=== PATIENT | female | born 1960 | race Caucasian/White ===

== ENCOUNTER 2023-07-30 11:46 | Outpatient (OUT) | payer BC, SELFPAY ==
--- NOTE | 2023-07-30 11:55 | XR_ITS ---
The [address] [address] Patient Name: CAMERON US MRN: [id number] date: 1960 Sex: F Assigned Patient Location: [facility] Current Patient Location: [facility] Accession/Order Number: [id number] Exam Date: 07/30/2023 11:58 Report Date: 07/30/2023 12:31 At the request of: HE PUAL Procedure: XR lumbar spine 2-3V EXAMINATION: XR lumbar spine 2-3V HISTORY: right-sided low back pain without sciatica M54.50 COMPARISON: No relevant comparison available. FINDINGS: BONES: No acute fracture or spondylolisthesis. Rotatory levocurvature centered at L3. Moderate degenerative spondylosis and facet osteoarthropathy DISC SPACES: Multilevel disc space narrowing with endplate sclerosis and vacuum disks PARASPINOUS: Negative. No paraspinous abnormality is seen. OTHER: Negative. XR/XR lumbar spine 2-3V IMPRESSION: Moderate diffuse degenerative changes with rotatory levocurvature Electronically authenticated by: GYPSY KING Date: 07/30/2023 12:31
== END 2023-07-30 11:47 | disposition home or self-care (01) ==
LOC: RAD 11:50
PROVIDERS: PCP Family Medicine; Visit Provider Family Medicine
DX: M54.50 Low back pain, unspecified (principal); M51.36 Other intervertebral disc degeneration, lumbar region
CPT/HCPCS: 72100

== ENCOUNTER 2023-08-03 13:26 | Outpatient (OUT) | payer BC, SELFPAY ==
--- OUTSIDE RECORDS SUMMARY | 2023-08-03 13:43 | XMS_ITS | CCD ---
Author Name Unknown Address [address] [place] [address] Organization [facility] Care Team Providers Care Rn Otolaryngology Name Role Phone Najma Ken Primary Care Provider [phone] Caden Baldwin Primary Care Provider Caden Baldwin Primary Care Provider NAJMA KEN Referring Unavailabl e NAJMA KEN Primary Care Unavailabl e NAJMA KEN Referring Unavailabl e CADEN BALDWIN Primary Care Unavailabl e Caden Baldwin Primary Care Provider Caden Baldwin MD Primary Care Provider NAJMA KEN Referring Unavailabl e CADEN BALDWIN Primary Care Unavailabl e MAO SHEPHERD O Referring Unavailable CADEN BALDWIN Primary Care Unavailabl e CADEN BALDWIN Primary Care Unavailabl e HEENA JOHN Attending Unavailable PAY, DR FERRER Admitting Unavailable PAY, DR FERRER Attending Unavailable PAY, DR FERRER Consulting Unavailable PALMER GREGORIO Consulting Unavailable FURLONG, DR LOUIE Hawkins Primary Care Unavailable MISC, DR IBRAHIM Consulting Unavailable JODY, MOHINDER Admitting Unavailable JODY, MOHINDER Attending Unavailable FURLONG, DR LOUIE Hawkins Admitting Unavailable FURLONG, DR LOUIE Hawkins Attending Unavailable FURLONG, DR LOUIE Hawkins Consulting Unavailable ASHLEE ESCUDERO Consulting Unavailable JODY, MOHINDER Primary Care Unavailable JODY, MOHINDER Admitting Unavailable JODY, MOHINDER Attending Unavailable JODY, MOHINDER Consulting Unavailable KAREN, DR IBRAHIM Admitting Unavailable BEVERLY, DR LOUIE Hawkins Primary Care Unavailable MIS, DR IBRAHIM Attending Unavailable MISC, DR IBRAHIM Consulting Unavailable DEEPTI, DR BARRON Strauss Consulting Unavailable TIMMIS, DR LARA Admitting Unavailable FURLOISIDORO, DR LOUIE Hawkins Primary Care Unavailable TIMMIAshley, DR LARA Attending Unavailable TIMMIS, DR LARA Consulting Unavailable DEEPTI, DR BARRON Strauss Consulting Unavailable MOHINDER VERA Consulting Unavailable MORTEZALOISIDORO, DR LOUIE Hawkins Primary Care Unavailable JAZMINE DODD Admitting Unavailable KHURRAM FULTON Consulting Unavailable JAZMINE DODD Attending Unavailable Gypsy Muñoz Consulting Unavailable Louie Paul DO Primary Care Provider LOUIE PAUL Attending Unavailable LOUIE PAUL Referring Unavailable LOUIE PAUL Primary Care Unavailable Allergies Allergy Classification Reported Allergen(s) Allergy Type Date of Onset Reaction(s) Facility Calcium Channel Blockers (1 source) dilTIAZem Drug Allergy 10-12-2019 Itching, Swelling, Rash [facility] (3 sources) dilTIAZem Drug Allergy 10-12-2019 Itching, Swelling, Rash [facility]- [place], [place] Medications Current Medications Medication Drug Class(es) Dates Sig (Normalized) Sig (Original) acetaminophen 325 mg oral tablet (8 sources) Start: 09-27-2021 take 2 tablets by mouth every four hours as needed acetaminophen (TYLENOL) 325 mg tablet Take 2 tablets (650 mg total) by mouth every 4 (four) hours as needed (Temperature greater than 38.3 C). 30 tablet 0 09/27/2021 Active Start: 10-06-2019 acetaminophen (TYLENOL) tablet 650 mg Start: 08-27-2019 acetaminophen (TYLENOL) tablet 650 mg Start: 08-25-2019 End: 08-28-2019 650 mg, Oral, EVERY 4 HOURS PRN, Pain Mild (1-3), Pain Mild (1- 3) or Fever greater than 100.5 F (38 C), Starting [facility] 08/25/19 at 1749 Maximum dose of acetaminophen is 4000 mg from all sources in 24 hours. Start: 08-25-2019 End: 08-25-2019 acetaminophen (TYLENOL) tabl et 1,000 mg Start: 08-05-2019 650 mg, Oral, EVERY 4 HOURS PRN, Pain Mild (1-3), Pain Mild (1-3) or Fever greater than 100.5 F (38 C), Starting 08/05/19 at 1658 Maximum dose of acetaminophen is 4000 mg from all sources in 24 hours. albuterol 0.83 mg/ml inhalation solution (11 sources) beta2-Adrenergic Agonist Start: 05-11-2023 take 3 mL by inhalation every six hours as needed for wheezing albuterol (PROVENTIL,VENTOLIN) 2.5 mg /3 mL (0.083 %) nebulizer solution Indications: Chronic respiratory failure with hypoxia ([facility]) Inhale 3 mL (2.5 mg total) by nebulization every 6 (six) hours as needed for wheezing. 75 mL 2 05/11/2023 Active Start: 09-27-2021 take 2 puff(s) by in halation four times daily albuterol (PROVENTIL HFA;VENTOLIN HFA) 90 mcg/actuation inhaler Indications: Acute exacerbation of chronic obstructive pulmonary disease (COPD) ([facility]) Inhale 2 puffs 4 (four) times a day. 18 g 11 09/27/2021 Active Start: 10-06-2019 albuterol (PRO VENTIL) nebulizer solution 2.5 mg Start: 08-08-2019 albuterol (PRO VENTIL) nebulizer solution 2.5 mg Start: 06-01-2019 End: 08-10-2019 albuterol (PROVENTIL) (2.5 M G/3ML) 0.083% nebulizer solution Indications: Cough , Moderate persistent asthma with acute exacerbation Take 3 mLs by nebulization every 6 hours as needed for Wheezing 120 each 3 06/01/2019 08/10/2019 Discontinued (Stop Taking at Discharge) albuterol sulfat e HFA 108 (90 Base) MCG/ACT inhaler Inhale 2 puffs into the lungs 0 Active albuterol 0.833 mg/ml / ipratropium bromide 0.167 mg/ml inhalation solution (9 sources) Anticholinergic, beta2-Adrenergic Agonist Start: 11-22-2020 ipratropium-albuterol (DUONEB) nebulizer solution 1 ampule Start: 10-05-2019 ipratropium-al buterol (DUONEB) nebulizer solution 1 ampule Start: 08-25-2019 End: 08-25-2019 ipratropium-albuterol (DUONE B) nebulizer solution 1 ampule Start: 08-10-2019 End: 08-29-2019 take 3 mL by inhalation every four hours 3 mL, Inhalation, EVERY 4 HOURS WHILE AWAKE, First dose on [place] 08/25/19 at 2000 Start: 08-05-2019 End: 08-07-2019 ipratropium-albuterol (DUONE B) nebulizer solution 1 ampule albuterol sulfate HFA 108 (90 Base) MCG/ACT inhaler (7 sources) take 2 puff(s) by inhalation every six hours as needed albuterol sulfate HFA 108 (90 Base) MCG/ACT inhaler Inhale 2 puffs into the lungs every 6 hours as needed 0 Active apixaban 5 mg oral tablet (15 sources) Factor Xa Inhibitor Start: take 1 tablet by mouth twice daily ELIQUIS 5 mg tablet Indications: Paroxysmal atrial fibrillation (CMS-HCC) TAKE 1 TABLET BY MOUTH TWICE A DAY 180 tablet 1 04/16/2023 Active Start: 10-01-2020 take 1 tablet by terrie th twice daily ELIQUIS 5 MG TABS tablet TAKE 1 TABLET BY MOUTH TWICE A DAY 180 tablet 1 10/01/2020 Active Start: 01-17-2020 take 1 tablet by terrie th twice daily ELIQUIS 5 MG TABS tablet TAKE 1 TABLET BY MOUTH TWICE A DAY 180 tablet 1 01/17/2020 Active Start: 07-20-2019 take 1 tablet by terrie th twice daily apixaban (ELIQUIS) 5 MG TABS tablet Take 1 tablet by mouth 2 times daily 180 tablet 1 07/20/2019 Active Start: 02-01-2019 take 1 tablet by terrie th twice daily apixaban (ELIQUIS) 5 MG TABS tablet Take 1 tablet by mouth 2 times daily 180 tablet 1 02/01/2019 Active ascorbic acid 60 mg / beta carotene 5000 unt / copper sulfate 40 mg / dl-alpha tocopheryl acetate 30 unt / sodium selenite 0.04 mg / zinc oxide 40 mg oral tablet (2 sources) Vitamin C take 1 tablet by mouth once daily Multiple Vitamins-Minerals (THERAPEUTIC MULTIVITAMIN-MINERALS) tablet Take 1 tablet by mouth daily 0 Active azithromycin 250 mg oral tablet (1 source) Macrolide Antimicrobial Start: 2019 End: 2019 azithromycin (ZITHROMAX) 250 MG tablet Indications: COPD exacerbation (HCC) Take 2 tablets (500 mg) on Day 1, followed by 1 tablet (250 mg) once daily on Days 2 through 5. 1 packet 0 11/02/2019 11/12/2019 Active benzonatate 200 mg oral capsule (6 sources) Non-narcotic Antitussive Start: 2019 End: 2019 take 1 capsule by mouth three times daily benzonatate (TESSALON) 200 MG capsule Take 1 capsule by mouth 3 times daily 90 capsule 0 10/08/2019 11/07/2019 Active Start: 10-05-2019 benzonatate (T ESSALON) capsule 200 mg Start: 08-26-2019 End: 09-05-2019 take 1 capsule by mouth three times daily as needed for cough benzonatate (TESSALON) 100 MG capsule Take 1 capsule by mouth 3 times daily as needed for Cough 60 capsule 0 08/29/2019 09/05/2019 Active Start: 08-06-2019 End: 08-09-2019 benzonatate (TESSALON) capsu le 200 mg 60 actuat budesonide 0.16 mg/actuat / formoterol fumarate 0.0045 mg/actuat metered dose inhaler (10 sources) Corticosteroid, beta2-Adrenergic Agonist Start: 06-01-2019 End: 08-10-2019 take 2 puff(s) by inhalation twice daily budesonide-formoterol (SYMBICORT) 160-4.5 MCG/ACT AERO Indications: Cough Inhale 2 puffs into the lungs 2 times daily 3 Inhaler 1 08/10/2019 Active 120 actuat budesonide 0.16 mg/actuat / formoterol fumarate 0.0048 mg/actuat / glycopyrrolate 0.009 mg/actuat metered dose inhaler (4 sources) Corticosteroid, beta2-Adrenergic Agonist Start: 07-19-2023 take 2 puff(s) by inhalation at bedtime krohtpxxjc-mvayfmqc-rvo moterol (BREZTRI AEROSPHERE) 160-9-4.8 mcg/actuation HFA aerosol inhaler Indications: Acute exacerbation of chronic obstructive pulmonary disease (COPD) ([facility]) INHALE 2 PUFFS IN THE MORNING AND AT BEDTIME 10.7 g 0 07/19/2023 Active Start: 03-31-2023 End: 07-19-2023 take 2 puff(s) by inhalation at bedtime dbvahpxovu-xpkensnp-qdlcioqrsq (BREZTRI AEROSPHERE) 160-9-4.8 mcg/actuation HFA aerosol inhaler Indications: Acute exacerbation of chronic obstructive pulmonary disease (COPD) ([facility]) Inhale 2 puffs in the morning and at bedtime. 17.7 g 1 03/31/2023 07/19/2023 Discontinued cefuroxime 250 mg oral tablet (1 source) Cephalosporin Antibacterial Start: 08-10-2019 End: 08-15-2019 take 1 tablet by mouth twice daily cefUROXime (CEFTIN) 250 MG tablet Take 1 tablet by mouth 2 times daily for 5 days 10 tablet 0 08/10/2019 08/15/2019 Active cholecalciferol 0.125 mg oral tablet (3 sources) Vitamin D Start: 12-22-2022 take 1 tablet by mouth once in the morning cholecalciferol, vitamin D3, 5,000 units tablet Indications: Vitamin D deficiency Take 1 tablet (5,000 Units total) by mouth in the morning. 100 tablet 0 12/22/2022 Active diazePAM 5 mg oral tablet (1 source) Benzodiazepine Start: 03-21-2020 End: 03-30-2020 diazePAM (VALIUM) 5 MG tablet Indications: Shoulder pain, unspecified chronicity, unspecified laterality Take one tablet one hour prior to testing 1 tablet 0 03/21/2020 03/30/2020 Active diclofenac sodium 0.01 mg/mg topical gel (3 sources) Nonsteroidal Anti-inflammatory Drug Start: 03-14-2020 End: 05-10-2020 diclofenac sodium (VOLTAREN) 1 % GEL Indications: Osteoarthritis of right acromioclavicular joint APPLY 2 G TOPICALLY 4 TIMES DAILY 300 g 0 04/10/2020 Active 24 hr dilTIAZem hydrochloride 120 mg extended release oral capsule (15 sources) Calcium Channel Royer Start: 05-11-2023 take 1 capsule by mouth every twenty-four hours in the morning dilTIAZem CD (CARDIZEM CD) 120 mg 24 hr capsule Indications: Paroxysmal atrial fibrillation ([facility]) Take 1 capsule (120 mg total) by mouth in the morning. 90 capsule 1 05/11/2023 Active Start: 10-08-2020 take 1 capsule by mo uth once daily dilTIAZem (CARDIZEM CD) 120 MG extended release capsule TAKE 1 CAPSULE BY MOUTH EVERY DAY 90 capsule 0 10/08/2020 Active Start: 04-12-2020 take 1 capsule by mo uth once daily dilTIAZem (CARDIZEM CD) 120 MG extended release capsule Take 1 capsule by mouth daily 30 capsule 2 04/12/2020 Active Start: 11-28-2019 [facility] dilTIAZem (CARDIZEM) 30 MG tablet Indications: Cough , Moderate persistent asthma with acute exacerbation TAKE 1 TABLET BY MOUTH FOUR TIMES A DAY 360 tablet 1 11/28/2019 Active Start: 08-26-2019 dilTIAZem (CAR DIZEM) tablet 60 mg Start: 08-06-2019 End: 08-26-2019 take 1 tablet by mouth four times daily dilTIAZem (CARDIZEM) 30 MG tablet Indications: Cough , Moderate persistent asthma with acute exacerbation Take 1 tablet by mouth 4 times daily 120 tablet 3 08/10/2019 Active doxycycline hyclate 100 mg oral tablet (1 source) Tetracycline-class Drug Start: 09-15-2019 End: 09-25-2019 take 1 tablet by mouth twice daily doxycycline hyclate (VIBRA-TABS) 100 MG tablet Take 1 tablet by mouth 2 times daily for 10 days 20 tablet 0 09/15/2019 09/25/2019 Active DULoxetine 20 mg delayed release oral capsule (16 sources) Serotonin and Norepinephrine Reuptake Inhibitor Start: 04-27-2023 take 1 capsule by mouth once daily DULoxetine (CYMBALTA) 20 mg capsule Indications: Fibromyalgia TAKE 1 CAPSULE BY MOUTH EVERY NIGHT 90 capsule 1 04/27/2023 Active Start: 11-09-2020 take 1 capsule by mo [facility] once daily DULoxetine (CYMBALTA) 20 MG extended release capsule TAKE 1 CAPSULE BY MOUTH EVERY DAY AT NIGHT 90 capsule 0 11/09/2020 Active Start: 02-21-2020 take 1 capsule by mo uth once daily DULoxetine (CYMBALTA) 20 MG extended release capsule TAKE 1 CAPSULE BY MOUTH EVERY DAY AT NIGHT 90 capsule 0 02/21/2020 Active Start: 10-21-2019 take 1 capsule by mo uth once daily DULoxetine (CYMBALTA) 20 MG extended release capsule Take 1 capsule by mouth nightly 30 capsule 1 10/21/2019 Active Start: 03-18-2019 End: 08-05-2019 take 1 capsule by mouth once daily 20 mg, Oral, NIGHTLY, First dose on Thu10/05/19 at 2100 Do not crush or break. May add contents of capsule to apple juice or apple sauce, but not chocolate. famotidine 20 mg oral tablet (2 sources) Histamine-2 Receptor Antagonist Start: 10-06-2019 famotidine (PEPCID) tablet 20 mg Start: 08-25-2019 take 20 mg by mouth twice nabil y 20 mg, Oral, 2 TIMES DAILY, First dose on Thu08/25/19 at 2100 fluticasone propionate 0.05 mg/actuat metered dose nasal spray (4 sources) Corticosteroid Start: 01-15-2023 End: 07-15-2023 take 1 spray(s) nasal route in the morning fluticasone propionate (FLONASE) 50 mcg/actuation nasal spray Indications: Chronic rhinitis SPRAY 1 SPRAY INTO EACH NOSTRIL IN THE MORNING 48 mL 1 07/15/2023 Active gabapentin 300 mg oral capsule (5 sources) Anti-epileptic Agent Start: 10-17-2020 End: 01-15-2021 take 1 capsule by mouth three times daily gabapentin (NEURONTIN) 300 MG capsule Take 1 capsule by mouth 3 times daily for 90 days. 90 capsule 2 10/17/2020 01/15/2021 Active Start: 10-08-2019 End: 11-07-2019 take 2 capsules by mouth three times daily gabapentin (NEURONTIN) 100 MG capsule Take 2 capsules by mouth 3 times daily for 30 days. 90 capsule 0 10/08/2019 11/07/2019 Active Start: 10-07-2019 gabapentin (NE URONTIN) capsule 200 mg Start: 10-06-2019 End: 10-07-2019 take 100 mg by mouth three times daily 100 mg, Oral, 3 TIMES DAILY, First dose on [place] 10/06/19 at 1400 12 hr guaiFENesin 600 mg extended release oral tablet (8 sources) Start: 10-05-2019 take 1200 mg by mouth twice daily 1,200 mg, Oral, 2 TIMES DAILY, First dose on Thu10/05/19 at 2100 Do not crush or break. Start: 08-25-2019 End: 08-26-2019 take 1200 mg by mouth twice daily 1,200 mg, Oral, 2 TIMES DAILY, First dose on Thu08/25/19 at 2100 Do not crush or break. Start: 08-10-2019 take 2 tablets by mo uth twice daily guaiFENesin (MUCINEX) 600 MG extended release tablet Take 2 tablets by mouth 2 times daily 20 tablet 1 08/10/2019 Active Start: 08-09-2019 guaiFENesin (M UCINEX) extended release tablet 1,200 mg Handicap Placard MISC (1 source) Start: 08-08-[address] MISC by Does not apply route 1 each 0 08/08/2020 Active homatropine methylbromide 0.3 mg/ml / HYDROcodone bitartrate 1 mg/ml oral solution (6 sources) Opioid Agonist, Cholinergic Muscarinic Agonist Start: 10-05-2019 HYDROcodone-homatrop ine (HYCODAN) 5-1.5 MG/5ML syrup 5 mL Start: 08-29-2019 End: 09-05-2019 HYDROcodone-homatropine (HYC ODAN) 5-1.5 MG/5ML syrup Indications: COPD with acute exacerbation (HCC) Take 5 mLs by mouth every 4 hours as needed (cough) for up to 7 days. 200 mL 0 08/29/2019 09/05/2019 Active Start: 08-25-2019 HYDROcodone-ho matropine (HYCODAN) 5-1.5 MG/5ML syrup 5 mL Start: 08-10-2019 End: 08-13-2019 HYDROcodone-homatropine (HYC ODAN) 5-1.5 MG/5ML syrup Indications: COPD exacerbation (HCC) Take 5 mLs by mouth every 4 hours as needed (120) for up to 3 days. 60 mL 0 08/10/2019 08/13/2019 Active Start: 08-06-2019 End: 08-08-2019 HYDROcodone-homatropine (HYC ODAN) 5-1.5 MG/5ML syrup 5 mL ipratropium bromide 0.2 mg/ml inhalant solution (1 source) Anticholinergic Start: 08-26-2019 ipratropium (ATROVENT) 0.02 % nebulizer solution 0.5 mg Lactobacillus acidophilus (3 sources) take 1 tablet by mouth once daily Lactobacillus acidophilus (PROBIOTIC ACIDOPHILUS ORAL) Take 1 tablet by mouth daily. 0 Active levalbuterol 0.417 mg/ml inhalation solution (6 sources) beta2-Adrenergic Agonist Start: 08-31-2020 levalbuterol (XOPENEX) 1.25 MG/3ML nebulizer solution Take 3 mLs by nebulization every 4 hours as needed for Wheezing 90 mL 1 08/31/2020 Active Start: 08-26-2019 levalbuterol ( XOPENEX) 1.25 MG/0.5ML nebulizer solution 1.25 mg 0 08/26/2019 Active levothyroxine sodium 0.125 mg oral tablet (16 sources) l-Thyroxine Start: 12-11-2022 take 1 tablet by mouth once daily levothyroxine (SYNTHROID, LEVOTHROID) 125 MCG tablet Indications: Hypothyroidism, unspecified TAKE 1 TABLET BY MOUTH EVERY DAY 90 tablet 1 12/11/2022 Active Start: 06-12-2020 take 1 tablet by terrie th once daily levothyroxine (SYNTHROID) 125 MCG tablet TAKE 1 TABLET BY MOUTH EVERY DAY 90 tablet 1 06/12/2020 Active Start: 11-25-2019 take 1 tablet by terrie th once daily levothyroxine (SYNTHROID) 125 MCG tablet Take 1 tablet by mouth Daily 90 tablet 1 11/25/2019 Active Start: 10-08-2019 levothyroxine (SYNTHROID) tablet 100 mcg Start: 05-12-2019 End: 10-07-2019 take 1 tablet by mouth once daily levothyroxine (SYNTHROID) 125 MCG tablet Take 1 tablet by mouth Daily 30 tablet 5 05/12/2019 Active Start: 11-24-2018 take 1 tablet by terrie th once daily in the morning levothyroxine (SYNTHROID) 100 MCG tablet TAKE 1 TABLET BY MOUTH EVERY DAY ON EMPTY STOMACH IN THE MORNING 1 11/24/2018 Active 100 ml magnesium sulfate 10 mg/ml injection (2 sources) Start: 08-27-2019 magnesium sulf ate 1 g in dextrose 5% 100 mL IVPB Start: 08-05-2019 End: 08-05-2019 magnesium sulfate 1 g in dex trose 5% 100 mL IVPB meclizine hydrochloride 12.5 mg oral tablet (1 source) Antiemetic Start: 04-12-2020 End: 04-22-2020 take 1 tablet by mouth three times daily as needed for nausea meclizine (ANTIVERT) 12.5 MG tablet Take 1 tablet by mouth 3 times daily as needed for Dizziness or Nausea 30 tablet 0 04/12/2020 04/22/2020 Active montelukast 10 mg oral tablet (7 sources) Leukotriene Receptor Antagonist Start: 06-01-2019 take 10 mg by mouth once daily 10 mg, Oral, NIGHTLY, First dose on Thu08/05/19 at 2100 Multiple Vitamins-Minerals (THERAPEUTIC MULTIVITAMIN-MINERA LS) tablet (7 sources) take 1 tablet by mouth once daily Multiple Vitamins-Minerals (THERAPEUTIC MULTIVITAMIN-MINE RALS) tablet Take 1 tablet by mouth daily 0 Active 24 hr nicotine 0.292 mg/hr transdermal system (3 sources) Cholinergic Nicotinic Agonist Start: 06-01-2019 End: 08-25-2019 apply 1 dose transdermal route once daily 1 patch, Transdermal, Administer over 24 Hours, DAILY, First dose on Thu08/05/19 at 1845 Apply new patch to nonhairy, clean, dry skin on the upper body or upper outer arm. Rotate patch sites. Notif y pharmacy if patient or provider prefers patch to be removed at bedtime and replaced in the morning. Haz ardous Medication -- Refer to facility policy for handling and disposal. &n bsp; omeprazole 20 mg delayed release oral capsule (3 sources) Proton Pump Inhibitor take 1 capsule by mouth in the morning omeprazole (PriLOSEC) 20 mg capsule Take 1 capsule (20 mg total) by mouth in the morning. 0 Active oseltamivir 75 mg oral capsule (2 sources) Neuraminidase Inhibitor Start: 08-26-2019 End: 08-31-2019 take 1 capsule by mouth twice daily oseltamivir (TAMIFLU) 75 MG capsule Take 1 capsule by mouth 2 times daily for 1 day 2 capsule 0 08/29/2019 08/30/2019 Active polyethylene glycol 3350 54487 mg powder for oral solution (1 source) Osmotic Laxative Start: 08-27-2019 polyethylene glycol (GLYCOLAX) packet 17 g Potassium Chloride (1 source) Start: 08-27-2019 potassium chloride (KLOR-CON M) extended release tablet 40 mEq predniSONE 20 mg oral tablet (10 sources) Start: 11-22-2020 End: 11-27-2020 take 2 tablets by mouth once daily predniSONE (DELTASONE) 20 MG tablet Take 2 tablets by mouth daily for 5 days 10 tablet 0 11/22/2020 11/27/2020 Active Start: 11-02-2019 End: 11-12-2019 take 4 tablets by mouth once daily predniSONE (DELTASONE) 10 MG tablet Take 4 tablets by mouth once daily for 5 days 20 tablet 0 11/02/2019 11/12/2019 Active Start: 10-07-2019 End: 10-18-2019 take 1 tablet by mouth once daily predniSONE (DELTASONE) 20 MG tablet Take 1 tablet by mouth daily for 10 days 10 tablet 0 10/08/2019 10/18/2019 Active Start: 08-28-2019 End: 09-09-2019 take 1 tablet by mouth once daily predniSONE (DELTASONE) 20 MG tablet Take 1 tablet by mouth daily for 10 days 10 tablet 0 08/30/2019 09/09/2019 Active Start: 08-11-2019 End: 09-16-2019 take 4 tablets by mouth twice daily, then take 2 tablets by mouth twice daily, then take 1 tablet by mouth once daily predniSONE (DELTASONE) 5 MG tablet Take 4 tablets by mouth 2 times daily for 3 days, THEN 2 tablets 2 times daily for 3 days, THEN 1 tablet daily. 66 tablet 0 08/11/2019 08/25/2019 Discontinued (LIST CLEANUP) Start: 08-10-2019 predniSONE (DE LTASONE) tablet 40 mg Start: 08-10-2019 End: 08-20-2019 take 2 tablets by mouth once daily predniSONE (DELTASONE) 20 MG tablet Take 2 tablets by mouth daily for 10 days 20 tablet 0 08/10/2019 08/20/2019 Active Promethazine (1 source) Phenothiazine Start: 08-27-2019 promethazine ( PHENERGAN) tablet 12.5 mg 3 ml sodium chloride 9 mg/ml injection (15 sources) Start: 08-27-2019 sodium chlorid e flush 0.9 % injection 10 mL Start: 08-26-2019 sodium chlorid e nebulizer 0.9 % solution 3 mL Start: 08-25-2019 End: 08-29-2019 10 mL, Intravenous, EVERY 12 HOURS SCHEDULED (2 times per day), First dose on Thu08/25/19 at 2100 Start: 08-25-2019 1 spray, Nasal , PRN, Congestion, Starting Thu08/25/19 at 1801 Start: 08-25-2019 End: 08-27-2019 Intravenous, at 75 mL/hr, CONTINUOUS, Starting Thu08/25/19 at 1830 Start: 08-25-2019 End: 08-25-2019 0.9 % sodium chloride bolus Start: 08-10-2019 End: 08-29-2019 sodium chloride (OCEAN, BABY AYR) 0.65 % nasal spray 1 spray by Nasal route as needed for Congestion 15 mL 0 08/10/2019 08/29/2019 Discontinued (Stop Taking at Discharge) Start: 08-08-2019 End: 08-08-2019 0.9 % sodium chloride infusi on Start: 08-07-2019 sodium chlorid e (OCEAN, BABY AYR) 0.65 % nasal spray 1 spray Start: 08-06-2019 End: 08-06-2019 0.9 % sodium chloride bolus Start: 08-05-2019 10 mL, Intrave nous, EVERY 12 HOURS SCHEDULED (2 times per day), First dose on Thu08/05/19 at 2100 Start: 08-05-2019 take 10 mL intraveno us route once as needed 10 mL, Intravenous, PRN, Line Care, After every IV line use, Starting Thu08/05/19 at 1658 sulfamethoxazole 800 mg / trimethoprim 160 mg oral tablet (2 sources) Dihydrofolate Reductase Inhibitor Antibacterial, Sulfonamide Antimicrobial Start: 10-08-2019 End: 10-18-2019 take 1 tablet by mouth every twelve hours sulfamethoxazole-trimethoprim (BACTRIM DS;SEPTRA DS) 800-160 MG per tablet Take 1 tablet by mouth every 12 hours for 10 days 20 tablet 0 10/08/2019 10/18/2019 Active Start: 10-07-2019 sulfamethoxazo le-trimethoprim (BACTRIM DS;SEPTRA DS) 800-160 MG per tablet 1 tablet therapeutic multivitamin-minerals 1 tablet (3 sources) Start: 10-05-2019 take 1 tablet by mouth once daily 1 tablet, Oral, DAILY, First dose on Thu10/05/19 at 1545 Start: 08-25-2019 take 1 tablet by mouth once da win 1 tablet, Oral, DAILY, First dose on [place] 08/25/19 at 1830 Start: 08-05-2019 take 1 tablet by mouth once da win 1 tablet, Oral, DAILY, First dose on Thu08/05/19 at 1845 10 actuat tiotropium 0.0025 mg/actuat inhalation spray (8 sources) Anticholinergic Start: 05-10-2020 take 2 puff(s) by inhalation once daily tiotropium (SPIRIVA RESPIMAT) 2.5 MCG/ACT AERS inhaler Inhale 2 puffs into the lungs daily 1 Inhaler 2 05/10/2020 Active Start: 10-05-2019 take 2 puff(s) by in halation once daily 2 puff, Inhalation, DAILY, First dose on Thu10/05/19 at 1545 take 2 puff(s) by in halation once daily tiotropium (SPIRIVA RESPIMAT) 2.5 MCG/ACT AERS inhaler Inhale 2 puffs into the lungs daily 0 Active Completed/Discontinued Medications Medication Drug Class(es) Dates Sig (Normalized) Sig (Original) acetaminophen 300 mg / codeine phosphate 30 mg oral tablet (2 sources) Opioid Agonist Start: 08-07-2019 End: 08-09-2019 acetaminophen-cod eine (TYLENOL #3) 300-30 MG per tablet 1 tablet acetaminophen 325 mg / HYDROcodone bitartrate 5 mg oral tablet (1 source) Opioid Agonist Start: 08-07-2019 End: 08-08-2019 HYDROcodone-aceta minophen (NORCO) 5-325 MG per tablet 1 tablet azithromycin (ZITHROMAX) 500 mg in D5W 250ml addavial (1 source) Start: 08-05-2019 End: 08-10-2019 azithromycin (ZITHROMAX) 500 mg in D5W 250ml addavial calcium chloride 0.0014 meq/ml / potassium chloride 0.004 meq/ml / sodium chloride 0.103 meq/ml / sodium lactate 0.028 meq/ml injectable solution (1 source) Start: 10-06-2019 End: 10-06-2019 lactated ringers infusion cefTRIAXone (ROCEPHIN) 1 g IVPB in 50 mL D5W minibag (1 source) Start: 08-05-2019 End: 08-10-2019 cefTRIAXone (ROCEPHIN) 1 g IVPB in 50 mL D5W minibag dornase kimmy 1 mg/ml inhalant solution (1 source) Recombinant Human Deoxyribonuclease 1 Start: 08-09-2019 End: 08-10-2019 dornase alpha (PULMOZYME) nebulizer solution 2.5 mg 1 ml ketorolac tromethamine 30 mg/ml cartridge (1 source) Nonsteroidal Anti-inflammatory Drug, Cyclooxygenase Inhibitor Start: 08-25-2019 End: 08-25-2019 ketorolac (TORADOL) injection 15 mg Start: 08-25-2019 End: 08-25-2019 ketorolac (TORADOL) injectio n 15 mg 5 ml lidocaine hydrochloride 40 mg/ml injection (2 sources) Antiarrhythmic, Amide Local Anesthetic Start: 10-06-2019 End: 10-06-2019 lidocaine PF 4 % injection 4 mL Start: 08-08-2019 End: 08-08-2019 lidocaine PF 4 % injection 4 mL magnesium gluconate 550 mg oral tablet (2 sources) End: 08-05-2019 take 1 tablet by mouth once daily magnesium 30 MG tablet Take 30 mg by mouth daily 0 08/05/2019 Discontinued (LIST CLEANUP) methylPREDNISolone 4 mg oral tablet (9 sources) Corticosteroid Start: 05-11-2023 End: 07-30-2023 take 1 tablet by mouth in the morning methylPREDNISolone (MEDROL, WILLIAM,) 4 mg tablet Indications: Upper respiratory disease Take 1 tablet (4 mg total) by mouth in the morning. follow package directions. 21 tablet 0 05/11/2023 07/30/2023 Discontinued (Therapy completed) Start: 11-22-2020 End: 11-22-2020 methylPREDNISolone sodium (S MACEY-MEDROL) injection 125 mg Start: 10-05-2019 End: 10-07-2019 methylPREDNISolone sodium (S MACEY-MEDROL) injection 40 mg Start: 08-26-2019 End: 08-28-2019 methylPREDNISolone sodium (S MACEY-MEDROL) injection 40 mg Start: 08-25-2019 End: 08-25-2019 methylPREDNISolone sodium (S MACEY-MEDROL) injection 125 mg Start: 08-05-2019 End: 08-10-2019 methylPREDNISolone sodium (S MACEY-MEDROL) injection 60 mg Start: 08-05-2019 End: 08-05-2019 methylPREDNISolone sodium (S MACEY-MEDROL) injection 125 mg 5 ml metoprolol tartrate 1 mg/ml injection (1 source) beta-Adrenergic Royer Start: 10-06-2019 End: 10-06-2019 metoprolol (LOPRESSOR) injection 5 mg Start: 10-06-2019 End: 10-06-2019 metoprolol (LOPRESSOR) injec tion 5 mg 2 ml ondansetron 2 mg/ml injection (2 sources) Serotonin-3 Receptor Antagonist Start: 08-25-2019 End: 08-25-2019 ondansetron (ZOFRAN) injection 4 mg Start: 08-25-2019 End: 08-25-2019 ondansetron (ZOFRAN) 4 MG/2M L injection triamcinolone acetonide 1 mg/ml topical cream (3 sources) Corticosteroid Start: 06-01-2022 End: 07-30-2023 triamcinolone (KENALOG) 0.1 % cream Indications: Dermatitis, unspecified APPLY THIN COAT TO AFFECTED AREA TWICE A DAY 45 g 0 06/01/2022 07/30/2023 Discontinued (Therapy completed) Problems Active Problems Problem Classification Problem Date Documented Date Episodic/Chronic Asthma (1 source) Acute exacerbation of moderate persistent asthma; Translations: [Moderate persistent asthma with acute exacerbation] Chronic Chronic obstructive pulmonary disease and bronchiectasis (20 sources) Acute exacerbation of chronic obstructive airways disease; Translations: [Chronic obstructive pulmonary disease with (acute) exacerbation] Onset: 08-05-2019 Resolved: 12-22-2022 08-26-2019 Chronic Complications of surgical procedures or medical care (16 sources) Postoperative hypothyroidism; Translations: [Postprocedural hypothyroidism] Onset: 02-01-2019 08-26-2019 Chronic Conditions associated with dizziness or vertigo (1 source) Dizziness; Translations: [Dizziness] Episodic Genitourinary symptoms and ill-defined conditions (3 sources) Genuine stress incontinence; Translations: [Stress incontinence (female) (male)] Onset: 01-01-2022 01-01-2022 Chronic Osteoarthritis (1 source) Osteoarthritis of right acromioclavicular joint; Translations: [Osteoarthritis of right acromioclavicular joint] Other connective tissue disease (1 source) Imaging of thorax abnormal; Translations: [Abnormal CXR] Episodic Other connective tissue disease (8 sources) Trigger finger; Translations: [Trigger finger] Onset: 02-01-2019 02-01-2019 Other nervous system disorders (12 sources) Carpal tunnel syndrome; Translations: [Carpal tunnel syndrome, unspecified upper limb] Onset: 02-01-2019 02-01-2019 Chronic Other nutritional; endocrine; and metabolic disorders (1 source) Excessive thirst; Translations: [Polydipsia] Episodic Other skin disorders (4 sources) Localized swelling, mass and lump, neck; Translations: [LOCALIZED SWELLING MASS AND LUMP NECK] Onset: 10-04-2021 Episodic Other upper respiratory disease (1 source) Chronic rhinitis; Translations: [Chronic rhinitis] 07-14-2023 Chronic Other upper respiratory infections (1 source) Chronic sinusitis, unspecified; Translations: [CHRONIC SINUSITIS UNSPECIFIED] Onset: 2021 Chronic Residual codes; unclassified (4 sources) Obstructive sleep apnea (adult) (pediatric); Translations: [OBSTRUCTIVE SLEEP APNEA] Onset: 12-16-2021 Chronic Residual codes; unclassified (1 source) Obstructive sleep apnea syndrome; Translations: [Obstructive sleep apnea (adult) (pediatric)] 07-30-2023 Chronic Respiratory failure; insufficiency; arrest (adult) (13 sources) Chronic hypoxemic respiratory failure; Translations: [Chronic respiratory failure with hypoxia] Onset: 10-07-2019 Resolved: 12-22-2022 10-07-2019 Chronic Spondylosis; intervertebral disc disorders; other back problems (1 source) Low back pain; Translations: [Right-sided low back pain without sciatica, unspecified chronicity] 07-30-2023 Episodic Substance-related disorders (4 sources) Nicotine dependence, cigarettes, uncomplicated; Translations: [Smoker] Onset: 2021 10-02-2022 Chronic Unclassified (2 sources) Patient encounter status; Translations: [Encounter for screening for diabetes mellitus] Unclassified (4 sources) COUGH, UNSPECIFIED; Translations: [COUGH, UNSPECIFIED] Onset: 07-04-2021 Unclassified (4 sources) CONTACT W/AND (SUSP) EXPOS COVID-19; Translations: [CONTACT W/AND (SUSP) EXPOS COVID-19] Onset: 2021 Unclassified (1 source) Low back pain, unspecified; Translations: [Low back pain, unspecified] Onset: 07-30-2023 Unclassified (1 source) discuss pain. back down to hip and up to the neck. Onset: 07-30-2023 Viral infection (1 source) COVID-19; Translations: [COVID-19] Onset: 07-04-2021 Past or Other Problems Problem Classification Problem Date Documented Da te Episodic/Chronic Cardiac dysrhythmias (12 sources) Tachycardia; Translations: [Tachycardia, unspecified] Onset: 08-26-2019 08-26-2019 Episodic Influenza (9 sources) Influenza due to Influenza A virus; Translations: [Influenza] Onset: 08-25-2019 Resolved: 09-25-2019 08-26-2019 Episodic Mood disorders (3 sources) Mood disorders Onset: 05-11-2023 Resolved: 07-30-2023 05-11-2023 Nausea and vomiting (4 sources) Nausea with vomiting, unspecified; Translations: [NAUSEA WITH VOMITING UNSPECIFIED] Onset: 07-02-2021 Episodic Other aftercare (1 source) Other termination clerk (current) drug therapy; Translations: [OTH SENIOR CARE CURRENT DRUG THERAPY] Onset: 07-04-2021 Episodic Other aftercare (1 source) retirement (current) use of anticoagulants; Translations: [BUSINESS DIVISION CHAIR CURRNT USE ANTICOAGULANTS] Onset: 07-04-2021 Episodic Other connective tissue disease (1 source) Trigger finger; Translations: [Trigger finger, unspecified finger] Onset: 02-01-2019 02-01-2019 Episodic Other connective tissue disease (3 sources) Triggering of digit; Translations: [Trigger finger, unspecified finger] Onset: 02-01-2019 06-02-2022 Episodic Other lower respiratory disease (3 sources) Cough; Translations: [Cough] Onset: 03-02-2021 Episodic Other lower respiratory disease (2 sources) Cough; Translations: [COUGH] Onset: 2021 Episodic Other upper respiratory infections (2 sources) Viral upper respiratory tract infection; Translations: [Acute upper respiratory infection, unspecified] Onset: 2021 Episodic Pneumonia (except that caused by tuberculosis or sexually transmitted disease) (3 sources) Pneumonia; Translations: [Pneumonia, unspecified organism] Resolved: 12-22-2022 12-22-2022 Episodic Respiratory failure; insufficiency; arrest (adult) (1 source) Acute respiratory failure; Translations: [Acute respiratory failure with hypoxia (HCC)] Episodic Unclassified (1 source) COUGH, UNSPECIFIED; Translations: [COUGH, UNSPECIFIED] Onset: 09-12-2021 Unclassified (1 source) CONTACT W/AND (SUSP) EXPOS COVID-19; Translations: [CONTACT W/AND (SUSP) EXPOS COVID-19] Onset: 06-25-2021 Unclassified (3 sources) Onset: 08-18-2022 08-18-2022 Results Test Name Value Interpretation Reference Range Facility XR Lumbar spine 2 or 3 Views Ordered By: Edilma Cuevas on 07-30-2023 [facility] Radiology Study observation (narrative) [facility] CT NECK ST W CONon CT NECK ST W CON EXAMINATION: CT NECK ST W CON HISTORY: Mass of neck ; left neck mass and cough for 6 months COMPARISON: CT neck soft tissue with contrast 01/24/2015 TECHNIQUE: Axial, Coronal, and Sagittal CT images created with IV contrast. Dose reduction techniques were achieved by using automated exposure control and/or adjustment of mA and/or kV according to patient size and/or use of iterative reconstruction technique. FINDINGS: NASOPHARYNX: No asymmetry of the fossae of Rosenmuller and torus tubarius. ORAL CAVITY: No visible mass. OROPHARYNX: No asymmetry of the facial and lingual tonsils. HYPOPHARYNX: No mass or other visible lesion. LARYNX: No mass or asymmetry of the vocal cords. SINUSES: No significant fluid or mucosal thickening. NECK GLADS: Prior resection of the left parotid gland with residual scarring and surgical clips. LYMPH NODES: No pathological-appearing or enlarged lymph nodes. VASCULATURE: No suspicious abnormality. BONES: C5-6, C6-C7 moderate marked degenerative disc disease. No fracture or bone lesion. OTHER: Skin surface marker localizing the palpable lump is present over the anterior left neck below level of mandible. No underlying mass, fluid collection, or appreciable changes within the fat. IMPRESSION: 1. No abnormal or suspicious findings corresponding to patient's palpable lump. 2. Prior left parotidectomy. Electronically authenticated by: BARRON TATUM Date: 2021-10-04 09:24 Normal [facility] COMPREHENSIVE METABOLIC PANE Deven 09-19-2021 Albumin [Mass/Vol] 3.9 g/dL Normal 3.6-5.1 [facility] Comment on above: Performed By: #### 7 600, [id number], 54551 #### [facility] of [address], [address] [place] [address] Engine Lathe Set Up Operator Tool: Chalino Levy MD Albumin/Globulin [Mass ratio] 1.3 {ratio} Normal 1.0-2.5 [facility] Comment on above: Performed By: #### 7 600, 95771, 44317 #### [facility] of [place] [address] [employer] Lathe Set Up Operator Tool: Chalino Levy MD ALP [Catalytic activity/Vol] 71 U/L Normal 37-153 [facility] Comment on above: Performed By: #### 7 600, 06920, 36722 #### [facility] [address], [address] [place] [address] Engine Lathe Set Up Operator Tool: Chalino Levy MD ALT [Catalytic activity/Vol] 9 U/L Normal 6-29 [facility] Comment on above: Performed By: #### 7 600, 32350, 02178 #### [facility] [address], [address] [place] [address] Engine Lathe Set Up Operator Tool: Chalino Levy MD AST [Catalytic activity/Vol] 10 U/L Normal 10-35 [facility] Comment on above: Performed By: #### 7 600, 90149, 57888 #### [facility] [place] [address] Engine Lathe Set Up Operator Tool: Chalino Levy MD Bilirubin [Mass/Vol] 0.6 mg/dL Normal 0.2-1.2 [facility] Comment on above: Performed By: #### 7 600, 00672, 84030 #### [facility] of [place] [address] [employer] Lathe Set Up Operator Tool: Chalino Levy MD BUN/CREATININE RATIO NOT APPLICABLE Normal 6-22 [facility] Comment on above: Performed By: #### 7 600, 54259, 99427 #### [facility] [place] [address] Engine Lathe Set Up Operator Tool: Chalino Levy MD Calcium [Mass/Vol] 9.0 mg/dL Normal 8.6-10.4 [facility] Comment on above: Performed By: #### 7 600, 97636, 56918 #### [facility] [address], [address] [place] [address] Engine Lathe Set Up Operator Tool: Chalino Levy MD Chloride [Moles/Vol] 103 mmol/L Normal 98-110 [facility] Comment on above: Performed By: #### 7 600, 51871, 14021 #### [facility] [address], [address] [place] [address] Engine Lathe Set Up Operator Tool: Chalino Levy MD CO2 [Moles/Vol] 31 mmol/L Normal 20-32 [facility] Comment on above: Performed By: #### 7 600, 91331, 84486 #### [facility] [place] [address] Engine Lathe Set Up Operator Tool: Chalino Levy MD Creatinine [Mass/Vol] 0.79 mg/dL Normal 0.50-0.99 [facility] Comment on above: Result Comment: For patients >49 years of age, the reference limit for Creatinine is approximately 13% higher for people identified as -Z[place]an. Performed By: #### 7 600, 87510, 93198 #### [facility] [place] [address] Engine Lathe Set Up Operator Tool: Chalino Levy MD eGFR NON-AFR. SPANISH 80 mL/min/1.73m2 Normal > OR = 60 [facility] Comment on above: Performed By: #### 7 600, 63935, 08231 #### [facility] [address], [address] [place] [address] Engine Lathe Set Up Operator Tool: Chalino Levy MD GFR/1.73 sq M.predicted among blacks MDRD (S/P/Bld) [Vol rate/Area] 93 mL/min/{1.73_m2} Normal > OR = 60 [facility] Comment on above: Performed By: #### 7 600, 14720, 69441 #### [facility] of [place] [address] [place] [address] Engine Lathe Set Up Operator Tool: Chalino Levy MD Globulin (S) [Mass/Vol] 3.0 g/dL Normal 1.9-3.7 [facility] Comment on above: Performed By: #### 7 600, 07531, 43776 #### [facility] [place] [address] Engine Lathe Set Up Operator Tool: Chalino Levy MD Glucose [Mass/Vol] 105 mg/dL High 65-99 [facility] Comment on above: Result Comment: Fasting reference interval For someone without known diabetes, a glucose value between 100 and 125 mg/dL is consistent with prediabetes and should be confirmed with a follow-up test. Performed By: #### 7 600, 05145, 57666 #### [facility] [place] [address] Engine Lathe Set Up Operator Tool: Chalino Levy MD Potassium [Moles/Vol] 4.3 mmol/L Normal 3.5-5.3 [facility] Comment on above: Performed By: #### 7 600, 24004, 09656 #### [facility] [place] [address] Engine Lathe Set Up Operator Tool: Chalion Levy MD Protein [Mass/Vol] 6.9 g/dL Normal 6.1-8.1 [facility] Comment on above: Performed By: #### 7 600, 32912, 38115 #### [facility] [place] [address] Engine Lathe Set Up Operator Tool: Chalino Levy MD Sodium [Moles/Vol] 140 mmol/L Normal 135-146 [facility] Comment on above: Performed By: #### 7 600, 92966, 34034 #### [facility] [place] [address] Engine Lathe Set Up Operator Tool: Chalino Levy MD Urea nitrogen [Mass/Vol] 23 mg/dL Normal 7-25 [facility] Comment on above: Performed By: #### 7 600, 60508, 12993 #### [facility] [address], [address] [place] [address] Engine Lathe Set Up Operator Tool: Chalino Levy MD LIPID PANEL, [facility] 03-3 Cholesterol [Mass/Vol] 276 mg/dL High <200 [facility] Comment on above: Order Comment: FASTI NG:YES FASTING: YES Performed By: #### 7 600, 58757, 67817 #### [facility] [address], [address] [place] [address] Engine Lathe Set Up Operator Tool: Chalino Levy MD Cholesterol in HDL [Mass/Vol] 48 mg/dL Low > OR = 50 [facility] Comment on above: Order Comment: FASTI NG:YES FASTING: YES Performed By: #### 7 600, 70395, 90325 #### [facility] [address], [address] [place] [address] Engine Lathe Set Up Operator Tool: Chalino Levy MD Cholesterol in LDL [Mass/Vol] 188 mg/dL High [facility] Comment on above: Order Comment: FASTI NG:YES FASTING: YES Result Comment: Refe rence range: <100 Desirable range <100 mg/dL for primary prevention; <70 mg/dL for patients with CHD or diabetic patients with > or = 2 CHD risk factors. LDL-C is now calculated using the Jose Roberto-Luis M calculation, which is a validated novel method providing better accuracy than the Friedewald equation in the estimation of LDL-C. Jose Roberto BOTELLO et al. EDGARDO. 2013;310(19): 4423-9558 (http://education.[employer]/faq/CTQ762) Performed By: #### 7 600, 21284, 40335 #### [facility] [address], [address] [place] [address] Engine Lathe Set Up Operator Tool: Chalino Levy MD Cholesterol.total/Chol esterol in HDL [Mass ratio] 5.8 {ratio} High <5.0 [facility] Comment on above: Order Comment: FASTI NG:YES FASTING: YES Performed By: #### 7 600, 08170, 33715 #### [facility] [address], [address] [place] [address] Engine Lathe Set Up Operator Tool: Chalino Levy MD NON HDL CHOLESTEROL 228 mg/dL (calc) High <130 [facility] Comment on above: Order Comment: FASTI NG:YES FASTING: YES Result Comment: Non- HDL level > or = 220 is very high and may indicate genetic familial hypercholesterolemia (FH). Clinical assessment and measurement of blood lipid levels should be considered for all first-degree relatives of patients with an FH diagnosis. For patients with diabetes plus 1 major ASCVD risk factor, treating to a non-HDL-C goal of <100 mg/dL (LDL-C of <70 mg/dL) is considered a therapeutic option. Performed By: #### 7 600, 75248, 46373 #### [facility] [place] [address] Engine Lathe Set Up Operator Tool: Chalino Levy MD Triglyceride [Mass/Vol] 212 mg/dL High <150 [facility] Comment on above: Order Comment: FASTI NG:YES FASTING: YES Result Comment: If a non-fasting specimen was collected, consider repeat triglyceride testing on a fasting specimen if clinically indicated. Levy et al. J. of Clin. Lipidol. 2015;9:129-169. Performed By: #### 7 600, 28038, 89871 #### [facility] [place] [address] Engine Lathe Set Up Operator Tool: Chalino Levy MD TSH+FREE T4 09-19-2021 Free T4 [Mass/Vol] 1.4 ng/dL Normal 0.8-1.8 [facility] Comment on above: Performed By: #### 7 600, 46390, 58562 #### [facility] [place] [address] Engine Lathe Set Up Operator Tool: Chalino Levy MD TSH Qn 2.51 m[IU]/L Normal 0.40-4.50 [facility] Comment on above: Performed By: #### 7 600, 99537, 03101 #### [facility] [place] [address] Engine Lathe Set Up Operator Tool: Chalino Levy MD XR CHEST 2 Von 09-12-2021 XR CHEST 2 V EXAMINATION: XR CHES T 2 V HISTORY: Cough ; left chest pain COMPARISON: XR chest 07/02/2021 FINDINGS: LUNGS: Mild haziness within the medial right lung base. VASCULATURE: No increased pulmonary vasculature. PLEURA: No pneumothorax, effusion, or pleural thickening. CARDIAC: No cardiomegaly or cardiac silhouette abnormality. MEDIASTINUM: No visible mass or adenopathy. BONES: No fracture or visible bone lesion. OTHER: Negative. IMPRESSION: 1. Suspect mild right basilar infiltrates versus atelectasis. Electronically authenticated by: BARRON TATUM Date: 2021-09-12 16:03 Normal [facility] US ST HEAD_NECKon 08-25-[address] HEAD_NECK EXAM: US ST HEAD_NEC K HISTORY: Mass of neck COMPARISON: Ultrasound neck 02/07/2015. CT neck 01/24/2015 TECHNIQUE: Focused sonographic images in the posterior occipital region in the patient's reported area of concern. Additional left neck was scanned per book packer. FINDINGS: No suspicious mass identified within the posterior occipital region. No focal fluid collection, or subcutaneous edema. Benign-appearing right posterior occipital 4 mm lymph node identified. Additional sonographic evaluation of the left thyroid fossa demonstrates a prominent 1 cm lymph node with retained fatty hilum. IMPRESSION: 1. No sonographic findings to explain the patient's posterior occipital symptoms. 2. Borderline enlarged 1 cm left cervical lymph node. Consider short interval follow-up ultrasound given presumed history of prior lymphadenopathy and thyroidectomy. Electronically authenticated by: ASHLEE ESCUDERO Date: 2021-08-25 09:54 Normal [facility] CBC AUTO DIFFon 07-02-2021 BASO # 0.0 103/ul Normal 0.0-0.1 [facility] Comment on above: Performed By: #### C BC #### [facility] [address] [place], [place] [address] Dr. Bibi Emerson Basophils/100 WBC (Bld) 0.3 % Normal 0.2-2.0 [facility] Comment on above: Performed By: #### C BC #### [facility] [address] [place], [place] [address] Dr. Bibi Emerson EO # 0.0 103/ul Normal 0.0-0.7 [facility] Comment on above: Performed By: #### C BC #### [facility] [address] [place] [address] Dr. Bibi Emerson Eosinophils/100 WBC (Bld) 0.0 % Critically low 0.9-7.0 [facility] Comment on above: Performed By: #### C BC #### [facility] [address] [place] [address] Dr. Bibi Emerson Erythrocyte distribution width (RBC) [Ratio] 13.0 % Normal 11.0-15.0 [facility] Comment on above: Performed By: #### C BC #### [facility] [address] [place] [address] Dr. Bibi Emerson Hematocrit (Bld) [Volume fraction] 47.0 % Normal 36.0-48.0 [facility] Comment on above: Performed By: #### C BC #### [facility] [address] [place] [address] Dr. Bibi Emerson Hemoglobin (Bld) [Mass/Vol] 15.5 g/dL Normal 12.0-16.0 [facility] Comment on above: Performed By: #### C BC #### [facility] [address] [place] [address] Dr. Bibi Emerson IG # 0.01 10e3/ul Normal 0.00-0.03 [facility] Comment on above: Performed By: #### C BC #### [facility] [address] [place] [address] Dr. Bibi Emerson IG % 0.2 % Normal 0.0-0.5 [facility] Comment on above: Performed By: #### C BC #### [facility] [address] [place] [address] Dr. Bibi Emerson LYMPH # 2.0 103/ul Normal 1.2-3.8 [facility] Comment on above: Performed By: #### C BC #### [facility] [address] [place] [address] Dr. Bibi Emerson Lymphocytes/100 WBC (Bld) 30.7 % Normal 20.5-60.0 [facility] Comment on above: Performed By: #### C BC #### [facility] [address] [place] [address] Dr. Bibi Emerson MANUAL DIFF REQ NO Normal [facility] Comment on above: Performed By: #### C BC #### [facility] [address] [place] [address] Dr. Bibi Emerson MCH (RBC) [Entitic mass] 29.8 pg Normal 26.7-34.0 [facility] Comment on above: Performed By: #### C BC #### [facility] [address] [place] [address] Dr. Bibi Emerson MCHC (RBC) [Mass/Vol] 33.0 g/dL Normal 29.9-35.2 [facility] Comment on above: Performed By: #### C BC #### [facility] [address] [place] [address] Dr. Bibi Emerson MCV (RBC) [Entitic vol] 90.2 fL Normal 81.0-99.0 [facility] Comment on above: Performed By: #### C BC #### [facility] [address] [place] [address] Dr. Bibi Emerson MONO # 0.5 103/ul Normal 0.3-0.8 [facility] Comment on above: Performed By: #### C BC #### [facility] [address] [place] [address] Dr. Bibi Emerson Monocytes/100 WBC (Bld) 7.9 % Normal 1.7-12.0 [facility] Comment on above: Performed By: #### C BC #### [facility] [address] [place] [address] Dr. Bibi Emerson NEUT # 4.0 103/ul Normal 1.4-6.5 [facility] Comment on above: Performed By: #### C BC #### [facility] [address] [place] [address] Dr. Bibi Emerson Neutrophils/100 WBC (Bld) 60.9 % Normal 43.0-75.0 [facility] Comment on above: Performed By: #### C BC #### [facility] [address] [place] [address] Dr. Bibi Emerson Platelet mean volume (Bld) [Entitic vol] 8.9 fL Critically low 9.5-13.5 [facility] Comment on above: Performed By: #### C BC #### [facility] [address] [place] [address] Dr. Bibi Emerson PLT 303 103/ul Normal 150-450 [facility] Comment on above: Performed By: #### C BC #### [facility] [address] [place] [address] Dr. Bibi Emerson RBC 5.21 106/ul Normal 4.20-5.40 [facility] Comment on above: Performed By: #### C BC #### [facility] [address] [place] [address] Dr. Bibi Emerson WBC 6.5 103/ul Normal 4.0-11.0 [facility] Comment on above: Performed By: #### C BC #### [facility] [address] [place] [address] Dr. Bibi Emerson [facility] SARS-CoV-2 (COVID-19) RNA RAAD+probe Ql (Unsp spec) Detected Critically abnormal NOT DETECTED [facility] Comment on above: Result Comment: This test is not yet approved or cleared by the [place] FDA. When there are no FDA-approved or cleared tests available, and other criteria are met, FDA can make tests available under an emergency access mechanism called an Emergency Use Authorization (EUA). The EUA for this test is supported by the [place] of Health and Human Service's (HHS's) declaration that circumstances exist to justify the emergency use of in vitro diagnostics for the detection and/or diagnosis of the virus that causes COVID-19. This EUA will remain in effect (meaning this test can be used) for the duration of the COVID-19 declaration justifying emergency of IVDs, unless it is terminated or revoked by FDA (after which the test may no longer be used). Performed By: #### C VDTBH #### [facility] [address] [place] [address] Dr. Bibi Emerson INFLUENZA A AND B AGon 07-02 INFLUANEGH SEE BELOW Normal [facility] Comment on above: Result Comment: Nega tive for Flu A protein angiten. Infection due to Flu A cannot be ruled out. Flu A angiten in the sample may be below the detection limit of the test. Performed By: #### I NFLUAB ####[facility] [address] [place], [place] [address]DrNorma Emerson INFLUBNEGH SEE BELOW Normal [facility] Comment on above: Result Comment: Nega tive for Flu B protein antigen. Infection due to Flu B cannot be ruled out. Flu B antigen in the sample may be below the detection limit of the test. Performed By: #### I NFLUAB ####[facility] [address] [place], [place] [address]DrNorma Emerson INFLUENZA A AG Negative Normal NEGATIVE SEE COMMENT [facility] Comment on above: Performed By: #### I NFLUAB ####[facility] [address] [place], [place] [address]Dr. Bibi Emerson INFLUENZA B AG Negative Normal NEGATIVE SEE COMMENT [facility] Comment on above: Performed By: #### I NFLUAB ####[facility] [address] [place], [place] [address]DrNorma Emerson INTERNAL CONTROLS Within Normal Limits Normal Wi thin Normal Limits [facility] Comment on above: Performed By: #### I NFLUAB ####[facility] [address] [place], [place] [address]Dr. Bibi Emerson PROF CHEM 8 (BAS METB)on Anion gap [Moles/Vol] 12.0 mmol/L Normal Th [facility] Comment on above: Performed By: #### B MP #### [facility] [address] [place] [address] Dr. Bibi Emerson Calcium [Mass/Vol] 8.2 mg/dL Critically low 8.4-10.2 [facility] Comment on above: Performed By: #### B MP #### [facility] [address] [address] [address] Bibi Emerson Chloride [Moles/Vol] 102 mmol/L Normal 98-107 [facility] Comment on above: Performed By: #### B MP #### [facility] [address] [address] [address] Bibi Emerson CO2 [Moles/Vol] 27.6 mmol/L Normal 22.0-30.0 [facility] Comment on above: Performed By: #### B MP #### [facility] [address] [address] [address] Bibi Emerson Creatinine [Mass/Vol] 1.03 mg/dL Normal 0.52-1.04 [facility] Comment on above: Performed By: #### B MP #### [facility] [address] [place] [address] Dr. Bibi Emerson EGFR-AF SPANISH >60 Normal >=60 [facility] Comment on above: Performed By: #### B MP #### [facility] [address] [address] [address] Bibi Emerson EGFR-NON AF SPANISH 54 mL/min/1.73m2 Critically low >=60 [facility] Comment on above: Performed By: #### B MP #### [facility] [address] [address] [address] Bibi Emerson Glucose [Mass/Vol] 127 mg/dL Critically high 74-106 T [facility] Comment on above: Performed By: #### B MP #### [facility] [address] [address] [address] Bibi Emerson Potassium [Moles/Vol] 3.6 mmol/L Normal 3.4-5.0 [facility] Comment on above: Performed By: #### B MP #### [facility] [address] [place] [address] Dr. Bibi Emerson Sodium [Moles/Vol] 138 mmol/L Normal 137-145 [facility] Comment on above: Performed By: #### B MP #### [facility] [address] [address] [address] Bibi Emerson Urea nitrogen [Mass/Vol] 18.0 mg/dL Critically high 7.0-17.0 [facility] Comment on above: Performed By: #### B MP #### [facility] [address] [place], [place] [address] Dr. Bibi Emerson Urea nitrogen/Creatinine [Mass ratio] 17.5 mg/mg Normal [facility] Comment on above: Performed By: #### B MP #### [facility] [address] [place], [place] [address] Dr. Bibi Emerson XR CHEST 1 Von 07-02-2021 XR CHEST 1 V EXAM: XR CHEST 1 V HISTORY: Cough and vomiting COMPARISON: Chest x-rays 03/02/2021. TECHNIQUE: Portable chest FINDINGS: Lung parenchyma exhibits no acute consolidation or infiltrate. No pneumothorax or pleural effusion. The cardiac, mediastinal and hilar contours are unremarkable. No visualized acute osseous abnormality IMPRESSION: No visualized acute abnormality Electronically authenticated by: YGPSY MUÑOZ Date: 2021-07-02 21:16 Normal [facility] Covid-19 PCR (CVDTB)on SARS-CoV-2 (COVID-19) RNA RAAD+probe Ql (Unsp spec) Not detected Normal NOT DETECTED [facility] Comment on above: Result Comment: This test is not yet approved or cleared by the [place] FDA. When there are no FDA-approved or cleared tests available, and other criteria are met, FDA can make tests available under an emergency access mechanism called an Emergency Use Authorization (EUA). The EUA for this test is supported by the [place] of Health and Human Service's (HHS's) declaration that circumstances exist to justify the emergency use of in vitro diagnostics for the detection and/or diagnosis of the virus that causes COVID-19. This EUA will remain in effect (meaning this test can be used) for the duration of the COVID-19 declaration justifying emergency of IVDs, unless it is terminated or revoked by FDA (after which the test may no longer be used). When diagnostic testing is negative, the possibility of a false negative should be considered in the context of a patient's recent exposures and the presence of clinical signs and symptoms consistent with SARS-CoV-2. Performed By: #### C VDTBH ####[facility] [address] [place], [place] [address]PgNorma Emerson TSH+FREE T4on 03-27-2021 Free T4 [Mass/Vol] 1.2 ng/dL Normal 0.8-1.8 [facility] Comment on above: Performed By: #### 5 [id number] #### [facility] [address], [address] [address] Engine Lathe Set Up Operator Tool: Chalino Levy MD TSH Qn 2.23 m[IU]/L Normal 0.40-4.50 [facility] Comment on above: Performed By: #### 5 [id number] #### [facility] [address], [address] [address] Engine Lathe Set Up Operator Tool: Chalino Levy MD Covid-19 PCR (CVDTB)on 02-20 SARS-CoV-2 (COVID-19) RNA RAAD+probe Ql (Unsp spec) Not detected Normal NOT DETECTED [facility] Comment on above: Result Comment: This test is not yet approved or cleared by the [place] FDA. When there are no FDA-approved or cleared tests available, and other criteria are met, FDA can make tests available under an emergency access mechanism called an Emergency Use Authorization (EUA). The EUA for this test is supported by the [place] of Health and Human Service's (HHS's) declaration that circumstances exist to justify the emergency use of in vitro diagnostics for the detection and/or diagnosis of the virus that causes COVID-19. This EUA will remain in effect (meaning this test can be used) for the duration of the COVID-19 declaration justifying emergency of IVDs, unless it is terminated or revoked by FDA (after which the test may no longer be used). When diagnostic testing is negative, the possibility of a false negative should be considered in the context of a patient's recent exposures and the presence of clinical signs and symptoms consistent with SARS-CoV-2. Performed By: #### C VDTBH, CVDAGS #### [facility] [address] [place], [place] [address] Farida Yang SYMPTOMATIC COVID-19 ANTIGEN on 03-02-2021 EUA Statement SEE BELOW Normal [facility] Comment on above: Result Comment: This test has not been FDA cleared or approved, but has been authorized by the FDA under an Emergency Use Authorization (EUA) for use by authorized laboratories certified under CLIA that meet the requirements to perform moderate or high complexity testing. This test has been authorized only for the detection of proteins from SARS-CoV-2, not for any other viruses or pathogens. The emergency use of this test is authorized for the duration of the declaration that circumstances exist justifying the authorization of emergency use of in vitro diagnostic tests for detection and/or diagnosis of Covid-19 under section 564(b)(1) of the Act, 21 U.S.C. 360bbb-3(b)(1), unless the declaration is terminated or authorization is revoked sooner. Performed By: #### C VDTB, CVDAGS #### [facility] [address] [place] [address] Farida Yang SARS-CoV-2 (COVID-19) RNA RAAD+probe Ql (Unsp spec) Negative Normal NEGATIVE [facility] Comment on above: Result Comment: CONF IRMATION BY PCR PENDING PER CDC GUIDELINES/ SYMPTOMATIC PATIENT. Performed By: #### C VDTB, CVDAGS #### [facility] [address] [id number] Farida Yang XR CHEST 1 Von 03-02-2021 XR CHEST 1 V CLINICAL HISTORY: Shortness of breath, cough, chest pressure, sweats, headache. EXAMINATION: AP portable upright chest: 03/02/2021 at 1204 hours. COMPARISON: 09/03/2015. FINDINGS: The patient is slightly rotated. The visualized osseous structures are normal. The heart size seems normal. The aorta has normal contour. No discrete infiltrates, pleural effusions, pulmonary edema, or pneumothorax. IMPRESSION: No acute cardiopulmonary disease. Electronically authenticated by: PALMER GREGORIO Date: 2021-03-02 13:11 Normal [facility] Basic Metabolic PanelOrdered By: Heena John on 11-22-2020 Anion gap [Moles/Vol] 9 mmol/L 9 - 17 mmol/L [employer] Work Phone: Calcium [Mass/Vol] 8.3 mg/dL Low 8.6 - 10. 4 mg/dL [employer] Phone: Chloride [Moles/Vol] 103 mmol/L 98 - 10 7 mmol/L [employer] Phone: CO2 [Moles/Vol] 29 mmol/L 20 - 31 mmol/L [employer] Phone: Creatinine [Mass/Vol] 0.77 mg/dL 0.50 - 0.90 mg/dL [employer] Phone: GFR >60 >60 mL/min [employer] Phone: GFR Non- >60 >60 mL/min [employer] Phone: GFR/1.73 sq M.predicted MDRD (S/P/Bld) [Vol rate/Area] [employer] Phone: Comment on above: Average GFR for 60-6 9 years old: 85 mL/min/1.73sq m Chronic Kidney Disease: <60 mL/min/1.73sq m Kidney failure: <15 mL/min/1.73sq m eGFR calculated using average adult body mass. Additional eGFR calculator available at: http://www.[employer]/multiple_crcl_2012.htm GFR/1.73 sq M.predicted MDRD (S/P/Bld) [Vol rate/Area] NOT REPORTED [employer] Phone: Glucose [Mass/Vol] 131 mg/dL High 70 - 99 mg/dL [employer] Phone: Interpretation and review of laboratory results Abnormal [employer] Phone: Potassium [Moles/Vol] 4.5 mmol/L 3.7 - 5.3 mmol/L [employer] Phone: Sodium [Moles/Vol] 141 mmol/L 135 - 144 mmol/L [employer] Phone: Urea nitrogen (BldV) [Mass/Vol] 21 mg/dL 8 - 23 mg/dL [facility] [employer] Work Phone: Urea nitrogen/Creatinine (Bld) [Mass ratio] NOT REPORTED [facility] [employer] Work Phone: [facility] [email or web address] Phone: Basic Metabolic Profon 11-22 (cont.) Normal [facility] Comment on above: Result Comment: Aver age GFR for 60-69 years old: 85 mL/min/1.73sq m Chronic Kidney Disease: <60 mL/min/1.73sq m Kidney failure: <15 mL/min/1.73sq m eGFR calculated using average adult body mass. Additional eGFR calculator available at: http://www.[employer]/multiple_crcl_2011.htm Performed By: #### C DP, BMP #### [facility] [address] [place] [address] Plant Anatomist: Justin Chambers DO Anion gap [Moles/Vol] 9 mmol/L Normal 9-17 [facility] Comment on above: Performed By: #### C MARION, BMP #### [facility] [place] [place] [address] Plant Anatomist: Justin Chambers DO Calcium [Mass/Vol] 8.3 mg/dL Low 8.6-10.4 [facility] Comment on above: Performed By: #### C DP, BMP #### [facility] [address] [place] [address] Plant Anatomist: Justin Chambers DO Chloride [Moles/Vol] 103 mmol/L Normal 98-107 [facility] Comment on above: Performed By: #### C DP, BMP #### [facility] [address] [place] [address] Plant Anatomist: Justin Chambers DO CO2 [Moles/Vol] 29 mmol/L Normal 20-31 [facility] Comment on above: Performed By: #### C DP, BMP #### [facility] [address] [place] [address] Plant Anatomist: Justin Chambers DO Creatinine [Mass/Vol] 0.77 mg/dL Normal 0.50-0.90 [facility] Comment on above: Performed By: #### C DP, BMP #### [facility] [address] [place] [address] Plant Anatomist: Justin Chambers, DO GFR, Amer >60 Normal >60 [facility] Comment on above: Performed By: #### C DP, BMP #### [facility] [address] [place] [address] Plant Anatomist: Justin Chambers DO GFR,non Amer >60 Normal >60 [facility] Comment on above: Performed By: #### C DP, BMP #### [facility] [address] [place] [address] Plant Anatomist: Justin Chambers DO Glucose [Mass/Vol] 131 mg/dL High 70-99 [facility] Comment on above: Performed By: #### C DP, BMP #### [facility] [place] [address] Plant Anatomist: Justin Chambers DO Potassium [Moles/Vol] 4.5 mmol/L Normal 3.7-5.3 [facility] Comment on above: Performed By: #### C DP, BMP #### [facility] [place] [address] Plant Anatomist: Justin Chambers DO Sodium [Moles/Vol] 141 mmol/L Normal 135-144 [facility] Comment on above: Performed By: #### C DP, BMP #### [facility] [address] [facility] [address] Plant Anatomist: Justin Chambers DO Urea nitrogen [Mass/Vol] 21 mg/dL Normal 8-23 [facility] Comment on above: Performed By: #### C DP, BMP #### [facility] [address] [facility] [address] Plant Anatomist: Justin Chambers DO BUN/CRE Ratio NOT REPORTED Normal 9-20 [facility] Comment on above: Performed By: #### C DP, BMP #### [facility] [address] [place] [address] Plant Anatomist: Justin Chambers DO Staging: NOT REPORTED Normal [facility] Comment on above: Performed By: #### C DP, BMP #### [facility] [address] [place] [address] Plant Anatomist: Justin Chambers DO CBC Auto DifferentialOrdered By: Heena John on 11-22-2020 [employer]os # 0.40 [employer] [facility] Work Phone: Absolute Immature Granulocyte NOT REPORTED [facility] Work Phone: Absolute Lymph # 1.80 [employer] [facility] Work Phone: Absolute Clarion # 0.50 [employer] [facility] Work Phone: Basophils (Bld) [#/Vol] 0.10 10*3/uL [employer] Work Phone: Basophils/100 WBC (Bld) 1 % 0 - 2 % [employer] Work Phone: Differential Type NOT REPORTED [employer] Work Phone: Eosinophils/100 WBC (Bld) 4 % 0 - 4 % [employer] Work Phone: Hematocrit (Bld) [Volume fraction] 42.5 % 36 - 46 % [employer] Work Phone: Hemoglobin.gastrointes tinal spec 1 Ql (Stl) 13.8 g/dL 12.0 - 16.0 g/dL [employer] Phone: Immature Granulocytes NOT REPORTED 0 % [employer] Work Phone: Interpretation and review of laboratory results Abnormal [employer] Phone: Lymphocytes/100 WBC (Bld) 19 % Low 24 - 44 % [employer] Work Phone: MCH (RBC) [Entitic mass] 29.5 pg 26 - 34 pg [employer] Phone: MCHC (RBC) [Mass/Vol] 32.5 g/dL 31 - 3 7 g/dL [employer] Phone: MCV (RBC) [Entitic vol] 90.8 fL 80 - 100 fL [employer] Phone: Monocytes/100 WBC (Bld) 6 % 1 - 7 % [employer] Phone: NRBC Automated NOT REPORTED per 100 WBC [employer] [facility] Work Phone: Platelet distribution width (Bld) [Ratio] 13.3 % 11.5 - 14.9 % [employer] Phone: Platelet Estimate NOT REPORTED [facility] Phone: Platelet mean volume (Bld) [Entitic vol] 7.2 fL 6.0 - 12.0 fL [employer] Phone: Platelets (Bld) [#/Vol] 388 10*3/uL [employer] Phone: RBC (Bld) [#/Vol] 4.68 10*6/uL 4.0 - 5.2 m/uL [employer] Phone: RBC (Bld) [#/Vol] NOT REPORTED [facility] Phone: Segmented neutrophils/100 WBC (Bld) 70 % High 36 - 66 % [employer] Work Phone: Segs Absolute 6.70 [facility] [employer] Work Phone: WBC (Bld) [#/Vol] 9.4 10*3/uL [facility] [employer] Work Phone: WBC (Bld) [#/Vol] NOT REPORTED [employer] Work Phone: [employer] Work Phone: CBC with Diffon 11-22-2020 Abs. Basophil 0.10 k/uL Normal 0.0-0.2 [facility] Comment on above: Performed By: #### C DP, BMP #### [facility] [address] [place] [id number] Plant Anatomist: Justin Chambers DO Abs.Neutrophil (Seg) 6.70 k/uL Normal 1.3-9.1 [facility] Comment on above: Performed By: #### C DP, BMP #### [facility] [address] [place] [address] Plant Anatomist: Justin Chambers DO Basophils/100 WBC (Bld) 1 % Normal 0-2 [facility] Comment on above: Performed By: #### C DP, BMP #### [facility] [address] [place] [address] Plant Anatomist: Justin Chambers DO Eosinophils (Bld) [#/Vol] 0.40 10*3/uL Normal 0.0-0.4 [facility] Comment on above: Performed By: #### C DP, BMP #### [facility] [address] [place] [address] Plant Anatomist: Justin Chambers DO Eosinophils/100 WBC (Bld) 4 % Normal 0-4 [facility] Comment on above: Performed By: #### C DP, BMP #### [facility] [address] [place] [address] Plant Anatomist: Justin Chambers DO Erythrocyte distribution width (RBC) [Ratio] 13.3 % Normal 11.5-14.9 [facility] Comment on above: Performed By: #### C DP, BMP #### [facility] [address] [place] [address] Plant Anatomist: Justin Chambers DO Hematocrit (Bld) [Volume fraction] 42.5 % Normal 36-46 [facility] Comment on above: Performed By: #### C MARION, BMP #### [facility] [address] [place] [address] Plant Anatomist: Justin Chambers DO Hemoglobin (Bld) [Mass/Vol] 13.8 g/dL Normal 12.0-16.0 [facility] Comment on above: Performed By: #### C DP, BMP #### [facility] [address] [place] [address] Plant Anatomist: Justin Chambers DO Lymphocytes (Bld) [#/Vol] 1.80 10*3/uL Normal 1.0-4.8 [facility] Comment on above: Performed By: #### C DP, BMP #### [facility] [address] [place] [address] Plant Anatomist: Justin Chambers DO Lymphocytes/100 WBC (Bld) 19 % Low 24-44 [facility] Comment on above: Performed By: #### C DP, BMP #### [facility] [address] [place] [address] Plant Anatomist: Justin Chambers DO MCH (RBC) [Entitic mass] 29.5 pg Normal 26-34 [facility] Comment on above: Performed By: #### C DP, BMP #### [facility] [address] [place] [address] Plant Anatomist: Justin Chambers DO MCHC (RBC) [Mass/Vol] 32.5 g/dL Normal 31-37 [facility] Comment on above: Performed By: #### C DP, BMP #### [facility] [facility] [address] Plant Anatomist: Justin Chambers DO MCV (RBC) [Entitic vol] 90.8 fL Normal 80-100 [facility] Comment on above: Performed By: #### C DP, BMP #### [facility] [place] [address] Plant Anatomist: Justin Chambers DO Monocytes (Bld) [#/Vol] 0.50 10*3/uL Normal 0.1-1.3 [facility] Comment on above: Performed By: #### C DP, BMP #### [facility] [facility] [place] [address] Plant Anatomist: Justin Chambers DO Monocytes/100 WBC (Bld) 6 % Normal 1-7 [facility] Comment on above: Performed By: #### C DP, BMP #### [facility] [address] [place] [address] Plant Anatomist: Justin Chambers DO Neutrophil (Seg) 70 % High 36-66 [facility] Comment on above: Performed By: #### C DP, BMP #### [facility] [place] [address] Plant Anatomist: Jusitn Chambers DO Platelet mean volume (Bld) [Entitic vol] 7.2 fL Normal 6.0-12.0 [facility] Comment on above: Performed By: #### C DP, BMP #### [facility] [place] [address] Plant Anatomist: Justin Chambers DO Platelets (Bld) [#/Vol] 388 10*3/uL Normal 150-450 [facility] Comment on above: Performed By: #### C DP, BMP #### [facility] [address] [place] [address] Plant Anatomist: Justin Chambers DO RBC (Bld) [#/Vol] 4.68 10*6/uL Normal 4.0-5.2 [facility] Comment on above: Performed By: #### C DP, BMP #### [facility] [place] [address] Plant Anatomist: Justin Chambers DO WBC (Bld) [#/Vol] 9.4 10*3/uL Normal 3.5-11.0 [facility] Comment on above: Performed By: #### C DP, BMP #### [facility] [place] [address] Plant Anatomist: Justin Chambers DO Abs.Imm.Granulocyte NOT REPORTED Normal 0.00-0.30 [facility] Comment on above: Performed By: #### C DP, BMP #### [facility] [place] [address] Plant Anatomist: Justin Chambers DO Auto Diff Performed NOT REPORTED Normal [facility] Comment on above: Performed By: #### C DP, BMP #### [facility] [place] [address] Plant Anatomist: Justin Chambers DO Immature Granulocyte NOT REPORTED Normal 0 [facility] Comment on above: Performed By: #### C DP, BMP #### [facility] [place] [address] Plant Anatomist: Justin Chambers DO NRBC Automated NOT REPORTED Normal [facility] Comment on above: Performed By: #### C DP, BMP #### [facility] [address] [facility] [address] Plant Anatomist: Justin Chambers DO Platelet Estimate NOT REPORTED Normal [facility] Comment on above: Performed By: #### C DP, BMP #### [facility] [address] [facility] [address] Plant Anatomist: Justin Chambers DO RBC morphology finding Nom (Bld) NOT REPORTED Normal [facility] Comment on above: Performed By: #### C DP, BMP #### [facility] [address] [facility] [address] Plant Anatomist: Justin Chambers DO WBC Morphology NOT REPORTED Normal [facility] Comment on above: Performed By: #### C DP, BMP #### [facility] [address] [facility] [place] [address] Plant Anatomist: Justin Chambers DO COVID-19, RapidOrdered By: Ifeoma John on 11-22-2020 SARS-CoV-2 (COVID-19) RNA RAAD+probe Ql (Unsp spec) Not detected Not Detected [facility] Work Phone: Comment on above: Rapid NAAT: The specimen is NEGATIVE for SARS-CoV-2, the novel coronavirus associated with COVID-19. The ID NOW COVID-19 assay is designed to detect the virus that causes COVID-19 in patients with signs and symptoms of infection who are suspected of COVID-19. An individual without symptoms of COVID-19 and who is not shedding SARS-CoV-2 virus would expect to have a negative (not detected) result in this assay. Negative results should be treated as presumptive and, if inconsistent with clinical signs and symptoms or necessary for patient management, should be tested with an alternative molecular assay. Negative results do not preclude SARS-CoV-2 infection and should not be used as the sole basis for patient management decisions. Fact sheet for Healthcare Providers: https://www.fda.gov/media/457586/download Fact sheet for Patients: https://www.fda.gov/media/396202/download Methodology: Isothermal Nucleic Acid Amplification Specimen Description .NASOPHARYNGEAL SWAB [employer] Phone: [employer] Phone: [id number] 11-22-2020 SARS-CoV-2 (COVID-19) RNA RAAD+probe Ql (Unsp spec) Not detected Normal NOTDET [facility] Comment on above: Result Comment: Rapid NAAT: The specimen is NEGATIVE for SARS-CoV-2, the novel coronavirus associated with COVID-19. The ID NOW COVID-19 assay is designed to detect the virus that causes COVID-19 in patients with signs and symptoms of infection who are suspected of COVID-19. An individual without symptoms of COVID-19 and who is not shedding SARS-CoV-2 virus would expect to have a negative (not detected) result in this assay. Negative results should be treated as presumptive and, if inconsistent with clinical signs and symptoms or necessary for patient management, should be tested with an alternative molecular assay. Negative results do not preclude SARS-CoV-2 infection and should not be used as the sole basis for patient management decisions. Fact sheet for Healthcare Providers: https://www.fda.gov/media/830334/download Fact sheet for Patients: https://www.fda.gov/media/068179/download Methodology: Isothermal Nucleic Acid Amplification Performed By: #### C OVRB #### [facility] [address] [place] [address] Plant Anatomist: Justin Chambers DO XR CHEST PORTABLEon 11-23-19 21 XR CHEST PORTABLE EXAMINATION: ONE XRAY VIEW OF THE CHEST 11/22/2020 12:56 pm COMPARISON: 02 Nov 2019 HISTORY: ORDERING SYSTEM PROVIDED HISTORY: shortness of breath TECHNOLOGIST PROVIDED HISTORY: shortness of breath Reason for Exam: shortness of breath Acuity: Acute Type of Exam: Initial Additional signs and symptoms: shortness of breath FINDINGS: AP portable view of the chest time stamped at 1305 hours demonstrates stable cardiac size. Overlying cardiac monitoring electrodes are present. No vascular congestion, focal consolidation, effusion, or pneumothorax is noted. Osseous and mediastinal structures are age-appropriate. Chronic basilar changes are noted. IMPRESSION: No acute cardiopulmonary process. Stable cardiomegaly and chronic basilar changes. Interpreted by: Ryanne Cantrell MD Signed by: Ryanne Cantrell MD 11/22/20 Final result Normal [facility] XR CHEST PORTABLEOrdered By: Heena John on 11-22-2020 No acute cardiopulmonary process. Stable cardiomegaly and chronic basilar changes. [employer] Phone: EXAMINATION: ONE XRA Y VIEW OF THE CHEST 11/22/2020 12:56 pm COMPARISON: 02 Nov 2019 HISTORY: ORDERING SYSTEM PROVIDED HISTORY: shortness of breath TECHNOLOGIST PROVIDED HISTORY: shortness of breath Reason for Exam: shortness of breath Acuity: Acute Type of Exam: Initial Additional signs and symptoms: shortness of breath FINDINGS: AP portable view of the chest time stamped at 1305 hours demonstrates stable cardiac size. Overlying cardiac monitoring electrodes are present. No vascular congestion, focal consolidation, effusion, or pneumothorax is noted. Osseous and mediastinal structures are age-appropriate. Chronic basilar changes are noted. [employer] Phone: Jose Antonio, pn Incoming Radiant Results From [employer] - 11/22/2020 1:15 PM EDT EXAMINATION: ONE XRAY VIEW OF THE CHEST 11/22/2020 12:56 pm COMPARISON: 02 Nov 2019 HISTORY: ORDERING SYSTEM PROVIDED HISTORY: shortness of breath TECHNOLOGIST PROVIDED HISTORY: shortness of breath Reason for Exam: shortness of breath Acuity: Acute Type of Exam: Initial Additional signs and symptoms: shortness of breath FINDINGS: AP portable view of the chest time stamped at 1305 hours demonstrates stable cardiac size. Overlying cardiac monitoring electrodes are present. No vascular congestion, focal consolidation, effusion, or pneumothorax is noted. Osseous and mediastinal structures are age-appropriate. Chronic basilar changes are noted. IMPRESSION: No acute cardiopulmonary process. Stable cardiomegaly and chronic basilar changes. [employer] Phone: [employer] Phone: CT HEAD WO CONTRASTon 2019 CT HEAD WO CONTRAST EXAMINATION: CT OF THE HEAD WITHOUT CONTRAST 04/18/2020 4:43 pm TECHNIQUE: CT of the head was performed without the administration of intravenous contrast. Dose modulation, iterative reconstruction, and/or weight based adjustment of the mA/kV was utilized to reduce the radiation dose to as low as reasonably achievable. COMPARISON: None. HISTORY: ORDERING SYSTEM PROVIDED HISTORY: Dizziness TECHNOLOGIST PROVIDED HISTORY: Reason for Exam: dizziness for the past two weeks. patient did fall one week ago FINDINGS: BRAIN/VENTRICLES: There is no acute intracranial hemorrhage, mass effect or midline shift. No abnormal extra-axial fluid collection. The carlson-white differentiation is maintained without evidence of an acute infarct. There is no evidence of hydrocephalus. ORBITS: The visualized portion of the orbits demonstrate no acute abnormality. SINUSES: The visualized paranasal sinuses and mastoid air cells appear clear. SOFT TISSUES/SKULL: No acute abnormality of the visualized skull or soft tissues. IMPRESSION: Negative CT brain with no acute intracranial abnormality. Interpreted by: Huma Contreras MD Signed by: Huma Contreras MD 04/18/20 Final result Normal [facility] CBCon 04-16-2020 Erythrocyte distribution width (RBC) [Ratio] 13.0 % Normal 11.8-14.4 [facility] Comment on above: Performed By: #### C MEERA HARRIS, TSH #### [facility] [address] [place] [address] [phone] Plant Anatomist: Beau Troncoso MD Hematocrit (Bld) [Volume fraction] 45.8 % Normal 36.3-47.1 [facility] Comment on above: Performed By: #### C MEERA HARRIS, TSH #### [facility] [address] [place] [address] [phone] Plant Anatomist: Beau Troncoso MD Hemoglobin (Bld) [Mass/Vol] 14.3 g/dL Normal 11.9-15.1 [facility] Comment on above: Performed By: #### C MEERA HARRIS, TSH #### [facility] [address] [place] [address] [phone] Plant Anatomist: Beau Troncoso MD MCH (RBC) [Entitic mass] 29.5 pg Normal 25.2-33.5 [facility] Comment on above: Performed By: #### C KIMBERLY CP, TSH #### [address] [address] Plant Anatomist: Beau Troncoso MD MCHC (RBC) [Mass/Vol] 31.2 g/dL Normal 28.4-34.8 [facility] Comment on above: Performed By: #### C KIMBERLY CP, TSH #### [facility] [address] [place] [address] Plant Anatomist: Beau Troncoso MD MCV (RBC) [Entitic vol] 94.6 fL Normal 82.6-102.9 [facility] Comment on above: Performed By: #### C MEERA HARRIS, TSH #### [address] [address] Plant Anatomist: Beau Troncoso MD NRBC Automated 0.0 per 100 WBC Normal 0.0 [facility] Comment on above: Performed By: #### C MEERA HARRIS, TSH #### [facility] [address] [place] [phone] Plant Anatomist: Beau Troncoso MD Platelet mean volume (Bld) [Entitic vol] 9.6 fL Normal 8.1-13.5 [facility] Comment on above: Performed By: #### C MEERA HARRIS, TSH #### [facility] [address] [place] [phone] Plant Anatomist: Beau Troncoso MD Platelets (Bld) [#/Vol] 419 10*3/uL Normal 138-453 [facility] Comment on above: Performed By: #### C KIMBERLY CP, TSH #### [facility] [address] [place] [phone] Plant Anatomist: Beau Troncoso MD RBC (Bld) [#/Vol] 4.84 10*6/uL Normal 3.95-5.11 [facility] Comment on above: Performed By: #### C MEERA HARRIS, TSH #### [facility] [address] [place], [place] [phone] Plant Anatomist: Beau Troncoso MD WBC (Bld) [#/Vol] 7.6 10*3/uL Normal 3.5-11.3 [facility] Comment on above: Performed By: #### C MEERA HARRIS, TSH #### [facility] [address] [place], [place] [phone] Plant Anatomist: Beau Troncoso MD Erythrocyte distribution width (RBC) [Ratio] 13.0 % 11.8 - 14.4 % [place] Hematocrit (Bld) [Volume fraction] 45.8 % 36.3 - 47.1 % [place] Hemoglobin (Bld) [Mass/Vol] 14.3 g/dL 11.9 - 15.1 g/dL [place] MCH (RBC) [Entitic mass] 29.5 pg 25.2 - 33.5 pg [place] MCHC (RBC) [Mass/Vol] 31.2 g/dL 28.4 - 34.8 g/dL [place] MCV (RBC) [Entitic vol] 94.6 fL 82.6 - 102.9 fL [place] Platelet mean volume (Bld) [Entitic vol] 9.6 fL 8.1 - 13.5 fL [place] Platelets (Bld) [#/Vol] 419 10*3/uL [place] RBC (Bld) [#/Vol] 4.84 10*6/uL 3.95 - 5.1 1 m/uL [place] WBC (Bld) [#/Vol] 0.0 10*3/uL 0.0 per 10 0 WBC [place] WBC (Bld) [#/Vol] 7.6 10*3/uL [place] Comp Metabolic Profon 2019 (cont.) Normal [facility] Comment on above: Result Comment: Aver age GFR for 60-69 years old: 85 mL/min/1.73sq m Chronic Kidney Disease: <60 mL/min/1.73sq m Kidney failure: <15 mL/min/1.73sq m eGFR calculated using average adult body mass. Additional eGFR calculator available at: http://www.[employer]/multiple_crcl_2012.htm Performed By: #### C EMERA HARRIS, TSH #### [facility] [address] [place] [phone] Plant Anatomist: Beau Troncoso MD Albumin [Mass/Vol] 4.0 g/dL Normal 3.5-5.2 [facility] Comment on above: Performed By: #### Felisha HARRIS CP, TSH #### [facility] [address] [place] [phone] Plant Anatomist: Beau Troncoso MD Albumin/Globulin [Mass ratio] 1.4 {ratio} Normal 1.0-2.5 [facility] Comment on above: Performed By: #### Felisha HARRIS CP, TSH #### [facility] [address] [place] [phone] Plant Anatomist: Beau Troncoso MD Alkaline Phos 67 U/L Normal 35-104 [facility] Comment on above: Performed By: #### Felisha HARRIS CP, TSH #### [facility] [address] [place] [phone] Plant Anatomist: Beau Troncoso MD ALT [Catalytic activity/Vol] 13 U/L Normal 5-33 [facility] Comment on above: Performed By: #### C MEERA HARRIS, TSH #### [employer] [facility] [address] [place] [phone] Plant Anatomist: Beau Troncoso MD Anion gap [Moles/Vol] 8 mmol/L Low 9-17 [facility] Comment on above: Performed By: #### C BC, CP, TSH #### [facility] [address] [place] [phone] Plant Anatomist: Beau Troncoso MD AST [Catalytic activity/Vol] 12 U/L Normal <32 [facility] Comment on above: Performed By: #### C BC, CP, TSH #### [facility] [address] [place] [address] Plant Anatomist: Beau Troncoso MD Bilirubin Ql (U) 0.30 mg/dL Normal 0.3-1.2 [facility] Comment on above: Performed By: #### C BC, CP, TSH #### [facility] [address] [place] [address] Plant Anatomist: Beau Troncoso MD Calcium [Mass/Vol] 8.7 mg/dL Normal 8.6-10.4 [facility] Comment on above: Performed By: #### C BC, CP, TSH #### [facility] [address] [place] [address] Plant Anatomist: Beau Troncoso MD Chloride [Moles/Vol] 102 mmol/L Normal 98-107 [facility] Comment on above: Performed By: #### C BC, CP, TSH #### [facility] [address] [place] [phone] Plant Anatomist: Beau Troncoso MD CO2 [Moles/Vol] 32 mmol/L High 20-31 [facility] Comment on above: Performed By: #### C BC, CP, TSH #### [facility] [address] [place] [address] Plant Anatomist: Beau Troncoso MD Creatinine [Mass/Vol] 0.78 mg/dL Normal 0.50-0.90 [facility] Comment on above: Performed By: #### C BC, CP, TSH #### [facility] [address] [place] [address] Plant Anatomist: Beau Troncoso MD GFR, Amer >60 Normal >60 [facility] Comment on above: Performed By: #### C BC CP, TSH #### [facility] [address] [place] [phone] Plant Anatomist: Beau Troncoso MD GFR,non Amer >60 Normal >60 [facility] Comment on above: Performed By: #### C BC, CP, TSH #### [facility] [address] [place] [address] Plant Anatomist: Beau Troncoso MD Glucose [Mass/Vol] 86 mg/dL Normal 70-99 [facility] Comment on above: Performed By: #### C BC CP, TSH #### [facility] [address] [place] [phone] Plant Anatomist: Beau Troncoso MD Potassium [Moles/Vol] 4.7 mmol/L Normal 3.7-5.3 [facility] Comment on above: Performed By: #### C BC CP, TSH #### [address] [address] Plant Anatomist: Beau Troncoso MD Protein [Mass/Vol] 6.8 g/dL Normal 6.4-8.3 [facility] Comment on above: Performed By: #### C BC CP, TSH #### [facility] [address] [place] [phone] Plant Anatomist: Beau Troncoso MD Sodium [Moles/Vol] 142 mmol/L Normal 135-144 [facility] Comment on above: Performed By: #### C BC, CP, TSH #### [facility] [address] [place] [address] Plant Anatomist: Beau Troncoso MD Urea nitrogen [Mass/Vol] 22 mg/dL Normal 8-23 [facility] Comment on above: Performed By: #### C BC, CP, TSH #### [facility] [address] [place] [address] Plant Anatomist: Beau Troncoso MD BUN/CRE Ratio NOT REPORTED Normal 9-20 [facility] Comment on above: Performed By: #### C BC, CP, TSH #### [facility] [address] [place] [address] Plant Anatomist: Beau Troncoso MD Staging: NOT REPORTED Normal [facility] Comment on above: Performed By: #### C BC, CP, TSH #### [facility] [address] [place], [place] [phone] Plant Anatomist: Beau Trocnoso MD [facility] Metabolic [facility] 04-16-2020 Albumin [Mass/Vol] 4 g/dL 3.5 - 5.2 g/dL [place] Albumin/Globulin [Mass ratio] 1.4 {ratio} [place] ALP [Catalytic activity/Vol] 67 U/L 35 - 104 U/L [place] ALT [Catalytic activity/Vol] 13 U/L 5 - 33 U/L [place] Anion gap [Moles/Vol] 8 mmol/L Low 9 - 17 mmol/L [place] AST [Catalytic activity/Vol] 12 U/L <32 [place] Bilirubin Ql (U) 0.30 mg/dL 0.3 - 1.2 mg/dL [place] Bun/Cre Ratio NOT REPORTED [place] Calcium [Mass/Vol] 8.7 mg/dL 8.6 - 10. 4 mg/dL [place] Chloride [Moles/Vol] 102 mmol/L 98 - 10 7 mmol/L [place] CO2 [Moles/Vol] 32 mmol/L High 20 - 31 mmol/L [place] Creatinine [Mass/Vol] 0.78 mg/dL 0.5 - 0.9 mg/dL [place] GFR >60 >60 mL/min [place] GFR Non- >60 >60 mL/min [place] GFR/1.73 sq M predicted among non-blacks MDRD (S/P/Bld) [Vol rate/Area] [place] Comment on above: Average GFR for 60-6 9 years old: 85 mL/min/1.73sq m Chronic Kidney Disease: <60 mL/min/1.73sq m Kidney failure: <15 mL/min/1.73sq m eGFR calculated using average adult body mass. Additional eGFR calculator available at: http://www.[employer]/multiple_crcl_2012.htm GFR/1.73 sq M predicted among non-blacks MDRD (S/P/Bld) [Vol rate/Area] NOT REPORTED [place] Glucose [Mass/Vol] 86 mg/dL 70 - 99 mg/dL [place] Interpretation and review of laboratory results Abnormal [place] Potassium [Moles/Vol] 4.7 mmol/L 3.7 - 5.3 mmol/L [place] Protein [Mass/Vol] 6.8 g/dL 6.4 - 8.3 g/dL [place] Sodium [Moles/Vol] 142 mmol/L 135 - 144 mmol/L [place] Urea nitrogen [Mass/Vol] 22 mg/dL 8 - 23 mg/dL [place] Hemoglobin A1Con 04-16-2020 Glucose [Mass/Vol] 126 mg/dL [place] Comment on above: The ADA and AACC rec ommend providing the estimated average glucose result to permit better patient understanding of their HBA1c result. HbA1c (Bld) [Mass fraction] 6.0 % 4 - 6 % [place] TSH without Reflexon 020 TSH Qn 0.89 m[IU]/L [place] Thyroid Stim. Horm.on 2019 TSH Qn 0.89 m[IU]/L Normal 0.30-5.00 [facility] Comment on above: Performed By: #### C BC, CP, TSH #### [facility] [address] [place] [address] Plant Anatomist: Beau Troncoso MD MRI SHOULDER RIGHT WO REBEL [facility] 03-25-2020 MRI SHOULDER RIGHT WO CONTRAST EXAMINATION: MRI OF THE RIGHT SHOULDER WITHOUT CONTRAST 03/23/2020 6:05 pm TECHNIQUE: Multiplanar multisequence MRI of the right shoulder was performed without the administration of intravenous contrast. COMPARISON: None. HISTORY: ORDERING SYSTEM PROVIDED HISTORY: Osteoarthritis of right acromioclavicular joint TECHNOLOGIST PROVIDED HISTORY: Reason for Exam: Osteoarthritis of right acromioclavicular joint Acuity: Acute Type of Exam: Initial Additional signs and symptoms: Patient c/o Right shoulder pain - No known injury. Relevant Medical/Surgical History: No surgical hx to area of interest. FINDINGS: ROTATOR CUFF: Supraspinatus mild tendinosis. No discrete supraspinatus tear. Minimal interstitial tear measuring 2 mm at the infraspinatus musculotendinous junction. No additional infraspinatus tear. Mild bursal surface fraying of the supraspinatus and infraspinatus tendons. Teres minor and subscapularis tendons are intact. No rotator cuff muscle atrophy or edema. BICEPS TENDON: Long head biceps tendon is intact and normally located. LABRUM: No discrete labral tear or paralabral cyst. GLENOHUMERAL JOINT: No glenohumeral joint effusion. No large cartilage defect. Inferior glenohumeral ligament is intact. AC JOINT AND ACROMIOCLAVICULAR ARCH: Moderate acromioclavicular degenerative changes. Reactive edema is present in the distal clavicle acromion. Coracoclavicular ligament is intact. No fluid in the subacromial/subdeltoid bursa. Coracohumeral interval is maintained. BONE MARROW: Reactive marrow edema in the distal clavicle and acromion. No marrow replacing lesion. No periarticular soft tissue edema. Remainder of the bone marrow signal is normal. OUTLET SPACES: The suprascapular notch and quadrilateral space are without obstructing or space occupying lesions. IMPRESSION: 1. Moderate acromioclavicular osteoarthritis with reactive edema in the distal clavicle and acromion. 2. Minimal 2 mm interstitial tear of the infraspinatus tendon. Mild bursal surface fraying of the supraspinatus and infraspinatus tendons. No additional rotator cuff tear. 3. No biceps tear. Interpreted by: Blas Godwin MD Signed by: Blas Godwin MD 03/25/20 Final result Normal [facility] 1. Moderate acromioclavicular osteoarthritis with reactive edema in the distal clavicle and acromion. 2. Minimal 2 mm interstitial tear of the infraspinatus tendon. Mild bursal surface fraying of the supraspinatus and infraspinatus tendons. No additional rotator cuff tear. 3. No biceps tear. [facility], [place] EXAMINATION: MRI OF THE RIGHT SHOULDER WITHOUT CONTRAST 03/23/2020 6:05 pm TECHNIQUE: Multiplanar multisequence MRI of the right shoulder was performed without the administration of intravenous contrast. COMPARISON: None. HISTORY: ORDERING SYSTEM PROVIDED HISTORY: Osteoarthritis of right acromioclavicular joint TECHNOLOGIST PROVIDED HISTORY: Reason for Exam: Osteoarthritis of right acromioclavicular joint Acuity: Acute Type of Exam: Initial Additional signs and symptoms: Patient c/o Right shoulder pain - No known injury. Relevant Medical/Surgical History: No surgical hx to area of interest. FINDINGS: ROTATOR CUFF: Supraspinatus mild tendinosis. No discrete supraspinatus tear. Minimal interstitial tear measuring 2 mm at the infraspinatus musculotendinous junction. No additional infraspinatus tear. Mild bursal surface fraying of the supraspinatus and infraspinatus tendons. Teres minor and subscapularis tendons are intact. No rotator cuff muscle atrophy or edema. BICEPS TENDON: Long head biceps tendon is intact and normally located. LABRUM: No discrete labral tear or paralabral cyst. GLENOHUMERAL JOINT: No glenohumeral joint effusion. No large cartilage defect. Inferior glenohumeral ligament is intact. AC JOINT AND ACROMIOCLAVICULAR ARCH: Moderate acromioclavicular degenerative changes. Reactive edema is present in the distal clavicle acromion. Coracoclavicular ligament is intact. No fluid in the subacromial/subdeltoid bursa. Coracohumeral interval is maintained. BONE MARROW: Reactive marrow edema in the distal clavicle and acromion. No marrow replacing lesion. No periarticular soft tissue edema. Remainder of the bone marrow signal is normal. OUTLET SPACES: The suprascapular notch and quadrilateral space are without obstructing or space occupying lesions. [facility]- [place], [place] Jose Antonio, Mhpn Incoming Radiant Results From [employer] - 03/25/2020 4:57 PM EDT EXAMINATION: MRI OF THE RIGHT SHOULDER WITHOUT CONTRAST 03/23/2020 6:05 pm TECHNIQUE: Multiplanar multisequence MRI of the right shoulder was performed without the administration of intravenous contrast. COMPARISON: None. HISTORY: ORDERING SYSTEM PROVIDED HISTORY: Osteoarthritis of right acromioclavicular joint TECHNOLOGIST PROVIDED HISTORY: Reason for Exam: Osteoarthritis of right acromioclavicular joint Acuity: Acute Type of Exam: Initial Additional signs and symptoms: Patient c/o Right shoulder pain - No known injury. Relevant Medical/Surgical History: No surgical hx to area of interest. FINDINGS: ROTATOR CUFF: Supraspinatus mild tendinosis. No discrete supraspinatus tear. Minimal interstitial tear measuring 2 mm at the infraspinatus musculotendinous junction. No additional infraspinatus tear. Mild bursal surface fraying of the supraspinatus and infraspinatus tendons. Teres minor and subscapularis tendons are intact. No rotator cuff muscle atrophy or edema. BICEPS TENDON: Long head biceps tendon is intact and normally located. LABRUM: No discrete labral tear or paralabral cyst. GLENOHUMERAL JOINT: No glenohumeral joint effusion. No large cartilage defect. Inferior glenohumeral ligament is intact. AC JOINT AND ACROMIOCLAVICULAR ARCH: Moderate acromioclavicular degenerative changes. Reactive edema is present in the distal clavicle acromion. Coracoclavicular ligament is intact. No fluid in the subacromial/subdeltoid bursa. Coracohumeral interval is maintained. BONE MARROW: Reactive marrow edema in the distal clavicle and acromion. No marrow replacing lesion. No periarticular soft tissue edema. Remainder of the bone marrow signal is normal. OUTLET SPACES: The suprascapular notch and quadrilateral space are without obstructing or space occupying lesions. IMPRESSION: 1. Moderate acromioclavicular osteoarthritis with reactive edema in the distal clavicle and acromion. 2. Minimal 2 mm interstitial tear of the infraspinatus tendon. Mild bursal surface fraying of the supraspinatus and infraspinatus tendons. No additional rotator cuff tear. 3. No biceps tear. [place] C-Reactive Proteinon 11-01-2 020 CRP [Mass/Vol] 13 mg/L High 0 - 5 mg/L [place] CBC Auto Differentialon 10-20 Basophils (Bld) [#/Vol] 0.10 10*3/uL [place] Basophils/100 WBC (Bld) 1 % 0 - 2 % [place] Differential Type NOT REPORTED [place] Eosinophils (Bld) [#/Vol] 0.20 10*3/uL [place] Eosinophils/100 WBC (Bld) 3 % 0 - 4 % [place] Erythrocyte distribution width (RBC) [Ratio] 13.0 % 11.5 - 14.9 % [place] Hematocrit (Bld) [Volume fraction] 42.0 % 36 - 46 % [place] Hemoglobin (Bld) [Mass/Vol] 13.8 g/dL 12 - 16 g/dL [place] Interpretation and review of laboratory results Abnormal [place] Lymphocytes (Bld) [#/Vol] 1.10 10*3/uL [place] Lymphocytes/100 WBC (Bld) 13 % Low 24 - 44 % [place] MCH (RBC) [Entitic mass] 30.5 pg 26 - 34 pg [place] MCHC (RBC) [Mass/Vol] 32.7 g/dL 31 - 3 7 g/dL [place] MCV (RBC) [Entitic vol] 93.1 fL 80 - 100 fL [place] Monocytes (Bld) [#/Vol] 0.50 10*3/uL [place] Monocytes/100 WBC (Bld) 5 % 1 - 7 % [place] Platelet mean volume (Bld) [Entitic vol] 6.9 fL 6 - 12 fL [place] Platelets (Bld) [#/Vol] 382 10*3/uL [place] Platelets (Bld) [#/Vol] NOT REPORTED [place] RBC (Bld) [#/Vol] 4.51 10*6/uL 4 - 5.2 m/uL [place] RBC morphology finding Nom (Bld) NOT REPORTED [place] Segmented neutrophils/100 WBC (Bld) 78 % High 36 - 66 % [place] Segs Absolute 6.90 [place] WBC (Bld) [#/Vol] 8.8 10*3/uL [place] WBC (Bld) [#/Vol] NOT REPORTED per 100 WBC [place] WBC Morphology NOT REPORTED [place], [place] Comprehensive Metabolic Pane deven 11-02-2019 Albumin [Mass/Vol] 4.1 g/dL 3.5 - 5.2 g/dL [place] Albumin/Globulin [Mass ratio] NOT REPORTED [place] ALP [Catalytic activity/Vol] 61 U/L 35 - 104 U/L [place] ALT [Catalytic activity/Vol] 13 U/L 5 - 33 U/L [place] Anion gap [Moles/Vol] 7 mmol/L Low 9 - 17 mmol/L [place] AST [Catalytic activity/Vol] 12 U/L <32 [place] Bilirubin Ql (U) 0.29 mg/dL Low 0.3 - 1.2 mg/dL [place] Bun/Cre Ratio NOT REPORTED [place] Calcium [Mass/Vol] 8.7 mg/dL 8.6 - 10. 4 mg/dL [place] Chloride [Moles/Vol] 101 mmol/L 98 - 10 7 mmol/L [place] CO2 [Moles/Vol] 31 mmol/L 20 - 31 mmol/L [place] Creatinine [Mass/Vol] 0.72 mg/dL 0.5 - 0.9 mg/dL [place] GFR >60 >60 mL/min [place] GFR Non- >60 >60 mL/min [place] GFR/1.73 sq M predicted among non-blacks MDRD (S/P/Bld) [Vol rate/Area] NOT REPORTED [place] GFR/1.73 sq M predicted among non-blacks MDRD (S/P/Bld) [Vol rate/Area] [place], [place] Comment on above: Average GFR for 60-6 9 years old: 85 mL/min/1.73sq m Chronic Kidney Disease: <60 mL/min/1.73sq m Kidney failure: <15 mL/min/1.73sq m eGFR calculated using average adult body mass. Additional eGFR calculator available at: http://www.[employer]/Dotspin_crcl_2012.htm Glucose [Mass/Vol] 118 mg/dL High 70 - 99 mg/dL [place] Potassium [Moles/Vol] 4.8 mmol/L 3.7 - 5.3 mmol/L [place] Protein [Mass/Vol] 7.5 g/dL 6.4 - 8.3 g/dL [place] Sodium [Moles/Vol] 139 mmol/L 135 - 144 mmol/L [place] Urea nitrogen [Mass/Vol] 21 mg/dL 8 - 23 mg/dL [place] D-Dimer, Quantitativeon 10-20 D-Dimer, Quant <0.27 [place], [place] Comment on above: When combined with a low clinical probability, a D dimer value of <0.50 mg/L FEU is considered negative for DVT and PE (negative predictive value of 98%, sensitivity of 97%). If this test is not being used to help rule out DVT and PE, then the following reference range should be utilized: 0.00 - 0.59 mg/L FEU. The D-Dimer assay is intended for use as an aid in the diagnosis of venous thromboembolism (DVT and PE) and the results should be interpreted in conjunction with the patient's medical history, clinical presentation, and other findings. Elevated levels of D-dimer activity can be seen in any state of coagulation activation and is not recommended in patients with therapeutic dose anticoagulant therapy for >24 hours, fibrinolytic therapy within the previous 7 days, trauma or surgery within the previous 4 weeks, disseminated malignancies, aortic aneurysm, sepsis, severe infections, pneumonia, severe skin infections, liver cirrhosis, advanced age, coronary disease, diabetes, and . A very low percentage of patients with DVT may yield D-dimer results below the cutoff of 0.5 mg/L FEU. This is known to be more prevalent in patients with distal DVT. LACTATE DEHYDROGENASEon 10-20 LD 173 U/L 135 - 214 U/L [place] Lactic Acid, Plasmaon 2019 Lactate [Moles/Vol] 0.5 mmol/L 0.5 - 2. 2 mmol/L [place] Lactic Acid, Whole Blood NOT REPORTED 0.7 - 2.1 mmol/L [place] Otheron 11-02-2019 Interpretation and review of laboratory results Abnormal [place] Immature granulocytes (Bld) [#/Vol] NOT REPORTED [place] Troponinon 11-02-2019 Troponin I.cardiac [Mass/Vol] NOT REPORTED [place] Troponin T.cardiac [Mass/Vol] NOT REPORTED <0.03 ng/mL [place] Troponin, High Sensitivity <6 0 - 14 ng/L [place] Comment on above: High Sensitivity Troponin values cannot be compared with other Troponin methodologies. Patients with high levels of Biotin oral intake (i.e >5mg/day) may have falsely decreased Troponin levels. Samples collected within 8 hours of biotin intake may require additional information for diagnosis. Troponin I.cardiac [Mass/Vol] NOT REPORTED [place] Troponin T.cardiac [Mass/Vol] NOT REPORTED <0.03 ng/mL [place] Troponin, High Sensitivity <6 0 - 14 ng/L [place] Comment on above: High Sensitivity Troponin values cannot be compared with other Troponin methodologies. Patients with high levels of Biotin oral intake (i.e >5mg/day) may have falsely decreased Troponin levels. Samples collected within 8 hours of biotin intake may require additional information for diagnosis. XR CHEST PORTABLEon 11-02-19 20 EXAMINATION: ONE XRA Y VIEW OF THE CHEST 11/02/2019 10:26 am COMPARISON: Chest radiograph performed 10/05/2019. HISTORY: ORDERING SYSTEM PROVIDED HISTORY: SOB TECHNOLOGIST PROVIDED HISTORY: SOB Reason for Exam: sob Acuity: Acute Type of Exam: Unknown FINDINGS: There is chronic pulmonary change. There is no acute consolidation or effusion. There is no pneumothorax. The heart is enlarged. The upper abdomen is unremarkable. The extrathoracic soft tissues are unremarkable. [place] Cardiomegaly and chronic pulmonary change without acute pulmonary process. [place], [place] Jose Antonio, Mhpn Incoming Radiant Results From [employer] - 11/02/2019 10:59 AM EDT EXAMINATION: ONE XRAY VIEW OF THE CHEST 11/02/2019 10:26 am COMPARISON: Chest radiograph performed 10/05/2019. HISTORY: ORDERING SYSTEM PROVIDED HISTORY: SOB TECHNOLOGIST PROVIDED HISTORY: SOB Reason for Exam: sob Acuity: Acute Type of Exam: Unknown FINDINGS: There is chronic pulmonary change. There is no acute consolidation or effusion. There is no pneumothorax. The heart is enlarged. The upper abdomen is unremarkable. The extrathoracic soft tissues are unremarkable. IMPRESSION: Cardiomegaly and chronic pulmonary change without acute pulmonary process. [place] B.A.L. CELL COUNTon 10-07-19 20 Fluid Diff Comment Reviewed by pathologist: Justin Chambers D.O. [place], [place] Comment on above: SLIDE REVIEWED. MACR OPHAGES AND MIXED INFLAMMATORY CELLS NOTED. CORRECTED ON 10/06 AT 1306: PREVIOUSLY REPORTED TO BE REVIEWED BY PATHOLOGIST RBC (Bld) [#/Vol] 913 /mm3 [place], [place] Specimen type Nom (Spec) .BRONCHIAL WASHINGS [place] WBC (Bld) [#/Vol] 38 /mm3 [place], [place] Culture, Respiratoryon 10-06 Culture NORMAL RESPIRATORY CHERYL MODERATE GROWTH [place], [place] Direct Exam FEW NEUTROPHILS Abnormal [place], [place] Interpretation and review of laboratory results Abnormal [place] Special Requests NOT REPORTED [place] Specimen Description .BRONCHIAL WASHINGS [place] Fungal stainon 10-07-2019 Direct Exam NO FUNGAL ELEMENTS SEEN [place] Special Requests NOT REPORTED [place] Specimen Description .BRONCHIAL WASHINGS [place] Otheron 10-07-2019 Direct Exam Positive Abnormal [place] CBC with DIFFon 10-06-2019 Basophils (Bld) [#/Vol] 0.14 10*3/uL [place] Basophils/100 WBC (Bld) 1 % 0 - 2 % [place] Differential Type NOT REPORTED [place] Eosinophils (Bld) [#/Vol] 0.00 10*3/uL [place] Eosinophils/100 WBC (Bld) 0 % 0 - 4 % [place] Erythrocyte distribution width (RBC) [Ratio] 13.4 % 11.5 - 14.9 % [place] Hematocrit (Bld) [Volume fraction] 40.9 % 36 - 46 % [place] Hemoglobin (Bld) [Mass/Vol] 13.5 g/dL 12 - 16 g/dL [place] Interpretation and review of laboratory results Abnormal [place] Lymphocytes (Bld) [#/Vol] 1.15 10*3/uL [place] Lymphocytes/100 WBC (Bld) 8 % Low 24 - 44 % [place] MCH (RBC) [Entitic mass] 30.6 pg 26 - 34 pg [place] MCHC (RBC) [Mass/Vol] 33.0 g/dL 31 - 3 7 g/dL [place] MCV (RBC) [Entitic vol] 92.7 fL 80 - 100 fL [place] Monocytes (Bld) [#/Vol] 0.29 10*3/uL [place], [place] Monocytes/100 WBC (Bld) 2 % 1 - 7 % [place] Morphology Den (Bld) [Interp] Normal [place] Platelet mean volume (Bld) [Entitic vol] 7.3 fL 6 - 12 fL [place] Platelets (Bld) [#/Vol] NOT REPORTED [place] Platelets (Bld) [#/Vol] 419 10*3/uL [place] RBC (Bld) [#/Vol] 4.41 10*6/uL 4 - 5.2 m/uL [place] RBC morphology finding Nom (Bld) NOT REPORTED [place] Segmented neutrophils/100 WBC (Bld) 89 % High 36 - 66 % [place] Segs Absolute 12.82 [place] WBC (Bld) [#/Vol] NOT REPORTED per 100 WBC [place] WBC (Bld) [#/Vol] 14.4 10*3/uL [place] WBC Morphology NOT REPORTED [place], [place] Cell Count with Diff, BALon 10-06-2019 BAL Diff Comment TO BE REVIEWED BY PATHOLOGIST [place], [place] Columnar Epis BAL PRESENT [place], [place] Eosinophils/100 WBC (Bld) 4 % High 0 - 1 % [place] Interpretation and review of laboratory results Abnormal [place] Lymphocytes/100 WBC (Bld) 13 % High 8 - 12 % [place] Macrophages, BAL 61 % Low 85 - 95 % [place], [place] Segmented neutrophils/100 WBC (Bld) 22 % High 0 - 10 % [place] Comp Metabolic Profon 2019 Albumin [Mass/Vol] 3.5 g/dL 3.5 - 5.2 g/dL [place] Albumin/Globulin [Mass ratio] NOT REPORTED [place] ALP [Catalytic activity/Vol] 49 U/L 35 - 104 U/L [place] ALT [Catalytic activity/Vol] 10 U/L 5 - 33 U/L [place] Anion gap [Moles/Vol] 12 mmol/L 9 - 17 mmol/L [place] AST [Catalytic activity/Vol] 12 U/L <32 [place] Bilirubin Ql (U) 0.30 mg/dL 0.3 - 1.2 mg/dL [place] Bun/Cre Ratio NOT REPORTED [place] Calcium [Mass/Vol] 9.0 mg/dL 8.6 - 10. 4 mg/dL [place] Chloride [Moles/Vol] 100 mmol/L 98 - 10 7 mmol/L [place] CO2 [Moles/Vol] 26 mmol/L 20 - 31 mmol/L [place] Creatinine [Mass/Vol] 0.72 mg/dL 0.5 - 0.9 mg/dL [place] GFR >60 >60 mL/min [place] GFR Non- >60 >60 mL/min [place] GFR/1.73 sq M predicted among non-blacks MDRD (S/P/Bld) [Vol rate/Area] [place], [place] Comment on above: Average GFR for 60-6 9 years old: 85 mL/min/1.73sq m Chronic Kidney Disease: <60 mL/min/1.73sq m Kidney failure: <15 mL/min/1.73sq m eGFR calculated using average adult body mass. Additional eGFR calculator available at: http://www.[employer]/multiple_crcl_2012.htm GFR/1.73 sq M predicted among non-blacks MDRD (S/P/Bld) [Vol rate/Area] NOT REPORTED [place] Glucose [Mass/Vol] 145 mg/dL High 70 - 99 mg/dL [place] Potassium [Moles/Vol] 4.1 mmol/L 3.7 - 5.3 mmol/L [place] Protein [Mass/Vol] 6.7 g/dL 6.4 - 8.3 g/dL [place] Sodium [Moles/Vol] 138 mmol/L 135 - 144 mmol/L [place] Urea nitrogen [Mass/Vol] 23 mg/dL 8 - 23 mg/dL [place] Culture, Virus, Respiratoryo n 10-06-2019 Culture VIRAL RESPIRATORY CULTURES ARE NOT LONGER PERFORMED [place], [place] Special Requests NOT REPORTED [place] Specimen Description .BRONCHIAL WASHINGS [place] Otheron 10-06-2019 Interpretation and review of laboratory results Abnormal [place] Immature granulocytes (Bld) [#/Vol] NOT REPORTED [place] T4, Freeon 10-06-2019 Interpretation and review of laboratory results Abnormal [place] Thyroxine, Free 2.03 ng/dL High 0.93 - 1.7 ng/dL [place] TSH with Reflexon 10-06-2019 TSH Qn 0.10 m[IU]/L [place] Basic Metabolic Panel w/ Ref alvin to MGon 10-05-2019 Anion gap [Moles/Vol] 9 mmol/L 9 - 17 mmol/L [place] Bun/Cre Ratio NOT REPORTED [place] Calcium [Mass/Vol] 8.8 mg/dL 8.6 - 10. 4 mg/dL [place] Chloride [Moles/Vol] 102 mmol/L 98 - 10 7 mmol/L [place] CO2 [Moles/Vol] 29 mmol/L 20 - 31 mmol/L [place] Creatinine [Mass/Vol] 0.72 mg/dL 0.5 - 0.9 mg/dL [place] GFR >60 >60 mL/min [place] GFR Non- >60 >60 mL/min [place] GFR/1.73 sq M predicted among non-blacks MDRD (S/P/Bld) [Vol rate/Area] NOT REPORTED [place] GFR/1.73 sq M predicted among non-blacks MDRD (S/P/Bld) [Vol rate/Area] [place], [place] Comment on above: Average GFR for 60-6 9 years old: 85 mL/min/1.73sq m Chronic Kidney Disease: <60 mL/min/1.73sq m Kidney failure: <15 mL/min/1.73sq m eGFR calculated using average adult body mass. Additional eGFR calculator available at: http://www.[employer]/multiple_crcl_2012.htm Glucose [Mass/Vol] 97 mg/dL 70 - 99 mg/dL [place] Potassium [Moles/Vol] 4.3 mmol/L 3.7 - 5.3 mmol/L [place] Sodium [Moles/Vol] 140 mmol/L 135 - 144 mmol/L [place], [place] Urea nitrogen [Mass/Vol] 18 mg/dL 8 - 23 mg/dL [place] CBC with DIFFon 10-05-2019 Basophils (Bld) [#/Vol] 0.10 10*3/uL [place] Basophils/100 WBC (Bld) 1 % 0 - 2 % [place] Differential Type NOT REPORTED [place] Eosinophils (Bld) [#/Vol] 0.50 10*3/uL [place] Eosinophils/100 WBC (Bld) 6 % High 0 - 4 % [place] Erythrocyte distribution width (RBC) [Ratio] 13.4 % 11.5 - 14.9 % [place] Hematocrit (Bld) [Volume fraction] 40.2 % 36 - 46 % [place] Hemoglobin (Bld) [Mass/Vol] 13.4 g/dL 12 - 16 g/dL [place] Interpretation and review of laboratory results Abnormal [place] Lymphocytes (Bld) [#/Vol] 2.50 10*3/uL [place] Lymphocytes/100 WBC (Bld) 30 % 24 - 44 % [place] MCH (RBC) [Entitic mass] 30.5 pg 26 - 34 pg [place] MCHC (RBC) [Mass/Vol] 33.3 g/dL 31 - 3 7 g/dL [place] MCV (RBC) [Entitic vol] 91.5 fL 80 - 100 fL [place] Monocytes (Bld) [#/Vol] 0.90 10*3/uL [place] Monocytes/100 WBC (Bld) 11 % High 1 - 7 % [place] Platelet mean volume (Bld) [Entitic vol] 6.9 fL 6 - 12 fL [place] Platelets (Bld) [#/Vol] 407 10*3/uL [place] Platelets (Bld) [#/Vol] NOT REPORTED [place] RBC (Bld) [#/Vol] 4.39 10*6/uL 4 - 5.2 m/uL [place] RBC morphology finding Nom (Bld) NOT REPORTED [place], [place] Segmented neutrophils/100 WBC (Bld) 52 % 36 - 66 % [place] Segs Absolute 4.20 [place] WBC (Bld) [#/Vol] NOT REPORTED per 100 WBC [place] WBC (Bld) [#/Vol] 8.1 10*3/uL [place] WBC Morphology NOT REPORTED [place] Otheron 10-05-2019 Immature granulocytes (Bld) [#/Vol] NOT REPORTED 0 % [place] XR CHEST PORTABLEon 10-05-19 EXAMINATION: ONE XRA Y VIEW OF THE CHEST 10/05/2019 3:19 pm COMPARISON: 09/15/2019 HISTORY: ORDERING SYSTEM PROVIDED HISTORY: Persistent cough, Hx COPD TECHNOLOGIST PROVIDED HISTORY: Persistent cough, Hx COPD Reason for Exam: PT CO chronic persistent dry cough for more than 6 months. PT HX COPD Acuity: Chronic Type of Exam: Ongoing Initial evaluation FINDINGS: Monitor wires overlie the chest. Trachea is midline. The cardiac silhouette is unremarkable. The left lung is clear. There is patchy airspace changes in the right lung base which could represent atelectasis or infiltrate. There is no significant pleural fluid. CT could better evaluate lung parenchyma if indicated. [place], [place] Jose Antonio, Mhpn Incoming Radiant Results From [employer] [employer] - 10/05/2019 6:01 PM EDT EXAMINATION: ONE XRAY VIEW OF THE CHEST 10/05/2019 3:19 pm COMPARISON: 09/15/2019 HISTORY: ORDERING SYSTEM PROVIDED HISTORY: Persistent cough, Hx COPD TECHNOLOGIST PROVIDED HISTORY: Persistent cough, Hx COPD Reason for Exam: PT CO chronic persistent dry cough for more than 6 months. PT HX COPD Acuity: Chronic Type of Exam: Ongoing Initial evaluation FINDINGS: Monitor wires overlie the chest. Trachea is midline. The cardiac silhouette is unremarkable. The left lung is clear. There is patchy airspace changes in the right lung base which could represent atelectasis or infiltrate. There is no significant pleural fluid. CT could better evaluate lung parenchyma if indicated. IMPRESSION: Patchy airspace disease representing atelectasis or infiltrate in the right lung base. Follow up to resolution is suggested. [place] Patchy airspace dise ase representing atelectasis or infiltrate in the right lung base. [facility] Perihilar and suprahilar airspace opacities could represent interstitial edema versus developing airspace disease. Please correlate exam findings. Follow-up to assure resolution following medical treatment course recommended [place] EXAMINATION: ONE XRA Y VIEW OF THE CHEST 09/15/2019 5:51 pm COMPARISON: 08/25/2019 HISTORY: ORDERING SYSTEM PROVIDED HISTORY: cough TECHNOLOGIST PROVIDED HISTORY: cough Reason for Exam: cough Acuity: Unknown Type of Exam: Unknown FINDINGS: The cardiomediastinal silhouette is normal in size and contour. Perihilar edema. Patchy suprahilar airspace opacities.. No pleural effusion or pneumothorax is present. [place] Jose Antonio, Mhpn Incoming Radiant Results From [facility] [employer] [employer] - 09/15/2019 6:05 PM EDT EXAMINATION: ONE XRAY VIEW OF THE CHEST 09/15/2019 5:51 pm COMPARISON: 08/25/2019 HISTORY: ORDERING SYSTEM PROVIDED HISTORY: cough TECHNOLOGIST PROVIDED HISTORY: cough Reason for Exam: cough Acuity: Unknown Type of Exam: Unknown FINDINGS: The cardiomediastinal silhouette is normal in size and contour. Perihilar edema. Patchy suprahilar airspace opacities.. No pleural effusion or pneumothorax is present. IMPRESSION: Perihilar and suprahilar airspace opacities could represent interstitial edema versus developing airspace disease. Please correlate exam findings. Follow-up to assure resolution following medical treatment course recommended [place] CBC auto differentialon Basophils (Bld) [#/Vol] 0.00 10*3/uL [place] Basophils/100 WBC (Bld) 0 % 0 - 2 % [place] Differential Type NOT REPORTED [place] Eosinophils (Bld) [#/Vol] 0.00 10*3/uL [place] Eosinophils/100 WBC (Bld) 0 % 0 - 4 % [place] Erythrocyte distribution width (RBC) [Ratio] 13.8 % 11.5 - 14.9 % [place] Hematocrit (Bld) [Volume fraction] 39.9 % 36 - 46 % [place] Hemoglobin (Bld) [Mass/Vol] 13.1 g/dL 12 - 16 g/dL [place] Interpretation and review of laboratory results Abnormal [place] Lymphocytes (Bld) [#/Vol] 1.00 10*3/uL [place] Lymphocytes/100 WBC (Bld) 8 % Low 24 - 44 % [place] MCH (RBC) [Entitic mass] 30.8 pg 26 - 34 pg [place] MCHC (RBC) [Mass/Vol] 32.9 g/dL 31 - 3 7 g/dL [place] MCV (RBC) [Entitic vol] 93.5 fL 80 - 100 fL [place] Monocytes (Bld) [#/Vol] 0.90 10*3/uL [place] Monocytes/100 WBC (Bld) 7 % 1 - 7 % [place] Platelet mean volume (Bld) [Entitic vol] 6.7 fL 6 - 12 fL [place] Platelets (Bld) [#/Vol] NOT REPORTED [place] Platelets (Bld) [#/Vol] 341 10*3/uL [place] RBC (Bld) [#/Vol] 4.27 10*6/uL 4 - 5.2 m/uL [place] RBC morphology finding Nom (Bld) NOT REPORTED [place] Segmented neutrophils/100 WBC (Bld) 85 % High 36 - 66 % [place] Segs Absolute 11.30 [place] WBC (Bld) [#/Vol] NOT REPORTED per 100 WBC [place] WBC (Bld) [#/Vol] 13.2 10*3/uL [place] WBC Morphology NOT REPORTED [place] Comprehensive Metabolic Pane l w/ Reflex to MGon 08-29-2019 Albumin [Mass/Vol] 3.3 g/dL Low 3.5 - 5.2 g/dL [place] Albumin/Globulin [Mass ratio] NOT REPORTED [place] ALP [Catalytic activity/Vol] 51 U/L 35 - 104 U/L [place] ALT [Catalytic activity/Vol] 28 U/L 5 - 33 U/L [place] Anion gap [Moles/Vol] 10 mmol/L 9 - 17 mmol/L [place] AST [Catalytic activity/Vol] 19 U/L <32 [place] Bilirubin Ql (U) 0.23 mg/dL Low 0.3 - 1.2 mg/dL [place] Bun/Cre Ratio NOT REPORTED [place] Calcium [Mass/Vol] 7.9 mg/dL Low 8.6 - 10. 4 mg/dL [place] Chloride [Moles/Vol] 104 mmol/L 98 - 10 7 mmol/L [place] CO2 [Moles/Vol] 28 mmol/L 20 - 31 mmol/L [place] Creatinine [Mass/Vol] 0.73 mg/dL 0.5 - 0.9 mg/dL [place] GFR >60 >60 mL/min [place] GFR Non- >60 >60 mL/min [place] GFR/1.73 sq M predicted among non-blacks MDRD (S/P/Bld) [Vol rate/Area] [place] Comment on above: Average GFR for 60-6 9 years old: 85 mL/min/1.73sq m Chronic Kidney Disease: <60 mL/min/1.73sq m Kidney failure: <15 mL/min/1.73sq m eGFR calculated using average adult body mass. Additional eGFR calculator available at: http://www.[employer]/multiple_crcl_2012.htm GFR/1.73 sq M predicted among non-blacks MDRD (S/P/Bld) [Vol rate/Area] NOT REPORTED [place] Glucose [Mass/Vol] 125 mg/dL High 70 - 99 mg/dL [place] Interpretation and review of laboratory results Abnormal [place] Potassium [Moles/Vol] 4.5 mmol/L 3.7 - 5.3 mmol/L [place] Protein [Mass/Vol] 5.9 g/dL Low 6.4 - 8.3 g/dL [place] Sodium [Moles/Vol] 142 mmol/L 135 - 144 mmol/L [place] Urea nitrogen [Mass/Vol] 28 mg/dL High 8 - 23 mg/dL [place] Otheron 08-29-2019 Immature granulocytes (Bld) [#/Vol] NOT REPORTED [place] CBC auto differentialon Absolute Bands # 0.14 [place] Bands 1 % 0 - 10 % [place] Basophils (Bld) [#/Vol] 0.00 10*3/uL [place] Basophils/100 WBC (Bld) 0 % 0 - 2 % [place] Differential Type NOT REPORTED [place] Eosinophils (Bld) [#/Vol] 0.00 10*3/uL [place] Eosinophils/100 WBC (Bld) 0 % 0 - 4 % [place] Erythrocyte distribution width (RBC) [Ratio] 13.8 % 11.5 - 14.9 % [place] Hematocrit (Bld) [Volume fraction] 40.1 % 36 - 46 % [place] Hemoglobin (Bld) [Mass/Vol] 13.2 g/dL 12 - 16 g/dL [place] Interpretation and review of laboratory results Abnormal [place] Lymphocytes (Bld) [#/Vol] 0.85 10*3/uL [place] Lymphocytes/100 WBC (Bld) 6 % Low 24 - 44 % [place] MCH (RBC) [Entitic mass] 30.8 pg 26 - 34 pg [place] MCHC (RBC) [Mass/Vol] 32.9 g/dL 31 - 3 7 g/dL [place] MCV (RBC) [Entitic vol] 93.5 fL 80 - 100 fL [place] Monocytes (Bld) [#/Vol] 0.99 10*3/uL [place] Monocytes/100 WBC (Bld) 7 % 1 - 7 % [place] Morphology Den (Bld) [Interp] Normal [place] Platelet mean volume (Bld) [Entitic vol] 6.7 fL 6 - 12 fL [place] Platelets (Bld) [#/Vol] 339 10*3/uL [place] Platelets (Bld) [#/Vol] NOT REPORTED [place] RBC (Bld) [#/Vol] 4.29 10*6/uL 4 - 5.2 m/uL [place] RBC morphology finding Nom (Bld) NOT REPORTED [place] Segmented neutrophils/100 WBC (Bld) 86 % High 36 - 66 % [place] Segs Absolute 12.22 [place] WBC (Bld) [#/Vol] 14.2 10*3/uL [place] WBC (Bld) [#/Vol] NOT REPORTED per 100 WBC [place] WBC Morphology NOT REPORTED [place] Comprehensive Metabolic Pane l w/ Reflex to MGon 08-28-2019 Albumin [Mass/Vol] 3.5 g/dL 3.5 - 5.2 g/dL [place] Albumin/Globulin [Mass ratio] NOT REPORTED [place] ALP [Catalytic activity/Vol] 52 U/L 35 - 104 U/L [place] ALT [Catalytic activity/Vol] 17 U/L 5 - 33 U/L [place] Anion gap [Moles/Vol] 10 mmol/L 9 - 17 mmol/L [place] AST [Catalytic activity/Vol] 13 U/L <32 [place] Bilirubin Ql (U) 0.16 mg/dL Low 0.3 - 1.2 mg/dL [place] Bun/Cre Ratio NOT REPORTED [place] Calcium [Mass/Vol] 7.8 mg/dL Low 8.6 - 10. 4 mg/dL [place] Chloride [Moles/Vol] 104 mmol/L 98 - 10 7 mmol/L [place] CO2 [Moles/Vol] 29 mmol/L 20 - 31 mmol/L [place] Creatinine [Mass/Vol] 0.82 mg/dL 0.5 - 0.9 mg/dL [place] GFR >60 >60 mL/min [place] GFR Non- >60 >60 mL/min [place] GFR/1.73 sq M predicted among non-blacks MDRD (S/P/Bld) [Vol rate/Area] [place] Comment on above: Average GFR for 60-6 9 years old: 85 mL/min/1.73sq m Chronic Kidney Disease: <60 mL/min/1.73sq m Kidney failure: <15 mL/min/1.73sq m eGFR calculated using average adult body mass. Additional eGFR calculator available at: http://www.[employer]/multiple_crcl_2012.htm GFR/1.73 sq M predicted among non-blacks MDRD (S/P/Bld) [Vol rate/Area] NOT REPORTED [place] Glucose [Mass/Vol] 153 mg/dL High 70 - 99 mg/dL [place] Interpretation and review of laboratory results Abnormal [place] Potassium [Moles/Vol] 4.4 mmol/L 3.7 - 5.3 mmol/L [place] Protein [Mass/Vol] 6.0 g/dL Low 6.4 - 8.3 g/dL [place] Sodium [Moles/Vol] 143 mmol/L 135 - 144 mmol/L [place] Urea nitrogen [Mass/Vol] 21 mg/dL 8 - 23 mg/dL [place] Otheron 08-28-2019 Immature granulocytes (Bld) [#/Vol] NOT REPORTED 0 % [place] Basic Metabolic Panel w/ Ref alvin to MGon 08-26-2019 Anion gap [Moles/Vol] 10 mmol/L 9 - 17 mmol/L [place] Bun/Cre Ratio NOT REPORTED [facility] [place] Calcium [Mass/Vol] 8.1 mg/dL Low 8.6 - 10. 4 mg/dL [place] Chloride [Moles/Vol] 104 mmol/L 98 - 10 7 mmol/L [place] CO2 [Moles/Vol] 26 mmol/L 20 - 31 mmol/L [place] Creatinine [Mass/Vol] 0.78 mg/dL 0.5 - 0.9 mg/dL [place] GFR >60 >60 mL/min [place] GFR Non- >60 >60 mL/min [place] GFR/1.73 sq M predicted among non-blacks MDRD (S/P/Bld) [Vol rate/Area] [place] Comment on above: Average GFR for 60-6 9 years old: 85 mL/min/1.73sq m Chronic Kidney Disease: <60 mL/min/1.73sq m Kidney failure: <15 mL/min/1.73sq m eGFR calculated using average adult body mass. Additional eGFR calculator available at: http://www.[employer]/multiple_crcl_2012.htm GFR/1.73 sq M predicted among non-blacks MDRD (S/P/Bld) [Vol rate/Area] NOT REPORTED [place] Glucose [Mass/Vol] 179 mg/dL High 70 - 99 mg/dL [place] Interpretation and review of laboratory results Abnormal [place] Potassium [Moles/Vol] 5.0 mmol/L 3.7 - 5.3 mmol/L [place] Sodium [Moles/Vol] 140 mmol/L 135 - 144 mmol/L [place] Urea nitrogen [Mass/Vol] 20 mg/dL 8 - 23 mg/dL [place] CBCon 08-26-2019 Erythrocyte distribution width (RBC) [Ratio] 13.8 % 11.5 - 14.9 % [place] Hematocrit (Bld) [Volume fraction] 41.6 % 36 - 46 % [place] Hemoglobin (Bld) [Mass/Vol] 14.1 g/dL 12 - 16 g/dL [place] MCH (RBC) [Entitic mass] 31.3 pg 26 - 34 pg [place] MCHC (RBC) [Mass/Vol] 33.9 g/dL 31 - 3 7 g/dL [place] MCV (RBC) [Entitic vol] 92.3 fL 80 - 100 fL [place] Platelet mean volume (Bld) [Entitic vol] 6.9 fL 6 - 12 fL [place] Platelets (Bld) [#/Vol] 316 10*3/uL [place] RBC (Bld) [#/Vol] 4.51 10*6/uL 4 - 5.2 m/uL [place] WBC (Bld) [#/Vol] 6.9 10*3/uL [place] WBC (Bld) [#/Vol] NOT REPORTED per 100 WBC [place] EKG 12 Leadon 08-26-2019 Atrial Rate 133 BPM [place], [place] P [place] 44 degrees [place] P-R Interval 128 ms [place] Q-T Interval 282 ms [place] QRS Duration 84 ms [place] QTc Calculation (Bazett) 419 ms [place] R [place] 51 degrees [place], [place] T Gyps[place] 16 degrees [place] Ventricular Rate 133 BPM [place], [place] Sinus tachycardia Otherwise normal ECG No previous ECGs available [place], [place] Jose Antonio, Mhpn Incoming E kg Results From [facility] Sullivan - 08/26/2019 9:03 AM EST Sinus tachycardia Otherwise normal ECG No previous ECGs available [place] APTTon 08-25-2019 aPTT Coag (Bld) [Time] 30.1 s [place] Comment on above: IV Heparin Therapy Range: 62.0-94.0 Amylaseon 08-25-2019 Amylase [Catalytic activity/Vol] 37 U/L 28 - 100 U/L [place] Basic Metabolic Panel w/ Ref alvin to MGon 08-25-2019 Anion gap [Moles/Vol] 11 mmol/L 9 - 17 mmol/L [place] Bun/Cre Ratio NOT REPORTED [place] Calcium [Mass/Vol] 8.6 mg/dL 8.6 - 10. 4 mg/dL [place] Chloride [Moles/Vol] 97 mmol/L Low 98 - 10 7 mmol/L [place] CO2 [Moles/Vol] 26 mmol/L 20 - 31 mmol/L [place] Creatinine [Mass/Vol] 0.81 mg/dL 0.5 - 0.9 mg/dL [place] GFR >60 >60 mL/min [place] GFR Non- >60 >60 mL/min [place] GFR/1.73 sq M predicted among non-blacks MDRD (S/P/Bld) [Vol rate/Area] NOT REPORTED [place] GFR/1.73 sq M predicted among non-blacks MDRD (S/P/Bld) [Vol rate/Area] [place] Comment on above: Average GFR for 60-6 9 years old: 85 mL/min/1.73sq m Chronic Kidney Disease: <60 mL/min/1.73sq m Kidney failure: <15 mL/min/1.73sq m eGFR calculated using average adult body mass. Additional eGFR calculator available at: http://www.[employer]/multiple_crcl_2012.htm Glucose [Mass/Vol] 121 mg/dL High 70 - 99 mg/dL [place] Potassium [Moles/Vol] 4.2 mmol/L 3.7 - 5.3 mmol/L [place] Sodium [Moles/Vol] 134 mmol/L Low 135 - 144 mmol/L [place] Urea nitrogen [Mass/Vol] 17 mg/dL 8 - 23 mg/dL [place] Brain Natriuretic Peptideon 08-25-2019 Natriuretic peptide B (Bld) [Mass/Vol] Pro-BNP Reference Range: [place], [place] Comment on above: Rule Out: <300 [place] Zone: Age <50 300-450 Age 50-75 300-900 Age >75 300-1800 Usually represents mild to moderate HF but other cardiopulmonary causes cannot be ruled out. Rule In: Age <50 >450 Age 50-75 >900 Age >75 >1800 Natriuretic peptide B (Bld) [Mass/Vol] 42 pg/mL <300 [place] Comment on above: Pro-BNP results ridge ot be compared to BNP results. CBC Auto Differentialon Basophils (Bld) [#/Vol] 0.10 10*3/uL [place] Basophils/100 WBC (Bld) 1 % 0 - 2 % [place] Differential Type NOT REPORTED [place] Eosinophils (Bld) [#/Vol] 0.20 10*3/uL [place] Eosinophils/100 WBC (Bld) 2 % 0 - 4 % [place] Erythrocyte distribution width (RBC) [Ratio] 13.8 % 11.5 - 14.9 % [place] Hematocrit (Bld) [Volume fraction] 47.4 % High 36 - 46 % [place] Hemoglobin (Bld) [Mass/Vol] 15.7 g/dL 12 - 16 g/dL [place] Interpretation and review of laboratory results Abnormal [place] Lymphocytes (Bld) [#/Vol] 0.80 10*3/uL [place] Lymphocytes/100 WBC (Bld) 7 % Low 24 - 44 % [place] MCH (RBC) [Entitic mass] 30.6 pg 26 - 34 pg [place] MCHC (RBC) [Mass/Vol] 33.2 g/dL 31 - 3 7 g/dL [place] MCV (RBC) [Entitic vol] 92.0 fL 80 - 100 fL [place] Monocytes (Bld) [#/Vol] 0.50 10*3/uL [place] Monocytes/100 WBC (Bld) 4 % 1 - 7 % [place] Platelet mean volume (Bld) [Entitic vol] 7.2 fL 6 - 12 fL [place] Platelets (Bld) [#/Vol] NOT REPORTED [place] Platelets (Bld) [#/Vol] 363 10*3/uL [place] RBC (Bld) [#/Vol] 5.15 10*6/uL 4 - 5.2 m/uL [place] RBC morphology finding Nom (Bld) NOT REPORTED [place] Segmented neutrophils/100 WBC (Bld) 86 % High 36 - 66 % [place] Segs Absolute 10.40 [place] WBC (Bld) [#/Vol] 12.0 10*3/uL [place] WBC (Bld) [#/Vol] NOT REPORTED per 100 WBC [place] WBC Morphology NOT REPORTED [place], [place] Hepatic Function Panelon Albumin [Mass/Vol] 4 g/dL 3.5 - 5.2 g/dL [place] Albumin/Globulin [Mass ratio] NOT REPORTED [place] ALP [Catalytic activity/Vol] 67 U/L 35 - 104 U/L [place] ALT [Catalytic activity/Vol] 19 U/L 5 - 33 U/L [place] AST [Catalytic activity/Vol] 12 U/L <32 [place] Bilirubin Ql (U) 0.53 mg/dL 0.3 - 1.2 mg/dL [place] Bilirubin, Indirect 0.39 mg/dL 0 - 1 mg/dL [place] Bilirubin.direct [Mass/Vol] 0.14 mg/dL <0.31 [place] Globulin (S) [Mass/Vol] NOT REPORTED 1.5 - 3.8 g/dL [place] Protein [Mass/Vol] 7.4 g/dL 6.4 - 8.3 g/dL [place] Lipaseon 08-25-2019 Lipase [Catalytic activity/Vol] 12 U/L Low 13 - 60 U/L [place] Otheron 08-25-2019 Interpretation and review of laboratory results Abnormal [place] Immature granulocytes (Bld) [#/Vol] NOT REPORTED 0 % [place] Protime-INRon 08-25-2019 INR Coag (PPP) [Relative time] 1.1 {INR} [place] Comment on above: Non-therapeutic Range: INR = 0.9-1.2 Therapeutic Range: Moderate Anticoagulant Intensity: INR = 2.0-3.0 High Anticoagulant Intensity: INR = 2.5-3.5 PT Coag (PPP) [Time] 13.6 s [place] Rapid influenza A/B antigens on 08-25-2019 Direct Exam Negative [place] Direct Exam Positive Abnormal [place] Interpretation and review of laboratory results Abnormal [place] Special Requests NOT REPORTED [place] Specimen Description .NASOPHARYNGEAL SWAB [place] Troponinon 08-25-2019 Troponin I.cardiac [Mass/Vol] NOT REPORTED [place] Troponin T.cardiac [Mass/Vol] NOT REPORTED <0.03 ng/mL [place] Troponin, High Sensitivity 9 ng/L 0 - 14 ng/L [place] Comment on above: High Sensitivity Troponin values cannot be compared with other Troponin methodologies. Patients with high levels of Biotin oral intake (i.e >5mg/day) may have falsely decreased Troponin levels. Samples collected within 8 hours of biotin intake may require additional information for diagnosis. XR CHEST PORTABLEon 08-25-19 EXAMINATION: ONE XRA Y VIEW OF THE CHEST 08/25/2019 3:43 pm COMPARISON: 08/10/2019 HISTORY: ORDERING SYSTEM PROVIDED HISTORY: sob TECHNOLOGIST PROVIDED HISTORY: sob Reason for Exam: PT CO chronic open wound to his big to with pain and seeping X several weeks. PT HX diabetes and wound care issues. Acuity: Acute Type of Exam: Initial FINDINGS: Mild cardiomegaly and vascular congestion are unchanged. Mild diffuse interstitial prominence appears slightly improved. There is no airspace consolidation, pneumothorax, or pleural effusion. No free air beneath the diaphragm. No evidence of acute osseous abnormality. [place] Jose Antonio, Mhpn Incoming Radiant Results From [facility] [employer] [facility] - 08/25/2019 4:43 PM EST EXAMINATION: ONE XRAY VIEW OF THE CHEST 08/25/2019 3:43 pm COMPARISON: 08/10/2019 HISTORY: ORDERING SYSTEM PROVIDED HISTORY: sob TECHNOLOGIST PROVIDED HISTORY: sob Reason for Exam: PT CO chronic open wound to his big to with pain and seeping X several weeks. PT HX diabetes and wound care issues. Acuity: Acute Type of Exam: Initial FINDINGS: Mild cardiomegaly and vascular congestion are unchanged. Mild diffuse interstitial prominence appears slightly improved. There is no airspace consolidation, pneumothorax, or pleural effusion. No free air beneath the diaphragm. No evidence of acute osseous abnormality. IMPRESSION: Unchanged mild cardiomegaly and vascular congestion. Interstitial edema appears slightly improved. [place] Unchanged mild cardiomegaly and vascular congestion. Interstitial edema appears slightly improved. [place] Basic Metabolic Profon 08-10 Anion gap [Moles/Vol] 11 mmol/L 9 - 17 mmol/L [place] Bun/Cre Ratio NOT REPORTED [place] Calcium [Mass/Vol] 7.7 mg/dL Low 8.6 - 10. 4 mg/dL [place] Chloride [Moles/Vol] 101 mmol/L 98 - 10 7 mmol/L [place] CO2 [Moles/Vol] 28 mmol/L 20 - 31 mmol/L [place] Creatinine [Mass/Vol] 0.75 mg/dL 0.5 - 0.9 mg/dL [place] GFR >60 >60 mL/min [place] GFR Non- >60 >60 mL/min [place] GFR/1.73 sq M predicted among non-blacks MDRD (S/P/Bld) [Vol rate/Area] [place] Comment on above: Average GFR for 60-6 9 years old: 85 mL/min/1.73sq m Chronic Kidney Disease: <60 mL/min/1.73sq m Kidney failure: <15 mL/min/1.73sq m eGFR calculated using average adult body mass. Additional eGFR calculator available at: http://www.[employer]/multiple_crcl_2011.htm GFR/1.73 sq M predicted among non-blacks MDRD (S/P/Bld) [Vol rate/Area] NOT REPORTED [place] Glucose [Mass/Vol] 162 mg/dL High 70 - 99 mg/dL [place] Interpretation and review of laboratory results Abnormal [place] Potassium [Moles/Vol] 4.1 mmol/L 3.7 - 5.3 mmol/L [place] Sodium [Moles/Vol] 140 mmol/L 135 - 144 mmol/L [place] Urea nitrogen [Mass/Vol] 29 mg/dL High 8 - 23 mg/dL [place] CBCon 08-10-2019 Erythrocyte distribution width (RBC) [Ratio] 13.4 % 11.5 - 14.9 % [place] Hematocrit (Bld) [Volume fraction] 41.6 % 36 - 46 % [place] Hemoglobin (Bld) [Mass/Vol] 13.9 g/dL 12 - 16 g/dL [place] Interpretation and review of laboratory results Abnormal [place] MCH (RBC) [Entitic mass] 31.1 pg 26 - 34 pg [place] MCHC (RBC) [Mass/Vol] 33.4 g/dL 31 - 3 7 g/dL [place] MCV (RBC) [Entitic vol] 93.2 fL 80 - 100 fL [place] Platelet mean volume (Bld) [Entitic vol] 7.6 fL 6 - 12 fL [place] Platelets (Bld) [#/Vol] 326 10*3/uL [place] RBC (Bld) [#/Vol] 4.46 10*6/uL 4 - 5.2 m/uL [place] WBC (Bld) [#/Vol] NOT REPORTED per 100 WBC [place] WBC (Bld) [#/Vol] 13.2 10*3/uL [place] XR CHEST STANDARD (2 VW)on 0 08-10-2019 EXAMINATION: TWO XRA Y VIEWS OF THE CHEST 08/10/2019 9:38 am COMPARISON: Chest x-ray, 08/05/2019 HISTORY: ORDERING SYSTEM PROVIDED HISTORY: SOB TECHNOLOGIST PROVIDED HISTORY: SOB Reason for Exam: Diff breathing; cough Acuity: Unknown Type of Exam: Unknown FINDINGS: The heart is enlarged but stable with faint atherosclerotic aortic calcifications. Perihilar vascular congestion noted with hazy bibasilar airspace disease. The upper lungs remain clear bilaterally. No evidence of pleural effusion or pneumothorax. There is no blunting of the costophrenic angles on the lateral view. [place] Jose Antonio, Mhpn Incoming Radiant Results From [facility] - 08/10/2019 9:50 AM EST EXAMINATION: TWO XRAY VIEWS OF THE CHEST 08/10/2019 9:38 am COMPARISON: Chest x-ray, 08/05/2019 HISTORY: ORDERING SYSTEM PROVIDED HISTORY: SOB TECHNOLOGIST PROVIDED HISTORY: SOB Reason for Exam: Diff breathing; cough Acuity: Unknown Type of Exam: Unknown FINDINGS: The heart is enlarged but stable with faint atherosclerotic aortic calcifications. Perihilar vascular congestion noted with hazy bibasilar airspace disease. The upper lungs remain clear bilaterally. No evidence of pleural effusion or pneumothorax. There is no blunting of the costophrenic angles on the lateral view. IMPRESSION: Cardiomegaly with mild vascular congestion noted concerning for mild interstitial pulmonary edema. This is new from the previous exam and continued radiographic follow-up is recommended to ensure clearance. [place] Cardiomegaly with mi ld vascular congestion noted concerning for mild interstitial pulmonary edema. This is new from the previous exam and continued radiographic follow-up is recommended to ensure clearance. [place] Basic Metabolic Profon 08-09 Anion gap [Moles/Vol] 11 mmol/L 9 - 17 mmol/L [place] Bun/Cre Ratio NOT REPORTED [place] Calcium [Mass/Vol] 7.6 mg/dL Low 8.6 - 10. 4 mg/dL [place] Chloride [Moles/Vol] 100 mmol/L 98 - 10 7 mmol/L [place] CO2 [Moles/Vol] 28 mmol/L 20 - 31 mmol/L [place] Creatinine [Mass/Vol] 0.86 mg/dL 0.5 - 0.9 mg/dL [place] GFR >60 >60 mL/min [place] GFR Non- >60 >60 mL/min [place] GFR/1.73 sq M predicted among non-blacks MDRD (S/P/Bld) [Vol rate/Area] NOT REPORTED [place] GFR/1.73 sq M predicted among non-blacks MDRD (S/P/Bld) [Vol rate/Area] [place] Comment on above: Average GFR for 60-6 9 years old: 85 mL/min/1.73sq m Chronic Kidney Disease: <60 mL/min/1.73sq m Kidney failure: <15 mL/min/1.73sq m eGFR calculated using average adult body mass. Additional eGFR calculator available at: http://www.[employer]/multiple_crcl_2012.htm Glucose [Mass/Vol] 140 mg/dL High 70 - 99 mg/dL [place] Interpretation and review of laboratory results Abnormal [place] Potassium [Moles/Vol] 4.5 mmol/L 3.7 - 5.3 mmol/L [place] Sodium [Moles/Vol] 139 mmol/L 135 - 144 mmol/L [place] Urea nitrogen [Mass/Vol] 29 mg/dL High 8 - 23 mg/dL [place] CBCon 08-09-2019 Erythrocyte distribution width (RBC) [Ratio] 13.6 % 11.5 - 14.9 % [place] Hematocrit (Bld) [Volume fraction] 40.1 % 36 - 46 % [place] Hemoglobin (Bld) [Mass/Vol] 13.5 g/dL 12 - 16 g/dL [place] Interpretation and review of laboratory results Abnormal [place] MCH (RBC) [Entitic mass] 31.2 pg 26 - 34 pg [place] MCHC (RBC) [Mass/Vol] 33.7 g/dL 31 - 3 7 g/dL [place] MCV (RBC) [Entitic vol] 92.6 fL 80 - 100 fL [place] Platelet mean volume (Bld) [Entitic vol] 7.3 fL 6 - 12 fL [place] Platelets (Bld) [#/Vol] 334 10*3/uL [place] RBC (Bld) [#/Vol] 4.34 10*6/uL 4 - 5.2 m/uL [place] WBC (Bld) [#/Vol] 15.9 10*3/uL [place] WBC (Bld) [#/Vol] NOT REPORTED per 100 WBC [place] Fungal stainon 08-09-2019 Direct Exam NO FUNGAL ELEMENTS SEEN [place] Special Requests NOT REPORTED [place] Specimen Description .BRONCHIAL WASHINGS [place] Otheron 08-09-2019 Direct Exam Positive Abnormal [place] Respiratory Cultureon 2019 Culture NORMAL RESPIRATORY CHERYL HEAVY GROWTH [place] Direct Exam FEW NEUTROPHILS Abnormal [place] Interpretation and review of laboratory results Abnormal [place] Special Requests NOT REPORTED [place] Specimen Description .BRONCHIAL WASHINGS [place] Surgical Pathologyon 020 Surgical Pathology Report [id number] [place] [address] SURGICAL PATHOLOGY REPORT Patient Name: CAMERON US MR#: [id number] Specimen #[id number] Final Diagnosis Parts A & B. Lungs, bronchial washings (cytology and cell block): - Adequate for evaluation. - Benign squamous cells and reactive bronchial epithelial cells with macrophages, mixed inflammation, and mucinous debris. - Negative for malignancy. Alin Valencia M.D. Electronically Signed Out vvg/08/09/2019 Clinical Information COPD; bronchoscopy Source: A: Bronchial washing, smears, cytospins, Thin Prep B: Bronchial washing, sediment Gross Description Specimen A : The specimen consists of 13.0 ml of pink, mucoid, cloudy fluid. Approximately 3 ml are sent to [place] for ThinPrep. Two smears and two cytospin preparations are made. Specimen B : The entire specimen is centrifuged for cell block. The volume of sediment is 0.5 cc. It is submitted for cell block preparation. Microscopic Description Five cytology and two H&E cell block slides reviewed. Microscopic examination performed and supports the diagnostic impression. [place] Basic Metabolic Profon 08-08 Anion gap [Moles/Vol] 8 mmol/L Low 9 - 17 mmol/L [place] Bun/Cre Ratio NOT REPORTED [place] Calcium [Mass/Vol] 8.0 mg/dL Low 8.6 - 10. 4 mg/dL [place] Chloride [Moles/Vol] 106 mmol/L 98 - 10 7 mmol/L [place] CO2 [Moles/Vol] 26 mmol/L 20 - 31 mmol/L [place] Creatinine [Mass/Vol] 0.75 mg/dL 0.5 - 0.9 mg/dL [place] GFR >60 >60 mL/min [place] GFR Non- >60 >60 mL/min [place] GFR/1.73 sq M predicted among non-blacks MDRD (S/P/Bld) [Vol rate/Area] NOT REPORTED [place] GFR/1.73 sq M predicted among non-blacks MDRD (S/P/Bld) [Vol rate/Area] [place] Comment on above: Average GFR for 60-6 9 years old: 85 mL/min/1.73sq m Chronic Kidney Disease: <60 mL/min/1.73sq m Kidney failure: <15 mL/min/1.73sq m eGFR calculated using average adult body mass. Additional eGFR calculator available at: http://www.[employer]/multiple_crcl_2012.htm Glucose [Mass/Vol] 154 mg/dL High 70 - 99 mg/dL [place] Interpretation and review of laboratory results Abnormal [place] Potassium [Moles/Vol] 5.1 mmol/L 3.7 - 5.3 mmol/L [place] Sodium [Moles/Vol] 140 mmol/L 135 - 144 mmol/L [place] Urea nitrogen [Mass/Vol] 32 mg/dL High 8 - 23 mg/dL [place] Body fluid cell counton 07-23 Appearance, Fluid [facility]ID [facility] [place] Color, Fluid PALE YELLOW [place] RBC, Fluid 294 /mm3 [place] Specimen type Nom (Spec) .BRONCHIAL WASHINGS [place] WBC, Fluid 113 /mm3 [place] CBCon 08-08-2019 Erythrocyte distribution width (RBC) [Ratio] 13.5 % 11.5 - 14.9 % [place] Hematocrit (Bld) [Volume fraction] 42.1 % 36 - 46 % [place] Hemoglobin (Bld) [Mass/Vol] 14.0 g/dL 12 - 16 g/dL [place] Interpretation and review of laboratory results Abnormal [place] MCH (RBC) [Entitic mass] 30.7 pg 26 - 34 pg [place] MCHC (RBC) [Mass/Vol] 33.2 g/dL 31 - 3 7 g/dL [place] MCV (RBC) [Entitic vol] 92.4 fL 80 - 100 fL [place] Platelet mean volume (Bld) [Entitic vol] 7.2 fL 6 - 12 fL [place] Platelets (Bld) [#/Vol] 355 10*3/uL [place] RBC (Bld) [#/Vol] 4.55 10*6/uL 4 - 5.2 m/uL [place] WBC (Bld) [#/Vol] 18.5 10*3/uL [place] WBC (Bld) [#/Vol] NOT REPORTED per 100 WBC [place] Differential, Body Fluidon 0 08-08-2019 Basos, Fluid 0 % [place] Eos, Fluid 7 % High 0 [place] Fluid Diff Comment TO BE REVIEWED BY PATHOLOGIST [place] Comment on above: Reviewed by patholog ist: Justin Chambers D.O. SLIDE REVIEWED. MACROPHAGES, NEUTROPHILS WITH RARE LYMPHOCYTES AND EOSINOPHIILS NOTED. Interpretation and review of laboratory results Abnormal [place] Lymphocytes, Body Fluid 7 % High 0 [place] Monocyte Count, Fluid 40 % High 0 [place] Neutrophil Count, Fluid 46 % High 0 [place] Other Cells, Fluid 0 % [place] Basic Metabolic Profon 08-07 Anion gap [Moles/Vol] 11 mmol/L 9 - 17 mmol/L [place] Bun/Cre Ratio NOT REPORTED [place] Calcium [Mass/Vol] 8.1 mg/dL Low 8.6 - 10. 4 mg/dL [place] Chloride [Moles/Vol] 105 mmol/L 98 - 10 7 mmol/L [place] CO2 [Moles/Vol] 24 mmol/L 20 - 31 mmol/L [place] Creatinine [Mass/Vol] 0.93 mg/dL High 0.5 - 0.9 mg/dL [place] GFR >60 >60 mL/min [place] GFR Non- >60 >60 mL/min [place] GFR/1.73 sq M predicted among non-blacks MDRD (S/P/Bld) [Vol rate/Area] NOT REPORTED [place] GFR/1.73 sq M predicted among non-blacks MDRD (S/P/Bld) [Vol rate/Area] [place] Comment on above: Average GFR for 60-6 9 years old: 85 mL/min/1.73sq m Chronic Kidney Disease: <60 mL/min/1.73sq m Kidney failure: <15 mL/min/1.73sq m eGFR calculated using average adult body mass. Additional eGFR calculator available at: http://www.Brilig.[employer]/multiple_crcl_2012.htm Glucose [Mass/Vol] 172 mg/dL High 70 - 99 mg/dL [place] Interpretation and review of laboratory results Abnormal [place] Potassium [Moles/Vol] 5.1 mmol/L 3.7 - 5.3 mmol/L [place] Sodium [Moles/Vol] 140 mmol/L 135 - 144 mmol/L [place] Urea nitrogen [Mass/Vol] 26 mg/dL High 8 - 23 mg/dL [place] CBCon 08-07-2019 Erythrocyte distribution width (RBC) [Ratio] 13.8 % 11.5 - 14.9 % [place] Hematocrit (Bld) [Volume fraction] 42.8 % 36 - 46 % [place] Hemoglobin (Bld) [Mass/Vol] 14.1 g/dL 12 - 16 g/dL [place] Interpretation and review of laboratory results Abnormal [place] MCH (RBC) [Entitic mass] 30.8 pg 26 - 34 pg [place] MCHC (RBC) [Mass/Vol] 33.0 g/dL 31 - 3 7 g/dL [place] MCV (RBC) [Entitic vol] 93.1 fL 80 - 100 fL [place] Platelet mean volume (Bld) [Entitic vol] 7.5 fL 6 - 12 fL [place] Platelets (Bld) [#/Vol] 367 10*3/uL [place] RBC (Bld) [#/Vol] 4.59 10*6/uL 4 - 5.2 m/uL [place] WBC (Bld) [#/Vol] 20.0 10*3/uL [place] WBC (Bld) [#/Vol] NOT REPORTED per 100 WBC [place] Basic Metabolic Profon 08-06 Anion gap [Moles/Vol] 10 mmol/L 9 - 17 mmol/L [place] Bun/Cre Ratio NOT REPORTED [place] Calcium [Mass/Vol] 8.2 mg/dL Low 8.6 - 10. 4 mg/dL [place] Chloride [Moles/Vol] 102 mmol/L 98 - 10 7 mmol/L [place] CO2 [Moles/Vol] 25 mmol/L 20 - 31 mmol/L [place] Creatinine [Mass/Vol] 0.75 mg/dL 0.5 - 0.9 mg/dL [place] GFR >60 >60 mL/min [place] GFR Non- >60 >60 mL/min [place] GFR/1.73 sq M predicted among non-blacks MDRD (S/P/Bld) [Vol rate/Area] [place] Comment on above: Average GFR for 60-6 9 years old: 85 mL/min/1.73sq m Chronic Kidney Disease: <60 mL/min/1.73sq m Kidney failure: <15 mL/min/1.73sq m eGFR calculated using average adult body mass. Additional eGFR calculator available at: http://www.SodaStream/multiple_crcl_2012.htm GFR/1.73 sq M predicted among non-blacks MDRD (S/P/Bld) [Vol rate/Area] NOT REPORTED [place] Glucose [Mass/Vol] 166 mg/dL High 70 - 99 mg/dL [place] Interpretation and review of laboratory results Abnormal [place] Potassium [Moles/Vol] 4.1 mmol/L 3.7 - 5.3 mmol/L [place] Sodium [Moles/Vol] 137 mmol/L 135 - 144 mmol/L [place] Urea nitrogen [Mass/Vol] 21 mg/dL 8 - 23 mg/dL [place] CBCon 08-06-2019 Erythrocyte distribution width (RBC) [Ratio] 13.5 % 11.5 - 14.9 % [place] Hematocrit (Bld) [Volume fraction] 43.2 % 36 - 46 % [place] Hemoglobin (Bld) [Mass/Vol] 14.5 g/dL 12 - 16 g/dL [place] MCH (RBC) [Entitic mass] 31.1 pg 26 - 34 pg [place] MCHC (RBC) [Mass/Vol] 33.5 g/dL 31 - 3 7 g/dL [place] MCV (RBC) [Entitic vol] 92.7 fL 80 - 100 fL [place] Platelet mean volume (Bld) [Entitic vol] 7.2 fL 6 - 12 fL [place] Platelets (Bld) [#/Vol] 366 10*3/uL [place] RBC (Bld) [#/Vol] 4.66 10*6/uL 4 - 5.2 m/uL [place] WBC (Bld) [#/Vol] NOT REPORTED per 100 WBC [place] WBC (Bld) [#/Vol] 7.9 10*3/uL [place] Basic Metabolic Panelon 07-23 Anion gap [Moles/Vol] 14 mmol/L 9 - 17 mmol/L [place] Bun/Cre Ratio NOT REPORTED [place] Calcium [Mass/Vol] 8.6 mg/dL 8.6 - 10. 4 mg/dL [place] Chloride [Moles/Vol] 102 mmol/L 98 - 10 7 mmol/L [place] CO2 [Moles/Vol] 25 mmol/L 20 - 31 mmol/L [place] Creatinine [Mass/Vol] 0.85 mg/dL 0.5 - 0.9 mg/dL [place] GFR >60 >60 mL/min [place] GFR Non- >60 >60 mL/min [place] GFR/1.73 sq M predicted among non-blacks MDRD (S/P/Bld) [Vol rate/Area] [place] Comment on above: Average GFR for 60-6 9 years old: 85 mL/min/1.73sq m Chronic Kidney Disease: <60 mL/min/1.73sq m Kidney failure: <15 mL/min/1.73sq m eGFR calculated using average adult body mass. Additional eGFR calculator available at: http://www.Brilig.[employer]/multiple_crcl_2012.htm GFR/1.73 sq M predicted among non-blacks MDRD (S/P/Bld) [Vol rate/Area] NOT REPORTED [place] Glucose [Mass/Vol] 97 mg/dL 70 - 99 mg/dL [place] Potassium [Moles/Vol] 4.5 mmol/L 3.7 - 5.3 mmol/L [place] Sodium [Moles/Vol] 141 mmol/L 135 - 144 mmol/L [place] Urea nitrogen [Mass/Vol] 19 mg/dL 8 - 23 mg/dL [place] CBC Auto Differentialon 07-23 Basophils (Bld) [#/Vol] 0.10 10*3/uL [place] Basophils/100 WBC (Bld) 1 % 0 - 2 % [place] Differential Type NOT REPORTED [place] Eosinophils (Bld) [#/Vol] 0.80 10*3/uL High [place] Eosinophils/100 WBC (Bld) 9 % High 0 - 4 % [place] Erythrocyte distribution width (RBC) [Ratio] 13.2 % 11.5 - 14.9 % [place] Hematocrit (Bld) [Volume fraction] 46.8 % High 36 - 46 % [place] Hemoglobin (Bld) [Mass/Vol] 15.6 g/dL 12 - 16 g/dL [place] Interpretation and review of laboratory results Abnormal [place] Lymphocytes (Bld) [#/Vol] 2.70 10*3/uL [place] Lymphocytes/100 WBC (Bld) 30 % 24 - 44 % [place] MCH (RBC) [Entitic mass] 31.1 pg 26 - 34 pg [place] MCHC (RBC) [Mass/Vol] 33.4 g/dL 31 - 3 7 g/dL [place] MCV (RBC) [Entitic vol] 93.1 fL 80 - 100 fL [place] Monocytes (Bld) [#/Vol] 0.70 10*3/uL [place] Monocytes/100 WBC (Bld) 8 % High 1 - 7 % [place] Platelet mean volume (Bld) [Entitic vol] 7.0 fL 6 - 12 fL [place] Platelets (Bld) [#/Vol] NOT REPORTED [place] Platelets (Bld) [#/Vol] 396 10*3/uL [place] RBC (Bld) [#/Vol] 5.02 10*6/uL 4 - 5.2 m/uL [place] RBC morphology finding Nom (Bld) NOT REPORTED [place] Segmented neutrophils/100 WBC (Bld) 52 % 36 - 66 % [place] Segs Absolute 4.80 [place] WBC (Bld) [#/Vol] NOT REPORTED per 100 WBC [place] WBC (Bld) [#/Vol] 9.2 10*3/uL [place] WBC Morphology NOT REPORTED [place] D-Dimer, Quantitativeon 07-23 D-Dimer, Quant <0.27 [place] Comment on above: When combined with a low clinical probability, a D dimer value of <0.50 mg/L FEU is considered negative for DVT and PE (negative predictive value of 98%, sensitivity of 97%). If this test is not being used to help rule out DVT and PE, then the following reference range should be utilized: 0.00 - 0.59 mg/L FEU. The D-Dimer assay is intended for use as an aid in the diagnosis of venous thromboembolism (DVT and PE) and the results should be interpreted in conjunction with the patient's medical history, clinical presentation, and other findings. The [employer] D-Dimer assay is intended for use as an aid in the diagnosis of venous thromboembolism (DVT and PE) and the results should be interpreted in conjunction with the patient's medical history, clinical presentation, and other findings. Elevated levels of D-dimer activity can be seen in any state of coagulation activation and is not recommended in patients with therapeutic dose anticoagulant therapy for >24 hours, fibrinolytic therapy within the previous 7 days, trauma or surgery within the previous 4 weeks, disseminated malignancies, aortic aneurysm, sepsis, severe infections, pneumonia, severe skin infections, liver cirrhosis, advanced age, coronary disease, diabetes, and . A very low percentage of patients with DVT may yield D-dimer results below the cutoff of 0.5 mg/L FEU. This is known to be more prevalent in patients with distal DVT. Otheron 08-05-2019 Immature granulocytes (Bld) [#/Vol] NOT REPORTED [place] Procalcitoninon 08-05-2019 Procalcitonin 0.06 ng/mL <0.09 [place] Comment on above: Suspected Sepsis: 0.09-0.49 ng/mL Low likelihood of sepsis. 0.50-2.00 ng/mL Increased likelihood of sepsis. Antibiotics encouraged. >2.00 ng/mL High risk of sepsis/shock. Antibiotics strongly encouraged. Suspected Lower Resp Tract Infections: 0.09-0.24 ng/mL Low likelihood of bacterial infection. >0.24 ng/mL Increased likelihood of bacterial infection. Antibiotics encouraged. With successful antibiotic therapy, PCT levels should decrease rapidly. (Half-life of 24 to 36 hours.) Procalcitonin values from samples collected within the first 6 hours of systemic infection may still be low. Retesting may be indicated. Values from day 1 and day 4 can be entered into the Change in Procalcitonin Calculator (www.vsouim-akd-gzgizoyvep.[employer]) to determine the patient's Mortality Risk Prognosis XR CHEST PORTABLEon 08-05-19 20 Jose Antonio, Mhpn Incoming Radiant Results From [employer] - 08/05/2019 3:07 PM EST EXAMINATION: ONE XRAY VIEW OF THE CHEST 08/05/2019 2:02 pm COMPARISON: None. HISTORY: ORDERING SYSTEM PROVIDED HISTORY: Chest Pain TECHNOLOGIST PROVIDED HISTORY: Chest Pain Reason for Exam: CHEST PAIN Acuity: Unknown Type of Exam: Unknown FINDINGS: Mild cardiac silhouette enlargement. Generalized interstitial prominence without consolidation, pneumothorax or evidence for edema. No effusion. No acute osseous abnormality identified. IMPRESSION: No acute airspace disease identified. [place] EXAMINATION: ONE XRA Y VIEW OF THE CHEST 08/05/2019 2:02 pm COMPARISON: None. HISTORY: ORDERING SYSTEM PROVIDED HISTORY: Chest Pain TECHNOLOGIST PROVIDED HISTORY: Chest Pain Reason for Exam: CHEST PAIN Acuity: Unknown Type of Exam: Unknown FINDINGS: Mild cardiac silhouette enlargement. Generalized interstitial prominence without consolidation, pneumothorax or evidence for edema. No effusion. No acute osseous abnormality identified. [place] No acute airspace disease identified. [place] Glucose, Fastingon 9 Glucose [Mass/Vol] 93 mg/dL Normal 70-99 [facility] Comment on above: Performed By: #### Ross ULLOAF, LIPRF, TSH #### [facility] [address] [place] [id number] Plant Anatomist: Beau Troncoso MD Glucose [Mass/Vol] 93 mg/dL 70 - 99 mg/dL [place], [place] Lipid Prof, Fastingon 2018 Cholesterol [Mass/Vol] 275 mg/dL High <200 [facility] Comment on above: Result Comment: Cholesterol Guidelines: <200 Desirable 200-240 Borderline >240 Undesirable Performed By: #### G JOSE, LIPRF, TSH #### [facility] [employer] [address] [place] [id number] Plant Anatomist: Beau Troncoso MD Cholesterol in HDL [Mass/Vol] 48 mg/dL Normal >40 [facility] Comment on above: Result Comment: HDL Guidelines: <40 Undesirable 40-59 Borderline >59 Desirable Performed By: #### Ross ULLOAF, LIPRF, TSH #### [facility] [employer] [address] [place] [id number] Plant Anatomist: Beau Troncoso MD Cholesterol in LDL [Mass/Vol] 196 mg/dL High 0-130 [facility] Comment on above: Result Comment: LDL Guidelines: <100 Desirable 100-129 Near to/above Desirable 130-159 Borderline >159 Undesirable Direct (measured) LDL and calculated LDL are not interchangeable tests. Performed By: #### G LUF, LIPRF, TSH #### [facility] [employer] [address] [place] [id number] Plant Anatomist: Beau Troncoso MD Cholesterol.total/Chol esterol in HDL [Mass ratio] 5.7 {ratio} High <5 [facility] Comment on above: Performed By: #### G LUF, LIPRF, TSH #### [employer] [address] [place] [id number] Plant Anatomist: Beau Troncoso MD Triglyceride,Fasting 153 mg/dL High <150 [facility] Comment on above: Result Comment: Triglyceride Guidelines: <150 Desirable 150-199 Borderline 200-499 High >499 Very high Based on AHA Guidelines for fasting triglyceride, March 2012. Performed By: #### G LUF, LIPRF, TSH #### [facility] [employer] [address] [place], [place] [id number] Plant Anatomist: Beau Troncoso MD Cholesterol in VLDL [Mass/Vol] NOT REPORTED Normal 1-30 [facility] Comment on above: Performed By: #### G LUF, LIPRF, TSH #### [facility] [employer] [address] [place], [place] [id number] Plant Anatomist: Beau Troncoso MD Lipid, Fastingon 05-11-2019 Cholesterol [Mass/Vol] 275 mg/dL High <200 [place] Comment on above: Cholesterol Guidelines: <200 Desirable 200-240 Borderline >240 Undesirable Cholesterol in HDL [Mass/Vol] 48 mg/dL >40 [place] Comment on above: HDL Guidelines: <40 Undesirable 40-59 Borderline >59 Desirable Cholesterol in LDL [Mass/Vol] 196 mg/dL High 0 - 130 mg/dL [place] Comment on above: LDL Guidelines: <100 Desirable 100-129 Near to/above Desirable 130-159 Borderline >159 Undesirable Direct (measured) LDL and calculated LDL are not interchangeable tests. Cholesterol in VLDL [Mass/Vol] NOT REPORTED High 1 - 30 mg/dL [place] Cholesterol.total/Chol esterol in HDL [Mass ratio] 5.7 {ratio} High <5 [place] Interpretation and review of laboratory results Abnormal [place] Triglyceride, Fasting 153 mg/dL High <150 [place] Comment on above: Triglyceride Guidelines: <150 Desirable 150-199 Borderline 200-499 High >499 Very high Based on AHA Guidelines for fasting triglyceride, March 2012. TSHon 05-11-2019 Interpretation and review of laboratory results Abnormal [place] TSH Qn 25.72 m[IU]/L [facility] [place] [place] Thyroid Stim. Horm.on 2018 TSH Qn 25.72 m[IU]/L High 0.30-5.00 [facility] Comment on above: Performed By: #### G CHUCK GARCIA, TSH #### [facility] [address] [place] [address] Plant Anatomist: Beau Troncoso MD Vital Signs Date Time Vital Sign Value Performing Clinician Facility 07-30-2023 10:47-0500 Body height 172.7 cm [employer] [facility] 07-30-2023 10:47-0500 Body mass index (BMI) [Ratio] 36.74 kg/m2 [employer] Work [facility] 07-30-2023 10:47-0500 Body temperature 98.1 [degF] [employer] Work Phone[facility] 07-30-2023 10:47-0500 Body weight 109.59 kg [employer] Work [facility] 07-30-2023 10:47-0500 Diastolic blood pressure 80 mm[Hg] [employer] Work Phone[facility] 07-30-2023 10:47-0500 Heart rate 89 /min [employer] [facility] Phone[facility] 07-30-2023 10:47-0500 SaO2% (BldA) [Mass fraction] 95 % [employer] Work Phone[facility] 07-30-2023 10:47-0500 Systolic blood pressure 130 mm[Hg] [employer] Work Phone[facility] 11-22-2020 12:40-0400 Respiratory rate 29 /min Heena John MD [facility] Work Phone: 11-22-2020 12:40-0400 SaO2% (BldA) [Mass fraction] 100 % Heena John MD [employer] Phone: 11-22-2020 12:30-0400 Diastolic blood pressure 58 mm[Hg] Heena John MD [employer] Phone: 11-22-2020 12:30-0400 Heart rate 85 /min Heena John MD [employer] Phone: 11-22-2020 12:30-0400 Systolic blood pressure 108 mm[Hg] Heena John MD [employer] Phone: 11-22-2020 12:09-0400 Body height 175.3 cm Heena John MD [employer] Phone: 11-22-2020 12:09-0400 Body mass index (BMI) [Ratio] 33.97 kg/m2 Heena John MD [employer] Phone: 11-22-2020 12:09-0400 Body temperature 97.3 [degF] Heena John MD [employer] Phone: 11-22-2020 12:09-0400 Body weight 104.33 kg Heena John MD [employer] Phone: 11-02-2019 13:15-0400 BP Diastolic 61 mm[Hg] [place] 11-02-2019 13:15-0400 BP Systolic 118 mm[Hg] [facility] [place] 11-02-2019 13:15-0400 Pulse (Heart Rate) 87 /min [place] 11-02-2019 13:15-0400 Pulse Oximetry 97 % [facility] , [place] 11-02-2019 13:15-0400 Respiratory Rate 17 /min [place] [employer] [facility] systems[facility], [place] 11-02-2019 10:12-0400 BMI (Body Mass Index) 29.53 kg/m2 [facility] [employer] [facility] systems[facility] [place] 11-02-2019 10:12-0400 Body Temperature 98.91 [degF] [facility] [place] 11-02-2019 10:12-0400 Body weight 90.72 kg Warren Olivas [facility] , [place] 10-08-2019 11:51-0400 Pulse Oximetry 98 % [facility] [place] 10-08-2019 11:51-0400 Respiratory Rate 12 /min [facility] 10-08-2019 08:42-0400 Body Temperature 98.1 [degF] [facility] [place] 10-08-2019 08:42-0400 BP Diastolic 70 mm[Hg] [facility] , [place] 10-08-2019 08:42-0400 BP Systolic 137 mm[Hg] [facility] , [place] 10-08-2019 08:42-0400 Pulse (Heart Rate) 99 /min [facility] 10-08-2019 06:30-0400 BMI (Body Mass Index) 32.43 kg/m2 [facility], [place] 10-08-2019 06:30-0400 Body weight 99.6 kg [facility] [place] 10-05-2019 18:01-0400 Height 175.3 cm [facility] , [place] 09-15-2019 18:31-0400 Body Temperature 98.91 [degF] [facility], [place] 09-15-2019 18:31-0400 BP Diastolic 63 mm[Hg] [facility] , [place] 09-15-2019 18:31-0400 BP Systolic 133 mm[Hg] [facility] [place] 09-15-2019 18:31-0400 Pulse (Heart Rate) 101 /min [facility] 09-15-2019 18:31-0400 Pulse Oximetry 93 % [facility] [place] 09-15-2019 18:31-0400 Respiratory Rate 18 /min [facility], [place] 09-15-2019 17:26-0400 BMI (Body Mass Index) 32.19 kg/m2 Levy [facility] [place], [place] 09-15-2019 17:26-0400 Body weight 98.88 kg [facility] [place] 08-29-2019 15:11-0400 Pulse Oximetry 95 % [facility] , [place] 08-29-2019 14:42-0400 Body Temperature 98.29 [degF] [facility] 08-29-2019 14:42-0400 BP Diastolic 65 mm[Hg] [facility] , [place] 08-29-2019 14:42-0400 BP Systolic 133 mm[Hg] [facility] , [place] 08-29-2019 14:42-0400 Pulse (Heart Rate) 84 /min Jacob [facility], [place] 08-29-2019 14:42-0400 Respiratory Rate 16 /min Jacob [facility], [place] 08-29-2019 06:34-0400 BMI (Body Mass Index) 32.17 kg/m2 [facility] [place] 08-29-2019 06:34-0400 Body weight 98.8 kg Jacob [facility] , [place] 08-25-2019 15:11-0500 Height 175.3 cm Jacob [facility] , [place] 08-10-2019 14:26-0500 Body Temperature 97.2 [degF] Heena John [facility] 08-10-2019 14:26-0500 BP Diastolic 81 mm[Hg] [facility] [place] 08-10-2019 14:26-0500 BP Systolic 159 mm[Hg] Heena Alvaro [facility] [place] , [place] 08-10-2019 14:26-0500 Pulse (Heart Rate) 86 /min Heena Jhon [facility], [place] 08-10-2019 14:26-0500 Pulse Oximetry 94 % Heena John [facility] , [place] 08-10-2019 14:26-0500 Respiratory Rate 16 /min Heena John [facility], [place] 08-07-2019 06:00-0500 BMI (Body Mass Index) 31.58 kg/m2 Heena Holm [facility], [place] 08-07-2019 06:00-0500 Body weight 97 kg Heena John [facility] , [place] 08-05-2019 16:57-0500 Height 175.3 cm Heena John [facility] , [place] Encounters Encounter Date Encounter Type Care Provider Facility Start: 07-30-2023 End: 07-30-2023 ambulatory LOUIE PAUL [facility] Start: 07-30-2023 End: 07-30-2023 Office outpatient visit 25 minutes Louie Paul DO [facility] Phone: [facility] Comment on above: Chronic obstructive pulmonary disease, unspecified COPD type ([facility]) (Primary Dx); Right-sided low back pain without sciatica, unspecified chronicity; Postoperative hypothyroidism; Obstructive sleep apnea Start: 07-19-2023 Refill Louie villa DO Work Phone: [facility] Comment on above: Acute exacerbation o f chronic obstructive pulmonary disease (COPD) ([facility]) Start: 07-14-2023 Refill Louie Mabry ng DO Work Phone: [facility] Comment on above: Chronic rhinitis Start: 12-16-2021 End: 12-17-[address] LOUIE PAUL Facility:[facility] Start: 10-04-2021 End: 10-05-[address] MARCO DUMONT Facility:[facility] Start: 09-12-2021 End: 09-13-[address] DOCTOR JONES Facility:[facility] Start: 08-24-2021 End: 08-25-2021 ambulatory ASHLEE ESCUDERO Facility:[facility] Start: 07-02-2021 End: 07-02-[address] LOUIE PAUL Facility:[facility] Start: 06-25-2021 End: 06-25-[address] LOUIE PAUL Facility:[facility] Start: 03-02-2021 End: 03-02-[address] CARISSA JACOB Facility:[facility] Start: 11-22-2020 End: 11-22-2020 [facility] Start: 11-22-2020 End: 11-22-2020 Emergency department patient visit Heena John MD [facility] ED Comment on above: COPD exacerbation (H CC) (Primary Dx) Start: 04-18-2020 End: 04-21-2020 [facility] Start: 04-16-2020 End: 04-17-2020 Patient encounter procedure SHIVAPRASAD Michelle [facility] Start: 04-16-2020 End: 04-16-2020 Subsequent hospital [facility] [place] [facility] Comment on above: Dizziness; Polydipsia Start: 03-23-2020 End: 03-26-2020 ambulatory ENESI O CORA [facility] Start: 03-23-2020 End: 03-25-2020 Subsequent hospital visit by physician [facility] Rm [facility] Comment on above: [facility] Start: 11-02-2019 End: 11-02-2019 Emergency department patient visit Warren Beeyenypilar Work Phone: [facility] ED Comment on above: COPD exacerbation (H CC) (Primary Dx) Start: 10-05-2019 End: 10-08-2019 Evaluation and management of inpatient Forest Childs Work Phone: [facility] Comment on above: COPD exacerbation (H CC) (Primary Dx); Acute respiratory failure with hypoxia (HCC) Start: 09-15-2019 End: 09-15-2019 Emergency department patient visit Levy Felix Work Phone: [facility] ED Comment on above: Cough (Primary Dx); Abnormal CXR; Viral URI Start: 08-25-2019 End: 08-29-2019 Evaluation and management of inpatient Jacob Granado Work Phone: [facility] Med Surg Comment on above: COPD exacerbation (H CC) (Primary Dx); Influenza with respiratory manifestation other than pneumonia; COPD with acute exacerbation (HCC) Start: 08-05-2019 End: 08-10-2019 Evaluation and management of inpatient Heena CEBALLOS Med Surg Comment on above: COPD exacerbation (H CC) (Primary Dx); Cough; Moderate persistent asthma with acute exacerbation Start: 05-11-2019 End: 05-12-2019 Patient encounter procedure NAJMA KEN [facility] Start: 05-11-2019 End: 05-11-2019 Subsequent hospital visit by physician Najma PATEL [place] [facility] Comment on above: Encounter for screen ing for diabetes mellitus; Screening for hyperlipidemia Procedures Date Procedure Procedure Detail Performing Clinician Start: 07-30-2023 Adult depression scr eening assessment [employer] DO Work Phone: Start: 05-11-2023 Adult depression scr eening assessment Louie Yuantiku Work Phone: Start: 11-22-2020 Radiologic exam ches t single view Heena John MD Start: 11-22-2020 Basic metabolic pane l calcium total Heena John MD Start: 11-22-2020 COVID-19, RAPID Heena John MD Start: 04-18-2020 Ct head/brain w/o co ntrast material SHIVAPRASAD JESUS MANUEL Start: 04-16-2020 Assay of thyroid stimulating hormone tsh SHIVAPRASAD JESUS MANUEL Start: 04-16-2020 Blood count complete automated SHIVAPRASAD JESUS MANUEL Start: 04-16-2020 Comprehensive metabo lic panel SHIVAPRASAD JESUS MANUEL Start: 04-16-2020 Hemoglobin glycosylated a1c SHIVAPRASAD JESUS MANUEL Start: 04-16-2020 Assay of thyroid stimulating hormone tsh Shivaprasad K Jesus Manuel Work Phone: Start: 04-16-2020 Blood count complete automated Shivaprasad K Jesus Manuel Work Phone: Start: 04-16-2020 Comprehensive metabo lic panel Shivaprasad K Jesus Manuel Work Phone: Start: 04-16-2020 Hemoglobin glycosylated a1c Shivaprasad K Jesus Manuel Work Phone: Start: 03-23-2020 Mri any jt upper ext remity w/o contrast matrl SHIVAPRASAD JESUS MANUEL Start: 03-23-2020 Mri any jt upper ext remity w/o contrast matrl Enesi O Cora Work Phone: Start: 11-02-2019 Assay of troponin quantitative Warren Olivas Work Phone: Start: 11-02-2019 Ecg routine ecg w/le ast 12 lds w/i&r Warren Olivas Work Phone: Start: 11-02-2019 Radiologic exam ches t single view Warren Olivas Work Phone: Start: 11-02-2019 Assay of lactate Warren Olivas Work Phone: Start: 11-02-2019 Assay of troponin quantitative Warren Olivas Work Phone: Start: 11-02-2019 Blood count complete auto&auto difrntl wbc Warren Olivas Work Phone: Start: 11-02-2019 C-reactive protein Anton Olivas Work Phone: Start: 11-02-2019 Comprehensive metabo lic panel Warren Olivas Work Phone: Start: 11-02-2019 Fibrin dgradj produc ts d-dimer quantitative Warren Olivas Work Phone: Start: 11-02-2019 Lactate dehydrogenase ldh Warren Olivas Work Phone: Start: 10-06-2019 Assay of free thyroxine Niall Scanlon Work Phone: Start: 10-06-2019 Assay of thyroid stimulating hormone tsh Niall Scanlon Work Phone: Start: 10-06-2019 Blood count complete auto&auto difrntl wbc Niall Scanlon Work Phone: Start: 10-06-2019 Comprehensive metabo lic panel Niall Scanlon Work Phone: Start: 10-06-2019 B.A.L. CELL COUNT Forest Childs Work Phone: Start: 10-06-2019 CELL COUNT W DIFF, BAL [employer] Work Phone: Start: 10-06-2019 Smr prim src fluorescent&/afs bct fngi parasit [employer] Work Phone: Start: 10-06-2019 Virus centrifuge enh ncd id imfluor stain ea [employer] Work Phone: Start: 10-06-2019 Virus tiss cul inocu lation cytopathic effect [employer] Work Phone: Start: 10-06-2019 End: 10-06-2019 Brnchsc w/brncl alveolar lavage [employer] Childs Work Phone: Start: 10-05-2019 Radiologic exam ches t single view [employer] Work Phone: Start: 10-05-2019 BASIC METABOLIC PANE L W/ REFLEX TO MG FOR LOW K [employer] Work Phone: Start: 10-05-2019 Blood count complete auto&auto difrntl wbc [employer] Work Phone: Start: 09-15-2019 Radiologic exam ches t single view Levy Bahu Work Phone: Start: 08-29-2019 Blood count complete auto&auto difrntl wbc Fuentes U Jiang Work Phone: Start: 08-28-2019 Blood count complete auto&auto difrntl wbc Fuentes U Jiang Work Phone: Start: 08-26-2019 BASIC METABOLIC PANE L W/ REFLEX TO MG FOR LOW K Caden Baldwin Work Phone: Start: 08-26-2019 Blood count complete automated Caden Baldwin Work Phone: Start: 08-25-2019 Radiologic exam ches t single view Jacob Granado Work Phone: Start: 08-25-2019 Assay of amylase Jacob Granado Work Phone: Start: 08-25-2019 Assay of lipase Jacob Granado Work Phone: Start: 08-25-2019 Assay of troponin quantitative Jacob Granado Work Phone: Start: 08-25-2019 BASIC METABOLIC PANE L W/ REFLEX TO MG FOR LOW K Jacob Granado Work Phone: Start: 08-25-2019 Blood count complete auto&auto difrntl wbc Jacob Granado Work Phone: Start: 08-25-2019 Hepatic function panel Jacob Granado Work Phone: Start: 08-25-2019 Iaadiadoo influenza Fuado jose alberto Granado Work Phone: Start: 08-25-2019 Natriuretic peptide Fuado jose alberto Granado Work Phone: Start: 08-25-2019 Prothrombin time Jacob Granado Work Phone: Start: 08-25-2019 Thromboplastin time partial plasma/whole blood Jacob Granado Work Phone: Start: 08-25-2019 Ecg routine ecg w/le ast 12 lds i&r only Jacob Granado Work Phone: Start: 08-25-2019 EKG REPORT Hpf Scanni ng Start: 08-10-2019 Radiologic exam ches t 2 views Caden Jb [employer] Work Phone: Start: 08-10-2019 Basic metabolic pane l calcium total [employer] Child[employer] Work Phone: Start: 08-10-2019 Blood count complete automated [employer] Work Phone: Start: 08-09-2019 Basic metabolic pane l calcium total [employer] Work Phone: Start: 08-09-2019 Blood count complete automated [employer] Work Phone: Start: 08-08-2019 Cell count miscellan eous body fluids Caden M [employer] Work Phone: Start: 08-08-2019 DIFFERENTIAL, BODY FLUID Caden VillalpandoBonfyre Work Phone: Start: 08-08-2019 Smr prim src fluorescent&/afs bct fngi parasit Caden Muhammad Chapincito Work Phone: Start: 08-08-2019 SURGICAL PATHOLOGY Kuldeep n Childs Work Phone: Start: 08-08-2019 Virus centrifuge enh ncd id imfluor stain ea Caden Jb Baldwin Work Phone: Start: 08-08-2019 End: 08-08-2019 [facility] fluor gdnce dx w/cell washg spx [employer] Work Phone: Start: 08-08-2019 Basic metabolic pane l calcium total [employer] Work Phone: Start: 08-08-2019 Blood count complete automated [employer] Work Phone: Start: 08-07-2019 Basic metabolic pane l calcium total [employer] Work Phone: Start: 08-07-2019 Blood count complete automated [employer] Work Phone: Start: 08-06-2019 Basic metabolic pane l calcium total [employer] Work Phone: Start: 08-06-2019 Blood count complete automated [employer] Work Phone: Start: 08-05-2019 Procalcitonin (pct) Francisco Seocrowmónica Work Phone: Start: 08-05-2019 Radiologic exam ches t single view Heena John Start: 08-05-2019 Basic metabolic pane l calcium total Heena John Start: 08-05-2019 Blood count complete auto&auto difrntl wbc Heena John Start: 08-05-2019 Fibrin dgradj produc ts d-dimer quantitative Heena John Start: 05-11-2019 Assay of thyroid stimulating hormone tsh AIYANAPRASONI KEN Start: 05-11-[address] gtt 3 specimens SHIVAPRAD JESUS MANUEL Start: 05-11-2019 Lipid panel SHIVAPRASA D JESUS MANUEL Start: 05-11-2019 Assay of thyroid stimulating hormone tsh Najma [employer] Phone: Start: 05-11-[address] gtt 3 specimens Najma Martinez Jesus Manuel [email or web address] Phone: Start: 05-11-2019 Lipid panel Fer Martinez [employer] Phone: Plan of Treatment Date Care Activity Detail Author Start: 08-31-2025 COVID-19 Vaccine (1) COVID-19 Vaccin e (1) [employer] Phone: Comment on above: Postponed from 03/05 (Patient Refused) Start: 08-31-2025 Influenza vaccination Flu vacc ine (Season Ended) [employer] Phone: Comment on above: Postponed from 02/20 (Patient Refused) Start: 08-08-2024 Pneumococcal 0-64 ye ars Vaccine (2 of 2) Pneumococcal 0-64 years Vaccine (2 of 2) [employer] Phone: Start: 07-30-2024 Adult BMI Screening Adult BMI Screen [facility] [employer] [facility] Start: 07-30-2024 Depression Screening Depression Scre [facility] Start: 07-30-2024 Tobacco Screening Tobacco Screening [facility] Start: 05-11-2024 Adult BMI Screening Adult BMI Screen [facility] [employer] [facility] Start: 05-11-2024 Depression Screening Depression Scre [facility] Start: 05-11-2024 Lipid panel Lipid screen [place], [place] Start: 05-11-2024 Lipid screen Lipid screen [place] Start: 05-11-2024 Tobacco Screening Tobacco Screening [facility] [employer] [facility] Start: 12-12-2023 Tobacco Counseling Tobacco Counselin g [facility] Start: 09-20-2023 Influenza vaccination Influenza Vacc ine [facility] Comment on above: Postponed from 02/20 (Patient Refused) Start: 08-26-2023 End: 08-26-2023 Patient encounter procedure 08/26/2023 11:45 AM EST Office Visit [facility] [address] [place] [phone] Sarah Fernández, LIP CUTTER-LIGHTING ENGINEERING TECHNICIAN [address], [address] [place] [address] [facility] Start: 08-12-2023 Adult BMI Follow Up Plan Adult BMI Follow Up Plan [facility] Start: 05-11-2022 Diabetes screen Diabetes screen [place], [place] Start: 10-17-2021 Shingles Vaccine (1 of 2) Shingles Vaccine (1 of 2) [employer] Phone: Comment on above: Postponed from 03/05 (Patient Refused) Start: 04-16-2021 Hemoglobin A1c measurement A1C test (Diabetic or Prediabetic) [employer] Phone: Start: 04-16-2021 Thyroid stimulating hormone measurement [facility] Phone: Start: 12-24-2020 DTaP/Tdap/Td vaccine (1 - Tdap) DTaP/Tdap/Td vaccine (1 - Tdap) [employer] Phone: Comment on above: Postponed from 03/05 (Patient Refused) Start: 10-05-2020 TSH Qn TSH testing [place], [place] Start: 10-05-2020 TSH testing TSH testing [place] Start: 05-11-2020 TSH testing TSH testing [place] Start: 05-10-2020 End: 05-10-2020 Office Visit 05/10/2020 Office Visit Primary Care Najma Ken MD [address] [place] [id number] [employer] Start: 05-05-2020 DTaP/Tdap/Td vaccine (1 - Tdap) DTaP/Tdap/Td vaccine (1 - Tdap) [place] Comment on above: Postponed from 03/05 (Patient Refused) Postponed from 03/05 (Patient Refused) Start: 05-05-2020 Hepatitis C screen Hepatitis C scree [place] Comment on above: Postponed from 03/05 (Patient Refused) Start: 05-05-2020 Hepatitis C screening Hepatitis C sc minnan [place] Comment on above: Postponed from 03/05 (Patient Refused) Start: 05-05-2020 HIV screen HIV screen [place] Comment on above: Postponed from 03/05 (Patient Refused) Start: 05-05-2020 HIV screening HIV screen [facility] Cristine [place] Comment on above: Postponed from 03/05 (Patient Refused) Start: 04-18-2020 End: 04-18-2020 Appointment 04/18/2020 Appointment Radiology [facility] CT Scan Start: 02-21-2020 Influenza vaccination M [place] Start: 08-04-2019 End: 08-04-2019 Office Visit 08/04/2019 Office Visit Primary Care Najma Ken MD [address] [place] [address] [phone] [facility] Start: 02-20-2019 Influenza vaccination Flu vaccine (# 1) [place], [place] Start: [address] lung screening Low dose CT lung screening [place] Start: 2009 Administration of varicella zoster vaccine Zoster (Shingles) Vaccine (1 of 2) [facility] Start: 2009 Breast cancer screen Breast cancer s creen [place], [place] Start: 2009 Colon cancer screen colonoscopy Colon cancer screen colonoscopy [place] Start: 2009 Screening for malign ant neoplasm of breast Breast cancer screen [place], [place] Start: 2009 Screening for malign ant neoplasm of colon Colon cancer screen colonoscopy [place], [place] Start: 2009 Shingles Vaccine (1 of 2) Shingles Vaccine (1 of 2) [place] Start: 1999 Diabetes screen Diabetes screen [place], [place] Start: 1999 Lipid screen Lipid screen [place], [place] Start: 1978 DTaP,Tdap and Td Vaccines (1 - Tdap) DTaP,Tdap and Td Vaccines (1 - Tdap) [facility] Start: 1965 Pneumococcal 0-64 ye ars Vaccine (1 of 1 - PPSV23) Pneumococcal 0-64 years Vaccine (1 of 1 - PPSV23) [place], [place] Start: 1959 TSH testing TSH testing [place] Acapella Acapella Respira tory Care Routine Daily until discontinued starting 08/06/2019 [place] Comment on above: Daily until disconti nued starting 08/06/2019 [place] St[place] Comment on above: Release Upon Orderin g for 1 Occurrences starting 10/06/2019 ONE TIME for 1 Occur rences starting 08/08/2019 Basic Metabolic Prof Basic Metab olic Prof Lab Routine Daily until discontinued starting 08/06/2019, 5 completed [place] Comment on above: Daily until disconti nued starting 08/06/2019, 5 completed Body fluid cell count [place] Comment on above: Release Upon Orderin g for 1 Occurrences starting 10/06/2019 ONE TIME for 1 Occur rences starting 08/08/2019 CBC CBC Lab Routine Daily until discontinued starting 08/06/2019, 5 completed [place] Comment on above: Daily until disconti nued starting 08/06/2019, 5 completed End: 09-01-2019 CBC auto differential CBC auto differential Lab Routine Daily for 5 Occurrences starting 08/28/2019 until 09/01/2019, 2 completed [place] Comment on above: Daily for 5 Occurren kisha starting 08/28/2019 until 09/01/2019, 2 completed End: 09-01-2019 Comprehensive Metabolic Panel w/ Reflex to MG Comprehensive Metabolic Panel w/ Reflex to MG Lab Routine Daily for 5 Occurrences starting 08/28/2019 until 09/01/2019, 2 completed [place] Comment on above: Daily for 5 Occurren kisha starting 08/28/2019 until 09/01/2019, 2 completed Culture with Smear, Acid Fast Bacillius [place] Comment on above: Release Upon Orderin g for 1 Occurrences starting 10/06/2019 ONE TIME for 1 Occur rences starting 08/08/2019 Culture, Fungus [place] Comment on above: Release Upon Orderin g for 1 Occurrences starting 10/06/2019 ONE TIME for 1 Occur rences starting 08/08/2019 End: 10-06-2019 Culture, Fungus Culture, Fungus Microbiology Routine Once for 1 Occurrences starting 10/06/2019 until 10/06/2019 [place] Comment on above: Once for 1 Occurrenc es starting 10/06/2019 until 10/06/2019 Culture, Legionella [place], [place] Comment on above: Release Upon Orderin g for 1 Occurrences starting 10/06/2019 End: 10-06-2019 Culture, Legionella Culture, Legionella Microbiology Routine Once for 1 Occurrences starting 10/06/2019 until 10/06/2019 [place] Comment on above: Once for 1 Occurrenc es starting 10/06/2019 until 10/06/2019 Culture, Respiratory [facility] [place] Comment on above: Release Upon Orderin g for 1 Occurrences starting 10/06/2019 ONE TIME for 1 Occur rences starting 08/08/2019 Culture, Virus, Respiratory Culture, Virus, Respiratory Microbiology Routine Release Upon Ordering for 1 Occurrences starting 10/06/2019 [place] Comment on above: Release Upon Orderin g for 1 Occurrences starting 10/06/2019 Cytology, Non-Assembler Lay Ups Cytology, Non- Assembler Lay Ups Lab Routine ONE TIME for 1 Occurrences starting 08/08/2019 [place] Comment on above: ONE TIME for 1 Occur rences starting 08/08/2019 EKG 12 Lead EKG 12 Lead ECG STAT 11/02/2019 10:57 AM EDT [place] Fungal stain [facility] Comment on above: Release Upon Orderin g for 1 Occurrences starting 10/06/2019 ONE TIME for 1 Occur rences starting 08/08/2019 End: 08-08-2019 Fungus Culture Fungus Culture Microbiology Routine Once for 1 Occurrences starting 08/08/2019 until 08/08/2019 [place] Comment on above: Once for 1 Occurrenc es starting 08/08/2019 until 08/08/2019 HHN Treatment [facility] [place] Comment on above: As Needed until disc ontinued starting 08/25/2019 0800, 1200, 1600, 20 00 (respiratory use only) until discontinued starting 08/26/2019 Every 8hr until disc ontinued starting 08/27/2019 0600, 1000, 1400, 18 00, 2200 until discontinued starting 10/05/2019 0600, 1000, 1400, 18 00, 2200 until discontinued starting 08/05/2019 Daily until disconti nued starting 08/09/2019 End: 10-08-2019 Home O2 eval (desaturation screen) Home O2 eval (desaturation screen) Respiratory Care Routine One Time for 1 Occurrences starting 10/08/2019 until 10/08/2019 [facility] Comment on above: One Time for 1 Occur rences starting 10/08/2019 until 10/08/2019 End: 08-09-2019 Home O2 eval (desaturation screen) Home O2 eval (desaturation screen) Respiratory Care Routine One Time for 1 Occurrences starting 08/09/2019 until 08/09/2019 [facility] Comment on above: One Time for 1 Occur rences starting 08/09/2019 until 08/09/2019 Initiate Oxygen Ther apy Protocol [facility] Comment on above: Daily until disconti nued starting 08/25/2019 Daily until disconti nued starting 08/27/2019 Daily until disconti nued starting 11/02/2019 MetaNeb MetaNeb Respirat ory Care Routine 0600, 1000, 1400, 1800, 2200 until discontinued starting 08/09/2019 [facility] [place] Comment on above: 0600, 1000, 1400, 18 00, 2200 until discontinued starting 08/09/2019 Microscopic observat ion Gram stain Nom (Unsp spec) [place] Comment on above: Release Upon Orderin g for 1 Occurrences starting 10/06/2019 ONE TIME for 1 Occur rences starting 08/08/2019 End: 08-25-2019 Pulse Oximetry Spot Check Pulse Oximetry Spot Check Respiratory Care Routine One Time for 1 Occurrences starting 08/25/2019 until 08/25/2019 [facility] [place] Comment on above: One Time for 1 Occur rences starting 08/25/2019 until 08/25/2019 End: 08-27-2019 Pulse Oximetry Spot Check Pulse Oximetry Spot Check Respiratory Care Routine One Time for 1 Occurrences starting 08/27/2019 until 08/27/2019 [place] Comment on above: One Time for 1 Occur rences starting 08/27/2019 until 08/27/2019 Pulse oximetry, overnight Pulse oximetry, overnight Respiratory Care Routine Every 4hr until discontinued starting 08/09/2019 [place] Comment on above: Every 4hr until disc ontinued starting 08/09/2019 Respiratory Care Evaluation and Treat Respiratory Care Evaluation and Treat Respiratory Care Routine Daily until discontinued starting 10/05/2019 [place] Comment on above: Daily until disconti nued starting 10/05/2019 Respiratory care evaluation only [place] Comment on above: Daily until disconti nued starting 08/26/2019 Daily until disconti nued starting 11/23/2020 Immunizations Immunization Date Immunization Notes Care Provider Fa anita 08-08-2019 pneumococcal vaccine , unspecified formulation [place], [place] 08-08-2019 pneumococcal polysaccharide vaccine, 23 valent [place], [place] NEGATED: Highlighted row has not occurred!08-10-2019 influenza, injectable, quadrivalent, preservative free [place] NEGATED: Highlighted row has not occurred!08-09-2019 influenza, injectable, quadrivalent, preservative free [place] NEGATED: Highlighted row has not occurred!08-08-2019 influenza, injectable, quadrivalent, preservative free [place] Comment on above: Deferred: - Patient refused flu vaccine. Would not like the vaccine at all. Payers Date Payer Category Payer Unknown BCBS BC[place] - [place] P PO xxxxxxxxxxxx 2018-Present [address] [place] [address] xxxxxxxxxxxx [id number] 2016 Unknown GURINDER AMAYA SS (PPO) [id number] 2016-Present [phone] [address] [place] [address] [id number] 1959 Unknown [id number] 1959 Unknown [id number] 1959 Unknown [id number] 1959 Unknown [id number] 1959 Unknown [id number] 1959 Unknown [id number] 1959 Unknown [id number] 1959 Unknown [id number] 1959 Unknown [id number] 1959 Unknown [id number] 1959 Unknown [id number] 1959 Unknown [id number] 1959 Unknown [id number] 1959 Unknown [id number] 1959 Unknown [id number] 6 Social History Date Type Detail Facility Start: 08-25-2019 End: 11-22-2020 Tobacco smoking status NHIS Former [place] Start: 08-25-2019 End: 08-02-2020 Cigarettes smoked current (pack per day) - Reported [facility] Start: 08-25-2019 End: 07-30-2023 Alcohol intake Current drinker of alcohol (finding) [place] Start: 08-08-2019 Tobacco Comment quit Jul 2019 [place] Start: 02-01-2019 [facility] [place] Start: 1960 Sex Assigned At Not on file [place] Start: 02-20-2020 End: 04-06-2022 Tobacco use and exposure Never used [place] Start: 05-05-2019 End: 04-06-2022 Tobacco smoking status NJIS Current every day smoker [facility] Exposure to SARS-CoV -2 (event) Unable to assess [place] End: 07-23-2019 History of tobacco use Current smoker [facility] Exposure to SARS-CoV -2 (event) Not sure [facility] History of tobacco use Cigarette Smoker P [facility] Start: 08-02-2020 End: 05-11-2023 Tobacco use panel [facility] Adolescent depressio n screening assessment 0 [facility] Start: 02-25-2023 Alcohol Comment Occasionally [facility] Goals Date Patient Goal Desired Activity /State Personal health goal Comment on above: Formatting of this n ote might be different from the original. Evaluation of progress towards goal: safe transition from hospital to home with family support. Clinical Notes 07-14-2023 to 07-30-2023 Louie Paul DO - 07/30/2023 10:40 AM ESTTelephone Encounter - Louie Paul DO - 07/14/2023 12:49 AM ESTTelephone Encounter - Edilma Cuevas - 07/14/2023 12:49 AM EST Note Date & Type Note Facility 07-30-2023 History of Presen t illness Narrative Images from the original note were not included. Subjective Patient ID: Cameron Us is a 63 y.o. female. Cameron presents for low back pain mostly on the right side. Pain radiates up back to neck area. She helped lift a safe at work at [employer] and felt sudden, intense pain that sent her to her knees. It was a [facility] case. This was when she was living in [place] in the mid to late . She saw doctors, had therapy and an MRI. They found bulging discs then. It was L3-L4 she thinks. Case was eventually closed. It was ok for years but now with her gaining weight it is increasing in pain. It was a gradual onset. She uses tylenol prn with mild improvement. Pain gets up to a 10 on a scale 1-10. Pain is always there but can get down to a 2 or 3 on a scale 1-10. Pain keeps her awake at night. She would also like a referral to an emt/dispatcher for a second opinion. She is taking her supplement but still feels tired. They had a friend who had normal labs but the emt/dispatcher did more labs and changed medications and it helped. She does have sleep apnea but isn't being treated with Bi-pap. She saw the specialist for her lungs but was more concerned about her sleep apnea. She is on oxygen at . The following portions of the patient's history were reviewed and updated as appropriate: allergies, current medications, past family history, past medical history, past social history, past surgical history, problem list, and medication reconciliation was completed including current medication and post discharge medication. Review of Systems Constitutional: Positive for fatigue and unexpected weight change. Respiratory: Positive for cough, shortness of breath and wheezing. Gastrointestinal: Negative. Endocrine: Negative. Genitourinary: Negative. Musculoskeletal: Positive for back pain and gait problem. Psychiatric/Behavioral: Positive for sleep disturbance. Objective Physical Exam Constitutional: General: She is not in acute distress. Appearance: She is not ill-appearing. HENT: Head: Normocephalic. Cardiovascular: Rate and Rhythm: Normal rate and regular rhythm. Heart sounds: Normal heart sounds. No murmur heard. Pulmonary: Effort: Pulmonary effort is normal. No respiratory distress. Breath sounds: Normal breath sounds. No wheezing, rhonchi or rales. Abdominal: Palpations: Abdomen is soft. Musculoskeletal: Cervical back: Neck supple. Lumbar back: Spasms and tenderness present. No bony tenderness. Decreased range of motion. Negative right straight leg raise test and negative left straight leg raise test. Back: Neurological: General: No focal deficit present. Mental Status: She is alert and oriented to person, place, and time. Cranial Nerves: Cranial nerves 2-12 are intact. Sensory: Sensation is intact. Motor: Motor function is intact. No weakness. Deep Tendon Reflexes: Reflex Scores: Patellar reflexes are 3+ on the right side and 3+ on the left side. Achilles reflexes are 2+ on the right side and 2+ on the left side. Psychiatric: Attention and Perception: Attention normal. Mood and Affect: Mood normal. Speech: Speech normal. Behavior: Behavior is uncooperative. Thought Content: Thought content normal. Cognition and Memory: Cognition normal. Judgment: Judgment normal. Assessment/Plan Cameron was seen today for discuss pain. back down to hip and up to the neck. . Diagnoses and all orders for this visit: Right-sided low back pain without sciatica, unspecified chronicity - Cancel: X-ray spine lumbar 2 or 3 views; Future - X-ray spine lumbar 2 or 3 views; Future - Ambulatory referral to Pain Management (Non-[facility]); Future Check x-ray of lumbar spine. Refer to pain management. Postoperative hypothyroidism - [facility] - [place], [place]; Future Refer to endocrinology for a second opinion Chronic obstructive pulmonary disease, unspecified COPD type ([facility]-HCC) Reviewed pulmonology consult with patient and . It was addressed at appointment and was doing ok. She needs to quit smoking. They also ordered labs but she hasn't gotten them done and didn't know she needed them. Encouraged to get labs. Obstructive sleep apnea She is not following treatment regimen. Recommended to follow recommendations. documented in this encounter [employer] 07-14-2023 Miscellaneous Notes Formattin g of this note might be different from the original. Rx sent in. Patient due recheck appointment LM on [facility] Telephone encount er Note Rx sent in. Patient due recheck appointment [facility]23 Telephone encount er Note LM on VM [facility] Diagnosis COPD exacerbation (HCC)- Primary Obstructive chronic bronchitis with exacerbation documented in this encounter [employer] Phone: evaluation note* Diagnosis Chronic rhinitis documented [facility] this [facility]* Diagnosis Acute exacerbation of chronic obstructive pulmonary disease (COPD) ([facility]-HCC) Obstructive chronic bronchitis with exacerbation [facility]* Diagnosis Chronic obstructive pulmonary disease, unspecified COPD type (CMS-HCC)- Primary Right-sided low back pain without sciatica, unspecified chronicity Postoperative hypothyroidism Postsurgical hypothyroidism Obstructive sleep apnea Obstructive sleep apnea (adult) (pediatric) documented in this encounter [facility] [employer] [facility]* Attachments The following attachments cannot be sent through Care Everywhere. * COPD Exacerbation Plan (Bhutanese) documented in [facility] [employer] Phone: InstructionsNot on filedocumented in this encounter [facility] [employer] [facility]InstructionsNot on filedocumented in this encounter [facility] CenterJustBookInstructionsNot on filedocumented in this encounter [facility]sReason for referral (narrative)* Consultation (Routine) - Pending Review Specialty Diagnoses / Procedures Referred By Emily horn Referred To Contact Endocrinology Diagnoses Postoperative hypothyroidism Louie Paul DO [address] [facility], [place] [address] Celia Calhoun MD [address] [address] Referral ID Status Reason Start Date Expiration Date Visits Requested Visits Authorized [id number] Pending Review Specialty Services Required 07/30/2023 07/29/2024 1 1 * Consultation (Routine) - Pending Review Specialty Diagnoses / Procedures Referred By Emily horn Referred To Contact Pain Medicine Diagnoses Right-sided low back pain without sciatica, unspecified chronicity Louie Paul DO [address] [facility], [place] [address] [place] [address] [address] Referral ID Status Reason Start Date Expiration Date V isits Requested Visits Authorized [id number] Pending Review 07/30/2023 07/29/2024 1 1 [facility] History of Present Illness * Erin Ansari RN - 08/29/2019 7:38 PM EDT IV pulled by lazaro RN. Patient dc papers given. Patient dc'd with all belongings and scripts. * Nati Neves OT - 08/29/2019 12:48 PM EDT [facility] OCCUPATIONAL THERAPY MISSED TREATMENT NOTE INPATIENT Date: 08/29/19 Patient Name: Cameron Us Room: : 1960 (59 y.o.) Gender: female REASON FOR MISSED TREATMENT: Patient refusal - OT being discontinued at this time. Patient functioning at Premorbid Level No further needs Patient reports hopeful discharge home today, reports baseline/independence with self care and mobility this date. D/C OT orders. Nati Neves OT * Forest Childs MD - 08/29/2019 11:24 AM EDT PULMONARY PROGRESS NOTE: REASON FOR VISIT: copd exac, influenza Interval History: Shortness of Breath: better Cough: +, improving Sputum: no Hemoptysis: no Chest Pain: no Fever: no Swelling Feet: no Headache: no Nausea, Emesis, Abdominal Pain: no Diarrhea: no Constipation: no Events since last visit: none PAST MEDICAL HISTORY: Scheduled Meds: predniSONE 20 mg Oral Daily sodium chloride flush 10 mL Intravenous 2 times per day oseltamivir 75 mg Oral BID dilTIAZem 60 mg Oral 4x Daily ipratropium 0.5 mg Nebulization 4x daily sodium chloride flush 10 mL Intravenous 2 times per day apixaban 5 mg Oral BID budesonide-formoterol 2 puff Inhalation BID DULoxetine 20 mg Oral Nightly levothyroxine 125 mcg Oral Daily montelukast 10 mg Oral Nightly therapeutic multivitamin-minerals 1 tablet Oral Daily famotidine 20 mg Oral BID Continuous Infusions: PRN Meds:sodium chloride flush, potassium chloride OR potassium alternative oral replacement OR potassium chloride, magnesium sulfate, acetaminophen OR acetaminophen, polyethylene glycol,promethazine OR ondansetron, benzonatate, levalbuterol, sodium chloride nebulizer, sodium chloride flush, sodium chloride, ipratropium-albuterol, HYDROcodone-homatropine PHYSICAL EXAMINATION: BP (!) 146/89 Pulse 96 Temp 97.9 F (36.6 C) (Oral) Resp 18 Ht 5' 9 (1.753 m) Wt 217 lb 13 oz (98.8 kg) SpO2 99% BMI 32.17 kg/m afebrile General : Awake, alert Neck supple, no lymphadenopathy, JVD not raised Heart regular rhythm, S1 and S2 normal; no additional sounds heard Lungs Air Entry- fair bilaterally; breath sounds : vesicular; rales/crackles - absent, 95% on RA Abdomen soft, no tenderness Upper Extremities - no cyanosis, mottling; edema : absent Lower Extremities: no cyanosis, mottling; edema : absent Current Laboratory, Radiologic, Microbiologic, and Diagnostic studies reviewed Data ReviewCBC: Recent Labs 08/28/19 0637 08/29/19 0626 WBC 14.2* 13.2* RBC 4.29 4.27 HGB 13.2 13.1 HCT 40.1 39.9 PLT 339 341 BMP: Recent Labs 08/28/19 0637 08/29/19 0626 GLUCOSE 153* 125* NA 143 142 K 4.4 4.5 BUN 21 28* CREATININE 0.82 0.73 CALCIUM 7.8* 7.9* ABGs: No results for input(s): PHART, PO2ART, GQL0HHP, MCE4GXW, BEART, R7QBGJAF, VOP1EQX in the last 72 hours. PT/INR: No results found for: PTINR ASSESSMENT / PLAN: Copd exac - steroid, BD - to po meds Influenza - tamiflu Cough suppressants Okay for home from pulmonary standpoint Plan of care discussed with Dr Childs . REASON FOR VISIT: copd, influenza I examined the patient myself The assessment and Plan in the note per my discussion with [employer] [employer]. . * Dalila Dash RN - 08/29/2019 10:43 AM EDT Assessment completed and charted. Patient in bed with eyes open and television on. Denies any needsat this time. * Forest Childs MD - 08/28/2019 12:22 PM EDT PULMONARY PROGRESS NOTE: REASON FOR VISIT: copd exac, influenza Interval History: Shortness of Breath: ++ Cough: +, improving Sputum: no Hemoptysis: no Chest Pain: no Fever: no Swelling Feet: no Headache: no Nausea, Emesis, Abdominal Pain: no Diarrhea: no Constipation: no Events since last visit: none PAST MEDICAL HISTORY: Scheduled Meds: sodium chloride flush 10 mL Intravenous 2 times per day oseltamivir 75 mg Oral BID methylPREDNISolone 40 mg Intravenous Q8H dilTIAZem 60 mg Oral 4x Daily ipratropium 0.5 mg Nebulization 4x daily sodium chloride flush 10 mL Intravenous 2 times per day apixaban 5 mg Oral BID budesonide-formoterol 2 puff Inhalation BID DULoxetine 20 mg Oral Nightly levothyroxine 125 mcg Oral Daily montelukast 10 mg Oral Nightly therapeutic multivitamin-minerals 1 tablet Oral Daily famotidine 20 mg Oral BID Continuous Infusions: PRN Meds:sodium chloride flush, potassium chloride OR potassium alternative oral replacement OR potassium chloride, magnesium sulfate, acetaminophen OR acetaminophen, polyethylene glycol,promethazine OR ondansetron, benzonatate, levalbuterol, sodium chloride nebulizer, sodium chloride flush, acetaminophen, sodium chloride, ipratropium-albuterol, HYDROcodone-homatropine PHYSICAL EXAMINATION: BP 108/69 Pulse 91 Temp 97.2 F (36.2 C) (Oral) Resp 18 Ht 5' 9 (1.753 m) Wt 218 lb 0.6 oz (98.9 kg) SpO2 94% BMI 32.20 kg/m General : Awake, alert, Neck supple, no lymphadenopathy, JVD not raised Heart regular rhythm, S1 and S2 normal; no additional sounds heard Lungs Air Entry- fair bilaterally; breath sounds : vesicular; rales/crackles - absent Abdomen soft, no tenderness Upper Extremities - no cyanosis, mottling; edema : absent Lower Extremities: no cyanosis, mottling; edema : absent Current Laboratory, Radiologic, Microbiologic, and Diagnostic studies reviewed Data ReviewCBC: Recent Labs 08/25/19 1600 08/26/19 0538 08/28/19 0637 WBC 12.0* 6.9 14.2* RBC 5.15 4.51 4.29 HGB 15.7 14.1 13.2 HCT 47.4* 41.6 40.1 PLT 363 316 339 BMP: Recent Labs 08/25/19 1600 08/26/19 0538 08/28/19 0637 GLUCOSE 121* 179* 153* NA 134* 140 143 K 4.2 5.0 4.4 BUN 17 20 21 CREATININE 0.81 0.78 0.82 CALCIUM 8.6 8.1* 7.8* ABGs: No results for input(s): PHART, PO2ART, GWM3TOD, PJN7VWM, BEART, T2UATWFM, DDG0VTM in the last 72 hours. PT/INR: No results found for: PTINR ASSESSMENT / PLAN: Copd exac - steroid, BD - to po meds Influenza - tamiflu Cough suppressants . * Magen Ruckeryoko Laurie, PT - 08/28/2019 12:11 PM EDT Physical Therapy Facility/Department: [facility] Initial Assessment NAME: Cameron Us : 1960 Date of Service: 08/28/2019 Discharge Recommendations: The patient's needs are being met with no further therapy recommended at discharge. Assessment Assessment: Pt demonstrates safe mobility, able to ambulate shrt distances without ouse of o2, no need for skiled PT Prognosis: Fair Decision Making: Low Complexity No Skilled PT: Safe to return home REQUIRES PT FOLLOW UP: No Patient Diagnosis(es): The primary encounter diagnosis was COPD exacerbation (HCC). A diagnosis of Influenza with respiratory manifestation other than pneumonia was also pertinent to this visit. has a past medical history of Bronchitis, Fibromyalgia, Pulmonary embolism (HCC), and Tumor. has a past surgical history that includes Carpal tunnel release; Finger trigger release; tumor removal; Thyroid surgery; Hysterectomy, vaginal; Appendectomy; shoulder surgery (Left, 2006); Hand surgery (Left); and bronchoscopy (N/A, 08/08/2019). Restrictions Vision/Hearing Vision: Impaired Vision Exceptions: Wears glasses at all times Hearing: Within functional limits Subjective General Patient assessed for rehabilitation services?: Yes Additional Pertinent Hx: The patient is a 59 y.o. female who presents with h/o of cough and fever,pt who was recently in hospital was d/c from hospital,pt who was chronic smoker and had mucus plugging,pt had bronch and felt better,pt was d/c, now comes with high fever,pt says she did not take flu shot. Diagnosed with Influenza. Referral Date : 08/27/19 Diagnosis: Influenza Follows Commands: Within Functional Limits Pain Screening Patient Currently in Pain: Yes Pain Assessment Pain Assessment: 0-10 Pain Level: 6 Pain Type: Acute pain Pain Location: Chest Pain Orientation: Right;Left(Lateral) Pain Descriptors: Discomfort(From coughing) Pain Frequency: Intermittent Pain Onset: On-going Clinical Progression: Not changed Vital Signs Patient Currently in Pain: Yes Oxygen Therapy O2 Device: Nasal cannula O2 Flow Rate (L/min): 2 L/min Orientation Social/Functional History Social/Functional History Lives With: Spouse Type of Home: House Home Layout: Two level, Bed/Bath upstairs, 1/2 bath on main level Home Access: Stairs to enter with rails, Stairs to enter without rails Entrance Stairs - Number of Steps: 5 steps with 1 HR atentrance, has a rail to 2nd floor to Bathroom Shower/Tub: Curtain, Tub/Shower unit Bathroom Toilet: Handicap height Home Equipment: Oxygen(2 lt o2 PRN) ADL Assistance: Independent Ambulation Assistance: Independent Transfer Assistance: 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 Cognition Objective AROM RLE (degrees) RLE AROM: WFL AROM LLE (degrees) LLE AROM : WFL AROM RUE (degrees) RUE AROM : WFL AROM LUE (degrees) LUE AROM : WFL Strength RLE Strength RLE: WFL Strength LLE Strength LLE: WFL Strength RUE Strength RUE: WFL Strength LUE Strength LUE: WFL Sensation Overall Sensation Status: WFL Bed mobility Rolling to Left: Independent Rolling to Right: Independent Supine to Sit: Independent Sit to Supine: Independent Scooting: Independent Transfers Sit to Stand: Independent Stand to sit: Independent Ambulation Ambulation?: Yes More Ambulation?: Yes Ambulation 1 Surface: level tile Device: No Device Other Apparatus: O2(2 lt) Assistance: Independent Quality of Gait: No LOB, HR fluctuates due to Hx of A -fib Distance: 80 ft in the room Ambulation 2 Surface - 2: level tile Device 2: No device Other Apparatus 2: (No o2 used) Assistance 2: Independent Quality of Gait 2: Sao2 95% without use of o2 Distance: 60 ft Comments: No LOB Balance Posture: Good Sitting - Static: Good Sitting - Dynamic: Good Standing - Static: Good Standing - Dynamic: Good Plan Plan Times per week: NA G-Code OutComes Score AM-PAC Score Goals Short term goals Time Frame for Short term goals: NA Patient Goals Patient goals : Decrease cough Therapy Time Individual Concurrent Group Co-treatment Time In 1029 Time Out 1051 Minutes 22 Dre Rucker PT * Fuentes Jiang MD - 08/28/2019 11:43 AM EDT Progress Note 08/28/2019 11:43 AM Name: Cameron Us Acct: [id number] Room: Day: 1 Admit Date: 08/25/2019 3:06 PM PCP: Najma Ken MD Subjective: C/C: Chief Complaint Patient presents with Shortness of Breath Interval History: Status: not changed. patient still has cough and dyspnea ROS: all 10 systems reviewed and are negative except as noted Review of Systems Constitutional: Negative for appetite change and fatigue. HENT: Positive for congestion. Negative for postnasal drip, sinus pressure, sinus pain and sore throat. Eyes: Negative for pain and discharge. Respiratory: Positive for cough, shortness of breath and wheezing. Negative for apnea, chest tightness and stridor. Cardiovascular: Negative for chest pain and palpitations. Gastrointestinal: Negative for anal bleeding and rectal pain. Endocrine: Negative for polydipsia and polyphagia. Genitourinary: Negative for decreased urine volume, flank pain and hematuria. Musculoskeletal: Negative for joint swelling and neck stiffness. Skin: Negative for rash. Allergic/Immunologic: Negative for food allergies. Neurological: Negative for seizures, facial asymmetry and speech difficulty. Hematological: Does not bruise/bleed easily. Psychiatric/Behavioral: Negative for behavioral problems and suicidal ideas. The patient is not hyperactive. Medications: Allergies: No Known Allergies Current Meds: sodium chloride flush 0.9 % injection 10 mL, 2 times per day sodium chloride flush 0.9 % injection 10 mL, PRN potassium chloride (KLOR-CON M) extended release tablet 40 mEq, PRN Or potassium bicarb-citric acid (EFFER-K) effervescent tablet 40 mEq, PRN Or potassium chloride 10 mEq/100 mL IVPB (Peripheral Line), PRN magnesium sulfate 1 g in dextrose 5% 100 mL IVPB, PRN acetaminophen (TYLENOL) tablet 650 mg, Q6H PRN Or acetaminophen (TYLENOL) suppository 650 mg, Q6H PRN polyethylene glycol (GLYCOLAX) packet 17 g, Daily PRN promethazine (PHENERGAN) tablet 12.5 mg, Q6H PRN Or ondansetron (ZOFRAN) injection 4 mg, Q6H PRN oseltamivir (TAMIFLU) capsule 75 mg, BID methylPREDNISolone sodium (SOLU-MEDROL) injection 40 mg, Q8H benzonatate (TESSALON) capsule 100 mg, TID PRN dilTIAZem (CARDIZEM) tablet 60 mg, 4x Daily ipratropium (ATROVENT) 0.02 % nebulizer solution 0.5 mg, 4x daily levalbuterol (XOPENEX) nebulizer solution 1.25 mg, Q8H PRN sodium chloride nebulizer 0.9 % solution 3 mL, Q8H PRN sodium chloride flush 0.9 % injection 10 mL, 2 times per day sodium chloride flush 0.9 % injection 10 mL, PRN acetaminophen (TYLENOL) tablet 650 mg, Q4H PRN apixaban (ELIQUIS) tablet 5 mg, BID budesonide-formoterol (SYMBICORT) 160-4.5 MCG/ACT inhaler 2 puff, BID DULoxetine (CYMBALTA) extended release capsule 20 mg, Nightly levothyroxine (SYNTHROID) tablet 125 mcg, Daily montelukast (SINGULAIR) tablet 10 mg, Nightly therapeutic multivitamin-minerals 1 tablet, Daily sodium chloride (OCEAN, BABY AYR) 0.65 % nasal spray 1 spray, PRN famotidine (PEPCID) tablet 20 mg, BID ipratropium-albuterol (DUONEB) nebulizer solution 1 ampule, Q4H PRN HYDROcodone-homatropine (HYCODAN) 5-1.5 MG/5ML syrup 5 mL, Q4H PRN Data: Code Status: Full Code Family History Problem Relation Age of Onset Cancer Mother Other Father Mult Sclerosis Sister Thyroid Disease Sister Stroke Sister Other Child Heart Attack Child Social History Socioeconomic History Marital status: Spouse name: Not on file Number of children: Not on file Years of education: Not on file Highest education level: Not on file Occupational History Not on file Social Needs Financial resource strain: Not on file Food insecurity Worry: Not on file Inability: Not on file Transportation needs Medical: Not on file Non-medical: Not on file Tobacco Use Smoking status: Former Smoker Packs/day: 1.00 Years: 40.00 Pack years: 40.00 Smokeless tobacco: Never Used Tobacco comment: quit Jul 2019 Substance and Sexual Activity Alcohol use: Yes Alcohol/week: 1.0 standard drinks Types: 1 Cans of beer per week Comment: OCCASIONALLY Drug use: Never Sexual activity: Yes Partners: Male Lifestyle Physical activity Days per week: Not on file Minutes per session: Not on file Stress: Not on file Relationships Social connections Talks on phone: Not on file Gets together: Not on file Attends adventist service: Not on file Active member of club or organization: Not on file Attends meetings of clubs or organizations: Not on file Relationship status: Not on file Intimate partner violence Fear of current or ex partner: Not on file Emotionally abused: Not on file Physically abused: Not on file Forced sexual activity: Not on file Other Topics Concern Not on file Social History Narrative Not on file I/O (24Hr): No intake or output data in the 24 hours ending 08/28/19 1143 Radiology: Xr Chest Portable Result Date: 08/25/2019 Unchanged mild cardiomegaly and vascular congestion. Interstitial edema appears slightly improved. Labs: Recent Results (from the past 24 hour(s)) Comprehensive Metabolic Panel w/ Reflex to MG Collection Time: 08/28/19 6:37 AM Result Value Ref Range Glucose 153 (H) 70 - 99 mg/dL BUN 21 8 - 23 mg/dL CREATININE 0.82 0.50 - 0.90 mg/dL Bun/Cre Ratio NOT REPORTED 9 - 20 Calcium 7.8 (L) 8.6 - 10.4 mg/dL Sodium 143 135 - 144 mmol/L Potassium 4.4 3.7 - 5.3 mmol/L Chloride 104 98 - 107 mmol/L CO2 29 20 - 31 mmol/L Anion Gap 10 9 - 17 mmol/L Alkaline Phosphatase 52 35 - 104 U/L ALT 17 5 - 33 U/L AST 13 <32 U/L Total Bilirubin 0.16 (L) 0.3 - 1.2 mg/dL Total Protein 6.0 (L) 6.4 - 8.3 g/dL Alb 3.5 3.5 - 5.2 g/dL Albumin/Globulin Ratio NOT REPORTED 1.0 - 2.5 GFR Non- >60 >60 mL/min GFR >60 >60 mL/min GFR Comment GFR Staging NOT REPORTED CBC auto differential Collection Time: 08/28/19 6:37 AM Result Value Ref Range WBC 14.2 (H) 3.5 - 11.0 k/uL RBC 4.29 4.0 - 5.2 m/uL Hemoglobin 13.2 12.0 - 16.0 g/dL Hematocrit 40.1 36 - 46 % MCV 93.5 80 - 100 fL MCH 30.8 26 - 34 pg MCHC 32.9 31 - 37 g/dL RDW 13.8 11.5 - 14.9 % Platelets 339 150 - 450 k/uL MPV 6.7 6.0 - 12.0 fL NRBC Automated NOT REPORTED per 100 WBC Differential Type NOT REPORTED Immature Granulocytes NOT REPORTED 0 % Absolute Immature Granulocyte NOT REPORTED 0.00 - 0.30 k/uL WBC Morphology NOT REPORTED RBC Morphology NOT REPORTED Platelet Estimate NOT REPORTED Seg Neutrophils 86 (H) 36 - 66 % Lymphocytes 6 (L) 24 - 44 % Monocytes 7 1 - 7 % Eosinophils % 0 0 - 4 % Basophils 0 0 - 2 % Bands 1 0 - 10 % Segs Absolute 12.22 (H) 1.3 - 9.1 k/uL Absolute Lymph # 0.85 (L) 1.0 - 4.8 k/uL Absolute Clarion # 0.99 0.1 - 1.3 k/uL Absolute Eos # 0.00 0.0 - 0.4 k/uL Basophils Absolute 0.00 0.0 - 0.2 k/uL Absolute Bands # 0.14 0.0 - 1.0 k/uL Morphology Normal Physical Examination: Vitals: BP 108/69 Pulse 91 Temp 97.2 F (36.2 C) (Oral) Resp 18 Ht 5' 9 (1.753 m) Wt 218 lb 0.6 oz (98.9 kg) SpO2 95% BMI 32.20 kg/m Temp (24hrs), Av.7 F (36.5 C), Min:97.2 F (36.2 C), Max:98.2 F (36.8 C) No results for input(s): POCGLU in the last 72 hours. Physical Exam Vitals signs reviewed. Constitutional: Appearance: She is well-developed. HENT: Head: Normocephalic and atraumatic. Right Ear: External ear normal. Left Ear: External ear normal. Nose: Congestion and rhinorrhea present. Mouth/Throat: Pharynx: Oropharynx is clear. Eyes: General: Lids are normal. Neck: Trachea: No tracheal deviation. Cardiovascular: Rate and Rhythm: Normal rate and regular rhythm. Heart sounds: Normal heart sounds, S1 normal and S2 normal. Pulmonary: Effort: Pulmonary effort is normal. No respiratory distress. Breath sounds: Wheezing and rales present. Abdominal: General: Bowel sounds are normal. There is no distension. Palpations: Abdomen is soft. Tenderness: There is no abdominal tenderness. There is no guarding. Musculoskeletal: General: No tenderness or deformity. Lymphadenopathy: Cervical: No cervical adenopathy. Upper Body: Right upper body: No supraclavicular or epitrochlear adenopathy. Left upper body: No supraclavicular or epitrochlear adenopathy. Skin: General: Skin is warm and dry. Capillary Refill: Capillary refill takes less than 2 seconds. Neurological: Mental Status: She is alert. Motor: No abnormal muscle tone or seizure activity. Psychiatric: Speech: Speech normal. Behavior: Behavior normal. Judgment: Judgment normal. Assessment: Primary Problem Influenza A Principal Problem: Influenza A Active Problems: Postoperative hypothyroidism COPD with acute exacerbation (HCC) Tachycardia with heart rate 100-120 beats per minute Resolved Problems: * No resolved hospital problems. 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 continue IV Solu-Medrol 2. Aerosol treatment 3. PPI 4. DVT Prophylaxis 5. EPCs 6. PT/OT to evaluate and treat 7. check and replace electrolytes per sliding scale * Forest Childs MD - 08/27/2019 4:20 PM EST PULMONARY PROGRESS NOTE: REASON FOR VISIT: copd exac, influenza Interval History: Shortness of Breath: ++ Cough: +++ Sputum: no Hemoptysis: no Chest Pain: no Fever: no Swelling Feet: no Headache: no Nausea, Emesis, Abdominal Pain: no Diarrhea: no Constipation: no Events since last visit: none PAST MEDICAL HISTORY: Scheduled Meds: sodium chloride flush 10 mL Intravenous 2 times per day oseltamivir 75 mg Oral BID methylPREDNISolone 40 mg Intravenous Q8H dilTIAZem 60 mg Oral 4x Daily ipratropium 0.5 mg Nebulization 4x daily sodium chloride flush 10 mL Intravenous 2 times per day apixaban 5 mg Oral BID budesonide-formoterol 2 puff Inhalation BID DULoxetine 20 mg Oral Nightly levothyroxine 125 mcg Oral Daily montelukast 10 mg Oral Nightly therapeutic multivitamin-minerals 1 tablet Oral Daily famotidine 20 mg Oral BID Continuous Infusions: PRN Meds:sodium chloride flush, potassium chloride OR potassium alternative oral replacement OR potassium chloride, magnesium sulfate, acetaminophen OR acetaminophen, polyethylene glycol,promethazine OR ondansetron, benzonatate, levalbuterol, sodium chloride nebulizer, sodium chloride flush, acetaminophen, sodium chloride, ipratropium-albuterol, HYDROcodone-homatropine PHYSICAL EXAMINATION: BP (!) 119/55 Pulse 83 Temp 97.6 F (36.4 C) (Oral) Resp 16 Ht 5' 9 (1.753 m) Wt 218 lb 0.6 oz (98.9 kg) SpO2 98% BMI 32.20 kg/m General : Awake, alert, Neck supple, no lymphadenopathy, JVD not raised Heart regular rhythm, S1 and S2 normal; no additional sounds heard Lungs Air Entry- fair bilaterally; breath sounds : vesicular; rales/crackles - absent Abdomen soft, no tenderness Upper Extremities - no cyanosis, mottling; edema : absent Lower Extremities: no cyanosis, mottling; edema : absent Current Laboratory, Radiologic, Microbiologic, and Diagnostic studies reviewed Data ReviewCBC: Recent Labs 08/25/19 1600 08/26/19 0538 WBC 12.0* 6.9 RBC 5.15 4.51 HGB 15.7 14.1 HCT 47.4* 41.6 PLT 363 316 BMP: Recent Labs 08/25/19 1600 08/26/19 0538 GLUCOSE 121* 179* NA 134* 140 K 4.2 5.0 BUN 17 20 CREATININE 0.81 0.78 CALCIUM 8.6 8.1* ABGs: No results for input(s): PHART, PO2ART, XDA4UQC, HKS3FXJ, BEART, G5PTMZQE, OGO7ZVB in the last 72 hours. PT/INR: No results found for: PTINR ASSESSMENT / PLAN: Copd exac - steroid, BD Influenza - tamiflu Cough suppressants . * Fuentes Jiang MD - 08/27/2019 11:11 AM EST Progress Note 08/27/2019 11:11 AM Name: Cameron Us Acct: [id number] Room: Day: 1 Admit Date: 08/25/2019 3:06 PM PCP: Najma Ken MD Subjective: C/C: Chief Complaint Patient presents with Shortness of Breath Interval History: Status: not changed. patient still has dyspnea and cough ROS: all 10 systems reviewed and are negative except as noted Review of Systems Constitutional: Negative for appetite change and fatigue. HENT: Negative for congestion, postnasal drip and sore throat. Eyes: Negative for pain and discharge. Respiratory: Positive for cough, shortness of breath and wheezing. Negative for apnea, chest tightness and stridor. Cardiovascular: Negative for chest pain and palpitations. Gastrointestinal: Negative for anal bleeding, diarrhea and rectal pain. Endocrine: Negative for polydipsia and polyphagia. Genitourinary: Negative for decreased urine volume, flank pain and hematuria. Musculoskeletal: Negative for joint swelling and neck stiffness. Skin: Negative for rash. Allergic/Immunologic: Negative for food allergies. Neurological: Negative for seizures, facial asymmetry and speech difficulty. Hematological: Does not bruise/bleed easily. Psychiatric/Behavioral: Negative for dysphoric mood. The patient is not nervous/anxious. Medications: Allergies: No Known Allergies Current Meds: sodium chloride flush 0.9 % injection 10 mL, 2 times per day sodium chloride flush 0.9 % injection 10 mL, PRN potassium chloride (KLOR-CON M) extended release tablet 40 mEq, PRN Or potassium bicarb-citric acid (EFFER-K) effervescent tablet 40 mEq, PRN Or potassium chloride 10 mEq/100 mL IVPB (Peripheral Line), PRN magnesium sulfate 1 g in dextrose 5% 100 mL IVPB, PRN acetaminophen (TYLENOL) tablet 650 mg, Q6H PRN Or acetaminophen (TYLENOL) suppository 650 mg, Q6H PRN polyethylene glycol (GLYCOLAX) packet 17 g, Daily PRN promethazine (PHENERGAN) tablet 12.5 mg, Q6H PRN Or ondansetron (ZOFRAN) injection 4 mg, Q6H PRN oseltamivir (TAMIFLU) capsule 75 mg, BID methylPREDNISolone sodium (SOLU-MEDROL) injection 40 mg, Q8H benzonatate (TESSALON) capsule 100 mg, TID PRN dilTIAZem (CARDIZEM) tablet 60 mg, 4x Daily ipratropium (ATROVENT) 0.02 % nebulizer solution 0.5 mg, 4x daily levalbuterol (XOPENEX) nebulizer solution 1.25 mg, Q8H PRN sodium chloride nebulizer 0.9 % solution 3 mL, Q8H PRN sodium chloride flush 0.9 % injection 10 mL, 2 times per day sodium chloride flush 0.9 % injection 10 mL, PRN acetaminophen (TYLENOL) tablet 650 mg, Q4H PRN apixaban (ELIQUIS) tablet 5 mg, BID budesonide-formoterol (SYMBICORT) 160-4.5 MCG/ACT inhaler 2 puff, BID DULoxetine (CYMBALTA) extended release capsule 20 mg, Nightly levothyroxine (SYNTHROID) tablet 125 mcg, Daily montelukast (SINGULAIR) tablet 10 mg, Nightly therapeutic multivitamin-minerals 1 tablet, Daily sodium chloride (OCEAN, BABY AYR) 0.65 % nasal spray 1 spray, PRN famotidine (PEPCID) tablet 20 mg, BID ipratropium-albuterol (DUONEB) nebulizer solution 1 ampule, Q4H PRN HYDROcodone-homatropine (HYCODAN) 5-1.5 MG/5ML syrup 5 mL, Q4H PRN Data: Code Status: Full Code Family History Problem Relation Age of Onset Cancer Mother Other Father Mult Sclerosis Sister Thyroid Disease Sister Stroke Sister Other Child Heart Attack Child Social History Socioeconomic History Marital status: Spouse name: Not on file Number of children: Not on file Years of education: Not on file Highest education level: Not on file Occupational History Not on file Social Needs Financial resource strain: Not on file Food insecurity Worry: Not on file Inability: Not on file Transportation needs Medical: Not on file Non-medical: Not on file Tobacco Use Smoking status: Former Smoker Packs/day: 1.00 Years: 40.00 Pack years: 40.00 Smokeless tobacco: Never Used Tobacco comment: quit Jul 2019 Substance and Sexual Activity Alcohol use: Yes Alcohol/week: 1.0 standard drinks Types: 1 Cans of beer per week Comment: OCCASIONALLY Drug use: Never Sexual activity: Yes Partners: Male Lifestyle Physical activity Days per week: Not on file Minutes per session: Not on file Stress: Not on file Relationships Social connections Talks on phone: Not on file Gets together: Not on file Attends adventist service: Not on file Active member of club or organization: Not on file Attends meetings of clubs or organizations: Not on file Relationship status: Not on file Intimate partner violence Fear of current or ex partner: Not on file Emotionally abused: Not on file Physically abused: Not on file Forced sexual activity: Not on file Other Topics Concern Not on file Social History Narrative Not on file I/O (24Hr): Intake/Output Summary (Last 24 hours) at 08/27/2019 1111 Last data filed at 08/27/2019 0715 Gross per 24 hour Intake 2833.5 ml Output 800 ml Net 2033.5 ml Radiology: Xr Chest Portable Result Date: 08/25/2019 Unchanged mild cardiomegaly and vascular congestion. Interstitial edema appears slightly improved. Labs: No results found for this or any previous visit (from the past 24 hour(s)). Physical Examination: Vitals: BP (!) 118/59 Pulse 96 Temp 97.9 F (36.6 C) (Oral) Resp 18 Ht 5' 9 (1.753 m) Wt 218 lb 0.6 oz (98.9 kg) SpO2 98% BMI 32.20 kg/m Temp (24hrs), Av.8 F (36.6 C), Min:97.1 F (36.2 C), Max:98.3 F (36.8 C) No results for input(s): POCGLU in the last 72 hours. Physical Exam Vitals signs reviewed. Constitutional: Appearance: She is well-developed. HENT: Head: Normocephalic and atraumatic. Right Ear: External ear normal. Left Ear: External ear normal. Nose: Congestion present. Mouth/Throat: Pharynx: Oropharynx is clear. Eyes: General: Lids are normal. Conjunctiva/sclera: Conjunctivae normal. Neck: Trachea: No tracheal deviation. Cardiovascular: Rate and Rhythm: Normal rate and regular rhythm. Heart sounds: Normal heart sounds, S1 normal and S2 normal. Pulmonary: Effort: Pulmonary effort is normal. No respiratory distress. Breath sounds: Wheezing present. Abdominal: General: Bowel sounds are normal. There is no distension. Palpations: Abdomen is soft. Tenderness: There is no abdominal tenderness. There is no guarding. Musculoskeletal: General: No tenderness or deformity. Lymphadenopathy: Cervical: No cervical adenopathy. Upper Body: Right upper body: No supraclavicular or epitrochlear adenopathy. Left upper body: No supraclavicular or epitrochlear adenopathy. Skin: General: Skin is warm and dry. Capillary Refill: Capillary refill takes less than 2 seconds. Neurological: Mental Status: She is alert. Mental status is at baseline. Motor: No abnormal muscle tone or seizure activity. Psychiatric: Speech: Speech normal. Thought Content: Thought content normal. Assessment: Primary Problem Influenza A Principal Problem: Influenza A Active Problems: Postoperative hypothyroidism COPD with acute exacerbation (HCC) Tachycardia with heart rate 100-120 beats per minute Resolved Problems: * No resolved hospital problems. 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 continue aerosol treatments 2. IV Solu-Medrol 3. PPI 4. DVT Prophylaxis 5. EPCs 6. PT/OT to evaluate and treat 7. check and replace electrolytes per sliding scale * La Lowe RN - 08/26/2019 5:25 PM EST Page out to Dr. Strickland regarding patient's elevated heart rate. New orders received to increase Cardizem dose from 30mg to 60mg four times daily, add Mucinex and tessalon * Forest Childs MD - 08/26/2019 12:44 PM EST PULMONARY PROGRESS NOTE: REASON FOR VISIT: copd exac, influenza Interval History: Shortness of Breath: ++ Cough: +++ Sputum: no Hemoptysis: no Chest Pain: no Fever: no Swelling Feet: no Headache: no Nausea, Emesis, Abdominal Pain: no Diarrhea: no Constipation: no Events since last visit: none PAST MEDICAL HISTORY: Scheduled Meds: oseltamivir 75 mg Oral BID methylPREDNISolone 40 mg Intravenous Q8H sodium chloride flush 10 mL Intravenous 2 times per day apixaban 5 mg Oral BID budesonide-formoterol 2 puff Inhalation BID dilTIAZem 30 mg Oral 4x Daily DULoxetine 20 mg Oral Nightly guaiFENesin 1,200 mg Oral BID ipratropium-albuterol 3 mL Inhalation Q4H WA levothyroxine 125 mcg Oral Daily montelukast 10 mg Oral Nightly therapeutic multivitamin-minerals 1 tablet Oral Daily famotidine 20 mg Oral BID Continuous Infusions: sodium chloride 75 mL/hr at 08/26/19 1525 PRN Meds:sodium chloride flush, acetaminophen, sodium chloride, polyethylene glycol, promethazine OR ondansetron, ipratropium-albuterol, HYDROcodone-homatropine PHYSICAL EXAMINATION: BP (!) 128/54 Pulse 112 Temp 97.5 F (36.4 C) (Oral) Resp 18 Ht 5' 9 (1.753 m) Wt 215 lb (97.5 kg) SpO2 93% BMI 31.75 kg/m General : Awake, alert, Neck supple, no lymphadenopathy, JVD not raised Heart regular rhythm, S1 and S2 normal; no additional sounds heard Lungs Air Entry- fair bilaterally; breath sounds : vesicular; rales/crackles - absent Abdomen soft, no tenderness Upper Extremities - no cyanosis, mottling; edema : absent Lower Extremities: no cyanosis, mottling; edema : absent Current Laboratory, Radiologic, Microbiologic, and Diagnostic studies reviewed Data ReviewCBC: Recent Labs 08/25/19 1600 08/26/19 0538 WBC 12.0* 6.9 RBC 5.15 4.51 HGB 15.7 14.1 HCT 47.4* 41.6 PLT 363 316 BMP: Recent Labs 08/25/19 1600 08/26/19 0538 GLUCOSE 121* 179* NA 134* 140 K 4.2 5.0 BUN 17 20 CREATININE 0.81 0.78 CALCIUM 8.6 8.1* ABGs: No results for input(s): PHART, PO2ART, LRB5XQE, JIP4OWV, BEART, [id number], WNQ3UAA in the last 72 hours. PT/INR: No results found for: PTINR ASSESSMENT / PLAN: Copd exac - steroid, BD Influenza - tamiflu Cough suppressants . * La Lowe RN - 08/26/2019 10:41 AM EST Message out to Dr. Childs for medication orders. New orders received via telephone for Tamiflu 75 mg BID and Solumedrol 40mg Q8 hours. * Dalila Dash RN - 08/25/2019 6:26 PM EST Patient arrived to floor, room 2046 * Amanda Ellison RPH - 08/25/2019 5:34 PM EST Medication History completed: New medications: Spiriva respimat Medications discontinued: prednisone, nicotine patches Changes to dosing: none Stated allergies: NKDA Other pertinent information: Medications confirmed with [facility]. Thank you, Amanda Ellison, PharmD, [facility] [phone] documented in this encounter* Joseph Butterfield [facility] - 10/08/2019 12:13 PM EDT Home Oxygen Evaluation Room air SpO2 at Rest = 91%, HR-100 Room air with exercise/exertion =85%, HR-138 SpO2 on prescribed O2 level at 3 LPM at rest = 96% with exercise/exertion = 88% Nocturnal Oximetry with patient on room air recommended if the resting SpO2 is 89% to 95%. (Requires additional order) * Niall Scanlon MD - 10/07/2019 1:16 PM EDT Progress Note 10/07/2019 4:04 PM Name: Cameron Us Acct: [id number] Room: Day: 1 Admit Date: 10/05/2019 2:31 PM PCP: Caden Baldwin MD Subjective: C/C: No chief complaint on file. Interval History: Status: not changed. Patient states that her shortness of breath has mildly improved. Denies chest pain palpitation or lightheadedness. Recent lab values reviewed with elevated T4 and decreased TSH levels. Vital signs reviewed. ROS: all 10 systems reviewed and are negative except as noted Review of Systems Constitutional: Negative for chills and fatigue. HENT: Negative for drooling, mouth sores, sneezing and trouble swallowing. Eyes: Negative for redness and itching. Respiratory: Positive for cough and shortness of breath. Negative for chest tightness. Cardiovascular: Negative for chest pain, palpitations and leg swelling. Gastrointestinal: Negative for abdominal pain, blood in stool, nausea and vomiting. Endocrine: Negative for heat intolerance and polyphagia. Genitourinary: Negative for difficulty urinating, flank pain and pelvic pain. Musculoskeletal: Negative for arthralgias, joint swelling and neck stiffness. Skin: Negative for color change and pallor. Allergic/Immunologic: Negative for food allergies. Neurological: Negative for dizziness, seizures and headaches. Hematological: Does not bruise/bleed easily. Psychiatric/Behavioral: Negative for agitation, behavioral problems and suicidal ideas. The patientis not hyperactive. Medications: Allergies: No Known Allergies Current Meds: sulfamethoxazole-trimethoprim (BACTRIM DS;SEPTRA DS) 800-160 MG per tablet 1 tablet, 2 times per day albuterol (PROVENTIL) nebulizer solution 2.5 mg, Q6H PRN [START ON 10/08/2019] levothyroxine (SYNTHROID) tablet 100 mcg, Daily predniSONE (DELTASONE) tablet 20 mg, Daily gabapentin (NEURONTIN) capsule 200 mg, TID famotidine (PEPCID) tablet 20 mg, BID acetaminophen (TYLENOL) tablet 650 mg, Q4H PRN ipratropium-albuterol (DUONEB) nebulizer solution 1 ampule, Q4H WA benzonatate (TESSALON) capsule 200 mg, TID apixaban (ELIQUIS) tablet 5 mg, BID budesonide-formoterol (SYMBICORT) 160-4.5 MCG/ACT inhaler 2 puff, BID dilTIAZem (CARDIZEM) tablet 30 mg, 4x Daily DULoxetine (CYMBALTA) extended release capsule 20 mg, Nightly guaiFENesin (MUCINEX) extended release tablet 1,200 mg, BID montelukast (SINGULAIR) tablet 10 mg, Nightly therapeutic multivitamin-minerals 1 tablet, Daily tiotropium (SPIRIVA RESPIMAT) 2.5 MCG/ACT inhaler 2 puff, Daily HYDROcodone-homatropine (HYCODAN) 5-1.5 MG/5ML syrup 5 mL, Q4H Data: Code Status: Full Code Family History Problem Relation Age of Onset Cancer Mother Other Father Mult Sclerosis Sister Thyroid Disease Sister Stroke Sister Other Child Heart Attack Child Social History Socioeconomic History Marital status: Spouse name: Not on file Number of children: Not on file Years of education: Not on file Highest education level: Not on file Occupational History Not on file Social Needs Financial resource strain: Not on file Food insecurity Worry: Not on file Inability: Not on file Transportation needs Medical: Not on file Non-medical: Not on file Tobacco Use Smoking status: Former Smoker Packs/day: 1.00 Years: 40.00 Pack years: 40.00 Smokeless tobacco: Never Used Tobacco comment: quit Jul 2019 Substance and Sexual Activity Alcohol use: Yes Alcohol/week: 1.0 standard drinks Types: 1 Cans of beer per week Comment: OCCASIONALLY Drug use: Never Sexual activity: Yes Partners: Male Lifestyle Physical activity Days per week: Not on file Minutes per session: Not on file Stress: Not on file Relationships Social connections Talks on phone: Not on file Gets together: Not on file Attends adventist service: Not on file Active member of club or organization: Not on file Attends meetings of clubs or organizations: Not on file Relationship status: Not on file Intimate partner violence Fear of current or ex partner: Not on file Emotionally abused: Not on file Physically abused: Not on file Forced sexual activity: Not on file Other Topics Concern Not on file Social History Narrative Not on file I/O (24Hr): Intake/Output Summary (Last 24 hours) at 10/07/2019 1604 Last data filed at 10/07/2019 0615 Gross per 24 hour Intake 400 ml Output 900 ml Net -500 ml Radiology: Xr Chest Portable Result Date: 10/05/2019 Patchy airspace disease representing atelectasis or infiltrate in the right lung base. Follow up toresolution is suggested. Labs: No results found for this or any previous visit (from the past 24 hour(s)). Physical Examination: Vitals: BP (!) 122/56 Pulse 105 Temp 98.1 F (36.7 C) (Oral) Resp 16 Ht 5' 9 (1.753 m) Wt 215 lb 13.3 oz (97.9 kg) SpO2 95% BMI 31.87 kg/m Temp (24hrs), Av.3 F (36.8 C), Min:97.6 F (36.4 C), Max:98.6 F (37 C) No results for input(s): POCGLU in the last 72 hours. Physical Exam Vitals signs reviewed. HENT: Head: Normocephalic. Right Ear: External ear normal. Left Ear: External ear normal. Nose: Nose normal. Mouth/Throat: Mouth: Mucous membranes are moist. Pharynx: Oropharynx is clear. Eyes: Conjunctiva/sclera: Conjunctivae normal. Neck: Musculoskeletal: Normal range of motion and neck supple. Cardiovascular: Rate and Rhythm: Regular rhythm. Tachycardia present. Pulses: Normal pulses. Heart sounds: Normal heart sounds. Comments: Sinus tachycardia in 90s to 100 Pulmonary: Effort: Pulmonary effort is normal. Breath sounds: Normal breath sounds. Abdominal: General: Bowel sounds are normal. Palpations: Abdomen is soft. Musculoskeletal: General: No deformity. Skin: General: Skin is warm. Capillary Refill: Capillary refill takes less than 2 seconds. Coloration: Skin is not jaundiced. Neurological: General: No focal deficit present. Mental Status: She is alert. Mental status is at baseline. Psychiatric: Mood and Affect: Mood normal. Behavior: Behavior normal. Assessment: Primary Problem Acute exacerbation of chronic obstructive pulmonary disease (COPD) (HCC) Principal Problem: Acute exacerbation of chronic obstructive pulmonary disease (COPD) (HCC) Active Problems: Postoperative hypothyroidism Tachycardia with heart rate 100-120 beats per minute COPD exacerbation (HCC) Chronic respiratory failure with hypoxia (HCC) Resolved Problems: * No resolved hospital problems. 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 decrease Synthroid 100 mcg p.o. daily 2. continue Cardizem 30 mg every 6 hr 3. on Bactrim 4. PPI 5. DVT Prophylaxis 6. EPCs 7. PT/OT to evaluate and treat 8. check and replace electrolytes per sliding scale * Forest Childs MD - 10/07/2019 9:40 AM EDT PULMONARY PROGRESS NOTE: Interval History: COPD exac Shortness of Breath: yes Cough: yes Sputum: some Hemoptysis: no Chest Pain: no Fever: no Swelling Feet: no Headache: no Nausea, Emesis, Abdominal Pain: no Diarrhea: no Constipation: no Events since last visit: Had bronch yesterday with minimal thick secretions on right side. Sputum culture= moderate gram positive cocci in pairs, few gram positive rods, and few gram positive cocci in clusters. Reports shortness of breath is about the same PAST MEDICAL HISTORY: Scheduled Meds: gabapentin 100 mg Oral TID famotidine 20 mg Oral BID methylPREDNISolone 40 mg Intravenous Q8H ipratropium-albuterol 1 ampule Inhalation Q4H WA benzonatate 200 mg Oral TID apixaban 5 mg Oral BID budesonide-formoterol 2 puff Inhalation BID dilTIAZem 30 mg Oral 4x Daily DULoxetine 20 mg Oral Nightly guaiFENesin 1,200 mg Oral BID levothyroxine 125 mcg Oral Daily montelukast 10 mg Oral Nightly therapeutic multivitamin-minerals 1 tablet Oral Daily tiotropium 2 puff Inhalation Daily HYDROcodone-homatropine 5 mL Oral Q4H Continuous Infusions: PRN Meds:acetaminophen, albuterol sulfate HFA PHYSICAL EXAMINATION: BP 117/69 Pulse 89 Temp 97.6 F (36.4 C) (Oral) Resp 16 Ht 5' 9 (1.753 m) Wt 215 lb 13.3 oz (97.9 kg) SpO2 96% BMI 31.87 kg/m General : Awake, alert, oriented x 3, harsh cough noted during exam Neck supple, no lymphadenopathy, JVD not raised Heart regular rhythm, S1 and S2 normal; no additional sounds heard Lungs Air Entry- fair bilaterally; breath sounds : expiratory wheezes, rhonchi throughout, 96% on 3L Abdomen soft, no tenderness Upper Extremities - no cyanosis, mottling; edema : absent Lower Extremities: no cyanosis, mottling; edema : absent Current Laboratory, Radiologic, Microbiologic, and Diagnostic studies reviewed Data ReviewCBC: Recent Labs 10/05/19 1510 10/06/19 1338 WBC 8.1 14.4* RBC 4.39 4.41 HGB 13.4 13.5 HCT 40.2 40.9 PLT 407 419 BMP: Recent Labs 10/05/19 1510 10/06/19 1338 GLUCOSE 97 145* NA 140 138 K 4.3 4.1 BUN 18 23 CREATININE 0.72 0.72 CALCIUM 8.8 9.0 ABGs: No results for input(s): PHART, PO2ART, BQN2STM, ZBW6NIW, BEART, X6TOSONS, YRP4XDM in the last 72 hours. PT/INR: No results found for: PTINR ASSESSMENT / PLAN: COPD exac- BD, tessalon, IV steroids Sputum culture- moderate gram positive cocci in pairs, few gram positive rods, and few gram positive cocci in clusters. Bactrim started Bronchoscopy 10/[address] Childs . To po steroids Increase neurontin dose POC for home O2 Possible DC tomorrow REASON FOR VISIT: copd, tracheobronchitis I examined the patient myself The assessment and Plan in the note per my discussion with [employer] [employer]. . * Wendy Parra, RN - 10/07/2019 12:23 AM EDT Pt. Stated my grandson came to the [facility] DrNorma Told him he probubly has cov. 19, he was not tested. Pt. Continued to say they gave him a paper on what to look for. Director Learning Services updated Dr. Childs. No orders given for this pt. * Greta Bonilla RN - 10/06/2019 4:47 PM EDT RN paged and spoke with Dr. Scanlon regarding HR 120-130s. Orders received for IV lopressor to be given now. RN explained that next dose of Cardizem is due at 1700 but last dose was given at 1520. Orders received for hold parameters on the PO Cardizem. * Greta Bonilla RN - 10/06/2019 9:01 AM EDT RN spoke with Dr. Childs via perfect serve to update on patient's current orders for Eliquis and planned bronchoscopy today. states ok for patient to have bronchoscopy. * Bay Goemz - 10/05/2019 6:[address] beauchamp Notified of consult covering for dr baldwin by phone at 6:15pm 10/04 * Greta Bonilla RN - 10/05/2019 2:43 PM EDT Patient arrived to the unit ambulatory from admitting. Vitals obtained. Monitor applied. No disstress noted. O2 en route via nasal cannula per patient's home tank. Changed to bedside nasal cannula. documented in this encounter* Misty Sharp RN - 08/10/2019 6:21 PM EST Pt discharged at this time and pt was educated on discharge paper work and the follow up appointments. The pt refused for the marketing writer to take her down stairs and the pt stated that she wanted to walk down, the was present and he took down her belongings and her oxygen that was delivered * Forest Childs MD - 08/10/2019 4:54 PM EST PULMONARY PROGRESS NOTE: Interval History:cough, COPD exac Shortness of Breath: improved Cough: yes, nonproductive Sputum: no Hemoptysis: no Chest Pain: no Fever: no Swelling Feet: no Headache: no Nausea, Emesis, Abdominal Pain: no Diarrhea: no Constipation: no Events since last visit: Had bronch yesterday- thick mucus plugs noted. Reports feeling a little better today but cough is nonproductive. PAST MEDICAL HISTORY: Scheduled Meds: influenza virus vaccine 0.5 mL Intramuscular Once predniSONE 40 mg Oral Daily guaiFENesin 1,200 mg Oral BID IV infusion builder Intravenous Once dilTIAZem 30 mg Oral 4 times per day sodium chloride flush 10 mL Intravenous 2 times per day ipratropium-albuterol 1 ampule Inhalation Q4H WA apixaban 5 mg Oral BID DULoxetine 20 mg Oral Nightly levothyroxine 125 mcg Oral Daily montelukast 10 mg Oral Nightly therapeutic multivitamin-minerals 1 tablet Oral Daily nicotine 1 patch Transdermal Daily Continuous Infusions: PRN Meds:HYDROcodone-homatropine, sodium chloride, sodium chloride flush, acetaminophen PHYSICAL EXAMINATION: BP (!) 159/81 Pulse 86 Temp 97.2 F (36.2 C) (Oral) Resp 16 Ht 5' 9 (1.753 m) Wt 213 lb 13.5 oz (97 kg) SpO2 94% BMI 31.58 kg/m General : Awake, alert, oriented x3, NAD Neck supple, no lymphadenopathy, JVD not raised Heart regular rhythm, S1 and S2 normal; no additional sounds heard Lungs Air Entry- fair bilaterally; breath sounds : vesicular; rales/crackles - absent Abdomen soft, no tenderness Upper Extremities - no cyanosis, mottling; edema : absent Lower Extremities: no cyanosis, mottling; edema : absent Current Laboratory, Radiologic, Microbiologic, and Diagnostic studies reviewed Data ReviewCBC: Recent Labs 08/08/19 0613 08/09/19 0632 08/10/19 0606 WBC 18.5* 15.9* 13.2* RBC 4.55 4.34 4.46 HGB 14.0 13.5 13.9 HCT 42.1 40.1 41.6 PLT 355 334 326 BMP: Recent Labs 08/08/19 0613 08/09/19 0632 08/10/19 0606 GLUCOSE 154* 140* 162* NA 140 139 140 K 5.1 4.5 4.1 BUN 32* 29* 29* CREATININE 0.75 0.86 0.75 CALCIUM 8.0* 7.6* 7.7* ABGs: No results for input(s): PHART, PO2ART, CPW8SLZ, JPR6HNQ, BEART, [id number], TKE2CEN in the last 72 hours. PT/INR: No results found for: PTINR ASSESSMENT / PLAN: Copd exac - steroid, BD Cough - cough suppressants d/c Bronch 08/08- thick secretions noted, sputum culture= many gram positive rods, few gram positive cocci in clusters Mucinex, Pulmomyze, and Metaneb added Benefits of home O2 d/w patient. Benefits of nebulizer d/w patient . * Misty Sharp RN - 08/10/2019 9:58 AM EST Pt back on unit at this time * Misty Sharp RN - 08/10/2019 9:34 AM EST Pt went down for chest xray at this time * Caden Baldwin MD - 08/09/2019 9:29 PM EST Hospitalist Progress Note 08/09/2019 9:29 PM Subjective: Admit Date: 08/05/2019 PCP: aNjma Ken MD Full Code C/c: Chief Complaint Patient presents with Cough Shortness of Breath Interval History: doing slightly better/better with cough Diet: DIET GENERAL; ip days:4 Medications: Scheduled Meds: influenza virus vaccine 0.5 mL Intramuscular Once guaiFENesin 1,200 mg Oral BID dornase alpha 2.5 mg Inhalation BID IV infusion builder Intravenous Once diltiazem 30 mg Oral 4 times per day sodium chloride flush 10 mL Intravenous 2 times per day methylPREDNISolone 60 mg Intravenous Q6H ipratropium-albuterol 1 ampule Inhalation Q4H WA cefTRIAXone (ROCEPHIN) IV 1 g Intravenous Q24H azithromycin 500 mg Intravenous Q24H apixaban 5 mg Oral BID DULoxetine 20 mg Oral Nightly levothyroxine 125 mcg Oral Daily montelukast 10 mg Oral Nightly therapeutic multivitamin-minerals 1 tablet Oral Daily nicotine 1 patch Transdermal Daily Continuous Infusions: PRN Meds:.HYDROcodone-homatropine, sodium chloride, sodium chloride flush, acetaminophen CBC: Recent Labs 08/07/19 0419 08/08/19 0613 08/09/19 0632 WBC 20.0* 18.5* 15.9* HGB 14.1 14.0 13.5 PLT 367 355 334 BMP: Recent Labs 08/07/19 0419 08/08/19 0613 08/09/19 0632 NA 140 140 139 K 5.1 5.1 4.5 CL 105 106 100 CO2 24 26 28 BUN 26* 32* 29* CREATININE 0.93* 0.75 0.86 GLUCOSE 172* 154* 140* Hepatic: No results for input(s): AST, ALT, ALB, BILITOT, ALKPHOS in the last 72 hours. Troponin: No results for input(s): TROPONINI in the last 72 hours. BNP: No results for input(s): BNP in the last 72 hours. Lipids: No results for input(s): CHOL, HDL in the last 72 hours. Invalid input(s): LDLCALCU INR: No results for input(s): INR in the last 72 hours. Objective: Vitals: BP 127/68 Pulse 73 Temp 98.4 F (36.9 C) (Oral) Resp 18 Ht 5' 9 (1.753 m) Wt 213 lb 13.5 oz (97 kg) SpO2 94% BMI 31.58 kg/m General appearance: alert, appears stated age and cooperative Skin: Skin color, texture, turgor normal. No rashes or lesions Lungs: diminished to auscultation bilaterally Heart: regular rate and rhythm, S1, S2 normal, no murmur, click, rub or gallop Abdomen: soft, non-tender; bowel sounds normal; no masses, no organomegaly Extremities: extremities normal, atraumatic, no cyanosis or edema Neurologic: Mental status: Alert, oriented, thought content appropriate Prophylaxis: DVT with [] lovenox [] heparin [] Scd [x] eliquis Radiology: Xr Chest Portable Result Date: 08/05/2019 EXAMINATION: ONE XRAY VIEW OF THE CHEST 08/05/2019 2:02 pm COMPARISON: None. HISTORY: ORDERING SYSTEM PROVIDED HISTORY: Chest Pain TECHNOLOGIST PROVIDED HISTORY: Chest Pain Reason for Exam: CHEST PAINAcuity: Unknown Type of Exam: Unknown FINDINGS: Mild cardiac silhouette enlargement. Generalized interstitial prominence without consolidation, pneumothorax or evidence for edema. No effusion. No acute osseous abnormality identified. No acute airspace disease identified. Assessment : 1. Ac e copd/aerosol/anibiotics/steroids 2. S/p bronch Plan: 1. Continue present care 2. See order Patient Active Problem List: Carpal tunnel syndrome, unspecified upper limb Trigger finger Postoperative hypothyroidism COPD exacerbation (HCC) Anticipated Disposition upon discharge: [] Home [] Home with Home Health [] Long Term Facility [] [facility] Patient is admitted as inpatient status because of co-morbidities listed above, severity of signs and symptoms as outlined, requirement for current medical therapies and most importantly because of direct risk to patient if care not provided in a hospital setting. Caden Baldwin MD [facility] Hospital[facility] * Jacob Luis RCP - 08/09/2019 3:50 PM EST Home Oxygen Evaluation Room air SpO2 at Rest = 96% Room air with exercise/exertion =87 SpO2 on prescribed O2 level at 2 LPM at rest = 97 with exercise/exertion =95 * Forest Childs MD - 08/09/2019 10:55 AM EST PULMONARY PROGRESS NOTE: Interval History:cough, COPD exac Shortness of Breath: improved Cough: yes, nonproductive Sputum: no Hemoptysis: no Chest Pain: no Fever: no Swelling Feet: no Headache: no Nausea, Emesis, Abdominal Pain: no Diarrhea: no Constipation: no Events since last visit: Had bronch yesterday- thick mucus plugs noted. Reports feeling a little better today but cough is nonproductive. PAST MEDICAL HISTORY: Scheduled Meds: influenza virus vaccine 0.5 mL Intramuscular Once guaiFENesin 1,200 mg Oral BID dornase alpha 2.5 mg Inhalation BID IV infusion builder Intravenous Once diltiazem 30 mg Oral 4 times per day sodium chloride flush 10 mL Intravenous 2 times per day methylPREDNISolone 60 mg Intravenous Q6H ipratropium-albuterol 1 ampule Inhalation Q4H WA cefTRIAXone (ROCEPHIN) IV 1 g Intravenous Q24H azithromycin 500 mg Intravenous Q24H apixaban 5 mg Oral BID DULoxetine 20 mg Oral Nightly levothyroxine 125 mcg Oral Daily montelukast 10 mg Oral Nightly therapeutic multivitamin-minerals 1 tablet Oral Daily nicotine 1 patch Transdermal Daily Continuous Infusions: PRN Meds:HYDROcodone-homatropine, sodium chloride, sodium chloride flush, acetaminophen PHYSICAL EXAMINATION: BP 123/70 Pulse 74 Temp 97.7 F (36.5 C) (Oral) Resp 18 Ht 5' 9 (1.753 m) Wt 213 lb 13.5 oz (97 kg) SpO2 92% BMI 31.58 kg/m General : Awake, alert, oriented x3, NAD Neck supple, no lymphadenopathy, JVD not raised Heart regular rhythm, S1 and S2 normal; no additional sounds heard Lungs Air Entry- fair bilaterally; breath sounds : vesicular; rales/crackles - absent Abdomen soft, no tenderness Upper Extremities - no cyanosis, mottling; edema : absent Lower Extremities: no cyanosis, mottling; edema : absent Current Laboratory, Radiologic, Microbiologic, and Diagnostic studies reviewed Data ReviewCBC: Recent Labs 08/07/19 0419 08/08/19 0613 08/09/19 0632 WBC 20.0* 18.5* 15.9* RBC 4.59 4.55 4.34 HGB 14.1 14.0 13.5 HCT 42.8 42.1 40.1 PLT 367 355 334 BMP: Recent Labs 08/07/19 0419 08/08/19 0613 08/09/19 0632 GLUCOSE 172* 154* 140* NA 140 140 139 K 5.1 5.1 4.5 BUN 26* 32* 29* CREATININE 0.93* 0.75 0.86 CALCIUM 8.1* 8.0* 7.6* ABGs: No results for input(s): PHART, PO2ART, XAY6ZIC, KGN0MRK, BEART, Y3UNYVCB, RHX8RAN in the last 72 hours. PT/INR: No results found for: PTINR ASSESSMENT / PLAN: Copd exac - steroid, BD Cough - cough suppressants d/c Bronch 08/08- thick secretions noted, sputum culture= many gram positive rods, few gram positive cocci in clusters Mucinex, Pulmomyze, and Metaneb added Will need DOLORES workup as outpatient Discussed with Dr. Childs . REASON FOR VISIT: copd exac, cough, mucus plugs I examined the patient myself The assessment and Plan in the note per my discussion with [employer] [employer]. . * Caden Baldwin MD - 08/08/2019 9:10 PM EST Hospitalist Progress Note 08/08/2019 9:10 PM Subjective: Admit Date: 08/05/2019 PCP: Najma Ken MD Full Code C/c: Chief Complaint Patient presents with Cough Shortness of Breath Interval History: still coughing, planning for bronch later today, Diet: DIET GENERAL; ip days:3 Medications: Scheduled Meds: influenza virus vaccine 0.5 mL Intramuscular Once acetaminophen-codeine 1 tablet Oral 4x Daily IV infusion builder Intravenous Once benzonatate 200 mg Oral TID diltiazem 30 mg Oral 4 times per day sodium chloride flush 10 mL Intravenous 2 times per day methylPREDNISolone 60 mg Intravenous Q6H ipratropium-albuterol 1 ampule Inhalation Q4H WA cefTRIAXone (ROCEPHIN) IV 1 g Intravenous Q24H azithromycin 500 mg Intravenous Q24H apixaban 5 mg Oral BID DULoxetine 20 mg Oral Nightly levothyroxine 125 mcg Oral Daily montelukast 10 mg Oral Nightly therapeutic multivitamin-minerals 1 tablet Oral Daily nicotine 1 patch Transdermal Daily Continuous Infusions: PRN Meds:.HYDROcodone-homatropine, sodium chloride, sodium chloride flush, acetaminophen CBC: Recent Labs 08/06/1942208/07/1941808/08/19612 WBC 7.9 20.0* 18.5* HGB 14.5 14.1 14.0 PLT 366 367 355 BMP: Recent Labs 08/06/1942208/07/1941808/08/19612 NA 137 140 140 K 4.1 5.1 5.1 CL 102 105 106 CO2 25 24 26 BUN 21 26* 32* CREATININE 0.75 0.93* 0.75 GLUCOSE 166* 172* 154* Hepatic: No results for input(s): AST, ALT, ALB, BILITOT, ALKPHOS in the last 72 hours. Troponin: No results for input(s): TROPONINI in the last 72 hours. BNP: No results for input(s): BNP in the last 72 hours. Lipids: No results for input(s): CHOL, HDL in the last 72 hours. Invalid input(s): LDLCALCU INR: No results for input(s): INR in the last 72 hours. Objective: Vitals: BP (!) 113/53 Pulse 93 Temp 98.3 F (36.8 C) (Oral) Resp 18 Ht 5' 9 (1.753 m) Wt 213 lb 13.5 oz (97 kg) SpO2 95% BMI 31.58 kg/m General appearance: alert, appears stated age and cooperative Skin: Skin color, texture, turgor normal. No rashes or lesions Lungs: julia wheeze to auscultation bilaterally Heart: regular rate and rhythm, S1, S2 normal, no murmur, click, rub or gallop Abdomen: soft, non-tender; bowel sounds normal; no masses, no organomegaly Extremities: extremities normal, atraumatic, no cyanosis or edema Neurologic: Mental status: Alert, oriented, thought content appropriate Prophylaxis: DVT with [] lovenox [] heparin [] Scd [x] eliquis Radiology: Xr Chest Portable Result Date: 08/05/2019 EXAMINATION: ONE XRAY VIEW OF THE CHEST 08/05/2019 2:02 pm COMPARISON: None. HISTORY: ORDERING SYSTEM PROVIDED HISTORY: Chest Pain TECHNOLOGIST PROVIDED HISTORY: Chest Pain Reason for Exam: CHEST PAINAcuity: Unknown Type of Exam: Unknown FINDINGS: Mild cardiac silhouette enlargement. Generalized interstitial prominence without consolidation, pneumothorax or evidence for edema. No effusion. No acute osseous abnormality identified. No acute airspace disease identified. Assessment : 1. Ac ex copd/aerosol/antibiotics/steroids 2. Tobacco dep Plan: 1. Continue present care 2. For bronch later today Patient Active Problem List: Carpal tunnel syndrome, unspecified upper limb Trigger finger Postoperative hypothyroidism COPD exacerbation (HCC) Anticipated Disposition upon discharge: [] Home [] Home with Home Health [] Long Term Facility [] [facility] Patient is admitted as inpatient status because of co-morbidities listed above, severity of signs and symptoms as outlined, requirement for current medical therapies and most importantly because of direct risk to patient if care not provided in a hospital setting. Caden Baldwin MD [facility] * Cynthia Russell - 08/08/2019 3:40 PM EST Ms. Cameron Us is a 59yowf admitted to [facility] for evaluation of COPD exacerbation. Ms. Us has agreed to participate in the study titled Evaluation of the impact of pharmacist-led interventions on COPD outcomes. The research participant has signed the consent form to participate and is aware of the risks associated. Pharmacy has been consulted to meet with this research participant to discuss COPD, their medications, and provide interventions to improve their COPD management. Additionally, smoking cessation interventions will be offered to those eligible. This research participant is provided care by Dr. Ken to manage their COPD. Research participant contact information: Phone number: Vitals: BP: 127/63 Wt: 97 kg RR: 18 HR: 95 Smoker? No - former (quit ~2 weeks ago) Willing to quit smoking? Yes Vaccination history: Pneumococcal? No Influenza? No Allergies? No COPD medications prior to admission: (name, route, frequency, description of how administered, compliance prior to admission) 1. Albuterol nebulizer soln - inhale the contents of 1 vial every 4 hours as needed for wheezing 2. Albuterol HFA - inhale 2 puffs into the lungs once daily as needed 3. Symbicort 160-4.5 mcg/act - inhale two puffs into the lungs two times a day Research participant reports difficulty obtaining medications due to cost? No Interventions: The following interventions were made for this research participant: 1. General disease state and medication knowledge 2. Smoking cessation - though patient declined need for pharmacologic therapy at this time 3. Consider continuation of ipratropium-albuterol upon discharge with directions to inhale the contents of 1 vial every 4 hours while awake 4. Consider administration of Pneumovax 23 vaccination during admission 5. Consider administration of influenza vaccination during admission Questions: Questions posed by the research participant? 1. Why do I have to rinse out my mouth after using Symbicort? 2. Are there any dietary restrictions with COPD? Follow-up: 1. Research participant agrees to follow-up phone calls 2-3 days and 14-16 days post discharge: Yes Summary: This research participant reports having been diagnosed with COPD for <1 year. This research participant received a total of 5 interventions during this encounter. On admission, the research participant had a CAT score of 22. The total time spent during this encounter was 30 minutes. All questions and concerns of the research participant have been addressed. Will continue to follow this research participant and their discharge date to plan for follow-up phone calls accordingly. Pharmacist phone number provided for further questions or concerns. * Tere Tafoya RN - 08/07/2019 11:57 PM EST All drinks removed from bedside due to NPO status for OR tomorrow. * Forest Childs MD - 08/07/2019 4:14 PM EST PULMONARY PROGRESS NOTE: REASON FOR VISIT: cough, COPD exac Interval History: Shortness of Breath: + Cough: +++, minimally better Sputum: no Hemoptysis: no Chest Pain: no Fever: no Swelling Feet: no Headache: no Nausea, Emesis, Abdominal Pain: no Diarrhea: no Constipation: no Events since last visit: none PAST MEDICAL HISTORY: Scheduled Meds: HYDROcodone 5 mg - acetaminophen 1 tablet Oral 4x Daily IV infusion builder Intravenous Once benzonatate 200 mg Oral TID diltiazem 30 mg Oral 4 times per day acetaminophen-codeine 1 tablet Oral 4x Daily sodium chloride flush 10 mL Intravenous 2 times per day methylPREDNISolone 60 mg Intravenous Q6H ipratropium-albuterol 1 ampule Inhalation Q4H WA cefTRIAXone (ROCEPHIN) IV 1 g Intravenous Q24H azithromycin 500 mg Intravenous Q24H apixaban 5 mg Oral BID DULoxetine 20 mg Oral Nightly levothyroxine 125 mcg Oral Daily montelukast 10 mg Oral Nightly therapeutic multivitamin-minerals 1 tablet Oral Daily nicotine 1 patch Transdermal Daily Continuous Infusions: PRN Meds:sodium chloride, HYDROcodone-homatropine, sodium chloride flush, acetaminophen PHYSICAL EXAMINATION: BP 129/74 Pulse 109 Temp 98 F (36.7 C) (Oral) Resp 16 Ht 5' 9 (1.753 m) Wt 213 lb 13.5 oz (97 kg) SpO2 94% BMI 31.58 kg/m General : Awake, alert, Neck supple, no lymphadenopathy, JVD not raised Heart regular rhythm, S1 and S2 normal; no additional sounds heard Lungs Air Entry- fair bilaterally; breath sounds : vesicular; rales/crackles - absent Abdomen soft, no tenderness Upper Extremities - no cyanosis, mottling; edema : absent Lower Extremities: no cyanosis, mottling; edema : absent Current Laboratory, Radiologic, Microbiologic, and Diagnostic studies reviewed Data ReviewCBC: Recent Labs 08/05/19 1401 08/06/19 0423 08/07/19 0419 WBC 9.2 7.9 20.0* RBC 5.02 4.66 4.59 HGB 15.6 14.5 14.1 HCT 46.8* 43.2 42.8 PLT 396 366 367 BMP: Recent Labs 08/05/19 1401 08/06/19 0423 08/07/19 0419 GLUCOSE 97 166* 172* NA 141 137 140 K 4.5 4.1 5.1 BUN 19 21 26* CREATININE 0.85 0.75 0.93* CALCIUM 8.6 8.2* 8.1* ABGs: No results for input(s): PHART, PO2ART, CPV3OVN, BTV2SSB, BEART, Z3WQBFOA, IFR8KZP in the last 72 hours. PT/INR: No results found for: PTINR ASSESSMENT / PLAN: Copd exac - steroid, BD Cough - cough suppressant / codeine/ tessalon Possible bronch Thursday . * Ana Strickland MD - 08/07/2019 3:39 PM EST [facility] Patient name: Cameron Us Date of admission: 08/05/2019 1:50 PM Date of : 1960 Cc cough HPI Pt admitted with sympts of sob cough HPI 1) Location/Symptom cough sob 2) Timing/Onset: 1 week 3) Context/Setting: smoker with worsening cough since 1 week 4) Quality: thick sputum not able to bring it out 5) Duration: continuous 6) Modifying Factors: smoker 7) Severity: moderate Pt with hx of PE smoker with cough sob worse since 1 week Still cough wheezy sob Past Medical History: Diagnosis Date Fibromyalgia Pulmonary embolism (HCC) 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 She has a 40.00 pack-year smoking history. She has never used smokeless tobacco. She reports current alcohol use of about 1.0 standard drinks of alcohol per week. She reports that she does not use drugs. 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 Respiratory: + cough and shortness of breath. Cardiovascular: Negative for chest pain, palpitations and leg swelling. Gastrointestinal: Negative for abdominal pain, diarrhea and blood in stool. Endocrine: Negative for cold intolerance. Genitourinary: Negative for dysuria and frequency. Musculoskeletal: Negative for back pain and arthralgias. Skin: Negative for color change and rash. Neurological: Negative for dizziness and headaches. Psychiatric/Behavioral: Negative for confusion. ROS Physical exam BP 124/74 Pulse 108 Temp 98.4 F (36.9 C) (Oral) Resp 16 Ht 5' 9 (1.753 m) Wt 213 lb 13.5oz (97 kg) SpO2 90% BMI 31.58 kg/m General appearance: well nourished in no distress Eyes: SREE Head: AT/NC ENT NAD Neck: Trachea midline; supple Lungs: b/l wheezy today CVS sinus with no murmurs. Vasc No JVP, no carotid bruit Abdomen: Soft, non-tender; no masses or HSM, Extremities: no edema; no digital cyanosis or clubbing. Musculoskeletal NO joint effusion or synovitis Skin: No rash or ulcers Neurologic: Cranial nerves II-XII grossly intact; no motor deficit. Psych: Appropriate affect, alert and oriented to person, place and time NO lymphadenopathy Relevant Labs/Imaging CBC: BMP: Recent Labs 08/05/19 1401 08/06/19 0423 NA 141 137 K 4.5 4.1 CL 102 102 CO2 25 25 BUN 19 21 CREATININE 0.85 0.75 GLUCOSE 97 166* Assessment / Plan Patient Active Problem List Diagnosis Carpal tunnel syndrome, unspecified upper limb Trigger finger Postoperative hypothyroidism COPD exacerbation (HCC) A/P Pt with hx of PE smoker with cough sob worse since 1 week rx like copd exacerbation Iv steroids bronchodilation add mucinex pulm consult noted bronch Thursday likely Ana Strickland MD [facility] [id number] [id number] [phone] * Laura Mathis RN - 08/07/2019 3:15 PM EST Pt. Arrived to room 2045. Vitals obtained. Assessment Completed. Pt. Denies any needs at this time.Will Continue to monitor. * Reina Smith RN - 08/07/2019 3:00 PM EST I agree with the charting of Shellie HALL * Analia James [facility] - 08/06/2019 9:25 PM EST Spoke with Dr. Childs and informed him that Codeine and Tylenol #3 are nonformulary and unavailable at [facility] and [facility] suggested Phenergan with codeine. He is very insistent that we try to obtain some, he used it at [place] last month. Per [facility], [facility] appears to have Tylenol #3 still in stock. Called and spoke with pharmacist at [facility], she will call her cost estimating manager or media planner / buyer and find out if she can share with us, will call us back this evening. Awaiting call back. Analia James,PharmD, 08/06/2019, 9:28 PM * Tere Tafoya RN - 08/06/2019 8:45 PM EST Return call received from Dr Childs. He doesn't want Phenergan with codeine due to patient being on Hycodan. Wants to see if pharmacy can get in Codeine tablets. [employer] Services talked with pharmacy and was informed there is no codeine except the one with phenergan. Pharmacist Stated she would try to get a hold of Dr Childs herself. Will continue to monitor situation. * Tere Tafoya RN - 08/06/2019 8:16 PM EST Page out to Dr Childs to see if order can be placed for Phenergan with codeine being pharmacy doesn'tcarry the codeine tablet he ordered.Awaiting return page * Tere Tafoya RN - 08/06/2019 7:00 PM EST Telemetry batteries changed with shift report * Linnette Patel RN - 08/06/2019 5:[address] Em abbott at bedside. Updated on recent vitals and urine output. New orders received. Will continue to monitor. * Linnette Patel RN - 08/06/2019 2:[address] Strickland notified of recent vital signs. New orders received. ON * Linnette Patel RN - 08/06/2019 10:[address] Strickland on patients vitals. New orders for 1000 bolus. * Linnette Patel RN - 08/06/2019 9:06 AM EST New orders for hycodan per Dr. Childs * Linnette Patel RN - 08/06/2019 9:00 AM EST New orders for cardizem per Dr. Strickland * Linnette Patel RN - 08/06/2019 8:[address] Strickland paged for tachycardia. Awaiting call back. * Amanda Ellison RPH - 08/05/2019 5:01 PM EST Medication History completed: New medications: none Medications discontinued: magnesium Changes to dosing: Duloxetine changes to nightly dosing Stated allergies: NKDA Other pertinent information: Medications confirmed with [facility]. Thank you, Amanda Ellison PharmD, [facility] [phone] * Jacob Luis [facility] - 08/05/2019 2:11 PM EST Breath Sounds: wheezing RR:: 22 Pulse Sat: 98% on room air Home Meds: Aerosol and MDI Albuterol as needed. Bronchodilator assessment at level: 3[] Home Level BRONCHODILATOR ASSESSMENT SCORE Score 0 1 2 3 4 5 Breath Sounds [] Patient Baseline [] No Wheeze good aeration [] Faint, scattered wheezing, good aeration [x] Expiratory Wheezing and or moderately diminished [] Insp/Exp wheeze and/or very diminished [] Insp/Exp and/ or marked distress Respiratory Rate [] Patient Baseline [] Less than 20 [] Less than 20 [x] 20-25 [] Greater than 25 [] Greater than 25 Peak flow % of Pred or PB [x] NA [] Greater than 90% [] 81-90% [] 71-80% [] Less than or equal to 70% or unable to perform [] Unable due to Respiratory Distress Dyspnea re [] Patient Baseline [] No SOB [] No SOB [] SOB on exertion [x] SOB min activity [] At rest/acute e FEV% Predicted [x] NA [] Above 69% [] Unable [] Above 60-69% [] Unable [] Above 50-59% [] Unable [] Above 35-49% [] Unable [] Less than 35% [] Unable documented in this encounter Assessments Diagnosis COPD exacerbation (HCC) Obstructive chronic bronchitis with exacerbation Influenza with respiratory manifestation other than pneumonia Influenza with other respiratory manifestations COPD with acute exacerbation (HCC) Obstructive chronic bronchitis with exacerbation Influenza A Influenza with other respiratory manifestations Postoperative hypothyroidism Postsurgical hypothyroidism Tachycardia with heart rate 100-120 beats per minute Acute exacerbation of chronic obstructive pulmonary disease (COPD) (HCC) Obstructive chronic bronchitis with exacerbation Diagnosis Cough Abnormal CXR Other nonspecific abnormal finding of lung field Viral URI Acute upper respiratory infections of unspecified site Diagnosis Osteoarthritis of right acromioclavicular joint Diagnosis Dizziness Dizziness and giddiness Polydipsia Diagnosis Encounter for screening for diabetes mellitus Screening for diabetes mellitus Screening for hyperlipidemia Screening for lipoid disorders Diagnosis COPD exacerbation (HCC) Obstructive chronic bronchitis with exacerbation Acute respiratory failure with hypoxia (HCC) Acute respiratory failure Acute exacerbation of chronic obstructive pulmonary disease (COPD) (HCC) Obstructive chronic bronchitis with exacerbation Postoperative hypothyroidism Postsurgical hypothyroidism Tachycardia with heart rate 100-120 beats per minute Chronic respiratory failure with hypoxia (HCC) Chronic respiratory failure Diagnosis COPD exacerbation (HCC)- Primary Obstructive chronic bronchitis with exacerbation Cough Moderate persistent asthma with acute exacerbation Diagnosis COPD exacerbation (HCC) Obstructive chronic bronchitis with exacerbation Advance Directives No Advanced Directives Records FoundDocuments on File Type Date Recorded Patient Hot Roller Expl anation Advance Directives and Living Will Power of Land Leasing Examiner Latest Code Status on File Code Status Date Activated Date Inactivated Comments Full Code 08/27/2019 11:11 AM Full Code 08/25/2019 6:05 PM 08/27/2019 11:11 AM Full Code 08/25/2019 5:50 PM 08/25/2019 6:05 PM Full Code 08/05/2019 4:58 PM 08/10/2019 8:24 PM Latest Code Status on File Code Status Date Activated Date Inactivated Comments Full Code 08/27/2019 11:11 AM 08/29/2019 9:40 PM Documents on File Type Date Recorded Patient Hot Roller Expl anation ACP-Advance Directive ACP-Power of Land Leasing Examiner Latest Code Status on File Code Status Date Activated Date Inactivated Comments Full Code 10/05/2019 2:43 PM 10/08/2019 2:49 PM Full Code 08/27/2019 11:11 AM 08/29/2019 9:40 PM Full Code 08/25/2019 6:05 PM 08/27/2019 11:11 AM Full Code 08/25/2019 5:50 PM 08/25/2019 6:05 PM Full Code 08/05/2019 4:58 PM 08/10/2019 8:24 PM Documents on File Type Date Recorded Patient Hot Roller Expl anation ACP-Advance Directive ACP-Power of Land Leasing Examiner Latest Code Status on File Code Status Date Activated Date Inactivated Comments Full Code 10/05/2019 2:43 PM 10/08/2019 2:49 PM Full Code 08/27/2019 11:11 AM 08/29/2019 9:40 PM Documents on File Type Date Recorded Patient Hot Roller Expl anation Advance Directives and Living Will Power of Land Leasing Examiner Latest Code Status on File Code Status Date Activated Date Inactivated Comments Full Code 10/05/2019 2:43 PM Latest Code Status on File Code Status Date Activated Date Inactivated Comments Full Code 08/05/2019 4:58 PM Latest Code Status on File Code Status Date Activated Date Inactivated Comments Full Code 12/26/2021 6:09 PM 12/29/2021 3:22 PM Code Status History Code Status Date Activated Date Inactivated Comments Full Code 09/26/2021 1:46 PM 09/27/2021 12:14 PM Latest Code Status on File Code Status Date Activated Date Inactivated Comments Full Code 12/26/2021 6:09 PM 12/29/2021 3:22 PM Code Status History Code Status Date Activated Date Inactivated Comments Full Code 09/26/2021 1:46 PM 09/27/2021 12:14 PM Discharge Instructions * Attachments The following attachments cannot be sent through Care Everywhere. * Cough (Bhutanese) * URI (Upper Respiratory Infection): Viral (Bhutanese) * Coronavirus Disease COVID-19: Isolation (Bhutanese) documented in this encounter* Instructions* Misty Sharp RN - 08/10/2019 Your information: Name: Cameron Us : 1960 The following personal items were collected during your admission and were returned to you: Valuables Dentures: None Vision - Corrective Lenses: None Hearing Aid: None Jewelry: Bracelet, Ring(3 rings and bracelet in glasscase hanging on IV cart) Body Piercings Removed: Yes Clothing: Other (Comment)(hospital gown on) Were All Patient Medications Collected?: Not Applicable Other Valuables: None Valuables Given To: Patient Provide Name(s) of Who Valuable(s) Were Given To: patient Responsible person(s) in the waiting room?: no one here now, Duong may arrive Patient approves for provider to speak to responsible person post operatively: Yes(Duong if here) Information obtained by: By signing below, I understand that if any problems occur once I leave the hospital I am to contactprimary care provider . I understand and acknowledge receipt of the instructions indicated above. * Attachments The following attachments cannot be sent through Care Everywhere. * COPD Exacerbation Plan (Bhutanese) * COPD (Bhutanese) * Smoking Cessation: Health Benefits: General Info (Bhutanese) documented in this encounter* Instructions* Warren Olivas DO - 11/02/2019 Please take all medications as prescribed. Please follow up with your primary care physician (PCP) by calling tomorrow for the next available appointment. If you do not have a PCP please establish care by calling the clinic or a physician listed below. Please return to emergency department sooner if you develop any worsening symptoms, uncontrolled fevers, uncontrolled vomiting, or any other concerns. * Attachments The following attachments cannot be sent through Care Everywhere. * COPD: General Info (Bhutanese) documented in this encounter Reason for Referral Status Reason Specialty Diagnoses / Procedures Re ferred By Contact Referred To Contact Closed Radiology Diagnoses Osteoarthritis of right acromioclavicular joint Procedures MRI SHOULDER RIGHT WO CONTRAST Cora, Enesi O, MD [address] [place] [address] Summary Purpose Family History No Family History Records FoundNo Family History Records FoundNo Family History Records FoundNo Family History Records FoundNo Family History Records Found Additional Source Comments Reason for Visit (unrecogniz ed section and content) Reason Comments Shortness of Breath Status Reason Specialty Diagnoses / Procedures Referre d By Contact Referred To Contact Diagnoses Influenza A Influenza A Caden Baldwin MD [address] [place] [address] [facility] [employer] Reason Comments Cough Status Reason Specialty Diagnoses / Procedures Re ferred By Contact Referred To Contact Closed Radiology Diagnoses Osteoarthritis of right acromioclavicular joint Procedures MRI SHOULDER RIGHT WO CONTRAST Mao Shepherd MD [address] [facility] [address] [place] [id number] Status Reason Specialty Diagnoses / Procedures Referre d By Contact Referred To Contact Diagnoses chronic obstructive pulmonary disease Forest Childs MD [address] [facility] [address] [facility] Reason Comments Cough Shortness of Breath Status Reason Specialty Diagnoses / Procedures Referre d By Contact Referred To Contact Diagnoses COPD exacerbation (HCC) Caden Baldwin MD [address] [place] [address] [facility] [employer] Reason Comments Cough Shortness of Breath Chills Emesis Reason Comments Shortness of Breath Cough Fatigue Headache Reason Comments Med Refill Reason Comments discuss pain. back down to h ip and up to the neck. Would like also a referral to emt/dispatcher. Chief complaint tired all the time INFORMATION SOURCE (unrecogn ized section and content) DATE CREATED AUTHOR 04/17/2020 [facility] DATE CREATED AUTHOR AUTHOR'S ORGANIZ ATION 11/23/2020 [facility] DATE CREATED AUTHOR AUTHOR'S ORGANIZ ATION 09/21/2021 [facility] DATE CREATED AUTHOR AUTHOR'S ORGANIZ ATION 12/20/2021 [facility] DATE CREATED AUTHOR AUTHOR'S ORGANIZ ATION 08/03/2023 [facility] Ordered Prescriptions (unrec ognized section and content) Prescription Sig Dispensed Refills Start Date End Da te predniSONE (DELTASONE) 20 MG tablet Take 2 tablets by mouth daily for 5 days 10 tablet 0 11/22/2020 11/27/2020 Scheduled Active and Recently Administ ered Medications (unrecognized section and content) Medication Order 11/20/2020 11/21/2020 11/22/2020 methylPREDNISolone sodium (SOLU-MEDROL) injection 125 mg (COMPLETED) 125 mg, Intravenous, ONCE, On Rosmery 11/22/20 at 1230, For 1 dose 1225 (Given - Provid er: Arlette Kelley RN) PRN Medication Order 11/20/2020 11/21/2020 11/22/2020 ipratropium-albuterol (DUONEB) nebulizer solution 1 ampule 1 ampule, Inhalation, EVERY 20 MIN PRN, Shortness of Breath, Starting on Rosmery 11/22/20 at 1229 1240 (Given - Provid er: Jacob Luis RCP) Care Teams (unrecognized sec tion and content) Rn Otolaryngology Relationship Specialty Start Date End Date Louie Paul DO [address] [place] [address] PCP - General Family Medicine 09/27/21 Rn Otolaryngology Relationship Specialty Start Date End Date Louie Paul DO [address] [place] [address] PCP - General Family Medicine 09/27/21 Rn Otolaryngology Relationship Specialty Start Date End Date Louie Paul DO [address] [place] [address] PCP - General Family Medicine 09/27/21 FOR RECORDS PERTAINING TO PATIENTS WHO ARE OR HAVE BEEN ENROLLED IN A CHEMICAL DEPENDENCY/SUBSTANCEABUSE PROGRAM, SOME INFORMATION MAY BE OMITTED. This clinical summary was aggregated from multiple sources. Caution should be exercised in using it in the provision of clinical care. This summary normalizes information from multiple sources, and as a consequence, information in this document may materially change the coding, format and clinical context of patient data. In addition, data may be omitted in some cases. CLINICAL DECISIONS SHOULD BE BASED ON THE PRIMARY CLINICAL RECORDS. [facility] [employer] [facility]. provides no warranty or guarantee of the accuracy or completeness of information in this document.
--- NOTE | 2023-08-03 14:52 | P.CN_ITS ---
Consult Note: HPI Data of Consult Patient: new to practice Consult date: 08/03/23 Requesting Physician: Belle Monet MD Primary Care Provider: HE PAUL Consult Narrative Reason for consult: low back pain Narrative: 63yof who presents for evaluation. worsening axial low back pain for several years. imaging reviewed, which shows moderate facet arthropathy in lower lumbar spine. continues in >6 weeks of provider directed home exercise program, with no benefit. uses tylenol as needed, without benefit. cannot take nsaids due to eliquis. denies adverse med side effects. cc:: CC: Belle Monet MD Review of Systems ROS Status of ROS 10 or more systems reviewed and unremark able except as noted in history and below Meds Home Medications and Allergies Home Medications Medication Instructions Recorded Confirmed Type albuterol sulfate 0.63 mg/3 mL 0.63 mg inhalation TID PRN 08/03/23 08/03/23 History solution for nebulization shortness of breath or wheezing apixaban 5 mg tablet (Eliquis) 5 mg PO BID 08/03/23 08/03/23 History budesonide 160 mcg-glycopyr 9 2 inh inhalation BID 08/03/23 08/03/23 History mcg-formot 4.8 mcg/actuation HFA inhaler (Breztri Aerosphere) diltiazem HCl 120 mg capsule,24 120 mg PO DAILY 08/03/23 08/03/23 History hr,extended release duloxetine 20 mg capsule,delayed 20 mg PO DAILY 08/03/23 08/03/23 History release levothyroxine 125 mcg capsule 125 mcg PO DAILY 08/03/23 08/03/23 History Allergies Allergy/AdvReac Type Severity Reaction Status Date / Time No Known Drug Allergies Allergy Verified 08/03/23 14:47 Exam Narrative Exam Narrative: Psych-alert and oriented x 3. Attentive and appropriate, constitutionally normal, displays normal mood and affect per situation.? There are no obvious deficits in memory, reasoning, or intellect.? Skin-no obvious rashes, bruising, erythema noted to the patient's area of pain. Extremities- extremities are warm with minimal edema and palpable pulses. Lumbar-no significant tenderness to palpation noted in the lumbar spine and paraspinal musculature.? Pain is elicited with extension, and lateral rotation of the lumbar spine. Range of motion is slightly diminished with these motions due to pain. Facet loading maneuvers are positive bilaterally and do appear to be concordant with the patient's normal complaints of pain.? Coordination remains intact.? Gait remains non-antalgic. Assessment and Plan Assessment and Plan (1) Lumbar spondylosis: Plan 63yof who presents for evaluation. failed conservative measures, as noted. imaging reviewed, as noted. given symptoms and imaging, prudent to attempt diagnostic bilateral l4-5, l5-s1 medial branch block under fluoroscopic guidance with intention of proceeding to radiofrequency ablation. she is in agreement. meds reviewed. will trial flexeril 10mg bid prn. follow up after procedure.
== END 2023-08-03 13:27 | disposition home or self-care (01) ==
LOC: PM 13:26
PROVIDERS: PCP Family Medicine; Visit Provider Anesthesiology
DX: M47.816 Spondylosis without myelopathy or radiculopathy, lumbar region (principal)
CPT/HCPCS: G0463

== ENCOUNTER 2023-08-10 08:09 | Day surgery (SDC) | payer BC, SELFPAY ==
--- OUTSIDE RECORDS SUMMARY | 2023-08-10 08:11 | XMS_ITS | CCD ---
Author Name Unknown Address [address] [place] [address] Organization [facility] Care Team Providers Care Wire Spring Relay Adjuster Name Role Phone Najma Ken Primary Care Provider Caden Baldwin Primary Care Provider [phone] Caden Baldwin Primary Care Provider NAJMA KEN Referring Unavailabl NAJMA Foster Primary Care Unavailabl e NAJMA KEN Referring Unavailabl e CADEN BALDWIN Primary Care Unavailabl e Caden Baldwin Primary Care Provider Caden Baldwin MD Primary Care Provider NAJMA KEN Referring Unavailabl e CADEN BALDWIN Primary Care Unavailabl e MAO SHEPHERD Referring Unavailable CADEN BALDWIN Primary Care Unavailabl [...] BEVERLY, DR LOUIE Hawkins Primary Care Unavailable MISC, DR IBRAHIM Attending Unavailable MISC, DR IBRAHIM Consulting Unavailable ZIEBER, DR BARRON Strauss Consulting Unavailable TIMMIS, DR LARA Admitting Unavailable FURABHI, DR LOUIE Hawkins Primary Care Unavailable TIMMIAshley, DR LARA Attending Unavailable TIMMIS, DR LARA Consulting Unavailable JESSICAEBMICHELLE, DR BARRON Strauss Consulting Unavailable MOHINDER VERA Consulting Unavailable MORTEZALOISIDORO, DR LOUIE Hawkins Primary Care Unavailable JAZMINE DODD Admitting Unavailable KHURRAM FULTON Consulting Unavailable JAZMINE DODD Attending Unavailable Gypsy Muñoz Consulting Unavailable Louie Paul DO Primary Care Provider LOUIE PAUL Attending Unavailable LOUIE PAUL Referring Unavailable LOUIE PAUL Primary Care Unavailable Tierney CARDENAS, [place] Attending Unavailable Allergies Allergy Classification Reported Allergen(s) Allergy Type Date of Onset Reaction(s) Facility Calcium Channel Blockers (1 source) dilTIAZem Drug Allergy 10-12-2019 Itching, Swelling, Rash [facility] (3 sources) dilTIAZem Drug Allergy 10-12-2019 Itching, Swelling, Rash [facility]- [place], [place] Medications Current Medications Medication Drug Class(es) [...] greater than 100.5 F (38 C), Starting Rosmery 08/25/19 at 1749 Maximum dose of acetaminophen [...] solution Indications: Chronic respiratory failure with hypoxia [place] Inhale 3 mL (2.5 mg total) by nebulization every 6 (six) hours as needed for wheezing. 75 mL 2 05/11/2023 Active Start: 09-27-2021 take 2 puff(s) by in halation four times daily albuterol (PROVENTIL HFA;VENTOLIN HFA) 90 mcg/actuation inhaler Indications: Acute exacerbation of chronic obstructive pulmonary disease (COPD) ([facility] Inhale 2 puffs 4 (four) times a [...] tablet (15 sources) Factor Xa Inhibitor Start: 3 take 1 tablet by mouth twice daily [...] take 2 puff(s) by inhalation at bedtime xsvcsamgbe-ikykauud-paj moterol (BREZTRI AEROSPHERE) 160-9-4.8 mcg/actuation HFA aerosol inhaler Indications: Acute exacerbation of chronic obstructive pulmonary disease (COPD) ([facility] INHALE 2 PUFFS IN THE MORNING AND AT BEDTIME 10.7 g 0 07/19/2023 Active Start: 03-31-2023 End: 07-19-2023 take 2 puff(s) by inhalation at bedtime mvrnrfclcq-hzmvlesc-mvvbbarcez (BREZTRI AEROSPHERE) 160-9-4.8 mcg/actuation HFA aerosol inhaler Indications: Acute exacerbation of chronic obstructive pulmonary disease (COPD) ([facility] Inhale 2 puffs in the morning and [...] 24 hr capsule Indications: Paroxysmal atrial fibrillation ([facility]) Take 1 capsule (120 mg total) by mouth in the morning. 90 capsule 1 05/11/2023 Active Start: 10-08-2020 take 1 capsule by mo ut once daily dilTIAZem (CARDIZEM CD) 120 MG extended release capsule TAKE 1 CAPSULE BY MOUTH EVERY DAY 90 capsule 0 10/08/2020 Active Start: 04-12-2020 take 1 capsule by mo ut once daily dilTIAZem (CARDIZEM CD) 120 MG extended release capsule Take 1 capsule by mouth daily 30 capsule 2 04/12/2020 Active Start: 11-28-2019 [facility] dilTIAZem (CARDIZEM) 30 MG [...] Start: 11-09-2020 take 1 capsule by mo ut once daily DULoxetine (CYMBALTA) 20 MG extended release capsule TAKE 1 CAPSULE BY MOUTH EVERY DAY AT NIGHT 90 capsule 0 11/09/2020 Active Start: 02-21-2020 take 1 capsule by mo ut once daily DULoxetine (CYMBALTA) 20 MG extended [...] Oral, 3 TIMES DAILY, First dose on Thu10/06/19 at 1400 12 hr guaiFENesin 600 mg extended release oral tablet (8 sources) Start: 10-05-2019 take 1200 mg by mouth twice daily 1,200 mg, Oral, 2 TIMES DAILY, First dose on 10/05/19 at 2100 Do not crush or break. Start: 08-25-2019 End: 08-26-2019 take 1200 mg by mouth twice daily 1,200 mg, Oral, 2 TIMES DAILY, First dose on Rosmery 08/25/19 at 2100 Do not crush or break. 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 CURRENT DRUG THERAPY] Onset: 07-04-2021 Episodic Other aftercare (1 source) intermediate manager (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) use of anticoagulants; Translations: [PIPE FITTINGS MOLDER CURRNT USE ANTICOAGULANTS] Onset: 07-04-2021 Episodic Other [...] Views Ordered By: Edilma Cuevas on 07-30-2023 [facility] Radiology Study observation (narrative) [facility] CT NECK [facility] W [place] CT [...] BARRON TATUM Date: 2021-10-04 09:24 Normal [facility] COMPREHENSIVE METABOLIC PANE Deven 09-19-2021 Albumin [Mass/Vol] 3.9 g/dL Normal 3.6-5.1 [facility] Comment on above: Performed By: #### 7 600, 24522, 79800 #### [facility] of [address], [address] [place] [address] Process Improvement Analyst: Chalino Levy MD Albumin/Globulin [Mass ratio] 1.3 {ratio} Normal 1.0-2.5 [facility] Comment on above: Performed By: #### 7 600, 32027, 74778 #### [facility] of [address], [address] [place] [address] Process Improvement Analyst: Chalino Levy MD ALP [Catalytic activity/Vol] 71 U/L Normal 37-153 [facility] Comment on above: Performed By: #### 7 600, 43096, 53731 #### [facility] of [address], [address] [place] [address] Process Improvement Analyst: Chalino Levy MD ALT [Catalytic activity/Vol] 9 U/L Normal 6-29 [facility] Comment on above: Performed By: #### 7 600, 10877, 66143 #### [facility] of [address], [address] [place] [address] Process Improvement Analyst: Chalino Levy MD AST [Catalytic activity/Vol] 10 U/L Normal 10-35 [facility] Comment on above: Performed By: #### 7 600, 47138, 61741 #### [facility] of [address], [address] [place] [address] Process Improvement Analyst: Chalino Levy MD Bilirubin [Mass/Vol] 0.6 mg/dL Normal 0.2-1.2 [facility] Comment on above: Performed By: #### 7 600, 60136, 06519 #### [facility] of [place] [address] Process Improvement Analyst: Chalino Levy MD BUN/CREATININE RATIO NOT APPLICABLE Normal 6-22 [facility] Comment on above: Performed By: #### 7 600, 85560, 63171 #### [facility] of [address], [address] [place], [place] [address] Process Improvement Analyst: Chalino Levy MD Calcium [Mass/Vol] 9.0 mg/dL Normal 8.6-10.4 [facility] Comment on above: Performed By: #### 7 600, 20500, 49305 #### [facility] [address], [address] [place] [address] Process Improvement Analyst: Chalino Levy MD Chloride [Moles/Vol] 103 mmol/L Normal 98-110 [facility] Comment on above: Performed By: #### 7 600, 93240, 40889 #### [facility] [address], [address] [place] [address] Process Improvement Analyst: Chalino Levy MD CO2 [Moles/Vol] 31 mmol/L Normal 20-32 [facility] Comment on above: Performed By: #### 7 600, 87042, 80170 #### [facility] [address], [address] [place] [address] Process Improvement Analyst: Chalino Levy MD Creatinine [Mass/Vol] 0.79 mg/dL Normal 0.50-0.99 [facility] Comment on above: Result Comment: For patients >49 years of age, the reference limit for Creatinine is approximately 13% higher for people identified as -Syrian. Performed By: #### 7 600, 38872, 36493 #### [facility] [address], [address] [place] [address] Process Improvement Analyst: Chalino Levy MD eGFR NON-AFR. ZIMBABWEAN 80 mL/min/1.73m2 Normal > OR = 60 [facility] Comment on above: Performed By: #### 7 600, 75437, 07124 #### [facility] [address], [address] [place] [address] Process Improvement Analyst: Chalino Levy MD GFR/1.73 sq M.predicted among blacks MDRD (S/P/Bld) [Vol rate/Area] 93 mL/min/{1.73_m2} Normal > OR = 60 [facility] Comment on above: Performed By: #### 7 600, 70667, 30093 #### [facility] [place] [address] Process Improvement Analyst: hCalino Levy MD Globulin (S) [Mass/Vol] 3.0 g/dL Normal 1.9-3.7 [facility] Comment on above: Performed By: #### 7 600, 85414, 58818 #### [facility] [place] [address] Process Improvement Analyst: Chalino Levy MD Glucose [Mass/Vol] 105 mg/dL High 65-99 [facility] Comment on above: Result Comment: Fasting reference interval For someone without known diabetes, a glucose value between 100 and 125 mg/dL is consistent with prediabetes and should be confirmed with a follow-up test. Performed By: #### 7 600, 45188, 53247 #### [facility] [place] [address] Process Improvement Analyst: Chalino Levy MD Potassium [Moles/Vol] 4.3 mmol/L Normal 3.5-5.[address] [facility] Comment on above: Performed By: #### 7 600, 19714, 67828 #### [facility] [place] [address] Process Improvement Analyst: Chalino Levy MD Protein [Mass/Vol] 6.9 g/dL Normal 6.1-8.1 [facility] Comment on above: Performed By: #### 7 600, 99355, 52756 #### [facility] [place] [address] Process Improvement Analyst: Chalino Levy MD Sodium [Moles/Vol] 140 mmol/L Normal 135-146 [facility] Comment on above: Performed By: #### 7 600, 79798, 40743 #### [facility] [place] [address] Process Improvement Analyst: Chalino Levy MD Urea nitrogen [Mass/Vol] 23 mg/dL Normal 7-25 [facility] Comment on above: Performed By: #### 7 600, 68083, 67279 #### [facility] [address], [address] [place] [address] Process Improvement Analyst: Chalino Levy MD LIPID PANEL, [facility] 03-3 Cholesterol [Mass/Vol] 276 mg/dL High <200 [facility] Comment on above: Order Comment: FASTI NG:YES FASTING: YES Performed By: #### 7 600, 61231, 52856 #### [facility] [address], [address] [place] [address] Process Improvement Analyst: Chalino Levy MD Cholesterol in HDL [Mass/Vol] 48 mg/dL Low > OR = 50 [facility] Comment on above: Order Comment: FASTI NG:YES FASTING: YES Performed By: #### 7 600, 50322, 77962 #### [facility] [address], [address] [place] [address] Process Improvement Analyst: Chalino Levy MD Cholesterol in LDL [Mass/Vol] [...] Jose Roberto BOTELLO et al. EDGARDO. 2013;310(19): 0122-1364 (http://education.[place] [place].Ourpalm/faq/NYA675) Performed By: #### 7 600, 04280, 21128 #### [facility] [address], [address] [place] [address] Process Improvement Analyst: Chalino Levy MD Cholesterol.total/Chol esterol in HDL [Mass ratio] 5.8 {ratio} High <5.0 [facility] Comment on above: Order Comment: FASTI NG:YES FASTING: YES Performed By: #### 7 600, 71141, 66662 #### [facility] [place] [address] Process Improvement Analyst: Chalino Levy MD NON HDL CHOLESTEROL 228 [...] therapeutic option. Performed By: #### 7 600, 62817, 42131 #### [facility] [address], [address] [place] [address] Process Improvement Analyst: Chalino Levy MD Triglyceride [Mass/Vol] 212 mg/dL High <150 [facility] Comment on above: Order Comment: FASTI NG:YES FASTING: YES Result Comment: If a non-fasting specimen was collected, consider repeat triglyceride testing on a fasting specimen if clinically indicated. Levy et al. J. of Clin. Lipidol. 2015;9:129-169. Performed By: #### 7 600, 45606, 63165 #### [facility] [place] [address] Process Improvement Analyst: Chalino Levy MD TSH+FREE T4on 09-19-2021 Free T4 [Mass/Vol] 1.4 ng/dL Normal 0.8-1.8 [facility] Comment on above: Performed By: #### 7 600, 33866, 42766 #### [facility] [place] [address] Process Improvement Analyst: Chalino Levy MD TSH Qn 2.51 m[IU]/L Normal 0.40-4.50 [facility] Comment on above: Performed By: #### 7 600, 66755, 44767 #### [facility] [place] [address] Process Improvement Analyst: Chalino Levy MD XR CHEST 2 Von [...] BARRON TATUM Date: 2021-09-12 16:03 Normal [facility] US ST HEAD_NECKon 08-25-[address] HEAD_NECK EXAM: US ST HEAD_NEC K HISTORY: Mass of neck COMPARISON: Ultrasound neck 02/07/2015. CT neck 01/24/2015 TECHNIQUE: Focused sonographic images in the posterior occipital region in the patient's reported area of concern. Additional left neck was scanned per pattern drafter. FINDINGS: No suspicious mass identified within the [...] ASHLEE ESCUDERO Date: 2021-08-25 09:54 Normal [facility] CBC AUTO DIFFon 07-02-2021 BASO # 0.0 103/ul Normal 0.0-0.1 [facility] Comment on above: Performed By: #### C BC #### [facility] [address] [place] [address] [address] Bibi Emerson Basophils/100 WBC (Bld) 0.3 % Normal 0.2-2.0 [facility] Comment on above: Performed By: #### C BC #### [facility] [address] [place] [address] [address] Bibi Emerson EO # 0.0 103/ul Normal 0.0-0.7 [facility] Comment on above: Performed By: #### C BC #### [facility] [address] [place] [address] Dr. Bibi Emerson Eosinophils/100 WBC (Bld) 0.0 % Critically low 0.9-7.0 [facility] Comment on above: Performed By: #### C BC #### [facility] [address] [place] [address] Dr. Bibi Emerson Erythrocyte distribution width (RBC) [Ratio] 13.0 % Normal 11.0-15.0 [facility] Comment on above: Performed By: #### C BC #### [facility] [address] [place] [address] Dr. Bibi Emerson Hematocrit (Bld) [Volume fraction] 47.0 % Normal 36.0-48.0 [facility] Comment on above: Performed By: #### C BC #### [facility] [address] [place] [address] Dr. Bibi Emerson Hemoglobin (Bld) [Mass/Vol] 15.5 g/dL Normal 12.0-16.0 [facility] Comment on above: Performed By: #### C BC #### [facility] [address] [place] [address] Dr. Bibi Emerson IG # 0.01 10e3/ul Normal 0.00-0.03 [facility] Comment on above: Performed By: #### C BC #### [facility] [address] [place] [address] Dr. Bibi Emerson IG % 0.2 % Normal 0.0-0.5 [facility] Comment on above: Performed By: #### C BC #### [facility] [address] [place] [address] Dr. Bibi Emerson LYMPH # 2.0 103/ul Normal 1.2-3.8 [facility] Comment on above: Performed By: #### C BC #### [facility] [address] [place] [address] Dr. Bibi Emerson Lymphocytes/100 WBC (Bld) 30.7 % Normal 20.5-60.0 [facility] Comment on above: Performed By: #### C BC #### [facility] [address] [place] [address] Dr. Bibi Emerson MANUAL DIFF REQ NO Normal [facility] Comment on above: Performed By: #### C BC #### [facility] [address] [place] [address] Dr. Bibi Emerson MCH (RBC) [Entitic mass] 29.8 pg Normal 26.7-34.0 [facility] Comment on above: Performed By: #### C BC #### [facility] [address] [place] [address] Dr. Bibi Emerson MCHC (RBC) [Mass/Vol] 33.0 g/dL Normal 29.9-35.2 [facility] Comment on above: Performed By: #### C BC #### [facility] [address] [place] [address] Dr. Bibi Emerson MCV (RBC) [Entitic vol] 90.2 fL Normal 81.0-99.0 [facility] Comment on above: Performed By: #### C BC #### [facility] [address] [place] [address] Dr. Bibi Emerson MONO # 0.5 103/ul Normal 0.3-0.8 [facility] Comment on above: Performed By: #### C BC #### [facility] [address] [place] [address] Dr. Bibi Emerson Monocytes/100 WBC (Bld) 7.9 % Normal 1.7-12.0 [facility] Comment on above: Performed By: #### C BC #### [facility] [address] [place] [address] Dr. Bibi Emerson NEUT # 4.0 103/ul Normal 1.4-6.5 [facility] Comment on above: Performed By: #### C BC #### [facility] [address] [place] [address] Dr. Bibi Emerson Neutrophils/100 WBC (Bld) 60.9 % Normal 43.0-75.0 [facility] Comment on above: Performed By: #### C BC #### [facility] [address] [place] [address] [address] Bibi Emerson Platelet mean volume (Bld) [Entitic vol] 8.9 fL Critically low 9.5-13.5 [facility] Comment on above: Performed By: #### C BC #### [facility] [address] [place] [address] [address] Bibi Emerson PLT 303 103/ul Normal 150-450 [facility] Comment on above: Performed By: #### C BC #### [facility] [address] [place] [address] Dr. Bibi Emerson RBC 5.21 106/ul Normal 4.20-5.40 [facility] Comment on above: Performed By: #### C BC #### [facility] [address] [place] [address] Dr. Bibi Emerson WBC 6.5 103/ul Normal 4.0-11.0 [facility] Comment on above: Performed By: #### C BC #### [facility] [address] [place] [address] Dr. Bibi Emerson Covid-19 PCR ([facility])on 06-22 SARS-CoV-2 (COVID-19) RNA RAAD+probe Ql (Unsp spec) Detected Critically abnormal NOT DETECTED [facility] Comment on above: Result Comment: This test is not yet approved or cleared by the [place] FDA. When there are no FDA-approved or cleared tests available, and other criteria are met, FDA can make tests available under an emergency access mechanism called an Emergency Use Authorization (EUA). The EUA for this test is supported by the [place] [employer] of Health and Human Service's (HHS's) declaration [...] used). Performed By: #### C VDTBH #### [facility] [address] [place] [address] Dr. Bibi Emerson INFLUENZA A AND B AGon 07-02 INFLUANE SEE BELOW Normal [facility] Comment on above: Result Comment: Nega tive for Flu A protein angiten. Infection due to Flu A cannot be ruled out. Flu A angiten in the sample may be below the detection limit of the test. Performed By: #### I NFLUAB ####[facility] [address] [place], [place] [address]Dr. Bibi Emerson INFLUBNEG SEE BELOW Normal [facility] Comment on above: Result Comment: Nega tive for Flu B protein antigen. Infection due to Flu B cannot be ruled out. Flu B antigen in the sample may be below the detection limit of the test. Performed By: #### I NFLUAB ####[facility] [address] [place], [place] [address]Dr. Bibi Emerson INFLUENZA A AG Negative Normal NEGATIVE SEE COMMENT [facility] Comment on above: Performed By: #### I NFLUAB ####[facility] [address] [place], [place] [address]Dr. Bibi Emerson INFLUENZA B AG Negative Normal NEGATIVE SEE COMMENT [facility] Comment on above: Performed By: #### I NFLUAB ####[facility] [address] [place], [place] [address]DrNorma Emerson INTERNAL CONTROLS Within Normal Limits Normal Wi thin Normal Limits [facility] Comment on above: Performed By: #### I NFLUAB ####[facility] [address] [place], [place] [address]DrNorma Emerson PROF CHEM 8 (BAS METB)on Anion gap [Moles/Vol] 12.0 mmol/L Normal [facility] Comment on above: Performed By: #### B MP #### [facility] [address] [place] [address] Dr. Bibi Emerson Calcium [Mass/Vol] 8.2 mg/dL Critically low 8.4-10.2 [facility] Comment on above: Performed By: #### B MP #### [facility] [address] [place] [address] [address] Bibi Emerson Chloride [Moles/Vol] 102 mmol/L Normal 98-107 [facility] Comment on above: Performed By: #### B MP #### [facility] [address] [place] [address] [address] Bibi Emerson CO2 [Moles/Vol] 27.6 mmol/L Normal 22.0-30.0 [facility] Comment on above: Performed By: #### B MP #### [facility] [address] [place] [address] [address] Bibi Emerson Creatinine [Mass/Vol] 1.03 mg/dL Normal 0.52-1.04 [facility] Comment on above: Performed By: #### B MP #### [facility] [address] [place] [address] Dr. Bibi Emerson EGFR-AF ZIMBABWEAN >60 Normal >=60 [facility] Comment on above: Performed By: #### B MP #### [facility] [address] [place] [address] [address] Bibi Emerson EGFR-NON AF ZIMBABWEAN 54 mL/min/1.73m2 Critically low >=60 [facility] Comment on above: Performed By: #### B MP #### [facility] [address] [place] [address] [address] Bibi Emerson Glucose [Mass/Vol] 127 mg/dL Critically high 74-106 [facility] Comment on above: Performed By: #### B MP #### [facility] [address] [place] [address] [address] Bibi Emerson Potassium [Moles/Vol] 3.6 mmol/L Normal 3.4-5.0 [facility] Comment on above: Performed By: #### B MP #### [facility] [address] [place] [address] Dr. Bibi Emerson Sodium [Moles/Vol] 138 mmol/L Normal 137-145 [facility] Comment on above: Performed By: #### B MP #### [facility] [address] [address] [address] Bibi Emerson Urea nitrogen [Mass/Vol] 18.0 mg/dL Critically high 7.0-17.0 [facility] Comment on above: Performed By: #### B MP #### [facility] [address] [place] [address] [address] Bibi Emerson Urea nitrogen/Creatinine [Mass ratio] 17.5 mg/mg Normal [facility] Comment on above: Performed By: #### B MP #### [facility] [address] [address] [address] Bibi Emerson XR CHEST 1 Von 07-02-2021 XR CHEST 1 V EXAM: XR CHEST 1 V HISTORY: Cough and vomiting COMPARISON: Chest x-rays 03/02/2021. TECHNIQUE: Portable chest FINDINGS: Lung parenchyma exhibits no acute consolidation or infiltrate. No pneumothorax or pleural effusion. The cardiac, mediastinal and hilar contours are unremarkable. No visualized acute osseous abnormality IMPRESSION: No visualized acute abnormality Electronically authenticated by: GYPSY MUÑOZ Date: 2021-07-02 21:16 Normal [facility] Covid-19 PCR ([facility])on SARS-CoV-2 (COVID-19) RNA RAAD+probe Ql (Unsp spec) Not detected Normal NOT DETECTED [facility] Comment on above: Result Comment: This test is not yet approved or cleared by the [place] FDA. When there are no FDA-approved or cleared tests available, and other criteria are met, FDA can make tests available under an emergency access mechanism called an Emergency Use Authorization (EUA). The EUA for this test is supported by the [place] [facility] and Human Service's (HHS's) declaration [...] with SARS-CoV-2. Performed By: #### C VDTBH ####[facility] [address] [place], [place] [address]XvDr. Bibi Emerson TSH+FREE T4on 03-27-2021 Free T4 [Mass/Vol] 1.2 ng/dL Normal 0.8-1.8 [facility] Comment on above: Performed By: #### [id number] #### [facility] [address], [address] [place] [address] Process Improvement Analyst: Chalino Levy MD TSH Qn 2.23 m[IU]/L Normal 0.40-4.50 [facility] Comment on above: Performed By: #### 5 [id number] #### [facility] [address], [address] [place] [address] Process Improvement Analyst: Chalino Levy MD Covid-19 PCR ([facility])on 02-20 SARS-CoV-2 (COVID-19) RNA RAAD+probe Ql (Unsp spec) Not detected Normal NOT DETECTED [facility] Comment on above: Result Comment: This test is not yet approved or cleared by the [place] FDA. When there are no FDA-approved or cleared tests available, and other criteria are met, FDA can make tests available under an emergency access mechanism called an Emergency Use Authorization (EUA). The EUA for this test is supported by the [place] of Health and Human Service's (HHS's) declaration [...] Performed By: #### C VDTBH, CVDAGS #### [facility] [address] [place], [place] [address] Farida Yang SYMPTOMATIC COVID-19 ANTIGEN on 03-02-2021 EUA Statement SEE BELOW Normal [facility] Comment on above: Result Comment: This test [...] Performed By: #### C VDTB, CVDAGS #### [facility] [address] [place] [address] Farida Yang SARS-CoV-2 (COVID-19) RNA RAAD+probe Ql (Unsp spec) Negative Normal NEGATIVE [facility] Comment on above: Result Comment: CONF IRMATION BY PCR PENDING PER CDC GUIDELINES/ SYMPTOMATIC PATIENT. Performed By: #### C VDTB, CVDAGS #### [facility] [address] [place] [address] Farida Yang XR CHEST 1 Von 03-02-2021 [...] PALMER GREGORIO Date: 2021-03-02 13:11 Normal [facility] Basic Metabolic PanelOrdered By: Heena John on 11-22-2020 Anion gap [Moles/Vol] 9 mmol/L 9 - 17 mmol/L [employer] Work Phone: Calcium [Mass/Vol] 8.3 mg/dL Low 8.6 - 10. 4 mg/dL [employer] Phone: Chloride [Moles/Vol] 103 mmol/L 98 - 10 7 mmol/L [employer] Phone: CO2 [Moles/Vol] 29 mmol/L 20 - 31 mmol/L [employer] Phone: Creatinine [Mass/Vol] 0.77 mg/dL 0.50 - 0.90 mg/dL [employer] Phone: GFR >60 >60 mL/min [employer] Phone: GFR Non- >60 >60 mL/min [employer] Phone: GFR/1.73 sq M.predicted MDRD (S/P/Bld) [Vol rate/Area] [employer] Phone: Comment on above: Average GFR for 60-6 9 years old: 85 mL/min/1.73sq m Chronic Kidney Disease: <60 mL/min/1.73sq m Kidney failure: <15 mL/min/1.73sq m eGFR calculated using average adult body mass. Additional eGFR calculator available at: http://www.Paomianba.com/multiple_crcl_2012.htm GFR/1.73 sq M.predicted MDRD (S/P/Bld) [Vol rate/Area] NOT REPORTED [employer] Phone: Glucose [Mass/Vol] 131 mg/dL High 70 - 99 mg/dL [employer] Phone: Interpretation and review of laboratory results Abnormal [employer] Phone: Potassium [Moles/Vol] 4.5 mmol/L 3.7 - 5.3 mmol/L [employer] Phone: Sodium [Moles/Vol] 141 mmol/L 135 - 144 mmol/L [employer] Phone: Urea nitrogen (BldV) [Mass/Vol] 21 mg/dL 8 - 23 mg/dL [facility] Work Phone: Urea nitrogen/Creatinine (Bld) [Mass ratio] NOT REPORTED [facility] Fwd: Power Phone: [facility] Work Phone: Basic Metabolic Profon 11-22 (cont.) Normal [facility] Comment on above: Result Comment: Aver age GFR for 60-69 years old: 85 mL/min/1.73sq m Chronic Kidney Disease: <60 mL/min/1.73sq m Kidney failure: <15 mL/min/1.73sq m eGFR calculated using average adult body mass. Additional eGFR calculator available at: http://www.Paomianba.com/multiple_crcl_2012.htm Performed By: #### C DP, BMP #### [facility] [address] [place] [address] Injection Molding Engineer: Justin Chambers DO Anion gap [Moles/Vol] 9 mmol/L Normal 9-17 [facility] Comment on above: Performed By: #### C MARION, BMP #### [facility] [place] [address] Injection Molding Engineer: Justin Chambers DO Calcium [Mass/Vol] 8.3 mg/dL Low 8.6-10.4 [facility] Comment on above: Performed By: #### C DP, BMP #### [facility] [address] [place] [address] Injection Molding Engineer: Justin Chambers DO Chloride [Moles/Vol] 103 mmol/L Normal 98-107 [facility] Comment on above: Performed By: #### C DP, BMP #### [facility] [address] [place] [address] Injection Molding Engineer: Fanelly, Justin, DO CO2 [Moles/Vol] 29 mmol/L Normal 20-31 [facility] Comment on above: Performed By: #### C DP, BMP #### [facility] [address] [place] [address] Injection Molding Engineer: Justin Chambers DO Creatinine [Mass/Vol] 0.77 mg/dL Normal 0.50-0.90 [facility] Comment on above: Performed By: #### C DP, BMP #### [facility] [address] [place] [address] Injection Molding Engineer: Justin Chambers, DO GFR, Amer >60 Normal >60 [facility] Comment on above: Performed By: #### C DP, BMP #### [facility] [address] [place] [address] Injection Molding Engineer: Justin Chambers, DO GFR,non Amer >60 Normal >60 [facility] Comment on above: Performed By: #### C DP, BMP #### [facility] [place] [address] Injection Molding Engineer: Justin Chambers DO Glucose [Mass/Vol] 131 mg/dL High 70-99 [facility] Comment on above: Performed By: #### C DP, BMP #### [facility] [place] [address] Injection Molding Engineer: Justin Chambers DO Potassium [Moles/Vol] 4.5 mmol/L Normal 3.7-5.3 [facility] Comment on above: Performed By: #### C DP, BMP #### [facility] [address] [place] [address] Injection Molding Engineer: Justin Chambers DO Sodium [Moles/Vol] 141 mmol/L Normal 135-144 [facility] Comment on above: Performed By: #### C DP, BMP #### [facility] [address] [facility] [place] [address] Injection Molding Engineer: Justin Chambers DO Urea nitrogen [Mass/Vol] 21 mg/dL Normal 8-23 [facility] Comment on above: Performed By: #### C DP, BMP #### [facility] [address] [place] [address] Injection Molding Engineer: Justin Cahmbers DO BUN/CRE Ratio NOT REPORTED Normal 9-20 [facility] Comment on above: Performed By: #### C DP, BMP #### [facility] [address] [place] [address] Injection Molding Engineer: Justin Chambers DO Staging: NOT REPORTED Normal [facility] Comment on above: Performed By: #### C DP, BMP #### [facility] [address] [place] [address] Injection Molding Engineer: Justin Chambers DO CBC Auto DifferentialOrdered By: Heena John on 11-22-2020 Absolute Eos # 0.40 [facility] Work Phone: Absolute Immature Granulocyte NOT REPORTED [facility] Work Phone: Absolute Lymph # 1.80 [facility] Work Phone: Absolute [place] # 0.50 [facility] Work Phone: Basophils (Bld) [#/Vol] 0.10 10*3/uL [facility] Work Phone: Basophils/100 WBC (Bld) 1 % 0 - 2 % [employer] Work Phone: Differential Type NOT REPORTED [facility] Work Phone: Eosinophils/100 WBC (Bld) 4 % 0 - 4 % [facility] Work Phone: Hematocrit (Bld) [Volume fraction] 42.5 % 36 - 46 % [employer] Phone: Hemoglobin.gastrointes tinal spec 1 Ql (Stl) 13.8 g/dL 12.0 - 16.0 g/dL [employer] Phone: Immature Granulocytes NOT REPORTED 0 % [employer] Phone: Interpretation and review of laboratory results Abnormal [employer] Phone: Lymphocytes/100 WBC (Bld) 19 % Low 24 - 44 % [employer] Phone: MCH (RBC) [Entitic mass] 29.5 pg 26 - 34 pg [employer] Phone: MCHC (RBC) [Mass/Vol] 32.5 g/dL 31 - 3 7 g/dL [employer] Phone: MCV (RBC) [Entitic vol] 90.8 fL 80 - 100 fL [employer] Phone: Monocytes/100 WBC (Bld) 6 % 1 - 7 % [employer] Phone: NRBC Automated NOT REPORTED per 100 WBC [facility] Work Phone: Platelet distribution width (Bld) [Ratio] 13.3 % 11.5 - 14.9 % [employer] Phone: Platelet Estimate NOT REPORTED [employer] Phone: Platelet mean volume (Bld) [Entitic vol] 7.2 fL 6.0 - 12.0 fL [employer] Phone: Platelets (Bld) [#/Vol] 388 10*3/uL [employer] Phone: RBC (Bld) [#/Vol] 4.68 10*6/uL 4.0 - 5.2 m/uL [employer] Phone: RBC (Bld) [#/Vol] NOT REPORTED [employer] Phone: Segmented neutrophils/100 WBC (Bld) 70 % High 36 - 66 % [employer] Work Phone: Segs Absolute 6.70 [facility] [employer] Work Phone: WBC (Bld) [#/Vol] 9.4 10*3/uL [facility] [employer] Work Phone: WBC (Bld) [#/Vol] NOT REPORTED [employer] Work Phone: [employer] Work Phone: CBC with Diffon 11-22-2020 Abs. Basophil 0.10 k/uL Normal 0.0-0.2 [facility] Comment on above: Performed By: #### C DP, BMP #### [facility] [address] [place] [address] Injection Molding Engineer: Justin Chambers DO Abs.Neutrophil (Seg) 6.70 k/uL Normal 1.3-9.1 [facility] Comment on above: Performed By: #### C DP, BMP #### [facility] [address] [place] [address] Injection Molding Engineer: Justin Chambers DO Basophils/100 WBC (Bld) 1 % Normal 0-2 [facility] Comment on above: Performed By: #### C DP, BMP #### [facility] [address] [place] [address] Injection Molding Engineer: Justin Chambers DO Eosinophils (Bld) [#/Vol] 0.40 10*3/uL Normal 0.0-0.4 [facility] Comment on above: Performed By: #### C DP, BMP #### [facility] [address] [place] [address] Injection Molding Engineer: Justin Chambers DO Eosinophils/100 WBC (Bld) 4 % Normal 0-4 [facility] Comment on above: Performed By: #### C DP, BMP #### [facility] [place] [address] Injection Molding Engineer: Justin Chambers DO Erythrocyte distribution width (RBC) [Ratio] 13.3 % Normal 11.5-14.9 [facility] Comment on above: Performed By: #### C DP, BMP #### [facility] [address] [place] [address] Injection Molding Engineer: Justin Chambers DO Hematocrit (Bld) [Volume fraction] 42.5 % Normal 36-46 [facility] Comment on above: Performed By: #### C DP, BMP #### [facility] [address] [place] [address] Injection Molding Engineer: Justin Chambers DO Hemoglobin (Bld) [Mass/Vol] 13.8 g/dL Normal 12.0-16.0 [facility] Comment on above: Performed By: #### C MARION, BMP #### [facility] [address] [place] [address] Injection Molding Engineer: Justin Chambers DO Lymphocytes (Bld) [#/Vol] 1.80 10*3/uL Normal 1.0-4.8 [facility] Comment on above: Performed By: #### C DP, BMP #### [facility] [address] [place] [address] Injection Molding Engineer: Justin Chambers DO Lymphocytes/100 WBC (Bld) 19 % Low 24-44 [facility] Comment on above: Performed By: #### C DP, BMP #### [facility] [address] [place] [address] Injection Molding Engineer: Justin Chambers DO MCH (RBC) [Entitic mass] 29.5 pg Normal 26-34 [facility] Comment on above: Performed By: #### C DP, BMP #### [facility] [place] [address] Injection Molding Engineer: Justin Chambers DO MCHC (RBC) [Mass/Vol] 32.5 g/dL Normal 31-37 [facility] Comment on above: Performed By: #### C DP, BMP #### [facility] [address] [place] [address] Injection Molding Engineer: Justin Chambers DO MCV (RBC) [Entitic vol] 90.8 fL Normal 80-100 [facility] Comment on above: Performed By: #### C DP, BMP #### [facility] [address] [place] [address] Injection Molding Engineer: Justin Chambers DO Monocytes (Bld) [#/Vol] 0.50 10*3/uL Normal 0.1-1.3 [facility] Comment on above: Performed By: #### C DP, BMP #### [facility] [address] [place] [address] Injection Molding Engineer: Justin Chambers DO Monocytes/100 WBC (Bld) 6 % Normal 1-7 [facility] Comment on above: Performed By: #### C DP, BMP #### [facility] [address] [place] [address] Injection Molding Engineer: Justin Chambers DO Neutrophil (Seg) 70 % High 36-66 [facility] Comment on above: Performed By: #### C DP, BMP #### [facility] [address] [place] [address] Injection Molding Engineer: Justin Chambers DO Platelet mean volume (Bld) [Entitic vol] 7.2 fL Normal 6.0-12.0 [facility] Comment on above: Performed By: #### C DP, BMP #### [facility] [address] [facility] [place] [address] Injection Molding Engineer: Justin Chambers DO Platelets (Bld) [#/Vol] 388 10*3/uL Normal 150-450 [facility] Comment on above: Performed By: #### C DP, BMP #### [facility] [place] [address] Injection Molding Engineer: Justin Chambers DO RBC (Bld) [#/Vol] 4.68 10*6/uL Normal 4.0-5.2 [facility] Comment on above: Performed By: #### C DP, BMP #### [facility] [address] [place] [address] Injection Molding Engineer: Justin Chambers DO WBC (Bld) [#/Vol] 9.4 10*3/uL Normal 3.5-11.0 [facility] Comment on above: Performed By: #### C DP, BMP #### [facility] [address] [place] [address] Injection Molding Engineer: Justin Chambers DO Abs.Imm.Granulocyte NOT REPORTED Normal 0.00-0.30 [facility] Comment on above: Performed By: #### C DP, BMP #### [facility] [address] [place] [address] Injection Molding Engineer: Justin Chambers DO Auto Diff Performed NOT REPORTED Normal [facility] Comment on above: Performed By: #### C DP, BMP #### [facility] [address] [place] [address] Injection Molding Engineer: Justin Chambers DO Immature Granulocyte NOT REPORTED Normal 0 [facility] Comment on above: Performed By: #### C DP, BMP #### [facility] [place] [address] Injection Molding Engineer: Justin Chambers DO NRBC Automated NOT REPORTED Normal [facility] Comment on above: Performed By: #### C DP, BMP #### [facility] [address] [facility] [place] [address] Injection Molding Engineer: Justin Chambers DO Platelet Estimate NOT REPORTED Normal [facility] Comment on above: Performed By: #### C DP, BMP #### [facility] [address] [facility] [place] [address] Injection Molding Engineer: Justin Chambers DO RBC morphology finding Nom (Bld) NOT REPORTED Normal [facility] Comment on above: Performed By: #### C DP, BMP #### [facility] [place] [address] Injection Molding Engineer: Justin Chambers DO WBC Morphology NOT REPORTED Normal [facility] Comment on above: Performed By: #### C DP, BMP #### [facility] [address] [facility] [place] [address] Injection Molding Engineer: Justin Chambers DO COVID-19, RapidOrdered By: Ifeoma John on 11-22-2020 SARS-CoV-2 (COVID-19) RNA RAAD+probe Ql (Unsp spec) Not detected Not Detected [facility] Work Phone: Comment on above: Rapid NAAT: [...] management decisions. Fact sheet for Healthcare Providers: https://www.fda.gov/media/965277/download Fact sheet for Patients: https://www.fda.gov/media/597139/download Methodology: Isothermal Nucleic Acid Amplification Specimen Description .NASOPHARYNGEAL SWAB [employer] Phone: [employer] Phone: [id number] 11-22-2020 SARS-CoV-2 (COVID-19) RNA RAAD+probe Ql (Unsp spec) Not detected Normal NOTDET [facility] Comment on above: Result Comment: Rapid NAAT: [...] management decisions. Fact sheet for Healthcare Providers: https://www.fda.gov/media/356675/download Fact sheet for Patients: https://www.fda.gov/media/822849/download Methodology: Isothermal Nucleic Acid Amplification Performed By: #### C OVRB #### [facility] [address] [place] [address] Injection Molding Engineer: Justin Chambers DO XR CHEST PORTABLEon 11-23-19 [...] Ryanne Cantrell MD 11/22/20 Final result Normal [facility] XR CHEST PORTABLEOrdered By: Heena John on 11-22-2020 No acute cardiopulmonary process. Stable cardiomegaly and chronic basilar changes. [employer] Phone: EXAMINATION: ONE XRA Y VIEW OF [...] are age-appropriate. Chronic basilar changes are noted. [employer] Phone: Jose Antonio, pn Incoming Radiant Results From [employer] - 11/22/2020 1:15 PM EDT EXAMINATION: ONE [...] process. Stable cardiomegaly and chronic basilar changes. [employer] Phone: [employer] Phone: CT HEAD WO CONTRASTon 2019 CT [...] Huma Contreras MD 04/18/20 Final result Normal [facility] CBCon 04-16-2020 Erythrocyte distribution width (RBC) [Ratio] 13.0 % Normal 11.8-14.4 [facility] Comment on above: Performed By: #### C MEERA HARRIS, TSH #### [facility] [address] [place] [address] Injection Molding Engineer: Beau Troncoso MD Hematocrit (Bld) [Volume fraction] 45.8 % Normal 36.3-47.1 [facility] Comment on above: Performed By: #### C MEERA HARRIS, TSH #### [employer] [address] [place], [place] [id number] Injection Molding Engineer: Beau Troncoso MD Hemoglobin (Bld) [Mass/Vol] 14.3 g/dL Normal 11.9-15.1 [facility] Comment on above: Performed By: #### C MEERA HARRIS, TSH #### [employer] [address] [place] [address] Injection Molding Engineer: Beau Troncoso MD MCH (RBC) [Entitic mass] 29.5 pg Normal 25.2-33.5 [facility] Comment on above: Performed By: #### C BC, CP, TSH #### [address] [address] Injection Molding Engineer: Beau Troncoso MD MCHC (RBC) [Mass/Vol] 31.2 g/dL Normal 28.4-34.8 [facility] Comment on above: Performed By: #### C BC, CP, TSH #### [address] [address] Injection Molding Engineer: Beau Troncoso MD MCV (RBC) [Entitic vol] 94.6 fL Normal 82.6-102.9 [facility] Comment on above: Performed By: #### C BC, CP, TSH #### [address] [address] Injection Molding Engineer: Beau Troncoso MD NRBC Automated 0.0 per 100 WBC Normal 0.0 [facility] Comment on above: Performed By: #### C BC, CP, TSH #### [address] [address] Injection Molding Engineer: Beau Troncoso MD Platelet mean volume (Bld) [Entitic vol] 9.6 fL Normal 8.1-13.5 [facility] Comment on above: Performed By: #### C BC, CP, TSH #### [facility] [address] [place] [address] Injection Molding Engineer: Beau Troncoso MD Platelets (Bld) [#/Vol] 419 10*3/uL Normal 138-453 [facility] Comment on above: Performed By: #### C BC, CP, TSH #### [address] [address] Injection Molding Engineer: Beau Troncoso MD RBC (Bld) [#/Vol] 4.84 10*6/uL Normal 3.95-5.11 [facility] Comment on above: Performed By: #### C MEERA HARRIS, TSH #### [facility] [address] [place], [place] [id number] Injection Molding Engineer: Beau Troncoso MD WBC (Bld) [#/Vol] 7.6 10*3/uL Normal 3.5-11.3 [facility] Comment on above: Performed By: #### C MEERA HARRIS, TSH #### [facility] [address] [place], [place] [phone] Injection Molding Engineer: Beau Troncoso MD Erythrocyte distribution width (RBC) [Ratio] 13.0 % 11.8 - 14.4 % [place] Hematocrit (Bld) [Volume fraction] 45.8 % 36.3 - 47.1 % [place] Hemoglobin (Bld) [Mass/Vol] 14.3 g/dL 11.9 - 15.1 g/dL [place] MCH (RBC) [Entitic mass] 29.5 pg 25.2 - 33.5 pg [place] MCHC (RBC) [Mass/Vol] 31.2 g/dL 28.4 - 34.8 g/dL [place] MCV (RBC) [Entitic vol] 94.6 fL 82.6 - 102.9 fL [place] Platelet mean volume (Bld) [Entitic vol] 9.6 fL 8.1 - 13.5 fL [place] Platelets (Bld) [#/Vol] 419 10*3/uL [place] RBC (Bld) [#/Vol] 4.84 10*6/uL 3.95 - 5.1 1 m/uL [place] WBC (Bld) [#/Vol] 0.0 10*3/uL 0.0 per 10 0 WBC [place] WBC (Bld) [#/Vol] 7.6 10*3/uL [place] Comp Metabolic Profon 10-26- 2020 (cont.) Normal [facility] Comment on above: Result Comment: Aver age GFR for 60-69 years old: 85 mL/min/1.73sq m Chronic Kidney Disease: <60 mL/min/1.73sq m Kidney failure: <15 mL/min/1.73sq m eGFR calculated using average adult body mass. Additional eGFR calculator available at: http://www.Paomianba.com/multiple_crcl_2012.htm Performed By: #### C MEERA HARRIS, TSH #### [facility] [address] [place] [address] Injection Molding Engineer: Beau Troncoso MD Albumin [Mass/Vol] 4.0 g/dL Normal 3.5-5.2 [facility] Comment on above: Performed By: #### Felisha HARRIS CP, TSH #### [address] [address] Injection Molding Engineer: Beau Troncoso MD Albumin/Globulin [Mass ratio] 1.4 {ratio} Normal 1.0-2.5 [facility] Comment on above: Performed By: #### C MEERA HARRIS, TSH #### [address] [address] Injection Molding Engineer: Beau Troncoso MD Alkaline Phos 67 U/L Normal 35-104 [facility] Comment on above: Performed By: #### Felisha HARRIS CP, TSH #### [facility] [place] [address] Injection Molding Engineer: Beau Troncoso MD ALT [Catalytic activity/Vol] 13 U/L Normal 5-33 [facility] Comment on above: Performed By: #### C MEERA HARRIS, TSH #### [facility] [employer] [address] [place] [address] Injection Molding Engineer: Beau Troncoso MD Anion gap [Moles/Vol] 8 mmol/L Low 9-17 [facility] Comment on above: Performed By: #### C BC, CP, TSH #### [facility] [address] [place] [address] Injection Molding Engineer: Beau Troncoso MD AST [Catalytic activity/Vol] 12 U/L Normal <32 [facility] Comment on above: Performed By: #### C BC, CP, TSH #### [facility] [address] [place] [address] Injection Molding Engineer: Beau Troncoso MD Bilirubin Ql (U) 0.30 mg/dL Normal 0.3-1.[address] [facility] Comment on above: Performed By: #### C BC, CP, TSH #### [facility] [address] [place] [address] Injection Molding Engineer: Beau Troncoso MD Calcium [Mass/Vol] 8.7 mg/dL Normal 8.6-10.4 [facility] Comment on above: Performed By: #### C BC, CP, TSH #### [facility] [address] [place] [address] Injection Molding Engineer: Beau Troncoso MD Chloride [Moles/Vol] 102 mmol/L Normal 98-107 [facility] Comment on above: Performed By: #### C BC, CP, TSH #### [facility] [address] [place] [address] Injection Molding Engineer: Beau Troncoso MD CO2 [Moles/Vol] 32 mmol/L High 20-31 [facility] Comment on above: Performed By: #### C BC, CP, TSH #### [facility] [address] [place] [id number] Injection Molding Engineer: Beau Troncoso MD Creatinine [Mass/Vol] 0.78 mg/dL Normal 0.50-0.90 [facility] Comment on above: Performed By: #### C BC, CP, TSH #### [facility] [address] [place] [phone] Injection Molding Engineer: Beau Troncoso MD GFR, Amer >60 Normal >[address] [facility] Comment on above: Performed By: #### C BC, CP, TSH #### [facility] [address] [place] [address] Injection Molding Engineer: Beau Troncoso MD GFR,non Amer >60 Normal >60 [facility] Comment on above: Performed By: #### C BC, CP, TSH #### [facility] [address] [place] [phone] Injection Molding Engineer: Beau Troncoso MD Glucose [Mass/Vol] 86 mg/dL Normal 70-99 [facility] Comment on above: Performed By: #### C KIMBERLY CP, TSH #### [facility] [address] [place] [phone] Injection Molding Engineer: Beau Troncoso MD Potassium [Moles/Vol] 4.7 mmol/L Normal 3.7-5.3 [facility] Comment on above: Performed By: #### C KIMBERLY CP, TSH #### [facility] [address] [place] [phone] Injection Molding Engineer: Beau Troncoso MD Protein [Mass/Vol] 6.8 g/dL Normal 6.4-8.3 [facility] Comment on above: Performed By: #### C KIMBERLY CP, TSH #### [facility] [address] [place] [phone] Injection Molding Engineer: Beau Troncoso MD Sodium [Moles/Vol] 142 mmol/L Normal 135-144 [facility] Comment on above: Performed By: #### C BC, CP, TSH #### [facility] [address] [place] [phone] Injection Molding Engineer: Beau Troncoso MD Urea nitrogen [Mass/Vol] 22 mg/dL Normal 8-23 [facility] Comment on above: Performed By: #### C BC, CP, TSH #### [facility] [address], [place] [phone] Injection Molding Engineer: Beau Troncoso MD BUN/CRE Ratio NOT REPORTED Normal 9-20 [facility] Comment on above: Performed By: #### C BC, CP, TSH #### [facility] [address], [place] [phone] Injection Molding Engineer: Beau Troncoso MD Staging: NOT REPORTED Normal [facility] Comment on above: Performed By: #### C BC, CP, TSH #### [facility] [address], [place] [phone] Injection Molding Engineer: Beau Troncoso MD [facility] 04-16-2020 Albumin [Mass/Vol] 4 g/dL 3.5 - 5.2 g/dL [place] Albumin/Globulin [Mass ratio] 1.4 {ratio} [place] ALP [Catalytic activity/Vol] 67 U/L 35 - 104 U/L [place] ALT [Catalytic activity/Vol] 13 U/L 5 - 33 U/L [place] Anion gap [Moles/Vol] 8 mmol/L Low 9 - 17 mmol/L [place] AST [Catalytic activity/Vol] 12 U/L <32 [place] Bilirubin Ql (U) 0.30 mg/dL 0.3 - 1.2 mg/dL [place] Bun/Cre Ratio NOT REPORTED [place] Calcium [Mass/Vol] 8.7 mg/dL 8.6 - 10. 4 mg/dL [place] Chloride [Moles/Vol] 102 mmol/L 98 - 10 7 mmol/L [place] CO2 [Moles/Vol] 32 mmol/L High 20 - 31 mmol/L [place] Creatinine [Mass/Vol] 0.78 mg/dL 0.5 - 0.9 mg/dL [place] GFR >60 >60 mL/min [place] GFR Non- >60 >60 mL/min [place] GFR/1.73 sq M predicted among non-blacks MDRD (S/P/Bld) [Vol rate/Area] [place], [place] Comment on above: Average GFR for 60-6 9 years old: 85 mL/min/1.73sq m Chronic Kidney Disease: <60 mL/min/1.73sq m Kidney failure: <15 mL/min/1.73sq m eGFR calculated using average adult body mass. Additional eGFR calculator available at: http://www.Paomianba.com/multiple_crcl_2012.htm GFR/1.73 sq M predicted among non-blacks MDRD (S/P/Bld) [Vol rate/Area] NOT REPORTED [place] Glucose [Mass/Vol] 86 mg/dL 70 - 99 mg/dL [place] Interpretation and review of laboratory results Abnormal [place] Potassium [Moles/Vol] 4.7 mmol/L 3.7 - 5.3 mmol/L [place] Protein [Mass/Vol] 6.8 g/dL 6.4 - 8.3 g/dL [place] Sodium [Moles/Vol] 142 mmol/L 135 - 144 mmol/L [place] Urea nitrogen [Mass/Vol] 22 mg/dL 8 - 23 mg/dL [place] Hemoglobin A1Con 04-16-2020 Glucose [Mass/Vol] 126 mg/dL [place] Comment on above: The ADA and AACC rec ommend providing the estimated average glucose result to permit better patient understanding of their HBA1c result. HbA1c (Bld) [Mass fraction] 6.0 % 4 - 6 % [place] TSH without Reflexon 020 TSH Qn 0.89 m[IU]/L [place] Thyroid Stim. Horm.on 2019 TSH Qn 0.89 m[IU]/L Normal 0.30-5.00 [facility] Comment on above: Performed By: #### C BC, CP, TSH #### [facility] [address] [place] [address] Injection Molding Engineer: Beau Troncoso MD MRI SHOULDER RIGHT WO [...] Blas Godwin MD 03/25/20 Final result Normal [facility] 1. Moderate acromioclavicular osteoarthritis with reactive edema in the distal clavicle and acromion. 2. Minimal 2 mm interstitial tear of the infraspinatus tendon. Mild bursal surface fraying of the supraspinatus and infraspinatus tendons. No additional rotator cuff tear. 3. No biceps tear. [facility], [place] EXAMINATION: MRI OF THE RIGHT [...] are without obstructing or space occupying lesions. [facility] [place], [place] Jose Antonio, Mhpn Incoming Radiant Results From Command Information - 03/25/2020 4:57 PM EDT EXAMINATION: MRI [...] rotator cuff tear. 3. No biceps tear. [place] C-Reactive Proteinon 11-01-2 020 CRP [Mass/Vol] 13 mg/L High 0 - 5 mg/L [place], [place] CBC Auto Differentialon 10-20 Basophils (Bld) [#/Vol] 0.10 10*3/uL [place] Basophils/100 WBC (Bld) 1 % 0 - 2 % [place] Differential Type NOT REPORTED [place] Eosinophils (Bld) [#/Vol] 0.20 10*3/uL [place] Eosinophils/100 WBC (Bld) 3 % 0 - 4 % [place] Erythrocyte distribution width (RBC) [Ratio] 13.0 % 11.5 - 14.9 % [place] Hematocrit (Bld) [Volume fraction] 42.0 % 36 - 46 % [place] Hemoglobin (Bld) [Mass/Vol] 13.8 g/dL 12 - 16 g/dL [place] Interpretation and review of laboratory results Abnormal [place] Lymphocytes (Bld) [#/Vol] 1.10 10*3/uL [place] Lymphocytes/100 WBC (Bld) 13 % Low 24 - 44 % [place] MCH (RBC) [Entitic mass] 30.5 pg 26 - 34 pg [place] MCHC (RBC) [Mass/Vol] 32.7 g/dL 31 - 3 7 g/dL [place] MCV (RBC) [Entitic vol] 93.1 fL 80 - 100 fL [place], [place] Monocytes (Bld) [#/Vol] 0.50 10*3/uL [place], [place] Monocytes/100 WBC (Bld) 5 % 1 - 7 % [place] Platelet mean volume (Bld) [Entitic vol] 6.9 fL 6 - 12 fL [place] Platelets (Bld) [#/Vol] 382 10*3/uL [place] Platelets (Bld) [#/Vol] NOT REPORTED [place] RBC (Bld) [#/Vol] 4.51 10*6/uL 4 - 5.2 m/uL [place], [place] RBC morphology finding Nom (Bld) NOT REPORTED [place], [place] Segmented neutrophils/100 WBC (Bld) 78 % High 36 - 66 % [place] Segs Absolute 6.90 [place] WBC (Bld) [#/Vol] 8.8 10*3/uL [place] WBC (Bld) [#/Vol] NOT REPORTED per 100 WBC [place] WBC Morphology NOT REPORTED [place], [place] Comprehensive Metabolic Pane deven 11-02-2019 Albumin [Mass/Vol] 4.1 g/dL 3.5 - 5.2 g/dL [place] Albumin/Globulin [Mass ratio] NOT REPORTED [place] ALP [Catalytic activity/Vol] 61 U/L 35 - 104 U/L [place] ALT [Catalytic activity/Vol] 13 U/L 5 - 33 U/L [place] Anion gap [Moles/Vol] 7 mmol/L Low 9 - 17 mmol/L [place] AST [Catalytic activity/Vol] 12 U/L <32 [place] Bilirubin Ql (U) 0.29 mg/dL Low 0.3 - 1.2 mg/dL [place] Bun/Cre Ratio NOT REPORTED [place] Calcium [Mass/Vol] 8.7 mg/dL 8.6 - 10. 4 mg/dL [place] Chloride [Moles/Vol] 101 mmol/L 98 - 10 7 mmol/L [place] CO2 [Moles/Vol] 31 mmol/L 20 - 31 mmol/L [place] Creatinine [Mass/Vol] 0.72 mg/dL 0.5 - 0.9 mg/dL [place] GFR >60 >60 mL/min [place] GFR Non- >60 >60 mL/min [place] GFR/1.73 sq M predicted among non-blacks MDRD (S/P/Bld) [Vol rate/Area] NOT REPORTED [place] GFR/1.73 sq M predicted among non-blacks MDRD (S/P/Bld) [Vol rate/Area] [place], [place] Comment on above: Average GFR for 60-6 9 years old: 85 mL/min/1.73sq m Chronic Kidney Disease: <60 mL/min/1.73sq m Kidney failure: <15 mL/min/1.73sq m eGFR calculated using average adult body mass. Additional eGFR calculator available at: http://www.Paomianba.com/Cognitive Match_crcl_2011.htm Glucose [Mass/Vol] 118 mg/dL High 70 - 99 mg/dL [place], [place] Potassium [Moles/Vol] 4.8 mmol/L 3.7 - 5.3 mmol/L [place] Protein [Mass/Vol] 7.5 g/dL 6.4 - 8.3 g/dL [place] Sodium [Moles/Vol] 139 mmol/L 135 - 144 mmol/L [place], [place] Urea nitrogen [Mass/Vol] 21 mg/dL 8 - 23 mg/dL [place] D-Dimer, Quantitativeon 10-20 D-Dimer, Quant <0.27 [place] Comment on above: When combined with [...] LD 173 U/L 135 - 214 U/L [place] Lactic Acid, Plasmaon 2019 Lactate [Moles/Vol] 0.5 mmol/L 0.5 - 2. 2 mmol/L [place], [place] Lactic Acid, Whole Blood NOT REPORTED 0.7 - 2.1 mmol/L [place], [place] Otheron 11-02-2019 Interpretation and review of laboratory results Abnormal [place] Immature granulocytes (Bld) [#/Vol] NOT REPORTED [place] Troponinon 11-02-2019 Troponin I.cardiac [Mass/Vol] NOT REPORTED [place] Troponin T.cardiac [Mass/Vol] NOT REPORTED <0.03 ng/mL [place] Troponin, High Sensitivity <6 0 - 14 ng/L [place] Comment on above: High Sensitivity Troponin values cannot be compared with other Troponin methodologies. Patients with high levels of Biotin oral intake (i.e >5mg/day) may have falsely decreased Troponin levels. Samples collected within 8 hours of biotin intake may require additional information for diagnosis. Troponin I.cardiac [Mass/Vol] NOT REPORTED [place] Troponin T.cardiac [Mass/Vol] NOT REPORTED <0.03 ng/mL [place] Troponin, High Sensitivity <6 0 - 14 ng/L [place], [place] Comment on above: High Sensitivity Troponin [...] unremarkable. The extrathoracic soft tissues are unremarkable. [place] Cardiomegaly and chronic pulmonary change without acute pulmonary process. [place], [place] Jose Antonio, Mhpn Incoming Radiant Results From [employer] - 11/02/2019 10:59 AM EDT EXAMINATION: ONE [...] chronic pulmonary change without acute pulmonary process. [place] B.A.L. CELL COUNTon 10-07-19 20 Fluid Diff Comment Reviewed by pathologist: Justin Chambers D.O. [place], [place] Comment on above: SLIDE REVIEWED. MACR OPHAGES AND MIXED INFLAMMATORY CELLS NOTED. CORRECTED ON 10/06 AT 1306: PREVIOUSLY REPORTED TO BE REVIEWED BY PATHOLOGIST RBC (Bld) [#/Vol] 913 /mm3 [place], [place] Specimen type Nom (Spec) .BRONCHIAL WASHINGS [place], [place] WBC (Bld) [#/Vol] 38 /mm3 [place] Culture, Respiratoryon 10-06 Culture NORMAL RESPIRATORY CHERYL MODERATE GROWTH [place], [place] Direct Exam FEW NEUTROPHILS Abnormal [place], [place] Interpretation and review of laboratory results Abnormal [place] Special Requests NOT REPORTED [place] Specimen Description .BRONCHIAL WASHINGS [place] Fungal stainon 10-07-2019 Direct Exam NO FUNGAL ELEMENTS SEEN [place] Special Requests NOT REPORTED [place] Specimen Description .BRONCHIAL WASHINGS [place], [place] Otheron 10-07-2019 Direct Exam Positive Abnormal [place], [place] CBC with DIFFon 10-06-2019 Basophils (Bld) [#/Vol] 0.14 10*3/uL [place], [place] Basophils/100 WBC (Bld) 1 % 0 - 2 % [place] Differential Type NOT REPORTED [place] Eosinophils (Bld) [#/Vol] 0.00 10*3/uL [place] Eosinophils/100 WBC (Bld) 0 % 0 - 4 % [place] Erythrocyte distribution width (RBC) [Ratio] 13.4 % 11.5 - 14.9 % [place] Hematocrit (Bld) [Volume fraction] 40.9 % 36 - 46 % [place] Hemoglobin (Bld) [Mass/Vol] 13.5 g/dL 12 - 16 g/dL [place], [place] Interpretation and review of laboratory results Abnormal [place] Lymphocytes (Bld) [#/Vol] 1.15 10*3/uL [place], [place] Lymphocytes/100 WBC (Bld) 8 % Low 24 - 44 % [place] MCH (RBC) [Entitic mass] 30.6 pg 26 - 34 pg [place], [place] MCHC (RBC) [Mass/Vol] 33.0 g/dL 31 - 3 7 g/dL [place] MCV (RBC) [Entitic vol] 92.7 fL 80 - 100 fL [place], [place] Monocytes (Bld) [#/Vol] 0.29 10*3/uL [place], [place] Monocytes/100 WBC (Bld) 2 % 1 - 7 % [place] Morphology Den (Bld) [Interp] Normal [place], [place] Platelet mean volume (Bld) [Entitic vol] 7.3 fL 6 - 12 fL [place] Platelets (Bld) [#/Vol] NOT REPORTED [place], [place] Platelets (Bld) [#/Vol] 419 10*3/uL [place] RBC (Bld) [#/Vol] 4.41 10*6/uL 4 - 5.2 m/uL [place], [place] RBC morphology finding Nom (Bld) NOT REPORTED [place], [place] Segmented neutrophils/100 WBC (Bld) 89 % High 36 - 66 % [place], [place] Segs Absolute 12.82 [place] WBC (Bld) [#/Vol] NOT REPORTED per 100 WBC [place] WBC (Bld) [#/Vol] 14.4 10*3/uL [place], [place] WBC Morphology NOT REPORTED [place], [place] Cell Count with Diff, BALon 10-06-2019 BAL Diff Comment TO BE REVIEWED BY PATHOLOGIST [place], [place] Columnar Epis BAL PRESENT [place] Eosinophils/100 WBC (Bld) 4 % High 0 - 1 % [place] Interpretation and review of laboratory results Abnormal [place], [place] Lymphocytes/100 WBC (Bld) 13 % High 8 - 12 % [place], [place] Macrophages, BAL 61 % Low 85 - 95 % [place], [place] Segmented neutrophils/100 WBC (Bld) 22 % High 0 - 10 % [place], [place] Comp Metabolic Profon 2019 Albumin [Mass/Vol] 3.5 g/dL 3.5 - 5.2 g/dL [place], [place] Albumin/Globulin [Mass ratio] NOT REPORTED [place], [place] ALP [Catalytic activity/Vol] 49 U/L 35 - 104 U/L [place], [place] ALT [Catalytic activity/Vol] 10 U/L 5 - 33 U/L [place], [place] Anion gap [Moles/Vol] 12 mmol/L 9 - 17 mmol/L [place] AST [Catalytic activity/Vol] 12 U/L <32 [place], [place] Bilirubin Ql (U) 0.30 mg/dL 0.3 - 1.2 mg/dL [place], [place] Bun/Cre Ratio NOT REPORTED [place] Calcium [Mass/Vol] 9.0 mg/dL 8.6 - 10. 4 mg/dL [place], [place] Chloride [Moles/Vol] 100 mmol/L 98 - 10 7 mmol/L [place] CO2 [Moles/Vol] 26 mmol/L 20 - 31 mmol/L [place] Creatinine [Mass/Vol] 0.72 mg/dL 0.5 - 0.9 mg/dL [place] GFR >60 >60 mL/min [place] GFR Non- >60 >60 mL/min [place] GFR/1.73 sq M predicted among non-blacks MDRD (S/P/Bld) [Vol rate/Area] [place], [place] Comment on above: Average GFR for 60-6 9 years old: 85 mL/min/1.73sq m Chronic Kidney Disease: <60 mL/min/1.73sq m Kidney failure: <15 mL/min/1.73sq m eGFR calculated using average adult body mass. Additional eGFR calculator available at: http://www.Paomianba.com/multiple_crcl_2012.htm GFR/1.73 sq M predicted among non-blacks MDRD (S/P/Bld) [Vol rate/Area] NOT REPORTED [place], [place] Glucose [Mass/Vol] 145 mg/dL High 70 - 99 mg/dL [place], [place] Potassium [Moles/Vol] 4.1 mmol/L 3.7 - 5.3 mmol/L [place] Protein [Mass/Vol] 6.7 g/dL 6.4 - 8.3 g/dL [place], [place] Sodium [Moles/Vol] 138 mmol/L 135 - 144 mmol/L [place], [place] Urea nitrogen [Mass/Vol] 23 mg/dL 8 - 23 mg/dL [place] Culture, Virus, Respiratoryo n 10-06-2019 Culture VIRAL RESPIRATORY CULTURES ARE NOT LONGER PERFORMED [place], [place] Special Requests NOT REPORTED [place] Specimen Description .BRONCHIAL WASHINGS [place], [place] Otheron 10-06-2019 Interpretation and review of laboratory results Abnormal [place] Immature granulocytes (Bld) [#/Vol] NOT REPORTED [place] T4, Freeon 10-06-2019 Interpretation and review of laboratory results Abnormal [place] Thyroxine, Free 2.03 ng/dL High 0.93 - 1.7 ng/dL [place], [place] TSH with Reflexon 10-06-2019 TSH Qn 0.10 m[IU]/L [place] Basic Metabolic Panel w/ Ref alvin to MGon 10-05-2019 Anion gap [Moles/Vol] 9 mmol/L 9 - 17 mmol/L [place], [place] Bun/Cre Ratio NOT REPORTED [place], [place] Calcium [Mass/Vol] 8.8 mg/dL 8.6 - 10. 4 mg/dL [place], [place] Chloride [Moles/Vol] 102 mmol/L 98 - 10 7 mmol/L [place], [place] CO2 [Moles/Vol] 29 mmol/L 20 - 31 mmol/L [place], [place] Creatinine [Mass/Vol] 0.72 mg/dL 0.5 - 0.9 mg/dL [place], [place] GFR >60 >60 mL/min [place] GFR Non- >60 >60 mL/min [place] GFR/1.73 sq M predicted among non-blacks MDRD (S/P/Bld) [Vol rate/Area] NOT REPORTED [place] GFR/1.73 sq M predicted among non-blacks MDRD (S/P/Bld) [Vol rate/Area] [place], [place] Comment on above: Average GFR for 60-6 9 years old: 85 mL/min/1.73sq m Chronic Kidney Disease: <60 mL/min/1.73sq m Kidney failure: <15 mL/min/1.73sq m eGFR calculated using average adult body mass. Additional eGFR calculator available at: http://www.Springshot.Ourpalm/multiple_crcl_2012.htm Glucose [Mass/Vol] 97 mg/dL 70 - 99 mg/dL [place], [place] Potassium [Moles/Vol] 4.3 mmol/L 3.7 - 5.3 mmol/L [place], [place] Sodium [Moles/Vol] 140 mmol/L 135 - 144 mmol/L [place], [place] Urea nitrogen [Mass/Vol] 18 mg/dL 8 - 23 mg/dL [place], [place] CBC with DIFFon 10-05-2019 Basophils (Bld) [#/Vol] 0.10 10*3/uL [place], [place] Basophils/100 WBC (Bld) 1 % 0 - 2 % [place], [place] Differential Type NOT REPORTED [place] Eosinophils (Bld) [#/Vol] 0.50 10*3/uL [place], [place] Eosinophils/100 WBC (Bld) 6 % High 0 - 4 % [place] Erythrocyte distribution width (RBC) [Ratio] 13.4 % 11.5 - 14.9 % [place] Hematocrit (Bld) [Volume fraction] 40.2 % 36 - 46 % [place] Hemoglobin (Bld) [Mass/Vol] 13.4 g/dL 12 - 16 g/dL [place], [place] Interpretation and review of laboratory results Abnormal [place] Lymphocytes (Bld) [#/Vol] 2.50 10*3/uL [place] Lymphocytes/100 WBC (Bld) 30 % 24 - 44 % [place] MCH (RBC) [Entitic mass] 30.5 pg 26 - 34 pg [place] MCHC (RBC) [Mass/Vol] 33.3 g/dL 31 - 3 7 g/dL [place] MCV (RBC) [Entitic vol] 91.5 fL 80 - 100 fL [place], [place] Monocytes (Bld) [#/Vol] 0.90 10*3/uL [place], [place] Monocytes/100 WBC (Bld) 11 % High 1 - 7 % [place] Platelet mean volume (Bld) [Entitic vol] 6.9 fL 6 - 12 fL [place] Platelets (Bld) [#/Vol] 407 10*3/uL [place] Platelets (Bld) [#/Vol] NOT REPORTED [place] RBC (Bld) [#/Vol] 4.39 10*6/uL 4 - 5.2 m/uL [place] RBC morphology finding Nom (Bld) NOT REPORTED [place] Segmented neutrophils/100 WBC (Bld) 52 % 36 - 66 % [place] Segs Absolute 4.20 [facility] [place] WBC (Bld) [#/Vol] NOT REPORTED per 100 WBC [place] WBC (Bld) [#/Vol] 8.1 10*3/uL [place] WBC Morphology NOT REPORTED [facility] [place] Otheron 10-05-2019 Immature granulocytes (Bld) [#/Vol] NOT REPORTED 0 % [place] XR CHEST PORTABLEon 10-05-19 20 EXAMINATION: ONE XRA Y VIEW OF [...] could better evaluate lung parenchyma if indicated. [place] Jose Antonio, Mhpn Incoming Radiant Results From [facility] - 10/05/2019 6:01 PM EDT EXAMINATION: ONE [...] base. Follow [facility] resolution is [facility] Patchy airspace dise ase representing atelectasis or infiltrate in the right lung base. Follow up to resolution is suggested. [facility] X[facility] CHEST PORTABLEon 09-15-19 20 Perihilar and suprahilar airspace opacities could represent interstitial edema versus developing airspace disease. Please correlate exam findings. Follow-up to assure resolution following medical treatment course recommended [facility] EX[facility]: ONE XRA Y VIEW OF THE CHEST 09/15/2019 5:51 pm COMPARISON: 08/25/2019 HISTORY: ORDERING SYSTEM PROVIDED HISTORY: cough TECHNOLOGIST PROVIDED HISTORY: cough Reason for Exam: cough Acuity: Unknown Type of Exam: Unknown FINDINGS: The cardiomediastinal silhouette is normal in size and contour. Perihilar edema. Patchy suprahilar airspace opacities.. No pleural effusion or pneumothorax is present. [facility] [place] Jose Antonio, Mhpn Incoming Radiant Results From [employer] - 09/15/2019 6:05 PM EDT EXAMINATION: ONE [...] assure resolution following medical treatment course recommended [facility] [place] CBC auto differentialon Basophils (Bld) [#/Vol] 0.00 10*3/uL [place] Basophils/100 WBC (Bld) 0 % 0 - 2 % [place] Differential Type NOT REPORTED [place] Eosinophils (Bld) [#/Vol] 0.00 10*3/uL [place] Eosinophils/100 WBC (Bld) 0 % 0 - 4 % [place] Erythrocyte distribution width (RBC) [Ratio] 13.8 % 11.5 - 14.9 % [place] Hematocrit (Bld) [Volume fraction] 39.9 % 36 - 46 % [place] Hemoglobin (Bld) [Mass/Vol] 13.1 g/dL 12 - 16 g/dL [place] Interpretation and review of laboratory results Abnormal [place] Lymphocytes (Bld) [#/Vol] 1.00 10*3/uL [place] Lymphocytes/100 WBC (Bld) 8 % Low 24 - 44 % [place] MCH (RBC) [Entitic mass] 30.8 pg 26 - 34 pg [place] MCHC (RBC) [Mass/Vol] 32.9 g/dL 31 - 3 7 g/dL [place] MCV (RBC) [Entitic vol] 93.5 fL 80 - 100 fL [place], [place] Monocytes (Bld) [#/Vol] 0.90 10*3/uL [place] Monocytes/100 WBC (Bld) 7 % 1 - 7 % [place] Platelet mean volume (Bld) [Entitic vol] 6.7 fL 6 - 12 fL [place] Platelets (Bld) [#/Vol] NOT REPORTED [place] Platelets (Bld) [#/Vol] 341 10*3/uL [place] RBC (Bld) [#/Vol] 4.27 10*6/uL 4 - 5.2 m/uL [place] RBC morphology finding Nom (Bld) NOT REPORTED [place] Segmented neutrophils/100 WBC (Bld) 85 % High 36 - 66 % [place] Segs Absolute 11.30 [place] WBC (Bld) [#/Vol] NOT REPORTED per 100 WBC [place] WBC (Bld) [#/Vol] 13.2 10*3/uL [place] WBC Morphology NOT REPORTED [place] Comprehensive Metabolic Pane l w/ Reflex to MGon 08-29-2019 Albumin [Mass/Vol] 3.3 g/dL Low 3.5 - 5.2 g/dL [place] Albumin/Globulin [Mass ratio] NOT REPORTED [place] ALP [Catalytic activity/Vol] 51 U/L 35 - 104 U/L [place] ALT [Catalytic activity/Vol] 28 U/L 5 - 33 U/L [place] Anion gap [Moles/Vol] 10 mmol/L 9 - 17 mmol/L [place] AST [Catalytic activity/Vol] 19 U/L <32 [place] Bilirubin Ql (U) 0.23 mg/dL Low 0.3 - 1.2 mg/dL [place] Bun/Cre Ratio NOT REPORTED [place] Calcium [Mass/Vol] 7.9 mg/dL Low 8.6 - 10. 4 mg/dL [place] Chloride [Moles/Vol] 104 mmol/L 98 - 10 7 mmol/L [place] CO2 [Moles/Vol] 28 mmol/L 20 - 31 mmol/L [place] Creatinine [Mass/Vol] 0.73 mg/dL 0.5 - 0.9 mg/dL [place] GFR >60 >60 mL/min [place] GFR Non- >60 >60 mL/min [place] GFR/1.73 sq M predicted among non-blacks MDRD (S/P/Bld) [Vol rate/Area] [place], [place] Comment on above: Average GFR for 60-6 9 years old: 85 mL/min/1.73sq m Chronic Kidney Disease: <60 mL/min/1.73sq m Kidney failure: <15 mL/min/1.73sq m eGFR calculated using average adult body mass. Additional eGFR calculator available at: http://www.Springshot.Ourpalm/multiple_crcl_2012.htm GFR/1.73 sq M predicted among non-blacks MDRD (S/P/Bld) [Vol rate/Area] NOT REPORTED [place] Glucose [Mass/Vol] 125 mg/dL High 70 - 99 mg/dL [place] Interpretation and review of laboratory results Abnormal [place] Potassium [Moles/Vol] 4.5 mmol/L 3.7 - 5.3 mmol/L [place] Protein [Mass/Vol] 5.9 g/dL Low 6.4 - 8.3 g/dL [place], [place] Sodium [Moles/Vol] 142 mmol/L 135 - 144 mmol/L [place] Urea nitrogen [Mass/Vol] 28 mg/dL High 8 - 23 mg/dL [place], [place] Otheron 08-29-2019 Immature granulocytes (Bld) [#/Vol] NOT REPORTED [place] CBC auto differentialon Absolute Bands # 0.14 [place], [place] Bands 1 % 0 - 10 % [place] Basophils (Bld) [#/Vol] 0.00 10*3/uL [place] Basophils/100 WBC (Bld) 0 % 0 - 2 % [place] Differential Type NOT REPORTED [place] Eosinophils (Bld) [#/Vol] 0.00 10*3/uL [place] Eosinophils/100 WBC (Bld) 0 % 0 - 4 % [place] Erythrocyte distribution width (RBC) [Ratio] 13.8 % 11.5 - 14.9 % [place] Hematocrit (Bld) [Volume fraction] 40.1 % 36 - 46 % [place] Hemoglobin (Bld) [Mass/Vol] 13.2 g/dL 12 - 16 g/dL [place] Interpretation and review of laboratory results Abnormal [place] Lymphocytes (Bld) [#/Vol] 0.85 10*3/uL [place] Lymphocytes/100 WBC (Bld) 6 % Low 24 - 44 % [place] MCH (RBC) [Entitic mass] 30.8 pg 26 - 34 pg [place] MCHC (RBC) [Mass/Vol] 32.9 g/dL 31 - 3 7 g/dL [place] MCV (RBC) [Entitic vol] 93.5 fL 80 - 100 fL [place] Monocytes (Bld) [#/Vol] 0.99 10*3/uL [place] Monocytes/100 WBC (Bld) 7 % 1 - 7 % [place] Morphology Den (Bld) [Interp] Normal [place] Platelet mean volume (Bld) [Entitic vol] 6.7 fL 6 - 12 fL [place] Platelets (Bld) [#/Vol] 339 10*3/uL [place] Platelets (Bld) [#/Vol] NOT REPORTED [place] RBC (Bld) [#/Vol] 4.29 10*6/uL 4 - 5.2 m/uL [place] RBC morphology finding Nom (Bld) NOT REPORTED [place] Segmented neutrophils/100 WBC (Bld) 86 % High 36 - 66 % [place] Segs Absolute 12.22 High [place] WBC (Bld) [#/Vol] 14.2 10*3/uL [place] WBC (Bld) [#/Vol] NOT REPORTED per 100 WBC [place] WBC Morphology NOT REPORTED [place] Comprehensive Metabolic Pane l w/ Reflex to MGon 08-28-2019 Albumin [Mass/Vol] 3.5 g/dL 3.5 - 5.2 g/dL [place] Albumin/Globulin [Mass ratio] NOT REPORTED [place] ALP [Catalytic activity/Vol] 52 U/L 35 - 104 U/L [place] ALT [Catalytic activity/Vol] 17 U/L 5 - 33 U/L [place] Anion gap [Moles/Vol] 10 mmol/L 9 - 17 mmol/L [place] AST [Catalytic activity/Vol] 13 U/L <32 [place] Bilirubin Ql (U) 0.16 mg/dL Low 0.3 - 1.2 mg/dL [place] Bun/Cre Ratio NOT REPORTED [place] Calcium [Mass/Vol] 7.8 mg/dL Low 8.6 - 10. 4 mg/dL [place] Chloride [Moles/Vol] 104 mmol/L 98 - 10 7 mmol/L [place] CO2 [Moles/Vol] 29 mmol/L 20 - 31 mmol/L [place] Creatinine [Mass/Vol] 0.82 mg/dL 0.5 - 0.9 mg/dL [place] GFR >60 >60 mL/min [place] GFR Non- >60 >60 mL/min [place] GFR/1.73 sq M predicted among non-blacks MDRD (S/P/Bld) [Vol rate/Area] [place] Comment on above: Average GFR for 60-6 9 years old: 85 mL/min/1.73sq m Chronic Kidney Disease: <60 mL/min/1.73sq m Kidney failure: <15 mL/min/1.73sq m eGFR calculated using average adult body mass. Additional eGFR calculator available at: http://www.Paomianba.com/multiple_crcl_2012.htm GFR/1.73 sq M predicted among non-blacks MDRD (S/P/Bld) [Vol rate/Area] NOT REPORTED [place] Glucose [Mass/Vol] 153 mg/dL High 70 - 99 mg/dL [place] Interpretation and review of laboratory results Abnormal [place] Potassium [Moles/Vol] 4.4 mmol/L 3.7 - 5.3 mmol/L [place] Protein [Mass/Vol] 6.0 g/dL Low 6.4 - 8.3 g/dL [place] Sodium [Moles/Vol] 143 mmol/L 135 - 144 mmol/L [place] Urea nitrogen [Mass/Vol] 21 mg/dL 8 - 23 mg/dL [place] Otheron 08-28-2019 Immature granulocytes (Bld) [#/Vol] NOT REPORTED 0 % [place] Basic Metabolic Panel w/ Ref alvin to MGon 08-26-2019 Anion gap [Moles/Vol] 10 mmol/L 9 - 17 mmol/L [place] Bun/Cre Ratio NOT [facility]ED [facility] [place] Calcium [Mass/Vol] 8.1 mg/dL Low 8.6 - 10. 4 mg/dL [place] Chloride [Moles/Vol] 104 mmol/L 98 - 10 7 mmol/L [place] CO2 [Moles/Vol] 26 mmol/L 20 - 31 mmol/L [place] Creatinine [Mass/Vol] 0.78 mg/dL 0.5 - 0.9 mg/dL [place] GFR >60 >60 mL/min [place] GFR Non- >60 >60 mL/min [place] GFR/1.73 sq M predicted among non-blacks MDRD (S/P/Bld) [Vol rate/Area] [place] Comment on above: Average GFR for 60-6 9 years old: 85 mL/min/1.73sq m Chronic Kidney Disease: <60 mL/min/1.73sq m Kidney failure: <15 mL/min/1.73sq m eGFR calculated using average adult body mass. Additional eGFR calculator available at: http://www.Paomianba.com/multiple_crcl_2012.htm GFR/1.73 sq M predicted among non-blacks MDRD (S/P/Bld) [Vol rate/Area] NOT REPORTED [place] Glucose [Mass/Vol] 179 mg/dL High 70 - 99 mg/dL [place] Interpretation and review of laboratory results Abnormal [place] Potassium [Moles/Vol] 5.0 mmol/L 3.7 - 5.3 mmol/L [place] Sodium [Moles/Vol] 140 mmol/L 135 - 144 mmol/L [place] Urea nitrogen [Mass/Vol] 20 mg/dL 8 - 23 mg/dL [place] CBCon 08-26-2019 Erythrocyte distribution width (RBC) [Ratio] 13.8 % 11.5 - 14.9 % [place] Hematocrit (Bld) [Volume fraction] 41.6 % 36 - 46 % [place] Hemoglobin (Bld) [Mass/Vol] 14.1 g/dL 12 - 16 g/dL [place] MCH (RBC) [Entitic mass] 31.3 pg 26 - 34 pg [place] MCHC (RBC) [Mass/Vol] 33.9 g/dL 31 - 3 7 g/dL [place] MCV (RBC) [Entitic vol] 92.3 fL 80 - 100 fL [place] Platelet mean volume (Bld) [Entitic vol] 6.9 fL 6 - 12 fL [place] Platelets (Bld) [#/Vol] 316 10*3/uL [place] RBC (Bld) [#/Vol] 4.51 10*6/uL 4 - 5.2 m/uL [place] WBC (Bld) [#/Vol] 6.9 10*3/uL [place] WBC (Bld) [#/Vol] NOT REPORTED per 100 WBC [place] EKG 12 Leadon 08-26-2019 Atrial Rate 133 BPM [place], [place] P [employer] 44 degrees [place] P-R Interval 128 ms [place] Q-T Interval 282 ms [place] QRS Duration 84 ms [place] QTc Calculation (Bazett) 419 ms [place] R [employer] 51 degrees [place], [place] T [employer] 16 degrees [place] Ventricular Rate 133 BPM [place] Sinus tachycardia Otherwise normal ECG No previous ECGs available [place], [place] Jose Antonio, Mhpn Incoming E kg Results From [facility] - 08/26/2019 9:03 AM EST Sinus tachycardia Otherwise normal ECG No previous ECGs available [place] APTTon 08-25-2019 aPTT Coag (Bld) [Time] 30.1 s [place] Comment on above: IV Heparin Therapy Range: 62.0-94.0 Amylaseon 08-25-2019 Amylase [Catalytic activity/Vol] 37 U/L 28 - 100 U/L [place] Basic Metabolic Panel w/ Ref alvin to MGon 08-25-2019 Anion gap [Moles/Vol] 11 mmol/L 9 - 17 mmol/L [place] Bun/Cre Ratio NOT REPORTED [place] Calcium [Mass/Vol] 8.6 mg/dL 8.6 - 10. 4 mg/dL [place] Chloride [Moles/Vol] 97 mmol/L Low 98 - 10 7 mmol/L [place] CO2 [Moles/Vol] 26 mmol/L 20 - 31 mmol/L [place] Creatinine [Mass/Vol] 0.81 mg/dL 0.5 - 0.9 mg/dL [place] GFR >60 >60 mL/min [place] GFR Non- >60 >60 mL/min [place] GFR/1.73 sq M predicted among non-blacks MDRD (S/P/Bld) [Vol rate/Area] NOT REPORTED [place] GFR/1.73 sq M predicted among non-blacks MDRD (S/P/Bld) [Vol rate/Area] [place] Comment on above: Average GFR for 60-6 9 years old: 85 mL/min/1.73sq m Chronic Kidney Disease: <60 mL/min/1.73sq m Kidney failure: <15 mL/min/1.73sq m eGFR calculated using average adult body mass. Additional eGFR calculator available at: http://www.Springshot.Ourpalm/multiple_crcl_2012.htm Glucose [Mass/Vol] 121 mg/dL High 70 - 99 mg/dL [place] Potassium [Moles/Vol] 4.2 mmol/L 3.7 - 5.3 mmol/L [place] Sodium [Moles/Vol] 134 mmol/L Low 135 - 144 mmol/L [place] Urea nitrogen [Mass/Vol] 17 mg/dL 8 - 23 mg/dL [place] Brain Natriuretic Peptideon 08-25-2019 Natriuretic peptide B (Bld) [Mass/Vol] Pro-BNP Reference Range: [place], [place] Comment on above: Rule Out: <300 [place] Zone: Age <50 300-450 Age 50-75 300-900 Age >75 300-1800 Usually represents mild to moderate HF but other cardiopulmonary causes cannot be ruled out. Rule In: Age <50 >450 Age 50-75 >900 Age >75 >1800 Natriuretic peptide B (Bld) [Mass/Vol] 42 pg/mL <300 [place] Comment on above: Pro-BNP results rdige ot be compared to BNP results. CBC Auto Differentialon Basophils (Bld) [#/Vol] 0.10 10*3/uL [place] Basophils/100 WBC (Bld) 1 % 0 - 2 % [place] Differential Type NOT REPORTED [place] Eosinophils (Bld) [#/Vol] 0.20 10*3/uL [place] Eosinophils/100 WBC (Bld) 2 % 0 - 4 % [place] Erythrocyte distribution width (RBC) [Ratio] 13.8 % 11.5 - 14.9 % [place] Hematocrit (Bld) [Volume fraction] 47.4 % High 36 - 46 % [place] Hemoglobin (Bld) [Mass/Vol] 15.7 g/dL 12 - 16 g/dL [place] Interpretation and review of laboratory results Abnormal [place] Lymphocytes (Bld) [#/Vol] 0.80 10*3/uL [place] Lymphocytes/100 WBC (Bld) 7 % Low 24 - 44 % [place] MCH (RBC) [Entitic mass] 30.6 pg 26 - 34 pg [place] MCHC (RBC) [Mass/Vol] 33.2 g/dL 31 - 3 7 g/dL [place] MCV (RBC) [Entitic vol] 92.0 fL 80 - 100 fL [place] Monocytes (Bld) [#/Vol] 0.50 10*3/uL [place] Monocytes/100 WBC (Bld) 4 % 1 - 7 % [place] Platelet mean volume (Bld) [Entitic vol] 7.2 fL 6 - 12 fL [place] Platelets (Bld) [#/Vol] NOT REPORTED [place] Platelets (Bld) [#/Vol] 363 10*3/uL [place] RBC (Bld) [#/Vol] 5.15 10*6/uL 4 - 5.2 m/uL [place] RBC morphology finding Nom (Bld) NOT REPORTED [place] Segmented neutrophils/100 WBC (Bld) 86 % High 36 - 66 % [place] Segs Absolute 10.40 High [place] WBC (Bld) [#/Vol] 12.0 10*3/uL [place] WBC (Bld) [#/Vol] NOT REPORTED per 100 WBC [place] WBC Morphology NOT REPORTED [place] Hepatic Function Panelon Albumin [Mass/Vol] 4 g/dL 3.5 - 5.2 g/dL [place] Albumin/Globulin [Mass ratio] NOT REPORTED [place] ALP [Catalytic activity/Vol] 67 U/L 35 - 104 U/L [place] ALT [Catalytic activity/Vol] 19 U/L 5 - 33 U/L [place] AST [Catalytic activity/Vol] 12 U/L <32 [place] Bilirubin Ql (U) 0.53 mg/dL 0.3 - 1.2 mg/dL [place] Bilirubin, Indirect 0.39 mg/dL 0 - 1 mg/dL [place] Bilirubin.direct [Mass/Vol] 0.14 mg/dL <0.31 [place] Globulin (S) [Mass/Vol] NOT REPORTED 1.5 - 3.8 g/dL [place] Protein [Mass/Vol] 7.4 g/dL 6.4 - 8.3 g/dL [place] Lipaseon 08-25-2019 Lipase [Catalytic activity/Vol] 12 U/L Low 13 - 60 U/L [place] Otheron 08-25-2019 Interpretation and review of laboratory results Abnormal [place] Immature granulocytes (Bld) [#/Vol] NOT REPORTED 0 % [place] Protime-INRon 08-25-2019 INR Coag (PPP) [Relative time] 1.1 {INR} [place], [place] Comment on above: Non-therapeutic Range: INR = 0.9-1.2 Therapeutic Range: Moderate Anticoagulant Intensity: INR = 2.0-3.0 High Anticoagulant Intensity: INR = 2.5-3.5 PT Coag (PPP) [Time] 13.6 s [place] Rapid influenza A/B antigens on 08-25-2019 Direct Exam Negative [place] Direct Exam Positive Abnormal [place] Interpretation and review of laboratory results Abnormal [place] Special Requests NOT REPORTED [place] Specimen Description .NASOPHARYNGEAL SWAB [place] Troponinon 08-25-2019 Troponin I.cardiac [Mass/Vol] NOT REPORTED [place] Troponin T.cardiac [Mass/Vol] NOT REPORTED <0.03 ng/mL [place] Troponin, High Sensitivity 9 ng/L 0 - 14 ng/L [place] Comment on above: High Sensitivity Troponin [...] diaphragm. No evidence of acute osseous abnormality. [place] Jose Antonio, Mhpn Incoming Radiant Results From [facility] - 08/25/2019 4:43 PM EST EXAMINATION: ONE [...] vascular congestion. Interstitial edema appears slightly improved. [place] Unchanged mild cardiomegaly and vascular congestion. Interstitial edema appears slightly improved. [place] Basic Metabolic Profon 08-10 Anion gap [Moles/Vol] 11 mmol/L 9 - 17 mmol/L [place] Bun/Cre Ratio NOT REPORTED [place] Calcium [Mass/Vol] 7.7 mg/dL Low 8.6 - 10. 4 mg/dL [place] Chloride [Moles/Vol] 101 mmol/L 98 - 10 7 mmol/L [place] CO2 [Moles/Vol] 28 mmol/L 20 - 31 mmol/L [place] Creatinine [Mass/Vol] 0.75 mg/dL 0.5 - 0.9 mg/dL [place] GFR >60 >60 mL/min [place] GFR Non- >60 >60 mL/min [place] GFR/1.73 sq M predicted among non-blacks MDRD (S/P/Bld) [Vol rate/Area] [place] Comment on above: Average GFR for 60-6 9 years old: 85 mL/min/1.73sq m Chronic Kidney Disease: <60 mL/min/1.73sq m Kidney failure: <15 mL/min/1.73sq m eGFR calculated using average adult body mass. Additional eGFR calculator available at: http://www.SpringshotLifeLock/multiple_crcl_2012.htm GFR/1.73 sq M predicted among non-blacks MDRD (S/P/Bld) [Vol rate/Area] NOT REPORTED [place] Glucose [Mass/Vol] 162 mg/dL High 70 - 99 mg/dL [place] Interpretation and review of laboratory results Abnormal [place] Potassium [Moles/Vol] 4.1 mmol/L 3.7 - 5.3 mmol/L [place] Sodium [Moles/Vol] 140 mmol/L 135 - 144 mmol/L [place] Urea nitrogen [Mass/Vol] 29 mg/dL High 8 - 23 mg/dL [place] CBCon 08-10-2019 Erythrocyte distribution width (RBC) [Ratio] 13.4 % 11.5 - 14.9 % [place] Hematocrit (Bld) [Volume fraction] 41.6 % 36 - 46 % [place] Hemoglobin (Bld) [Mass/Vol] 13.9 g/dL 12 - 16 g/dL [place] Interpretation and review of laboratory results Abnormal [place] MCH (RBC) [Entitic mass] 31.1 pg 26 - 34 pg [place] MCHC (RBC) [Mass/Vol] 33.4 g/dL 31 - 3 7 g/dL [place] MCV (RBC) [Entitic vol] 93.2 fL 80 - 100 fL [place] Platelet mean volume (Bld) [Entitic vol] 7.6 fL 6 - 12 fL [place] Platelets (Bld) [#/Vol] 326 10*3/uL [place] RBC (Bld) [#/Vol] 4.46 10*6/uL 4 - 5.2 m/uL [place] WBC (Bld) [#/Vol] NOT REPORTED per 100 WBC [place] WBC (Bld) [#/Vol] 13.2 10*3/uL [place] XR CHEST STANDARD (2 VW)on 0 [...] the costophrenic angles on the lateral view. [place] Jose Antonio, Mhpn Incoming Radiant Results From [facility] - 08/10/2019 9:50 AM EST EXAMINATION: TWO [...] radiographic follow-up is recommended to ensure clearance. [place] Cardiomegaly with mi ld vascular congestion noted concerning for mild interstitial pulmonary edema. This is new from the previous exam and continued radiographic follow-up is recommended to ensure clearance. [place] Basic Metabolic Profon 08-09 Anion gap [Moles/Vol] 11 mmol/L 9 - 17 mmol/L [place] Bun/Cre Ratio NOT REPORTED [facility] [place] Calcium [Mass/Vol] 7.6 mg/dL Low 8.6 - 10. 4 mg/dL [place] Chloride [Moles/Vol] 100 mmol/L 98 - 10 7 mmol/L [place] CO2 [Moles/Vol] 28 mmol/L 20 - 31 mmol/L [place] Creatinine [Mass/Vol] 0.86 mg/dL 0.5 - 0.9 mg/dL [place] GFR >60 >60 mL/min [place] GFR Non- >60 >60 mL/min [place] GFR/1.73 sq M predicted among non-blacks MDRD (S/P/Bld) [Vol rate/Area] NOT REPORTED [place] GFR/1.73 sq M predicted among non-blacks MDRD (S/P/Bld) [Vol rate/Area] [place] Comment on above: Average GFR for 60-6 9 years old: 85 mL/min/1.73sq m Chronic Kidney Disease: <60 mL/min/1.73sq m Kidney failure: <15 mL/min/1.73sq m eGFR calculated using average adult body mass. Additional eGFR calculator available at: http://www.Paomianba.com/multiple_crcl_2012.htm Glucose [Mass/Vol] 140 mg/dL High 70 - 99 mg/dL [place] Interpretation and review of laboratory results Abnormal [place] Potassium [Moles/Vol] 4.5 mmol/L 3.7 - 5.3 mmol/L [place] Sodium [Moles/Vol] 139 mmol/L 135 - 144 mmol/L [place] Urea nitrogen [Mass/Vol] 29 mg/dL High 8 - 23 mg/dL [place] CBCon 08-09-2019 Erythrocyte distribution width (RBC) [Ratio] 13.6 % 11.5 - 14.9 % [place] Hematocrit (Bld) [Volume fraction] 40.1 % 36 - 46 % [place] Hemoglobin (Bld) [Mass/Vol] 13.5 g/dL 12 - 16 g/dL [place] Interpretation and review of laboratory results Abnormal [place] MCH (RBC) [Entitic mass] 31.2 pg 26 - 34 pg [place] MCHC (RBC) [Mass/Vol] 33.7 g/dL 31 - 3 7 g/dL [place] MCV (RBC) [Entitic vol] 92.6 fL 80 - 100 fL [place] Platelet mean volume (Bld) [Entitic vol] 7.3 fL 6 - 12 fL [place] Platelets (Bld) [#/Vol] 334 10*3/uL [place] RBC (Bld) [#/Vol] 4.34 10*6/uL 4 - 5.2 m/uL [place] WBC (Bld) [#/Vol] 15.9 10*3/uL [place] WBC (Bld) [#/Vol] NOT REPORTED per 100 WBC [place] Fungal stainon 08-09-2019 Direct Exam NO FUNGAL ELEMENTS SEEN [place] Special Requests NOT REPORTED [place] Specimen Description .BRONCHIAL WASHINGS [place] Otheron 08-09-2019 Direct Exam Positive Abnormal [place] Respiratory Cultureon 2019 Culture NORMAL RESPIRATORY CHERYL HEAVY GROWTH [place] Direct Exam FEW NEUTROPHILS Abnormal [place] Interpretation and review of laboratory results Abnormal [place] Special Requests NOT REPORTED [place] Specimen Description .BRONCHIAL WASHINGS [place] Surgical Pathologyon 020 Surgical Pathology Report [id number] [place] [address] SURGICAL PATHOLOGY REPORT Patient Name: CAMERON US MR#: [id number] Specimen #[id number] Final Diagnosis Parts A & B. Lungs, bronchial washings (cytology and cell block): - Adequate for evaluation. - Benign squamous cells and reactive bronchial epithelial cells with macrophages, mixed inflammation, and mucinous debris. - Negative for malignancy. Alin Valencia M.D. Electronically Signed Out vvg08/09/2019 Clinical Information COPD; bronchoscopy Source: A: Bronchial [...] examination performed and supports the diagnostic impression. [place] Basic Metabolic Profon 08-08 Anion gap [Moles/Vol] 8 mmol/L Low 9 - 17 mmol/L [place] Bun/Cre Ratio NOT REPORTED [place] Calcium [Mass/Vol] 8.0 mg/dL Low 8.6 - 10. 4 mg/dL [place] Chloride [Moles/Vol] 106 mmol/L 98 - 10 7 mmol/L [place] CO2 [Moles/Vol] 26 mmol/L 20 - 31 mmol/L [place] Creatinine [Mass/Vol] 0.75 mg/dL 0.5 - 0.9 mg/dL [place] GFR >60 >60 mL/min [place] GFR Non- >60 >60 mL/min [place] GFR/1.73 sq M predicted among non-blacks MDRD (S/P/Bld) [Vol rate/Area] NOT REPORTED [place] GFR/1.73 sq M predicted among non-blacks MDRD (S/P/Bld) [Vol rate/Area] [place] Comment on above: Average GFR for 60-6 9 years old: 85 mL/min/1.73sq m Chronic Kidney Disease: <60 mL/min/1.73sq m Kidney failure: <15 mL/min/1.73sq m eGFR calculated using average adult body mass. Additional eGFR calculator available at: http://www.Springshot.Ourpalm/multiple_crcl_2012.htm Glucose [Mass/Vol] 154 mg/dL High 70 - 99 mg/dL [place] Interpretation and review of laboratory results Abnormal [place] Potassium [Moles/Vol] 5.1 mmol/L 3.7 - 5.3 mmol/L [place] Sodium [Moles/Vol] 140 mmol/L 135 - 144 mmol/L [place] Urea nitrogen [Mass/Vol] 32 mg/dL High 8 - 23 mg/dL [place] Body fluid cell counton 07-23 Appearance, Fluid TURBID [facility] [place] Color, Fluid PALE YELLOW [place] RBC, Fluid 294 /mm3 [place] Specimen type Nom (Spec) .BRONCHIAL WASHINGS [place] WBC, Fluid 113 /mm3 [place] CBCon 08-08-2019 Erythrocyte distribution width (RBC) [Ratio] 13.5 % 11.5 - 14.9 % [place] Hematocrit (Bld) [Volume fraction] 42.1 % 36 - 46 % [place] Hemoglobin (Bld) [Mass/Vol] 14.0 g/dL 12 - 16 g/dL [place] Interpretation and review of laboratory results Abnormal [place] MCH (RBC) [Entitic mass] 30.7 pg 26 - 34 pg [place] MCHC (RBC) [Mass/Vol] 33.2 g/dL 31 - 3 7 g/dL [place] MCV (RBC) [Entitic vol] 92.4 fL 80 - 100 fL [place] Platelet mean volume (Bld) [Entitic vol] 7.2 fL 6 - 12 fL [place] Platelets (Bld) [#/Vol] 355 10*3/uL [place] RBC (Bld) [#/Vol] 4.55 10*6/uL 4 - 5.2 m/uL [place] WBC (Bld) [#/Vol] 18.5 10*3/uL [place] WBC (Bld) [#/Vol] NOT REPORTED per 100 WBC [place] Differential, Body Fluidon 0 08-08-2019 Basos, Fluid 0 % [place] Eos, Fluid 7 % High 0 [place] Fluid Diff Comment TO BE REVIEWED BY PATHOLOGIST [place] Comment on above: Reviewed by patholog ist: Justin J. Fanelly, D.O. SLIDE REVIEWED. MACROPHAGES, NEUTROPHILS WITH RARE LYMPHOCYTES AND EOSINOPHIILS NOTED. Interpretation and review of laboratory results Abnormal [place] Lymphocytes, Body Fluid 7 % High 0 [place] Monocyte Count, Fluid 40 % High 0 [place], [place] Neutrophil Count, Fluid 46 % High 0 [place], [place] Other Cells, Fluid 0 % [place] Basic Metabolic Profon 08-07 Anion gap [Moles/Vol] 11 mmol/L 9 - 17 mmol/L [place] Bun/Cre Ratio NOT REPORTED [place] Calcium [Mass/Vol] 8.1 mg/dL Low 8.6 - 10. 4 mg/dL [place] Chloride [Moles/Vol] 105 mmol/L 98 - 10 7 mmol/L [place] CO2 [Moles/Vol] 24 mmol/L 20 - 31 mmol/L [place] Creatinine [Mass/Vol] 0.93 mg/dL High 0.5 - 0.9 mg/dL [place] GFR >60 >60 mL/min [place] GFR Non- >60 >60 mL/min [place] GFR/1.73 sq M predicted among non-blacks MDRD (S/P/Bld) [Vol rate/Area] NOT REPORTED [place] GFR/1.73 sq M predicted among non-blacks MDRD (S/P/Bld) [Vol rate/Area] [place], [place] Comment on above: Average GFR for 60-6 9 years old: 85 mL/min/1.73sq m Chronic Kidney Disease: <60 mL/min/1.73sq m Kidney failure: <15 mL/min/1.73sq m eGFR calculated using average adult body mass. Additional eGFR calculator available at: http://www.Springshot.Ourpalm/multiple_crcl_2012.htm Glucose [Mass/Vol] 172 mg/dL High 70 - 99 mg/dL [place] Interpretation and review of laboratory results Abnormal [place] Potassium [Moles/Vol] 5.1 mmol/L 3.7 - 5.3 mmol/L [place] Sodium [Moles/Vol] 140 mmol/L 135 - 144 mmol/L [place] Urea nitrogen [Mass/Vol] 26 mg/dL High 8 - 23 mg/dL [place] CBCon 08-07-2019 Erythrocyte distribution width (RBC) [Ratio] 13.8 % 11.5 - 14.9 % [place] Hematocrit (Bld) [Volume fraction] 42.8 % 36 - 46 % [place] Hemoglobin (Bld) [Mass/Vol] 14.1 g/dL 12 - 16 g/dL [place] Interpretation and review of laboratory results Abnormal [place] MCH (RBC) [Entitic mass] 30.8 pg 26 - 34 pg [place] MCHC (RBC) [Mass/Vol] 33.0 g/dL 31 - 3 7 g/dL [place] MCV (RBC) [Entitic vol] 93.1 fL 80 - 100 fL [place] Platelet mean volume (Bld) [Entitic vol] 7.5 fL 6 - 12 fL [place] Platelets (Bld) [#/Vol] 367 10*3/uL [place] RBC (Bld) [#/Vol] 4.59 10*6/uL 4 - 5.2 m/uL [place] WBC (Bld) [#/Vol] 20.0 10*3/uL [place] WBC (Bld) [#/Vol] NOT REPORTED per 100 WBC [place] Basic Metabolic Profon 08-06 Anion gap [Moles/Vol] 10 mmol/L 9 - 17 mmol/L [place] Bun/Cre Ratio NOT [facility]PORTED [facility] [place] Calcium [Mass/Vol] 8.2 mg/dL Low 8.6 - 10. 4 mg/dL [place] Chloride [Moles/Vol] 102 mmol/L 98 - 10 7 mmol/L [place] CO2 [Moles/Vol] 25 mmol/L 20 - 31 mmol/L [place] Creatinine [Mass/Vol] 0.75 mg/dL 0.5 - 0.9 mg/dL [place] GFR >60 >60 mL/min [place] GFR Non- >60 >60 mL/min [place] GFR/1.73 sq M predicted among non-blacks MDRD (S/P/Bld) [Vol rate/Area] [place], [place] Comment on above: Average GFR for 60-6 9 years old: 85 mL/min/1.73sq m Chronic Kidney Disease: <60 mL/min/1.73sq m Kidney failure: <15 mL/min/1.73sq m eGFR calculated using average adult body mass. Additional eGFR calculator available at: http://www.Paomianba.com/multiple_crcl_2012.htm GFR/1.73 sq M predicted among non-blacks MDRD (S/P/Bld) [Vol rate/Area] NOT REPORTED [place] Glucose [Mass/Vol] 166 mg/dL High 70 - 99 mg/dL [place] Interpretation and review of laboratory results Abnormal [place] Potassium [Moles/Vol] 4.1 mmol/L 3.7 - 5.3 mmol/L [place] Sodium [Moles/Vol] 137 mmol/L 135 - 144 mmol/L [place] Urea nitrogen [Mass/Vol] 21 mg/dL 8 - 23 mg/dL [place] CBCon 08-06-2019 Erythrocyte distribution width (RBC) [Ratio] 13.5 % 11.5 - 14.9 % [place] Hematocrit (Bld) [Volume fraction] 43.2 % 36 - 46 % [place] Hemoglobin (Bld) [Mass/Vol] 14.5 g/dL 12 - 16 g/dL [place] MCH (RBC) [Entitic mass] 31.1 pg 26 - 34 pg [place] MCHC (RBC) [Mass/Vol] 33.5 g/dL 31 - 3 7 g/dL [place] MCV (RBC) [Entitic vol] 92.7 fL 80 - 100 fL [place] Platelet mean volume (Bld) [Entitic vol] 7.2 fL 6 - 12 fL [place] Platelets (Bld) [#/Vol] 366 10*3/uL [place] RBC (Bld) [#/Vol] 4.66 10*6/uL 4 - 5.2 m/uL [place] WBC (Bld) [#/Vol] NOT REPORTED per 100 WBC [place] WBC (Bld) [#/Vol] 7.9 10*3/uL [place] Basic Metabolic Panelon 07-23 Anion gap [Moles/Vol] 14 mmol/L 9 - 17 mmol/L [place] Bun/Cre Ratio NOT REPORTED [place], [place] Calcium [Mass/Vol] 8.6 mg/dL 8.6 - 10. 4 mg/dL [place] Chloride [Moles/Vol] 102 mmol/L 98 - 10 7 mmol/L [place] CO2 [Moles/Vol] 25 mmol/L 20 - 31 mmol/L [place] Creatinine [Mass/Vol] 0.85 mg/dL 0.5 - 0.9 mg/dL [place] GFR >60 >60 mL/min [place] GFR Non- >60 >60 mL/min [place] GFR/1.73 sq M predicted among non-blacks MDRD (S/P/Bld) [Vol rate/Area] [place], [place] Comment on above: Average GFR for 60-6 9 years old: 85 mL/min/1.73sq m Chronic Kidney Disease: <60 mL/min/1.73sq m Kidney failure: <15 mL/min/1.73sq m eGFR calculated using average adult body mass. Additional eGFR calculator available at: http://[email or web address] GFR/1.73 sq M predicted among non-blacks MDRD (S/P/Bld) [Vol rate/Area] NOT REPORTED [place] Glucose [Mass/Vol] 97 mg/dL 70 - 99 mg/dL [place] Potassium [Moles/Vol] 4.5 mmol/L 3.7 - 5.3 mmol/L [place] Sodium [Moles/Vol] 141 mmol/L 135 - 144 mmol/L [place] Urea nitrogen [Mass/Vol] 19 mg/dL 8 - 23 mg/dL [place] CBC Auto Differentialon 07-23 Basophils (Bld) [#/Vol] 0.10 10*3/uL [place] Basophils/100 WBC (Bld) 1 % 0 - 2 % [place] Differential Type NOT REPORTED [place] Eosinophils (Bld) [#/Vol] 0.80 10*3/uL [place] Eosinophils/100 WBC (Bld) 9 % High 0 - 4 % [place] Erythrocyte distribution width (RBC) [Ratio] 13.2 % 11.5 - 14.9 % [place] Hematocrit (Bld) [Volume fraction] 46.8 % High 36 - 46 % [place] Hemoglobin (Bld) [Mass/Vol] 15.6 g/dL 12 - 16 g/dL [place] Interpretation and review of laboratory results Abnormal [place] Lymphocytes (Bld) [#/Vol] 2.70 10*3/uL [place] Lymphocytes/100 WBC (Bld) 30 % 24 - 44 % [place] MCH (RBC) [Entitic mass] 31.1 pg 26 - 34 pg [place] MCHC (RBC) [Mass/Vol] 33.4 g/dL 31 - 3 7 g/dL [place] MCV (RBC) [Entitic vol] 93.1 fL 80 - 100 fL [place] Monocytes (Bld) [#/Vol] 0.70 10*3/uL [place] Monocytes/100 WBC (Bld) 8 % High 1 - 7 % [place] Platelet mean volume (Bld) [Entitic vol] 7.0 fL 6 - 12 fL [place] Platelets (Bld) [#/Vol] NOT REPORTED [place] Platelets (Bld) [#/Vol] 396 10*3/uL [place] RBC (Bld) [#/Vol] 5.02 10*6/uL 4 - 5.2 m/uL [place] RBC morphology finding Nom (Bld) NOT REPORTED [place] Segmented neutrophils/100 WBC (Bld) 52 % 36 - 66 % [place] Segs Absolute 4.80 [place] WBC (Bld) [#/Vol] NOT REPORTED per 100 WBC [place] WBC (Bld) [#/Vol] 9.2 10*3/uL [place] WBC Morphology NOT REPORTED [place] D-Dimer, Quantitativeon 07-23 D-Dimer, Quant <0.27 [place] Comment on above: When combined with [...] 08-05-2019 Immature granulocytes (Bld) [#/Vol] NOT REPORTED [facility] Procalcitonin 0.06 ng/mL <0.09 [facility] [place] Comment on above: Suspected Sepsis: 0.09-0.49 ng/mL [...] entered into the Change in Procalcitonin Calculator ([email or web address]) to determine the patient's Mortality Risk Prognosis XR CHEST PORTABLEon 08-05-19 20 Jose Antonio, Mhpn Incoming Radiant Results From [employer] - 08/05/2019 3:07 PM EST EXAMINATION: ONE [...] identified. IMPRESSION: No acute airspace disease identified. [facility]: ONE XRA Y VIEW OF THE CHEST 08/05/2019 2:02 pm COMPARISON: None. HISTORY: ORDERING SYSTEM PROVIDED HISTORY: Chest Pain TECHNOLOGIST PROVIDED HISTORY: Chest Pain Reason for Exam: CHEST PAIN Acuity: Unknown Type of Exam: Unknown FINDINGS: Mild cardiac silhouette enlargement. Generalized interstitial prominence without consolidation, pneumothorax or evidence for edema. No effusion. No acute osseous abnormality identified. [place] No acute airspace disease identified. [place] Glucose, Fastingon 9 Glucose [Mass/Vol] 93 mg/dL Normal 70-99 [facility] Comment on above: Performed By: #### G JOSE, LIPRF, TSH #### [facility] [address] [place] [address] [phone] Injection Molding Engineer: Beau Troncoso MD Glucose [Mass/Vol] 93 mg/dL 70 - 99 mg/dL [place] Lipid Prof, Fastingon 2018 Cholesterol [Mass/Vol] 275 mg/dL High <[address] [facility] Comment on above: Result Comment: Cholesterol Guidelines: <200 Desirable 200-240 Borderline >240 Undesirable Performed By: #### G JOSE LIPRF, TSH #### [facility] [address] [place] [address] [phone] Injection Molding Engineer: Beau Troncoso MD Cholesterol in HDL [Mass/Vol] 48 mg/dL Normal >40 [facility] Comment on above: Result Comment: HDL Guidelines: <40 Undesirable 40-59 Borderline >59 Desirable Performed By: #### MELBA CLAYRF, TSH #### [facility] [address] [place] [id number] Injection Molding Engineer: Beau Troncoso MD Cholesterol in LDL [Mass/Vol] 196 mg/dL High 0-130 [facility] Comment on above: Result Comment: LDL Guidelines: <100 Desirable 100-129 Near to/above Desirable 130-159 Borderline >159 Undesirable Direct (measured) LDL and calculated LDL are not interchangeable tests. Performed By: #### G JOSE, LIPRF, TSH #### [facility] [address] [place] [id number] Injection Molding Engineer: Beau Troncoso MD Cholesterol.total/Chol esterol in HDL [Mass ratio] 5.7 {ratio} High <5 [facility] Comment on above: Performed By: #### G JOSE, LIPRF, TSH #### [facility] [address] [place], [place] [phone] Injection Molding Engineer: Beau Troncoso MD Triglyceride,Fasting 153 mg/dL High <150 [facility] Comment on above: Result Comment: Triglyceride Guidelines: <150 Desirable 150-199 Borderline 200-499 High >499 Very high Based on AHA Guidelines for fasting triglyceride, March 2012. Performed By: #### G JOSE LIPRF, TSH #### [facility] [address] [place], [place] [phone] Injection Molding Engineer: Beau Troncoso MD Cholesterol in VLDL [Mass/Vol] NOT REPORTED Normal 1-30 [facility] Comment on above: Performed By: #### G CHUCK GARCIA, TSH #### [facility] [place], [place] [phone] Injection Molding Engineer: Beau Troncoso MD Lipid, Fastingon 05-11-2019 Cholesterol [Mass/Vol] 275 mg/dL High <200 [place] Comment on above: Cholesterol Guidelines: <200 Desirable 200-240 Borderline >240 Undesirable Cholesterol in HDL [Mass/Vol] 48 mg/dL >40 [place] Comment on above: HDL Guidelines: <40 Undesirable 40-59 Borderline >59 Desirable Cholesterol in LDL [Mass/Vol] 196 mg/dL High 0 - 130 mg/dL [place] Comment on above: LDL Guidelines: <100 Desirable 100-129 Near to/above Desirable 130-159 Borderline >159 Undesirable Direct (measured) LDL and calculated LDL are not interchangeable tests. Cholesterol in VLDL [Mass/Vol] NOT REPORTED High 1 - 30 mg/dL [place] Cholesterol.total/Chol esterol in HDL [Mass ratio] 5.7 {ratio} High <5 [place] Interpretation and review of laboratory results Abnormal [place] Triglyceride, Fasting 153 mg/dL High <150 [place] Comment on above: Triglyceride Guidelines: <150 Desirable 150-199 Borderline 200-499 High >499 Very high Based on AHA Guidelines for fasting triglyceride, March 2012. TSHon 05-11-2019 Interpretation and review of laboratory results Abnormal [facility] [place] TSH Qn 25.72 m[IU]/L [place] Thyroid Stim. Horm.on 2018 TSH Qn 25.72 m[IU]/L High 0.30-5.00 [facility] Comment on above: Performed By: #### G LUF, LIPRF, TSH #### [facility] [address] [place], [place] [phone] Injection Molding Engineer: Beau Troncoso MD Vital Signs Date Time Vital Sign Value Performing Clinician Facility 07-30-2023 10:47-0500 Body height 172.7 cm [facility] [facility] 07-30-2023 10:47-0500 Body mass index (BMI) [Ratio] 36.74 kg/m2 [employer] [facility] 07-30-2023 10:47-0500 Body temperature 98.1 [degF] [employer] [facility] 07-30-2023 10:47-0500 Body weight 109.59 kg [employer] [facility] 07-30-2023 10:47-0500 Diastolic blood pressure 80 mm[Hg] [employer] [facility] 07-30-2023 10:47-0500 Heart rate 89 /min [employer] Work Phone: [facility] 07-30-2023 10:47-0500 SaO2% (BldA) [Mass fraction] 95 % [employer] [facility] 07-30-2023 10:47-0500 Systolic blood pressure 130 mm[Hg] [employer] Work Phone: [facility] 11-22-2020 12:40-0400 Respiratory rate 29 /min Heena John MD [facility] Phone: 11-22-2020 12:40-0400 SaO2% (BldA) [Mass fraction] 100 % Heena John MD [facility] Phone: 11-22-2020 12:30-0400 Diastolic blood pressure 58 mm[Hg] Heena John MD [facility] Phone: 11-22-2020 12:30-0400 Heart rate 85 /min Heena John MD [facility] Phone: 11-22-2020 12:30-0400 Systolic blood pressure 108 mm[Hg] Heena John MD [facility] Phone: 11-22-2020 12:09-0400 Body height 175.3 cm Heena John MD [employer] Phone: 11-22-2020 12:09-0400 Body mass index (BMI) [Ratio] 33.97 kg/m2 Heena John MD [facility] Phone: 11-22-2020 12:09-0400 Body temperature 97.3 [degF] Heena John MD [facility] Phone: 11-22-2020 12:09-0400 Body weight 104.33 kg Heena John MD [facility] Phone: 11-02-2019 13:15-0400 BP Diastolic 61 mm[Hg] Warren [place] , [place] 11-02-2019 13:15-0400 BP Systolic 118 mm[Hg] [place] , [place] 11-02-2019 13:15-0400 Pulse (Heart Rate) 87 /min Warren [place], [place] 11-02-2019 13:15-0400 Pulse Oximetry 97 % Warren [place] , [place] 11-02-2019 13:15-0400 Respiratory Rate 17 /min Warren [facility] [place] 11-02-2019 10:12-0400 BMI (Body Mass Index) 29.53 kg/m2 Warren [facility]ivas [facility] 11-02-2019 10:12-0400 Body Temperature 98.91 [degF] [facility] [place] 11-02-2019 10:12-0400 Body weight 90.72 kg [facility] [place] 10-08-2019 11:51-0400 Pulse [facility]xim[facility] 98 % [facility] [place] 10-08-2019 11:51-0400 Respiratory Rate 12 /min [facility], [place] 10-08-2019 08:42-0400 Body Temperature 98.1 [degF] [facility], [place] 10-08-2019 08:42-0400 BP Diastolic 70 mm[Hg] [facility] , [place] 10-08-2019 08:42-0400 BP Systolic 137 mm[Hg] [facility] , [place] 10-08-2019 08:42-0400 Pulse (Heart Rate) 99 /min [facility], [place] 10-08-2019 06:30-0400 BMI (Body Mass Index) 32.43 kg/m2 [facility], [place] 10-08-2019 06:30-0400 Body weight 99.6 kg [facility] , [place] 10-05-2019 18:01-0400 Height 175.3 cm [facility] , [place] 09-15-2019 18:31-0400 Body Temperature 98.91 [degF] [facility], [place] 09-15-2019 18:31-0400 BP Diastolic 63 mm[Hg] [facility] , [place] 09-15-2019 18:31-0400 BP Systolic 133 mm[Hg] [facility] , [place] 09-15-2019 18:31-0400 Pulse (Heart Rate) 101 /min [facility], [place] 09-15-2019 18:31-0400 Pulse Oximetry 93 % [facility] , [place] 09-15-2019 18:31-0400 Respiratory Rate 18 /min [facility] [place] 09-15-2019 17:26-0400 BMI (Body Mass Index) 32.19 kg/m2 Levy Holm [facility], [place] 09-15-2019 17:26-0400 Body weight 98.88 kg Levy Felix [facility] , [place] 08-29-2019 15:11-0400 Pulse Oximetry 95 % [facility] [place] 08-29-2019 14:42-0400 Body Temperature 98.29 [degF] [facility] [place] 08-29-2019 14:42-0400 BP Diastolic 65 mm[Hg] [facility] [place] , [place] 08-29-2019 14:42-0400 BP Systolic 133 mm[Hg] Jacob [facility] , [place] 08-29-2019 14:42-0400 Pulse (Heart Rate) 84 /min Jacob [facility], [place] 08-29-2019 14:42-0400 Respiratory Rate 16 /min Jacob [facility] , [place] 08-29-2019 06:34-0400 BMI (Body Mass Index) 32.17 kg/m2 Jacob Granado [facility], [place] 08-29-2019 06:34-0400 Body weight 98.8 kg [facility] [place] 08-25-2019 15:11-0500 Height 175.3 cm [facility] [place] 08-10-2019 14:26-0500 Body Temperature 97.2 [degF] [facility]ena [facility] [place] 08-10-2019 14:26-0500 BP Diastolic 81 mm[Hg] Heena John [facility] [place] , [place] 08-10-2019 14:26-0500 BP Systolic 159 mm[Hg] Heena John [facility] [place] , [place] 08-10-2019 14:26-0500 Pulse (Heart Rate) 86 /min Heena John [facility], [place] 08-10-2019 14:26-0500 Pulse Oximetry 94 % Heena John [facility] , [place] 08-10-2019 14:26-0500 Respiratory Rate 16 /min Heena John [facility], [place] 08-07-2019 06:00-0500 BMI (Body Mass Index) 31.58 kg/m2 Heena Holm [facility], [place] 08-07-2019 06:00-0500 Body weight 97 kg Heena Holm [facility] , [place] 08-05-2019 16:57-0500 Height 175.3 cm Heena John [facility] , [place] Encounters Encounter Date Encounter Type Care Provider Facility Start: 08-03-2023 End: 08-04-2023 ambulatory Belle Monet MD Facility:[facility] Start: 07-30-2023 End: 07-30-2023 ambulatory LOUIE PAUL [facility] Start: 07-30-2023 End: 07-30-2023 Office outpatient visit 25 minutes Louie Paul DO Work Phone: [facility] - [facility] Comment on above: Chronic obstructive pulmonary disease, unspecified COPD type ([facility]) (Primary Dx); Right-sided low back pain without sciatica, unspecified chronicity; Postoperative hypothyroidism; Obstructive sleep apnea Start: 07-19-2023 Refill Louie villa [facility] Comment on above: Acute exacerbation o f chronic obstructive pulmonary disease (COPD) ([facility]) Start: 07-14-2023 Refill Louie villa DO Work Phone: [facility] - Family Medicine [...] Start: 03-02-2021 End: 03-02-[address] CARISSA JACBO Facility:[facility]1 Start: 11-22-2020 End: 11-22-2020 Emergency department patient visit CADEN M [facility] Start: 11-22-2020 End: 11-22-2020 Emergency department patient visit Heena John MD [facility] ED Comment on above: COPD exacerbation (H CC) (Primary Dx) Start: 04-18-2020 End: 04-21-2020 ambulatory [facility] Start: 04-16-2020 End: 04-17-2020 Patient encounter procedure [facility] Start: 04-16-2020 End: 04-16-2020 Subsequent [facility] Comment on above: Dizziness; Polydipsia Start: 03-23-2020 End: 03-26-2020 ambulatory ENESI O CORA [facility] Start: 03-23-2020 End: 03-25-2020 Subsequent hospital visit by physician [facility] Rm 119 [facility] MRI Comment on above: Osteoarthritis of ri t acromioclavicular joint Start: 11-02-2019 End: 11-02-2019 Emergency department patient visit Warren Olivas Work Phone: [facility] ED Comment on above: COPD exacerbation (H CC) (Primary Dx) Start: 10-05-2019 End: 10-08-2019 Evaluation and management of inpatient Forest Childs Work Phone: [facility] Progressive Care Comment on above: COPD exacerbation (H CC) (Primary Dx); Acute respiratory failure with hypoxia (HCC) Start: 09-15-2019 End: 09-15-2019 Emergency department patient visit Levytanya Hermosillosnow Work Phone: [facility] ED Comment on above: Cough (Primary Dx); Abnormal CXR; Viral URI Start: 08-25-2019 End: 08-29-2019 Evaluation and management of inpatient Jacob Granado Work Phone: [facility] Med Surg Comment on above: COPD exacerbation (H CC) (Primary Dx); Influenza with respiratory manifestation other than pneumonia; COPD with acute exacerbation (HCC) Start: 08-05-2019 End: 08-10-2019 Evaluation and management of inpatient Heena Carlos A John [facility] Med Surg Comment on above: COPD exacerbation (H CC) (Primary Dx); Cough; Moderate persistent asthma with acute exacerbation Start: 05-11-2019 End: 05-12-2019 Patient encounter procedure NAJMA KEN [facility] Start: 05-11-2019 End: 05-11-2019 Subsequent hospital visit by physician Najma PATEL [place] [facility] Comment on above: Encounter for screen ing for diabetes mellitus; Screening for hyperlipidemia Procedures Date Procedure Procedure Detail Performing Clinician Start: 07-30-2023 Adult depression scr eening assessment 140 Proof DO Work Phone: Start: 05-11-2023 Adult depression scr eening assessment 140 Proof DO Work Phone: Start: 11-22-2020 Radiologic exam ches t single view Heena John MD Start: 11-22-2020 Basic metabolic pane l calcium total Heena John MD Start: 11-22-2020 COVID-19, RAPID Heena John MD Start: 04-18-2020 Ct head/brain w/o co ntrast material HARRISONVAPRASAD JESUS MANUEL Start: 04-16-2020 Assay of thyroid [...] Work Phone: Start: 04-16-2020 Hemoglobin glycosylated a1c Fercesar Michelle Ken Work Phone: Start: 03-23-2020 Mri any jt upper ext remity w/o contrast matrl SHIVAPRAD JESUS MANUEL Start: 03-23-2020 Mri any jt [...] Blood count complete auto&auto difrntl wbc Warren Beeyenypilar Work Phone: Start: 11-02-2019 C-reactive protein Anton pereira Tyronepilar Work Phone: Start: 11-02-2019 Comprehensive metabo lic panel Warren Olivas Work Phone: Start: 11-02-2019 Fibrin dgradj produc ts d-dimer quantitative Warren Olivas Work Phone: Start: 11-02-2019 Lactate dehydrogenase ldh Warren Rohitkobe Work Phone: Start: 10-06-2019 Assay of free [...] Radiologic exam ches t 2 views Caden M Chapincito Work Phone: Start: 08-10-2019 Basic metabolic pane l calcium total Forest Childs Work Phone: Start: 08-10-2019 Blood count complete automated Forest Childs Work Phone: Start: 08-09-2019 Basic metabolic pane l calcium total Forest Childs Work Phone: Start: 08-09-2019 Blood count complete automated Forest Childs Work Phone: Start: 08-08-2019 Cell count miscellan eous body fluids Caden Baldwin Work Phone: Start: 08-08-2019 DIFFERENTIAL, BODY FLUID Caden Baldwin Work Phone: Start: 08-08-2019 Smr prim src fluorescent&/afs bct fngi parasit Caden Baldwin Work Phone: Start: 08-08-2019 SURGICAL PATHOLOGY Kuldeeplamar Childs Work Phone: Start: 08-08-2019 Virus centrifuge enh ncd id imfluor stain ea Caden Baldwin Work Phone: Start: 08-08-2019 End: 08-08-2019 Brncc incl fluor gdnce dx w/cell washg spx [...] Work Phone: Start: 08-05-2019 Procalcitonin (pct) Francisco Baldwin Work Phone: Start: 08-05-2019 Radiologic exam ches t single view Heena John Start: 08-05-2019 Basic metabolic pane l calcium total Heena John Start: 08-05-2019 Blood count complete auto&auto difrntl wbc Heena John Start: 08-05-2019 Fibrin dgradj produc ts d-dimer quantitative Heena John Start: 05-11-2019 Assay of thyroid stimulating hormone tsh SHIVAPRASAD JESUS MANUEL Start: 05-11-[address] gtt 3 specimens NAJMA KEN Start: 05-11-2019 Lipid panel FER D JESUS MANUEL Start: 05-11-2019 Assay of thyroid stimulating hormone tsh Najma Ken Work Phone: Start: 05-11-[address] gtt 3 specimens Najma Ken Work Phone: Start: 05-11-2019 Lipid panel Fer d Michelle Ken Work Phone: Plan of Treatment Date Care Activity Detail Author Start: 08-31-2025 COVID-19 Vaccine (1) COVID-19 Vaccin e (1) [facility] Phone: Comment on above: Postponed from 03/05 (Patient Refused) Start: 08-31-2025 Influenza vaccination Flu vacc ine (Season Ended) [employer] Phone: Comment on above: Postponed from 02/20 (Patient Refused) Start: 08-08-2024 Pneumococcal 0-64 ye ars Vaccine (2 of 2) Pneumococcal 0-64 years Vaccine (2 of 2) [employer] Phone: Start: 07-30-2024 Adult BMI Screening Adult BMI Screen [facility] Start: 07-30-2024 Depression Screening Depression Scre [facility] Start: 07-30-2024 Tobacco Screening Tobacco Screening [facility] Start: 05-11-2024 Adult BMI Screening Adult BMI Screen [facility] Start: 05-11-2024 Depression Screening Depression Scre [facility] Start: 05-11-2024 Lipid panel Lipid screen [place] Start: 05-11-2024 Lipid screen Lipid [place] Start: 05-11-2024 Tobacco Screening Tobacco Screening [facility] Start: 12-12-2023 Tobacco Counseling Tobacco Counselin g [facility] Start: 09-20-2023 Influenza vaccination Influenza Vacc ine [facility] Comment on above: Postponed from 02/20 (Patient Refused) Start: 08-26-2023 End: 08-26-2023 Patient encounter procedure 08/26/2023 11:45 AM EST Office Visit [facility] [address] [place] [address] Sarah Fernández, NAPHTHOL SOAPING MACHINE OPERATOR-RN FLIGHT [address], [address] [place] [address] [facility] Start: 08-12-2023 Adult BMI Follow Up Plan Adult BMI Follow Up Plan [facility] Start: 05-11-2022 Diabetes screen Diabetes screen [facility] [place] Start: 10-17-2021 Shingles Vaccine (1 of 2) Shingles Vaccine (1 of 2) [facility] Phone: Comment on above: Postponed from 03/05 (Patient Refused) Start: 04-16-2021 Hemoglobin A1c measurement A1C test (Diabetic or Prediabetic) [employer] Phone: Start: 04-16-2021 Thyroid stimulating hormone measurement TSH testing [employer] Phone: Start: 12-24-2020 DTaP/Tdap/Td vaccine (1 - Tdap) DTaP/Tdap/Td vaccine (1 - Tdap) [employer] Phone: Comment on above: Postponed from 03/05 (Patient Refused) Start: 10-05-2020 TSH Qn [facility] [place] Start: 10-05-2020 TSH testing TSH testing [facility] [place] Start: 05-11-2020 TSH testing TSH testing [facility] [place], [place] Start: 05-10-2020 End: 05-10-2020 Office Visit 05/10/2020 Office Visit Primary Care Najma Ken MD [address] [place] [address] [facility] Start: 05-05-2020 DTaP/Tdap/Td vaccine (1 - Tdap) DTaP/Tdap/Td vaccine (1 - Tdap) [place] Comment on above: Postponed from 03/05 (Patient Refused) Postponed from 03/05 (Patient Refused) Start: 05-05-2020 Hepatitis C screen Hepatitis C scree n [place] Comment on above: Postponed from 03/05 (Patient Refused) Start: 05-05-2020 Hepatitis C screening Hepatitis C sc reen [place] Comment on above: Postponed from 03/05 (Patient Refused) Start: 05-05-2020 HIV screen HIV screen [place] Comment on above: Postponed from 03/05 (Patient Refused) Start: 05-05-2020 HIV screening HIV screen [facility] Cristine [place] Comment on above: Postponed from 03/05 (Patient Refused) Start: 04-18-2020 End: 04-18-2020 Appointment 04/18/2020 Appointment Radiology [facility] CT Scan Start: 02-21-2020 Influenza vaccination [place] Start: 08-04-2019 End: 08-04-2019 Office Visit 08/04/2019 Office Visit Primary Care Najma Ken MD [address] [place] [address] [phone] [facility] Start: 02-20-2019 Influenza vaccination Flu vaccine (# 1) [place], [place] Start: [address] lung screening Low dose CT lung screening [place] Start: 2009 Administration of varicella zoster vaccine Zoster (Shingles) Vaccine (1 of 2) [facility] Start: 2009 Breast cancer screen Breast cancer s creen [place], [place] Start: 2009 Colon cancer screen colonoscopy Colon cancer screen colonoscopy [place] Start: 2009 Screening for malign ant neoplasm of breast Breast cancer screen [place] Start: 2009 Screening for malign ant neoplasm of colon Colon cancer screen colonoscopy [place] Start: 2009 Shingles Vaccine (1 of 2) Shingles Vaccine (1 of 2) [place] Start: 1999 Diabetes screen Diabetes screen [place], [place] Start: 1999 Lipid screen Lipid screen [place], [place] Start: 1978 DTaP,Tdap and Td Vaccines (1 - Tdap) DTaP,Tdap and Td Vaccines (1 - Tdap) [facility] Start: 1965 Pneumococcal 0-64 ye ars Vaccine (1 of 1 - PPSV23) Pneumococcal 0-64 years Vaccine (1 of 1 - PPSV23) [place], [place] Start: 1959 TSH testing TSH testing [place] Acapella Acapella Respira tory Care Routine Daily until discontinued starting 08/06/2019 [place] Comment on above: Daily until disconti nued starting 08/06/2019 [employer] [place] Comment on above: Release Upon Orderin g for 1 Occurrences starting 10/06/2019 ONE TIME for 1 Occur rences starting 08/08/2019 Basic Metabolic Prof Basic Metab olic Prof Lab Routine Daily until discontinued starting 08/06/2019, 5 completed [place] Comment on above: Daily until disconti nued starting 08/06/2019, 5 completed Body fluid cell count [place], [place] Comment on above: Release Upon Orderin g for 1 Occurrences starting 10/06/2019 ONE TIME for 1 Occur rences starting 08/08/2019 CBC CBC Lab Routine Daily until discontinued starting 08/06/2019, 5 completed [place] Comment on above: Daily until disconti nued starting 08/06/2019, 5 completed End: 09-01-2019 CBC auto differential CBC auto differential Lab Routine Daily for 5 Occurrences starting 08/28/2019 until 09/01/2019, 2 completed [place] Comment on above: Daily for 5 Occurren kisha starting 08/28/2019 until 09/01/2019, 2 completed End: 09-01-2019 Comprehensive Metabolic Panel w/ Reflex to MG Comprehensive Metabolic Panel w/ Reflex to MG Lab Routine Daily for 5 Occurrences starting 08/28/2019 until 09/01/2019, 2 completed [facility], [place] Comment on above: Daily for 5 Occurren kisha starting 08/28/2019 until 09/01/2019, 2 completed Culture with Smear, Acid Fast Bacillius [place] Comment on above: Release Upon Orderin g for 1 Occurrences starting 10/06/2019 ONE TIME for 1 Occur rences starting 08/08/2019 Culture, Fungus [place] Comment on above: Release Upon Orderin g for 1 Occurrences starting 10/06/2019 ONE TIME for 1 Occur rences starting 08/08/2019 End: 10-06-2019 Culture, Fungus Culture, Fungus Microbiology Routine Once for 1 Occurrences starting 10/06/2019 until 10/06/2019 [place] Comment on above: Once for 1 Occurrenc es starting 10/06/2019 until 10/06/2019 Culture, Legionella [place] Comment on above: Release Upon Orderin g for 1 Occurrences starting 10/06/2019 End: 10-06-2019 Culture, Legionella Culture, Legionella Microbiology Routine Once for 1 Occurrences starting 10/06/2019 until 10/06/2019 [place] Comment on above: Once for 1 Occurrenc es starting 10/06/2019 until 10/06/2019 Culture, Respiratory [facility] [place] Comment on above: Release Upon Orderin g for 1 Occurrences starting 10/06/2019 ONE TIME for 1 Occur rences starting 08/08/2019 Culture, Virus, Respiratory Culture, Virus, Respiratory Microbiology Routine Release Upon Ordering for 1 Occurrences starting 10/06/2019 [place] Comment on above: Release Upon Orderin g for 1 Occurrences starting 10/06/2019 Cytology, Non-Electrocardiograph Technician Cytology, Non- Electrocardiograph Technician Lab Routine ONE TIME for 1 Occurrences starting 08/08/2019 [place] Comment on above: ONE TIME for 1 Occur rences starting 08/08/2019 EKG 12 Lead EKG 12 Lead ECG STAT 11/02/2019 10:57 AM EDT [place] Fungal stain [place] Comment on above: Release Upon Orderin g for 1 Occurrences starting 10/06/2019 ONE TIME for 1 Occur rences starting 08/08/2019 End: 08-08-2019 Fungus Culture Fungus Culture Microbiology Routine Once for 1 Occurrences starting 08/08/2019 until 08/08/2019 [facility] on above: Once for 1 Occurrenc es starting 08/08/2019 until 08/08/2019 HHN Treatment [facility] [place] Comment on above: As Needed until disc [...] for 1 Occurrences starting 10/08/2019 until 10/08/2019 [facility] Comment on above: One Time for 1 Occur rences starting 10/08/2019 until 10/08/2019 End: 08-09-2019 Home O2 eval (desaturation screen) Home O2 eval (desaturation screen) Respiratory Care Routine One Time for 1 Occurrences starting 08/09/2019 until 08/09/2019 [facility] Comment on above: One Time for 1 Occur rences starting 08/09/2019 until 08/09/2019 Initiate Oxygen Ther apy Protocol [facility] [place] Comment on above: Daily until disconti nued starting 08/25/2019 Daily until disconti nued starting 08/27/2019 Daily until disconti nued starting 11/02/2019 MetaNeb MetaNeb Respirat ory Care Routine 0600, 1000, 1400, 1800, 2200 until discontinued starting 08/09/2019 [facility] Comment on above: 0600, 1000, 1400, 18 00, 2200 until discontinued starting 08/09/2019 Microscopic observat ion Gram stain Nom (Unsp spec) [place] Comment on above: Release Upon Orderin g for 1 Occurrences starting 10/06/2019 ONE TIME for 1 Occur rences starting 08/08/2019 End: 08-25-2019 Pulse Oximetry Spot Check Pulse Oximetry Spot Check Respiratory Care Routine One Time for 1 Occurrences starting 08/25/2019 until 08/25/2019 [place] Comment on above: One Time for 1 Occur rences starting 08/25/2019 until 08/25/2019 End: 08-27-2019 Pulse Oximetry Spot Check Pulse Oximetry Spot Check Respiratory Care Routine One Time for 1 Occurrences starting 08/27/2019 until 08/27/2019 [place] Comment on above: One Time for 1 Occur rences starting 08/27/2019 until 08/27/2019 Pulse oximetry, overnight Pulse oximetry, overnight Respiratory Care Routine Every 4hr until discontinued starting 08/09/2019 [place] Comment on above: Every 4hr until disc ontinued starting 08/09/2019 Respiratory Care Evaluation and Treat Respiratory Care Evaluation and Treat Respiratory Care Routine Daily until discontinued starting 10/05/2019 [place] Comment on above: Daily until disconti nued starting 10/05/2019 Respiratory care evaluation only [place] Comment on above: Daily until disconti nued starting 08/26/2019 Daily until disconti nued starting 11/23/2020 Immunizations Immunization Date Immunization Notes Care Provider Catherine howard 08-08-2019 pneumococcal vaccine , unspecified formulation [place], [place] 08-08-2019 pneumococcal polysaccharide vaccine, 23 valent [place] NEGATED: Highlighted row has not occurred!08-10-2019 influenza, injectable, quadrivalent, preservative free [place] NEGATED: Highlighted row has not occurred!08-09-2019 influenza, injectable, quadrivalent, preservative free [place] NEGATED: Highlighted row has not occurred!08-08-2019 influenza, injectable, quadrivalent, preservative free [place] Comment on above: Deferred: - Patient refused flu vaccine. Would not like the vaccine at all. Payers Date Payer Category Payer Unknown BCBS BCBS - [place] P PO xxxxxxxxxxxx 2018-Present [address] [place] [address] xxxxxxxxxxxx [id number] 2016 Unknown [id number] 1959 Unknown [id number] 1959 Unknown [id number] 1959 Unknown [id number] [id number] 1959 Unknown [id number] 2.16.840.1.801843.3.579.2.175 1959 Unknown [id number] 2.16.840.1.535730.3.579.2.176 1959 Unknown [id number] 2.16.840.1.524423.3.579.2.176 1959 Unknown [id number] 2.16.840.1.143633.3.579.2.176 1959 Unknown [id number] 2.16.840.1.590316.3.579.2.593 1959 Unknown [id number] 2.16.840.1.563211.3.579.2.593 1959 Unknown [id number] 2.16.840.1.951446.3.579.2.593 1959 Unknown [id number] 2.16.840.1.330765.3.579.2.593 1959 Unknown [id number] 2.16.840.1.034335.3.579.2.593 1959 Unknown [id number] 2.16.840.1.327668.3.579.2.593 1959 Unknown [id number] 2.16.840.1.064139.3.579.2.593 1959 Unknown [id number] 2.16.840.1.059772.3.579.2.128 6 1959 Unknown [id number] [id number] Social History Date Type Detail Facility Start: 08-25-2019 End: 11-22-2020 Tobacco smoking status NHIS [place] Start: 08-25-2019 End: 08-02-2020 Cigarettes smoked current (pack per day) - Reported [facility] Start: 08-25-2019 End: 07-30-2023 Alcohol intake Current drinker of alcohol (finding) [place] Start: 08-08-2019 Tobacco Comment quit Jul 2019 [place] Start: 02-01-2019 Alcohol Comment OCCASIONALLY [place], [place] Start: 1960 Sex Assigned At Not on file [place] Start: 02-20-2020 End: 04-06-2022 Tobacco use and exposure Never used [place] Start: 05-05-2019 End: 04-06-2022 Tobacco smoking status NJIS Current every day smoker [facility] Exposure to SARS-CoV -2 (event) Unable to assess [place] End: 07-23-2019 History of tobacco use Current smoker [facility] Exposure to SARS-CoV -2 (event) Not sure [facility] History of tobacco use Cigarette Smoker P [facility] Start: 08-02-2020 End: 05-11-2023 Tobacco use panel [facility] Adolescent depressio n screening assessment 0 [facility] Start: 02-25-2023 Alcohol Comment Occasionally [facility] Goals Date Patient Goal Desired Activity [...] helped lift a safe at work at [employer] and felt sudden, intense pain that sent her to her knees. It was a [facility] case. This was when she was living in [place] in the mid to late . She [...] would also like a referral to an last remodeler repairer for a second opinion. She is taking her supplement but still feels tired. They had a friend who had normal labs but the last remodeler repairer did more labs and changed medications and [...] hypothyroidism - [facility] - [place], [place]; Future Refer to endocrinology for a second opinion Chronic obstructive pulmonary disease, unspecified COPD type ([facility]) Reviewed pulmonology consult with patient and . It was addressed at appointment and was doing ok. She needs to quit smoking. They also ordered labs but she hasn't gotten them done and didn't know she needed them. Encouraged to get labs. Obstructive sleep apnea She is not following treatment regimen. Recommended to follow recommendations. documented in this encounter [facility] 07-14-2023 Miscellaneous Notes Althea g of this note might be different from the original. Rx sent in. Patient due recheck appointment LM on VM [facility] 07-14-2023 Telephone encount er Note Rx sent in. Patient due recheck appointment [facility] [employer] [facility] 07-14-2023 Telephone encount er Note LM on VM [facility] [employer] [facility] Evaluation note Diagnosis COPD exacerbation (HCC)- Primary Obstructive chronic bronchitis with exacerbation documented in this encounter [employer] Phone: evaluation note* Diagnosis Chronic rhinitis documented in this encounter [facility] [employer] SystemEvaluation note* Diagnosis Acute exacerbation of chronic obstructive pulmonary disease (COPD) ([facility]) Obstructive chronic bronchitis with exacerbation documented in this encounter [facility] [employer] SystemEvaluation note* Diagnosis Chronic obstructive pulmonary disease, unspecified COPD type ([facility])- Primary Right-sided low back pain without sciatica, unspecified chronicity Postoperative hypothyroidism Postsurgical hypothyroidism Obstructive sleep apnea Obstructive sleep apnea (adult) (pediatric) [facility]* Attachments The following attachments cannot be sent through Care Everywhere. * COPD Exacerbation Plan (Taiwanese) documented in this encounterParatek Phone: InstructionsNot on filedocumented in this encounter [facility] [employer] SystemInstructionsNot on filedocumented in this encounter [facility] WidespaceInstructionsNot on filedocumented in this encounter [facility] HospitalOutrigger MediaReason for referral (narrative)* Consultation (Routine) - Pending Review Specialty Diagnoses / Procedures Referred By Emily horn Referred To Contact Endocrinology Diagnoses Postoperative hypothyroidism Louie Paul DO [address] [facility] [place] [address] Celia Calhoun MD [address] [address] Referral ID Status Reason Start Date Expiration Date Visits Requested Visits Authorized [id number] Pending Review Specialty Services Required 07/30/2023 07/29/2024 1 1 * Consultation (Routine) - Pending Review Specialty Diagnoses / Procedures Referred By Controger t Referred To Contact Pain Medicine Diagnoses Right-sided low back pain without sciatica, unspecified chronicity Louie Paul DO [address] [facility] [place] [address] [address] Referral ID Status Reason Start Date Expiration Date V isits Requested Visits Authorized [id number] Pending Review 07/30/2023 07/29/2024 1 1 [facility] History of Present Illness * Erin Ansari RN - 08/29/2019 7:38 PM EDT IV pulled by day RN. Patient dc papers given. Patient dc'd with all belongings and scripts. * Nati Neves OT - 08/29/2019 12:48 PM EDT [facility] OCCUPATIONAL THERAPY MISSED TREATMENT NOTE INPATIENT Date: [...] ABGs: No results for input(s): PHART, PO2ART, FRT6GUZ, GFB3WRY, BEART, K3EUNRAM, SGT7WUU in the last 72 hours. PT/INR: No results found for: PTINR ASSESSMENT / PLAN: Copd exac - steroid, BD - to po meds Influenza - tamiflu Cough suppressants Okay for home from pulmonary standpoint Plan of care discussed with Dr Childs . REASON FOR VISIT: copd, influenza I examined the patient myself The assessment and Plan in the note per my discussion with ACID PUMPER. . * Dalila Dash RN - 08/29/2019 [...] ABGs: No results for input(s): PHART, PO2ART, CNO1KZA, XHI3EJJ, BEART, B8CZYRFL, FHN0AYO in the last 72 hours. PT/INR: No results found for: PTINR ASSESSMENT / PLAN: Copd exac - steroid, BD - to po meds Influenza - tamiflu Cough suppressants . * Juan J Ruckerhiram Laurie, PT - 08/28/2019 12:11 PM EDT Physical Therapy Facility/Department: [facility] MED SURG Initial Assessment NAME: Cameron Us [...] surgery; Hysterectomy, vaginal; Appendectomy; shoulder surgery (Left, 2005); Hand surgery (Left); and bronchoscopy (N/A, 08/08/2019). [...] Ambulation Assistance: Independent Transfer Assistance: Independent Active [employer] Team Member: Yes Mode of Transportation: Car Occupation: Retired [...] 08/28/2019 11:43 AM Name: Cameron Us Acct: [id number] Room: [address] [place] [address] Day: 1 Admit Date: 08/25/2019 3:06 PM [...] file Gets together: Not on file Attends sabianism service: Not on file Active member of [...] 0.85 (L) 1.0 - 4.8 k/uL Absolute [place] # 0.99 0.1 - 1.3 k/uL Absolute [...] ABGs: No results for input(s): PHART, PO2ART, GJD8CBR, VRS0NTI, BEART, D4YHUGZU, GYS3RBB in the last 72 hours. PT/INR: No results found for: PTINR ASSESSMENT / PLAN: Copd exac - steroid, BD Influenza - tamiflu Cough suppressants . * Fuentes Jiang MD - 08/27/2019 11:11 AM EST Progress Note 08/27/2019 11:11 AM Name: Cameron Us Acct: [id number] Room: [facility] Day: 1 Admit Date: 08/25/2019 3:06 PM [...] file Gets together: Not on file Attends sabianism service: Not on file Active member of [...] ABGs: No results for input(s): PHART, PO2ART, XWQ4WKN, VAW8JMQ, BEART, O9VALSRV, LWT4ODX in the last 72 hours. PT/INR: No [...] NKDA Other pertinent information: Medications confirmed with [facility]. Thank you, Amanda Ellison, PharmD, [facility] [phone] documented in this encounter* Joseph Butterfield RCP - 10/08/2019 12:13 PM EDT Home Oxygen [...] 10/07/2019 4:04 PM Name: Cameron Us Acct: [id number] Room: [facility] Day: 1 Admit Date: 10/05/2019 2:31 PM [...] file Gets together: Not on file Attends sabianism service: Not on file Active member of [...] ABGs: No results for input(s): PHART, PO2ART, CCK8XYW, BHE8ZQF, BEART, P1OCPPSA, HHH0AEC in the last 72 hours. PT/INR: No [...] in the note per my discussion with ACID PUMPER. . * Wendy Parra, RN - 10/07/2019 12:23 AM EDT Pt. Stated my grandson came to the E.R., Dr. Told him he probubly has cov. 19, he was not tested. Pt. Continued to say they gave him a paper on what to look for. Sign Artist updated Dr. Childs. No orders given for [...] parameters on the PO Cardizem. * Greta Bonilla, RAFAEL - 10/06/2019 9:01 AM EDT RN spoke with Dr. Childs via perfect serve to update on patient's current orders for Eliquis and planned bronchoscopy today. states ok for patient to have bronchoscopy. * Bay Gomez - 10/05/2019 6:[address] beauchamp [...] up appointments. The pt refused for the junior technical writer to take her down stairs and [...] ABGs: No results for input(s): PHART, PO2ART, BTM7UAF, BTA6DLF, BEART, H0YANEQE, WLN1CCA in the last 72 hours. PT/INR: No [...] 9:29 PM Subjective: Admit Date: 08/05/2019 PCP: Najma [...] Home [] Home with Home Health [] Long-Term Facility [] Long-Term Acute Care Hospital Patient is admitted as inpatient status because of co-morbidities listed above, severity of signs and symptoms as outlined, requirement for current medical therapies and most importantly because of direct risk to patient if care not provided in a hospital setting. Caden Baldwin MD [facility] Hospitalist * Jacob Luis, [facility] - 08/09/2019 3:50 PM EST Home Oxygen [...] ABGs: No results for input(s): PHART, PO2ART, PTJ4WXZ, RPZ6XOE, BEART, J3NGJKQR, FDY3RYJ in the last 72 hours. PT/INR: No [...] in the note per my discussion with ACID PUMPER. . * Caden Baldwin MD - 08/08/2019 [...] sodium chloride flush, acetaminophen CBC: Recent Labs 08/06/193 08/07/19 0419 08/08/19 0613 WBC 7.9 20.0* 18.5* HGB 14.5 14.1 14.0 PLT 366 367 355 BMP: Recent Labs 08/06/1942208/07/1941808/08/19 0613 NA 137 140 140 K 4.1 5.1 [...] Home [] Home with Home Health [] Long-Term Facility [] Long-Term Acute Care Hospital Patient is admitted as inpatient status because of co-morbidities listed above, severity of signs and symptoms as outlined, requirement for current medical therapies and most importantly because of direct risk to patient if care not provided in a hospital setting. Caden Baldwin MD [facility] Hospitalist * Cynthia Russell - 08/08/2019 3:40 PM EST Ms. Cameron Us is a 59yowf admitted to [facility] for evaluation of COPD exacerbation. Ms. Us [...] Data ReviewCBC: Recent Labs 08/05/19 1401 08/06/19 04208/07/19418 WBC 9.2 7.9 20.0* RBC 5.02 4.66 4.59 HGB 15.6 14.5 14.1 HCT 46.8* 43.2 42.8 PLT 396 366 367 BMP: Recent Labs 08/05/19 1401 08/06/19 0423 08/07/19 0419 GLUCOSE 97 166* 172* NA 141 137 140 K 4.5 4.1 5.1 BUN 19 21 26* CREATININE 0.85 0.75 0.93* CALCIUM 8.6 8.2* 8.1* ABGs: No results for input(s): PHART, PO2ART, YEF8VEB, XYH8IIP, BEART, S1RRUPRN, AII0CLN in the last 72 hours. PT/INR: No [...] Ana Strickland MD [facility] [address] [id number] * Laura Mathis RN - 08/07/2019 3:15 PM EST Pt. Arrived to room 2045. Vitals obtained. Assessment Completed. Pt. Denies any needs at this time.Will Continue to monitor. * Reina Smith RN - 08/07/2019 3:00 PM EST I agree with the charting of Shellie HALL * Analia James [facility] - 08/06/2019 9:25 PM EST Spoke with Dr. Childs and informed him that Codeine and Tylenol #3 are nonformulary and unavailable at [facility] suggested Phenergan with codeine. He is very insistent that we try to obtain some, he used it at [place] last month. Per [facility], [facility] appears to have Tylenol #3 still in stock. Called and spoke with pharmacist at [facility], she will call her credit union manager or digital media buyer and find out if she can share with us, will call us back this evening. Awaiting call back. Analia James,PharmD, 08/06/2019, 9:28 PM * Tere Tafoya RN - 08/06/2019 8:45 PM EST Return call received from Dr Childs. He doesn't want Phenergan with codeine due to patient being on Hycodan. Wants to see if pharmacy can get in Codeine tablets. Sign Artist talked with pharmacy and was informed there [...] RN - 08/06/2019 5:[address] Strickland rounding at bedside. Updated on recent vitals and [...] New orders for cardizem per Dr. Strickland ON * Linnette Patel RN - 08/06/2019 8:[address] Strickland paged for tachycardia. Awaiting call back. * Amanda Ellison RPH - 08/05/2019 5:01 PM EST Medication History completed: New medications: none Medications discontinued: magnesium Changes to dosing: Duloxetine changes to nightly dosing Stated allergies: NKDA Other pertinent information: Medications confirmed with [facility]. Thank you, Amanda Ellison, PharmD, [facility] [phone] * Jacob Luis [facility] - 08/05/2019 2:11 PM EST Breath Sounds: [...] FoundDocuments on File Type Date Recorded Patient Criminal Investigator Expl anation Advance Directives and Living Will Power of Tumbler Tender Latest Code Status on File Code Status [...] Documents on File Type Date Recorded Patient Criminal Investigator Expl anation ACP-Advance Directive ACP-Power of Tumbler Tender Latest Code Status on File Code Status Date Activated Date Inactivated Comments Full Code 10/05/2019 2:43 PM 10/08/2019 2:49 PM Full Code 08/27/2019 11:11 AM 08/29/2019 9:40 PM Full Code 08/25/2019 6:05 PM 08/27/2019 11:11 AM Full Code 08/25/2019 5:50 PM 08/25/2019 6:05 PM Full Code 08/05/2019 4:58 PM 08/10/2019 8:24 PM Documents on File Type Date Recorded Patient Criminal Investigator Expl anation ACP-Advance Directive ACP-Power of Tumbler Tender Latest Code Status on File Code Status Date Activated Date Inactivated Comments Full Code 10/05/2019 2:43 PM 10/08/2019 2:49 PM Full Code 08/27/2019 11:11 AM 08/29/2019 9:40 PM Documents on File Type Date Recorded Patient Criminal Investigator Expl anation Advance Directives and Living Will Power of Tumbler Tender Latest Code Status on File Code Status [...] be sent through Care Everywhere. * Cough (Taiwanese) * URI (Upper Respiratory Infection): Viral (Taiwanese) * Coronavirus Disease COVID-19: Isolation (Taiwanese) documented in this encounter* Instructions* Misty Sharp [...] through Care Everywhere. * COPD Exacerbation Plan (Taiwanese) * COPD (Taiwanese) * Smoking Cessation: Health Benefits: General Info (Taiwanese) documented in this encounter* Instructions* Warren Olivas [...] through Care Everywhere. * COPD: General Info (Taiwanese) documented in this encounter Reason for Referral Status Reason Specialty Diagnoses / Procedures Re ferred By Contact Referred To Contact Closed Radiology Diagnoses Osteoarthritis of right acromioclavicular joint Procedures MRI SHOULDER RIGHT WO CONTRAST Mao Shepherd MD [address] [facility] [address] [place] [address] Summary Purpose Family History No Family History [...] Influenza A Influenza A Caden Baldwin MD [address] [place] [address] [employer] Reason Comments Cough Status Reason Specialty Diagnoses / Procedures Re ferred By Contact Referred To Contact Closed Radiology Diagnoses Osteoarthritis of right acromioclavicular joint Procedures MRI SHOULDER RIGHT WO CONTRAST Mao Shepherd MD [address] [address] Status Reason Specialty Diagnoses / Procedures Referre d By Contact Referred To Contact Diagnoses chronic obstructive pulmonary disease Forest Childs MD [address] [address], [address] [place] [address] [employer] Reason Comments Cough Shortness of Breath Status Reason Specialty Diagnoses / Procedures Referre d By Contact Referred To Contact Diagnoses COPD exacerbation (HCC) Caden Baldwin MD [address] [place] [address] [employer] Reason Comments Cough Shortness of Breath Chills Emesis Reason Comments Shortness of Breath Cough Fatigue Headache Reason Comments Med Refill Reason Comments discuss pain. back down to h ip and up to the neck. 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 Chief complaint tired all the time INFORMATION SOURCE (unrecogn ized section and content) DATE CREATED AUTHOR 04/17/2020 [facility] DATE CREATED AUTHOR AUTHOR'S ORGANIZ ATION 11/23/2020 [facility] DATE CREATED AUTHOR AUTHOR'S ORGANIZ ATION 09/21/2021 [facility] DATE CREATED AUTHOR AUTHOR'S ORGANIZ ATION 12/20/2021 [facility] DATE CREATED AUTHOR AUTHOR'S ORGANIZ ATION 08/03/2023 [facility] DATE CREATED AUTHOR AUTHOR'S ORGANIZ ATION 08/09/2023 [facility] Ordered Prescriptions (unrec ognized section and content) [...] Care Teams (unrecognized sec tion and content) [employer] Rel[employer] Adjuster Relationship Specialty Start Date End Date Louie Paul DO [address] [place] [address] PCP - General Family Medicine 09/27/21 [employer] Adjuster Relationship Specialty Start Date End Date Louie Paul DO [address] [place] [address] PCP - General Family Medicine 09/27/21 [employer] Rel[employer] Adjuster Relationship Specialty Start Date End Date Louie Paul DO [address] [place] [address] PCP - General Family Medicine 09/27/21 FOR [...] BE BASED ON THE PRIMARY CLINICAL RECORDS. [facility]. provides no warranty or guarantee of the accuracy or completeness of information in this document.
[2023-08-10 08:45] VITALS: BP 150/90; PULSE 101; RESP 16; TEMP 36.9; O2SAT 95
[2023-08-10 09:16] VITALS: BP 144/78; BP 155/70; PULSE 110; PULSE 111; RESP 18; O2SAT 91; O2SAT 92
--- NOTE | 2023-08-10 09:18 | W.PM.PROCNOT ---
Date of procedure: 08/10/23 Pre-op diagnosis: Lumbar spondylosis Post-op diagnosis: same as pre-op Procedure: Procedure: Bilateral L4-5, L5-S1 medial branch block Medications: Bupivacaine 0.25% 6cc The patient was seen and examined in the preoperative holding area.? An informed consent was obtained and placed on the chart.? The patient was brought to the medical procedure unit and placed in the prone position.? A timeout was completed verifying correct patient, procedure site, positioning, plan, and special equipment.? Using aseptic technique, the needle was placed at left L4. Under direct fluoroscopic visualization a Quincke-tipped spinal needle was advanced to the junction of the superior articulating process with the transverse process at the designated medial branch segment.? Preceded by negative aspiration, the above-mentioned injectate was placed in 1 mL aliquots.? The procedure was repeated at left L5, S1.? The needle was removed and insertion site was covered. The same procedure, at the same levels, was completed on the right side. The patient was taken to the postprocedural recovery area and monitored for an appropriate length of time before found suitable for discharge in the company of a responsible adult. Anesthesia: Local Surgeon: Belle Monet Pathology: none sent Condition: stable Disposition: no change
[2023-08-10] MEDS: BUPIVACAINE HCL 0.25% PF 25 MG/10 ML VIAL 8 ML INJ (09:19)
[2023-08-10] MEDS: LIDOCAINE HCL 2% PF 100 MG/5 ML VIAL 1.5 ML INJ (09:19)
== END 2023-08-10 09:23 | disposition home or self-care (01) ==
LOC: SURGOUT 08:09
PROVIDERS: PCP Family Medicine; Visit Provider Anesthesiology
DX: M47.816 Spondylosis without myelopathy or radiculopathy, lumbar region (principal)
CPT/HCPCS: 64493; 64494; J0665

== ENCOUNTER 2023-08-19 12:22 | Outpatient (OUT) | payer BC, SELFPAY ==
--- OUTSIDE RECORDS SUMMARY | 2023-08-19 12:29 | XMS_ITS | CCD ---
Author Name Unknown Address [address] [place] [address] Organization [facility] Care Team Providers Care Energy Administrator Name Role Phone Najma Ken Primary Care Provider [phone] Caden Baldwin Primary Care Provider [phone] Caden Baldwin Primary Care Provider NAJMA KEN [...] dilTIAZem Drug Allergy 10-12-2019 Itching, Swelling, Rash (3 sources) dilTIAZem Drug Allergy 10-12-2019 Itching, Swelling, Rash - [place], [place] Medications Current Medications Medication Drug Class(es) [...] solution Indications: Chronic respiratory failure with hypoxia ([facility]) Inhale 3 mL (2.5 mg total) by nebulization every 6 (six) hours as needed for wheezing. 75 mL 2 05/11/2023 Active Start: 09-27-2021 take 2 puff(s) by in halation four times daily albuterol (PROVENTIL HFA;VENTOLIN HFA) 90 mcg/actuation inhaler Indications: Acute exacerbation of chronic obstructive pulmonary disease (COPD) ([facility]) Inhale 2 puffs 4 (four) times a [...] take 2 puff(s) by inhalation at bedtime fiwatzmaye-bkitbkyc-jyb moterol (BREZTRI AEROSPHERE) 160-9-4.8 mcg/actuation HFA aerosol inhaler Indications: Acute exacerbation of chronic obstructive pulmonary disease (COPD) ([facility]) INHALE 2 PUFFS IN THE MORNING AND AT BEDTIME 10.7 g 0 07/19/2023 Active Start: 03-31-2023 End: 07-19-2023 take 2 puff(s) by inhalation at bedtime tyvtuywxmn-ffihbrbo-hgkybjkjol (BREZTRI AEROSPHERE) 160-9-4.8 mcg/actuation HFA aerosol inhaler Indications: Acute exacerbation of chronic obstructive pulmonary disease (COPD) ([facility]) Inhale 2 puffs in the morning and [...] 24 hr capsule Indications: Paroxysmal atrial fibrillation ([facility]) Take 1 capsule (120 mg total) by [...] Active Start: 11-28-2019 [facility] daily dilTIAZem (CARDIZEM) [...] 0 08/29/2019 08/30/2019 Active polyethylene glycol 3350 42096 mg powder for oral solution (1 source) [...] 07-02-2021 Episodic Other aftercare (1 source) Other penitentiary (current) drug therapy; Translations: [OTH [employer] DISTRIBUTOR CURRENT DRUG THERAPY] Onset: 07-04-2021 Episodic Other aftercare (1 source) 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 care phlebotomist (current) use of anticoagulants; Translations: [GREEN [employer]ING [employer] DISTRIBUTOR CURRNT USE ANTICOAGULANTS] Onset: 07-04-2021 Episodic Other [...] Views Ordered By: Edilma Cuevas on 07-30-2023 [facility] Radiology Study observation (narrative) [facility] CT NECK ST W CONon CT [...] BARRON TATUM Date: 2021-10-04 09:24 Normal [facility] COMPREHENSIVE METABOLIC PANE Deven 09-19-2021 Albumin [Mass/Vol] 3.9 g/dL Normal 3.6-5.1 [facility] Comment on above: Performed By: #### 7 600, 37636, 60241 #### [facility] of [address], [address] [place] [address] Flap Presser: Chalino Levy MD Albumin/Globulin [Mass ratio] 1.3 {ratio} Normal 1.0-2.5 [facility] Comment on above: Performed By: #### 7 600, 47734, 84995 #### [facility] of [address], [address] [place] [address] Flap Presser: Chalino Levy MD ALP [Catalytic activity/Vol] 71 U/L Normal 37-153 [facility] Comment on above: Performed By: #### 7 600, 43317, 67098 #### [facility] of [address], [address] [place] [address] Flap Presser: Chalino Levy MD ALT [Catalytic activity/Vol] 9 U/L Normal 6-29 [facility] Comment on above: Performed By: #### 7 600, 74386, 80943 #### [facility] of [address], [address] [place] [address] Flap Presser: Chalino Levy MD AST [Catalytic activity/Vol] 10 U/L Normal 10-35 [facility] Comment on above: Performed By: #### 7 600, 03618, 28133 #### [facility] of [address], [address] [place] [address] Flap Presser: Chalino Levy MD Bilirubin [Mass/Vol] 0.6 mg/dL Normal 0.2-1.2 [facility] Comment on above: Performed By: #### 7 600, 86194, 04702 #### [facility] of [place] [address] Flap Presser: Chalino Levy MD BUN/CREATININE RATIO NOT APPLICABLE Normal 6-22 [facility] Comment on above: Performed By: #### 7 600, 41991, 06634 #### [facility] of [address], [address] [place], [place] [address] Flap Presser: Chalino Levy MD Calcium [Mass/Vol] 9.0 mg/dL Normal 8.6-10.4 [facility] Comment on above: Performed By: #### 7 600, 05696, 27236 #### [facility] [address], [address] [place] [address] Flap Presser: Chalino Levy MD Chloride [Moles/Vol] 103 mmol/L Normal 98-110 [facility] Comment on above: Performed By: #### 7 600, 81589, 21843 #### [facility] [address], [address] [place] [address] Flap Presser: Chalino Levy MD CO2 [Moles/Vol] 31 mmol/L Normal 20-32 [facility] Comment on above: Performed By: #### 7 600, 50614, 95205 #### [facility] [address], [address] [place] [address] Flap Presser: Chalino Levy MD Creatinine [Mass/Vol] 0.79 mg/dL Normal 0.50-0.[address] [facility] [address] [facility] Comment on above: Result Comment: For patients >49 years of age, the reference limit for Creatinine is approximately 13% higher for people identified as -Taiwanese. Performed By: #### 7 600, 85189, 59098 #### [facility] [address], [address] [place] [address] Flap Presser: Chalino Levy MD eGFR NON-AFR. JAMAICAN 80 mL/min/1.73m2 Normal > OR = 60 [facility] Comment on above: Performed By: #### 7 600, 29225, 52698 #### [facility] [address], [address] [place] [address] Flap Presser: Chalino Levy MD GFR/1.73 sq M.predicted among blacks MDRD (S/P/Bld) [Vol rate/Area] 93 mL/min/{1.73_m2} Normal > OR = 60 [facility] Comment on above: Performed By: #### 7 600, 49668, 56337 #### [facility] [place] [address] Flap Presser: Chalino Levy MD Globulin (S) [Mass/Vol] 3.0 g/dL Normal 1.9-3.7 [facility] Comment on above: Performed By: #### 7 600, 63097, 57491 #### [facility] [place] [address] Flap Presser: Chalino Levy MD Glucose [Mass/Vol] 105 mg/dL High 65-99 [facility] Comment on above: Result Comment: Fasting reference interval For someone without known diabetes, a glucose value between 100 and 125 mg/dL is consistent with prediabetes and should be confirmed with a follow-up test. Performed By: #### 7 600, 73905, 96442 #### [facility] [place] [address] Flap Presser: Chalino Levy MD Potassium [Moles/Vol] 4.3 mmol/L Normal 3.5-5.[address] [facility] Comment on above: Performed By: #### 7 600, 84108, 91567 #### [facility] [place] [address] Flap Presser: Chalino Levy MD Protein [Mass/Vol] 6.9 g/dL Normal 6.1-8.1 [facility] Comment on above: Performed By: #### 7 600, 01309, 56583 #### [facility] [place] [address] Flap Presser: Chalino Levy MD Sodium [Moles/Vol] 140 mmol/L Normal 135-146 [facility] Comment on above: Performed By: #### 7 600, 53890, 12695 #### [facility] [place] [address] Flap Presser: Chalino Levy MD Urea nitrogen [Mass/Vol] 23 mg/dL Normal 7-25 [facility] Comment on above: Performed By: #### 7 600, 41162, 30995 #### [facility] [address], [address] [place] [address] Flap Presser: Chalino Levy MD LIPID PANEL, [facility] 03-3 Cholesterol [Mass/Vol] 276 mg/dL High <200 [facility] Comment on above: Order Comment: FASTI NG:YES FASTING: YES Performed By: #### 7 600, 64585, 50358 #### [facility] [address], [address] [place] [address] Flap Presser: Chalino Levy MD Cholesterol in HDL [Mass/Vol] 48 mg/dL Low > OR = 50 [facility] Comment on above: Order Comment: FASTI NG:YES FASTING: YES Performed By: #### 7 600, 27355, 79481 #### [facility] [address], [address] [place] [address] Flap Presser: Chalino Levy MD Cholesterol in LDL [Mass/Vol] [...] Jose Roberto BOTELLO et al. EDGARDO. 2013;310(19): 8777-2501 (http://education.ChickRx.Own Products/faq/FFP754) Performed By: #### 7 600, 33021, 37265 #### [facility] [address], [address] [place] [address] Flap Presser: Chalino Levy MD Cholesterol.total/Chol esterol in HDL [Mass ratio] 5.8 {ratio} High <5.0 [facility] Comment on above: Order Comment: FASTI NG:YES FASTING: YES Performed By: #### 7 600, 86955, 91333 #### [facility] [place] [address] Flap Presser: Chalino Levy MD NON HDL CHOLESTEROL 228 [...] therapeutic option. Performed By: #### 7 600, 88845, 52828 #### [facility] [address], [address] [place] [address] Flap Presser: Chalino Levy MD Triglyceride [Mass/Vol] 212 mg/dL High <150 [facility] Comment on above: Order Comment: FASTI NG:YES FASTING: YES Result Comment: If a non-fasting specimen was collected, consider repeat triglyceride testing on a fasting specimen if clinically indicated. Levy et al. J. of Clin. Lipidol. 2015;9:129-169. Performed By: #### 7 600, 75572, 49631 #### [facility] [place] [address] Flap Presser: Chalino Levy MD TSH+FREE T4on 09-19-2021 Free T4 [Mass/Vol] 1.4 ng/dL Normal 0.8-1.8 [facility] Comment on above: Performed By: #### 7 600, 39718, 35774 #### [facility] [place] [address] Flap Presser: Chalino Levy MD TSH Qn 2.51 m[IU]/L Normal 0.40-4.50 [facility] Comment on above: Performed By: #### 7 600, 94431, 95349 #### [facility] [place] [address] Flap Presser: Chalino Levy MD XR CHEST 2 Von [...] BARRON TATUM Date: 2021-09-12 16:03 Normal [facility] US ST HEAD_NECKon 08-25-[address] HEAD_NECK EXAM: US ST HEAD_NEC K HISTORY: Mass of neck COMPARISON: Ultrasound neck 02/07/2015. CT neck 01/24/2015 TECHNIQUE: Focused sonographic images in the posterior occipital region in the patient's reported area of concern. Additional left neck was scanned per aviation consultant. FINDINGS: No suspicious mass identified within the [...] ASHLEE ESCUDERO Date: 2021-08-25 09:54 Normal [facility] CBC AUTO DIFFon 07-02-2021 BASO # 0.0 103/ul Normal 0.0-0.1 [facility] Comment on above: Performed By: #### C BC #### [facility] [address] [place] [address] [address] Bibi Emerson Basophils/100 WBC (Bld) 0.3 % Normal 0.2-2.0 [facility] Comment on above: Performed By: #### C BC #### [facility] [address] [place] [address] [address] Bibi Emerson EO # 0.0 103/ul Normal 0.0-0.7 [facility] Comment on above: Performed By: #### C BC #### [facility] [address] [place] [address] Dr. Bibi Emerson Eosinophils/100 WBC (Bld) 0.0 % Critically low 0.9-7.0 [facility] Comment on above: Performed By: #### C BC #### [facility] [address] [place] [address] Dr. Bibi Emerson Erythrocyte distribution width (RBC) [Ratio] 13.0 % Normal 11.0-15.0 [facility] Comment on above: Performed By: #### C BC #### [facility] [address] [place] [address] Dr. Bibi Emerson Hematocrit (Bld) [Volume fraction] 47.0 % Normal 36.0-48.0 [facility] Comment on above: Performed By: #### C BC #### [facility] [address] [place] [address] Dr. Bibi Emerson Hemoglobin (Bld) [Mass/Vol] 15.5 g/dL Normal 12.0-16.0 [facility] Comment on above: Performed By: #### C BC #### [facility] [address] [place] [address] Dr. Bibi Emerson IG # 0.01 10e3/ul Normal 0.00-0.03 [facility] Comment on above: Performed By: #### C BC #### [facility] [address] [place] [address] Dr. Bibi Emerson IG % 0.2 % Normal 0.0-0.5 [facility] Comment on above: Performed By: #### C BC #### [facility] [address] [place] [address] Dr. Bibi Emerson LYMPH # 2.0 103/ul Normal 1.2-3.8 [facility] Comment on above: Performed By: #### C BC #### [facility] [address] [place] [address] Dr. Bibi Emerson Lymphocytes/100 WBC (Bld) 30.7 % Normal 20.5-60.0 [facility] Comment on above: Performed By: #### C BC #### [facility] [address] [place] [address] Dr. Bibi Emerson MANUAL DIFF REQ NO Normal [facility] Comment on above: Performed By: #### C BC #### [facility] [address] [place] [address] Dr. Bibi Emerson MCH (RBC) [Entitic mass] 29.8 pg Normal 26.7-34.0 [facility] Comment on above: Performed By: #### C BC #### [facility] [address] [place] [address] Dr. Bibi Emerson MCHC (RBC) [Mass/Vol] 33.0 g/dL Normal 29.9-35.2 [facility] Comment on above: Performed By: #### C BC #### [facility] [address] [place] [address] Dr. Bibi Emerson MCV (RBC) [Entitic vol] 90.2 fL Normal 81.0-99.0 [facility] Comment on above: Performed By: #### C BC #### [facility] [address] [place] [address] Dr. Bibi Emerson MONO # 0.5 103/ul Normal 0.3-0.8 [facility] Comment on above: Performed By: #### C BC #### [facility] [address] [place] [address] Dr. Bibi Emerson Monocytes/100 WBC (Bld) 7.9 % Normal 1.7-12.0 [facility] Comment on above: Performed By: #### C BC #### [facility] [address] [place] [address] Dr. Bibi Emerson NEUT # 4.0 103/ul Normal 1.4-6.5 [facility] Comment on above: Performed By: #### C BC #### [facility] [address] [place] [address] Dr. Bibi Emerson Neutrophils/100 WBC (Bld) 60.9 % Normal 43.0-75.0 [facility] Comment on above: Performed By: #### C BC #### [facility] [address] [place] [address] [address] Bibi Emerson Platelet mean volume (Bld) [Entitic vol] 8.9 fL Critically low 9.5-13.5 [facility] Comment on above: Performed By: #### C BC #### [facility] [address] [place] [address] [address] Bibi Emerson PLT 303 103/ul Normal 150-450 [facility] Comment on above: Performed By: #### C BC #### [facility] [address] [place] [address] Dr. Bibi Emerson RBC 5.21 106/ul Normal 4.20-5.40 [facility] Comment on above: Performed By: #### C BC #### [facility] [address] [place] [address] Dr. Bibi Emerson WBC 6.5 103/ul Normal 4.0-11.0 [facility] Comment on above: Performed By: #### C BC #### [facility] [address] [place] [address] Dr. Bibi Emerson Covid-19 PCR ([facility])on 06-22 SARS-CoV-2 (COVID-19) RNA RAAD+probe Ql (Unsp spec) Detected Critically abnormal NOT DETECTED [facility] Comment on above: Result Comment: This test is not yet approved or cleared by the [place] FDA. When there are no FDA-approved or cleared tests available, and other criteria are met, FDA can make tests available under an emergency access mechanism called an Emergency Use Authorization (EUA). The EUA for this test is supported by the Telephone Assembler of Health and Human Service's (HHS's) declaration [...] used). Performed By: #### C VDTBH #### [facility] [address] [place] [address] Dr. Bibi Emerson INFLUENZA A AND B AGon 07-02 INFLUANE SEE BELOW Normal [facility] Comment on above: Result Comment: Nega tive for Flu A protein angiten. Infection due to Flu A cannot be ruled out. Flu A angiten in the sample may be below the detection limit of the test. Performed By: #### I NFLUAB ####[facility] [address] [place], [place] [address]Dr. Bibi Emerson INFLUBNEG SEE BELOW Normal [facility] Comment on above: Result Comment: Nega tive for Flu B protein antigen. Infection due to Flu B cannot be ruled out. Flu B antigen in the sample may be below the detection limit of the test. Performed By: #### I NFLUAB ####[facility] [address] [place], [place] [address]Dr. Bibi Emerson INFLUENZA A AG Negative Normal NEGATIVE SEE COMMENT [facility] Comment on above: Performed By: #### I NFLUAB ####[facility] [address] [place], [place] [address]Dr. Bibi Emerson INFLUENZA B AG Negative Normal NEGATIVE SEE COMMENT [facility] Comment on above: Performed By: #### I NFLUAB ####[facility] [address] [place], [place] [address]DrNorma Emerson INTERNAL CONTROLS Within Normal Limits Normal Wi thin Normal Limits [facility] Comment on above: Performed By: #### I NFLUAB ####[facility] [address] [place], [place] [address]DrNorma Emerson PROF CHEM 8 (BAS METB)on Anion gap [Moles/Vol] 12.0 mmol/L Normal [facility] Comment on above: Performed By: #### B MP #### [facility] [address] [place] [address] Dr. Bibi Emerson Calcium [Mass/Vol] 8.2 mg/dL Critically low 8.4-10.2 [facility] Comment on above: Performed By: #### B MP #### [facility] [address] [place] [address] [address] Bibi Emerson Chloride [Moles/Vol] 102 mmol/L Normal 98-107 [facility] Comment on above: Performed By: #### B MP #### [facility] [address] [place] [address] [address] Bibi Emerson CO2 [Moles/Vol] 27.6 mmol/L Normal 22.0-30.0 [facility] Comment on above: Performed By: #### B MP #### [facility] [address] [place] [address] [address] Bibi Emerson Creatinine [Mass/Vol] 1.03 mg/dL Normal 0.52-1.04 [facility] Comment on above: Performed By: #### B MP #### [facility] [address] [place] [address] Dr. Bibi Emerson EGFR-AF JAMAICAN >60 Normal >=60 [facility] Comment on above: Performed By: #### B MP #### [facility] [address] [place] [address] [address] Bibi Emerson EGFR-NON AF JAMAICAN 54 mL/min/1.73m2 Critically low >=60 [facility] Comment on above: Performed By: #### B MP #### [facility] [address] [place] [address] [address] Bibi Emerson Glucose [Mass/Vol] 127 mg/dL Critically high 74-106 [facility] Comment on above: Performed By: #### B MP #### [facility] [address] [place] [address] [address] Bibi Emerson Potassium [Moles/Vol] 3.6 mmol/L Normal 3.4-5.0 [facility] Comment on above: Performed By: #### B MP #### [facility] [address] [place] [address] Dr. Bibi Emerson Sodium [Moles/Vol] 138 mmol/L Normal 137-145 [facility] Comment on above: Performed By: #### B MP #### [facility] [address] [address] [address] Bibi Emerson Urea nitrogen [Mass/Vol] 18.0 mg/dL Critically high 7.0-17.0 [facility] Comment on above: Performed By: #### B MP #### [facility] [address] [place] [address] [address] Bibi Emerson Urea nitrogen/Creatinine [Mass ratio] 17.5 mg/mg Normal [facility] Comment on above: Performed By: #### B MP #### [facility] [address] [address] [address] Bibi Emerson XR CHEST 1 Von [...] GYPSY MUÑOZ Date: 2021-07-02 21:16 Normal [facility] Covid-19 PCR ([facility]VD[facility])on SARS-CoV-2 (COVID-19) RNA RAAD+probe Ql (Unsp spec) Not detected Normal NOT DETECTED [facility] Comment on above: Result Comment: This test is not yet approved or cleared by the [place] FDA. When there are no FDA-approved or cleared tests available, and other criteria are met, FDA can make tests available under an emergency access mechanism called an Emergency Use Authorization (EUA). The EUA for this test is supported by the Henderson of Health and Human Service's (HHS's) declaration [...] with SARS-CoV-2. Performed By: #### C VDTBH ####[facility] [address] [place], [place] [address]IbDr. Bibi Emerson TSH+FREE T4on 03-27-2021 Free T4 [Mass/Vol] 1.2 ng/dL Normal 0.8-1.8 [facility] Comment on above: Performed By: #### 5 8984 #### [facility] [address], [address] [place] [address] Flap Presser: Chalino Levy MD TSH Qn 2.23 m[IU]/L Normal 0.40-4.50 [facility] Comment on above: Performed By: #### 5 8984 #### [facility] [address], [address] [place] [address] Flap Presser: Chalino Levy MD Covid-19 PCR ([facility])on 02-20 SARS-CoV-2 (COVID-19) RNA RAAD+probe Ql (Unsp spec) Not detected Normal NOT DETECTED [facility] Comment on above: Result Comment: This test is not yet approved or cleared by the [place] FDA. When there are no FDA-approved or cleared tests available, and other criteria are met, FDA can make tests available under an emergency access mechanism called an Emergency Use Authorization (EUA). The EUA for this test is supported by the Henderson of Health and Human Service's (HHS's) declaration [...] Performed By: #### C VDTBH, CVDAGS #### [facility] [address] [place], [place] [address] Farida Yang SYMPTOMATIC COVID-19 ANTIGEN on 03-02-2021 EUA Statement SEE BELOW Normal [facility] Comment on above: Result Comment: This [...] Performed By: #### C VDTB, CVDAGS #### [facility] [address] [place] [address] Farida Yang SARS-CoV-2 (COVID-19) RNA RAAD+probe Ql (Unsp spec) Negative Normal NEGATIVE [facility] Comment on above: Result Comment: CONF IRMATION BY PCR PENDING PER CDC GUIDELINES/ SYMPTOMATIC PATIENT. Performed By: #### C VDTB, CVDAGS #### [facility] [address] [address] Farida Yang XR CHEST 1 Von 03-02-2021 [...] PALMER GREGORIO Date: 2021-03-02 13:11 Normal [facility] Basic Metabolic PanelOrdered By: Heena John on 11-22-2020 Anion gap [Moles/Vol] 9 mmol/L 9 - 17 mmol/L [employer] Work Phone: Calcium [Mass/Vol] 8.3 mg/dL Low 8.6 - 10. 4 mg/dL [employer] Phone: Chloride [Moles/Vol] 103 mmol/L 98 - 10 7 mmol/L [employer] Phone: CO2 [Moles/Vol] 29 mmol/L 20 - 31 mmol/L [employer] Phone: Creatinine [Mass/Vol] 0.77 mg/dL 0.50 - 0.90 mg/dL [employer] Phone: GFR >60 >60 mL/min [employer] Phone: GFR Non- >60 >60 mL/min [employer] Phone: GFR/1.73 sq M.predicted MDRD (S/P/Bld) [Vol rate/Area] [employer] Phone: Comment on above: Average GFR for 60-6 9 years old: 85 mL/min/1.73sq m Chronic Kidney Disease: <60 mL/min/1.73sq m Kidney failure: <15 mL/min/1.73sq m eGFR calculated using average adult body mass. Additional eGFR calculator available at: http://www.[employer]/multiple_crcl_2012.htm GFR/1.73 sq M.predicted MDRD (S/P/Bld) [Vol rate/Area] NOT REPORTED [employer] Phone: Glucose [Mass/Vol] 131 mg/dL High 70 - 99 mg/dL [employer] Phone: Interpretation and review of laboratory results Abnormal [employer] Phone: Potassium [Moles/Vol] 4.5 mmol/L 3.7 - 5.3 mmol/L [employer] Phone: Sodium [Moles/Vol] 141 mmol/L 135 - 144 mmol/L [employer] Phone: Urea nitrogen (BldV) [Mass/Vol] 21 mg/dL 8 - 23 mg/dL Work Phone: Urea nitrogen/Creatinine (Bld) [Mass ratio] NOT REPORTED [employer] Phone: Work Phone: Basic Metabolic Profon 11-22 (cont.) Normal [facility] Comment on above: Result Comment: Aver age GFR for 60-69 years old: 85 mL/min/1.73sq m Chronic Kidney Disease: <60 mL/min/1.73sq m Kidney failure: <15 mL/min/1.73sq m eGFR calculated using average adult body mass. Additional eGFR calculator available at: [email or web address].[email or web address]_[email or web address].htm Performed By: #### C DP, BMP #### [facility] [address] [place] [address] Chief Recordist: Justin Chambers DO Anion gap [Moles/Vol] 9 mmol/L Normal 9-17 [facility] Comment on above: Performed By: #### C MARION, BMP #### [facility] [place] [address] Chief Recordist: Justin Chambers DO Calcium [Mass/Vol] 8.3 mg/dL Low 8.6-10.4 [facility] Comment on above: Performed By: #### C DP, BMP #### [facility] [address] [place] [address] Chief Recordist: Justin Chambers DO Chloride [Moles/Vol] 103 mmol/L Normal 98-107 [facility] Comment on above: Performed By: #### C DP, BMP #### [facility] [address] [place] [address] Chief Recordist: Fanelly, Justin, DO CO2 [Moles/Vol] 29 mmol/L Normal 20-31 [facility] Comment on above: Performed By: #### C DP, BMP #### [facility] [address] [place] [address] Chief Recordist: Justin Chambers DO Creatinine [Mass/Vol] 0.77 mg/dL Normal 0.50-0.90 [facility] Comment on above: Performed By: #### C DP, BMP #### [facility] [address] [place] [address] Chief Recordist: Justin Chambers, DO GFR, Amer >60 Normal >60 [facility] Comment on above: Performed By: #### C DP, BMP #### [facility] [address] [place] [address] Chief Recordist: Justin Chambers, DO GFR,non Amer >60 Normal >60 [facility] Comment on above: Performed By: #### C DP, BMP #### [facility] [place] [address] Chief Recordist: Justin Chambers DO Glucose [Mass/Vol] 131 mg/dL High 70-99 [facility] Comment on above: Performed By: #### C DP, BMP #### [facility] [place] [address] Chief Recordist: Justin Chambers DO Potassium [Moles/Vol] 4.5 mmol/L Normal 3.7-5.3 [facility] Comment on above: Performed By: #### C DP, BMP #### [facility] [address] [place] [address] Chief Recordist: Justin Chambers DO Sodium [Moles/Vol] 141 mmol/L Normal 135-144 [facility] Comment on above: Performed By: #### C DP, BMP #### [facility] [address] [facility] [place] [address] Chief Recordist: Justin Chambers DO Urea nitrogen [Mass/Vol] 21 mg/dL Normal 8-23 [facility] Comment on above: Performed By: #### C DP, BMP #### [facility] [address] [place] [address] Chief Recordist: Justin Chambers DO BUN/CRE Ratio NOT REPORTED Normal 9-20 [facility] Comment on above: Performed By: #### C DP, BMP #### [facility] [address] [place] [address] Chief Recordist: Justin Chambers DO Staging: NOT REPORTED Normal [facility] Comment on above: Performed By: #### C DP, BMP #### [facility] [address] [place] [address] Chief Recordist: Justin Chambers DO CBC Auto DifferentialOrdered By: Heena John on 11-22-2020 [employer] Eos # 0.40 [facility] Work Phone: Absolute Immature Granulocyte NOT REPORTED Work Phone: Absolute Lymph # 1.80 [facility] Work Phone: Absolute Dolores # 0.50 [facility] Work Phone: Basophils (Bld) [#/Vol] 0.10 10*3/uL [facility] Work Phone: Basophils/100 WBC (Bld) 1 % 0 - 2 % [employer] Work Phone: Differential Type NOT REPORTED Work Phone: Eosinophils/100 WBC (Bld) 4 % 0 - 4 % [facility] Work Phone: Hematocrit (Bld) [Volume fraction] 42.5 % 36 - 46 % [employer] Phone: Hemoglobin.gastrointes tinal spec 1 Ql (Stl) 13.8 g/dL 12.0 - 16.0 g/dL [employer] Phone: Immature Granulocytes NOT REPORTED 0 % [employer] Phone: Interpretation and review of laboratory results Abnormal [employer] Phone: Lymphocytes/100 WBC (Bld) 19 % Low 24 - 44 % [employer] Phone: MCH (RBC) [Entitic mass] 29.5 pg 26 - 34 pg [employer] Phone: MCHC (RBC) [Mass/Vol] 32.5 g/dL 31 - 3 7 g/dL [employer] Phone: MCV (RBC) [Entitic vol] 90.8 fL 80 - 100 fL [employer] Phone: Monocytes/100 WBC (Bld) 6 % 1 - 7 % [employer] Phone: NRBC Automated NOT REPORTED per 100 WBC [employer] [facility] Work Phone: Platelet distribution width (Bld) [Ratio] 13.3 % 11.5 - 14.9 % [employer] Phone: Platelet Estimate NOT REPORTED [employer] Phone: Platelet mean volume (Bld) [Entitic vol] 7.2 fL 6.0 - 12.0 fL [employer] Phone: Platelets (Bld) [#/Vol] 388 10*3/uL [employer] Phone: RBC (Bld) [#/Vol] 4.68 10*6/uL 4.0 - 5.2 m/uL [employer] Phone: RBC (Bld) [#/Vol] NOT REPORTED [employer] Phone: Segmented neutrophils/100 WBC (Bld) 70 % High 36 - 66 % [employer] Work Phone: Segs Absolute 6.70 [facility] [employer] Work Phone: WBC (Bld) [#/Vol] 9.4 10*3/uL [facility] [employer] Work Phone: WBC (Bld) [#/Vol] NOT REPORTED [employer] Work Phone: [employer] Work Phone: CBC with Diffon 11-22-2020 Abs. Basophil 0.10 k/uL Normal 0.0-0.2 [facility] Comment on above: Performed By: #### C DP, BMP #### [facility] [address] [place] [address] Chief Recordist: Justin Chambers DO Abs.Neutrophil (Seg) 6.70 k/uL Normal 1.3-9.1 [facility] Comment on above: Performed By: #### C DP, BMP #### [facility] [address] [place] [address] Chief Recordist: Justin Chambers DO Basophils/100 WBC (Bld) 1 % Normal 0-2 [facility] Comment on above: Performed By: #### C DP, BMP #### [facility] [address] [place] [address] Chief Recordist: Justin Chambers DO Eosinophils (Bld) [#/Vol] 0.40 10*3/uL Normal 0.0-0.4 [facility] Comment on above: Performed By: #### C DP, BMP #### [facility] [address] [place] [address] Chief Recordist: Justin Chambers DO Eosinophils/100 WBC (Bld) 4 % Normal 0-4 [facility] Comment on above: Performed By: #### C DP, BMP #### [facility] [place] [address] Chief Recordist: Justin Chambers DO Erythrocyte distribution width (RBC) [Ratio] 13.3 % Normal 11.5-14.9 [facility] Comment on above: Performed By: #### C DP, BMP #### [facility] [address] [place] [address] Chief Recordist: Justin Chambers DO Hematocrit (Bld) [Volume fraction] 42.5 % Normal 36-46 [facility] Comment on above: Performed By: #### C DP, BMP #### [facility] [address] [place] [address] Chief Recordist: Justin Chambers DO Hemoglobin (Bld) [Mass/Vol] 13.8 g/dL Normal 12.0-16.0 [facility] Comment on above: Performed By: #### C MARION, BMP #### [facility] [address] [place] [address] Chief Recordist: Justin Chambers DO Lymphocytes (Bld) [#/Vol] 1.80 10*3/uL Normal 1.0-4.8 [facility] Comment on above: Performed By: #### C DP, BMP #### [facility] [address] [place] [address] Chief Recordist: Justin Chambers DO Lymphocytes/100 WBC (Bld) 19 % Low 24-44 [facility] Comment on above: Performed By: #### C DP, BMP #### [facility] [address] [place] [address] Chief Recordist: Justin Chambers DO MCH (RBC) [Entitic mass] 29.5 pg Normal 26-34 [facility] Comment on above: Performed By: #### C DP, BMP #### [facility] [place] [address] Chief Recordist: Justin Chambers DO MCHC (RBC) [Mass/Vol] 32.5 g/dL Normal 31-37 [facility] Comment on above: Performed By: #### C DP, BMP #### [facility] [address] [place] [address] Chief Recordist: Justin Chambers DO MCV (RBC) [Entitic vol] 90.8 fL Normal 80-100 [facility] Comment on above: Performed By: #### C DP, BMP #### [facility] [address] [place] [address] Chief Recordist: Justin Chambers DO Monocytes (Bld) [#/Vol] 0.50 10*3/uL Normal 0.1-1.3 [facility] Comment on above: Performed By: #### C DP, BMP #### [facility] [address] [place] [address] Chief Recordist: Justin Chambers DO Monocytes/100 WBC (Bld) 6 % Normal 1-7 [facility] Comment on above: Performed By: #### C DP, BMP #### [facility] [address] [place] [address] Chief Recordist: Justin Chambers DO Neutrophil (Seg) 70 % High 36-66 [facility] Comment on above: Performed By: #### C DP, BMP #### [facility] [address] [place] [address] Chief Recordist: Justin Chambers DO Platelet mean volume (Bld) [Entitic vol] 7.2 fL Normal 6.0-12.0 [facility] Comment on above: Performed By: #### C DP, BMP #### [facility] [address] [facility] [place] [address] Chief Recordist: Justin Chambers DO Platelets (Bld) [#/Vol] 388 10*3/uL Normal 150-450 [facility] Comment on above: Performed By: #### C DP, BMP #### [facility] [place] [address] Chief Recordist: Justin Chambers DO RBC (Bld) [#/Vol] 4.68 10*6/uL Normal 4.0-5.2 [facility] Comment on above: Performed By: #### C DP, BMP #### [facility] [address] [place] [address] Chief Recordist: Justin Chambers DO WBC (Bld) [#/Vol] 9.4 10*3/uL Normal 3.5-11.0 [facility] Comment on above: Performed By: #### C DP, BMP #### [facility] [address] [place] [address] Chief Recordist: Justin Chambers DO Abs.Imm.Granulocyte NOT REPORTED Normal 0.00-0.30 [facility] Comment on above: Performed By: #### C DP, BMP #### [facility] [address] [place] [address] Chief Recordist: Justin Chambers DO Auto Diff Performed NOT REPORTED Normal [facility] Comment on above: Performed By: #### C DP, BMP #### [facility] [address] [place] [address] Chief Recordist: Justin Chambers DO Immature Granulocyte NOT REPORTED Normal 0 [facility] Comment on above: Performed By: #### C DP, BMP #### [facility] [place] [address] Chief Recordist: Justin Chambers DO NRBC Automated NOT REPORTED Normal [facility] Comment on above: Performed By: #### C DP, BMP #### [facility] [address] [facility] [place] [address] Chief Recordist: Justin Chambers DO Platelet Estimate NOT REPORTED Normal [facility] Comment on above: Performed By: #### C DP, BMP #### [facility] [address] [facility] [place] [address] Chief Recordist: Justin Chambers DO RBC morphology finding Nom (Bld) NOT REPORTED Normal [facility] Comment on above: Performed By: #### C DP, BMP #### [facility] [place] [address] Chief Recordist: Justin Chambers DO WBC Morphology NOT REPORTED Normal [facility] Comment on above: Performed By: #### C DP, BMP #### [facility] [address] [facility] [place] [address] Chief Recordist: Justin Chambers DO COVID-19, RapidOrdered By: Ifeoma John on 11-22-2020 SARS-CoV-2 (COVID-19) RNA RAAD+probe Ql (Unsp spec) Not detected Not Detected Work Phone: Comment on above: Rapid NAAT: [...] management decisions. Fact sheet for Healthcare Providers: https://www.fda.gov/media/211500/download Fact sheet for Patients: https://www.fda.gov/media/883961/download Methodology: Isothermal Nucleic Acid Amplification Specimen Description .NASOPHARYNGEAL SWAB [employer] Phone: [employer] Phone: [id number] 11-22-2020 SARS-CoV-2 (COVID-19) RNA RAAD+probe Ql (Unsp spec) Not detected Normal NOTDET [facility] Comment on above: Result Comment: Rapid [...] management decisions. Fact sheet for Healthcare Providers: https://www.fda.gov/media/252614/download Fact sheet for Patients: https://www.fda.gov/media/366296/download Methodology: Isothermal Nucleic Acid Amplification Performed By: #### C OVRB #### [facility] [address] [place] [address] Chief Recordist: Justin Chambers DO XR CHEST PORTABLEon 11-23-19 [...] MD 11/22/20 Final result Normal [facility] XR CHEST PORTABLEOrdered By: Heena John on 11-22-2020 No acute cardiopulmonary process. Stable cardiomegaly and chronic basilar changes. [employer] Phone: EXAMINATION: ONE XRA Y VIEW OF [...] are age-appropriate. Chronic basilar changes are noted. [employer] Phone: Jose Antonio, pn Incoming Radiant Results From [employer] - 11/22/2020 1:15 PM EDT EXAMINATION: ONE [...] process. Stable cardiomegaly and chronic basilar changes. [employer] Phone: [employer] Phone: CT HEAD WO CONTRASTon 2019 CT [...] MD 04/18/20 Final result Normal [facility] CBCon 04-16-2020 Erythrocyte distribution width (RBC) [Ratio] 13.0 % Normal 11.8-14.4 [facility] Comment on above: Performed By: #### C MEERA HARRIS, TSH #### [facility] [address] [place] [address] Chief Recordist: Beau Troncoso MD Hematocrit (Bld) [Volume fraction] 45.8 % Normal 36.3-47.1 [facility] Comment on above: Performed By: #### C MEERA HARRIS, TSH #### [employer] [address] [place], [place] [phone] Chief Recordist: Beau Troncoso MD Hemoglobin (Bld) [Mass/Vol] 14.3 g/dL Normal 11.9-15.1 [facility] Comment on above: Performed By: #### C MEERA HARRIS, TSH #### [facility] [address] [place] [address] Chief Recordist: Beau Troncoso MD MCH (RBC) [Entitic mass] 29.5 pg Normal 25.2-33.5 [facility] Comment on above: Performed By: #### C BC, CP, TSH #### [address] [address] Chief Recordist: Beau Troncoso MD MCHC (RBC) [Mass/Vol] 31.2 g/dL Normal 28.4-34.8 [facility] Comment on above: Performed By: #### C BC, CP, TSH #### [address] [address] Chief Recordist: Beau Troncoso MD MCV (RBC) [Entitic vol] 94.6 fL Normal 82.6-102.9 [facility] Comment on above: Performed By: #### C BC, CP, TSH #### [address] [address] Chief Recordist: Beau Troncoso MD NRBC Automated 0.0 per 100 WBC Normal 0.0 [facility] Comment on above: Performed By: #### C BC, CP, TSH #### [address] [address] Chief Recordist: Beau Troncoso MD Platelet mean volume (Bld) [Entitic vol] 9.6 fL Normal 8.1-13.5 [facility] Comment on above: Performed By: #### C BC, CP, TSH #### [facility] [address] [place] [address] Chief Recordist: Beau Troncoso MD Platelets (Bld) [#/Vol] 419 10*3/uL Normal 138-453 [facility] Comment on above: Performed By: #### C BC, CP, TSH #### [address] [address] Chief Recordist: Beau Troncoso MD RBC (Bld) [#/Vol] 4.84 10*6/uL Normal 3.95-5.11 [facility] Comment on above: Performed By: #### C MEERA HARRIS, TSH #### [facility] [address] [place], [place] [id number] Chief Recordist: Beau Troncoso MD WBC (Bld) [#/Vol] 7.6 10*3/uL Normal 3.5-11.3 [facility] Comment on above: Performed By: #### C MEERA HARRIS, TSH #### [facility] [address] [place], [place] [phone] Chief Recordist: Beau Troncoso MD Erythrocyte distribution width (RBC) [Ratio] 13.0 % 11.8 - 14.4 % [place] Hematocrit (Bld) [Volume fraction] 45.8 % 36.3 - 47.1 % [place] Hemoglobin (Bld) [Mass/Vol] 14.3 g/dL 11.9 - 15.1 g/dL [place] MCH (RBC) [Entitic mass] 29.5 pg 25.2 - 33.5 pg [place] MCHC (RBC) [Mass/Vol] 31.2 g/dL 28.4 - 34.8 g/dL [place] MCV (RBC) [Entitic vol] 94.6 fL 82.6 - 102.9 fL [place] Platelet mean volume (Bld) [Entitic vol] 9.6 fL 8.1 - 13.5 fL [place] Platelets (Bld) [#/Vol] 419 10*3/uL [place] RBC (Bld) [#/Vol] 4.84 10*6/uL 3.95 - 5.1 1 m/uL [place] WBC (Bld) [#/Vol] 0.0 10*3/uL 0.0 per 10 0 WBC [place] WBC (Bld) [#/Vol] 7.6 10*3/uL [place] Comp Metabolic Profon 10-26- 2020 (cont.) Normal [facility] Comment on above: Result Comment: Aver age GFR for 60-69 years old: 85 mL/min/1.73sq m Chronic Kidney Disease: <60 mL/min/1.73sq m Kidney failure: <15 mL/min/1.73sq m eGFR calculated using average adult body mass. Additional eGFR calculator available at: http://www.[employer]/multiple_crcl_2012.htm Performed By: #### C MEERA HARRIS, TSH #### [facility] [employer] [address] [place] [address] Chief Recordist: Beau Troncoso MD Albumin [Mass/Vol] 4.0 g/dL Normal 3.5-5.2 [facility] Comment on above: Performed By: #### Felisha HARRIS CP, TSH #### [address] [address] Chief Recordist: Beau Troncoso MD Albumin/Globulin [Mass ratio] 1.4 {ratio} Normal 1.0-2.5 [facility] Comment on above: Performed By: #### C MEERA HARRIS, TSH #### [address] [address] Chief Recordist: Beau Troncoso MD Alkaline Phos 67 U/L Normal 35-104 [facility] Comment on above: Performed By: #### Felisha HARRIS CP, TSH #### [facility] [place] [address] Chief Recordist: Beau Troncoso MD ALT [Catalytic activity/Vol] 13 U/L Normal 5-33 [facility] Comment on above: Performed By: #### C MEERA HARRIS, TSH #### [facility] [employer] [address] [place] [address] Chief Recordist: Beau Troncoso MD Anion gap [Moles/Vol] 8 mmol/L Low 9-17 [facility] Comment on above: Performed By: #### C BC, CP, TSH #### [facility] [address] [place] [address] Chief Recordist: Beau Troncoso MD AST [Catalytic activity/Vol] 12 U/L Normal <32 [facility] Comment on above: Performed By: #### C BC, CP, TSH #### [facility] [address] [place] [address] Chief Recordist: Beau Troncoso MD Bilirubin Ql (U) 0.30 mg/dL Normal 0.3-1.2 [facility] Comment on above: Performed By: #### C BC, CP, TSH #### [facility] [address] [place] [address] Chief Recordist: Beau Troncoso MD Calcium [Mass/Vol] 8.7 mg/dL Normal 8.6-10.4 [facility] Comment on above: Performed By: #### C BC, CP, TSH #### [facility] [address] [place] [address] Chief Recordist: Beau Troncoso MD Chloride [Moles/Vol] 102 mmol/L Normal 98-107 [facility] Comment on above: Performed By: #### C BC, CP, TSH #### [facility] [address] [place] [address] Chief Recordist: Beau Troncoso MD CO2 [Moles/Vol] 32 mmol/L High 20-31 [facility] Comment on above: Performed By: #### C BC, CP, TSH #### [facility] [address] [place] [address] Chief Recordist: Beau Troncoso MD Creatinine [Mass/Vol] 0.78 mg/dL Normal 0.50-0.90 [facility] Comment on above: Performed By: #### C BC, CP, TSH #### [facility] [address] [place] [address] Chief Recordist: Beau Troncoso MD GFR, Amer >60 Normal >60 [facility] Comment on above: Performed By: #### C BC, CP, TSH #### [facility] [address] [place] [address] Chief Recordist: Beau Troncoso MD GFR,non Amer >60 Normal >60 [facility] Comment on above: Performed By: #### C BC, CP, TSH #### [facility] [address] [place] [address] Chief Recordist: Beau Troncoso MD Glucose [Mass/Vol] 86 mg/dL Normal 70-99 [facility] Comment on above: Performed By: #### C KIMBERLY CP, TSH #### [facility] [address] [place] [address] Chief Recordist: Beau Troncoso MD Potassium [Moles/Vol] 4.7 mmol/L Normal 3.7-5.3 [facility] Comment on above: Performed By: #### C KIMBERLY CP, TSH #### [facility] [address] [place] [address] Chief Recordist: Beau Troncoso MD Protein [Mass/Vol] 6.8 g/dL Normal 6.4-8.3 [facility] Comment on above: Performed By: #### C KIMBERLY CP, TSH #### [facility] [address] [place] [address] Chief Recordist: Beau Troncoso MD Sodium [Moles/Vol] 142 mmol/L Normal 135-144 [facility] Comment on above: Performed By: #### C BC, CP, TSH #### [facility] [address] [place] [address] Chief Recordist: Beau Troncoso MD Urea nitrogen [Mass/Vol] 22 mg/dL Normal 8-23 [facility] Comment on above: Performed By: #### C BC, CP, TSH #### [facility] [address] [place], [place] [id number] Chief Recordist: Beau Troncoso MD BUN/CRE Ratio NOT REPORTED Normal 9-20 [facility] Comment on above: Performed By: #### C BC, CP, TSH #### [facility] [address] [place], [place] [id number] Chief Recordist: Beau Troncoso MD Staging: NOT REPORTED Normal [facility] Comment on above: Performed By: #### C BC, CP, TSH #### [facility] [address] [place], [place] [phone] Chief Recordist: Beau Troncoso MD [facility] Metabolic [facility] 04-16-2020 Albumin [Mass/Vol] 4 g/dL 3.5 - 5.2 g/dL [place] Albumin/Globulin [Mass ratio] 1.4 {ratio} [place] ALP [Catalytic activity/Vol] 67 U/L 35 - 104 U/L [place] ALT [Catalytic activity/Vol] 13 U/L 5 - 33 U/L [place] Anion gap [Moles/Vol] 8 mmol/L Low 9 - 17 mmol/L [place] AST [Catalytic activity/Vol] 12 U/L <32 [place] Bilirubin Ql (U) 0.30 mg/dL 0.3 - 1.2 mg/dL [place] Bun/Cre Ratio NOT REPORTED [place] Calcium [Mass/Vol] 8.7 mg/dL 8.6 - 10. 4 mg/dL [place] Chloride [Moles/Vol] 102 mmol/L 98 - 10 7 mmol/L [place] CO2 [Moles/Vol] 32 mmol/L High 20 - 31 mmol/L [place] Creatinine [Mass/Vol] 0.78 mg/dL 0.5 - 0.9 mg/dL [place] GFR >60 >60 mL/min [place] GFR Non- >60 >60 mL/min [place] GFR/1.73 sq M predicted among non-blacks MDRD (S/P/Bld) [Vol rate/Area] [place] Comment on above: Average GFR for 60-6 9 years old: 85 mL/min/1.73sq m Chronic Kidney Disease: <60 mL/min/1.73sq m Kidney failure: <15 mL/min/1.73sq m eGFR calculated using average adult body mass. Additional eGFR calculator available at: http://www.[employer]/multiple_crcl_2012.htm GFR/1.73 sq M predicted among non-blacks MDRD (S/P/Bld) [Vol rate/Area] NOT REPORTED [place] Glucose [Mass/Vol] 86 mg/dL 70 - 99 mg/dL [place] Interpretation and review of laboratory results Abnormal [place] Potassium [Moles/Vol] 4.7 mmol/L 3.7 - 5.3 mmol/L [place] Protein [Mass/Vol] 6.8 g/dL 6.4 - 8.3 g/dL [place] Sodium [Moles/Vol] 142 mmol/L 135 - 144 mmol/L [place] Urea nitrogen [Mass/Vol] 22 mg/dL 8 - 23 mg/dL [place] Hemoglobin A1Con 04-16-2020 Glucose [Mass/Vol] 126 mg/dL [place] Comment on above: The ADA and AACC rec ommend providing the estimated average glucose result to permit better patient understanding of their HBA1c result. HbA1c (Bld) [Mass fraction] 6.0 % 4 - 6 % [place] TSH without Reflexon 020 TSH Qn 0.89 m[IU]/L [place] Thyroid Stim. Horm.on 2019 TSH Qn 0.89 m[IU]/L Normal 0.30-5.00 [facility] Comment on above: Performed By: #### C BC, CP, TSH #### [facility] [employer] [address] [place] [address] Chief Recordist: Beau Troncoso MD MRI SHOULDER RIGHT WO [...] MD 03/25/20 Final result Normal [facility] 1. Moderate acromioclavicular osteoarthritis with reactive edema in the distal clavicle and acromion. 2. Minimal 2 mm interstitial tear of the infraspinatus tendon. Mild bursal surface fraying of the supraspinatus and infraspinatus tendons. No additional rotator cuff tear. 3. No biceps tear. [facility], [place] EXAMINATION: MRI OF THE RIGHT SHOULDER [...] are without obstructing or space occupying lesions. - [place], [place] Jose Antonio, Mhpn Incoming Radiant Results From [facility] - 03/25/2020 4:57 PM EDT EXAMINATION: MRI [...] rotator cuff tear. 3. No biceps tear. [place] C-Reactive Proteinon 11-01-2 020 CRP [Mass/Vol] 13 mg/L High 0 - 5 mg/L [place], [place] CBC Auto Differentialon 10-20 Basophils (Bld) [#/Vol] 0.10 10*3/uL [place] Basophils/100 WBC (Bld) 1 % 0 - 2 % [place] Differential Type NOT REPORTED [place] Eosinophils (Bld) [#/Vol] 0.20 10*3/uL [place] Eosinophils/100 WBC (Bld) 3 % 0 - 4 % [place] Erythrocyte distribution width (RBC) [Ratio] 13.0 % 11.5 - 14.9 % [place] Hematocrit (Bld) [Volume fraction] 42.0 % 36 - 46 % [place] Hemoglobin (Bld) [Mass/Vol] 13.8 g/dL 12 - 16 g/dL [place] Interpretation and review of laboratory results Abnormal [place] Lymphocytes (Bld) [#/Vol] 1.10 10*3/uL [place] Lymphocytes/100 WBC (Bld) 13 % Low 24 - 44 % [place] MCH (RBC) [Entitic mass] 30.5 pg 26 - 34 pg [place] MCHC (RBC) [Mass/Vol] 32.7 g/dL 31 - 3 7 g/dL [place] MCV (RBC) [Entitic vol] 93.1 fL 80 - 100 fL [place] Monocytes (Bld) [#/Vol] 0.50 10*3/uL [place] Monocytes/100 WBC (Bld) 5 % 1 - 7 % [place] Platelet mean volume (Bld) [Entitic vol] 6.9 fL 6 - 12 fL [place] Platelets (Bld) [#/Vol] 382 10*3/uL [place] Platelets (Bld) [#/Vol] NOT REPORTED [place] RBC (Bld) [#/Vol] 4.51 10*6/uL 4 - 5.2 m/uL [place] RBC morphology finding Nom (Bld) NOT REPORTED [place] Segmented neutrophils/100 WBC (Bld) 78 % High 36 - 66 % [place] Segs Absolute 6.90 [place] WBC (Bld) [#/Vol] 8.8 10*3/uL [place] WBC (Bld) [#/Vol] NOT REPORTED per 100 WBC [place] WBC Morphology NOT REPORTED [place] Comprehensive Metabolic Pane deven 11-02-2019 Albumin [Mass/Vol] 4.1 g/dL 3.5 - 5.2 g/dL [place] Albumin/Globulin [Mass ratio] NOT REPORTED [place] ALP [Catalytic activity/Vol] 61 U/L 35 - 104 U/L [place] ALT [Catalytic activity/Vol] 13 U/L 5 - 33 U/L [place] Anion gap [Moles/Vol] 7 mmol/L Low 9 - 17 mmol/L [place] AST [Catalytic activity/Vol] 12 U/L <32 [place] Bilirubin Ql (U) 0.29 mg/dL Low 0.3 - 1.2 mg/dL [place] Bun/Cre Ratio NOT REPORTED [place] Calcium [Mass/Vol] 8.7 mg/dL 8.6 - 10. 4 mg/dL [place] Chloride [Moles/Vol] 101 mmol/L 98 - 10 7 mmol/L [place] CO2 [Moles/Vol] 31 mmol/L 20 - 31 mmol/L [place] Creatinine [Mass/Vol] 0.72 mg/dL 0.5 - 0.9 mg/dL [place] GFR >60 >60 mL/min [place] GFR Non- >60 >60 mL/min [place] GFR/1.73 sq M predicted among non-blacks MDRD (S/P/Bld) [Vol rate/Area] NOT REPORTED [place] GFR/1.73 sq M predicted among non-blacks MDRD (S/P/Bld) [Vol rate/Area] [place] Comment on above: Average GFR for 60-6 9 years old: 85 mL/min/1.73sq m Chronic Kidney Disease: <60 mL/min/1.73sq m Kidney failure: <15 mL/min/1.73sq m eGFR calculated using average adult body mass. Additional eGFR calculator available at: http://www.[employer]/MLW Squared_crcl_2011.htm Glucose [Mass/Vol] 118 mg/dL High 70 - 99 mg/dL [place] Potassium [Moles/Vol] 4.8 mmol/L 3.7 - 5.3 mmol/L [place] Protein [Mass/Vol] 7.5 g/dL 6.4 - 8.3 g/dL [place] Sodium [Moles/Vol] 139 mmol/L 135 - 144 mmol/L [place] Urea nitrogen [Mass/Vol] 21 mg/dL 8 - 23 mg/dL [place] D-Dimer, Quantitativeon 10-20 D-Dimer, Quant <0.27 [place] Comment on above: When combined with [...] LD 173 U/L 135 - 214 U/L [place] Lactic Acid, Plasmaon 2019 Lactate [Moles/Vol] 0.5 mmol/L 0.5 - 2. 2 mmol/L [place] Lactic Acid, Whole Blood NOT REPORTED 0.7 - 2.1 mmol/L [place] Otheron 11-02-2019 Interpretation and review of laboratory results Abnormal [place] Immature granulocytes (Bld) [#/Vol] NOT REPORTED [place] Troponinon 11-02-2019 Troponin I.cardiac [Mass/Vol] NOT REPORTED [place] Troponin T.cardiac [Mass/Vol] NOT REPORTED <0.03 ng/mL [place] Troponin, High Sensitivity <6 0 - 14 ng/L [place] Comment on above: High Sensitivity Troponin values cannot be compared with other Troponin methodologies. Patients with high levels of Biotin oral intake (i.e >5mg/day) may have falsely decreased Troponin levels. Samples collected within 8 hours of biotin intake may require additional information for diagnosis. Troponin I.cardiac [Mass/Vol] NOT REPORTED [place] Troponin T.cardiac [Mass/Vol] NOT REPORTED <0.03 ng/mL [place] Troponin, High Sensitivity <6 0 - 14 ng/L [place] Comment on above: High Sensitivity Troponin [...] unremarkable. The extrathoracic soft tissues are unremarkable. [place] Cardiomegaly and chronic pulmonary change without acute pulmonary process. [place] Jose Antonio, Mhpn Incoming Radiant Results From [facility] - 11/02/2019 10:59 AM EDT EXAMINATION: ONE [...] chronic pulmonary change without acute pulmonary process. [place] B.A.L. CELL COUNTon 10-07-19 20 Fluid Diff Comment Reviewed by pathologist: Justin Chambers D.O. [place] Comment on above: SLIDE REVIEWED. MACR OPHAGES AND MIXED INFLAMMATORY CELLS NOTED. CORRECTED ON 10/06 AT 1306: PREVIOUSLY REPORTED TO BE REVIEWED BY PATHOLOGIST RBC (Bld) [#/Vol] 913 /mm3 [place] Specimen type Nom (Spec) .BRONCHIAL WASHINGS [place] WBC (Bld) [#/Vol] 38 /mm3 [place] Culture, Respiratoryon 10-06 Culture NORMAL RESPIRATORY CHERYL MODERATE GROWTH [place] Direct Exam FEW NEUTROPHILS Abnormal [place] Interpretation and review of laboratory results Abnormal [place] Special Requests NOT REPORTED [place] Specimen Description .BRONCHIAL WASHINGS [place] Fungal stainon 10-07-2019 Direct Exam NO FUNGAL ELEMENTS SEEN [place] Special Requests NOT REPORTED [place] Specimen Description .BRONCHIAL WASHINGS [place] Otheron 10-07-2019 Direct Exam Positive Abnormal [place] CBC with DIFFon 10-06-2019 Basophils (Bld) [#/Vol] 0.14 10*3/uL [place] Basophils/100 WBC (Bld) 1 % 0 - 2 % [place] Differential Type NOT REPORTED [place] Eosinophils (Bld) [#/Vol] 0.00 10*3/uL [place] Eosinophils/100 WBC (Bld) 0 % 0 - 4 % [place] Erythrocyte distribution width (RBC) [Ratio] 13.4 % 11.5 - 14.9 % [place] Hematocrit (Bld) [Volume fraction] 40.9 % 36 - 46 % [place] Hemoglobin (Bld) [Mass/Vol] 13.5 g/dL 12 - 16 g/dL [place] Interpretation and review of laboratory results Abnormal [place] Lymphocytes (Bld) [#/Vol] 1.15 10*3/uL [place] Lymphocytes/100 WBC (Bld) 8 % Low 24 - 44 % [place] MCH (RBC) [Entitic mass] 30.6 pg 26 - 34 pg [place] MCHC (RBC) [Mass/Vol] 33.0 g/dL 31 - 3 7 g/dL [place] MCV (RBC) [Entitic vol] 92.7 fL 80 - 100 fL [place] Monocytes (Bld) [#/Vol] 0.29 10*3/uL [place] Monocytes/100 WBC (Bld) 2 % 1 - 7 % [place] Morphology Den (Bld) [Interp] Normal [place] Platelet mean volume (Bld) [Entitic vol] 7.3 fL 6 - 12 fL [place] Platelets (Bld) [#/Vol] NOT REPORTED [place] Platelets (Bld) [#/Vol] 419 10*3/uL [place] RBC (Bld) [#/Vol] 4.41 10*6/uL 4 - 5.2 m/uL [place] RBC morphology finding Nom (Bld) NOT REPORTED [place] Segmented neutrophils/100 WBC (Bld) 89 % High 36 - 66 % [place] Segs Absolute 12.82 [place] WBC (Bld) [#/Vol] NOT REPORTED per 100 WBC [place] WBC (Bld) [#/Vol] 14.4 10*3/uL [place] WBC Morphology NOT REPORTED [place] Cell Count with Diff, BALon 10-06-2019 BAL Diff Comment TO BE REVIEWED BY PATHOLOGIST [place] Columnar Epis BAL PRESENT [place] Eosinophils/100 WBC (Bld) 4 % High 0 - 1 % [place] Interpretation and review of laboratory results Abnormal [place] Lymphocytes/100 WBC (Bld) 13 % High 8 - 12 % [place] Macrophages, BAL 61 % Low 85 - 95 % [place] Segmented neutrophils/100 WBC (Bld) 22 % High 0 - 10 % [place] Comp Metabolic Profon 2019 Albumin [Mass/Vol] 3.5 g/dL 3.5 - 5.2 g/dL [place] Albumin/Globulin [Mass ratio] NOT REPORTED [place] ALP [Catalytic activity/Vol] 49 U/L 35 - 104 U/L [place] ALT [Catalytic activity/Vol] 10 U/L 5 - 33 U/L [place] Anion gap [Moles/Vol] 12 mmol/L 9 - 17 mmol/L [place] AST [Catalytic activity/Vol] 12 U/L <32 [place] Bilirubin Ql (U) 0.30 mg/dL 0.3 - 1.2 mg/dL [place] Bun/Cre Ratio NOT REPORTED [place] Calcium [Mass/Vol] 9.0 mg/dL 8.6 - 10. 4 mg/dL [place] Chloride [Moles/Vol] 100 mmol/L 98 - 10 7 mmol/L [place] CO2 [Moles/Vol] 26 mmol/L 20 - 31 mmol/L [place] Creatinine [Mass/Vol] 0.72 mg/dL 0.5 - 0.9 mg/dL [place] GFR >60 >60 mL/min [place] GFR Non- >60 >60 mL/min [place] GFR/1.73 sq M predicted among non-blacks MDRD (S/P/Bld) [Vol rate/Area] [place] Comment on above: Average GFR for 60-6 9 years old: 85 mL/min/1.73sq m Chronic Kidney Disease: <60 mL/min/1.73sq m Kidney failure: <15 mL/min/1.73sq m eGFR calculated using average adult body mass. Additional eGFR calculator available at: http://www.[employer]/multiple_crcl_2012.htm GFR/1.73 sq M predicted among non-blacks MDRD (S/P/Bld) [Vol rate/Area] NOT REPORTED [place] Glucose [Mass/Vol] 145 mg/dL High 70 - 99 mg/dL [place] Potassium [Moles/Vol] 4.1 mmol/L 3.7 - 5.3 mmol/L [place] Protein [Mass/Vol] 6.7 g/dL 6.4 - 8.3 g/dL [place] Sodium [Moles/Vol] 138 mmol/L 135 - 144 mmol/L [place] Urea nitrogen [Mass/Vol] 23 mg/dL 8 - 23 mg/dL [place] Culture, Virus, Respiratoryo n 10-06-2019 Culture VIRAL RESPIRATORY CULTURES ARE NOT LONGER PERFORMED [place] Special Requests NOT REPORTED [place] Specimen Description .BRONCHIAL WASHINGS [place] Otheron 10-06-2019 Interpretation and review of laboratory results Abnormal [place] Immature granulocytes (Bld) [#/Vol] NOT REPORTED [place] T4, Freeon 10-06-2019 Interpretation and review of laboratory results Abnormal [place] Thyroxine, Free 2.03 ng/dL High 0.93 - 1.7 ng/dL [place] TSH with Reflexon 10-06-2019 TSH Qn 0.10 m[IU]/L [place] Basic Metabolic Panel w/ Ref alvin to MGon 10-05-2019 Anion gap [Moles/Vol] 9 mmol/L 9 - 17 mmol/L [place] Bun/Cre Ratio NOT REPORTED [place] Calcium [Mass/Vol] 8.8 mg/dL 8.6 - 10. 4 mg/dL [place] Chloride [Moles/Vol] 102 mmol/L 98 - 10 7 mmol/L [place] CO2 [Moles/Vol] 29 mmol/L 20 - 31 mmol/L [place] Creatinine [Mass/Vol] 0.72 mg/dL 0.5 - 0.9 mg/dL [place] GFR >60 >60 mL/min [place] GFR Non- >60 >60 mL/min [place] GFR/1.73 sq M predicted among non-blacks MDRD (S/P/Bld) [Vol rate/Area] NOT REPORTED [place] GFR/1.73 sq M predicted among non-blacks MDRD (S/P/Bld) [Vol rate/Area] [place] Comment on above: Average GFR for 60-6 9 years old: 85 mL/min/1.73sq m Chronic Kidney Disease: <60 mL/min/1.73sq m Kidney failure: <15 mL/min/1.73sq m eGFR calculated using average adult body mass. Additional eGFR calculator available at: http://www.[employer]/multiple_crcl_2012.htm Glucose [Mass/Vol] 97 mg/dL 70 - 99 mg/dL [place] Potassium [Moles/Vol] 4.3 mmol/L 3.7 - 5.3 mmol/L [place] Sodium [Moles/Vol] 140 mmol/L 135 - 144 mmol/L [place] Urea nitrogen [Mass/Vol] 18 mg/dL 8 - 23 mg/dL [place] CBC with DIFFon 10-05-2019 Basophils (Bld) [#/Vol] 0.10 10*3/uL [place] Basophils/100 WBC (Bld) 1 % 0 - 2 % [place] Differential Type NOT REPORTED [place] Eosinophils (Bld) [#/Vol] 0.50 10*3/uL [place] Eosinophils/100 WBC (Bld) 6 % High 0 - 4 % [place] Erythrocyte distribution width (RBC) [Ratio] 13.4 % 11.5 - 14.9 % [place] Hematocrit (Bld) [Volume fraction] 40.2 % 36 - 46 % [place] Hemoglobin (Bld) [Mass/Vol] 13.4 g/dL 12 - 16 g/dL [place] Interpretation and review of laboratory results Abnormal [place] Lymphocytes (Bld) [#/Vol] 2.50 10*3/uL [place] Lymphocytes/100 WBC (Bld) 30 % 24 - 44 % [place] MCH (RBC) [Entitic mass] 30.5 pg 26 - 34 pg [place] MCHC (RBC) [Mass/Vol] 33.3 g/dL 31 - 3 7 g/dL [place] MCV (RBC) [Entitic vol] 91.5 fL 80 - 100 fL [place] Monocytes (Bld) [#/Vol] 0.90 10*3/uL [place] Monocytes/100 WBC (Bld) 11 % High 1 - 7 % [place] Platelet mean volume (Bld) [Entitic vol] 6.9 fL 6 - 12 fL [place] Platelets (Bld) [#/Vol] 407 10*3/uL [place] Platelets (Bld) [#/Vol] NOT REPORTED [place] RBC (Bld) [#/Vol] 4.39 10*6/uL 4 - 5.2 m/uL [place] RBC morphology finding Nom (Bld) NOT REPORTED [place] Segmented neutrophils/100 WBC (Bld) 52 % 36 - 66 % [place] Segs Absolute 4.20 [facility] [place] WBC (Bld) [#/Vol] NOT REPORTED per 100 WBC [place] WBC (Bld) [#/Vol] 8.1 10*3/uL [place] WBC Morphology NOT REPORTED [facility] [place] Otheron 10-05-2019 Immature granulocytes (Bld) [#/Vol] NOT REPORTED 0 % [place] XR CHEST PORTABLEon 10-05-19 20 EXAMINATION: [...] could better evaluate lung parenchyma if indicated. [place] Jose Antonio, Mhpn Incoming Radiant Results From [facility] - 10/05/2019 6:01 PM EDT EXAMINATION: ONE [...] base. [facility] Patchy airspace dise ase representing atelectasis or infiltrate in the right lung base. Follow up to resolution is suggested. [facility] CHEST PORTABLEon 09-15-19 20 Perihilar and suprahilar airspace opacities could represent interstitial edema versus developing airspace disease. Please correlate exam findings. Follow-up to assure resolution following medical treatment course recommended [facility] EX[facility]: ONE XRA Y VIEW OF THE CHEST 09/15/2019 5:51 pm COMPARISON: 08/25/2019 HISTORY: ORDERING SYSTEM PROVIDED HISTORY: cough TECHNOLOGIST PROVIDED HISTORY: cough Reason for Exam: cough Acuity: Unknown Type of Exam: Unknown FINDINGS: The cardiomediastinal silhouette is normal in size and contour. Perihilar edema. Patchy suprahilar airspace opacities.. No pleural effusion or pneumothorax is present. [facility] [place] Jose Antonio, Mhpn Incoming Radiant Results From [facility] - 09/15/2019 6:05 PM EDT EXAMINATION: ONE [...] assure resolution following medical treatment course recommended [facility] [place] CBC auto differentialon Basophils (Bld) [#/Vol] 0.00 10*3/uL [place] Basophils/100 WBC (Bld) 0 % 0 - 2 % [place] Differential Type NOT REPORTED [place] Eosinophils (Bld) [#/Vol] 0.00 10*3/uL [place] Eosinophils/100 WBC (Bld) 0 % 0 - 4 % [place] Erythrocyte distribution width (RBC) [Ratio] 13.8 % 11.5 - 14.9 % [place] Hematocrit (Bld) [Volume fraction] 39.9 % 36 - 46 % [place] Hemoglobin (Bld) [Mass/Vol] 13.1 g/dL 12 - 16 g/dL [place] Interpretation and review of laboratory results Abnormal [place] Lymphocytes (Bld) [#/Vol] 1.00 10*3/uL [place] Lymphocytes/100 WBC (Bld) 8 % Low 24 - 44 % [place] MCH (RBC) [Entitic mass] 30.8 pg 26 - 34 pg [place] MCHC (RBC) [Mass/Vol] 32.9 g/dL 31 - 3 7 g/dL [place] MCV (RBC) [Entitic vol] 93.5 fL 80 - 100 fL [place] Monocytes (Bld) [#/Vol] 0.90 10*3/uL [place] Monocytes/100 WBC (Bld) 7 % 1 - 7 % [place] Platelet mean volume (Bld) [Entitic vol] 6.7 fL 6 - 12 fL [place] Platelets (Bld) [#/Vol] NOT REPORTED [place] Platelets (Bld) [#/Vol] 341 10*3/uL [place] RBC (Bld) [#/Vol] 4.27 10*6/uL 4 - 5.2 m/uL [place] RBC morphology finding Nom (Bld) NOT REPORTED [place] Segmented neutrophils/100 WBC (Bld) 85 % High 36 - 66 % [place] Segs Absolute 11.30 [place] WBC (Bld) [#/Vol] NOT REPORTED per 100 WBC [place] WBC (Bld) [#/Vol] 13.2 10*3/uL [place] WBC Morphology NOT REPORTED [place] Comprehensive Metabolic Pane l w/ Reflex to MGon 08-29-2019 Albumin [Mass/Vol] 3.3 g/dL Low 3.5 - 5.2 g/dL [place] Albumin/Globulin [Mass ratio] NOT REPORTED [place] ALP [Catalytic activity/Vol] 51 U/L 35 - 104 U/L [place] ALT [Catalytic activity/Vol] 28 U/L 5 - 33 U/L [place] Anion gap [Moles/Vol] 10 mmol/L 9 - 17 mmol/L [place] AST [Catalytic activity/Vol] 19 U/L <32 [place] Bilirubin Ql (U) 0.23 mg/dL Low 0.3 - 1.2 mg/dL [place] Bun/Cre Ratio NOT REPORTED [place] Calcium [Mass/Vol] 7.9 mg/dL Low 8.6 - 10. 4 mg/dL [place] Chloride [Moles/Vol] 104 mmol/L 98 - 10 7 mmol/L [place] CO2 [Moles/Vol] 28 mmol/L 20 - 31 mmol/L [place] Creatinine [Mass/Vol] 0.73 mg/dL 0.5 - 0.9 mg/dL [place] GFR >60 >60 mL/min [place] GFR Non- >60 >60 mL/min [place] GFR/1.73 sq M predicted among non-blacks MDRD (S/P/Bld) [Vol rate/Area] [place] Comment on above: Average GFR for 60-6 9 years old: 85 mL/min/1.73sq m Chronic Kidney Disease: <60 mL/min/1.73sq m Kidney failure: <15 mL/min/1.73sq m eGFR calculated using average adult body mass. Additional eGFR calculator available at: http://www.[employer]/multiple_crcl_2012.htm GFR/1.73 sq M predicted among non-blacks MDRD (S/P/Bld) [Vol rate/Area] NOT REPORTED [place] Glucose [Mass/Vol] 125 mg/dL High 70 - 99 mg/dL [place] Interpretation and review of laboratory results Abnormal [place] Potassium [Moles/Vol] 4.5 mmol/L 3.7 - 5.3 mmol/L [place] Protein [Mass/Vol] 5.9 g/dL Low 6.4 - 8.3 g/dL [place] Sodium [Moles/Vol] 142 mmol/L 135 - 144 mmol/L [place] Urea nitrogen [Mass/Vol] 28 mg/dL High 8 - 23 mg/dL [place] Otheron 08-29-2019 Immature granulocytes (Bld) [#/Vol] NOT REPORTED [place] CBC auto differentialon Absolute Bands # 0.14 [place] Bands 1 % 0 - 10 % [place] Basophils (Bld) [#/Vol] 0.00 10*3/uL [place] Basophils/100 WBC (Bld) 0 % 0 - 2 % [place] Differential Type NOT REPORTED [place] Eosinophils (Bld) [#/Vol] 0.00 10*3/uL [place] Eosinophils/100 WBC (Bld) 0 % 0 - 4 % [place] Erythrocyte distribution width (RBC) [Ratio] 13.8 % 11.5 - 14.9 % [place] Hematocrit (Bld) [Volume fraction] 40.1 % 36 - 46 % [place] Hemoglobin (Bld) [Mass/Vol] 13.2 g/dL 12 - 16 g/dL [place] Interpretation and review of laboratory results Abnormal [place] Lymphocytes (Bld) [#/Vol] 0.85 10*3/uL [place] Lymphocytes/100 WBC (Bld) 6 % Low 24 - 44 % [place] MCH (RBC) [Entitic mass] 30.8 pg 26 - 34 pg [place] MCHC (RBC) [Mass/Vol] 32.9 g/dL 31 - 3 7 g/dL [place] MCV (RBC) [Entitic vol] 93.5 fL 80 - 100 fL [place] Monocytes (Bld) [#/Vol] 0.99 10*3/uL [place] Monocytes/100 WBC (Bld) 7 % 1 - 7 % [place] Morphology Den (Bld) [Interp] Normal [place] Platelet mean volume (Bld) [Entitic vol] 6.7 fL 6 - 12 fL [place] Platelets (Bld) [#/Vol] 339 10*3/uL [place] Platelets (Bld) [#/Vol] NOT REPORTED [place] RBC (Bld) [#/Vol] 4.29 10*6/uL 4 - 5.2 m/uL [place] RBC morphology finding Nom (Bld) NOT REPORTED [place] Segmented neutrophils/100 WBC (Bld) 86 % High 36 - 66 % [place] Segs Absolute 12.22 High [place] WBC (Bld) [#/Vol] 14.2 10*3/uL [place] WBC (Bld) [#/Vol] NOT REPORTED per 100 WBC [place] WBC Morphology NOT REPORTED [place] Comprehensive Metabolic Pane l w/ Reflex to MGon 08-28-2019 Albumin [Mass/Vol] 3.5 g/dL 3.5 - 5.2 g/dL [place] Albumin/Globulin [Mass ratio] NOT REPORTED [place] ALP [Catalytic activity/Vol] 52 U/L 35 - 104 U/L [place] ALT [Catalytic activity/Vol] 17 U/L 5 - 33 U/L [place] Anion gap [Moles/Vol] 10 mmol/L 9 - 17 mmol/L [place] AST [Catalytic activity/Vol] 13 U/L <32 [place] Bilirubin Ql (U) 0.16 mg/dL Low 0.3 - 1.2 mg/dL [place] Bun/Cre Ratio NOT REPORTED [place] Calcium [Mass/Vol] 7.8 mg/dL Low 8.6 - 10. 4 mg/dL [place] Chloride [Moles/Vol] 104 mmol/L 98 - 10 7 mmol/L [place] CO2 [Moles/Vol] 29 mmol/L 20 - 31 mmol/L [place] Creatinine [Mass/Vol] 0.82 mg/dL 0.5 - 0.9 mg/dL [place] GFR >60 >60 mL/min [place] GFR Non- >60 >60 mL/min [place] GFR/1.73 sq M predicted among non-blacks MDRD (S/P/Bld) [Vol rate/Area] [place] Comment on above: Average GFR for 60-6 9 years old: 85 mL/min/1.73sq m Chronic Kidney Disease: <60 mL/min/1.73sq m Kidney failure: <15 mL/min/1.73sq m eGFR calculated using average adult body mass. Additional eGFR calculator available at: http://www.[employer]/multiple_crcl_2012.htm GFR/1.73 sq M predicted among non-blacks MDRD (S/P/Bld) [Vol rate/Area] NOT REPORTED [place] Glucose [Mass/Vol] 153 mg/dL High 70 - 99 mg/dL [place] Interpretation and review of laboratory results Abnormal [place] Potassium [Moles/Vol] 4.4 mmol/L 3.7 - 5.3 mmol/L [place] Protein [Mass/Vol] 6.0 g/dL Low 6.4 - 8.3 g/dL [place] Sodium [Moles/Vol] 143 mmol/L 135 - 144 mmol/L [place] Urea nitrogen [Mass/Vol] 21 mg/dL 8 - 23 mg/dL [place] Otheron 08-28-2019 Immature granulocytes (Bld) [#/Vol] NOT REPORTED 0 % [place] Basic Metabolic Panel w/ Ref alvin to MGon 08-26-2019 Anion gap [Moles/Vol] 10 mmol/L 9 - 17 mmol/L [place] Bun/Cre Ratio NOT REPORTED [facility] [place] Calcium [Mass/Vol] 8.1 mg/dL Low 8.6 - 10. 4 mg/dL [place] Chloride [Moles/Vol] 104 mmol/L 98 - 10 7 mmol/L [place] CO2 [Moles/Vol] 26 mmol/L 20 - 31 mmol/L [place] Creatinine [Mass/Vol] 0.78 mg/dL 0.5 - 0.9 mg/dL [place] GFR >60 >60 mL/min [place] GFR Non- >60 >60 mL/min [place] GFR/1.73 sq M predicted among non-blacks MDRD (S/P/Bld) [Vol rate/Area] [place] Comment on above: Average GFR for 60-6 9 years old: 85 mL/min/1.73sq m Chronic Kidney Disease: <60 mL/min/1.73sq m Kidney failure: <15 mL/min/1.73sq m eGFR calculated using average adult body mass. Additional eGFR calculator available at: http://www.[employer]/multiple_crcl_2012.htm GFR/1.73 sq M predicted among non-blacks MDRD (S/P/Bld) [Vol rate/Area] NOT REPORTED [place] Glucose [Mass/Vol] 179 mg/dL High 70 - 99 mg/dL [place] Interpretation and review of laboratory results Abnormal [place] Potassium [Moles/Vol] 5.0 mmol/L 3.7 - 5.3 mmol/L [place] Sodium [Moles/Vol] 140 mmol/L 135 - 144 mmol/L [place] Urea nitrogen [Mass/Vol] 20 mg/dL 8 - 23 mg/dL [place] CBCon 08-26-2019 Erythrocyte distribution width (RBC) [Ratio] 13.8 % 11.5 - 14.9 % [place] Hematocrit (Bld) [Volume fraction] 41.6 % 36 - 46 % [place] Hemoglobin (Bld) [Mass/Vol] 14.1 g/dL 12 - 16 g/dL [place] MCH (RBC) [Entitic mass] 31.3 pg 26 - 34 pg [place] MCHC (RBC) [Mass/Vol] 33.9 g/dL 31 - 3 7 g/dL [place] MCV (RBC) [Entitic vol] 92.3 fL 80 - 100 fL [place] Platelet mean volume (Bld) [Entitic vol] 6.9 fL 6 - 12 fL [place] Platelets (Bld) [#/Vol] 316 10*3/uL [place] RBC (Bld) [#/Vol] 4.51 10*6/uL 4 - 5.2 m/uL [place] WBC (Bld) [#/Vol] 6.9 10*3/uL [place] WBC (Bld) [#/Vol] NOT REPORTED per 100 WBC [place] EKG 12 [place] 08-26-2019 Atrial Rate 133 BPM [place] P [place] 44 degrees [place] P-R Interval 128 ms [place] Q-T Interval 282 ms [place] QRS Duration 84 ms [place] QTc Calculation ([place]az[place]) 419 ms [place] R [place] 51 degrees [place] T [place] 16 degrees [place] Ventricular Rate 133 BPM [place] Sinus tachycardia Otherwise normal ECG No previous ECGs available [place] Jose [place], [facility] Incoming E kg Results From [facility] - 08/26/2019 9:03 AM EST Sinus tachycardia Otherwise normal ECG No previous ECGs available [place] APTTon 08-25-2019 aPTT Coag (Bld) [Time] 30.1 s [place] Comment on above: IV Heparin Therapy Range: 62.0-94.0 Amylaseon 08-25-2019 Amylase [Catalytic activity/Vol] 37 U/L 28 - 100 U/L [place] Basic Metabolic Panel w/ Ref alvin to MGon 08-25-2019 Anion gap [Moles/Vol] 11 mmol/L 9 - 17 mmol/L [place] Bun/Cre Ratio NOT REPORTED [place] Calcium [Mass/Vol] 8.6 mg/dL 8.6 - 10. 4 mg/dL [place] Chloride [Moles/Vol] 97 mmol/L Low 98 - 10 7 mmol/L [place] CO2 [Moles/Vol] 26 mmol/L 20 - 31 mmol/L [place] Creatinine [Mass/Vol] 0.81 mg/dL 0.5 - 0.9 mg/dL [place] GFR >60 >60 mL/min [place] GFR Non- >60 >60 mL/min [place] GFR/1.73 sq M predicted among non-blacks MDRD (S/P/Bld) [Vol rate/Area] NOT REPORTED [place] GFR/1.73 sq M predicted among non-blacks MDRD (S/P/Bld) [Vol rate/Area] [place] Comment on above: Average GFR for 60-6 9 years old: 85 mL/min/1.73sq m Chronic Kidney Disease: <60 mL/min/1.73sq m Kidney failure: <15 mL/min/1.73sq m eGFR calculated using average adult body mass. Additional eGFR calculator available at: http://www.Snapette.[employer] Products/multiple_crcl_2012.htm Glucose [Mass/Vol] 121 mg/dL High 70 - 99 mg/dL [place] Potassium [Moles/Vol] 4.2 mmol/L 3.7 - 5.3 mmol/L [place] Sodium [Moles/Vol] 134 mmol/L Low 135 - 144 mmol/L [place] Urea nitrogen [Mass/Vol] 17 mg/dL 8 - 23 mg/dL [place] Brain Natriuretic Peptideon 08-25-2019 Natriuretic peptide B (Bld) [Mass/Vol] Pro-BNP Reference Range: [place] Comment on above: Rule Out: <300 [place] Zone: Age <50 300-450 Age 50-75 300-900 Age >75 300-1800 Usually represents mild to moderate HF but other cardiopulmonary causes cannot be ruled out. Rule In: Age <50 >450 Age 50-75 >900 Age >75 >1800 Natriuretic peptide B (Bld) [Mass/Vol] 42 pg/mL <300 [place] Comment on above: Pro-BNP results ridge ot be compared to BNP results. CBC Auto Differentialon Basophils (Bld) [#/Vol] 0.10 10*3/uL [place] Basophils/100 WBC (Bld) 1 % 0 - 2 % [place] Differential Type NOT REPORTED [place] Eosinophils (Bld) [#/Vol] 0.20 10*3/uL [place] Eosinophils/100 WBC (Bld) 2 % 0 - 4 % [place] Erythrocyte distribution width (RBC) [Ratio] 13.8 % 11.5 - 14.9 % [place] Hematocrit (Bld) [Volume fraction] 47.4 % High 36 - 46 % [place] Hemoglobin (Bld) [Mass/Vol] 15.7 g/dL 12 - 16 g/dL [place] Interpretation and review of laboratory results Abnormal [place] Lymphocytes (Bld) [#/Vol] 0.80 10*3/uL [place] Lymphocytes/100 WBC (Bld) 7 % Low 24 - 44 % [place] MCH (RBC) [Entitic mass] 30.6 pg 26 - 34 pg [place] MCHC (RBC) [Mass/Vol] 33.2 g/dL 31 - 3 7 g/dL [place] MCV (RBC) [Entitic vol] 92.0 fL 80 - 100 fL [place] Monocytes (Bld) [#/Vol] 0.50 10*3/uL [place] Monocytes/100 WBC (Bld) 4 % 1 - 7 % [place] Platelet mean volume (Bld) [Entitic vol] 7.2 fL 6 - 12 fL [place] Platelets (Bld) [#/Vol] NOT REPORTED [place] Platelets (Bld) [#/Vol] 363 10*3/uL [place] RBC (Bld) [#/Vol] 5.15 10*6/uL 4 - 5.2 m/uL [place] RBC morphology finding Nom (Bld) NOT REPORTED [place] Segmented neutrophils/100 WBC (Bld) 86 % High 36 - 66 % [place] Segs Absolute 10.40 High [place] WBC (Bld) [#/Vol] 12.0 10*3/uL [place] WBC (Bld) [#/Vol] NOT REPORTED per 100 WBC [place] WBC Morphology NOT REPORTED [place] Hepatic Function Panelon Albumin [Mass/Vol] 4 g/dL 3.5 - 5.2 g/dL [place] Albumin/Globulin [Mass ratio] NOT REPORTED [place] ALP [Catalytic activity/Vol] 67 U/L 35 - 104 U/L [place] ALT [Catalytic activity/Vol] 19 U/L 5 - 33 U/L [place] AST [Catalytic activity/Vol] 12 U/L <32 [place] Bilirubin Ql (U) 0.53 mg/dL 0.3 - 1.2 mg/dL [place] Bilirubin, Indirect 0.39 mg/dL 0 - 1 mg/dL [place] Bilirubin.direct [Mass/Vol] 0.14 mg/dL <0.31 [place] Globulin (S) [Mass/Vol] NOT REPORTED 1.5 - 3.8 g/dL [place] Protein [Mass/Vol] 7.4 g/dL 6.4 - 8.3 g/dL [place] Lipaseon 08-25-2019 Lipase [Catalytic activity/Vol] 12 U/L Low 13 - 60 U/L [place] Otheron 08-25-2019 Interpretation and review of laboratory results Abnormal [place] Immature granulocytes (Bld) [#/Vol] NOT REPORTED 0 % [place] Protime-INRon 08-25-2019 INR Coag (PPP) [Relative time] 1.1 {INR} [place] Comment on above: Non-therapeutic Range: INR = 0.9-1.2 Therapeutic Range: Moderate Anticoagulant Intensity: INR = 2.0-3.0 High Anticoagulant Intensity: INR = 2.5-3.5 PT Coag (PPP) [Time] 13.6 s [place] Rapid influenza A/B antigens on 08-25-2019 Direct Exam Negative [place] Direct Exam Positive Abnormal [place] Interpretation and review of laboratory results Abnormal [place] Special Requests NOT REPORTED [place] Specimen Description .NASOPHARYNGEAL SWAB [place] Troponinon 08-25-2019 Troponin I.cardiac [Mass/Vol] NOT REPORTED [place] Troponin T.cardiac [Mass/Vol] NOT REPORTED <0.03 ng/mL [place] Troponin, High Sensitivity 9 ng/L 0 - 14 ng/L [place] Comment on above: High Sensitivity Troponin [...] diaphragm. No evidence of acute osseous abnormality. [place] Jose Antonio, Mhpn Incoming Radiant Results From [facility] - 08/25/2019 4:43 PM EST EXAMINATION: ONE [...] vascular congestion. Interstitial edema appears slightly improved. [place] Unchanged mild cardiomegaly and vascular congestion. Interstitial edema appears slightly improved. [place] Basic Metabolic Profon 08-10 Anion gap [Moles/Vol] 11 mmol/L 9 - 17 mmol/L [place] Bun/Cre Ratio NOT REPORTED [place] Calcium [Mass/Vol] 7.7 mg/dL Low 8.6 - 10. 4 mg/dL [place] Chloride [Moles/Vol] 101 mmol/L 98 - 10 7 mmol/L [place] CO2 [Moles/Vol] 28 mmol/L 20 - 31 mmol/L [place] Creatinine [Mass/Vol] 0.75 mg/dL 0.5 - 0.9 mg/dL [place] GFR >60 >60 mL/min [place] GFR Non- >60 >60 mL/min [place] GFR/1.73 sq M predicted among non-blacks MDRD (S/P/Bld) [Vol rate/Area] [place] Comment on above: Average GFR for 60-6 9 years old: 85 mL/min/1.73sq m Chronic Kidney Disease: <60 mL/min/1.73sq m Kidney failure: <15 mL/min/1.73sq m eGFR calculated using average adult body mass. Additional eGFR calculator available at: http://www.SnapetteQuackenworth/multiple_crcl_2012.htm GFR/1.73 sq M predicted among non-blacks MDRD (S/P/Bld) [Vol rate/Area] NOT REPORTED [place] Glucose [Mass/Vol] 162 mg/dL High 70 - 99 mg/dL [place] Interpretation and review of laboratory results Abnormal [place] Potassium [Moles/Vol] 4.1 mmol/L 3.7 - 5.3 mmol/L [place] Sodium [Moles/Vol] 140 mmol/L 135 - 144 mmol/L [place] Urea nitrogen [Mass/Vol] 29 mg/dL High 8 - 23 mg/dL [place] CBCon 08-10-2019 Erythrocyte distribution width (RBC) [Ratio] 13.4 % 11.5 - 14.9 % [place] Hematocrit (Bld) [Volume fraction] 41.6 % 36 - 46 % [place] Hemoglobin (Bld) [Mass/Vol] 13.9 g/dL 12 - 16 g/dL [place] Interpretation and review of laboratory results Abnormal [place] MCH (RBC) [Entitic mass] 31.1 pg 26 - 34 pg [place] MCHC (RBC) [Mass/Vol] 33.4 g/dL 31 - 3 7 g/dL [place] MCV (RBC) [Entitic vol] 93.2 fL 80 - 100 fL [place] Platelet mean volume (Bld) [Entitic vol] 7.6 fL 6 - 12 fL [place] Platelets (Bld) [#/Vol] 326 10*3/uL [place] RBC (Bld) [#/Vol] 4.46 10*6/uL 4 - 5.2 m/uL [place] WBC (Bld) [#/Vol] NOT REPORTED per 100 WBC [place] WBC (Bld) [#/Vol] 13.2 10*3/uL [place] XR CHEST STANDARD (2 VW)on 0 [...] the costophrenic angles on the lateral view. [place] Jose Antonio, Mhpn Incoming Radiant Results From [facility] - 08/10/2019 9:50 AM EST EXAMINATION: TWO [...] radiographic follow-up is recommended to ensure clearance. [place] Cardiomegaly with mi ld vascular congestion noted concerning for mild interstitial pulmonary edema. This is new from the previous exam and continued radiographic follow-up is recommended to ensure clearance. [place] Basic Metabolic Profon 08-09 Anion gap [Moles/Vol] 11 mmol/L 9 - 17 mmol/L [place] Bun/Cre Ratio NOT REPORTED [facility] [place] Calcium [Mass/Vol] 7.6 mg/dL Low 8.6 - 10. 4 mg/dL [place] Chloride [Moles/Vol] 100 mmol/L 98 - 10 7 mmol/L [place] CO2 [Moles/Vol] 28 mmol/L 20 - 31 mmol/L [place] Creatinine [Mass/Vol] 0.86 mg/dL 0.5 - 0.9 mg/dL [place] GFR >60 >60 mL/min [place] GFR Non- >60 >60 mL/min [place] GFR/1.73 sq M predicted among non-blacks MDRD (S/P/Bld) [Vol rate/Area] NOT REPORTED [place] GFR/1.73 sq M predicted among non-blacks MDRD (S/P/Bld) [Vol rate/Area] [place] Comment on above: Average GFR for 60-6 9 years old: 85 mL/min/1.73sq m Chronic Kidney Disease: <60 mL/min/1.73sq m Kidney failure: <15 mL/min/1.73sq m eGFR calculated using average adult body mass. Additional eGFR calculator available at: http://www.[employer]/multiple_crcl_2012.htm Glucose [Mass/Vol] 140 mg/dL High 70 - 99 mg/dL [place] Interpretation and review of laboratory results Abnormal [place] Potassium [Moles/Vol] 4.5 mmol/L 3.7 - 5.3 mmol/L [place] Sodium [Moles/Vol] 139 mmol/L 135 - 144 mmol/L [place] Urea nitrogen [Mass/Vol] 29 mg/dL High 8 - 23 mg/dL [place] CBCon 08-09-2019 Erythrocyte distribution width (RBC) [Ratio] 13.6 % 11.5 - 14.9 % [place] Hematocrit (Bld) [Volume fraction] 40.1 % 36 - 46 % [place] Hemoglobin (Bld) [Mass/Vol] 13.5 g/dL 12 - 16 g/dL [place] Interpretation and review of laboratory results Abnormal [place] MCH (RBC) [Entitic mass] 31.2 pg 26 - 34 pg [place] MCHC (RBC) [Mass/Vol] 33.7 g/dL 31 - 3 7 g/dL [place] MCV (RBC) [Entitic vol] 92.6 fL 80 - 100 fL [place] Platelet mean volume (Bld) [Entitic vol] 7.3 fL 6 - 12 fL [place] Platelets (Bld) [#/Vol] 334 10*3/uL [place] RBC (Bld) [#/Vol] 4.34 10*6/uL 4 - 5.2 m/uL [place] WBC (Bld) [#/Vol] 15.9 10*3/uL [place] WBC (Bld) [#/Vol] NOT REPORTED per 100 WBC [place] Fungal stainon 08-09-2019 Direct Exam NO FUNGAL ELEMENTS SEEN [place] Special Requests NOT REPORTED [place] Specimen Description .BRONCHIAL WASHINGS [place] Otheron 08-09-2019 Direct Exam Positive Abnormal [place] Respiratory Cultureon 2019 Culture NORMAL RESPIRATORY CHERYL HEAVY GROWTH [place] Direct Exam FEW NEUTROPHILS Abnormal [place] Interpretation and review of laboratory results Abnormal [place] Special Requests NOT REPORTED [place] Specimen Description .BRONCHIAL WASHINGS [place] Surgical Pathologyon 020 Surgical Pathology Report [id number] [place] [address] SURGICAL PATHOLOGY REPORT Patient Name: CAMERON US MR#: [id number] Specimen #[id number] Final Diagnosis Parts A & B. Lungs, [...] fluid. Approximately 3 ml are sent to ID for ThinPrep. Two smears and two cytospin preparations are made. Specimen B : The entire specimen is centrifuged for cell block. The volume of sediment is 0.5 cc. It is submitted for cell block preparation. Microscopic Description Five cytology and two H&E cell block slides reviewed. Microscopic examination performed and supports the diagnostic impression. [place] Basic Metabolic Profon 08-08 Anion gap [Moles/Vol] 8 mmol/L Low 9 - 17 mmol/L [place] Bun/Cre Ratio NOT REPORTED [place] Calcium [Mass/Vol] 8.0 mg/dL Low 8.6 - 10. 4 mg/dL [place] Chloride [Moles/Vol] 106 mmol/L 98 - 10 7 mmol/L [place] CO2 [Moles/Vol] 26 mmol/L 20 - 31 mmol/L [place] Creatinine [Mass/Vol] 0.75 mg/dL 0.5 - 0.9 mg/dL [place] GFR >60 >60 mL/min [place] GFR Non- >60 >60 mL/min [place] GFR/1.73 sq M predicted among non-blacks MDRD (S/P/Bld) [Vol rate/Area] NOT REPORTED [place] GFR/1.73 sq M predicted among non-blacks MDRD (S/P/Bld) [Vol rate/Area] [place] Comment on above: Average GFR for 60-6 9 years old: 85 mL/min/1.73sq m Chronic Kidney Disease: <60 mL/min/1.73sq m Kidney failure: <15 mL/min/1.73sq m eGFR calculated using average adult body mass. Additional eGFR calculator available at: http://www.Snapette.Own Products/multiple_crcl_2012.htm Glucose [Mass/Vol] 154 mg/dL High 70 - 99 mg/dL [place] Interpretation and review of laboratory results Abnormal [place] Potassium [Moles/Vol] 5.1 mmol/L 3.7 - 5.3 mmol/L [place] Sodium [Moles/Vol] 140 mmol/L 135 - 144 mmol/L [place] Urea nitrogen [Mass/Vol] 32 mg/dL High 8 - 23 mg/dL [place] Body fluid cell counton 07-23 Appearance, Fluid TURBID [facility] [place] Color, Fluid PALE YELLOW [place] RBC, Fluid 294 /mm3 [place] Specimen type Nom (Spec) .BRONCHIAL WASHINGS [place] WBC, Fluid 113 /mm3 [place] CBCon 08-08-2019 Erythrocyte distribution width (RBC) [Ratio] 13.5 % 11.5 - 14.9 % [place] Hematocrit (Bld) [Volume fraction] 42.1 % 36 - 46 % [place] Hemoglobin (Bld) [Mass/Vol] 14.0 g/dL 12 - 16 g/dL [place] Interpretation and review of laboratory results Abnormal [place] MCH (RBC) [Entitic mass] 30.7 pg 26 - 34 pg [place] MCHC (RBC) [Mass/Vol] 33.2 g/dL 31 - 3 7 g/dL [place] MCV (RBC) [Entitic vol] 92.4 fL 80 - 100 fL [place] Platelet mean volume (Bld) [Entitic vol] 7.2 fL 6 - 12 fL [place] Platelets (Bld) [#/Vol] 355 10*3/uL [place] RBC (Bld) [#/Vol] 4.55 10*6/uL 4 - 5.2 m/uL [place] WBC (Bld) [#/Vol] 18.5 10*3/uL [place] WBC (Bld) [#/Vol] NOT REPORTED per 100 WBC [place] Differential, Body Fluidon 0 08-08-2019 Basos, Fluid 0 % [place] Eos, Fluid 7 % High 0 [place] Fluid Diff Comment TO BE REVIEWED BY PATHOLOGIST [place] Comment on above: Reviewed by patholog ist: Justin J. Fanelly, D.O. SLIDE REVIEWED. MACROPHAGES, NEUTROPHILS WITH RARE LYMPHOCYTES AND EOSINOPHIILS NOTED. Interpretation and review of laboratory results Abnormal [place] Lymphocytes, Body Fluid 7 % High 0 [place] Monocyte Count, Fluid 40 % High 0 [place], [place] Neutrophil Count, Fluid 46 % High 0 [place] Other Cells, Fluid 0 % [place] Basic Metabolic Profon 08-07 Anion gap [Moles/Vol] 11 mmol/L 9 - 17 mmol/L [place] Bun/Cre Ratio NOT REPORTED [place] Calcium [Mass/Vol] 8.1 mg/dL Low 8.6 - 10. 4 mg/dL [place] Chloride [Moles/Vol] 105 mmol/L 98 - 10 7 mmol/L [place] CO2 [Moles/Vol] 24 mmol/L 20 - 31 mmol/L [place] Creatinine [Mass/Vol] 0.93 mg/dL High 0.5 - 0.9 mg/dL [place] GFR >60 >60 mL/min [place] GFR Non- >60 >60 mL/min [place] GFR/1.73 sq M predicted among non-blacks MDRD (S/P/Bld) [Vol rate/Area] NOT REPORTED [place] GFR/1.73 sq M predicted among non-blacks MDRD (S/P/Bld) [Vol rate/Area] [place] Comment on above: Average GFR for 60-6 9 years old: 85 mL/min/1.73sq m Chronic Kidney Disease: <60 mL/min/1.73sq m Kidney failure: <15 mL/min/1.73sq m eGFR calculated using average adult body mass. Additional eGFR calculator available at: http://www.Snapette.Own Products/multiple_crcl_2012.htm Glucose [Mass/Vol] 172 mg/dL High 70 - 99 mg/dL [place] Interpretation and review of laboratory results Abnormal [place] Potassium [Moles/Vol] 5.1 mmol/L 3.7 - 5.3 mmol/L [place] Sodium [Moles/Vol] 140 mmol/L 135 - 144 mmol/L [place] Urea nitrogen [Mass/Vol] 26 mg/dL High 8 - 23 mg/dL [place] CBCon 08-07-2019 Erythrocyte distribution width (RBC) [Ratio] 13.8 % 11.5 - 14.9 % [place] Hematocrit (Bld) [Volume fraction] 42.8 % 36 - 46 % [place] Hemoglobin (Bld) [Mass/Vol] 14.1 g/dL 12 - 16 g/dL [place] Interpretation and review of laboratory results Abnormal [place] MCH (RBC) [Entitic mass] 30.8 pg 26 - 34 pg [place] MCHC (RBC) [Mass/Vol] 33.0 g/dL 31 - 3 7 g/dL [place] MCV (RBC) [Entitic vol] 93.1 fL 80 - 100 fL [place] Platelet mean volume (Bld) [Entitic vol] 7.5 fL 6 - 12 fL [place] Platelets (Bld) [#/Vol] 367 10*3/uL [place] RBC (Bld) [#/Vol] 4.59 10*6/uL 4 - 5.2 m/uL [place] WBC (Bld) [#/Vol] 20.0 10*3/uL [place] WBC (Bld) [#/Vol] NOT REPORTED per 100 WBC [place] Basic Metabolic Profon 08-06 Anion gap [Moles/Vol] 10 mmol/L 9 - 17 mmol/L [place] Bun/Cre Ratio NOT REPORTED [facility] [place] Calcium [Mass/Vol] 8.2 mg/dL Low 8.6 - 10. 4 mg/dL [place] Chloride [Moles/Vol] 102 mmol/L 98 - 10 7 mmol/L [place] CO2 [Moles/Vol] 25 mmol/L 20 - 31 mmol/L [place] Creatinine [Mass/Vol] 0.75 mg/dL 0.5 - 0.9 mg/dL [place] GFR >60 >60 mL/min [place] GFR Non- >60 >60 mL/min [place] GFR/1.73 sq M predicted among non-blacks MDRD (S/P/Bld) [Vol rate/Area] [place] Comment on above: Average GFR for 60-6 9 years old: 85 mL/min/1.73sq m Chronic Kidney Disease: <60 mL/min/1.73sq m Kidney failure: <15 mL/min/1.73sq m eGFR calculated using average adult body mass. Additional eGFR calculator available at: http://www.[employer]/multiple_crcl_2012.htm GFR/1.73 sq M predicted among non-blacks MDRD (S/P/Bld) [Vol rate/Area] NOT REPORTED [place] Glucose [Mass/Vol] 166 mg/dL High 70 - 99 mg/dL [place] Interpretation and review of laboratory results Abnormal [place] Potassium [Moles/Vol] 4.1 mmol/L 3.7 - 5.3 mmol/L [place] Sodium [Moles/Vol] 137 mmol/L 135 - 144 mmol/L [place] Urea nitrogen [Mass/Vol] 21 mg/dL 8 - 23 mg/dL [place] CBCon 08-06-2019 Erythrocyte distribution width (RBC) [Ratio] 13.5 % 11.5 - 14.9 % [place] Hematocrit (Bld) [Volume fraction] 43.2 % 36 - 46 % [place] Hemoglobin (Bld) [Mass/Vol] 14.5 g/dL 12 - 16 g/dL [place] MCH (RBC) [Entitic mass] 31.1 pg 26 - 34 pg [place] MCHC (RBC) [Mass/Vol] 33.5 g/dL 31 - 3 7 g/dL [place] MCV (RBC) [Entitic vol] 92.7 fL 80 - 100 fL [place] Platelet mean volume (Bld) [Entitic vol] 7.2 fL 6 - 12 fL [place] Platelets (Bld) [#/Vol] 366 10*3/uL [place] RBC (Bld) [#/Vol] 4.66 10*6/uL 4 - 5.2 m/uL [place] WBC (Bld) [#/Vol] NOT REPORTED per 100 WBC [place] WBC (Bld) [#/Vol] 7.9 10*3/uL [place] Basic Metabolic Panelon 07-23 Anion gap [Moles/Vol] 14 mmol/L 9 - 17 mmol/L [place] Bun/Cre Ratio NOT REPORTED [place] Calcium [Mass/Vol] 8.6 mg/dL 8.6 - 10. 4 mg/dL [place] Chloride [Moles/Vol] 102 mmol/L 98 - 10 7 mmol/L [place] CO2 [Moles/Vol] 25 mmol/L 20 - 31 mmol/L [place] Creatinine [Mass/Vol] 0.85 mg/dL 0.5 - 0.9 mg/dL [place] GFR >60 >60 mL/min [place] GFR Non- >60 >60 mL/min [place] GFR/1.73 sq M predicted among non-blacks MDRD (S/P/Bld) [Vol rate/Area] [place] Comment on above: Average GFR for 60-6 9 years old: 85 mL/min/1.73sq m Chronic Kidney Disease: <60 mL/min/1.73sq m Kidney failure: <15 mL/min/1.73sq m eGFR calculated using average adult body mass. Additional eGFR calculator available at: http://www.[employer]/multiple_crcl_2012.htm GFR/1.73 sq M predicted among non-blacks MDRD (S/P/Bld) [Vol rate/Area] NOT REPORTED [place] Glucose [Mass/Vol] 97 mg/dL 70 - 99 mg/dL [place] Potassium [Moles/Vol] 4.5 mmol/L 3.7 - 5.3 mmol/L [place] Sodium [Moles/Vol] 141 mmol/L 135 - 144 mmol/L [place] Urea nitrogen [Mass/Vol] 19 mg/dL 8 - 23 mg/dL [place] CBC Auto Differentialon 07-23 Basophils (Bld) [#/Vol] 0.10 10*3/uL [place] Basophils/100 WBC (Bld) 1 % 0 - 2 % [place] Differential Type NOT REPORTED [place] Eosinophils (Bld) [#/Vol] 0.80 10*3/uL High [place] Eosinophils/100 WBC (Bld) 9 % High 0 - 4 % [place] Erythrocyte distribution width (RBC) [Ratio] 13.2 % 11.5 - 14.9 % [place] Hematocrit (Bld) [Volume fraction] 46.8 % High 36 - 46 % [place] Hemoglobin (Bld) [Mass/Vol] 15.6 g/dL 12 - 16 g/dL [place] Interpretation and review of laboratory results Abnormal [place] Lymphocytes (Bld) [#/Vol] 2.70 10*3/uL [place] Lymphocytes/100 WBC (Bld) 30 % 24 - 44 % [place] MCH (RBC) [Entitic mass] 31.1 pg 26 - 34 pg [place] MCHC (RBC) [Mass/Vol] 33.4 g/dL 31 - 3 7 g/dL [place] MCV (RBC) [Entitic vol] 93.1 fL 80 - 100 fL [place] Monocytes (Bld) [#/Vol] 0.70 10*3/uL [place] Monocytes/100 WBC (Bld) 8 % High 1 - 7 % [place] Platelet mean volume (Bld) [Entitic vol] 7.0 fL 6 - 12 fL [place] Platelets (Bld) [#/Vol] NOT REPORTED [place] Platelets (Bld) [#/Vol] 396 10*3/uL [place] RBC (Bld) [#/Vol] 5.02 10*6/uL 4 - 5.2 m/uL [place] RBC morphology finding Nom (Bld) NOT REPORTED [place] Segmented neutrophils/100 WBC (Bld) 52 % 36 - 66 % [place] Segs Absolute 4.80 [place], [place] WBC (Bld) [#/Vol] NOT REPORTED per 100 WBC [place] WBC (Bld) [#/Vol] 9.2 10*3/uL [place] WBC Morphology NOT REPORTED [place] D-Dimer, Quantitativeon 07-23 D-Dimer, Quant <0.27 [place], [place] Comment on above: When combined with [...] 08-05-2019 Immature granulocytes (Bld) [#/Vol] NOT [facility]ED [facility] Procalcitonin 0.06 ng/mL <0.09 [facility] [place] Comment on above: Suspected Sepsis: 0.09-0.49 [...] entered into the Change in Procalcitonin Calculator (www.agmofa-szq-tpcvdizbzr.Own Products) to determine the patient's Mortality Risk Prognosis XR CHEST PORTABLEon 08-05-19 20 Jose Antonio, Mhpn Incoming Radiant Results From [facility] - 08/05/2019 3:07 PM EST EXAMINATION: ONE [...] identified. IMPRESSION: No acute airspace disease identified. [facility] ONE XRA Y VIEW OF THE CHEST 08/05/2019 2:02 pm COMPARISON: None. HISTORY: ORDERING SYSTEM PROVIDED HISTORY: Chest Pain TECHNOLOGIST PROVIDED HISTORY: Chest Pain Reason for Exam: CHEST PAIN Acuity: Unknown Type of Exam: Unknown FINDINGS: Mild cardiac silhouette enlargement. Generalized interstitial prominence without consolidation, pneumothorax or evidence for edema. No effusion. No acute osseous abnormality identified. [place] No acute airspace disease identified. [place] Glucose, Fastingon 9 Glucose [Mass/Vol] 93 mg/dL Normal 70-99 [facility] Comment on above: Performed By: #### G JOSE, LIPRF, TSH #### [facility] [employer] [address] [place] [address] [id number] Chief Recordist: Beau Troncoso MD Glucose [Mass/Vol] 93 mg/dL 70 - 99 mg/dL [place] Lipid Prof, Fastingon 2018 Cholesterol [Mass/Vol] 275 mg/dL High <200 [facility] Comment on above: Result Comment: Cholesterol Guidelines: <200 Desirable 200-240 Borderline >240 Undesirable Performed By: #### G JOSE LIPRF, TSH #### [facility] [employer] [address] [place] [address] [id number] Chief Recordist: Beau Troncoso MD Cholesterol in HDL [Mass/Vol] 48 mg/dL Normal >40 [facility] Comment on above: Result Comment: HDL Guidelines: <40 Undesirable 40-59 Borderline >59 Desirable Performed By: #### MELBA CLAYRF, TSH #### [facility] [employer] [address] [place] [address] [id number] Chief Recordist: Beau Troncoso MD Cholesterol in LDL [Mass/Vol] 196 mg/dL High 0-130 [facility] Comment on above: Result Comment: LDL Guidelines: <100 Desirable 100-129 Near to/above Desirable 130-159 Borderline >159 Undesirable Direct (measured) LDL and calculated LDL are not interchangeable tests. Performed By: #### G JOSE, LIPRF, TSH #### [facility] [employer] [address] [place] [address] [id number] Chief Recordist: Beau Troncoso MD Cholesterol.total/Chol esterol in HDL [Mass ratio] 5.7 {ratio} High <5 [facility] Comment on above: Performed By: #### G JOSE, LIPRF, TSH #### [facility] [address] [place], [place] [id number] Chief Recordist: Beau Troncoso MD Triglyceride,Fasting 153 mg/dL High <150 [facility] Comment on above: Result Comment: Triglyceride Guidelines: <150 Desirable 150-199 Borderline 200-499 High >499 Very high Based on AHA Guidelines for fasting triglyceride, March 2012. Performed By: #### G JOSE LIPRF, TSH #### [facility] [employer] [address] [place], [place] [id number] Chief Recordist: Beau Troncoso MD Cholesterol in VLDL [Mass/Vol] NOT REPORTED Normal 1-30 [facility] Comment on above: Performed By: #### G CHUCK GARCIA, TSH #### [facility] [employer] [facility] [place], [place] [id number] Chief Recordist: Beau Troncoso MD Lipid, Fastingon 05-11-2019 Cholesterol [Mass/Vol] 275 mg/dL High <200 [place], [place] Comment on above: Cholesterol Guidelines: <200 Desirable 200-240 Borderline >240 Undesirable Cholesterol in HDL [Mass/Vol] 48 mg/dL >40 [place], [place] Comment on above: HDL Guidelines: <40 Undesirable 40-59 Borderline >59 Desirable Cholesterol in LDL [Mass/Vol] 196 mg/dL High 0 - 130 mg/dL [place], [place] Comment on above: LDL Guidelines: <100 Desirable 100-129 Near to/above Desirable 130-159 Borderline >159 Undesirable Direct (measured) LDL and calculated LDL are not interchangeable tests. Cholesterol in VLDL [Mass/Vol] NOT REPORTED High 1 - 30 mg/dL [place] Cholesterol.total/Chol esterol in HDL [Mass ratio] 5.7 {ratio} High <5 [place] Interpretation and review of laboratory results Abnormal [place] Triglyceride, Fasting 153 mg/dL High <150 [place], [place] Comment on above: Triglyceride Guidelines: <150 Desirable 150-199 Borderline 200-499 High >499 Very high Based on AHA Guidelines for fasting triglyceride, March 2012. TSHon 05-11-2019 Interpretation and review of laboratory results Abnormal [facility] [place] TSH Qn 25.72 m[IU]/L High [facility]- [place], [place] Thyroid Stim. Horm.on 2018 TSH Qn 25.72 m[IU]/L High 0.30-5.00 [facility] Comment on above: Performed By: #### G LUF, LIPRF, TSH #### [facility] [address], [place] [id number] Chief Recordist: Beau Troncoso MD Vital Signs Date Time Vital Sign Value Performing Clinician Facility 07-30-2023 10:47-0500 Body height 172.7 cm [facility] 07-30-2023 10:47-0500 Body mass index (BMI) [Ratio] 36.74 kg/m2 [facility] 07-30-2023 10:47-0500 Body temperature 98.1 [degF] [facility] 07-30-2023 10:47-0500 Body weight 109.59 kg Tello [facility] 07-30-2023 10:47-0500 Diastolic blood pressure 80 mm[Hg] [facility]ello [facility] 07-30-2023 10:47-0500 Heart rate 89 /min LouieConnectem Work Phone: [facility] 07-30-2023 10:47-0500 SaO2% (BldA) [Mass fraction] 95 % [facility]ello [facility] 07-30-2023 10:47-0500 Systolic blood pressure 130 mm[Hg] Tello Work Phone: [facility] 11-22-2020 12:40-0400 Respiratory rate 29 /min Heena John MD [facility] Phone: 11-22-2020 12:40-0400 SaO2% (BldA) [Mass fraction] 100 % Heena John MD [facility] Phone: 11-22-2020 12:30-0400 Diastolic blood pressure 58 mm[Hg] Heena John MD [facility] Phone: 11-22-2020 12:30-0400 Heart rate 85 /min Heena John MD [facility] Phone: 11-22-2020 12:30-0400 Systolic blood pressure 108 mm[Hg] Heena John MD [facility] Phone: 11-22-2020 12:09-0400 Body height 175.3 cm Heena John MD [facility] Phone: 11-22-2020 12:09-0400 Body mass index (BMI) [Ratio] 33.97 kg/m2 Heena John MD [facility] Phone: 11-22-2020 12:09-0400 Body temperature 97.3 [degF] Heena John MD [facility] Phone: 11-22-2020 12:09-0400 Body weight 104.33 kg Heena John MD [facility] Phone: 11-02-2019 13:15-0400 BP Diastolic 61 mm[Hg] [employer] , [place] 11-02-2019 13:15-0400 BP Systolic 118 mm[Hg] [employer] [place] 11-02-2019 13:15-0400 Pulse (Heart Rate) 87 /min [employer] 11-02-2019 13:15-0400 Pulse Oximetry 97 % [employer] , [place] 11-02-2019 13:15-0400 Respiratory Rate 17 /min [facility] [place] 11-02-2019 10:12-0400 BMI (Body Mass Index) 29.53 kg/m2 [facility] 11-02-2019 10:12-0400 Body Temperature 98.91 [degF] [facility] [place] 11-02-2019 10:12-0400 Body weight 90.72 kg [facility] , [place] 10-08-2019 11:51-0400 Pulse Oximetry 98 % [facility] [place] 10-08-2019 11:51-0400 Respiratory Rate 12 /min [facility] 10-08-2019 08:42-0400 Body Temperature 98.1 [degF] [facility] 10-08-2019 08:42-0400 BP Diastolic 70 mm[Hg] [facility] , [place] 10-08-2019 08:42-0400 BP Systolic 137 mm[Hg] [facility] , [place] 10-08-2019 08:42-0400 Pulse (Heart Rate) 99 /min [facility] 10-08-2019 06:30-0400 BMI (Body Mass Index) 32.43 kg/m2 [facility], [place] 10-08-2019 06:30-0400 Body weight 99.6 kg [facility] , [place] 10-05-2019 18:01-0400 Height 175.3 cm [facility] , [place] 09-15-2019 18:31-0400 Body Temperature 98.91 [degF] [facility], [place] 09-15-2019 18:31-0400 BP Diastolic 63 mm[Hg] [facility] , [place] 09-15-2019 18:31-0400 BP Systolic 133 mm[Hg] [facility] , [place] 09-15-2019 18:31-0400 Pulse (Heart Rate) 101 /min [facility], [place] 09-15-2019 18:31-0400 Pulse Oximetry 93 % [facility] , [place] 09-15-2019 18:31-0400 Respiratory Rate 18 /min [facility] [place] 09-15-2019 17:26-0400 BMI (Body Mass Index) 32.19 kg/m2 Levy Holm [facility] 09-15-2019 17:26-0400 Body weight 98.88 kg Levy Felix [facility] , [place] 08-29-2019 15:11-0400 Pulse Oximetry 95 % [facility] , [place] 08-29-2019 14:42-0400 Body Temperature 98.29 [degF] [facility] [place] [place] 08-29-2019 14:42-0400 BP Diastolic 65 mm[Hg] [facility] [place] , [place] 08-29-2019 14:42-0400 BP Systolic 133 mm[Hg] Jacob [facility] , [place] 08-29-2019 14:42-0400 Pulse (Heart Rate) 84 /min Jacob [facility], [place] 08-29-2019 14:42-0400 Respiratory Rate 16 /min Jacob [facility] , [place] 08-29-2019 06:34-0400 BMI (Body Mass Index) 32.17 kg/m2 Jacob Granado [facility], [place] 08-29-2019 06:34-0400 Body weight 98.8 kg [facility] , [place] 08-25-2019 15:11-0500 Height 175.3 cm [facility] , [place] 08-10-2019 14:26-0500 Body Temperature 97.2 [degF] Heena John [facility] [place] 08-10-2019 14:26-0500 BP Diastolic 81 mm[Hg] Heena John [place] , [place] 08-10-2019 14:26-0500 BP Systolic 159 mm[Hg] Heena [place] , [place] 08-10-2019 14:26-0500 Pulse (Heart Rate) 86 /min Heena John [facility], [place] 08-10-2019 14:26-0500 Pulse Oximetry 94 % Heena John [facility] , [place] 08-10-2019 14:26-0500 Respiratory Rate 16 /min Heena John [facility], [place] 08-07-2019 06:00-0500 BMI (Body Mass Index) 31.58 kg/m2 Heena Holm [facility], [place] 08-07-2019 06:00-0500 Body weight 97 kg Heena Holm [facility] , [place] 08-05-2019 16:57-0500 Height 175.3 cm Heena John [facility] , [place] Encounters Encounter Date Encounter Type Care Provider Facility Start: 08-03-2023 End: 08-04-2023 ambulatory Belle Monet MD Facility:PM Dat Start: 07-30-2023 End: 07-30-2023 ambulatory LOUIE PAUL [facility] Start: 07-30-2023 End: 07-30-2023 Office outpatient visit 25 minutes Louie Paul DO Work Phone: [facility] Comment on above: Chronic obstructive pulmonary disease, unspecified COPD type ([facility]) (Primary Dx); Right-sided low back pain without sciatica, unspecified chronicity; Postoperative hypothyroidism; Obstructive sleep apnea Start: 07-19-2023 Refill Louie villa DO [facility] Comment on above: Acute exacerbation o f chronic obstructive pulmonary disease (COPD) ([facility]) Start: 07-14-2023 Refill Louie vlila DO Work Phone: [facility] - [facility] Medicine [...] 11-22-2020 Emergency department patient visit CADEN M [facility] Start: 11-22-2020 End: 11-22-2020 Emergency department patient visit Heena John MD [facility] ED Comment on above: COPD exacerbation (H CC) (Primary Dx) Start: 04-18-2020 End: 04-21-[address] [facility] Start: 04-16-2020 End: 04-17-2020 Patient encounter procedure [facility] Start: 04-16-2020 End: 04-16-2020 Subsequent hospital visit by physician [facility] Comment on above: Dizziness; Polydipsia Start: 03-23-2020 End: 03-26-2020 ambulatory ENESI O CORA [facility] Start: 03-23-2020 End: 03-25-2020 Subsequent hospital visit by physician [facility] M[facility] Rm [address] [facility] MRI Comment on above: Osteoarthritis of ri t acromioclavicular joint Start: 11-02-2019 End: 11-02-2019 Emergency department patient visit Warren Olivas Work Phone: [facility] ED Comment on above: COPD exacerbation (H CC) (Primary Dx) Start: 10-05-2019 End: 10-08-2019 Evaluation and management of inpatient Forest Childs Work Phone: [facility] Progressive Care Comment on above: COPD exacerbation (H CC) (Primary Dx); Acute respiratory failure with hypoxia (HCC) Start: 09-15-2019 End: 09-15-2019 Emergency department patient visit Levytanya Hermosillosnow Work Phone: [facility] ED Comment on above: Cough (Primary Dx); Abnormal CXR; Viral URI Start: 08-25-2019 End: 08-29-2019 Evaluation and management of inpatient Jacob Granado Work Phone: [facility] Med Surg Comment on above: COPD exacerbation (H CC) (Primary Dx); Influenza with respiratory manifestation other than pneumonia; COPD with acute exacerbation (HCC) Start: 08-05-2019 End: 08-10-2019 Evaluation and management of inpatient Heena Carlos A John [facility] Med Surg Comment on above: COPD exacerbation (H CC) (Primary Dx); Cough; Moderate persistent asthma with acute exacerbation Start: 05-11-2019 End: 05-12-2019 Patient encounter procedure NAJMA KEN [facility] Start: 05-11-2019 End: 05-11-2019 Subsequent hospital visit by physician Najma PATEL [place] [facility] Comment on above: Encounter for screen ing for diabetes mellitus; Screening for hyperlipidemia Procedures Date Procedure Procedure Detail Performing Clinician Start: 07-30-2023 Adult depression scr eening assessment Coderwall DO Work Phone: Start: 05-11-2023 Adult depression scr eening assessment Coderwall DO Work Phone: Start: 11-22-2020 Radiologic exam [...] Phone: Start: 08-09-2019 Blood count complete automated Of[facility] Childs Work Phone: Start: 08-08-2019 Cell count [...] COVID-19 Vaccine (1) COVID-19 Vaccin e (1) [facility] Phone: Comment on above: Postponed from 03/05 (Patient Refused) Start: 08-31-2025 Influenza vaccination Flu vacc ine (Season Ended) [facility] Phone: Comment on above: Postponed from 02/20 (Patient Refused) Start: 08-08-2024 Pneumococcal 0-64 ye ars Vaccine (2 of 2) Pneumococcal 0-64 years Vaccine (2 of 2) [facility] Phone: Start: 07-30-2024 Adult BMI Screening Adult BMI Screen [facility] Start: 07-30-2024 Depression Screening Depression Scre [facility] Start: 07-30-2024 Tobacco Screening Tobacco Screening [facility] Start: 05-11-2024 Adult BMI Screening Adult BMI Screen [facility] Start: 05-11-2024 Depression Screening Depression Scre [facility] Start: 05-11-2024 Lipid panel Lipid screen [place], [place] Start: 05-11-2024 Lipid screen Lipid screen [place] Start: 05-11-2024 Tobacco Screening Tobacco Screening [facility] Start: 12-12-2023 Tobacco Counseling Tobacco Counselin g [facility] Start: 09-20-2023 Influenza vaccination Influenza Vacc ine [facility] Comment on above: Postponed from 02/20 (Patient Refused) Start: 08-26-2023 End: 08-26-2023 Patient encounter procedure 08/26/2023 11:45 AM EST Office Visit [facility] [address] [address] Sarah Fernández, LOGISTICS SOLUTION MANAGER-LUGGAGE ATTENDANT [address], [address] [place] [address] [facility] Start: 08-12-2023 Adult BMI Follow Up Plan Adult BMI Follow Up Plan [facility] Start: 05-11-2022 Diabetes screen Diabetes screen [facility] [place] Start: 10-17-2021 Shingles Vaccine (1 of 2) Shingles Vaccine (1 of 2) [facility] Phone: Comment on above: Postponed from 03/05 (Patient Refused) Start: 04-16-2021 Hemoglobin A1c measurement A1C test (Diabetic or Prediabetic) [facility] Phone: Start: 04-16-2021 Thyroid stimulating hormone measurement TSH testing [facility] Phone: Start: 12-24-2020 DTaP/Tdap/Td vaccine (1 - Tdap) DTaP/Tdap/Td vaccine (1 - Tdap) [facility] Phone: Comment on above: Postponed from 03/05 (Patient Refused) Start: 10-05-2020 TSH Qn TSH testing [facility] [place] Start: 10-05-2020 TSH testing TSH testing [facility] [place] Start: 05-11-2020 TSH testing TSH testing [facility] [place] Start: 05-10-2020 End: 05-10-2020 Office Visit 05/10/2020 Office Visit Primary Care Najma Ken MD [address] [place] [address] [facility] Start: 05-05-2020 DTaP/Tdap/Td vaccine (1 - Tdap) DTaP/Tdap/Td vaccine (1 - Tdap) [place] Comment on above: Postponed from 03/05 (Patient Refused) Postponed from 03/05 (Patient Refused) Start: 05-05-2020 Hepatitis C screen Hepatitis C scree [place] Comment on above: Postponed from 03/05 (Patient Refused) Start: 05-05-2020 Hepatitis C screening Hepatitis C sc reen [place] Comment on above: Postponed from 03/05 (Patient Refused) Start: 05-05-2020 HIV screen HIV screen [place], [place] Comment on above: Postponed from 03/05 (Patient Refused) Start: 05-05-2020 HIV screening HIV screen [facility] Cristine [place] Comment on above: Postponed from 03/05 (Patient Refused) Start: 04-18-2020 End: 04-18-2020 Appointment 04/18/2020 Appointment Radiology [facility] CT Scan Start: 02-21-2020 Influenza vaccination [place] Start: 08-04-2019 End: 08-04-2019 Office Visit 08/04/2019 Office Visit Primary Care Najma Ken MD [address] [place] [address] [phone] [facility] Start: 02-20-2019 Influenza vaccination Flu vaccine (# 1) [place], [place] Start: [address] lung screening Low dose CT lung screening [place] Start: 2009 Administration of varicella zoster vaccine Zoster (Shingles) Vaccine (1 of 2) [facility] Start: 2009 Breast cancer screen Breast cancer s creen [place], [place] Start: 2009 Colon cancer screen colonoscopy Colon cancer screen colonoscopy [place] Start: 2009 Screening for malign ant neoplasm of breast Breast cancer screen [place] Start: 2009 Screening for malign ant neoplasm of colon Colon cancer screen colonoscopy [place] Start: 2009 Shingles Vaccine (1 of 2) Shingles Vaccine (1 of 2) [place] Start: 1999 Diabetes screen Diabetes screen [place], [place] Start: 1999 Lipid screen Lipid screen [place], [place] Start: 1978 DTaP,Tdap and Td Vaccines (1 - Tdap) DTaP,Tdap and Td Vaccines (1 - Tdap) [facility] Start: 1965 Pneumococcal 0-64 ye ars Vaccine (1 of 1 - PPSV23) Pneumococcal 0-64 years Vaccine (1 of 1 - PPSV23) [place], [place] Start: 1959 TSH testing TSH testing [place], [place] Acapella Acapella Respira tory Care Routine Daily until discontinued starting 08/06/2019 [place] Comment on above: Daily until disconti nued starting 08/06/2019 [place]B Stain [place] Comment on above: Release Upon Orderin g for 1 Occurrences starting 10/06/2019 ONE TIME for 1 Occur rences starting 08/08/2019 Basic Metabolic Prof Basic Metab olic Prof Lab Routine Daily until discontinued starting 08/06/2019, 5 completed [place] Comment on above: Daily until disconti nued starting 08/06/2019, 5 completed Body fluid cell count [place] Comment on above: Release Upon Orderin g for 1 Occurrences starting 10/06/2019 ONE TIME for 1 Occur rences starting 08/08/2019 CBC CBC Lab Routine Daily until discontinued starting 08/06/2019, 5 completed [place] Comment on above: Daily until disconti nued starting 08/06/2019, 5 completed End: 09-01-2019 CBC auto differential CBC auto differential Lab Routine Daily for 5 Occurrences starting 08/28/2019 until 09/01/2019, 2 completed [place] Comment on above: Daily for 5 Occurren kisha starting 08/28/2019 until 09/01/2019, 2 completed End: 09-01-2019 Comprehensive Metabolic Panel w/ Reflex to MG Comprehensive Metabolic Panel w/ Reflex to MG Lab Routine Daily for 5 Occurrences starting 08/28/2019 until 09/01/2019, 2 completed [facility] Comment on above: Daily for 5 Occurren kisha starting 08/28/2019 until 09/01/2019, 2 completed Culture with Smear, Acid Fast Bacillius [place] Comment on above: Release Upon Orderin g for 1 Occurrences starting 10/06/2019 ONE TIME for 1 Occur rences starting 08/08/2019 Culture, Fungus [place] Comment on above: Release Upon Orderin g for 1 Occurrences starting 10/06/2019 ONE TIME for 1 Occur rences starting 08/08/2019 End: 10-06-2019 Culture, Fungus Culture, Fungus Microbiology Routine Once for 1 Occurrences starting 10/06/2019 until 10/06/2019 [place] Comment on above: Once for 1 Occurrenc es starting 10/06/2019 until 10/06/2019 Culture, Legionella [place] Comment on above: Release Upon Orderin g for 1 Occurrences starting 10/06/2019 End: 10-06-2019 Culture, Legionella Culture, Legionella Microbiology Routine Once for 1 Occurrences starting 10/06/2019 until 10/06/2019 [place] Comment on above: Once for 1 Occurrenc es starting 10/06/2019 until 10/06/2019 Culture, Respiratory [facility] Laurie [place] Comment on above: Release Upon Orderin g for 1 Occurrences starting 10/06/2019 ONE TIME for 1 Occur rences starting 08/08/2019 Culture, Virus, Respiratory Culture, Virus, Respiratory Microbiology Routine Release Upon Ordering for 1 Occurrences starting 10/06/2019 [place] Comment on above: Release Upon Orderin g for 1 Occurrences starting 10/06/2019 Cytology, Non-Clinical Laboratory Science Professor Cytology, Non- Clinical Laboratory Science Professor Lab Routine ONE TIME for 1 Occurrences starting 08/08/2019 [place] Comment on above: ONE TIME for 1 Occur rences starting 08/08/2019 EKG 12 Lead EKG 12 Lead ECG STAT 11/02/2019 10:57 AM EDT [place] Fungal stain [place] Comment on above: Release Upon Orderin g for 1 Occurrences starting 10/06/2019 ONE TIME for 1 Occur rences starting 08/08/2019 End: 08-08-2019 Fungus Culture Fungus Culture Microbiology Routine Once for 1 Occurrences starting 08/08/2019 until 08/08/2019 [facility]: Once for 1 Occurrenc es starting 08/08/2019 until 08/08/2019 HHN Treatment [facility] [place] Comment on above: As Needed until [...] for 1 Occurrences starting 10/08/2019 until 10/08/2019 [facility] Comment on above: One Time for 1 Occur rences starting 10/08/2019 until 10/08/2019 End: 08-09-2019 Home O2 eval (desaturation screen) Home O2 eval (desaturation screen) Respiratory Care Routine One Time for 1 Occurrences starting 08/09/2019 until 08/09/2019 [facility] Comment on above: One Time for 1 Occur rences starting 08/09/2019 until 08/09/2019 Initiate Oxygen Ther apy Protocol [facility] [place] Comment on above: Daily until disconti nued starting 08/25/2019 Daily until disconti nued starting 08/27/2019 Daily until disconti nued starting 11/02/2019 MetaNeb MetaNeb Respirat ory Care Routine 0600, 1000, 1400, 1800, 2200 until discontinued starting 08/09/2019 [facility] Comment on above: 0600, 1000, 1400, 18 00, 2200 until discontinued starting 08/09/2019 Microscopic observat ion Gram stain Nom (Unsp spec) [place] Comment on above: Release Upon Orderin g for 1 Occurrences starting 10/06/2019 ONE TIME for 1 Occur rences starting 08/08/2019 End: 08-25-2019 Pulse Oximetry Spot Check Pulse Oximetry Spot Check Respiratory Care Routine One Time for 1 Occurrences starting 08/25/2019 until 08/25/2019 [place] Comment on above: One Time for 1 Occur rences starting 08/25/2019 until 08/25/2019 End: 08-27-2019 Pulse Oximetry Spot Check Pulse Oximetry Spot Check Respiratory Care Routine One Time for 1 Occurrences starting 08/27/2019 until 08/27/2019 [place] Comment on above: One Time for 1 Occur rences starting 08/27/2019 until 08/27/2019 Pulse oximetry, overnight Pulse oximetry, overnight Respiratory Care Routine Every 4hr until discontinued starting 08/09/2019 [place] Comment on above: Every 4hr until disc ontinued starting 08/09/2019 Respiratory Care Evaluation and Treat Respiratory Care Evaluation and Treat Respiratory Care Routine Daily until discontinued starting 10/05/2019 [place] Comment on above: Daily until disconti nued starting 10/05/2019 Respiratory care evaluation only [place] Comment on above: Daily until disconti nued starting 08/26/2019 Daily until disconti nued starting 11/23/2020 Immunizations Immunization Date Immunization Notes Care Provider Catherine howard 08-08-2019 pneumococcal vaccine , unspecified formulation [place] 08-08-2019 pneumococcal polysaccharide vaccine, 23 valent [place], [place] NEGATED: Highlighted row has not occurred!08-10-2019 influenza, injectable, quadrivalent, preservative free [place] NEGATED: Highlighted row has not occurred!08-09-2019 influenza, injectable, quadrivalent, preservative free [place] NEGATED: Highlighted row has not occurred!08-08-2019 influenza, injectable, quadrivalent, preservative free [place] Comment on above: Deferred: - Patient refused flu vaccine. Would not like the vaccine at all. Payers Date Payer Category Payer Unknown BCBS [place] - [place] P PO xxxxxxxxxxxx 2018-Present [address] [place] [address] xxxxxxxxxxxx [id number] 2016 Unknown [id number] 1959 Unknown [id number] 1959 Unknown [id number] 1959 Unknown [id number] 1959 Unknown [id number] 1959 Unknown [id number] 1959 Unknown [id number] 1959 Unknown [id number] 1959 Unknown [id number] [id number] 1959 Unknown [id number] [id number] 1959 Unknown [id number] 1959 Unknown [id number] [id number] 1959 Unknown [id number] 1959 Unknown [id number] [id number] 1959 Unknown [id number] [id number] 1959 Unknown [id number] 6 1959 Unknown [id number] Social History Date Type Detail Facility Start: 08-25-2019 End: 11-22-2020 Tobacco smoking status NHIS [place] Start: 08-25-2019 End: 08-02-2020 Cigarettes smoked current (pack per day) - Reported [facility] Start: 08-25-2019 End: 07-30-2023 Alcohol intake Current drinker of alcohol (finding) [place] Start: 08-08-2019 Tobacco Comment quit Jul 2019 [place] Start: 02-01-2019 Alcohol Comment OCCASIONALLY [place], [place] Start: 1960 Sex Assigned At Not on file [place] Start: 02-20-2020 End: 04-06-2022 Tobacco use and exposure Never used [place] Start: 05-05-2019 End: 04-06-2022 Tobacco smoking status UTIS Current every day smoker [facility] Exposure to SARS-CoV -2 (event) Unable to assess [place] End: 07-23-2019 History of tobacco use Current smoker Exposure to SARS-CoV -2 (event) Not sure History of tobacco use Cigarette Smoker P [facility] Start: 08-02-2020 End: 05-11-2023 Tobacco use panel [facility] Adolescent depressio n screening assessment 0 [facility] Start: 02-25-2023 Alcohol Comment Occasionally [facility] Goals Date Patient Goal Desired Activity [...] helped lift a safe at work at [employer] and felt sudden, intense pain that sent her to her knees. It was a [facility] case. This was when she was living in [place] in the mid to late . She [...] would also like a referral to an traffic lieutenant for a second opinion. She is taking her supplement but still feels tired. They had a friend who had normal labs but the traffic lieutenant did more labs and changed medications and [...] hypothyroidism - [facility] - [place], [place]; Future Refer to endocrinology for a second opinion Chronic obstructive pulmonary disease, unspecified COPD type ([facility]) Reviewed pulmonology consult with patient and . It was addressed at appointment and was doing ok. She needs to quit smoking. They also ordered labs but she hasn't gotten them done and didn't know she needed them. Encouraged to get labs. Obstructive sleep apnea She is not following treatment regimen. Recommended to follow recommendations. documented in this encounter [facility] 07-14-2023 Miscellaneous Notes Althea g of this note might be different from the original. Rx sent in. Patient due recheck appointment LM on VM documented in this encounter [facility] 07-14-2023 Telephone encount er Note Rx sent in. Patient due recheck appointment [facility] 07-14-2023 Telephone encount er Note LM on VM [facility] Evaluation note Diagnosis COPD exacerbation (HCC)- Primary Obstructive chronic bronchitis with exacerbation documented in this encounter [facility] Phone: evaluation note* Diagnosis Chronic rhinitis documented in this encounter [facility] System[facility] note* Diagnosis Acute exacerbation of chronic obstructive pulmonary disease (COPD) ([facility]) Obstructive chronic bronchitis with exacerbation documented in this encounter [facility] System[facility] note* Diagnosis Chronic obstructive pulmonary disease, unspecified COPD type ([facility])- Primary Right-sided low back pain without sciatica, unspecified chronicity Postoperative hypothyroidism Postsurgical hypothyroidism Obstructive sleep apnea Obstructive sleep apnea (adult) (pediatric) [facility] Attachments The following attachments cannot be sent through Care Everywhere. * COPD Exacerbation Plan ([place]) documented in this [facility] Phone: InstructionsNot on filedocumented in this encounter [facility] SystemInstructionsNot on filedocumented in this encounter [facility] [employer]InstructionsNot on filedocumented in this encounter [facility] for referral (narrative)* Consultation (Routine) - Pending Review Specialty Diagnoses / Procedures Referred By Emily horn Referred To Contact Endocrinology Diagnoses Postoperative hypothyroidism Louie Paul DO [address] [email or web address] [place] [address] Celia Calhoun MD [address] [address] Referral ID Status Reason Start Date Expiration Date Visits Requested Visits Authorized [id number] Pending Review Specialty Services Required 07/30/2023 07/29/2024 1 1 * Consultation (Routine) - Pending Review Specialty Diagnoses / Procedures Referred By Controger t Referred To Contact Pain Medicine Diagnoses Right-sided low back pain without sciatica, unspecified chronicity Louie Paul DO [address] [facility] [[email or web address]] [place] [address] [address] Referral ID Status Reason Start Date Expiration Date V isits Requested Visits Authorized [id number] Pending Review 07/30/2023 07/29/2024 1 1 [facility] History of Present Illness * Erin Ansari RN - 08/29/2019 7:38 PM EDT IV pulled by day RN. Patient dc papers given. Patient dc'd with all belongings and scripts. * Nati Neves OT - 08/29/2019 12:48 PM EDT [facility] OCCUPATIONAL THERAPY MISSED TREATMENT NOTE INPATIENT [...] ABGs: No results for input(s): PHART, PO2ART, FIF9MZL, NJG6GLE, BEART, Y1GUMHWA, XXU8KKC in the last 72 hours. PT/INR: No results found for: PTINR ASSESSMENT / PLAN: Copd exac - steroid, BD - to po meds Influenza - tamiflu Cough suppressants Okay for home from pulmonary standpoint Plan of care discussed with Dr Childs . REASON FOR VISIT: copd, influenza I examined the patient myself The assessment and Plan in the note per my discussion with UROLOGIST MD. . * Dalila Dash RN - 08/29/2019 [...] ABGs: No results for input(s): PHART, PO2ART, LZD7AEE, URN2TFK, BEART, Y9VBEBGA, GCQ7QVA in the last 72 hours. PT/INR: No results found for: PTINR ASSESSMENT / PLAN: Copd exac - steroid, BD - to po meds Influenza - tamiflu Cough suppressants . 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 PT/INR: No results found for: PTINR ASSESSMENT / PLAN: Copd exac - steroid, BD Influenza - tamiflu Cough suppressants . * Fuentes Jiang MD - 08/27/2019 11:11 AM EST Progress Note 08/27/2019 11:11 AM Name: Cameron Us Acct: [id number] Room: [facility] Day: 1 Admit Date: 08/25/2019 [...] file Gets together: Not on file Attends jew service: Not on file Active member of [...] ABGs: No results for input(s): PHART, PO2ART, VEM0YWN, FLT8CPB, BEART, U7LTPNZS, RMD1MQK in the last 72 hours. PT/INR: No [...] NKDA Other pertinent information: Medications confirmed with [facility] Pharmacy. Thank you, Amanda Ellison, PharmD, [facility] [phone] documented in this encounter* Joseph Butterfield RCP [...] 10/07/2019 4:04 PM Name: Cameron Us Acct: [id number] Room: [facility] Day: 1 Admit Date: 10/05/2019 [...] file Gets together: Not on file Attends jew service: Not on file Active member of [...] ABGs: No results for input(s): PHART, PO2ART, GKX5RAJ, HUG8DGS, BEART, J9ORTLZV, ZQL1PNQ in the last 72 hours. PT/INR: No [...] in the note per my discussion with UROLOGIST MD. . * Wendy Parra, RN - 10/07/2019 12:23 AM EDT Pt. Stated my grandson came to the E.R., Dr. Told him he probubly has cov. 19, he was not tested. Pt. Continued to say they gave him a paper on what to look for. Weir Fisher updated Dr. Childs. No orders given for [...] up appointments. The pt refused for the racebook writer to take her down stairs and [...] ABGs: No results for input(s): PHART, PO2ART, APK2NRB, TXZ1WZJ, BEART, T0SRXGON, RWU9VDK in the last 72 hours. PT/INR: No [...] Home [] Home with Home Health [] Residential Facility [] [facility] Patient is admitted as inpatient status because of co-morbidities listed above, severity of signs and symptoms as outlined, requirement for current medical therapies and most importantly because of direct risk to patient if care not provided in a hospital setting. Caden Baldwin MD [facility] Hospitalist * Jacob Luis, [facility] - 08/09/2019 3:50 PM EST Home Oxygen [...] ABGs: No results for input(s): PHART, PO2ART, SOC8NZY, JRW8IVN, BEART, F1SCBBUJ, RCM4CYP in the last 72 hours. PT/INR: No [...] in the note per my discussion with UROLOGIST MD. . * Caden Baldwin MD - 08/08/2019 [...] Home [] Home with Home Health [] Residential Facility [] [facility] Patient is admitted as inpatient status because of co-morbidities listed above, severity of signs and symptoms as outlined, requirement for current medical therapies and most importantly because of direct risk to patient if care not provided in a hospital setting. Caden Baldwin MD [facility] Hospitalist * Cynthia Russell - 08/08/2019 3:40 PM EST Ms. Cameron Us is a 59yowf admitted to [facility] for evaluation of COPD exacerbation. Ms. [...] ABGs: No results for input(s): PHART, PO2ART, KZJ6DYJ, GWV6STA, BEART, Z0FVNKZU, ZFY1VXV in the last 72 hours. PT/INR: No [...] Ana Strickland MD [facility] [address] [id number] * Laura Mathis RN - 08/07/2019 3:15 PM EST Pt. Arrived to room 2045. Vitals obtained. Assessment Completed. Pt. Denies any needs at this time.Will Continue to monitor. * Reina Smith RN - 08/07/2019 3:00 PM EST I agree with the charting of Shellie HALL * Analia James [facility] - 08/06/2019 9:25 PM EST Spoke with Dr. Childs and informed him that Codeine and Tylenol #3 are nonformulary and unavailable at [facility] suggested Phenergan with codeine. He is very insistent that we try to obtain some, he used it at [place] last month. Per [facility], [facility] appears to have Tylenol #3 still in stock. Called and spoke with pharmacist at [facility], she will call her tool and die manager or hide buyer and find out if she can share with us, will call us back this evening. Awaiting call back. Analia Jaems,PharmD, 08/06/2019, 9:28 PM * Tere Tafoya RN - 08/06/2019 8:45 PM EST Return call received from Dr Childs. He doesn't want Phenergan with codeine due to patient being on Hycodan. Wants to see if pharmacy can get in Codeine tablets. Weir Fisher talked with pharmacy and was informed there [...] NKDA Other pertinent information: Medications confirmed with [facility] Pharmacy. Thank you, Amanda Ellison, PharmD, [facility] [phone] * Jacob Luis [facility] - 08/05/2019 2:11 PM EST [...] FoundDocuments on File Type Date Recorded Patient Dot Etcher Apprentice Expl anation Advance Directives and Living Will Power of Partner Manager Latest Code Status on File Code Status [...] Documents on File Type Date Recorded Patient Dot Etcher Apprentice Expl anation ACP-Advance Directive ACP-Power of Partner Manager Latest Code Status on File Code Status Date Activated Date Inactivated Comments Full Code 10/05/2019 2:43 PM 10/08/2019 2:49 PM Full Code 08/27/2019 11:11 AM 08/29/2019 9:40 PM Full Code 08/25/2019 6:05 PM 08/27/2019 11:11 AM Full Code 08/25/2019 5:50 PM 08/25/2019 6:05 PM Full Code 08/05/2019 4:58 PM 08/10/2019 8:24 PM Documents on File Type Date Recorded Patient Dot Etcher Apprentice Expl anation ACP-Advance Directive ACP-Power of Partner Manager Latest Code Status on File Code Status Date Activated Date Inactivated Comments Full Code 10/05/2019 2:43 PM 10/08/2019 2:49 PM Full Code 08/27/2019 11:11 AM 08/29/2019 9:40 PM Documents on File Type Date Recorded Patient Dot Etcher Apprentice Expl anation Advance Directives and Living Will Power of Partner Manager Latest Code Status on File Code Status [...] be sent through Care Everywhere. * Cough ([place]i) * URI (Upper Respiratory Infection): Viral ([place]) * Coronavirus Disease COVID-19: Isolation ([place]) documented in this encounter* Instructions* Misty Sharp [...] to speak to responsible person post operatively: Yes([place] if here) Information obtained by: By signing below, I understand that if any problems occur once I leave the hospital I am to contactprimary care provider . I understand and acknowledge receipt of the instructions indicated above. * Attachments The following attachments cannot be sent through Care Everywhere. * COPD Exacerbation Plan ([place]) * COPD ([place]) * Smoking Cessation: Health Benefits: General Info ([place]i) documented in this encounter* Instructions* Warren Olivas [...] through Care Everywhere. * COPD: General Info ([place]i) documented in this encounter Reason for Referral Status Reason Specialty Diagnoses / Procedures Re ferred By Contact Referred To Contact Closed Radiology Diagnoses Osteoarthritis of right acromioclavicular joint Procedures MRI SHOULDER RIGHT WO CONTRAST Mao Shepherd MD [address] [facility] [address] [place] [address] Summary Purpose Family History No Family History [...] Influenza A Influenza A Caden Baldwin MD [address] [place] [id number] [employer] Reason Comments Cough Status Reason Specialty Diagnoses / Procedures Re ferred By Contact Referred To Contact Closed Radiology Diagnoses Osteoarthritis of right acromioclavicular joint Procedures MRI SHOULDER RIGHT WO CONTRAST Mao Shepherd MD [address] [phone] Status Reason Specialty Diagnoses / Procedures Referre d By Contact Referred To Contact Diagnoses chronic obstructive pulmonary disease Forest Childs MD [address] [address], [address] [place] [address] [employer] Reason Comments Cough Shortness of Breath Status Reason Specialty Diagnoses / Procedures Referre d By Contact Referred To Contact Diagnoses COPD exacerbation (HCC) Caden Baldwin MD [address] [place] [address] [employer] Reason Comments Cough Shortness of Breath Chills Emesis Reason Comments Shortness of Breath Cough Fatigue Headache Reason Comments Med Refill Reason Comments discuss pain. back down to h ip and up to the neck. Would like also a referral to traffic lieutenant. Chief complaint tired all the time INFORMATION SOURCE (unrecogn ized section and content) DATE CREATED AUTHOR 04/17/2020 [facility] DATE CREATED AUTHOR AUTHOR'S ORGANIZ ATION 11/23/2020 [facility] DATE CREATED AUTHOR AUTHOR'S ORGANIZ ATION 09/21/2021 [facility] DATE CREATED AUTHOR AUTHOR'S ORGANIZ ATION 12/20/2021 [facility] DATE CREATED AUTHOR AUTHOR'S ORGANIZ ATION 08/03/2023 [facility] DATE CREATED AUTHOR AUTHOR'S ORGANIZ ATION 08/09/2023 [facility] Ordered Prescriptions (unrec ognized section and content) [...] Care Teams (unrecognized sec tion and content) Energy Administrator Relationship Specialty Start Date End Date Louie Paul DO [address] [place] [address] PCP - General Family Medicine 09/27/21 Energy Administrator Relationship Specialty Start Date End Date Louie Paul DO [address] [place] [address] PCP - General Family Medicine 09/27/21 Energy Administrator Relationship Specialty Start Date End Date Louie Paul DO [address] [place] [address] PCP - General Family Medicine 09/27/21 FOR [...] BE BASED ON THE PRIMARY CLINICAL RECORDS. [employer] [facility]. provides no warranty or guarantee of the accuracy or completeness of information in this document.
--- NOTE | 2023-08-19 12:32 | P.CN_ITS ---
Consult Note: HPI Data of Consult Patient: known to practice within the last 3 years Consult date: 08/03/23 Requesting Physician: Giulia Carlin NP Primary Care Provider: HE PAUL Consult Narrative Reason for consult: low back pain Narrative: 63yof who presents for evaluation. worsening axial low back pain for several years. imaging reviewed, which shows moderate facet arthropathy in lower lumbar spine. continues in >6 weeks of provider directed home exercise program, with no benefit. uses tylenol as needed, without benefit. cannot take nsaids due to eliquis. denies adverse med side effects. Patient recently underwent bilateral L4-5 L5-S1 facet medial branch block #1 with >80% improvement immediately following and for 1 day. cc:: CC: Giulia Carlin NP Review of Systems ROS0 Status of ROS 10 or more systems reviewed and unremark able except as noted in history and below Musculoskeletal Reports: back pain PFSH PFSH Medical History S/P neck surgery, follow-up exam ?Z09 - Encounter for follow-up examination after completed treatment for conditions other than malignant neoplasm (ICD-10) Upper back pain ?M54.9 - Dorsalgia, unspecified (ICD-10) Neck pain ?M54.2 - Cervicalgia (ICD-10) Low back pain ?M54.50 - Low back pain, unspecified (ICD-10) Hypothyroidism ?E03.9 - Hypothyroidism, unspecified (ICD-10) Pulmonary embolism ?I26.99 - Other pulmonary embolism without acute cor pulmonale (ICD-10) COPD (chronic obstructive pulmonary disease) ?J44.9 - Chronic obstructive pulmonary disease, unspecified (ICD-10) Smoker ?F17.200 - Nicotine dependence, unspecified, uncomplicated (ICD-10) Chronic cough ?R05.3 - Chronic cough (ICD-10) Atrial fibrillation ?I48.91 - Unspecified atrial fibrillation (ICD-10) Surgical History H/O thumb surgery ?Z98.890 - Other specified postprocedural states (ICD-10) Hx of appendectomy ?Z90.49 - Acquired absence of other specified parts of digestive tract (ICD- 10) H/O: hysterectomy ?Z90.710 - Acquired absence of both cervix and uterus (ICD-10) H/O carpal tunnel repair ?Z98.890 - Other specified postprocedural states (ICD-10) H/O thyroidectomy ?E89.0 - Postprocedural hypothyroidism (ICD-10) Meds Home Medications and Allergies Home Medications Medication Instructions Recorded Confirmed Type albuterol sulfate 0.63 mg/3 mL 0.63 mg inhalation TID PRN 08/03/23 08/10/23 History solution for nebulization shortness of breath or wheezing apixaban 5 mg tablet (Eliquis) 5 mg PO BID 08/03/23 08/10/23 History budesonide 160 mcg-glycopyr 9 2 inh inhalation BID 08/03/23 08/10/23 History mcg-formot 4.8 mcg/actuation HFA inhaler (Breztri Aerosphere) diltiazem HCl 120 mg capsule,24 120 mg PO DAILY 08/03/23 08/10/23 History hr,extended release duloxetine 20 mg capsule,delayed 20 mg PO DAILY 08/03/23 08/10/23 History release levothyroxine 125 mcg capsule 125 mcg PO DAILY 08/03/23 08/10/23 History Allergies Allergy/AdvReac Type Severity Reaction Status Date / Time No Known Drug Allergies Allergy Verified 08/10/23 08:49 Exam Narrative Exam Narrative: Psych-alert and oriented x 3. Attentive and appropriate, constitutionally normal, displays normal mood and affect per situation.? There are no obvious deficits in memory, reasoning, or intellect.? Skin-no obvious rashes, bruising, erythema noted to the patient's area of pain. Extremities- extremities are warm with minimal edema and palpable pulses. Lumbar-no significant tenderness to palpation noted in the lumbar spine and paraspinal musculature.? Pain is elicited with extension, and lateral rotation of the lumbar spine. Range of motion is slightly diminished with these motions due to pain. Facet loading maneuvers are positive bilaterally and do appear to be concordant with the patient's normal complaints of pain.? Coordination remains intact.? Gait remains non-antalgic. Constitutional Documenting provider has reviewed patient's vital signs: yes Common normals: no apparent distress, oriented x3, healthy appearing, alert and well nourished General appearance: cooperative HENMT Common normals: normocephalic, hearing grossly normal bilaterally and moist oral mucous membranes Head and scalp: normocephalic Eye Common normals: PERRL Pupil: PERRL Neck & C-Spine Common normals: full ROM General: normal visual inspection Chest Common normals: inspection of chest normal Respiratory Common normals: normal respiratory effort, no retractions and no use of accessory muscles Neuro Common normals: oriented x3, CN's II-XII intact bilaterally, moves all extremities, no focal motor deficits, no sensory deficits noted and deep tendon reflexes 2+ bilaterally Sensorium/orientation: alert Motor exam: strength 5/5 throughout and no movement abnormalities noted Psych Common normals: mental status grossly normal, thought process normal, cooperative, affect normal, speech normal and activity/motor behavior normal Speech: normal speech Thought process: normal thought process Results Additional Findings Additional findings: I have checked an OARRS report on this patient today and there are no aberrancies noted in the prescribing history.?? A drug screen was completed and reviewed within the last year, and if there has not been a drug screen completed we ordered one today to monitor higher risk, state monitored pain medication use. As part of providing excellent, safe, comprehensive care, the following was completed at our patient's visit: 1. A medication reconciliation and review to ensure accurate knowledge of current/active medications, including asking our patients to inform us about any kygb-rot-mectbck medications or herbal remedies/nutritional supplements/alternative remedies. 2. A review to specifically ensure our patients have had annual screening for: elevated body mass index (BMI), tobacco use, screening for depression, and screening for unhealthy alcohol use. When screening is concerning, patients are provided with education and the specific recommendation to discuss the concerning health issue and treatment options with their primary care provider. Assessment and Plan Assessment and Plan (1) Lumbar spondylosis: Plan 63yof who presents for evaluation. failed conservative measures, as noted. imaging reviewed, as noted. given symptoms and imaging, prudent to attempt diagnostic bilateral l4-5, l5-s1 medial branch block #2 with 10mg PO valium under fluoroscopic guidance with intention of proceeding to radiofrequency ablation. she is in agreement. meds reviewed. will trial flexeril 10mg bid prn. risks vs benefits discussed, follow up after procedure.
== END 2023-08-19 12:23 | disposition home or self-care (01) ==
LOC: PM 12:22
PROVIDERS: PCP Family Medicine; Visit Provider Nurse Practitioner
DX: M47.816 Spondylosis without myelopathy or radiculopathy, lumbar region (principal)
CPT/HCPCS: G0463

== ENCOUNTER 2023-08-29 13:14 | Emergency (ER) | payer BC, SELFPAY ==
[2023-08-29 13:17] VITALS: BP 141/95; PULSE 102; RESP 22; TEMP 36.6; O2SAT 98; BMI 35.5
--- OUTSIDE RECORDS SUMMARY | 2023-08-29 13:28 | XMS_ITS | CCD ---
Author Name Unknown Address [address] [place] [address] Organization [facility] Care Team Providers Care Environmental Health And Safety Manager Name Role Phone Najma Ken Primary Care Provider Caden Baldwin Primary Care Provider Caden Baldwin Primary Care Provider FER KEND Michelle Referring Unavailabl e FER KEND Michelle Primary Care Unavailabl e FER KEND Michelle Referring Unavailabl e CADEN BALDWIN Primary Care Unavailabl e Caden Baldwin Primary Care Provider Caden Baldwin MD Primary Care Provider NAJMA KEN Referring Unavailabl e CADEN BALDWIN Primary Care Unavailabl e KAIDEN SHEPHERDESI O Referring Unavailable CADEN BALDWIN Primary Care [...] MOHINDER Admitting Unavailable JODY, MOHINDER Attending Unavailable MOHINDER VERA Consulting Unavailable KIMC, DR IBRAHIM Admitting Unavailable FURLONG, DR LOUIE Hawkins Primary Care Unavailable MIS, DR IBRAHIM Attending Unavailable MISC, DR IBRAHIM Consulting Unavailable ZIEBER, DR BARRON Strauss Consulting Unavailable TIMMIS, DR LARA Admitting Unavailable FURLONG, DR LOUIE Hawkins Primary Care Unavailable TIMMIS, DR LARA Attending Unavailable TIMMIS, DR LARA Consulting Unavailable JESSICAEBMICHELLE, DR BARRON Strauss Consulting Unavailable MOHINDER VERA Consulting Unavailable FURLONG, DR LOUIE Hawkins Primary Care Unavailable JAZMINE DODD Admitting Unavailable KHURRAM FULTON Consulting Unavailable JAZMINE DODD Attending Unavailable Gypsy Muñoz Consulting Unavailable KadeLouie villa DO Primary Care Provider LOUIE PAUL Attending Unavailable LOUIE PAUL Referring Unavailable LOUIE PAUL Primary Care Unavailable Tierney CARDENAS, Belle Streeter Attending Unavailable Tierney CARDENAS, Belle Streeter Attending Unavailable Allergies Allergy Classification Reported Allergen(s) Allergy Type Date of Onset Reaction(s) Facility Calcium Channel Blockers (1 source) dilTIAZem Drug Allergy 10-12-2019 Itching, Swelling, Rash [facility] (3 sources) dilTIAZem Drug Allergy 10-12-2019 Itching, Swelling, Rash [facility]- [place], [place] Medications Current Medications Medication Drug Class(es) Dates Sig (Normalized) Sig (Original) acetaminophen 325 mg oral tablet (9 sources) Start: 09-27-2021 take 2 tablets by [...] greater than 100.5 F (38 C), Starting [facility] 08/25/19 at 1749 Maximum dose of acetaminophen [...] 24 hours. albuterol 0.83 mg/ml inhalation solution (13 sources) beta2-Adrenergic Agonist Start: 05-11-2023 take 3 mL by inhalation every six hours as needed for wheezing albuterol (PROVENTIL,VENTOLIN) 2.5 mg /3 mL (0.083 %) nebulizer solution Indications: Chronic respiratory failure with hypoxia ([facility] Inhale 3 mL (2.5 mg total) by nebulization every 6 (six) hours as needed for wheezing. 75 mL 2 05/11/2023 Active Start: 09-27-2021 take 2 puff(s) by in halation four times daily albuterol (PROVENTIL HFA;VENTOLIN HFA) 90 mcg/actuation inhaler Indications: Acute exacerbation of chronic obstructive pulmonary disease (COPD) ([facility]) Inhale 2 puffs 4 (four) times a [...] 0 Active apixaban 5 mg oral tablet (16 sources) Factor Xa Inhibitor Start: 3 take 1 tablet by mouth twice daily ELIQUIS 5 mg tablet Indications: Paroxysmal atrial fibrillation ([facility]) TAKE 1 TABLET BY MOUTH TWICE A DAY 180 tablet 1 04/16/2023 Active Start: 10-01-2020 take 1 tablet by [facility] twice daily ELIQUIS 5 MG TABS tablet TAKE 1 TABLET BY MOUTH TWICE A DAY 180 tablet 1 10/01/2020 Active Start: 01-17-2020 take 1 tablet by [facility] twice daily ELIQUIS 5 MG TABS tablet TAKE 1 TABLET BY MOUTH TWICE A DAY 180 tablet 1 01/17/2020 Active Start: 07-20-2019 take 1 tablet by [facility] twice daily apixaban (ELIQUIS) 5 MG TABS tablet Take 1 tablet by mouth 2 times daily 180 tablet 1 07/20/2019 Active Start: 02-01-2019 take 1 tablet by [facility] twice daily apixaban (ELIQUIS) 5 MG TABS [...] / glycopyrrolate 0.009 mg/actuat metered dose inhaler (5 sources) Corticosteroid, beta2-Adrenergic Agonist Start: 07-19-2023 take 2 puff(s) by inhalation at bedtime acqsbwtgml-xwnhwkhc-jjb moterol (BREZTRI AEROSPHERE) 160-9-4.8 mcg/actuation HFA aerosol inhaler Indications: Acute exacerbation of chronic obstructive pulmonary disease (COPD) ([facility]) INHALE 2 PUFFS IN THE MORNING AND AT BEDTIME 10.7 g 0 07/19/2023 Active Start: 03-31-2023 End: 07-19-2023 take 2 puff(s) by inhalation at bedtime xvsfgqosoa-lwsdlpll-tetyrpoxhx (BREZTRI AEROSPHERE) 160-9-4.8 mcg/actuation HFA aerosol inhaler Indications: Acute exacerbation of chronic obstructive pulmonary disease (COPD) ([facility]) Inhale 2 puffs in the morning and at bedtime. 17.7 g 1 03/31/2023 07/19/2023 Discontinued cefuroxime 250 mg oral tablet (1 source) Cephalosporin Antibacterial Start: 08-10-2019 End: 08-15-2019 take 1 tablet by mouth twice daily cefUROXime (CEFTIN) 250 MG tablet Take 1 tablet by mouth 2 times daily for 5 days 10 tablet 0 08/10/2019 08/15/2019 Active cholecalciferol 0.125 mg oral tablet (4 sources) Vitamin D Start: 12-22-2022 take 1 [...] hydrochloride 120 mg extended release oral capsule (16 sources) Calcium Channel Royer Start: 05-11-2023 take 1 capsule by mouth every twenty-four hours in the morning dilTIAZem CD (CARDIZEM CD) 120 mg 24 hr capsule Indications: Paroxysmal atrial fibrillation (CMS-HCC) Take 1 capsule (120 mg total) by [...] Active Start: 11-28-2019 [facility] daily dilTIAZem (CARDIZEM) 30 MG [...] DULoxetine 20 mg delayed release oral capsule (17 sources) Serotonin and Norepinephrine Reuptake Inhibitor Start: 04-27-2023 take 1 capsule by mouth once daily DULoxetine (CYMBALTA) 20 mg capsule Indications: Fibromyalgia TAKE 1 CAPSULE BY MOUTH EVERY NIGHT 90 capsule 1 04/27/2023 Active Start: 11-09-2020 take 1 capsule by mo [facility] once daily DULoxetine (CYMBALTA) 20 MG extended release capsule TAKE 1 CAPSULE BY MOUTH EVERY DAY AT NIGHT 90 capsule 0 11/09/2020 Active Start: 02-21-2020 take 1 capsule by mo [facility] once daily DULoxetine (CYMBALTA) 20 MG extended [...] propionate 0.05 mg/actuat metered dose nasal spray (5 sources) Corticosteroid Start: 01-15-2023 End: 07-15-2023 take [...] % nebulizer solution 0.5 mg Lactobacillus acidophilus (4 sources) take 1 tablet by mouth once [...] Active levothyroxine sodium 0.125 mg oral tablet (17 sources) l-Thyroxine Start: 12-11-2022 take 1 tablet [...] omeprazole 20 mg delayed release oral capsule (4 sources) Proton Pump Inhibitor take 1 capsule [...] 0 08/29/2019 08/30/2019 Active polyethylene glycol 3350 31490 mg powder for oral solution (1 source) [...] Complications of surgical procedures or medical care (17 sources) Postoperative hypothyroidism; Translations: [Postprocedural hypothyroidism] Onset: 02-01-2019 08-26-2019 Chronic Conditions associated with dizziness or vertigo (1 source) Dizziness; Translations: [Dizziness] Episodic Genitourinary symptoms and ill-defined conditions (4 sources) Genuine stress incontinence; Translations: [Stress incontinence (female) (male)] Onset: 01-01-2022 01-01-2022 Chronic Osteoarthritis (1 source) Osteoarthritis of right acromioclavicular joint; Translations: [Osteoarthritis of right acromioclavicular joint] Other connective tissue disease (1 source) Imaging of thorax abnormal; Translations: [Abnormal CXR] Episodic Other connective tissue disease (8 sources) Trigger finger; Translations: [Trigger finger] Onset: 02-01-2019 02-01-2019 Other nervous system disorders (13 sources) Carpal tunnel syndrome; Translations: [Carpal tunnel [...] 07-30-2023 Chronic Respiratory failure; insufficiency; arrest (adult) (15 sources) Chronic hypoxemic respiratory failure; Translations: [Chronic respiratory failure with hypoxia] Onset: 10-07-2019 Resolved: 12-22-2022 10-07-2019 Chronic Spondylosis; intervertebral disc disorders; other back problems (1 source) Low back pain; Translations: [Right-sided low back pain without sciatica, unspecified chronicity] 07-30-2023 Episodic Substance-related disorders (5 sources) Nicotine dependence, cigarettes, uncomplicated; Translations: [Smoker] [...] Date Documented Da te Episodic/Chronic Cardiac dysrhythmias (13 sources) Tachycardia; Translations: [Tachycardia, unspecified] Onset: 08-26-2019 08-26-2019 Episodic Influenza (9 sources) Influenza due to Influenza A virus; Translations: [Influenza] Onset: 08-25-2019 Resolved: 09-25-2019 08-26-2019 Episodic Mood disorders (4 sources) Mood disorders Onset: 05-11-2023 Resolved: 07-30-2023 05-11-2023 Nausea and vomiting (4 sources) Nausea with vomiting, unspecified; Translations: [NAUSEA WITH VOMITING UNSPECIFIED] Onset: 07-02-2021 Episodic Other aftercare (1 source) Other termite renewal inspector (current) drug therapy; Translations: [OTH COLLEGE OR UNIVERSITY REGISTRAR CURRENT DRUG THERAPY] Onset: 07-04-2021 Episodic Other aftercare (1 source) long term care administrator (current) use of anticoagulants; Translations: [COLLEGE OR UNIVERSITY REGISTRAR CURRNT USE ANTICOAGULANTS] Onset: 07-04-2021 Episodic Other connective tissue disease (1 source) Trigger finger; Translations: [Trigger finger, unspecified finger] Onset: 02-01-2019 02-01-2019 Episodic Other connective tissue disease (4 sources) Triggering of digit; Translations: [Trigger finger, [...] caused by tuberculosis or sexually transmitted disease) (4 sources) Pneumonia; Translations: [Pneumonia, unspecified organism] Resolved: 07-03-2023 07-03-2023 Episodic Respiratory failure; insufficiency; arrest (adult) (1 source) Acute respiratory failure; Translations: [Acute respiratory failure with hypoxia (HCC)] Episodic Unclassified (1 source) COUGH, UNSPECIFIED; Translations: [COUGH, UNSPECIFIED] Onset: 09-12-2021 Unclassified (1 source) CONTACT W/AND (SUSP) EXPOS COVID-19; Translations: [CONTACT W/AND (SUSP) EXPOS COVID-19] Onset: 06-25-2021 Unclassified (4 sources) Onset: 08-18-2022 08-18-2022 Results Test Name Value Interpretation Reference Range Facility XR Lumbar spine 2 or 3 Views Ordered By: Edilma Cuevas on 07-30-2023 [facility] Radiology Study observation (narrative) [facility] CT NECK [facility] [place] CT NECK [...] BARRON TATUM Date: 2021-10-04 09:24 Normal [facility] COMPREHENSIVE METABOLIC PANE Deven 09-19-2021 Albumin [Mass/Vol] 3.9 g/dL Normal 3.6-5.1 [facility] Comment on above: Performed By: #### 7 600, 89173, 85006 #### [facility] of [place] [address] Shirt Line Operator: Chalino Levy MD Albumin/Globulin [Mass ratio] 1.3 {ratio} Normal 1.0-2.5 [facility] Comment on above: Performed By: #### 7 600, 79471, 37009 #### [facility] of [address], [address] [place] [address] Shirt Line Operator: Chalino Levy MD ALP [Catalytic activity/Vol] 71 U/L Normal 37-153 [facility] Comment on above: Performed By: #### 7 600, 89549, 66672 #### [facility] of [place] [address] Shirt Line Operator: Chalino Levy MD ALT [Catalytic activity/Vol] 9 U/L Normal 6-29 [facility] Comment on above: Performed By: #### 7 600, 03789, 62410 #### [facility] [place] [address] Shirt Line Operator: Chalino Levy MD AST [Catalytic activity/Vol] 10 U/L Normal 10-35 [facility] Comment on above: Performed By: #### 7 600, 26743, 13900 #### [facility] of [place] [address] Shirt Line Operator: Chalino Levy MD Bilirubin [Mass/Vol] 0.6 mg/dL Normal 0.2-1.2 [facility] Comment on above: Performed By: #### 7 600, 51194, 91784 #### [facility] [place] [address] Shirt Line Operator: Chalino Levy MD BUN/CREATININE RATIO NOT APPLICABLE Normal 6-22 [facility] Comment on above: Performed By: #### 7 600, 30249, 59223 #### [facility] [address], [address] [place] [address] Shirt Line Operator: Chalino Levy MD Calcium [Mass/Vol] 9.0 mg/dL Normal 8.6-10.4 [facility] Comment on above: Performed By: #### 7 600, 49273, 20980 #### [facility] [address], [address] [place] [address] Shirt Line Operator: Chalino Levy MD Chloride [Moles/Vol] 103 mmol/L Normal 98-110 [facility] Comment on above: Performed By: #### 7 600, 06355, 71766 #### [facility] [address], [address] [place] [address] Shirt Line Operator: Chalino Levy MD CO2 [Moles/Vol] 31 mmol/L Normal 20-32 [facility] Comment on above: Performed By: #### 7 600, 39886, 27492 #### [facility] [place] [address] Shirt Line Operator: Chalino Levy MD Creatinine [Mass/Vol] 0.79 mg/dL Normal 0.50-0.[address] [facility] Comment on above: Result Comment: For patients >49 years of age, the reference limit for Creatinine is approximately 13% higher for people identified as -Japanese. Performed By: #### 7 600, 26753, 83939 #### [facility] [address], [address] [place] [address] Shirt Line Operator: Chalino Levy MD eGFR NON-AFR. MACANESE 80 mL/min/1.73m2 Normal > OR = 60 [facility] Comment on above: Performed By: #### 7 600, 03790, 39286 #### [facility] [place] [address] Shirt Line Operator: Chalino Levy MD GFR/1.73 sq M.predicted among blacks MDRD (S/P/Bld) [Vol rate/Area] 93 mL/min/{1.73_m2} Normal > OR = 60 [facility] Comment on above: Performed By: #### 7 600, 52440, 85177 #### [facility] [place] [address] Shirt Line Operator: Chalino Levy MD Globulin (S) [Mass/Vol] 3.0 g/dL Normal 1.9-3.7 [facility] Comment on above: Performed By: #### 7 600, , 09614 #### [facility] [place] [address] Shirt Line Operator: Chalino Levy MD Glucose [Mass/Vol] 105 mg/dL High 65-99 [facility] Comment on above: Result Comment: Fasting reference interval For someone without known diabetes, a glucose value between 100 and 125 mg/dL is consistent with prediabetes and should be confirmed with a follow-up test. Performed By: #### 7 600, , 98659 #### [facility] [place] [address] Shirt Line Operator: Chalino Levy MD Potassium [Moles/Vol] 4.3 mmol/L Normal 3.5-5.[address] [facility] Comment on above: Performed By: #### 7 600, 76048, 26639 #### [facility] [place] [address] Shirt Line Operator: Chalino Levy MD Protein [Mass/Vol] 6.9 g/dL Normal 6.1-8.1 [facility] Comment on above: Performed By: #### 7 600, 45003, 25687 #### [facility] [place] [address] Shirt Line Operator: Chalino Levy MD Sodium [Moles/Vol] 140 mmol/L Normal 135-146 [facility] Comment on above: Performed By: #### 7 600, 26341, 60848 #### [facility] [place] [address] Shirt Line Operator: Chalino Levy MD Urea nitrogen [Mass/Vol] 23 mg/dL Normal 7-25 [facility] Comment on above: Performed By: #### 7 600, 86368, 83910 #### [facility] [address], [address] [place] [address] Shirt Line Operator: Chalino Levy MD LIPID PANEL, [facility] 03-3 Cholesterol [Mass/Vol] 276 mg/dL High <200 [facility] Comment on above: Order Comment: FASTI NG:YES FASTING: YES Performed By: #### 7 600, 76351, 42069 #### [facility] [address], [address] [place] [address] Shirt Line Operator: Chalino Levy MD Cholesterol in HDL [Mass/Vol] 48 mg/dL Low > OR = 50 [facility] Comment on above: Order Comment: FASTI NG:YES FASTING: YES Performed By: #### 7 600, 55875, 26587 #### [facility] [address], [address] [place] [address] Shirt Line Operator: Chalino Levy MD Cholesterol in LDL [Mass/Vol] 188 mg/dL High [facility] Comment on above: Order Comment: FASTI NG:YES FASTING: YES Result Comment: Refe rence range: <100 Desirable range <100 mg/dL for primary prevention; <70 mg/dL for patients with CHD or diabetic patients with > or = 2 CHD risk factors. LDL-C is now calculated using the Raul calculation, which is a validated novel method providing better accuracy than the Friedewald equation in the estimation of LDL-C. Jose Roberto BOTELLO et al. EDGARDO. 2013;310(19): 5090-4204 (http://education.nuMVC.Upmann's/faq/MAT368) Performed By: #### 7 600, 84661, 33910 #### [facility] [address], [address] [place] [address] Shirt Line Operator: Chalino Levy MD Cholesterol.total/Chol esterol in HDL [Mass ratio] 5.8 {ratio} High <5.0 [facility] Comment on above: Order Comment: FASTI NG:YES FASTING: YES Performed By: #### 7 600, 82358, 53562 #### [facility] [address], [address] [place] [address] Shirt Line Operator: Chalino Levy MD NON HDL CHOLESTEROL 228 [...] therapeutic option. Performed By: #### 7 600, 09604, 73521 #### [facility] [address], [address] [place] [address] Shirt Line Operator: Chalino Levy MD Triglyceride [Mass/Vol] 212 mg/dL High <150 [facility] Comment on above: Order Comment: FASTI NG:YES FASTING: YES Result Comment: If a non-fasting specimen was collected, consider repeat triglyceride testing on a fasting specimen if clinically indicated. Levy et al. J. of Clin. Lipidol. 2015;9:129-169. Performed By: #### 7 600, 00394, 00465 #### [facility] [place] [address] Shirt Line Operator: Chalino Levy MD TSH+FREE T4on 09-19-2021 Free T4 [Mass/Vol] 1.4 ng/dL Normal 0.8-1.8 [facility] Comment on above: Performed By: #### 7 600, 10779, 78226 #### [facility] [place] [address] Shirt Line Operator: Chalino Levy MD TSH Qn 2.51 m[IU]/L Normal 0.40-4.50 [facility] Comment on above: Performed By: #### 7 600, 01625, 68662 #### [facility] [address], [address] [place] [address] Shirt Line Operator: Chalino Levy MD XR CHEST 2 Von [...] BARRON TATUM Date: 2021-09-12 16:03 Normal [facility] US ST HEAD_NECKon 08-25-[address] HEAD_NECK EXAM: US ST HEAD_NEC K HISTORY: Mass of neck COMPARISON: Ultrasound neck 02/07/2015. CT neck 01/24/2015 TECHNIQUE: Focused sonographic images in the posterior occipital region in the patient's reported area of concern. Additional left neck was scanned per heavy equipment service technician. FINDINGS: No suspicious mass identified within the [...] ASHLEE ESCUDERO Date: 2021-08-25 09:54 Normal [facility] CBC AUTO DIFFon 07-02-2021 BASO # 0.0 103/ul Normal 0.0-0.1 [facility] Comment on above: Performed By: #### C BC #### [facility] [address] [place] [address] [address] Bibi Emerson Basophils/100 WBC (Bld) 0.3 % Normal 0.2-2.0 [facility] Comment on above: Performed By: #### C BC #### [facility] [address] [place] [address] Dr. Bibi Emerson EO # 0.0 103/ul Normal 0.0-0.7 [facility] Comment on above: Performed By: #### C BC #### [facility] [address] [place] [address] Dr. Bibi Emerson Eosinophils/100 WBC (Bld) 0.0 % Critically low 0.9-7.0 [facility] Comment on above: Performed By: #### C BC #### [facility] [address] [place] [address] Dr. Bibi Emerson Erythrocyte distribution width (RBC) [Ratio] 13.0 % Normal 11.0-15.0 [facility] Comment on above: Performed By: #### C BC #### [facility] [address] [place] [address] Dr. Bibi Emerson Hematocrit (Bld) [Volume fraction] 47.0 % Normal 36.0-48.0 [facility] Comment on above: Performed By: #### C BC #### [facility] [address] [place] [address] Dr. Bibi Emerson Hemoglobin (Bld) [Mass/Vol] 15.5 g/dL Normal 12.0-16.0 [facility] Comment on above: Performed By: #### C BC #### [facility] [address] [place] [address] Dr. Bibi Emerson IG # 0.01 10e3/ul Normal 0.00-0.03 [facility] Comment on above: Performed By: #### C BC #### [facility] [address] [place] [address] Dr. Bibi Emerson IG % 0.2 % Normal 0.0-0.5 [facility] Comment on above: Performed By: #### C BC #### [facility] [address] [place] [address] Dr. Bibi Emerson LYMPH # 2.0 103/ul Normal 1.2-3.8 [facility] Comment on above: Performed By: #### C BC #### [facility] [address] [place] [address] Dr. Bibi Emerson Lymphocytes/100 WBC (Bld) 30.7 % Normal 20.5-60.0 [facility] Comment on above: Performed By: #### C BC #### [facility] [address] [place] [address] Dr. Bibi Emerson MANUAL DIFF REQ NO Normal [facility] Comment on above: Performed By: #### C BC #### [facility] [address] [place] [address] Dr. Bibi Emerson MCH (RBC) [Entitic mass] 29.8 pg Normal 26.7-34.0 [facility] Comment on above: Performed By: #### C BC #### [facility] [address] [place] [address] Dr. Bibi Emerson MCHC (RBC) [Mass/Vol] 33.0 g/dL Normal 29.9-35.2 [facility] Comment on above: Performed By: #### C BC #### [facility] [address] [place] [address] Dr. Bibi Emerson MCV (RBC) [Entitic vol] 90.2 fL Normal 81.0-99.0 [facility] Comment on above: Performed By: #### C BC #### [facility] [address] [place] [address] Dr. Bibi Emerson MONO # 0.5 103/ul Normal 0.3-0.8 [facility] Comment on above: Performed By: #### C BC #### [facility] [address] [place] [address] Dr. Bibi Emerson Monocytes/100 WBC (Bld) 7.9 % Normal 1.7-12.0 [facility] Comment on above: Performed By: #### C BC #### [facility] [address] [place] [address] Dr. Bibi Emerson NEUT # 4.0 103/ul Normal 1.4-6.5 [facility] Comment on above: Performed By: #### C BC #### [facility] [address] [place] [address] Dr. Bibi Emerson Neutrophils/100 WBC (Bld) 60.9 % Normal 43.0-75.0 [facility] Comment on above: Performed By: #### C BC #### [facility] [address] [place] [address] Dr. Bibi Emerson Platelet mean volume (Bld) [Entitic vol] 8.9 fL Critically low 9.5-13.5 [facility] Comment on above: Performed By: #### C BC #### [facility] [address] [place] [address] Dr. Bibi Emerosn PLT 303 103/ul Normal 150-450 [facility] Comment on above: Performed By: #### C BC #### [facility] [address] [place] [address] Dr. Bibi Emerson RBC 5.21 106/ul Normal 4.20-5.40 [facility] Comment on above: Performed By: #### C BC #### [facility] [address] [place] [address] Dr. Bibi Emerson WBC 6.5 103/ul Normal 4.0-11.0 [facility] Comment on above: Performed By: #### C BC #### [facility] [address] [place] [address] Dr. Bibi Emerson [facility] SARS-CoV-2 (COVID-19) RNA RAAD+probe Ql (Unsp spec) Detected Critically abnormal NOT DETECTED [facility] Comment on above: Result Comment: This test is not yet approved or cleared by the [place] FDA. When there are no FDA-approved or cleared tests available, and other criteria are met, FDA can make tests available under an emergency access mechanism called an Emergency Use Authorization (EUA). The EUA for this test is supported by the [employer] Historian of Health and Human Service's (HHS's) declaration [...] used). Performed By: #### C VDTBH #### [facility] [address] [place] [address] Dr. Bibi Emerson INFLUENZA A AND B AGon 07-02 INFLUANE SEE BELOW Normal [facility] Comment on above: Result Comment: Nega tive for Flu A protein angiten. Infection due to Flu A cannot be ruled out. Flu A angiten in the sample may be below the detection limit of the test. Performed By: #### I NFLUAB ####[facility] [address] [place], [place] [address]Dr. Bibi Emerson INFLUBNEG SEE BELOW Normal [facility] Comment on above: Result Comment: Nega tive for Flu B protein antigen. Infection due to Flu B cannot be ruled out. Flu B antigen in the sample may be below the detection limit of the test. Performed By: #### I NFLUAB ####[facility] [address] [place], [place] [address]DrNorma Emerson INFLUENZA A AG Negative Normal NEGATIVE SEE COMMENT [facility] Comment on above: Performed By: #### I NFLUAB ####[facility] [address] [place], [place] [address]Dr. Bibi Emerson INFLUENZA B AG Negative Normal NEGATIVE SEE COMMENT [facility] Comment on above: Performed By: #### I NFLUAB ####[facility] [address] [place], [place] [address]DrNorma Emerson INTERNAL CONTROLS Within Normal Limits Normal Wi thin Normal Limits [facility] Comment on above: Performed By: #### I NFLUAB ####[facility] [address] [place], [place] [address]DrNorma Emerson PROF CHEM 8 (BAS METB)on Anion gap [Moles/Vol] 12.0 mmol/L Normal [facility] Comment on above: Performed By: #### B MP #### [facility] [address] [place] [address] Dr. Bibi Emerson Calcium [Mass/Vol] 8.2 mg/dL Critically low 8.4-10.2 [facility] Comment on above: Performed By: #### B MP #### [facility] [address] [address] [address] Bibi Emerson Chloride [Moles/Vol] 102 mmol/L Normal 98-107 [facility] Comment on above: Performed By: #### B MP #### [facility] [address] [address] [address] Bibi Emerson CO2 [Moles/Vol] 27.6 mmol/L Normal 22.0-30.0 [facility] Comment on above: Performed By: #### B MP #### [facility] [address] [address] [address] Bibi Emerson Creatinine [Mass/Vol] 1.03 mg/dL Normal 0.52-1.04 [facility] Comment on above: Performed By: #### B MP #### [facility] [address] [address] [address] Bibi Emerson EGFR-AF MACANESE >60 Normal >=60 [facility] Comment on above: Performed By: #### B MP #### [facility] [address] [address] [address] Bibi Emerson EGFR-NON AF MACANESE 54 mL/min/1.73m2 Critically low >=60 [facility] Comment on above: Performed By: #### B MP #### [facility] [address] [address] [address] Bibi Emerson Glucose [Mass/Vol] 127 mg/dL Critically high 74-106 [facility] Comment on above: Performed By: #### B MP #### [facility] [address] [address] [address] Bibi Emerson Potassium [Moles/Vol] 3.6 mmol/L Normal 3.4-5.0 [facility] Comment on above: Performed By: #### B MP #### [facility] [address] [address] [address] Bibi Emerson Sodium [Moles/Vol] 138 mmol/L Normal 137-145 [facility] Comment on above: Performed By: #### B MP #### [facility] [address] [place], [place] [address] Dr. Bibi Emerson Urea nitrogen [Mass/Vol] 18.0 mg/dL Critically high 7.0-17.0 [facility] Comment on above: Performed By: #### B MP #### [facility] [address] [place], [place] [address] Dr. Bibi Emerson Urea nitrogen/Creatinine [Mass ratio] 17.5 mg/mg Normal [facility] Comment on above: Performed By: #### B MP #### [facility] [address] [place], [place] [address] Dr. Bibi Emerson XR CHEST 1 Von [...] GYPSY MUÑOZ Date: 2021-07-02 21:16 Normal [facility] Covid-19 PCR (CVDTB)on SARS-CoV-2 (COVID-19) RNA RAAD+probe Ql (Unsp spec) Not detected Normal NOT DETECTED [facility] Comment on above: Result Comment: This test is not yet approved or cleared by the [place] FDA. When there are no FDA-approved or cleared tests available, and other criteria are met, FDA can make tests available under an emergency access mechanism called an Emergency Use Authorization (EUA). The EUA for this test is supported by the [employer] Historian of Health and Human Service's (HHS's) declaration [...] consistent with SARS-CoV-2. Performed By: #### C VDTB ####[facility] [address] [place], [place] [address]QkNorma Emerson TSH+FREE T4on 03-27-2021 Free T4 [Mass/Vol] 1.2 ng/dL Normal 0.8-1.8 [facility] Comment on above: Performed By: #### 5 [id number] #### [facility] of [address], [address] [place] [address] Shirt Line Operator: Chalino Levy MD TSH Qn 2.23 m[IU]/L Normal 0.40-4.50 [facility] Comment on above: Performed By: #### 5 [id number] #### [facility] [address], [address] [place] [address] Shirt Line Operator: Chalino Levy MD Covid-19 PCR ([facility])on 02-20 SARS-CoV-2 (COVID-19) RNA RAAD+probe Ql (Unsp spec) Not detected Normal NOT DETECTED [facility] Comment on above: Result Comment: This test is not yet approved or cleared by the [place] FDA. When there are no FDA-approved or cleared tests available, and other criteria are met, FDA can make tests available under an emergency access mechanism called an Emergency Use Authorization (EUA). The EUA for this test is supported by the [employer] Historian of Health and Human Service's (HHS's) declaration [...] Performed By: #### C VDTBH, CVDAGS #### [facility] [address] [place] [address] Farida Yang SYMPTOMATIC COVID-19 ANTIGEN on 03-02-2021 EUA Statement SEE BELOW Normal [facility] [place] [facility] Comment on above: Result Comment: [...] is revoked sooner. Performed By: #### C AKIL, JACIAGS #### [facility] [address] [place] [address] Farida Celia SARS-CoV-2 (COVID-19) RNA RAAD+probe Ql (Unsp spec) Negative Normal NEGATIVE [facility] Comment on above: Result Comment: CONF IRMATION BY PCR PENDING PER CDC GUIDELINES/ SYMPTOMATIC PATIENT. Performed By: #### C VDTBH, CVDAGS #### [facility] [address] [place] [address] Farida Yang XR CHEST 1 Von 03-02-2021 [...] PALMER GREGORIO Date: 2021-03-02 13:11 Normal [facility] Basic Metabolic PanelOrdered By: Heena John on 11-22-2020 Anion gap [Moles/Vol] 9 mmol/L 9 - 17 mmol/L [employer] Phone: Calcium [Mass/Vol] 8.3 mg/dL Low 8.6 - 10. 4 mg/dL [employer] Phone: Chloride [Moles/Vol] 103 mmol/L 98 - 10 7 mmol/L [employer] Phone: CO2 [Moles/Vol] 29 mmol/L 20 - 31 mmol/L [employer] Phone: Creatinine [Mass/Vol] 0.77 mg/dL 0.50 - 0.90 mg/dL [employer] Phone: GFR >60 >60 mL/min [employer] Phone: GFR Non- >60 >60 mL/min [employer] Phone: GFR/1.73 sq M.predicted MDRD (S/P/Bld) [Vol rate/Area] [employer] Phone: Comment on above: Average GFR for 60-6 9 years old: 85 mL/min/1.73sq m Chronic Kidney Disease: <60 mL/min/1.73sq m Kidney failure: <15 mL/min/1.73sq m eGFR calculated using average adult body mass. Additional eGFR calculator available at: http://www.Kingspoke.Upmann's/multiple_crcl_2012.htm GFR/1.73 sq M.predicted MDRD (S/P/Bld) [Vol rate/Area] NOT REPORTED [facility] Phone: Glucose [Mass/Vol] 131 mg/dL High 70 - 99 mg/dL [employer] Phone: Interpretation and review of laboratory results Abnormal [employer] Phone: Potassium [Moles/Vol] 4.5 mmol/L 3.7 - 5.3 mmol/L [employer] Phone: Sodium [Moles/Vol] 141 mmol/L 135 - 144 mmol/L [facility] [employer] Phone: Urea nitrogen (BldV) [Mass/Vol] 21 mg/dL 8 - 23 mg/dL [facility] [employer] Phone: Urea nitrogen/Creatinine (Bld) [Mass ratio] NOT REPORTED [facility] [employer] Phone: [facility] [employer] Phone: Basic Metabolic Profon 11-22 (cont.) Normal [facility] Comment on above: Result Comment: Aver age GFR for 60-69 years old: 85 mL/min/1.73sq m Chronic Kidney Disease: <60 mL/min/1.73sq m Kidney failure: <15 mL/min/1.73sq m eGFR calculated using average adult body mass. Additional eGFR calculator available at: http://www.Phizzbo/multiple_crcl_2011.htm Performed By: #### C DP, BMP #### [facility] [address] [place] [address] Canvas Cutter: Justin Chambers DO Anion gap [Moles/Vol] 9 mmol/L Normal 9-17 [facility] Comment on above: Performed By: #### C DP, BMP #### [facility] [place] [address] Canvas Cutter: Justin Chambers DO Calcium [Mass/Vol] 8.3 mg/dL Low 8.6-10.4 [facility] Comment on above: Performed By: #### C MARION, BMP #### [facility] [address] [place] [address] Canvas Cutter: Justin Chambers DO Chloride [Moles/Vol] 103 mmol/L Normal 98-107 [facility] Comment on above: Performed By: #### C DP, BMP #### [facility] [place] [address] Canvas Cutter: Justin Chambers DO CO2 [Moles/Vol] 29 mmol/L Normal 20-31 [facility] Comment on above: Performed By: #### C DP, BMP #### [facility] [address] [place] [address] Canvas Cutter: Justin Chambers DO Creatinine [Mass/Vol] 0.77 mg/dL Normal 0.50-0.90 [facility] Comment on above: Performed By: #### C DP, BMP #### [facility] [address] [place] [address] Canvas Cutter: Justin Chambers DO GFR, Amer >60 Normal >60 [facility] Comment on above: Performed By: #### C DP, BMP #### [facility] [place] [address] Canvas Cutter: Justin Chambers DO GFR,non Amer >60 Normal >60 [facility] Comment on above: Performed By: #### C DP, BMP #### [facility] [facility] [place] [address] Canvas Cutter: Justin Chambers DO Glucose [Mass/Vol] 131 mg/dL High 70-99 [facility] Comment on above: Performed By: #### C DP, BMP #### [facility] [address] [place] [address] Canvas Cutter: Justin Chambers DO Potassium [Moles/Vol] 4.5 mmol/L Normal 3.7-5.3 [facility] Comment on above: Performed By: #### C DP, BMP #### [facility] [address] [place] [address] Canvas Cutter: Justin Chambers DO Sodium [Moles/Vol] 141 mmol/L Normal 135-144 [facility] Comment on above: Performed By: #### C DP, BMP #### [facility] [address] [facility] [place] [address] Canvas Cutter: Justin Chambers DO Urea nitrogen [Mass/Vol] 21 mg/dL Normal 8-23 [facility] Comment on above: Performed By: #### C DP, BMP #### [facility] [address] [facility] [place] [address] Canvas Cutter: Justin Chambers DO BUN/CRE Ratio NOT REPORTED Normal 9-20 [facility] Comment on above: Performed By: #### C DP, BMP #### [facility] [address] [place] [address] Canvas Cutter: Justin Chambers DO Staging: NOT REPORTED Normal [facility] Comment on above: Performed By: #### C DP, BMP #### [facility] [address] [place] [address] Canvas Cutter: Justin Chambers DO CBC Auto DifferentialOrdered By: Heena John on 11-22-2020 [employer] # 0.40 [facility] Work Phone: Absolute Immature Granulocyte NOT REPORTED [facility] Work Phone: Absolute Lymph # 1.80 [facility] Work Phone: Absolute [place] # 0.50 [facility] Work Phone: Basophils (Bld) [#/Vol] 0.10 10*3/uL [employer] Work Phone: Basophils/100 WBC (Bld) 1 % 0 - 2 % [employer] Work Phone: Differential Type NOT REPORTED [facility] Work Phone: Eosinophils/100 WBC (Bld) 4 % 0 - 4 % [employer] Work Phone: Hematocrit (Bld) [Volume fraction] 42.5 % 36 - 46 % [employer] Phone: Hemoglobin.gastrointes tinal spec 1 Ql (Stl) 13.8 g/dL 12.0 - 16.0 g/dL [employer] Phone: Immature Granulocytes NOT REPORTED 0 % [employer] Work Phone: Interpretation and review of laboratory results Abnormal [facility] [employer] Phone: Lymphocytes/100 WBC (Bld) 19 % Low 24 - 44 % [employer] Phone: MCH (RBC) [Entitic mass] 29.5 pg 26 - 34 pg [employer] Phone: MCHC (RBC) [Mass/Vol] 32.5 g/dL 31 - 3 7 g/dL [employer] Phone: MCV (RBC) [Entitic vol] 90.8 fL 80 - 100 fL [employer] Phone: Monocytes/100 WBC (Bld) 6 % 1 - 7 % [employer] Phone: NRBC Automated NOT REPORTED per 100 WBC [employer] [facility] Work Phone: Platelet distribution width (Bld) [Ratio] 13.3 % 11.5 - 14.9 % [employer] Phone: Platelet Estimate NOT REPORTED [facility] Phone: Platelet mean volume (Bld) [Entitic vol] 7.2 fL 6.0 - 12.0 fL [employer] Phone: Platelets (Bld) [#/Vol] 388 10*3/uL [employer] Phone: RBC (Bld) [#/Vol] 4.68 10*6/uL 4.0 - 5.2 m/uL [employer] Phone: RBC (Bld) [#/Vol] NOT REPORTED [employer] Work Phone: Segmented neutrophils/100 WBC (Bld) 70 % High 36 - 66 % [employer] Work Phone: Segs Absolute 6.70 [facility] Work Phone: WBC (Bld) [#/Vol] 9.4 10*3/uL [employer] Work Phone: WBC (Bld) [#/Vol] NOT REPORTED [employer] Work Phone: [employer] Work Phone: CBC with Diffon 11-22-2020 Abs. Basophil 0.10 k/uL Normal 0.0-0.2 [facility] Comment on above: Performed By: #### C DP, BMP #### [facility] [address] [place] [address] Canvas Cutter: Justin Chambers DO Abs.Neutrophil (Seg) 6.70 k/uL Normal 1.3-9.1 [facility] Comment on above: Performed By: #### C DP, BMP #### [facility] [address] [place] [address] Canvas Cutter: Justin Chambers DO Basophils/100 WBC (Bld) 1 % Normal 0-2 [facility] Comment on above: Performed By: #### C DP, BMP #### [facility] [place] [address] Canvas Cutter: Justin Chambers DO Eosinophils (Bld) [#/Vol] 0.40 10*3/uL Normal 0.0-0.4 [facility] Comment on above: Performed By: #### C DP, BMP #### [facility] [address] [place] [address] Canvas Cutter: Justin Chambers DO Eosinophils/100 WBC (Bld) 4 % Normal 0-4 [facility] Comment on above: Performed By: #### C MARION, BMP #### [facility] [place] [address] Canvas Cutter: Justin Chambers DO Erythrocyte distribution width (RBC) [Ratio] 13.3 % Normal 11.5-14.9 [facility] Comment on above: Performed By: #### C DP, BMP #### [facility] [place] [address] Canvas Cutter: Justin Chambers DO Hematocrit (Bld) [Volume fraction] 42.5 % Normal 36-46 [facility] Comment on above: Performed By: #### C DP, BMP #### [facility] [address] [place] [address] Canvas Cutter: Justin Chambers DO Hemoglobin (Bld) [Mass/Vol] 13.8 g/dL Normal 12.0-16.0 [facility] Comment on above: Performed By: #### C MARION, BMP #### [facility] [address] [place] [address] Canvas Cutter: Justin Chambers DO Lymphocytes (Bld) [#/Vol] 1.80 10*3/uL Normal 1.0-4.8 [facility] Comment on above: Performed By: #### C DP, BMP #### [facility] [place] [address] Canvas Cutter: Justin Chambers DO Lymphocytes/100 WBC (Bld) 19 % Low 24-44 [facility] Comment on above: Performed By: #### C DP, BMP #### [facility] [place] [address] Canvas Cutter: Justin Chambers DO MCH (RBC) [Entitic mass] 29.5 pg Normal 26-34 [facility] Comment on above: Performed By: #### C DP, BMP #### [facility] [place] [address] Canvas Cutter: Justin Chambers DO MCHC (RBC) [Mass/Vol] 32.5 g/dL Normal 31-37 [facility] Comment on above: Performed By: #### C DP, BMP #### [facility] [address] [place] [address] Canvas Cutter: Justin Chambers DO MCV (RBC) [Entitic vol] 90.8 fL Normal 80-100 [facility] Comment on above: Performed By: #### C DP, BMP #### [facility] [address] [place] [address] Canvas Cutter: Justin Chambers DO Monocytes (Bld) [#/Vol] 0.50 10*3/uL Normal 0.1-1.3 [facility] Comment on above: Performed By: #### C MARION, BMP #### [facility] [address] [place] [address] Canvas Cutter: Justin Chambers DO Monocytes/100 WBC (Bld) 6 % Normal 1-7 [facility] Comment on above: Performed By: #### C DP, BMP #### [facility] [address] [place] [address] Canvas Cutter: Justin Chambers DO Neutrophil (Seg) 70 % High 36-66 [facility] Comment on above: Performed By: #### C DP, BMP #### [facility] [address] [place] [address] Canvas Cutter: Justin Chambers DO Platelet mean volume (Bld) [Entitic vol] 7.2 fL Normal 6.0-12.0 [facility] Comment on above: Performed By: #### C DP, BMP #### [facility] [address] [place] [address] Canvas Cutter: Justin Chambers DO Platelets (Bld) [#/Vol] 388 10*3/uL Normal 150-450 [facility] Comment on above: Performed By: #### C DP, BMP #### [facility] [address] [place] [address] Canvas Cutter: Justin Chambers DO RBC (Bld) [#/Vol] 4.68 10*6/uL Normal 4.0-5.2 [facility] Comment on above: Performed By: #### C DP, BMP #### [facility] [address] [place] [address] Canvas Cutter: Justin Chambers DO WBC (Bld) [#/Vol] 9.4 10*3/uL Normal 3.5-11.0 [facility] Comment on above: Performed By: #### C MARION, BMP #### [facility] [address] [place] [address] Canvas Cutter: Justin Chambers DO Abs.Imm.Granulocyte NOT REPORTED Normal 0.00-0.30 [facility] Comment on above: Performed By: #### C DP, BMP #### [facility] [address] [place] [address] Canvas Cutter: Justin Chambers DO Auto Diff Performed NOT REPORTED Normal [facility] Comment on above: Performed By: #### C DP, BMP #### [facility] [address] [place] [address] Canvas Cutter: Justin Chambers DO Immature Granulocyte NOT REPORTED Normal 0 [facility] Comment on above: Performed By: #### C DP, BMP #### [facility] [address] [facility] [place] [address] Canvas Cutter: Justin Chambers DO NRBC Automated NOT REPORTED Normal [facility] Comment on above: Performed By: #### C DP, BMP #### [facility] [address] [facility] [place] [address] Canvas Cutter: Justin Chambers DO Platelet Estimate NOT REPORTED Normal [facility] Comment on above: Performed By: #### C DP, BMP #### [facility] [address] [place] [address]. [place] [address] Canvas Cutter: Justin Chambers DO RBC morphology finding Nom (Bld) NOT REPORTED Normal [facility] Comment on above: Performed By: #### C DP, BMP #### [facility] [address] [place] [address]. [place] [address] Canvas Cutter: Justin Chambers DO WBC Morphology NOT REPORTED Normal [facility] Comment on above: Performed By: #### C DP, BMP #### [facility] [place] [address] Canvas Cutter: Justin Chambers DO COVID-19, RapidOrdered By: Ifeoma John on 11-22-2020 SARS-CoV-2 (COVID-19) RNA RAAD+probe Ql (Unsp spec) Not detected Not Detected [facility] Work Phone: Comment on above: [...] management decisions. Fact sheet for Healthcare Providers: https://www.fda.gov/media/797199/download Fact sheet for Patients: https://www.fda.gov/media/539545/download Methodology: Isothermal Nucleic Acid Amplification Specimen Description .NASOPHARYNGEAL SWAB [facility] [employer] Phone: [facility] [employer] Phone: [id number] 11-22-2020 SARS-CoV-2 (COVID-19) RNA RAAD+probe Ql (Unsp spec) Not detected Normal [facility] Comment on above: Result Comment: Rapid NAAT: [...] management decisions. Fact sheet for Healthcare Providers: https://www.fda.gov/media/458570/download Fact sheet for Patients: https://www.fda.gov/media/214050/download Methodology: Isothermal Nucleic Acid Amplification Performed By: #### C OVRB #### [facility] [address] [place] [address] Canvas Cutter: Justin Chambers DO XR CHEST PORTABLEon 11-23-19 [...] process. Stable cardiomegaly and chronic basilar changes. [employer] Phone: EXAMINATION: ONE XRA Y VIEW OF [...] are age-appropriate. Chronic basilar changes are noted. [employer] Phone: Jose Antonio, pn Incoming Radiant Results From [employer] - 11/22/2020 1:15 PM EDT EXAMINATION: ONE [...] process. Stable cardiomegaly and chronic basilar changes. [employer] Phone: [facility] [employer] Phone: CT HEAD WO CONTRASTon 2019 CT [...] width (RBC) [Ratio] 13.0 % Normal 11.8-14.4 [facility] Comment on above: Performed By: #### C MEERA HARRIS, TSH #### [facility] [address] [place] [address] Canvas Cutter: Beau Troncoso MD Hematocrit (Bld) [Volume fraction] 45.8 % Normal 36.3-47.1 [facility] Comment on above: Performed By: #### C MEERA HARRIS, TSH #### [facility] [address] [place] [address] Canvas Cutter: Beau Troncoso MD Hemoglobin (Bld) [Mass/Vol] 14.3 g/dL Normal 11.9-15.1 [facility] Comment on above: Performed By: #### C MEERA HARRIS, TSH #### [address] [address] Canvas Cutter: Beau Troncoso MD MCH (RBC) [Entitic mass] 29.5 pg Normal 25.2-33.5 [facility] Comment on above: Performed By: #### C BC, CP, TSH #### [address] [address] Canvas Cutter: Beau Troncoso MD MCHC (RBC) [Mass/Vol] 31.2 g/dL Normal 28.4-34.[address] [facility] Comment on above: Performed By: #### C BC, CP, TSH #### [address] [address] Canvas Cutter: Beau Troncoso MD MCV (RBC) [Entitic vol] 94.6 fL Normal 82.6-102.9 [facility] Comment on above: Performed By: #### C BC, CP, TSH #### [address] [address] Canvas Cutter: Beau Troncoso MD NRBC Automated 0.0 per 100 WBC Normal 0.0 [facility] Comment on above: Performed By: #### C BC, CP, TSH #### [address] [address] Canvas Cutter: Beau Troncoso MD Platelet mean volume (Bld) [Entitic vol] 9.6 fL Normal 8.1-13.5 [facility] Comment on above: Performed By: #### C BC, CP, TSH #### [address] [address] Canvas Cutter: Beau Troncoso MD Platelets (Bld) [#/Vol] 419 10*3/uL Normal 138-453 [facility] Comment on above: Performed By: #### C BC, CP, TSH #### [address] [id number] Canvas Cutter: Beau Troncoso MD RBC (Bld) [#/Vol] 4.84 10*6/uL Normal 3.95-5.11 [facility] Comment on above: Performed By: #### C KIMBERLY, CP, TSH #### [facility] [address] [place], [place] [id number] Canvas Cutter: Beau Troncoso MD WBC (Bld) [#/Vol] 7.6 10*3/uL Normal 3.5-11.3 [facility] Comment on above: Performed By: #### C MEERA HARRIS, TSH #### [facility] [employer] [address] [place], [place] [id number] Canvas Cutter: Beau Troncoso MD Erythrocyte distribution width (RBC) [Ratio] 13.0 % 11.8 - 14.4 % [place] Hematocrit (Bld) [Volume fraction] 45.8 % 36.3 - 47.1 % [place] Hemoglobin (Bld) [Mass/Vol] 14.3 g/dL 11.9 - 15.1 g/dL [place] MCH (RBC) [Entitic mass] 29.5 pg 25.2 - 33.5 pg [place] MCHC (RBC) [Mass/Vol] 31.2 g/dL 28.4 - 34.8 g/dL [place] MCV (RBC) [Entitic vol] 94.6 fL 82.6 - 102.9 fL [place] Platelet mean volume (Bld) [Entitic vol] 9.6 fL 8.1 - 13.5 fL [place] Platelets (Bld) [#/Vol] 419 10*3/uL [place] RBC (Bld) [#/Vol] 4.84 10*6/uL 3.95 - 5.1 1 m/uL [place] WBC (Bld) [#/Vol] 0.0 10*3/uL 0.0 per 10 0 WBC [place] WBC (Bld) [#/Vol] 7.6 10*3/uL [facility] [place] Comp Metabolic Profon 2019 (cont.) Normal [facility] Comment on above: Result Comment: Aver age GFR for 60-69 years old: 85 mL/min/1.73sq m Chronic Kidney Disease: <60 mL/min/1.73sq m Kidney failure: <15 mL/min/1.73sq m eGFR calculated using average adult body mass. Additional eGFR calculator available at: http://www.Phizzbo/multiple_crcl_2012.htm Performed By: #### C KIMBERLY CP, TSH #### [address] [address] Canvas Cutter: Beau Troncoso MD Albumin [Mass/Vol] 4.0 g/dL Normal 3.5-5.2 [facility] Comment on above: Performed By: #### C KIMBERLY CP, TSH #### [facility] [address] [place] [phone] Canvas Cutter: Beau Troncoso MD Albumin/Globulin [Mass ratio] 1.4 {ratio} Normal 1.0-2.5 [facility] Comment on above: Performed By: #### C KIMBERLY CP, TSH #### [facility] [address] [place] [address] Canvas Cutter: Beau Troncoso MD Alkaline Phos 67 U/L Normal 35-104 [facility] Comment on above: Performed By: #### C KIMBERLY CP, TSH #### [facility] [place] [address] Canvas Cutter: Beau Troncoso MD ALT [Catalytic activity/Vol] 13 U/L Normal 5-33 [facility] Comment on above: Performed By: #### C KIMBERLY CP, TSH #### [facility] [address] [place] [phone] Can[employer] Cutter: Beau Troncoso MD Anion gap [Moles/Vol] 8 mmol/L Low 9-[address] [facility] Comment on above: Performed By: #### C KIMBERLY CP, TSH #### [facility] [address] [place] [phone] Canvas Cutter: Beau Troncoso MD AST [Catalytic activity/Vol] 12 U/L Normal <32 [facility] Comment on above: Performed By: #### C KIMBERLY CP, TSH #### [facility] [address] [place] [phone] Canvas Cutter: Beau Troncoso MD Bilirubin Ql (U) 0.30 mg/dL Normal 0.3-1.2 [facility] Comment on above: Performed By: #### C KIMBERLY CP, TSH #### [facility] [address] [place] [phone] Canvas Cutter: Beau Troncoso MD Calcium [Mass/Vol] 8.7 mg/dL Normal 8.6-10.4 [facility] Comment on above: Performed By: #### C KIMBERLY CP, TSH #### [facility] [address] [place] [phone] Canvas Cutter: Beau Troncoso MD Chloride [Moles/Vol] 102 mmol/L Normal 98-107 [facility] Comment on above: Performed By: #### C MEERA HARRIS, TSH #### [facility] [address] [place] [phone] Canvas Cutter: Beau Troncoso MD CO2 [Moles/Vol] 32 mmol/L High 20-31 [facility] Comment on above: Performed By: #### C KIMBERLY CP, TSH #### [facility] [address] [place] [phone] Canvas Cutter: Beau Troncoso MD Creatinine [Mass/Vol] 0.78 mg/dL Normal 0.50-0.[address] [facility] Comment on above: Performed By: #### C BC, CP, TSH #### [facility] [address] [place] [address] Canvas Cutter: Beau Troncoso MD GFR, Amer >60 Normal >60 [facility] Comment on above: Performed By: #### C BC, CP, TSH #### [facility] [address] [place] [phone] Canvas Cutter: Beau Troncoso MD GFR,non Amer >60 Normal >60 [facility] Comment on above: Performed By: #### C BC, CP, TSH #### [facility] [address] [place] [phone] Canvas Cutter: Beau Troncoso MD Glucose [Mass/Vol] 86 mg/dL Normal 70-99 [facility] Comment on above: Performed By: #### C BC, CP, TSH #### [facility] [address] [place] [address] Canvas Cutter: Beau Troncoso MD Potassium [Moles/Vol] 4.7 mmol/L Normal 3.7-5.[address] [facility] Comment on above: Performed By: #### C BC, CP, TSH #### [facility] [address] [place] [address] Canvas Cutter: Beau Troncoso MD Protein [Mass/Vol] 6.8 g/dL Normal 6.4-8.3 [facility] Comment on above: Performed By: #### C BC, CP, TSH #### [facility] [address] [place] [address] Canvas Cutter: Beau Troncoso MD Sodium [Moles/Vol] 142 mmol/L Normal 135-144 [facility] Comment on above: Performed By: #### C BC, CP, TSH #### [facility] [address] [place] [address] Canvas Cutter: Beau Troncoso MD Urea nitrogen [Mass/Vol] 22 mg/dL Normal 8-23 [facility] Comment on above: Performed By: #### C MEERA HARRIS, TSH #### [facility] [address] [place], [place] [phone] Canvas Cutter: Beau Troncoso MD BUN/CRE Ratio NOT REPORTED Normal 9-20 [facility] Comment on above: Performed By: #### C MEERA HARRIS, TSH #### [facility] [address] [place], [place] [phone] Canvas Cutter: Beau Troncoso MD Staging: NOT REPORTED Normal [facility] Comment on above: Performed By: #### C MEERA HARRIS, TSH #### [facility] [address] [place], [place] [phone] Canvas Cutter: Beau Troncoso MD [facility] Metabolic [facility] 04-16-2020 Albumin [Mass/Vol] 4 g/dL 3.5 - 5.2 g/dL [place] Albumin/Globulin [Mass ratio] 1.4 {ratio} [place] ALP [Catalytic activity/Vol] 67 U/L 35 - 104 U/L [place] ALT [Catalytic activity/Vol] 13 U/L 5 - 33 U/L [place] Anion gap [Moles/Vol] 8 mmol/L Low 9 - 17 mmol/L [place] AST [Catalytic activity/Vol] 12 U/L <32 [place] Bilirubin Ql (U) 0.30 mg/dL 0.3 - 1.2 mg/dL [place] Bun/Cre Ratio NOT REPORTED [place] Calcium [Mass/Vol] 8.7 mg/dL 8.6 - 10. 4 mg/dL [place] Chloride [Moles/Vol] 102 mmol/L 98 - 10 7 mmol/L [place] CO2 [Moles/Vol] 32 mmol/L High 20 - 31 mmol/L [place] Creatinine [Mass/Vol] 0.78 mg/dL 0.5 - 0.9 mg/dL [place] GFR >60 >60 mL/min [place] GFR Non- >60 >60 mL/min [place] GFR/1.73 sq M predicted among non-blacks MDRD (S/P/Bld) [Vol rate/Area] [place] Comment on above: Average GFR for 60-6 9 years old: 85 mL/min/1.73sq m Chronic Kidney Disease: <60 mL/min/1.73sq m Kidney failure: <15 mL/min/1.73sq m eGFR calculated using average adult body mass. Additional eGFR calculator available at: http://www.Phizzbo/[employer]crcl_2012.htm GFR/1.73 sq M predicted among non-blacks MDRD (S/P/Bld) [Vol rate/Area] NOT REPORTED [place] Glucose [Mass/Vol] 86 mg/dL 70 - 99 mg/dL [place] Interpretation and review of laboratory results Abnormal [place] Potassium [Moles/Vol] 4.7 mmol/L 3.7 - 5.3 mmol/L [place] Protein [Mass/Vol] 6.8 g/dL 6.4 - 8.3 g/dL [place] Sodium [Moles/Vol] 142 mmol/L 135 - 144 mmol/L [place] Urea nitrogen [Mass/Vol] 22 mg/dL 8 - 23 mg/dL [place] Hemoglobin A1Con 04-16-2020 Glucose [Mass/Vol] 126 mg/dL [place] Comment on above: The ADA and AACC rec ommend providing the estimated average glucose result to permit better patient understanding of their HBA1c result. HbA1c (Bld) [Mass fraction] 6.0 % 4 - 6 % [place] TSH without Reflexon 020 TSH Qn 0.89 m[IU]/L [place] Thyroid Stim. Horm.on 2019 TSH Qn 0.89 m[IU]/L Normal 0.30-5.00 [facility] Comment on above: Performed By: #### C BC, CP, TSH #### [place] [id number] [place] [phone] Canvas Cutter: Beau Troncoso MD MRI SHOULDER RIGHT WO [...] rotator cuff tear. 3. No biceps tear. [facility], [place] EXAMINATION: MRI OF THE RIGHT [...] are without obstructing or space occupying lesions. [facility] [place] Jose Antonio, Mhpn Incoming Radiant Results From [facility] - 03/25/2020 4:57 PM EDT EXAMINATION: MRI [...] rotator cuff tear. 3. No biceps tear. [place] C-Reactive Proteinon 11-01-2 020 CRP [Mass/Vol] 13 mg/L High 0 - 5 mg/L [place] CBC Auto Differentialon 10-20 Basophils (Bld) [#/Vol] 0.10 10*3/uL [place] Basophils/100 WBC (Bld) 1 % 0 - 2 % [place] Differential Type NOT REPORTED [place] Eosinophils (Bld) [#/Vol] 0.20 10*3/uL [place] Eosinophils/100 WBC (Bld) 3 % 0 - 4 % [place] Erythrocyte distribution width (RBC) [Ratio] 13.0 % 11.5 - 14.9 % [place] Hematocrit (Bld) [Volume fraction] 42.0 % 36 - 46 % [place] Hemoglobin (Bld) [Mass/Vol] 13.8 g/dL 12 - 16 g/dL [place] Interpretation and review of laboratory results Abnormal [place] Lymphocytes (Bld) [#/Vol] 1.10 10*3/uL [place] Lymphocytes/100 WBC (Bld) 13 % Low 24 - 44 % [place] MCH (RBC) [Entitic mass] 30.5 pg 26 - 34 pg [place] MCHC (RBC) [Mass/Vol] 32.7 g/dL 31 - 3 7 g/dL [place] MCV (RBC) [Entitic vol] 93.1 fL 80 - 100 fL [place] Monocytes (Bld) [#/Vol] 0.50 10*3/uL [place] Monocytes/100 WBC (Bld) 5 % 1 - 7 % [place] Platelet mean volume (Bld) [Entitic vol] 6.9 fL 6 - 12 fL [place] Platelets (Bld) [#/Vol] 382 10*3/uL [place] Platelets (Bld) [#/Vol] NOT REPORTED [place] RBC (Bld) [#/Vol] 4.51 10*6/uL 4 - 5.2 m/uL [place] RBC morphology finding Nom (Bld) NOT REPORTED [place] Segmented neutrophils/100 WBC (Bld) 78 % High 36 - 66 % [place] Segs Absolute 6.90 [place] WBC (Bld) [#/Vol] 8.8 10*3/uL [place] WBC (Bld) [#/Vol] NOT REPORTED per 100 WBC [place] WBC Morphology NOT REPORTED [place] Comprehensive Metabolic Pane deven 11-02-2019 Albumin [Mass/Vol] 4.1 g/dL 3.5 - 5.2 g/dL [place] Albumin/Globulin [Mass ratio] NOT REPORTED [place] ALP [Catalytic activity/Vol] 61 U/L 35 - 104 U/L [place] ALT [Catalytic activity/Vol] 13 U/L 5 - 33 U/L [place] Anion gap [Moles/Vol] 7 mmol/L Low 9 - 17 mmol/L [place] AST [Catalytic activity/Vol] 12 U/L <32 [place] Bilirubin Ql (U) 0.29 mg/dL Low 0.3 - 1.2 mg/dL [place] Bun/Cre Ratio NOT REPORTED [place] Calcium [Mass/Vol] 8.7 mg/dL 8.6 - 10. 4 mg/dL [place] Chloride [Moles/Vol] 101 mmol/L 98 - 10 7 mmol/L [place] CO2 [Moles/Vol] 31 mmol/L 20 - 31 mmol/L [place] Creatinine [Mass/Vol] 0.72 mg/dL 0.5 - 0.9 mg/dL [place] GFR >60 >60 mL/min [place] GFR Non- >60 >60 mL/min [place] GFR/1.73 sq M predicted among non-blacks MDRD (S/P/Bld) [Vol rate/Area] NOT REPORTED [place] GFR/1.73 sq M predicted among non-blacks MDRD (S/P/Bld) [Vol rate/Area] [place] Comment on above: Average GFR for 60-6 9 years old: 85 mL/min/1.73sq m Chronic Kidney Disease: <60 mL/min/1.73sq m Kidney failure: <15 mL/min/1.73sq m eGFR calculated using average adult body mass. Additional eGFR calculator available at: http://www.Phizzbo/[employer]crcl_2012.htm Glucose [Mass/Vol] 118 mg/dL High 70 - 99 mg/dL [place] Potassium [Moles/Vol] 4.8 mmol/L 3.7 - 5.3 mmol/L [place] Protein [Mass/Vol] 7.5 g/dL 6.4 - 8.3 g/dL [place] Sodium [Moles/Vol] 139 mmol/L 135 - 144 mmol/L [place] Urea nitrogen [Mass/Vol] 21 mg/dL 8 - 23 mg/dL [place] D-Dimer, Quantitativeon 10-20 D-Dimer, Quant <0.27 [place] Comment on above: When combined with [...] LD 173 U/L 135 - 214 U/L [place] Lactic Acid, Plasmaon 2019 Lactate [Moles/Vol] 0.5 mmol/L 0.5 - 2. 2 mmol/L [place] Lactic Acid, Whole Blood NOT REPORTED 0.7 - 2.1 mmol/L [place] Otheron 11-02-2019 Interpretation and review of laboratory results Abnormal [place] Immature granulocytes (Bld) [#/Vol] NOT REPORTED [place] Troponinon 11-02-2019 Troponin I.cardiac [Mass/Vol] NOT REPORTED [place] Troponin T.cardiac [Mass/Vol] NOT REPORTED <0.03 ng/mL [place] Troponin, High Sensitivity <6 0 - 14 ng/L [place] Comment on above: High Sensitivity Troponin values cannot be compared with other Troponin methodologies. Patients with high levels of Biotin oral intake (i.e >5mg/day) may have falsely decreased Troponin levels. Samples collected within 8 hours of biotin intake may require additional information for diagnosis. Troponin I.cardiac [Mass/Vol] NOT REPORTED [place] Troponin T.cardiac [Mass/Vol] NOT REPORTED <0.03 ng/mL [place] Troponin, High Sensitivity <6 0 - 14 ng/L [place] Comment on above: High Sensitivity Troponin values cannot be compared with other Troponin methodologies. Patients with high levels of Biotin oral intake (i.e >5mg/day) may have falsely decreased Troponin levels. Samples collected within 8 hours of biotin intake may require additional information for diagnosis. XR CHEST PORTABLEon 11-02-19 EXAMINATION: ONE XRA Y VIEW OF THE [...] unremarkable. The extrathoracic soft tissues are unremarkable. [place] Cardiomegaly and chronic pulmonary change without acute pulmonary process. [place] Jose Antonio, Mhpn Incoming Radiant Results From [employer] - 11/02/2019 10:59 AM EDT EXAMINATION: ONE [...] chronic pulmonary change without acute pulmonary process. [place] B.A.L. CELL COUNTon 10-07-19 20 Fluid Diff Comment Reviewed by pathologist: Justin Chambers D.O. [place] Comment on above: SLIDE REVIEWED. MACR OPHAGES AND MIXED INFLAMMATORY CELLS NOTED. CORRECTED ON 10/06 AT 1306: PREVIOUSLY REPORTED TO BE REVIEWED BY PATHOLOGIST RBC (Bld) [#/Vol] 913 /mm3 [place], [place] Specimen type Nom (Spec) .BRONCHIAL WASHINGS [place] WBC (Bld) [#/Vol] 38 /mm3 [place] Culture, Respiratoryon 10-06 Culture NORMAL RESPIRATORY CHERYL MODERATE GROWTH [place] Direct Exam FEW NEUTROPHILS Abnormal [place] Interpretation and review of laboratory results Abnormal [place] Special Requests NOT REPORTED [place] Specimen Description .BRONCHIAL WASHINGS [place] Fungal stainon 10-07-2019 Direct Exam NO FUNGAL ELEMENTS SEEN [place] Special Requests NOT REPORTED [place] Specimen Description .BRONCHIAL WASHINGS [place] Otheron 10-07-2019 Direct Exam Positive Abnormal [place] CBC with DIFFon 10-06-2019 Basophils (Bld) [#/Vol] 0.14 10*3/uL [place] Basophils/100 WBC (Bld) 1 % 0 - 2 % [place] Differential Type NOT REPORTED [place] Eosinophils (Bld) [#/Vol] 0.00 10*3/uL [place] Eosinophils/100 WBC (Bld) 0 % 0 - 4 % [place] Erythrocyte distribution width (RBC) [Ratio] 13.4 % 11.5 - 14.9 % [place] Hematocrit (Bld) [Volume fraction] 40.9 % 36 - 46 % [place] Hemoglobin (Bld) [Mass/Vol] 13.5 g/dL 12 - 16 g/dL [place] Interpretation and review of laboratory results Abnormal [place] Lymphocytes (Bld) [#/Vol] 1.15 10*3/uL [place] Lymphocytes/100 WBC (Bld) 8 % Low 24 - 44 % [place] MCH (RBC) [Entitic mass] 30.6 pg 26 - 34 pg [place] MCHC (RBC) [Mass/Vol] 33.0 g/dL 31 - 3 7 g/dL [place] MCV (RBC) [Entitic vol] 92.7 fL 80 - 100 fL [place] Monocytes (Bld) [#/Vol] 0.29 10*3/uL [place] Monocytes/100 WBC (Bld) 2 % 1 - 7 % [place] Morphology Den (Bld) [Interp] Normal [place] Platelet mean volume (Bld) [Entitic vol] 7.3 fL 6 - 12 fL [place] Platelets (Bld) [#/Vol] NOT REPORTED [place] Platelets (Bld) [#/Vol] 419 10*3/uL [place] RBC (Bld) [#/Vol] 4.41 10*6/uL 4 - 5.2 m/uL [place] RBC morphology finding Nom (Bld) NOT REPORTED [place] Segmented neutrophils/100 WBC (Bld) 89 % High 36 - 66 % [place] Segs Absolute 12.82 [place] WBC (Bld) [#/Vol] NOT REPORTED per 100 WBC [place] WBC (Bld) [#/Vol] 14.4 10*3/uL [place] WBC Morphology NOT REPORTED [place] Cell Count with Diff, BALon 10-06-2019 BAL Diff Comment TO BE REVIEWED BY PATHOLOGIST [place] Columnar Epis BAL PRESENT [place] Eosinophils/100 WBC (Bld) 4 % High 0 - 1 % [place] Interpretation and review of laboratory results Abnormal [place] Lymphocytes/100 WBC (Bld) 13 % High 8 - 12 % [place] Macrophages, BAL 61 % Low 85 - 95 % [place] Segmented neutrophils/100 WBC (Bld) 22 % High 0 - 10 % [place] Comp Metabolic Profon 2019 Albumin [Mass/Vol] 3.5 g/dL 3.5 - 5.2 g/dL [place] Albumin/Globulin [Mass ratio] NOT REPORTED [place] ALP [Catalytic activity/Vol] 49 U/L 35 - 104 U/L [place] ALT [Catalytic activity/Vol] 10 U/L 5 - 33 U/L [place] Anion gap [Moles/Vol] 12 mmol/L 9 - 17 mmol/L [place] AST [Catalytic activity/Vol] 12 U/L <32 [place] Bilirubin Ql (U) 0.30 mg/dL 0.3 - 1.2 mg/dL [place] Bun/Cre Ratio NOT REPORTED [place], [place] Calcium [Mass/Vol] 9.0 mg/dL 8.6 - 10. 4 mg/dL [place] Chloride [Moles/Vol] 100 mmol/L 98 - 10 7 mmol/L [place] CO2 [Moles/Vol] 26 mmol/L 20 - 31 mmol/L [place] Creatinine [Mass/Vol] 0.72 mg/dL 0.5 - 0.9 mg/dL [place] GFR >60 >60 mL/min [place] GFR Non- >60 >60 mL/min [place] GFR/1.73 sq M predicted among non-blacks MDRD (S/P/Bld) [Vol rate/Area] [place] Comment on above: Average GFR for 60-6 9 years old: 85 mL/min/1.73sq m Chronic Kidney Disease: <60 mL/min/1.73sq m Kidney failure: <15 mL/min/1.73sq m eGFR calculated using average adult body mass. Additional eGFR calculator available at: http://www.[employer]/multiple_crcl_2012.htm GFR/1.73 sq M predicted among non-blacks MDRD (S/P/Bld) [Vol rate/Area] NOT REPORTED [place] Glucose [Mass/Vol] 145 mg/dL High 70 - 99 mg/dL [place] Potassium [Moles/Vol] 4.1 mmol/L 3.7 - 5.3 mmol/L [place] Protein [Mass/Vol] 6.7 g/dL 6.4 - 8.3 g/dL [place] Sodium [Moles/Vol] 138 mmol/L 135 - 144 mmol/L [place] Urea nitrogen [Mass/Vol] 23 mg/dL 8 - 23 mg/dL [place] Culture, Virus, Respiratoryo n 10-06-2019 Culture VIRAL RESPIRATORY CULTURES ARE NOT LONGER PERFORMED [place] Special Requests NOT REPORTED [place] Specimen Description .BRONCHIAL WASHINGS [place] Otheron 10-06-2019 Interpretation and review of laboratory results Abnormal [place] Immature granulocytes (Bld) [#/Vol] NOT REPORTED [place] T4, Freeon 10-06-2019 Interpretation and review of laboratory results Abnormal [place] Thyroxine, Free 2.03 ng/dL High 0.93 - 1.7 ng/dL [place] TSH with Reflexon 10-06-2019 TSH Qn 0.10 m[IU]/L [place] Basic Metabolic Panel w/ Ref alvin to MGon 10-05-2019 Anion gap [Moles/Vol] 9 mmol/L 9 - 17 mmol/L [place] Bun/Cre Ratio NOT REPORTED [place], [place] Calcium [Mass/Vol] 8.8 mg/dL 8.6 - 10. 4 mg/dL [place] Chloride [Moles/Vol] 102 mmol/L 98 - 10 7 mmol/L [place] CO2 [Moles/Vol] 29 mmol/L 20 - 31 mmol/L [place] Creatinine [Mass/Vol] 0.72 mg/dL 0.5 - 0.9 mg/dL [place] GFR >60 >60 mL/min [place] GFR Non- >60 >60 mL/min [place] GFR/1.73 sq M predicted among non-blacks MDRD (S/P/Bld) [Vol rate/Area] NOT REPORTED [place] GFR/1.73 sq M predicted among non-blacks MDRD (S/P/Bld) [Vol rate/Area] [place] Comment on above: Average GFR for 60-6 9 years old: 85 mL/min/1.73sq m Chronic Kidney Disease: <60 mL/min/1.73sq m Kidney failure: <15 mL/min/1.73sq m eGFR calculated using average adult body mass. Additional eGFR calculator available at: http://www.[employer]/multiple_crcl_2012.htm Glucose [Mass/Vol] 97 mg/dL 70 - 99 mg/dL [place] Potassium [Moles/Vol] 4.3 mmol/L 3.7 - 5.3 mmol/L [place] Sodium [Moles/Vol] 140 mmol/L 135 - 144 mmol/L [place] Urea nitrogen [Mass/Vol] 18 mg/dL 8 - 23 mg/dL [place] CBC with DIFFon 10-05-2019 Basophils (Bld) [#/Vol] 0.10 10*3/uL [place] Basophils/100 WBC (Bld) 1 % 0 - 2 % [place] Differential Type NOT REPORTED [place] Eosinophils (Bld) [#/Vol] 0.50 10*3/uL [place] Eosinophils/100 WBC (Bld) 6 % High 0 - 4 % [place] Erythrocyte distribution width (RBC) [Ratio] 13.4 % 11.5 - 14.9 % [place] Hematocrit (Bld) [Volume fraction] 40.2 % 36 - 46 % [place] Hemoglobin (Bld) [Mass/Vol] 13.4 g/dL 12 - 16 g/dL [place] Interpretation and review of laboratory results Abnormal [place] Lymphocytes (Bld) [#/Vol] 2.50 10*3/uL [place] Lymphocytes/100 WBC (Bld) 30 % 24 - 44 % [place] MCH (RBC) [Entitic mass] 30.5 pg 26 - 34 pg [place] MCHC (RBC) [Mass/Vol] 33.3 g/dL 31 - 3 7 g/dL [place] MCV (RBC) [Entitic vol] 91.5 fL 80 - 100 fL [place] Monocytes (Bld) [#/Vol] 0.90 10*3/uL [place] Monocytes/100 WBC (Bld) 11 % High 1 - 7 % [place] Platelet mean volume (Bld) [Entitic vol] 6.9 fL 6 - 12 fL [place] Platelets (Bld) [#/Vol] 407 10*3/uL [place] Platelets (Bld) [#/Vol] NOT REPORTED [place] RBC (Bld) [#/Vol] 4.39 10*6/uL 4 - 5.2 m/uL [place] RBC morphology finding Nom (Bld) NOT REPORTED [place] Segmented neutrophils/100 WBC (Bld) 52 % 36 - 66 % [place] Segs Absolute 4.20 [facility] [place] WBC (Bld) [#/Vol] NOT REPORTED per 100 WBC [place] WBC (Bld) [#/Vol] 8.1 10*3/uL [place] WBC Morphology NOT REPORTED [place] Otheron 10-05-2019 Immature granulocytes (Bld) [#/Vol] NOT REPORTED 0 % [place] XR CHEST PORTABLEon 10-05-19 20 EXAMINATION: [...] could better evaluate lung parenchyma if indicated. [place] Jose Antonio, Mhpn Incoming Radiant Results From [employer] - 10/05/2019 6:01 PM EDT EXAMINATION: ONE [...] base. [facility] Patchy airspace dise ase representing atelectasis or infiltrate in the right lung base. Follow up to resolution is suggested. [facility] X[facility] CHEST PORTABLEon 09-15-19 20 Perihilar and suprahilar airspace opacities could represent interstitial edema versus developing airspace disease. Please correlate exam findings. Follow-up to assure resolution following medical treatment course recommended [facility] [place] EXAMINATION: ONE XRA Y VIEW OF THE CHEST 09/15/2019 5:51 pm COMPARISON: 08/25/2019 HISTORY: ORDERING SYSTEM PROVIDED HISTORY: cough TECHNOLOGIST PROVIDED HISTORY: cough Reason for Exam: cough Acuity: Unknown Type of Exam: Unknown FINDINGS: The cardiomediastinal silhouette is normal in size and contour. Perihilar edema. Patchy suprahilar airspace opacities.. No pleural effusion or pneumothorax is present. [facility] [place] Jose Antonio, Mhpn Incoming Radiant Results From [employer] - 09/15/2019 6:05 PM EDT EXAMINATION: ONE [...] assure resolution following medical treatment course [facility] CBC auto differentialon Basophils (Bld) [#/Vol] 0.00 10*3/uL [place] Basophils/100 WBC (Bld) 0 % 0 - 2 % [place] Differential Type NOT REPORTED [place] Eosinophils (Bld) [#/Vol] 0.00 10*3/uL [place] Eosinophils/100 WBC (Bld) 0 % 0 - 4 % [place] Erythrocyte distribution width (RBC) [Ratio] 13.8 % 11.5 - 14.9 % [place] Hematocrit (Bld) [Volume fraction] 39.9 % 36 - 46 % [place] Hemoglobin (Bld) [Mass/Vol] 13.1 g/dL 12 - 16 g/dL [place] Interpretation and review of laboratory results Abnormal [place] Lymphocytes (Bld) [#/Vol] 1.00 10*3/uL [place] Lymphocytes/100 WBC (Bld) 8 % Low 24 - 44 % [place] MCH (RBC) [Entitic mass] 30.8 pg 26 - 34 pg [place] MCHC (RBC) [Mass/Vol] 32.9 g/dL 31 - 3 7 g/dL [place] MCV (RBC) [Entitic vol] 93.5 fL 80 - 100 fL [place] Monocytes (Bld) [#/Vol] 0.90 10*3/uL [place] Monocytes/100 WBC (Bld) 7 % 1 - 7 % [place] Platelet mean volume (Bld) [Entitic vol] 6.7 fL 6 - 12 fL [place] Platelets (Bld) [#/Vol] NOT REPORTED [place] Platelets (Bld) [#/Vol] 341 10*3/uL [place] RBC (Bld) [#/Vol] 4.27 10*6/uL 4 - 5.2 m/uL [place] RBC morphology finding Nom (Bld) NOT REPORTED [place] Segmented neutrophils/100 WBC (Bld) 85 % High 36 - 66 % [place] Segs Absolute 11.30 High [place] WBC (Bld) [#/Vol] NOT REPORTED per 100 WBC [place] WBC (Bld) [#/Vol] 13.2 10*3/uL [place] WBC Morphology NOT REPORTED [place] Comprehensive Metabolic Pane l w/ Reflex to MGon 08-29-2019 Albumin [Mass/Vol] 3.3 g/dL Low 3.5 - 5.2 g/dL [place] Albumin/Globulin [Mass ratio] NOT REPORTED [place] ALP [Catalytic activity/Vol] 51 U/L 35 - 104 U/L [place] ALT [Catalytic activity/Vol] 28 U/L 5 - 33 U/L [place] Anion gap [Moles/Vol] 10 mmol/L 9 - 17 mmol/L [place] AST [Catalytic activity/Vol] 19 U/L <32 [place] Bilirubin Ql (U) 0.23 mg/dL Low 0.3 - 1.2 mg/dL [place] Bun/Cre Ratio NOT REPORTED [place], [place] Calcium [Mass/Vol] 7.9 mg/dL Low 8.6 - 10. 4 mg/dL [place] Chloride [Moles/Vol] 104 mmol/L 98 - 10 7 mmol/L [place] CO2 [Moles/Vol] 28 mmol/L 20 - 31 mmol/L [place] Creatinine [Mass/Vol] 0.73 mg/dL 0.5 - 0.9 mg/dL [place] GFR >60 >60 mL/min [place] GFR Non- >60 >60 mL/min [place] GFR/1.73 sq M predicted among non-blacks MDRD (S/P/Bld) [Vol rate/Area] [place] Comment on above: Average GFR for 60-6 9 years old: 85 mL/min/1.73sq m Chronic Kidney Disease: <60 mL/min/1.73sq m Kidney failure: <15 mL/min/1.73sq m eGFR calculated using average adult body mass. Additional eGFR calculator available at: http://www.Phizzbo/multiple_crcl_2012.htm GFR/1.73 sq M predicted among non-blacks MDRD (S/P/Bld) [Vol rate/Area] NOT REPORTED [place] Glucose [Mass/Vol] 125 mg/dL High 70 - 99 mg/dL [place] Interpretation and review of laboratory results Abnormal [place] Potassium [Moles/Vol] 4.5 mmol/L 3.7 - 5.3 mmol/L [place] Protein [Mass/Vol] 5.9 g/dL Low 6.4 - 8.3 g/dL [place] Sodium [Moles/Vol] 142 mmol/L 135 - 144 mmol/L [place] Urea nitrogen [Mass/Vol] 28 mg/dL High 8 - 23 mg/dL [place] Otheron 08-29-2019 Immature granulocytes (Bld) [#/Vol] NOT REPORTED [place] CBC auto differentialon Absolute Bands # 0.14 [place] Bands 1 % 0 - 10 % [place] Basophils (Bld) [#/Vol] 0.00 10*3/uL [place] Basophils/100 WBC (Bld) 0 % 0 - 2 % [place] Differential Type NOT REPORTED [place] Eosinophils (Bld) [#/Vol] 0.00 10*3/uL [place] Eosinophils/100 WBC (Bld) 0 % 0 - 4 % [place] Erythrocyte distribution width (RBC) [Ratio] 13.8 % 11.5 - 14.9 % [place] Hematocrit (Bld) [Volume fraction] 40.1 % 36 - 46 % [place] Hemoglobin (Bld) [Mass/Vol] 13.2 g/dL 12 - 16 g/dL [place] Interpretation and review of laboratory results Abnormal [place] Lymphocytes (Bld) [#/Vol] 0.85 10*3/uL [place] Lymphocytes/100 WBC (Bld) 6 % Low 24 - 44 % [place] MCH (RBC) [Entitic mass] 30.8 pg 26 - 34 pg [place] MCHC (RBC) [Mass/Vol] 32.9 g/dL 31 - 3 7 g/dL [place] MCV (RBC) [Entitic vol] 93.5 fL 80 - 100 fL [place] Monocytes (Bld) [#/Vol] 0.99 10*3/uL [place] Monocytes/100 WBC (Bld) 7 % 1 - 7 % [place] Morphology Den (Bld) [Interp] Normal [place] Platelet mean volume (Bld) [Entitic vol] 6.7 fL 6 - 12 fL [place] Platelets (Bld) [#/Vol] 339 10*3/uL [place] Platelets (Bld) [#/Vol] NOT REPORTED [place] RBC (Bld) [#/Vol] 4.29 10*6/uL 4 - 5.2 m/uL [place] RBC morphology finding Nom (Bld) NOT REPORTED [place] Segmented neutrophils/100 WBC (Bld) 86 % High 36 - 66 % [place] Segs Absolute 12.22 High [place] WBC (Bld) [#/Vol] 14.2 10*3/uL [place] WBC (Bld) [#/Vol] NOT REPORTED per 100 WBC [place] WBC Morphology NOT REPORTED [place] Comprehensive Metabolic Pane l w/ Reflex to MGon 08-28-2019 Albumin [Mass/Vol] 3.5 g/dL 3.5 - 5.2 g/dL [place] Albumin/Globulin [Mass ratio] NOT REPORTED [place] ALP [Catalytic activity/Vol] 52 U/L 35 - 104 U/L [place] ALT [Catalytic activity/Vol] 17 U/L 5 - 33 U/L [place] Anion gap [Moles/Vol] 10 mmol/L 9 - 17 mmol/L [place] AST [Catalytic activity/Vol] 13 U/L <32 [place] Bilirubin Ql (U) 0.16 mg/dL Low 0.3 - 1.2 mg/dL [place] Bun/Cre Ratio [facility]ED [facility] [place] Calcium [Mass/Vol] 7.8 mg/dL Low 8.6 - 10. 4 mg/dL [place] Chloride [Moles/Vol] 104 mmol/L 98 - 10 7 mmol/L [place] CO2 [Moles/Vol] 29 mmol/L 20 - 31 mmol/L [place] Creatinine [Mass/Vol] 0.82 mg/dL 0.5 - 0.9 mg/dL [place] GFR >60 >60 mL/min [place] GFR Non- >60 >60 mL/min [place] GFR/1.73 sq M predicted among non-blacks MDRD (S/P/Bld) [Vol rate/Area] [place] Comment on above: Average GFR for 60-6 9 years old: 85 mL/min/1.73sq m Chronic Kidney Disease: <60 mL/min/1.73sq m Kidney failure: <15 mL/min/1.73sq m eGFR calculated using average adult body mass. Additional eGFR calculator available at: http://www.Phizzbo/multiple_crcl_2012.htm GFR/1.73 sq M predicted among non-blacks MDRD (S/P/Bld) [Vol rate/Area] NOT REPORTED [place] Glucose [Mass/Vol] 153 mg/dL High 70 - 99 mg/dL [place] Interpretation and review of laboratory results Abnormal [place] Potassium [Moles/Vol] 4.4 mmol/L 3.7 - 5.3 mmol/L [place] Protein [Mass/Vol] 6.0 g/dL Low 6.4 - 8.3 g/dL [place] Sodium [Moles/Vol] 143 mmol/L 135 - 144 mmol/L [place] Urea nitrogen [Mass/Vol] 21 mg/dL 8 - 23 mg/dL [place] Otheron 08-28-2019 Immature granulocytes (Bld) [#/Vol] NOT REPORTED 0 % [place] Basic Metabolic Panel w/ Ref alvin to MGon 08-26-2019 Anion gap [Moles/Vol] 10 mmol/L 9 - 17 mmol/L [place] Bun/Cre Ratio NOT [facility]PORTED [facility] [place] Calcium [Mass/Vol] 8.1 mg/dL Low 8.6 - 10. 4 mg/dL [place] Chloride [Moles/Vol] 104 mmol/L 98 - 10 7 mmol/L [place] CO2 [Moles/Vol] 26 mmol/L 20 - 31 mmol/L [place] Creatinine [Mass/Vol] 0.78 mg/dL 0.5 - 0.9 mg/dL [place] GFR >60 >60 mL/min [place] GFR Non- >60 >60 mL/min [place] GFR/1.73 sq M predicted among non-blacks MDRD (S/P/Bld) [Vol rate/Area] [place] Comment on above: Average GFR for 60-6 9 years old: 85 mL/min/1.73sq m Chronic Kidney Disease: <60 mL/min/1.73sq m Kidney failure: <15 mL/min/1.73sq m eGFR calculated using average adult body mass. Additional eGFR calculator available at: http://www.Phizzbo/multiple_crcl_2012.htm GFR/1.73 sq M predicted among non-blacks MDRD (S/P/Bld) [Vol rate/Area] NOT REPORTED [place] Glucose [Mass/Vol] 179 mg/dL High 70 - 99 mg/dL [place] Interpretation and review of laboratory results Abnormal [place] Potassium [Moles/Vol] 5.0 mmol/L 3.7 - 5.3 mmol/L [place] Sodium [Moles/Vol] 140 mmol/L 135 - 144 mmol/L [place] Urea nitrogen [Mass/Vol] 20 mg/dL 8 - 23 mg/dL [place] CBCon 08-26-2019 Erythrocyte distribution width (RBC) [Ratio] 13.8 % 11.5 - 14.9 % [place] Hematocrit (Bld) [Volume fraction] 41.6 % 36 - 46 % [place] Hemoglobin (Bld) [Mass/Vol] 14.1 g/dL 12 - 16 g/dL [place] MCH (RBC) [Entitic mass] 31.3 pg 26 - 34 pg [place] MCHC (RBC) [Mass/Vol] 33.9 g/dL 31 - 3 7 g/dL [place] MCV (RBC) [Entitic vol] 92.3 fL 80 - 100 fL [place] Platelet mean volume (Bld) [Entitic vol] 6.9 fL 6 - 12 fL [place] Platelets (Bld) [#/Vol] 316 10*3/uL [place] RBC (Bld) [#/Vol] 4.51 10*6/uL 4 - 5.2 m/uL [place] WBC (Bld) [#/Vol] 6.9 10*3/uL [place] WBC (Bld) [#/Vol] NOT REPORTED per 100 WBC [place] EKG 12 Leadon 08-26-2019 Atrial Rate 133 BPM [place] P [place] 44 degrees [place] P-R Interval 128 ms [place] Q-T Interval 282 ms [place] QRS Duration 84 ms [place] QTc Calculation (Bazett) 419 ms [place] R [place] 51 degrees [place], [place] T [place] 16 degrees [place] Ventricular Rate 133 BPM [place] Sinus tachycardia Otherwise normal ECG No previous ECGs available [place] Jose Antonio, Mhpn Incoming E kg Results From [facility] - 08/26/2019 9:03 AM EST Sinus tachycardia Otherwise normal ECG No previous ECGs available [place] APTTon 08-25-2019 aPTT Coag (Bld) [Time] 30.1 s [place] Comment on above: IV Heparin Therapy Range: 62.0-94.0 Amylaseon 08-25-2019 Amylase [Catalytic activity/Vol] 37 U/L 28 - 100 U/L [place] Basic Metabolic Panel w/ Ref alvin to MGon 08-25-2019 Anion gap [Moles/Vol] 11 mmol/L 9 - 17 mmol/L [place] Bun/Cre Ratio NOT REPORTED [place], [place] Calcium [Mass/Vol] 8.6 mg/dL 8.6 - 10. 4 mg/dL [place] Chloride [Moles/Vol] 97 mmol/L Low 98 - 10 7 mmol/L [place] CO2 [Moles/Vol] 26 mmol/L 20 - 31 mmol/L [place] Creatinine [Mass/Vol] 0.81 mg/dL 0.5 - 0.9 mg/dL [place] GFR >60 >60 mL/min [place] GFR Non- >60 >60 mL/min [place] GFR/1.73 sq M predicted among non-blacks MDRD (S/P/Bld) [Vol rate/Area] NOT REPORTED [place] GFR/1.73 sq M predicted among non-blacks MDRD (S/P/Bld) [Vol rate/Area] [place] Comment on above: Average GFR for 60-6 9 years old: 85 mL/min/1.73sq m Chronic Kidney Disease: <60 mL/min/1.73sq m Kidney failure: <15 mL/min/1.73sq m eGFR calculated using average adult body mass. Additional eGFR calculator available at: http://www.Kingspoke.Upmann's/multiple_crcl_2012.htm Glucose [Mass/Vol] 121 mg/dL High 70 - 99 mg/dL [place] Potassium [Moles/Vol] 4.2 mmol/L 3.7 - 5.3 mmol/L [place] Sodium [Moles/Vol] 134 mmol/L Low 135 - 144 mmol/L [place] Urea nitrogen [Mass/Vol] 17 mg/dL 8 - 23 mg/dL [place] Brain Natriuretic Peptideon 08-25-2019 Natriuretic peptide B (Bld) [Mass/Vol] Pro-BNP Reference Range: [place] Comment on above: Rule Out: <300 [place] Zone: Age <50 300-450 Age 50-75 300-900 Age >75 300-1800 Usually represents mild to moderate HF but other cardiopulmonary causes cannot be ruled out. Rule In: Age <50 >450 Age 50-75 >900 Age >75 >1800 Natriuretic peptide B (Bld) [Mass/Vol] 42 pg/mL <300 [place] Comment on above: Pro-BNP results ridge ot be compared to BNP results. CBC Auto Differentialon Basophils (Bld) [#/Vol] 0.10 10*3/uL [place] Basophils/100 WBC (Bld) 1 % 0 - 2 % [place] Differential Type NOT REPORTED [place] Eosinophils (Bld) [#/Vol] 0.20 10*3/uL [place] Eosinophils/100 WBC (Bld) 2 % 0 - 4 % [place] Erythrocyte distribution width (RBC) [Ratio] 13.8 % 11.5 - 14.9 % [place] Hematocrit (Bld) [Volume fraction] 47.4 % High 36 - 46 % [place] Hemoglobin (Bld) [Mass/Vol] 15.7 g/dL 12 - 16 g/dL [place] Interpretation and review of laboratory results Abnormal [place] Lymphocytes (Bld) [#/Vol] 0.80 10*3/uL Low [place] Lymphocytes/100 WBC (Bld) 7 % Low 24 - 44 % [place] MCH (RBC) [Entitic mass] 30.6 pg 26 - 34 pg [place] MCHC (RBC) [Mass/Vol] 33.2 g/dL 31 - 3 7 g/dL [place] MCV (RBC) [Entitic vol] 92.0 fL 80 - 100 fL [place] Monocytes (Bld) [#/Vol] 0.50 10*3/uL [place] Monocytes/100 WBC (Bld) 4 % 1 - 7 % [place] Platelet mean volume (Bld) [Entitic vol] 7.2 fL 6 - 12 fL [place] Platelets (Bld) [#/Vol] NOT REPORTED [place] Platelets (Bld) [#/Vol] 363 10*3/uL [place] RBC (Bld) [#/Vol] 5.15 10*6/uL 4 - 5.2 m/uL [place] RBC morphology finding Nom (Bld) NOT REPORTED [place] Segmented neutrophils/100 WBC (Bld) 86 % High 36 - 66 % [place] Segs Absolute 10.40 High [place] WBC (Bld) [#/Vol] 12.0 10*3/uL [place] WBC (Bld) [#/Vol] NOT REPORTED per 100 WBC [place] WBC Morphology NOT REPORTED [place] Hepatic Function Panelon Albumin [Mass/Vol] 4 g/dL 3.5 - 5.2 g/dL [place] Albumin/Globulin [Mass ratio] NOT REPORTED [place] ALP [Catalytic activity/Vol] 67 U/L 35 - 104 U/L [place] ALT [Catalytic activity/Vol] 19 U/L 5 - 33 U/L [place] AST [Catalytic activity/Vol] 12 U/L <32 [place] Bilirubin Ql (U) 0.53 mg/dL 0.3 - 1.2 mg/dL [place] Bilirubin, Indirect 0.39 mg/dL 0 - 1 mg/dL [place] Bilirubin.direct [Mass/Vol] 0.14 mg/dL <0.31 [place] Globulin (S) [Mass/Vol] NOT REPORTED 1.5 - 3.8 g/dL [place] Protein [Mass/Vol] 7.4 g/dL 6.4 - 8.3 g/dL [place] Lipaseon 08-25-2019 Lipase [Catalytic activity/Vol] 12 U/L Low 13 - 60 U/L [place] Otheron 08-25-2019 Interpretation and review of laboratory results Abnormal [place] Immature granulocytes (Bld) [#/Vol] NOT REPORTED 0 % [place] Protime-INRon 08-25-2019 INR Coag (PPP) [Relative time] 1.1 {INR} [place] Comment on above: Non-therapeutic Range: INR = 0.9-1.2 Therapeutic Range: Moderate Anticoagulant Intensity: INR = 2.0-3.0 High Anticoagulant Intensity: INR = 2.5-3.5 PT Coag (PPP) [Time] 13.6 s [place] Rapid influenza A/B antigens on 08-25-2019 Direct Exam Negative [place] Direct Exam Positive Abnormal [place] Interpretation and review of laboratory results Abnormal [place] Special Requests NOT REPORTED [place] Specimen Description .NASOPHARYNGEAL SWAB [place] Troponinon 08-25-2019 Troponin I.cardiac [Mass/Vol] NOT REPORTED [place] Troponin T.cardiac [Mass/Vol] NOT REPORTED <0.03 ng/mL [place] Troponin, High Sensitivity 9 ng/L 0 - 14 ng/L [place] Comment on above: High Sensitivity Troponin values cannot be compared with other Troponin methodologies. Patients with high levels of Biotin oral intake (i.e >5mg/day) may have falsely decreased Troponin levels. Samples collected within 8 hours of biotin intake may require additional information for diagnosis. XR CHEST PORTABLEon 08-25-19 20 EXAMINATION: ONE XRA Y VIEW OF [...] diaphragm. No evidence of acute osseous abnormality. [place] Jose Antonio, Mhpn Incoming Radiant Results From [employer] - 08/25/2019 4:43 PM EST EXAMINATION: ONE [...] vascular congestion. Interstitial edema appears slightly improved. [place] Unchanged mild cardiomegaly and vascular congestion. Interstitial edema appears slightly improved. [place] Basic Metabolic Profon 08-10 Anion gap [Moles/Vol] 11 mmol/L 9 - 17 mmol/L [place] Bun/Cre Ratio NOT REPORTED [place] Calcium [Mass/Vol] 7.7 mg/dL Low 8.6 - 10. 4 mg/dL [place] Chloride [Moles/Vol] 101 mmol/L 98 - 10 7 mmol/L [place] CO2 [Moles/Vol] 28 mmol/L 20 - 31 mmol/L [place] Creatinine [Mass/Vol] 0.75 mg/dL 0.5 - 0.9 mg/dL [place] GFR >60 >60 mL/min [place] GFR Non- >60 >60 mL/min [place] GFR/1.73 sq M predicted among non-blacks MDRD (S/P/Bld) [Vol rate/Area] [place] Comment on above: Average GFR for 60-6 9 years old: 85 mL/min/1.73sq m Chronic Kidney Disease: <60 mL/min/1.73sq m Kidney failure: <15 mL/min/1.73sq m eGFR calculated using average adult body mass. Additional eGFR calculator available at: http://www.Phizzbo/multiple_crcl_2012.htm GFR/1.73 sq M predicted among non-blacks MDRD (S/P/Bld) [Vol rate/Area] NOT REPORTED [place] Glucose [Mass/Vol] 162 mg/dL High 70 - 99 mg/dL [place] Interpretation and review of laboratory results Abnormal [place] Potassium [Moles/Vol] 4.1 mmol/L 3.7 - 5.3 mmol/L [place] Sodium [Moles/Vol] 140 mmol/L 135 - 144 mmol/L [place] Urea nitrogen [Mass/Vol] 29 mg/dL High 8 - 23 mg/dL [place] CBCon 08-10-2019 Erythrocyte distribution width (RBC) [Ratio] 13.4 % 11.5 - 14.9 % [place] Hematocrit (Bld) [Volume fraction] 41.6 % 36 - 46 % [place] Hemoglobin (Bld) [Mass/Vol] 13.9 g/dL 12 - 16 g/dL [place] Interpretation and review of laboratory results Abnormal [place] MCH (RBC) [Entitic mass] 31.1 pg 26 - 34 pg [place] MCHC (RBC) [Mass/Vol] 33.4 g/dL 31 - 3 7 g/dL [place] MCV (RBC) [Entitic vol] 93.2 fL 80 - 100 fL [place] Platelet mean volume (Bld) [Entitic vol] 7.6 fL 6 - 12 fL [place] Platelets (Bld) [#/Vol] 326 10*3/uL [place] RBC (Bld) [#/Vol] 4.46 10*6/uL 4 - 5.2 m/uL [place] WBC (Bld) [#/Vol] NOT REPORTED per 100 WBC [place] WBC (Bld) [#/Vol] 13.2 10*3/uL [place] XR CHEST STANDARD (2 VW)on 0 [...] the costophrenic angles on the lateral view. [place] Jose Antonio, Mhpn Incoming Radiant Results From [employer] - 08/10/2019 9:50 AM EST EXAMINATION: TWO [...] radiographic follow-up is recommended to ensure clearance. [place] Cardiomegaly with mi ld vascular congestion noted concerning for mild interstitial pulmonary edema. This is new from the previous exam and continued radiographic follow-up is recommended to ensure clearance. [place] Basic Metabolic Profon 08-09 Anion gap [Moles/Vol] 11 mmol/L 9 - 17 mmol/L [place] Bun/Cre Ratio NOT REPORTED [facility] [place] Calcium [Mass/Vol] 7.6 mg/dL Low 8.6 - 10. 4 mg/dL [place] Chloride [Moles/Vol] 100 mmol/L 98 - 10 7 mmol/L [place] CO2 [Moles/Vol] 28 mmol/L 20 - 31 mmol/L [place] Creatinine [Mass/Vol] 0.86 mg/dL 0.5 - 0.9 mg/dL [place] GFR >60 >60 mL/min [place] GFR Non- >60 >60 mL/min [place] GFR/1.73 sq M predicted among non-blacks MDRD (S/P/Bld) [Vol rate/Area] NOT REPORTED [place] GFR/1.73 sq M predicted among non-blacks MDRD (S/P/Bld) [Vol rate/Area] [place] Comment on above: Average GFR for 60-6 9 years old: 85 mL/min/1.73sq m Chronic Kidney Disease: <60 mL/min/1.73sq m Kidney failure: <15 mL/min/1.73sq m eGFR calculated using average adult body mass. Additional eGFR calculator available at: http://www.Phizzbo/multiple_crcl_2011.htm Glucose [Mass/Vol] 140 mg/dL High 70 - 99 mg/dL [place] Interpretation and review of laboratory results Abnormal [place] Potassium [Moles/Vol] 4.5 mmol/L 3.7 - 5.3 mmol/L [place] Sodium [Moles/Vol] 139 mmol/L 135 - 144 mmol/L [place] Urea nitrogen [Mass/Vol] 29 mg/dL High 8 - 23 mg/dL [place] CBCon 08-09-2019 Erythrocyte distribution width (RBC) [Ratio] 13.6 % 11.5 - 14.9 % [place] Hematocrit (Bld) [Volume fraction] 40.1 % 36 - 46 % [place] Hemoglobin (Bld) [Mass/Vol] 13.5 g/dL 12 - 16 g/dL [place] Interpretation and review of laboratory results Abnormal [place] MCH (RBC) [Entitic mass] 31.2 pg 26 - 34 pg [place] MCHC (RBC) [Mass/Vol] 33.7 g/dL 31 - 3 7 g/dL [place] MCV (RBC) [Entitic vol] 92.6 fL 80 - 100 fL [place] Platelet mean volume (Bld) [Entitic vol] 7.3 fL 6 - 12 fL [place] Platelets (Bld) [#/Vol] 334 10*3/uL [place] RBC (Bld) [#/Vol] 4.34 10*6/uL 4 - 5.2 m/uL [place] WBC (Bld) [#/Vol] 15.9 10*3/uL [place] WBC (Bld) [#/Vol] NOT REPORTED per 100 WBC [place] Fungal stainon 08-09-2019 Direct Exam NO FUNGAL ELEMENTS SEEN [place] Special Requests NOT REPORTED [place] Specimen Description .BRONCHIAL WASHINGS [place] Otheron 08-09-2019 Direct Exam Positive Abnormal [place] Respiratory Cultureon 2019 Culture NORMAL RESPIRATORY CHERYL HEAVY GROWTH [place] Direct Exam FEW NEUTROPHILS Abnormal [place] Interpretation and review of laboratory results Abnormal [place] Special Requests NOT REPORTED [place] Specimen Description .BRONCHIAL WASHINGS [place] Surgical Pathologyon 020 Surgical Pathology Report [id number] [place] [address] SURGICAL PATHOLOGY REPORT Patient Name: CAMERON US MR#: [id number] Specimen #[id number] Final Diagnosis Parts A & B. Lungs, bronchial washings (cytology and cell block): - Adequate for evaluation. - Benign squamous cells and reactive bronchial epithelial cells with macrophages, mixed inflammation, and mucinous debris. - Negative for malignancy. Alin Valencia M.D. Electronically Signed Out [facility]08/09/2019 Clinical Information COPD; bronchoscopy Source: A: Bronchial washing, smears, cytospins, Thin Prep B: Bronchial washing, sediment Gross Description Specimen A : The specimen consists of 13.0 ml of pink, mucoid, cloudy fluid. Approximately 3 ml are sent to [facility] for ThinPrep. Two smears and two cytospin preparations are made. Specimen B : The entire specimen is centrifuged for cell block. The volume of sediment is 0.5 cc. It is submitted for cell block preparation. Microscopic Description Five cytology and two H&E cell block slides reviewed. Microscopic examination performed and supports the diagnostic impression. [place] Basic Metabolic Profon 08-08 Anion gap [Moles/Vol] 8 mmol/L Low 9 - 17 mmol/L [place] Bun/Cre Ratio NOT REPORTED [place], [place] Calcium [Mass/Vol] 8.0 mg/dL Low 8.6 - 10. 4 mg/dL [place] Chloride [Moles/Vol] 106 mmol/L 98 - 10 7 mmol/L [place] CO2 [Moles/Vol] 26 mmol/L 20 - 31 mmol/L [place] Creatinine [Mass/Vol] 0.75 mg/dL 0.5 - 0.9 mg/dL [place] GFR >60 >60 mL/min [place] GFR Non- >60 >60 mL/min [place] GFR/1.73 sq M predicted among non-blacks MDRD (S/P/Bld) [Vol rate/Area] NOT REPORTED [place] GFR/1.73 sq M predicted among non-blacks MDRD (S/P/Bld) [Vol rate/Area] [place] Comment on above: Average GFR for 60-6 9 years old: 85 mL/min/1.73sq m Chronic Kidney Disease: <60 mL/min/1.73sq m Kidney failure: <15 mL/min/1.73sq m eGFR calculated using average adult body mass. Additional eGFR calculator available at: http://www.K[employer]oke.Upmann's/multiple_crcl_2011.htm Glucose [Mass/Vol] 154 mg/dL High 70 - 99 mg/dL [place] Interpretation and review of laboratory results Abnormal [place] Potassium [Moles/Vol] 5.1 mmol/L 3.7 - 5.3 mmol/L [place] Sodium [Moles/Vol] 140 mmol/L 135 - 144 mmol/L [place] Urea nitrogen [Mass/Vol] 32 mg/dL High 8 - 23 mg/dL [place] Body fluid cell counton 07-23 Appearance, Fluid TURBID [facility] [place] Color, Fluid PALE YELLOW [place], [place] RBC, Fluid 294 /mm3 [place] Specimen type Nom (Spec) .BRONCHIAL WASHINGS [place] WBC, Fluid 113 /mm3 [place] CBCon 08-08-2019 Erythrocyte distribution width (RBC) [Ratio] 13.5 % 11.5 - 14.9 % [place] Hematocrit (Bld) [Volume fraction] 42.1 % 36 - 46 % [place] Hemoglobin (Bld) [Mass/Vol] 14.0 g/dL 12 - 16 g/dL [place] Interpretation and review of laboratory results Abnormal [place] MCH (RBC) [Entitic mass] 30.7 pg 26 - 34 pg [place] MCHC (RBC) [Mass/Vol] 33.2 g/dL 31 - 3 7 g/dL [place] MCV (RBC) [Entitic vol] 92.4 fL 80 - 100 fL [place] Platelet mean volume (Bld) [Entitic vol] 7.2 fL 6 - 12 fL [place] Platelets (Bld) [#/Vol] 355 10*3/uL [place] RBC (Bld) [#/Vol] 4.55 10*6/uL 4 - 5.2 m/uL [place] WBC (Bld) [#/Vol] 18.5 10*3/uL [place] WBC (Bld) [#/Vol] NOT REPORTED per 100 WBC [place] Differential, Body Fluidon 0 08-08-2019 Basos, Fluid 0 % [place] Eos, Fluid 7 % High 0 [place] Fluid Diff Comment TO BE REVIEWED BY PATHOLOGIST [place] Comment on above: Reviewed by patholog ist: Justin Chambers D.O. SLIDE REVIEWED. MACROPHAGES, NEUTROPHILS WITH RARE LYMPHOCYTES AND EOSINOPHIILS NOTED. Interpretation and review of laboratory results Abnormal [place] Lymphocytes, Body Fluid 7 % High 0 [place] Monocyte Count, Fluid 40 % High 0 [place] Neutrophil Count, Fluid 46 % High 0 [place] Other Cells, Fluid 0 % [place] Basic Metabolic Profon 08-07 Anion gap [Moles/Vol] 11 mmol/L 9 - 17 mmol/L [place] Bun/Cre Ratio NOT REPORTED [place], [place] Calcium [Mass/Vol] 8.1 mg/dL Low 8.6 - 10. 4 mg/dL [place] Chloride [Moles/Vol] 105 mmol/L 98 - 10 7 mmol/L [place] CO2 [Moles/Vol] 24 mmol/L 20 - 31 mmol/L [place] Creatinine [Mass/Vol] 0.93 mg/dL High 0.5 - 0.9 mg/dL [place] GFR >60 >60 mL/min [place] GFR Non- >60 >60 mL/min [place] GFR/1.73 sq M predicted among non-blacks MDRD (S/P/Bld) [Vol rate/Area] NOT REPORTED [place] GFR/1.73 sq M predicted among non-blacks MDRD (S/P/Bld) [Vol rate/Area] [place] Comment on above: Average GFR for 60-6 9 years old: 85 mL/min/1.73sq m Chronic Kidney Disease: <60 mL/min/1.73sq m Kidney failure: <15 mL/min/1.73sq m eGFR calculated using average adult body mass. Additional eGFR calculator available at: http://www.Phizzbo/multiple_crcl_2012.htm Glucose [Mass/Vol] 172 mg/dL High 70 - 99 mg/dL [place] Interpretation and review of laboratory results Abnormal [place] Potassium [Moles/Vol] 5.1 mmol/L 3.7 - 5.3 mmol/L [place] Sodium [Moles/Vol] 140 mmol/L 135 - 144 mmol/L [place] Urea nitrogen [Mass/Vol] 26 mg/dL High 8 - 23 mg/dL [place] CBCon 08-07-2019 Erythrocyte distribution width (RBC) [Ratio] 13.8 % 11.5 - 14.9 % [place] Hematocrit (Bld) [Volume fraction] 42.8 % 36 - 46 % [place] Hemoglobin (Bld) [Mass/Vol] 14.1 g/dL 12 - 16 g/dL [place] Interpretation and review of laboratory results Abnormal [place] MCH (RBC) [Entitic mass] 30.8 pg 26 - 34 pg [place] MCHC (RBC) [Mass/Vol] 33.0 g/dL 31 - 3 7 g/dL [place] MCV (RBC) [Entitic vol] 93.1 fL 80 - 100 fL [place] Platelet mean volume (Bld) [Entitic vol] 7.5 fL 6 - 12 fL [place] Platelets (Bld) [#/Vol] 367 10*3/uL [place] RBC (Bld) [#/Vol] 4.59 10*6/uL 4 - 5.2 m/uL [place] WBC (Bld) [#/Vol] 20.0 10*3/uL [place] WBC (Bld) [#/Vol] NOT REPORTED per 100 WBC [place] Basic Metabolic Profon 08-06 Anion gap [Moles/Vol] 10 mmol/L 9 - 17 mmol/L [place] Bun/Cre Ratio NOT REPORTED [place] Calcium [Mass/Vol] 8.2 mg/dL Low 8.6 - 10. 4 mg/dL [place] Chloride [Moles/Vol] 102 mmol/L 98 - 10 7 mmol/L [place] CO2 [Moles/Vol] 25 mmol/L 20 - 31 mmol/L [place] Creatinine [Mass/Vol] 0.75 mg/dL 0.5 - 0.9 mg/dL [place] GFR >60 >60 mL/min [place] GFR Non- >60 >60 mL/min [place] GFR/1.73 sq M predicted among non-blacks MDRD (S/P/Bld) [Vol rate/Area] [place] Comment on above: Average GFR for 60-6 9 years old: 85 mL/min/1.73sq m Chronic Kidney Disease: <60 mL/min/1.73sq m Kidney failure: <15 mL/min/1.73sq m eGFR calculated using average adult body mass. Additional eGFR calculator available at: http://www.Phizzbo/multiple_crcl_2012.htm GFR/1.73 sq M predicted among non-blacks MDRD (S/P/Bld) [Vol rate/Area] NOT REPORTED [place] Glucose [Mass/Vol] 166 mg/dL High 70 - 99 mg/dL [place] Interpretation and review of laboratory results Abnormal [place] Potassium [Moles/Vol] 4.1 mmol/L 3.7 - 5.3 mmol/L [place] Sodium [Moles/Vol] 137 mmol/L 135 - 144 mmol/L [place] Urea nitrogen [Mass/Vol] 21 mg/dL 8 - 23 mg/dL [place] CBCon 08-06-2019 Erythrocyte distribution width (RBC) [Ratio] 13.5 % 11.5 - 14.9 % [place] Hematocrit (Bld) [Volume fraction] 43.2 % 36 - 46 % [place] Hemoglobin (Bld) [Mass/Vol] 14.5 g/dL 12 - 16 g/dL [place] MCH (RBC) [Entitic mass] 31.1 pg 26 - 34 pg [place] MCHC (RBC) [Mass/Vol] 33.5 g/dL 31 - 3 7 g/dL [place] MCV (RBC) [Entitic vol] 92.7 fL 80 - 100 fL [place] Platelet mean volume (Bld) [Entitic vol] 7.2 fL 6 - 12 fL [place] Platelets (Bld) [#/Vol] 366 10*3/uL [place] RBC (Bld) [#/Vol] 4.66 10*6/uL 4 - 5.2 m/uL [place] WBC (Bld) [#/Vol] NOT REPORTED per 100 WBC [place] WBC (Bld) [#/Vol] 7.9 10*3/uL [place] Basic Metabolic Panelon 07-23 Anion gap [Moles/Vol] 14 mmol/L 9 - 17 mmol/L [place] Bun/Cre Ratio NOT REPORTED [place] Calcium [Mass/Vol] 8.6 mg/dL 8.6 - 10. 4 mg/dL [place] Chloride [Moles/Vol] 102 mmol/L 98 - 10 7 mmol/L [place] CO2 [Moles/Vol] 25 mmol/L 20 - 31 mmol/L [place] Creatinine [Mass/Vol] 0.85 mg/dL 0.5 - 0.9 mg/dL [place] GFR >60 >60 mL/min [place] GFR Non- >60 >60 mL/min [place] GFR/1.73 sq M predicted among non-blacks MDRD (S/P/Bld) [Vol rate/Area] [place] Comment on above: Average GFR for 60-6 9 years old: 85 mL/min/1.73sq m Chronic Kidney Disease: <60 mL/min/1.73sq m Kidney failure: <15 mL/min/1.73sq m eGFR calculated using average adult body mass. Additional eGFR calculator available at: http://www.Kingspoke.Upmann's/multiple_crcl_2012.htm GFR/1.73 sq M predicted among non-blacks MDRD (S/P/Bld) [Vol rate/Area] NOT REPORTED [place] Glucose [Mass/Vol] 97 mg/dL 70 - 99 mg/dL [place] Potassium [Moles/Vol] 4.5 mmol/L 3.7 - 5.3 mmol/L [place] Sodium [Moles/Vol] 141 mmol/L 135 - 144 mmol/L [place] Urea nitrogen [Mass/Vol] 19 mg/dL 8 - 23 mg/dL [place] CBC Auto Differentialon 07-23 Basophils (Bld) [#/Vol] 0.10 10*3/uL [place] Basophils/100 WBC (Bld) 1 % 0 - 2 % [place] Differential Type NOT REPORTED [place] Eosinophils (Bld) [#/Vol] 0.80 10*3/uL [place] Eosinophils/100 WBC (Bld) 9 % High 0 - 4 % [place] Erythrocyte distribution width (RBC) [Ratio] 13.2 % 11.5 - 14.9 % [place] Hematocrit (Bld) [Volume fraction] 46.8 % High 36 - 46 % [place] Hemoglobin (Bld) [Mass/Vol] 15.6 g/dL 12 - 16 g/dL [place] Interpretation and review of laboratory results Abnormal [place] Lymphocytes (Bld) [#/Vol] 2.70 10*3/uL [place] Lymphocytes/100 WBC (Bld) 30 % 24 - 44 % [place] MCH (RBC) [Entitic mass] 31.1 pg 26 - 34 pg [place] MCHC (RBC) [Mass/Vol] 33.4 g/dL 31 - 3 7 g/dL [place] MCV (RBC) [Entitic vol] 93.1 fL 80 - 100 fL [place] Monocytes (Bld) [#/Vol] 0.70 10*3/uL [place] Monocytes/100 WBC (Bld) 8 % High 1 - 7 % [place] Platelet mean volume (Bld) [Entitic vol] 7.0 fL 6 - 12 fL [place] Platelets (Bld) [#/Vol] NOT REPORTED [place] Platelets (Bld) [#/Vol] 396 10*3/uL [place] RBC (Bld) [#/Vol] 5.02 10*6/uL 4 - 5.2 m/uL [place] RBC morphology finding Nom (Bld) NOT REPORTED [place] Segmented neutrophils/100 WBC (Bld) 52 % 36 - 66 % [place] Segs Absolute 4.80 [place], [place] WBC (Bld) [#/Vol] NOT REPORTED per 100 WBC [place] WBC (Bld) [#/Vol] 9.2 10*3/uL [place] WBC Morphology NOT REPORTED [place], [place] D-Dimer, Quantitativeon 07-23 D-Dimer, Quant <0.27 [place] Comment on above: When combined with [...] 08-05-2019 Immature granulocytes (Bld) [#/Vol] NOT REPORTED [facility] [place] Procalcitoninon 08-05-2019 Procalcitonin 0.06 ng/mL <0.09 [facility] [place] Comment on above: Suspected Sepsis: 0.09-0.49 ng/mL [...] entered into the Change in Procalcitonin Calculator (www.ajenyq-vlh-zyzessdzyt.Upmann's) to determine the patient's Mortality Risk Prognosis XR CHEST PORTABLEon 08-05-19 20 Jose Antonio, pn Incoming Radiant Results From [employer] - 08/05/2019 3:07 PM EST EXAMINATION: ONE [...] identified. IMPRESSION: No acute airspace disease identified. [facility] ONE XRA Y VIEW OF THE CHEST 08/05/2019 2:02 pm COMPARISON: None. HISTORY: ORDERING SYSTEM PROVIDED HISTORY: Chest Pain TECHNOLOGIST PROVIDED HISTORY: Chest Pain Reason for Exam: CHEST PAIN Acuity: Unknown Type of Exam: Unknown FINDINGS: Mild cardiac silhouette enlargement. Generalized interstitial prominence without consolidation, pneumothorax or evidence for edema. No effusion. No acute osseous abnormality identified. [place] No acute airspace disease identified. [place] Glucose, Fastingon 9 Glucose [Mass/Vol] 93 mg/dL Normal 70-99 [facility] Comment on above: Performed By: #### G JOSE, LIPRF, TSH #### [facility] [employer] [address] [place] [address] [phone] Canvas Cutter: Beau Troncoso MD Glucose [Mass/Vol] 93 mg/dL 70 - 99 mg/dL [place] Lipid Prof, Fastingon 2018 Cholesterol [Mass/Vol] 275 mg/dL High <200 [facility] Comment on above: Result Comment: Cholesterol Guidelines: <200 Desirable 200-240 Borderline >240 Undesirable Performed By: #### G JOSE LIPRF, TSH #### [facility] [employer] [address] [place] [address] [phone] Canvas Cutter: Beau Troncoso MD Cholesterol in HDL [Mass/Vol] 48 mg/dL Normal >40 [facility] Comment on above: Result Comment: HDL Guidelines: <40 Undesirable 40-59 Borderline >59 Desirable Performed By: #### G JOSE LIPRF, TSH #### [facility] [employer] [address] [place] [address] [phone] Canvas Cutter: Beau Troncoso MD Cholesterol in LDL [Mass/Vol] 196 mg/dL High 0-130 [facility] Comment on above: Result Comment: LDL Guidelines: <100 Desirable 100-129 Near to/above Desirable 130-159 Borderline >159 Undesirable Direct (measured) LDL and calculated LDL are not interchangeable tests. Performed By: #### G OJSE, LIPRF, TSH #### [facility] [address] [place] [address] [phone] Canvas Cutter: Beau Troncoso MD Cholesterol.total/Chol esterol in HDL [Mass ratio] 5.7 {ratio} High <5 [facility] Comment on above: Performed By: #### G JOSE, LIPRF, TSH #### [facility] [address] [place], [place] [phone] Canvas Cutter: Beau Troncoso MD Triglyceride,Fasting 153 mg/dL High <150 [facility] Comment on above: Result Comment: Triglyceride Guidelines: <150 Desirable 150-199 Borderline 200-499 High >499 Very high Based on AHA Guidelines for fasting triglyceride, March 2012. Performed By: #### G LURosette, LIPRF, TSH #### [facility] [address] [place], [place] [phone] Canvas Cutter: Beau Troncoso MD Cholesterol in VLDL [Mass/Vol] NOT REPORTED Normal 1-30 [facility] Comment on above: Performed By: #### G JOSE LIPRF, TSH #### [facility] [address] [place] [address] [id number] Canvas Cutter: Beau Troncoso MD Lipid, Fastingon 05-11-2019 Cholesterol [Mass/Vol] 275 mg/dL High <200 [place] Comment on above: Cholesterol Guidelines: <200 Desirable 200-240 Borderline >240 Undesirable Cholesterol in HDL [Mass/Vol] 48 mg/dL >40 [place] Comment on above: HDL Guidelines: <40 Undesirable 40-59 Borderline >59 Desirable Cholesterol in LDL [Mass/Vol] 196 mg/dL High 0 - 130 mg/dL [place] Comment on above: LDL Guidelines: <100 Desirable 100-129 Near to/above Desirable 130-159 Borderline >159 Undesirable Direct (measured) LDL and calculated LDL are not interchangeable tests. Cholesterol in VLDL [Mass/Vol] NOT REPORTED High 1 - 30 mg/dL [place] Cholesterol.total/Chol esterol in HDL [Mass ratio] 5.7 {ratio} High <5 [place] Interpretation and review of laboratory results Abnormal [place] Triglyceride, Fasting 153 mg/dL High <150 [place] Comment on above: Triglyceride Guidelines: <150 Desirable 150-199 Borderline 200-499 High >499 Very high Based on AHA Guidelines for fasting triglyceride, March 2012. TSHon 05-11-2019 Interpretation and review of laboratory results Abnormal [facility], [place] TSH Qn 25.72 m[IU]/L High [facility], [place] Thyroid Stim. Horm.on 2018 TSH Qn 25.72 m[IU]/L High 0.30-5.00 [facility] Comment on above: Performed By: #### G LUF, LIPRF, TSH #### [facility] [address] [place], [place] [phone] Canvas Cutter: Beau Troncoso MD Vital Signs Date Time Vital Sign Value Performing Clinician Facility 07-30-2023 10:47-0500 Body height 172.7 cm [email or web address] DO Work Phone: [facility] [employer] [facility] 07-30-2023 10:47-0500 Body mass index (BMI) [Ratio] 36.74 kg/m2 Louie GigsTime DO Work Phone: [facility] [employer] [facility] 07-30-2023 10:47-0500 Body temperature 98.1 [degF] Louie GigsTime DO [facility] 07-30-2023 10:47-0500 Body weight 109.59 kg Louie [employer] DO Work Phone: [facility] [employer] [facility] 07-30-2023 10:47-0500 Diastolic blood pressure 80 mm[Hg] Louie [employer] DO Work Phone: [facility] [employer] [facility] 07-30-2023 10:47-0500 Heart rate 89 /min Louie [employer] DO Work Phone: [facility] 07-30-2023 10:47-0500 SaO2% (BldA) [Mass fraction] 95 % Louie [employer] DO Work Phone: [facility] [employer] [facility] 07-30-2023 10:47-0500 Systolic blood pressure 130 mm[Hg] [email or web address] DO Work Phone: [facility] [employer] [facility] 11-22-2020 12:40-0400 Respiratory rate 29 /min Heena John MD [employer] Phone: 11-22-2020 12:40-0400 SaO2% (BldA) [Mass fraction] 100 % Heena John MD [employer] Phone: 11-22-2020 12:30-0400 Diastolic blood pressure 58 mm[Hg] Heena John MD [employer] Phone: 11-22-2020 12:30-0400 Heart rate 85 /min Heena John MD [employer] Phone: 11-22-2020 12:30-0400 Systolic blood pressure 108 mm[Hg] Heena John MD [employer] Phone: 11-22-2020 12:09-0400 Body height 175.3 cm Heena John MD [employer] Phone: 11-22-2020 12:09-0400 Body mass index (BMI) [Ratio] 33.97 kg/m2 Heena John MD [employer] Phone: 11-22-2020 12:09-0400 Body temperature 97.3 [degF] Heena John MD [employer] Phone: 11-22-2020 12:09-0400 Body weight 104.33 kg Heena John MD [employer] Phone: 11-02-2019 13:15-0400 BP Diastolic 61 mm[Hg] [place] [employer] , [place] 11-02-2019 13:15-0400 BP Systolic 118 mm[Hg] [employer] [place] , [place] 11-02-2019 13:15-0400 Pulse (Heart Rate) 87 /min [place] [email or web address] [place] 11-02-2019 13:15-0400 Pulse Oximetry 97 % [place] [email or web address] [place] 11-02-2019 13:15-0400 Respiratory Rate 17 /min Warren [email or web address] [facility], [place] 11-02-2019 10:12-0400 BMI (Body Mass Index) 29.53 kg/m2 [facility], [place] 11-02-2019 10:12-0400 Body Temperature 98.91 [degF] [facility] [place] 11-02-2019 10:12-0400 Body weight 90.72 kg Warren [facility] , [place] 10-08-2019 11:51-0400 Pulse Oximetry 98 % [facility] , [place] 10-08-2019 11:51-0400 Respiratory Rate 12 /min [facility], [place] 10-08-2019 08:42-0400 Body Temperature 98.1 [degF] [facility] [place] 10-08-2019 08:42-0400 BP Diastolic 70 mm[Hg] [facility] , [place] 10-08-2019 08:42-0400 BP Systolic 137 mm[Hg] [facility] , [place] 10-08-2019 08:42-0400 Pulse (Heart Rate) 99 /min [facility], [place] 10-08-2019 06:30-0400 BMI (Body Mass Index) 32.43 kg/m2 [facility], [place] 10-08-2019 06:30-0400 Body weight 99.6 kg [facility] , [place] 10-05-2019 18:01-0400 Height 175.3 cm [facility] , [place] 09-15-2019 18:31-0400 Body Temperature 98.91 [degF] [facility], [place] 09-15-2019 18:31-0400 BP Diastolic 63 mm[Hg] [facility] , [place] 09-15-2019 18:31-0400 BP Systolic 133 mm[Hg] [facility] , [place] 09-15-2019 18:31-0400 Pulse (Heart Rate) 101 /min [facility], [place] 09-15-2019 18:31-0400 Pulse Oximetry 93 % [facility] [place] , [place] 09-15-2019 18:31-0400 Respiratory Rate 18 /min [facility] [place] 09-15-2019 17:26-0400 BMI (Body Mass Index) 32.19 kg/m2 Levy Holm [facility], [place] 09-15-2019 17:26-0400 Body weight 98.88 kg Levy [facility] , [place] 08-29-2019 15:11-0400 Pulse Oximetry 95 % Jacob [facility] , [place] 08-29-2019 14:42-0400 Body Temperature 98.29 [degF] [facility] [place] [place] 08-29-2019 14:42-0400 BP Diastolic 65 mm[Hg] [facility] , [place] 08-29-2019 14:42-0400 BP Systolic 133 mm[Hg] [facility] , [place] 08-29-2019 14:42-0400 Pulse (Heart Rate) 84 /min [facility], [place] 08-29-2019 14:42-0400 Respiratory Rate 16 /min Jacob [facility] , [place] 08-29-2019 06:34-0400 BMI (Body Mass Index) 32.17 kg/m2 Jacob Granado [facility], [place] 08-29-2019 06:34-0400 Body weight 98.8 kg [facility] [place] 08-25-2019 15:11-0500 Height 175.3 cm [facility] [place] 08-10-2019 14:26-0500 Body Temperature 97.2 [degF] Heena John [facility], [place] 08-10-2019 14:26-0500 BP Diastolic 81 mm[Hg] Heena John [facility] [place] , [place] 08-10-2019 14:26-0500 BP Systolic 159 mm[Hg] Heena John [facility] [place] , [place] 08-10-2019 14:26-0500 Pulse (Heart Rate) 86 /min Heena John [facility], [place] 08-10-2019 14:26-0500 Pulse Oximetry 94 % Heena John [facility] , [place] 08-10-2019 14:26-0500 Respiratory Rate 16 /min Heena Holm [facility], [place] 08-07-2019 06:00-0500 BMI (Body Mass Index) 31.58 kg/m2 Heena Holm [facility], [place] 08-07-2019 06:00-0500 Body weight [address] [facility] , [place] 08-05-2019 16:57-0500 Height 175.3 cm Heena John [facility] , [place] Encounters Encounter Date Encounter Type Care Provider Facility Start: 08-25-2023 [facility]phone [facility] Start: 08-10-2023 End: 08-11-2023 ambulatory Belle Monet MD Facility: Dat Start: 08-03-2023 End: 08-04-2023 ambulatory Belle Monet MD Facility: Dat Start: 07-30-2023 End: 07-30-2023 ambulatory LOUIE PAUL [facility] Start: 07-30-2023 End: 07-30-2023 Office outpatient visit 25 minutes Louie Paul DO Work Phone: [facility] Internal Medicine - Family Medicine Comment on above: Chronic obstructive pulmonary disease, unspecified COPD type ([facility]) (Primary Dx); Right-sided low back pain without sciatica, unspecified chronicity; Postoperative hypothyroidism; Obstructive sleep apnea Start: 07-19-2023 Refill Louie villa DO Work Phone: [facility] Comment on above: Acute exacerbation o f chronic obstructive pulmonary disease (COPD) ([facility]) Start: 07-14-2023 Refill Louie villa DO Work Phone: [facility] Internal Medicine - Family Medicine Comment [...] End: 11-22-2020 Emergency department patient visit CADEN Muhammad [facility] Start: 11-22-2020 End: 11-22-2020 Emergency department patient visit Heena John MD [facility] Comment on above: COPD exacerbation (H CC) (Primary Dx) Start: 04-18-2020 End: 04-21-2020 ambulatory [facility] Start: 04-16-2020 End: 04-17-2020 Patient encounter procedure [facility] Start: 04-16-2020 End: 04-16-2020 Subsequent hospital visit by physician Caden PATEL [place] [facility] Comment on above: Dizziness; Polydipsia Start: 03-23-2020 End: 03-26-2020 ambulatory ENESI O OCRA [facility] Start: 03-23-2020 End: 03-25-2020 Subsequent hospital visit by physician [facility] Mri Rm 119 [facility] [place] [facility] Comment on above: Osteoarthritis of ri t acromioclavicular joint Start: 11-02-2019 End: 11-02-2019 Emergency department patient visit Warren Olivas Work Phone: [facility] ED Comment on above: COPD exacerbation (H CC) (Primary Dx) Start: 10-05-2019 End: 10-08-2019 Evaluation and management of inpatient Forest Childs Work Phone: [facility] Comment on above: COPD exacerbation (H CC) (Primary Dx); Acute respiratory failure with hypoxia (HCC) Start: 09-15-2019 End: 09-15-2019 Emergency department patient visit Levy Felix Work Phone: [facility] ED Comment on above: Cough (Primary Dx); Abnormal CXR; Viral URI Start: 08-25-2019 End: 08-29-2019 Evaluation and management of inpatient Jacob Granado Work Phone: [facility] Med Surg Comment on above: COPD exacerbation (H CC) (Primary Dx); Influenza with respiratory manifestation other than pneumonia; COPD with acute exacerbation (HCC) Start: 08-05-2019 End: 08-10-2019 Evaluation and management of inpatient Heena Strauss Alvaro [facility] Comment on above: COPD exacerbation (H CC) (Primary Dx); Cough; Moderate persistent asthma with acute exacerbation Start: 05-11-2019 End: 05-12-2019 Patient encounter procedure NAJMA KEN [facility] Start: 05-11-2019 End: 05-11-2019 Subsequent hospital visit by physician Najma ALVAREZ [facility] Comment on above: Encounter for screen ing for diabetes mellitus; Screening for hyperlipidemia Procedures Date Procedure Procedure Detail Performing Clinician Start: 07-30-2023 Adult depression scr eening assessment Papirus DO Work Phone: Start: 05-11-2023 Adult depression scr eening assessment Papirus DO Work Phone: Start: 11-22-2020 Radiologic exam ches t single view Heena John MD Start: 11-22-2020 Basic metabolic pane l calcium total Heena John MD Start: 11-22-2020 COVID-19, RAPID Heena John MD Start: 04-18-2020 Ct head/brain w/o co ntrast material HARRISONVASUZETTE KEN Start: 04-16-2020 Assay of thyroid stimulating hormone tsh NAJMA KEN Start: 04-16-2020 Blood count complete automated HARRISONVAPRAD JESUS MANUEL Start: 04-16-2020 Comprehensive metabo lic panel HARRISONVAPRASONI KEN Start: 04-16-2020 Hemoglobin glycosylated a1c NAJMA KEN Start: 04-16-2020 Assay of thyroid stimulating hormone tsh Najma Ken Work Phone: Start: 04-16-2020 Blood count complete automated Najma Ken Work Phone: Start: 04-16-2020 Comprehensive metabo lic panel Najma Ken Work Phone: Start: 04-16-2020 Hemoglobin glycosylated a1c Ferd Michelle Ken Work Phone: Start: 03-23-2020 Mri any jt upper ext remity w/o contrast matrl SHIVAPRAD JESUS MANUEL Start: 03-23-2020 Mri any jt upper ext remity w/o contrast matrl Enesi O Cora Work Phone: Start: 11-02-2019 Assay of troponin quantitative Warren Olivas Work Phone: Start: 11-02-2019 Ecg routine ecg w/le ast 12 lds w/i&r Warren Rohityenypilar Work Phone: Start: 11-02-2019 Radiologic exam ches t single view Warren Olivas Work Phone: Start: 11-02-2019 Assay of lactate Warren Olivas Work Phone: Start: 11-02-2019 Assay of troponin quantitative Warren Olivas Work Phone: Start: 11-02-2019 Blood count complete auto&auto difrntl wbc Warren Olivas Work Phone: Start: 11-02-2019 C-reactive protein Anton pereira Rohitkobe Work Phone: Start: 11-02-2019 Comprehensive metabo lic panel Warren Olivas Work Phone: Start: 11-02-2019 Fibrin dgradj produc ts d-dimer quantitative Wraren Olivas Work Phone: Start: 11-02-2019 Lactate dehydrogenase [...] REFLEX TO MG FOR LOW K Jacob Strauss Vannesa Work Phone: Start: 08-25-2019 Blood count complete auto&auto difrntl wbc Jacob Granado Work Phone: Start: 08-25-2019 Hepatic function panel Jacob Granado Work Phone: Start: 08-25-2019 Iaadiadoo influenza Fuado jose alberto Granado Work Phone: Start: 08-25-2019 Natriuretic peptide Fuado jose alberto Granado Work Phone: Start: 08-25-2019 Prothrombin time Jacob Strauss Vannesa Work Phone: Start: 08-25-2019 Thromboplastin time partial plasma/whole blood Jacob Carlos A Vannesa Work Phone: Start: 08-25-2019 Ecg routine ecg w/le ast 12 lds i&r only Jacob Strauss V[employer] Work Phone: Start: 08-25-2019 EKG REPORT Hpf Scanni ng Start: 08-10-2019 Radiologic exam ches t 2 views Caden Baldwin Work Phone: Start: 08-10-2019 Basic metabolic pane [...] Baldwin Work Phone: Start: 08-08-2019 SURGICAL PATHOLOGY Kuldeep Childs Work Phone: Start: 08-08-2019 Virus centrifuge [...] 05-11-2019 Assay of thyroid stimulating hormone tsh PlumbeeVAPRAD JESUS MANUEL Start: 05-11-[address] gtt 3 specimens SHIVAPRASAD JESUS MANUEL Start: 05-11-2019 Lipid panel SHIVAPRASA D JESUS MANUEL Start: 05-11-2019 Assay of thyroid stimulating hormone tsh Kabongod [employer] Work Phone: Start: 05-11-[address] gtt 3 specimens Sanradvaprasad [facility] [employer] Work Phone: Start: 05-11-2019 Lipid panel Sanradvaprasa d K [employer] Work Phone: Plan of Treatment Date Care Activity Detail Author Start: 08-31-2025 COVID-19 Vaccine (1) COVID-19 Vaccin e (1) [facility] Phone: Comment on above: Postponed from 03/05 (Patient Refused) Start: 08-31-2025 Influenza vaccination Flu vacc ine (Season Ended) [facility] Phone: Comment on above: Postponed from 02/20 (Patient Refused) Start: 08-08-2024 Pneumococcal 0-64 ye ars Vaccine (2 of 2) Pneumococcal 0-64 years Vaccine (2 of 2) [facility] Phone: Start: 07-30-2024 Adult BMI Screening [facility] Start: 07-30-2024 Depression Screening Depression Scre [facility] Start: 07-30-2024 Tobacco Screening Tobacco Screening [facility] Start: 05-11-2024 Adult BMI Screening Adult BMI Screen [facility] Start: 05-11-2024 Depression Screening Depression Scre [facility] Start: 05-11-2024 Lipid panel Lipid screen [facility] [place], [place] Start: 05-11-2024 Lipid screen Lipid screen [place], [place] Start: 05-11-2024 Tobacco Screening Tobacco Screening [facility] Start: 12-22-2023 End: 12-22-2023 Patient encounter procedure 12/22/2023 1:30 PM EDT Office Visit [facility] [address] [address] Celia Calhoun MD [address] [address] [facility] Start: 12-12-2023 Tobacco Counseling Tobacco Counselin g [facility] Start: 09-20-2023 Influenza vaccination Influenza Vacc ine [facility] Comment on above: Postponed from 02/20 (Patient Refused) Start: 08-26-2023 End: 08-26-2023 Patient encounter procedure 08/26/2023 11:45 AM EST Office Visit [facility] [address] [place] [address] Sarah Fernández, FIBERGLASS ROVING WINDER-SKIDDER OPERATOR [address] [place] [address], [address] [address] [facility] Start: 08-12-2023 Adult BMI Follow Up Plan Adult BMI Follow Up Plan [facility] Start: 05-11-2022 Diabetes screen Diabetes screen [place], [place] Start: 10-17-2021 Shingles Vaccine (1 of 2) Shingles Vaccine (1 of 2) [facility] Phone: Comment on above: Postponed from 03/05 (Patient Refused) Start: 04-16-2021 Hemoglobin A1c measurement A1C test (Diabetic or Prediabetic) [facility] Phone: Start: 04-16-2021 Thyroid stimulating hormone measurement [facility]SH testing [facility] Phone: Start: 12-24-2020 DTaP/Tdap/Td vaccine (1 - Tdap) DTaP/Tdap/Td vaccine (1 - Tdap) [facility] Work Phone: Comment on above: Postponed from 03/05 (Patient Refused) Start: 10-05-2020 TSH Qn TSH testing [place], [place] Start: 10-05-2020 TSH testing TSH [place] Start: 05-11-2020 TSH testing TSH testing [place] Start: 05-10-2020 End: 05-10-2020 Office Visit 05/10/2020 Office Visit Primary Care Najma Ken MD [address] [place] [id number] [facility] Start: 05-05-2020 DTaP/Tdap/Td vaccine (1 - Tdap) DTaP/Tdap/Td vaccine (1 - Tdap) [place] Comment on above: Postponed from 03/05 (Patient Refused) Postponed from 03/05 (Patient Refused) Start: 05-05-2020 Hepatitis C screen Hepatitis C scree n [place] Comment on above: Postponed from 03/05 (Patient Refused) Start: 05-05-2020 Hepatitis C screening Hepatitis C sc reen [place] Comment on above: Postponed from 03/05 (Patient Refused) Start: 05-05-2020 HIV screen HIV screen [place] Comment on above: Postponed from 03/05 (Patient Refused) Start: 05-05-2020 HIV screening HIV screen [place], [place] Comment on above: Postponed from 03/05 (Patient Refused) Start: 04-18-2020 End: 04-18-2020 Appointment 04/18/2020 Appointment Radiology [facility] [place] CT Scan Start: 02-21-2020 Influenza vaccination [place], [place] Start: 08-04-2019 End: 08-04-2019 Office Visit 08/04/2019 Office Visit Primary Care Najma Ken MD [address] [place] [address] [phone] [facility] Start: 02-20-2019 Influenza vaccination Flu vaccine (# 1) [place], [place] Start: [address] lung screening Low dose CT lung screening [place] Start: 2009 Administration of varicella zoster vaccine Zoster (Shingles) Vaccine (1 of 2) [facility] Start: 2009 Breast cancer screen Breast cancer s creen [place] Start: 2009 Colon cancer screen colonoscopy Colon cancer screen colonoscopy [place] Start: 2009 Screening for malign ant neoplasm of breast Breast cancer screen [place] Start: 2009 Screening for malign ant neoplasm of colon Colon cancer screen colonoscopy [place] Start: 2009 Shingles Vaccine (1 of 2) Shingles Vaccine (1 of 2) [place] Start: 1999 Diabetes screen Diabetes screen [place], [place] Start: 1999 Lipid screen Lipid screen [place], [place] Start: 1978 DTaP,Tdap and Td Vaccines (1 - Tdap) DTaP,Tdap and Td Vaccines (1 - Tdap) [facility] Start: 1965 Pneumococcal 0-64 ye ars Vaccine (1 of 1 - PPSV23) Pneumococcal 0-64 years Vaccine (1 of 1 - PPSV23) [place] Start: 1959 TSH testing TSH testing [place], [place] Acapella Acapella Respira tory Care Routine Daily until discontinued starting 08/06/2019 [place] Comment on above: Daily until disconti nued starting 08/06/2019 AFB Stain [facility] [place] Comment on above: Release Upon Orderin g for 1 Occurrences starting 10/06/2019 ONE TIME for 1 Occur rences starting 08/08/2019 Basic Metabolic Prof Basic Metab olic Prof Lab Routine Daily until discontinued starting 08/06/2019, 5 completed [place] Comment on above: Daily until disconti nued starting 08/06/2019, 5 completed Body fluid cell count [facility], [place] Comment on above: Release Upon Orderin g for 1 Occurrences starting 10/06/2019 ONE TIME for 1 Occur rences starting 08/08/2019 CBC CBC Lab Routine Daily until discontinued starting 08/06/2019, 5 completed [facility], [place] Comment on above: Daily until disconti nued starting 08/06/2019, 5 completed End: 09-01-2019 CBC auto differential CBC auto differential Lab Routine Daily for 5 Occurrences starting 08/28/2019 until 09/01/2019, 2 completed [facility] Comment on above: Daily for 5 Occurren kisha starting 08/28/2019 until 09/01/2019, 2 completed End: 09-01-2019 Comprehensive Metabolic Panel w/ Reflex to MG Comprehensive Metabolic Panel w/ Reflex to MG Lab Routine Daily for 5 Occurrences starting 08/28/2019 until 09/01/2019, 2 completed [facility] Comment on above: Daily for 5 Occurren kisha starting 08/28/2019 until 09/01/2019, 2 completed Culture with Smear, Acid Fast Bacillius [facility], [place] Comment on above: Release Upon Orderin g for 1 Occurrences starting 10/06/2019 ONE TIME for 1 Occur rences starting 08/08/2019 Culture, Fungus [facility] [place] Comment on above: Release Upon Orderin g for 1 Occurrences starting 10/06/2019 ONE TIME for 1 Occur rences starting 08/08/2019 End: 10-06-2019 Culture, Fungus Culture, Fungus Microbiology Routine Once for 1 Occurrences starting 10/06/2019 until 10/06/2019 [facility], [place] Comment on above: Once for 1 Occurrenc es starting 10/06/2019 until 10/06/2019 Culture, Legionella [facility] Comment on above: Release Upon Orderin g for 1 Occurrences starting 10/06/2019 End: 10-06-2019 Culture, Legionella Culture, Legionella Microbiology Routine Once for 1 Occurrences starting 10/06/2019 until 10/06/2019 [facility], [place] Comment on above: Once for 1 Occurrenc es starting 10/06/2019 until 10/06/2019 Culture, Respiratory [facility] Comment on above: Release Upon Orderin g for 1 Occurrences starting 10/06/2019 ONE TIME for 1 Occur rences starting 08/08/2019 Culture, Virus, Respiratory Culture, Virus, Respiratory Microbiology Routine Release Upon Ordering for 1 Occurrences starting 10/06/2019 [place] Comment on above: Release Upon Orderin g for 1 Occurrences starting 10/06/2019 Cytology, Non-Tape Recording Machine Operator Cytology, Non- Tape Recording Machine Operator Lab Routine ONE TIME for 1 Occurrences starting 08/08/2019 [place] Comment on above: ONE TIME for 1 Occur rences starting 08/08/2019 EKG 12 Lead EKG 12 Lead ECG STAT 11/02/2019 10:57 AM EDT [place] Fungal stain [facility], [place] Comment on above: Release Upon Orderin g for 1 Occurrences starting 10/06/2019 ONE TIME for 1 Occur rences starting 08/08/2019 End: 08-08-2019 Fungus Culture Fungus Culture Microbiology Routine Once for 1 Occurrences starting 08/08/2019 until 08/08/2019 [place] Comment on above: Once for 1 Occurrenc es starting 08/08/2019 until 08/08/2019 HHN Treatment [place] Comment on above: As Needed until disc [...] for 1 Occurrences starting 10/08/2019 until 10/08/2019 [place] Comment on above: One Time for 1 Occur rences starting 10/08/2019 until 10/08/2019 End: 08-09-2019 Home O2 eval (desaturation screen) Home O2 eval (desaturation screen) Respiratory Care Routine One Time for 1 Occurrences starting 08/09/2019 until 08/09/2019 [place] Comment on above: One Time for 1 Occur rences starting 08/09/2019 until 08/09/2019 Initiate Oxygen Ther apy Protocol [facility] Comment on above: Daily until disconti nued starting 08/25/2019 Daily until disconti nued starting 08/27/2019 Daily until disconti nued starting 11/02/2019 MetaNeb MetaNeb Respirat ory Care Routine 0600, 1000, 1400, 1800, 2200 until discontinued starting 08/09/2019 [facility] Comment on above: 0600, 1000, 1400, 18 00, 2200 until discontinued starting 08/09/2019 Microscopic observat ion Gram stain Nom (Unsp spec) [facility] [place] Comment on above: Release Upon Orderin g for 1 Occurrences starting 10/06/2019 ONE TIME for 1 Occur rences starting 08/08/2019 End: 08-25-2019 Pulse Oximetry Spot Check Pulse Oximetry Spot Check Respiratory Care Routine One Time for 1 Occurrences starting 08/25/2019 until 08/25/2019 [facility] Comment on above: One Time for 1 Occur rences starting 08/25/2019 until 08/25/2019 End: 08-27-2019 Pulse Oximetry Spot Check Pulse Oximetry Spot Check Respiratory Care Routine One Time for 1 Occurrences starting 08/27/2019 until 08/27/2019 [facility] Comment on above: One Time for 1 Occur rences starting 08/27/2019 until 08/27/2019 Pulse oximetry, overnight Pulse oximetry, overnight Respiratory Care Routine Every 4hr until discontinued starting 08/09/2019 [facility] Comment on above: Every 4hr until disc ontinued starting 08/09/2019 Respiratory Care Evaluation and Treat Respiratory Care Evaluation and Treat Respiratory Care Routine Daily until discontinued starting 10/05/2019 [facility] Comment on above: Daily until disconti nued starting 10/05/2019 Respiratory care evaluation only [facility] Comment on above: Daily until disconti nued starting 08/26/2019 Daily until disconti nued starting 11/23/2020 Immunizations Immunization Date Immunization Notes Care Provider Catherine howard 08-08-2019 pneumococcal vaccine , unspecified formulation Heena John [facility] 08-08-2019 pneumococcal polysaccharide vaccine, 23 valent [facility] NEGATED: Highlighted row has not occurred!08-10-2019 influenza, injectable, quadrivalent, preservative free Heena John [place] NEGATED: Highlighted row has not occurred!08-09-2019 influenza, injectable, quadrivalent, preservative free Heena John [place] NEGATED: Highlighted row has not occurred!08-08-2019 influenza, injectable, quadrivalent, preservative free Heena [place] Comment on above: Deferred: - Patient refused flu vaccine. Would not like the vaccine at all. Payers Date Payer Category Payer Unknown BCBS BC[place] - [place] P PO xxxxxxxxxxxx 2018-Present [address] [place] [address] xxxxxxxxxxxx [id number] 2016 Unknown [id number] 1959 Unknown [id number] .[id number] 1959 Unknown [id number] 1959 Unknown [id number] [id number] 1959 Unknown [id number] 2.16.840.1.783656.3.579.2.175 1959 Unknown [id number] 2.16.840.1.663838.3.579.2.176 1959 Unknown [id number] 2.16.840.1.622238.3.579.2.176 1959 Unknown [id number] 2.16.840.1.130768.3.579.2.176 1959 Unknown [id number] 2.16.840.1.074539.3.579.2.593 1959 Unknown [id number] 2.16.840.1.030637.3.579.2.593 1959 Unknown [id number] 2.16.840.1.418201.3.579.2.593 1959 Unknown [id number] 2.16.840.1.028262.3.579.2.593 1959 Unknown [id number] 2.16.840.1.288161.3.579.2.593 1959 Unknown [id number] 2.16.840.1.428171.3.579.2.593 1959 Unknown [id number] 2.16.840.1.130558.3.579.2.593 1959 Unknown [id number] 2.16.840.1.450006.3.579.2.128 6 1959 Unknown [id number] 2.16.840.1.515141.3.579.2.196 1959 Unknown [id number] [id number] Social History Date Type Detail Facility Start: 08-25-2019 End: 11-22-2020 Tobacco smoking status NHIS Former [place] Start: 08-25-2019 End: 08-02-2020 Cigarettes smoked current (pack per day) - Reported [facility] Start: 08-25-2019 End: 07-30-2023 Alcohol intake Current drinker of alcohol (finding) [place] Start: 08-08-2019 Tobacco Comment quit Jul 2019 [place] Start: 02-01-2019 Alcohol Comment OCCASIONALLY [place], [place] Start: 1960 Sex Assigned At Not on file M [place] Start: 02-20-2020 End: 04-06-2022 Tobacco use and exposure Never used [place] Start: 05-05-2019 End: 04-06-2022 Tobacco smoking status NHIS Current every day smoker [facility] Exposure to SARS-CoV -2 (event) Unable to assess [facility] [place], [place] End: 07-23-2019 History of tobacco use Current smoker [facility] Exposure to SARS-CoV -2 (event) Not sure [facility] History of tobacco use Cigarette Smoker [facility] Start: 08-02-2020 End: 05-11-2023 Tobacco use panel [facility] Adolescent depressio n screening assessment 0 [facility] Start: 02-25-2023 Alcohol Comment Occasionally [facility] Goals Date Patient Goal Desired Activity /State Personal health goal Comment on above: Formatting of this n ote might be different from the original. Evaluation of progress towards goal: safe transition from hospital to home with family support. Clinical Notes 07-14-2023 to 08-25-2023 Telephone Encounter - GORDON Brown - 08/25/2023 10:02 AM ESTTelephone Encounter - GORDON Brown - 08/25/2023 10:02 AM Tamie Paul DO - 07/30/2023 10:40 AM EST Note Date & Type Note Facility 08-25-2023 Miscellaneous Notes Formattin g of this note might be different from the original. 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 SK ordered labs at last visit, need to confirm with patient on if labs were completed or not. If not need to reschedule appointment. documented in this encounter [facility] 08-25-2023 Telephone encount er Note [employer]ter left voicemail for patient in regards to her appointment with tomorrow (08/26/2023). SK ordered labs at last visit, need to confirm with patient on if labs were completed or not. If not need to reschedule appointment. [facility] 07-30-2023 History of Presen t illness Narrative Images from the original note were not included. Subjective Patient ID: Cameron Us is a 63 y.o. female. Cameron presents for low back pain mostly on the right side. Pain radiates up back to neck area. She helped lift a safe at work at [employer] and felt sudden, intense pain that sent her to her knees. It was a [facility] case. This was when she was living in [place] in the mid to late . She [...] would also like a referral to an faro dealer for a second opinion. She is taking her supplement but still feels tired. They had a friend who had normal labs but the faro dealer did more labs and changed medications and [...] hypothyroidism - [facility] - [place], [place]; Future Refer to endocrinology for a second opinion Chronic obstructive pulmonary disease, unspecified COPD type ([facility]-HCC) Reviewed pulmonology consult with patient and . It was addressed at appointment and was doing ok. She needs to quit smoking. They also ordered labs but she hasn't gotten them done and didn't know she needed them. Encouraged to get labs. Obstructive sleep apnea She is not following treatment regimen. Recommended to follow recommendations. documented in this encounter [facility] 07-14-2023 Miscellaneous Notes Formattin g of this note might be different from the original. Rx sent in. Patient due recheck appointment LM on documented in this encounter [facility] 07-14-2023 Telephone encount er Note Rx sent in. Patient due recheck appointment [facility] [employer] 07-14-2023 Telephone encount er Note LM on VM [facility] Evaluation note Diagnosis COPD exacerbation (HCC)- Primary Obstructive chronic bronchitis with exacerbation documented in this encounter [facility] Phone: evaluation note* Diagnosis Chronic rhinitis documented in this encounter [facility] [employer] System[facility] note* Diagnosis Acute exacerbation of chronic obstructive pulmonary disease (COPD) ([facility]-HCC) Obstructive chronic bronchitis with exacerbation documented in this encounter [facility] [employer] System[facility] note* Diagnosis Chronic obstructive pulmonary disease, unspecified COPD type (CMS-HCC)- Primary Right-sided low back pain without sciatica, unspecified chronicity Postoperative hypothyroidism Postsurgical hypothyroidism Obstructive sleep apnea Obstructive sleep apnea (adult) (pediatric) [facility]* Attachments The following attachments cannot be sent through Care Everywhere. * COPD Exacerbation Plan (Nigerien) documented in this encounterNimia Phone: InstructionsNot on filedocumented in this encounter [facility] [employer] SystemInstructionsNot on filedocumented in this encounter [facility] [employer] SystemInstructionsNot on filedocumented in this encounter [facility]ructionsNot on filedocumented in this encounter [facility] Hospital[facility] for referral (narrative)* Consultation (Routine) - Pending Review Specialty Diagnoses / Procedures Referred By Emily horn Referred To Contact Endocrinology Diagnoses Postoperative hypothyroidism Louie Paul DO [address] [facility], [place] [address] Celia Calhoun MD [address] [address] Referral ID Status Reason Start Date Expiration Date Visits Requested Visits Authorized [id number] Pending Review Specialty Services Required 07/30/2023 07/29/2024 1 1 * Consultation (Routine) - Pending Review Specialty Diagnoses / Procedures Referred By Emily t Referred To Contact Pain Medicine Diagnoses Right-sided low back pain without sciatica, unspecified chronicity Louie Paul DO [address] [facility], [place] [address] [address] Referral ID Status Reason Start Date Expiration Date V isits Requested Visits Authorized [id number] Pending Review 07/30/2023 07/29/2024 1 1 [facility] [employer] [facility] History of Present Illness * Erin Ansari RN - 08/29/2019 7:38 PM EDT IV pulled by lazaro RN. Patient dc papers given. Patient dc'd with all belongings and scripts. * Nati Neves OT - 08/29/2019 12:48 PM EDT [facility] OCCUPATIONAL THERAPY MISSED TREATMENT NOTE [...] ABGs: No results for input(s): PHART, PO2ART, XPK2UTV, PCL3RWF, BEART, X6HPJJGE, TGA6AJY in the last 72 hours. PT/INR: No results found for: PTINR ASSESSMENT / PLAN: Copd exac - steroid, BD - to po meds Influenza - tamiflu Cough suppressants Okay for home from pulmonary standpoint Plan of care discussed with Dr Childs . REASON FOR VISIT: copd, influenza I examined the patient myself The assessment and Plan in the note per my discussion with PIN SETTER. . * Dalila Dash RN - 08/29/2019 [...] ABGs: No results for input(s): PHART, PO2ART, NRD9SJT, IHO8SFI, BEART, I7NCOAJG, NQS3DNE in the last 72 hours. PT/INR: No results found for: PTINR ASSESSMENT / PLAN: Copd exac - steroid, BD - to po meds Influenza - tamiflu Cough suppressants . * Magen Ruckeryoko Laurie, PT - 08/28/2019 12:11 PM EDT Physical Therapy Facility/Department: [facility] Initial Assessment NAME: [...] Ambulation Assistance: Independent Transfer Assistance: Independent Active Belt Notcher: Yes Mode of Transportation: Car Occupation: Retired [...] 08/28/2019 11:43 AM Name: Cameron Us Acct: [id number] Room: Day: 1 Admit Date: 08/25/2019 3:06 [...] file Gets together: Not on file Attends holiness service: Not on file Active member of [...] 0.85 (L) 1.0 - 4.8 k/uL Absolute [place] # 0.99 0.1 - 1.3 k/uL Absolute [...] ABGs: No results for input(s): PHART, PO2ART, YZW5BUW, LOB6BBX, BEART, G7ODKREG, IQZ1BJF in the last 72 hours. PT/INR: No results found for: PTINR ASSESSMENT / PLAN: Copd exac - steroid, BD Influenza - tamiflu Cough suppressants . * Fuentes Jiang MD - 08/27/2019 11:11 AM EST Progress Note 08/27/2019 11:11 AM Name: Cameron Us Acct: [id number] Room: Day: 1 Admit Date: 08/25/2019 3:06 [...] file Gets together: Not on file Attends holiness service: Not on file Active member of [...] ABGs: No results for input(s): PHART, PO2ART, FQH9ZGZ, PPY3KNL, BEART, I5PHWPTL, HNE5EYV in the last 72 hours. PT/INR: No [...] NKDA Other pertinent information: Medications confirmed with [facility]. Thank you, Amanda Ellison, PharmD, [facility] [phone] documented in this encounter* Joseph Butterfield [facility] - 10/08/2019 12:13 PM EDT Home Oxygen [...] 10/07/2019 4:04 PM Name: Cameron Us Acct: [id number] Room: Day: 1 Admit Date: 10/05/2019 2:31 [...] file Gets together: Not on file Attends holiness service: Not on file Active member of [...] Ht 5' 9 (1.753 m) Wt 215 lb13.3 oz (97.9 kg) SpO2 95% BMI 31.87 [...] ABGs: No results for input(s): PHART, PO2ART, AYV3WPT, YRB1UES, BEART, M3KVZKYW, SOV6BEP in the last 72 hours. PT/INR: No [...] in the note per my discussion with PIN SETTER. . * Wendy Parra, RN - 10/07/2019 12:23 AM EDT Pt. Stated my grandson came to the E.R., DrNorma Told him he probubly has cov. 19, he was not tested. Pt. Continued to say they gave him a paper on what to look for. Axminster Rug Setter updated Dr. Childs. No orders given for [...] up appointments. The pt refused for the keno writer / runner to take her down stairs and the [...] ABGs: No results for input(s): PHART, PO2ART, BWW9TMO, JWI7ZCU, BEART, E6QBUEEL, WMG4RQS in the last 72 hours. PT/INR: No [...] PLT [phone] BMP: Recent Labs 08/07/1941808/08/19 0613 08/09/19 0632 NA 140 140 139 [...] Home [] Home with Home Health [] Group Home Facility [] Long-Term Acute Care Hospital Patient [...] ABGs: No results for input(s): PHART, PO2ART, MZJ3WSW, QZU4RIT, BEART, Q9LEACSJ, NWG6EWA in the last 72 hours. PT/INR: No [...] in the note per my discussion with PIN SETTER. . * Caden Baldwin MD - 08/08/2019 [...] sodium chloride flush, acetaminophen CBC: Recent Labs 08/06/1942208/07/1941808/08/19 0613 WBC 7.9 20.0* 18.5* HGB 14.5 [...] Home [] Home with Home Health [] Group Home Facility [] [facility] Patient is admitted as inpatient status because of co-morbidities listed above, severity of signs and symptoms as outlined, requirement for current medical therapies and most importantly because of direct risk to patient if care not provided in a hospital setting. Caden Baldwin MD [facility] Hospitalist * Cynthia Russell - 08/08/2019 3:40 [...] ABGs: No results for input(s): PHART, PO2ART, BTA3DPL, JHM4OCB, BEART, M0SOBQHN, ICP4RPY in the last 72 hours. PT/INR: No [...] Ana Strickland MD [facility] [address] [id number] [phone] * Laura Mathis RN - 08/07/2019 3:15 PM EST Pt. Arrived to room 2045. Vitals obtained. Assessment Completed. Pt. Denies any needs at this time.Will Continue to monitor. * Reina Smith RN - 08/07/2019 3:00 PM EST I agree with the charting of Shellie HALL * Analia James RPH - 08/06/2019 9:25 PM EST Spoke with Dr. Childs and informed him that Codeine and Tylenol #3 are nonformulary and unavailable at [facility] and [facility] suggested Phenergan with codeine. He is very insistent that we try to obtain some, he used it at [facility] last month. Per [facility], [facility] appears to have Tylenol #3 still in stock. Called and spoke with pharmacist at [facility], she will call her industrial organization manager or buyer renter and find out if she can share with us, will call us back this evening. Awaiting call back. Analia James,PharmD, 08/06/2019, 9:28 PM * Tere Tafoya RN - 08/06/2019 8:45 PM EST Return call received from Dr Childs. He doesn't want Phenergan with codeine due to patient being on Hycodan. Wants to see if pharmacy can get in Codeine tablets. [place] [employer] talked with pharmacy and was informed there [...] the codeine tablet he ordered.Awaiting return page Tere Pendleton RN - 08/06/2019 7:00 PM EST Telemetry [...] NKDA Other pertinent information: Medications confirmed with [facility]. Thank you, Amanda Ellison, PharmD, [facility] [phone] * Jacob Luis [facility] - 08/05/2019 2:11 PM EST Breath [...] Obstructive chronic bronchitis with exacerbation Advance Directives Documents on File Type Date Recorded Patient Cardiology Technician Expl anation Advance Directives and Living Will Power of Coal Pipeline Operator Latest Code Status on File Code Status [...] Documents on File Type Date Recorded Patient Cardiology Technician Expl anation ACP-Advance Directive ACP-Power of Coal Pipeline Operator Latest Code Status on File Code Status Date Activated Date Inactivated Comments Full Code 10/05/2019 2:43 PM 10/08/2019 2:49 PM Full Code 08/27/2019 11:11 AM 08/29/2019 9:40 PM Full Code 08/25/2019 6:05 PM 08/27/2019 11:11 AM Full Code 08/25/2019 5:50 PM 08/25/2019 6:05 PM Full Code 08/05/2019 4:58 PM 08/10/2019 8:24 PM Documents on File Type Date Recorded Patient Cardiology Technician Expl anation ACP-Advance Directive ACP-Power of Coal Pipeline Operator Latest Code Status on File Code Status Date Activated Date Inactivated Comments Full Code 10/05/2019 2:43 PM 10/08/2019 2:49 PM Full Code 08/27/2019 11:11 AM 08/29/2019 9:40 PM Documents on File Type Date Recorded Patient Cardiology Technician Expl anation Advance Directives and Living Will Power of Coal Pipeline Operator Latest Code Status on File Code Status [...] be sent through Care Everywhere. * Cough (Nigerien) * URI (Upper Respiratory Infection): Viral (Nigerien) * Coronavirus Disease COVID-19: Isolation (Nigerien) documented in this encounter* Instructions* Misty Sharp [...] through Care Everywhere. * COPD Exacerbation Plan (Nigerien) * COPD (Nigerien) * Smoking Cessation: Health Benefits: General Info (Nigerien) documented in this encounter* Instructions* Warren Olivas [...] through Care Everywhere. * COPD: General Info (Nigerien) documented in this encounter Reason for Referral Status Reason Specialty Diagnoses / Procedures Re ferred By Contact Referred To Contact Closed Radiology Diagnoses Osteoarthritis of right acromioclavicular joint Procedures MRI SHOULDER RIGHT WO CONTRAST Mao Shepherd MD [address] [phone] Summary Purpose Family History No Family History [...] A Influenza A Caden Baldwin MD [address] [place] [address] [facility] Reason Comments Cough Status Reason Specialty Diagnoses / Procedures Re ferred By Contact Referred To Contact Closed Radiology Diagnoses Osteoarthritis of right acromioclavicular joint Procedures MRI SHOULDER RIGHT WO CONTRAST Mao Shepherd MD [address] [address] Status Reason Specialty Diagnoses / Procedures Referre d By Contact Referred To Contact Diagnoses chronic obstructive pulmonary disease Forest Childs MD [address] [facility] [address] [place] [address] [facility] [employer] Reason Comments Cough Shortness of Breath Status Reason Specialty Diagnoses / Procedures Referre d By Contact Referred To Contact Diagnoses COPD exacerbation (HCC) Caden Baldwin MD [address] [place] [address] [facility] [employer] Reason Comments Cough Shortness of Breath Chills Emesis Reason Comments Shortness of Breath Cough Fatigue Headache Reason Comments Med Refill Reason Comments discuss pain. back down to h ip and up to the neck. Would like also a referral to faro dealer. Chief complaint tired all the time INFORMATION SOURCE (unrecogn ized section and content) DATE CREATED AUTHOR 04/17/2020 [facility] DATE CREATED AUTHOR AUTHOR'S ORGANIZ ATION 11/23/2020 [facility] DATE CREATED AUTHOR AUTHOR'S ORGANIZ ATION 09/21/2021 [facility] DATE CREATED AUTHOR AUTHOR'S ORGANIZ ATION 12/20/2021 [facility] DATE CREATED AUTHOR AUTHOR'S ORGANIZ ATION 08/03/2023 [facility] DATE CREATED AUTHOR AUTHOR'S ORGANIZ ATION 08/21/2023 [facility] Ordered Prescriptions (unrec ognized section and content) [...] Care Teams (unrecognized sec tion and content) Environmental Health And Safety Manager Relationship Specialty Start Date End Date Louie Paul DO [address], [facility] [place] [address] PCP - General Family Medicine 09/27/21 Environmental Health And Safety Manager Relationship Specialty Start Date End Date Louie Paul DO [address], [facility] [place] [address] PCP - General Family Medicine 09/27/21 Environmental Health And Safety Manager Relationship Specialty Start Date End Date Louie Paul DO [address], [place] [address] PCP - General Family Medicine 09/27/21 Environmental Health And Safety Manager Relationship Specialty Start Date End Date Louie Paul DO [address], [place] [address] PCP - General Family Medicine 09/27/21 FOR [...] BE BASED ON THE PRIMARY CLINICAL RECORDS. [facility] [employer] [facility]. provides no warranty or guarantee of the accuracy or completeness of information in this document.
--- NOTE | 2023-08-29 13:32 | CT_ITS ---
The [address] [address] Patient Name: CAMERON US MRN: [id number] date: 1960 Sex: F Assigned Patient Location: ER Current Patient Location: ER Accession/Order Number: [id number] Exam Date: 08/29/2023 14:00 Report Date: 08/29/2023 14:56 At the request of: RUTH ANN STEVENSON Procedure: CT cervical spine wo con EXAM: CT cervical spine wo con HISTORY: neck pain, right UE pain and paresthesia TECHNIQUE: Axial CT scans through the cervical spine were obtained without contrast administration. Sagittal and coronal reconstruction images were obtained. A trauma Dose reduction techniques were achieved by using: automated exposure control and/or adjustment of mA and /or kV according to patient size and/or use of iterative reconstruction technique. COMPARISON: CT of the neck on 10/04/2021. FINDINGS: The alignment of the cervical spine is normal. A small posterior central disc protrusion each at C3-C4 and C4-C5. At C5-C6 and C6-C7, decreased disc height and mild posterior discovertebral complexes without central spinal stenosis. Moderate stenosis of the right C5-C6 neural foramen and mild stenosis of the left C6-C7 neural foramen secondary to decreased disc height and uncovertebral hypertrophy are unchanged. The prevertebral soft tissue space appears normal. No destructive bony lesions. Visualized intracranial contents appear normal. Visualized neck shows no adenopathy. Visualized lung apices are clear. CT/CT cervical spine wo con IMPRESSION: Degenerative changes in cervical spine without central spinal stenosis. Moderate stenosis of the right C5-C6 neural foramen secondary to decreased disc height and uncovertebral hypertrophy is unchanged compared to 10/04/2021. No destructive bony lesions. Electronically authenticated by: IVY HIGGINS Date: 08/29/2023 14:56
--- NOTE | 2023-08-29 13:34 | ED_ITS ---
HPI - General Adult General Chief complaint: Extremity Injury, Upper Stated complaint: UPPER EXTREMITY PAIN Time Seen by Provider: 08/29/23 13:19 Source: patient Mode of arrival: walk-in History of Present Illness HPI narrative: Patient presents with pain from the posterior and lateral right neck radiating down into the right UE. She complains of pain in the shoulder and cannot lift the shoulder in flexion or abduction greater than 90 degrees. No injury. She said that she had a painful lump in the right armpit that she noticed last week. She also told me that she has been itchy all over for about 2 weeks. She already sees pain management and is supposed to have a follow up appointment next week. Related Data Home Medications Medication Instructions Recorded Confirmed albuterol sulfate 0.63 mg/3 mL 0.63 mg inhalation TID PRN 08/03/23 08/10/23 solution for nebulization shortness of breath or wheezing apixaban 5 mg tablet (Eliquis) 5 mg PO BID 08/03/23 08/10/23 budesonide 160 mcg-glycopyr 9 2 inh inhalation BID 08/03/23 08/10/23 mcg-formot 4.8 mcg/actuation HFA inhaler (Breztri nuevoStagephere) diltiazem HCl 120 mg capsule,24 120 mg PO DAILY 08/03/23 08/10/23 hr,extended release duloxetine 20 mg capsule,delayed 20 mg PO DAILY 08/03/23 08/10/23 release levothyroxine 125 mcg capsule 125 mcg PO DAILY 08/03/23 08/10/23 Previous Rx's Medication Instructions Recorded methocarbamol 750 mg tablet 750 mg PO Q6H PRN pain #20 tabs 08/29/23 prednisone 20 mg tablet 40 mg (2 x 20 mg) PO DAILY 3 days 08/29/23 #6 tabs Allergies Allergy/AdvReac Type Severity Reaction Status Date / Time No Known Drug Allergies Allergy Verified 08/10/23 08:49 [facility] Medical History S/P neck surgery, follow-up exam ?Z09 - Encounter for follow-up examination after completed treatment for conditions other than malignant neoplasm (ICD-10) Upper back pain ?M54.9 - Dorsalgia, unspecified (ICD-10) Neck pain ?M54.2 - Cervicalgia (ICD-10) Low back pain ?M54.50 - Low back pain, unspecified (ICD-10) Hypothyroidism ?E03.9 - Hypothyroidism, unspecified (ICD-10) Pulmonary embolism ?I26.99 - Other pulmonary embolism without acute cor pulmonale (ICD-10) COPD (chronic obstructive pulmonary disease) ?J44.9 - Chronic obstructive pulmonary disease, unspecified (ICD-10) Smoker ?F17.200 - Nicotine dependence, unspecified, uncomplicated (ICD-10) Chronic cough ?R05.3 - Chronic cough (ICD-10) Atrial fibrillation ?I48.91 - Unspecified atrial fibrillation (ICD-10) Surgical History H/O thumb surgery ?Z98.890 - Other specified postprocedural states (ICD-10) Hx of appendectomy ?Z90.49 - Acquired absence of other specified parts of digestive tract (ICD- 10) H/O: hysterectomy ?Z90.710 - Acquired absence of both cervix and uterus (ICD-10) H/O carpal tunnel repair ?Z98.890 - Other specified postprocedural states (ICD-10) H/O thyroidectomy ?E89.0 - Postprocedural hypothyroidism (ICD-10) Exam Narrative Exam Narrative: Nurses notes and vital signs reviewed and patient is not hypoxic. afebrile General: anxious and emotional. Skin: Warm, dry, no pallor noted. No rash. Head: Normocephalic, atraumatic. Neck: Supple, no cervical lymphadenopathy. Tenderness to right posterolateral neck. Eye: Pupils are equal, round and EOMI. No scleral icterus. Cardiovascular: tachycardia. Respiratory: No accessory muscle use or respiratory distress. Lungs are clear to auscultation, no wheezing, rales or rhonchi Chest Wall: no tenderness or palpable mass. Back: No midline thoracic or lumbar vertebral tenderness. No CVA or scapular tenderness Musculoskeletal: Right trapezius and right shoulder tenderness. Decreased right shoulder ROM in flexion and abduction due to pain. Soft tissue tenderness right upepr arm. No mass found in the right axilla on visual inspection and on palpation. Right UE distal to the right upper arm is with normal ROM, no tenderness, no edema/swelling Neurological: A&O x4. No cranial nerve dysfunction observed. No truncal ataxia. Moves all extremities. Sensation intact. Psychiatric: Cooperative and interactive. Normal mood and affect. Constitutional Vital Signs, click to edit/add: Last Vital Signs Temp 97.8 F 08/29/23 13:17 Pulse 102 H 08/29/23 13:17 Resp 22 08/29/23 13:17 BP 141/95 H 08/29/23 13:17 Pulse Ox 98 08/29/23 13:17 O2 Del Method Room Air 08/29/23 13:17 Course Vital Signs Vital signs: Vital Signs Temperature 97.8 F 08/29/23 13:17 Pulse Rate 102 H 08/29/23 13:17 Respiratory Rate 22 08/29/23 13:17 Blood Pressure 141/95 H 08/29/23 13:17 Pulse Oximetry 98 08/29/23 13:17 Oxygen Delivery Method Room Air 08/29/23 13:17 Temperature 97.8 F 08/29/23 13:17 Pulse Rate 102 H 08/29/23 13:17 Respiratory Rate 22 08/29/23 13:17 Blood Pressure 141/95 H 08/29/23 13:17 Pulse Oximetry 98 08/29/23 13:17 Oxygen Delivery Method Room Air 08/29/23 13:17 Medical Decision Making MDM Narrative Medical decision making narrative: I do not palpate or appreciate any mass in the right axilla, right chest or right upper extremity. Peripheral IV established and blood drawn and sent for testing. The patient was ordered to receive IV Toradol and IV Solu-Medrol. She was also sent for x-rays of the right shoulder and CT scanning of the cervical spine. CBC normal. CMP normal. ESR and CRP elevated. Right shoulder xrays and CT cervical spine reveal degenerative changes/osteoarthritis as well as cervical central spinal stenosis. Patient and spouse informed of results. Patient felt better after ED treatment - less pain and increased right shoulder ROM. She was discharged home with pres criptions for Robaxin and short course of prednisone. Lab Data Lab results reviewed: Yes I reviewed the patient's lab results Labs: Lab Results 08/29/23 Range/Units 13:45 WBC 9.0 (4.0-11.0) 10^3/uL RBC 5.06 (4.20-5.40) 10^6/uL Hgb 15.3 (12.0-16.0) g/dL Hct 47.8 (36.0-48.0) % MCV 94.5 (81.0-99.0) fL MCH 30.2 (26.7-34.0) pg MCHC 32.0 (29.9-35.2) g/dL RDW 12.7 (11.0-15.0) % Plt Count 368 (150-450) 10^3/uL MPV 9.2 L (9.5-13.5) fL Neut % (Auto) 64.9 (43.0-75.0) % Lymph % (Auto) 27.5 (20.5-60.0) % Bradford % (Auto) 5.5 (1.7-12.0) % Eos % (Auto) 1.1 (0.9-7.0) % Baso % (Auto) 0.8 (0.2-2.0) % Neut # (Auto) 5.8 (1.4-6.5) 10^3/uL Lymph # (Auto) 2.5 (1.2-3.8) 10^3/uL Bradford # (Auto) 0.5 (0.3-0.8) 10^3/uL Eos # (Auto) 0.1 (0.0-0.7) 10^3/uL Baso # (Auto) 0.1 (0.0-0.1) 10^3/uL Abs Immat Gran (auto) 0.02 (0.00-0.03) 10^3/uL Imm/Tot Granulo (auto) 0.2 (0.0-0.5) % ESR 77 H (<=30) mm/hr Sodium 139 (136-145) mmol/L Potassium 4.1 (3.5-5.1) mmol/L Chloride 103 (98-107) mmol/L Carbon Dioxide 29.6 (21.0-32.0) mmol/L Anion Gap 10.5 BUN 18.0 (7.0-18.0) mg/dL Creatinine 0.89 (0.55-1.02) mg/dL Est GFR ( Amer) >60 (>=60) Est GFR (Non-Af Amer) >60 (>=60) BUN/Creatinine Ratio 20.2 Glucose 131 H (74-106) mg/dL Calcium 8.5 (8.5-10.1) mg/dL Total Bilirubin 0.3 (0.2-1.0) mg/dL AST 9 L (15-37) U/L ALT 10 L (14-59) U/L Alkaline Phosphatase 78 (46-116) U/L C-Reactive Protein 2.05 H (<=0.50) mg/dL Total Protein 7.5 (6.4-8.2) g/dL Albumin 2.9 L (3.4-5.0) g/dL Globulin 4.6 g/dL Albumin/Globulin Ratio 0.6 Imaging Data xr shoulder & CT ceervical spine: My impression: Procedure: CT cervical spine wo con EXAM: CT cervical spine wo con HISTORY: neck pain, right UE pain and paresthesia TECHNIQUE: Axial CT scans through the cervical spine were obtained without contrast administration. Sagittal and coronal reconstruction images were obtained. A trauma Dose reduction techniques were achieved by using: automated exposure control and/or adjustment of mA and /or kV according to patient size and/or use of iterative reconstruction technique. COMPARISON: CT of the neck on 10/04/2021. FINDINGS: The alignment of the cervical spine is normal. A small posterior central disc protrusion each at C3-C4 and C4-C5. At C5-C6 and C6-C7, decreased disc height and mild posterior discovertebral complexes without central spinal stenosis. Moderate stenosis of the right C5-C6 neural foramen and mild stenosis of the left C6-C7 neural foramen secondary to decreased disc height and uncovertebral hypertrophy are unchanged. The prevertebral soft tissue space appears normal. No destructive bony lesions. Visualized intracranial contents appear normal. Visualized neck shows no adenopathy. Visualized lung apices are clear Radiologist's impression: ITS Impressions Cervical Spine CT 08/29/23 13:32 IMPRESSION: Degenerative changes in cervical spine without central spinal stenosis. Moderate stenosis of the right C5-C6 neural foramen secondary to decreased disc height and uncovertebral hypertrophy is unchanged compared to 10/04/2021. No destructive bony lesions. Electronically authenticated by: IVY HIGGINS Date: 08/29/2023 14:56 Shoulder X-Ray 08/29/23 13:37 IMPRESSION: Degenerative changes without acute osseous abnormality. Electronically authenticated by: DEON GIL Date: 08/29/2023 14:55 Discharge Plan Discharge Stand Alone Forms: Portal Instructions Chief Complaint: Extremity Injury, Upper Clinical Impression: Pain in right upper arm, Cervical disc disease, OA (osteoarthritis) of shoulder Patient Disposition: Home, Self-Care Time of Disposition Decision: 15:15 Prescriptions / Home Meds: New methocarbamol 750 mg tablet 750 mg PO Q6H PRN (Reason: pain) Qty: 20 0RF prednisone 20 mg tablet 40 mg PO DAILY 3 Days Qty: 6 0RF No Action albuterol sulfate 0.63 mg/3 mL solution for nebulization 0.63 mg inhalation TID PRN (Reason: shortness of breath or wheezing) Eliquis 5 mg tablet 5 mg PO BID duloxetine 20 mg capsule,delayed release(DR/EC) 20 mg PO DAILY levothyroxine 125 mcg capsule 125 mcg PO DAILY Breztri Aerosphere 160-9-4.8 mcg/actuation HFA aerosol inhaler 2 inh inhalation BID diltiazem HCl 120 mg capsule,extended release 24 hr 120 mg PO DAILY Instructions: Osteoarthritis (ED), Degenerative Disc Disease (ED), Arm Pain (ED) Referrals: HE PAUL [Primary Care Provider] - 1 week
--- NOTE | 2023-08-29 13:37 | XR_ITS ---
The [address] [address] Patient Name: CAMERON US MRN: [id number] date: 1960 Sex: F Assigned Patient Location: ER Current Patient Location: ER Accession/Order Number: [id number] Exam Date: 08/29/2023 13:55 Report Date: 08/29/2023 14:55 At the request of: RUTH ANN STEVENSON Procedure: XR shoulder RT min 2V EXAM: XR shoulder RT min 2V HISTORY: right shoulder pain COMPARISON: None. TECHNIQUE: 4 views right shoulder FINDINGS: No acute displaced fracture or dislocation is evident. Moderate osteoarthritis of the AC joint. The glenohumeral joint is congruent. Soft tissues are unremarkable. Limited evaluation of the right hemithorax is unremarkable. XR/XR shoulder RT min 2V IMPRESSION: Degenerative changes without acute osseous abnormality. Electronically authenticated by: DEON GIL Date: 08/29/2023 14:55
[2023-08-29] MEDS: 0.9 % SODIUM CHLORIDE 1,000 ML 999 ML IV (13:50)
[2023-08-29] MEDS: KETOROLAC TROMETHAMINE 60 MG/2 ML VIAL IVP (13:50)
[2023-08-29] MEDS: METHYLPREDNISOLONE SOD SUCC PF 125 MG/2 ML VIAL IVP (13:50)
[2023-08-29 13:52] LABS: Basophils Absolute Auto 0.1 10^3/uL (0.0-0.1); Basophils Percent Auto 0.8 % (0.2-2.0); Eosinophils Absolute Auto 0.1 10^3/uL (0.0-0.7); Eosinophils Percent Auto 1.1 % (0.9-7.0); Hematocrit 47.8 % (36.0-48.0); Hemoglobin 15.3 g/dL (12.0-16.0); Immature Granulocytes Abs Auto 0.02 10^3/uL (0.00-0.03); Immature Granulocytes Pct Auto 0.2 % (0.0-0.5); Lymphocytes Absolute Auto 2.5 10^3/uL (1.2-3.8); Lymphocytes Percent Auto 27.5 % (20.5-60.0); Mean Corpuscular Hemoglobin 30.2 pg (26.7-34.0); Mean Corpuscular Volume 94.5 fL (81.0-99.0); Mean Platelet Volume 9.2 fL (9.5-13.5); Monocytes Absolute Auto 0.5 10^3/uL (0.3-0.8); Monocytes Percent Auto 5.5 % (1.7-12.0); Neutrophils Absolute Auto 5.8 10^3/uL (1.4-6.5); Neutrophils Percent Auto 64.9 % (43.0-75.0); Platelet Count 368 10^3/uL (150-450); Red Blood Count 5.06 10^6/uL (4.20-5.40); Red Cell Distribution Width 12.7 % (11.0-15.0)
[2023-08-29 14:05] LABS: Alanine Aminotransferase 10 U/L (14-59); Albumin Globulin Ratio 0.6; Albumin Level 2.9 g/dL (3.4-5.0); Alkaline Phosphatase 78 U/L (46-116); Anion Gap 10.5; Aspartate Amino Transferase 9 U/L (15-37); BUN Creatinine Ratio 20.2; Bilirubin Total 0.3 mg/dL (0.2-1.0); Calcium 8.5 mg/dL (8.5-10.1); Carbon Dioxide 29.6 mmol/L (21.0-32.0); Chloride 103 mmol/L (98-107); Estimated GFR (African America >60 (>=60); Estimated GFR (Non-African Ame >60 (>=60); Globulin 4.6 g/dL; Glucose 131 mg/dL (74-106); Potassium 4.1 mmol/L (3.5-5.1); Sodium 139 mmol/L (136-145); Total Protein 7.5 g/dL (6.4-8.2)
[2023-08-29 14:07] LABS: Erythrocyte Sedimentation Rate 77 mm/hr (<=30)
[2023-08-29 14:08] LABS: C Reactive Protein 2.05 mg/dL (<=0.50)
[2023-08-29 15:41] VITALS: BP 124/74; PULSE 96; O2SAT 95
== END 2023-08-29 15:45 | disposition home or self-care (01) ==
PROVIDERS: Emergency Provider Emergency Medicine; PCP Family Medicine
DX: M50.90 Cervical disc disorder, unspecified, unspecified cervical region (principal); M79.621 Pain in right upper arm; M19.011 Primary osteoarthritis, right shoulder; I48.91 Unspecified atrial fibrillation; J44.9 Chronic obstructive pulmonary disease, unspecified; Z90.49 Acquired absence of other specified parts of digestive tract; Z98.890 Other specified postprocedural states; E89.0 Postprocedural hypothyroidism; Z90.710 Acquired absence of both cervix and uterus; Z79.890 Hormone replacement therapy; F17.210 Nicotine dependence, cigarettes, uncomplicated; Z79.899 Other long term (current) drug therapy; Z79.01 Long term (current) use of anticoagulants; Z86.711 Personal history of pulmonary embolism
CPT/HCPCS: 36415; 72125; 73030; 80053; 85025; 85652; 86140; 96374; 96375; 99285; J2930

== ENCOUNTER 2023-08-31 09:08 | Day surgery (SDC) | payer BC, SELFPAY ==
--- OUTSIDE RECORDS SUMMARY | 2023-08-31 09:15 | XMS_ITS | CCD ---
Author Name Unknown Address [address] [place] [address] Organization [facility] Care Team Providers Care Patient Access Manager Name Role Phone Najma Ken Primary Care Provider Caden Baldwin Primary Care Provider Caden Baldwin Primary Care Provider FER KEND Michelle Referring Unavailabl e FRE KEND Michelle Primary Care Unavailabl e FER [...] Referring Unavailable LOUIE PAUL Primary Care Unavailable Tiernye CARDENAS, [place] Attending Unavailable Tierney CARDENAS, [place] Attending Unavailable Allergies Allergy Classification Reported Allergen(s) Allergy Type Date of Onset Reaction(s) Facility Calcium Channel Blockers (1 source) dilTIAZem Drug Allergy 10-12-2019 Itching, Swelling, Rash [facility] (3 sources) dilTIAZem Drug Allergy 10-12-2019 Itching, Swelling, Rash [facility]- [place], [place] Medications Current Medications Medication Drug [...] greater than 100.5 F (38 C), Starting [facility] 08/25/19 at 1749 Maximum dose of [...] solution Indications: Chronic respiratory failure with [place] [place] Inhale 3 mL (2.5 mg total) by nebulization every 6 (six) hours as needed for wheezing. 75 mL 2 05/11/2023 Active Start: 09-27-2021 take 2 puff(s) by in halation four times daily albuterol (PROVENTIL HFA;VENTOLIN HFA) 90 mcg/actuation inhaler Indications: Acute exacerbation of chronic obstructive pulmonary disease (COPD) [place] [place] Inhale 2 puffs 4 (four) times a [...] 5 mg tablet Indications: Paroxysmal atrial fibrillation ([facility]) TAKE 1 TABLET BY MOUTH TWICE A DAY 180 tablet 1 04/16/2023 Active Start: 10-01-2020 take 1 tablet by [facility] twice daily ELIQUIS 5 MG TABS tablet TAKE 1 TABLET BY MOUTH TWICE A DAY 180 tablet 1 10/01/2020 Active Start: 01-17-2020 take 1 tablet by [facility] twice daily ELIQUIS 5 MG TABS tablet TAKE 1 TABLET BY MOUTH TWICE A DAY 180 tablet 1 01/17/2020 Active Start: 07-20-2019 take 1 tablet by [facility] twice daily apixaban (ELIQUIS) 5 MG TABS tablet Take 1 tablet by mouth 2 times daily 180 tablet 1 07/20/2019 Active Start: 02-01-2019 take 1 tablet by [facility] twice daily apixaban (ELIQUIS) 5 MG TABS [...] take 2 puff(s) by inhalation at bedtime jbterthtip-xbnhjqli-vbi moterol (BREZTRI AEROSPHERE) 160-9-4.8 mcg/actuation HFA aerosol inhaler Indications: Acute exacerbation of chronic obstructive pulmonary disease (COPD) [place] [place] INHALE 2 PUFFS IN THE MORNING AND AT BEDTIME 10.7 g 0 07/19/2023 Active Start: 03-31-2023 End: 07-19-2023 take 2 puff(s) by inhalation at bedtime bjhmfdelvy-fmmsglxz-lbgatgpuns (BREZTRI AEROSPHERE) 160-9-4.8 mcg/actuation HFA aerosol inhaler Indications: Acute exacerbation of chronic obstructive pulmonary disease (COPD) [place] [place] Inhale 2 puffs in the morning and [...] Active Start: 11-28-2019 [facility] times daily dilTIAZem (CARDIZEM) 30 MG [...] Start: 11-09-2020 take 1 capsule by mo [facility] once daily DULoxetine (CYMBALTA) 20 MG extended release capsule TAKE 1 CAPSULE BY MOUTH EVERY DAY AT NIGHT 90 capsule 0 11/09/2020 Active Start: 02-21-2020 take 1 capsule by mo [facility] once daily DULoxetine (CYMBALTA) 20 MG [...] 0 08/29/2019 08/30/2019 Active polyethylene glycol 3350 93924 mg powder for oral solution (1 source) [...] Episodic Other aftercare (1 source) 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 COMPREHENSIVE METABOLIC PANE Deven 09-19-2021 Albumin [Mass/Vol] 3.9 g/dL Normal 3.6-5.1 [facility] Comment on above: Performed By: #### 7 600, 79671, 40235 #### [facility] of [place] [address] Service Secretary: Chalino Levy MD Albumin/Globulin [Mass ratio] 1.3 {ratio} Normal 1.0-2.5 [facility] Comment on above: Performed By: #### 7 600, 45536, 06220 #### [facility] of [address], [address] [place] [address] Service Secretary: Chalino Levy MD ALP [Catalytic activity/Vol] 71 U/L Normal 37-153 [facility] Comment on above: Performed By: #### 7 600, 71440, 45265 #### [facility] of [place] [address] Service Secretary: Chalino Levy MD ALT [Catalytic activity/Vol] 9 U/L Normal 6-29 [facility] Comment on above: Performed By: #### 7 600, 89424, 51340 #### [facility] [place] [address] Service Secretary: Chalino Levy MD AST [Catalytic activity/Vol] 10 U/L Normal 10-35 [facility] Comment on above: Performed By: #### 7 600, 92546, 80026 #### [facility] of [place] [address] Service Secretary: Chalino Levy MD Bilirubin [Mass/Vol] 0.6 mg/dL Normal 0.2-1.2 [facility] Comment on above: Performed By: #### 7 600, 42509, 09539 #### [facility] of [place] [address] Service Secretary: Chalino Levy MD BUN/CREATININE RATIO NOT APPLICABLE Normal 6-22 [facility] Comment on above: Performed By: #### 7 600, 05111, 25504 #### [facility] [address], [address] [place] [address] Service Secretary: Chalino Levy MD Calcium [Mass/Vol] 9.0 mg/dL Normal 8.6-10.4 [facility] Comment on above: Performed By: #### 7 600, 48625, 00348 #### [facility] [address], [address] [place] [address] Service Secretary: Chailno Levy MD Chloride [Moles/Vol] 103 mmol/L Normal 98-110 [facility] Comment on above: Performed By: #### 7 600, 49330, 01094 #### [facility] [address], [address] [place] [address] Service Secretary: Chalino Levy MD CO2 [Moles/Vol] 31 mmol/L Normal 20-32 [facility] Comment on above: Performed By: #### 7 600, 38844, 81504 #### [facility] [place] [address] Service Secretary: Chalino Levy MD Creatinine [Mass/Vol] 0.79 mg/dL Normal 0.50-0.99 [facility] Comment on above: Result Comment: For patients >49 years of age, the reference limit for Creatinine is approximately 13% higher for people identified as -Algerian. Performed By: #### 7 600, 20235, 37027 #### [facility] [address], [address] [place] [address] Service Secretary: Chalino Levy MD eGFR NON-AFR. [place] 80 mL/min/1.73m2 Normal > OR = 60 [facility] Comment on above: Performed By: #### 7 600, 82599, 39628 #### [facility] [place] [address] Service Secretary: Chalino Levy MD GFR/1.73 sq M.predicted among blacks MDRD (S/P/Bld) [Vol rate/Area] 93 mL/min/{1.73_m2} Normal > OR = 60 [facility] Comment on above: Performed By: #### 7 600, 42664, 42057 #### [facility] [place] [address] Service Secretary: Chalino Levy MD Globulin (S) [Mass/Vol] 3.0 g/dL Normal 1.9-3.7 [facility] Comment on above: Performed By: #### 7 600, , 58430 #### [facility] [place] [address] Service Secretary: Chalino Levy MD Glucose [Mass/Vol] 105 mg/dL High 65-99 [facility] Comment on above: Result Comment: Fasting reference interval For someone without known diabetes, a glucose value between 100 and 125 mg/dL is consistent with prediabetes and should be confirmed with a follow-up test. Performed By: #### 7 600, , 99193 #### [facility] [place] [address] Service Secretary: Chalino Levy MD Potassium [Moles/Vol] 4.3 mmol/L Normal 3.5-5.[address] [facility] Comment on above: Performed By: #### 7 600, 15648, 63514 #### [facility] [place] [address] Service Secretary: Chalino Levy MD Protein [Mass/Vol] 6.9 g/dL Normal 6.1-8.1 [facility] Comment on above: Performed By: #### 7 600, 91933, 82602 #### [facility] [place] [address] Service Secretary: Chalino Levy MD Sodium [Moles/Vol] 140 mmol/L Normal 135-146 [facility] Comment on above: Performed By: #### 7 600, 75784, 07089 #### [facility] [place] [address] Service Secretary: Chalino Levy MD Urea nitrogen [Mass/Vol] 23 mg/dL Normal 7-25 [facility] Comment on above: Performed By: #### 7 600, 85010, 82549 #### [facility] [address], [address] [place] [address] Service Secretary: Chalino Levy MD LIPID PANEL, [facility] 03-3 Cholesterol [Mass/Vol] 276 mg/dL High <200 [facility] Comment on above: Order Comment: FASTI NG:YES FASTING: YES Performed By: #### 7 600, 89315, 56856 #### [facility] [address], [address] [place] [address] Service Secretary: Chalino Levy MD Cholesterol in HDL [Mass/Vol] 48 mg/dL Low > OR = 50 [facility] Comment on above: Order Comment: FASTI NG:YES FASTING: YES Performed By: #### 7 600, 03299, 31700 #### [facility] [address], [address] [place] [address] Service Secretary: Chalino Levy MD Cholesterol in LDL [Mass/Vol] [...] Jose Roberto BOTELLO et al. EDGARDO. 2013;310(19): 7289-6095 (http://education.[employer] Mobile/faq/CRU541) Performed By: #### 7 600, 63501, 47866 #### [facility] [address], [address] [place] [address] Service Secretary: Chalino Levy MD Cholesterol.total/Chol esterol in HDL [Mass ratio] 5.8 {ratio} High <5.0 [facility] Comment on above: Order Comment: FASTI NG:YES FASTING: YES Performed By: #### 7 600, 55086, 30716 #### [facility] [address], [address] [place] [address] Service Secretary: Chalino Levy MD NON HDL CHOLESTEROL 228 [...] therapeutic option. Performed By: #### 7 600, 72098, 31320 #### [facility] [address], [address] [place] [address] Service Secretary: Chalino Levy MD Triglyceride [Mass/Vol] 212 mg/dL High <150 [facility] Comment on above: Order Comment: FASTI NG:YES FASTING: YES Result Comment: If a non-fasting specimen was collected, consider repeat triglyceride testing on a fasting specimen if clinically indicated. Levy et al. J. of Clin. Lipidol. 2015;9:129-169. Performed By: #### 7 600, 32730, 99718 #### [facility] [place] [address] Service Secretary: Chalino Levy MD TSH+FREE T4on 09-19-2021 Free T4 [Mass/Vol] 1.4 ng/dL Normal 0.8-1.8 [facility] Comment on above: Performed By: #### 7 600, 77820, 13909 #### [facility] [place] [address] Service Secretary: Chalino Levy MD TSH Qn 2.51 m[IU]/L Normal 0.40-4.50 [facility] Comment on above: Performed By: #### 7 600, 51725, 68448 #### [facility] [address], [address] [place] [address] Service Secretary: Chalino Levy MD XR CHEST 2 Von [...] BARRON TATUM Date: 2021-09-12 16:[address] [facility] US ST HEAD_NECKon 08-25-[address] HEAD_NECK EXAM: US ST HEAD_NEC K HISTORY: Mass of neck COMPARISON: Ultrasound neck 02/07/2015. CT neck 01/24/2015 TECHNIQUE: Focused sonographic images in the posterior occipital region in the patient's reported area of concern. Additional left neck was scanned per ob/gyn. FINDINGS: No suspicious mass identified within the [...] ASHLEE ESCUDERO Date: 2021-08-25 09:[address] [facility] CBC AUTO DIFFon 07-02-2021 BASO # 0.0 103/ul Normal 0.0-0.1 [facility] Comment on above: Performed By: #### C BC #### [facility] [address] [place] [address] [address] Bibi Emerson Basophils/100 WBC (Bld) 0.3 % Normal 0.2-2.0 [facility] Comment on above: Performed By: #### C BC #### [facility] [address] [place] [address] Dr. Bibi Emerson EO # 0.0 103/ul Normal 0.0-0.[address] [facility] Comment on above: Performed By: #### C BC #### [facility] [address] [place] [address] Dr. Bibi Emerson Eosinophils/100 WBC (Bld) 0.0 % Critically low 0.9-7.[address] [facility] Comment on above: Performed By: #### C BC #### [facility] [address] [place] [address] Dr. Bibi Emerson Erythrocyte distribution width (RBC) [Ratio] 13.0 % Normal 11.0-15.[address] [facility] Comment on above: Performed By: #### C BC #### [facility] [address] [place] [address] Dr. Bibi Emerson Hematocrit (Bld) [Volume fraction] 47.0 % Normal 36.0-48.0 [facility] Comment on above: Performed By: #### C BC #### [facility] [address] [place] [address] Dr. Bibi Emerson Hemoglobin (Bld) [Mass/Vol] 15.5 g/dL Normal 12.0-16.0 [facility] Comment on above: Performed By: #### C BC #### [facility] [address] [place] [address] Dr. Bibi Emerson IG # 0.01 10e3/ul Normal 0.00-0.[address] [facility] Comment on above: Performed By: #### C BC #### [facility] [address] [place] [address] Dr. Bibi Emerson IG % 0.2 % Normal 0.0-0.[address] [facility] Comment on above: Performed By: #### C BC #### [facility] [address] [place] [address] Dr. Bibi Emerson LYMPH # 2.0 103/ul Normal 1.2-3.[address] [facility] Comment on above: Performed By: #### C BC #### [facility] [address] [place] [address] Dr. Bibi Emerson Lymphocytes/100 WBC (Bld) 30.7 % Normal 20.5-60.[address] [facility] Comment on above: Performed By: #### C BC #### [facility] [address] [place] [address] Dr. Bibi Emerson MANUAL DIFF REQ NO Normal [facility] Comment on above: Performed By: #### C BC #### [facility] [address] [place] [address] Dr. Bibi Emerson MCH (RBC) [Entitic mass] 29.8 pg Normal 26.7-34.[address] [facility] Comment on above: Performed By: #### C BC #### [facility] [address] [place] [address] Dr. Bibi mEerson MCHC (RBC) [Mass/Vol] 33.0 g/dL Normal 29.9-35.[address] [facility] Comment on above: Performed By: #### C BC #### [facility] [address] [place] [address] Dr. Bibi Emerson MCV (RBC) [Entitic vol] 90.2 fL Normal 81.0-99.[address] [facility] Comment on above: Performed By: #### C BC #### [facility] [address] [place] [address] Dr. Bibi Emerson MONO # 0.5 103/ul Normal 0.3-0.[address] [facility] Comment on above: Performed By: #### C BC #### [facility] [address] [place] [address] Dr. Bibi Emerson Monocytes/100 WBC (Bld) 7.9 % Normal 1.7-12.[address] [facility] Comment on above: Performed By: #### C BC #### [facility] [address] [place] [address] Dr. Bibi Emerson NEUT # 4.0 103/ul Normal 1.4-6.[address] [facility] Comment on above: Performed By: #### C BC #### [facility] [address] [place] [address] Dr. Bibi Emerson Neutrophils/100 WBC (Bld) 60.9 % Normal 43.0-75.[address] [facility] Comment on above: Performed By: #### C BC #### [facility] [address] [place] [address] Dr. Bibi Emerson Platelet mean volume (Bld) [Entitic vol] 8.9 fL Critically low 9.5-13.5 [facility] Comment on above: Performed By: #### C BC #### [facility] [address] [place] [address] Dr. Bibi Emerson PLT 303 103/ul Normal 150-[address] [facility] Comment on above: Performed By: #### C BC #### [facility] [address] [place] [address] Dr. Bibi Emerson RBC 5.21 106/ul Normal 4.20-5.[address] [facility] Comment on above: Performed By: #### C BC #### [facility] [address] [place] [address] Dr. Bibi Emerson WBC 6.5 103/ul Normal 4.0-11.[address] [facility] Comment on above: Performed By: #### C BC #### [facility] [address] [place] [address] Dr. Bibi Emerson [facility] SARS-CoV-2 (COVID-19) RNA RAAD+probe Ql (Unsp spec) Detected Critically abnormal NOT DETECTED [facility] Comment on above: Result Comment: This test is not yet approved or cleared by the [place] FDA. When there are no FDA-approved or cleared tests available, and other criteria are met, FDA can make tests available under an emergency access mechanism called an Emergency Use Authorization (EUA). The EUA for this test is supported by the [place] of Health and Human Service's (HHS's) declaration [...] used). Performed By: #### C VDTBH #### [facility] [address] [place] [address] Dr. Bibi Emerson INFLUENZA A AND B AGon 07-02 INFLUANE SEE BELOW Normal [facility] Comment on above: Result Comment: Nega tive for Flu A protein angiten. Infection due to Flu A cannot be ruled out. Flu A angiten in the sample may be below the detection limit of the test. Performed By: #### I NFLUAB ####[facility] [address] [place], [place] [address]Dr. Bibi Emerson INFLUBNEG SEE BELOW Normal [facility] Comment on above: Result Comment: Nega tive for Flu B protein antigen. Infection due to Flu B cannot be ruled out. Flu B antigen in the sample may be below the detection limit of the test. Performed By: #### I NFLUAB ####[facility] [address] [place], [place] [address]DrNorma Emerson INFLUENZA A AG Negative Normal NEGATIVE SEE COMMENT [facility] Comment on above: Performed By: #### I NFLUAB ####[facility] [address] [place], [place] [address]Dr. Bibi Emerson INFLUENZA B AG Negative Normal NEGATIVE SEE COMMENT [facility] Comment on above: Performed By: #### I NFLUAB ####[facility] [address] [place], [place] [address]DrNorma Emerson INTERNAL CONTROLS Within Normal Limits Normal Wi thin Normal Limits [facility] Comment on above: Performed By: #### I NFLUAB ####[facility] [address] [place], [place] [address]DrNorma Emerson PROF CHEM 8 (BAS METB)on Anion gap [Moles/Vol] 12.0 mmol/L Normal [facility] Comment on above: Performed By: #### B MP #### [facility] [address] [place] [address] Dr. Bibi Emerson Calcium [Mass/Vol] 8.2 mg/dL Critically low 8.4-10.[address] [facility] Comment on above: Performed By: #### B MP #### [facility] [address] [place] [address] [address] Bibi Emerson Chloride [Moles/Vol] 102 mmol/L Normal 98-107 [facility] Comment on above: Performed By: #### B MP #### [facility] [address] [place] [address] [address] Bibi Emerson CO2 [Moles/Vol] 27.6 mmol/L Normal 22.0-30.0 [facility] Comment on above: Performed By: #### B MP #### [facility] [address] [place] [address] [address] Bibi Emerson Creatinine [Mass/Vol] 1.03 mg/dL Normal 0.52-1.04 [facility] Comment on above: Performed By: #### B MP #### [facility] [address] [place] [address] [address] Bibi Emerson EGFR-AF [place] >60 Normal >=60 [facility] Comment on above: Performed By: #### B MP #### [facility] [address] [place] [address] [address] Bibi Emerson EGFR-NON AF [place] 54 mL/min/1.73m2 Critically low >=60 [facility] Comment on above: Performed By: #### B MP #### [facility] [address] [place] [address] [address] Bibi Emerson Glucose [Mass/Vol] 127 mg/dL Critically high 74-106 [facility] Comment on above: Performed By: #### B MP #### [facility] [address] [place] [address] [address] Bibi Emerson Potassium [Moles/Vol] 3.6 mmol/L Normal 3.4-5.0 [facility] Comment on above: Performed By: #### B MP #### [facility] [address] [place] [address] [address] Bibi Emerson Sodium [Moles/Vol] 138 mmol/L Normal 137-145 [facility] Comment on above: Performed By: #### B MP #### [facility] [address] [place], [place] [address] Dr. Bibi Emerson Urea nitrogen [Mass/Vol] 18.0 mg/dL Critically high 7.0-17.[address] [facility] Comment on above: Performed By: #### B MP #### [facility] [address] [place], [place] [address] Dr. Bibi Emerson Urea nitrogen/Creatinine [Mass ratio] 17.5 mg/mg Normal [facility] Comment on above: Performed By: #### B MP #### [facility] [address] [place], [place] [address] Dr. Bibi Emerson XR CHEST 1 Von [...] GYPSY MUÑOZ Date: 2021-07-02 21:[address] [facility] Covid-19 PCR ([facility])on SARS-CoV-2 (COVID-19) RNA RADA+probe Ql (Unsp spec) Not detected Normal NOT DETECTED [facility] Comment on above: Result Comment: This test is not yet approved or cleared by the [place] FDA. When there are no FDA-approved or cleared tests available, and other criteria are met, FDA can make tests available under an emergency access mechanism called an Emergency Use Authorization (EUA). The EUA for this test is supported by the [place] of Health and Human Service's (HHS's) declaration [...] with SARS-CoV-2. Performed By: #### C VDTB ####[facility] [address] [place], [place] [address]PyNorma Emerson TSH+FREE T4on 03-27-2021 Free T4 [Mass/Vol] 1.2 ng/dL Normal 0.8-1.8 [facility] Comment on above: Performed By: #### 5 8984 #### [facility] of [address], [address] [place] [address] Service Secretary: Chalino Levy MD TSH Qn 2.23 m[IU]/L Normal 0.40-4.50 [facility] Comment on above: Performed By: #### 5 8984 #### [facility] [address], [address] [place] [address] Service Secretary: Chalino Levy MD Covid-19 PCR ([facility])on 02-20 SARS-CoV-2 (COVID-19) RNA RAAD+probe Ql (Unsp spec) Not detected Normal NOT DETECTED [facility] Comment on above: Result Comment: This test is not yet approved or cleared by the [place] FDA. When there are no FDA-approved or cleared tests available, and other criteria are met, FDA can make tests available under an emergency access mechanism called an Emergency Use Authorization (EUA). The EUA for this test is supported by the [place] of Health and Human Service's (HHS's) declaration [...] Performed By: #### C VDTBH, CVDAGS #### [facility] [address] [place] [address] Farida Yang SYMPTOMATIC COVID-19 ANTIGEN on 03-02-2021 EUA Statement SEE BELOW Normal [facility] Comment on above: Result Comment: This test [...] Performed By: #### C AKIL, JACIAGS #### [facility] [address] [place] [address] Farida Celia SARS-CoV-2 (COVID-19) RNA RAAD+probe Ql (Unsp spec) Negative Normal NEGATIVE [facility] Comment on above: Result Comment: CONF IRMATION BY PCR PENDING PER CDC GUIDELINES/ SYMPTOMATIC PATIENT. Performed By: #### C VDTBH, CVDAGS #### [facility] [address] [place] [address] Farida Yang XR CHEST 1 Von 03-02-2021 [...] PALMER GREGORIO Date: 2021-03-02 13:[address] [facility] Basic Metabolic PanelOrdered By: Heena John on 11-22-2020 Anion gap [Moles/Vol] 9 mmol/L 9 - 17 mmol/L [employer] Phone: Calcium [Mass/Vol] 8.3 mg/dL Low 8.6 - 10. 4 mg/dL [employer] Phone: Chloride [Moles/Vol] 103 mmol/L 98 - 10 7 mmol/L [employer] Digital Phone: CO2 [Moles/Vol] 29 mmol/L 20 - 31 mmol/L [employer] Phone: Creatinine [Mass/Vol] 0.77 mg/dL 0.50 - 0.90 mg/dL [employer] Phone: GFR >60 >60 mL/min [employer] Phone: GFR Non- >60 >60 mL/min [employer] Phone: GFR/1.73 sq M.predicted MDRD (S/P/Bld) [Vol rate/Area] [employer] Phone: Comment on above: Average GFR for 60-6 9 years old: 85 mL/min/1.73sq m Chronic Kidney Disease: <60 mL/min/1.73sq m Kidney failure: <15 mL/min/1.73sq m eGFR calculated using average adult body mass. Additional eGFR calculator available at: http://www.[employer]ision[employer] Mobile/multiple_crcl_2012.htm GFR/1.73 sq M.predicted MDRD (S/P/Bld) [Vol rate/Area] NOT REPORTED [employer] Phone: Glucose [Mass/Vol] 131 mg/dL High 70 - 99 mg/dL [employer] Phone: Interpretation and review of laboratory results Abnormal [employer] Phone: Potassium [Moles/Vol] 4.5 mmol/L 3.7 - 5.3 mmol/L [employer] Phone: Sodium [Moles/Vol] 141 mmol/L 135 - 144 mmol/L [facility] [employer] Phone: Urea nitrogen (BldV) [Mass/Vol] 21 mg/dL 8 - 23 mg/dL [facility] [employer] Phone: Urea nitrogen/Creatinine (Bld) [Mass ratio] NOT REPORTED [facility] [employer] Phone: [facility] [employer] Phone: Basic Metabolic Profon 11-22 (cont.) Normal [facility] Comment on above: Result Comment: Aver age GFR for 60-69 years old: 85 mL/min/1.73sq m Chronic Kidney Disease: <60 mL/min/1.73sq m Kidney failure: <15 mL/min/1.73sq m eGFR calculated using average adult body mass. Additional eGFR calculator available at: http://www.GroupTie/multiple_crcl_2011.htm Performed By: #### C DP, BMP #### [facility] [address] [place] [address] [employer] Supervisor: Justin Chmabers DO Anion gap [Moles/Vol] 9 mmol/L Normal 9-17 [facility] Comment on above: Performed By: #### C DP, BMP #### [facility] [place] [address] [employer] Supervisor: Justin Chambers DO Calcium [Mass/Vol] 8.3 mg/dL Low 8.6-10.4 [facility] Comment on above: Performed By: #### C MARION, BMP #### [facility] [address] [place] [address] [employer] Supervisor: Justin Chambers DO Chloride [Moles/Vol] 103 mmol/L Normal 98-107 [facility] Comment on above: Performed By: #### C DP, BMP #### [facility] [place] [address] [employer] Supervisor: Justin Chambers DO CO2 [Moles/Vol] 29 mmol/L Normal 20-31 [facility] Comment on above: Performed By: #### C DP, BMP #### [facility] [address] [place] [address] [employer] Supervisor: Justin Chambers DO Creatinine [Mass/Vol] 0.77 mg/dL Normal 0.50-0.90 [facility] Comment on above: Performed By: #### C DP, BMP #### [facility] [address] [place] [address] [employer] Supervisor: Justin Chambers DO GFR, Amer >60 Normal >60 [facility] Comment on above: Performed By: #### C DP, BMP #### [facility] [place] [address] [employer] Supervisor: Justin Chambers DO GFR,non Amer >60 Normal >60 [facility] Comment on above: Performed By: #### C DP, BMP #### [facility] [facility] [place] [address] [employer] Supervisor: Justin Chambers DO Glucose [Mass/Vol] 131 mg/dL High 70-99 [facility] Comment on above: Performed By: #### C DP, BMP #### [facility] [address] [place] [address] [employer] Supervisor: Justin Chambers DO Potassium [Moles/Vol] 4.5 mmol/L Normal 3.7-5.3 [facility] Comment on above: Performed By: #### C DP, BMP #### [facility] [address] [place] [address] [employer] Supervisor: Justin Chambers DO Sodium [Moles/Vol] 141 mmol/L Normal 135-144 [facility] Comment on above: Performed By: #### C DP, BMP #### [facility] [address] [facility] [place] [address] [employer] Supervisor: Justin Chambers DO Urea nitrogen [Mass/Vol] 21 mg/dL Normal 8-23 [facility] Comment on above: Performed By: #### C DP, BMP #### [facility] [address] [facility] [place] [address] [employer] Supervisor: Justin Chambers DO BUN/CRE Ratio NOT REPORTED Normal 9-20 [facility] Comment on above: Performed By: #### C DP, BMP #### [facility] [address] [place] [address] [employer] Supervisor: Justin Chambers DO Staging: NOT REPORTED Normal [facility] Comment on above: Performed By: #### C DP, BMP #### [facility] [address] [place] [address] [employer] Supervisor: Justin Chambers DO CBC Auto DifferentialOrdered By: Heena John on 11-22-2020 [employer] Eos # 0.40 [facility] Work Phone: Absolute Immature Granulocyte NOT REPORTED [facility] Work Phone: Absolute Lymph # 1.80 [facility] Work Phone: Absolute Bledsoe # 0.50 [facility] Work Phone: Basophils (Bld) [#/Vol] 0.10 10*3/uL [employer] Work Phone: Basophils/100 WBC (Bld) 1 % 0 - 2 % [employer] Work Phone: Differential Type NOT REPORTED [facility] Work Phone: Eosinophils/100 WBC (Bld) 4 % 0 - 4 % [employer] Work Phone: Hematocrit (Bld) [Volume fraction] 42.5 % 36 - 46 % [employer] Phone: Hemoglobin.gastrointes tinal spec 1 Ql (Stl) 13.8 g/dL 12.0 - 16.0 g/dL [employer] Phone: Immature Granulocytes NOT REPORTED 0 % [employer] Work Phone: Interpretation and review of laboratory results Abnormal [facility] Phone: Lymphocytes/100 WBC (Bld) 19 % Low 24 - 44 % [employer] Phone: MCH (RBC) [Entitic mass] 29.5 pg 26 - 34 pg [employer] Phone: MCHC (RBC) [Mass/Vol] 32.5 g/dL 31 - 3 7 g/dL [employer] Phone: MCV (RBC) [Entitic vol] 90.8 fL 80 - 100 fL [employer] Phone: Monocytes/100 WBC (Bld) 6 % 1 - 7 % [employer] Phone: NRBC Automated NOT REPORTED per 100 WBC [facility] Work Phone: Platelet distribution width (Bld) [Ratio] 13.3 % 11.5 - 14.9 % [employer] Phone: Platelet Estimate NOT REPORTED [facility] Phone: Platelet mean volume (Bld) [Entitic vol] 7.2 fL 6.0 - 12.0 fL [employer] Phone: Platelets (Bld) [#/Vol] 388 10*3/uL [employer] Phone: RBC (Bld) [#/Vol] 4.68 10*6/uL 4.0 - 5.2 m/uL [employer] Phone: RBC (Bld) [#/Vol] NOT REPORTED [employer] Work Phone: Segmented neutrophils/100 WBC (Bld) 70 % High 36 - 66 % [employer] Work Phone: Segs Absolute 6.70 [facility] Work Phone: WBC (Bld) [#/Vol] 9.4 10*3/uL [employer] Work Phone: WBC (Bld) [#/Vol] NOT REPORTED [employer] Work Phone: [employer] Work Phone: CBC with Diffon 11-22-2020 Abs. Basophil 0.10 k/uL Normal 0.0-0.2 [facility] Comment on above: Performed By: #### C DP, BMP #### [facility] [address] [place] [address] [employer] Supervisor: Justin Chambers DO Abs.Neutrophil (Seg) 6.70 k/uL Normal 1.3-9.1 [facility] Comment on above: Performed By: #### C DP, BMP #### [facility] [address] [place] [address] [employer] Supervisor: Justin Chambers DO Basophils/100 WBC (Bld) 1 % Normal 0-2 [facility] Comment on above: Performed By: #### C DP, BMP #### [facility] [place] [address] [employer] Supervisor: Justin Chambers DO Eosinophils (Bld) [#/Vol] 0.40 10*3/uL Normal 0.0-0.4 [facility] Comment on above: Performed By: #### C DP, BMP #### [facility] [address] [place] [address] [employer] Supervisor: Justin Chambers DO Eosinophils/100 WBC (Bld) 4 % Normal 0-4 [facility] Comment on above: Performed By: #### C MARION, BMP #### [facility] [place] [address] [employer] Supervisor: Justin Chambers DO Erythrocyte distribution width (RBC) [Ratio] 13.3 % Normal 11.5-14.9 [facility] Comment on above: Performed By: #### C DP, BMP #### [facility] [place] [address] [employer] Supervisor: Justin Chambers DO Hematocrit (Bld) [Volume fraction] 42.5 % Normal 36-46 [facility] Comment on above: Performed By: #### C DP, BMP #### [facility] [address] [place] [address] [employer] Supervisor: Justin Chambers DO Hemoglobin (Bld) [Mass/Vol] 13.8 g/dL Normal 12.0-16.0 [facility] Comment on above: Performed By: #### C MARION, BMP #### [facility] [address] [place] [address] [employer] Supervisor: Justin Chambers DO Lymphocytes (Bld) [#/Vol] 1.80 10*3/uL Normal 1.0-4.8 [facility] Comment on above: Performed By: #### C DP, BMP #### [facility] [place] [address] [employer] Supervisor: Justin Chambers DO Lymphocytes/100 WBC (Bld) 19 % Low 24-44 [facility] Comment on above: Performed By: #### C DP, BMP #### [facility] [place] [address] [employer] Supervisor: Justin Chambers DO MCH (RBC) [Entitic mass] 29.5 pg Normal 26-34 [facility] Comment on above: Performed By: #### C DP, BMP #### [facility] [place] [address] [employer] Supervisor: Justin Chambers DO MCHC (RBC) [Mass/Vol] 32.5 g/dL Normal 31-37 [facility] Comment on above: Performed By: #### C DP, BMP #### [facility] [address] [place] [address] [employer] Supervisor: Justin Chambers DO MCV (RBC) [Entitic vol] 90.8 fL Normal 80-100 [facility] Comment on above: Performed By: #### C DP, BMP #### [facility] [address] [place] [address] [employer] Supervisor: Justin Chambers DO Monocytes (Bld) [#/Vol] 0.50 10*3/uL Normal 0.1-1.3 [facility] Comment on above: Performed By: #### C MARION, BMP #### [facility] [address] [place] [address] [employer] Supervisor: Justin Chambers DO Monocytes/100 WBC (Bld) 6 % Normal 1-7 [facility] Comment on above: Performed By: #### C DP, BMP #### [facility] [address] [place] [address] [employer] Supervisor: Justin Chambers DO Neutrophil (Seg) 70 % High 36-66 [facility] Comment on above: Performed By: #### C DP, BMP #### [facility] [address] [place] [address] [employer] Supervisor: Justin Chambers DO Platelet mean volume (Bld) [Entitic vol] 7.2 fL Normal 6.0-12.0 [facility] Comment on above: Performed By: #### C DP, BMP #### [facility] [address] [place] [address] [employer] Supervisor: Justin Chambers DO Platelets (Bld) [#/Vol] 388 10*3/uL Normal 150-450 [facility] Comment on above: Performed By: #### C DP, BMP #### [facility] [address] [place] [address] [employer] Supervisor: Justin Chambers DO RBC (Bld) [#/Vol] 4.68 10*6/uL Normal 4.0-5.2 [facility] Comment on above: Performed By: #### C DP, BMP #### [facility] [address] [place] [address] [employer] Supervisor: Justin Chambers DO WBC (Bld) [#/Vol] 9.4 10*3/uL Normal 3.5-11.0 [facility] Comment on above: Performed By: #### C MARION, BMP #### [facility] [address] [place] [address] [employer] Supervisor: Justin Chambers DO Abs.Imm.Granulocyte NOT REPORTED Normal 0.00-0.30 [facility] Comment on above: Performed By: #### C DP, BMP #### [facility] [address] [place] [address] [employer] Supervisor: Justin Chambers DO Auto Diff Performed NOT REPORTED Normal [facility] Comment on above: Performed By: #### C DP, BMP #### [facility] [address] [place] [address] [employer] Supervisor: Justin Chambers DO Immature Granulocyte NOT REPORTED Normal 0 [facility] Comment on above: Performed By: #### C DP, BMP #### [facility] [address] [facility] [place] [address] [employer] Supervisor: Justin Chambers DO NRBC Automated NOT REPORTED Normal [facility] Comment on above: Performed By: #### C DP, BMP #### [facility] [address] [facility] [place] [address] [employer] Supervisor: Justin Chambers DO Platelet Estimate NOT REPORTED Normal [facility] Comment on above: Performed By: #### C DP, BMP #### [facility] [address] [place] [address]. [place] [address] [employer] Supervisor: Justin Chambers DO RBC morphology finding Nom (Bld) NOT REPORTED Normal [facility] Comment on above: Performed By: #### C DP, BMP #### [facility] [address] [place] [address]. [place] [address] [employer] Supervisor: Justin Chambers DO WBC Morphology NOT REPORTED Normal [facility] Comment on above: Performed By: #### C DP, BMP #### [facility] [place] [address] [employer] Supervisor: Justin Chambers DO COVID-19, RapidOrdered By: Ifeoma John on 11-22-2020 SARS-CoV-2 (COVID-19) RNA RAAD+probe Ql (Unsp spec) Not detected Not Detected [facility] Work Phone: Comment on above: Rapid NAAT: [...] management decisions. Fact sheet for Healthcare Providers: https://www.fda.gov/media/542623/download Fact sheet for Patients: https://www.fda.gov/media/098320/download Methodology: Isothermal Nucleic Acid Amplification Specimen Description .NASOPHARYNGEAL SWAB [facility] Phone: [facility] [employer] Phone: [id number] 11-22-2020 SARS-CoV-2 (COVID-19) RNA RAAD+probe Ql (Unsp spec) Not detected Normal [facility] Comment on above: Result Comment: Rapid [...] management decisions. Fact sheet for Healthcare Providers: https://www.fda.gov/media/283925/download Fact sheet for Patients: https://www.fda.gov/media/847827/download Methodology: Isothermal Nucleic Acid Amplification Performed By: #### C OVRB #### [facility] [address] [place] [address] [employer] Supervisor: Justin Chambers DO XR CHEST PORTABLEon 11-23-19 [...] Ryanne Cantrell MD 11/22/20 Final result Normal [facility] XR CHEST PORTABLEOrdered By: Heena John on 11-22-2020 No acute cardiopulmonary process. Stable cardiomegaly and chronic basilar changes. [employer] Phone: EXAMINATION: ONE XRA Y VIEW OF [...] are age-appropriate. Chronic basilar changes are noted. [employer] Phone: Jose Antonio, pn Incoming Radiant Results From [employer] - 11/22/2020 1:15 PM EDT EXAMINATION: ONE [...] process. Stable cardiomegaly and chronic basilar changes. [employer] Phone: [facility] [employer] Phone: CT HEAD WO CONTRASTon 2019 CT [...] Huma Contreras MD 04/18/20 Final result Normal [facility] CBCon 04-16-2020 Erythrocyte distribution width (RBC) [Ratio] 13.0 % Normal 11.8-14.4 [facility] [place] [facility] Comment on above: Performed By: #### C MEERA HARRIS, TSH #### [employer] [facility] [address] [place] [address] [employer] Supervisor: Beau Troncoso MD Hematocrit (Bld) [Volume fraction] 45.8 % Normal 36.3-47.1 [facility] [place] [facility] Comment on above: Performed By: #### C MEERA HARRIS, TSH #### [employer] [address] [place] [address] [employer] Supervisor: Beau Troncoso MD Hemoglobin (Bld) [Mass/Vol] 14.3 g/dL Normal 11.9-15.1 [facility] [place] [facility] Comment on above: Performed By: #### C MEERA HARRIS, TSH #### [address] [address] [employer] Supervisor: Beau Troncoso MD MCH (RBC) [Entitic mass] 29.5 pg Normal 25.2-33.5 [facility] [place] [facility] Comment on above: Performed By: #### C BC, CP, TSH #### [address] [address] [employer] Supervisor: Beau Troncoso MD MCHC (RBC) [Mass/Vol] 31.2 g/dL Normal 28.4-34.8 [facility] Comment on above: Performed By: #### C BC, CP, TSH #### [address] [address] [employer] Supervisor: Beau Troncoso MD MCV (RBC) [Entitic vol] 94.6 fL Normal 82.6-102.9 [facility] [place] [facility] Comment on above: Performed By: #### C BC, CP, TSH #### [address] [address] [employer] Supervisor: Beau Troncoso MD NRBC Automated 0.0 per 100 WBC Normal 0.0 [facility] [place] [facility] Comment on above: Performed By: #### C BC, CP, TSH #### [address] [address] [employer] Supervisor: Beau Troncoso MD Platelet mean volume (Bld) [Entitic vol] 9.6 fL Normal 8.1-13.5 [facility] [place] [facility] Comment on above: Performed By: #### C BC, CP, TSH #### [address] [address] [employer] Supervisor: Beau Troncoso MD Platelets (Bld) [#/Vol] 419 10*3/uL Normal 138-453 [facility] [place] [facility] Comment on above: Performed By: #### C BC, CP, TSH #### [address] [id number] [employer] Supervisor: Beau Troncoso MD RBC (Bld) [#/Vol] 4.84 10*6/uL Normal 3.95-5.11 [facility] [place] [facility] Comment on above: Performed By: #### C KIMBERLY, CP, TSH #### [facility] [address] [place], [place] [id number] Core Assembly Supervisor: Beau Troncoso MD WBC (Bld) [#/Vol] 7.6 10*3/uL Normal 3.5-11.3 [facility] [place] [facility] Comment on above: Performed By: #### C MEERA HARRIS, TSH #### [facility] [address] [place], [place] [id number] Core Assembly Supervisor: Beau Troncoso MD Erythrocyte distribution width (RBC) [Ratio] 13.0 % 11.8 - 14.4 % [place], [place] Hematocrit (Bld) [Volume fraction] 45.8 % 36.3 - 47.1 % [place] Hemoglobin (Bld) [Mass/Vol] 14.3 g/dL 11.9 - 15.1 g/dL [place] MCH (RBC) [Entitic mass] 29.5 pg 25.2 - 33.5 pg [place] MCHC (RBC) [Mass/Vol] 31.2 g/dL 28.4 - 34.8 g/dL [place] MCV (RBC) [Entitic vol] 94.6 fL 82.6 - 102.9 fL [place] Platelet mean volume (Bld) [Entitic vol] 9.6 fL 8.1 - 13.5 fL [place] Platelets (Bld) [#/Vol] 419 10*3/uL [place] RBC (Bld) [#/Vol] 4.84 10*6/uL 3.95 - 5.1 1 m/uL [place] WBC (Bld) [#/Vol] 0.0 10*3/uL 0.0 per 10 0 WBC [place] WBC (Bld) [#/Vol] 7.6 10*3/uL [facility] [place], [place] Comp Metabolic Profon 2019 (cont.) Normal [facility] [place] [facility] Comment on above: Result Comment: Aver age GFR for 60-69 years old: 85 mL/min/1.73sq m Chronic Kidney Disease: <60 mL/min/1.73sq m Kidney failure: <15 mL/min/1.73sq m eGFR calculated using average adult body mass. Additional eGFR calculator available at: http://www.GroupTie/multiple_crcl_2012.htm Performed By: #### C KIMBERLY CP, TSH #### [address] [address] [employer] Supervisor: Beau Troncoso MD Albumin [Mass/Vol] 4.0 g/dL Normal 3.5-5.2 [facility] [place] [facility] Comment on above: Performed By: #### C KIMBERLY CP, TSH #### [facility] [address] [place] [address] [employer] Supervisor: Beau Troncoso MD Albumin/Globulin [Mass ratio] 1.4 {ratio} Normal 1.0-2.5 [facility] [place] [facility] Comment on above: Performed By: #### C KIMBERLY CP, TSH #### [facility] [address] [place] [address] [employer] Supervisor: Beau Troncoso MD Alkaline Phos 67 U/L Normal 35-104 [facility] [place] [facility] Comment on above: Performed By: #### C KIMBERLY CP, TSH #### [facility] [place] [address] [employer] Supervisor: Beau Troncoso MD ALT [Catalytic activity/Vol] 13 U/L Normal 5-33 [facility] [place] [facility] Comment on above: Performed By: #### C KIMBERLY CP, TSH #### [facility] [address] [place] [address] [employer] Supervisor: Beau Troncoso MD Anion gap [Moles/Vol] 8 mmol/L Low 9-17 [facility] Comment on above: Performed By: #### C KIMBERLY CP, TSH #### [facility] [address] [place] [address] [employer] Supervisor: Beau Troncoso MD AST [Catalytic activity/Vol] 12 U/L Normal <32 [facility] [place] [facility] Comment on above: Performed By: #### C KIMBERLY CP, TSH #### [facility] [address] [place] [address] [employer] Supervisor: Beau Troncoso MD Bilirubin Ql (U) 0.30 mg/dL Normal 0.3-1.2 [facility] Comment on above: Performed By: #### C KIMBERLY CP, TSH #### [facility] [address] [place] [address] [employer] Supervisor: Beau Troncoso MD Calcium [Mass/Vol] 8.7 mg/dL Normal 8.6-10.4 [facility] [place] [facility] Comment on above: Performed By: #### C KIMBERLY CP, TSH #### [facility] [address] [place] [address] [employer] Supervisor: Beau Troncoso MD Chloride [Moles/Vol] 102 mmol/L Normal 98-107 [facility] Comment on above: Performed By: #### C MEERA HARRIS, TSH #### [facility] [address] [place] [address] [employer] Supervisor: Beau Troncoso MD CO2 [Moles/Vol] 32 mmol/L High 20-31 [facility] [place] [facility] Comment on above: Performed By: #### C KIMBERLY CP, TSH #### [facility] [address] [place] [address] [employer] Supervisor: Beau Troncoso MD Creatinine [Mass/Vol] 0.78 mg/dL Normal 0.50-0.90 [facility] Comment on above: Performed By: #### C BC, CP, TSH #### [facility] [address] [place] [address] [employer] Supervisor: Beau Troncoso MD GFR, Amer >60 Normal >60 [facility] Comment on above: Performed By: #### C BC, CP, TSH #### [facility] [address] [place] [address] [employer] Supervisor: Beau Troncoso MD GFR,non Amer >60 Normal >60 [facility] Comment on above: Performed By: #### C BC, CP, TSH #### [facility] [address] [place] [address] [employer] Supervisor: Beau Troncoso MD Glucose [Mass/Vol] 86 mg/dL Normal 70-99 [facility] [place] [facility] Comment on above: Performed By: #### C BC, CP, TSH #### [facility] [address] [place] [address] [employer] Supervisor: Beau Troncoso MD Potassium [Moles/Vol] 4.7 mmol/L Normal 3.7-5.3 [facility] Comment on above: Performed By: #### C BC, CP, TSH #### [facility] [address] [place] [address] [employer] Supervisor: Beau Troncoso MD Protein [Mass/Vol] 6.8 g/dL Normal 6.4-8.3 [facility] [place] Comment on above: Performed By: #### C BC, CP, TSH #### [facility] [address] [place] [address] Core Assembly Supervisor: Beau Troncoso MD Sodium [Moles/Vol] 142 mmol/L Normal 135-144 [facility] [place] Comment on above: Performed By: #### C BC, CP, TSH #### [facility] [address] [place] [id number] [employer] Supervisor: Beau Troncoso MD Urea nitrogen [Mass/Vol] 22 mg/dL Normal 8-23 [facility] [place] Comment on above: Performed By: #### C MEERA HARRIS, TSH #### [facility] [address], [place] [id number] [employer] Assembly Supervisor: Beau Troncoso MD BUN/CRE Ratio NOT REPORTED Normal 9-20 [facility] [place] Comment on above: Performed By: #### C MEERA HARRIS, TSH #### [facility] [address], [place] [id number] [employer] Assembly Supervisor: Beau Troncoso MD Staging: NOT REPORTED Normal [facility] [place] Comment on above: Performed By: #### C MEERA HARRIS, TSH #### [facility] [address], [place] [id number] [employer] Assembly Supervisor: Beau Troncoso MD [facility] Metabolic [facility] 04-16-2020 Albumin [Mass/Vol] 4 g/dL 3.5 - 5.2 g/dL [place] Albumin/Globulin [Mass ratio] 1.4 {ratio} [place] ALP [Catalytic activity/Vol] 67 U/L 35 - 104 U/L [place] ALT [Catalytic activity/Vol] 13 U/L 5 - 33 U/L [place] Anion gap [Moles/Vol] 8 mmol/L Low 9 - 17 mmol/L [place] AST [Catalytic activity/Vol] 12 U/L <32 [place] Bilirubin Ql (U) 0.30 mg/dL 0.3 - 1.2 mg/dL [place] Bun/Cre Ratio NOT REPORTED [place] Calcium [Mass/Vol] 8.7 mg/dL 8.6 - 10. 4 mg/dL [place] Chloride [Moles/Vol] 102 mmol/L 98 - 10 7 mmol/L [place] CO2 [Moles/Vol] 32 mmol/L High 20 - 31 mmol/L [place] Creatinine [Mass/Vol] 0.78 mg/dL 0.5 - 0.9 mg/dL [place] GFR >60 >60 mL/min [place] GFR Non- >60 >60 mL/min [place] GFR/1.73 sq M predicted among non-blacks MDRD (S/P/Bld) [Vol rate/Area] [place] Comment on above: Average GFR for 60-6 9 years old: 85 mL/min/1.73sq m Chronic Kidney Disease: <60 mL/min/1.73sq m Kidney failure: <15 mL/min/1.73sq m eGFR calculated using average adult body mass. Additional eGFR calculator available at: http://www.GroupTie/Veebox_crcl_2012.htm GFR/1.73 sq M predicted among non-blacks MDRD (S/P/Bld) [Vol rate/Area] NOT REPORTED [place] Glucose [Mass/Vol] 86 mg/dL 70 - 99 mg/dL [place] Interpretation and review of laboratory results Abnormal [place] Potassium [Moles/Vol] 4.7 mmol/L 3.7 - 5.3 mmol/L [place] Protein [Mass/Vol] 6.8 g/dL 6.4 - 8.3 g/dL [place] Sodium [Moles/Vol] 142 mmol/L 135 - 144 mmol/L [place] Urea nitrogen [Mass/Vol] 22 mg/dL 8 - 23 mg/dL [place] Hemoglobin A1Con 04-16-2020 Glucose [Mass/Vol] 126 mg/dL [place] Comment on above: The ADA and AACC rec ommend providing the estimated average glucose result to permit better patient understanding of their HBA1c result. HbA1c (Bld) [Mass fraction] 6.0 % 4 - 6 % [place] TSH without Reflexon 020 TSH Qn 0.89 m[IU]/L [place] Thyroid Stim. Horm.on 2019 TSH Qn 0.89 m[IU]/L Normal 0.30-5.00 [facility] [place] Comment on above: Performed By: #### C BC, CP, TSH #### [place] [id number] [place] [id number] [employer] Assembly Supervisor: Beau Troncoso MD MRI SHOULDER RIGHT WO [...] Blas Godwin MD 03/25/20 Final result Normal [facility] 1. Moderate acromioclavicular osteoarthritis with reactive edema in the distal clavicle and acromion. 2. Minimal 2 mm interstitial tear of the infraspinatus tendon. Mild bursal surface fraying of the supraspinatus and infraspinatus tendons. No additional rotator cuff tear. 3. No biceps tear. [facility], [place] EXAMINATION: MRI OF THE RIGHT [...] are without obstructing or space occupying lesions. [facility] [place], [place] Jose Antonio, Mhpn Incoming Radiant Results From [employer] - 03/25/2020 4:57 PM EDT EXAMINATION: MRI [...] rotator cuff tear. 3. No biceps tear. [place] C-Reactive Proteinon 11-01-2 020 CRP [Mass/Vol] 13 mg/L High 0 - 5 mg/L [place], [place] CBC Auto Differentialon 10-20 Basophils (Bld) [#/Vol] 0.10 10*3/uL [place] Basophils/100 WBC (Bld) 1 % 0 - 2 % [place] Differential Type NOT REPORTED [place] Eosinophils (Bld) [#/Vol] 0.20 10*3/uL [place] Eosinophils/100 WBC (Bld) 3 % 0 - 4 % [place] Erythrocyte distribution width (RBC) [Ratio] 13.0 % 11.5 - 14.9 % [place] Hematocrit (Bld) [Volume fraction] 42.0 % 36 - 46 % [place] Hemoglobin (Bld) [Mass/Vol] 13.8 g/dL 12 - 16 g/dL [place] Interpretation and review of laboratory results Abnormal [place] Lymphocytes (Bld) [#/Vol] 1.10 10*3/uL [place] Lymphocytes/100 WBC (Bld) 13 % Low 24 - 44 % [place] MCH (RBC) [Entitic mass] 30.5 pg 26 - 34 pg [place] MCHC (RBC) [Mass/Vol] 32.7 g/dL 31 - 3 7 g/dL [place] MCV (RBC) [Entitic vol] 93.1 fL 80 - 100 fL [place] Monocytes (Bld) [#/Vol] 0.50 10*3/uL [place] Monocytes/100 WBC (Bld) 5 % 1 - 7 % [place] Platelet mean volume (Bld) [Entitic vol] 6.9 fL 6 - 12 fL [place] Platelets (Bld) [#/Vol] 382 10*3/uL [place] Platelets (Bld) [#/Vol] NOT REPORTED [place] RBC (Bld) [#/Vol] 4.51 10*6/uL 4 - 5.2 m/uL [place] RBC morphology finding Nom (Bld) NOT REPORTED [place] Segmented neutrophils/100 WBC (Bld) 78 % High 36 - 66 % [place] Segs Absolute 6.90 [place] WBC (Bld) [#/Vol] 8.8 10*3/uL [place] WBC (Bld) [#/Vol] NOT REPORTED per 100 WBC [place] WBC Morphology NOT REPORTED [place] Comprehensive Metabolic Pane deven 11-02-2019 Albumin [Mass/Vol] 4.1 g/dL 3.5 - 5.2 g/dL [place] Albumin/Globulin [Mass ratio] NOT REPORTED [place] ALP [Catalytic activity/Vol] 61 U/L 35 - 104 U/L [place] ALT [Catalytic activity/Vol] 13 U/L 5 - 33 U/L [place] Anion gap [Moles/Vol] 7 mmol/L Low 9 - 17 mmol/L [place] AST [Catalytic activity/Vol] 12 U/L <32 [place] Bilirubin Ql (U) 0.29 mg/dL Low 0.3 - 1.2 mg/dL [place] Bun/Cre Ratio NOT REPORTED [place] Calcium [Mass/Vol] 8.7 mg/dL 8.6 - 10. 4 mg/dL [place] Chloride [Moles/Vol] 101 mmol/L 98 - 10 7 mmol/L [place] CO2 [Moles/Vol] 31 mmol/L 20 - 31 mmol/L [place] Creatinine [Mass/Vol] 0.72 mg/dL 0.5 - 0.9 mg/dL [place] GFR >60 >60 mL/min [place] GFR Non- >60 >60 mL/min [place] GFR/1.73 sq M predicted among non-blacks MDRD (S/P/Bld) [Vol rate/Area] NOT REPORTED [place] GFR/1.73 sq M predicted among non-blacks MDRD (S/P/Bld) [Vol rate/Area] [place] Comment on above: Average GFR for 60-6 9 years old: 85 mL/min/1.73sq m Chronic Kidney Disease: <60 mL/min/1.73sq m Kidney failure: <15 mL/min/1.73sq m eGFR calculated using average adult body mass. Additional eGFR calculator available at: http://www.GroupTie/Veebox_crcl_2012.htm Glucose [Mass/Vol] 118 mg/dL High 70 - 99 mg/dL [place] Potassium [Moles/Vol] 4.8 mmol/L 3.7 - 5.3 mmol/L [place] Protein [Mass/Vol] 7.5 g/dL 6.4 - 8.3 g/dL [place] Sodium [Moles/Vol] 139 mmol/L 135 - 144 mmol/L [place] Urea nitrogen [Mass/Vol] 21 mg/dL 8 - 23 mg/dL [place] D-Dimer, Quantitativeon 10-20 D-Dimer, Quant <0.27 [place] Comment on above: When combined with [...] LD 173 U/L 135 - 214 U/L [place] Lactic Acid, Plasmaon 2019 Lactate [Moles/Vol] 0.5 mmol/L 0.5 - 2. 2 mmol/L [place] Lactic Acid, Whole Blood NOT REPORTED 0.7 - 2.1 mmol/L [place] Otheron 11-02-2019 Interpretation and review of laboratory results Abnormal [place] Immature granulocytes (Bld) [#/Vol] NOT REPORTED [place] Troponinon 11-02-2019 Troponin I.cardiac [Mass/Vol] NOT REPORTED [place] Troponin T.cardiac [Mass/Vol] NOT REPORTED <0.03 ng/mL [place] Troponin, High Sensitivity <6 0 - 14 ng/L [place] Comment on above: High Sensitivity Troponin values cannot be compared with other Troponin methodologies. Patients with high levels of Biotin oral intake (i.e >5mg/day) may have falsely decreased Troponin levels. Samples collected within 8 hours of biotin intake may require additional information for diagnosis. Troponin I.cardiac [Mass/Vol] NOT REPORTED [place] Troponin T.cardiac [Mass/Vol] NOT REPORTED <0.03 ng/mL [place] Troponin, High Sensitivity <6 0 - 14 ng/L [place] Comment on above: High Sensitivity [...] unremarkable. The extrathoracic soft tissues are unremarkable. [place] Cardiomegaly and chronic pulmonary change without acute pulmonary process. [place], [place] Jose Antonio, Mhpn Incoming Radiant Results From [employer] - 11/02/2019 10:59 AM EDT EXAMINATION: ONE [...] chronic pulmonary change without acute pulmonary process. [place] B.A.L. CELL COUNTon 10-07-19 20 Fluid Diff Comment Reviewed by pathologist: Justin Chambers D.O. [place], [place] Comment on above: SLIDE REVIEWED. MACR OPHAGES AND MIXED INFLAMMATORY CELLS NOTED. CORRECTED ON 10/06 AT 1306: PREVIOUSLY REPORTED TO BE REVIEWED BY PATHOLOGIST RBC (Bld) [#/Vol] 913 /mm3 [place], [place] Specimen type Nom (Spec) .BRONCHIAL WASHINGS [place] WBC (Bld) [#/Vol] 38 /mm3 [place] Culture, Respiratoryon 10-06 Culture NORMAL RESPIRATORY CHERYL MODERATE GROWTH [place] Direct Exam FEW NEUTROPHILS Abnormal [place] Interpretation and review of laboratory results Abnormal [place] Special Requests NOT REPORTED [place] Specimen Description .BRONCHIAL WASHINGS [place] Fungal stainon 10-07-2019 Direct Exam NO FUNGAL ELEMENTS SEEN [place] Special Requests NOT REPORTED [place] Specimen Description .BRONCHIAL WASHINGS [place] Otheron 10-07-2019 Direct Exam Positive Abnormal [place], [place] CBC with DIFFon 10-06-2019 Basophils (Bld) [#/Vol] 0.14 10*3/uL [place], [place] Basophils/100 WBC (Bld) 1 % 0 - 2 % [place] Differential Type NOT REPORTED [place] Eosinophils (Bld) [#/Vol] 0.00 10*3/uL [place] Eosinophils/100 WBC (Bld) 0 % 0 - 4 % [place] Erythrocyte distribution width (RBC) [Ratio] 13.4 % 11.5 - 14.9 % [place] Hematocrit (Bld) [Volume fraction] 40.9 % 36 - 46 % [place] Hemoglobin (Bld) [Mass/Vol] 13.5 g/dL 12 - 16 g/dL [place] Interpretation and review of laboratory results Abnormal [place] Lymphocytes (Bld) [#/Vol] 1.15 10*3/uL [place] Lymphocytes/100 WBC (Bld) 8 % Low 24 - 44 % [place] MCH (RBC) [Entitic mass] 30.6 pg 26 - 34 pg [place] MCHC (RBC) [Mass/Vol] 33.0 g/dL 31 - 3 7 g/dL [place] MCV (RBC) [Entitic vol] 92.7 fL 80 - 100 fL [place], [place] Monocytes (Bld) [#/Vol] 0.29 10*3/uL [place], [place] Monocytes/100 WBC (Bld) 2 % 1 - 7 % [place] Morphology Den (Bld) [Interp] Normal [place] Platelet mean volume (Bld) [Entitic vol] 7.3 fL 6 - 12 fL [place] Platelets (Bld) [#/Vol] NOT REPORTED [place], [place] Platelets (Bld) [#/Vol] 419 10*3/uL [place] RBC (Bld) [#/Vol] 4.41 10*6/uL 4 - 5.2 m/uL [place] RBC morphology finding Nom (Bld) NOT REPORTED [place] Segmented neutrophils/100 WBC (Bld) 89 % High 36 - 66 % [place] Segs Absolute 12.82 High [place] WBC (Bld) [#/Vol] NOT REPORTED per 100 WBC [place] WBC (Bld) [#/Vol] 14.4 10*3/uL [place], [place] WBC Morphology NOT REPORTED [place] Cell Count with Diff, BALon 10-06-2019 BAL Diff Comment TO BE REVIEWED BY PATHOLOGIST [place], [place] Columnar Epis BAL PRESENT [place] Eosinophils/100 WBC (Bld) 4 % High 0 - 1 % [place] Interpretation and review of laboratory results Abnormal [place] Lymphocytes/100 WBC (Bld) 13 % High 8 - 12 % [place] Macrophages, BAL 61 % Low 85 - 95 % [place] Segmented neutrophils/100 WBC (Bld) 22 % High 0 - 10 % [place] Comp Metabolic Profon 2019 Albumin [Mass/Vol] 3.5 g/dL 3.5 - 5.2 g/dL [place] Albumin/Globulin [Mass ratio] NOT REPORTED [place] ALP [Catalytic activity/Vol] 49 U/L 35 - 104 U/L [place] ALT [Catalytic activity/Vol] 10 U/L 5 - 33 U/L [place] Anion gap [Moles/Vol] 12 mmol/L 9 - 17 mmol/L [place] AST [Catalytic activity/Vol] 12 U/L <32 [place] Bilirubin Ql (U) 0.30 mg/dL 0.3 - 1.2 mg/dL [place] Bun/Cre Ratio NOT REPORTED [place] Calcium [Mass/Vol] 9.0 mg/dL 8.6 - 10. 4 mg/dL [place] Chloride [Moles/Vol] 100 mmol/L 98 - 10 7 mmol/L [place] CO2 [Moles/Vol] 26 mmol/L 20 - 31 mmol/L [place] Creatinine [Mass/Vol] 0.72 mg/dL 0.5 - 0.9 mg/dL [place] GFR >60 >60 mL/min [place] GFR Non- >60 >60 mL/min [place] GFR/1.73 sq M predicted among non-blacks MDRD (S/P/Bld) [Vol rate/Area] [place], [place] Comment on above: Average GFR for 60-6 9 years old: 85 mL/min/1.73sq m Chronic Kidney Disease: <60 mL/min/1.73sq m Kidney failure: <15 mL/min/1.73sq m eGFR calculated using average adult body mass. Additional eGFR calculator available at: http://www.GroupTie/multiple_crcl_2012.htm GFR/1.73 sq M predicted among non-blacks MDRD (S/P/Bld) [Vol rate/Area] NOT REPORTED [place], [place] Glucose [Mass/Vol] 145 mg/dL High 70 - 99 mg/dL [place] Potassium [Moles/Vol] 4.1 mmol/L 3.7 - 5.3 mmol/L [place] Protein [Mass/Vol] 6.7 g/dL 6.4 - 8.3 g/dL [place] Sodium [Moles/Vol] 138 mmol/L 135 - 144 mmol/L [place] Urea nitrogen [Mass/Vol] 23 mg/dL 8 - 23 mg/dL [place] Culture, Virus, Respiratoryo n 10-06-2019 Culture VIRAL RESPIRATORY CULTURES ARE NOT LONGER PERFORMED [place] Special Requests NOT REPORTED [place] Specimen Description .BRONCHIAL WASHINGS [place] Otheron 10-06-2019 Interpretation and review of laboratory results Abnormal [place] Immature granulocytes (Bld) [#/Vol] NOT REPORTED [place] T4, Freeon 10-06-2019 Interpretation and review of laboratory results Abnormal [place] Thyroxine, Free 2.03 ng/dL High 0.93 - 1.7 ng/dL [place] TSH with Reflexon 10-06-2019 TSH Qn 0.10 m[IU]/L [place] Basic Metabolic Panel w/ Ref alvin to MGon 10-05-2019 Anion gap [Moles/Vol] 9 mmol/L 9 - 17 mmol/L [place] Bun/Cre Ratio NOT REPORTED [place] Calcium [Mass/Vol] 8.8 mg/dL 8.6 - 10. 4 mg/dL [place] Chloride [Moles/Vol] 102 mmol/L 98 - 10 7 mmol/L [place] CO2 [Moles/Vol] 29 mmol/L 20 - 31 mmol/L [place] Creatinine [Mass/Vol] 0.72 mg/dL 0.5 - 0.9 mg/dL [place] GFR >60 >60 mL/min [place] GFR Non- >60 >60 mL/min [place] GFR/1.73 sq M predicted among non-blacks MDRD (S/P/Bld) [Vol rate/Area] NOT REPORTED [place] GFR/1.73 sq M predicted among non-blacks MDRD (S/P/Bld) [Vol rate/Area] [place], [place] Comment on above: Average GFR for 60-6 9 years old: 85 mL/min/1.73sq m Chronic Kidney Disease: <60 mL/min/1.73sq m Kidney failure: <15 mL/min/1.73sq m eGFR calculated using average adult body mass. Additional eGFR calculator available at: http://www.GroupTie/multiple_crcl_2012.htm Glucose [Mass/Vol] 97 mg/dL 70 - 99 mg/dL [place] Potassium [Moles/Vol] 4.3 mmol/L 3.7 - 5.3 mmol/L [place] Sodium [Moles/Vol] 140 mmol/L 135 - 144 mmol/L [place] Urea nitrogen [Mass/Vol] 18 mg/dL 8 - 23 mg/dL [place] CBC with DIFFon 10-05-2019 Basophils (Bld) [#/Vol] 0.10 10*3/uL [place] Basophils/100 WBC (Bld) 1 % 0 - 2 % [place] Differential Type NOT REPORTED [place] Eosinophils (Bld) [#/Vol] 0.50 10*3/uL [place] Eosinophils/100 WBC (Bld) 6 % High 0 - 4 % [place] Erythrocyte distribution width (RBC) [Ratio] 13.4 % 11.5 - 14.9 % [place] Hematocrit (Bld) [Volume fraction] 40.2 % 36 - 46 % [place] Hemoglobin (Bld) [Mass/Vol] 13.4 g/dL 12 - 16 g/dL [place] Interpretation and review of laboratory results Abnormal [place] Lymphocytes (Bld) [#/Vol] 2.50 10*3/uL [place] Lymphocytes/100 WBC (Bld) 30 % 24 - 44 % [place] MCH (RBC) [Entitic mass] 30.5 pg 26 - 34 pg [place] MCHC (RBC) [Mass/Vol] 33.3 g/dL 31 - 3 7 g/dL [place] MCV (RBC) [Entitic vol] 91.5 fL 80 - 100 fL [place] Monocytes (Bld) [#/Vol] 0.90 10*3/uL [place] Monocytes/100 WBC (Bld) 11 % High 1 - 7 % [place] Platelet mean volume (Bld) [Entitic vol] 6.9 fL 6 - 12 fL [place] Platelets (Bld) [#/Vol] 407 10*3/uL [place] Platelets (Bld) [#/Vol] NOT REPORTED [place] RBC (Bld) [#/Vol] 4.39 10*6/uL 4 - 5.2 m/uL [place] RBC morphology finding Nom (Bld) NOT REPORTED [place] Segmented neutrophils/100 WBC (Bld) 52 % 36 - 66 % [place] Segs Absolute 4.20 [facility] [place] WBC (Bld) [#/Vol] NOT REPORTED per 100 WBC [place] WBC (Bld) [#/Vol] 8.1 10*3/uL [place] WBC Morphology NOT REPORTED [place] Otheron 10-05-2019 Immature granulocytes (Bld) [#/Vol] NOT REPORTED 0 % [place] XR CHEST PORTABLEon 10-05-19 20 [...] could better evaluate lung parenchyma if indicated. [place] Jose Antonio, Mhpn Incoming Radiant Results From [employer] - 10/05/2019 6:01 PM EDT EXAMINATION: ONE [...] base. Follow up [facility] resolution [facility]. [facility] Patchy airspace dise ase representing atelectasis or infiltrate in the right lung base. Follow up to resolution is suggested. [facility] CHEST PORTABLEon 09-15-19 20 Perihilar and suprahilar airspace opacities could represent interstitial edema versus developing airspace disease. Please correlate exam findings. Follow-up to assure resolution following medical treatment course recommended [facility] [place] EXAMINATION: ONE XRA Y VIEW OF THE CHEST 09/15/2019 5:51 pm COMPARISON: 08/25/2019 HISTORY: ORDERING SYSTEM PROVIDED HISTORY: cough TECHNOLOGIST PROVIDED HISTORY: cough Reason for Exam: cough Acuity: Unknown Type of Exam: Unknown FINDINGS: The cardiomediastinal silhouette is normal in size and contour. Perihilar edema. Patchy suprahilar airspace opacities.. No pleural effusion or pneumothorax is present. [facility] [place] Jose Antonio, Mhpn Incoming Radiant Results From [employer] - 09/15/2019 6:05 PM EDT EXAMINATION: ONE [...] assure resolution following medical treatment course recommended [facility] CBC auto differentialon Basophils (Bld) [#/Vol] 0.00 10*3/uL [place] Basophils/100 WBC (Bld) 0 % 0 - 2 % [place] Differential Type NOT REPORTED [place] Eosinophils (Bld) [#/Vol] 0.00 10*3/uL [place] Eosinophils/100 WBC (Bld) 0 % 0 - 4 % [place] Erythrocyte distribution width (RBC) [Ratio] 13.8 % 11.5 - 14.9 % [place] Hematocrit (Bld) [Volume fraction] 39.9 % 36 - 46 % [place] Hemoglobin (Bld) [Mass/Vol] 13.1 g/dL 12 - 16 g/dL [place] Interpretation and review of laboratory results Abnormal [place] Lymphocytes (Bld) [#/Vol] 1.00 10*3/uL [place] Lymphocytes/100 WBC (Bld) 8 % Low 24 - 44 % [place] MCH (RBC) [Entitic mass] 30.8 pg 26 - 34 pg [place] MCHC (RBC) [Mass/Vol] 32.9 g/dL 31 - 3 7 g/dL [place] MCV (RBC) [Entitic vol] 93.5 fL 80 - 100 fL [place] Monocytes (Bld) [#/Vol] 0.90 10*3/uL [place] Monocytes/100 WBC (Bld) 7 % 1 - 7 % [place] Platelet mean volume (Bld) [Entitic vol] 6.7 fL 6 - 12 fL [place] Platelets (Bld) [#/Vol] NOT REPORTED [place] Platelets (Bld) [#/Vol] 341 10*3/uL [place] RBC (Bld) [#/Vol] 4.27 10*6/uL 4 - 5.2 m/uL [place] RBC morphology finding Nom (Bld) NOT REPORTED [place] Segmented neutrophils/100 WBC (Bld) 85 % High 36 - 66 % [place] Segs Absolute 11.30 [place] WBC (Bld) [#/Vol] NOT REPORTED per 100 WBC [place] WBC (Bld) [#/Vol] 13.2 10*3/uL [place] WBC Morphology NOT REPORTED [place] Comprehensive Metabolic Pane l w/ Reflex to MGon 08-29-2019 Albumin [Mass/Vol] 3.3 g/dL Low 3.5 - 5.2 g/dL [place] Albumin/Globulin [Mass ratio] NOT REPORTED [place] ALP [Catalytic activity/Vol] 51 U/L 35 - 104 U/L [place] ALT [Catalytic activity/Vol] 28 U/L 5 - 33 U/L [place] Anion gap [Moles/Vol] 10 mmol/L 9 - 17 mmol/L [place] AST [Catalytic activity/Vol] 19 U/L <32 [place] Bilirubin Ql (U) 0.23 mg/dL Low 0.3 - 1.2 mg/dL [place] Bun/Cre Ratio NOT REPORTED [place] Calcium [Mass/Vol] 7.9 mg/dL Low 8.6 - 10. 4 mg/dL [place] Chloride [Moles/Vol] 104 mmol/L 98 - 10 7 mmol/L [place] CO2 [Moles/Vol] 28 mmol/L 20 - 31 mmol/L [place] Creatinine [Mass/Vol] 0.73 mg/dL 0.5 - 0.9 mg/dL [place] GFR >60 >60 mL/min [place] GFR Non- >60 >60 mL/min [place] GFR/1.73 sq M predicted among non-blacks MDRD (S/P/Bld) [Vol rate/Area] [place] Comment on above: Average GFR for 60-6 9 years old: 85 mL/min/1.73sq m Chronic Kidney Disease: <60 mL/min/1.73sq m Kidney failure: <15 mL/min/1.73sq m eGFR calculated using average adult body mass. Additional eGFR calculator available at: http://www.GroupT[employer]/multiple_crcl_2012.htm GFR/1.73 sq M predicted among non-blacks MDRD (S/P/Bld) [Vol rate/Area] NOT REPORTED [place] Glucose [Mass/Vol] 125 mg/dL High 70 - 99 mg/dL [place] Interpretation and review of laboratory results Abnormal [place] Potassium [Moles/Vol] 4.5 mmol/L 3.7 - 5.3 mmol/L [place] Protein [Mass/Vol] 5.9 g/dL Low 6.4 - 8.3 g/dL [place] Sodium [Moles/Vol] 142 mmol/L 135 - 144 mmol/L [place] Urea nitrogen [Mass/Vol] 28 mg/dL High 8 - 23 mg/dL [place] Otheron 08-29-2019 Immature granulocytes (Bld) [#/Vol] NOT REPORTED [place] CBC auto differentialon Absolute Bands # 0.14 [place] Bands 1 % 0 - 10 % [place] Basophils (Bld) [#/Vol] 0.00 10*3/uL [place] Basophils/100 WBC (Bld) 0 % 0 - 2 % [place] Differential Type NOT REPORTED [place] Eosinophils (Bld) [#/Vol] 0.00 10*3/uL [place] Eosinophils/100 WBC (Bld) 0 % 0 - 4 % [place] Erythrocyte distribution width (RBC) [Ratio] 13.8 % 11.5 - 14.9 % [place] Hematocrit (Bld) [Volume fraction] 40.1 % 36 - 46 % [place] Hemoglobin (Bld) [Mass/Vol] 13.2 g/dL 12 - 16 g/dL [place] Interpretation and review of laboratory results Abnormal [place] Lymphocytes (Bld) [#/Vol] 0.85 10*3/uL Low [place] Lymphocytes/100 WBC (Bld) 6 % Low 24 - 44 % [place] MCH (RBC) [Entitic mass] 30.8 pg 26 - 34 pg [place] MCHC (RBC) [Mass/Vol] 32.9 g/dL 31 - 3 7 g/dL [place] MCV (RBC) [Entitic vol] 93.5 fL 80 - 100 fL [place] Monocytes (Bld) [#/Vol] 0.99 10*3/uL [place] Monocytes/100 WBC (Bld) 7 % 1 - 7 % [place] Morphology Den (Bld) [Interp] Normal [place] Platelet mean volume (Bld) [Entitic vol] 6.7 fL 6 - 12 fL [place] Platelets (Bld) [#/Vol] 339 10*3/uL [place] Platelets (Bld) [#/Vol] NOT REPORTED [place] RBC (Bld) [#/Vol] 4.29 10*6/uL 4 - 5.2 m/uL [place] RBC morphology finding Nom (Bld) NOT REPORTED [place] Segmented neutrophils/100 WBC (Bld) 86 % High 36 - 66 % [place] Segs Absolute 12.22 High [place] WBC (Bld) [#/Vol] 14.2 10*3/uL [place] WBC (Bld) [#/Vol] NOT REPORTED per 100 WBC [place] WBC Morphology NOT REPORTED [place], [place] Comprehensive Metabolic Pane l w/ Reflex to MGon 08-28-2019 Albumin [Mass/Vol] 3.5 g/dL 3.5 - 5.2 g/dL [place] Albumin/Globulin [Mass ratio] NOT REPORTED [place] ALP [Catalytic activity/Vol] 52 U/L 35 - 104 U/L [place] ALT [Catalytic activity/Vol] 17 U/L 5 - 33 U/L [place] Anion gap [Moles/Vol] 10 mmol/L 9 - 17 mmol/L [place] AST [Catalytic activity/Vol] 13 U/L <32 [place] Bilirubin Ql (U) 0.16 mg/dL Low 0.3 - 1.2 mg/dL [place] Bun/Cre Ratio NOT REPORTED [facility] [place] Calcium [Mass/Vol] 7.8 mg/dL Low 8.6 - 10. 4 mg/dL [place] Chloride [Moles/Vol] 104 mmol/L 98 - 10 7 mmol/L [place] CO2 [Moles/Vol] 29 mmol/L 20 - 31 mmol/L [place] Creatinine [Mass/Vol] 0.82 mg/dL 0.5 - 0.9 mg/dL [place] GFR >60 >60 mL/min [place] GFR Non- >60 >60 mL/min [place] GFR/1.73 sq M predicted among non-blacks MDRD (S/P/Bld) [Vol rate/Area] [place], [place] Comment on above: Average GFR for 60-6 9 years old: 85 mL/min/1.73sq m Chronic Kidney Disease: <60 mL/min/1.73sq m Kidney failure: <15 mL/min/1.73sq m eGFR calculated using average adult body mass. Additional eGFR calculator available at: http://www.GroupTie/multiple_crcl_2012.htm GFR/1.73 sq M predicted among non-blacks MDRD (S/P/Bld) [Vol rate/Area] NOT REPORTED [place] Glucose [Mass/Vol] 153 mg/dL High 70 - 99 mg/dL [place] Interpretation and review of laboratory results Abnormal [place] Potassium [Moles/Vol] 4.4 mmol/L 3.7 - 5.3 mmol/L [place] Protein [Mass/Vol] 6.0 g/dL Low 6.4 - 8.3 g/dL [place] Sodium [Moles/Vol] 143 mmol/L 135 - 144 mmol/L [place] Urea nitrogen [Mass/Vol] 21 mg/dL 8 - 23 mg/dL [place] Otheron 08-28-2019 Immature granulocytes (Bld) [#/Vol] NOT REPORTED 0 % [place] Basic Metabolic Panel w/ Ref alvin to MGon 08-26-2019 Anion gap [Moles/Vol] 10 mmol/L 9 - 17 mmol/L [place] Bun/Cre Ratio NOT REPORTED [facility] [place] Calcium [Mass/Vol] 8.1 mg/dL Low 8.6 - 10. 4 mg/dL [place] Chloride [Moles/Vol] 104 mmol/L 98 - 10 7 mmol/L [place] CO2 [Moles/Vol] 26 mmol/L 20 - 31 mmol/L [place] Creatinine [Mass/Vol] 0.78 mg/dL 0.5 - 0.9 mg/dL [place] GFR >60 >60 mL/min [place] GFR Non- >60 >60 mL/min [place] GFR/1.73 sq M predicted among non-blacks MDRD (S/P/Bld) [Vol rate/Area] [place] Comment on above: Average GFR for 60-6 9 years old: 85 mL/min/1.73sq m Chronic Kidney Disease: <60 mL/min/1.73sq m Kidney failure: <15 mL/min/1.73sq m eGFR calculated using average adult body mass. Additional eGFR calculator available at: http://www.GroupTie/multiple_crcl_2012.htm GFR/1.73 sq M predicted among non-blacks MDRD (S/P/Bld) [Vol rate/Area] NOT REPORTED [place] Glucose [Mass/Vol] 179 mg/dL High 70 - 99 mg/dL [place] Interpretation and review of laboratory results Abnormal [place] Potassium [Moles/Vol] 5.0 mmol/L 3.7 - 5.3 mmol/L [place] Sodium [Moles/Vol] 140 mmol/L 135 - 144 mmol/L [place] Urea nitrogen [Mass/Vol] 20 mg/dL 8 - 23 mg/dL [place] CBCon 08-26-2019 Erythrocyte distribution width (RBC) [Ratio] 13.8 % 11.5 - 14.9 % [place] Hematocrit (Bld) [Volume fraction] 41.6 % 36 - 46 % [place] Hemoglobin (Bld) [Mass/Vol] 14.1 g/dL 12 - 16 g/dL [place] MCH (RBC) [Entitic mass] 31.3 pg 26 - 34 pg [place] MCHC (RBC) [Mass/Vol] 33.9 g/dL 31 - 3 7 g/dL [place] MCV (RBC) [Entitic vol] 92.3 fL 80 - 100 fL [place] Platelet mean volume (Bld) [Entitic vol] 6.9 fL 6 - 12 fL [place] Platelets (Bld) [#/Vol] 316 10*3/uL [place] RBC (Bld) [#/Vol] 4.51 10*6/uL 4 - 5.2 m/uL [place] WBC (Bld) [#/Vol] 6.9 10*3/uL [place] WBC (Bld) [#/Vol] NOT REPORTED per 100 WBC [place] EKG 12 [place] 08-26-2019 Atrial Rate 133 BPM [place] P [place] 44 degrees [place] P-R Interval 128 ms [place] Q-T Interval 282 ms [place] QRS Duration 84 ms [place] QTc Calculation (Bazett) 419 ms [place] R [place] 51 degrees [place] T [place] 16 degrees [place] Ventricular Rate 133 BPM [place] Sinus tachycardia Otherwise normal ECG No previous ECGs available [place], [place] Jose Antonio, Mhpn Incoming E kg Results From [facility] [place] - 08/26/2019 9:03 AM EST Sinus tachycardia Otherwise normal ECG No previous ECGs available [place] APTTon 08-25-2019 aPTT Coag (Bld) [Time] 30.1 s [place] Comment on above: IV Heparin Therapy Range: 62.0-94.0 Amylaseon 08-25-2019 Amylase [Catalytic activity/Vol] 37 U/L 28 - 100 U/L [place] Basic Metabolic Panel w/ Ref alvin to MGon 08-25-2019 Anion gap [Moles/Vol] 11 mmol/L 9 - 17 mmol/L [place] Bun/Cre Ratio NOT REPORTED [place] Calcium [Mass/Vol] 8.6 mg/dL 8.6 - 10. 4 mg/dL [place] Chloride [Moles/Vol] 97 mmol/L Low 98 - 10 7 mmol/L [place] CO2 [Moles/Vol] 26 mmol/L 20 - 31 mmol/L [place] Creatinine [Mass/Vol] 0.81 mg/dL 0.5 - 0.9 mg/dL [place] GFR >60 >60 mL/min [place] GFR Non- >60 >60 mL/min [place] GFR/1.73 sq M predicted among non-blacks MDRD (S/P/Bld) [Vol rate/Area] NOT REPORTED [place] GFR/1.73 sq M predicted among non-blacks MDRD (S/P/Bld) [Vol rate/Area] [place] Comment on above: Average GFR for 60-6 9 years old: 85 mL/min/1.73sq m Chronic Kidney Disease: <60 mL/min/1.73sq m Kidney failure: <15 mL/min/1.73sq m eGFR calculated using average adult body mass. Additional eGFR calculator available at: http://www.[employer]/multiple_crcl_2012.htm Glucose [Mass/Vol] 121 mg/dL High 70 - 99 mg/dL [place] Potassium [Moles/Vol] 4.2 mmol/L 3.7 - 5.3 mmol/L [place] Sodium [Moles/Vol] 134 mmol/L Low 135 - 144 mmol/L [place] Urea nitrogen [Mass/Vol] 17 mg/dL 8 - 23 mg/dL [place] Brain Natriuretic Peptideon 08-25-2019 Natriuretic peptide B (Bld) [Mass/Vol] Pro-BNP Reference Range: [place], [place] Comment on above: Rule Out: <300 [place] Zone: Age <50 300-450 Age 50-75 300-900 Age >75 300-1800 Usually represents mild to moderate HF but other cardiopulmonary causes cannot be ruled out. Rule In: Age <50 >450 Age 50-75 >900 Age >75 >1800 Natriuretic peptide B (Bld) [Mass/Vol] 42 pg/mL <300 [place] Comment on above: Pro-BNP results ridge ot be compared to BNP results. CBC Auto Differentialon Basophils (Bld) [#/Vol] 0.10 10*3/uL [place] Basophils/100 WBC (Bld) 1 % 0 - 2 % [place] Differential Type NOT REPORTED [place] Eosinophils (Bld) [#/Vol] 0.20 10*3/uL [place] Eosinophils/100 WBC (Bld) 2 % 0 - 4 % [place] Erythrocyte distribution width (RBC) [Ratio] 13.8 % 11.5 - 14.9 % [place] Hematocrit (Bld) [Volume fraction] 47.4 % High 36 - 46 % [place] Hemoglobin (Bld) [Mass/Vol] 15.7 g/dL 12 - 16 g/dL [place] Interpretation and review of laboratory results Abnormal [place] Lymphocytes (Bld) [#/Vol] 0.80 10*3/uL Low [place] Lymphocytes/100 WBC (Bld) 7 % Low 24 - 44 % [place] MCH (RBC) [Entitic mass] 30.6 pg 26 - 34 pg [place] MCHC (RBC) [Mass/Vol] 33.2 g/dL 31 - 3 7 g/dL [place] MCV (RBC) [Entitic vol] 92.0 fL 80 - 100 fL [place] Monocytes (Bld) [#/Vol] 0.50 10*3/uL [place] Monocytes/100 WBC (Bld) 4 % 1 - 7 % [place] Platelet mean volume (Bld) [Entitic vol] 7.2 fL 6 - 12 fL [place] Platelets (Bld) [#/Vol] NOT REPORTED [place] Platelets (Bld) [#/Vol] 363 10*3/uL [place] RBC (Bld) [#/Vol] 5.15 10*6/uL 4 - 5.2 m/uL [place] RBC morphology finding Nom (Bld) NOT REPORTED [place] Segmented neutrophils/100 WBC (Bld) 86 % High 36 - 66 % [place] Segs Absolute 10.40 High [place] WBC (Bld) [#/Vol] 12.0 10*3/uL [place] WBC (Bld) [#/Vol] NOT REPORTED per 100 WBC [place] WBC Morphology NOT REPORTED [place] Hepatic Function Panelon Albumin [Mass/Vol] 4 g/dL 3.5 - 5.2 g/dL [place] Albumin/Globulin [Mass ratio] NOT REPORTED [place] ALP [Catalytic activity/Vol] 67 U/L 35 - 104 U/L [place] ALT [Catalytic activity/Vol] 19 U/L 5 - 33 U/L [place] AST [Catalytic activity/Vol] 12 U/L <32 [place] Bilirubin Ql (U) 0.53 mg/dL 0.3 - 1.2 mg/dL [place] Bilirubin, Indirect 0.39 mg/dL 0 - 1 mg/dL [place] Bilirubin.direct [Mass/Vol] 0.14 mg/dL <0.31 [place] Globulin (S) [Mass/Vol] NOT REPORTED 1.5 - 3.8 g/dL [place] Protein [Mass/Vol] 7.4 g/dL 6.4 - 8.3 g/dL [place] Lipaseon 08-25-2019 Lipase [Catalytic activity/Vol] 12 U/L Low 13 - 60 U/L [place] Otheron 08-25-2019 Interpretation and review of laboratory results Abnormal [place] Immature granulocytes (Bld) [#/Vol] NOT REPORTED 0 % [place] Protime-INRon 08-25-2019 INR Coag (PPP) [Relative time] 1.1 {INR} [place] Comment on above: Non-therapeutic Range: INR = 0.9-1.2 Therapeutic Range: Moderate Anticoagulant Intensity: INR = 2.0-3.0 High Anticoagulant Intensity: INR = 2.5-3.5 PT Coag (PPP) [Time] 13.6 s [place] Rapid influenza A/B antigens on 08-25-2019 Direct Exam Negative [place] Direct Exam Positive Abnormal [place] Interpretation and review of laboratory results Abnormal [place] Special Requests NOT REPORTED [place] Specimen Description .NASOPHARYNGEAL SWAB [place] Troponinon 08-25-2019 Troponin I.cardiac [Mass/Vol] NOT REPORTED [place] Troponin T.cardiac [Mass/Vol] NOT REPORTED <0.03 ng/mL [place] Troponin, High Sensitivity 9 ng/L 0 - 14 ng/L [place] Comment on above: High Sensitivity [...] diaphragm. No evidence of acute osseous abnormality. [place] Jose Antonio, Mhpn Incoming Radiant Results From [facility] - 08/25/2019 4:43 PM EST EXAMINATION: ONE [...] vascular congestion. Interstitial edema appears slightly improved. [place] Unchanged mild cardiomegaly and vascular congestion. Interstitial edema appears slightly improved. [place] Basic Metabolic Profon 08-10 Anion gap [Moles/Vol] 11 mmol/L 9 - 17 mmol/L [place] Bun/Cre Ratio NOT REPORTED [place] Calcium [Mass/Vol] 7.7 mg/dL Low 8.6 - 10. 4 mg/dL [place] Chloride [Moles/Vol] 101 mmol/L 98 - 10 7 mmol/L [place] CO2 [Moles/Vol] 28 mmol/L 20 - 31 mmol/L [place] Creatinine [Mass/Vol] 0.75 mg/dL 0.5 - 0.9 mg/dL [place] GFR >60 >60 mL/min [place] GFR Non- >60 >60 mL/min [place] GFR/1.73 sq M predicted among non-blacks MDRD (S/P/Bld) [Vol rate/Area] [place] Comment on above: Average GFR for 60-6 9 years old: 85 mL/min/1.73sq m Chronic Kidney Disease: <60 mL/min/1.73sq m Kidney failure: <15 mL/min/1.73sq m eGFR calculated using average adult body mass. Additional eGFR calculator available at: http://www.GroupTie/multiple_crcl_2012.htm GFR/1.73 sq M predicted among non-blacks MDRD (S/P/Bld) [Vol rate/Area] NOT REPORTED [place] Glucose [Mass/Vol] 162 mg/dL High 70 - 99 mg/dL [place] Interpretation and review of laboratory results Abnormal [place] Potassium [Moles/Vol] 4.1 mmol/L 3.7 - 5.3 mmol/L [place] Sodium [Moles/Vol] 140 mmol/L 135 - 144 mmol/L [place] Urea nitrogen [Mass/Vol] 29 mg/dL High 8 - 23 mg/dL [place] CBCon 08-10-2019 Erythrocyte distribution width (RBC) [Ratio] 13.4 % 11.5 - 14.9 % [place] Hematocrit (Bld) [Volume fraction] 41.6 % 36 - 46 % [place] Hemoglobin (Bld) [Mass/Vol] 13.9 g/dL 12 - 16 g/dL [place] Interpretation and review of laboratory results Abnormal [place] MCH (RBC) [Entitic mass] 31.1 pg 26 - 34 pg [place] MCHC (RBC) [Mass/Vol] 33.4 g/dL 31 - 3 7 g/dL [place] MCV (RBC) [Entitic vol] 93.2 fL 80 - 100 fL [place] Platelet mean volume (Bld) [Entitic vol] 7.6 fL 6 - 12 fL [place] Platelets (Bld) [#/Vol] 326 10*3/uL [place] RBC (Bld) [#/Vol] 4.46 10*6/uL 4 - 5.2 m/uL [place] WBC (Bld) [#/Vol] NOT REPORTED per 100 WBC [place] WBC (Bld) [#/Vol] 13.2 10*3/uL [place] XR CHEST STANDARD (2 VW)on [...] the costophrenic angles on the lateral view. [place] Jose Antonio, Mhpn Incoming Radiant Results From [facility] - 08/10/2019 9:50 AM EST EXAMINATION: TWO [...] radiographic follow-up is recommended to ensure clearance. [place] Cardiomegaly with mi ld vascular congestion noted concerning for mild interstitial pulmonary edema. This is new from the previous exam and continued radiographic follow-up is recommended to ensure clearance. [place] Basic Metabolic Profon 08-09 Anion gap [Moles/Vol] 11 mmol/L 9 - 17 mmol/L [place] Bun/Cre Ratio NOT REPORTED [facility] [place] Calcium [Mass/Vol] 7.6 mg/dL Low 8.6 - 10. 4 mg/dL [place] Chloride [Moles/Vol] 100 mmol/L 98 - 10 7 mmol/L [place] CO2 [Moles/Vol] 28 mmol/L 20 - 31 mmol/L [place] Creatinine [Mass/Vol] 0.86 mg/dL 0.5 - 0.9 mg/dL [place] GFR >60 >60 mL/min [place] GFR Non- >60 >60 mL/min [place] GFR/1.73 sq M predicted among non-blacks MDRD (S/P/Bld) [Vol rate/Area] NOT REPORTED [place] GFR/1.73 sq M predicted among non-blacks MDRD (S/P/Bld) [Vol rate/Area] [place] Comment on above: Average GFR for 60-6 9 years old: 85 mL/min/1.73sq m Chronic Kidney Disease: <60 mL/min/1.73sq m Kidney failure: <15 mL/min/1.73sq m eGFR calculated using average adult body mass. Additional eGFR calculator available at: http://www.GroupTie/multiple_crcl_2011.htm Glucose [Mass/Vol] 140 mg/dL High 70 - 99 mg/dL [place] Interpretation and review of laboratory results Abnormal [place] Potassium [Moles/Vol] 4.5 mmol/L 3.7 - 5.3 mmol/L [place] Sodium [Moles/Vol] 139 mmol/L 135 - 144 mmol/L [place] Urea nitrogen [Mass/Vol] 29 mg/dL High 8 - 23 mg/dL [place] CBCon 08-09-2019 Erythrocyte distribution width (RBC) [Ratio] 13.6 % 11.5 - 14.9 % [place] Hematocrit (Bld) [Volume fraction] 40.1 % 36 - 46 % [place] Hemoglobin (Bld) [Mass/Vol] 13.5 g/dL 12 - 16 g/dL [place] Interpretation and review of laboratory results Abnormal [place] MCH (RBC) [Entitic mass] 31.2 pg 26 - 34 pg [place] MCHC (RBC) [Mass/Vol] 33.7 g/dL 31 - 3 7 g/dL [place] MCV (RBC) [Entitic vol] 92.6 fL 80 - 100 fL [place] Platelet mean volume (Bld) [Entitic vol] 7.3 fL 6 - 12 fL [place] Platelets (Bld) [#/Vol] 334 10*3/uL [place] RBC (Bld) [#/Vol] 4.34 10*6/uL 4 - 5.2 m/uL [place] WBC (Bld) [#/Vol] 15.9 10*3/uL [place] WBC (Bld) [#/Vol] NOT REPORTED per 100 WBC [place] Fungal stainon 08-09-2019 Direct Exam NO FUNGAL ELEMENTS SEEN [place] Special Requests NOT REPORTED [place] Specimen Description .BRONCHIAL WASHINGS [place] Otheron 08-09-2019 Direct Exam Positive Abnormal [place] Respiratory Cultureon 2019 Culture NORMAL RESPIRATORY CHERYL HEAVY GROWTH [place] Direct Exam FEW NEUTROPHILS Abnormal [place] Interpretation and review of laboratory results Abnormal [place] Special Requests NOT REPORTED [place] Specimen Description .BRONCHIAL WASHINGS [place] Surgical Pathologyon 020 Surgical Pathology Report [id number] [place] [address] SURGICAL PATHOLOGY REPORT Patient Name: CAMERON US MR#: [id number] Specimen #[id number] Final Diagnosis Parts A & B. Lungs, bronchial washings (cytology and cell block): - Adequate for evaluation. - Benign squamous cells and reactive bronchial epithelial cells with macrophages, mixed inflammation, and mucinous debris. - Negative for malignancy. Alin Valencia M.D. Electronically Signed Out [facility]08/09/2019 Clinical Information COPD; bronchoscopy Source: A: Bronchial washing, smears, cytospins, Thin Prep B: Bronchial washing, sediment Gross Description Specimen A : The specimen consists of 13.0 ml of pink, mucoid, cloudy fluid. Approximately 3 ml are sent to [place] for ThinPrep. Two smears and two cytospin preparations are made. Specimen B : The entire specimen is centrifuged for cell block. The volume of sediment is 0.5 cc. It is submitted for cell block preparation. Microscopic Description Five cytology and two H&E cell block slides reviewed. Microscopic examination performed and supports the diagnostic impression. [place] Basic Metabolic Profon 08-08 Anion gap [Moles/Vol] 8 mmol/L Low 9 - 17 mmol/L [place] Bun/Cre Ratio NOT REPORTED [place] Calcium [Mass/Vol] 8.0 mg/dL Low 8.6 - 10. 4 mg/dL [place] Chloride [Moles/Vol] 106 mmol/L 98 - 10 7 mmol/L [place] CO2 [Moles/Vol] 26 mmol/L 20 - 31 mmol/L [place] Creatinine [Mass/Vol] 0.75 mg/dL 0.5 - 0.9 mg/dL [place] GFR >60 >60 mL/min [place] GFR Non- >60 >60 mL/min [place] GFR/1.73 sq M predicted among non-blacks MDRD (S/P/Bld) [Vol rate/Area] NOT REPORTED [place] GFR/1.73 sq M predicted among non-blacks MDRD (S/P/Bld) [Vol rate/Area] [place] Comment on above: Average GFR for 60-6 9 years old: 85 mL/min/1.73sq m Chronic Kidney Disease: <60 mL/min/1.73sq m Kidney failure: <15 mL/min/1.73sq m eGFR calculated using average adult body mass. Additional eGFR calculator available at: http://www.[employer]/multiple_crcl_2011.htm Glucose [Mass/Vol] 154 mg/dL High 70 - 99 mg/dL [place] Interpretation and review of laboratory results Abnormal [place] Potassium [Moles/Vol] 5.1 mmol/L 3.7 - 5.3 mmol/L [place] Sodium [Moles/Vol] 140 mmol/L 135 - 144 mmol/L [place] Urea nitrogen [Mass/Vol] 32 mg/dL High 8 - 23 mg/dL [place] Body fluid cell counton 07-23 Appearance, Fluid TURBID [facility] [place], [place] Color, Fluid PALE YELLOW [place] RBC, Fluid 294 /mm3 [place] Specimen type Nom (Spec) .BRONCHIAL WASHINGS [place] WBC, Fluid 113 /mm3 [place] CBCon 08-08-2019 Erythrocyte distribution width (RBC) [Ratio] 13.5 % 11.5 - 14.9 % [place] Hematocrit (Bld) [Volume fraction] 42.1 % 36 - 46 % [place] Hemoglobin (Bld) [Mass/Vol] 14.0 g/dL 12 - 16 g/dL [place] Interpretation and review of laboratory results Abnormal [place] MCH (RBC) [Entitic mass] 30.7 pg 26 - 34 pg [place] MCHC (RBC) [Mass/Vol] 33.2 g/dL 31 - 3 7 g/dL [place] MCV (RBC) [Entitic vol] 92.4 fL 80 - 100 fL [place] Platelet mean volume (Bld) [Entitic vol] 7.2 fL 6 - 12 fL [place] Platelets (Bld) [#/Vol] 355 10*3/uL [place] RBC (Bld) [#/Vol] 4.55 10*6/uL 4 - 5.2 m/uL [place] WBC (Bld) [#/Vol] 18.5 10*3/uL [place] WBC (Bld) [#/Vol] NOT REPORTED per 100 WBC [place] Differential, Body Fluidon 0 08-08-2019 Basos, Fluid 0 % [place] Eos, Fluid 7 % High 0 [place] Fluid Diff Comment TO BE REVIEWED BY PATHOLOGIST [place] Comment on above: Reviewed by patholog ist: Justin Chambers D.O. SLIDE REVIEWED. MACROPHAGES, NEUTROPHILS WITH RARE LYMPHOCYTES AND EOSINOPHIILS NOTED. Interpretation and review of laboratory results Abnormal [place] Lymphocytes, Body Fluid 7 % High 0 [place] Monocyte Count, Fluid 40 % High 0 [place], [place] Neutrophil Count, Fluid 46 % High 0 [place] Other Cells, Fluid 0 % [place] Basic Metabolic Profon 08-07 Anion gap [Moles/Vol] 11 mmol/L 9 - 17 mmol/L [place] Bun/Cre Ratio NOT REPORTED [place] Calcium [Mass/Vol] 8.1 mg/dL Low 8.6 - 10. 4 mg/dL [place] Chloride [Moles/Vol] 105 mmol/L 98 - 10 7 mmol/L [place] CO2 [Moles/Vol] 24 mmol/L 20 - 31 mmol/L [place] Creatinine [Mass/Vol] 0.93 mg/dL High 0.5 - 0.9 mg/dL [place] GFR >60 >60 mL/min [place] GFR Non- >60 >60 mL/min [place] GFR/1.73 sq M predicted among non-blacks MDRD (S/P/Bld) [Vol rate/Area] NOT REPORTED [place] GFR/1.73 sq M predicted among non-blacks MDRD (S/P/Bld) [Vol rate/Area] [place] Comment on above: Average GFR for 60-6 9 years old: 85 mL/min/1.73sq m Chronic Kidney Disease: <60 mL/min/1.73sq m Kidney failure: <15 mL/min/1.73sq m eGFR calculated using average adult body mass. Additional eGFR calculator available at: http://www.Group[employer]/multiple_crcl_2012.htm Glucose [Mass/Vol] 172 mg/dL High 70 - 99 mg/dL [place] Interpretation and review of laboratory results Abnormal [place] Potassium [Moles/Vol] 5.1 mmol/L 3.7 - 5.3 mmol/L [place] Sodium [Moles/Vol] 140 mmol/L 135 - 144 mmol/L [place] Urea nitrogen [Mass/Vol] 26 mg/dL High 8 - 23 mg/dL [place] CBCon 08-07-2019 Erythrocyte distribution width (RBC) [Ratio] 13.8 % 11.5 - 14.9 % [place] Hematocrit (Bld) [Volume fraction] 42.8 % 36 - 46 % [place] Hemoglobin (Bld) [Mass/Vol] 14.1 g/dL 12 - 16 g/dL [place] Interpretation and review of laboratory results Abnormal [place] MCH (RBC) [Entitic mass] 30.8 pg 26 - 34 pg [place] MCHC (RBC) [Mass/Vol] 33.0 g/dL 31 - 3 7 g/dL [place] MCV (RBC) [Entitic vol] 93.1 fL 80 - 100 fL [place] Platelet mean volume (Bld) [Entitic vol] 7.5 fL 6 - 12 fL [place] Platelets (Bld) [#/Vol] 367 10*3/uL [place] RBC (Bld) [#/Vol] 4.59 10*6/uL 4 - 5.2 m/uL [place] WBC (Bld) [#/Vol] 20.0 10*3/uL [place] WBC (Bld) [#/Vol] NOT REPORTED per 100 WBC [place] Basic Metabolic Profon 08-06 Anion gap [Moles/Vol] 10 mmol/L 9 - 17 mmol/L [place] Bun/Cre Ratio NOT REPORTED [place] Calcium [Mass/Vol] 8.2 mg/dL Low 8.6 - 10. 4 mg/dL [place] Chloride [Moles/Vol] 102 mmol/L 98 - 10 7 mmol/L [place] CO2 [Moles/Vol] 25 mmol/L 20 - 31 mmol/L [place] Creatinine [Mass/Vol] 0.75 mg/dL 0.5 - 0.9 mg/dL [place] GFR >60 >60 mL/min [place] GFR Non- >60 >60 mL/min [place] GFR/1.73 sq M predicted among non-blacks MDRD (S/P/Bld) [Vol rate/Area] [place] Comment on above: Average GFR for 60-6 9 years old: 85 mL/min/1.73sq m Chronic Kidney Disease: <60 mL/min/1.73sq m Kidney failure: <15 mL/min/1.73sq m eGFR calculated using average adult body mass. Additional eGFR calculator available at: http://www.[employer]/multiple_crcl_2012.htm GFR/1.73 sq M predicted among non-blacks MDRD (S/P/Bld) [Vol rate/Area] NOT REPORTED [place] Glucose [Mass/Vol] 166 mg/dL High 70 - 99 mg/dL [place] Interpretation and review of laboratory results Abnormal [place] Potassium [Moles/Vol] 4.1 mmol/L 3.7 - 5.3 mmol/L [place] Sodium [Moles/Vol] 137 mmol/L 135 - 144 mmol/L [place] Urea nitrogen [Mass/Vol] 21 mg/dL 8 - 23 mg/dL [place] CBCon 08-06-2019 Erythrocyte distribution width (RBC) [Ratio] 13.5 % 11.5 - 14.9 % [place] Hematocrit (Bld) [Volume fraction] 43.2 % 36 - 46 % [place] Hemoglobin (Bld) [Mass/Vol] 14.5 g/dL 12 - 16 g/dL [place] MCH (RBC) [Entitic mass] 31.1 pg 26 - 34 pg [place] MCHC (RBC) [Mass/Vol] 33.5 g/dL 31 - 3 7 g/dL [place] MCV (RBC) [Entitic vol] 92.7 fL 80 - 100 fL [place] Platelet mean volume (Bld) [Entitic vol] 7.2 fL 6 - 12 fL [place] Platelets (Bld) [#/Vol] 366 10*3/uL [place] RBC (Bld) [#/Vol] 4.66 10*6/uL 4 - 5.2 m/uL [place] WBC (Bld) [#/Vol] NOT REPORTED per 100 WBC [place] WBC (Bld) [#/Vol] 7.9 10*3/uL [place] Basic Metabolic Panelon 07-23 Anion gap [Moles/Vol] 14 mmol/L 9 - 17 mmol/L [place] Bun/Cre Ratio NOT REPORTED [place] Calcium [Mass/Vol] 8.6 mg/dL 8.6 - 10. 4 mg/dL [place] Chloride [Moles/Vol] 102 mmol/L 98 - 10 7 mmol/L [place] CO2 [Moles/Vol] 25 mmol/L 20 - 31 mmol/L [place] Creatinine [Mass/Vol] 0.85 mg/dL 0.5 - 0.9 mg/dL [place] GFR >60 >60 mL/min [place] GFR Non- >60 >60 mL/min [place] GFR/1.73 sq M predicted among non-blacks MDRD (S/P/Bld) [Vol rate/Area] [place], [place] Comment on above: Average GFR for 60-6 9 years old: 85 mL/min/1.73sq m Chronic Kidney Disease: <60 mL/min/1.73sq m Kidney failure: <15 mL/min/1.73sq m eGFR calculated using average adult body mass. Additional eGFR calculator available at: http://www.[email or web address] Mobile/multiple_crcl_2012.htm GFR/1.73 sq M predicted among non-blacks MDRD (S/P/Bld) [Vol rate/Area] NOT REPORTED [place] Glucose [Mass/Vol] 97 mg/dL 70 - 99 mg/dL [place] Potassium [Moles/Vol] 4.5 mmol/L 3.7 - 5.3 mmol/L [place] Sodium [Moles/Vol] 141 mmol/L 135 - 144 mmol/L [place] Urea nitrogen [Mass/Vol] 19 mg/dL 8 - 23 mg/dL [place] CBC Auto Differentialon 07-23 Basophils (Bld) [#/Vol] 0.10 10*3/uL [place] Basophils/100 WBC (Bld) 1 % 0 - 2 % [place] Differential Type NOT REPORTED [place] Eosinophils (Bld) [#/Vol] 0.80 10*3/uL [place] Eosinophils/100 WBC (Bld) 9 % High 0 - 4 % [place] Erythrocyte distribution width (RBC) [Ratio] 13.2 % 11.5 - 14.9 % [place] Hematocrit (Bld) [Volume fraction] 46.8 % High 36 - 46 % [place] Hemoglobin (Bld) [Mass/Vol] 15.6 g/dL 12 - 16 g/dL [place] Interpretation and review of laboratory results Abnormal [place] Lymphocytes (Bld) [#/Vol] 2.70 10*3/uL [place] Lymphocytes/100 WBC (Bld) 30 % 24 - 44 % [place] MCH (RBC) [Entitic mass] 31.1 pg 26 - 34 pg [place] MCHC (RBC) [Mass/Vol] 33.4 g/dL 31 - 3 7 g/dL [place] MCV (RBC) [Entitic vol] 93.1 fL 80 - 100 fL [place] Monocytes (Bld) [#/Vol] 0.70 10*3/uL [place] Monocytes/100 WBC (Bld) 8 % High 1 - 7 % [place] Platelet mean volume (Bld) [Entitic vol] 7.0 fL 6 - 12 fL [place] Platelets (Bld) [#/Vol] NOT REPORTED [place] Platelets (Bld) [#/Vol] 396 10*3/uL [place] RBC (Bld) [#/Vol] 5.02 10*6/uL 4 - 5.2 m/uL [place] RBC morphology finding Nom (Bld) NOT REPORTED [place] Segmented neutrophils/100 WBC (Bld) 52 % 36 - 66 % [place] Segs Absolute 4.80 [place] WBC (Bld) [#/Vol] NOT REPORTED per 100 WBC [place] WBC (Bld) [#/Vol] 9.2 10*3/uL [place] WBC Morphology NOT REPORTED [place] D-Dimer, Quantitativeon 07-23 D-Dimer, Quant <0.27 [place] Comment on above: When combined with [...] 08-05-2019 Immature granulocytes (Bld) [#/Vol] NOT REPORTED [facility] [place] Procalcitoninon 08-05-2019 Procalcitonin 0.06 ng/mL <0.09 [facility] [place] Comment on above: Suspected Sepsis: 0.09-0.49 ng/mL [...] entered into the Change in Procalcitonin Calculator (www.zpexva-kki-pwxkodlbpq.Visionary Mobile) to determine the patient's Mortality Risk Prognosis XR CHEST PORTABLEon 08-05-19 20 Jose Antonio, pn Incoming Radiant Results From Anywhere.FM/Navigenicss - 08/05/2019 3:07 PM EST EXAMINATION: ONE [...] identified. IMPRESSION: No acute airspace disease identified. [facility] ONE XRA Y VIEW OF THE CHEST 08/05/2019 2:02 pm COMPARISON: None. HISTORY: ORDERING SYSTEM PROVIDED HISTORY: Chest Pain TECHNOLOGIST PROVIDED HISTORY: Chest Pain Reason for Exam: CHEST PAIN Acuity: Unknown Type of Exam: Unknown FINDINGS: Mild cardiac silhouette enlargement. Generalized interstitial prominence without consolidation, pneumothorax or evidence for edema. No effusion. No acute osseous abnormality identified. [place] No acute airspace disease identified. [place] Glucose, Fastingon 9 Glucose [Mass/Vol] 93 mg/dL Normal 70-99 [facility] Comment on above: Performed By: #### G JOSE, LIPRF, TSH #### [facility] [address] [place] [address] [id number] [employer] Supervisor: Beau Troncoso MD Glucose [Mass/Vol] 93 mg/dL 70 - 99 mg/dL [place] Lipid Prof, Fastingon 2018 Cholesterol [Mass/Vol] 275 mg/dL High <200 [facility] Comment on above: Result Comment: Cholesterol Guidelines: <200 Desirable 200-240 Borderline >240 Undesirable Performed By: #### G JOES LIPRF, TSH #### [facility] [address] [place] [address] [phone] [employer] Supervisor: Beau Troncoso MD Cholesterol in HDL [Mass/Vol] 48 mg/dL Normal >40 [facility] Comment on above: Result Comment: HDL Guidelines: <40 Undesirable 40-59 Borderline >59 Desirable Performed By: #### G JOSE LIPRF, TSH #### [facility] [address] [place] [address] [phone] [employer] Supervisor: Beau Troncoso MD Cholesterol in LDL [Mass/Vol] 196 mg/dL High 0-130 [facility] Comment on above: Result Comment: LDL Guidelines: <100 Desirable 100-129 Near to/above Desirable 130-159 Borderline >159 Undesirable Direct (measured) LDL and calculated LDL are not interchangeable tests. Performed By: #### G JOSE, LIPRF, TSH #### [facility] [address] [place] [address] [phone] [employer] Supervisor: Beau Troncoso MD Cholesterol.total/Chol esterol in HDL [Mass ratio] 5.7 {ratio} High <5 [facility] Comment on above: Performed By: #### G JOSE, LIPRF, TSH #### [employer] [address] [place], [place] [phone] [employer] Supervisor: Beau Troncoso MD Triglyceride,Fasting 153 mg/dL High <150 [facility] Comment on above: Result Comment: Triglyceride Guidelines: <150 Desirable 150-199 Borderline 200-499 High >499 Very high Based on AHA Guidelines for fasting triglyceride, March 2012. Performed By: #### G LURosette, LIPRF, TSH #### [employer] [address] [place], [place] [phone] [employer] Supervisor: Beau Troncoso MD Cholesterol in VLDL [Mass/Vol] NOT REPORTED Normal 1-30 [facility] Comment on above: Performed By: #### G JOSE LIPRF, TSH #### [facility] [address] [place] [address] [id number] [employer] Supervisor: Beau Troncoso MD Lipid, Fastingon 05-11-2019 Cholesterol [Mass/Vol] 275 mg/dL High <200 [place] Comment on above: Cholesterol Guidelines: <200 Desirable 200-240 Borderline >240 Undesirable Cholesterol in HDL [Mass/Vol] 48 mg/dL >40 [place] Comment on above: HDL Guidelines: <40 Undesirable 40-59 Borderline >59 Desirable Cholesterol in LDL [Mass/Vol] 196 mg/dL High 0 - 130 mg/dL [place] Comment on above: LDL Guidelines: <100 Desirable 100-129 Near to/above Desirable 130-159 Borderline >159 Undesirable Direct (measured) LDL and calculated LDL are not interchangeable tests. Cholesterol in VLDL [Mass/Vol] NOT REPORTED High 1 - 30 mg/dL [place] Cholesterol.total/Chol esterol in HDL [Mass ratio] 5.7 {ratio} High <5 [place] Interpretation and review of laboratory results Abnormal [place] Triglyceride, Fasting 153 mg/dL High <150 [place] Comment on above: Triglyceride Guidelines: <150 Desirable 150-199 Borderline 200-499 High >499 Very high Based on AHA Guidelines for fasting triglyceride, March 2012. TSHon 05-11-2019 Interpretation and review of laboratory results Abnormal [facility] TSH Qn 25.72 m[IU]/L High [facility], [place] Thyroid Stim. Horm.on 2018 TSH Qn 25.72 m[IU]/L High 0.30-5.00 [facility] Comment on above: Performed By: #### G LUF, LIPRF, TSH #### [facility] [address] [place], [place] [phone] [employer] Supervisor: Beau Troncoso MD Vital Signs Date Time Vital Sign Value Performing Clinician Facility 07-30-2023 10:47-0500 Body height 172.7 cm LouieAccera DO Work Phone: [facility] [employer] [facility] 07-30-2023 10:47-0500 Body mass index (BMI) [Ratio] 36.74 kg/m2 Louie TrelliSoft DO Work Phone: [facility] [employer] [facility] 07-30-2023 10:47-0500 Body temperature 98.1 [degF] Louie [employer]lliSoft DO [facility] 07-30-2023 10:47-0500 Body weight 109.59 kg Louie Oxtexng DO Work Phone: [facility] [employer] [facility] 07-30-2023 10:47-0500 Diastolic blood pressure 80 mm[Hg] Louie Oxtexng DO Work Phone: [facility] [employer] [facility] 07-30-2023 10:47-0500 Heart rate 89 /min Louie Oxtexng DO Work Phone: [facility] 07-30-2023 10:47-0500 SaO2% (BldA) [Mass fraction] 95 % Louie Oxtexng DO Work Phone: [facility] [employer] [facility] 07-30-2023 10:47-0500 Systolic blood pressure 130 mm[Hg] LouieAccera DO Work Phone: [facility] [employer] [facility] 11-22-2020 12:40-0400 Respiratory rate 29 /min Heena John MD [employer] Phone: 11-22-2020 12:40-0400 SaO2% (BldA) [Mass fraction] 100 % Heena John MD [employer] Phone: 11-22-2020 12:30-0400 Diastolic blood pressure 58 mm[Hg] Heena John MD [employer] Phone: 11-22-2020 12:30-0400 Heart rate 85 /min Heena John MD [employer] Phone: 11-22-2020 12:30-0400 Systolic blood pressure 108 mm[Hg] Heena John MD [employer] Phone: 11-22-2020 12:09-0400 Body height 175.3 cm eHena John MD [employer] Phone: 11-22-2020 12:09-0400 Body mass index (BMI) [Ratio] 33.97 kg/m2 Heena John MD [employer] Phone: 11-22-2020 12:09-0400 Body temperature 97.3 [degF] Heena John MD [employer] Phone: 11-22-2020 12:09-0400 Body weight 104.33 kg Heena John MD [employer] Phone: 11-02-2019 13:15-0400 BP Diastolic 61 mm[Hg] Warren Scaff[place] , [place] 11-02-2019 13:15-0400 BP Systolic 118 mm[Hg] [employer] [place] , [place] 11-02-2019 13:15-0400 Pulse (Heart Rate) 87 /min Warren [employer] [place] 11-02-2019 13:15-0400 Pulse Oximetry 97 % Warren [employer] [place] , [place] 11-02-2019 13:15-0400 Respiratory Rate 17 /min Warren [employer] [facility], [place] 11-02-2019 10:12-0400 BMI (Body Mass Index) 29.53 kg/m2 [facility], [place] 11-02-2019 10:12-0400 Body Temperature 98.91 [degF] [facility] [place] [place] 11-02-2019 10:12-0400 Body weight 90.72 kg Warren [facility] , [place] 10-08-2019 11:51-0400 Pulse Oximetry 98 % [facility] , [place] 10-08-2019 11:51-0400 Respiratory Rate 12 /min [facility], [place] 10-08-2019 08:42-0400 Body Temperature 98.1 [degF] [facility] [place] 10-08-2019 08:42-0400 BP Diastolic 70 mm[Hg] [facility] , [place] 10-08-2019 08:42-0400 BP Systolic 137 mm[Hg] [facility] , [place] 10-08-2019 08:42-0400 Pulse (Heart Rate) 99 /min [facility], [place] 10-08-2019 06:30-0400 BMI (Body Mass Index) 32.43 kg/m2 [facility], [place] 10-08-2019 06:30-0400 Body weight 99.6 kg [facility] , [place] 10-05-2019 18:01-0400 Height 175.3 cm [facility] , [place] 09-15-2019 18:31-0400 Body Temperature 98.91 [degF] [facility], [place] 09-15-2019 18:31-0400 BP Diastolic 63 mm[Hg] [facility] , [place] 09-15-2019 18:31-0400 BP Systolic 133 mm[Hg] [facility] , [place] 09-15-2019 18:31-0400 Pulse (Heart Rate) 101 /min [facility], [place] 09-15-2019 18:31-0400 Pulse Oximetry 93 % [facility] [place] , [place] 09-15-2019 18:31-0400 Respiratory Rate 18 /min [facility] [place] 09-15-2019 17:26-0400 BMI (Body Mass Index) 32.19 kg/m2 Levy Holm [facility], [place] 09-15-2019 17:26-0400 Body weight 98.88 kg Levy [facility] , [place] 08-29-2019 15:11-0400 Pulse Oximetry 95 % Jacob [facility] , [place] 08-29-2019 14:42-0400 Body Temperature 98.29 [degF] [facility] [place] 08-29-2019 14:42-0400 BP Diastolic 65 mm[Hg] [facility] , [place] 08-29-2019 14:42-0400 BP Systolic 133 mm[Hg] [facility] , [place] 08-29-2019 14:42-0400 Pulse (Heart Rate) 84 /min [facility], [place] 08-29-2019 14:42-0400 Respiratory Rate 16 /min Jacob [facility] , [place] 08-29-2019 06:34-0400 BMI (Body Mass Index) 32.17 kg/m2 Jacob Granado [facility], [place] 08-29-2019 06:34-0400 Body weight 98.8 kg [facility] [place] 08-25-2019 15:11-0500 Height 175.3 cm [facility] [place] 08-10-2019 14:26-0500 Body Temperature 97.2 [degF] Heena John [facility], [place] 08-10-2019 14:26-0500 BP Diastolic 81 mm[Hg] Heena John [facility] [place] , [place] 08-10-2019 14:26-0500 BP Systolic 159 mm[Hg] Heena John [facility] [place] , [place] 08-10-2019 14:26-0500 Pulse (Heart Rate) 86 /min Heena John [facility], [place] 08-10-2019 14:26-0500 Pulse Oximetry 94 % Heena John [facility] , [place] 08-10-2019 14:26-0500 Respiratory Rate 16 /min Heena Holm [facility], [place] 08-07-2019 06:00-0500 BMI (Body Mass Index) 31.58 kg/m2 Heena Holm [facility], [place] 08-07-2019 06:00-0500 Body weight 97 kg Heena Holm [facility] , [place] 08-05-2019 16:57-0500 Height 175.3 cm Heena John [facility] , [place] Encounters Encounter Date Encounter Type Care Provider Facility Start: 08-25-2023 Telephone encounter Barby Horna [facility] Start: 08-10-2023 End: 08-11-2023 ambulatory Belle Monet MD Facility: Dat Start: 08-03-2023 End: 08-04-2023 ambulatory Belle Monet MD Facility: [facility] Start: 07-30-2023 End: 07-30-2023 ambulatory LOUIE PAUL [facility] Start: 07-30-2023 End: 07-30-2023 Office outpatient visit 25 minutes Louie Paul DO Work Phone: [facility] Comment on above: Chronic obstructive pulmonary disease, unspecified COPD type [place] (Primary Dx); Right-sided low back pain without sciatica, unspecified chronicity; Postoperative hypothyroidism; Obstructive sleep apnea Start: 07-19-2023 Refill Louie villa DO Work Phone: [facility] Comment on above: Acute exacerbation o f chronic obstructive pulmonary disease (COPD) ([facility] Start: 07-14-2023 Refill Louie villa DO Work Phone: [facility] [...] 11-22-2020 Emergency department patient visit CADEN Muhammad [facility] Start: 11-22-2020 End: 11-22-2020 Emergency department patient visit Heena John MD [facility] ED Comment on above: COPD exacerbation (H CC) (Primary Dx) Start: 04-18-2020 End: 04-21-2020 ambulatory [facility] Start: 04-16-2020 End: 04-17-[address] [facility] Start: 04-16-2020 End: 04-16-2020 Subsequent hospital visit by physician Caden PATEL [place] [facility] Comment on above: Dizziness; Polydipsia Start: 03-23-2020 End: 03-26-2020 ambulatory ENESI O CORA [facility] Start: 03-23-2020 End: 03-25-2020 Subsequent hospital visit by physician [facility] Mri Rm 119 [facility] MRI Comment on above: Osteoarthritis of ri t acromioclavicular joint Start: 11-02-2019 End: 11-02-2019 Emergency department patient visit Warren Olivas Work Phone: [facility] ED Comment on above: COPD exacerbation (H CC) (Primary Dx) Start: 10-05-2019 End: 10-08-2019 Evaluation and management of inpatient Forest Childs Work Phone: [facility] Comment on above: COPD exacerbation (H CC) (Primary Dx); Acute respiratory failure with hypoxia (HCC) Start: 09-15-2019 End: 09-15-2019 Emergency department patient visit Levy Felix Work Phone: [facility] ED Comment on above: Cough (Primary Dx); Abnormal CXR; Viral URI Start: 08-25-2019 End: 08-29-2019 Evaluation and management of inpatient Jacob Granado Work Phone: [facility] Med Surg Comment on above: COPD exacerbation (H CC) (Primary Dx); Influenza with respiratory manifestation other than pneumonia; COPD with acute exacerbation (HCC) Start: 08-05-2019 End: 08-10-2019 Evaluation and management of inpatient Heena Strauss Alvaro [facility] Med S[facility] Comment on above: COPD exacerbation (H CC) (Primary Dx); Cough; Moderate persistent asthma with acute exacerbation Start: 05-11-2019 End: 05-12-2019 Patient encounter procedure NAJMA KEN [facility] Start: 05-11-2019 End: 05-11-2019 Subsequent hospital visit by physician Najma ALVAREZ [facility] Comment on above: Encounter for screen ing for diabetes mellitus; Screening for hyperlipidemia Procedures Date Procedure Procedure Detail Performing Clinician Start: 07-30-2023 Adult depression scr eening assessment [employer] DO Work Phone: Start: 05-11-2023 Adult depression scr eening assessment [employer] DO Work Phone: Start: 11-22-2020 Radiologic exam [...] 05-11-2019 Assay of thyroid stimulating hormone tsh [employer] JESUS MAN[employer]EL Start: 05-11-[address] gtt 3 specimens SHIVAPRASAD JESUS MANUEL Start: 05-11-2019 Lipid panel SHIVAPRASA D JESUS MANUEL Start: 05-11-2019 Assay of thyroid stimulating hormone tsh [employer] Work Phone: Start: 05-11-[address] gtt 3 specimens [employer] Work Phone: Start: 05-11-2019 Lipid panel [employer] Work Phone: Plan of Treatment Date Care Activity Detail Author Start: 08-31-2025 COVID-19 Vaccine (1) COVID-19 Vaccin e (1) [employer] Phone: Comment on above: Postponed from 03/05 (Patient Refused) Start: 08-31-2025 Influenza vaccination Flu vacc ine (Season Ended) [employer] Phone: Comment on above: Postponed from 02/20 (Patient Refused) Start: 08-08-2024 Pneumococcal 0-64 ye ars Vaccine (2 of 2) Pneumococcal 0-64 years Vaccine (2 of 2) [employer] Phone: Start: 07-30-2024 Adult BMI Screening [facility] Start: 07-30-2024 Depression Screening Depression Scre [facility] Start: 07-30-2024 Tobacco Screening Tobacco Screening [facility] Start: 05-11-2024 Adult BMI Screening Adult BMI Screen [facility] Start: 05-11-2024 Depression Screening Depression Scre [facility] Start: 05-11-2024 Lipid panel Lipid screen [facility] [place] Start: 05-11-2024 Lipid screen Lipid screen [place] Start: 05-11-2024 Tobacco Screening Tobacco Screening [facility] Start: 12-22-2023 End: 12-22-2023 Patient encounter procedure 12/22/2023 1:30 PM EDT Office Visit [facility] [address] [phone] Celia Calhoun MD [address] [address] [facility] Start: 12-12-2023 Tobacco Counseling Tobacco Counselin g [facility] Start: 09-20-2023 Influenza vaccination Influenza Vacc ine [facility] Comment on above: Postponed from 02/20 (Patient Refused) Start: 08-26-2023 End: 08-26-2023 Patient encounter procedure 08/26/2023 11:45 AM EST Office Visit [facility] [address] [facility] [place] [address] Sarah Fernández, [employer]XOPH[employer]ER[employer]MECHANIC [address] [place] [address], [address] [address] [facility] Start: 08-12-2023 Adult BMI Follow Up Plan Adult BMI Follow Up Plan [facility] Start: 05-11-2022 Diabetes screen Diabetes screen [place] Start: 10-17-2021 Shingles Vaccine (1 of 2) Shingles Vaccine (1 of 2) [facility] Phone: Comment on above: Postponed from 03/05 (Patient Refused) Start: 04-16-2021 Hemoglobin A1c measurement A1C test (Diabetic or Prediabetic) [employer] Phone: Start: 04-16-2021 Thyroid stimulating hormone measurement TSH testing [facility] Phone: Start: 12-24-2020 DTaP/Tdap/Td vaccine (1 - Tdap) DTaP/Tdap/Td vaccine (1 - Tdap) [facility] Work Phone: Comment on above: Postponed from 03/05 (Patient Refused) Start: 10-05-2020 TSH Qn TSH testing [place], [place] Start: 10-05-2020 TSH testing TSH testing [place] Start: 05-11-2020 TSH testing TSH testing [place] Start: 05-10-2020 End: 05-10-2020 Office Visit 05/10/2020 Office Visit Primary Care Najma Ken MD [address] [place] [address] [id number] [facility] Start: 05-05-2020 DTaP/Tdap/Td vaccine (1 - Tdap) DTaP/Tdap/Td vaccine (1 - Tdap) [place] Comment on above: Postponed from 03/05 (Patient Refused) Postponed from 03/05 (Patient Refused) Start: 05-05-2020 Hepatitis C screen Hepatitis C scree n [place] Comment on above: Postponed from 03/05 (Patient Refused) Start: 05-05-2020 Hepatitis C screening Hepatitis C sc reen [place] Comment on above: Postponed from 03/05 (Patient Refused) Start: 05-05-2020 HIV screen HIV screen [place] Comment on above: Postponed from 03/05 (Patient Refused) Start: 05-05-2020 HIV screening HIV screen [place], [place] Comment on above: Postponed from 03/05 (Patient Refused) Start: 04-18-2020 End: 04-18-2020 Appointment 04/18/2020 Appointment Radiology [facility] CT Scan Start: 02-21-2020 Influenza vaccination [place] Start: 08-04-2019 End: 08-04-2019 Office Visit 08/04/2019 Office Visit Primary Care Najma Ken MD [address] [place] [address] [phone] [facility] Start: 02-20-2019 Influenza vaccination Flu vaccine (# 1) [place], [place] Start: [address] lung screening Low dose CT lung screening [place] Start: 2009 Administration of varicella zoster vaccine Zoster (Shingles) Vaccine (1 of 2) [facility] Start: 2009 Breast cancer screen Breast cancer s creen [place] Start: 2009 Colon cancer screen colonoscopy Colon cancer screen colonoscopy [place] Start: 2009 Screening for malign ant neoplasm of breast Breast cancer screen [place] Start: 2009 Screening for malign ant neoplasm of colon Colon cancer screen colonoscopy [place] Start: 2009 Shingles Vaccine (1 of 2) Shingles Vaccine (1 of 2) [place] Start: 1999 Diabetes screen Diabetes screen [place], [place] Start: 1999 Lipid screen Lipid screen [place], [place] Start: 1978 DTaP,Tdap and Td Vaccines (1 - Tdap) DTaP,Tdap and Td Vaccines (1 - Tdap) [facility] Start: 1965 Pneumococcal 0-64 ye ars Vaccine (1 of 1 - PPSV23) Pneumococcal 0-64 years Vaccine (1 of 1 - PPSV23) [place], [place] Start: 1959 TSH testing TSH testing [place] Acapella Acapella Respira tory Care Routine Daily until discontinued starting 08/06/2019 [place] Comment on above: Daily until disconti nued starting 08/06/2019 AFB Stain [facility] [place] Comment on above: Release Upon Orderin g for 1 Occurrences starting 10/06/2019 ONE TIME for 1 Occur rences starting 08/08/2019 Basic Metabolic Prof Basic Metab olic Prof Lab Routine Daily until discontinued starting 08/06/2019, 5 completed [place] Comment on above: Daily until disconti nued starting 08/06/2019, 5 completed Body fluid cell count [facility], [place] Comment on above: Release Upon Orderin g for 1 Occurrences starting 10/06/2019 ONE TIME for 1 Occur rences starting 08/08/2019 CBC CBC Lab Routine Daily until discontinued starting 08/06/2019, 5 completed [facility], [place] Comment on above: Daily until disconti nued starting 08/06/2019, 5 completed End: 09-01-2019 CBC auto differential CBC auto differential Lab Routine Daily for 5 Occurrences starting 08/28/2019 until 09/01/2019, 2 completed [facility], [place] Comment on above: Daily for 5 Occurren kisha starting 08/28/2019 until 09/01/2019, 2 completed End: 09-01-2019 Comprehensive Metabolic Panel w/ Reflex to MG Comprehensive Metabolic Panel w/ Reflex to MG Lab Routine Daily for 5 Occurrences starting 08/28/2019 until 09/01/2019, 2 completed [facility], [place] Comment on above: Daily for 5 Occurren kisha starting 08/28/2019 until 09/01/2019, 2 completed Culture with Smear, Acid Fast Bacillius [facility], [place] Comment on above: Release Upon Orderin g for 1 Occurrences starting 10/06/2019 ONE TIME for 1 Occur rences starting 08/08/2019 Culture, Fungus [facility] [place] Comment on above: Release Upon Orderin g for 1 Occurrences starting 10/06/2019 ONE TIME for 1 Occur rences starting 08/08/2019 End: 10-06-2019 Culture, Fungus Culture, Fungus Microbiology Routine Once for 1 Occurrences starting 10/06/2019 until 10/06/2019 [facility], [place] Comment on above: Once for 1 Occurrenc es starting 10/06/2019 until 10/06/2019 [facility], [facility]ella [facility] Comment on above: Release Upon Orderin g for 1 Occurrences starting 10/06/2019 End: 10-06-2019 Culture, Legionella Culture, Legionella Microbiology Routine Once for 1 Occurrences starting 10/06/2019 until 10/06/2019 [facility], [place] Comment on above: Once for 1 Occurrenc es starting 10/06/2019 until 10/06/2019 Culture, Respiratory [facility] Comment on above: Release Upon Orderin g for 1 Occurrences starting 10/06/2019 ONE TIME for 1 Occur rences starting 08/08/2019 Culture, Virus, Respiratory Culture, Virus, Respiratory Microbiology Routine Release Upon Ordering for 1 Occurrences starting 10/06/2019 [place], [place] Comment on above: Release Upon Orderin g for 1 Occurrences starting 10/06/2019 Cytology, Non-Or Director Cytology, Non- Or Director Lab Routine ONE TIME for 1 Occurrences starting 08/08/2019 [place], [place] Comment on above: ONE TIME for 1 Occur rences starting 08/08/2019 EKG 12 Lead EKG 12 Lead ECG STAT 11/02/2019 10:57 AM EDT [place] Fungal stain [facility], [place] Comment on above: Release Upon Orderin g for 1 Occurrences starting 10/06/2019 ONE TIME for 1 Occur rences starting 08/08/2019 End: 08-08-2019 Fungus Culture Fungus Culture Microbiology Routine Once for 1 Occurrences starting 08/08/2019 until 08/08/2019 [place], [place] Comment on above: Once for 1 Occurrenc es starting 08/08/2019 until 08/08/2019 HHN Treatment [place] Comment on above: As Needed until [...] for 1 Occurrences starting 10/08/2019 until 10/08/2019 [place] Comment on above: One Time for 1 Occur rences starting 10/08/2019 until 10/08/2019 End: 08-09-2019 Home O2 eval (desaturation screen) Home O2 eval (desaturation screen) Respiratory Care Routine One Time for 1 Occurrences starting 08/09/2019 until 08/09/2019 [place] Comment on above: One Time for 1 Occur rences starting 08/09/2019 until 08/09/2019 Initiate Oxygen Ther apy Protocol [facility] Comment on above: Daily until disconti nued starting 08/25/2019 Daily until disconti nued starting 08/27/2019 Daily until disconti nued starting 11/02/2019 MetaNeb MetaNeb Respirat ory Care Routine 0600, 1000, 1400, 1800, 2200 until discontinued starting 08/09/2019 [facility] Comment on above: 0600, 1000, 1400, 18 00, 2200 until discontinued starting 08/09/2019 Microscopic observat ion Gram stain Nom (Unsp spec) [facility] [place] Comment on above: Release Upon Orderin g for 1 Occurrences starting 10/06/2019 ONE TIME for 1 Occur rences starting 08/08/2019 End: 08-25-2019 Pulse Oximetry Spot Check Pulse Oximetry Spot Check Respiratory Care Routine One Time for 1 Occurrences starting 08/25/2019 until 08/25/2019 [facility] Comment on above: One Time for 1 Occur rences starting 08/25/2019 until 08/25/2019 End: 08-27-2019 Pulse Oximetry Spot Check Pulse Oximetry Spot Check Respiratory Care Routine One Time for 1 Occurrences starting 08/27/2019 until 08/27/2019 [facility] on above: One Time for 1 Occur rences starting 08/27/2019 until 08/27/2019 Pulse oximetry, overnight Pulse oximetry, overnight Respiratory Care Routine Every 4hr until discontinued starting 08/09/2019 [facility] Comment on above: Every 4hr until disc ontinued starting 08/09/2019 Respiratory Care Evaluation and Treat Respiratory Care Evaluation and Treat Respiratory Care Routine Daily until discontinued starting 10/05/2019 [facility] Comment on above: Daily until disconti nued starting 10/05/2019 Respiratory care evaluation only [facility] Comment on above: Daily until disconti nued starting 08/26/2019 Daily until disconti nued starting 11/23/2020 Immunizations Immunization Date Immunization Notes Care Provider Catherine howard 08-08-2019 pneumococcal vaccine , unspecified formulation Heena John [facility] [place] 08-08-2019 pneumococcal polysaccharide vaccine, 23 valent [facility] NE[facility]: Highlighted row has not occurred!08-10-2019 influenza, injectable, quadrivalent, preservative free Heena John [place] NEGATED: Highlighted row has not occurred!08-09-2019 influenza, injectable, quadrivalent, preservative free Heena John [place] NEGATED: Highlighted row has not occurred!08-08-2019 influenza, injectable, quadrivalent, preservative free Heena [place] Comment on above: Deferred: - Patient refused flu vaccine. Would not like the vaccine at all. Payers Date Payer Category Payer Unknown BCBS BC[place] - [place] P PO xxxxxxxxxxxx 2018-Present [address] [place] [address] xxxxxxxxxxxx [id number] 2016 Unknown [id number] .[id number] 1959 Unknown [id number] .[id number] 1959 Unknown [id number] 1959 Unknown [id number] 2.16.840.1.168344.3.579.2.175 1959 Unknown [id number] 2.16.840.1.705362.3.579.2.175 1959 Unknown [id number] 2.16.840.1.258875.3.579.2.176 1959 Unknown [id number] 2.16.840.1.574976.3.579.2.176 1959 Unknown [id number] 2.16.840.1.579464.3.579.2.176 1959 Unknown [id number] 2.16.840.1.120628.3.579.2.593 1959 Unknown [id number] 2.16.840.1.446516.3.579.2.593 1959 Unknown [id number] 2.16.840.1.003648.3.579.2.593 1959 Unknown [id number] 2.16.840.1.746239.3.579.2.593 1959 Unknown [id number] 2.16.840.1.440218.3.579.2.593 1959 Unknown [id number] 2.16.840.1.834692.3.579.2.593 1959 Unknown [id number] 2.16.840.1.059881.3.579.2.593 1959 Unknown [id number] 2.16.840.1.942231.3.579.2.128 6 1959 Unknown [id number] 2.16.840.1.660051.3.579.2.196 1959 Unknown [id number] 2.16.840.1.895673.3.579.2.196 Social History Date Type Detail Facility Start: 08-25-2019 End: 11-22-2020 Tobacco smoking status NHIS [place] Start: 08-25-2019 End: 08-02-2020 Cigarettes smoked current (pack per day) - Reported [facility] Start: 08-25-2019 End: 07-30-2023 Alcohol intake Current drinker of alcohol (finding) [place] Start: 08-08-2019 Tobacco Comment quit Jul 2019 [place] Start: 02-01-2019 Alcohol Comment OCCASIONALLY [place], [place] Start: 1960 Sex Assigned At Not on file M [place], [place] Start: 02-20-2020 End: 04-06-2022 Tobacco use and exposure Never used [place] Start: 05-05-2019 End: 04-06-2022 Tobacco smoking status NHIS Current every day smoker [facility] Exposure to SARS-CoV -2 (event) Unable to assess [employer] [facility] [place], [place] End: 07-23-2019 History of tobacco use Current smoker [facility] Exposure to SARS-CoV -2 (event) Not sure [facility] History of tobacco use Cigarette Smoker [facility] Start: 08-02-2020 End: 05-11-2023 Tobacco use panel [facility] Adolescent depressio n screening assessment 0 [facility] Start: 02-25-2023 Alcohol Comment Occasionally [facility] Goals Date Patient Goal Desired Activity [...] note might be different from the original. Inspector Plug Seam left voicemail for patient in regards to her appointment with tomorrow (08/26/2023). SK ordered labs at last visit, need to confirm with patient on if labs were completed or not. If not need to reschedule appointment. documented in this encounter [facility] 08-25-2023 Telephone encount er Note Inspector Plug Seam left voicemail for patient in regards to her appointment with tomorrow (08/26/2023). SK ordered labs at last visit, need to confirm with patient on if labs were completed or not. If not need to reschedule appointment. [facility] 07-30-2023 History of Presen t illness Narrative Images from the original note were not included. Subjective Patient ID: [place] Us is a 63 y.o. female. [place] presents for low back pain mostly on the right side. Pain radiates up back to neck area. She helped lift a safe at work at [employer] and felt sudden, intense pain that sent her to her knees. It was a [employer] case. This was when she was living in [place] in the mid to late . She [...] would also like a referral to an data architect manager for a second opinion. She is taking her supplement but still feels tired. They had a friend who had normal labs but the data architect manager did more labs and changed medications and [...] hypothyroidism - [facility] - [place], [place]; Future Refer to endocrinology for a second opinion Chronic obstructive pulmonary disease, unspecified COPD type ([facility]) Reviewed pulmonology consult with patient and . It was addressed at appointment and was doing ok. She needs to quit smoking. They also ordered labs but she hasn't gotten them done and didn't know she needed them. Encouraged to get labs. Obstructive sleep apnea She is not following treatment regimen. Recommended to follow recommendations. documented in this encounter [facility] 07-14-2023 Miscellaneous Notes Formattin g of this note might be different from the original. Rx sent in. Patient due recheck appointment LM on [facility]-14-2023 Telephone encount er Note Rx sent in. Patient due recheck appointment [facility] [employer] [facility] 07-14-2023 Telephone encount er Note LM on VM [facility] Diagnosis COPD exacerbation (HCC)- Primary Obstructive chronic bronchitis with exacerbation documented in this encounter [employer] Phone: evaluation note* Diagnosis Chronic rhinitis documented in this encounter [facility] [employer] System[facility] note* Diagnosis Acute exacerbation of chronic obstructive pulmonary disease (COPD) ([facility]) Obstructive chronic bronchitis with exacerbation documented in this encounter [facility] [employer] System[facility] note* Diagnosis Chronic obstructive pulmonary disease, unspecified COPD type (CMS-HCC)- Primary Right-sided low back pain without sciatica, unspecified chronicity Postoperative hypothyroidism Postsurgical hypothyroidism Obstructive sleep apnea Obstructive sleep apnea (adult) (pediatric) [facility]* Attachments The following attachments cannot be sent through Care Everywhere. * COPD Exacerbation Plan (Ugandan) documented in this encounterPeeP Mobile Digital Phone: InstructionsNot on filedocumented in this encounter [facility] [employer] SystemInstructionsNot on filedocumented in this encounter [facility] [employer] SystemInstructionsNot on filedocumented in this encounter [facility] on filedocumented in this encounter [facility] (narrative)* Consultation (Routine) - Pending Review Specialty Diagnoses / Procedures Referred By Emily horn Referred To Contact Endocrinology Diagnoses Postoperative hypothyroidism Louie Paul DO [address] [facility], [place] [address] Celia Calhoun MD [address] [address] Referral ID Status Reason Start Date Expiration Date Visits Requested Visits Authorized [id number] Pending Review Specialty Services Required 07/30/2023 07/29/2024 1 1 * Consultation (Routine) - Pending Review Specialty Diagnoses / Procedures Referred By Emily t Referred To Contact Pain Medicine Diagnoses Right-sided low back pain without sciatica, unspecified chronicity Louie Paul DO [address] [facility], [place] [address] [address] Referral ID Status Reason Start Date Expiration Date V isits Requested Visits Authorized [id number] Pending Review 07/30/2023 07/29/2024 1 1 [facility] History of Present Illness * Erin Ansari RN - 08/29/2019 7:38 PM EDT IV pulled by lazaro RN. Patient dc papers given. Patient dc'd with all belongings and scripts. * Nati Neves OT - 08/29/2019 12:48 PM EDT [facility] OCCUPATIONAL THERAPY MISSED TREATMENT NOTE INPATIENT [...] ABGs: No results for input(s): PHART, PO2ART, LMN7LPH, XDT5NLW, BEART, S0UARWOH, SGI0SCB in the last 72 hours. PT/INR: No results found for: PTINR ASSESSMENT / PLAN: Copd exac - steroid, BD - to po meds Influenza - tamiflu Cough suppressants Okay for home from pulmonary standpoint Plan of care discussed with Dr Childs . REASON FOR VISIT: copd, influenza I examined the patient myself The assessment and Plan in the note per my discussion with SANITARY CHEMIST. . * Dalila Dash RN - 08/29/2019 [...] ABGs: No results for input(s): PHART, PO2ART, XFP7NTX, SMC9HNA, BEART, X1YOBPYS, UVK2IAG in the last 72 hours. PT/INR: No results found for: PTINR ASSESSMENT / PLAN: Copd exac - steroid, BD - to po meds Influenza - tamiflu Cough suppressants . 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 PT/INR: No results found for: PTINR ASSESSMENT / PLAN: Copd exac - steroid, BD Influenza - tamiflu Cough suppressants . * Fuentes Jiang MD - 08/27/2019 11:11 AM EST Progress Note 08/27/2019 11:11 AM Name: [place] Acct: [id number] Room: Day: 1 Admit Date: 08/25/2019 3:06 [...] file Gets together: Not on file Attends worship service: Not on file Active member of [...] ABGs: No results for input(s): PHART, PO2ART, WUC2YYV, JEB9XWT, BEART, H5DUADZT, KPL4UAB in the last 72 hours. PT/INR: No [...] Other pertinent information: Medications confirmed with [facility]. Thank you, Amanda Ellison, PharmD, [facility] [phone] documented in this encounter* Joseph Butterfield [facility] - 10/08/2019 12:13 PM EDT Home [...] 10/07/2019 4:04 PM Name: [place] Us Acct: [id number] Room: Day: 1 Admit Date: 10/05/2019 2:31 [...] file Gets together: Not on file Attends worship service: Not on file Active member of [...] ABGs: No results for input(s): PHART, PO2ART, CAU4MWD, HNY9HFK, BEART, Y8SVHOGP, ZSR7NRD in the last 72 hours. PT/INR: No [...] in the note per my discussion with SANITARY CHEMIST. . * Wendy Parra, RN - 10/07/2019 12:23 AM EDT Pt. Stated my grandson came to the E.R., DrNorma Told him he probubly has cov. 19, he was not tested. Pt. Continued to say they gave him a paper on what to look for. Inspector Plug Seam updated Dr. Childs. No orders given for [...] beauchamp Notified of consult covering for dr abldwin by phone at 6:15pm 10/04 * Greta [...] up appointments. The pt refused for the conventional underwriter to take her down stairs and the [...] ABGs: No results for input(s): PHART, PO2ART, ZGP8PMS, QOE1JJX, BEART, E7SDINZW, THF2LCX in the last 72 hours. PT/INR: No [...] ABGs: No results for input(s): PHART, PO2ART, YOW3ZSH, ISN5YHE, BEART, M0LPRXHP, PBQ0QLJ in the last 72 hours. PT/INR: No [...] in the note per my discussion with SANITARY CHEMIST. . * Caden Baldwin MD - 08/08/2019 [...] in a hospital setting. Caden Baldwin MD [facility] Hospitalist * Cynthia Russell - 08/08/2019 3:40 PM EST Ms. [place] Us is a 59yowf admitted to [facility] for evaluation of COPD exacerbation. Ms. Us [...] ABGs: No results for input(s): PHART, PO2ART, LAF1BCA, NWR8KFU, BEART, W9MIOZVG, LAB5WMH in the last 72 hours. PT/INR: No [...] Ana Strickland MD [facility] [address] [id number] [phone] * Laura Mathis RN - 08/07/2019 3:15 [...] Tylenol #3 are nonformulary and unavailable at [place] [facility] suggested Phenergan with codeine. He is very insistent that we try to obtain some, he used it at [place] last month. Per [facility], [facility] appears to have Tylenol #3 still in stock. Called and spoke with pharmacist at [place], she will call her manager environmental affairs or head buyer tobacco and find out if she can share with us, will call us back this evening. Awaiting call back. Analia James,PharmD, 08/06/2019, 9:28 PM * Tere Tafoya RN - 08/06/2019 8:45 PM EST Return call received from Dr Childs. He doesn't want Phenergan with codeine due to patient being on Hycodan. Wants to see if pharmacy can get in Codeine tablets. Inspector Plug Seam talked with pharmacy and was informed there [...] Other pertinent information: Medications confirmed with [facility]. 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 Advance Directives and Living Will Power of Trailer Truck Driver Latest Code Status on File Code Status [...] Documents on File Type Date Recorded Patient Supervisor [employer] Expl anation ACP-Advance Directive ACP-Power of Trailer Truck Driver Latest Code Status on File Code Status Date Activated Date Inactivated Comments Full Code 10/05/2019 2:43 PM 10/08/2019 2:49 PM Full Code 08/27/2019 11:11 AM 08/29/2019 9:40 PM Full Code 08/25/2019 6:05 PM 08/27/2019 11:11 AM Full Code 08/25/2019 5:50 PM 08/25/2019 6:05 PM Full Code 08/05/2019 4:58 PM 08/10/2019 8:24 PM Documents on File Type Date Recorded 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 * Cough (Ugandan) * URI (Upper Respiratory Infection): Viral (Ugandan) * Coronavirus Disease COVID-19: Isolation (Ugandan) documented in this encounter* Instructions* Misty Sharp [...] through Care Everywhere. * COPD Exacerbation Plan (Ugandan) * COPD (Ugandan) * Smoking Cessation: Health Benefits: General Info (Ugandan) documented in this encounter* Instructions* Warren Olivas [...] through Care Everywhere. * COPD: General Info (Ugandan) documented in this encounter Reason for Referral Status Reason Specialty Diagnoses / Procedures Re ferred By Contact Referred To Contact Closed Radiology Diagnoses Osteoarthritis of right acromioclavicular joint Procedures MRI SHOULDER RIGHT WO CONTRAST Mao Shepherd MD [address] [address] Summary Purpose Family History No Family History [...] A Influenza A Caden Baldwin MD [address] [place] [address] [facility] Reason Comments Cough Status Reason Specialty Diagnoses / Procedures Re ferred By Contact Referred To Contact Closed Radiology Diagnoses Osteoarthritis of right acromioclavicular joint Procedures MRI SHOULDER RIGHT WO CONTRAST Mao Shepherd MD [address] [address] Status Reason Specialty Diagnoses / Procedures Referre d By Contact Referred To Contact Diagnoses chronic obstructive pulmonary disease Forest Childs MD [address] [facility] [address] [place] [address] [facility] Reason Comments Cough Shortness of Breath Status Reason Specialty Diagnoses / Procedures Referre d By Contact Referred To Contact Diagnoses COPD exacerbation (HCC) Caden Baldwin MD [address] [place] [address] [facility] Reason Comments Cough Shortness of Breath Chills Emesis Reason Comments Shortness of Breath Cough Fatigue Headache Reason Comments Med Refill Reason Comments discuss pain. back down to h ip and up to the neck. Would like also a referral to data architect manager. Chief complaint tired all the time INFORMATION SOURCE (unrecogn ized section and content) DATE CREATED AUTHOR 04/17/2020 [facility] DATE CREATED AUTHOR AUTHOR'S ORGANIZ ATION 11/23/2020 [facility] DATE CREATED AUTHOR AUTHOR'S ORGANIZ ATION 09/21/2021 [facility] DATE CREATED AUTHOR AUTHOR'S ORGANIZ ATION 12/20/2021 [facility] DATE CREATED AUTHOR AUTHOR'S ORGANIZ ATION 08/03/2023 [facility] DATE CREATED AUTHOR AUTHOR'S ORGANIZ ATION 08/21/2023 [facility] Ordered Prescriptions (unrec ognized section and content) [...] Care Teams (unrecognized sec tion and content) Patient Access Manager Relationship Specialty Start Date End Date Louie Paul DO [address], [facility] [place] [address] PCP - General Family Medicine 09/27/21 Patient Access Manager Relationship Specialty Start Date End Date Louie Paul DO [address], [facility] [place] [address] PCP - General Family Medicine 09/27/21 Patient Access Manager Relationship Specialty Start Date End Date Louie Paul DO [address], [place] [address] PCP - General Family Medicine 09/27/21 Patient Access Manager Relationship Specialty Start Date End Date Louie Paul DO [address], [place] [address] PCP - General Family Medicine 09/27/21 FOR [...] BE BASED ON THE PRIMARY CLINICAL RECORDS. [facility]. provides no warranty or guarantee of the accuracy or completeness of information in this document.
[2023-08-31 09:18] VITALS: BP 139/89; PULSE 96; RESP 16; TEMP 36.2; O2SAT 97
[2023-08-31 10:17] VITALS: BP 123/83; PULSE 96; RESP 18; O2SAT 94
[2023-08-31 10:18] VITALS: BP 126/76; PULSE 100; RESP 18; O2SAT 93
--- NOTE | 2023-08-31 10:20 | W.PM.PROCNOT ---
Date of procedure: 08/31/23 Pre-op diagnosis: Lumbar spondylosis Post-op diagnosis: same as pre-op Procedure: Procedure: Bilateral L4-5, l5-S1 medial branch block Medications: Bupivacaine 0.25% 6cc The patient was seen and examined in the preoperative holding area.? An informed consent was obtained and placed on the chart.? The patient was brought to the medical procedure unit and placed in the prone position.? A timeout was completed verifying correct patient, procedure site, positioning, plan, and special equipment.? Using aseptic technique, the needle was placed at left L4. Under direct fluoroscopic visualization a Quincke-tipped spinal needle was advanced to the junction of the superior articulating process with the transverse process at the designated medial branch segment.? Preceded by negative aspiration, the above-mentioned injectate was placed in 1 mL aliquots.? The procedure was repeated at left L5, S1.? The needle was removed and insertion site was covered. The same procedure, at the same levels, was completed on the right side. The patient was taken to the postprocedural recovery area and monitored for an appropriate length of time before found suitable for discharge in the company of a responsible adult. Anesthesia: Local Surgeon: [place] Pathology: none sent Condition: stable Disposition: no change
[2023-08-31] MEDS: LIDOCAINE HCL 2% PF 100 MG/5 ML VIAL 2 ML INJ (10:21)
[2023-08-31] MEDS: BUPIVACAINE HCL 0.25% PF 25 MG/10 ML VIAL 8 ML INJ (10:21)
== END 2023-08-31 10:24 | disposition home or self-care (01) ==
PROVIDERS: PCP Family Medicine; Visit Provider Anesthesiology
DX: M47.816 Spondylosis without myelopathy or radiculopathy, lumbar region (principal)
CPT/HCPCS: 64493; 64494

== ENCOUNTER 2023-09-10 13:16 | Outpatient (OUT) | payer BC, SELFPAY ==
--- NOTE | 2023-09-10 13:51 | P.CN_ITS ---
Consult Note: HPI Data of Consult Patient: known to practice within the last 3 years Consult date: 08/03/23 Requesting Physician: Giulia Carlin NP Primary Care Provider: HE PAUL Consult Narrative Reason for consult: low back pain Narrative: 63yof who presents for evaluation. worsening axial low back pain for several years. imaging reviewed, which shows moderate facet arthropathy in lower lumbar spine. continues in >6 weeks of provider directed home exercise program, with no benefit. uses tylenol as needed, without benefit. cannot take nsaids due to eliquis. denies adverse med side effects. Patient recently underwent bilateral L4-5 L5-S1 facet medial branch block #2 with >80% improvement immediately following and for 1 day. cc:: CC: Giulia Carlin NP Review of Systems 2 ROS0 Status of ROS 10 or more systems reviewed and unremark able except as noted in history and below Musculoskeletal Reports: back pain and joint pain PFSH PFSH Medical History S/P neck surgery, follow-up exam ?Z09 - Encounter for follow-up examination after completed treatment for conditions other than malignant neoplasm (ICD-10) Upper back pain ?M54.9 - Dorsalgia, unspecified (ICD-10) Neck pain ?M54.2 - Cervicalgia (ICD-10) Low back pain ?M54.50 - Low back pain, unspecified (ICD-10) Hypothyroidism ?E03.9 - Hypothyroidism, unspecified (ICD-10) Pulmonary embolism ?I26.99 - Other pulmonary embolism without acute cor pulmonale (ICD-10) COPD (chronic obstructive pulmonary disease) ?J44.9 - Chronic obstructive pulmonary disease, unspecified (ICD-10) Smoker ?F17.200 - Nicotine dependence, unspecified, uncomplicated (ICD-10) Chronic cough ?R05.3 - Chronic cough (ICD-10) Atrial fibrillation ?I48.91 - Unspecified atrial fibrillation (ICD-10) Surgical History H/O thumb surgery ?Z98.890 - Other specified postprocedural states (ICD-10) Hx of appendectomy ?Z90.49 - Acquired absence of other specified parts of digestive tract (ICD- 10) H/O: hysterectomy ?Z90.710 - Acquired absence of both cervix and uterus (ICD-10) H/O carpal tunnel repair ?Z98.890 - Other specified postprocedural states (ICD-10) H/O thyroidectomy ?E89.0 - Postprocedural hypothyroidism (ICD-10) Meds Home Medications and Allergies Home Medications ?Medication ?Instructions ?Recorded ?Confirmed ?Type albuterol sulfate 0.63 mg/3 mL 0.63 mg inhalation TID PRN 08/03/23 08/31/23 History solution for nebulization shortness of breath or wheezing apixaban 5 mg tablet (Eliquis) 5 mg PO BID 08/03/23 08/31/23 History budesonide 160 mcg-glycopyr 9 2 inh inhalation BID 08/03/23 08/31/23 History mcg-formot 4.8 mcg/actuation HFA inhaler (Breztri Ciklumphere) diltiazem HCl 120 mg capsule,24 120 mg PO DAILY 08/03/23 08/31/23 History hr,extended release duloxetine 20 mg capsule,delayed 20 mg PO DAILY 08/03/23 08/31/23 History release levothyroxine 125 mcg capsule 125 mcg PO DAILY 08/03/23 08/31/23 History methocarbamol 750 mg tablet 750 mg PO Q6H PRN pain #20 tabs 08/29/23 08/31/23 Rx prednisone 20 mg tablet 40 mg (2 x 20 mg) PO DAILY 3 days 08/29/23 08/31/23 Rx #6 tabs Allergies Allergy/AdvReac Type Severity Reaction Status Date / Time No Known Drug Allergies Allergy Verified 08/31/23 09:24 Exam Narrative Exam Narrative: Psych-alert and oriented x 3. Attentive and appropriate, constitutionally normal, displays normal mood and affect per situation.? There are no obvious deficits in memory, reasoning, or intellect.? Skin-no obvious rashes, bruising, erythema noted to the patient's area of pain. Extremities- extremities are warm with minimal edema and palpable pulses. Lumbar-no significant tenderness to palpation noted in the lumbar spine and paraspinal musculature.? Pain is elicited with extension, and lateral rotation of the lumbar spine. Range of motion is slightly diminished with these motions due to pain. Facet loading maneuvers are positive bilaterally and do appear to be concordant with the patient's normal complaints of pain.? Coordination remains intact.? Gait remains non-antalgic. Constitutional Documenting provider has reviewed patient's vital signs: yes Common normals: no apparent distress, oriented x3, healthy appearing, alert and well nourished General appearance: cooperative HENMT Common normals: normocephalic, hearing grossly normal bilaterally and moist oral mucous membranes Head and scalp: normocephalic Eye Common normals: PERRL Pupil: PERRL Neck & C-Spine Common normals: full ROM General: normal visual inspection Chest Common normals: inspection of chest normal Respiratory Common normals: normal respiratory effort, no retractions and no use of accessory muscles Extremity Right upper extremity: shoulder joint Other: negative empty can, negative crossbody abduction, negative scratch test and posterior lift off pain over left suprscapular nerve, pain worsened with palpation. increased pain when lifting arm up over head. strength 5/5 BUE Extremity image (back): 2 1. Neuro Common normals: oriented x3, CN's II-XII intact bilaterally, moves all extremities, no focal motor deficits, no sensory deficits noted and deep tendon reflexes 2+ bilaterally Sensorium/orientation: alert Motor exam: strength 5/5 throughout and no movement abnormalities noted Psych Common normals: mental status grossly normal, thought process normal, cooperative, affect normal, speech normal and activity/motor behavior normal Speech: normal speech Thought process: normal thought process Assessment and Plan Assessment and Plan (1) Lumbar spondylosis: Assessment and Plan: The patient has had over 3 months of moderate to severe low back pain with functional impairment and inadequate response to conservative care including NSAIDS (unless there are contraindication such as concurrent blood thinners), multiple oral or topical pain medications, and home exercise program/physical therapy.? Patient has completed >6 weeks of guided home exercise program and/or formal physical therapy program without relief of their symptoms.? I have reviewed the imaging of the lumbar spine and no red flags were identified.? The imaging reveals radiographic findings consistent with lumbar spondylosis ? The Oswestry Disability Index was completed, and the patient scored a 40%.? We discussed the risks and benefits of the procedure with the patient, and we are NOT planning on using sedation as outlined in the guidelines from Medicare unless there is a documented reason that sedation would be strongly recommended.?? ?The procedure will be completed with fluoroscopic guidance.? (2) Right shoulder pain: (3) OA (osteoarthritis) of shoulder: Plan bilateral L4-5 L5-S1 facet medial branch thermal RFA under fluoroscopy with 10mg PO valium due to anxiety, pt had greater than 80% improvement in pain and functional ability immediately following and hours after bilateral L4-5 L5-S1 facet medial branch block #1 and #2 continue current medications, tolerating well without side effects reviewed right shoulder xray from ER visit, consider right suprascapular and axillary nerve block in the future f/u 1 month after RFAs
== END 2023-09-10 13:17 | disposition home or self-care (01) ==
LOC: PM 13:19
PROVIDERS: PCP Family Medicine; Visit Provider Nurse Practitioner
DX: M47.816 Spondylosis without myelopathy or radiculopathy, lumbar region (principal); M25.511 Pain in right shoulder; M19.019 Primary osteoarthritis, unspecified shoulder
CPT/HCPCS: G0463

== ENCOUNTER → 2023-10-12 08:45 | Day surgery (SDC) | payer BC, SELFPAY | END | disposition home or self-care (01) | LOC: SURGOUT 08:45 | PROVIDERS: PCP Family Medicine; Visit Provider Anesthesiology | DX: Z53.9 Procedure and treatment not carried out, unspecified reason (principal) ==

== ENCOUNTER 2023-10-26 06:55 | Day surgery (SDC) | payer BC, SELFPAY ==
--- OUTSIDE RECORDS SUMMARY | 2023-10-26 06:57 | XMS_ITS | CCD ---
Author Organization [facility] Care Team Providers Care Furniture Detailer Name Role Phone Najma Ken Primary Care Provider Caden Baldwin Primary Care Provider Caden Baldwin Primary Care Provider NAJMA KEN Referring Unavailabl e NAJMA KEN Primary Care Unavailabl e NAJMA KEN Referring Unavailabl e CADEN BALDWIN Primary Care Unavailabl e Caden Baldwin Primary Care Provider Caden Baldwin MD Primary Care Provider NAJMA KEN Referring Unavailabl e CADEN BALDWIN Primary Care Unavailabl e CORA, ENESI O Referring Unavailable CADEN BALDWIN Primary Care Unavailabl e CADEN BALDWIN Primary Care Unavailabl e HEENA JOHN Attending Unavailable PAY, DR FERRER Admitting Unavailable PAY, DR FERRER Attending Unavailable PAY, DR FERRER Consulting Unavailable JG, PALMER Consulting Unavailable FURLONG, DR LOUIE Hawkins Primary Care Unavailable MISC, DR IBRAHIM Consulting Unavailable JODY, MOHINDER Admitting Unavailable JODY, MOHINDER Attending Unavailable FURLONG, DR LOUIE Hawkins Admitting Unavailable FURLONG, DR LOUIE Hawkins Attending Unavailable FURLONG, DR LOUIE Hawkins Consulting Unavailable ASHLEE ESCUDERO Consulting Unavailable JODY, MOHINDER Primary Care Unavailable JODY, MOHINDER Admitting Unavailable JODY, MOHINDER Attending Unavailable JODY, MOHINDER Consulting Unavailable MISC, DR IBRAHIM Admitting Unavailable FURLOISIDORO, DR LOUIE Hawkins Primary Care Unavailable MIS, DR IBRAHIM Attending Unavailable MISC, DR IBRAHIM Consulting Unavailable DEEPTI, DR BARRON Strauss Consulting Unavailable TIMMIS, DR LARA Admitting Unavailable FURLONG, DR LOUIE Hawkins Primary Care Unavailable TIMMIS, DR LARA Attending Unavailable TIMMIS, DR LARA Consulting Unavailable DEEPTI, DR BARRON Strauss Consulting Unavailable MOHINDER VERA Consulting Unavailable MORTEZANG, DR LOUIE Hawkins Primary Care Unavailable JAZMINE [...] dilTIAZem Drug Allergy 10-12-2019 Itching, Swelling, Rash [facility] (3 sources) dilTIAZem Drug Allergy 10-12-2019 Itching, Swelling, Rash [facility]- [place], [place] Medications Current Medications Medication [...] greater than 100.5 F (38 C), Starting [facility] 08/25/19 at 1749 Maximum dose of [...] solution Indications: Chronic respiratory failure with hypoxia [place] Inhale 3 mL (2.5 mg total) by nebulization every 6 (six) hours as needed for wheezing. 75 mL 2 05/11/2023 Active Start: 09-27-2021 take 2 puff(s) by in halation four times daily albuterol (PROVENTIL HFA;VENTOLIN HFA) 90 mcg/actuation inhaler Indications: Acute exacerbation of chronic obstructive pulmonary disease (COPD) ([facility] Inhale 2 puffs 4 (four) times a [...] tablet (16 sources) Factor Xa Inhibitor Start: take 1 tablet by mouth twice daily ELIQUIS 5 mg tablet Indications: Paroxysmal atrial fibrillation ([facility] TAKE 1 TABLET BY MOUTH TWICE A DAY 180 tablet 1 04/16/2023 Active Start: 10-01-2020 take 1 tablet by [facility] twice daily ELIQUIS 5 MG TABS tablet TAKE 1 TABLET BY MOUTH TWICE A DAY 180 tablet 1 10/01/2020 Active Start: 01-17-2020 take 1 tablet by [facility] twice daily ELIQUIS 5 MG TABS tablet TAKE 1 TABLET BY MOUTH TWICE A DAY 180 tablet 1 01/17/2020 Active Start: 07-20-2019 take 1 tablet by terrie twice daily apixaban (ELIQUIS) 5 MG TABS tablet Take 1 tablet by mouth 2 times daily 180 tablet 1 07/20/2019 Active Start: 02-01-2019 [facility] ap[facility] (ELIQUIS) 5 MG TABS [...] take 2 puff(s) by inhalation at bedtime qkcvwrqvks-rramzgoa-dro moterol (BREZTRI AEROSPHERE) 160-9-4.8 mcg/actuation HFA aerosol inhaler Indications: Acute exacerbation of chronic obstructive pulmonary disease (COPD) [place] INHALE 2 PUFFS IN THE MORNING AND AT BEDTIME 10.7 g 0 07/19/2023 Active Start: 03-31-2023 End: 07-19-2023 take 2 puff(s) by inhalation at bedtime mtpnmuyujq-pwucuipx-trvdfckria (BREZTRI AEROSPHERE) 160-9-4.8 mcg/actuation HFA aerosol inhaler Indications: Acute exacerbation of chronic obstructive pulmonary disease (COPD) ([facility] Inhale 2 puffs in the morning and [...] Active Start: 11-28-2019 [facility] dilTIAZem (CARDIZEM) 30 [...] Start: 11-09-2020 take 1 capsule by mo [facility] once daily DULoxetine (CYMBALTA) 20 MG extended [...] 0 08/29/2019 08/30/2019 Active polyethylene glycol 3350 59249 mg powder for oral solution (1 source) [...] 08-27-2019 Intravenous, at 75 mL/hr, CONTINUOUS, Starting [facility] 08/25/19 at 1830 Start: 08-25-2019 End: 08-25-2019 [...] 1 tablet, Oral, DAILY, First dose on Thu08/25/19 at 1830 Start: 08-05-2019 take 1 tablet [...] 07-02-2021 Episodic Other aftercare (1 source) Other terminal manager (current) drug therapy; Translations: [OTH [facility]DC CURRENT DRUG THERAPY] Onset: 07-04-2021 Episodic Other aftercare (1 source) intermediate (current) use of anticoagulants; Translations: [FILER HELPER CURRNT USE ANTICOAGULANTS] Onset: 07-04-2021 Episodic Other [...] Views Ordered By: Edilma Cuevas on 07-30-2023 [facility] Radiology Study observation (narrative) [facility] CT NECK [facility] W [place] CT [...] Date: 2021-10-04 09:24 Normal [facility] COMPREHENSIVE METABOLIC PANE Deven 09-19-2021 Albumin [Mass/Vol] 3.9 g/dL Normal 3.6-5.1 [facility] Comment on above: Performed By: #### 7 600, 10797, 00722 #### [facility] [place] [address] Computer Assistant: Chalino Levy MD Albumin/Globulin [Mass ratio] 1.3 {ratio} Normal 1.0-2.5 [facility] Comment on above: Performed By: #### 7 600, 75556, 30009 #### [facility] [place] [address] Computer Assistant: Chalino Levy MD ALP [Catalytic activity/Vol] 71 U/L Normal 37-153 [facility] Comment on above: Performed By: #### 7 600, 70006, 77395 #### [facility] [place] [address] Computer Assistant: Chalino Levy MD ALT [Catalytic activity/Vol] 9 U/L Normal 6-29 [facility] Comment on above: Performed By: #### 7 600, 91559, 27641 #### [facility] [place] [address] Computer Assistant: Chalino Levy MD AST [Catalytic activity/Vol] 10 U/L Normal 10-35 [facility] Comment on above: Performed By: #### 7 600, 10437, 92629 #### [facility] [place] [address] Computer Assistant: Chalino Levy MD Bilirubin [Mass/Vol] 0.6 mg/dL Normal 0.2-1.2 [facility] Comment on above: Performed By: #### 7 600, 95448, 82887 #### [facility] [place] [address] Computer Assistant: Chalino Levy MD BUN/CREATININE RATIO NOT APPLICABLE Normal 6-22 [facility] Comment on above: Performed By: #### 7 600, 86843, 72429 #### [facility] [address], [address] [place] [address] Computer Assistant: Chalino Levy MD Calcium [Mass/Vol] 9.0 mg/dL Normal 8.6-10.4 [facility] Comment on above: Performed By: #### 7 600, 99445, 32460 #### [facility] [address], [address] [place] [address] Computer Assistant: Chalino Levy MD Chloride [Moles/Vol] 103 mmol/L Normal 98-110 [facility] Comment on above: Performed By: #### 7 600, 02198, 77087 #### [facility] [address], [address] [place] [address] Computer Assistant: Chalino Levy MD CO2 [Moles/Vol] 31 mmol/L Normal 20-32 [facility] Comment on above: Performed By: #### 7 600, 24257, 44362 #### [facility] [place] [address] Computer Assistant: Chalino Levy MD Creatinine [Mass/Vol] 0.79 mg/dL Normal 0.50-0.99 [facility] Comment on above: Result Comment: For patients >49 years of age, the reference limit for Creatinine is approximately 13% higher for people identified as -Malawian. Performed By: #### 7 600, 83215, 30319 #### [facility] [address], [address] [place] [address] Computer Assistant: Chalino Levy MD eGFR NON-AFR. RUSSIAN 80 mL/min/1.73m2 Normal > OR = 60 [facility] Comment on above: Performed By: #### 7 600, 12440, 51657 #### [facility] [place] [address] Computer Assistant: Chalino Levy MD GFR/1.73 sq M.predicted among blacks MDRD (S/P/Bld) [Vol rate/Area] 93 mL/min/{1.73_m2} Normal > OR = 60 [facility] Comment on above: Performed By: #### 7 600, 38149, 97137 #### [facility] [place] [address] Computer Assistant: Chalino Levy MD Globulin (S) [Mass/Vol] 3.0 g/dL Normal 1.9-3.7 [facility] Comment on above: Performed By: #### 7 600, 71657, 90656 #### [facility] [place] [address] Computer Assistant: Chalino Levy MD Glucose [Mass/Vol] 105 mg/dL High 65-99 [facility] Comment on above: Result Comment: Fasting reference interval For someone without known diabetes, a glucose value between 100 and 125 mg/dL is consistent with prediabetes and should be confirmed with a follow-up test. Performed By: #### 7 600, 48750, 11397 #### [facility] [place] [address] Computer Assistant: Chalino Levy MD Potassium [Moles/Vol] 4.3 mmol/L Normal 3.5-5.[address] [facility] Comment on above: Performed By: #### 7 600, 79492, 62630 #### [facility] [place] [address] Computer Assistant: Chalino Levy MD Protein [Mass/Vol] 6.9 g/dL Normal 6.1-8.1 [facility] Comment on above: Performed By: #### 7 600, 11007, 21422 #### [facility] [place] [address] Computer Assistant: Chalino Levy MD Sodium [Moles/Vol] 140 mmol/L Normal 135-146 [facility] Comment on above: Performed By: #### 7 600, 75844, 96415 #### [facility] [place] [address] Computer Assistant: Chalino Levy MD Urea nitrogen [Mass/Vol] 23 mg/dL Normal 7-25 [facility] Comment on above: Performed By: #### 7 600, 60382, 40804 #### [facility] [address], [address] [place] [address] Computer Assistant: Chalino Levy MD LIPID PANEL, [facility] 03-3 Cholesterol [Mass/Vol] 276 mg/dL High <200 [facility] Comment on above: Order Comment: FASTI NG:YES FASTING: YES Performed By: #### 7 600, 74993, 39924 #### [facility] [address], [address] [place] [address] Computer Assistant: Chalino Levy MD Cholesterol in HDL [Mass/Vol] 48 mg/dL Low > OR = 50 [facility] Comment on above: Order Comment: FASTI NG:YES FASTING: YES Performed By: #### 7 600, 27106, 12216 #### [facility] [address], [address] [place] [address] Computer Assistant: Chalino Levy MD Cholesterol in LDL [Mass/Vol] [...] Jose Roberto BOTELLO et al. EDGARDO. 2013;310(19): 2932-7701 (http://education.UniversityNow.Daylife/faq/PVZ589) Performed By: #### 7 600, 17612, 32704 #### [facility] [address], [address] [place] [address] Computer Assistant: Chalino Levy MD Cholesterol.total/Chol esterol in HDL [Mass ratio] 5.8 {ratio} High <5.0 [facility] Comment on above: Order Comment: FASTI NG:YES FASTING: YES Performed By: #### 7 600, 66596, 58859 #### [facility] [address], [address] [place] [address] Computer Assistant: Chalino Levy MD NON HDL CHOLESTEROL 228 [...] therapeutic option. Performed By: #### 7 600, 07959, 86294 #### [facility] [address], [address] [place] [address] Computer Assistant: Chalino Levy MD Triglyceride [Mass/Vol] 212 mg/dL High <150 [facility] Comment on above: Order Comment: FASTI NG:YES FASTING: YES Result Comment: If a non-fasting specimen was collected, consider repeat triglyceride testing on a fasting specimen if clinically indicated. Levy et al. J. of Clin. Lipidol. 2015;9:129-169. Performed By: #### 7 600, 88804, 06162 #### [facility] [place] [address] Computer Assistant: Chalino Levy MD TSH+FREE T4on 09-19-2021 Free T4 [Mass/Vol] 1.4 ng/dL Normal 0.8-1.8 [facility] Comment on above: Performed By: #### 7 600, 78120, 17942 #### [facility] [place] [address] Computer Assistant: Chalino Levy MD TSH Qn 2.51 m[IU]/L Normal 0.40-4.50 [facility] Comment on above: Performed By: #### 7 600, 13882, 46739 #### [facility] [address], [address] [place] [address] Computer Assistant: Chalino Levy MD XR CHEST 2 Von [...] Date: 2021-09-12 16:03 Normal [facility] US ST HEAD_NECKon 08-25-[address] HEAD_NECK EXAM: US ST HEAD_NEC K HISTORY: Mass of neck COMPARISON: Ultrasound neck 02/07/2015. CT neck 01/24/2015 TECHNIQUE: Focused sonographic images in the posterior occipital region in the patient's reported area of concern. Additional left neck was scanned per front facer. FINDINGS: No suspicious mass identified within the [...] Date: 2021-08-25 09:54 Normal [facility] CBC AUTO DIFFon 07-02-2021 BASO # 0.0 103/ul Normal 0.0-0.1 [facility] Comment on above: Performed By: #### C BC #### [facility] [address] [place] [address] [address] Bibi Emerson Basophils/100 WBC (Bld) 0.3 % Normal 0.2-2.0 [facility] Comment on above: Performed By: #### C BC #### [facility] [address] [place] [address] Dr. Bibi Emerson EO # 0.0 103/ul Normal 0.0-0.7 [facility] Comment on above: Performed By: #### C BC #### [facility] [address] [place] [address] Dr. Bibi Emerson Eosinophils/100 WBC (Bld) 0.0 % Critically low 0.9-7.0 [facility] Comment on above: Performed By: #### C BC #### [facility] [address] [place] [address] Dr. Bibi Emerson Erythrocyte distribution width (RBC) [Ratio] 13.0 % Normal 11.0-15.0 [facility] Comment on above: Performed By: #### C BC #### [facility] [address] [place] [address] Dr. Bibi Emerson Hematocrit (Bld) [Volume fraction] 47.0 % Normal 36.0-48.0 [facility] Comment on above: Performed By: #### C BC #### [facility] [address] [place] [address] Dr. Bibi Emerson Hemoglobin (Bld) [Mass/Vol] 15.5 g/dL Normal 12.0-16.0 [facility] Comment on above: Performed By: #### C BC #### [facility] [address] [place] [address] Dr. Bibi Emerson IG # 0.01 10e3/ul Normal 0.00-0.03 [facility] Comment on above: Performed By: #### C BC #### [facility] [address] [place] [address] Dr. Bibi Emerson IG % 0.2 % Normal 0.0-0.5 [facility] Comment on above: Performed By: #### C BC #### [facility] [address] [place] [address] Dr. Bibi Emerson LYMPH # 2.0 103/ul Normal 1.2-3.8 [facility] Comment on above: Performed By: #### C BC #### [facility] [address] [place] [address] Dr. Bibi Emerson Lymphocytes/100 WBC (Bld) 30.7 % Normal 20.5-60.0 [facility] Comment on above: Performed By: #### C BC #### [facility] [address] [place] [address] Dr. Bibi Emerson MANUAL DIFF REQ NO Normal [facility] Comment on above: Performed By: #### C BC #### [facility] [address] [place] [address] Dr. Bibi Emerson MCH (RBC) [Entitic mass] 29.8 pg Normal 26.7-34.0 [facility] Comment on above: Performed By: #### C BC #### [facility] [address] [place] [address] Dr. Bibi Emerson MCHC (RBC) [Mass/Vol] 33.0 g/dL Normal 29.9-35.2 [facility] Comment on above: Performed By: #### C BC #### [facility] [address] [place] [address] Dr. Bibi Emerson MCV (RBC) [Entitic vol] 90.2 fL Normal 81.0-99.0 [facility] Comment on above: Performed By: #### C BC #### [facility] [address] [place] [address] Dr. Bibi Emerson MONO # 0.5 103/ul Normal 0.3-0.8 [facility] Comment on above: Performed By: #### C BC #### [facility] [address] [place] [address] Dr. Bibi Emerson Monocytes/100 WBC (Bld) 7.9 % Normal 1.7-12.0 [facility] Comment on above: Performed By: #### C BC #### [facility] [address] [place] [address] Dr. Bibi Emerson NEUT # 4.0 103/ul Normal 1.4-6.5 [facility] Comment on above: Performed By: #### C BC #### [facility] [address] [place] [address] Dr. Bibi Emerson Neutrophils/100 WBC (Bld) 60.9 % Normal 43.0-75.0 [facility] Comment on above: Performed By: #### C BC #### [facility] [address] [place] [address] Dr. Bibi Emerson Platelet mean volume (Bld) [Entitic vol] 8.9 fL Critically low 9.5-13.5 [facility] Comment on above: Performed By: #### C BC #### [facility] [address] [place] [address] Dr. Bibi Emerson PLT 303 103/ul Normal 150-450 [facility] Comment on above: Performed By: #### C BC #### [facility] [address] [place] [address] Dr. Bibi Emerson RBC 5.21 106/ul Normal 4.20-5.40 [facility] Comment on above: Performed By: #### C BC #### [facility] [address] [place] [address] Dr. Bibi Emerson WBC 6.5 103/ul Normal 4.0-11.0 [facility] Comment on above: Performed By: #### C BC #### [facility] [address] [place] [address] Dr. Bibi Emerson [facility]on 06-22 SARS-CoV-2 (COVID-19) RNA RAAD+probe Ql (Unsp spec) Detected Critically abnormal NOT DETECTED [facility] Comment on above: Result Comment: This test is not yet approved or cleared by the [place] FDA. When there are no FDA-approved or cleared tests available, and other criteria are met, FDA can make tests available under an emergency access mechanism called an Emergency Use Authorization (EUA). The EUA for this test is supported by the [place] of Health and Human Service's (HHS's) declaration [...] By: #### C VDTBH #### [facility] [address] [place] [address] Dr. Bibi Emerson [facility] Normal [facility] Comment on above: Result Comment: Nega tive for Flu A protein angiten. Infection due to Flu A cannot be ruled out. Flu A angiten in the sample may be below the detection limit of the test. Performed By: #### I NFLUAB ####[facility] [address] [place], [place] [address]Dr. Bibi Emerson INFLUBNEG SEE BELOW Normal [facility] Comment on above: Result Comment: Nega tive for Flu B protein antigen. Infection due to Flu B cannot be ruled out. Flu B antigen in the sample may be below the detection limit of the test. Performed By: #### I NFLUAB ####[facility] [address] [place], [place] [address]DrNorma Emerson INFLUENZA A AG Negative Normal NEGATIVE SEE COMMENT [facility] Comment on above: Performed By: #### I NFLUAB ####[facility] [address] [place], [place] [address]Dr. Bibi Emerson INFLUENZA B AG Negative Normal NEGATIVE SEE COMMENT [facility] Comment on above: Performed By: #### I NFLUAB ####[facility] [address] [place], [place] [address]DrNorma Emerson INTERNAL CONTROLS Within Normal Limits Normal Wi thin Normal Limits [facility] Comment on above: Performed By: #### I NFLUAB ####[facility] [address] [place], [place] [address]DrNorma Emerson PROF CHEM 8 (BAS METB)on Anion gap [Moles/Vol] 12.0 mmol/L Normal Th [facility] Comment on above: Performed By: #### B MP #### [facility] [address] [place] [address] Dr. Bibi Emerson Calcium [Mass/Vol] 8.2 mg/dL Critically low 8.4-10.2 Th e [facility] Comment on above: Performed By: #### B MP #### [facility] [address] [place] [address] [address] Bibi Emerson Chloride [Moles/Vol] 102 mmol/L Normal 98-107 [facility] Comment on above: Performed By: #### B MP #### [facility] [address] [place] [address] [address] Bibi Emerson CO2 [Moles/Vol] 27.6 mmol/L Normal 22.0-30.0 [facility] Comment on above: Performed By: #### B MP #### [facility] [address] [place] [address] [address] Bibi Emerson Creatinine [Mass/Vol] 1.03 mg/dL Normal 0.52-1.04 [facility] Comment on above: Performed By: #### B MP #### [facility] [address] [place] [address] [address] Bibi Emerson EGFR-AF RUSSIAN >60 Normal >=60 [facility] Comment on above: Performed By: #### B MP #### [facility] [address] [place] [address] [address] Bibi Emerson EGFR-NON AF RUSSIAN 54 mL/min/1.73m2 Critically low >=60 [facility] Comment on above: Performed By: #### B MP #### [facility] [address] [place] [address] [address] Bibi Emerson Glucose [Mass/Vol] 127 mg/dL Critically high 74-106 [facility] Comment on above: Performed By: #### B MP #### [facility] [address] [place] [address] [address] Bibi Emerson Potassium [Moles/Vol] 3.6 mmol/L Normal 3.4-5.0 [facility] Comment on above: Performed By: #### B MP #### [facility] [address] [place] [address] [address] Bibi Emerson Sodium [Moles/Vol] 138 mmol/L Normal 137-145 [facility] Comment on above: Performed By: #### B MP #### [facility] [address] [place], [place] [address] Dr. Bibi Emerson Urea nitrogen [Mass/Vol] 18.0 mg/dL Critically high 7.0-17.0 [facility] Comment on above: Performed By: #### B MP #### [facility] [address] [place], [place] [address] Dr. Bibi Emerson Urea nitrogen/Creatinine [Mass ratio] 17.5 mg/mg Normal [facility] Comment on above: Performed By: #### B MP #### [facility] [address] [place], [place] [address] Dr. Bibi Emerson XR CHEST 1 Von [...] Date: 2021-07-02 21:16 Normal [facility] Covid-19 PCR ([facility])on SARS-CoV-2 (COVID-19) RNA RAAD+probe Ql (Unsp spec) Not detected Normal NOT DETECTED [facility] Comment on above: Result Comment: This test is not yet approved or cleared by the [place] FDA. When there are no FDA-approved or cleared tests available, and other criteria are met, FDA can make tests available under an emergency access mechanism called an Emergency Use Authorization (EUA). The EUA for this test is supported by the [employer] of Health and Human Service's (HHS's) declaration [...] Performed By: #### C VDTBH ####[facility] [address] [place], [place] [address]GzNorma Emerson TSH+FREE T4on 03-27-2021 Free T4 [Mass/Vol] 1.2 ng/dL Normal 0.8-1.8 [facility] Comment on above: Performed By: #### 5 [id number] #### [facility] of [address], [address] [place] [address] Computer Assistant: Chalino Levy MD TSH Qn 2.23 m[IU]/L Normal 0.40-4.50 [facility] Comment on above: Performed By: #### 5 [id number] #### [facility] [address], [address] [place] [address] Computer Assistant: Chalino Levy MD Covid-19 PCR ([facility])on 02-20 SARS-CoV-2 (COVID-19) RNA RAAD+probe Ql (Unsp spec) Not detected Normal NOT DETECTED [facility] Comment on above: Result Comment: This test is not yet approved or cleared by the [place] FDA. When there are no FDA-approved or cleared tests available, and other criteria are met, FDA can make tests available under an emergency access mechanism called an Emergency Use Authorization (EUA). The EUA for this test is supported by the [employer] of Health and Human Service's (HHS's) declaration [...] #### C VDTBH, CVDAGS #### [facility] [address] [place] [address] Farida Yang SYMPTOMATIC COVID-19 ANTIGEN on 03-02-2021 EUA Statement SEE BELOW Normal The [facility] Comment on above: Result Comment: This [...] revoked sooner. Performed By: #### C AKIL, CVDAGS #### [facility] [address] [place] [address] Farida Celia SARS-CoV-2 (COVID-19) RNA RAAD+probe Ql (Unsp spec) Negative Normal NEGATIVE [facility] Comment on above: Result Comment: CONF IRMATION BY PCR PENDING PER CDC GUIDELINES/ SYMPTOMATIC PATIENT. Performed By: #### C VDTBH, CVDAGS #### [facility] [address] [place] [address] Farida Yang XR CHEST 1 Von 03-02-2021 [...] Date: 2021-03-02 13:11 Normal [facility] Basic Metabolic PanelOrdered By: Heena John on 11-22-2020 Anion gap [Moles/Vol] 9 mmol/L 9 - 17 mmol/L [employer] Phone: Calcium [Mass/Vol] 8.3 mg/dL Low 8.6 - 10. 4 mg/dL [employer] Phone: Chloride [Moles/Vol] 103 mmol/L 98 - 10 7 mmol/L [employer] Phone: CO2 [Moles/Vol] 29 mmol/L 20 - 31 mmol/L [employer] Phone: Creatinine [Mass/Vol] 0.77 mg/dL 0.50 - 0.90 mg/dL [employer] Phone: GFR >60 >60 mL/min Seen Phone: GFR Non- >60 >60 mL/min [employer] Phone: GFR/1.73 sq M.predicted MDRD (S/P/Bld) [Vol rate/Area] [employer] Phone: Comment on above: Average GFR for 60-6 9 years old: 85 mL/min/1.73sq m Chronic Kidney Disease: <60 mL/min/1.73sq m Kidney failure: <15 mL/min/1.73sq m eGFR calculated using average adult body mass. Additional eGFR calculator available at: http://www.Haiku Deck.Daylife/multiple_crcl_2012.htm GFR/1.73 sq M.predicted MDRD (S/P/Bld) [Vol rate/Area] NOT REPORTED [employer] Phone: Glucose [Mass/Vol] 131 mg/dL High 70 - 99 mg/dL [employer] Phone: Interpretation and review of laboratory results Abnormal [employer] Phone: Potassium [Moles/Vol] 4.5 mmol/L 3.7 - 5.3 mmol/L [employer] Phone: Sodium [Moles/Vol] 141 mmol/L 135 - 144 mmol/L [facility] [employer] Phone: Urea nitrogen (BldV) [Mass/Vol] 21 mg/dL 8 - 23 mg/dL [facility] [employer] Phone: Urea nitrogen/Creatinine (Bld) [Mass ratio] NOT REPORTED [facility] [employer] Phone: [facility] [employer] Phone: Basic Metabolic Profon 11-22 (cont.) Normal [facility] Comment on above: Result Comment: Aver age GFR for 60-69 years old: 85 mL/min/1.73sq m Chronic Kidney Disease: <60 mL/min/1.73sq m Kidney failure: <15 mL/min/1.73sq m eGFR calculated using average adult body mass. Additional eGFR calculator available at: http://www.FanGo/multiple_crcl_2011.htm Performed By: #### C DP, BMP #### [facility] [address] [place] [address] Veneer Puller: Justin Chambers DO Anion gap [Moles/Vol] 9 mmol/L Normal 9-17 [facility] Comment on above: Performed By: #### C DP, BMP #### [facility] [place] [address] Veneer Puller: Justin Chambers DO Calcium [Mass/Vol] 8.3 mg/dL Low 8.6-10.4 [facility] Comment on above: Performed By: #### C MARION, BMP #### [facility] [address] [place] [address] Veneer Puller: Justin Chambers DO Chloride [Moles/Vol] 103 mmol/L Normal 98-107 [facility] Comment on above: Performed By: #### C DP, BMP #### [facility] [place] [address] Veneer Puller: Justin Chambers DO CO2 [Moles/Vol] 29 mmol/L Normal 20-31 [facility] Comment on above: Performed By: #### C DP, BMP #### [facility] [address] [place] [address] Veneer Puller: Justin Chambers DO Creatinine [Mass/Vol] 0.77 mg/dL Normal 0.50-0.90 [facility] Comment on above: Performed By: #### C DP, BMP #### [facility] [address] [place] [address] Veneer Puller: Justin Chambers DO GFR, Amer >60 Normal >60 [facility] Comment on above: Performed By: #### C DP, BMP #### [facility] [place] [address] Veneer Puller: Justin Chambers DO GFR,non Amer >60 Normal >60 [facility] Comment on above: Performed By: #### C DP, BMP #### [facility] [facility] [place] [address] Veneer Puller: Justin Chambers DO Glucose [Mass/Vol] 131 mg/dL High 70-99 [facility] Comment on above: Performed By: #### C DP, BMP #### [facility] [address] [facility] [place] [address] Veneer Puller: Justin Chambers DO Potassium [Moles/Vol] 4.5 mmol/L Normal 3.7-5.3 [facility] Comment on above: Performed By: #### C DP, BMP #### [facility] [place] [address] Veneer Puller: Justin Chambers DO Sodium [Moles/Vol] 141 mmol/L Normal 135-144 [facility] Comment on above: Performed By: #### C DP, BMP #### [facility] [address] [facility] [place] [address] Veneer Puller: Justin Chambers DO Urea nitrogen [Mass/Vol] 21 mg/dL Normal 8-23 [facility] Comment on above: Performed By: #### C DP, BMP #### [facility] [address] [facility] [place] [address] Veneer Puller: Justin Chambers DO BUN/CRE Ratio NOT REPORTED Normal 9-20 [facility] Comment on above: Performed By: #### C DP, BMP #### [facility] [address] [place] [address] Veneer Puller: Justin Chambers DO Staging: NOT REPORTED Normal [facility] Comment on above: Performed By: #### C DP, BMP #### [facility] [address] [place] [address] Veneer Puller: Justin Chambers DO CBC Auto DifferentialOrdered By: Heena John on 11-22-2020 Absolute Eos # 0.40 [facility] Work Phone: Absolute Immature Granulocyte NOT REPORTED [facility] Work Phone: Absolute Lymph # 1.80 [facility] Work Phone: Absolute Costilla # 0.50 [facility] Work Phone: Basophils (Bld) [#/Vol] 0.10 10*3/uL [employer] [facility] Work Phone: Basophils/100 WBC (Bld) 1 % 0 - 2 % [employer] [facility] Work Phone: Differential Type NOT REPORTED [facility] Work Phone: Eosinophils/100 WBC (Bld) 4 % 0 - 4 % [facility] Work Phone: Hematocrit (Bld) [Volume fraction] 42.5 % 36 - 46 % [employer] Phone: Hemoglobin.gastrointes tinal spec 1 Ql (Stl) 13.8 g/dL 12.0 - 16.0 g/dL [employer] Phone: Immature Granulocytes NOT REPORTED 0 % M [employer] Work Phone: Interpretation and review of laboratory results Abnormal [facility] Phone: Lymphocytes/100 WBC (Bld) 19 % Low 24 - 44 % [employer] Phone: MCH (RBC) [Entitic mass] 29.5 pg 26 - 34 pg [employer] Phone: MCHC (RBC) [Mass/Vol] 32.5 g/dL 31 - 3 7 g/dL [employer] Phone: MCV (RBC) [Entitic vol] 90.8 fL 80 - 100 fL [employer] Phone: Monocytes/100 WBC (Bld) 6 % 1 - 7 % [employer] Phone: NRBC Automated NOT REPORTED per 100 WBC [employer] [facility] Work Phone: Platelet distribution width (Bld) [Ratio] 13.3 % 11.5 - 14.9 % [employer] Phone: Platelet Estimate NOT REPORTED [facility] Phone: Platelet mean volume (Bld) [Entitic vol] 7.2 fL 6.0 - 12.0 fL [employer] Phone: Platelets (Bld) [#/Vol] 388 10*3/uL [employer] Phone: RBC (Bld) [#/Vol] 4.68 10*6/uL 4.0 - 5.2 m/uL [employer] Phone: RBC (Bld) [#/Vol] NOT REPORTED [employer] Work Phone: Segmented neutrophils/100 WBC (Bld) 70 % High 36 - 66 % [employer] Work Phone: Segs Absolute 6.70 [facility] Work Phone: WBC (Bld) [#/Vol] 9.4 10*3/uL [employer] Work Phone: WBC (Bld) [#/Vol] NOT REPORTED [employer] Work Phone: [employer] Work Phone: CBC with Diffon 11-22-2020 Abs. Basophil 0.10 k/uL Normal 0.0-0.2 [facility] Comment on above: Performed By: #### C DP, BMP #### [facility] [address] [place] [address] Veneer Puller: Justin Chambers DO Abs.Neutrophil (Seg) 6.70 k/uL Normal 1.3-9.1 [facility] Comment on above: Performed By: #### C DP, BMP #### [facility] [address] [place] [address] Veneer Puller: Justin Chambers DO Basophils/100 WBC (Bld) 1 % Normal 0-2 [facility] Comment on above: Performed By: #### C DP, BMP #### [facility] [address] [place] [address] Veneer Puller: Justin Chambers DO Eosinophils (Bld) [#/Vol] 0.40 10*3/uL Normal 0.0-0.4 [facility] Comment on above: Performed By: #### C DP, BMP #### [facility] [address] [place] [address] Veneer Puller: Justin Chambers DO Eosinophils/100 WBC (Bld) 4 % Normal 0-4 [facility] Comment on above: Performed By: #### C DP, BMP #### [facility] [place] [address] Veneer Puller: Justin Chambers DO Erythrocyte distribution width (RBC) [Ratio] 13.3 % Normal 11.5-14.9 [facility] Comment on above: Performed By: #### C DP, BMP #### [facility] [address] [place] [address] Veneer Puller: Justin Chambers DO Hematocrit (Bld) [Volume fraction] 42.5 % Normal 36-46 [facility] Comment on above: Performed By: #### C DP, BMP #### [facility] [address] [place] [address] Veneer Puller: Jusitn Chambers DO Hemoglobin (Bld) [Mass/Vol] 13.8 g/dL Normal 12.0-16.0 [facility] Comment on above: Performed By: #### C MARION, BMP #### [facility] [address] [place] [address] Veneer Puller: Justin Chambers DO Lymphocytes (Bld) [#/Vol] 1.80 10*3/uL Normal 1.0-4.8 [facility] Comment on above: Performed By: #### C DP, BMP #### [facility] [address] [place] [address] Veneer Puller: Justin Chambers DO Lymphocytes/100 WBC (Bld) 19 % Low 24-44 [facility] Comment on above: Performed By: #### C DP, BMP #### [facility] [address] [place] [address] Veneer Puller: Justin Chambers DO MCH (RBC) [Entitic mass] 29.5 pg Normal 26-34 [facility] Comment on above: Performed By: #### C DP, BMP #### [facility] [place] [address] Veneer Puller: Justin Chambers DO MCHC (RBC) [Mass/Vol] 32.5 g/dL Normal 31-37 [facility] Comment on above: Performed By: #### C DP, BMP #### [facility] [address] [place] [address] Veneer Puller: Justin Chambers DO MCV (RBC) [Entitic vol] 90.8 fL Normal 80-100 [facility] Comment on above: Performed By: #### C DP, BMP #### [facility] [address] [place] [address] Veneer Puller: Justin Chambers DO Monocytes (Bld) [#/Vol] 0.50 10*3/uL Normal 0.1-1.3 [facility] Comment on above: Performed By: #### C MARION, BMP #### [facility] [address] [place] [address] Veneer Puller: Justin Chambers DO Monocytes/100 WBC (Bld) 6 % Normal 1-7 [facility] Comment on above: Performed By: #### C DP, BMP #### [facility] [address] [place] [address] Veneer Puller: Justin Chambers DO Neutrophil (Seg) 70 % High 36-66 [facility] Comment on above: Performed By: #### C DP, BMP #### [facility] [address] [place] [address] Veneer Puller: Justin Chambers DO Platelet mean volume (Bld) [Entitic vol] 7.2 fL Normal 6.0-12.0 [facility] Comment on above: Performed By: #### C DP, BMP #### [facility] [place] [address] Veneer Puller: Justin Chambers DO Platelets (Bld) [#/Vol] 388 10*3/uL Normal 150-450 [facility] Comment on above: Performed By: #### C DP, BMP #### [facility] [address] [place] [address] Veneer Puller: Justin Chambers DO RBC (Bld) [#/Vol] 4.68 10*6/uL Normal 4.0-5.2 [facility] Comment on above: Performed By: #### C DP, BMP #### [facility] [address] [place] [address] Veneer Puller: Justin Chambers DO WBC (Bld) [#/Vol] 9.4 10*3/uL Normal 3.5-11.0 [facility] Comment on above: Performed By: #### C MARION, BMP #### [facility] [address] [place] [address] Veneer Puller: Justin Chambers DO Abs.Imm.Granulocyte NOT REPORTED Normal 0.00-0.30 [facility] Comment on above: Performed By: #### C DP, BMP #### [facility] [address] [place] [address] Veneer Puller: Justin Chambers DO Auto Diff Performed NOT REPORTED Normal [facility] Comment on above: Performed By: #### C DP, BMP #### [facility] [address] [place] [address] Veneer Puller: Justin Chambers DO Immature Granulocyte NOT REPORTED Normal 0 [facility] Comment on above: Performed By: #### C DP, BMP #### [facility] [address] [facility] [place] [address] Veneer Puller: Justin Chambers DO NRBC Automated NOT REPORTED Normal [facility] Comment on above: Performed By: #### C DP, BMP #### [facility] [address] [facility] [place] [address] Veneer Puller: Justin Chambers DO Platelet Estimate NOT REPORTED Normal [facility] Comment on above: Performed By: #### C DP, BMP #### [facility] [address] [place] [address]. [place] [address] Veneer Puller: Justin Chambers DO RBC morphology finding Nom (Bld) NOT REPORTED Normal [facility] Comment on above: Performed By: #### C DP, BMP #### [facility] [address] [place] [address]. [place] [address] Veneer Puller: Justin Chambers DO WBC Morphology NOT REPORTED Normal [facility] Comment on above: Performed By: #### C DP, BMP #### [facility] [place] [address] Veneer Puller: Justin Chambers DO COVID-19, RapidOrdered By: Ifeoma John on 11-22-2020 SARS-CoV-2 (COVID-19) RNA RAAD+probe Ql (Unsp spec) Not detected Not Detected [facility] Work Phone: Comment on above: Rapid [...] management decisions. Fact sheet for Healthcare Providers: https://www.fda.gov/media/398430/download Fact sheet for Patients: https://www.fda.gov/media/915450/download Methodology: Isothermal Nucleic Acid Amplification Specimen Description .NASOPHARYNGEAL SWAB [facility] [employer] Phone: [facility] [employer] Phone: [id number] 11-22-2020 SARS-CoV-2 (COVID-19) RNA RAAD+probe Ql (Unsp spec) Not detected Normal [facility] Comment on above: Result Comment: Rapid [...] management decisions. Fact sheet for Healthcare Providers: https://www.fda.gov/media/795448/download Fact sheet for Patients: https://www.fda.gov/media/236832/download Methodology: Isothermal Nucleic Acid Amplification Performed By: #### C OVRB #### [facility] [address] [place] [address] Veneer Puller: Justin Chambers DO XR CHEST PORTABLEon 11-23-19 [...] Ryanne Cantrell MD 11/22/20 Final result Normal [facility] XR CHEST PORTABLEOrdered By: Heena John on 11-22-2020 No acute cardiopulmonary process. Stable cardiomegaly and chronic basilar changes. [employer] Phone: EXAMINATION: ONE XRA Y VIEW OF [...] are age-appropriate. Chronic basilar changes are noted. [employer] Phone: Jose Antonio, pn Incoming Radiant Results From [employer] - 11/22/2020 1:15 PM EDT EXAMINATION: ONE [...] process. Stable cardiomegaly and chronic basilar changes. [employer] Phone: [facility] [employer] Work Phone: CT HEAD WO CONTRASTon 2019 CT [...] Huma Contreras MD 04/18/20 Final result Normal [facility] CBCon 04-16-2020 Erythrocyte distribution width (RBC) [Ratio] 13.0 % Normal 11.8-14.4 [facility] Comment on above: Performed By: #### C MEERA HARRIS, TSH #### [employer] [facility] [place] [address] Veneer Puller: Beau Troncoso MD Hematocrit (Bld) [Volume fraction] 45.8 % Normal 36.3-47.1 [facility] Comment on above: Performed By: #### C MEERA HARRIS, TSH #### [employer] [address] [place] [address] Veneer Puller: Beau Troncoso MD Hemoglobin (Bld) [Mass/Vol] 14.3 g/dL Normal 11.9-15.1 [facility] Comment on above: Performed By: #### C MEERA HARRIS, TSH #### [address] [address] Veneer Puller: Beau Troncoso MD MCH (RBC) [Entitic mass] 29.5 pg Normal 25.2-33.5 [facility] Comment on above: Performed By: #### C BC, CP, TSH #### [address] [address] Veneer Puller: Beau Troncoso MD MCHC (RBC) [Mass/Vol] 31.2 g/dL Normal 28.4-34.8 [facility] Comment on above: Performed By: #### C BC, CP, TSH #### [address] [address] Veneer Puller: Beau Troncoso MD MCV (RBC) [Entitic vol] 94.6 fL Normal 82.6-102.9 [facility] Comment on above: Performed By: #### C BC, CP, TSH #### [address] [address] Veneer Puller: Beau Troncoso MD NRBC Automated 0.0 per 100 WBC Normal 0.0 [facility] Comment on above: Performed By: #### C BC, CP, TSH #### [address] [address] Veneer Puller: Beau Troncoso MD Platelet mean volume (Bld) [Entitic vol] 9.6 fL Normal 8.1-13.5 [facility] Comment on above: Performed By: #### C BC, CP, TSH #### [address] [address] Veneer Puller: Beau Troncoso MD Platelets (Bld) [#/Vol] 419 10*3/uL Normal 138-453 [facility] Comment on above: Performed By: #### C BC, CP, TSH #### [address] [id number] Veneer Puller: Beau Troncoso MD RBC (Bld) [#/Vol] 4.84 10*6/uL Normal 3.95-5.11 [facility] Comment on above: Performed By: #### C KIMBERLY, CP, TSH #### [facility] [address] [place], [place] [phone] Veneer Puller: Beau Troncoso MD WBC (Bld) [#/Vol] 7.6 10*3/uL Normal 3.5-11.3 [facility] Comment on above: Performed By: #### C KIMBERLY, MEERA, TSH #### [facility] [address] [place], [place] [id number] Veneer Puller: Beau Troncoso MD Erythrocyte distribution width (RBC) [Ratio] 13.0 % 11.8 - 14.4 % [place] Hematocrit (Bld) [Volume fraction] 45.8 % 36.3 - 47.1 % [place] Hemoglobin (Bld) [Mass/Vol] 14.3 g/dL 11.9 - 15.1 g/dL [place] MCH (RBC) [Entitic mass] 29.5 pg 25.2 - 33.5 pg [place] MCHC (RBC) [Mass/Vol] 31.2 g/dL 28.4 - 34.8 g/dL [place] MCV (RBC) [Entitic vol] 94.6 fL 82.6 - 102.9 fL [place] Platelet mean volume (Bld) [Entitic vol] 9.6 fL 8.1 - 13.5 fL [place] Platelets (Bld) [#/Vol] 419 10*3/uL [place] RBC (Bld) [#/Vol] 4.84 10*6/uL 3.95 - 5.1 1 m/uL [place] WBC (Bld) [#/Vol] 0.0 10*3/uL 0.0 per 10 0 WBC [place] WBC (Bld) [#/Vol] 7.6 10*3/uL [facility] [place] [place] Comp Metabolic Profon 2019 (cont.) Normal [facility] Comment on above: Result Comment: Aver age GFR for 60-69 years old: 85 mL/min/1.73sq m Chronic Kidney Disease: <60 mL/min/1.73sq m Kidney failure: <15 mL/min/1.73sq m eGFR calculated using average adult body mass. Additional eGFR calculator available at: http://www.FanGo/multiple_crcl_2011.htm Performed By: #### C KIMBERLY CP, TSH #### [facility] [employer] [address] [place] [address] Veneer Puller: Beau Troncoso MD Albumin [Mass/Vol] 4.0 g/dL Normal 3.5-5.2 [facility] Comment on above: Performed By: #### C KIMBERLY CP, TSH #### [facility] [employer] [address] [place] [address] Veneer Puller: Beau Troncoso MD Albumin/Globulin [Mass ratio] 1.4 {ratio} Normal 1.0-2.5 [facility] Comment on above: Performed By: #### C KIMBERLY CP, TSH #### [facility] [employer] [address] [place] [address] Veneer Puller: Beau Troncoso MD Alkaline Phos 67 U/L Normal 35-104 [facility] Comment on above: Performed By: #### C BC CP, TSH #### [employer] [facility] [place] [address] Veneer Puller: Beau Troncoso MD ALT [Catalytic activity/Vol] 13 U/L Normal 5-33 [facility] Comment on above: Performed By: #### C KIMBERLY CP, TSH #### [facility] [address] [place] [address] Veneer Puller: Beau Troncoso MD Anion gap [Moles/Vol] 8 mmol/L Low 9-17 [facility] Comment on above: Performed By: #### C BC CP, TSH #### [facility] [employer] [address] [place] [address] Veneer Puller: Beau Troncoso MD AST [Catalytic activity/Vol] 12 U/L Normal <32 [facility] Comment on above: Performed By: #### C BC, CP, TSH #### [facility] [employer] [address] [place] [address] Veneer Puller: Beau Troncoso MD Bilirubin Ql (U) 0.30 mg/dL Normal 0.3-1.2 [facility] Comment on above: Performed By: #### C KIMBERLY CP, TSH #### [facility] [employer] [address] [place] [address] Veneer Puller: Beau Troncoso MD Calcium [Mass/Vol] 8.7 mg/dL Normal 8.6-10.4 [facility] Comment on above: Performed By: #### C KIMBERLY CP, TSH #### [facility] [facility] [employer] [address] [place] [address] [id number] Veneer Puller: Beau Troncoso MD Chloride [Moles/Vol] 102 mmol/L Normal 98-107 [facility] Comment on above: Performed By: #### C KIMBERLY CP, TSH #### [facility] [employer] [address] [place] [address] [phone] Veneer Puller: Beau Troncoso MD CO2 [Moles/Vol] 32 mmol/L High 20-31 [facility] Comment on above: Performed By: #### C BC, CP, TSH #### [facility] [employer] [address] [place] [address] [phone] Veneer Puller: Beau Troncoso MD Creatinine [Mass/Vol] 0.78 mg/dL Normal 0.50-0.90 [facility] Comment on above: Performed By: #### C BC, CP, TSH #### [facility] [address] [place] [address] Veneer Puller: Beau Troncoso MD GFR, Amer >60 Normal >60 [facility] Comment on above: Performed By: #### C BC, CP, TSH #### [facility] [address] [place] [phone] Veneer Puller: Beau Troncoso MD GFR,non Amer >60 Normal >60 [facility] Comment on above: Performed By: #### C BC, CP, TSH #### [facility] [address] [place] [phone] Veneer Puller: Beau Troncoso MD Glucose [Mass/Vol] 86 mg/dL Normal 70-99 [facility] Comment on above: Performed By: #### C BC, CP, TSH #### [facility] [address] [place] [address] [phone] Veneer Puller: Beau Troncoso MD Potassium [Moles/Vol] 4.7 mmol/L Normal 3.7-5.3 [facility] Comment on above: Performed By: #### C BC, CP, TSH #### [facility] [address] [place] [phone] Veneer Puller: Beau Troncoso MD Protein [Mass/Vol] 6.8 g/dL Normal 6.4-8.3 [facility] Comment on above: Performed By: #### C BC, CP, TSH #### [facility] [address] [place] [address] [phone] Veneer Puller: Beau Troncoso MD Sodium [Moles/Vol] 142 mmol/L Normal 135-144 [facility] Comment on above: Performed By: #### C BC, CP, TSH #### [facility] [address] [place] [phone] Veneer Puller: Beau Troncoso MD Urea nitrogen [Mass/Vol] 22 mg/dL Normal 8-23 [facility] Comment on above: Performed By: #### C MEERA HARRIS, TSH #### [facility] [address], [place] [phone] Veneer Puller: Beau Troncoso MD BUN/CRE Ratio NOT REPORTED Normal 9-20 [facility] Comment on above: Performed By: #### C KIMBERLY, MEERA, TSH #### [facility] [address], [place] [phone] Veneer Puller: Beau Troncoso MD Staging: NOT REPORTED Normal [facility] Comment on above: Performed By: #### C MEERA HARRIS, TSH #### [facility] [address], [place] [phone] Veneer Puller: Beau Troncoso MD [facility] Metabolic [facility] 04-16-2020 Albumin [Mass/Vol] 4 g/dL 3.5 - 5.2 g/dL [place] Albumin/Globulin [Mass ratio] 1.4 {ratio} [place] ALP [Catalytic activity/Vol] 67 U/L 35 - 104 U/L [place] ALT [Catalytic activity/Vol] 13 U/L 5 - 33 U/L [place] Anion gap [Moles/Vol] 8 mmol/L Low 9 - 17 mmol/L [place] AST [Catalytic activity/Vol] 12 U/L <32 [place] Bilirubin Ql (U) 0.30 mg/dL 0.3 - 1.2 mg/dL [place] Bun/Cre Ratio NOT REPORTED [place] Calcium [Mass/Vol] 8.7 mg/dL 8.6 - 10. 4 mg/dL [place] Chloride [Moles/Vol] 102 mmol/L 98 - 10 7 mmol/L [place] CO2 [Moles/Vol] 32 mmol/L High 20 - 31 mmol/L [place] Creatinine [Mass/Vol] 0.78 mg/dL 0.5 - 0.9 mg/dL [place] GFR >60 >60 mL/min [place] GFR Non- >60 >60 mL/min [place] GFR/1.73 sq M predicted among non-blacks MDRD (S/P/Bld) [Vol rate/Area] [place] Comment on above: Average GFR for 60-6 9 years old: 85 mL/min/1.73sq m Chronic Kidney Disease: <60 mL/min/1.73sq m Kidney failure: <15 mL/min/1.73sq m eGFR calculated using average adult body mass. Additional eGFR calculator available at: http://www.FanGo/Tiipz.com_crcl_2012.htm GFR/1.73 sq M predicted among non-blacks MDRD (S/P/Bld) [Vol rate/Area] NOT REPORTED [place] Glucose [Mass/Vol] 86 mg/dL 70 - 99 mg/dL [place] Interpretation and review of laboratory results Abnormal [place] Potassium [Moles/Vol] 4.7 mmol/L 3.7 - 5.3 mmol/L [place] Protein [Mass/Vol] 6.8 g/dL 6.4 - 8.3 g/dL [place] Sodium [Moles/Vol] 142 mmol/L 135 - 144 mmol/L [place] Urea nitrogen [Mass/Vol] 22 mg/dL 8 - 23 mg/dL [place] Hemoglobin A1Con 04-16-2020 Glucose [Mass/Vol] 126 mg/dL [place] Comment on above: The ADA and AACC rec ommend providing the estimated average glucose result to permit better patient understanding of their HBA1c result. HbA1c (Bld) [Mass fraction] 6.0 % 4 - 6 % [place] TSH without Reflexon 020 TSH Qn 0.89 m[IU]/L [place] Thyroid Stim. Horm.on 2019 TSH Qn 0.89 m[IU]/L Normal 0.30-5.00 [facility] Comment on above: Performed By: #### C BC, CP, TSH #### [facility] [address] [place] [phone] Veneer Puller: Beau Troncoso MD MRI SHOULDER RIGHT WO [...] Blas Godwin MD 03/25/20 Final result Normal [facility] 1. Moderate acromioclavicular osteoarthritis with reactive edema in the distal clavicle and acromion. 2. Minimal 2 mm interstitial tear of the infraspinatus tendon. Mild bursal surface fraying of the supraspinatus and infraspinatus tendons. No additional rotator cuff tear. 3. No biceps tear. [facility], [place] EXAMINATION: MRI OF THE RIGHT [...] are without obstructing or space occupying lesions. [facility] [place], [place] Jose Antonio, Mhpn Incoming Radiant Results From [employer] - 03/25/2020 4:57 PM EDT EXAMINATION: MRI [...] rotator cuff tear. 3. No biceps tear. [place] C-Reactive Proteinon 11-01-2 020 CRP [Mass/Vol] 13 mg/L High 0 - 5 mg/L [place], [place] CBC Auto Differentialon 10-20 Basophils (Bld) [#/Vol] 0.10 10*3/uL [place] Basophils/100 WBC (Bld) 1 % 0 - 2 % [place] Differential Type NOT REPORTED [place] Eosinophils (Bld) [#/Vol] 0.20 10*3/uL [place] Eosinophils/100 WBC (Bld) 3 % 0 - 4 % [place] Erythrocyte distribution width (RBC) [Ratio] 13.0 % 11.5 - 14.9 % [place] Hematocrit (Bld) [Volume fraction] 42.0 % 36 - 46 % [place] Hemoglobin (Bld) [Mass/Vol] 13.8 g/dL 12 - 16 g/dL [place] Interpretation and review of laboratory results Abnormal [place] Lymphocytes (Bld) [#/Vol] 1.10 10*3/uL [place] Lymphocytes/100 WBC (Bld) 13 % Low 24 - 44 % [place] MCH (RBC) [Entitic mass] 30.5 pg 26 - 34 pg [place] MCHC (RBC) [Mass/Vol] 32.7 g/dL 31 - 3 7 g/dL [place] MCV (RBC) [Entitic vol] 93.1 fL 80 - 100 fL [place] Monocytes (Bld) [#/Vol] 0.50 10*3/uL [place] Monocytes/100 WBC (Bld) 5 % 1 - 7 % [place] Platelet mean volume (Bld) [Entitic vol] 6.9 fL 6 - 12 fL [place] Platelets (Bld) [#/Vol] 382 10*3/uL [place] Platelets (Bld) [#/Vol] NOT REPORTED [place] RBC (Bld) [#/Vol] 4.51 10*6/uL 4 - 5.2 m/uL [place] RBC morphology finding Nom (Bld) NOT REPORTED [place] Segmented neutrophils/100 WBC (Bld) 78 % High 36 - 66 % [place] Segs Absolute 6.90 [place] WBC (Bld) [#/Vol] 8.8 10*3/uL [place] WBC (Bld) [#/Vol] NOT REPORTED per 100 WBC [place] WBC Morphology NOT REPORTED [place] Comprehensive Metabolic Pane deven 11-02-2019 Albumin [Mass/Vol] 4.1 g/dL 3.5 - 5.2 g/dL [place] Albumin/Globulin [Mass ratio] NOT REPORTED [place] ALP [Catalytic activity/Vol] 61 U/L 35 - 104 U/L [place] ALT [Catalytic activity/Vol] 13 U/L 5 - 33 U/L [place] Anion gap [Moles/Vol] 7 mmol/L Low 9 - 17 mmol/L [place] AST [Catalytic activity/Vol] 12 U/L <32 [place] Bilirubin Ql (U) 0.29 mg/dL Low 0.3 - 1.2 mg/dL [place] Bun/Cre Ratio NOT REPORTED [place] Calcium [Mass/Vol] 8.7 mg/dL 8.6 - 10. 4 mg/dL [place] Chloride [Moles/Vol] 101 mmol/L 98 - 10 7 mmol/L [place] CO2 [Moles/Vol] 31 mmol/L 20 - 31 mmol/L [place] Creatinine [Mass/Vol] 0.72 mg/dL 0.5 - 0.9 mg/dL [place] GFR >60 >60 mL/min [place] GFR Non- >60 >60 mL/min [place] GFR/1.73 sq M predicted among non-blacks MDRD (S/P/Bld) [Vol rate/Area] NOT REPORTED [place] GFR/1.73 sq M predicted among non-blacks MDRD (S/P/Bld) [Vol rate/Area] [place] Comment on above: Average GFR for 60-6 9 years old: 85 mL/min/1.73sq m Chronic Kidney Disease: <60 mL/min/1.73sq m Kidney failure: <15 mL/min/1.73sq m eGFR calculated using average adult body mass. Additional eGFR calculator available at: http://www.FanGo/Tiipz.com_crcl_2011.htm Glucose [Mass/Vol] 118 mg/dL High 70 - 99 mg/dL [place] Potassium [Moles/Vol] 4.8 mmol/L 3.7 - 5.3 mmol/L [place] Protein [Mass/Vol] 7.5 g/dL 6.4 - 8.3 g/dL [place] Sodium [Moles/Vol] 139 mmol/L 135 - 144 mmol/L [place] Urea nitrogen [Mass/Vol] 21 mg/dL 8 - 23 mg/dL [place] D-Dimer, Quantitativeon 10-20 D-Dimer, Quant <0.27 [place] Comment on above: When combined with [...] LD 173 U/L 135 - 214 U/L [place] Lactic Acid, Plasmaon 2019 Lactate [Moles/Vol] 0.5 mmol/L 0.5 - 2. 2 mmol/L [place] Lactic Acid, Whole Blood NOT REPORTED 0.7 - 2.1 mmol/L [place] Otheron 11-02-2019 Interpretation and review of laboratory results Abnormal [place] Immature granulocytes (Bld) [#/Vol] NOT REPORTED [place] Troponinon 11-02-2019 Troponin I.cardiac [Mass/Vol] NOT REPORTED [place] Troponin T.cardiac [Mass/Vol] NOT REPORTED <0.03 ng/mL [place] Troponin, High Sensitivity <6 0 - 14 ng/L [place] Comment on above: High Sensitivity Troponin values cannot be compared with other Troponin methodologies. Patients with high levels of Biotin oral intake (i.e >5mg/day) may have falsely decreased Troponin levels. Samples collected within 8 hours of biotin intake may require additional information for diagnosis. Troponin I.cardiac [Mass/Vol] NOT REPORTED [place] Troponin T.cardiac [Mass/Vol] NOT REPORTED <0.03 ng/mL [place] Troponin, High Sensitivity <6 0 - 14 ng/L [place] Comment on above: High Sensitivity Troponin [...] unremarkable. The extrathoracic soft tissues are unremarkable. [place] Cardiomegaly and chronic pulmonary change without acute pulmonary process. [place], [place] Jose Antonio, Mhpn Incoming Radiant Results From [id number] - 11/02/2019 10:59 AM EDT EXAMINATION: ONE [...] chronic pulmonary change without acute pulmonary process. [place] B.A.L. CELL COUNTon 10-07-19 20 Fluid Diff Comment Reviewed by pathologist: Justin Chambers D.O. [place] Comment on above: SLIDE REVIEWED. MACR OPHAGES AND MIXED INFLAMMATORY CELLS NOTED. CORRECTED ON 10/06 AT 1306: PREVIOUSLY REPORTED TO BE REVIEWED BY PATHOLOGIST RBC (Bld) [#/Vol] 913 /mm3 [place] Specimen type Nom (Spec) .BRONCHIAL WASHINGS [place] WBC (Bld) [#/Vol] 38 /mm3 [place] Culture, Respiratoryon 10-06 Culture NORMAL RESPIRATORY CHERYL MODERATE GROWTH [place] Direct Exam FEW NEUTROPHILS Abnormal [place] Interpretation and review of laboratory results Abnormal [place] Special Requests NOT REPORTED [place] Specimen Description .BRONCHIAL WASHINGS [place] Fungal stainon 10-07-2019 Direct Exam NO FUNGAL ELEMENTS SEEN [place] Special Requests NOT REPORTED [place] Specimen Description .BRONCHIAL WASHINGS [place] Otheron 10-07-2019 Direct Exam Positive Abnormal [place] CBC with DIFFon 10-06-2019 Basophils (Bld) [#/Vol] 0.14 10*3/uL [place] Basophils/100 WBC (Bld) 1 % 0 - 2 % [place] Differential Type NOT REPORTED [place] Eosinophils (Bld) [#/Vol] 0.00 10*3/uL [place] Eosinophils/100 WBC (Bld) 0 % 0 - 4 % [place] Erythrocyte distribution width (RBC) [Ratio] 13.4 % 11.5 - 14.9 % [place] Hematocrit (Bld) [Volume fraction] 40.9 % 36 - 46 % [place] Hemoglobin (Bld) [Mass/Vol] 13.5 g/dL 12 - 16 g/dL [place] Interpretation and review of laboratory results Abnormal [place] Lymphocytes (Bld) [#/Vol] 1.15 10*3/uL [place] Lymphocytes/100 WBC (Bld) 8 % Low 24 - 44 % [place] MCH (RBC) [Entitic mass] 30.6 pg 26 - 34 pg [place] MCHC (RBC) [Mass/Vol] 33.0 g/dL 31 - 3 7 g/dL [place] MCV (RBC) [Entitic vol] 92.7 fL 80 - 100 fL [place] Monocytes (Bld) [#/Vol] 0.29 10*3/uL [place] Monocytes/100 WBC (Bld) 2 % 1 - 7 % [place] Morphology Den (Bld) [Interp] Normal [place] Platelet mean volume (Bld) [Entitic vol] 7.3 fL 6 - 12 fL [place] Platelets (Bld) [#/Vol] NOT REPORTED [place] Platelets (Bld) [#/Vol] 419 10*3/uL [place] RBC (Bld) [#/Vol] 4.41 10*6/uL 4 - 5.2 m/uL [place] RBC morphology finding Nom (Bld) NOT REPORTED [place] Segmented neutrophils/100 WBC (Bld) 89 % High 36 - 66 % [place] Segs Absolute 12.82 [place] WBC (Bld) [#/Vol] NOT REPORTED per 100 WBC [place] WBC (Bld) [#/Vol] 14.4 10*3/uL [place], [place] WBC Morphology NOT REPORTED [place] Cell Count with Diff, BALon 10-06-2019 BAL Diff Comment TO BE REVIEWED BY PATHOLOGIST [place] Columnar Epis BAL PRESENT [place] Eosinophils/100 WBC (Bld) 4 % High 0 - 1 % [place] Interpretation and review of laboratory results Abnormal [place] Lymphocytes/100 WBC (Bld) 13 % High 8 - 12 % [place] Macrophages, BAL 61 % Low 85 - 95 % [place] Segmented neutrophils/100 WBC (Bld) 22 % High 0 - 10 % [place] Comp Metabolic Profon 2019 Albumin [Mass/Vol] 3.5 g/dL 3.5 - 5.2 g/dL [place] Albumin/Globulin [Mass ratio] NOT REPORTED [place] ALP [Catalytic activity/Vol] 49 U/L 35 - 104 U/L [place] ALT [Catalytic activity/Vol] 10 U/L 5 - 33 U/L [place] Anion gap [Moles/Vol] 12 mmol/L 9 - 17 mmol/L [place] AST [Catalytic activity/Vol] 12 U/L <32 [place] Bilirubin Ql (U) 0.30 mg/dL 0.3 - 1.2 mg/dL [place] Bun/Cre Ratio NOT REPORTED [place] Calcium [Mass/Vol] 9.0 mg/dL 8.6 - 10. 4 mg/dL [place] Chloride [Moles/Vol] 100 mmol/L 98 - 10 7 mmol/L [place] CO2 [Moles/Vol] 26 mmol/L 20 - 31 mmol/L [place] Creatinine [Mass/Vol] 0.72 mg/dL 0.5 - 0.9 mg/dL [place] GFR >60 >60 mL/min [place] GFR Non- >60 >60 mL/min [place] GFR/1.73 sq M predicted among non-blacks MDRD (S/P/Bld) [Vol rate/Area] [place] Comment on above: Average GFR for 60-6 9 years old: 85 mL/min/1.73sq m Chronic Kidney Disease: <60 mL/min/1.73sq m Kidney failure: <15 mL/min/1.73sq m eGFR calculated using average adult body mass. Additional eGFR calculator available at: http://www.FanGo/multiple_crcl_2012.htm GFR/1.73 sq M predicted among non-blacks MDRD (S/P/Bld) [Vol rate/Area] NOT REPORTED [place] Glucose [Mass/Vol] 145 mg/dL High 70 - 99 mg/dL [place] Potassium [Moles/Vol] 4.1 mmol/L 3.7 - 5.3 mmol/L [place] Protein [Mass/Vol] 6.7 g/dL 6.4 - 8.3 g/dL [place] Sodium [Moles/Vol] 138 mmol/L 135 - 144 mmol/L [place] Urea nitrogen [Mass/Vol] 23 mg/dL 8 - 23 mg/dL [place] Culture, Virus, Respiratoryo n 10-06-2019 Culture VIRAL RESPIRATORY CULTURES ARE NOT LONGER PERFORMED [place] Special Requests NOT REPORTED [place] Specimen Description .BRONCHIAL WASHINGS [place] Otheron 10-06-2019 Interpretation and review of laboratory results Abnormal [place] Immature granulocytes (Bld) [#/Vol] NOT REPORTED [place] T4, Freeon 10-06-2019 Interpretation and review of laboratory results Abnormal [place] Thyroxine, Free 2.03 ng/dL High 0.93 - 1.7 ng/dL [place] TSH with Reflexon 10-06-2019 TSH Qn 0.10 m[IU]/L [place] Basic Metabolic Panel w/ Ref alvin to MGon 10-05-2019 Anion gap [Moles/Vol] 9 mmol/L 9 - 17 mmol/L [place] Bun/Cre Ratio NOT REPORTED [place] Calcium [Mass/Vol] 8.8 mg/dL 8.6 - 10. 4 mg/dL [place] Chloride [Moles/Vol] 102 mmol/L 98 - 10 7 mmol/L [place] CO2 [Moles/Vol] 29 mmol/L 20 - 31 mmol/L [place] Creatinine [Mass/Vol] 0.72 mg/dL 0.5 - 0.9 mg/dL [place] GFR >60 >60 mL/min [place] GFR Non- >60 >60 mL/min [place] GFR/1.73 sq M predicted among non-blacks MDRD (S/P/Bld) [Vol rate/Area] NOT REPORTED [place] GFR/1.73 sq M predicted among non-blacks MDRD (S/P/Bld) [Vol rate/Area] [place] Comment on above: Average GFR for 60-6 9 years old: 85 mL/min/1.73sq m Chronic Kidney Disease: <60 mL/min/1.73sq m Kidney failure: <15 mL/min/1.73sq m eGFR calculated using average adult body mass. Additional eGFR calculator available at: http://www.FanGo/multiple_crcl_2012.htm Glucose [Mass/Vol] 97 mg/dL 70 - 99 mg/dL [place] Potassium [Moles/Vol] 4.3 mmol/L 3.7 - 5.3 mmol/L [place] Sodium [Moles/Vol] 140 mmol/L 135 - 144 mmol/L [place], [place] Urea nitrogen [Mass/Vol] 18 mg/dL 8 - 23 mg/dL [place] CBC with DIFFon 10-05-2019 Basophils (Bld) [#/Vol] 0.10 10*3/uL [place] Basophils/100 WBC (Bld) 1 % 0 - 2 % [place] Differential Type NOT REPORTED [place] Eosinophils (Bld) [#/Vol] 0.50 10*3/uL [place] Eosinophils/100 WBC (Bld) 6 % High 0 - 4 % [place] Erythrocyte distribution width (RBC) [Ratio] 13.4 % 11.5 - 14.9 % [place] Hematocrit (Bld) [Volume fraction] 40.2 % 36 - 46 % [place] Hemoglobin (Bld) [Mass/Vol] 13.4 g/dL 12 - 16 g/dL [place] Interpretation and review of laboratory results Abnormal [place] Lymphocytes (Bld) [#/Vol] 2.50 10*3/uL [place] Lymphocytes/100 WBC (Bld) 30 % 24 - 44 % [place] MCH (RBC) [Entitic mass] 30.5 pg 26 - 34 pg [place] MCHC (RBC) [Mass/Vol] 33.3 g/dL 31 - 3 7 g/dL [place] MCV (RBC) [Entitic vol] 91.5 fL 80 - 100 fL [place] Monocytes (Bld) [#/Vol] 0.90 10*3/uL [place] Monocytes/100 WBC (Bld) 11 % High 1 - 7 % [place] Platelet mean volume (Bld) [Entitic vol] 6.9 fL 6 - 12 fL [place] Platelets (Bld) [#/Vol] 407 10*3/uL [place] Platelets (Bld) [#/Vol] NOT REPORTED [place] RBC (Bld) [#/Vol] 4.39 10*6/uL 4 - 5.2 m/uL [place] RBC morphology finding Nom (Bld) NOT REPORTED [place] Segmented neutrophils/100 WBC (Bld) 52 % 36 - 66 % [place] Segs Absolute 4.20 [place] WBC (Bld) [#/Vol] NOT REPORTED per 100 WBC [place] WBC (Bld) [#/Vol] 8.1 10*3/uL [place] WBC Morphology NOT REPORTED [place] Otheron 10-05-2019 Immature granulocytes (Bld) [#/Vol] NOT REPORTED 0 % [place] XR CHEST PORTABLEon 10-05-19 20 EXAMINATION: [...] could better evaluate lung parenchyma if indicated. [place] Jose Antonio, Mhpn Incoming Radiant Results From [id number] - 10/05/2019 6:01 PM EDT EXAMINATION: ONE [...] base. [facility] dise ase representing atelectasis or infiltrate in the right lung base. Follow up to resolution is suggested. [facility] CHEST PORTABLEon 09-15-19 20 Perihilar and suprahilar airspace opacities could represent interstitial edema versus developing airspace disease. Please correlate exam findings. Follow-up to assure resolution following medical treatment course recommended [facility] [place] EXAMINATION: ONE XRA Y VIEW OF THE CHEST 09/15/2019 5:51 pm COMPARISON: 08/25/2019 HISTORY: ORDERING SYSTEM PROVIDED HISTORY: cough TECHNOLOGIST PROVIDED HISTORY: cough Reason for Exam: cough Acuity: Unknown Type of Exam: Unknown FINDINGS: The cardiomediastinal silhouette is normal in size and contour. Perihilar edema. Patchy suprahilar airspace opacities.. No pleural effusion or pneumothorax is present. [facility] [place] Jose Antonio, Mhpn Incoming Radiant Results From [id number] - 09/15/2019 6:05 PM EDT EXAMINATION: ONE [...] assure resolution following medical treatment course recommended [facility] [place] CBC auto differentialon Basophils (Bld) [#/Vol] 0.00 10*3/uL [place] Basophils/100 WBC (Bld) 0 % 0 - 2 % [place] Differential Type NOT REPORTED [place] Eosinophils (Bld) [#/Vol] 0.00 10*3/uL [place] Eosinophils/100 WBC (Bld) 0 % 0 - 4 % [place] Erythrocyte distribution width (RBC) [Ratio] 13.8 % 11.5 - 14.9 % [place] Hematocrit (Bld) [Volume fraction] 39.9 % 36 - 46 % [place] Hemoglobin (Bld) [Mass/Vol] 13.1 g/dL 12 - 16 g/dL [place] Interpretation and review of laboratory results Abnormal [place] Lymphocytes (Bld) [#/Vol] 1.00 10*3/uL [place] Lymphocytes/100 WBC (Bld) 8 % Low 24 - 44 % [place] MCH (RBC) [Entitic mass] 30.8 pg 26 - 34 pg [place] MCHC (RBC) [Mass/Vol] 32.9 g/dL 31 - 3 7 g/dL [place] MCV (RBC) [Entitic vol] 93.5 fL 80 - 100 fL [place] Monocytes (Bld) [#/Vol] 0.90 10*3/uL [place] Monocytes/100 WBC (Bld) 7 % 1 - 7 % [place] Platelet mean volume (Bld) [Entitic vol] 6.7 fL 6 - 12 fL [place] Platelets (Bld) [#/Vol] NOT REPORTED [place] Platelets (Bld) [#/Vol] 341 10*3/uL [place] RBC (Bld) [#/Vol] 4.27 10*6/uL 4 - 5.2 m/uL [place] RBC morphology finding Nom (Bld) NOT REPORTED [place] Segmented neutrophils/100 WBC (Bld) 85 % High 36 - 66 % [place] Segs Absolute 11.30 [place] WBC (Bld) [#/Vol] NOT REPORTED per 100 WBC [place] WBC (Bld) [#/Vol] 13.2 10*3/uL [place] WBC Morphology NOT REPORTED [place] Comprehensive Metabolic Pane l w/ Reflex to MGon 08-29-2019 Albumin [Mass/Vol] 3.3 g/dL Low 3.5 - 5.2 g/dL [place] Albumin/Globulin [Mass ratio] NOT REPORTED [place] ALP [Catalytic activity/Vol] 51 U/L 35 - 104 U/L [place] ALT [Catalytic activity/Vol] 28 U/L 5 - 33 U/L [place] Anion gap [Moles/Vol] 10 mmol/L 9 - 17 mmol/L [place] AST [Catalytic activity/Vol] 19 U/L <32 [place] Bilirubin Ql (U) 0.23 mg/dL Low 0.3 - 1.2 mg/dL [place] Bun/Cre Ratio NOT REPORTED [place] Calcium [Mass/Vol] 7.9 mg/dL Low 8.6 - 10. 4 mg/dL [place] Chloride [Moles/Vol] 104 mmol/L 98 - 10 7 mmol/L [place] CO2 [Moles/Vol] 28 mmol/L 20 - 31 mmol/L [place] Creatinine [Mass/Vol] 0.73 mg/dL 0.5 - 0.9 mg/dL [place] GFR >60 >60 mL/min [place] GFR Non- >60 >60 mL/min [place] GFR/1.73 sq M predicted among non-blacks MDRD (S/P/Bld) [Vol rate/Area] [place] Comment on above: Average GFR for 60-6 9 years old: 85 mL/min/1.73sq m Chronic Kidney Disease: <60 mL/min/1.73sq m Kidney failure: <15 mL/min/1.73sq m eGFR calculated using average adult body mass. Additional eGFR calculator available at: http://www.FanGo/multiple_crcl_2012.htm GFR/1.73 sq M predicted among non-blacks MDRD (S/P/Bld) [Vol rate/Area] NOT REPORTED [place] Glucose [Mass/Vol] 125 mg/dL High 70 - 99 mg/dL [place] Interpretation and review of laboratory results Abnormal [place] Potassium [Moles/Vol] 4.5 mmol/L 3.7 - 5.3 mmol/L [place] Protein [Mass/Vol] 5.9 g/dL Low 6.4 - 8.3 g/dL [place] Sodium [Moles/Vol] 142 mmol/L 135 - 144 mmol/L [place] Urea nitrogen [Mass/Vol] 28 mg/dL High 8 - 23 mg/dL [place] Otheron 08-29-2019 Immature granulocytes (Bld) [#/Vol] NOT REPORTED [place] CBC auto differentialon Absolute Bands # 0.14 [place] Bands 1 % 0 - 10 % [place] Basophils (Bld) [#/Vol] 0.00 10*3/uL [place] Basophils/100 WBC (Bld) 0 % 0 - 2 % [place] Differential Type NOT REPORTED [place] Eosinophils (Bld) [#/Vol] 0.00 10*3/uL [place] Eosinophils/100 WBC (Bld) 0 % 0 - 4 % [place] Erythrocyte distribution width (RBC) [Ratio] 13.8 % 11.5 - 14.9 % [place] Hematocrit (Bld) [Volume fraction] 40.1 % 36 - 46 % [place] Hemoglobin (Bld) [Mass/Vol] 13.2 g/dL 12 - 16 g/dL [place] Interpretation and review of laboratory results Abnormal [place] Lymphocytes (Bld) [#/Vol] 0.85 10*3/uL Low [place] Lymphocytes/100 WBC (Bld) 6 % Low 24 - 44 % [place] MCH (RBC) [Entitic mass] 30.8 pg 26 - 34 pg [place] MCHC (RBC) [Mass/Vol] 32.9 g/dL 31 - 3 7 g/dL [place] MCV (RBC) [Entitic vol] 93.5 fL 80 - 100 fL [place] Monocytes (Bld) [#/Vol] 0.99 10*3/uL [place] Monocytes/100 WBC (Bld) 7 % 1 - 7 % [place] Morphology Den (Bld) [Interp] Normal [place] Platelet mean volume (Bld) [Entitic vol] 6.7 fL 6 - 12 fL [place] Platelets (Bld) [#/Vol] 339 10*3/uL [place] Platelets (Bld) [#/Vol] NOT REPORTED [place] RBC (Bld) [#/Vol] 4.29 10*6/uL 4 - 5.2 m/uL [place] RBC morphology finding Nom (Bld) NOT REPORTED [place] Segmented neutrophils/100 WBC (Bld) 86 % High 36 - 66 % [place] Segs Absolute 12.22 High [place] WBC (Bld) [#/Vol] 14.2 10*3/uL [place] WBC (Bld) [#/Vol] NOT REPORTED per 100 WBC [place] WBC Morphology NOT REPORTED [place] Comprehensive Metabolic Pane l w/ Reflex to MGon 08-28-2019 Albumin [Mass/Vol] 3.5 g/dL 3.5 - 5.2 g/dL [place] Albumin/Globulin [Mass ratio] NOT REPORTED [place] ALP [Catalytic activity/Vol] 52 U/L 35 - 104 U/L [place] ALT [Catalytic activity/Vol] 17 U/L 5 - 33 U/L [place] Anion gap [Moles/Vol] 10 mmol/L 9 - 17 mmol/L [place] AST [Catalytic activity/Vol] 13 U/L <32 [place] Bilirubin Ql (U) 0.16 mg/dL Low 0.3 - 1.2 mg/dL [place] Bun/Cre Ratio [facility]ED [facility] [place] Calcium [Mass/Vol] 7.8 mg/dL Low 8.6 - 10. 4 mg/dL [place] Chloride [Moles/Vol] 104 mmol/L 98 - 10 7 mmol/L [place] CO2 [Moles/Vol] 29 mmol/L 20 - 31 mmol/L [place] Creatinine [Mass/Vol] 0.82 mg/dL 0.5 - 0.9 mg/dL [place] GFR >60 >60 mL/min [place] GFR Non- >60 >60 mL/min [place] GFR/1.73 sq M predicted among non-blacks MDRD (S/P/Bld) [Vol rate/Area] [place] Comment on above: Average GFR for 60-6 9 years old: 85 mL/min/1.73sq m Chronic Kidney Disease: <60 mL/min/1.73sq m Kidney failure: <15 mL/min/1.73sq m eGFR calculated using average adult body mass. Additional eGFR calculator available at: http://www.FanGo/multiple_crcl_2012.htm GFR/1.73 sq M predicted among non-blacks MDRD (S/P/Bld) [Vol rate/Area] NOT REPORTED [place] Glucose [Mass/Vol] 153 mg/dL High 70 - 99 mg/dL [place] Interpretation and review of laboratory results Abnormal [place] Potassium [Moles/Vol] 4.4 mmol/L 3.7 - 5.3 mmol/L [place] Protein [Mass/Vol] 6.0 g/dL Low 6.4 - 8.3 g/dL [place] Sodium [Moles/Vol] 143 mmol/L 135 - 144 mmol/L [place] Urea nitrogen [Mass/Vol] 21 mg/dL 8 - 23 mg/dL [place] Otheron 08-28-2019 Immature granulocytes (Bld) [#/Vol] NOT REPORTED 0 % [place] Basic Metabolic Panel w/ Ref alvin to MGon 08-26-2019 Anion gap [Moles/Vol] 10 mmol/L 9 - 17 mmol/L [place] Bun/Cre Ratio NOT REPORTED [place] Calcium [Mass/Vol] 8.1 mg/dL Low 8.6 - 10. 4 mg/dL [place] Chloride [Moles/Vol] 104 mmol/L 98 - 10 7 mmol/L [place] CO2 [Moles/Vol] 26 mmol/L 20 - 31 mmol/L [place] Creatinine [Mass/Vol] 0.78 mg/dL 0.5 - 0.9 mg/dL [place] GFR >60 >60 mL/min [place] GFR Non- >60 >60 mL/min [place] GFR/1.73 sq M predicted among non-blacks MDRD (S/P/Bld) [Vol rate/Area] [place] Comment on above: Average GFR for 60-6 9 years old: 85 mL/min/1.73sq m Chronic Kidney Disease: <60 mL/min/1.73sq m Kidney failure: <15 mL/min/1.73sq m eGFR calculated using average adult body mass. Additional eGFR calculator available at: http://www.FanGo/multiple_crcl_2012.htm GFR/1.73 sq M predicted among non-blacks MDRD (S/P/Bld) [Vol rate/Area] NOT REPORTED [place] Glucose [Mass/Vol] 179 mg/dL High 70 - 99 mg/dL [place] Interpretation and review of laboratory results Abnormal [place] Potassium [Moles/Vol] 5.0 mmol/L 3.7 - 5.3 mmol/L [place] Sodium [Moles/Vol] 140 mmol/L 135 - 144 mmol/L [place] Urea nitrogen [Mass/Vol] 20 mg/dL 8 - 23 mg/dL [place] CBCon 08-26-2019 Erythrocyte distribution width (RBC) [Ratio] 13.8 % 11.5 - 14.9 % [place] Hematocrit (Bld) [Volume fraction] 41.6 % 36 - 46 % [place] Hemoglobin (Bld) [Mass/Vol] 14.1 g/dL 12 - 16 g/dL [place] MCH (RBC) [Entitic mass] 31.3 pg 26 - 34 pg [place] MCHC (RBC) [Mass/Vol] 33.9 g/dL 31 - 3 7 g/dL [place] MCV (RBC) [Entitic vol] 92.3 fL 80 - 100 fL [place] Platelet mean volume (Bld) [Entitic vol] 6.9 fL 6 - 12 fL [place] Platelets (Bld) [#/Vol] 316 10*3/uL [place] RBC (Bld) [#/Vol] 4.51 10*6/uL 4 - 5.2 m/uL [place] WBC (Bld) [#/Vol] 6.9 10*3/uL [place] WBC (Bld) [#/Vol] NOT REPORTED per 100 WBC [place] EKG 12 Leadon 08-26-2019 Atrial Rate 133 BPM [place] P [place] 44 degrees [place] P-R Interval 128 ms [place] Q-T Interval 282 ms [place] QRS Duration 84 ms [place] QTc Calculation (Bazett) 419 ms [place] R [place] 51 degrees [place] T [place] 16 degrees [place] Ventricular Rate 133 BPM [place] Sinus tachycardia Otherwise normal ECG No previous ECGs available [place] Jose Antonio, Mhpn Incoming E kg Results From [employer] [place] - 08/26/2019 9:03 AM EST Sinus tachycardia Otherwise normal ECG No previous ECGs available [place] APTTon 08-25-2019 aPTT Coag (Bld) [Time] 30.1 s [place] Comment on above: IV Heparin Therapy Range: 62.0-94.0 Amylaseon 08-25-2019 Amylase [Catalytic activity/Vol] 37 U/L 28 - 100 U/L [place] Basic Metabolic Panel w/ Ref alvin to MGon 08-25-2019 Anion gap [Moles/Vol] 11 mmol/L 9 - 17 mmol/L [place] Bun/Cre Ratio NOT REPORTED [place] Calcium [Mass/Vol] 8.6 mg/dL 8.6 - 10. 4 mg/dL [place] Chloride [Moles/Vol] 97 mmol/L Low 98 - 10 7 mmol/L [place] CO2 [Moles/Vol] 26 mmol/L 20 - 31 mmol/L [place] Creatinine [Mass/Vol] 0.81 mg/dL 0.5 - 0.9 mg/dL [place] GFR >60 >60 mL/min [place] GFR Non- >60 >60 mL/min [place] GFR/1.73 sq M predicted among non-blacks MDRD (S/P/Bld) [Vol rate/Area] NOT REPORTED [place] GFR/1.73 sq M predicted among non-blacks MDRD (S/P/Bld) [Vol rate/Area] [place] Comment on above: Average GFR for 60-6 9 years old: 85 mL/min/1.73sq m Chronic Kidney Disease: <60 mL/min/1.73sq m Kidney failure: <15 mL/min/1.73sq m eGFR calculated using average adult body mass. Additional eGFR calculator available at: http://www.Haiku Deck.Daylife/multiple_crcl_2012.htm Glucose [Mass/Vol] 121 mg/dL High 70 - 99 mg/dL [place] Potassium [Moles/Vol] 4.2 mmol/L 3.7 - 5.3 mmol/L [place] Sodium [Moles/Vol] 134 mmol/L Low 135 - 144 mmol/L [place] Urea nitrogen [Mass/Vol] 17 mg/dL 8 - 23 mg/dL [place] Brain Natriuretic Peptideon 08-25-2019 Natriuretic peptide B (Bld) [Mass/Vol] Pro-BNP Reference Range: [place] Comment on above: Rule Out: <300 [place] Zone: Age <50 300-450 Age 50-75 300-900 Age >75 300-1800 Usually represents mild to moderate HF but other cardiopulmonary causes cannot be ruled out. Rule In: Age <50 >450 Age 50-75 >900 Age >75 >1800 Natriuretic peptide B (Bld) [Mass/Vol] 42 pg/mL <300 [place] Comment on above: Pro-BNP results ridge ot be compared to BNP results. CBC Auto Differentialon Basophils (Bld) [#/Vol] 0.10 10*3/uL [place] Basophils/100 WBC (Bld) 1 % 0 - 2 % [place] Differential Type NOT REPORTED [place] Eosinophils (Bld) [#/Vol] 0.20 10*3/uL [place] Eosinophils/100 WBC (Bld) 2 % 0 - 4 % [place] Erythrocyte distribution width (RBC) [Ratio] 13.8 % 11.5 - 14.9 % [place] Hematocrit (Bld) [Volume fraction] 47.4 % High 36 - 46 % [place] Hemoglobin (Bld) [Mass/Vol] 15.7 g/dL 12 - 16 g/dL [place] Interpretation and review of laboratory results Abnormal [place] Lymphocytes (Bld) [#/Vol] 0.80 10*3/uL Low [place] Lymphocytes/100 WBC (Bld) 7 % Low 24 - 44 % [place] MCH (RBC) [Entitic mass] 30.6 pg 26 - 34 pg [place] MCHC (RBC) [Mass/Vol] 33.2 g/dL 31 - 3 7 g/dL [place] MCV (RBC) [Entitic vol] 92.0 fL 80 - 100 fL [place] Monocytes (Bld) [#/Vol] 0.50 10*3/uL [place] Monocytes/100 WBC (Bld) 4 % 1 - 7 % [place] Platelet mean volume (Bld) [Entitic vol] 7.2 fL 6 - 12 fL [place] Platelets (Bld) [#/Vol] NOT REPORTED [place] Platelets (Bld) [#/Vol] 363 10*3/uL [place] RBC (Bld) [#/Vol] 5.15 10*6/uL 4 - 5.2 m/uL [place] RBC morphology finding Nom (Bld) NOT REPORTED [place] Segmented neutrophils/100 WBC (Bld) 86 % High 36 - 66 % [place] Segs Absolute 10.40 High [place] WBC (Bld) [#/Vol] 12.0 10*3/uL [place] WBC (Bld) [#/Vol] NOT REPORTED per 100 WBC [place] WBC Morphology NOT REPORTED [place] Hepatic Function Panelon Albumin [Mass/Vol] 4 g/dL 3.5 - 5.2 g/dL [place] Albumin/Globulin [Mass ratio] NOT REPORTED [place] ALP [Catalytic activity/Vol] 67 U/L 35 - 104 U/L [place] ALT [Catalytic activity/Vol] 19 U/L 5 - 33 U/L [place] AST [Catalytic activity/Vol] 12 U/L <32 [place] Bilirubin Ql (U) 0.53 mg/dL 0.3 - 1.2 mg/dL [place] Bilirubin, Indirect 0.39 mg/dL 0 - 1 mg/dL [place] Bilirubin.direct [Mass/Vol] 0.14 mg/dL <0.31 [place] Globulin (S) [Mass/Vol] NOT REPORTED 1.5 - 3.8 g/dL [place] Protein [Mass/Vol] 7.4 g/dL 6.4 - 8.3 g/dL [place] Lipaseon 08-25-2019 Lipase [Catalytic activity/Vol] 12 U/L Low 13 - 60 U/L [place] Otheron 08-25-2019 Interpretation and review of laboratory results Abnormal [place] Immature granulocytes (Bld) [#/Vol] NOT REPORTED 0 % [place] Protime-INRon 08-25-2019 INR Coag (PPP) [Relative time] 1.1 {INR} [place] Comment on above: Non-therapeutic Range: INR = 0.9-1.2 Therapeutic Range: Moderate Anticoagulant Intensity: INR = 2.0-3.0 High Anticoagulant Intensity: INR = 2.5-3.5 PT Coag (PPP) [Time] 13.6 s [place] Rapid influenza A/B antigens on 08-25-2019 Direct Exam Negative [place] Direct Exam Positive Abnormal [place] Interpretation and review of laboratory results Abnormal [place] Special Requests NOT REPORTED [place] Specimen Description .NASOPHARYNGEAL SWAB [place] Troponinon 08-25-2019 Troponin I.cardiac [Mass/Vol] NOT REPORTED [place] Troponin T.cardiac [Mass/Vol] NOT REPORTED <0.03 ng/mL [place] Troponin, High Sensitivity 9 ng/L 0 - 14 ng/L [place] Comment on above: High Sensitivity Troponin [...] diaphragm. No evidence of acute osseous abnormality. [place] Jose Antonio, Mhpn Incoming Radiant Results From [employer] - 08/25/2019 4:43 PM EST EXAMINATION: ONE [...] vascular congestion. Interstitial edema appears slightly improved. [place] Unchanged mild cardiomegaly and vascular congestion. Interstitial edema appears slightly improved. [place] Basic Metabolic Profon 08-10 Anion gap [Moles/Vol] 11 mmol/L 9 - 17 mmol/L [place] Bun/Cre Ratio NOT REPORTED [place] Calcium [Mass/Vol] 7.7 mg/dL Low 8.6 - 10. 4 mg/dL [place] Chloride [Moles/Vol] 101 mmol/L 98 - 10 7 mmol/L [place] CO2 [Moles/Vol] 28 mmol/L 20 - 31 mmol/L [place] Creatinine [Mass/Vol] 0.75 mg/dL 0.5 - 0.9 mg/dL [place] GFR >60 >60 mL/min [place] GFR Non- >60 >60 mL/min [place] GFR/1.73 sq M predicted among non-blacks MDRD (S/P/Bld) [Vol rate/Area] [place] Comment on above: Average GFR for 60-6 9 years old: 85 mL/min/1.73sq m Chronic Kidney Disease: <60 mL/min/1.73sq m Kidney failure: <15 mL/min/1.73sq m eGFR calculated using average adult body mass. Additional eGFR calculator available at: http://www.FanGo/multiple_crcl_2012.htm GFR/1.73 sq M predicted among non-blacks MDRD (S/P/Bld) [Vol rate/Area] NOT REPORTED [place] Glucose [Mass/Vol] 162 mg/dL High 70 - 99 mg/dL [place] Interpretation and review of laboratory results Abnormal [place] Potassium [Moles/Vol] 4.1 mmol/L 3.7 - 5.3 mmol/L [place] Sodium [Moles/Vol] 140 mmol/L 135 - 144 mmol/L [place] Urea nitrogen [Mass/Vol] 29 mg/dL High 8 - 23 mg/dL [place] CBCon 08-10-2019 Erythrocyte distribution width (RBC) [Ratio] 13.4 % 11.5 - 14.9 % [place] Hematocrit (Bld) [Volume fraction] 41.6 % 36 - 46 % [place] Hemoglobin (Bld) [Mass/Vol] 13.9 g/dL 12 - 16 g/dL [place] Interpretation and review of laboratory results Abnormal [place] MCH (RBC) [Entitic mass] 31.1 pg 26 - 34 pg [place] MCHC (RBC) [Mass/Vol] 33.4 g/dL 31 - 3 7 g/dL [place] MCV (RBC) [Entitic vol] 93.2 fL 80 - 100 fL [place] Platelet mean volume (Bld) [Entitic vol] 7.6 fL 6 - 12 fL [place] Platelets (Bld) [#/Vol] 326 10*3/uL [place] RBC (Bld) [#/Vol] 4.46 10*6/uL 4 - 5.2 m/uL [place] WBC (Bld) [#/Vol] NOT REPORTED per 100 WBC [place] WBC (Bld) [#/Vol] 13.2 10*3/uL [place] XR CHEST STANDARD (2 VW)on 0 [...] the costophrenic angles on the lateral view. [place] Jose Antonio, Mhpn Incoming Radiant Results From [employer] - 08/10/2019 9:50 AM EST EXAMINATION: TWO [...] radiographic follow-up is recommended to ensure clearance. [place] Cardiomegaly with mi ld vascular congestion noted concerning for mild interstitial pulmonary edema. This is new from the previous exam and continued radiographic follow-up is recommended to ensure clearance. [place] Basic Metabolic Profon 08-09 Anion gap [Moles/Vol] 11 mmol/L 9 - 17 mmol/L [place] Bun/Cre Ratio NOT REPORTED [facility] Calcium [Mass/Vol] 7.6 mg/dL Low 8.6 - 10. 4 mg/dL [place] Chloride [Moles/Vol] 100 mmol/L 98 - 10 7 mmol/L [place] CO2 [Moles/Vol] 28 mmol/L 20 - 31 mmol/L [place] Creatinine [Mass/Vol] 0.86 mg/dL 0.5 - 0.9 mg/dL [place] GFR >60 >60 mL/min [place] GFR Non- >60 >60 mL/min [place] GFR/1.73 sq M predicted among non-blacks MDRD (S/P/Bld) [Vol rate/Area] NOT REPORTED [place] GFR/1.73 sq M predicted among non-blacks MDRD (S/P/Bld) [Vol rate/Area] [place] Comment on above: Average GFR for 60-6 9 years old: 85 mL/min/1.73sq m Chronic Kidney Disease: <60 mL/min/1.73sq m Kidney failure: <15 mL/min/1.73sq m eGFR calculated using average adult body mass. Additional eGFR calculator available at: http://www.Haiku Deck.Daylife/multiple_crcl_2011.htm Glucose [Mass/Vol] 140 mg/dL High 70 - 99 mg/dL [place] Interpretation and review of laboratory results Abnormal [place] Potassium [Moles/Vol] 4.5 mmol/L 3.7 - 5.3 mmol/L [place] Sodium [Moles/Vol] 139 mmol/L 135 - 144 mmol/L [place] Urea nitrogen [Mass/Vol] 29 mg/dL High 8 - 23 mg/dL [place] CBCon 08-09-2019 Erythrocyte distribution width (RBC) [Ratio] 13.6 % 11.5 - 14.9 % [place] Hematocrit (Bld) [Volume fraction] 40.1 % 36 - 46 % [place] Hemoglobin (Bld) [Mass/Vol] 13.5 g/dL 12 - 16 g/dL [place] Interpretation and review of laboratory results Abnormal [place] MCH (RBC) [Entitic mass] 31.2 pg 26 - 34 pg [place] MCHC (RBC) [Mass/Vol] 33.7 g/dL 31 - 3 7 g/dL [place] MCV (RBC) [Entitic vol] 92.6 fL 80 - 100 fL [place] Platelet mean volume (Bld) [Entitic vol] 7.3 fL 6 - 12 fL [place] Platelets (Bld) [#/Vol] 334 10*3/uL [place] RBC (Bld) [#/Vol] 4.34 10*6/uL 4 - 5.2 m/uL [place] WBC (Bld) [#/Vol] 15.9 10*3/uL [place] WBC (Bld) [#/Vol] NOT REPORTED per 100 WBC [place] Fungal stainon 08-09-2019 Direct Exam NO FUNGAL ELEMENTS SEEN [place] Special Requests NOT REPORTED [place] Specimen Description .BRONCHIAL WASHINGS [place] Otheron 08-09-2019 Direct Exam Positive Abnormal [place] Respiratory Cultureon 2019 Culture NORMAL RESPIRATORY CHERYL HEAVY GROWTH [place] Direct Exam FEW NEUTROPHILS Abnormal [place] Interpretation and review of laboratory results Abnormal [place] Special Requests NOT REPORTED [place] Specimen Description .BRONCHIAL WASHINGS [place] Surgical Pathologyon 020 Surgical Pathology Report [id number] [place] [address] SURGICAL PATHOLOGY REPORT Patient Name: CAMERON US MR#: [id number] Specimen #[id number] Final Diagnosis Parts A & B. Lungs, bronchial washings (cytology and cell block): - Adequate for evaluation. - Benign squamous cells and reactive bronchial epithelial cells with macrophages, mixed inflammation, and mucinous debris. - Negative for malignancy. Alin Valencia M.D. Electronically Signed Out vv08/09/2019 Clinical Information COPD; bronchoscopy Source: A: Bronchial washing, smears, cytospins, Thin Prep B: Bronchial washing, sediment Gross Description Specimen A : The specimen consists of 13.0 ml of pink, mucoid, cloudy fluid. Approximately 3 ml are sent to [facility] for ThinPrep. Two smears and two cytospin preparations are made. Specimen B : The entire specimen is centrifuged for cell block. The volume of sediment is 0.5 cc. It is submitted for cell block preparation. Microscopic Description Five cytology and two H&E cell block slides reviewed. Microscopic examination performed and supports the diagnostic impression. [place] Basic Metabolic Profon 08-08 Anion gap [Moles/Vol] 8 mmol/L Low 9 - 17 mmol/L [place] Bun/Cre Ratio NOT REPORTED [place] Calcium [Mass/Vol] 8.0 mg/dL Low 8.6 - 10. 4 mg/dL [place] Chloride [Moles/Vol] 106 mmol/L 98 - 10 7 mmol/L [place] CO2 [Moles/Vol] 26 mmol/L 20 - 31 mmol/L [place] Creatinine [Mass/Vol] 0.75 mg/dL 0.5 - 0.9 mg/dL [place] GFR >60 >60 mL/min [place] GFR Non- >60 >60 mL/min [place] GFR/1.73 sq M predicted among non-blacks MDRD (S/P/Bld) [Vol rate/Area] NOT REPORTED [place] GFR/1.73 sq M predicted among non-blacks MDRD (S/P/Bld) [Vol rate/Area] [place] Comment on above: Average GFR for 60-6 9 years old: 85 mL/min/1.73sq m Chronic Kidney Disease: <60 mL/min/1.73sq m Kidney failure: <15 mL/min/1.73sq m eGFR calculated using average adult body mass. Additional eGFR calculator available at: http://www.Haiku [employer]ck.Daylife/multiple_crcl_2012.htm Glucose [Mass/Vol] 154 mg/dL High 70 - 99 mg/dL [place] Interpretation and review of laboratory results Abnormal [place] Potassium [Moles/Vol] 5.1 mmol/L 3.7 - 5.3 mmol/L [place] Sodium [Moles/Vol] 140 mmol/L 135 - 144 mmol/L [place] Urea nitrogen [Mass/Vol] 32 mg/dL High 8 - 23 mg/dL [place] Body fluid cell counton 07-23 Appearance, Fluid TURBID [facility] [place] Color, Fluid PALE YELLOW [facility] [place] RBC, Fluid 294 /mm3 [place] Specimen type Nom (Spec) .BRONCHIAL WASHINGS [place], [place] WBC, Fluid 113 /mm3 [place] CBCon 08-08-2019 Erythrocyte distribution width (RBC) [Ratio] 13.5 % 11.5 - 14.9 % [place] Hematocrit (Bld) [Volume fraction] 42.1 % 36 - 46 % [place] Hemoglobin (Bld) [Mass/Vol] 14.0 g/dL 12 - 16 g/dL [place] Interpretation and review of laboratory results Abnormal [place] MCH (RBC) [Entitic mass] 30.7 pg 26 - 34 pg [place] MCHC (RBC) [Mass/Vol] 33.2 g/dL 31 - 3 7 g/dL [place] MCV (RBC) [Entitic vol] 92.4 fL 80 - 100 fL [place] Platelet mean volume (Bld) [Entitic vol] 7.2 fL 6 - 12 fL [place] Platelets (Bld) [#/Vol] 355 10*3/uL [place] RBC (Bld) [#/Vol] 4.55 10*6/uL 4 - 5.2 m/uL [place] WBC (Bld) [#/Vol] 18.5 10*3/uL [place] WBC (Bld) [#/Vol] NOT REPORTED per 100 WBC [place] Differential, Body Fluidon 0 08-08-2019 Basos, Fluid 0 % [place] Eos, Fluid 7 % High 0 [place] Fluid Diff Comment TO BE REVIEWED BY PATHOLOGIST [place] Comment on above: Reviewed by patholog ist: Justin Chambers D.O. SLIDE REVIEWED. MACROPHAGES, NEUTROPHILS WITH RARE LYMPHOCYTES AND EOSINOPHIILS NOTED. Interpretation and review of laboratory results Abnormal [place] Lymphocytes, Body Fluid 7 % High 0 [place] Monocyte Count, Fluid 40 % High 0 [place] Neutrophil Count, Fluid 46 % High 0 [place] Other Cells, Fluid 0 % [place] Basic Metabolic Profon 08-07 Anion gap [Moles/Vol] 11 mmol/L 9 - 17 mmol/L [place] Bun/Cre Ratio NOT REPORTED [place] Calcium [Mass/Vol] 8.1 mg/dL Low 8.6 - 10. 4 mg/dL [place] Chloride [Moles/Vol] 105 mmol/L 98 - 10 7 mmol/L [place] CO2 [Moles/Vol] 24 mmol/L 20 - 31 mmol/L [place] Creatinine [Mass/Vol] 0.93 mg/dL High 0.5 - 0.9 mg/dL [place] GFR >60 >60 mL/min [place] GFR Non- >60 >60 mL/min [place] GFR/1.73 sq M predicted among non-blacks MDRD (S/P/Bld) [Vol rate/Area] NOT REPORTED [place] GFR/1.73 sq M predicted among non-blacks MDRD (S/P/Bld) [Vol rate/Area] [place] Comment on above: Average GFR for 60-6 9 years old: 85 mL/min/1.73sq m Chronic Kidney Disease: <60 mL/min/1.73sq m Kidney failure: <15 mL/min/1.73sq m eGFR calculated using average adult body mass. Additional eGFR calculator available at: http://www.FanGo/multiple_crcl_2012.htm Glucose [Mass/Vol] 172 mg/dL High 70 - 99 mg/dL [place] Interpretation and review of laboratory results Abnormal [place] Potassium [Moles/Vol] 5.1 mmol/L 3.7 - 5.3 mmol/L [place] Sodium [Moles/Vol] 140 mmol/L 135 - 144 mmol/L [place] Urea nitrogen [Mass/Vol] 26 mg/dL High 8 - 23 mg/dL [place] CBCon 08-07-2019 Erythrocyte distribution width (RBC) [Ratio] 13.8 % 11.5 - 14.9 % [place] Hematocrit (Bld) [Volume fraction] 42.8 % 36 - 46 % [place] Hemoglobin (Bld) [Mass/Vol] 14.1 g/dL 12 - 16 g/dL [place] Interpretation and review of laboratory results Abnormal [place] MCH (RBC) [Entitic mass] 30.8 pg 26 - 34 pg [place] MCHC (RBC) [Mass/Vol] 33.0 g/dL 31 - 3 7 g/dL [place] MCV (RBC) [Entitic vol] 93.1 fL 80 - 100 fL [place] Platelet mean volume (Bld) [Entitic vol] 7.5 fL 6 - 12 fL [place] Platelets (Bld) [#/Vol] 367 10*3/uL [place] RBC (Bld) [#/Vol] 4.59 10*6/uL 4 - 5.2 m/uL [place] WBC (Bld) [#/Vol] 20.0 10*3/uL [place] WBC (Bld) [#/Vol] NOT REPORTED per 100 WBC [place] Basic Metabolic Profon 08-06 Anion gap [Moles/Vol] 10 mmol/L 9 - 17 mmol/L [place] Bun/Cre Ratio NOT REPORTED [place] Calcium [Mass/Vol] 8.2 mg/dL Low 8.6 - 10. 4 mg/dL [place] Chloride [Moles/Vol] 102 mmol/L 98 - 10 7 mmol/L [place] CO2 [Moles/Vol] 25 mmol/L 20 - 31 mmol/L [place] Creatinine [Mass/Vol] 0.75 mg/dL 0.5 - 0.9 mg/dL [place] GFR >60 >60 mL/min [place] GFR Non- >60 >60 mL/min [place] GFR/1.73 sq M predicted among non-blacks MDRD (S/P/Bld) [Vol rate/Area] [place] Comment on above: Average GFR for 60-6 9 years old: 85 mL/min/1.73sq m Chronic Kidney Disease: <60 mL/min/1.73sq m Kidney failure: <15 mL/min/1.73sq m eGFR calculated using average adult body mass. Additional eGFR calculator available at: http://www.FanGo/multiple_crcl_2012.htm GFR/1.73 sq M predicted among non-blacks MDRD (S/P/Bld) [Vol rate/Area] NOT REPORTED [place] Glucose [Mass/Vol] 166 mg/dL High 70 - 99 mg/dL [place] Interpretation and review of laboratory results Abnormal [place] Potassium [Moles/Vol] 4.1 mmol/L 3.7 - 5.3 mmol/L [place] Sodium [Moles/Vol] 137 mmol/L 135 - 144 mmol/L [place] Urea nitrogen [Mass/Vol] 21 mg/dL 8 - 23 mg/dL [place] CBCon 08-06-2019 Erythrocyte distribution width (RBC) [Ratio] 13.5 % 11.5 - 14.9 % [place] Hematocrit (Bld) [Volume fraction] 43.2 % 36 - 46 % [place] Hemoglobin (Bld) [Mass/Vol] 14.5 g/dL 12 - 16 g/dL [place] MCH (RBC) [Entitic mass] 31.1 pg 26 - 34 pg [place] MCHC (RBC) [Mass/Vol] 33.5 g/dL 31 - 3 7 g/dL [place] MCV (RBC) [Entitic vol] 92.7 fL 80 - 100 fL [place] Platelet mean volume (Bld) [Entitic vol] 7.2 fL 6 - 12 fL [place] Platelets (Bld) [#/Vol] 366 10*3/uL [place] RBC (Bld) [#/Vol] 4.66 10*6/uL 4 - 5.2 m/uL [place] WBC (Bld) [#/Vol] NOT REPORTED per 100 WBC [place] WBC (Bld) [#/Vol] 7.9 10*3/uL [place] Basic Metabolic Panelon 07-23 Anion gap [Moles/Vol] 14 mmol/L 9 - 17 mmol/L [place] Bun/Cre Ratio NOT REPORTED [place] Calcium [Mass/Vol] 8.6 mg/dL 8.6 - 10. 4 mg/dL [place] Chloride [Moles/Vol] 102 mmol/L 98 - 10 7 mmol/L [place] CO2 [Moles/Vol] 25 mmol/L 20 - 31 mmol/L [place] Creatinine [Mass/Vol] 0.85 mg/dL 0.5 - 0.9 mg/dL [place] GFR >60 >60 mL/min [place] GFR Non- >60 >60 mL/min [place] GFR/1.73 sq M predicted among non-blacks MDRD (S/P/Bld) [Vol rate/Area] [place] Comment on above: Average GFR for 60-6 9 years old: 85 mL/min/1.73sq m Chronic Kidney Disease: <60 mL/min/1.73sq m Kidney failure: <15 mL/min/1.73sq m eGFR calculated using average adult body mass. Additional eGFR calculator available at: http://www.[employer].Daylife/multiple_crcl_2012.htm GFR/1.73 sq M predicted among non-blacks MDRD (S/P/Bld) [Vol rate/Area] NOT REPORTED [place] Glucose [Mass/Vol] 97 mg/dL 70 - 99 mg/dL [place] Potassium [Moles/Vol] 4.5 mmol/L 3.7 - 5.3 mmol/L [place] Sodium [Moles/Vol] 141 mmol/L 135 - 144 mmol/L [place] Urea nitrogen [Mass/Vol] 19 mg/dL 8 - 23 mg/dL [place] CBC Auto Differentialon 07-23 Basophils (Bld) [#/Vol] 0.10 10*3/uL [place] Basophils/100 WBC (Bld) 1 % 0 - 2 % [place] Differential Type NOT REPORTED [place] Eosinophils (Bld) [#/Vol] 0.80 10*3/uL [place] Eosinophils/100 WBC (Bld) 9 % High 0 - 4 % [place] Erythrocyte distribution width (RBC) [Ratio] 13.2 % 11.5 - 14.9 % [place] Hematocrit (Bld) [Volume fraction] 46.8 % High 36 - 46 % [place] Hemoglobin (Bld) [Mass/Vol] 15.6 g/dL 12 - 16 g/dL [place] Interpretation and review of laboratory results Abnormal [place] Lymphocytes (Bld) [#/Vol] 2.70 10*3/uL [place] Lymphocytes/100 WBC (Bld) 30 % 24 - 44 % [place] MCH (RBC) [Entitic mass] 31.1 pg 26 - 34 pg [place] MCHC (RBC) [Mass/Vol] 33.4 g/dL 31 - 3 7 g/dL [place] MCV (RBC) [Entitic vol] 93.1 fL 80 - 100 fL [place] Monocytes (Bld) [#/Vol] 0.70 10*3/uL [place] Monocytes/100 WBC (Bld) 8 % High 1 - 7 % [place] Platelet mean volume (Bld) [Entitic vol] 7.0 fL 6 - 12 fL [place] Platelets (Bld) [#/Vol] NOT REPORTED [place] Platelets (Bld) [#/Vol] 396 10*3/uL [place] RBC (Bld) [#/Vol] 5.02 10*6/uL 4 - 5.2 m/uL [place] RBC morphology finding Nom (Bld) NOT REPORTED [place] Segmented neutrophils/100 WBC (Bld) 52 % 36 - 66 % [place] Segs Absolute 4.80 [place] WBC (Bld) [#/Vol] NOT REPORTED per 100 WBC [place] WBC (Bld) [#/Vol] 9.2 10*3/uL [place] WBC Morphology NOT REPORTED [place] D-Dimer, Quantitativeon 07-23 D-Dimer, Quant <0.27 [place] Comment on above: When combined with [...] 08-05-2019 Immature granulocytes (Bld) [#/Vol] NOT REPORTED [facility] [place] Procalcitoninon 08-05-2019 Procalcitonin 0.06 ng/mL <0.09 [facility] [place] Comment on above: Suspected Sepsis: 0.09-0.49 ng/mL [...] entered into the Change in Procalcitonin Calculator (www.qoeivi-fma-gtsfuehrxq.Daylife) to determine the patient's Mortality Risk Prognosis XR CHEST PORTABLEon 08-05-19 20 Jose Antonio, pn Incoming Radiant Results From [employer] - 08/05/2019 3:07 PM EST EXAMINATION: ONE [...] identified. IMPRESSION: No acute airspace disease identified. [facility]: ONE XRA Y VIEW OF THE CHEST 08/05/2019 2:02 pm COMPARISON: None. HISTORY: ORDERING SYSTEM PROVIDED HISTORY: Chest Pain TECHNOLOGIST PROVIDED HISTORY: Chest Pain Reason for Exam: CHEST PAIN Acuity: Unknown Type of Exam: Unknown FINDINGS: Mild cardiac silhouette enlargement. Generalized interstitial prominence without consolidation, pneumothorax or evidence for edema. No effusion. No acute osseous abnormality identified. [place] No acute airspace disease identified. [place] Glucose, Fastingon 9 Glucose [Mass/Vol] 93 mg/dL Normal 70-99 [facility] Comment on above: Performed By: #### G ARTEMIOF, LIPRF, TSH #### [facility] [employer] [address] [place] [address] [phone] Veneer Puller: Beau Troncoso MD Glucose [Mass/Vol] 93 mg/dL 70 - 99 mg/dL [place] Lipid Prof, Fastingon 2018 Cholesterol [Mass/Vol] 275 mg/dL High <200 [facility] Comment on above: Result Comment: Cholesterol Guidelines: <200 Desirable 200-240 Borderline >240 Undesirable Performed By: #### G JOSE LIPRF, TSH #### [facility] [employer] [address] [place] [address] [phone] Veneer Puller: Beau Troncoso MD Cholesterol in HDL [Mass/Vol] 48 mg/dL Normal >40 [facility] Comment on above: Result Comment: HDL Guidelines: <40 Undesirable 40-59 Borderline >59 Desirable Performed By: #### G JOSE LIPRF, TSH #### [facility] [employer] [address] [place] [address] [phone] Veneer Puller: Beau Troncoso MD Cholesterol in LDL [Mass/Vol] 196 mg/dL High 0-130 [facility] Comment on above: Result Comment: LDL Guidelines: <100 Desirable 100-129 Near to/above Desirable 130-159 Borderline >159 Undesirable Direct (measured) LDL and calculated LDL are not interchangeable tests. Performed By: #### G JOSE, LIPRF, TSH #### [facility] [employer] [address] [place] [address] [phone] Veneer Puller: Beau Troncoso MD Cholesterol.total/Chol esterol in HDL [Mass ratio] 5.7 {ratio} High <5 [facility] Comment on above: Performed By: #### G LUF, LIPRF, TSH #### [employer] [address] [place], [place] [phone] Veneer Puller: Beau Troncoso MD Triglyceride,Fasting 153 mg/dL High <150 [facility] Comment on above: Result Comment: Triglyceride Guidelines: <150 Desirable 150-199 Borderline 200-499 High >499 Very high Based on AHA Guidelines for fasting triglyceride, March 2012. Performed By: #### G LUF, LIPRF, TSH #### [facility] [address] [place], [place] [phone] Veneer Puller: Beau Troncoso MD Cholesterol in VLDL [Mass/Vol] NOT REPORTED Normal 1-30 [facility] Comment on above: Performed By: #### G JOSE, LIPRF, TSH #### [facility] [address] [place] [phone] Veneer Puller: Beau Troncoso MD Lipid, Fastingon 05-11-2019 Cholesterol [Mass/Vol] 275 mg/dL High <200 [place] Comment on above: Cholesterol Guidelines: <200 Desirable 200-240 Borderline >240 Undesirable Cholesterol in HDL [Mass/Vol] 48 mg/dL >40 [place] Comment on above: HDL Guidelines: <40 Undesirable 40-59 Borderline >59 Desirable Cholesterol in LDL [Mass/Vol] 196 mg/dL High 0 - 130 mg/dL [place] Comment on above: LDL Guidelines: <100 Desirable 100-129 Near to/above Desirable 130-159 Borderline >159 Undesirable Direct (measured) LDL and calculated LDL are not interchangeable tests. Cholesterol in VLDL [Mass/Vol] NOT REPORTED High 1 - 30 mg/dL [place] Cholesterol.total/Chol esterol in HDL [Mass ratio] 5.7 {ratio} High <5 [place] Interpretation and review of laboratory results Abnormal [place] Triglyceride, Fasting 153 mg/dL High <150 [place] Comment on above: Triglyceride Guidelines: <150 Desirable 150-199 Borderline 200-499 High >499 Very high Based on AHA Guidelines for fasting triglyceride, March 2012. TSHon 05-11-2019 Interpretation and review of laboratory results Abnormal [facility], [place] TSH Qn 25.72 m[IU]/L [facility] [place], [place] Thyroid Stim. Horm.on 2018 TSH Qn 25.72 m[IU]/L High 0.30-5.00 [facility] Comment on above: Performed By: #### G LUF, LIPRF, TSH #### [facility] [address] [place], [place] [id number] Veneer Puller: Beau Troncoso MD Vital Signs Date Time Vital Sign Value Performing Clinician Facility 07-30-2023 10:47-0500 Body height 172.7 cm [employer] DO Work Phone: [facility] 07-30-2023 10:47-0500 Body mass index (BMI) [Ratio] 36.74 kg/m2 Louie Nanapi DO Work Phone: [facility] 07-30-2023 10:47-0500 Body temperature 98.1 [degF] Louie Nanapi DO Work Phone: [facility] 07-30-2023 10:47-0500 Body weight 109.59 kg Louie [employer] DO Work Phone: [facility] 07-30-2023 10:47-0500 Diastolic blood pressure 80 mm[Hg] Louie [employer] DO Work Phone: [facility] 07-30-2023 10:47-0500 Heart rate 89 /min Louie [employer] DO Work Phone: [facility] 07-30-2023 10:47-0500 SaO2% (BldA) [Mass fraction] 95 % Louie [employer] DO Work Phone: [facility] 07-30-2023 10:47-0500 Systolic blood pressure 130 mm[Hg] [employer] DO Work Phone: [facility] 11-22-2020 12:40-0400 Respiratory rate 29 /min Heena John MD [employer] Phone: 11-22-2020 12:40-0400 SaO2% (BldA) [Mass fraction] 100 % Heena John MD [employer] Phone: 11-22-2020 12:30-0400 Diastolic blood pressure 58 mm[Hg] Heena John MD [employer] Phone: 11-22-2020 12:30-0400 Heart rate 85 /min Heena John MD [employer] Phone: 11-22-2020 12:30-0400 Systolic blood pressure 108 mm[Hg] Heena John MD [employer] Phone: 11-22-2020 12:09-0400 Body height 175.3 cm Heena John MD [employer] Phone: 11-22-2020 12:09-0400 Body mass index (BMI) [Ratio] 33.97 kg/m2 Heena John MD [employer] Phone: 11-22-2020 12:09-0400 Body temperature 97.3 [degF] Heena John MD [employer] Phone: 11-22-2020 12:09-0400 Body weight 104.33 kg Heena John MD [employer] Phone: 11-02-2019 13:15-0400 BP Diastolic 61 mm[Hg] [place] , [place] 11-02-2019 13:15-0400 BP Systolic 118 mm[Hg] [employer] [place] , [place] 11-02-2019 13:15-0400 Pulse (Heart Rate) 87 /min Warren Omnisio [place], [place] 11-02-2019 13:15-0400 Pulse Oximetry 97 % Warren Omnisio [place] , [place] 11-02-2019 13:15-0400 Respiratory Rate 17 /min Warren Omnisio [facility], [place] 11-02-2019 10:12-0400 BMI (Body Mass Index) 29.53 kg/m2 Warren Olivas [facility], [place] 11-02-2019 10:12-0400 Body Temperature 98.91 [degF] [facility] [place] 11-02-2019 10:12-0400 Body weight 90.72 kg [facility] [place] 10-08-2019 11:51-0400 Pulse Oximetry 98 % [facility] , [place] 10-08-2019 11:51-0400 Respiratory Rate 12 /min [facility], [place] 10-08-2019 08:42-0400 Body Temperature 98.1 [degF] [facility] 10-08-2019 08:42-0400 BP Diastolic 70 mm[Hg] [facility] , [place] 10-08-2019 08:42-0400 BP Systolic 137 mm[Hg] [facility] , [place] 10-08-2019 08:42-0400 Pulse (Heart Rate) 99 /min [facility], [place] 10-08-2019 06:30-0400 BMI (Body Mass Index) 32.43 kg/m2 [facility], [place] 10-08-2019 06:30-0400 Body weight 99.6 kg [facility] , [place] 10-05-2019 18:01-0400 Height 175.3 cm [facility] , [place] 09-15-2019 18:31-0400 Body Temperature 98.91 [degF] [facility], [place] 09-15-2019 18:31-0400 BP Diastolic 63 mm[Hg] [facility] [place] , [place] 09-15-2019 18:31-0400 BP Systolic 133 mm[Hg] [facility] [place] [facility] [place] 09-15-2019 18:31-0400 Pulse (Heart Rate) 101 /min [facility] [place] 09-15-2019 18:31-0400 Pulse Oximetry 93 % [facility] [place] [facility] [place] 09-15-2019 18:31-0400 Respiratory Rate 18 /min [facility] [place] 09-15-2019 17:26-0400 BMI (Body Mass Index) 32.19 kg/m2 Levy Holm [facility], [place] 09-15-2019 17:26-0400 Body weight 98.88 kg Levy [facility] , [place] 08-29-2019 15:11-0400 Pulse Oximetry 95 % Jacob [facility] , [place] 08-29-2019 14:42-0400 Body Temperature 98.29 [degF] [facility] [place] 08-29-2019 14:42-0400 BP Diastolic 65 mm[Hg] [facility] , [place] 08-29-2019 14:42-0400 BP Systolic 133 mm[Hg] [facility] [place] 08-29-2019 14:42-0400 Pulse (Heart Rate) 84 /min Jacob [facility], [place] 08-29-2019 14:42-0400 Respiratory Rate 16 /min Jacob [facility] [place], [place] 08-29-2019 06:34-0400 BMI (Body Mass Index) 32.17 kg/m2 Jacob Granado [facility], [place] 08-29-2019 06:34-0400 Body weight 98.8 kg [facility] [place] 08-25-2019 15:11-0500 Height 175.3 cm [facility] [place] 08-10-2019 14:26-0500 Body Temperature 97.2 [degF] Heena John [facility], [place] 08-10-2019 14:26-0500 BP Diastolic 81 mm[Hg] Heena John [facility] [place] , [place] 08-10-2019 14:26-0500 BP Systolic 159 mm[Hg] Heena John [facility] [place] , [place] 08-10-2019 14:26-0500 Pulse (Heart Rate) 86 /min Heena John [facility], [place] 08-10-2019 14:26-0500 Pulse Oximetry 94 % Heena John [facility] , [place] 08-10-2019 14:26-0500 Respiratory Rate 16 /min Heena Holm [facility], [place]AT[facility]Z 08-07-2019 06:00-0500 BMI (Body Mass Index) 31.58 kg/m2 Heena Holm [facility], [place]AT[place] 08-07-2019 06:00-0500 Body weight 97 kg Heena Holm [facility] , [place] 08-05-2019 16:57-0500 Height 175.3 cm Heena John [facility] , [place] Encounters Encounter Date Encounter Type Care Provider Facility Start: 08-31-2023 End: 09-01-2023 [facility] Start: 08-25-2023 Telephone encounter [facility] Start: 08-10-2023 End: 08-11-2023 ambulatory Belle Monet MD Facility: [facility] Start: 08-03-2023 End: 08-04-2023 ambulatory Belle Monet MD Facility: [facility] Start: 07-30-2023 End: 07-30-2023 ambulatory LOUIE PAUL [facility] Start: 07-30-2023 End: 07-30-2023 Office outpatient visit 25 minutes Louie Paul DO Work Phone: [facility] Comment on above: Chronic obstructive pulmonary disease, unspecified COPD type [place] (Primary Dx); Right-sided low back pain without sciatica, unspecified chronicity; Postoperative hypothyroidism; Obstructive sleep apnea Start: 07-19-2023 Refill Louie villa DO Work Phone: [facility] Comment on above: Acute exacerbation o f chronic obstructive pulmonary disease (COPD) ([facility] Start: 07-14-2023 Refill Louie villa DO Work Phone: [facility] Comment [...] 11-22-2020 End: 11-22-2020 Emergency department patient visit [facility] Start: 11-22-2020 End: 11-22-2020 Emergency department patient visit Heena John MD [facility] ED Comment on above: COPD exacerbation (H CC) (Primary Dx) Start: 04-18-2020 End: 04-21-2020 ambulatory [facility] Start: 04-16-2020 End: 04-17-2020 Patient encounter procedure [facility] Start: 04-16-2020 End: 04-16-2020 Subsequent hospital visit by physician Caden [employer] ALVAREZ [facility] Comment on above: Dizziness; Polydipsia Start: 03-23-2020 End: 03-26-2020 ambulatory ENESI O CORA [facility] Start: 03-23-2020 End: 03-25-2020 Subsequent hospital visit by physician [facility] MRI Comment on above: Osteoarthritis of ri ght acromioclavicular joint Start: 11-02-2019 End: 11-02-2019 Emergency department patient visit Warren Olivas Work Phone: [facility] ED Comment on above: COPD exacerbation (H CC) (Primary Dx) Start: 10-05-2019 End: 10-08-2019 Evaluation and management of inpatient Forest Childs Work Phone: [facility] Comment on above: COPD exacerbation (H CC) (Primary Dx); Acute respiratory failure with hypoxia (HCC) Start: 09-15-2019 End: 09-15-2019 Emergency department patient visit Levy Felix Work Phone: [facility] ED Comment on above: Cough (Primary Dx); Abnormal CXR; Viral URI Start: 08-25-2019 End: 08-29-2019 Evaluation and management of inpatient Jacob Granado Work Phone: [facility] Med Surg Comment on above: COPD exacerbation (H CC) (Primary Dx); Influenza with respiratory manifestation other than pneumonia; COPD with acute exacerbation (HCC) Start: 08-05-2019 End: 08-10-2019 Evaluation and management of inpatient Heenaanam John [facility] Comment on above: COPD exacerbation (H CC) (Primary Dx); Cough; Moderate persistent asthma with acute exacerbation Start: 05-11-2019 End: 05-12-2019 Patient encounter procedure NAJMA KEN [facility] Start: 05-11-2019 End: 05-11-2019 Subsequent hospital visit by physician Najma ALVAREZ [facility] Comment on above: Encounter for screen ing for diabetes mellitus; Screening for hyperlipidemia Procedures Date Procedure Procedure Detail Performing Clinician Start: 07-30-2023 Adult depression scr eening assessment Louie [employer] DO Work Phone: Start: 05-11-2023 Adult depression scr eening assessment Louie [employer] DO Work Phone: Start: 11-22-2020 Radiologic exam ches t single view Heena John MD Start: 11-22-2020 Basic metabolic pane l calcium total Heena John MD Start: 11-22-2020 COVID-19, RAPID Heena John MD Start: 04-18-2020 Ct head/brain w/o co ntrast material NAJMA KEN Start: 04-16-2020 Assay of thyroid stimulating hormone tsh NAJMA KEN Start: 04-16-2020 Blood count complete automated NAJMA KEN Start: 04-16-2020 Comprehensive metabo lic panel NAJMA KEN Start: 04-16-2020 Hemoglobin glycosylated a1c NAJMA KEN Start: 04-16-2020 Assay of thyroid stimulating hormone tsh Najma Ken Work Phone: Start: 04-16-2020 Blood count complete automated Najma Ken Work Phone: Start: 04-16-2020 Comprehensive metabo lic panel Najma Ken Work Phone: Start: 04-16-2020 Hemoglobin glycosylated a1c Najma Ken Work Phone: Start: 03-23-2020 Mri any jt upper ext remity w/o contrast matrl NAJMA KEN Start: 03-23-2020 Mri any jt upper ext remity w/o contrast matrl Enesi O Cora Work Phone: Start: 11-02-2019 Assay of troponin quantitative Warren Beeyenypilar Work Phone: Start: 11-02-2019 Ecg routine ecg w/le ast 12 lds w/i&r Warren Beekobe Work Phone: Start: 11-02-2019 Radiologic exam ches t single view Warren Beeyenypilar Work Phone: Start: 11-02-2019 Assay of lactate Warren Rohityenypilar Work Phone: Start: 11-02-2019 Assay of troponin quantitative Warren Beeyenypilar Work Phone: Start: 11-02-2019 Blood count complete auto&auto difrntl wbc Warren Beeyenypilar Work Phone: Start: 11-02-2019 C-reactive protein Anton s Rohityenypilar Work Phone: Start: 11-02-2019 Comprehensive metabo lic panel Warren [employer] Work Phone: Start: 11-02-2019 Fibrin dgradj produc ts d-dimer quantitative Warren Beekobe Work Phone: Start: 11-02-2019 Lactate dehydrogenase ldh [employer] Work Phone: Start: 10-06-2019 Assay of free thyroxine Ruqiyya Scanlon Work Phone: Start: 10-06-2019 Assay of [...] Blood count complete auto&auto difrntl wbc Fuentes Jiang Work Phone: Start: 08-26-2019 BASIC METABOLIC [...] Phone: Start: 08-08-2019 SURGICAL PATHOLOGY Kuldeep n Amadeo Work Phone: Start: 08-08-2019 Virus centrifuge enh ncd id imfluor stain ea Caden Baldwin Work Phone: Start: 08-08-2019 End: 08-08-2019 [facility] gdnce dx w/cell washg spx [...] 05-11-2019 Assay of thyroid stimulating hormone tsh JULIAD JESUS MANUEL Start: 05-11-[address] gtt 3 specimens SHIVAPRAD JESUS MANUEL Start: 05-11-2019 Lipid panel [employer] D JESUS MANUEL Start: 05-11-2019 Assay of thyroid stimulating hormone tsh Viedeadae[employer]dind K Jesus Manuel Work Phone: Start: 05-11-[address] gtt 3 specimens ViedeapraBaydind K [employer] Work Phone: Start: 05-11-2019 Lipid panel Shivaprasa d K [employer] Work Phone: Plan of Treatment Date Care Activity Detail Author Start: 08-31-2025 COVID-19 Vaccine (1) COVID-19 Vaccin e (1) [employer] Phone: Comment on above: Postponed from 03/05 (Patient Refused) Start: 08-31-2025 Influenza vaccination Flu vacc ine (Season Ended) [employer] Phone: Comment on above: Postponed from 02/20 (Patient Refused) Start: 08-08-2024 Pneumococcal 0-64 ye ars Vaccine (2 of 2) Pneumococcal 0-64 years Vaccine (2 of 2) [employer] Phone: Start: 07-30-2024 Adult BMI Screening [facility] Start: 07-30-2024 [facility] Start: 07-30-2024 Tobacco [facility] Start: 05-11-2024 Adult BMI Screening Adult BMI Screen ing [facility] Start: 05-11-2024 Depression Screening Depression Scre ening [facility] Start: 05-11-2024 Lipid panel Lipid screen [place] Start: 05-11-2024 Lipid screen Lipid screen [place] Start: 05-11-2024 Tobacco Screening Tobacco Screening [facility] Start: 12-22-2023 End: 12-22-2023 Patient encounter procedure 12/22/2023 1:30 PM EDT Office Visit [facility] [address] [place] [address] Celia Calhoun MD [address] [place] [address] [facility] Start: 12-12-2023 Tobacco Counseling Tobacco Counselin g [facility] Start: 09-20-2023 Influenza vaccination Influenza Vacc ine [facility] Comment on above: Postponed from 02/20 (Patient Refused) Start: 08-26-2023 End: 08-26-2023 Patient encounter procedure 08/26/2023 11:45 AM EST Office Visit [facility] [address] [place] [address] Sarah Fernández, DELIVERY CONSULTANT-BUILDING CONSTRUCTION INSPECTOR [address] [place] [address] [facility] Start: 08-12-2023 Adult BMI Follow Up Plan Adult BMI Follow Up Plan [facility] Start: 05-11-2022 Diabetes screen Diabetes screen [place], [place] Start: 10-17-2021 Shingles Vaccine (1 of 2) Shingles Vaccine (1 of 2) [facility] [employer] Phone: Comment on above: Postponed from 03/05 (Patient Refused) Start: 04-16-2021 Hemoglobin A1c measurement A1C test (Diabetic or Prediabetic) [employer] Phone: Start: 04-16-2021 Thyroid stimulating hormone measurement TSH testing [facility] Phone: Start: 12-24-2020 DTaP/Tdap/Td vaccine (1 - Tdap) DTaP/Tdap/Td vaccine (1 - Tdap) [facility] Phone: Comment on above: Postponed from 03/05 (Patient Refused) Start: 10-05-2020 TSH Qn TSH testing [place] Start: 10-05-2020 TSH testing TSH testing [place] Start: 05-11-2020 TSH testing TSH testing [place] Start: 05-10-2020 End: 05-10-2020 Office Visit 05/10/2020 Office Visit Primary Care Najma Ken MD [address] [place] [address] [phone] [facility] Start: 05-05-2020 DTaP/Tdap/Td vaccine (1 - Tdap) DTaP/Tdap/Td vaccine (1 - Tdap) [place] Comment on above: Postponed from 03/05 (Patient Refused) Postponed from 03/05 (Patient Refused) Start: 05-05-2020 Hepatitis C screen Hepatitis C scree [place] Comment on above: Postponed from 03/05 (Patient Refused) Start: 05-05-2020 Hepatitis C screening Hepatitis C sc [place]en [place] Comment on above: Postponed from 03/05 (Patient Refused) Start: 05-05-2020 HIV screen HIV screen [place] Comment on above: Postponed from 03/05 (Patient Refused) Start: 05-05-2020 HIV screening HIV screen [place], [place] Comment on above: Postponed from 03/05 (Patient Refused) Start: 04-18-2020 End: 04-18-2020 Appointment 04/18/2020 Appointment Radiology [facility] CT Scan Start: 02-21-2020 Influenza vaccination [place] Start: 08-04-2019 End: 08-04-2019 Office Visit 08/04/2019 Office Visit Primary Care Najma Ken MD [address] [place] [address] [phone] [facility] Start: 02-20-2019 Influenza vaccination Flu vaccine (# 1) [place], [place] Start: [address] lung screening Low dose CT lung screening [place] Start: 2009 Administration of varicella zoster vaccine Zoster (Shingles) Vaccine (1 of 2) [facility] Start: 2009 Breast cancer screen Breast cancer s creen [place] Start: 2009 Colon cancer screen colonoscopy Colon cancer screen colonoscopy [place] Start: 2009 Screening for malign ant neoplasm of breast Breast cancer screen [place] Start: 2009 Screening for malign ant neoplasm of colon Colon cancer screen colonoscopy [place] Start: 2009 Shingles Vaccine (1 of 2) Shingles Vaccine (1 of 2) [place] Start: 1999 Diabetes screen Diabetes screen [place], [place] Start: 1999 Lipid screen Lipid screen [place], [place] Start: 1978 DTaP,Tdap and Td Vaccines (1 - Tdap) DTaP,Tdap and Td Vaccines (1 - Tdap) [facility] Start: 1965 Pneumococcal 0-64 ye ars Vaccine (1 of 1 - PPSV23) Pneumococcal 0-64 years Vaccine (1 of 1 - PPSV23) [place], [place] Start: 1959 TSH testing TSH testing [place] Acapella Acapella Respira tory Care Routine Daily until discontinued starting 08/06/2019 [place] Comment on above: Daily until disconti nued starting 08/06/2019 [place] Comment on above: Release Upon Orderin g for 1 Occurrences starting 10/06/2019 ONE TIME for 1 Occur rences starting 08/08/2019 Basic Metabolic Prof Basic Metab olic Prof Lab Routine Daily until discontinued starting 08/06/2019, 5 [facility] above: Daily until disconti nued starting 08/06/2019, 5 completed Body fluid cell count [facility] Comment on above: Release Upon Orderin g for 1 Occurrences starting 10/06/2019 ONE TIME for 1 Occur rences starting 08/08/2019 CBC CBC Lab Routine Daily until discontinued starting 08/06/2019, 5 completed [facility] Comment on above: Daily until disconti nued starting 08/06/2019, 5 completed End: 09-01-2019 CBC auto differential CBC auto differential Lab Routine Daily for 5 Occurrences starting 08/28/2019 until 09/01/2019, 2 completed [facility] on above: Daily for 5 Occurren kisha starting 08/28/2019 until 09/01/2019, 2 completed End: 09-01-2019 Comprehensive Metabolic Panel w/ Reflex to MG Comprehensive Metabolic Panel w/ Reflex to MG Lab Routine Daily for 5 Occurrences starting 08/28/2019 until 09/01/2019, 2 completed [facility] on above: Daily for 5 Occurren kisha starting 08/28/2019 until 09/01/2019, 2 completed Culture with Smear, Acid Fast Bacillius [facility] Comment on above: Release Upon Orderin g for 1 Occurrences starting 10/06/2019 ONE TIME for 1 Occur rences starting 08/08/2019 [facility]: Release Upon Orderin g for 1 Occurrences starting 10/06/2019 ONE TIME for 1 Occur rences starting 08/08/2019 End: 10-06-2019 Culture, Fungus Culture, Fungus Microbiology Routine Once for 1 Occurrences starting 10/06/2019 until 10/06/2019 [facility] on above: Once for 1 Occurrenc es starting 10/06/2019 until 10/06/2019 [facility] Release Upon Orderin g for 1 Occurrences starting 10/06/2019 End: 10-06-2019 Culture, Legionella Culture, Legionella Microbiology Routine Once for 1 Occurrences starting 10/06/2019 until 10/06/2019 [facility] on above: Once for 1 Occurrenc es starting 10/06/2019 until 10/06/2019 Culture, Respiratory [place] Comment on above: Release Upon Orderin g for 1 Occurrences starting 10/06/2019 ONE TIME for 1 Occur rences starting 08/08/2019 Culture, Virus, Respiratory Culture, Virus, Respiratory Microbiology Routine Release Upon Ordering for 1 Occurrences starting 10/06/2019 [place] Comment on above: Release Upon Orderin g for 1 Occurrences starting 10/06/2019 Cytology, Non-Floorworker Lasting Cytology, Non- Floorworker Lasting Lab Routine ONE TIME for 1 Occurrences starting 08/08/2019 [place] Comment [place] above: ONE TIME for 1 Occur rences starting 08/08/2019 EKG 12 Lead EKG 12 Lead ECG STAT 11/02/2019 10:57 AM EDT [place] Fungal stain [place] Comment [place] above: Release Upon Orderin g for 1 Occurrences starting 10/06/2019 ONE TIME for 1 Occur rences starting 08/08/2019 End: 08-08-2019 Fungus Culture Fungus Culture Microbiology Routine Once for 1 Occurrences starting 08/08/2019 until 08/08/2019 [place] Comment on above: Once for 1 Occurrenc es starting 08/08/2019 until 08/08/2019 HHN Treatment [place] Comment on above: As Needed until [...] for 1 Occurrences starting 10/08/2019 until 10/08/2019 [place] Comment on above: One Time for 1 Occur rences starting 10/08/2019 until 10/08/2019 End: 08-09-2019 Home O2 eval (desaturation screen) Home O2 eval (desaturation screen) Respiratory Care Routine One Time for 1 Occurrences starting 08/09/2019 until 08/09/2019 [place] Comment on above: One Time for 1 Occur rences starting 08/09/2019 until 08/09/2019 Initiate Oxygen Ther apy Protocol [place] Comment on above: Daily until disconti nued starting 08/25/2019 Daily until disconti nued starting 08/27/2019 Daily until disconti nued starting 11/02/2019 MetaNeb MetaNeb Respirat ory Care Routine 0600, 1000, 1400, 1800, 2200 until discontinued starting 08/09/2019 [place] Comment on above: 0600, 1000, 1400, 18 00, 2200 until discontinued starting 08/09/2019 Microscopic observat ion Gram stain Nom (Unsp spec) [place] Comment on above: Release Upon Orderin g for 1 Occurrences starting 10/06/2019 ONE TIME for 1 Occur rences starting 08/08/2019 End: 08-25-2019 Pulse Oximetry Spot Check Pulse Oximetry Spot Check Respiratory Care Routine One Time for 1 Occurrences starting 08/25/2019 until 08/25/2019 [place] Comment on above: One Time for 1 Occur rences starting 08/25/2019 until 08/25/2019 End: 08-27-2019 Pulse Oximetry Spot Check Pulse Oximetry Spot Check Respiratory Care Routine One Time for 1 Occurrences starting 08/27/2019 until 08/27/2019 [place] Comment on above: One Time for 1 Occur rences starting 08/27/2019 until 08/27/2019 Pulse oximetry, overnight Pulse oximetry, overnight Respiratory Care Routine Every 4hr until discontinued starting 08/09/2019 [place] Comment on above: Every 4hr until disc ontinued starting 08/09/2019 Respiratory Care Evaluation and Treat Respiratory Care Evaluation and Treat Respiratory Care Routine Daily until discontinued starting 10/05/2019 [place] Comment on above: Daily until disconti nued starting 10/05/2019 Respiratory care evaluation only [place] Comment on above: Daily until disconti nued starting 08/26/2019 Daily until disconti nued starting 11/23/2020 Immunizations Immunization Date Immunization Notes Care Provider Catherine howard 08-08-2019 pneumococcal vaccine , unspecified formulation [place] 08-08-2019 pneumococcal polysaccharide vaccine, 23 valent [place], [place] NEGATED: Highlighted row has not occurred!08-10-2019 influenza, injectable, quadrivalent, preservative [place] NEGATED: Highlighted row has not occurred!08-09-2019 influenza, injectable, quadrivalent, preservative free [place] NEGATED: Highlighted row has not occurred!08-08-2019 influenza, injectable, quadrivalent, preservative free [place] Comment on above: Deferred: - Patient refused flu vaccine. Would not like the vaccine at all. Payers Date Payer Category Payer Unknown BCBS BC[place] - [place] P PO xxxxxxxxxxxx 2018-Present [address] [place] [address] xxxxxxxxxxxx [id number] 2016 Unknown [id number] 1959 Unknown [id number] .[id number] 1959 Unknown [id number] 1959 Unknown [id number] 2.16.840.1.871059.3.579.2.175 1959 Unknown [id number] 2.16.840.1.203913.3.579.2.175 1959 Unknown [id number] 2.16.840.1.009214.3.579.2.176 1959 Unknown [id number] 2.16.840.1.746781.3.579.2.176 1959 Unknown [id number] 2.16.840.1.903544.3.579.2.176 1959 Unknown [id number] 2.16.840.1.247155.3.579.2.593 1959 Unknown [id number] 2.16.840.1.246460.3.579.2.593 1959 Unknown [id number] 2.16.840.1.324938.3.579.2.593 1959 Unknown [id number] 2.16.840.1.798327.3.579.2.593 1959 Unknown [id number] 2.16.840.1.426515.3.579.2.593 1959 Unknown [id number] 2.16.840.1.324954.3.579.2.593 1959 Unknown [id number] 2.16.840.1.499163.3.579.2.593 1959 Unknown [id number] 2.16.840.1.191472.3.579.2.128 6 1959 Unknown [id number] 2.16.840.1.998222.3.579.2.196 1959 Unknown [id number] 2.16.840.1.010036.3.579.2.196 1959 Unknown [id number] 2.16.840.1.500116.3.579.2.196 Social History Date Type Detail Facility Start: 08-25-2019 End: 11-22-2020 Tobacco smoking status NHIS [place] Start: 08-25-2019 End: 08-02-2020 Cigarettes smoked current (pack per day) - Reported [facility] Start: 08-25-2019 End: 07-30-2023 Alcohol intake Current drinker of alcohol (finding) [place] Start: 08-08-2019 Tobacco Comment quit Jul 2019 [place] Start: 02-01-2019 Alcohol Comment OCCASIONALLY [facility] [place], [place] Start: 1960 Sex Assigned At Not on file [place] Start: 02-20-2020 End: 04-06-2022 Tobacco use and exposure Never used [employer] [facility] Start: 05-05-2019 End: 04-06-2022 Tobacco smoking status NHIS Current every day smoker [facility] Exposure to SARS-CoV -2 (event) Unable to assess [employer] [facility] End: 07-23-2019 History of tobacco use Current smoker [employer] Exposure to SARS-CoV -2 (event) Not sure [employer] History of tobacco use Cigarette Smoker [facility] [employer] [facility] Start: 08-02-2020 End: 05-11-2023 Tobacco use panel [facility] Adolescent depressio n screening assessment 0 [facility] Start: 02-25-2023 Alcohol Comment Occasionally [facility] Goals Date Patient Goal Desired Activity [...] note might be different from the original. Cheesemaker Helper left voicemail for patient in regards to her appointment with tomorrow (08/26/2023). SK ordered labs at last visit, need to confirm with patient on if labs were completed or not. If not need to reschedule appointment. documented in this encounter [facility] 08-25-2023 Telephone encount er Note Cheesemaker Helper left voicemail for patient in regards to her appointment with SK tomorrow (08/26/2023). SK ordered labs at last visit, need to confirm with patient on if labs were completed or not. If not need to reschedule appointment. [facility] 07-30-2023 History of Presen t illness Narrative Images from the original note were not included. Subjective Patient ID: Cameron Us is a 63 y.o. female. Cameron presents for low back pain mostly on the right side. Pain radiates up back to neck area. She helped lift a safe at work at [employer] and felt sudden, intense pain that sent her to her knees. It was a [employer] [facility] case. This was when she was living in [place] in the mid to late . She [...] would also like a referral to an health and human performance professor for a second opinion. She is taking her supplement but still feels tired. They had a friend who had normal labs but the health and human performance professor did more labs and changed medications and [...] hypothyroidism - [facility] - [place], [place]; Future Refer to endocrinology for a second opinion Chronic obstructive pulmonary disease, unspecified COPD type ([facility]) Reviewed pulmonology consult with patient and . It was addressed at appointment and was doing ok. She needs to quit smoking. They also ordered labs but she hasn't gotten them done and didn't know she needed them. Encouraged to get labs. Obstructive sleep apnea She is not following treatment regimen. Recommended to follow recommendations. documented in this encounter [employer] 07-14-2023 Miscellaneous Notes Formattin g of this note might be different from the original. Rx sent in. Patient due recheck appointment LM on VM documented in this encounter [facility] 07-14-2023 Telephone encount er Note Rx sent in. Patient due recheck appointment [facility] 07-14-2023 Telephone encount er Note LM on VM [facility] Evaluation note Diagnosis COPD exacerbation (HCC)- Primary Obstructive chronic bronchitis with exacerbation documented in this encounter [employer] Phone: evaluation note* Diagnosis Chronic rhinitis documented in this encounter [facility]* Diagnosis Acute exacerbation of chronic obstructive pulmonary disease (COPD) ([facility]) Obstructive chronic bronchitis with exacerbation documented in this encounter [facility]* Diagnosis Chronic obstructive pulmonary disease, unspecified COPD type ([facility])- Primary Right-sided low back pain without sciatica, unspecified chronicity Postoperative hypothyroidism Postsurgical hypothyroidism Obstructive sleep apnea Obstructive sleep apnea (adult) (pediatric) [facility]* Attachments The following attachments cannot be sent through Care Everywhere. * COPD Exacerbation Plan (Cypriot) documented in this encounterNewsblur Phone: InstructionsNot on filedocumented in this encounter [facility] SystemInstructionsNot on filedocumented in this encounter [facility] SystemInstructionsNot on filedocumented in this encounter [facility] aisle411InstructionsNot on filedocumented in this encounter [facility] (narrative)* Consultation (Routine) - Pending Review Specialty Diagnoses / Procedures Referred By Emily t Referred To Contact Endocrinology Diagnoses Postoperative hypothyroidism Louie Paul DO [address], [place] [address] Celia Calhoun MD [address] [address] Referral ID Status Reason Start Date Expiration Date Visits Requested Visits Authorized [id number] Pending Review Specialty Services Required 07/30/2023 07/29/2024 1 1 * Consultation (Routine) - Pending Review Specialty Diagnoses / Procedures Referred By Emily t Referred To Contact Pain Medicine Diagnoses Right-sided low back pain without sciatica, unspecified chronicity Louie Paul, DO [address], [facility] [address] [address] Referral ID Status Reason Start Date Expiration Date V isits Requested Visits Authorized [id number] Pending Review 07/30/2023 07/29/2024 1 1 [facility] History of Present Illness * Erin Ansari RN - 08/29/2019 7:38 PM EDT IV pulled by lazaro RN. Patient dc papers given. Patient dc'd with all belongings and scripts. * Nati Neves OT - 08/29/2019 12:48 PM EDT [facility] OCCUPATIONAL THERAPY MISSED TREATMENT NOTE INPATIENT [...] ABGs: No results for input(s): PHART, PO2ART, MPG2GQF, GUA3ALX, BEART, U3GXDOAJ, IEJ2AMC in the last 72 hours. PT/INR: No results found for: PTINR ASSESSMENT / PLAN: Copd exac - steroid, BD - to po meds Influenza - tamiflu Cough suppressants Okay for home from pulmonary standpoint Plan of care discussed with Dr Childs . REASON FOR VISIT: copd, influenza I examined the patient myself The assessment and Plan in the note per my discussion with MANUAL LATHE MACHINIST. . * Dalila Dash RN - 08/29/2019 [...] ABGs: No results for input(s): PHART, PO2ART, DKX9ECK, RFT3ZAD, BEART, O5KDJEFP, KVO8AXD in the last 72 hours. PT/INR: No results found for: PTINR ASSESSMENT / PLAN: Copd exac - steroid, BD - to po meds Influenza - tamiflu Cough suppressants . * Dre Rucker, PT - 08/28/2019 12:11 PM EDT Physical Therapy Facility/Department: [facility] Initial Assessment NAME: [...] Ambulation Assistance: Independent Transfer Assistance: Independent Active Head Athletic Trainer/Strength Coach: Yes Mode of Transportation: Car Occupation: Retired [...] 08/28/2019 11:43 AM Name: Cameron Us Acct: [id number] Room: Day: 1 Admit Date: 08/25/2019 3:06 [...] file Gets together: Not on file Attends hoahaoism service: Not on file Active member of [...] 0.85 (L) 1.0 - 4.8 k/uL [employer] [place] # 0.99 0.1 - 1.3 k/uL Absolute [...] ABGs: No results for input(s): PHART, PO2ART, BAG4BMN, YDT1CTL, BEART, D3SJZFNG, IGE8TPL in the last 72 hours. PT/INR: No results found for: PTINR ASSESSMENT / PLAN: Copd exac - steroid, BD Influenza - tamiflu Cough suppressants . * Fuentes Jiang MD - 08/27/2019 11:11 AM EST Progress Note 08/27/2019 11:11 AM Name: Cameron Us Acct: [id number] Room: Day: 1 Admit Date: 08/25/2019 3:06 [...] file Gets together: Not on file Attends hoahaoism service: Not on file Active member of [...] ABGs: No results for input(s): PHART, PO2ART, JUE8EKV, OJA7LGS, BEART, C1TPUAZW, SHI9DSL in the last 72 hours. PT/INR: No [...] PM EST Patient arrived to floor, room 6 * Amanda Ellison RPH - 08/25/2019 5:34 PM EST Medication History completed: New medications: Spiriva respimat Medications discontinued: prednisone, nicotine patches Changes to dosing: none Stated allergies: NKDA Other pertinent information: Medications confirmed with [facility]. Thank you, Amanda Ellison, PharmD, [facility] [phone] documented in this encounter* Joseph Butterfield RCP [...] 10/07/2019 4:04 PM Name: Cameron Us Acct: [id number] Room: [facility] Day: 1 Admit Date: 10/05/2019 2:31 PM [...] file Gets together: Not on file Attends hoahaoism service: Not on file Active member of [...] ABGs: No results for input(s): PHART, PO2ART, VTN2DLQ, NOG8MTD, BEART, X1EQKPTQ, EWS2YTV in the last 72 hours. PT/INR: No [...] in the note per my discussion with MANUAL LATHE MACHINIST. . * Wendy Parra, RN - 10/07/2019 12:23 AM EDT Pt. Stated my grandson came to the E.R., Dr. Told him he probubly has cov. 19, he was not tested. Pt. Continued to say they gave him a paper on what to look for. Cheesemaker Helper updated Dr. Childs. No orders given for [...] up appointments. The pt refused for the verse writer to take her down stairs and [...] PLT [phone] BMP: Recent Labs 08/08/1961208/09/19 0632 08/10/19 0606 GLUCOSE 154* 140* 162* NA 140 139 140 K 5.1 4.5 4.1 BUN 32* 29* 29* CREATININE 0.75 0.86 0.75 CALCIUM 8.0* 7.6* 7.7* ABGs: No results for input(s): PHART, PO2ART, TAC4VHE, YHZ2CLS, BEART, A2EPTUYU, FNH9WRU in the last 72 hours. PT/INR: No [...] Home [] Home with Home Health [] Intermediate Facility [] [facility] Patient is admitted as inpatient status because of co-morbidities listed above, severity of signs and symptoms as outlined, requirement for current medical therapies and most importantly because of direct risk to patient if care not provided in a hospital setting. Cadne Baldwin MD Rounding Hospitalist * Jacob Luis, [facility] - 08/09/2019 3:50 PM EST Home [...] Diagnostic studies reviewed Data ReviewCBC: Recent Labs 08/07/199 08/08/19 0613 08/09/19 0632 WBC 20.0* 18.5* 15.9* RBC 4.59 4.55 4.34 HGB 14.1 14.0 13.5 HCT 42.8 42.1 40.1 PLT 367 355 334 BMP: Recent Labs 08/07/1941808/08/19 0613 08/09/19 0632 GLUCOSE 172* 154* 140* NA 140 140 139 K 5.1 5.1 4.5 BUN 26* 32* 29* CREATININE 0.93* 0.75 0.86 CALCIUM 8.1* 8.0* 7.6* ABGs: No results for input(s): PHART, PO2ART, YWA6DKB, RAT4NRF, BEART, L8TVHXLC, AUU6SFT in the last 72 hours. PT/INR: No [...] in the note per my discussion with MANUAL LATHE MACHINIST. . * Caden Baldwin MD - 08/08/2019 [...] chloride flush, acetaminophen CBC: Recent Labs 08/06/193 08/07/1941808/08/19 0613 WBC 7.9 20.0* 18.5* HGB 14.5 [...] Home [] Home with Home Health [] Intermediate Facility [] [facility] Patient [...] Cameron Us is a 59yowf admitted to [facility] for evaluation of COPD exacerbation. Ms. Us [...] NPO status for OR tomorrow. * Forest Cihlds MD - 08/07/2019 4:14 PM EST PULMONARY [...] ABGs: No results for input(s): PHART, PO2ART, JGO9FJN, IRL8PBZ, BEART, U7IPBCPU, ATX1KKV in the last 72 hours. PT/INR: No [...] Ana Strickland MD [facility] [address] [facility] [address] [phone] * Laura Mathis RN - 08/07/2019 3:15 PM EST Pt. Arrived to room 2045. Vitals obtained. Assessment Completed. Pt. Denies any needs at this time.Will Continue to monitor. * Reina Smith RN - 08/07/2019 3:00 PM EST I agree with the charting of Shellie HALL * Analia James RP - 08/06/2019 9:25 PM EST Spoke with Dr. Childs and informed him that Codeine and Tylenol #3 are nonformulary and unavailable at [facility] suggested Phenergan with codeine. He is very insistent that we try to obtain some, he used it at [facility] last month. Per [facility], [facility] appears to have Tylenol #3 still in stock. Called and spoke with pharmacist at [facility], she will call her manager of training or livestock buyer and find out if she can share with us, will call us back this evening. Awaiting call back. Analia James,PharmD, 08/06/2019, 9:28 PM * Tere Tafoya RN - 08/06/2019 8:45 PM EST Return call received from Dr Childs. He doesn't want Phenergan with codeine due to patient being on Hycodan. Wants to see if pharmacy can get in Codeine tablets. Cheesemaker Helper talked with pharmacy and was informed there [...] Telemetry batteries changed with shift report * Jorge, Linnette Stokes RN - 08/06/2019 5:[address] [...] patients vitals. New orders for 1000 bolus. Linnette Ledezma RN - 08/06/2019 9:06 AM EST New orders for hycodan per Dr. Childs ON * Linnette Patel RN - 08/06/2019 9:00 [...] NKDA Other pertinent information: Medications confirmed with [facility]. Thank you, Amanda Ellison, MaximilianD, [facility] [phone] * Jacob Luis, [facility] - 08/05/2019 2:11 PM EST Breath [...] FoundDocuments on File Type Date Recorded Patient Branding Machine Operator Expl anation Advance Directives and Living Will Power of Tool Carrier Latest Code Status on File Code Status [...] Documents on File Type Date Recorded Patient Branding Machine Operator Expl anation ACP-Advance Directive ACP-Power of Tool Carrier Latest Code Status on File Code Status Date Activated Date Inactivated Comments Full Code 10/05/2019 2:43 PM 10/08/2019 2:49 PM Full Code 08/27/2019 11:11 AM 08/29/2019 9:40 PM Full Code 08/25/2019 6:05 PM 08/27/2019 11:11 AM Full Code 08/25/2019 5:50 PM 08/25/2019 6:05 PM Full Code 08/05/2019 4:58 PM 08/10/2019 8:24 PM Documents on File Type Date Recorded Patient Branding Machine Operator Expl anation ACP-Advance Directive ACP-Power of Tool Carrier Latest Code Status on File Code Status Date Activated Date Inactivated Comments Full Code 10/05/2019 2:43 PM 10/08/2019 2:49 PM Full Code 08/27/2019 11:11 AM 08/29/2019 9:40 PM Documents on File Type Date Recorded Patient Branding Machine Operator Expl anation Advance Directives and Living Will Power of Tool Carrier Latest Code Status on File Code Status [...] be sent through Care Everywhere. * Cough (Cypriot) * URI (Upper Respiratory Infection): Viral (Cypriot) * Coronavirus Disease COVID-19: Isolation (Cypriot) documented in this encounter* Instructions* Misty Sharp [...] [facility] . I understand and acknowledge receipt of the instructions indicated above. * Attachments The following attachments cannot be sent through Care Everywhere. * COPD Exacerbation Plan (Cypriot) * COPD (Cypriot) * Smoking Cessation: Health Benefits: General Info (Cypriot) documented in this encounter* Instructions* Warren Olivas [...] through Care Everywhere. * COPD: General Info (Cypriot) documented in this encounter Reason for Referral Status Reason Specialty Diagnoses / Procedures Re ferred By Contact Referred To Contact Closed Radiology Diagnoses Osteoarthritis of right acromioclavicular joint Procedures MRI SHOULDER RIGHT WO CONTRAST Mao Shepherd MD [address] [phone] Summary Purpose Family History No Family History [...] Influenza A Influenza A Caden Baldwin MD [address] [place] [phone] [place] Reason Comments Cough Status Reason Specialty Diagnoses / Procedures Re ferred By Contact Referred To Contact Closed Radiology Diagnoses Osteoarthritis of right acromioclavicular joint Procedures MRI SHOULDER RIGHT WO CONTRAST Mao Shepherd MD [address] [phone] Status Reason Specialty Diagnoses / Procedures Referre d By Contact Referred To Contact Diagnoses chronic obstructive pulmonary disease Forest Childs MD [address] [place] [address] 3, [address] [place] [address] [employer] Reason Comments Cough Shortness of Breath Status Reason Specialty Diagnoses / Procedures Referre d By Contact Referred To Contact Diagnoses COPD exacerbation (HCC) Caden Baldwin MD [address] [place] [phone] [place] Reason Comments Cough Shortness of Breath Chills Emesis Reason Comments Shortness of Breath Cough Fatigue Headache Reason Comments Med Refill Reason Comments discuss pain. back down to h ip and up to the neck. Would like also a referral to health and human performance professor. Chief complaint tired all the time INFORMATION SOURCE (unrecogn ized section and content) DATE CREATED AUTHOR 04/17/2020 [facility] DATE CREATED AUTHOR AUTHOR'S ORGANIZ ATION 11/23/2020 [facility] DATE CREATED AUTHOR AUTHOR'S ORGANIZ ATION 09/21/2021 [facility] DATE CREATED AUTHOR AUTHOR'S ORGANIZ ATION 12/20/2021 [facility] DATE CREATED AUTHOR AUTHOR'S ORGANIZ ATION 08/03/2023 [facility] DATE CREATED AUTHOR AUTHOR'S ORGANIZ ATION 09/08/2023 [facility] Ordered Prescriptions (unrec ognized section and [...] Care Teams (unrecognized sec tion and content) Furniture Detailer Relationship Specialty Start Date End Date Louie Paul DO [address] [facility], [place] [address] PCP - General Family Medicine 09/27/21 Furniture Detailer Relationship Specialty Start Date End Date Louie Paul DO [address], [place] [address] PCP - General Family Medicine 09/27/21 Furniture Detailer Relationship Specialty Start Date End Date Louie Paul DO [address], [place] [address] PCP - [facility] 09/27/21 Furniture Detailer Relationship Specialty Start Date End Date Louie Paul DO [address], [place] [address] PCP - [facility] 09/27/21 FOR RECORDS PERTAINING TO PATIENTS WHO [...] BE BASED ON THE PRIMARY CLINICAL RECORDS. [employer] [facility]. provides no warranty or guarantee of the accuracy or completeness of information in this document.
[2023-10-26 07:13] VITALS: BP 132/89; PULSE 100; TEMP 36.4; O2SAT 96
[2023-10-26] MEDS: 0.9 % SODIUM CHLORIDE 500 ML IV (07:25)
[2023-10-26] MEDS: TRIAMCINOLONE ACETONIDE 40 MG/ML VIAL 80 MG INJ (08:18)
[2023-10-26] MEDS: BUPIVACAINE HCL 0.25% PF 25 MG/10 ML VIAL 4 ML INJ (08:18)
[2023-10-26] MEDS: LIDOCAINE HCL 2% 400 MG/20 ML MDV 12 ML INJ (08:18)
[2023-10-26 08:21] VITALS: BP 127/99; PULSE 96; TEMP 37; O2SAT 94
--- NOTE | 2023-10-26 08:21 | P.ON_ITS ---
Date of procedure: 10/26/23 Pre-op diagnosis: Lumbar spondylosis Post-op diagnosis: same as pre-op Procedure: Procedure: Bilateral L4-5, L5-S1 radiofrequency ablation Medications: Bupivacaine 0.25% 6cc, lidocaine 2% 5cc, kenalog 80mg The patient was seen and examined in the preoperative holding area.? The site was marked.? Written informed consent was obtained and placed on the chart.? The patient was brought to the medical procedure unit and placed in the prone position.? A timeout was completed verifying correct patient, procedure, positioning, and special requirements.? The skin overlying the target points, the designated medial branch, were prepped and draped in the usual sterile fashion.? The target point was achieved with a 20-gauge 15 cm with a 10 mm curved active tip radiofrequency cannula under direct fluoroscopic visualization.? The needle was inserted at level L4 on the right side. Needle tip position was confirmed with lateral fluoroscopic position.? Motor stimulation was carried out at 2 Hz up to 5 volts with the absence of extremity activity.? This was repeated at level L5, S1 on right side.?? Sensory stimulation was carried out.? Concordant pain was realized at the above- mentioned sites.? Then radiofrequency lesioning was carried out times 90 seconds at 80 degrees times 2 lesions at each level.? The radiofrequency probe was removed prior to cannula removal.? The above-mentioned injectate was placed in 1 mL increments.? The needle was removed. The same procedure, with the same steps, was then completed on the left side at the same levels. Insertion sites were covered.? The patient was taken to the postoperative recovery area and monitored for an appropriate length of time before being found suitable for discharge in the company of a responsible adult. Anesthesia: MAC Surgeon: Belle Monet Pathology: none sent Condition: stable Disposition: no change
[2023-10-26 08:23] VITALS: BP 138/72; PULSE 96; TEMP 37; O2SAT 97
== END 2023-10-26 08:42 | disposition home or self-care (01) ==
PROVIDERS: PCP Family Medicine; Visit Provider Anesthesiology
PROC: (CPT 1992; principal; 2023-10-26 08:00)
DX: M47.816 Spondylosis without myelopathy or radiculopathy, lumbar region (principal)
CPT/HCPCS: 64635; 64636; J2704

== ENCOUNTER 2023-11-26 11:15 | Outpatient (OUT) | payer BC, SELFPAY ==
--- NOTE | 2023-11-26 11:34 | P.CN_ITS ---
Consult Note: HPI Data of Consult Patient: known to practice within the last 3 years Consult date: 08/03/23 Requesting Physician: Giulia Carlin NP Primary Care Provider: HE PAUL Consult Narrative Reason for consult: low back pain Narrative: 63yof who presents for evaluation. worsening axial low back pain for several years. imaging reviewed, which shows moderate facet arthropathy in lower lumbar spine. continues in >6 weeks of provider directed home exercise program, with no benefit. uses tylenol as needed, without benefit. cannot take nsaids due to eliquis. denies adverse med side effects. Patient recently underwent bilateral L4-5 L5-S1 facet medial branch RFA with less than 50% in pain per patient. Pain in right low back 3/10 burning increasing to 8/10 with standing walking, transitioning, bending, and activity. Pain increased with forward flexion and rest. Patient does report intermittent cramping of right leg and thigh. cc:: CC: Giulia Carlin NP Review of Systems ROS Status of ROS 10 or more systems reviewed and unremark able except as noted in history and below Musculoskeletal Reports: back pain PFSH PFSH Medical History S/P neck surgery, follow-up exam ?Z09 - Encounter for follow-up examination after completed treatment for conditions other than malignant neoplasm (ICD-10) Upper back pain ?M54.9 - Dorsalgia, unspecified (ICD-10) Neck pain ?M54.2 - Cervicalgia (ICD-10) Low back pain ?M54.50 - Low back pain, unspecified (ICD-10) Hypothyroidism ?E03.9 - Hypothyroidism, unspecified (ICD-10) Pulmonary embolism ?I26.99 - Other pulmonary embolism without acute cor pulmonale (ICD-10) COPD (chronic obstructive pulmonary disease) ?J44.9 - Chronic obstructive pulmonary disease, unspecified (ICD-10) Smoker ?F17.200 - Nicotine dependence, unspecified, uncomplicated (ICD-10) Chronic cough ?R05.3 - Chronic cough (ICD-10) Atrial fibrillation ?I48.91 - Unspecified atrial fibrillation (ICD-10) Surgical History H/O thumb surgery ?Z98.890 - Other specified postprocedural states (ICD-10) Hx of appendectomy ?Z90.49 - Acquired absence of other specified parts of digestive tract (ICD- 10) H/O: hysterectomy ?Z90.710 - Acquired absence of both cervix and uterus (ICD-10) H/O carpal tunnel repair ?Z98.890 - Other specified postprocedural states (ICD-10) H/O thyroidectomy ?E89.0 - Postprocedural hypothyroidism (ICD-10) Meds Home Medications and Allergies Home Medications ?Medication ?Instructions ?Recorded ?Confirmed ?Type albuterol sulfate 0.63 mg/3 mL 0.63 mg inhalation TID PRN 08/03/23 10/26/23 History solution for nebulization shortness of breath or wheezing apixaban 5 mg tablet (Eliquis) 5 mg PO BID 08/03/23 10/26/23 History budesonide 160 mcg-glycopyr 9 2 inh inhalation BID 08/03/23 10/26/23 History mcg-formot 4.8 mcg/actuation HFA inhaler (CardioKinetix) diltiazem HCl 120 mg capsule,24 120 mg PO DAILY 08/03/23 10/26/23 History hr,extended release duloxetine 20 mg capsule,delayed 20 mg PO DAILY 08/03/23 10/26/23 History release levothyroxine 125 mcg capsule 125 mcg PO DAILY 08/03/23 10/26/23 History methocarbamol 750 mg tablet 750 mg PO Q6H PRN pain #20 tabs 08/29/23 10/26/23 Rx Allergies Allergy/AdvReac Type Severity Reaction Status Date / Time No Known Drug Allergies Allergy Verified 10/26/23 07:26 Exam Constitutional Documenting provider has reviewed patient's vital signs: yes Common normals: no apparent distress, oriented x3, healthy appearing, alert and well nourished General appearance: cooperative HENAL Common normals: normocephalic, hearing grossly normal bilaterally and moist oral mucous membranes Head and scalp: normocephalic Eye Common normals: PERRL Pupil: PERRL Neck & C-Spine Common normals: full ROM General: normal visual inspection Chest Common normals: inspection of chest normal Respiratory Common normals: normal respiratory effort, no retractions and no use of accessory muscles Back & Pelvis Lumbar spine/lower back: normal to inspection, lumbar ROM normal and straight leg raise negative bilaterally Other: mildly positive facet loading right positive aime(patricks), gaenslens, thigh thrust, compression test no radiculopathy on exam strength 5/5 in BLE Neuro Common normals: oriented x3, CN's II-XII intact bilaterally, moves all extremities, no focal motor deficits, no sensory deficits noted and deep tendon reflexes 2+ bilaterally Sensorium/orientation: alert Motor exam: strength 5/5 throughout and no movement abnormalities noted Psych Common normals: mental status grossly normal, thought process normal, cooperative, affect normal, speech normal and activity/motor behavior normal Speech: normal speech Thought process: normal thought process Results Additional Findings Additional findings: If on a controlled substance or opioids, I have checked an [place]AR[place] report on this patient and there are no aberrancies noted in the prescribing history.??If on a controlled substance or opioid a drug screen was completed and reviewed within the last year, and if there has not been a drug screen completed we ordered one today to monitor higher risk, state monitored pain medication use. As part of providing excellent, safe, comprehensive care, the following was completed at our patient's visit: 1. A medication reconciliation and review to ensure accurate knowledge of current/active medications, including asking our patients to inform us about any [id number] medications or herbal remedies/nutritional supplements/alternative remedies. 2. A review to specifically ensure our patients have had annual screening for screening for depression, screening for tobacco use, and screening for unhealthy alcohol use. For concerning screenings had a discussion with the patient, provided patient education, and recommended follow-up with primary care provider when appropriate. If patient noted with a risk of falling, they received education on strength, gait, and balance training to prevent future risk of falling. Assessment and Plan Assessment and Plan (1) Sacroiliitis: (2) Lumbar spondylosis: (3) Lumbar stenosis with neurogenic claudication: (4) Myofascial pain: Plan right SIJ injection under fluoroscopy continue current medications, tolerating well without side effects f/u after SIJ injection
== END 2023-11-26 11:16 | disposition home or self-care (01) ==
PROVIDERS: PCP Family Medicine; Visit Provider Nurse Practitioner
DX: M46.1 Sacroiliitis, not elsewhere classified (principal); M47.816 Spondylosis without myelopathy or radiculopathy, lumbar region; M48.062 Spinal stenosis, lumbar region with neurogenic claudication; M79.18 Myalgia, other site
CPT/HCPCS: G0463

== ENCOUNTER 2023-12-07 06:59 | Day surgery (SDC) | payer BC, SELFPAY ==
--- OUTSIDE RECORDS SUMMARY | 2023-12-07 07:03 | XMS_ITS | CCD ---
Author Organization [facility] ion 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 Name Role Phone Najma Ken Primary Care Provider Caden Baldwin Primary Care Provider Caden Baldwin Primary Care Provider [phone] NAJMA KEN Referring UnavailNAJMA Hanks Primary Care Unavailabl e NAJMA KEN Referring Unavailabl e CADEN BALDWIN Primary Care Unavailabl e Cdaen Baldwin Primary Care Provider [phone] Caden Baldwin MD Primary Care Provider NAJMA KEN Referring Unavailabl e CADEN BALDWIN Primary Care Unavailabl e CORA, KAIDENESI O Referring Unavailable CADEN BALDWIN Primary Care [...] Consulting Unavailable MISC, DR IBRAHIM Admitting Unavailable BEVERLY, DR LOUIE Hawkins Primary Care Unavailable MISC, DR IBRAHIM Attending Unavailable MISC, DR IBRAHIM Consulting Unavailable ZIEBMICHELLE, DR BARRON Strauss Consulting Unavailable TIMMIS, DR [...] Unavailable Louie Paul DO Primary Care Provider Tierney CARDENAS, Belle Streeter Attending Unavailable Gikathleenitis , Andgloria Streeter Attending Unavailable Giania CARDENAS, Andgloria Streeter Attending Unavailable Giedsanaz CARDENAS, Andgloria Streeter Attending Unavailable RYANNE MARTINEZ Attending Unavailable LOUIE PAUL Referring Unavailable LOUIE PAUL Primary Care Unavailable LOUIE PAUL Attending Unavailable LOUIE PAUL Referring Unavailable BEVERLY, LOUIE Hawkins Primary Care Unavailable Allergies Allergy Classification Reported Allergen(s) Allergy Type Date of Onset Reaction(s) Facility Calcium Channel Blockers (1 source) dilTIAZem Drug Allergy 10-12-2019 Itching, Swelling, Rash [facility] (3 sources) dilTIAZem Drug Allergy 10-12-2019 Itching, Swelling, Rash [facility], [place] Medications Current Medications Medication Drug Class(es) Dates [...] solution Indications: Chronic respiratory failure with hypoxia ([facility]) Inhale 3 mL (2.5 mg total) by nebulization every 6 (six) hours as needed for wheezing. 75 mL 2 05/11/2023 Active Start: 09-27-2021 take 2 puff(s) by in halation four times daily albuterol (PROVENTIL HFA;VENTOLIN HFA) 90 mcg/actuation inhaler Indications: Acute exacerbation of chronic obstructive pulmonary disease (COPD) ([facility]) Inhale 2 puffs 4 (four) times a [...] take 2 puff(s) by inhalation at bedtime vgqwxskyuf-dhjatobr-fzm moterol (BREZTRI AEROSPHERE) 160-9-4.8 mcg/actuation HFA aerosol inhaler Indications: Acute exacerbation of chronic obstructive pulmonary disease (COPD) ([facility]) INHALE 2 PUFFS IN THE MORNING AND AT BEDTIME 10.7 g 0 07/19/2023 Active Start: 03-31-2023 End: 07-19-2023 take 2 puff(s) by inhalation at bedtime ksopggteds-qipseyps-nupyeuadmf (BREZTRI AEROSPHERE) 160-9-4.8 mcg/actuation HFA aerosol inhaler Indications: Acute exacerbation of chronic obstructive pulmonary disease (COPD) ([facility]) Inhale 2 puffs in the morning and [...] Active Start: 11-28-2019 take 1 tablet by terrie th four times daily dilTIAZem (CARDIZEM) 30 MG [...] Start: 11-09-2020 take 1 capsule by mo uth once [...] 0 08/29/2019 08/30/2019 Active polyethylene glycol 3350 39340 mg powder for oral solution (1 source) [...] tartrate 1 mg/ml injection (1 source) beta-Adrenergic Royre Start: 10-06-2019 End: 10-06-2019 metoprolol (LOPRESSOR) injection [...] Translations: [CHRONIC SINUSITIS UNSPECIFIED] Onset: 2021 Chronic Other upper respiratory infections (4 sources) Viral upper respiratory tract infection; Translations: [Acute upper respiratory infection, unspecified] Onset: 2021 Episodic Residual codes; unclassified (4 sources) Obstructive sleep [...] 07-02-2021 Episodic Other aftercare (1 source) Other retirement (current) drug therapy; Translations: [OTH SKILLED NURSING CURRENT DRUG THERAPY] Onset: 07-04-2021 Episodic Other aftercare (1 source) roasterman (current) use of anticoagulants; Translations: [SKILLED NURSING CURRNT USE ANTICOAGULANTS] Onset: 07-04-2021 Episodic Other [...] sources) Cough; Translations: [COUGH] Onset: 2021 Episodic Pneumonia (except that caused [...] Views Ordered By: Edilma Cuevas on 07-30-2023 [facility] Radiology Study observation (narrative) [facility] CT NECK ST W [place] CT [...] BARRON TATUM Date: 2021-10-04 09:24 Normal [facility] COMPREHENSIVE METABOLIC PANE Deven 09-19-2021 Albumin [Mass/Vol] 3.9 g/dL Normal 3.6-5.1 [facility] Comment on above: Performed By: #### 7 600, 48176, 33083 #### [facility] of [address], [address] [place] [address] Check Cashier: Chalino Levy MD Albumin/Globulin [Mass ratio] 1.3 {ratio} Normal 1.0-2.5 [facility] Comment on above: Performed By: #### 7 600, 86563, 73773 #### [facility] of [place] [address] Check Cashier: Chalino Levy MD ALP [Catalytic activity/Vol] 71 U/L Normal 37-153 [facility] Comment on above: Performed By: #### 7 600, 11574, 00031 #### [facility] of [place] [address] Check Cashier: Chalino Levy MD ALT [Catalytic activity/Vol] 9 U/L Normal 6-29 [facility] Comment on above: Performed By: #### 7 600, 55372, 18073 #### [facility] of [place] [address] Check Cashier: Chalino Levy MD AST [Catalytic activity/Vol] 10 U/L Normal 10-35 [facility] Comment on above: Performed By: #### 7 600, 80880, 94425 #### [facility] of [place] [address] Check Cashier: Chalino Levy MD Bilirubin [Mass/Vol] 0.6 mg/dL Normal 0.2-1.2 [facility] Comment on above: Performed By: #### 7 600, 97961, 87862 #### [facility] of [place] [address] Check Cashier: Chalino Levy MD BUN/CREATININE RATIO NOT APPLICABLE Normal 6-22 [facility] Comment on above: Performed By: #### 7 600, 36972, 63744 #### [facility] [address], [address] [place] [address] Check Cashier: Chalino Levy MD Calcium [Mass/Vol] 9.0 mg/dL Normal 8.6-10.4 [facility] Comment on above: Performed By: #### 7 600, 13201, 55197 #### [facility] of [address], [address] [place] [address] Check Cashier: Chalino Levy MD Chloride [Moles/Vol] 103 mmol/L Normal 98-110 [facility] Comment on above: Performed By: #### 7 600, 82329, 68153 #### [facility] [address], [address] [place] [address] Check Cashier: Chalino Levy MD CO2 [Moles/Vol] 31 mmol/L Normal 20-32 [facility] Comment on above: Performed By: #### 7 600, 45736, 69082 #### [facility] [address], [address] [place] [address] Check Cashier: Chalino Levy MD Creatinine [Mass/Vol] 0.79 mg/dL Normal 0.50-0.99 [facility] Comment on above: Result Comment: For patients >49 years of age, the reference limit for Creatinine is approximately 13% higher for people identified as -Kazakh. Performed By: #### 7 600, 67982, 96044 #### [facility] [address], [address] [place] [address] Check Cashier: Chalino Levy MD eGFR NON-AFR. CYMRAES 80 mL/min/1.73m2 Normal > OR = 60 [facility] Comment on above: Performed By: #### 7 600, 61498, 19588 #### [facility] [address], [address] [place] [address] Check Cashier: Chalino Levy MD GFR/1.73 sq M.predicted among blacks MDRD (S/P/Bld) [Vol rate/Area] 93 mL/min/{1.73_m2} Normal > OR = 60 [facility] Comment on above: Performed By: #### 7 600, 29142, 63859 #### [facility] [place] [address] Check Cashier: Chalino Levy MD Globulin (S) [Mass/Vol] 3.0 g/dL Normal 1.9-3.7 [facility] Comment on above: Performed By: #### 7 600, 99834, 36729 #### [facility] [place] [address] Check Cashier: Chalino Levy MD Glucose [Mass/Vol] 105 mg/dL High 65-99 [facility] Comment on above: Result Comment: Fasting reference interval For someone without known diabetes, a glucose value between 100 and 125 mg/dL is consistent with prediabetes and should be confirmed with a follow-up test. Performed By: #### 7 600, 30010, 92229 #### [facility] [place] [address] Check Cashier: Chalino Levy MD Potassium [Moles/Vol] 4.3 mmol/L Normal 3.5-5.3 [facility] Comment on above: Performed By: #### 7 600, 92865, 38592 #### [facility] [place] [address] Check Cashier: Chalino Levy MD Protein [Mass/Vol] 6.9 g/dL Normal 6.1-8.1 [facility] Comment on above: Performed By: #### 7 600, 97295, 03377 #### [facility] [place] [address] Check Cashier: Chalino Levy MD Sodium [Moles/Vol] 140 mmol/L Normal 135-146 [facility] Comment on above: Performed By: #### 7 600, 79309, 80214 #### [facility] [address], [address] [place] [address] Check Cashier: Chalino Levy MD Urea nitrogen [Mass/Vol] 23 mg/dL Normal 7-25 [facility] Comment on above: Performed By: #### 7 600, 38913, 23730 #### [facility] [address], [address] [place] [address] Check Cashier: Chalino Levy MD LIPID PANEL, [facility] 03-3 Cholesterol [Mass/Vol] 276 mg/dL High <200 [facility] Comment on above: Order Comment: FASTI NG:YES FASTING: YES Performed By: #### 7 600, 70426, 20422 #### [facility] [address], [address] [place] [address] Check Cashier: Chalino Levy MD Cholesterol in HDL [Mass/Vol] 48 mg/dL Low > OR = 50 [facility] Comment on above: Order Comment: FASTI NG:YES FASTING: YES Performed By: #### 7 600, 76274, 50374 #### [facility] [address], [address] [place] [address] Check Cashier: Chalino Levy MD Cholesterol in LDL [Mass/Vol] [...] in the estimation of LDL-C. Jose Roberto SS et al. EDGARDO. 2013;310(19): 2173-0295 (http://education.Akermin.GroupCard/faq/XUW526) Performed By: #### 7 600, 55230, 22463 #### [facility] [address], [address] [place] [address] Check Cashier: Chalino Levy MD Cholesterol.total/Chol esterol in HDL [Mass ratio] 5.8 {ratio} High <5.0 [facility] Comment on above: Order Comment: FASTI NG:YES FASTING: YES Performed By: #### 7 600, 30884, 83030 #### [facility] [address], [address] [place] [address] Check Cashier: Chalino Levy MD NON HDL CHOLESTEROL 228 [...] therapeutic option. Performed By: #### 7 600, 24200, 19925 #### [facility] [address], [address] [place] [address] Check Cashier: Chalino Levy MD Triglyceride [Mass/Vol] 212 mg/dL High <150 [facility] Comment on above: Order Comment: FASTI NG:YES FASTING: YES Result Comment: If a non-fasting specimen was collected, consider repeat triglyceride testing on a fasting specimen if clinically indicated. Levy et al. J. of Clin. Lipidol. 2015;9:129-169. Performed By: #### 7 600, 11908, 69012 #### [facility] [address], [address] [place] [address] Check Cashier: Chalino Levy MD TSH+FREE T4on 09-19-2021 Free T4 [Mass/Vol] 1.4 ng/dL Normal 0.8-1.8 [facility] Comment on above: Performed By: #### 7 600, 27104, 28156 #### [facility] [address], [address] [place] [address] Check Cashier: Chalino Levy MD TSH Qn 2.51 m[IU]/L Normal 0.40-4.50 [facility] Comment on above: Performed By: #### 7 171, 67629, 92410 #### [facility] [address] [facility], [address] [place] [address] Check Cashier: Chalino Levy MD XR CHEST 2 Von [...] BARRON TATUM Date: 2021-09-12 16:03 Normal [facility] US ST HEAD_NECKon 08-25-[address] HEAD_NECK EXAM: US ST HEAD_NEC K HISTORY: Mass of neck COMPARISON: Ultrasound neck 02/07/2015. CT neck 01/24/2015 TECHNIQUE: Focused sonographic images in the posterior occipital region in the patient's reported area of concern. Additional left neck was scanned per business banker. FINDINGS: No suspicious mass identified within the [...] ASHLEE ESCUDERO Date: 2021-08-25 09:54 Normal [facility] CBC AUTO DIFFon 07-02-2021 BASO # 0.0 103/ul Normal 0.0-0.1 [facility] Comment on above: Performed By: #### C BC #### [facility] [address] [place] [address] [address] Bibi Emerson Basophils/100 WBC (Bld) 0.3 % Normal 0.2-2.0 [facility] Comment on above: Performed By: #### C BC #### [facility] [address] [place] [address] Dr. Bibi Emerson EO # 0.0 103/ul Normal 0.0-0.7 [facility] Comment on above: Performed By: #### C BC #### [facility] [address] [place] [address] Dr. Bibi Emerson Eosinophils/100 WBC (Bld) 0.0 % Critically low 0.9-7.0 [facility] Comment on above: Performed By: #### C BC #### [facility] [address] [place] [address] Dr. Bibi Emerson Erythrocyte distribution width (RBC) [Ratio] 13.0 % Normal 11.0-15.0 [facility] Comment on above: Performed By: #### C BC #### [facility] [address] [place] [address] Dr. Bibi Emerson Hematocrit (Bld) [Volume fraction] 47.0 % Normal 36.0-48.0 [facility] Comment on above: Performed By: #### C BC #### [facility] [address] [place] [address] Dr. Bibi Emerson Hemoglobin (Bld) [Mass/Vol] 15.5 g/dL Normal 12.0-16.0 [facility] Comment on above: Performed By: #### C BC #### [facility] [address] [place] [address] Dr. Bibi Emerson IG # 0.01 10e3/ul Normal 0.00-0.03 [facility] Comment on above: Performed By: #### C BC #### [facility] [address] [place] [address] Dr. Bibi Emerson IG % 0.2 % Normal 0.0-0.5 [facility] Comment on above: Performed By: #### C BC #### [facility] [address] [place] [address] Dr. Bibi Emerosn LYMPH # 2.0 103/ul Normal 1.2-3.8 [facility] Comment on above: Performed By: #### C BC #### [facility] [address] [place] [address] Dr. Bibi Emerson Lymphocytes/100 WBC (Bld) 30.7 % Normal 20.5-60.0 [facility] Comment on above: Performed By: #### C BC #### [facility] [address] [place] [address] Dr. Bibi Emerson MANUAL DIFF REQ NO Normal [facility] Comment on above: Performed By: #### C BC #### [facility] [address] [place] [address] Dr. Bibi Emerson MCH (RBC) [Entitic mass] 29.8 pg Normal 26.7-34.0 [facility] Comment on above: Performed By: #### C BC #### [facility] [address] [place] [address] Dr. Bibi Emerson MCHC (RBC) [Mass/Vol] 33.0 g/dL Normal 29.9-35.2 [facility] Comment on above: Performed By: #### C BC #### [facility] [address] [place] [address] Dr. Bibi Emerson MCV (RBC) [Entitic vol] 90.2 fL Normal 81.0-99.0 [facility] Comment on above: Performed By: #### C BC #### [facility] [address] [place] [address] Dr. Bibi Emerson MONO # 0.5 103/ul Normal 0.3-0.8 [facility] Comment on above: Performed By: #### C BC #### [facility] [address] [place] [address] Dr. Bibi Emerson Monocytes/100 WBC (Bld) 7.9 % Normal 1.7-12.0 [facility] Comment on above: Performed By: #### C BC #### [facility] [address] [place] [address] Dr. Bibi Emerson NEUT # 4.0 103/ul Normal 1.4-6.5 [facility] Comment on above: Performed By: #### C BC #### [facility] [address] [place] [address] Dr. Bibi Emerson Neutrophils/100 WBC (Bld) 60.9 % Normal 43.0-75.0 [facility] Comment on above: Performed By: #### C BC #### [facility] [address] [place] [address] Dr. Bibi Emerson Platelet mean volume (Bld) [Entitic vol] 8.9 fL Critically low 9.5-13.5 [facility] Comment on above: Performed By: #### C BC #### [facility] [address] [place] [address] Dr. Bibi Emerson PLT 303 103/ul Normal 150-450 [facility] Comment on above: Performed By: #### C BC #### [facility] [address] [place] [address] Dr. Bibi Emerson RBC 5.21 106/ul Normal 4.20-5.40 [facility] Comment on above: Performed By: #### C BC #### [facility] [address] [place] [address] Dr. Bibi Emerson WBC 6.5 103/ul Normal 4.0-11.0 [facility] Comment on above: Performed By: #### C BC #### [facility] [address] [place] [address] Dr. Bibi Emerson [facility] SARS-CoV-2 (COVID-19) RNA RAAD+probe Ql (Unsp spec) Detected Critically abnormal NOT DETECTED [facility] Comment on above: Result Comment: This test is not yet approved or cleared by the [place] FDA. When there are no FDA-approved or cleared tests available, and other criteria are met, FDA can make tests available under an emergency access mechanism called an Emergency Use Authorization (EUA). The EUA for this test is supported by the [place] of Health and Human Service's (HHS's) declaration [...] longer be used). Performed By: #### C VDTB #### [facility] [address] [place] [address] [address] Bibi Emerson INFLUENZA A AND B AGon 07-02 INFLUANE SEE BELOW Normal [facility] Comment on above: Result Comment: Nega tive for Flu A protein angiten. Infection due to Flu A cannot be ruled out. Flu A angiten in the sample may be below the detection limit of the test. Performed By: #### I NFLUAB ####[facility] [address] [place], [place] [address]Dr. Bibi Emerson INFLUBNEG SEE BELOW Normal [facility] Comment on above: Result Comment: Nega tive for Flu B protein antigen. Infection due to Flu B cannot be ruled out. Flu B antigen in the sample may be below the detection limit of the test. Performed By: #### I NFLUAB ####[facility] [address] [place], [place] [address]DrNorma Emerson INFLUENZA A AG Negative Normal NEGATIVE SEE COMMENT [facility] Comment on above: Performed By: #### I NFLUAB ####[facility] [address] [place], [place] [address]DrNorma Emerson INFLUENZA B AG Negative Normal NEGATIVE SEE COMMENT [facility] Comment on above: Performed By: #### I NFLUAB ####[facility] [address] [place], [place] [address]DrNorma Emerson INTERNAL CONTROLS Within Normal Limits Normal Wi thin Normal Limits [facility] Comment on above: Performed By: #### I NFLUAB ####[facility] [address] [place], [place] [address]DrNorma Emerson PROF CHEM 8 (BAS METB)on Anion gap [Moles/Vol] 12.0 mmol/L Normal [facility] Comment on above: Performed By: #### B MP #### [facility] [address] [place] [address] [address] Bibi Emerson Calcium [Mass/Vol] 8.2 mg/dL Critically low 8.4-10.2 [facility] Comment on above: Performed By: #### B MP #### [facility] [address] [place] [address] [address] Bibi Emerson Chloride [Moles/Vol] 102 mmol/L Normal 98-107 [facility] Comment on above: Performed By: #### B MP #### [facility] [address] [place] [address] [address] Bibi Emerson CO2 [Moles/Vol] 27.6 mmol/L Normal 22.0-30.0 [facility] Comment on above: Performed By: #### B MP #### [facility] [address] [place] [address] Dr. Bibi Emerson Creatinine [Mass/Vol] 1.03 mg/dL Normal 0.52-1.04 [facility] Comment on above: Performed By: #### B MP #### [facility] [address] [place] [address] [address] Bibi Emerson EGFR-AF CYMRAES >60 Normal >=60 [facility] Comment on above: Performed By: #### B MP #### [facility] [address] [place] [address] [address] Bibi Emerson EGFR-NON AF CYMRAES 54 mL/min/1.73m2 Critically low >=60 [facility] Comment on above: Performed By: #### B MP #### [facility] [address] [place] [address] [address] Bibi Emerson Glucose [Mass/Vol] 127 mg/dL Critically high 74-106 [facility] Comment on above: Performed By: #### B MP #### [facility] [address] [place] [address] [address] Bibi Emerson Potassium [Moles/Vol] 3.6 mmol/L Normal 3.4-5.0 [facility] Comment on above: Performed By: #### B MP #### [facility] [address] [place], [place] [address] Dr. Bibi Emerson Sodium [Moles/Vol] 138 mmol/L Normal 137-145 [facility] Comment on above: Performed By: #### B MP #### [facility] [address] [place] [address] [address] Bibi Emerson Urea nitrogen [Mass/Vol] 18.0 mg/dL Critically high 7.0-17.0 [facility] Comment on above: Performed By: #### B MP #### [facility] [address] [place] [address] [address] Biib Emerson Urea nitrogen/Creatinine [Mass ratio] 17.5 mg/mg Normal [facility] Comment on above: Performed By: #### B MP #### [facility] [address] [place] [address] [address] Bibi Emerson XR CHEST 1 Von [...] GYPSY MUÑOZ Date: 2021-07-02 21:16 Normal [facility] Covid-19 PCR ([facility])on SARS-CoV-2 (COVID-19) RNA RAAD+probe Ql (Unsp spec) Not detected Normal NOT DETECTED [facility] Comment on above: Result Comment: This test is not yet approved or cleared by the [place] FDA. When there are no FDA-approved or cleared tests available, and other criteria are met, FDA can make tests available under an emergency access mechanism called an Emergency Use Authorization (EUA). The EUA for this test is supported by the Director Of [place] of Health and Human Service's (HHS's) declaration [...] with SARS-CoV-2. Performed By: #### C VDTB ####[facility] [address] [place], [place] [address]DeNorma Emerson TSH+FREE T4on 03-27-2021 Free T4 [Mass/Vol] 1.2 ng/dL Normal 0.8-1.8 [facility] Comment on above: Performed By: #### 5 8984 #### [facility] [place] [address] Check Cashier: Chalino Levy MD TSH Qn 2.23 m[IU]/L Normal 0.40-4.50 [facility] Comment on above: Performed By: #### 5 8984 #### [facility] [place] [address] Check Cashier: Chalino Levy MD Covid-19 PCR ([facility])on 02-20 SARS-CoV-2 (COVID-19) RNA RAAD+probe Ql (Unsp spec) Not detected Normal NOT DETECTED [facility] Comment on above: Result Comment: This test is not yet approved or cleared by the [place] FDA. When there are no FDA-approved or cleared tests available, and other criteria are met, FDA can make tests available under an emergency access mechanism called an Emergency Use Authorization (EUA). The EUA for this test is supported by the [place] of Health and Human Service's (HHS's) declaration [...] consistent with SARS-CoV-2. Performed By: #### C AKIL, JUANS #### [facility] [address] [place] [address] Farida Yang SYMPTOMATIC COVID-19 ANTIGEN on 03-02-2021 EUA Statement SEE BELOW Normal [facility] Comment on above: Result Comment: [...] revoked sooner. Performed By: #### C AKIL, JUANS #### [facility] [address] [place] [address] Farida Celia SARS-CoV-2 (COVID-19) RNA RAAD+probe Ql (Unsp spec) Negative Normal NEGATIVE [facility] Comment on above: Result Comment: CONF IRMATION BY PCR PENDING PER CDC GUIDELINES/ SYMPTOMATIC PATIENT. Performed By: #### C AKIL, CVDMEETAS #### [facility] [address] [place] [address] Farida Yang XR CHEST 1 Von 03-02-2021 [...] PALMER GREGORIO Date: 2021-03-02 13:11 Normal [facility] Basic Metabolic PanelOrdered By: Heena John on 11-22-2020 Anion gap [Moles/Vol] 9 mmol/L 9 - 17 mmol/L [employer] Phone: Calcium [Mass/Vol] 8.3 mg/dL Low 8.6 - 10. 4 mg/dL [employer] [facility] Phone: Chloride [Moles/Vol] 103 mmol/L 98 - 10 7 mmol/L [employer] [facility] Phone: CO2 [Moles/Vol] 29 mmol/L 20 - 31 mmol/L [employer] [facility] Phone: Creatinine [Mass/Vol] 0.77 mg/dL 0.50 - 0.90 mg/dL [employer] Phone: GFR >60 >60 mL/min [employer] Phone: GFR Non- >60 >60 mL/min [employer] Phone: GFR/1.73 sq M.predicted MDRD (S/P/Bld) [Vol rate/Area] [employer] Phone: Comment on above: Average GFR for 60-6 9 years old: 85 mL/min/1.73sq m Chronic Kidney Disease: <60 mL/min/1.73sq m Kidney failure: <15 mL/min/1.73sq m eGFR calculated using average adult body mass. Additional eGFR calculator available at: http://www.PicApp.GroupCard/multiple_crcl_2012.htm GFR/1.73 sq M.predicted MDRD (S/P/Bld) [Vol rate/Area] NOT REPORTED [employer] Phone: Glucose [Mass/Vol] 131 mg/dL High 70 - 99 mg/dL [employer] Phone: Interpretation and review of laboratory results Abnormal [employer] Phone: Potassium [Moles/Vol] 4.5 mmol/L 3.7 - 5.3 mmol/L [facility] [employer] Phone: Sodium [Moles/Vol] 141 mmol/L 135 - 144 mmol/L [facility] Phone: Urea nitrogen (BldV) [Mass/Vol] 21 mg/dL 8 - 23 mg/dL [facility] Phone: Urea nitrogen/Creatinine (Bld) [Mass ratio] NOT REPORTED [facility] Phone: [facility] Phone: Basic Metabolic Profon 11-22 (cont.) Normal [facility] Comment on above: Result Comment: Aver age GFR for 60-69 years old: 85 mL/min/1.73sq m Chronic Kidney Disease: <60 mL/min/1.73sq m Kidney failure: <15 mL/min/1.73sq m eGFR calculated using average adult body mass. Additional eGFR calculator available at: http://www.PicApp.GroupCard/multiple_crcl_2012.htm Performed By: #### C MARION, BMP #### [facility] [place] [address] Manager Appointment: Justin Chambers DO Anion gap [Moles/Vol] 9 mmol/L Normal 9-17 [facility] Comment on above: Performed By: #### C MARION, BMP #### [facility] [place] [address] Manager Appointment: Justin Chambers DO Calcium [Mass/Vol] 8.3 mg/dL Low 8.6-10.4 [facility] Comment on above: Performed By: #### C DP, BMP #### [facility] [place] [address] Manager Appointment: Justin Chambers DO Chloride [Moles/Vol] 103 mmol/L Normal 98-107 [facility] Comment on above: Performed By: #### C DP, BMP #### [facility] [address] [place] [address] Manager Appointment: Justin Chambers DO CO2 [Moles/Vol] 29 mmol/L Normal 20-31 [facility] Comment on above: Performed By: #### C DP, BMP #### [facility] [place] [address] Manager Appointment: Justin Chambers DO Creatinine [Mass/Vol] 0.77 mg/dL Normal 0.50-0.90 [facility] Comment on above: Performed By: #### C DP, BMP #### [facility] [place] [address] Manager Appointment: Justin Chambers DO GFR, Amer >60 Normal >60 [facility] Comment on above: Performed By: #### C DP, BMP #### [facility] [place] [address] Manager Appointment: Justin Chambers DO GFR,non Amer >60 Normal >60 [facility] Comment on above: Performed By: #### C DP, BMP #### [facility] [place] [address] Manager Appointment: Justin Chambers DO Glucose [Mass/Vol] 131 mg/dL High 70-99 [facility] Comment on above: Performed By: #### C DP, BMP #### [facility] [place] [address] Manager Appointment: Justin Chambers DO Potassium [Moles/Vol] 4.5 mmol/L Normal 3.7-5.3 [facility] Comment on above: Performed By: #### C DP, BMP #### [facility] [address] [place] [address] Manager Appointment: Justin Chambers DO Sodium [Moles/Vol] 141 mmol/L Normal 135-144 [facility] Comment on above: Performed By: #### C DP, BMP #### [facility] [address] [place] [address] Manager Appointment: Justin Chambers DO Urea nitrogen [Mass/Vol] 21 mg/dL Normal 8-23 [facility] Comment on above: Performed By: #### C DP, BMP #### [facility] [address] [place] [address] Manager Appointment: Justin Chambers DO BUN/CRE Ratio NOT REPORTED Normal 9-20 [facility] Comment on above: Performed By: #### C DP, BMP #### [facility] [address] [place] [address] Manager Appointment: Justin Chambers DO Staging: NOT REPORTED Normal [facility] Comment on above: Performed By: #### C DP, BMP #### [facility] [address] [place] [address] Manager Appointment: Justin Chambers DO CBC Auto DifferentialOrdered By: Heena John on 11-22-2020 [employer] # 0.40 [facility] Work Phone: Absolute Immature Granulocyte NOT REPORTED [facility] Work Phone: Absolute Lymph # 1.80 [facility] Work Phone: Absolute [place] # 0.50 [facility] Work Phone: Basophils (Bld) [#/Vol] 0.10 10*3/uL [facility] Work Phone: Basophils/100 WBC (Bld) 1 % 0 - 2 % [facility] Work Phone: Differential Type NOT REPORTED [employer] Phone: Eosinophils/100 WBC (Bld) 4 % 0 - 4 % [employer] Phone: Hematocrit (Bld) [Volume fraction] 42.5 % 36 - 46 % [facility] Phone: Hemoglobin.gastrointes tinal spec 1 Ql (Stl) 13.8 g/dL 12.0 - 16.0 g/dL [employer] Phone: Immature Granulocytes NOT REPORTED 0 % [facility] Phone: Interpretation and review of laboratory results Abnormal [employer] Phone: Lymphocytes/100 WBC (Bld) 19 % Low 24 - 44 % [employer] Phone: MCH (RBC) [Entitic mass] 29.5 pg 26 - 34 pg [employer] Phone: MCHC (RBC) [Mass/Vol] 32.5 g/dL 31 - 3 7 g/dL [employer] Phone: MCV (RBC) [Entitic vol] 90.8 fL 80 - 100 fL [employer] Phone: Monocytes/100 WBC (Bld) 6 % 1 - 7 % [employer] Phone: NRBC Automated NOT REPORTED per 100 WBC [employer] [facility] Work Phone: Platelet distribution width (Bld) [Ratio] 13.3 % 11.5 - 14.9 % [employer] Phone: Platelet Estimate NOT REPORTED [employer] Phone: Platelet mean volume (Bld) [Entitic vol] 7.2 fL 6.0 - 12.0 fL [employer] Phone: Platelets (Bld) [#/Vol] 388 10*3/uL [employer] Phone: RBC (Bld) [#/Vol] 4.68 10*6/uL 4.0 - 5.2 m/uL [employer] Work Phone: RBC (Bld) [#/Vol] NOT REPORTED [employer] Work Phone: Segmented neutrophils/100 WBC (Bld) 70 % High 36 - 66 % [employer] Work Phone: Segs [employer] 6[employer]70 [employer] Work Phone: WBC (Bld) [#/Vol] 9.4 10*3/uL [employer] Work Phone: WBC (Bld) [#/Vol] NOT REPORTED [employer] Phone: [employer] Work Phone: CBC with Diffon 11-22-2020 Abs. Basophil 0.10 k/uL Normal 0.0-0.2 [facility] Comment on above: Performed By: #### C DP, BMP #### [facility] [address] [place] [address] Manager Appointment: Justin Chambers DO Abs.Neutrophil (Seg) 6.70 k/uL Normal 1.3-9.1 [facility] Comment on above: Performed By: #### C DP, BMP #### [facility] [address] [place] [address] Manager Appointment: Justin hCambers DO Basophils/100 WBC (Bld) 1 % Normal 0-2 [facility] Comment on above: Performed By: #### C DP, BMP #### [facility] [address] [place] [address] [phone] Manager Appointment: Justin Chambers DO Eosinophils (Bld) [#/Vol] 0.40 10*3/uL Normal 0.0-0.4 [facility] Comment on above: Performed By: #### C DP, BMP #### [facility] [address] [place] [address] Manager Appointment: Justin Chambers DO Eosinophils/100 WBC (Bld) 4 % Normal 0-4 [facility] Comment on above: Performed By: #### C DP, BMP #### [facility] [place] [address] Manager Appointment: Justin Chmabers DO Erythrocyte distribution width (RBC) [Ratio] 13.3 % Normal 11.5-14.9 [facility] Comment on above: Performed By: #### C DP, BMP #### [facility] [address] [place] [address] Manager Appointment: Justin Chambers DO Hematocrit (Bld) [Volume fraction] 42.5 % Normal 36-46 [facility] Comment on above: Performed By: #### C DP, BMP #### [facility] [place] [address] Manager Appointment: Justin Chambers DO Hemoglobin (Bld) [Mass/Vol] 13.8 g/dL Normal 12.0-16.0 [facility] Comment on above: Performed By: #### C DP, BMP #### [facility] [address] [place] [address] Manager Appointment: Justin Chambers DO Lymphocytes (Bld) [#/Vol] 1.80 10*3/uL Normal 1.0-4.8 [facility] Comment on above: Performed By: #### C DP, BMP #### [facility] [address] [place] [address] Manager Appointment: Justin Chambers DO Lymphocytes/100 WBC (Bld) 19 % Low 24-44 [facility] Comment on above: Performed By: #### C DP, BMP #### [facility] [place] [address] Manager Appointment: Justin Chambers DO MCH (RBC) [Entitic mass] 29.5 pg Normal 26-34 [facility] Comment on above: Performed By: #### C DP, BMP #### [facility] [place] [address] Manager Appointment: Justin Chambers DO MCHC (RBC) [Mass/Vol] 32.5 g/dL Normal 31-37 [facility] Comment on above: Performed By: #### C DP, BMP #### [facility] [address] [place] [address] Manager Appointment: Justin Chambers DO MCV (RBC) [Entitic vol] 90.8 fL Normal 80-100 [facility] Comment on above: Performed By: #### C DP, BMP #### [facility] [address] [place] [address] Manager Appointment: Justin Chambers DO Monocytes (Bld) [#/Vol] 0.50 10*3/uL Normal 0.1-1.3 [facility] Comment on above: Performed By: #### C DP, BMP #### [facility] [address] [place] [address] Manager Appointment: Justin Chambers DO Monocytes/100 WBC (Bld) 6 % Normal 1-7 [facility] Comment on above: Performed By: #### C DP, BMP #### [facility] [address] [place] [address] Manager Appointment: Justin Chambers DO Neutrophil (Seg) 70 % High 36-66 [facility] Comment on above: Performed By: #### C DP, BMP #### [facility] [address] [place] [address] Manager Appointment: Justin Chambers DO Platelet mean volume (Bld) [Entitic vol] 7.2 fL Normal 6.0-12.0 [facility] Comment on above: Performed By: #### C DP, BMP #### [facility] [address] [place] [address] Manager Appointment: Justin Chambers DO Platelets (Bld) [#/Vol] 388 10*3/uL Normal 150-450 [facility] Comment on above: Performed By: #### C DP, BMP #### [facility] [place] [address] Manager Appointment: Justin Chambers DO RBC (Bld) [#/Vol] 4.68 10*6/uL Normal 4.0-5.2 [facility] Comment on above: Performed By: #### C DP, BMP #### [facility] [place] [address] Manager Appointment: Justin Chambers DO WBC (Bld) [#/Vol] 9.4 10*3/uL Normal 3.5-11.0 [facility] Comment on above: Performed By: #### C DP, BMP #### [facility] [place] [address] Manager Appointment: Justin Chambers DO Abs.Imm.Granulocyte NOT REPORTED Normal 0.00-0.30 [facility] Comment on above: Performed By: #### C DP, BMP #### [facility] [place] [address] Manager Appointment: Justin Chambers DO Auto Diff Performed NOT REPORTED Normal [facility] Comment on above: Performed By: #### C DP, BMP #### [facility] [place] [address] Manager Appointment: Justin Chambers DO Immature Granulocyte NOT REPORTED Normal 0 Me [facility] Comment on above: Performed By: #### C DP, BMP #### [facility] [address] [facility] [place] [address] Manager Appointment: Justin Chambers DO NRBC Automated NOT REPORTED Normal [facility] Comment on above: Performed By: #### C DP, BMP #### [facility] [address] [place] [address]. [place] [address] Manager Appointment: Justin Chambers DO Platelet Estimate NOT REPORTED Normal [facility] Comment on above: Performed By: #### C DP, BMP #### [facility] [address] [place] [address]. [place] [address] Manager Appointment: Justin Chambers DO RBC morphology finding Nom (Bld) NOT REPORTED Normal [facility] Comment on above: Performed By: #### C DP, BMP #### [facility] [address] [place] [address]. [place] [address] Manager Appointment: Justin Chambers DO WBC Morphology NOT REPORTED Normal [facility] Comment on above: Performed By: #### C DP, BMP #### [facility] [address] [place] [address]. [place] [address] Manager Appointment: Justin Chambers DO COVID-19, RapidOrdered By: Ifeoma John on 11-22-2020 SARS-CoV-2 (COVID-19) RNA RAAD+probe Ql (Unsp spec) Not detected Not Detected [facility] Work Phone: Comment on above: Rapid [...] management decisions. Fact sheet for Healthcare Providers: https://www.fda.gov/media/036582/download Fact sheet for Patients: https://www.fda.gov/media/016861/download Methodology: Isothermal Nucleic Acid Amplification Specimen Description .NASOPHARYNGEAL SWAB [facility] [employer] Phone: [facility] [employer] Phone: [id number] 11-22-2020 SARS-CoV-2 (COVID-19) RNA RAAD+probe Ql (Unsp spec) Not detected Normal NOTDET [facility] Comment on above: Result Comment: [...] management decisions. Fact sheet for Healthcare Providers: https://www.fda.gov/media/622626/download Fact sheet for Patients: https://www.fda.gov/media/980310/download Methodology: Isothermal Nucleic Acid Amplification Performed By: #### C OVRB #### [facility] [address] [place] [address] Manager Appointment: Justin Chambers DO XR CHEST PORTABLEon 11-23-19 [...] Ryanne Cantrell MD 11/22/20 Final result Normal [facility] XR CHEST PORTABLEOrdered By: Heena John on 11-22-2020 No acute cardiopulmonary process. Stable cardiomegaly and chronic basilar changes. [employer] Phone: EXAMINATION: ONE XRA Y VIEW OF [...] are age-appropriate. Chronic basilar changes are noted. [employer] Phone: Jose Antonio, Mhpn Incoming Radiant Results From [employer] - 11/22/2020 1:15 PM EDT EXAMINATION: ONE [...] process. Stable cardiomegaly and chronic basilar changes. [employer] Work Phone: [employer] Work Phone: CT HEAD WO CONTRASTon 2019 [...] Huma Contreras MD 04/18/20 Final result Normal [facility] [employer]Con 04-16-2020 Erythrocyte distribution width (RBC) [Ratio] 13.0 % Normal 11.8-14.4 [facility] Comment on above: Performed By: #### C MEERA HARRIS, TSH #### [employer] [address] [place], [place] [phone] Manager Appointment: Beau Troncoso MD Hematocrit (Bld) [Volume fraction] 45.8 % Normal 36.3-47.1 [facility] Comment on above: Performed By: #### C MEERA HARRIS, TSH #### [employer] [address] [place], [place] [phone] Manager Appointment: Beau Troncoso MD Hemoglobin (Bld) [Mass/Vol] 14.3 g/dL Normal 11.9-15.1 [facility] Comment on above: Performed By: #### C MEERA HARRIS, TSH #### [address] [address] Manager Appointment: Beau Troncoso MD MCH (RBC) [Entitic mass] 29.5 pg Normal 25.2-33.5 [facility] Comment on above: Performed By: #### C KIMBERLY CP, TSH #### [facility] [employer] [address] [place] [address] Manager Appointment: Beau Troncoso MD MCHC (RBC) [Mass/Vol] 31.2 g/dL Normal 28.4-34.8 [facility] Comment on above: Performed By: #### C MEERA HARRIS, TSH #### [address] [address] Manager Appointment: Beau Troncoso MD MCV (RBC) [Entitic vol] 94.6 fL Normal 82.6-102.9 [facility] Comment on above: Performed By: #### C MEERA HARRIS, TSH #### [address] [address] Manager Appointment: Beau Troncoso MD NRBC Automated 0.0 per 100 WBC Normal 0.0 [facility] Comment on above: Performed By: #### C MEERA HARRIS, TSH #### [address] [address] Manager Appointment: Beau Troncoso MD Platelet mean volume (Bld) [Entitic vol] 9.6 fL Normal 8.1-13.5 [facility] Comment on above: Performed By: #### C KIMBERLY CP, TSH #### [facility] [employer] [address] [place] [address] Manager Appointment: Beau Troncoso MD Platelets (Bld) [#/Vol] 419 10*3/uL Normal 138-453 [facility] Comment on above: Performed By: #### C MEERA HARRIS, TSH #### [facility] [address] [place] [address] Manager Appointment: Beau Troncoso MD RBC (Bld) [#/Vol] 4.84 10*6/uL Normal 3.95-5.11 [facility] Comment on above: Performed By: #### C KIMBERLY CP, TSH #### [facility] [address] [place] [address] Manager Appointment: Beau Troncoso MD WBC (Bld) [#/Vol] 7.6 10*3/uL Normal 3.5-11.3 [facility] Comment on above: Performed By: #### C MEERA HARRIS, TSH #### [facility] [address] [place], [place] [phone] Manager Appointment: Beau Troncoso MD Erythrocyte distribution width (RBC) [Ratio] 13.0 % 11.8 - 14.4 % [place] Hematocrit (Bld) [Volume fraction] 45.8 % 36.3 - 47.1 % [place] Hemoglobin (Bld) [Mass/Vol] 14.3 g/dL 11.9 - 15.1 g/dL [place] MCH (RBC) [Entitic mass] 29.5 pg 25.2 - 33.5 pg [place] MCHC (RBC) [Mass/Vol] 31.2 g/dL 28.4 - 34.8 g/dL [place] MCV (RBC) [Entitic vol] 94.6 fL 82.6 - 102.9 fL [place] Platelet mean volume (Bld) [Entitic vol] 9.6 fL 8.1 - 13.5 fL [place] Platelets (Bld) [#/Vol] 419 10*3/uL [place] RBC (Bld) [#/Vol] 4.84 10*6/uL 3.95 - 5.1 1 m/uL [place] WBC (Bld) [#/Vol] 0.0 10*3/uL 0.0 per 10 0 WBC [place] WBC (Bld) [#/Vol] 7.6 10*3/uL [place] Comp Metabolic Profon 2019 (cont.) Normal [facility] Comment on above: Result Comment: Aver age GFR for 60-69 years old: 85 mL/min/1.73sq m Chronic Kidney Disease: <60 mL/min/1.73sq m Kidney failure: <15 mL/min/1.73sq m eGFR calculated using average adult body mass. Additional eGFR calculator available at: http://www.Strut/multiple_crcl_2011.htm Performed By: #### C BC CP, TSH #### [facility] [address] [place] [address] Manager Appointment: Beau Troncoso MD Albumin [Mass/Vol] 4.0 g/dL Normal 3.5-5.2 [facility] Comment on above: Performed By: #### C BC CP, TSH #### [employer] [address] [place] [address] Manager Appointment: Beau Troncoso MD Albumin/Globulin [Mass ratio] 1.4 {ratio} Normal 1.0-2.5 [facility] Comment on above: Performed By: #### C BC CP, TSH #### [employer] [address] [place] [address] Manager Appointment: Beau Troncoso MD Alkaline Phos 67 U/L Normal 35-104 [facility] Comment on above: Performed By: #### C BC, CP, TSH #### [employer] [facility] [place] [address] Manager Appointment: Beau Troncoso MD ALT [Catalytic activity/Vol] 13 U/L Normal 5-33 [facility] Comment on above: Performed By: #### C BC, CP, TSH #### [facility] [place] [address] Manager Appointment: Beau Troncoso MD Anion gap [Moles/Vol] 8 mmol/L Low 9-17 [facility] Comment on above: Performed By: #### C BC, CP, TSH #### [facility] [address] [place] [address] Manager Appointment: Beau Troncoso MD AST [Catalytic activity/Vol] 12 U/L Normal <32 [facility] Comment on above: Performed By: #### C BC, CP, TSH #### [facility] [address] [place] [address] Manager Appointment: Beau Troncoso MD Bilirubin Ql (U) 0.30 mg/dL Normal 0.3-1.2 [facility] Comment on above: Performed By: #### C BC, CP, TSH #### [facility] [address] [place] [address] Manager Appointment: Beau Troncoso MD Calcium [Mass/Vol] 8.7 mg/dL Normal 8.6-10.4 [facility] Comment on above: Performed By: #### C BC, CP, TSH #### [facility] [address] [place] [address] Manager Appointment: Beau Troncoso MD Chloride [Moles/Vol] 102 mmol/L Normal 98-107 [facility] Comment on above: Performed By: #### C BC, CP, TSH #### [facility] [address] [place] [address] Manager Appointment: Beau Troncoso MD CO2 [Moles/Vol] 32 mmol/L High 20-31 [facility] Comment on above: Performed By: #### C BC, CP, TSH #### [facility] [address] [place] [address] Manager Appointment: Beau Troncoso MD Creatinine [Mass/Vol] 0.78 mg/dL Normal 0.50-0.90 [facility] Comment on above: Performed By: #### C BC CP, TSH #### [facility] [address] [place] [address] Manager Appointment: Beau Troncoso MD GFR, Amer >60 Normal >60 [facility] Comment on above: Performed By: #### C BC CP, TSH #### [facility] [address] [place] [address] Manager Appointment: Beau Troncoso MD GFR,non Amer >60 Normal >60 [facility] Comment on above: Performed By: #### C KIMBERLY CP, TSH #### [facility] [employer] [address] [place] [id number] Manager Appointment: Beau Troncoso MD Glucose [Mass/Vol] 86 mg/dL Normal 70-99 [facility] Comment on above: Performed By: #### C KIMBERLY CP, TSH #### [facility] [employer] [address] [place] [address] Manager Appointment: Beau Troncoso MD Potassium [Moles/Vol] 4.7 mmol/L Normal 3.7-5.3 [facility] Comment on above: Performed By: #### C KIMBERLY CP, TSH #### [facility] [employer] [address] [place] [id number] Manager Appointment: Beau Troncoso MD Protein [Mass/Vol] 6.8 g/dL Normal 6.4-8.3 [facility] Comment on above: Performed By: #### C BC CP, TSH #### [facility] [address] [place] [id number] Manager Appointment: Beau Troncoso MD Sodium [Moles/Vol] 142 mmol/L Normal 135-144 [facility] Comment on above: Performed By: #### C BC, CP, TSH #### [facility] [address] [place] [address] Manager Appointment: Beau Troncoso MD Urea nitrogen [Mass/Vol] 22 mg/dL Normal - [facility] Comment on above: Performed By: #### C BC, CP, TSH #### [facility] [address] [place] [address] Manager Appointment: Beau Troncoso MD BUN/CRE Ratio NOT REPORTED Normal 03-11 [facility] Comment on above: Performed By: #### C BC, CP, TSH #### [facility] [address] [place] [address] Manager Appointment: Beau Troncoso MD Staging: NOT REPORTED Normal [facility] Comment on above: Performed By: #### C BC, CP, TSH #### [facility] [address] [place] [address] Manager Appointment: Beau Troncoso MD [facility] Metabolic [facility] 04-16-2020 Albumin [Mass/Vol] 4 g/dL 3.5 - 5.2 g/dL [place] Albumin/Globulin [Mass ratio] 1.4 {ratio} [place] ALP [Catalytic activity/Vol] 67 U/L 35 - 104 U/L [place] ALT [Catalytic activity/Vol] 13 U/L 5 - 33 U/L [place] Anion gap [Moles/Vol] 8 mmol/L Low 9 - 17 mmol/L [place] AST [Catalytic activity/Vol] 12 U/L <32 [place] Bilirubin Ql (U) 0.30 mg/dL 0.3 - 1.2 mg/dL [place] Bun/Cre Ratio NOT REPORTED [place], [place] Calcium [Mass/Vol] 8.7 mg/dL 8.6 - 10. 4 mg/dL [place] Chloride [Moles/Vol] 102 mmol/L 98 - 10 7 mmol/L [place] CO2 [Moles/Vol] 32 mmol/L High 20 - 31 mmol/L [place] Creatinine [Mass/Vol] 0.78 mg/dL 0.5 - 0.9 mg/dL [place] GFR >60 >60 mL/min [place] GFR Non- >60 >60 mL/min [place] GFR/1.73 sq M predicted among non-blacks MDRD (S/P/Bld) [Vol rate/Area] [place] Comment on above: Average GFR for 60-6 9 years old: 85 mL/min/1.73sq m Chronic Kidney Disease: <60 mL/min/1.73sq m Kidney failure: <15 mL/min/1.73sq m eGFR calculated using average adult body mass. Additional eGFR calculator available at: http://www.Strut/DZZOM_crcl_2012.htm GFR/1.73 sq M predicted among non-blacks MDRD (S/P/Bld) [Vol rate/Area] NOT REPORTED [place] Glucose [Mass/Vol] 86 mg/dL 70 - 99 mg/dL [place] Interpretation and review of laboratory results Abnormal [place] Potassium [Moles/Vol] 4.7 mmol/L 3.7 - 5.3 mmol/L [place] Protein [Mass/Vol] 6.8 g/dL 6.4 - 8.3 g/dL [place] Sodium [Moles/Vol] 142 mmol/L 135 - 144 mmol/L [place] Urea nitrogen [Mass/Vol] 22 mg/dL 8 - 23 mg/dL [place] Hemoglobin A1Con 04-16-2020 Glucose [Mass/Vol] 126 mg/dL [place] Comment on above: The ADA and AACC rec ommend providing the estimated average glucose result to permit better patient understanding of their HBA1c result. HbA1c (Bld) [Mass fraction] 6.0 % 4 - 6 % [place] TSH without Reflexon 020 TSH Qn 0.89 m[IU]/L [facility], [place] Thyroid Stim. Horm.on 2019 TSH Qn 0.89 m[IU]/L Normal 0.30-5.00 [facility] Comment on above: Performed By: #### C BC, CP, TSH #### [facility] [address] [place] [address] Manager Appointment: Beau Troncoso MD MRI SHOULDER RIGHT WO CONTRA STon 03-25-2020 MRI SHOULDER RIGHT WO CONTRAST EXAMINATION: [...] Blas Godwin MD 03/25/20 Final result Normal [facility] 1. Moderate acromioclavicular osteoarthritis with reactive edema in the distal clavicle and acromion. 2. Minimal 2 mm interstitial tear of the infraspinatus tendon. Mild bursal surface fraying of the supraspinatus and infraspinatus tendons. No additional rotator cuff tear. 3. No biceps tear. [facility], [place] EXAMINATION: MRI OF THE [...] are without obstructing or space occupying lesions. [facility] [place], [place] Jose Antonio, Mhpn Incoming Radiant Results From [employer] - 03/25/2020 4:57 PM EDT EXAMINATION: MRI [...] rotator cuff tear. 3. No biceps tear. [place] C-Reactive Proteinon 11-01- 020 CRP [Mass/Vol] 13 mg/L High 0 - 5 mg/L [place] CBC Auto Differentialon 10-20 Basophils (Bld) [#/Vol] 0.10 10*3/uL [place] Basophils/100 WBC (Bld) 1 % 0 - 2 % [place] Differential Type NOT REPORTED [place] Eosinophils (Bld) [#/Vol] 0.20 10*3/uL [place] Eosinophils/100 WBC (Bld) 3 % 0 - 4 % [place] Erythrocyte distribution width (RBC) [Ratio] 13.0 % 11.5 - 14.9 % [place] Hematocrit (Bld) [Volume fraction] 42.0 % 36 - 46 % [place] Hemoglobin (Bld) [Mass/Vol] 13.8 g/dL 12 - 16 g/dL [place] Interpretation and review of laboratory results Abnormal [place] Lymphocytes (Bld) [#/Vol] 1.10 10*3/uL [place] Lymphocytes/100 WBC (Bld) 13 % Low 24 - 44 % [place] MCH (RBC) [Entitic mass] 30.5 pg 26 - 34 pg [place] MCHC (RBC) [Mass/Vol] 32.7 g/dL 31 - 3 7 g/dL [place] MCV (RBC) [Entitic vol] 93.1 fL 80 - 100 fL [place] Monocytes (Bld) [#/Vol] 0.50 10*3/uL [place] Monocytes/100 WBC (Bld) 5 % 1 - 7 % [place] Platelet mean volume (Bld) [Entitic vol] 6.9 fL 6 - 12 fL [place] Platelets (Bld) [#/Vol] 382 10*3/uL [place] Platelets (Bld) [#/Vol] NOT REPORTED [place] RBC (Bld) [#/Vol] 4.51 10*6/uL 4 - 5.2 m/uL [place] RBC morphology finding Nom (Bld) NOT REPORTED [place] Segmented neutrophils/100 WBC (Bld) 78 % High 36 - 66 % [place] Segs Absolute 6.90 [place] WBC (Bld) [#/Vol] 8.8 10*3/uL [place] WBC (Bld) [#/Vol] NOT REPORTED per 100 WBC [place] WBC Morphology NOT REPORTED [place] Comprehensive Metabolic Pane deven 11-02-2019 Albumin [Mass/Vol] 4.1 g/dL 3.5 - 5.2 g/dL [place] Albumin/Globulin [Mass ratio] NOT REPORTED [place] ALP [Catalytic activity/Vol] 61 U/L 35 - 104 U/L [place] ALT [Catalytic activity/Vol] 13 U/L 5 - 33 U/L [place] Anion gap [Moles/Vol] 7 mmol/L Low 9 - 17 mmol/L [place] AST [Catalytic activity/Vol] 12 U/L <32 [place] Bilirubin Ql (U) 0.29 mg/dL Low 0.3 - 1.2 mg/dL [place] Bun/Cre Ratio NOT REPORTED [place] Calcium [Mass/Vol] 8.7 mg/dL 8.6 - 10. 4 mg/dL [place] Chloride [Moles/Vol] 101 mmol/L 98 - 10 7 mmol/L [place] CO2 [Moles/Vol] 31 mmol/L 20 - 31 mmol/L [place] Creatinine [Mass/Vol] 0.72 mg/dL 0.5 - 0.9 mg/dL [place] GFR >60 >60 mL/min [place] GFR Non- >60 >60 mL/min [place] GFR/1.73 sq M predicted among non-blacks MDRD (S/P/Bld) [Vol rate/Area] NOT REPORTED [place] GFR/1.73 sq M predicted among non-blacks MDRD (S/P/Bld) [Vol rate/Area] [place] Comment on above: Average GFR for 60-6 9 years old: 85 mL/min/1.73sq m Chronic Kidney Disease: <60 mL/min/1.73sq m Kidney failure: <15 mL/min/1.73sq m eGFR calculated using average adult body mass. Additional eGFR calculator available at: http://www.Strut/multiple_crcl_2011.htm Glucose [Mass/Vol] 118 mg/dL High 70 - 99 mg/dL [place] Potassium [Moles/Vol] 4.8 mmol/L 3.7 - 5.3 mmol/L [place] Protein [Mass/Vol] 7.5 g/dL 6.4 - 8.3 g/dL [place] Sodium [Moles/Vol] 139 mmol/L 135 - 144 mmol/L [place] Urea nitrogen [Mass/Vol] 21 mg/dL 8 - 23 mg/dL [place] D-Dimer, Quantitativeon 10-20 D-Dimer, Quant <0.27 [place] Comment on above: When combined with [...] LD 173 U/L 135 - 214 U/L [place] Lactic Acid, Plasmaon 2019 Lactate [Moles/Vol] 0.5 mmol/L 0.5 - 2. 2 mmol/L [place] Lactic Acid, Whole Blood NOT REPORTED 0.7 - 2.1 mmol/L [place] Otheron 11-02-2019 Interpretation and review of laboratory results Abnormal [place] Immature granulocytes (Bld) [#/Vol] NOT REPORTED [place] Troponinon 11-02-2019 Troponin I.cardiac [Mass/Vol] NOT REPORTED [place] Troponin T.cardiac [Mass/Vol] NOT REPORTED <0.03 ng/mL [place] Troponin, High Sensitivity <6 0 - 14 ng/L [place] Comment on above: High Sensitivity Troponin values cannot be compared with other Troponin methodologies. Patients with high levels of Biotin oral intake (i.e >5mg/day) may have falsely decreased Troponin levels. Samples collected within 8 hours of biotin intake may require additional information for diagnosis. Troponin I.cardiac [Mass/Vol] NOT REPORTED [place] Troponin T.cardiac [Mass/Vol] NOT REPORTED <0.03 ng/mL [place] Troponin, High Sensitivity <6 0 - 14 ng/L [place] Comment on above: High Sensitivity Troponin [...] unremarkable. The extrathoracic soft tissues are unremarkable. [place] Cardiomegaly and chronic pulmonary change without acute pulmonary process. [place] Jose Antonio, Mhpn Incoming Radiant Results From [employer] - 11/02/2019 10:59 AM EDT EXAMINATION: ONE [...] chronic pulmonary change without acute pulmonary process. [place] B.A.L. CELL COUNTon 10-07-19 20 Fluid Diff Comment Reviewed by pathologist: Justin Chambers D.O. [place] Comment on above: SLIDE REVIEWED. MACR OPHAGES AND MIXED INFLAMMATORY CELLS NOTED. CORRECTED ON 10/06 AT 1306: PREVIOUSLY REPORTED TO BE REVIEWED BY PATHOLOGIST RBC (Bld) [#/Vol] 913 /mm3 [place] Specimen type Nom (Spec) .BRONCHIAL WASHINGS [place] WBC (Bld) [#/Vol] 38 /mm3 [place] Culture, Respiratoryon 10-06 Culture NORMAL RESPIRATORY CHERYL MODERATE GROWTH [place] Direct Exam FEW NEUTROPHILS Abnormal [place] Interpretation and review of laboratory results Abnormal [place] Special Requests NOT REPORTED [place] Specimen Description .BRONCHIAL WASHINGS [place] Fungal stainon 10-07-2019 Direct Exam NO FUNGAL ELEMENTS SEEN [place] Special Requests NOT REPORTED [place] Specimen Description .BRONCHIAL WASHINGS [place] Otheron 10-07-2019 Direct Exam Positive Abnormal [place] CBC with DIFFon 10-06-2019 Basophils (Bld) [#/Vol] 0.14 10*3/uL [place] Basophils/100 WBC (Bld) 1 % 0 - 2 % [place] Differential Type NOT REPORTED [place] Eosinophils (Bld) [#/Vol] 0.00 10*3/uL [place] Eosinophils/100 WBC (Bld) 0 % 0 - 4 % [place] Erythrocyte distribution width (RBC) [Ratio] 13.4 % 11.5 - 14.9 % [place] Hematocrit (Bld) [Volume fraction] 40.9 % 36 - 46 % [place] Hemoglobin (Bld) [Mass/Vol] 13.5 g/dL 12 - 16 g/dL [place] Interpretation and review of laboratory results Abnormal [place] Lymphocytes (Bld) [#/Vol] 1.15 10*3/uL [place] Lymphocytes/100 WBC (Bld) 8 % Low 24 - 44 % [place] MCH (RBC) [Entitic mass] 30.6 pg 26 - 34 pg [place] MCHC (RBC) [Mass/Vol] 33.0 g/dL 31 - 3 7 g/dL [place] MCV (RBC) [Entitic vol] 92.7 fL 80 - 100 fL [place] Monocytes (Bld) [#/Vol] 0.29 10*3/uL [place] Monocytes/100 WBC (Bld) 2 % 1 - 7 % [place] Morphology Den (Bld) [Interp] Normal [place] Platelet mean volume (Bld) [Entitic vol] 7.3 fL 6 - 12 fL [place] Platelets (Bld) [#/Vol] NOT REPORTED [place] Platelets (Bld) [#/Vol] 419 10*3/uL [place] RBC (Bld) [#/Vol] 4.41 10*6/uL 4 - 5.2 m/uL [place] RBC morphology finding Nom (Bld) NOT REPORTED [place] Segmented neutrophils/100 WBC (Bld) 89 % High 36 - 66 % [place] Segs Absolute 12.82 [place] WBC (Bld) [#/Vol] NOT REPORTED per 100 WBC [place] WBC (Bld) [#/Vol] 14.4 10*3/uL [place] WBC Morphology NOT REPORTED [place] Cell Count with Diff, BALon 10-06-2019 BAL Diff Comment TO BE REVIEWED BY PATHOLOGIST [place] Columnar Epis BAL PRESENT [place] Eosinophils/100 WBC (Bld) 4 % High 0 - 1 % [place] Interpretation and review of laboratory results Abnormal [place] Lymphocytes/100 WBC (Bld) 13 % High 8 - 12 % [place] Macrophages, BAL 61 % Low 85 - 95 % [place] Segmented neutrophils/100 WBC (Bld) 22 % High 0 - 10 % [place] Comp Metabolic Profon 2019 Albumin [Mass/Vol] 3.5 g/dL 3.5 - 5.2 g/dL [place] Albumin/Globulin [Mass ratio] NOT REPORTED [place] ALP [Catalytic activity/Vol] 49 U/L 35 - 104 U/L [place] ALT [Catalytic activity/Vol] 10 U/L 5 - 33 U/L [place] Anion gap [Moles/Vol] 12 mmol/L 9 - 17 mmol/L [place] AST [Catalytic activity/Vol] 12 U/L <32 [place] Bilirubin Ql (U) 0.30 mg/dL 0.3 - 1.2 mg/dL [place] Bun/Cre Ratio NOT REPORTED [place] Calcium [Mass/Vol] 9.0 mg/dL 8.6 - 10. 4 mg/dL [place] Chloride [Moles/Vol] 100 mmol/L 98 - 10 7 mmol/L [place] CO2 [Moles/Vol] 26 mmol/L 20 - 31 mmol/L [place] Creatinine [Mass/Vol] 0.72 mg/dL 0.5 - 0.9 mg/dL [place] GFR >60 >60 mL/min [place] GFR Non- >60 >60 mL/min [place] GFR/1.73 sq M predicted among non-blacks MDRD (S/P/Bld) [Vol rate/Area] [place] Comment on above: Average GFR for 60-6 9 years old: 85 mL/min/1.73sq m Chronic Kidney Disease: <60 mL/min/1.73sq m Kidney failure: <15 mL/min/1.73sq m eGFR calculated using average adult body mass. Additional eGFR calculator available at: http://www.Strut/multiple_crcl_2012.htm GFR/1.73 sq M predicted among non-blacks MDRD (S/P/Bld) [Vol rate/Area] NOT REPORTED [place] Glucose [Mass/Vol] 145 mg/dL High 70 - 99 mg/dL [place] Potassium [Moles/Vol] 4.1 mmol/L 3.7 - 5.3 mmol/L [place] Protein [Mass/Vol] 6.7 g/dL 6.4 - 8.3 g/dL [place] Sodium [Moles/Vol] 138 mmol/L 135 - 144 mmol/L [place] Urea nitrogen [Mass/Vol] 23 mg/dL 8 - 23 mg/dL [place] Culture, Virus, Respiratoryo n 10-06-2019 Culture VIRAL RESPIRATORY CULTURES ARE NOT LONGER PERFORMED [place] Special Requests NOT REPORTED [place] Specimen Description .BRONCHIAL WASHINGS [place] Otheron 10-06-2019 Interpretation and review of laboratory results Abnormal [place] Immature granulocytes (Bld) [#/Vol] NOT REPORTED [place] T4, Freeon 10-06-2019 Interpretation and review of laboratory results Abnormal [place] Thyroxine, Free 2.03 ng/dL High 0.93 - 1.7 ng/dL [place] TSH with Reflexon 10-06-2019 TSH Qn 0.10 m[IU]/L [place] Basic Metabolic Panel w/ Ref alvin to MG10-05-2019 Anion gap [Moles/Vol] 9 mmol/L 9 - 17 mmol/L [place] Bun/Cre Ratio NOT REPORTED [place], [place] Calcium [Mass/Vol] 8.8 mg/dL 8.6 - 10. 4 mg/dL [place] Chloride [Moles/Vol] 102 mmol/L 98 - 10 7 mmol/L [place] CO2 [Moles/Vol] 29 mmol/L 20 - 31 mmol/L [place] Creatinine [Mass/Vol] 0.72 mg/dL 0.5 - 0.9 mg/dL [place] GFR >60 >60 mL/min [place] GFR Non- >60 >60 mL/min [place] GFR/1.73 sq M predicted among non-blacks MDRD (S/P/Bld) [Vol rate/Area] NOT REPORTED [place] GFR/1.73 sq M predicted among non-blacks MDRD (S/P/Bld) [Vol rate/Area] [place] Comment on above: Average GFR for 60-6 9 years old: 85 mL/min/1.73sq m Chronic Kidney Disease: <60 mL/min/1.73sq m Kidney failure: <15 mL/min/1.73sq m eGFR calculated using average adult body mass. Additional eGFR calculator available at: http://www.PicApp.GroupCard/multiple_crcl_2012.htm Glucose [Mass/Vol] 97 mg/dL 70 - 99 mg/dL [place] Potassium [Moles/Vol] 4.3 mmol/L 3.7 - 5.3 mmol/L [place] Sodium [Moles/Vol] 140 mmol/L 135 - 144 mmol/L [place] Urea nitrogen [Mass/Vol] 18 mg/dL 8 - 23 mg/dL [place] CBC with DIFFon 10-05-2019 Basophils (Bld) [#/Vol] 0.10 10*3/uL [place] Basophils/100 WBC (Bld) 1 % 0 - 2 % [place] Differential Type NOT REPORTED [place] Eosinophils (Bld) [#/Vol] 0.50 10*3/uL [place] Eosinophils/100 WBC (Bld) 6 % High 0 - 4 % [place] Erythrocyte distribution width (RBC) [Ratio] 13.4 % 11.5 - 14.9 % [place] Hematocrit (Bld) [Volume fraction] 40.2 % 36 - 46 % [place] Hemoglobin (Bld) [Mass/Vol] 13.4 g/dL 12 - 16 g/dL [place] Interpretation and review of laboratory results Abnormal [place] Lymphocytes (Bld) [#/Vol] 2.50 10*3/uL [place] Lymphocytes/100 WBC (Bld) 30 % 24 - 44 % [place] MCH (RBC) [Entitic mass] 30.5 pg 26 - 34 pg [place] MCHC (RBC) [Mass/Vol] 33.3 g/dL 31 - 3 7 g/dL [place] MCV (RBC) [Entitic vol] 91.5 fL 80 - 100 fL [place] Monocytes (Bld) [#/Vol] 0.90 10*3/uL [place] Monocytes/100 WBC (Bld) 11 % High 1 - 7 % [place] Platelet mean volume (Bld) [Entitic vol] 6.9 fL 6 - 12 fL [facility] Platelets (Bld) [#/Vol] 407 10*3/uL [place] Platelets (Bld) [#/Vol] NOT REPORTED [place] RBC (Bld) [#/Vol] 4.39 10*6/uL 4 - 5.2 m/uL [facility] RBC morphology finding Nom (Bld) NOT REPORTED [facility] Segmented neutrophils/100 WBC (Bld) 52 % 36 - 66 % [place] Segs Absolute 4.20 [place] WBC (Bld) [#/Vol] NOT REPORTED per 100 WBC [place] WBC (Bld) [#/Vol] 8.1 10*3/uL [facility] WBC Morphology NOT REPORTED [facility] Otheron 10-05-2019 Immature granulocytes (Bld) [#/Vol] NOT REPORTED 0 % [place] XR CHEST PORTABLEon 10-05-19 20 EXAMINATION: [...] could better evaluate lung parenchyma if indicated. [place] Jose Antonio, Mhpn Incoming Radiant Results From [employer] - 10/05/2019 6:01 PM EDT EXAMINATION: ONE [...] base. Follow [facility] resolution [facility] Patchy airspace dise ase representing atelectasis or infiltrate in the right lung base. Follow up to resolution is suggested. [facility] CHEST PORTABLEon 09-15-19 20 Perihilar and suprahilar airspace opacities could represent interstitial edema versus developing airspace disease. Please correlate exam findings. Follow-up to assure resolution following medical treatment course recommended [facility]: ONE XRA Y VIEW OF THE CHEST 09/15/2019 5:51 pm COMPARISON: 08/25/2019 HISTORY: ORDERING SYSTEM PROVIDED HISTORY: cough TECHNOLOGIST PROVIDED HISTORY: cough Reason for Exam: cough Acuity: Unknown Type of Exam: Unknown FINDINGS: The cardiomediastinal silhouette is normal in size and contour. Perihilar edema. Patchy suprahilar airspace opacities.. No pleural effusion or pneumothorax is present. [facility] Jose Antonio, Mhpn Incoming Radiant Results From [employer] - 09/15/2019 6:05 PM EDT EXAMINATION: ONE [...] assure resolution following medical treatment course recommended [facility] CBC auto differentialon Basophils (Bld) [#/Vol] 0.00 10*3/uL [facility] Basophils/100 WBC (Bld) 0 % 0 - 2 % [place] Differential Type NOT REPORTED [place] Eosinophils (Bld) [#/Vol] 0.00 10*3/uL [place] Eosinophils/100 WBC (Bld) 0 % 0 - 4 % [place] Erythrocyte distribution width (RBC) [Ratio] 13.8 % 11.5 - 14.9 % [place] Hematocrit (Bld) [Volume fraction] 39.9 % 36 - 46 % [place] Hemoglobin (Bld) [Mass/Vol] 13.1 g/dL 12 - 16 g/dL [place] Interpretation and review of laboratory results Abnormal [place] Lymphocytes (Bld) [#/Vol] 1.00 10*3/uL [place] Lymphocytes/100 WBC (Bld) 8 % Low 24 - 44 % [place] MCH (RBC) [Entitic mass] 30.8 pg 26 - 34 pg [place] MCHC (RBC) [Mass/Vol] 32.9 g/dL 31 - 3 7 g/dL [place] MCV (RBC) [Entitic vol] 93.5 fL 80 - 100 fL [place] Monocytes (Bld) [#/Vol] 0.90 10*3/uL [place] Monocytes/100 WBC (Bld) 7 % 1 - 7 % [place] Platelet mean volume (Bld) [Entitic vol] 6.7 fL 6 - 12 fL [place] Platelets (Bld) [#/Vol] NOT REPORTED [place] Platelets (Bld) [#/Vol] 341 10*3/uL [place] RBC (Bld) [#/Vol] 4.27 10*6/uL 4 - 5.2 m/uL [place] RBC morphology finding Nom (Bld) NOT REPORTED [place] Segmented neutrophils/100 WBC (Bld) 85 % High 36 - 66 % [place] Segs Absolute 11.30 [place] WBC (Bld) [#/Vol] NOT REPORTED per 100 WBC [place] WBC (Bld) [#/Vol] 13.2 10*3/uL [place] WBC Morphology NOT REPORTED [place] Comprehensive Metabolic Pane l w/ Reflex to MGon 08-29-2019 Albumin [Mass/Vol] 3.3 g/dL Low 3.5 - 5.2 g/dL [place] Albumin/Globulin [Mass ratio] NOT REPORTED [place] ALP [Catalytic activity/Vol] 51 U/L 35 - 104 U/L [place] ALT [Catalytic activity/Vol] 28 U/L 5 - 33 U/L [place] Anion gap [Moles/Vol] 10 mmol/L 9 - 17 mmol/L [place] AST [Catalytic activity/Vol] 19 U/L <32 [place] Bilirubin Ql (U) 0.23 mg/dL Low 0.3 - 1.2 mg/dL [place] Bun/Cre Ratio NOT REPORTED [place] Calcium [Mass/Vol] 7.9 mg/dL Low 8.6 - 10. 4 mg/dL [place] Chloride [Moles/Vol] 104 mmol/L 98 - 10 7 mmol/L [place] CO2 [Moles/Vol] 28 mmol/L 20 - 31 mmol/L [place] Creatinine [Mass/Vol] 0.73 mg/dL 0.5 - 0.9 mg/dL [place] GFR >60 >60 mL/min [place] GFR Non- >60 >60 mL/min [place] GFR/1.73 sq M predicted among non-blacks MDRD (S/P/Bld) [Vol rate/Area] [place] Comment on above: Average GFR for 60-6 9 years old: 85 mL/min/1.73sq m Chronic Kidney Disease: <60 mL/min/1.73sq m Kidney failure: <15 mL/min/1.73sq m eGFR calculated using average adult body mass. Additional eGFR calculator available at: http://www.Strut/multiple_crcl_2012.htm GFR/1.73 sq M predicted among non-blacks MDRD (S/P/Bld) [Vol rate/Area] NOT REPORTED [place] Glucose [Mass/Vol] 125 mg/dL High 70 - 99 mg/dL [place] Interpretation and review of laboratory results Abnormal [place] Potassium [Moles/Vol] 4.5 mmol/L 3.7 - 5.3 mmol/L [place] Protein [Mass/Vol] 5.9 g/dL Low 6.4 - 8.3 g/dL [place] Sodium [Moles/Vol] 142 mmol/L 135 - 144 mmol/L [place] Urea nitrogen [Mass/Vol] 28 mg/dL High 8 - 23 mg/dL [place] Otheron 08-29-2019 Immature granulocytes (Bld) [#/Vol] NOT REPORTED [place] CBC auto differentialon Absolute Bands # 0.14 [place] Bands 1 % 0 - 10 % [place] Basophils (Bld) [#/Vol] 0.00 10*3/uL [place] Basophils/100 WBC (Bld) 0 % 0 - 2 % [place] Differential Type NOT REPORTED [place] Eosinophils (Bld) [#/Vol] 0.00 10*3/uL [place] Eosinophils/100 WBC (Bld) 0 % 0 - 4 % [place] Erythrocyte distribution width (RBC) [Ratio] 13.8 % 11.5 - 14.9 % [place] Hematocrit (Bld) [Volume fraction] 40.1 % 36 - 46 % [place] Hemoglobin (Bld) [Mass/Vol] 13.2 g/dL 12 - 16 g/dL [place] Interpretation and review of laboratory results Abnormal [place] Lymphocytes (Bld) [#/Vol] 0.85 10*3/uL [place] Lymphocytes/100 WBC (Bld) 6 % Low 24 - 44 % [place] MCH (RBC) [Entitic mass] 30.8 pg 26 - 34 pg [place] MCHC (RBC) [Mass/Vol] 32.9 g/dL 31 - 3 7 g/dL [place] MCV (RBC) [Entitic vol] 93.5 fL 80 - 100 fL [place] Monocytes (Bld) [#/Vol] 0.99 10*3/uL [place] Monocytes/100 WBC (Bld) 7 % 1 - 7 % [place] Morphology Den (Bld) [Interp] Normal [place] Platelet mean volume (Bld) [Entitic vol] 6.7 fL 6 - 12 fL [place] Platelets (Bld) [#/Vol] 339 10*3/uL [place] Platelets (Bld) [#/Vol] NOT REPORTED [place] RBC (Bld) [#/Vol] 4.29 10*6/uL 4 - 5.2 m/uL [place] RBC morphology finding Nom (Bld) NOT REPORTED [place] Segmented neutrophils/100 WBC (Bld) 86 % High 36 - 66 % [place] Segs Absolute 12.22 High [place] WBC (Bld) [#/Vol] 14.2 10*3/uL [place] WBC (Bld) [#/Vol] NOT REPORTED per 100 WBC [place] WBC Morphology NOT REPORTED [place] Comprehensive Metabolic Pane l w/ Reflex to [facility] 08-28-2019 Albumin [Mass/Vol] 3.5 g/dL 3.5 - 5.2 g/dL [place] Albumin/Globulin [Mass ratio] NOT REPORTED [place] ALP [Catalytic activity/Vol] 52 U/L 35 - 104 U/L [place] ALT [Catalytic activity/Vol] 17 U/L 5 - 33 U/L [place] Anion gap [Moles/Vol] 10 mmol/L 9 - 17 mmol/L [place] AST [Catalytic activity/Vol] 13 U/L <32 [place] Bilirubin Ql (U) 0.16 mg/dL Low 0.3 - 1.2 mg/dL [place] Bun/Cre Ratio NOT REPORTED [place] Calcium [Mass/Vol] 7.8 mg/dL Low 8.6 - 10. 4 mg/dL [place] Chloride [Moles/Vol] 104 mmol/L 98 - 10 7 mmol/L [place] CO2 [Moles/Vol] 29 mmol/L 20 - 31 mmol/L [place] Creatinine [Mass/Vol] 0.82 mg/dL 0.5 - 0.9 mg/dL [place] GFR >60 >60 mL/min [place] GFR Non- >60 >60 mL/min [place] GFR/1.73 sq M predicted among non-blacks MDRD (S/P/Bld) [Vol rate/Area] [place] Comment on above: Average GFR for 60-6 9 years old: 85 mL/min/1.73sq m Chronic Kidney Disease: <60 mL/min/1.73sq m Kidney failure: <15 mL/min/1.73sq m eGFR calculated using average adult body mass. Additional eGFR calculator available at: http://www.Strut/multiple_crcl_2012.htm GFR/1.73 sq M predicted among non-blacks MDRD (S/P/Bld) [Vol rate/Area] NOT REPORTED [place] Glucose [Mass/Vol] 153 mg/dL High 70 - 99 mg/dL [place] Interpretation and review of laboratory results Abnormal [place] Potassium [Moles/Vol] 4.4 mmol/L 3.7 - 5.3 mmol/L [place] Protein [Mass/Vol] 6.0 g/dL Low 6.4 - 8.3 g/dL [place] Sodium [Moles/Vol] 143 mmol/L 135 - 144 mmol/L [place] Urea nitrogen [Mass/Vol] 21 mg/dL 8 - 23 mg/dL [place] Otheron 08-28-2019 Immature granulocytes (Bld) [#/Vol] NOT REPORTED 0 % [place] Basic Metabolic Panel w/ Ref alvin to on 08-26-2019 Anion gap [Moles/Vol] 10 mmol/L 9 - 17 mmol/L [place] Bun/Cre Ratio NOT REPORTED [place] Calcium [Mass/Vol] 8.1 mg/dL Low 8.6 - 10. 4 mg/dL [place] Chloride [Moles/Vol] 104 mmol/L 98 - 10 7 mmol/L [place] CO2 [Moles/Vol] 26 mmol/L 20 - 31 mmol/L [place] Creatinine [Mass/Vol] 0.78 mg/dL 0.5 - 0.9 mg/dL [place] GFR >60 >60 mL/min [place] GFR Non- >60 >60 mL/min [place] GFR/1.73 sq M predicted among non-blacks MDRD (S/P/Bld) [Vol rate/Area] [place] Comment on above: Average GFR for 60-6 9 years old: 85 mL/min/1.73sq m Chronic Kidney Disease: <60 mL/min/1.73sq m Kidney failure: <15 mL/min/1.73sq m eGFR calculated using average adult body mass. Additional eGFR calculator available at: http://www.PicApp.GroupCard/multiple_crcl_2012.htm GFR/1.73 sq M predicted among non-blacks MDRD (S/P/Bld) [Vol rate/Area] NOT REPORTED [place] Glucose [Mass/Vol] 179 mg/dL High 70 - 99 mg/dL [place] Interpretation and review of laboratory results Abnormal [place] Potassium [Moles/Vol] 5.0 mmol/L 3.7 - 5.3 mmol/L [place] Sodium [Moles/Vol] 140 mmol/L 135 - 144 mmol/L [place] Urea nitrogen [Mass/Vol] 20 mg/dL 8 - 23 mg/dL [place] CBCon 08-26-2019 Erythrocyte distribution width (RBC) [Ratio] 13.8 % 11.5 - 14.9 % [place] Hematocrit (Bld) [Volume fraction] 41.6 % 36 - 46 % [place] Hemoglobin (Bld) [Mass/Vol] 14.1 g/dL 12 - 16 g/dL [place] MCH (RBC) [Entitic mass] 31.3 pg 26 - 34 pg [place] MCHC (RBC) [Mass/Vol] 33.9 g/dL 31 - 3 7 g/dL [place] MCV (RBC) [Entitic vol] 92.3 fL 80 - 100 fL [place] Platelet mean volume (Bld) [Entitic vol] 6.9 fL 6 - 12 fL [place] Platelets (Bld) [#/Vol] 316 10*3/uL [place] RBC (Bld) [#/Vol] 4.51 10*6/uL 4 - 5.2 m/uL [place] WBC (Bld) [#/Vol] 6.9 10*3/uL [place] WBC (Bld) [#/Vol] NOT REPORTED per 100 WBC [place] EKG 12 Leadon 08-26-2019 Atrial Rate 133 BPM [place] P [place] 44 degrees [place] P-R Interval 128 ms [place] Q-T Interval 282 ms [place] QRS Duration 84 ms [place] QTc Calculation (Bazett) 419 ms [place] R [place] 51 degrees [place] T [place] 16 degrees [place] Ventricular Rate 133 BPM [place] Sinus tachycardia Otherwise normal ECG No previous ECGs available [place] Jose Antonio, Mhpn Incoming E kg Results From [facility] [place] - 08/26/2019 9:03 AM EST Sinus tachycardia Otherwise normal ECG No previous ECGs available [place] APTTon 08-25-2019 aPTT Coag (Bld) [Time] 30.1 s [place] Comment on above: IV Heparin Therapy Range: 62.0-94.0 Amylaseon 08-25-2019 Amylase [Catalytic activity/Vol] 37 U/L 28 - 100 U/L [place] Basic Metabolic Panel w/ Ref alvin to MGon 08-25-2019 Anion gap [Moles/Vol] 11 mmol/L 9 - 17 mmol/L [place] Bun/Cre Ratio NOT REPORTED [place] Calcium [Mass/Vol] 8.6 mg/dL 8.6 - 10. 4 mg/dL [place] Chloride [Moles/Vol] 97 mmol/L Low 98 - 10 7 mmol/L [place] CO2 [Moles/Vol] 26 mmol/L 20 - 31 mmol/L [place] Creatinine [Mass/Vol] 0.81 mg/dL 0.5 - 0.9 mg/dL [place] GFR >60 >60 mL/min [place] GFR Non- >60 >60 mL/min [place] GFR/1.73 sq M predicted among non-blacks MDRD (S/P/Bld) [Vol rate/Area] NOT REPORTED [place] GFR/1.73 sq M predicted among non-blacks MDRD (S/P/Bld) [Vol rate/Area] [place] Comment on above: Average GFR for 60-6 9 years old: 85 mL/min/1.73sq m Chronic Kidney Disease: <60 mL/min/1.73sq m Kidney failure: <15 mL/min/1.73sq m eGFR calculated using average adult body mass. Additional eGFR calculator available at: http://www.PicApp.GroupCard/multiple_crcl_2012.htm Glucose [Mass/Vol] 121 mg/dL High 70 - 99 mg/dL [place] Potassium [Moles/Vol] 4.2 mmol/L 3.7 - 5.3 mmol/L [place] Sodium [Moles/Vol] 134 mmol/L Low 135 - 144 mmol/L [place] Urea nitrogen [Mass/Vol] 17 mg/dL 8 - 23 mg/dL [place] Brain Natriuretic Peptideon 08-25-2019 Natriuretic peptide B (Bld) [Mass/Vol] Pro-BNP Reference Range: [place] Comment on above: Rule Out: <300 [place] Zone: Age <50 300-450 Age 50-75 300-900 Age >75 300-1800 Usually represents mild to moderate HF but other cardiopulmonary causes cannot be ruled out. Rule In: Age <50 >450 Age 50-75 >900 Age >75 >1800 Natriuretic peptide B (Bld) [Mass/Vol] 42 pg/mL <300 [place] Comment on above: Pro-BNP results ridge ot be compared to BNP results. CBC Auto Differentialon Basophils (Bld) [#/Vol] 0.10 10*3/uL [place] Basophils/100 WBC (Bld) 1 % 0 - 2 % [place] Differential Type NOT REPORTED [place] Eosinophils (Bld) [#/Vol] 0.20 10*3/uL [place] Eosinophils/100 WBC (Bld) 2 % 0 - 4 % [place] Erythrocyte distribution width (RBC) [Ratio] 13.8 % 11.5 - 14.9 % [place] Hematocrit (Bld) [Volume fraction] 47.4 % High 36 - 46 % [place] Hemoglobin (Bld) [Mass/Vol] 15.7 g/dL 12 - 16 g/dL [place] Interpretation and review of laboratory results Abnormal [place] Lymphocytes (Bld) [#/Vol] 0.80 10*3/uL Low [place] Lymphocytes/100 WBC (Bld) 7 % Low 24 - 44 % [place] MCH (RBC) [Entitic mass] 30.6 pg 26 - 34 pg [place] MCHC (RBC) [Mass/Vol] 33.2 g/dL 31 - 3 7 g/dL [place] MCV (RBC) [Entitic vol] 92.0 fL 80 - 100 fL [place] Monocytes (Bld) [#/Vol] 0.50 10*3/uL [place] Monocytes/100 WBC (Bld) 4 % 1 - 7 % [place] Platelet mean volume (Bld) [Entitic vol] 7.2 fL 6 - 12 fL [place] Platelets (Bld) [#/Vol] NOT REPORTED [place] Platelets (Bld) [#/Vol] 363 10*3/uL [place] RBC (Bld) [#/Vol] 5.15 10*6/uL 4 - 5.2 m/uL [place] RBC morphology finding Nom (Bld) NOT REPORTED [place] Segmented neutrophils/100 WBC (Bld) 86 % High 36 - 66 % [place] Segs Absolute 10.40 High [place] WBC (Bld) [#/Vol] 12.0 10*3/uL [place] WBC (Bld) [#/Vol] NOT REPORTED per 100 WBC [place] WBC Morphology NOT REPORTED [place] Hepatic Function Panelon Albumin [Mass/Vol] 4 g/dL 3.5 - 5.2 g/dL [place] Albumin/Globulin [Mass ratio] NOT REPORTED [place] ALP [Catalytic activity/Vol] 67 U/L 35 - 104 U/L [place] ALT [Catalytic activity/Vol] 19 U/L 5 - 33 U/L [place] AST [Catalytic activity/Vol] 12 U/L <32 [place] Bilirubin Ql (U) 0.53 mg/dL 0.3 - 1.2 mg/dL [place] Bilirubin, Indirect 0.39 mg/dL 0 - 1 mg/dL [place] Bilirubin.direct [Mass/Vol] 0.14 mg/dL <0.31 [place] Globulin (S) [Mass/Vol] NOT REPORTED 1.5 - 3.8 g/dL [place] Protein [Mass/Vol] 7.4 g/dL 6.4 - 8.3 g/dL [place] Lipaseon 08-25-2019 Lipase [Catalytic activity/Vol] 12 U/L Low 13 - 60 U/L [place] Otheron 08-25-2019 Interpretation and review of laboratory results Abnormal [place] Immature granulocytes (Bld) [#/Vol] NOT REPORTED 0 % [place] Protime-INRon 08-25-2019 INR Coag (PPP) [Relative time] 1.1 {INR} [place] Comment on above: Non-therapeutic Range: INR = 0.9-1.2 Therapeutic Range: Moderate Anticoagulant Intensity: INR = 2.0-3.0 High Anticoagulant Intensity: INR = 2.5-3.5 PT Coag (PPP) [Time] 13.6 s [place] Rapid influenza A/B antigens on 08-25-2019 Direct Exam Negative [place] Direct Exam Positive Abnormal [place] Interpretation and review of laboratory results Abnormal [place] Special Requests NOT REPORTED [place] Specimen Description .NASOPHARYNGEAL SWAB [place] Troponinon 08-25-2019 Troponin I.cardiac [Mass/Vol] NOT REPORTED [place] Troponin T.cardiac [Mass/Vol] NOT REPORTED <0.03 ng/mL [place] Troponin, High Sensitivity 9 ng/L 0 - 14 ng/L [place] Comment on above: High Sensitivity Troponin [...] diaphragm. No evidence of acute osseous abnormality. [place] Jose Antonio, Mhpn Incoming Radiant Results From [facility] - 08/25/2019 4:43 PM EST EXAMINATION: ONE [...] vascular congestion. Interstitial edema appears slightly improved. [place] Unchanged mild cardiomegaly and vascular congestion. Interstitial edema appears slightly improved. [place] Basic Metabolic Profon 08-10 Anion gap [Moles/Vol] 11 mmol/L 9 - 17 mmol/L [place] Bun/Cre Ratio NOT REPORTED [place] Calcium [Mass/Vol] 7.7 mg/dL Low 8.6 - 10. 4 mg/dL [place] Chloride [Moles/Vol] 101 mmol/L 98 - 10 7 mmol/L [place] CO2 [Moles/Vol] 28 mmol/L 20 - 31 mmol/L [place] Creatinine [Mass/Vol] 0.75 mg/dL 0.5 - 0.9 mg/dL [place] GFR >60 >60 mL/min [place] GFR Non- >60 >60 mL/min [place] GFR/1.73 sq M predicted among non-blacks MDRD (S/P/Bld) [Vol rate/Area] [place] Comment on above: Average GFR for 60-6 9 years old: 85 mL/min/1.73sq m Chronic Kidney Disease: <60 mL/min/1.73sq m Kidney failure: <15 mL/min/1.73sq m eGFR calculated using average adult body mass. Additional eGFR calculator available at: http://www.Strut/multiple_crcl_2012.htm GFR/1.73 sq M predicted among non-blacks MDRD (S/P/Bld) [Vol rate/Area] NOT REPORTED [place] Glucose [Mass/Vol] 162 mg/dL High 70 - 99 mg/dL [place] Interpretation and review of laboratory results Abnormal [place] Potassium [Moles/Vol] 4.1 mmol/L 3.7 - 5.3 mmol/L [place] Sodium [Moles/Vol] 140 mmol/L 135 - 144 mmol/L [place] Urea nitrogen [Mass/Vol] 29 mg/dL High 8 - 23 mg/dL [place] CBCon 08-10-2019 Erythrocyte distribution width (RBC) [Ratio] 13.4 % 11.5 - 14.9 % [place] Hematocrit (Bld) [Volume fraction] 41.6 % 36 - 46 % [place] Hemoglobin (Bld) [Mass/Vol] 13.9 g/dL 12 - 16 g/dL [place] Interpretation and review of laboratory results Abnormal [place] MCH (RBC) [Entitic mass] 31.1 pg 26 - 34 pg [place] MCHC (RBC) [Mass/Vol] 33.4 g/dL 31 - 3 7 g/dL [place] MCV (RBC) [Entitic vol] 93.2 fL 80 - 100 fL [place] Platelet mean volume (Bld) [Entitic vol] 7.6 fL 6 - 12 fL [place] Platelets (Bld) [#/Vol] 326 10*3/uL [place] RBC (Bld) [#/Vol] 4.46 10*6/uL 4 - 5.2 m/uL [place] WBC (Bld) [#/Vol] NOT REPORTED per 100 WBC [place] WBC (Bld) [#/Vol] 13.2 10*3/uL [place] XR CHEST STANDARD (2 VW)on 0 [...] the costophrenic angles on the lateral view. [place] Jose Antonio, Mhpn Incoming Radiant Results From [facility] - 08/10/2019 9:50 AM EST EXAMINATION: TWO [...] radiographic follow-up is recommended to ensure clearance. [place] Cardiomegaly with mi ld vascular congestion noted concerning for mild interstitial pulmonary edema. This is new from the previous exam and continued radiographic follow-up is recommended to ensure clearance. [place] Basic Metabolic Profon 08-09 Anion gap [Moles/Vol] 11 mmol/L 9 - 17 mmol/L [place] Bun/Cre Ratio NOT REPORTED [facility] [place] Calcium [Mass/Vol] 7.6 mg/dL Low 8.6 - 10. 4 mg/dL [place] Chloride [Moles/Vol] 100 mmol/L 98 - 10 7 mmol/L [place] CO2 [Moles/Vol] 28 mmol/L 20 - 31 mmol/L [place] Creatinine [Mass/Vol] 0.86 mg/dL 0.5 - 0.9 mg/dL [place] GFR >60 >60 mL/min [place] GFR Non- >60 >60 mL/min [place] GFR/1.73 sq M predicted among non-blacks MDRD (S/P/Bld) [Vol rate/Area] NOT REPORTED [place] GFR/1.73 sq M predicted among non-blacks MDRD (S/P/Bld) [Vol rate/Area] [place] Comment on above: Average GFR for 60-6 9 years old: 85 mL/min/1.73sq m Chronic Kidney Disease: <60 mL/min/1.73sq m Kidney failure: <15 mL/min/1.73sq m eGFR calculated using average adult body mass. Additional eGFR calculator available at: http://www.Strut/multiple_crcl_2012.htm Glucose [Mass/Vol] 140 mg/dL High 70 - 99 mg/dL [place] Interpretation and review of laboratory results Abnormal [place] Potassium [Moles/Vol] 4.5 mmol/L 3.7 - 5.3 mmol/L [place] Sodium [Moles/Vol] 139 mmol/L 135 - 144 mmol/L [place] Urea nitrogen [Mass/Vol] 29 mg/dL High 8 - 23 mg/dL [place] CBCon 08-09-2019 Erythrocyte distribution width (RBC) [Ratio] 13.6 % 11.5 - 14.9 % [place] Hematocrit (Bld) [Volume fraction] 40.1 % 36 - 46 % [place] Hemoglobin (Bld) [Mass/Vol] 13.5 g/dL 12 - 16 g/dL [place] Interpretation and review of laboratory results Abnormal [place] MCH (RBC) [Entitic mass] 31.2 pg 26 - 34 pg [place] MCHC (RBC) [Mass/Vol] 33.7 g/dL 31 - 3 7 g/dL [place] MCV (RBC) [Entitic vol] 92.6 fL 80 - 100 fL [place] Platelet mean volume (Bld) [Entitic vol] 7.3 fL 6 - 12 fL [place] Platelets (Bld) [#/Vol] 334 10*3/uL [place] RBC (Bld) [#/Vol] 4.34 10*6/uL 4 - 5.2 m/uL [place] WBC (Bld) [#/Vol] 15.9 10*3/uL [place] WBC (Bld) [#/Vol] NOT REPORTED per 100 WBC [place] Fungal stainon 08-09-2019 Direct Exam NO FUNGAL ELEMENTS SEEN [place] Special Requests NOT REPORTED [place] Specimen Description .BRONCHIAL WASHINGS [place] Otheron 08-09-2019 Direct Exam Positive Abnormal [place] Respiratory Cultureon 2019 Culture NORMAL RESPIRATORY CHERYL HEAVY GROWTH [place] Direct Exam FEW NEUTROPHILS Abnormal [place] Interpretation and review of laboratory results Abnormal [place] Special Requests NOT REPORTED [place] Specimen Description .BRONCHIAL WASHINGS [place] Surgical Pathologyon 020 Surgical Pathology Report [id number] [place], [place] [address] SURGICAL PATHOLOGY REPORT Patient Name: CAMERON US MR#: [id number] Specimen #[id number] Final Diagnosis Parts A & B. Lungs, [...] fluid. Approximately 3 ml are sent to [place] for ThinPrep. Two smears and two cytospin preparations are made. Specimen B : The entire specimen is centrifuged for cell block. The volume of sediment is 0.5 cc. It is submitted for cell block preparation. Microscopic Description Five cytology and two H&E cell block slides reviewed. Microscopic examination performed and supports the diagnostic impression. [place] Basic Metabolic Profon 08-08 Anion gap [Moles/Vol] 8 mmol/L Low 9 - 17 mmol/L [place] Bun/Cre Ratio NOT REPORTED [place] Calcium [Mass/Vol] 8.0 mg/dL Low 8.6 - 10. 4 mg/dL [place] Chloride [Moles/Vol] 106 mmol/L 98 - 10 7 mmol/L [place] CO2 [Moles/Vol] 26 mmol/L 20 - 31 mmol/L [place] Creatinine [Mass/Vol] 0.75 mg/dL 0.5 - 0.9 mg/dL [place] GFR >60 >60 mL/min [place] GFR Non- >60 >60 mL/min [place] GFR/1.73 sq M predicted among non-blacks MDRD (S/P/Bld) [Vol rate/Area] NOT REPORTED [place] GFR/1.73 sq M predicted among non-blacks MDRD (S/P/Bld) [Vol rate/Area] [place] Comment on above: Average GFR for 60-6 9 years old: 85 mL/min/1.73sq m Chronic Kidney Disease: <60 mL/min/1.73sq m Kidney failure: <15 mL/min/1.73sq m eGFR calculated using average adult body mass. Additional eGFR calculator available at: http://www.PicApp.GroupCard/multiple_crcl_2012.htm Glucose [Mass/Vol] 154 mg/dL High 70 - 99 mg/dL [place] Interpretation and review of laboratory results Abnormal [place] Potassium [Moles/Vol] 5.1 mmol/L 3.7 - 5.3 mmol/L [place] Sodium [Moles/Vol] 140 mmol/L 135 - 144 mmol/L [place] Urea nitrogen [Mass/Vol] 32 mg/dL High 8 - 23 mg/dL [place] Body fluid cell counton 07-23 Appearance, Fluid [facility] [place] Color, Fluid PALE YELLOW [place] RBC, Fluid 294 /mm3 [place] Specimen type Nom (Spec) .BRONCHIAL WASHINGS [place] WBC, Fluid 113 /mm3 [place] CBCon 08-08-2019 Erythrocyte distribution width (RBC) [Ratio] 13.5 % 11.5 - 14.9 % [place] Hematocrit (Bld) [Volume fraction] 42.1 % 36 - 46 % [place] Hemoglobin (Bld) [Mass/Vol] 14.0 g/dL 12 - 16 g/dL [place] Interpretation and review of laboratory results Abnormal [place] MCH (RBC) [Entitic mass] 30.7 pg 26 - 34 pg [place] MCHC (RBC) [Mass/Vol] 33.2 g/dL 31 - 3 7 g/dL [place] MCV (RBC) [Entitic vol] 92.4 fL 80 - 100 fL [place] Platelet mean volume (Bld) [Entitic vol] 7.2 fL 6 - 12 fL [place] Platelets (Bld) [#/Vol] 355 10*3/uL [place] RBC (Bld) [#/Vol] 4.55 10*6/uL 4 - 5.2 m/uL [place] WBC (Bld) [#/Vol] 18.5 10*3/uL [place] WBC (Bld) [#/Vol] NOT REPORTED per 100 WBC [place] Differential, Body Fluidon 0 08-08-2019 Basos, Fluid 0 % [place] Eos, Fluid 7 % High 0 [place] Fluid Diff Comment TO BE REVIEWED BY PATHOLOGIST [place] Comment on above: Reviewed by patholog ist: Justin Chambers D.O. SLIDE REVIEWED. MACROPHAGES, NEUTROPHILS WITH RARE LYMPHOCYTES AND EOSINOPHIILS NOTED. Interpretation and review of laboratory results Abnormal [place] Lymphocytes, Body Fluid 7 % High 0 [place] Monocyte Count, Fluid 40 % High 0 [place] Neutrophil Count, Fluid 46 % High 0 [place] Other Cells, Fluid 0 % [place] Basic Metabolic Profon 08-07 Anion gap [Moles/Vol] 11 mmol/L 9 - 17 mmol/L [place] Bun/Cre Ratio NOT REPORTED [place] Calcium [Mass/Vol] 8.1 mg/dL Low 8.6 - 10. 4 mg/dL [place] Chloride [Moles/Vol] 105 mmol/L 98 - 10 7 mmol/L [place] CO2 [Moles/Vol] 24 mmol/L 20 - 31 mmol/L [place] Creatinine [Mass/Vol] 0.93 mg/dL High 0.5 - 0.9 mg/dL [place] GFR >60 >60 mL/min [place] GFR Non- >60 >60 mL/min [place] GFR/1.73 sq M predicted among non-blacks MDRD (S/P/Bld) [Vol rate/Area] NOT REPORTED [place] GFR/1.73 sq M predicted among non-blacks MDRD (S/P/Bld) [Vol rate/Area] [place] Comment on above: Average GFR for 60-6 9 years old: 85 mL/min/1.73sq m Chronic Kidney Disease: <60 mL/min/1.73sq m Kidney failure: <15 mL/min/1.73sq m eGFR calculated using average adult body mass. Additional eGFR calculator available at: http://www.globalrph.GroupCard/multiple_crcl_2012.htm Glucose [Mass/Vol] 172 mg/dL High 70 - 99 mg/dL [place] Interpretation and review of laboratory results Abnormal [place] Potassium [Moles/Vol] 5.1 mmol/L 3.7 - 5.3 mmol/L [place] Sodium [Moles/Vol] 140 mmol/L 135 - 144 mmol/L [place] Urea nitrogen [Mass/Vol] 26 mg/dL High 8 - 23 mg/dL [place] CBCon 08-07-2019 Erythrocyte distribution width (RBC) [Ratio] 13.8 % 11.5 - 14.9 % [place] Hematocrit (Bld) [Volume fraction] 42.8 % 36 - 46 % [place] Hemoglobin (Bld) [Mass/Vol] 14.1 g/dL 12 - 16 g/dL [place] Interpretation and review of laboratory results Abnormal [place] MCH (RBC) [Entitic mass] 30.8 pg 26 - 34 pg [place] MCHC (RBC) [Mass/Vol] 33.0 g/dL 31 - 3 7 g/dL [place] MCV (RBC) [Entitic vol] 93.1 fL 80 - 100 fL [place] Platelet mean volume (Bld) [Entitic vol] 7.5 fL 6 - 12 fL [place] Platelets (Bld) [#/Vol] 367 10*3/uL [place] RBC (Bld) [#/Vol] 4.59 10*6/uL 4 - 5.2 m/uL [place] WBC (Bld) [#/Vol] 20.0 10*3/uL [place] WBC (Bld) [#/Vol] NOT REPORTED per 100 WBC [place] Basic Metabolic Profon 08-06 Anion gap [Moles/Vol] 10 mmol/L 9 - 17 mmol/L [place] Bun/Cre Ratio NOT REPORTED [place] Calcium [Mass/Vol] 8.2 mg/dL Low 8.6 - 10. 4 mg/dL [place] Chloride [Moles/Vol] 102 mmol/L 98 - 10 7 mmol/L [place] CO2 [Moles/Vol] 25 mmol/L 20 - 31 mmol/L [place] Creatinine [Mass/Vol] 0.75 mg/dL 0.5 - 0.9 mg/dL [place] GFR >60 >60 mL/min [place] GFR Non- >60 >60 mL/min [place] GFR/1.73 sq M predicted among non-blacks MDRD (S/P/Bld) [Vol rate/Area] [place] Comment on above: Average GFR for 60-6 9 years old: 85 mL/min/1.73sq m Chronic Kidney Disease: <60 mL/min/1.73sq m Kidney failure: <15 mL/min/1.73sq m eGFR calculated using average adult body mass. Additional eGFR calculator available at: http://www.Strut/multiple_crcl_2012.htm GFR/1.73 sq M predicted among non-blacks MDRD (S/P/Bld) [Vol rate/Area] NOT REPORTED [place] Glucose [Mass/Vol] 166 mg/dL High 70 - 99 mg/dL [place] Interpretation and review of laboratory results Abnormal [place] Potassium [Moles/Vol] 4.1 mmol/L 3.7 - 5.3 mmol/L [place] Sodium [Moles/Vol] 137 mmol/L 135 - 144 mmol/L [place] Urea nitrogen [Mass/Vol] 21 mg/dL 8 - 23 mg/dL [place] CBCon 08-06-2019 Erythrocyte distribution width (RBC) [Ratio] 13.5 % 11.5 - 14.9 % [place] Hematocrit (Bld) [Volume fraction] 43.2 % 36 - 46 % [place] Hemoglobin (Bld) [Mass/Vol] 14.5 g/dL 12 - 16 g/dL [place] MCH (RBC) [Entitic mass] 31.1 pg 26 - 34 pg [place] MCHC (RBC) [Mass/Vol] 33.5 g/dL 31 - 3 7 g/dL [place] MCV (RBC) [Entitic vol] 92.7 fL 80 - 100 fL [place] Platelet mean volume (Bld) [Entitic vol] 7.2 fL 6 - 12 fL [place] Platelets (Bld) [#/Vol] 366 10*3/uL [place] RBC (Bld) [#/Vol] 4.66 10*6/uL 4 - 5.2 m/uL [place] WBC (Bld) [#/Vol] NOT REPORTED per 100 WBC [place] WBC (Bld) [#/Vol] 7.9 10*3/uL [place] Basic Metabolic Panelon 07-23 Anion gap [Moles/Vol] 14 mmol/L 9 - 17 mmol/L [place] Bun/Cre Ratio NOT REPORTED [place], [place] Calcium [Mass/Vol] 8.6 mg/dL 8.6 - 10. 4 mg/dL [place] Chloride [Moles/Vol] 102 mmol/L 98 - 10 7 mmol/L [place] CO2 [Moles/Vol] 25 mmol/L 20 - 31 mmol/L [place] Creatinine [Mass/Vol] 0.85 mg/dL 0.5 - 0.9 mg/dL [place] GFR >60 >60 mL/min [place] GFR Non- >60 >60 mL/min [place] GFR/1.73 sq M predicted among non-blacks MDRD (S/P/Bld) [Vol rate/Area] [place] Comment on above: Average GFR for 60-6 9 years old: 85 mL/min/1.73sq m Chronic Kidney Disease: <60 mL/min/1.73sq m Kidney failure: <15 mL/min/1.73sq m eGFR calculated using average adult body mass. Additional eGFR calculator available at: http://www.PicApp.GroupCard/multiple_crcl_2012.htm GFR/1.73 sq M predicted among non-blacks MDRD (S/P/Bld) [Vol rate/Area] NOT REPORTED [place] Glucose [Mass/Vol] 97 mg/dL 70 - 99 mg/dL [place] Potassium [Moles/Vol] 4.5 mmol/L 3.7 - 5.3 mmol/L [place] Sodium [Moles/Vol] 141 mmol/L 135 - 144 mmol/L [place] Urea nitrogen [Mass/Vol] 19 mg/dL 8 - 23 mg/dL [place] CBC Auto Differentialon 07-23 Basophils (Bld) [#/Vol] 0.10 10*3/uL [place] Basophils/100 WBC (Bld) 1 % 0 - 2 % [place] Differential Type NOT REPORTED [place] Eosinophils (Bld) [#/Vol] 0.80 10*3/uL [place] Eosinophils/100 WBC (Bld) 9 % High 0 - 4 % [place] Erythrocyte distribution width (RBC) [Ratio] 13.2 % 11.5 - 14.9 % [place] Hematocrit (Bld) [Volume fraction] 46.8 % High 36 - 46 % [place] Hemoglobin (Bld) [Mass/Vol] 15.6 g/dL 12 - 16 g/dL [place] Interpretation and review of laboratory results Abnormal [place] Lymphocytes (Bld) [#/Vol] 2.70 10*3/uL [place] Lymphocytes/100 WBC (Bld) 30 % 24 - 44 % [place] MCH (RBC) [Entitic mass] 31.1 pg 26 - 34 pg [place] MCHC (RBC) [Mass/Vol] 33.4 g/dL 31 - 3 7 g/dL [place] MCV (RBC) [Entitic vol] 93.1 fL 80 - 100 fL [place] Monocytes (Bld) [#/Vol] 0.70 10*3/uL [place] Monocytes/100 WBC (Bld) 8 % High 1 - 7 % [place] Platelet mean volume (Bld) [Entitic vol] 7.0 fL 6 - 12 fL [place] Platelets (Bld) [#/Vol] NOT REPORTED [place] Platelets (Bld) [#/Vol] 396 10*3/uL [place] RBC (Bld) [#/Vol] 5.02 10*6/uL 4 - 5.2 m/uL [place] RBC morphology finding Nom (Bld) NOT REPORTED [place] Segmented neutrophils/100 WBC (Bld) 52 % 36 - 66 % [place] Segs Absolute 4.80 [place] WBC (Bld) [#/Vol] NOT REPORTED per 100 WBC [place] WBC (Bld) [#/Vol] 9.2 10*3/uL [place] WBC Morphology NOT REPORTED [place] D-Dimer, Quantitativeon 07-23 D-Dimer, Quant <0.27 [place], [place] Comment on above: When combined with [...] 08-05-2019 Immature granulocytes (Bld) [#/Vol] NOT REPORTED [place] [facility] Procalcitoninon 08-05-2019 Procalcitonin 0.06 ng/mL <0.09 [facility] [place] Comment on above: Suspected Sepsis: 0.09-0.49 ng/mL [...] entered into the Change in Procalcitonin Calculator ([email or web address]) to determine the patient's Mortality Risk Prognosis XR CHEST PORTABLEon 08-05-19 20 Jose Antonio, pn Incoming Radiant Results From [employer] - 08/05/2019 3:07 PM EST EXAMINATION: ONE [...] identified. IMPRESSION: No acute airspace disease identified. [facility] [place] EXAMINATION: ONE XRA Y VIEW OF THE CHEST 08/05/2019 2:02 pm COMPARISON: None. HISTORY: ORDERING SYSTEM PROVIDED HISTORY: Chest Pain TECHNOLOGIST PROVIDED HISTORY: Chest Pain Reason for Exam: CHEST PAIN Acuity: Unknown Type of Exam: Unknown FINDINGS: Mild cardiac silhouette enlargement. Generalized interstitial prominence without consolidation, pneumothorax or evidence for edema. No effusion. No acute osseous abnormality identified. [place], [place] No acute airspace disease identified. [place], [place] Glucose, Fastingon 9 Glucose [Mass/Vol] 93 mg/dL Normal 70-99 [facility] Comment on above: Performed By: #### G LUF, LIPRF, TSH #### [employer] [address] [place] [address] [phone] Manager Appointment: Beau Troncoso MD Glucose [Mass/Vol] 93 mg/dL 70 - 99 mg/dL [place], [place] Lipid Prof, Fastingon 2018 Cholesterol [Mass/Vol] 275 mg/dL High <200 [facility] Comment on above: Result Comment: Cholesterol Guidelines: <200 Desirable 200-240 Borderline >240 Undesirable Performed By: #### G LUF, LIPRF, TSH #### [facility] [employer] [address] [place] [address] [phone] Manager Appointment: Beau Troncoso MD Cholesterol in HDL [Mass/Vol] 48 mg/dL Normal >40 [facility] Comment on above: Result Comment: HDL Guidelines: <40 Undesirable 40-59 Borderline >59 Desirable Performed By: #### G LUF, LIPRF, TSH #### [employer] [address] [place] [address] [phone] Manager Appointment: Beau Troncoso MD Cholesterol in LDL [Mass/Vol] 196 mg/dL High 0-130 [facility] Comment on above: Result Comment: LDL Guidelines: <100 Desirable 100-129 Near to/above Desirable 130-159 Borderline >159 Undesirable Direct (measured) LDL and calculated LDL are not interchangeable tests. Performed By: #### G LUF, LIPRF, TSH #### [employer] [address] [place] [address] [phone] Manager Appointment: Beau Troncoso MD Cholesterol.total/Chol esterol in HDL [Mass ratio] 5.7 {ratio} High <5 [facility] Comment on above: Performed By: #### CHUCK CLAY, TSH #### [employer] [address] [place], [place] [phone] Manager Appointment: Beau Troncoso MD Triglyceride,Fasting 153 mg/dL High <150 [facility] Comment on above: Result Comment: Triglyceride Guidelines: <150 Desirable 150-199 Borderline 200-499 High >499 Very high Based on AHA Guidelines for fasting triglyceride, March 2012. Performed By: #### CHUCK CLAY, TSH #### [facility] [address] [place], [place] [phone] Manager Appointment: Beau Troncoso MD Cholesterol in VLDL [Mass/Vol] NOT REPORTED Normal 1-30 [facility] Comment on above: Performed By: #### CHUCK CLAY, TSH #### [facility] [address] [place] [address] [phone] Manager Appointment: Beau Troncoso MD Lipid, Fastingon 05-11-2019 Cholesterol [Mass/Vol] 275 mg/dL High <200 [place] Comment on above: Cholesterol Guidelines: <200 Desirable 200-240 Borderline >240 Undesirable Cholesterol in HDL [Mass/Vol] 48 mg/dL >40 [place] Comment on above: HDL Guidelines: <40 Undesirable 40-59 Borderline >59 Desirable Cholesterol in LDL [Mass/Vol] 196 mg/dL High 0 - 130 mg/dL [place] Comment on above: LDL Guidelines: <100 Desirable 100-129 Near to/above Desirable 130-159 Borderline >159 Undesirable Direct (measured) LDL and calculated LDL are not interchangeable tests. Cholesterol in VLDL [Mass/Vol] NOT REPORTED High 1 - 30 mg/dL [place] Cholesterol.total/Chol esterol in HDL [Mass ratio] 5.7 {ratio} High <5 [place] Interpretation and review of laboratory results Abnormal [place] Triglyceride, Fasting 153 mg/dL High <150 [place] Comment on above: Triglyceride Guidelines: <150 Desirable 150-199 Borderline 200-499 High >499 Very high Based on AHA Guidelines for fasting triglyceride, March 2012. TSHon 05-11-2019 Interpretation and review of laboratory results Abnormal [place] TSH Qn 25.72 m[IU]/L [place] Thyroid Stim. Horm.on 2018 TSH Qn 25.72 m[IU]/L High 0.30-5.00 [facility] Comment on above: Performed By: #### G LUF, LIPRF, TSH #### [facility] [address] [place] [address] Manager Appointment: Beau Troncoso MD Vital Signs Date Time Vital Sign Value Performing Clinician Facility 07-30-2023 10:47-0500 Body height 172.7 cm [employer] ([employer]) Work Phone: [facility] 07-30-2023 10:47-0500 Body mass index (BMI) [Ratio] 36.74 kg/m2 [facility] ([employer]) [facility] 07-30-2023 10:47-0500 Body temperature 98.1 [degF] [employer] ([employer]) Work Phone: [facility] 07-30-2023 10:47-0500 Body weight 109.59 kg [employer] ([employer]) Work Phone: [facility] [employer] [facility] 07-30-2023 10:47-0500 Diastolic blood pressure 80 mm[Hg] [employer] ([employer]) [facility] 07-30-2023 10:47-0500 Heart rate 89 /min [employer] (app) Work Phone: [facility] 07-30-2023 10:47-0500 SaO2% (BldA) [Mass fraction] 95 % [employer] ([employer]) Work Phone: [facility] 07-30-2023 10:47-0500 Systolic blood pressure 130 mm[Hg] Louie Paul [employer] Work Phone: [facility] 11-22-2020 12:40-0400 Respiratory rate 29 /min Heena John MD [employer] Phone: 11-22-2020 12:40-0400 SaO2% (BldA) [Mass fraction] 100 % Heena John MD [employer] Phone: 11-22-2020 12:30-0400 Diastolic blood pressure 58 mm[Hg] Heena John MD [employer] Phone: 11-22-2020 12:30-0400 Heart rate 85 /min Heena John MD [employer] Phone: 11-22-2020 12:30-0400 Systolic blood pressure 108 mm[Hg] Heena John MD [employer] Phone: 11-22-2020 12:09-0400 Body height 175.3 cm Heena John MD [employer] Phone: 11-22-2020 12:09-0400 Body mass index (BMI) [Ratio] 33.97 kg/m2 Heena John MD [employer] Phone: 11-22-2020 12:09-0400 Body temperature 97.3 [degF] Heena John MD [employer] Phone: 11-22-2020 12:09-0400 Body weight 104.33 kg Heena John MD [employer] Phone: 11-02-2019 13:15-0400 BP Diastolic 61 mm[Hg] [employer] , [place] 11-02-2019 13:15-0400 BP Systolic 118 mm[Hg] [employer] [place] 11-02-2019 13:15-0400 Pulse (Heart Rate) 87 /min Warren [employer] [place] 11-02-2019 13:15-0400 Pulse Oximetry 97 % [facility] [place] 11-02-2019 13:15-0400 Respiratory Rate 17 /min [facility] [place] 11-02-2019 10:12-0400 BMI (Body Mass Index) 29.53 kg/m2 Warren Holm [facility], [place] 11-02-2019 10:12-0400 Body Temperature 98.91 [degF] [facility] [place] 11-02-2019 10:12-0400 Body weight 90.72 kg [facility] [place] 10-08-2019 11:51-0400 Pulse Oximetry 98 % Forest [facility] , [place] 10-08-2019 11:51-0400 Respiratory Rate 12 /min Forest Childs [facility], [place] 10-08-2019 08:42-0400 Body Temperature 98.1 [degF] [facility] [place] 10-08-2019 08:42-0400 BP Diastolic 70 mm[Hg] [facility] , [place] 10-08-2019 08:42-0400 BP Systolic 137 mm[Hg] [facility] , [place] 10-08-2019 08:42-0400 Pulse (Heart Rate) 99 /min [facility], [place] 10-08-2019 06:30-0400 BMI (Body Mass Index) 32.43 kg/m2 [facility] [place] 10-08-2019 06:30-0400 Body [facility] [place] 10-05-2019 18:01-0400 Height [facility].3 [facility] [place] 09-15-2019 18:31-0400 Body Temperature 98.91 [degF] [facility] [place] 09-15-2019 18:31-0400 BP Diastolic 63 mm[Hg] [facility] , [place] 09-15-2019 18:31-0400 BP Systolic 133 mm[Hg] [facility] , [place] 09-15-2019 18:31-0400 Pulse (Heart Rate) 101 /min Levy [facility] 09-15-2019 18:31-0400 Pulse Oximetry 93 % Levy [facility] , [place] 09-15-2019 18:31-0400 Respiratory Rate 18 /min [facility] [place] 09-15-2019 17:26-0400 BMI (Body Mass Index) 32.19 kg/m2 [facility] [place] [place] 09-15-2019 17:26-0400 Body weight 98.88 kg Levy [facility] , [place] 08-29-2019 15:11-0400 Pulse Oximetry 95 % Jacob [facility] , [place] 08-29-2019 14:42-0400 Body Temperature 98.29 [degF] [facility] [place] 08-29-2019 14:42-0400 BP Diastolic 65 mm[Hg] [facility] , [place] 08-29-2019 14:42-0400 BP Systolic 133 mm[Hg] [facility] , [place] 08-29-2019 14:42-0400 Pulse (Heart Rate) 84 /min [facility] 08-29-2019 14:42-0400 Respiratory Rate 16 /min Jacob [facility], [place] 08-29-2019 06:34-0400 BMI (Body Mass Index) 32.17 kg/m2 Jacob Granado [facility] 08-29-2019 06:34-0400 Body weight 98.8 kg Jacob [facility] [place] 08-25-2019 15:11-0500 Height 175.3 cm [facility] [place] 08-10-2019 14:26-0500 Body Temperature 97.2 [degF] Heena John [facility] 08-10-2019 14:26-0500 BP Diastolic 81 mm[Hg] Heena John [facility] [place] , [place] 08-10-2019 14:26-0500 BP Systolic 159 mm[Hg] Heena John [facility] [place] , [place] 08-10-2019 14:26-0500 Pulse (Heart Rate) 86 /min Heena John [facility], [place] 08-10-2019 14:26-0500 Pulse Oximetry 94 % Heena [facility] , [place] 08-10-2019 14:26-0500 Respiratory Rate 16 /min Heena Holm [facility], [place] 08-07-2019 06:00-0500 BMI (Body Mass Index) 31.58 kg/m2 Heena Holm [facility] 08-07-2019 06:00-0500 Body weight 97 kg Heena John [facility] , [place] 08-05-2019 16:57-0500 Height 175.3 cm Heena John [facility] [place] Encounters Encounter Date Encounter Type Care Provider Facility Start: 11-23-2023 End: 11-23-2023 ambulatory [facility] Start: 10-26-2023 End: 10-27-2023 ambulatory Belle Monet MD Facility: Dat Start: 08-31-2023 End: 09-01-2023 ambulatory Belle Monet MD Facility: Dat Start: 08-25-2023 [facility] Start: 08-10-2023 End: 08-11-2023 ambulatory Belle Monet MD Facility: Dat Start: 08-03-2023 End: 08-04-2023 ambulatory Belle Monet MD Facility: Dat Start: 07-30-2023 End: 07-30-2023 Office outpatient visit 25 minutes Louie Paul DO Work Phone: [facility] - [facility] Comment on above: Chronic obstructive pulmonary disease, unspecified COPD type ([facility]) (Primary Dx); Right-sided low back pain without sciatica, unspecified chronicity; Postoperative hypothyroidism; Obstructive sleep apnea Start: 07-30-2023 End: 07-30-2023 ambulatory [place] [facility] Start: 07-19-2023 Refill Louie villa DO Work Phone: [facility] Comment on above: Acute exacerbation o f chronic obstructive pulmonary disease (COPD) ([facility]) Start: 07-14-2023 Refill Louie villa DO Work Phone: [facility] - Family Medicine [...] 11-22-2020 Emergency department patient visit CADEN Muhammad [facility] Start: 11-22-2020 End: 11-22-2020 Emergency department patient visit Heena John MD [facility] ED Comment on above: COPD exacerbation (H CC) (Primary Dx) Start: 04-18-2020 End: 04-21-2020 [facility] Start: 04-16-2020 End: 04-17-2020 Patient encounter procedure NAJMA [facility] Start: 04-16-2020 End: 04-16-2020 Subsequent hospital visit by physician Caden [facility] Comment on above: Dizziness; Polydipsia Start: 03-23-2020 End: 03-26-2020 ambulatory ENFRANSISCO O CORA [facility] Start: 03-23-2020 End: 03-25-2020 Subsequent hospital visit by physician [facility] Mri Rm 119 [facility] MRI Comment on above: Osteoarthritis of ri ght acromioclavicular joint Start: 11-02-2019 End: 11-02-2019 Emergency department patient visit Warren Olivas Work Phone: [facility] ED Comment on above: COPD exacerbation (H CC) (Primary Dx) Start: 10-05-2019 End: 10-08-2019 Evaluation and management of inpatient Forest Childs Work Phone: [facility] Progressive Care Comment on above: COPD exacerbation (H CC) (Primary Dx); Acute respiratory failure with hypoxia (HCC) Start: 09-15-2019 End: 09-15-2019 Emergency department patient visit Levy Felix Work Phone: [facility] ED Comment on above: Cough (Primary Dx); Abnormal CXR; Viral URI Start: 08-25-2019 End: 08-29-2019 Evaluation and management of inpatient Jacob Granado Work Phone: [facility] Med Surg Comment on above: COPD exacerbation (H CC) (Primary Dx); Influenza with respiratory manifestation other than pneumonia; COPD with acute exacerbation (HCC) Start: 08-05-2019 End: 08-10-2019 Evaluation and management of inpatient Heena CEBALLOS Med Surg Comment on above: COPD exacerbation (H CC) (Primary Dx); Cough; Moderate persistent asthma with acute exacerbation Start: 05-11-2019 End: 05-12-2019 Patient encounter procedure NAJMA KEN [facility] Start: 05-11-2019 End: 05-11-2019 Subsequent hospital visit by physician Najma ALVAREZ [facility] Comment on above: Encounter for screen ing for diabetes mellitus; Screening for hyperlipidemia Procedures Date Procedure Procedure Detail Performing Clinician Start: 07-30-2023 Adult depression scr eening assessment Louie Furlong DO Work Phone: Start: 05-11-2023 Adult depression scr eening assessment Louie Furlong DO Work Phone: Start: 11-22-2020 Radiologic exam [...] 04-16-2020 Assay of thyroid stimulating hormone tsh Rachelvaprasad K Jesus Manuel Work Phone: Start: 04-16-2020 Blood count complete automated Shivaprasad K Jesus Manuel Work Phone: Start: 04-16-2020 Comprehensive metabo lic panel Shivaprasad K Jesus Manuel Work Phone: Start: 04-16-2020 Hemoglobin glycosylated a1c Rachelvaprasad K Jesus Manuel Work Phone: Start: 03-23-2020 Mri any jt upper ext remity w/o contrast matrl SHIVAPRASAD JESUS MANUEL Start: 03-23-2020 Mri any jt upper ext remity w/o contrast matrl Enesi O Cora Work Phone: Start: 11-02-2019 Assay of troponin quantitative Warren [employer] Work Phone: Start: 11-02-2019 Ecg routine ecg w/le ast 12 lds w/i&r Warren Olivas Work Phone: Start: 11-02-2019 Radiologic exam ches t single view Warren Olivas Work Phone: Start: 11-02-2019 Assay of lactate Warren Olivas Work Phone: Start: 11-02-2019 Assay of troponin quantitative Warren [employer] Work Phone: Start: 11-02-2019 Blood count complete [...] Phone: Start: 10-06-2019 B.A.L. CELL COUNT Forest [employer] Work Phone: Start: 10-06-2019 CELL COUNT W DIFF, BAL [employer] Work Phone: Start: 10-06-2019 Smr prim src fluorescent&/afs bct fngi parasit [employer] Work Phone: Start: 10-06-2019 Virus centrifuge enh ncd id imfluor stain ea [employer] Work Phone: Start: 10-06-2019 Virus tiss cul inocu lation cytopathic effect [employer] Work Phone: Start: 10-06-2019 End: 10-06-2019 Brnchsc w/brncl alveolar lavage [employer] Work Phone: Start: 10-05-2019 Radiologic exam ches t single view [employer] Work Phone: Start: 10-05-2019 BASIC METABOLIC PANE L W/ REFLEX TO MG FOR LOW K [employer] Work Phone: Start: 10-05-2019 Blood count complete auto&auto difrntl wbc Forest Child[employer] Work Phone: Start: 09-15-2019 Radiologic exam ches t single view Levy Felix Work Phone: Start: 08-29-2019 Blood count complete [...] Granado Work Phone: Start: 08-25-2019 Natriuretic peptide Laci Granado Work Phone: Start: 08-25-2019 Prothrombin time [...] Baldwin Work Phone: Start: 08-08-2019 End: 08-08-2019 Brnchsc incl fluor gdnce dx w/cell washg spx [...] 05-11-2019 Assay of thyroid stimulating hormone tsh NAJMA KEN Start: 05-11-[address] gtt 3 specimens RACHELVACONCEPCIÓND JESUS MANUEL Start: 05-11-2019 Lipid panel RACHELVAPRASA D JESUS MANUEL Start: 05-11-2019 Assay of thyroid stimulating hormone tsh Najma Ken Work Phone: Start: 05-11-[address] gtt 3 specimens Ferd Michelle Ken Work Phone: Start: 05-11-2019 Lipid panel Rachelvadaesa d K Jesus Manuel Work Phone: Plan of Treatment Date Care Activity Detail Author Start: 08-31-2025 COVID-19 Vaccine (1) COVID-19 Vaccin e (1) [employer] Phone: Comment on above: Postponed from 03/05 (Patient Refused) Start: 08-31-2025 Influenza vaccination Flu vacc ine (Season Ended) [employer] Phone: Comment on above: Postponed from 02/20 (Patient Refused) Start: 08-08-2024 Pneumococcal 0-64 ye ars Vaccine (2 of 2) Pneumococcal 0-64 years Vaccine (2 of 2) [facility] [employer] Work Phone: Start: 07-30-2024 Adult BMI Screening Adult BMI Screen ing [facility] Start: 07-30-2024 Depression Screening Depression Scre ening [facility] Start: 07-30-2024 Tobacco Screening Tobacco Screening [facility] Start: 05-11-2024 Adult BMI Screening Adult BMI Screen ing [facility] Start: 05-11-2024 [facility] Start: 05-11-2024 Lipid panel Lipid screen [facility] [place] Start: 05-11-2024 Lipid screen Lipid screen [place], [place] Start: 05-11-2024 Tobacco Screening Tobacco Screening [facility] Start: 12-22-2023 End: 12-22-2023 Patient encounter procedure 12/22/2023 1:30 PM EDT Office Visit [facility] [address] [place] [address] Celia Calhoun MD [address] [place] [address] [facility] Start: 12-12-2023 Tobacco Counseling Tobacco Counselin g [facility] Start: 09-20-2023 Influenza vaccination Influenza Vacc ine [facility] Comment on above: Postponed from 02/20 (Patient Refused) Start: 08-26-2023 End: 08-26-2023 Patient encounter procedure 08/26/2023 11:45 AM EST Office Visit [facility] [address] [place] [address] Sarah Fernández, MANAGER ENGAGEMENT-[employer] PIPE COVERING SUPERVISOR [address], [address] [place] [address] [facility] Start: 08-12-2023 Adult BMI Follow Up Plan Adult BMI Follow Up Plan [facility] Start: 05-11-2022 Diabetes screen Diabetes screen [place], [place] Start: 10-17-2021 Shingles Vaccine (1 of 2) Shingles Vaccine (1 of 2) [facility] [employer] Phone: Comment on above: Postponed from 03/05 (Patient Refused) Start: 04-16-2021 Hemoglobin A1c measurement A1C test (Diabetic or Prediabetic) [facility] [employer] Phone: Start: 04-16-2021 Thyroid stimulating hormone measurement TSH testing [facility] [employer] Phone: Start: 12-24-2020 DTaP/Tdap/Td vaccine (1 - Tdap) DTaP/Tdap/Td vaccine (1 - Tdap) [facility] [employer] Phone: Comment on above: Postponed from 03/05 (Patient Refused) Start: 10-05-2020 TSH Qn TSH testing [place], [place] Start: 10-05-2020 TSH testing TSH testing [place], [place] Start: 05-11-2020 TSH testing TSH testing [place], [place] Start: 05-10-2020 End: 05-10-2020 Office Visit 05/10/2020 Office Visit Primary Care Najma Ken MD [address] [place] [address] [phone] [facility] Start: 05-05-2020 DTaP/Tdap/Td vaccine (1 - Tdap) DTaP/Tdap/Td vaccine (1 - Tdap) [place], [place] Comment on above: Postponed from 03/05 (Patient Refused) Postponed from 03/05 (Patient Refused) Start: 05-05-2020 Hepatitis C screen Hepatitis C scree [place] Comment on above: Postponed from 03/05 (Patient Refused) Start: 05-05-2020 Hepatitis C screening Hepatitis C sc reen [place] Comment on above: Postponed from 03/05 (Patient Refused) Start: 05-05-2020 HIV screen HIV screen [place], [place] Comment on above: Postponed from 03/05 (Patient Refused) Start: 05-05-2020 HIV screening HIV screen [facility] Cristine [place] Comment on above: Postponed from 03/05 (Patient Refused) Start: 04-18-2020 End: 04-18-2020 Appointment 04/18/2020 Appointment Radiology [facility] CT Scan Start: 02-21-2020 Influenza vaccination M [place], [place] Start: 08-04-2019 End: 08-04-2019 Office Visit 08/04/2019 Office Visit Primary Care Najma Ken MD [address] [place] [address] [phone] [facility] Start: 02-20-2019 Influenza vaccination Flu vaccine (# 1) [place], [place] Start: [address] lung screening Low dose CT lung screening [place], [place] Start: 2009 Administration of varicella zoster vaccine Zoster (Shingles) Vaccine (1 of 2) [facility] Start: 2009 Breast cancer screen Breast cancer s creen [place], [place] Start: 2009 Colon cancer screen colonoscopy Colon cancer screen colonoscopy [place] Start: 2009 Screening for malign ant neoplasm of breast Breast cancer screen [place], [place] Start: 2009 Screening for malign ant neoplasm of colon Colon cancer screen colonoscopy [place] Start: 2009 Shingles Vaccine (1 of 2) Shingles Vaccine (1 of 2) [place] Start: 1999 Diabetes screen Diabetes screen [place], [place] Start: 1999 Lipid screen Lipid screen [place], [place] Start: 1978 DTaP,Tdap and Td Vaccines (1 - Tdap) DTaP,Tdap and Td Vaccines (1 - Tdap) [facility] Start: 1965 Pneumococcal 0-64 ye ars Vaccine (1 of 1 - PPSV23) Pneumococcal 0-64 years Vaccine (1 of 1 - PPSV23) [place], [place] Start: 1959 TSH testing TSH testing [facility] Acapella Acapella Respira tory Care Routine Daily until discontinued starting 08/06/2019 [facility] Comment on above: Daily until disconti nued starting 08/06/2019 AFB Stain [facility], [place] Comment on above: Release Upon Orderin g for 1 Occurrences starting 10/06/2019 ONE TIME for 1 Occur rences starting 08/08/2019 Basic Metabolic Prof Basic Metab olic Prof Lab Routine Daily until discontinued starting 08/06/2019, 5 completed [facility] Comment on above: Daily until disconti nued starting 08/06/2019, 5 completed Body fluid cell count [place] Comment on above: Release Upon Orderin g for 1 Occurrences starting 10/06/2019 ONE TIME for 1 Occur rences starting 08/08/2019 CBC CBC Lab Routine Daily until discontinued starting 08/06/2019, 5 completed [facility] Comment on above: Daily until disconti nued starting 08/06/2019, 5 completed End: 09-01-2019 CBC auto differential CBC auto differential Lab Routine Daily for 5 Occurrences starting 08/28/2019 until 09/01/2019, 2 completed [facility] Comment on above: Daily for 5 Occurren kisha starting 08/28/2019 until 09/01/2019, 2 completed End: 09-01-2019 Comprehensive Metabolic Panel w/ Reflex to MG Comprehensive Metabolic Panel w/ Reflex to MG Lab Routine Daily for 5 Occurrences starting 08/28/2019 until 09/01/2019, 2 completed [facility], [place] Comment on above: Daily for 5 Occurren kisha starting 08/28/2019 until 09/01/2019, 2 completed Culture with Smear, Acid Fast Bacillius [facility], [place] Comment on above: Release Upon Orderin g for 1 Occurrences starting 10/06/2019 ONE TIME for 1 Occur rences starting 08/08/2019 Culture, Fungus [facility], [place] Comment on above: Release Upon Orderin g for 1 Occurrences starting 10/06/2019 ONE TIME for 1 Occur rences starting 08/08/2019 End: 10-06-2019 Culture, Fungus Culture, Fungus Microbiology Routine Once for 1 Occurrences starting 10/06/2019 until 10/06/2019 [place], [place] Comment on above: Once for 1 Occurrenc es starting 10/06/2019 until 10/06/2019 Culture, Legionella [place], [place] Comment on above: Release Upon Orderin g for 1 Occurrences starting 10/06/2019 End: 10-06-2019 Culture, Legionella Culture, Legionella Microbiology Routine Once for 1 Occurrences starting 10/06/2019 until 10/06/2019 [place], [place] Comment on above: Once for 1 Occurrenc es starting 10/06/2019 until 10/06/2019 Culture, Respiratory [place], [place] Comment on above: Release Upon Orderin g for 1 Occurrences starting 10/06/2019 ONE TIME for 1 Occur rences starting 08/08/2019 Culture, Virus, Respiratory Culture, Virus, Respiratory Microbiology Routine Release Upon Ordering for 1 Occurrences starting 10/06/2019 [place] Comment on above: Release Upon Orderin g for 1 Occurrences starting 10/06/2019 Cytology, Non-Retail Selling Specialist Cytology, Non- Retail Selling Specialist Lab Routine ONE TIME for 1 Occurrences starting 08/08/2019 [place] Comment on above: ONE TIME for 1 Occur rences starting 08/08/2019 EKG 12 Lead EKG 12 Lead ECG STAT 11/02/2019 10:57 AM EDT [place] Fungal stain [place] Comment on above: Release Upon Orderin g for 1 Occurrences starting 10/06/2019 ONE TIME for 1 Occur rences starting 08/08/2019 End: 08-08-2019 Fungus Culture Fungus Culture Microbiology Routine Once for 1 Occurrences starting 08/08/2019 until 08/08/2019 [place] Comment on above: Once for 1 Occurrenc es starting 08/08/2019 until 08/08/2019 HHN Treatment [place] Comment on above: As Needed until [...] for 1 Occurrences starting 10/08/2019 until 10/08/2019 [facility]: One Time for 1 Occur rences starting 10/08/2019 until 10/08/2019 End: 08-09-2019 Home O2 eval (desaturation screen) Home O2 eval (desaturation screen) Respiratory Care Routine One Time for 1 Occurrences starting 08/09/2019 until 08/09/2019 [facility] on above[facility] One Time for 1 Occur rences starting 08/09/2019 until 08/09/2019 Initiate Oxygen Ther apy Protocol [facility] Comment on above: Daily until disconti nued starting 08/25/2019 Daily until disconti nued starting 08/27/2019 Daily until disconti nued starting 11/02/2019 MetaNeb MetaNeb Respirat ory Care Routine 0600, 1000, 1400, 1800, 2200 until discontinued starting 08/09/2019 [facility] Comment on above: 0600, 1000, 1400, 18 00, 2200 until discontinued starting 08/09/2019 Microscopic observat ion Gram stain Nom (Unsp spec) [facility] Comment on above: Release Upon Orderin g for 1 Occurrences starting 10/06/2019 ONE TIME for 1 Occur rences starting 08/08/2019 End: 08-25-2019 Pulse Oximetry Spot Check Pulse Oximetry Spot Check Respiratory Care Routine One Time for 1 Occurrences starting 08/25/2019 until 08/25/2019 [facility] Comment on above: One Time for 1 Occur rences starting 08/25/2019 until 08/25/2019 End: 08-27-2019 Pulse Oximetry Spot Check Pulse Oximetry Spot Check Respiratory Care Routine One Time for 1 Occurrences starting 08/27/2019 until 08/27/2019 [facility] Comment on above: One Time for 1 Occur rences starting 08/27/2019 until 08/27/2019 Pulse oximetry, overnight Pulse oximetry, overnight Respiratory Care Routine Every 4hr until discontinued starting 08/09/2019 [facility] on above: Every 4hr until disc ontinued starting 08/09/2019 Respiratory Care Evaluation and Treat Respiratory Care Evaluation and Treat Respiratory Care Routine Daily until discontinued starting 10/05/2019 [place] Comment on above: Daily until disconti nued starting 10/05/2019 Respiratory care evaluation only [place] Comment on above: Daily until disconti nued starting 08/26/2019 Daily until disconti nued starting 11/23/2020 Immunizations Immunization Date Immunization Notes Care Provider Fa anita 08-08-2019 pneumococcal vaccine , unspecified formulation [place], [place] 08-08-2019 pneumococcal polysaccharide vaccine, 23 valent [place], [place] NEGATED: Highlighted row has not occurred!08-10-2019 influenza, injectable, quadrivalent, preservative free [place], [place] NEGATED: Highlighted row has not occurred!08-09-2019 influenza, injectable, quadrivalent, preservative free [place] NEGATED: Highlighted row has not occurred!08-08-2019 influenza, injectable, quadrivalent, preservative free [place] Comment on above: Deferred: - Patient refused flu vaccine. Would not like the vaccine at all. Payers Date Payer Category Payer Unknown BCBS BC[place] - [place] P PO xxxxxxxxxxxx 2018-Present [address] [place] [address] xxxxxxxxxxxx [id number] 2016 Unknown [id number] .[id number] 1959 Unknown [id number] [id number] .[id number] 1959 Unknown [id number] 1959 Unknown [id number] 2.16.840.1.046889.3.579.2.175 1959 Unknown [id number] 2.16.840.1.936274.3.579.2.175 1959 Unknown [id number] 2.16.840.1.704833.3.579.2.176 1959 Unknown [id number] 2.16.840.1.424926.3.579.2.176 1959 Unknown [id number] 2.16.840.1.153852.3.579.2.176 1959 Unknown [id number] 2.16.840.1.500154.3.579.2.593 1959 Unknown [id number] 2.16.840.1.467340.3.579.2.593 1959 Unknown [id number] 2.16.840.1.890283.3.579.2.593 1959 Unknown [id number] 2.16.840.1.951223.3.579.2.593 1959 Unknown [id number] 2.16.840.1.231845.3.579.2.593 1959 Unknown [id number] 2.16.840.1.144195.3.579.2.593 1959 Unknown [id number] 2.16.840.1.686479.3.579.2.593 1959 Unknown [id number] 2.16.840.1.243952.3.579.2.196 1959 Unknown [id number] 2.16.840.1.131516.3.579.2.196 1959 Unknown [id number] 2.16.840.1.913453.3.579.2.196 1959 Unknown [id number] 2.16.840.1.764445.3.579.2.196 1959 Unknown [id number] 2.16.840.1.713617.3.579.2.128 6 1959 Unknown [id number] 2.16.840.1.425618.3.579.2.128 6 Social History Date Type Detail Facility Start: 08-25-2019 End: 11-22-2020 Tobacco smoking status NHIS Former sm[place], [place] Start: 08-25-2019 End: 08-02-2020 Cigarettes smoked current (pack per day) - Reported [facility] Start: 08-25-2019 End: 07-30-2023 Alcohol intake Current drinker of alcohol (finding) [place] Start: 08-08-2019 Tobacco Comment quit Jul 2019 [place] Start: 02-01-2019 [facility] [place] [place] Start: 1960 Sex Assigned At Not on file M [place], [place] Start: 02-20-2020 End: 04-06-2022 Tobacco use and exposure Never used [place] Start: 05-05-2019 End: 04-06-2022 Tobacco smoking status MSIS Current every day smoker [facility] Exposure to SARS-CoV -2 (event) Unable to assess [place] End: 07-23-2019 History of tobacco use Current smoker [facility] Exposure to SARS-CoV -2 (event) Not sure [facility] History of tobacco use Cigarette Smoker P [facility] Start: 08-02-2020 End: 05-11-2023 Tobacco use panel [facility] Adolescent depressio n screening assessment 0 [facility] Start: 02-25-2023 Alcohol Comment Occasionally [facility] Goals Date Patient Goal Desired [...] note might be different from the original. Genetic Technologist left voicemail for patient in regards to her appointment with [facility] tomorrow (08/26/2023). [facility] ordered labs at last visit, need to confirm with patient on if labs were completed or not. If not need to reschedule appointment. documented in this encounter [facility] 08-25-2023 Telephone encount er Note Genetic Technologist left voicemail for patient in regards to her appointment with [facility] tomorrow (08/26/2023). [facility] ordered labs at last visit, need to confirm with patient on if labs were completed or not. If not need to reschedule appointment. [facility] 07-30-2023 History of Presen t illness Narrative Images from the original note were not included. Subjective Patient ID: Cameron Us is a 63 y.o. female. Cameron presents for low back pain mostly on the right side. Pain radiates up back to neck area. She helped lift a safe at work at [employer] and felt sudden, intense pain that sent her to her knees. It was a [facility] case. This was when she was living in [place] in the mid to late . She [...] would also like a referral to an fire controlman for a second opinion. She is taking her supplement but still feels tired. They had a friend who had normal labs but the fire controlman did more labs and changed medications and [...] Refer to pain management. Postoperative hypothyroidism - [facility] - [place], [place]; Future Refer to endocrinology for a second opinion Chronic obstructive pulmonary disease, unspecified COPD type ([facility]) Reviewed pulmonology consult with patient and . It was addressed at appointment and was doing ok. She needs to quit smoking. They also ordered labs but she hasn't gotten them done and didn't know she needed them. Encouraged to get labs. Obstructive sleep apnea She is not following treatment regimen. Recommended to follow recommendations. documented in this encounter [facility] 07-14-2023 Miscellaneous Notes Formattin g of this note might be different from the original. Rx sent in. Patient due recheck appointment LM on documented in this encounter [facility] 07-14-2023 Telephone encount er Note Rx sent in. Patient due recheck appointment [facility] 07-14-2023 Telephone encount er Note LM on [facility] Evaluation note Diagnosis COPD exacerbation (HCC)- Primary Obstructive chronic bronchitis with exacerbation documented in this encounter [employer] Phone: evaluation note* Diagnosis Chronic rhinitis [facility] Diagnosis Acute exacerbation of chronic obstructive pulmonary disease (COPD) ([facility]) Obstructive chronic bronchitis with exacerbation [facility] Diagnosis Chronic obstructive pulmonary disease, unspecified COPD type ([facility])- Primary Right-sided low back pain without sciatica, unspecified chronicity Postoperative hypothyroidism Postsurgical hypothyroidism Obstructive sleep apnea Obstructive sleep apnea (adult) (pediatric) documented in this encounter [facility] instructions* Attachments The following attachments cannot be sent through Care Everywhere. * COPD Exacerbation Plan (Martiniquais) documented in [facility] Phone: InstructionsNot on filedocumented in this encounter [facility] SystemInstructionsNot on filedocumented in this encounter [facility] SystemInstructionsNot on filedocumented in this encounter [facility] SystemInstructionsNot on filedocumented in this encounter [facility] SystemReason for referral (narrative)* Consultation (Routine) - Pending Review Specialty Diagnoses / Procedures Referred By Emily hron Referred To Contact Endocrinology Diagnoses Postoperative hypothyroidism Louie Paul DO [address], [facility] [place] [address] Celia Calhoun MD [address] [address] Referral ID Status Reason Start Date Expiration Date Visits Requested Visits Authorized [id number] Pending Review Specialty Services Required 07/30/2023 07/29/2024 1 1 * Consultation (Routine) - Pending Review Specialty Diagnoses / Procedures Referred By Emily horn Referred To Contact Pain Medicine Diagnoses Right-sided low back pain without sciatica, unspecified chronicity Louie Paul DO [address], [place] [address] [address] Referral ID Status Reason Start Date Expiration Date V isits Requested Visits Authorized [id number] Pending Review 07/30/2023 07/29/2024 [address] [facility] History of Present Illness * Erin Ansari, RAFAEL - 08/29/2019 7:38 PM EDT IV pulled by day RN. Patient dc papers given. Patient dc'd with all belongings and scripts. * Nati Neves OT - 08/29/2019 12:48 PM EDT [facility] OCCUPATIONAL THERAPY MISSED TREATMENT NOTE [...] ABGs: No results for input(s): PHART, PO2ART, YCC9UAF, ICE9AYB, BEART, R4JZZUJC, ZAA5OYN in the last 72 hours. PT/INR: No results found for: PTINR ASSESSMENT / PLAN: Copd exac - steroid, BD - to po meds Influenza - tamiflu Cough suppressants Okay for home from pulmonary standpoint Plan of care discussed with Dr Childs . REASON FOR VISIT: copd, influenza I examined the patient myself The assessment and Plan in the note per my discussion with CONSERVATION COORDINATOR. . * Dalila Dash RN - 08/29/2019 [...] ABGs: No results for input(s): PHART, PO2ART, HWO5XCA, ZMV0ZNJ, BEART, P4EQXCLW, GBX9TEE in the last 72 hours. PT/INR: No results found for: PTINR ASSESSMENT / PLAN: Copd exac - steroid, BD - to po meds Influenza - tamiflu Cough suppressants . * Dre Rucker, PT - 08/28/2019 12:11 PM EDT Physical Therapy Facility/Department: [facility] Initial Assessment NAME: Cameron Us [...] Ambulation Assistance: Independent Transfer Assistance: Independent Active Phone Screener: Yes Mode of Transportation: Car Occupation: Retired [...] 08/28/2019 11:43 AM Name: Cameron Us Acct: [id number] Room: IP Day: 1 Admit Date: 08/25/2019 3:06 PM [...] 0.85 (L) 1.0 - 4.8 k/uL Absolute [place] # 0.99 0.1 - 1.3 k/uL Absolute [...] ABGs: No results for input(s): PHART, PO2ART, THA9REU, SNM2HFM, BEART, U2LWSDJB, CPE5PFM in the last 72 hours. PT/INR: No results found for: PTINR ASSESSMENT / PLAN: Copd exac - steroid, BD Influenza - tamiflu Cough suppressants . * Fuentes Jiang MD - 08/27/2019 11:11 AM EST Progress Note 08/27/2019 11:11 AM Name: Cameron Us Acct: [id number] Room: [facility] Day: 1 Admit Date: 08/25/2019 3:06 PM [...] Oral BID ipratropium-albuterol 3 mL Inhalation Q4H SD levothyroxine 125 mcg Oral Daily montelukast 10 [...] ABGs: No results for input(s): PHART, PO2ART, KYO0CCE, HOP8TZZ, BEART, Z4VGRZZE, GGL7GOG in the last 72 hours. PT/INR: No [...] NKDA Other pertinent information: Medications confirmed with [facility]. Thank you, Amanda Ellison, PharmD, [facility] [phone] documented in this encounter* Joseph Butterfield RCP [...] 10/07/2019 4:04 PM Name: Cameron Us Acct: [id number] Room: [facility] Day: 1 Admit Date: 10/05/2019 2:31 PM [...] and replace electrolytes per sliding scale * oFrest Childs MD - 10/07/2019 9:40 AM EDT [...] ABGs: No results for input(s): PHART, PO2ART, PFZ5RAE, EKD0ULL, BEART, R1CFOOUN, RJC6GJA in the last 72 hours. PT/INR: No [...] in the note per my discussion with CONSERVATION COORDINATOR. . * Wendy Parra, RN - 10/07/2019 12:23 AM EDT Pt. Stated my grandson came to the E.R., Told him he probubly has cov. 19, he was not tested. Pt. Continued to say they gave him a paper on what to look for. Genetic Technologist updated Dr. Childs. No orders given for this pt. * Greta Bonilla, RAFAEL - 10/06/2019 4:47 PM EDT RN paged [...] up appointments. The pt refused for the advertising writer to take her down stairs and [...] ABGs: No results for input(s): PHART, PO2ART, FOR8UPV, SCQ1GUC, BEART, G0JWXMHD, DRP3KIQ in the last 72 hours. PT/INR: No [...] Diagnostic studies reviewed Data ReviewCBC: Recent Labs 08/07/1941808/08/19 0613 08/09/19 0632 WBC 20.0* 18.5* 15.9* RBC 4.59 4.55 4.34 HGB 14.1 14.0 13.5 HCT 42.8 42.1 40.1 PLT 367 355 334 BMP: Recent Labs 08/07/1941808/08/19 0613 08/09/19 0632 GLUCOSE 172* 154* 140* NA 140 140 139 K 5.1 5.1 4.5 BUN 26* 32* 29* CREATININE 0.93* 0.75 0.86 CALCIUM 8.1* 8.0* 7.6* ABGs: No results for input(s): PHART, PO2ART, CLV3REQ, XSA2QQW, BEART, O2ZHDEOZ, PTK6NKI in the last 72 hours. PT/INR: No results found for: PTINR ASSESSMENT / PLAN: Copd exac - steroid, BD Cough - cough suppressants d/c Bronch /- thick secretions noted, sputum culture= many gram positive rods, few gram positive cocci in clusters Mucinex, Pulmomyze, and Metaneb added Will need DOLORES workup as outpatient Discussed with Dr. Childs . REASON FOR VISIT: copd exac, cough, mucus plugs I examined the patient myself The assessment and Plan in the note per my discussion with CONSERVATION COORDINATOR. . * Caden Baldwin MD - 08/08/2019 [...] sodium chloride flush, acetaminophen CBC: Recent Labs 08/06/19 0423 08/07/19 0419 08/08/19 0613 WBC 7.9 20.0* 18.5* HGB 14.5 14.1 14.0 PLT 366 367 355 BMP: Recent Labs 08/06/19 0423 08/07/19 0419 08/08/19 0613 NA 137 140 140 K 4.1 [...] in a hospital setting. Caden Baldwin MD [facility] Hospitalist * Cynthia Russell - 08/08/2019 3:40 PM EST Ms. Cameron Us is a 59yowf admitted to [facility] for evaluation of COPD exacerbation. Ms. Us [...] ABGs: No results for input(s): PHART, PO2ART, ZDM2EXH, TDR0YPB, BEART, L0HFDIHX, UPG8VSA in the last 72 hours. PT/INR: No [...] Ana Strickland MD [facility] [address] [phone] * Laura Mathis RN - 08/07/2019 3:15 PM EST Pt. Arrived to room 2046. Vitals obtained. Assessment Completed. Pt. Denies any needs at this time.Will Continue to monitor. * Reina Smith RN - 08/07/2019 3:00 PM EST I agree with the charting of Shellie HALL * Analia James RPH - 08/06/2019 9:25 PM EST Spoke with Dr. Childs and informed him that Codeine and Tylenol #3 are nonformulary and unavailable at [facility] suggested Phenergan with codeine. He is very insistent that we try to obtain some, he used it at [place] last month. Per [facility], [facility] appears to have Tylenol #3 still in stock. Called and spoke with pharmacist at [facility], she will call her airfield manager or button spindler and find out if she can share with us, will call us back this evening. Awaiting call back. Analia JamesPharmD, 08/06/2019, 9:28 PM * Tere Tafoya RN - 08/06/2019 8:45 PM EST Return call received from Dr Childs. He doesn't want Phenergan with codeine due to patient being on Hycodan. Wants to see if pharmacy can get in Codeine tablets. Genetic Technologist talked with pharmacy and was informed there is no codeine except the one with phenergan. Pharmacist Stated she would try to get a hold of Dr Childs herself. Will continue to monitor situation. ON * Tere Tafoya RN - 08/06/2019 8:16 PM EST Page out to Dr Childs to see if order can be placed for Phenergan with codeine being pharmacy doesn'tcarry the codeine tablet he ordered.Awaiting return page Tere Siddiqui RN - 08/06/2019 7:00 PM EST Telemetry batteries changed with shift report Linnette Ledezma RN - 08/06/2019 5:[address] Strickland rounding at bedside. Updated on recent vitals and urine output. New orders received. Will continue to monitor. Linnette Ledezma RN - 08/06/2019 2:[address] Strickland notified of recent vital signs. New orders received. Linnette Ledezma RN - 08/06/2019 10:[address] Strickland on patients vitals. New orders for 1000 bolus. Linnette Ledezma RN - 08/06/2019 9:06 AM EST New orders for hycodan per Dr. Childs Linnette Ledezma RN - 08/06/2019 9:00 AM EST New orders for cardizem per Dr. Strickland Linnette Ledezma RN - 08/06/2019 8:[address] Strickland pageandrews for tachycardia. Awaiting call back. * Amanda Ellison RPH - 08/05/2019 5:01 PM EST Medication History completed: New medications: none Medications discontinued: magnesium Changes to dosing: Duloxetine changes to nightly dosing Stated allergies: NKDA Other pertinent information: Medications confirmed with [facility]. 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 Expl anation ACP-Advance Directive ACP-Power of Veneer Jointer Helper Latest Code Status on File Code Status Date Activated Date Inactivated Comments Full Code 10/05/2019 2:43 PM 10/08/2019 2:49 PM Full Code 08/27/2019 11:11 AM 08/29/2019 9:40 PM Full Code 08/25/2019 6:05 PM 08/27/2019 11:11 AM Full Code 08/25/2019 5:50 PM 08/25/2019 6:05 PM Full Code 08/05/2019 4:58 PM 08/10/2019 8:24 PM Documents on File Type Date Recorded 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 * Cough (Martiniquais) * URI (Upper Respiratory Infection): Viral ([place]) * Coronavirus Disease COVID-19: Isolation ([place]) documented in this encounter* Instructions* Misty Sharp [...] through Care Everywhere. * COPD Exacerbation Plan ([place]) * COPD ([place]) * Smoking Cessation: Health Benefits: General Info (Martiniquais) documented in this encounter* Instructions* Warren Olivas [...] through Care Everywhere. * COPD: General Info (Martiniquais) documented in this encounter Reason for Referral Status Reason Specialty Diagnoses / Procedures Re ferred By Contact Referred To Contact Closed Radiology Diagnoses Osteoarthritis of right acromioclavicular joint Procedures MRI SHOULDER RIGHT WO CONTRAST Mao Shepherd MD [address] [employer] [address] [place] [phone] Summary Purpose Family History No Family History [...] A Influenza A Caden Baldwin MD [address] [place] [address] [facility] Reason Comments Cough Status Reason Specialty Diagnoses / Procedures Re ferred By Contact Referred To Contact Closed Radiology Diagnoses Osteoarthritis of right acromioclavicular joint Procedures MRI SHOULDER RIGHT WO CONTRAST Mao Shepherd MD [address] [address] [phone] Status Reason Specialty Diagnoses / Procedures Referre d By Contact Referred To Contact Diagnoses chronic obstructive pulmonary disease Forest Childs MD [address] [facility] [address] [place] [address] [facility] Reason Comments Cough Shortness of Breath Status Reason Specialty Diagnoses / Procedures Referre d By Contact Referred To Contact Diagnoses COPD exacerbation (HCC) Caden Baldwin MD [address] [place] [address] [facility] Reason Comments Cough Shortness of Breath Chills Emesis Reason Comments Shortness of Breath Cough Fatigue Headache Reason Comments Med Refill Reason Comments discuss pain. back down to h ip and up to the neck. Would like also a referral to fire controlman. Chief complaint tired all the time INFORMATION SOURCE (unrecogn ized section and content) DATE CREATED AUTHOR 04/17/2020 [facility] DATE CREATED AUTHOR AUTHOR'S ORGANIZ ATION 11/23/2020 [facility] DATE CREATED AUTHOR AUTHOR'S ORGANIZ ATION 09/21/2021 [facility] DATE CREATED AUTHOR AUTHOR'S ORGANIZ ATION 12/20/2021 [facility] DATE CREATED AUTHOR AUTHOR'S ORGANIZ ATION 11/01/2023 [facility] DATE CREATED AUTHOR AUTHOR'S ORGANIZ ATION 11/24/2023 [facility] Ordered Prescriptions [...] Care Teams (unrecognized sec tion and content) [employer] Work[employer] Hel[employer] Relationship Specialty Start Date End Date Louie Paul DO [address], [place] [address] PCP - General Family Medicine 09/27/21 [employer] Relationship Specialty Start Date End Date Louie Paul DO [address], [place] [address] PCP - [facility] Family Medicine 09/27/21 [employer] Worker Helper Relationship Specialty Start Date End Date Louie Paul DO [address], [place] [address] PCP - General Family Medicine 09/27/21 [employer] Worker Helper Relationship Specialty Start Date End Date Louie Paul DO [address], [place] [address] PCP - General Family Medicine 09/27/21 FOR [...] BE BASED ON THE PRIMARY CLINICAL RECORDS. [facility]. provides no warranty or guarantee of the accuracy or completeness of information in this document.
[2023-12-07 07:18] VITALS: BP 144/78; PULSE 96; TEMP 36.2; O2SAT 92
[2023-12-07 08:24] VITALS: BP 154/72; PULSE 92; O2SAT 94
[2023-12-07] MEDS: BUPIVACAINE HCL 0.25% PF 25 MG/10 ML VIAL 5 ML INJ (08:24)
[2023-12-07] MEDS: LIDOCAINE HCL 2% 400 MG/20 ML MDV 15 ML INJ (08:25)
[2023-12-07] MEDS: IOHEXOL 240 MG/ML - 10 ML VIAL INJ (08:25)
[2023-12-07] MEDS: TRIAMCINOLONE ACETONIDE 40 MG/ML VIAL INJ (08:25)
--- NOTE | 2023-12-07 08:26 | W.PM.PROCNOT ---
Date of procedure: 12/07/23 Pre-op diagnosis: Pain due to right sacroiliitis Post-op diagnosis: same as pre-op Procedure: Procedure: Right sacroiliac joint injection Medications: Bupivacaine 0.25% 3cc, kenalog 40mg After informed consent was obtained, the patient was brought to the medical procedure unit and placed in the prone position, when a timeout was completed verifying correct patient, procedure, site, positioning, implant, and/or special equipment.? The skin overlying the area was prepped and draped in standard sterile fashion using alcohol.? A 25-gauge needle was inserted towards the right sacroiliac joint under direct fluoroscopic imaging.? Needle tip was advanced until the joint was encountered.? We instilled a total of 2 mL of solution.? Postoperatively needles were removed.? The patient tolerated the procedure well without complication.? The patient reported reduction in pain symptoms postoperatively. Anesthesia: Local Surgeon: eBlle Monet Pathology: none sent Condition: stable Disposition: no change
[2023-12-07 08:27] VITALS: BP 149/66; PULSE 94; O2SAT 95
== END 2023-12-07 08:30 | disposition home or self-care (01) ==
LOC: SURGOUT 07:00
PROVIDERS: PCP Family Medicine; Visit Provider Anesthesiology
DX: M46.1 Sacroiliitis, not elsewhere classified (principal)
CPT/HCPCS: 27096; J0665; J3301; Q9966

== ENCOUNTER 2023-12-17 11:30 | Outpatient (OUT) | payer BC, SELFPAY ==
--- NOTE | 2023-12-17 11:38 | P.CN_ITS ---
Consult Note: HPI Data of Consult Patient: known to practice within the last 3 years Consult date: 08/03/23 Requesting Physician: Giulia Carlin NP Primary Care Provider: HE PAUL Consult Narrative Reason for consult: low back pain Narrative: 63yof who presents for evaluation. worsening axial low back pain for several years. imaging reviewed, which shows moderate facet arthropathy in lower lumbar spine. continues in >6 weeks of provider directed home exercise program, with no benefit. uses tylenol as needed, without benefit. cannot take nsaids due to eliquis. denies adverse med side effects. Patient recently underwent bilateral L4-5 L5-S1 facet medial branch RFA 50% in axial low back pain per patient. Pain in right low back 4/10 burning increasing to 8/10 with standing walking, transitioning, bending, and activity. Pain increased with forward flexion and rest. Patient does report intermittent cramping of right leg and thigh. Patient has not been taking flexeril BID PRN, but once every few days, denies side effects. Recent right SIJ injection providing 50% improvement ongoing cc:: CC: Giulia Carlin NP Review of Systems ROS Status of ROS 10 or more systems reviewed and unremark able except as noted in history and below Musculoskeletal Reports: back pain, extremity pain and joint pain PFSH [facility] Medical History S/P neck surgery, follow-up exam ?Z09 - Encounter for follow-up examination after completed treatment for conditions other than malignant neoplasm (ICD-10) Upper back pain ?M54.9 - Dorsalgia, unspecified (ICD-10) Neck pain ?M54.2 - Cervicalgia (ICD-10) Low back pain ?M54.50 - Low back pain, unspecified (ICD-10) Hypothyroidism ?E03.9 - Hypothyroidism, unspecified (ICD-10) Pulmonary embolism ?I26.99 - Other pulmonary embolism without acute cor pulmonale (ICD-10) COPD (chronic obstructive pulmonary disease) ?J44.9 - Chronic obstructive pulmonary disease, unspecified (ICD-10) Smoker ?F17.200 - Nicotine dependence, unspecified, uncomplicated (ICD-10) Chronic cough ?R05.3 - Chronic cough (ICD-10) Atrial fibrillation ?I48.91 - Unspecified atrial fibrillation (ICD-10) Surgical History H/O thumb surgery ?Z98.890 - Other specified postprocedural states (ICD-10) Hx of appendectomy ?Z90.49 - Acquired absence of other specified parts of digestive tract (ICD- 10) H/O: hysterectomy ?Z90.710 - Acquired absence of both cervix and uterus (ICD-10) H/O carpal tunnel repair ?Z98.890 - Other specified postprocedural states (ICD-10) H/O thyroidectomy ?E89.0 - Postprocedural hypothyroidism (ICD-10) Meds Home Medications and Allergies Home Medications ?Medication ?Instructions ?Recorded ?Confirmed ?Type albuterol sulfate 0.63 mg/3 mL 0.63 mg inhalation TID PRN 08/03/23 12/07/23 History solution for nebulization shortness of breath or wheezing apixaban 5 mg tablet (Eliquis) 5 mg PO BID 08/03/23 12/07/23 History budesonide 160 mcg-glycopyr 9 2 inh inhalation BID 08/03/23 12/07/23 History mcg-formot 4.8 mcg/actuation HFA inhaler ([employer]) diltiazem HCl 120 mg capsule,24 120 mg PO DAILY 08/03/23 12/07/23 History hr,extended release duloxetine 20 mg capsule,delayed 20 mg PO DAILY 08/03/23 12/07/23 History release levothyroxine 125 mcg capsule 125 mcg PO DAILY 08/03/23 12/07/23 History methocarbamol 750 mg tablet 750 mg PO Q6H PRN pain #20 tabs 08/29/23 12/07/23 Rx Allergies Allergy/AdvReac Type Severity Reaction Status Date / Time No Known Drug Allergies Allergy Verified 12/07/23 07:20 Exam Constitutional Documenting provider has reviewed patient's vital signs: yes Common normals: no apparent distress, oriented x3, healthy appearing, alert and well nourished General appearance: cooperative HENMT Common normals: normocephalic, hearing grossly normal bilaterally and moist oral mucous membranes Head and scalp: normocephalic Eye Common normals: PERRL Pupil: PERRL Neck & C-Spine Common normals: full ROM General: normal visual inspection Chest Common normals: inspection of chest normal Respiratory Common normals: normal respiratory effort, no retractions and no use of accessory muscles Back & Pelvis Lumbar spine/lower back: normal to inspection, lumbar ROM normal and straight leg raise negative bilaterally Other: mildly positive facet loading negative right aime(patricks), gaenslens, thigh thrust, compression test decreased sensation following right L4,5,S1 pattern strength 5/5 in BLE Extremity Common normals: normal to inspection and full ROM Neuro Common normals: oriented x3, CN's II-XII intact bilaterally, moves all extremities, no focal motor deficits, no sensory deficits noted, deep tendon reflexes 2+ bilaterally and gait normal Sensorium/orientation: alert Motor exam: strength 5/5 throughout and no movement abnormalities noted Psych Common normals: mental status grossly normal, thought process normal, cooperative, affect normal, speech normal and activity/motor behavior normal Speech: normal speech Thought process: normal thought process Results Additional Findings Additional findings: If on a controlled substance or opioids, I have checked an OARRS report on this patient and there are no aberrancies noted in the prescribing history.??If on a controlled substance or opioid a drug screen was completed and reviewed within the last year, and if there has not been a drug screen completed we ordered one today to monitor higher risk, state monitored pain medication use. As part of providing excellent, safe, comprehensive care, the following was completed at our patient's visit: 1. A medication reconciliation and review to ensure accurate knowledge of current/active medications, including asking our patients to inform us about any [id number] medications or herbal remedies/nutritional supplements/alternative remedies. 2. A review to specifically ensure our patients have had annual screening for screening for depression, screening for tobacco use, and screening for unhealthy alcohol use. For concerning screenings had a discussion with the patient, provided patient education, and recommended follow-up with primary care provider when appropriate. If patient noted with a risk of falling, they received education on strength, gait, and balance training to prevent future risk of falling. Assessment and Plan Assessment and Plan (1) Sacroiliitis: (2) Lumbar spondylosis: (3) Lumbar stenosis with neurogenic claudication: (4) Myofascial pain: Plan increase flexeril 10mg TID PRN, encouraged to utilize at least BID for 1-2 weeks continue HEP as tolerated continue PRN tylenol cannot take NSAIDs right L4-5 L5-S1 TFESI if symptoms persist, to be completed under fluoroscopy upcoming appointment with endocrinology f/u 1 month, or 2 wekks after FRANSISCO
== END 2023-12-17 11:31 | disposition home or self-care (01) ==
PROVIDERS: PCP Family Medicine; Visit Provider Nurse Practitioner
DX: M46.1 Sacroiliitis, not elsewhere classified (principal); M47.816 Spondylosis without myelopathy or radiculopathy, lumbar region; M48.062 Spinal stenosis, lumbar region with neurogenic claudication; M79.10 Myalgia, unspecified site
CPT/HCPCS: G0463

== ENCOUNTER 2024-02-01 09:56 | Day surgery (SDC) | payer BC, SELFPAY ==
[2024-02-01 10:54] VITALS: BP 145/92; PULSE 101; TEMP 36.3; O2SAT 93
[2024-02-01] MEDS: 0.9 % SODIUM CHLORIDE 10 ML SYRINGE - SALINE FLUSH INJ (11:12)
[2024-02-01] MEDS: BUPIVACAINE HCL 0.25% PF 25 MG/10 ML VIAL INJ (11:12)
[2024-02-01] MEDS: TRIAMCINOLONE ACETONIDE 40 MG/ML VIAL 80 MG INJ (11:13)
[2024-02-01] MEDS: LIDOCAINE HCL 2% 400 MG/20 ML MDV 5 ML INJ (11:13)
[2024-02-01] MEDS: IOHEXOL 240 MG/ML - 10 ML VIAL INJ (11:13)
[2024-02-01 11:14] VITALS: BP 144/87; BP 148/60; PULSE 107; PULSE 99; O2SAT 90; O2SAT 91
--- NOTE | 2024-02-01 11:15 | P.ON_ITS ---
Date of procedure: 02/01/24 Pre-op diagnosis: Pain due to lumbar stenosis with neurogenic claudication Post-op diagnosis: same as pre-op Procedure: Procedure: Right L4-5, L5-S1 transforaminal epidural steroid injection Medications: Bupivacaine 0.25% 2cc, lidocaine 2% 1cc, kenalog 80mg The patient was seen and examined in the preoperative holding area.? Informed consent was obtained and placed on the chart.? Patient was brought to the medical procedure unit and placed in the prone position where a timeout was completed verifying the correct patient, procedure site, position, and planned special equipment using sterile aseptic technique.? Under direct fluoroscopic visualization a 25-gauge Quincke tipped spinal needle was advanced to the designated neural foramen where contrast dye was injected to show adequate spread.? The needle was inserted at level right L4-5. There was no evidence of vascular or adverse uptake.? Epidural spread was appreciated.? The above- mentioned injectate was then placed in a 1.5 mL aliquot preceded by negative aspiration.? The needle was removed. The needle was inserted and the procedure repeated at level right L5-S1.? The surgery site was covered.? Patient was taken to the postprocedural recovery area and monitored for an appropriate length of time before found suitable for discharge in the accompaniment of a responsible adult. Anesthesia: Local Surgeon: Belle Monet Pathology: none sent Condition: stable Disposition: no change
== END 2024-02-01 11:20 | disposition home or self-care (01) ==
LOC: SURGOUT 09:56
PROVIDERS: PCP Family Medicine; Visit Provider Anesthesiology
DX: M48.062 Spinal stenosis, lumbar region with neurogenic claudication (principal)
CPT/HCPCS: 64483; 64484; J0665; J3301; Q9966

== ENCOUNTER 2024-02-10 14:14 | Outpatient (OUT) | payer BC, SELFPAY ==
--- NOTE | 2024-02-10 15:05 | PM.CN ---
Consult Note: HPI Data of Consult Patient: known to practice within the last 3 years Consult date: 08/03/23 Requesting Physician: Giulia Carlin NP Primary Care Provider: HE PAUL Consult Narrative Reason for consult: low back pain Narrative: 63yof who presents for evaluation. worsening axial low back pain for several years. imaging reviewed, which shows moderate facet arthropathy in lower lumbar spine. continues in >6 weeks of provider directed home exercise program, with no benefit. uses tylenol as needed, without benefit. cannot take nsaids due to eliquis. denies adverse med side effects. Patient recently underwent bilateral L4-5 L5-S1 facet medial branch RFA 50% in axial low back pain per patient. Pain in right low back 2/10 burning increasing to 4/10 with standing walking, transitioning, bending, and activity. Pain increased with forward flexion and rest. Patient does report intermittent cramping of right leg and thigh. Patient has not been taking flexeril BID PRN, but once every few days, denies side effects. Recent right SIJ injection providing 50% improvement ongoing and right L4/5 L5/S1 TFESI 75% improvement ongoing. Patient pleased with outcomes. KENNY 12%. cc:: CC: Giulia Carlin NP Review of Systems ROS Status of ROS 10 or more systems reviewed and unremarkable except as noted in history and below Musculoskeletal Reports: back pain PFSH PFSH Medical History S/P neck surgery, follow-up exam ?Z09 - Encounter for follow-up examination after completed treatment for conditions other than malignant neoplasm (ICD-10) Upper back pain ?M54.9 - Dorsalgia, unspecified (ICD-10) Neck pain ?M54.2 - Cervicalgia (ICD-10) Low back pain ?M54.50 - Low back pain, unspecified (ICD-10) Hypothyroidism ?E03.9 - Hypothyroidism, unspecified (ICD-10) Pulmonary embolism ?I26.99 - Other pulmonary embolism without acute cor pulmonale (ICD-10) COPD (chronic obstructive pulmonary disease) ?J44.9 - Chronic obstructive pulmonary disease, unspecified (ICD-10) Smoker ?F17.200 - Nicotine dependence, unspecified, uncomplicated (ICD-10) Chronic cough ?R05.3 - Chronic cough (ICD-10) Atrial fibrillation ?I48.91 - Unspecified atrial fibrillation (ICD-10) Surgical History H/O thumb surgery ?Z98.890 - Other specified postprocedural states (ICD-10) Hx of appendectomy ?Z90.49 - Acquired absence of other specified parts of digestive tract (ICD-10) H/O: hysterectomy ?Z90.710 - Acquired absence of both cervix and uterus (ICD-10) H/O carpal tunnel repair ?Z98.890 - Other specified postprocedural states (ICD-10) H/O thyroidectomy ?E89.0 - Postprocedural hypothyroidism (ICD-10) Meds Home Medications and Allergies Home Medications ?Medication ?Instructions ?Recorded ?Confirmed ?Type albuterol sulfate 0.63 mg/3 mL 0.63 mg inhalation TID PRN 08/03/23 02/01/24 History solution for nebulization shortness of breath or wheezing apixaban 5 mg tablet (Eliquis) 5 mg PO BID 08/03/23 02/01/24 History budesonide 160 mcg-glycopyr 9 2 inh inhalation BID 08/03/23 02/01/24 History mcg-formot 4.8 mcg/actuation HFA inhaler ([email or web address]) diltiazem HCl 120 mg capsule,24 120 mg PO DAILY 08/03/23 02/01/24 History hr,extended release duloxetine 20 mg capsule,delayed 20 mg PO DAILY 08/03/23 02/01/24 History release levothyroxine 125 mcg capsule 125 mcg PO DAILY 08/03/23 02/01/24 History methocarbamol 750 mg tablet 750 mg PO Q6H PRN pain #20 tabs 08/29/23 02/01/24 Rx cyclobenzaprine 10 mg tablet 10 mg PO TID PRN muscle spasm #90 12/17/23 02/01/24 Rx tabs diazepam 10 mg tablet 10 mg PO BID 02/01/24 02/01/24 History Allergies Allergy/AdvReac Type Severity Reaction Status Date / Time No Known Drug Allergies Allergy Verified 02/01/24 10:49 Exam Constitutional Documenting provider has reviewed patient's vital signs: yes Common normals: no apparent distress, oriented x3, healthy appearing, alert and well nourished General appearance: cooperative HENMI Common normals: normocephalic, hearing grossly normal bilaterally and moist oral mucous membranes Head and scalp: normocephalic Eye Common normals: PERRL Pupil: PERRL Neck & C-Spine Common normals: full ROM General: normal visual inspection Chest Common normals: inspection of chest normal Respiratory Common normals: normal respiratory effort, no retractions and no use of accessory muscles Back & Pelvis Lumbar spine/lower back: normal to inspection, lumbar ROM normal and straight leg raise negative bilaterally Other: mildly positive facet loading negative right aime(patricks), gaenslens, thigh thrust, compression test decreased sensation following right L4,5,S1 pattern strength 5/5 in BLE Extremity Common normals: normal to inspection and full ROM Neuro Common normals: oriented x3, CN's II-XII intact bilaterally, moves all extremities, no focal motor deficits, no sensory deficits noted and deep tendon reflexes 2+ bilaterally Sensorium/orientation: alert Motor exam: strength 5/5 throughout and no movement abnormalities noted Psych Common normals: mental status grossly normal, thought process normal, cooperative, affect normal, speech normal and activity/motor behavior normal Speech: normal speech Thought process: normal thought process Results Additional Findings Additional findings: If on a controlled substance or opioids, I have checked an OARRS report on this patient and there are no aberrancies noted in the prescribing history.??If on a controlled substance or opioid a drug screen was completed and reviewed within the last year, and if there has not been a drug screen completed we ordered one today to monitor higher risk, state monitored pain medication use. As part of providing excellent, safe, comprehensive care, the following was completed at our patient's visit: 1. A medication reconciliation and review to ensure accurate knowledge of current/active medications, including asking our patients to inform us about any [id number] medications or herbal remedies/nutritional supplements/alternative remedies. 2. A review to specifically ensure our patients have had annual screening for screening for depression, screening for tobacco use, and screening for unhealthy alcohol use. For concerning screenings had a discussion with the patient, provided patient education, and recommended follow-up with primary care provider when appropriate. If patient noted with a risk of falling, they received education on strength, gait, and balance training to prevent future risk of falling. Assessment and Plan Assessment and Plan (1) Sacroiliitis: (2) Lumbar spondylosis: (3) Lumbar stenosis with neurogenic claudication: (4) Myofascial pain: Plan right L4-5 L5-S1 TFESI providing significant improvement ongoing continue flexeril 10mg BID, finding benefit to current dosing continue HEP as tolerated continue PRN tylenol cannot take NSAIDs f/u 3 months, sooner if needed
== END 2024-02-10 14:15 | disposition home or self-care (01) ==
LOC: PM 14:14
PROVIDERS: PCP Family Medicine; Visit Provider Nurse Practitioner
DX: M46.1 Sacroiliitis, not elsewhere classified (principal); M47.816 Spondylosis without myelopathy or radiculopathy, lumbar region; M48.062 Spinal stenosis, lumbar region with neurogenic claudication; M79.18 Myalgia, other site
CPT/HCPCS: G0463

== ENCOUNTER 2024-05-26 10:35 | Outpatient (OUT) | payer BC, SELFPAY ==
--- NOTE | 2024-05-26 11:12 | P.CN_ITS ---
Consult Note: HPI Data of Consult Patient: known to practice within the last 3 years Consult date: 08/03/23 Requesting Physician: Giulia Carlin NP Primary Care Provider: HE PAUL Consult Narrative Reason for consult: low back pain Narrative: 63yof who presents for evaluation. worsening axial low back pain for several years. imaging reviewed, which shows moderate facet arthropathy in lower lumbar spine. continues in >6 weeks of provider directed home exercise program, with no benefit. uses tylenol as needed, without benefit. cannot take nsaids due to eliquis. denies adverse med side effects. Pain in right low back 2/10 burning increasing to 8/10 with standing walking, transitioning, bending, and activity. Pain increased with forward flexion and rest. Patient does report intermittent cramping of right leg and thigh. no recent CT or MRI availavle for review. cc:: CC: Giulia Carlin NP Review of Systems ROS Status of ROS 10 or more systems reviewed and unremark able except as noted in history and below Musculoskeletal Reports: back pain, extremity pain and joint pain PFSH PFSH Medical History S/P neck surgery, follow-up exam ?Z09 - Encounter for follow-up examination after completed treatment for conditions other than malignant neoplasm (ICD-10) Upper back pain ?M54.9 - Dorsalgia, unspecified (ICD-10) Neck pain ?M54.2 - Cervicalgia (ICD-10) Low back pain ?M54.50 - Low back pain, unspecified (ICD-10) Hypothyroidism ?E03.9 - Hypothyroidism, unspecified (ICD-10) Pulmonary embolism ?I26.99 - Other pulmonary embolism without acute cor pulmonale (ICD-10) COPD (chronic obstructive pulmonary disease) ?J44.9 - Chronic obstructive pulmonary disease, unspecified (ICD-10) Smoker ?F17.200 - Nicotine dependence, unspecified, uncomplicated (ICD-10) Chronic cough ?R05.3 - Chronic cough (ICD-10) Atrial fibrillation ?I48.91 - Unspecified atrial fibrillation (ICD-10) Surgical History H/O thumb surgery ?Z98.890 - Other specified postprocedural states (ICD-10) Hx of appendectomy ?Z90.49 - Acquired absence of other specified parts of digestive tract (ICD- 10) H/O: hysterectomy ?Z90.710 - Acquired absence of both cervix and uterus (ICD-10) H/O carpal tunnel repair ?Z98.890 - Other specified postprocedural states (ICD-10) H/O thyroidectomy ?E89.0 - Postprocedural hypothyroidism (ICD-10) Meds Home Medications and Allergies Home Medications ?Medication ?Instructions ?Recorded ?Confirmed ?Type albuterol sulfate 0.63 mg/3 mL 0.63 mg inhalation TID PRN 08/03/23 02/01/24 History solution for nebulization shortness of breath or wheezing apixaban 5 mg tablet (Eliquis) 5 mg PO BID 08/03/23 02/01/24 History budesonide 160 mcg-glycopyr 9 2 inh inhalation BID 08/03/23 02/01/24 History mcg-formot 4.8 mcg/actuation HFA inhaler ([employer]) diltiazem HCl 120 mg capsule,24 120 mg PO DAILY 08/03/23 02/01/24 History hr,extended release duloxetine 20 mg capsule,delayed 20 mg PO DAILY 08/03/23 02/01/24 History release levothyroxine 125 mcg capsule 125 mcg PO DAILY 08/03/23 02/01/24 History methocarbamol 750 mg tablet 750 mg PO Q6H PRN pain #20 tabs 08/29/23 02/01/24 Rx cyclobenzaprine 10 mg tablet 10 mg PO TID PRN muscle spasm #90 12/17/23 02/01/24 Rx tabs diazepam 10 mg tablet 10 mg PO BID 02/01/24 02/01/24 History Allergies Allergy/AdvReac Type Severity Reaction Status Date / Time No Known Drug Allergies Allergy Verified 02/01/24 10:49 Exam Constitutional Documenting provider has reviewed patient's vital signs: yes Common normals: no apparent distress, oriented x3, healthy appearing, alert and well nourished General appearance: cooperative HENMT Common normals: normocephalic, hearing grossly normal bilaterally and moist oral mucous membranes Head and scalp: normocephalic Eye Common normals: PERRL Pupil: PERRL Neck & C-Spine Common normals: full ROM General: normal visual inspection Chest Common normals: inspection of chest normal Respiratory Common normals: normal respiratory effort, no retractions and no use of accessory muscles Back & Pelvis Lumbar spine/lower back: normal to inspection, lumbar ROM normal and straight leg raise negative bilaterally Other: mildly positive facet loading positive right aime(patricks), gaenslens, thigh thrust, compression test decreased sensation following right L4,5,S1 pattern strength 5/5 in BLE Extremity Common normals: normal to inspection and full ROM Neuro Common normals: oriented x3, CN's II-XII intact bilaterally, moves all extremities, no focal motor deficits, no sensory deficits noted and deep tendon reflexes 2+ bilaterally Sensorium/orientation: alert Motor exam: strength 5/5 throughout and no movement abnormalities noted Psych Common normals: mental status grossly normal, thought process normal, cooperative, affect normal, speech normal and activity/motor behavior normal Speech: normal speech Thought process: normal thought process Results Additional Findings Additional findings: If on a controlled substance or opioids, I have checked an OARRS report on this patient and there are no aberrancies noted in the prescribing history.??If on a controlled substance or opioid a drug screen was completed and reviewed within the last year, and if there has not been a drug screen completed we ordered one today to monitor higher risk, state monitored pain medication use. As part of providing excellent, safe, comprehensive care, the following was completed at our patient's visit: 1. A medication reconciliation and review to ensure accurate knowledge of current/active medications, including asking our patients to inform us about any [id number] medications or herbal remedies/nutritional supplements/alternative remedies. 2. A review to specifically ensure our patients have had annual screening for screening for depression, screening for tobacco use, and screening for unhealthy alcohol use. For concerning screenings had a discussion with the patient, provided patient education, and recommended follow-up with primary care provider when appropriate. If patient noted with a risk of falling, they received educati on on strength, gait, and balance training to prevent future risk of falling. Assessment and Plan Assessment and Plan (1) Lumbar stenosis with neurogenic claudication: (2) Sacroiliitis: (3) Myofascial pain: (4) Lumbar spondylosis: Plan update lumbar MRI without contrast to assess lumbar stenosis with NC start gabapentin 300mg HS dc flexeril start baclofen 5-10mg BID PRN pain/spasms f/u to review imaging
== END 2024-05-26 10:36 | disposition home or self-care (01) ==
PROVIDERS: PCP Family Medicine; Visit Provider Nurse Practitioner
DX: M48.062 Spinal stenosis, lumbar region with neurogenic claudication (principal); M46.1 Sacroiliitis, not elsewhere classified; M79.18 Myalgia, other site; M47.816 Spondylosis without myelopathy or radiculopathy, lumbar region
CPT/HCPCS: G0463

== ENCOUNTER 2024-11-07 12:33 | Outpatient (OUT) | payer MEDICARE, SELFPAY ==
--- NOTE | 2024-11-07 12:36 | MR_ITS ---
The [address] [address] Patient Name: CAMERON US MRN: [id number] date: 1960 Sex: F Assigned Patient Location: MRI Current Patient Location: MRI Accession/Order Number: [id number] Exam Date: 11/07/2024 16:15 Report Date: 11/07/2024 16:21 At the request of: NIDIA HERNANDEZ NP Procedure: MR lumbar spine wo con MR lumbar spine wo con 11/07/2024 1:20 PM SIGNS AND SYMPTOMS: Chronic right-sided low back pain radiating to right hip PROTOCOL: Multiplanar multisequence MR images of the lumbar spine without contrast COMPARISON: 07/30/2023 FINDINGS: The bones of the lumbar spine are in anatomic alignment. There is preservation of vertebral body heights. There is moderate disc height loss at L2-L3 with mild disc height loss at L1-L2, L3-L4, and L5-S1. There is Modic type II fatty endplate edema at L5-S1. Benign-appearing hemangiomas are noted at L5 and within the sacrum. The conus terminates at the L1-L2 intervertebral disc level. No epidural or paraspinous fluid collection is appreciated. There is a simple cyst in the left renal cortex. At T12-L1: There is a normal disc, central canal, and neural foramen. At L1-L2: There is a normal disc, central canal, and neural foramen. Mild facet hypertrophy is present with small bilateral facet effusions. At L2-L3: There is a broad-based disc bulge with facet hypertrophy and ligamentum flavum thickening. There is moderate spinal canal narrowing with mild left and moderate right neural foraminal narrowing. At L3-L4: There is a broad-based disc bulge with facet hypertrophy and ligamentum flavum thickening. There is moderate spinal canal stenosis with mild left and moderate to severe right neural foraminal narrowing. At L4-L5: There is a broad-based disc bulge with facet hypertrophy and ligamentum flavum thickening. There is mild spinal canal stenosis with severe left and mild right neural foraminal narrowing. Is mass effect on the exiting left L4 nerve roots. At L5-S1: There is a broad-based disc bulge with facet hypertrophy and endplate osteophyte formation. There is moderate left and mild right neural foraminal stenosis. MR/MR lumbar spine wo con IMPRESSION: At L2-L3: There is a broad-based disc bulge with facet hypertrophy and ligamentum flavum thickening. There is moderate spinal canal narrowing with mild left and moderate right neural foraminal narrowing. At L3-L4: There is a broad-based disc bulge with facet hypertrophy and ligamentum flavum thickening. There is moderate spinal canal stenosis with mild left and moderate to severe right neural foraminal narrowing. At L4-L5: There is a broad-based disc bulge with facet hypertrophy and ligamentum flavum thickening. There is mild spinal canal stenosis with severe left and mild right neural foraminal narrowing. Is mass effect on the exiting left L4 nerve roots. At L5-S1: There is a broad-based disc bulge with facet hypertrophy and endplate osteophyte formation. There is moderate left and mild right neural foraminal stenosis. Impression dictated by: Amilcar Angela M.D. 11/07/2024 4:21 PM Dictation Location: [place] [id number] Electronically authenticated by: [id number] Y Date: 11/07/2024 16:21
== END 2024-11-07 12:34 | disposition home or self-care (01) ==
LOC: MRI 12:33
PROVIDERS: PCP Family Medicine; Visit Provider Nurse Practitioner
DX: M48.062 Spinal stenosis, lumbar region with neurogenic claudication (principal); M51.369 Other intervertebral disc degeneration, lumbar region without mention of lumbar back pain or lower extremity pain
CPT/HCPCS: 72148

== ENCOUNTER 2024-11-17 14:36 | Outpatient (OUT) | payer MEDICARE, OTHER, SELFPAY ==
--- OUTSIDE RECORDS SUMMARY | 2024-11-17 14:55 | XMS_ITS | CCD ---
Author Organization [facility] ion Partnership [facility] Care Team Providers Care Nurse Outreach Case Manager Name Role Phone Najma Ken Primary [...] Attending Unavailable PAY, DR FERRER Consulting Unavailable JGPALMER OMALLEY Consulting Unavailable FURLONG, DR LOUIE Hawkins Primary Care Unavailable MISC, DR IBRAHIM Consulting Unavailable JODY, MOHINDER Admitting Unavailable JODY, MOHINDER Attending Unavailable FURLONG, DR LOUIE Hawkins Admitting Unavailable FURLONG, DR LOUIE Hawkins Attending Unavailable FURLONG, DR LOUIE Hawkins Consulting Unavailable KOTAASHLEE Consulting Unavailable JODY, MOHINDER Primary Care Unavailable JODY, MOHINDER Admitting Unavailable JODY, MOHINDER Attending Unavailable JODY, MOHINDER Consulting Unavailable MISC, DR IBRAHIM Admitting Unavailable FURLONG, DR LOUIE Hawkins Primary Care Unavailable MISC, DR DOCTOR Attending Unavailable MISC, DR IBRAHIM Consulting Unavailable ZIEBER, DR BARRON Strauss Consulting Unavailable TIMMIS, DR LARA Admitting Unavailable FURLONG, DR LOUIE Hawkins Primary Care Unavailable TIMMIS, DR LARA Attending Unavailable TIMMIS, DR LARA Consulting Unavailable ZIEBER, DR BARRON Strauss Consulting Unavailable MOHINDER VERA Consulting Unavailable FURLONG, DR LOUIE Hawkins Primary Care Unavailable JAZMINE DODD Admitting Unavailable KHURRAM FULTON Consulting Unavailable JAZMINE DODD Attending Unavailable Gypsy Muñoz Consulting Unavailable PAPI BAEZ Referring Unavailab le FURLONG, LOUIE G Primary Care Unavailable Gikathleenitis , Andgloria Streeter Attending Unavailable Giedraitis , Andrius Streeter Attending Unavailable Giedraitis , Andrius Streeter Attending Unavailable Giedraitis , Andrius Streeter Attending Unavailable Giedraitis , Andrius Streeter Attending Unavailable Giedraitis , Andrius Streeter Attending Unavailable Furlong DO, Louie G Primary Care Provider CELIA COWAN Referring Unavailable FURLONG, LOUIE G Primary Care Unavailable FURLONG, LOUIE G Referring Unavailable FURLONG, LOUIE G Primary Care Unavailable PAPI BAEZ Attending Unavailab le FURLONG, LOUIE G Primary Care Unavailable FURLONG, LOUIE G Referring Unavailable FURLONG, LOUIE G Primary Care Unavailable FURLONG, LOUIE G Attending Unavailable FURLONG, LOUIE G Referring Unavailable FURLONG, LOUIE G Primary Care Unavailable FURLONG, LOUIE G Attending Unavailable FURLONG, LOUIE G Referring Unavailable FURLONG, LOUIE G Primary Care Unavailable CELIA COWAN Referring Unavailable FURLONG, LOUIE G Primary Care Unavailable FURLONG, LOUIE G Primary Care Unavailable LORENZO LACKEY Attending Unavailable RYAN BURKS Admitting Unavailable FURLONG, LOUIE G Attending Unavailable FURLONG, LOUIE G Referring Unavailable FURLONG, LOUIE G Primary Care Unavailable Furlong DO, Louie G Primary Care Provider [phone] FURSENDYNGLOUIE Attending Unavailable FURLONG, LOUIE G Referring Unavailable FURLONG, LOUIE G Primary Care Unavailable FURLONG, LOUIE G Attending Unavailable FURLONG, LOUIE G Referring Unavailable FURLONG, LOUIE G Primary Care Unavailable FURLONG, LOUIE G Attending Unavailable FURLONG, LOUIE G Referring Unavailable FURLONG, LOUIE G Primary Care Unavailable FURLONG, LOUIE G Attending Unavailable FURLONG, LOUIE G Referring Unavailable FURLONG, LOUIE G Primary Care Unavailable CELIA COWAN Attending Unavailable FURLONG, LOUIE G Referring Unavailable FURLONG, LOUIE G Primary Care Unavailable RYANNE MARTINEZ Attending Unavailable FURLONG, LOUIE G Referring Unavailable FURLONG, LOUIE G Primary Care Unavailable FURLONG, LOUIE G Attending Unavailable FURLONG, LOUIE G Referring Unavailable FURLONG, LOUIE G Primary Care Unavailable MAYNARDKATHERINE GIMENEZDOROTEO Dia Attending Unavailable FURLONG, LOUIE G Referring Unavailable FURLONG, LOUIE G Primary Care Unavailable Allergies Allergy Classification Reported Allergen(s) Allergy Type Date of Onset Reaction(s) Facility Calcium Channel Blockers (1 source) dilTIAZem Drug Allergy 10-12-2019 Itching, Swelling, Rash [facility] (3 sources) dilTIAZem Drug Allergy 10-12-2019 Itching, Swelling, Rash [facility] [place], [place] Medications Current Medications Medication Drug Class(es) Dates Sig (Normalized) Sig (Original) acetaminophen 325 mg oral tablet (14 sources) Start: 09-27-2021 take 2 tablets by mouth every four hours as needed acetaminophen (TYLENOL) 325 mg tablet Take 2 tablets (650 mg total) by mouth every 4 (four) hours as needed (Temperature greater than 38.3 C). 30 tablet 09/27/2021 Active Start: 10-06-2019 acetaminophen (TYLENOL) tablet 650 mg Start: 08-27-2019 acetaminophen (TYLENOL) tablet 650 mg Start: 08-25-2019 End: 08-28-2019 650 mg, Oral, EVERY 4 HOURS PRN, Pain Mild (1-3), Pain Mild (1- 3) or Fever greater than 100.5 F (38 C), Starting [facility] 08/25/19 at 1749 Maximum dose of [...] mg from all sources in 24 hours. [id number] 200 actuat albuterol 0.09 mg/actuat metered dose inhaler (20 sources) beta2-Adrenergic Agonist Start: 11-23-2023 take 2 puff(s) by inhalation four times daily albuterol (PROVENTIL HFA;VENTOLIN HFA) 90 mcg/actuation inhaler Indications: Acute exacerbation of chronic obstructive pulmonary disease (COPD) [place] [place] Inhale 2 puffs 4 (four) times a day. 18 g 11 11/23/2023 Active Start: 05-11-2023 take 3 mL by inhalat ion every six hours as needed for wheezing albuterol (PROVENTIL,VENTOLIN) 2.5 mg /3 mL (0.083 %) nebulizer solution Indications: Chronic respiratory failure with hypoxia ([facility] [place] Inhale 3 mL (2.5 mg total) by nebulization every 6 (six) hours as needed for wheezing. 75 mL 2 05/11/2023 Active Start: 10-06-2019 albuterol (PRO VENTIL) nebulizer [...] every 6 hours as needed 0 Active ascorbic acid 60 mg / beta carotene 5000 unt / copper sulfate 40 mg / dl-alpha tocopheryl acetate 30 unt / sodium selenite 0.04 mg / zinc oxide 40 mg oral tablet (2 sources) Vitamin C take 1 tablet by mouth once daily Multiple Vitamins-Minerals (THERAPEUTIC MULTIVITAMIN-MINERA LS) tablet Take 1 tablet by mouth daily 0 Active atorvastatin 10 mg oral tablet (4 sources) HMG-CoA Reductase Inhibitor Start: 09-06-19 25 take 1 tablet by mouth in the morning atorvastatin (LIPITOR) 10 mg tablet Take 1 tablet (10 mg total) by mouth in the morning. 30 tablet 11 09/05/2024 Active azithromycin 250 mg oral tablet (1 source) Macrolide Antimicrobial Start: 11-02-19 20 End: 11-12-19 20 azithromycin (ZITHROMAX) 250 MG tablet Indications: COPD exacerbation (HCC) Take 2 tablets (500 mg) on Day 1, followed by 1 tablet (250 mg) once daily on Days 2 through 5. 1 packet 0 11/02/2019 11/12/2019 Active baclofen 10 mg oral tablet (8 sources) gamma-Aminobutyric Acid-ergic Agonist Start: 05-26-20 24 baclofen (LIORESAL) 10 mg tablet 05/26/2024 Active benzonatate 200 mg oral capsule (7 sources) Non-narcotic Antitussive Start: 05-30-20 24 take 1 capsule by mouth three times daily as needed for cough benzonatate (TESSALON PERLES) 200 mg capsule Take 1 capsule (200 mg total) by mouth 3 (three) times a day as needed for cough. 20 capsule 05/30/2024 Active Start: 10-08-2019 End: 11-07-2019 take 1 capsule by mouth three times [...] / glycopyrrolate 0.009 mg/actuat metered dose inhaler (10 sources) Corticosteroid, beta2-Adrenergic Agonist Start: 10-18-2024 take 2 puff(s) by inhalation in the morning jijsovthpd-ymejvljc-wuy moterol (BREZTRI AEROSPHERE) 160-9-4.8 mcg/actuation HFA aerosol inhaler Indications: Chronic obstructive pulmonary disease, unspecified COPD type ([facility]) Inhale 2 puffs in the morning and 2 puffs before bedtime. 5.9 g 10/18/2024 Active Start: 01-21-2024 take 2 puff(s) by inhalation at bedtime nqvganjkii-yfzxupkh-fzczewrdhh (BREZTRI AEROSPHERE) 160-9-4.8 mcg/actuation HFA aerosol inhaler Indications: Acute exacerbation of chronic obstructive pulmonary disease (COPD) ([facility]) Inhale 2 puffs in the morning and at bedtime. 31.1 g 1 01/21/2024 Active cefuroxime 250 mg oral tablet (1 source) Cephalosporin Antibacterial Start: 08-10-2019 End: 08-15-2019 take 1 tablet by mouth twice daily cefUROXime (CEFTIN) 250 MG tablet Take 1 tablet by mouth 2 times daily for 5 days 10 tablet 0 08/10/2019 08/15/2019 Active cetirizine hydrochloride 10 mg oral tablet (9 sources) Histamine-1 Receptor Antagonist Start: 03-11-2024 take 1 tablet by mouth in the morning cetirizine (ZyrTEC) 10 mg tablet TAKE 1 TABLET (10 MG TOTAL) BY MOUTH IN THE MORNING 90 tablet 1 03/11/2024 Active cyclobenzaprine hydrochloride 10 mg oral tablet (1 source) Muscle Relaxant Start: 12-17-2023 take 1 tablet by mouth three times daily as needed for muscle spasms cyclobenzaprine (FLEXERIL) 10 mg tablet TAKE 1 TABLET BY MOUTH THREE TIMES A DAY NEEDED FOR MUSCLE SPASM 12/17/2023 Active dextromethorphan hydrobromide 3 mg/ml / promethazine hydrochloride 1.25 mg/ml oral solution (1 source) Phenothiazine, Uncompetitive X-duxjuo-E-asparta te Receptor Antagonist, Sigma-1 Agonist Start: 10-18-2024 take 5 mL by mouth four times daily as needed for cough promethazine/dextrome thorphan (promethazine-DM) 6.25-15 mg/5 mL syrup Take 5 mL by mouth 4 (four) times a day as needed for cough. 473 mL 10/18/2024 Active diazePAM 5 mg oral tablet (1 [...] hydrochloride 120 mg extended release oral capsule (20 sources) Calcium Channel Royer Start: 05-11-2023 End: 06-20-2024 take 1 capsule by mouth every twenty-four hours in the morning dilTIAZem CD (CARDIZEM CD) 120 mg 24 hr capsule Indications: Paroxysmal atrial fibrillation (CMS-HCC) TAKE 1 CAPSULE (120 MG TOAL) BY MOUTH IN THE MORNING 90 capsule 1 06/20/2024 Active Start: 10-08-2020 take 1 capsule by [...] Start: 11-28-2019 take 1 tablet by terrie four times daily dilTIAZem (CARDIZEM) 30 MG [...] DULoxetine 20 mg delayed release oral capsule (20 sources) Serotonin and Norepinephrine Reuptake Inhibitor Start: 01-19-2024 End: 07-13-2024 take 1 capsule by mouth once daily DULoxetine (CYMBALTA) 20 mg capsule Indications: Fibromyalgia TAKE 1 CAPSULE BY MOUTH EVERY DAY AT NIGHT 90 capsule 07/13/2024 Active Start: 11-09-2020 take 1 capsule by [...] 20 mg, Oral, NIGHTLY, First dose on 10/05/19 at 2100 Do [...] First dose on [place] 08/25/19 at 2100 fluconazole 150 mg oral tablet (1 source) Azole Antifungal Start: 10-18-2024 End: 10-18-2024 take 1 tablet by mouth once fluconazole (DIFLUCAN) 150 mg tablet Take 1 tablet (150 mg total) by mouth once for 1 dose. 1 tablet 1 10/18/2024 10/18/2024 Active fluticasone propionate 0.05 mg/actuat metered dose nasal spray (1 source) Corticosteroid Start: 02-17-2024 take 2 spray(s) nasal route once daily in the morning, then take 1 spray(s) nasal route in the morning fluticasone propionate (FLONASE) 50 mcg/actuation nasal spray Indications: Chronic rhinitis Administer 2 sprays into each nostril every morning. SPRAY 1 SPRAY INTO EACH NOSTRIL IN THE MORNING 02/17/2024 Active gabapentin 300 mg oral capsule (13 sources) Anti-epileptic Agent Start: 05-26-2024 gabapentin (NEURONTIN) 300 mg capsule Take by mouth. 05/26/2024 Active Start: 10-17-2020 End: 01-15-2021 take 1 capsule [...] % nebulizer solution 0.5 mg Lactobacillus acidophilus (9 sources) take 1 tablet by mouth in the morning Lactobacillus acidophilus (PROBIOTIC ACIDOPHILUS ORAL) Take 1 tablet by mouth in the morning. Active take 1 tablet by mouth once nabil y Lactobacillus acidophilus (PROBIOTIC ACIDOPHILUS ORAL) Take 1 tablet by mouth daily. Active levalbuterol 0.417 mg/ml inhalation solution (6 sources) beta2-Adrenergic Agonist Start: 08-31-2020 leval buterol (XOPENEX) 1.25 MG/3ML nebulizer solution Take 3 mLs by nebulization every 4 hours as needed for Wheezing 90 mL 1 08/31/2020 Active Start: 08-26-2019 levalbuterol ( XOPENEX) 1.25 MG/0.5ML nebulizer solution 1.25 mg 0 08/26/2019 Active levothyroxine sodium 0.125 mg oral tablet (20 sources) l-Thyroxine Start: 02-25-2024 take 1 tablet by mouth in the morning levothyroxine (SYNTHROID) 125 MCG tablet Take 1 tablet (125 mcg total) by mouth in the morning. 02/25/2024 Active Start: 06-12-2020 take 1 tablet by [...] STOMACH IN THE MORNING 1 11/24/2018 Active liothyronine sodium 0.005 mg oral tablet (9 sources) l-Triiodothyronine Start: 12-23-2023 take 1 tablet by mouth in the morning liothyronine (CYTOMEL) 5 MCG tablet Indications: Postoperative hypothyroidism Take 1 tablet (5 mcg total) by mouth in the morning. 30 tablet 11 12/23/2023 Active 100 ml magnesium sulfate 10 mg/ml injection (2 sources) Start: 08-27-2019 magnesium sulfate 1 g in dextrose 5% [...] Nausea 30 tablet 0 04/12/2020 04/22/2020 Active MIEBO 100 % drops (9 sources) Start: 11-21-2023 MIEBO 100 % dr ops 11/21/2023 Active Start: 11-21-2023 take 1 drop(s) into the eye(s) three to four times daily MIEBO 100 % drops . INSTILL 1 DROP 3-4 TIMES PER DAY IN BOTH EYES 11/21/2023 Active montelukast 10 mg oral tablet (7 sources) Leukotriene Receptor Antagonist Start: 06-01-2019 take 10 mg by mouth once daily 10 mg, Oral, NIGHTLY, First dose on Thu08/05/19 at 2100 Multiple Vitamins-Minerals (THERAPEUTIC MULTIVITAMIN-MINERAL S) tablet (7 sources) take 1 tablet by mouth once daily Multiple Vitamins-Minerals (THERAPEUTIC MULTIVITAMIN-MINERAL S) tablet Take 1 tablet by mouth daily 0 Active omeprazole 20 mg delayed release oral capsule (9 sources) Proton Pump Inhibitor take 1 capsule by mouth every other day omeprazole (PriLOSEC) 20 mg capsule Take 1 capsule (20 mg total) by mouth every other day. Active oseltamivir 75 mg oral capsule (2 sources) Neuraminidase Inhibitor Start: 08-26-2019 End: 08-31-2019 take 1 capsule by mouth twice daily oseltamivir (TAMIFLU) 75 MG capsule Take 1 capsule by mouth 2 times daily for 1 day 2 capsule 0 08/29/2019 08/30/2019 Active phenazopyridine hydrochloride 100 mg oral tablet (1 source) Start: 10-03-2024 End: 10-06-2024 take 1 tablet by mouth three times daily as needed for muscle spasms phenazopyridine (PYRIDIUM) 100 mg tablet Take 1 tablet (100 mg total) by mouth 3 (three) times a day as needed for bladder spasms for up to 3 days. 9 tablet 10/03/2024 10/06/2024 Active polyethylene glycol 3350 09077 mg powder for oral solution (1 source) [...] sources) Opioid Agonist Start: 08-07-2019 End: 08-09-2019 acetaminophen-code ine (TYLENOL #3) 300-30 MG per tablet 1 tablet acetaminophen 325 mg / HYDROcodone bitartrate 5 mg oral tablet (1 source) Opioid Agonist Start: 08-07-2019 End: 08-08-2019 HYDROcodone-acetam inophen (NORCO) 5-325 MG per tablet 1 tablet apixaban 5 mg oral tablet (20 sources) Factor Xa Inhibitor Start: 12-22-2023 End: 10-18-2024 take 1 tablet by mouth at bedtime apixaban (ELIQUIS) 5 mg tablet Indications: Paroxysmal atrial fibrillation ([facility]) Take 1 tablet (5 mg total) by mouth in the morning and at bedtime. 180 tablet 3 09/14/2024 10/18/2024 Discontinued (Therapy completed) Start: 10-01-2020 take 1 tablet by terrie [...] times daily 180 tablet 1 02/01/2019 Active azithromycin (ZITHROMAX) 500 mg in D5W 250ml [...] daily 0 08/05/2019 Discontinued (LIST CLEANUP) methylPREDNISolone 125 mg injection (6 sources) Corticosteroid Start: 11-22-2020 End: 11-22-2020 methylPREDNISolone sodium (SOLU-MEDROL) injection 125 mg Start: 10-05-2019 End: 10-07-2019 [...] 10-06-2019 metoprolol (LOPRESSOR) injec tion 5 mg 24 hr nicotine 0.875 mg/hr transdermal system (8 sources) Cholinergic Nicotinic Agonist Start: 05-30-2024 End: 09-01-2024 apply 1 dose transdermal route once daily nicotine (NICODERM CQ) 21 mg/[address] 1 patch on the skin daily. 30 patch 1 05/30/2024 09/01/2024 Discontinued (Therapy completed) Start: 06-01-2019 End: 08-25-2019 apply 1 dose transdermal route once daily 1 patch, Transdermal, Administer over 24 Hours, DAILY, First dose on Thu08/05/19 at 1845 Apply new patch to nonhairy, clean, dry skin on the upper body or upper outer arm. Rotate patch sites. Notify pharmacy if patient or provider prefers patch to be removed at bedtime and replaced in the morning. Hazardous Medication -- Refer to facility policy for handling and disposal. 2 ml ondansetron 2 mg/ml injection (2 sources) Serotonin-3 Receptor Antagonist Start: 08-25-2019 End: 08-25-2019 ondansetron (ZOFRAN) injection 4 mg Start: 08-25-2019 End: 08-25-2019 ondansetron (ZOFRAN) 4 MG/2M L injection triamcinolone acetonide 1 mg/ml topical cream (5 sources) Corticosteroid Start: 02-01-2024 End: 09-01-2024 triamcinolone (KENALOG) 0.1 % cream Apply 1 Application topically in the morning and 1 Application before bedtime. 30 g 02/01/2024 09/01/2024 Discontinued (Therapy completed) Problems Active Problems Problem Classification Problem Date Documented Date Episodic/Chronic Asthma (1 source) Acute exacerbation of moderate persistent asthma; Translations: [Moderate persistent asthma with acute exacerbation] Chronic Cardiac dysrhythmias (15 sources) Paroxysmal atrial fibrillation; Translations: [Paroxysmal atrial fibrillation] Onset: 02-01-2024 05-29-2024 Chronic Chronic obstructive pulmonary disease and bronchiectasis (20 sources) Acute exacerbation of chronic obstructive airways disease; Translations: [Chronic obstructive pulmonary disease with (acute) exacerbation] Onset: 08-05-2019 Resolved: 12-22-2022 08-26-2019 Chronic Complications of surgical procedures or medical care (20 sources) Postoperative hypothyroidism; Translations: [Postprocedural hypothyroidism] Onset: 02-01-2019 08-26-2019 Chronic Conditions associated with dizziness or vertigo (1 source) Dizziness; Translations: [Dizziness] Episodic Disorders of lipid metabolism (13 sources) Mixed hyperlipidemia; Translations: [Mixed hyperlipidemia] Onset: 02-17-2024 02-17-2024 Chronic Esophageal disorders (2 sources) Gastroesophageal reflux disease; Translations: [Gastro-esophageal reflux disease without esophagitis] Onset: 09-01-2024 09-01-2024 Chronic Essential hypertension (1 source) Hypertensive disorder Onset: 09-01-2024 Chronic Genitourinary symptoms and ill-defined conditions (9 sources) Genuine stress incontinence; Translations: [Stress incontinence (female) (male)] Onset: 01-01-2022 01-01-2022 Chronic Genitourinary symptoms and ill-defined conditions (2 sources) Increased frequency of urination; Translations: [Frequency of micturition] Onset: 10-18-2024 10-18-2024 Episodic Mycoses (1 source) Candidiasis of vagina; Translations: [Vagina, candidiasis] 10-18-2024 Episodic Osteoarthritis (1 source) Osteoarthritis of right acromioclavicular joint; Translations: [Osteoarthritis of right acromioclavicular joint] Other connective tissue disease (1 source) Imaging of thorax abnormal; Translations: [Abnormal CXR] Episodic Other connective tissue disease (1 source) Fibromyalgia; Translations: [Fibromyalgia] 07-13-2024 Episodic Other connective tissue disease (8 sources) Trigger finger; Translations: [Trigger finger] Onset: 02-01-2019 02-01-2019 Other diseases of kidney and ureters (1 source) Other specified disorders of kidney and ureter; Translations: [Other specified disorders of kidney and ureter] Onset: 03-23-2024 Chronic Other nervous system disorders (18 sources) Carpal tunnel syndrome; Translations: [Carpal tunnel syndrome, unspecified upper limb] Onset: 02-01-2019 02-01-2019 Chronic Other nutritional; endocrine; and metabolic disorders (1 source) Morbid (severe) obesity due to excess calories; Translations: [Morbid (severe) obesity due to excess calories] Onset: 06-13-2024 Chronic Other nutritional; endocrine; and metabolic disorders (1 source) Body mass index (BMI) 37.0-37.9, adult; Translations: [Body mass index (BMI) 37.0-37.9, adult] Onset: 06-13-2024 Chronic Other nutritional; endocrine; and metabolic disorders (1 source) Excessive thirst; Translations: [Polydipsia] Episodic Other skin disorders (4 sources) Localized swelling, mass and lump, neck; Translations: [LOCALIZED SWELLING MASS AND LUMP NECK] Onset: 10-04-2021 Episodic Other upper respiratory disease (1 source) Chronic rhinitis; Translations: [Chronic rhinitis] Onset: 02-17-2024 Chronic Other upper respiratory infections (1 source) Chronic sinusitis, unspecified; Translations: [CHRONIC SINUSITIS UNSPECIFIED] Onset: 2021 Chronic Residual codes; unclassified (4 sources) Obstructive sleep apnea (adult) (pediatric); Translations: [OBSTRUCTIVE SLEEP APNEA] Onset: 12-16-2021 Chronic Residual codes; unclassified (2 sources) Sleep apnea; Translations: [Sleep apnea, unspecified] 09-01-2024 Chronic Residual codes; unclassified (1 source) Sleep apnea, unspecified; Translations: [Sleep apnea, unspecified] Onset: 09-01-2024 Chronic Respiratory failure; insufficiency; arrest (adult) (20 sources) Chronic hypoxemic respiratory failure; Translations: [Chronic respiratory failure with hypoxia] Onset: 10-07-2019 Resolved: 09-01-2024 10-07-2019 Chronic Substance-related disorders (12 sources) Nicotine dependence, cigarettes, uncomplicated; Translations: [Cigarette smoker ] Onset: 2021 Resolved: 06-13-2024 05-29-2024 Chronic Unclassified (2 sources) Patient encounter status; Translations: [Encounter for screening for diabetes mellitus] Unclassified (4 sources) COUGH, UNSPECIFIED; Translations: [COUGH, UNSPECIFIED] Onset: 07-04-2021 Unclassified (4 sources) CONTACT W/AND (SUSP) EXPOS COVID-19; Translations: [CONTACT W/AND (SUSP) EXPOS COVID-19] Onset: 2021 Unclassified (1 source) Respiratory Problem Onset: 05-28-2024 Unclassified (1 source) left leg pain and swelling, history of blood clots Onset: 01-15-2024 Unclassified (1 source) Obesity, class 2; Translations: [Obesity, class 2] Onset: 06-13-2024 Unclassified (1 source) New Patient Onset: 12-22-2023 Urinary tract infections (1 source) Urinary tract infectious disease Onset: 10-18-2024 Episodic Viral infection (2 sources) COVID-19; Translations: [Disease caused by 2019-nCoV] Onset: 07-04-2021 Past or Other Problems Problem Classification Problem Date Documented Da te Episodic/Chronic Bacterial infection; unspecified site (1 source) Other specified bacterial agents as the cause of diseases classified elsewhere; Translations: [Other specified bacterial agents as the cause of diseases classified elsewhere] Onset: 03-31-2024 Episodic Cardiac dysrhythmias (18 sources) Tachycardia; Translations: [Tachycardia, unspecified] Onset: 08-26-2019 08-26-2019 Episodic Influenza (9 sources) Influenza due to Influenza A virus; Translations: [Influenza] Onset: 08-25-2019 Resolved: 09-25-2019 08-26-2019 Episodic Mood disorders (9 sources) Mood disorders Onset: 05-28-2024 Resolved: 10-18-2024 05-28-2024 Nausea and vomiting (4 sources) Nausea with vomiting, unspecified; Translations: [NAUSEA WITH VOMITING UNSPECIFIED] Onset: 07-02-2021 Episodic Other aftercare (1 source) Other skilled nursing (current) drug therapy; Translations: [[facility]ISON CURRENT DRUG THERAPY] Onset: 07-04-2021 Episodic Other aftercare (1 source) skilled nursing (current) use of anticoagulants; Translations: [[employer] CURRNT USE ANTICOAGULANTS] Onset: 07-04-2021 Episodic Other connective tissue disease (1 source) Trigger finger; Translations: [Trigger finger, unspecified finger] Onset: 02-01-2019 02-01-2019 Episodic Other connective tissue disease (2 sources) Pain in left leg; Translations: [Pain in left leg] Onset: 01-15-2024 Episodic Other connective tissue disease (9 sources) Triggering of digit; Translations: [Trigger finger, unspecified finger] Onset: 02-01-2019 06-02-2022 Episodic Other connective tissue disease (2 sources) Leg swelling symptom Onset: 01-15-2024 Episodic Other lower respiratory disease (4 sources) Cough; Translations: [Cough] Onset: 03-02-2021 Episodic Other lower respiratory disease (2 sources) Cough; Translations: [COUGH] Onset: 2021 Episodic Other lower respiratory disease (1 source) Hypoxemia; Translations: [Hypoxemia] Onset: 05-28-2024 Episodic Other lower respiratory disease (1 source) Shortness of breath; Translations: [Shortness of breath] Onset: 05-28-2024 Episodic Other nutritional; endocrine; and metabolic disorders (10 sources) Severe obesity; Translations: [Class 2 severe obesity due to excess calories with serious comorbidity and body mass index (BMI) of 38.0 to 38.9 in adult] Onset: 02-01-2024 Resolved: 09-01-2024 02-01-2024 Chronic Other screening for suspected conditions (not mental disorders or infectious disease) (2 sources) Encounter for screening for malignant neoplasm of colon; Translations: [Encounter for screening mammogram for malignant neoplasm of breast] Onset: 02-17-2024 Episodic Other upper respiratory infections (5 sources) Viral upper respiratory tract infection; Translations: [Acute upper respiratory infection, unspecified] Onset: 2021 Episodic Pneumonia (except that caused by tuberculosis or sexually transmitted disease) (9 sources) Pneumonia; Translations: [Pneumonia, unspecified organism] Resolved: 12-22-2022 12-22-2022 Episodic Residual codes; unclassified (9 sources) Edema of foot; Translations: [Localized edema] Onset: 02-01-2024 02-01-2024 Episodic Residual codes; unclassified (1 source) Localized edema; Translations: [Localized edema] Onset: 02-01-2024 Episodic Respiratory failure; insufficiency; arrest (adult) (1 source) Acute respiratory failure; Translations: [Acute respiratory failure with hypoxia (HCC)] Episodic Unclassified (1 source) COUGH, UNSPECIFIED; Translations: [COUGH, UNSPECIFIED] Onset: 09-12-2021 Unclassified (1 source) CONTACT W/AND (SUSP) EXPOS COVID-19; Translations: [CONTACT W/AND (SUSP) EXPOS COVID-19] Onset: 06-25-2021 Unclassified (9 sources) Onset: 03-31-2024 03-31-2024 Results Test Name Value Interpretation Reference Range Facility POCT Influenza A/Influenza B /SARS-COV-2 Veritoron 10-18-2024 External Poct Influenza A Antigen Negative [facility] External Poct Influenza B Antigen Negative [facility] SARS-CoV-2 (COVID-19) Ag IA.rapid Ql (Resp) Negative [facility] POCT urinalysis dipstick onl yon 10-18-2024 Appearance (U) clear [facility] External Poct Urine Bilirubin Negative [facility] External Poct Urine Blood Trace [facility] External Poct Urine Color yellow [facility] External Poct Urine Glucose Negative [facility] External Poct Urine Ketones Negative [facility] External Poct Urine Leukocyte Esterase Negative [facility] External Poct Urine Nitrite Negative [facility] External Poct Urine Ph 6.5 Pr [facility] External Poct Urine Protein 3+ [facility] Comment on above: 30 External Poct Urine Specific Welda 1.02 [facility] External Poct Urine Urobilinogen 0.2 [facility] COMPREHENSIVE METABOLIC PANE Deven 09-01-2024 Albumin [Mass/Vol] 3.7 g/dL Normal 3.2-5.3 [facility] Comment on above: Performed By: #### 2 4331-1, CMP #### [facility] ([id number]) [address] [place] [address] ALP [Catalytic activity/Vol] 69 U/L Normal 39-130 [facility] Comment on above: Performed By: #### 2 4331-1, CMP #### [facility] ([id number]) [address], [address] [place] [address] ALT [Catalytic activity/Vol] 14 U/L Normal 0-31 [facility] Comment on above: Performed By: #### 2 4331-1, CMP #### [facility] ([id number]) [address], [address] [place] [address] Anion gap [Moles/Vol] 8 mmol/L Normal 5-15 [facility] Comment on above: Performed By: #### 2 4331-1, CMP #### [facility] ([id number]) [address] [place] [address] AST [Catalytic activity/Vol] 13 U/L Normal 0-41 [facility] Comment on above: Performed By: #### 2 4331-1, CMP #### [facility] ([id number]) [address], [address] [place] [address] Bilirubin [Mass/Vol] 0.4 mg/dL Normal 0.3-1.2 [facility] Comment on above: Performed By: #### 2 4331-1, CMP #### [facility] ([id number]) [address] [place] [address] Calcium [Mass/Vol] 8.5 mg/dL Normal 8.5-10.5 [facility] Comment on above: Performed By: #### 2 4331-1, CMP #### [facility] ([id number]) [address], [address] [place] [address] Chloride [Moles/Vol] 100 mmol/L Normal 98-109 [facility] Comment on above: Performed By: #### 2 4331-1, CMP #### [facility] ([id number]) [address], [address] [place] [address] CO2 [Moles/Vol] 31 mmol/L Normal 22-32 [facility] Comment on above: Performed By: #### 2 4331-1, CMP #### [facility] ([id number]) [address], [address] [place] [address] Creatinine [Mass/Vol] 0.66 mg/dL Normal 0.40-1.00 [facility] Comment on above: Result Comment: METH OD TRACEABLE TO IDMS STANDARD Performed By: #### 2 4331-1, CMP #### [facility] ([id number]) [address], [address] [place] [address] eGFR (CKD-EPI) NON-RACE DEPENDENT >90 Normal >59 [facility] Comment on above: Result Comment: Reported eGFR is based on the CKD-EPI 2020 equation that does not use a race coefficient. Performed By: #### 2 4331-1, CMP #### [facility] ([id number]) [address], [address] [place] [address] Glucose [Mass/Vol] 105 mg/dL High 65-99 [facility] Comment on above: Performed By: #### 2 4331-1, CMP #### [facility] ([id number]) [address], [address] [place] [address] Potassium [Moles/Vol] 4.2 mmol/L Normal 3.5-5.0 [facility] Comment on above: Performed By: #### 2 4331-1, CMP #### [facility] ([id number]) [address], [address] [place] [address] Protein [Mass/Vol] 7.2 g/dL Normal 6.0-8.0 [facility] Comment on above: Performed By: #### 2 4331-1, CMP #### [facility] ([id number]) [address], [address] [place] [address] Sodium [Moles/Vol] 139 mmol/L Normal 134-146 [facility] Comment on above: Performed By: #### 2 4331-1, CMP #### [facility] ([id number]) [address], [address] [place] [address] Urea nitrogen [Mass/Vol] 18 mg/dL Normal 5-27 [facility] Comment on above: Performed By: #### 2 4331-1, CMP #### [facility] ([id number]) [address], [address] [place] [address] Lipid 1996 panelon 5 Cholesterol [Mass/Vol] 256 mg/dL High 150-200 [facility] Comment on above: Performed By: #### 2 4331-1, CMP #### [facility] ([id number]) [address], [address] [place] [address] Cholesterol in HDL [Mass/Vol] 44 mg/dL Normal >39 [facility] Comment on above: Result Comment: HDL <40 mg/dL - High Risk HDL > or = 40mg/dL- Desirable HDL >60 mg/dL - Negative Risk Performed By: #### 2 4331-1, CMP #### [facility] ([id number]) [address], [address] [place] [address] Cholesterol in LDL [Mass/Vol] 185 mg/dL High <130 [facility] Comment on above: Result Comment: LDL <100 mg/dL - Desirable LDL >160 mg/dL - High Risk Performed By: #### 2 4331-1, CMP #### [facility] ([id number]) [address], [address] [place] [address] Cholesterol in VLDL [Mass/Vol] 27 mg/dL Normal 0-30 [facility] Comment on above: Performed By: #### 2 4331-1, CMP #### [facility] ([id number]) [address], [address] [place] [address] CHOLESTEROL:HDL 5.8 High 1.0-5.0 [facility] Comment on above: Performed By: #### 2 4331-1, CMP #### [facility] ([id number]) [address], [address] [place] [address] Triglyceride [Mass/Vol] 133 mg/dL Normal 27-150 [facility] Comment on above: Performed By: #### 2 4331-1, CMP #### [facility] ([id number]) [address], [address] [place] [address] CBC AND AUTO DIFFon 05-30-20 24 ABSOLUTE BASOPHIL 0.1 X10E9/L Normal 0.0-0.2 [facility] Comment on above: Performed By: #### C SHINE [facility], 53637-3 #### [facility] ([id number]) [address] [place] [address] ABSOLUTE NEUTROPHIL 17.2 X10E9/L High 1.5-6.6 [facility] Comment on above: Performed By: #### C SHINE [facility], 57901-0 #### [facility] ([id number]) [address] [place] [address] Basophils/100 WBC (Bld) 0.8 % Normal [facility] Comment on above: Performed By: #### C SHINE [facility], 44521-7 #### [facility] ([id number]) [address] [place] [address] Eosinophils (Bld) [#/Vol] 0.0 10*3/uL Normal 0.0-0.4 [facility] Comment on above: Performed By: #### C SHINE [facility], 1987-10, 05139-6 #### [facility] ([id number]) [address] [place] [address] 9[address]88 Eosinophils/100 WBC (Bld) 0.3 % Normal [facility] Comment on above: Performed By: #### Felisha RIOJAS [facility], 1987-10, 85979-0 #### [facility] ([id number]) [address] [place] [address] Erythrocyte distribution width (RBC) [Ratio] 13.5 % Normal 11.5-15.0 [facility] Comment on above: Performed By: #### Felisha RIOJAS [facility], 1987-10, 96730-8 #### [facility] ([id number]) [address] [place] [address] Hematocrit (Bld) [Volume fraction] 45.1 % Normal 35-47 [facility] Comment on above: Performed By: #### Felisha RIOJAS [facility], 1987-10, 54303-5 #### [facility] ([id number]) [address] [place] [address]45 Hemoglobin (Bld) [Mass/Vol] 14.7 g/dL Normal 11.7-15.5 [facility] Comment on above: Performed By: #### Felisha RIOJAS [facility], 1987-10, 07627-1 #### [facility] ([id number]) [address] [place] [address] Lymphocytes (Bld) [#/Vol] 1.0 10*3/uL Normal 1.0-3.5 [facility] Comment on above: Performed By: #### Felisha RIOJAS [facility], 1987-10, 12740-8 #### [facility] ([id number]) [address] [place] [address] 99222 Lymphocytes/100 WBC (Bld) 5.2 % Normal [facility] Comment on above: Performed By: #### C SHINE [facility], 1987-10, #### [facility] ([id number]) [address] [place] [address] 87558 MCH (RBC) [Entitic mass] 29.7 pg Normal 27-34 [facility] Comment on above: Performed By: #### C SHINE [facility], 1987-10, #### [facility] ([id number]) [address] [place] [address] 21676 MCHC (RBC) [Mass/Vol] 32.7 g/dL Normal 32-36 [facility] Comment on above: Performed By: #### C SHINE [facility], 1987-10, #### [facility] ([id number]) [address] [place] [address] 91396 MCV (RBC) [Entitic vol] 91 fL Normal 80-100 [facility] Comment on above: Performed By: #### C SHINE [facility], 1987-10, 91116-8 #### [facility] ([id number]) [address] [place] [address] 82555 Monocytes (Bld) [#/Vol] 0.5 10*3/uL Normal 0-0.9 [facility] Comment on above: Performed By: #### Felisha RIOJAS [facility], 1987-10, #### [facility] ([id number]) [address] [place] [address] 04194 Monocytes/100 WBC (Bld) 2.7 % Normal [facility] Comment on above: Performed By: #### C SHINE [facility], 1987-10, #### [facility] ([id number]) [address] [place] [address] 41151 Neutrophils/100 WBC (Bld) 91.0 % Normal [facility] Comment on above: Performed By: #### C SHINE CMP, 1987-10, 74311-3 #### [facility] ([id number]) [address] [place] [address] 24629 Platelet mean volume (Bld) [Entitic vol] 8.1 fL Normal 7-12 [facility] Comment on above: Performed By: #### Felisha RIOJAS CMP, 1987-10, #### [facility] ([id number]) [address] [place] [address] 08013 Platelets (Bld) [#/Vol] 393 10*3/uL Normal 150-450 [facility] Comment on above: Performed By: #### Felisha RIOJAS CMP, 1987-10, #### [facility] ([id number]) [address] [place] [address] 83284 RBC COUNT 4.95 X10E12/L Normal 3.80-5.20 [facility] Comment on above: Performed By: #### C SHINE CMP, 1987-10, 67853-2 #### [facility] ([id number]) [address] [place] [address] 63643 WBC (Bld) [#/Vol] 18.8 10*3/uL High 4.0-11.0 [facility] Comment on above: Performed By: #### Felisha RIOJAS CMP, 1987-10, 46334-3 #### [facility] ([id number]) [address] [place] [address] 04229 COMPREHENSIVE METABOLIC PANE Deven 05-30-2024 Albumin [Mass/Vol] 3.6 g/dL Normal 3.2-5.3 [facility] Comment on above: Performed By: #### Felisha RIOJAS, CMP, 1987-10, 10217-2 #### [facility] ([id number]) [address] [place] [address] 29141 ALP [Catalytic activity/Vol] 56 U/L Normal 39-130 [facility] Comment on above: Performed By: #### C SHINE, CMP, 1987-10, 35259-9 #### [facility] ([id number]) [address] [place] [address] 37039 ALT [Catalytic activity/Vol] 12 U/L Normal 0-31 [facility] Comment on above: Performed By: #### C SHINE [facility], 1987-10, 65430-7 #### [facility] ([id number]) [address] [place] [address] 28941 Anion gap [Moles/Vol] 13 mmol/L Normal 5-15 [facility] Comment on above: Performed By: #### C SHINE [facility], 1987-10, 74220-7 #### [facility] ([id number]) [address] [place] [address] 10582 AST [Catalytic activity/Vol] 21 U/L Normal 0-41 [facility] Comment on above: Performed By: #### C SHINE [facility], 1987-10, 14197-2 #### [facility] ([id number]) [address] [place] [address] 75337 Bilirubin [Mass/Vol] 0.3 mg/dL Normal 0.3-1.2 [facility] Comment on above: Performed By: #### C SHINE [facility], 1987-10, 28722-0 #### [facility] ([id number]) [address] [place] [address] 79520 Calcium [Mass/Vol] 8.7 mg/dL Normal 8.5-10.5 [facility] Comment on above: Performed By: #### C BCA, CMP, 1987-10, 24010-7 #### [facility] ([id number]) [address] [place] [address] 52947 Chloride [Moles/Vol] 99 mmol/L Normal 98-109 [facility] Comment on above: Performed By: #### C ZULY RIOJAS, 1987-10, #### [facility] ([id number]) [address] [place] [address] 59600 CO2 [Moles/Vol] 25 mmol/L Normal 22-32 [facility] Comment on above: Performed By: #### C ZULY RIOJAS, 1987-10, #### [facility] ([id number]) [address] [place] [address] 41329 Creatinine [Mass/Vol] 0.94 mg/dL Normal 0.40-1.00 [facility] Comment on above: Result Comment: METH OD TRACEABLE TO IDMS STANDARD Performed By: #### C ZULY RIOJAS, 1987-10, #### [facility] ([id number]) [address] [place] [address] 24684 GFR/1.73 sq M.predicted among non-blacks MDRD (S/P/Bld) [Vol rate/Area] 67 mL/min/{1.73_m2} Normal >59 [facility] Comment on above: Result Comment: Reported eGFR is based on the CKD-EPI 2020 equation that does not use a race coefficient. Performed By: #### C ZULY RIOJAS, 1987-10, #### [facility] ([id number]) [address] [place] [address] 94257 Glucose [Mass/Vol] 230 mg/dL High 65-99 [facility] Comment on above: Performed By: #### C ZULY RIOJAS, 1987-10, #### [facility] ([id number]) [address] [place] [address] 06946 Potassium [Moles/Vol] 4.4 mmol/L Normal 3.5-5.0 [facility] Comment on above: Performed By: #### C ZULY RIOJAS, 1987-10, #### [facility] ([id number]) [address] [place] [address] 04453 Protein [Mass/Vol] 7.6 g/dL Normal 6.0-8.0 [facility] Comment on above: Performed By: #### C ZULY RIOJAS, 1987-10, 00446-5 #### [facility] ([id number]) [address] [place] [address] 67034 Sodium [Moles/Vol] 137 mmol/L Normal 134-146 [facility] Comment on above: Performed By: #### C ZULY RIOJAS, 1987-10, 55883-6 #### [facility] ([id number]) [address] [place] [address] 80036 Urea nitrogen [Mass/Vol] 29 mg/dL High 5-27 [facility] Comment on above: Performed By: #### C ZULY RIOJAS, 1987-10, 44492-2 #### [facility] ([id number]) [address] [place] [address] 20926 MAGNESIUMon 05-30-2024 Magnesium [Mass/Vol] 2.2 mg/dL Normal 1.8-2.6 [facility] Comment on above: Performed By: #### C ZULY RIOJAS, 1987-10, 65674-7 #### [facility] ([id number]) [address] [place] [address] 95024 CBC AND AUTO DIFFon 05-29-20 24 ABSOLUTE BASOPHIL 0.0 X10E9/L Normal 0.0-0.2 [facility] Comment on above: Performed By: #### C ZULY RIOJAS, 1987-10, 49949-8 #### [facility] ([id number]) [address] [place] [address] 40628 ABSOLUTE NEUTROPHIL 8.2 X10E9/L High 1.5-6.6 [facility] Comment on above: Performed By: #### C ZULY RIOJAS, 1987-10, 31123-5 #### [facility] ([id number]) [address] [place] [address] 22922 Basophils/100 WBC (Bld) 0.5 % Normal [facility] Comment on above: Performed By: #### C ZULY RIOJAS, 1987-10, #### [facility] ([id number]) [address] [place] [address] 80509 Eosinophils (Bld) [#/Vol] 0.0 10*3/uL Normal 0.0-0.4 [facility] Comment on above: Performed By: #### Felisha RIOJAS CMP, 1987-10, #### [facility] ([id number]) [address] [place] [address] 88764 Eosinophils/100 WBC (Bld) 0.1 % Normal [facility] Comment on above: Performed By: #### Felisha RIOJAS CMP, 1987-10, #### [facility] ([id number]) [address] [place] [address] 46084 Erythrocyte distribution width (RBC) [Ratio] 13.2 % Normal 11.5-15.0 [facility] Comment on above: Performed By: #### Felisha RIOJAS CMP, 1987-10, #### [facility] ([id number]) [address] [place] [address] 38062 Hematocrit (Bld) [Volume fraction] 44.2 % Normal 35-47 [facility] Comment on above: Performed By: #### Felisha RIOJAS CMP, 1987-10, #### [facility] ([id number]) [address] [place] [address] 33718 Hemoglobin (Bld) [Mass/Vol] 14.9 g/dL Normal 11.7-15.5 [facility] Comment on above: Performed By: #### Felisha RIOJAS CMP, 1987-10, #### [facility] ([id number]) [address] [place] [address] 23016 Lymphocytes (Bld) [#/Vol] 0.8 10*3/uL Low 1.0-3.5 [facility] Comment on above: Performed By: #### Felisha RIOJAS CMP, 1987-10, #### [facility] ([id number]) [address] [place] [address] 20630 Lymphocytes/100 WBC (Bld) 8.3 % Normal [facility] Comment on above: Performed By: #### Felisha RIOJAS CMP, 1987-10, #### [facility] ([id number]) [address] [place] [address] 74620 MCH (RBC) [Entitic mass] 30.4 pg Normal 27-34 [facility] Comment on above: Performed By: #### Felisha RIOJAS CMP, 1987-10, #### [facility] ([id number]) [address] [place] [address] 71349 MCHC (RBC) [Mass/Vol] 33.7 g/dL Normal 32-36 [facility] Comment on above: Performed By: #### Felisha RIOJAS CMP, 1987-10, #### [facility] ([id number]) [address] [place] [address] 86638 MCV (RBC) [Entitic vol] 90 fL Normal 80-100 [facility] Comment on above: Performed By: #### Felisha RIOJAS CMP, 1987-10, #### [facility] ([id number]) [address] [place] [address] 34768 Monocytes (Bld) [#/Vol] 0.1 10*3/uL Normal 0-0.9 [facility] Comment on above: Performed By: #### Felisha RIOJAS CMP, 1987-10, #### [facility] ([id number]) [address] [place] [address] 42802 Monocytes/100 WBC (Bld) 1.2 % Normal [facility] Comment on above: Performed By: #### Felisha RIOJAS [facility], 1987-10, 30809-1 #### [facility] ([id number]) [address] [place] [address] 72017 Neutrophils/100 WBC (Bld) 89.9 % Normal [facility] Comment on above: Performed By: #### C SHINE [facility], 1987-10, 20193-5 #### [facility] ([id number]) [address] [place] [address] 36618 Platelet mean volume (Bld) [Entitic vol] 7.9 fL Normal 7-12 [facility] Comment on above: Performed By: #### Felisha RIOJAS [facility], 1987-10, 38515-7 #### [facility] ([id number]) [address] [place] [address] 44673 Platelets (Bld) [#/Vol] 434 10*3/uL Normal 150-450 [facility] Comment on above: Performed By: #### Felisha RIOJAS [facility], 1987-10, 16675-5 #### [facility] ([id number]) [address] [place] [address] 90989 RBC COUNT 4.90 X10E12/L Normal 3.80-5.20 [facility] Comment on above: Performed By: #### Felisha RIOJAS CMP, 1987-10, 79873-3 #### [facility] ([id number]) [address] [place] [address] 35869 WBC (Bld) [#/Vol] 9.1 10*3/uL Normal 4.0-11.0 [facility] Comment on above: Performed By: #### Felisha RIOJAS CMP, 1987-10, 86351-6 #### [facility] ([id number]) [address] [place] [address] 34291 COMPREHENSIVE METABOLIC PANE Deven 05-29-2024 Albumin [Mass/Vol] 3.5 g/dL Normal 3.2-5.3 [facility] Comment on above: Performed By: #### C BCA, CMP, 1987-10, 77807-3 #### [facility] ([id number]) [address] [place] [address] [id number] ALP [Catalytic activity/Vol] 62 U/L Normal 39-130 [facility] Comment on above: Performed By: #### C BCA, CMP, 1987-10, 60564-8 #### [facility] ([id number]) [address] [place] [address] [id number] ALT [Catalytic activity/Vol] 13 U/L Normal 0-31 [facility] Comment on above: Performed By: #### C BCA, CMP, 1987-10, 05034-8 #### [facility] ([id number]) [address] [place] [address] [id number] Anion gap [Moles/Vol] 10 mmol/L Normal 5-15 [facility] Comment on above: Performed By: #### C BCA, CMP, 1987-10, 79878-8 #### [facility] ([id number]) [address] [place] [address] [id number] AST [Catalytic activity/Vol] 17 U/L Normal 0-41 [facility] Comment on above: Performed By: #### C BCA, CMP, 1987-10, 76175-0 #### [facility] ([id number]) [address] [place] [address] [phone] Bilirubin [Mass/Vol] 0.3 mg/dL Normal 0.3-1.2 [facility] Comment on above: Performed By: #### C BCA, CMP, 1987-10, 26929-1 #### [facility] ([id number]) [address] [place] [address] 16291 Calcium [Mass/Vol] 8.9 mg/dL Normal 8.5-10.5 [facility] Comment on above: Performed By: #### C SHINE [facility], 1987-10, 59929-0 #### [facility] ([id number]) [address] [place] [address] 67829 Chloride [Moles/Vol] 101 mmol/L Normal 98-109 [facility] Comment on above: Performed By: #### C SHINE [facility], 1987-10, 52895-2 #### [facility] ([id number]) [address] [place] [address] 08497 CO2 [Moles/Vol] 28 mmol/L Normal 22-32 [facility] Comment on above: Performed By: #### C SHINE [facility], 1987-10, 53206-6 #### [facility] ([id number]) [address] [place] [address] 38025 Creatinine [Mass/Vol] 0.90 mg/dL Normal 0.40-1.00 [facility] Comment on above: Result Comment: METH OD TRACEABLE TO IDMS STANDARD Performed By: #### C SHINE [facility], 1987-10, 30573-7 #### [facility] ([id number]) [address] [place] [address] 69490 GFR/1.73 sq M.predicted among non-blacks MDRD (S/P/Bld) [Vol rate/Area] 71 mL/min/{1.73_m2} Normal >59 [facility] Comment on above: Result Comment: Reported eGFR is based on the CKD-EPI 2020 equation that does not use a race coefficient. Performed By: #### C ZULY RIOJAS, 1987-10, 44000-6 #### [facility] ([id number]) [address] [place] [address] 62164 Glucose [Mass/Vol] 204 mg/dL High 65-99 [facility] Comment on above: Performed By: #### C SHINE [facility], 1987-10, 48343-5 #### [facility] ([id number]) [address] [place] [address] 31759 Potassium [Moles/Vol] 4.7 mmol/L Normal 3.5-5.0 [facility] Comment on above: Performed By: #### Felisha RIOJAS [facility], 1987-10, 53766-5 #### [facility] ([id number]) [address] [place] [address] 07712 Protein [Mass/Vol] 7.5 g/dL Normal 6.0-8.0 [facility] Comment on above: Performed By: #### Felisha RIOJAS [facility], 1987-10, 66457-8 #### [facility] ([id number]) [address] [place] [address] 91844 Sodium [Moles/Vol] 139 mmol/L Normal 134-146 [facility] Comment on above: Performed By: #### Felisha RIOJAS [facility], 1987-10, 52792-6 #### [facility] ([id number]) [address] [place] [address] 46474 Urea nitrogen [Mass/Vol] 20 mg/dL Normal 5-27 [facility] Comment on above: Performed By: #### Felisha RIOJAS [facility], 1987-10, 94651-8 #### [facility] ([id number]) [address] [place] [address] 32219 Fibrin D-dimer DDU (PPP) [Ma ss/Vol]on 05-29-2024 D DIMER <150 Normal <255 [facility] Comment on above: Result Comment: Results <255 ng/mL DDU: The presence of a VTE can safely be excluded with a negative D-Dimer result and Wells score. A negative result doesn't exclude the possibility of DIC. The test be repeated along with other diagnostic tests if the patient's symptoms persist or worsen. [email or web address] Performed By: #### C SHINE, CMP, 1987-10, #### [facility] ([id number]) [address] [place] [address] 12122 MAGNESIUMon 05-29-2024 Magnesium [Mass/Vol] 2.0 mg/dL Normal 1.8-2.6 [facility] Comment on above: Performed By: #### C SHINE, CMP, 1987-10, 05882-3 #### [facility] ([id number]) [address] [place] [address] 73882 CBC AND AUTO DIFFon 05-28-20 24 ABSOLUTE BASOPHIL 0.1 X10E9/L Normal 0.0-0.2 [facility] Comment on above: Performed By: #### C BCA, [facility], 1987-10, 60990-9 #### [facility] ([id number]) [address] [place] [address] 01500 ABSOLUTE NEUTROPHIL 4.7 X10E9/L Normal 1.5-6.6 [facility] Comment on above: Performed By: #### C BCA, CMP, 1987-10, 26573-6 #### [facility] ([id number]) [address] [place] [address] 14582 Basophils/100 WBC (Bld) 1.3 % Normal [facility] Comment on above: Performed By: #### C BCA, CMP, 1987-10, 79895-8 #### [facility] ([id number]) [address] [place] [address] 89760 Eosinophils (Bld) [#/Vol] 0.2 10*3/uL Normal 0.0-0.4 [facility] Comment on above: Performed By: #### C BCA, CMP, 1987-10, 62460-9 #### [facility] ([id number]) [address] [place] [address] 44462 Eosinophils/100 WBC (Bld) 2.3 % Normal [facility] Comment on above: Performed By: #### Felisha RIOJAS [facility], 1987-10, 24870-4 #### [facility] ([id number]) [address] [place] [address] 67523 Erythrocyte distribution width (RBC) [Ratio] 13.5 % Normal 11.5-15.0 [facility] Comment on above: Performed By: #### C SHINE [facility], 1987-10, 65250-0 #### [facility] ([id number]) [address] [place] [address] 74580 Hematocrit (Bld) [Volume fraction] 41.6 % Normal 35-47 [facility] Comment on above: Performed By: #### Felisha RIOJAS [facility], 1987-10, #### [facility] ([id number]) [address] [place] [address] 28872 Hemoglobin (Bld) [Mass/Vol] 14.0 g/dL Normal 11.7-15.5 [facility] Comment on above: Performed By: #### Felisha RIOJAS [facility], 1987-10, 78215-4 #### [facility] ([id number]) [address] [place] [address] 78079 Lymphocytes (Bld) [#/Vol] 3.1 10*3/uL Normal 1.0-3.5 [facility] Comment on above: Performed By: #### Felisha RIOJAS [facility], 1987-10, 58459-6 #### [facility] ([id number]) [address] [place] [address] 81387 Lymphocytes/100 WBC (Bld) 35.0 % Normal [facility] Comment on above: Performed By: #### Felisha RIOJAS [facility], 1987-10, #### [facility] ([id number]) [address] [place] [address] 31545 MCH (RBC) [Entitic mass] 30.3 pg Normal 27-34 [facility] Comment on above: Performed By: #### Felisha RIOJAS [facility], 1987-10, #### [facility] ([id number]) [address] [place] [address] 03064 MCHC (RBC) [Mass/Vol] 33.6 g/dL Normal 32-36 [facility] Comment on above: Performed By: #### C SHINE [facility], 1987-10, #### [facility] ([id number]) [address] [place] [address] 80700 MCV (RBC) [Entitic vol] 90 fL Normal 80-100 [facility] Comment on above: Performed By: #### Felisha RIOJAS [facility], 1987-10, #### [facility] ([id number]) [address] [place] [address] 43114 Monocytes (Bld) [#/Vol] 0.7 10*3/uL Normal 0-0.9 [facility] Comment on above: Performed By: #### Felisha RIOJAS [facility], 1987-10, 54542-9 #### [facility] ([id number]) [address] [place] [address] 14053 Monocytes/100 WBC (Bld) 7.8 % Normal [facility] Comment on above: Performed By: #### Felisha RIOJAS [facility], 1987-10, 96716-3 #### [facility] ([id number]) [address] [place] [address] 11158 Neutrophils/100 WBC (Bld) 53.6 % Normal [facility] Comment on above: Performed By: #### Felisha RIOJAS [facility], 1987-10, #### [facility] ([id number]) [address] [place] [address] 04597 Platelet mean volume (Bld) [Entitic vol] 7.7 fL Normal 7-12 [facility] Comment on above: Performed By: #### C SHINE CMP, 1987-10, #### [facility] ([id number]) [address] [place] [address] 24979 Platelets (Bld) [#/Vol] 382 10*3/uL Normal 150-450 [facility] Comment on above: Performed By: #### C SHINE, CMP, 1987-10, #### [facility] ([id number]) [address] [place] [address] 78714 RBC COUNT 4.61 X10E12/L Normal 3.80-5.20 [facility] Comment on above: Performed By: #### Felisha RIOJAS CMP, 1987-10, #### [facility] ([id number]) [address] [place] [address] 46976 WBC (Bld) [#/Vol] 8.8 10*3/uL Normal 4.0-11.0 [facility] Comment on above: Performed By: #### C SHINE CMP, 1987-10, 60865-6 #### [facility] ([id number]) [address] [place] [address] 81350 COMPREHENSIVE METABOLIC PANE Deven 05-28-2024 Albumin [Mass/Vol] 3.2 g/dL Normal 3.2-5.3 [facility] Comment on above: Performed By: #### C BCA, CMP, 1987-10, 20791-8 #### [facility] ([id number]) [address] [place] [address] 80809 ALP [Catalytic activity/Vol] 58 U/L Normal 39-130 [facility] Comment on above: Performed By: #### Felisha RIOJAS CMP, 1987-10, 08200-5 #### [facility] ([id number]) [address] [place] [address] 76804 ALT [Catalytic activity/Vol] 13 U/L Normal 0-31 [facility] Comment on above: Performed By: #### C SHINE CMP, 1987-10, 83535-4 #### [facility] ([id number]) [address] [place] [address] 15070 Anion gap [Moles/Vol] 8 mmol/L Normal 5-15 [facility] Comment on above: Performed By: #### C SHINE, CMP, 1987-10, 00100-8 #### [facility] ([id number]) [address] [place] [address] 58303 AST [Catalytic activity/Vol] 13 U/L Normal 0-41 [facility] Comment on above: Performed By: #### C SHINE CMP, 1987-10, 06051-8 #### [facility] ([id number]) [address] [place] [address] 08504 Bilirubin [Mass/Vol] 0.3 mg/dL Normal 0.3-1.2 [facility] Comment on above: Performed By: #### C SHINE, CMP, 1987-10, 98656-9 #### [facility] ([id number]) [address] [place] [address] 35483 Calcium [Mass/Vol] 8.4 mg/dL Low 8.5-10.5 [facility] Comment on above: Performed By: #### C BCA, CMP, 1987-10, 51751-2 #### [facility] ([id number]) [address] [place] [address] 51819 Chloride [Moles/Vol] 100 mmol/L Normal 98-109 [facility] Comment on above: Performed By: #### C BCA, CMP, 1987-10, 96094-1 #### [facility] ([id number]) [address] [place] [address] 70371 CO2 [Moles/Vol] 30 mmol/L Normal 22-32 [facility] Comment on above: Performed By: #### C ZULY RIOJAS, 1987-10, 79762-3 #### [facility] ([id number]) [address] [place] [address] 63876 Creatinine [Mass/Vol] 0.83 mg/dL Normal 0.40-1.00 [facility] Comment on above: Result Comment: METH OD TRACEABLE TO IDMS STANDARD Performed By: #### C ZULY RIOJAS, 1987-10, 07515-0 #### [facility] ([id number]) [address] [place] [address] 38021 GFR/1.73 sq M.predicted among non-blacks MDRD (S/P/Bld) [Vol rate/Area] 78 mL/min/{1.73_m2} Normal >59 [facility] Comment on above: Result Comment: Reported eGFR is based on the CKD-EPI 2020 equation that does not use a race coefficient. Performed By: #### C ZULY RIOJAS, 1987-10, 00330-4 #### [facility] ([id number]) [address] [place] [address] 74768 Glucose [Mass/Vol] 111 mg/dL High 65-99 [facility] Comment on above: Performed By: #### C ZULY RIOJAS, 1987-10, 63256-5 #### [facility] ([id number]) [address] [place] [address] 74191 Potassium [Moles/Vol] 3.9 mmol/L Normal 3.5-5.0 [facility] Comment on above: Performed By: #### C ZULY RIOJAS, 1987-10, 26111-2 #### [facility] ([id number]) [address] [place] [address] 59894 Protein [Mass/Vol] 7.0 g/dL Normal 6.0-8.0 [facility] Comment on above: Performed By: #### C SHINE [facility], 1987-10, 36938-1 #### [facility] ([id number]) [address] [place] [address] 09183 Sodium [Moles/Vol] 138 mmol/L Normal 134-146 [facility] Comment on above: Performed By: #### Felisha RIOJAS [facility], 1987-10, 51737-8 #### [facility] ([id number]) [address] [place] [address] 55026 Urea nitrogen [Mass/Vol] 18 mg/dL Normal 5-27 [facility] Comment on above: Performed By: #### Felisha RIOJAS [facility], 1987-10, 01477-8 #### [facility] ([id number]) [address] [place] [address] 64158 MAGNESIUMon 05-28-2024 Magnesium [Mass/Vol] 1.9 mg/dL Normal 1.8-2.6 [facility] Comment on above: Performed By: #### Felisha RIOJAS [facility], 1987-10, 57572-3 #### [facility] ([id number]) [address] [place] [address] 00553 Magnesium [Mass/Vol] 2.1 mg/dL Normal 1.8-2.6 [facility] Comment on above: Performed By: #### Felisha RIOJAS [facility], 1987-10, 98440-8 #### [facility] ([id number]) [address] [place] [address] 77723 Mycoplasma pneumoniae?Antibo dy, IgMon 05-28-2024 M. pneumoniae Antibody IgM 0.45 U/L Normal <=0.76 [facility] Comment on above: Result Comment: NOTE INTERPRETIVE INFORMATION: Mycoplasma pneumoniae Ab, IgM 0.76 U/L or less .......... Negative: No clinically significant amount of M. pneumoniae IgM antibody detected. 0.77 - 0.95 U/L ........... Low Positive: M. pneumoniae- specific IgM presumptively detected. Collection of a follow-up sample in 1-2 weeks is recommended to assure reactivity. 0.96 U/L or greater ....... Positive: Highly significant amount of M. pneumoniae- specific IgM antibody detected. However, low levels of IgM antibodies may occasionally persist for more than 12 months post-infection. Performed By: [facility] [address] [place] [address] 48718 Guide Escort: Alexis Vieyra MD, PhD CLIA Number: [id number] Performed By: #### C ZULY RIOJAS, 1987-10, #### [facility] ([id number]) [address] [place] [address] 59188 Natriuretic peptide B [Mass/ Vol]on 05-28-2024 Natriuretic peptide B (Bld) [Mass/Vol] 57 pg/mL Normal <100.0 [facility] Comment on above: Performed By: #### C ZULY RIOJAS, 1987-10, #### [facility] ([id number]) [address] [place] [address] 83709 Procalcitonin IA [Mass/Vol]o n 05-28-2024 PROCALCITONIN 0.05 ng/mL High <0.05 [facility] Comment on above: Result Comment: NOTE <0.50 ng/mL - Low risk of severe sepsis and/or septic shock. <2.00 ng/mL - Recommend retesting within 6-24 hours. >2.00 ng/mL - High risk of sepsis and/or septic shock. Performed By: #### C ZULY RIOJAS, 1987-10, #### [facility] ([id number]) [address] [place] [address] 13718 RESP PATHOGENS/[id number] 05-28-2024 Respiratory pathogens DNA and RNA panel RAAD+non-probe (Nph) SPECIMEN SOURCE NASO PHARYNX ADENOVIRUS Not detected (qualifier value) CORONAVIRUS 229E Not detected (qualifier value) CORONAVIRUS HKU1 Not detected (qualifier value) CORONAVIRUS NL63 Not detected (qualifier value) CORONAVIRUS OC43 Not detected (qualifier value) HUMAN METAPNEUVIRUS Not detected (qualifier value) RHINO/ENTEROVIRUS Not detected (qualifier value) INFLUENZA A Not detected (qualifier value) INFLUENZA B Not detected (qualifier value) PARAINFLUENZA 1 Not detected (qualifier value) PARAINFLUENZA 2 Not detected (qualifier value) PARAINFLUENZA 3 Not detected (qualifier value) PARAINFLUENZA 4 Not detected (qualifier value) RESP SYNCYTIAL VIRUS Not detected (qualifier value) BORD PARAPERTUSSIS Not detected (qualifier value) BORDETELLA PERTUSSIS Not detected (qualifier value) CHLAM.PNEUMONIAE Not detected (qualifier value) MYCO. PNEUMONIAE Not detected (qualifier value) SARS CoV 2 Not detected (qualifier value) NOTE The [employer] Respiratory Panel 2.1 (RP2.1) is a multiplexed nucleic acid test intended for the simultaneous qualitative detection and differentiation of nucleic acid from multiple viral and bacterial respiratory organisms, including nucleic acid from Severe Acute Respiratory Syndrome Coronavirus 2 (SARS-CoV-2), in nasopharyngeal swabs obtained from individuals suspected of COVID-19 by their healthcare provider. Testing is limited to laboratories certified under the Clinical Laboratory Improvement Amendments of 1988 (CLIA), to perform high complexity or moderate complexity tests. SARS-CoV-2 RNA and nucleic acids from the other respiratory viral and bacterial organisms identified by this test are generally detectable in nasopharyngeal swabs during the acute phase of infection. The detection and identification of specific viral and bacterial nucleic acids from individuals exhibiting signs and/or symptoms of respiratory infection is indicative of the presence of the identified microorganism and aids in the diagnosis of respiratory infection if used in conjunction with other clinical and epidemiological information. Positive results are indicative of the presence of the identified organism, but do not rule out co-infection with other pathogens. The agent(s) detected by the [employer] RP2.1 may not be the definite cause of disease and clinical correlation with patient history and other diagnostic information is necessary to determine patient infection status. Negative results in the setting of a respiratory illness may be due to infection with pathogens not detected by this test, or lower respiratory tract infection that may not be detected by a nasopharyngeal specimen. Negative results do not preclude SARS-CoV-2 infection and should not be used as the sole basis for patient management decisions. Negative JULI-CoV-2 results must be combined with clinical observations, patient history and epidemiological information. Negative results for other organisms identified by the test may require additional laboratory testing when evaluating a patient with possible respiratory tract infection. Normal [facility] Comment on above: Performed By: #### C SHINE, ZULY, 1988-, 59274-8 #### [facility] ([id number]) [address] [facility] [place] [address] SARS/FLU A+B/RSV by NAAT/Mol ecularon 05-28-2024 SARS/FLU A+B/RSV by NAAT/Molecular FLU A PCR Negative (qualifier value) FLU B PCR Negative (qualifier value) RSV by PCR Negative (qualifier value) SARS CoV 2 Not detected (qualifier value) NOTE The Xpert Xpress SARS-CoV-2/Flu/RSV Plus test is a rapid, multiplexed real-time RT-PCR test intended for the simultaneous qualitative detection and differentiation of SARS-CoV-2, influenza A, influenza B and respiratory syncytial virus (RSV) viral RNA from individuals suspected of respiratory viral infection consistent with COVID-19 by their healthcare provider. This test has not been validated in asymptomatic patients. The Xpert Xpress SARS-CoV-2 test is intended for use by qualified and trained operators who are performing tests using either [employer] DX or [employer] systems and is limited to laboratories that meet the CLIA requirements to perform high and moderate complexity tests. The Xpert Xpress SARS-CoV-2/Flu/RSV Plus is only for use under the Food and Drug Administration's Emergency Use Authorization. Results are for the simultaneous detection and differentiation of SARS-CoV-2, influenza A, influenza B and RSV nucleic acids in clinical specimens. SARS-CoV-2, influenza A, influenza B and RSV RNA identified by this test are generally detectable in upper respiratory samples during the acute phase of infection. Positive results are indicative of the presence of the identified virus, but do not rule out bacterial infection or co-infection with other pathogens not detected by this test. Clinical correlation with patient history and other diagnostic information is necessary to determine patient infection status. The agent detected may not be the definite cause of disease. Negative results do not preclude SARS-CoV-2, influenza A, influenza B and RSV infection and should not be used as the sole basis for treatment or other patient management decisions. Negative results must be combined with clinical observations, patient history and epidemiological information. An Invalid result may occur with specimen-associated inhibition unable to be resolved with specimen repeat. Fact Sheet for Healthcare Providers: https://www.fda.gov/med ia/421945/download Fact Sheet for Patients: https://www.fda.gov/med ia/633044/download Normal [facility] Comment on above: Performed By: #### C ZULY RIOJAS, 1987-10, 75809-7 #### [facility] ([id number]) [address] [place] [address] 16934 Troponin I.cardiac High sens itivity method [Mass/Vol]on 05-28-2024 1 HOUR TROP I, HIGH SENSITIVITY 2 ng/L Normal <16 [facility] Comment on above: Performed By: #### C ZULY RIOJAS, 1987-10, 61092-2 #### [facility] ([id number]) [address] [place] [address] 66144 TROPONIN I, HIGH SENSITIVITY 3 ng/L Normal <16 [facility] Comment on above: Performed By: #### C ZULY RIOJAS, 1987-10, 18642-5 #### [facility] ([id number]) [address] [place] [address] 78022 XR CHEST 1 VWon 05-28-2024 XR CHEST 1 VW XR CHEST 1 VW XR CHEST 1 VW History: Cough. Congestion. Short of breath One view study. Comparison: 03/11/2023 Impression: * No significant interval change.Prominent pericardial fat pad on the right is observed. Appearance of the chest is otherwise unchanged. There is no focal infiltrate or acute process. No pneumothorax. The cardiac silhouette is otherwise unchanged. Finalized by Any Brody MD on 05/28/2024 6:11 PM Normal [facility] FREE T3on 05-11-2024 Free T3 [Mass/Vol] 3.17 pg/mL Normal 2.50-3.90 [facility] Comment on above: Performed By: #### C ZULY RIOJAS, 1987-10, 99212-9 #### [facility] ([id number]) [address] [facility], [place] [address] FREE T4on 05-11-2024 Free T4 [Mass/Vol] 0.91 ng/dL Normal 0.61-1.60 [facility] Comment on above: Performed By: #### C SHINE [facility], 1987-10, 87501-2 #### [facility] ([id number]) [address] [facility], [place] [address] TSH Qnon 05-11-2024 TSH 0.86 uIU/mL Normal 0.49-4.67 [facility] Comment on above: Performed By: #### 3 016-3, 3051-0, 3024-7 #### [facility] ([id number]) [address], [address] [place] [address] US RETROPERITONEAL LIMITEDon 03-24-2024 US RETROPERITONEAL LIMITED US RETROPERITONEAL LIMITED HISTORY: A 64-year-old female with the history of the abnormal CT scan examination with the renal mass. TECHNIQUE: Multiple real-time images of the both kidneys are obtained. Color Doppler study is performed. COMPARISON: Comparison is made with the CT scan of the abdomen without contrast of 09/05/2018. FINDINGS: Both kidneys are normal in position. Right kidney measures 10.4 x 5.2 x 5.2 cm. Right renal cortical thickness was a 1.0 cm. Left kidney measures 11.1 x 5.6 x 6.2 cm. Left renal cortical thickness was a 1.1 cm. There is no evidence of echogenic calculi or hydronephrosis in the either kidney. Renal cortical echoes are within normal limits. There is a cyst in the right mid kidney and measures 1.4 x 1.5 x 1.4 cm. No solid-appearing renal mass is identified. No perinephric fluid collection is identified. IMPRESSION: * No evidence of echogenic calculi or hydronephrosis in the either kidney. * There is a 1.5 x 1.4 cm cyst in the right mid kidney. No solid renal mass is identified. Finalized by Zay Rucker MD on 03/24/2024 10:50 AM Normal [facility] CT LOW DOSE LUNG SCREENINGon 02-29-2024 CT LOW DOSE LUNG SCREENING CT LOW DOSE LUNG SCREENING CLINICAL INFORMATION: Screening visit: Personal history of tobacco use/personal history of nicotine dependence. Lung cancer screening. The patient is a current smoker. The patient has a 43.9 pack year history of smoking. COMPARISON: No relevant prior studies are available. TECHNIQUE: Low dose CT chest performed without contrast with coronal and sagittal and maximum intensity projection reconstructed images. Maximum intensity projection images generated to increase the sensitivity of pulmonary nodule detection. All CT scans at this facility use dose modulation, iterative reconstruction, and/or weight based dosing when appropriate to reduce radiation dose to as low as reasonably achievable. Automated exposure control was utilized. Computer aided detection for pulmonary nodules?was performed utilizing [employer] software.? FINDINGS: Diagnostic quality: Satisfactory Lung nodules: None Lungs and pleural spaces: No pleural effusion seen. There is no pneumothorax. Emphysematous changes present. Pleural parenchymal scarring noted. Mediastinum: No mediastinal lymphadenopathy. Thoracic aorta normal in caliber. Heart size: Normal Coronary calcification: Mild Pericardial effusion: None Other findings: Limited images of the upper abdomen show exophytic lesion arising from anterior aspect right kidney, not clearly representing a simple cyst. Ultrasound recommended. IMPRESSION: Exophytic lesion arising from anterior aspect right kidney, not clearly a simple cyst. Renal ultrasound recommended. Lung Rads Category: 2- Benign appearance or behavior Recommendation: CT Low Dose Lung Screening 1 year Finalized by Yamil Muñoz MD on 02/29/2024 9:00 AM 2 LDCT 1 Yr Normal [facility] FREE T3on 02-24-2024 Free T3 [Mass/Vol] 3.19 pg/mL Normal 2.50-3.90 [facility] Comment on above: Performed By: #### 3 016-3, 3051-0, 3024-7 #### [facility] ([id number]) [address] [place] [address] FREE T4on 02-24-2024 Free T4 [Mass/Vol] 1.15 ng/dL Normal 0.61-1.60 [facility] Comment on above: Performed By: #### 3 016-3, 3051-0, 3024-7 #### [facility] ([id number]) [address] [place] [address] TSH Qnon 02-24-2024 TSH 0.29 uIU/mL Low 0.49-4.67 [facility] Comment on above: Performed By: #### 3 016-3, 3051-0, 3024-7 #### [facility] ([id number]) [address], [address] [place] [address] CBC AND AUTO DIFFon 01-15-20 ABSOLUTE BASOPHIL 0.1 X10E9/L Normal 0.0-0.2 [facility] Comment on above: Performed By: #### C SHINE [facility], 1987-10, 22856-2 #### [facility] ([id number]) [address] [place] [address] ABSOLUTE NEUTROPHIL 8.5 X10E9/L High 1.5-6.6 [facility] Comment on above: Performed By: #### Felisha RIOJAS [facility], 1987-10, 82069-6 #### [facility] ([id number]) [address] [place] [address] 70651 Basophils/100 WBC (Bld) 1.0 % Normal [facility] Comment on above: Performed By: #### Felisha RIOJAS [facility], 1987-10, 75493-0 #### [facility] ([id number]) [address] [place] [address] 09001 Eosinophils (Bld) [#/Vol] 0.1 10*3/uL Normal 0.0-0.4 [facility] Comment on above: Performed By: #### Felisha RIOJAS [facility], 1987-10, 78431-0 #### [facility] ([id number]) [address] [place] [address] 33121 Eosinophils/100 WBC (Bld) 0.7 % Normal [facility] Comment on above: Performed By: #### C SHINE [facility], 1987-10, 24554-9 #### [facility] ([id number]) [address] [place] [address] 58879 Erythrocyte distribution width (RBC) [Ratio] 13.8 % Normal 11.5-15.0 [facility] Comment on above: Performed By: #### C SHINE [facility], 1987-10, #### [facility] ([id number]) [address] [place] [address] 34382 Hematocrit (Bld) [Volume fraction] 45.2 % Normal 35-47 [facility] Comment on above: Performed By: #### Felisha RIOJAS [facility], 1987-10, #### [facility] ([id number]) [address] [place] [address] 82206 Hemoglobin (Bld) [Mass/Vol] 14.9 g/dL Normal 11.7-15.5 [facility] Comment on above: Performed By: #### Felisha RIOJAS [facility], 1987-10, 11035-2 #### [facility] ([id number]) [address] [place] [address] 38248 Lymphocytes (Bld) [#/Vol] 2.1 10*3/uL Normal 1.0-3.5 [facility] Comment on above: Performed By: #### Felisha RIOJAS CMP, 1988-10, 64089-3 #### [facility] ([id number]) [address] [place] [address] 34987 Lymphocytes/100 WBC (Bld) 18.5 % Normal [facility] Comment on above: Performed By: #### Felisha RIOJAS CMP, 1987-10, #### [facility] ([id number]) [address] [place] [address] 32553 MCH (RBC) [Entitic mass] 30.4 pg Normal 27-34 [facility] Comment on above: Performed By: #### Felisha RIOJAS CMP, 1988-10, 73259-3 #### [facility] ([id number]) [address] [place] [address] 55028 MCHC (RBC) [Mass/Vol] 32.9 g/dL Normal 32-36 [facility] Comment on above: Performed By: #### Felisha RIOJAS CMP, 1987-10, #### [facility] ([id number]) [address] [place] [address] 57202 MCV (RBC) [Entitic vol] 92 fL Normal 80-100 [facility] Comment on above: Performed By: #### Felisha RIOJAS CMP, 1987-10, #### [facility] ([id number]) [address] [place] [address] 17258 Monocytes (Bld) [#/Vol] 0.7 10*3/uL Normal 0-0.9 [facility] Comment on above: Performed By: #### Felisha RIOJAS CMP, 1988-10, 76332-1 #### [facility] ([id number]) [address] [place] [address] 15744 Monocytes/100 WBC (Bld) 6.2 % Normal [facility] Comment on above: Performed By: #### Felisha RIOJAS CMP, 1987-10, #### [facility] ([id number]) [address] [place] [address] 50292 Neutrophils/100 WBC (Bld) 73.6 % Normal [facility] Comment on above: Performed By: #### Felisha RIOJAS CMP, 1988-10, 03278-0 #### [facility] ([id number]) [address] [place] [address] 22204 Platelet mean volume (Bld) [Entitic vol] 7.2 fL Normal 7-12 [facility] Comment on above: Performed By: #### C SHINE, CMP, 1987-10, 23584-4 #### [facility] ([id number]) [address] [place] [address] 51162 Platelets (Bld) [#/Vol] 435 10*3/uL Normal 150-450 [facility] Comment on above: Performed By: #### C SHINE, CMP, 1988-10, 81052-2 #### [facility] ([id number]) [address] [place] [address] 31880 RBC COUNT 4.90 X10E12/L Normal 3.80-5.20 [facility] Comment on above: Performed By: #### C SHINE, CMP, 1987-10, 82517-6 #### [facility] ([id number]) [address] [place] [address] 26268 WBC (Bld) [#/Vol] 11.5 10*3/uL High 4.0-11.0 [facility] Comment on above: Performed By: #### C SHINE, CMP, 1987-10, 50067-2 #### [facility] ([id number]) [address] [place] [address] 14938 COMPREHENSIVE METABOLIC PANE Deven 01-15-2024 Albumin [Mass/Vol] 3.4 g/dL Normal 3.2-5.3 [facility] Comment on above: Performed By: #### C SHINE, CMP, 1987-10, 23176-2 #### [facility] ([id number]) [address] [place] [address] 16033 ALP [Catalytic activity/Vol] 67 U/L Normal 39-130 [facility] Comment on above: Performed By: #### C BCA, CMP, 1988-10, 47546-2 #### [facility] ([id number]) [address] [place] [address] 40983 ALT [Catalytic activity/Vol] 15 U/L Normal 0-31 [facility] Comment on above: Performed By: #### C ZULY RIOJAS, 1988-10, 21123-8 #### [facility] ([id number]) [address] [place] [address] 73607 Anion gap [Moles/Vol] 8 mmol/L Normal 5-15 [facility] Comment on above: Performed By: #### C SHINE [facility], 1987-10, 77207-9 #### [facility] ([id number]) [address] [place] [address] [place] [address] AST [Catalytic activity/Vol] 12 U/L Normal 0-41 [facility] Comment on above: Performed By: #### C SHINE [facility], 1987-10, 28515-4 #### [facility] ([id number]) [address] [place] [address] 05591 Bilirubin [Mass/Vol] 0.4 mg/dL Normal 0.3-1.2 [facility] Comment on above: Performed By: #### C SHINE [facility], 1987-10, 22119-2 #### [facility] ([id number]) [address] [place] [address] 65075 Calcium [Mass/Vol] 8.4 mg/dL Low 8.5-10.5 [facility] Comment on above: Performed By: #### C SHINE [facility], 1987-10, 03367-4 #### [facility] ([id number]) [address] [place] [address] [place] [address] Chloride [Moles/Vol] 101 mmol/L Normal 98-109 [facility] Comment on above: Performed By: #### C ZULY RIOJAS, 1988-10, 39692-4 #### [facility] ([id number]) [address] [place] [address] 51630 CO2 [Moles/Vol] 30 mmol/L Normal 22-32 [facility] Comment on above: Performed By: #### C ZULY RIOJAS, 1988-10, 57354-3 #### [facility] ([id number]) [address] [place] [address] 42214 Creatinine [Mass/Vol] 0.86 mg/dL Normal 0.40-1.00 [facility] Comment on above: Result Comment: METH OD TRACEABLE TO IDMS STANDARD Performed By: #### C ZULY RIOJAS, 1988-10, #### [facility] ([id number]) [address] [place] [address] 83170 GFR/1.73 sq M.predicted among non-blacks MDRD (S/P/Bld) [Vol rate/Area] 75 mL/min/{1.73_m2} Normal >59 [facility] Comment on above: Result Comment: Reported eGFR is based on the CKD-EPI 2020 equation that does not use a race coefficient. Performed By: #### C ZULY RIOJAS, 1988-10, #### [facility] ([id number]) [address] [place] [address] 88679 Glucose [Mass/Vol] 116 mg/dL High 65-99 [facility] Comment on above: Performed By: #### C ZULY RIOJAS, 1988-10, 01389-0 #### [facility] ([id number]) [address] [place] [address] 40005 Potassium [Moles/Vol] 4.1 mmol/L Normal 3.5-5.0 [facility] Comment on above: Performed By: #### C ZULY RIOJAS, 1988-10, 38827-5 #### [facility] ([id number]) [address] [place] [address] 52422 Protein [Mass/Vol] 7.2 g/dL Normal 6.0-8.0 [facility] Comment on above: Performed By: #### C ZULY RIOJAS, 1988-10, 45533-6 #### [facility] ([id number]) [address] [place] [address] Sodium [Moles/Vol] 139 mmol/L Normal 134-146 [facility] Comment on above: Performed By: #### C ZULY RIOJAS, 1988-10, 49722-2 #### [facility] ([id number]) [address] [place] [address] 65044 Urea nitrogen [Mass/Vol] 22 mg/dL Normal 5-27 [facility] Comment on above: Performed By: #### C SHINE [facility], 1987-10, 43820-3 #### [facility] ([id number]) [address] [place] [address] 88405 CRP [Mass/Vol]on 01-15-2024 C REACTIVE PROTEIN 1.3 mg/dL High 0.000-0.744 [facility] Comment on above: Performed By: #### Felisha RIOJSA [facility], 1987-10, 71472-8 #### [facility] ([id number]) [address] [place] [address] 43969 Fibrin D-dimer DDU (PPP) [Ma ss/Vol]on 01-15-2024 D DIMER <150 Normal <255 [facility] Comment on above: Result Comment: Results <255 ng/mL DDU: The presence of a VTE can safely be excluded with a negative D-Dimer result and Wells score. A negative result doesn't exclude the possibility of DIC. The test be repeated along with other diagnostic tests if the patient's symptoms persist or worsen. [email or web address] Performed By: #### C ZULY RIOJAS, 1988-10, 33222-9 #### [facility] ([id number]) [address] [place] [address] 68217 FREE T3on 12-22-2023 Free T3 [Mass/Vol] 2.77 pg/mL Normal 2.50-3.90 [facility] Comment on above: Performed By: #### 3 051-0, 3024-7, 3016-3 #### [facility] ([id number]) [address], [address] [place] [address] FREE T4on 12-22-2023 Free T4 [Mass/Vol] 1.30 ng/dL Normal 0.61-1.60 [facility] Comment on above: Performed By: #### 3 051-0, 3024-7, 3016-3 #### [facility] ([id number]) [address], [address] [place] [address] TSH Qnon 12-22-2023 TSH 4.40 uIU/mL Normal 0.49-4.67 [facility] Comment on above: Performed By: #### 3 051-0, 3024-7, 3016-3 #### [facility] ([id number]) [address], [address] [place] [address] W CONon [address] W CON EXAMINATION: CT [...] BARRON TATUM Date: 2021-10-04 09:24 Normal [facility] COMPREHENSIVE METABOLIC PANE Deven 09-19-2021 Albumin [Mass/Vol] 3.9 g/dL Normal 3.6-5.1 [facility] Comment on above: Performed By: #### 7 600, 36531, 63817 #### [facility] of [address], [address] [place] [address] Laundry Folder: Chalino Levy MD Albumin/Globulin [Mass ratio] 1.3 {ratio} Normal 1.0-2.5 [facility] Comment on above: Performed By: #### 7 600, 34584, 57727 #### [facility] [place] [address] Laundry Folder: Chalino Levy MD ALP [Catalytic activity/Vol] 71 U/L Normal 37-153 [facility] Comment on above: Performed By: #### 7 600, 23315, 80562 #### [facility] [place] [address] Laundry Folder: Chalino Levy MD ALT [Catalytic activity/Vol] 9 U/L Normal 6-29 [facility] Comment on above: Performed By: #### 7 600, 53881, 11332 #### [facility] [place] [address] Laundry Folder: Chalino Levy MD AST [Catalytic activity/Vol] 10 U/L Normal 10-35 [facility] Comment on above: Performed By: #### 7 600, 29789, 01111 #### [facility] [place] [address] Laundry Folder: Chalino Levy MD Bilirubin [Mass/Vol] 0.6 mg/dL Normal 0.2-1.2 [facility] Comment on above: Performed By: #### 7 600, 77774, 82675 #### [facility] [address], [address] [place] [address] Laundry Folder: Chalino Levy MD BUN/CREATININE RATIO NOT APPLICABLE Normal 6-22 [facility] Comment on above: Performed By: #### 7 600, 27076, 07094 #### [facility] of [address], [address] [place] [address] Laundry Folder: Chalino Levy MD Calcium [Mass/Vol] 9.0 mg/dL Normal 8.6-10.4 [facility] Comment on above: Performed By: #### 7 600, 93253, 11267 #### [facility] of [place] [address] Laundry Folder: Chalino Levy MD Chloride [Moles/Vol] 103 mmol/L Normal 98-110 [facility] Comment on above: Performed By: #### 7 600, 25644, 93981 #### [facility] [place] [address] Laundry Folder: Chalino Levy MD CO2 [Moles/Vol] 31 mmol/L Normal 20-32 [facility] Comment on above: Performed By: #### 7 600, 98791, 72353 #### [facility] of [place] [address] Laundry Folder: Chalino Levy MD Creatinine [Mass/Vol] 0.79 mg/dL Normal 0.50-0.99 [facility] Comment on above: Result Comment: For patients >49 years of age, the reference limit for Creatinine is approximately 13% higher for people identified as -Pakistani. Performed By: #### 7 600, 84534, 26064 #### [facility] of [place] [address] Laundry Folder: Chalino Levy MD eGFR NON-AFR. INDONESIAN 80 mL/min/1.73m2 Normal > OR = 60 [facility] Comment on above: Performed By: #### 7 600, 15316, 25643 #### [facility] [address], [address] [place] [address] Laundry Folder: Chalino Levy MD GFR/1.73 sq M.predicted among blacks MDRD (S/P/Bld) [Vol rate/Area] 93 mL/min/{1.73_m2} Normal > OR = 60 [facility] Comment on above: Performed By: #### 7 600, 40901, 76717 #### [facility] of [address], [address] [place] [address] Laundry Folder: Chalino Levy MD Globulin (S) [Mass/Vol] 3.0 g/dL Normal 1.9-3.7 [facility] Comment on above: Performed By: #### 7 600, 84052, 63107 #### [facility] [address], [address] [place] [address] Laundry Folder: Chalino Levy MD Glucose [Mass/Vol] 105 mg/dL High 65-99 [facility] Comment on above: Result Comment: Fasting reference interval For someone without known diabetes, a glucose value between 100 and 125 mg/dL is consistent with prediabetes and should be confirmed with a follow-up test. Performed By: #### 7 600, 47504, 29025 #### [facility] [address], [address] [place] [address] Laundry Folder: Chalino Levy MD Potassium [Moles/Vol] 4.3 mmol/L Normal 3.5-5.3 [facility] Comment on above: Performed By: #### 7 600, 36051, 66470 #### [facility] [address], [address] [place] [address] Laundry Folder: Chalino Levy MD Protein [Mass/Vol] 6.9 g/dL Normal 6.1-8.1 [facility] Comment on above: Performed By: #### 7 600, 53543, 62718 #### [facility] [address], [address] [place] [address] Laundry Folder: Chalino Levy MD Sodium [Moles/Vol] 140 mmol/L Normal 135-146 [facility] Comment on above: Performed By: #### 7 600, 58393, 19246 #### [facility] [address], [address] [place] [address] Laundry Folder: Chalino Levy MD Urea nitrogen [Mass/Vol] 23 mg/dL Normal 7-25 [facility] Comment on above: Performed By: #### 7 600, 23375, 63272 #### [facility] [address], [address] [place] [address] Laundry Folder: Chalino Levy MD LIPID PANEL, [facility] - Cholesterol [Mass/Vol] 276 mg/dL High <200 [facility] Comment on above: Order Comment: FASTI NG:YES FASTING: YES Performed By: #### 7 600, 83253, 02413 #### [facility] [address], [address] [place] [address] Laundry Folder: Chalino Levy MD Cholesterol in HDL [Mass/Vol] 48 mg/dL Low > OR = 50 [facility] Comment on above: Order Comment: FASTI NG:YES FASTING: YES Performed By: #### 7 600, 92248, 90447 #### [facility] [place] [address] Laundry Folder: Chalino Levy MD Cholesterol in LDL [Mass/Vol] [...] Jose Roberto BOTELLO et al. EDGARDO. 2013;310(19): 9977-8755 ([email or web address]/[email or web address]) Performed By: #### 7 600, 83185, 75280 #### [facility] [address], [address] [place] [address] Laundry Folder: Chalino Levy MD Cholesterol.total/Chol esterol in HDL [Mass ratio] 5.8 {ratio} High <5.0 [facility] Comment on above: Order Comment: FASTI NG:YES FASTING: YES Performed By: #### 7 600, 57048, 10330 #### [facility] [address], [address] [place] [address] Laundry Folder: Chalino Levy MD NON HDL CHOLESTEROL 228 [...] therapeutic option. Performed By: #### 7 600, 07636, 59579 #### [facility] [address], [address] [place] [address] Laundry Folder: Chalino Levy MD Triglyceride [Mass/Vol] 212 mg/dL High <150 [facility] Comment on above: Order Comment: FASTI NG:YES FASTING: YES Result Comment: If a non-fasting specimen was collected, consider repeat triglyceride testing on a fasting specimen if clinically indicated. Levy et al. J. of Clin. Lipidol. 2015;9:129-169. Performed By: #### 7 600, 90143, 88249 #### [facility] [address], [address] [place] [address] Laundry Folder: Chalino Levy MD TSH+FREE T4on 09-19-2021 Free T4 [Mass/Vol] 1.4 ng/dL Normal 0.8-1.8 [facility] Comment on above: Performed By: #### 7 600, 23003, 94936 #### [facility] [address], [address] [place] [address] Laundry Folder: Chalino Levy MD TSH Qn 2.51 m[IU]/L Normal 0.40-4.50 [facility] Comment on above: Performed By: #### 7 600, 08096, 48714 #### [facility] [address], [address] [place] [address] Laundry Folder: Chalino Levy MD XR CHEST 2 Von [...] BARRON TATUM Date: 2021-09-12 16:03 Normal [facility] US ST HEAD_NECKon 08-25-[address] HEAD_NECK EXAM: US ST HEAD_NEC K HISTORY: Mass of neck COMPARISON: Ultrasound neck 02/07/2015. CT neck 01/24/2015 TECHNIQUE: Focused sonographic images in the posterior occipital region in the patient's reported area of concern. Additional left neck was scanned per supervisor benzene refining. FINDINGS: No suspicious mass identified within the [...] ASHLEE ESCUDERO Date: 2021-08-25 09:54 Normal [facility] CBC AUTO DIFFon 07-02-2021 BASO # 0.0 103/ul Normal 0.0-0.1 [facility] Comment on above: Performed By: #### C BC #### [facility] [address] [place] [address] Dr. Bibi Emerson Basophils/100 WBC (Bld) 0.3 % Normal 0.2-2.0 [facility] Comment on above: Performed By: #### C BC #### [facility] [address] [place] [address] Dr. Biib Emerson EO # 0.0 103/ul Normal 0.0-0.7 [facility] Comment on above: Performed By: #### C BC #### [facility] [address] [place] [address] Dr. Bibi Emerson Eosinophils/100 WBC (Bld) 0.0 % Critically low 0.9-7.0 [facility] Comment on above: Performed By: #### C BC #### [facility] [address] [place] [address] Dr. Bibi Emerson Erythrocyte distribution width (RBC) [Ratio] 13.0 % Normal 11.0-15.0 [facility] Comment on above: Performed By: #### C BC #### [facility] [address] [place] [address] Dr. Bibi Emerson Hematocrit (Bld) [Volume fraction] 47.0 % Normal 36.0-48.0 [facility] Comment on above: Performed By: #### C BC #### [facility] [address] [place] [address] Dr. Bibi Emerson Hemoglobin (Bld) [Mass/Vol] 15.5 g/dL Normal 12.0-16.0 [facility] Comment on above: Performed By: #### C BC #### [facility] [address] [place] [address] Dr. Bibi Emerson IG # 0.01 10e3/ul Normal 0.00-0.03 [facility] Comment on above: Performed By: #### C BC #### [facility] [address] [place] [address] Dr. Bibi Emerson IG % 0.2 % Normal 0.0-0.5 [facility] Comment on above: Performed By: #### C BC #### [facility] [address] [place] [address] Dr. Bibi Emerson LYMPH # 2.0 103/ul Normal 1.2-3.8 [facility] Comment on above: Performed By: #### C BC #### [facility] [address] [place] [address] Dr. Bibi Emerson Lymphocytes/100 WBC (Bld) 30.7 % Normal 20.5-60.0 [facility] Comment on above: Performed By: #### C BC #### [facility] [address] [place] [address] Dr. Bibi Emerson MANUAL DIFF REQ NO Normal [facility] Comment on above: Performed By: #### C BC #### [facility] [address] [place] [address] Dr. Bibi Emerson MCH (RBC) [Entitic mass] 29.8 pg Normal 26.7-34.0 [facility] Comment on above: Performed By: #### C BC #### [facility] [address] [place] [address] Dr. Bibi Emerson MCHC (RBC) [Mass/Vol] 33.0 g/dL Normal 29.9-35.2 [facility] Comment on above: Performed By: #### C BC #### [facility] [address] [place] [address] Dr. Bibi Emerson MCV (RBC) [Entitic vol] 90.2 fL Normal 81.0-99.0 [facility] Comment on above: Performed By: #### C BC #### [facility] [address] [place] [address] Dr. Bibi Emerson MONO # 0.5 103/ul Normal 0.3-0.8 [facility] Comment on above: Performed By: #### C BC #### [facility] [address] [place] [address] Dr. Bibi Emerson Monocytes/100 WBC (Bld) 7.9 % Normal 1.7-12.0 [facility] Comment on above: Performed By: #### C BC #### [facility] [address] [address] [address] Bibi Emerson NEUT # 4.0 103/ul Normal 1.4-6.5 [facility] Comment on above: Performed By: #### C BC #### [facility] [address] [place] [address] Dr. Bibi Emerson Neutrophils/100 WBC (Bld) 60.9 % Normal 43.0-75.0 [facility] Comment on above: Performed By: #### C BC #### [facility] [address] [place] [address] Dr. Bibi Emerson Platelet mean volume (Bld) [Entitic vol] 8.9 fL Critically low 9.5-13.5 [facility] Comment on above: Performed By: #### C BC #### [facility] [address] [place] [address] Dr. Bibi Emerson PLT 303 103/ul Normal 150-450 [facility] Comment on above: Performed By: #### C BC #### [facility] [address] [place] [address] Dr. Bibi Emerson RBC 5.21 106/ul Normal 4.20-5.40 [facility] Comment on above: Performed By: #### C BC #### [facility] [address] [place] [address] Dr. Bibi Emerson WBC 6.5 103/ul Normal 4.0-11.0 [facility] Comment on above: Performed By: #### C BC #### [facility] [address] [place] [address] Dr. Bibi Emerson Covid-19 PCR (CVDTB)on 06-22 SARS-CoV-2 (COVID-19) RNA RAAD+probe Ql (Unsp spec) Detected Critically abnormal NOT DETECTED [facility] Comment on above: Result Comment: This test is not yet approved or cleared by the [place] FDA. When there are no FDA-approved or cleared tests available, and other criteria are met, FDA can make tests available under an emergency access mechanism called an Emergency Use Authorization (EUA). The EUA for this test is supported by the [place] of Health and Human Service's (HHS's) declaration [...] used). Performed By: #### C VDTBH #### [facility] [address] [address] [address] Bibi Emerson INFLUENZA A AND B [facility] Normal [facility] Comment on above: Result Comment: Nega tive for Flu A protein angiten. Infection due to Flu A cannot be ruled out. Flu A angiten in the sample may be below the detection limit of the test. Performed By: #### I NFLUAB ####[facility] [address] [place], [place] [address]Dr. Bibi Emerson INFLUBNEGH SEE BELOW Normal [facility] Comment on above: Result Comment: Nega tive for Flu B protein antigen. Infection due to Flu B cannot be ruled out. Flu B antigen in the sample may be below the detection limit of the test. Performed By: #### I NFLUAB ####[facility] [address] [place], [place] [address]Dr. Bibi Emerson INFLUENZA A AG Negative Normal NEGATIVE SEE COMMENT [facility] Comment on above: Performed By: #### I NFLUAB ####[facility] [address] [place], [place] [address]Dr. Bibi Emerson INFLUENZA B AG Negative Normal NEGATIVE SEE COMMENT [facility] Comment on above: Performed By: #### I NFLUAB ####[facility] [address] [place], [place] [address]Dr. Bibi Emerson INTERNAL CONTROLS Within Normal Limits Normal Wi thin Normal Limits [facility] Comment on above: Performed By: #### I NFLUAB ####[facility] [address] [place], [place] [address]Dr. Bibi Emerson PROF CHEM 8 (BAS METB)on Anion gap [Moles/Vol] 12.0 mmol/L Normal [facility] Comment on above: Performed By: #### B MP #### [facility] [address] [place] [address] Dr. Bibi Emerson Calcium [Mass/Vol] 8.2 mg/dL Critically low 8.4-10.2 [facility] Comment on above: Performed By: #### B MP #### [facility] [address] [address] [address] Bibi Emerson Chloride [Moles/Vol] 102 mmol/L Normal 98-107 [facility] Comment on above: Performed By: #### B MP #### [facility] [address] [place] [address] Dr. Bibi Emerson CO2 [Moles/Vol] 27.6 mmol/L Normal 22.0-30.0 [facility] Comment on above: Performed By: #### B MP #### [facility] [address] [address] [address] Bibi Emerson Creatinine [Mass/Vol] 1.03 mg/dL Normal 0.52-1.04 [facility] Comment on above: Performed By: #### B MP #### [facility] [address] [place] [address] Dr. Bibi Emerson EGFR-AF INDONESIAN >60 Normal >=60 [facility] Comment on above: Performed By: #### B MP #### [facility] [address] [address] [address] Bibi Emerson EGFR-NON AF INDONESIAN 54 mL/min/1.73m2 Critically low >=60 [facility] Comment on above: Performed By: #### B MP #### [facility] [address] [address] [address] Bibi Emerson Glucose [Mass/Vol] 127 mg/dL Critically high 74-106 T [facility] Comment on above: Performed By: #### B MP #### [facility] [address] [place] [address] Dr. Bibi Emerson Potassium [Moles/Vol] 3.6 mmol/L Normal 3.4-5.0 [facility] Comment on above: Performed By: #### B MP #### [facility] [address] [address] [address] Bibi Emerson Sodium [Moles/Vol] 138 mmol/L Normal 137-145 [facility] Comment on above: Performed By: #### B MP #### [facility] [address] [address] [address] Bibi Emerson Urea nitrogen [Mass/Vol] 18.0 mg/dL Critically high 7.0-17.0 [facility] Comment on above: Performed By: #### B MP #### [facility] [address] [address] [address] Bibi Emerson Urea nitrogen/Creatinine [Mass ratio] 17.5 mg/mg Normal [facility] Comment on above: Performed By: #### B MP #### [facility] [address] [address] [address] Bibi Emerson XR CHEST 1 Von [...] GYPSY MUÑOZ Date: 2021-07-02 21:16 Normal [facility] Covid-19 PCR (CVDTBH)on SARS-CoV-2 (COVID-19) RNA RAAD+probe Ql (Unsp spec) Not detected Normal NOT DETECTED [facility] Comment on above: Result Comment: This test is not yet approved or cleared by the [place] FDA. When there are no FDA-approved or cleared tests available, and other criteria are met, FDA can make tests available under an emergency access mechanism called an Emergency Use Authorization (EUA). The EUA for this test is supported by the [place] of Health and Human Service's (HHS's) declaration [...] with SARS-CoV-2. Performed By: #### C VDTB ####[facility] [address] [place], [place] [address]Mq. Bibi Emerson TSH+FREE T4on 03-27-2021 Free T4 [Mass/Vol] 1.2 ng/dL Normal 0.8-1.8 [facility] Comment on above: Performed By: #### 5 [id number] #### [facility] [address], [address] [place] [address] Laundry Folder: Chalino Levy MD TSH Qn 2.23 m[IU]/L Normal 0.40-4.50 [facility] Comment on above: Performed By: #### 5 [id number] #### [facility] [address], [address] [place] [address] Laundry Folder: Chalino Levy MD Covid-19 PCR ([facility])on 02-20 SARS-CoV-2 (COVID-19) RNA RAAD+probe Ql (Unsp spec) Not detected Normal NOT DETECTED [facility] Comment on above: Result Comment: This test is not yet approved or cleared by the [place] FDA. When there are no FDA-approved or cleared tests available, and other criteria are met, FDA can make tests available under an emergency access mechanism called an Emergency Use Authorization (EUA). The EUA for this test is supported by the [employer] of Health and Human Service's (HHS's) declaration [...] Performed By: #### C AKIL, JUANS #### [facility] [address] [place] [address] Farida Yang SYMPTOMATIC COVID-19 ANTIGEN on 03-02-2021 EUA Statement SEE BELOW Normal [facility] Comment on above: Result Comment: [...] Performed By: #### C AKIL, CVDAGS #### [facility] [address] [place] [address] Farida Yang SARS-CoV-2 (COVID-19) RNA RAAD+probe Ql (Unsp spec) Negative Normal NEGATIVE [facility] Comment on above: Result Comment: CONF IRMATION BY PCR PENDING PER CDC GUIDELINES/ SYMPTOMATIC PATIENT. Performed By: #### C AKIL, CVDAGS #### [facility] [address] [place] [address] Farida Yang XR CHEST 1 Von 03-02-2021 [...] PALMER GREGORIO Date: 2021-03-02 13:11 Normal [facility] Basic Metabolic PanelOrdered By: Heena John on 11-22-2020 Anion gap [Moles/Vol] 9 mmol/L 9 - 17 mmol/L [employer] Phone: Calcium [Mass/Vol] 8.3 mg/dL Low 8.6 - 10. 4 mg/dL [employer] Phone: Chloride [Moles/Vol] 103 mmol/L 98 - 10 7 mmol/L [employer] Phone: CO2 [Moles/Vol] 29 mmol/L 20 - 31 mmol/L [employer] Phone: Creatinine [Mass/Vol] 0.77 mg/dL 0.50 - 0.90 mg/dL [employer] Phone: GFR >60 >60 mL/min [employer] Phone: GFR Non- >60 >60 mL/min [employer] Phone: GFR/1.73 sq M.predicted MDRD (S/P/Bld) [Vol rate/Area] [employer] Phone: Comment on above: Average GFR for 60-6 9 years old: 85 mL/min/1.73sq m Chronic Kidney Disease: <60 mL/min/1.73sq m Kidney failure: <15 mL/min/1.73sq m eGFR calculated using average adult body mass. Additional eGFR calculator available at: http://www.HRsoft.Istpika/multiple_crcl_2012.htm GFR/1.73 sq M.predicted MDRD (S/P/Bld) [Vol rate/Area] NOT REPORTED [employer] Phone: Glucose [Mass/Vol] 131 mg/dL High 70 - 99 mg/dL [facility]: Interpretation and review of laboratory results Abnormal [facility] Phone: Potassium [Moles/Vol] 4.5 mmol/L 3.7 - 5.3 mmol/L [facility] Phone: Sodium [Moles/Vol] 141 mmol/L 135 - 144 mmol/L [facility] Phone: Urea nitrogen (BldV) [Mass/Vol] 21 mg/dL 8 - 23 mg/dL [facility] Phone: Urea nitrogen/Creatinine (Bld) [Mass ratio] NOT REPORTED [employer] Phone: [employer] Phone: Basic Metabolic Profon 11-22 (cont.) Normal [facility] Comment on above: Result Comment: Aver age GFR for 60-69 years old: 85 mL/min/1.73sq m Chronic Kidney Disease: <60 mL/min/1.73sq m Kidney failure: <15 mL/min/1.73sq m eGFR calculated using average adult body mass. Additional eGFR calculator available at: http://www.[employer]/multiple_crcl_2012.htm Performed By: #### C DP, BMP #### [facility] [address] [place] [address] Golf Course Designer: Justin Chambers DO Anion gap [Moles/Vol] 9 mmol/L Normal 9-17 [facility] Comment on above: Performed By: #### C DP, BMP #### [facility] [address] [place], [place] [id number] [employer] Course Designer: Justin Chambers DO Calcium [Mass/Vol] 8.3 mg/dL Low 8.6-10.4 [facility] Comment on above: Performed By: #### C DP, BMP #### [facility] [address] [place] [address] [employer] Course Designer: Justin Chambers DO Chloride [Moles/Vol] 103 mmol/L Normal 98-107 [facility] Comment on above: Performed By: #### C DP, BMP #### [facility] [address] [place] [address] [employer] Course Designer: Justin Chambers DO CO2 [Moles/Vol] 29 mmol/L Normal 20-31 [facility] Comment on above: Performed By: #### C DP, BMP #### [facility] [place] [address] Golf Course Designer: Justin Chambers DO Creatinine [Mass/Vol] 0.77 mg/dL Normal 0.50-0.90 [facility] Comment on above: Performed By: #### C DP, BMP #### [facility] [place] [address] [employer] Course Designer: Justin Chambers DO GFR, Amer >60 Normal >60 [facility] Comment on above: Performed By: #### C DP, BMP #### [facility] [place] [address] [employer] Course Designer: Justin Chambers DO GFR,non Amer >60 Normal >60 [facility] Comment on above: Performed By: #### C DP, BMP #### [facility] [place] [address] Golf Course Designer: Justin Chambers DO Glucose [Mass/Vol] 131 mg/dL High 70-99 [facility] Comment on above: Performed By: #### C DP, BMP #### [facility] [place] [address] Golf Course Designer: Justin Chambers DO Potassium [Moles/Vol] 4.5 mmol/L Normal 3.7-5.3 [facility] Comment on above: Performed By: #### C DP, BMP #### [facility] [address] [facility] [place] [address] Golf Course Designer: Justin Chambers DO Sodium [Moles/Vol] 141 mmol/L Normal 135-144 [facility] Comment on above: Performed By: #### C DP, BMP #### [facility] [address] [place] [address] [employer] Course Designer: Justin Chambers DO Urea nitrogen [Mass/Vol] 21 mg/dL Normal 8-23 [facility] Comment on above: Performed By: #### C DP, BMP #### [facility] [address] [place] [address] [employer] Course Designer: Justin Chambers DO BUN/CRE Ratio NOT REPORTED Normal 9-20 [facility] Comment on above: Performed By: #### C DP, BMP #### [facility] [address] [place] [address] [employer] Course Designer: Justin Chambers DO Staging: NOT REPORTED Normal [facility] Comment on above: Performed By: #### C DP, BMP #### [facility] [address] [place] [address] [employer] Course Designer: Justin Chambers DO CBC Auto DifferentialOrdered By: Heena John on 11-22-2020 [employer] # 0.40 [facility] Work Phone: Absolute Immature Granulocyte NOT REPORTED [facility] Work Phone: Absolute Lymph # 1.80 [facility] Work Phone: Absolute [place] # 0.50 [facility] Work Phone: Basophils (Bld) [#/Vol] 0.10 10*3/uL [employer] Phone: Basophils/100 WBC (Bld) 1 % 0 - 2 % [facility] Phone: Differential Type NOT REPORTED [facility] Phone: Eosinophils/100 WBC (Bld) 4 % 0 - 4 % [facility] Phone: Hematocrit (Bld) [Volume fraction] 42.5 % 36 - 46 % [facility] Work Phone: Hemoglobin.gastrointes tinal spec 1 Ql (Stl) 13.8 g/dL 12.0 - 16.0 g/dL [employer] Phone: Immature Granulocytes NOT REPORTED 0 % [facility] Work Phone: Interpretation and review of laboratory results Abnormal [employer] Phone: Lymphocytes/100 WBC (Bld) 19 % Low 24 - 44 % [employer] Work Phone: MCH (RBC) [Entitic mass] 29.5 pg 26 - 34 pg [employer] Phone: MCHC (RBC) [Mass/Vol] 32.5 g/dL 31 - 3 7 g/dL [employer] Phone: MCV (RBC) [Entitic vol] 90.8 fL 80 - 100 fL [employer] Work Phone: Monocytes/100 WBC (Bld) 6 % 1 - 7 % [employer] Work Phone: NRBC Automated NOT REPORTED per 100 WBC [employer] [facility] Work Phone: Platelet distribution width (Bld) [Ratio] 13.3 % 11.5 - 14.9 % [employer] Phone: Platelet Estimate NOT REPORTED [facility] Phone: Platelet mean volume (Bld) [Entitic vol] 7.2 fL 6.0 - 12.0 fL [employer] Work Phone: Platelets (Bld) [#/Vol] 388 10*3/uL [employer] Phone: RBC (Bld) [#/Vol] 4.68 10*6/uL 4.0 - 5.2 m/uL [employer] Work Phone: RBC (Bld) [#/Vol] NOT REPORTED [employer] Phone: Segmented neutrophils/100 WBC (Bld) 70 % High 36 - 66 % [employer] Work Phone: Segs Absolute 6.70 [employer] Work Phone: WBC (Bld) [#/Vol] 9.4 10*3/uL [employer] Phone: WBC (Bld) [#/Vol] NOT REPORTED [employer] Phone: [employer] Work Phone: CBC with Diffon 11-22-2020 Abs. Basophil 0.10 k/uL Normal 0.0-0.2 [facility] Comment on above: Performed By: #### C DP, BMP #### [facility] [address] [place] [address] Golf Course Designer: Justin Chambers DO Abs.Neutrophil (Seg) 6.70 k/uL Normal 1.3-9.1 [facility] Comment on above: Performed By: #### C DP, BMP #### [facility] [address] [place] [address] [employer] Course Designer: Justin Chambers DO Basophils/100 WBC (Bld) 1 % Normal 0-2 [facility] Comment on above: Performed By: #### C DP, BMP #### [facility] [address] [place] [address] [employer] Course Designer: Justin Chambers DO Eosinophils (Bld) [#/Vol] 0.40 10*3/uL Normal 0.0-0.4 [facility] Comment on above: Performed By: #### C DP, BMP #### [facility] [address] [place] [address] [employer] Course Designer: Justin Chambers DO Eosinophils/100 WBC (Bld) 4 % Normal 0-4 [facility] Comment on above: Performed By: #### C DP, BMP #### [facility] [place] [address] Golf Course Designer: uJstin Chambers DO Erythrocyte distribution width (RBC) [Ratio] 13.3 % Normal 11.5-14.9 [facility] Comment on above: Performed By: #### C DP, BMP #### [facility] [address] [place] [address] [employer] Course Designer: Justin Chambers DO Hematocrit (Bld) [Volume fraction] 42.5 % Normal 36-46 [facility] Comment on above: Performed By: #### C DP, BMP #### [facility] [address] [place] [address] [employer] Course Designer: Justin Chambers DO Hemoglobin (Bld) [Mass/Vol] 13.8 g/dL Normal 12.0-16.0 [facility] Comment on above: Performed By: #### C DP, BMP #### [facility] [address] [place] [address] [employer] Course Designer: Justin Chambers DO Lymphocytes (Bld) [#/Vol] 1.80 10*3/uL Normal 1.0-4.8 [facility] Comment on above: Performed By: #### C DP, BMP #### [facility] [address] [place] [address] [employer] Course Designer: Justin Chambers DO Lymphocytes/100 WBC (Bld) 19 % Low 24-44 [facility] Comment on above: Performed By: #### C MARION, BMP #### [facility] [place] [address] Golf Course Designer: Justin Chambers DO MCH (RBC) [Entitic mass] 29.5 pg Normal 26-34 [facility] Comment on above: Performed By: #### C MARION, BMP #### [facility] [address] [place] [address] [employer] Course Designer: Justin Chambers DO MCHC (RBC) [Mass/Vol] 32.5 g/dL Normal 31-37 [facility] Comment on above: Performed By: #### C MARION, BMP #### [facility] [address] [place] [phone] [employer] Course Designer: Justin Chambers DO MCV (RBC) [Entitic vol] 90.8 fL Normal 80-100 [facility] Comment on above: Performed By: #### C MARION, BMP #### [facility] [address] [place] [address] [employer] Course Designer: Justin Chambers DO Monocytes (Bld) [#/Vol] 0.50 10*3/uL Normal 0.1-1.3 [facility] Comment on above: Performed By: #### C MARION, BMP #### [facility] [address] [place] [address] [employer] Course Designer: Justin Chambers DO Monocytes/100 WBC (Bld) 6 % Normal 1-7 [facility] Comment on above: Performed By: #### C DP, BMP #### [facility] [address] [place] [address] [employer] Course Designer: Justin Chambers DO Neutrophil (Seg) 70 % High 36-66 [facility] Comment on above: Performed By: #### C DP, BMP #### [facility] [place] [address] Golf Course Designer: Justin Chambers DO Platelet mean volume (Bld) [Entitic vol] 7.2 fL Normal 6.0-12.0 [facility] Comment on above: Performed By: #### C DP, BMP #### [facility] [address] [place] [address] [employer] Course Designer: Justin Chambers DO Platelets (Bld) [#/Vol] 388 10*3/uL Normal 150-450 [facility] Comment on above: Performed By: #### C DP, BMP #### [facility] [address] [place] [address] [employer] Course Designer: Justin Chambers DO RBC (Bld) [#/Vol] 4.68 10*6/uL Normal 4.0-5.2 [facility] Comment on above: Performed By: #### C MARION, BMP #### [facility] [address] [place] [address] Golf Course Designer: Justin Chambers DO WBC (Bld) [#/Vol] 9.4 10*3/uL Normal 3.5-11.0 [facility] Comment on above: Performed By: #### C DP, BMP #### [facility] [address] [place] [address] Golf Course Designer: Justin Chambers DO Abs.Imm.Granulocyte NOT REPORTED Normal 0.00-0.30 [facility] Comment on above: Performed By: #### C DP, BMP #### [facility] [address] [place] [address] [employer] Course Designer: Justin Chambers DO Auto Diff Performed NOT REPORTED Normal [facility] Comment on above: Performed By: #### C DP, BMP #### [facility] [address] [facility] [place] [address] Golf Course Designer: Justin Chambers DO Immature Granulocyte NOT REPORTED Normal 0 [facility] Comment on above: Performed By: #### C DP, BMP #### [facility] [place] [address] [employer] Course Designer: Justin Chambers DO NRBC Automated NOT REPORTED Normal [facility] Comment on above: Performed By: #### C DP, BMP #### [facility] [address] [place] [address] [employer] Course Designer: Justin Chambers DO Platelet Estimate NOT REPORTED Normal [facility] Comment on above: Performed By: #### C DP, BMP #### [facility] [address] [place] [address] [employer] Course Designer: Justin Chambers DO RBC morphology finding Nom (Bld) NOT REPORTED Normal [facility] Comment on above: Performed By: #### C DP, BMP #### [facility] [place] [address] Golf Course Designer: Justin Chambers DO WBC Morphology NOT REPORTED Normal [facility] Comment on above: Performed By: #### C DP, BMP #### [facility] [address] [place] [id number] Golf Course Designer: Justin Chambers DO COVID-19, RapidOrdered By: Ifeoma John on 11-22-2020 SARS-CoV-2 (COVID-19) RNA RAAD+probe Ql (Unsp spec) Not detected Not Detected [facility] Work Phone: Comment on above: Rapid [...] management decisions. Fact sheet for Healthcare Providers: https://www.fda.gov/media/540275/download Fact sheet for Patients: https://www.fda.gov/media/755328/download Methodology: Isothermal Nucleic Acid Amplification Specimen Description .NASOPHARYNGEAL SWAB [facility] [employer] Phone: [facility] [employer] Phone: [id number] 11-22-2020 SARS-CoV-2 (COVID-19) RNA RAAD+probe Ql (Unsp spec) Not detected Normal NOTDET [facility] Comment on above: Result Comment: Rapid [...] management decisions. Fact sheet for Healthcare Providers: https://www.fda.gov/media/447953/download Fact sheet for Patients: https://www.fda.gov/media/948165/download Methodology: Isothermal Nucleic Acid Amplification Performed By: #### C OVRB #### [facility] [address] [place] [address] Golf Course Designer: Justin Chambers DO XR CHEST PORTABLEon 11-23-19 XR CHEST PORTABLE EXAMINATION: ONE XRAY VIEW [...] Ryanne Cantrell MD 11/22/20 Final result Normal [facility] XR CHEST PORTABLEOrdered By: Heena John on 11-22-2020 No acute cardiopulmonary process. Stable cardiomegaly and chronic basilar changes. [employer] Phone: EXAMINATION: ONE XRA Y VIEW OF [...] are age-appropriate. Chronic basilar changes are noted. [employer] Phone: Josea Ntonio, Mhpn Incoming Radiant Results From [employer] - 11/22/2020 1:15 PM EDT EXAMINATION: ONE [...] process. Stable cardiomegaly and chronic basilar changes. [employer] Work Phone: [employer] Phone: CT HEAD WO CONTRASTon 2019 CT [...] Huma Contreras MD 04/18/20 Final result Normal [facility] [employer] 04-16-2020 Erythrocyte distribution width (RBC) [Ratio] 13.0 % Normal 11.8-14.4 [facility] Comment on above: Performed By: #### C MEERA HARRIS, TSH #### [facility] [employer] [address] [place] [phone] Golf Course Designer: Beau Troncoso MD Hematocrit (Bld) [Volume fraction] 45.8 % Normal 36.3-47.1 [facility] Comment on above: Performed By: #### C MEERA HARRIS, TSH #### [facility] [employer] [address] [place] [phone] Golf Course Designer: Beau Troncoso MD Hemoglobin (Bld) [Mass/Vol] 14.3 g/dL Normal 11.9-15.1 [facility] Comment on above: Performed By: #### C BC, CP, TSH #### [facility] [employer] [address] [place] [phone] Golf Course Designer: Beau Troncoso MD MCH (RBC) [Entitic mass] 29.5 pg Normal 25.2-33.5 [facility] Comment on above: Performed By: #### C BC, CP, TSH #### [facility] [employer] [address] [place] [phone] Golf Course Designer: Beau Troncoso MD MCHC (RBC) [Mass/Vol] 31.2 g/dL Normal 28.4-34.8 [facility] Comment on above: Performed By: #### C BC, CP, TSH #### [facility] [employer] [address] [place] [phone] Golf Course Designer: Beau Troncoso MD MCV (RBC) [Entitic vol] 94.6 fL Normal 82.6-102.9 [facility] Comment on above: Performed By: #### C BC, CP, TSH #### [facility] [employer] [address] [place] [phone] Golf Course Designer: Beau Troncoso MD NRBC Automated 0.0 per [address] [facility] Comment on above: Performed By: #### C BC, CP, TSH #### [facility] [employer] [address] [place] [phone] Golf Course Designer: Beau Troncoso MD Platelet mean volume (Bld) [Entitic vol] 9.6 fL Normal 8.1-13.5 [facility] Comment on above: Performed By: #### C BC, CP, TSH #### [facility] [address] [place] [address] Golf Course Designer: Beau Troncoso MD Platelets (Bld) [#/Vol] 419 10*3/uL Normal 138-453 [facility] Comment on above: Performed By: #### C MEERA HARRIS, TSH #### [facility] [address] [place] [address] Golf Course Designer: Beau Troncoso MD RBC (Bld) [#/Vol] 4.84 10*6/uL Normal 3.95-5.11 [facility] Comment on above: Performed By: #### C MEERA HARRIS, TSH #### [facility] [address] [place] [address] Golf Course Designer: Beau Troncoso MD WBC (Bld) [#/Vol] 7.6 10*3/uL Normal 3.5-11.3 [facility] Comment on above: Performed By: #### Felisha HARRIS CP, TSH #### [facility] [address] [place] [address] Golf Course Designer: Beau Troncoso MD Erythrocyte distribution width (RBC) [Ratio] 13.0 % 11.8 - 14.4 % [place] Hematocrit (Bld) [Volume fraction] 45.8 % 36.3 - 47.1 % [place] Hemoglobin (Bld) [Mass/Vol] 14.3 g/dL 11.9 - 15.1 g/dL [place] MCH (RBC) [Entitic mass] 29.5 pg 25.2 - 33.5 pg [place] MCHC (RBC) [Mass/Vol] 31.2 g/dL 28.4 - 34.8 g/dL [place] MCV (RBC) [Entitic vol] 94.6 fL 82.6 - 102.9 fL [place] Platelet mean volume (Bld) [Entitic vol] 9.6 fL 8.1 - 13.5 fL [place] Platelets (Bld) [#/Vol] 419 10*3/uL [place] RBC (Bld) [#/Vol] 4.84 10*6/uL 3.95 - 5.1 1 m/uL [place] WBC (Bld) [#/Vol] 0.0 10*3/uL 0.0 per 10 0 WBC [place] WBC (Bld) [#/Vol] 7.6 10*3/uL [place] Comp Metabolic Profon 2019 (cont.) Normal [facility] Comment on above: Result Comment: Aver age GFR for 60-69 years old: 85 mL/min/1.73sq m Chronic Kidney Disease: <60 mL/min/1.73sq m Kidney failure: <15 mL/min/1.73sq m eGFR calculated using average adult body mass. Additional eGFR calculator available at: http://www.[employer]/multiple_crcl_2011.htm Performed By: #### C KIMBERLY CP, TSH #### [facility] [address] [place] [phone] Golf Course Designer: Beau Troncoso MD Albumin [Mass/Vol] 4.0 g/dL Normal 3.5-5.2 [facility] Comment on above: Performed By: #### C KIMBERLY CP, TSH #### [facility] [address] [place] [phone] Golf Course Designer: Beau Troncoso MD Albumin/Globulin [Mass ratio] 1.4 {ratio} Normal 1.0-2.5 [facility] Comment on above: Performed By: #### C BC CP, TSH #### [facility] [address] [place] [phone] Golf Course Designer: Beau Troncoso MD Alkaline Phos 67 U/L Normal 35-104 [facility] Comment on above: Performed By: #### C BC, CP, TSH #### [facility] [address] [place] [phone] Golf Course Designer: Beau Troncoso MD ALT [Catalytic activity/Vol] 13 U/L Normal 5-33 [facility] Comment on above: Performed By: #### C BC CP, TSH #### [facility] [address] [place] [phone] Golf Course Designer: Beau Troncoso MD Anion gap [Moles/Vol] 8 mmol/L Low 9-17 [facility] Comment on above: Performed By: #### C KIMBERLY CP, TSH #### [facility] [employer] [address] [place] [phone] Golf Course Designer: Beau Troncoso MD AST [Catalytic activity/Vol] 12 U/L Normal <32 [facility] Comment on above: Performed By: #### C KIMBERLY CP, TSH #### [address] [address] [employer] Course Designer: Beau Troncoso MD Bilirubin Ql (U) 0.30 mg/dL Normal 0.3-1.2 [facility] Comment on above: Performed By: #### C MEERA HARRIS, TSH #### [facility] [employer] [address] [place] [phone] Golf Course Designer: Beau Troncoso MD Calcium [Mass/Vol] 8.7 mg/dL Normal 8.6-10.4 [facility] Comment on above: Performed By: #### C KIMBERLY CP, TSH #### [facility] [address] [place] [phone] Golf Course Designer: Beau Troncoso MD Chloride [Moles/Vol] 102 mmol/L Normal 98-107 [facility] Comment on above: Performed By: #### C KIMBERLY CP, TSH #### [facility] [address] [place] [phone] Golf Course Designer: Beau Troncoso MD CO2 [Moles/Vol] 32 mmol/L High 20-31 [facility] Comment on above: Performed By: #### C BC, CP, TSH #### [facility] [address] [place] [phone] Golf Course Designer: Beau Troncoso MD Creatinine [Mass/Vol] 0.78 mg/dL Normal 0.50-0.90 [facility] Comment on above: Performed By: #### C BC, CP, TSH #### [facility] [address] [place] [phone] Golf Course Designer: Beau Troncoso MD GFR, Amer >60 Normal >60 [facility] Comment on above: Performed By: #### C BC, CP, TSH #### [facility] [address] [place] [address] Golf Course Designer: Beau Troncoso MD GFR,non Amer >60 Normal >60 [facility] Comment on above: Performed By: #### C BC, CP, TSH #### [facility] [address] [place] [phone] Golf Course Designer: eBau Troncoso MD Glucose [Mass/Vol] 86 mg/dL Normal 70-99 [facility] Comment on above: Performed By: #### C BC, CP, TSH #### [facility] [address] [place] [address] Golf Course Designer: Beau Troncoso MD Potassium [Moles/Vol] 4.7 mmol/L Normal 3.7-5.3 [facility] Comment on above: Performed By: #### C BC, CP, TSH #### [facility] [address] [place] [phone] Golf Course Designer: Beau Troncoso MD Protein [Mass/Vol] 6.8 g/dL Normal 6.4-8.3 [facility] Comment on above: Performed By: #### C BC, CP, TSH #### [facility] [address] [place] [phone] Golf Course Designer: Beau Troncoso MD Sodium [Moles/Vol] 142 mmol/L Normal 135-144 [facility] Comment on above: Performed By: #### C BC, CP, TSH #### [facility] [address] [place] [address] Golf Course Designer: Beau Troncoso MD Urea nitrogen [Mass/Vol] 22 mg/dL Normal 8- [facility] Comment on above: Performed By: #### C BC, CP, TSH #### [facility] [address] [place] [address] Golf Course Designer: Beau Troncoso MD BUN/CRE Ratio NOT REPORTED Normal - [facility] Comment on above: Performed By: #### C BC, CP, TSH #### [facility] [address] [place] [address] Golf Course Designer: Beau Troncoso MD Staging: NOT REPORTED Normal [facility] Comment on above: Performed By: #### C BC, CP, TSH #### [facility] [address] [place] [address] Golf Course Designer: Beau Troncoso MD [facility] 04-16-2020 Albumin [Mass/Vol] 4 g/dL 3.5 - 5.2 g/dL [place] Albumin/Globulin [Mass ratio] 1.4 {ratio} [place] ALP [Catalytic activity/Vol] 67 U/L 35 - 104 U/L [place] ALT [Catalytic activity/Vol] 13 U/L 5 - 33 U/L [place] Anion gap [Moles/Vol] 8 mmol/L Low 9 - 17 mmol/L [place] AST [Catalytic activity/Vol] 12 U/L <32 [place] Bilirubin Ql (U) 0.30 mg/dL 0.3 - 1.2 mg/dL [place] Bun/Cre Ratio NOT REPORTED [place] Calcium [Mass/Vol] 8.7 mg/dL 8.6 - 10. 4 mg/dL [place] Chloride [Moles/Vol] 102 mmol/L 98 - 10 7 mmol/L [place] CO2 [Moles/Vol] 32 mmol/L High 20 - 31 mmol/L [place] Creatinine [Mass/Vol] 0.78 mg/dL 0.5 - 0.9 mg/dL [place] GFR >60 >60 mL/min [place] GFR Non- >60 >60 mL/min [place] GFR/1.73 sq M predicted among non-blacks MDRD (S/P/Bld) [Vol rate/Area] [place] Comment on above: Average GFR for 60-6 9 years old: 85 mL/min/1.73sq m Chronic Kidney Disease: <60 mL/min/1.73sq m Kidney failure: <15 mL/min/1.73sq m eGFR calculated using average adult body mass. Additional eGFR calculator available at: http://www.[employer]/multiple_crcl_2012.htm GFR/1.73 sq M predicted among non-blacks MDRD (S/P/Bld) [Vol rate/Area] NOT REPORTED [place] Glucose [Mass/Vol] 86 mg/dL 70 - 99 mg/dL [place] Interpretation and review of laboratory results Abnormal [place] Potassium [Moles/Vol] 4.7 mmol/L 3.7 - 5.3 mmol/L [place] Protein [Mass/Vol] 6.8 g/dL 6.4 - 8.3 g/dL [place] Sodium [Moles/Vol] 142 mmol/L 135 - 144 mmol/L [place] Urea nitrogen [Mass/Vol] 22 mg/dL 8 - 23 mg/dL [place] Hemoglobin A1Con 04-16-2020 Glucose [Mass/Vol] 126 mg/dL [place] Comment on above: The ADA and AACC rec ommend providing the estimated average glucose result to permit better patient understanding of their HBA1c result. HbA1c (Bld) [Mass fraction] 6.0 % 4 - 6 % [place] TSH without Reflexon TSH Qn 0.89 m[IU]/L [place] Thyroid Stim. Horm.on 2019 TSH Qn 0.89 m[IU]/L Normal 0.30-5.00 [facility] Comment on above: Performed By: #### C BC, CP, TSH #### [facility] [address] [place] [address] Golf Course Designer: Beau Troncoso MD MRI SHOULDER RIGHT WO [...] Blas Godwin MD 03/25/20 Final result Normal [facility] 1. Moderate acromioclavicular osteoarthritis with reactive edema in the distal clavicle and acromion. 2. Minimal 2 mm interstitial tear of the infraspinatus tendon. Mild bursal surface fraying of the supraspinatus and infraspinatus tendons. No additional rotator cuff tear. 3. No biceps tear. [facility], [place] EXAMINATION: MRI OF THE RIGHT [...] are without obstructing or space occupying lesions. [facility] [place], [place] Jose Antonio, Mhpn Incoming Radiant Results From [employer] - 03/25/2020 4:57 PM EDT EXAMINATION: MRI [...] rotator cuff tear. 3. No biceps tear. [place] C-Reactive Proteinon 020 CRP [Mass/Vol] 13 mg/L High 0 - 5 mg/L [place], [place] CBC Auto Differentialon 10-20 Basophils (Bld) [#/Vol] 0.10 10*3/uL [place] Basophils/100 WBC (Bld) 1 % 0 - 2 % [place] Differential Type NOT REPORTED [place] Eosinophils (Bld) [#/Vol] 0.20 10*3/uL [place] Eosinophils/100 WBC (Bld) 3 % 0 - 4 % [place] Erythrocyte distribution width (RBC) [Ratio] 13.0 % 11.5 - 14.9 % [place] Hematocrit (Bld) [Volume fraction] 42.0 % 36 - 46 % [place] Hemoglobin (Bld) [Mass/Vol] 13.8 g/dL 12 - 16 g/dL [place] Interpretation and review of laboratory results Abnormal [place] Lymphocytes (Bld) [#/Vol] 1.10 10*3/uL [place] Lymphocytes/100 WBC (Bld) 13 % Low 24 - 44 % [place] MCH (RBC) [Entitic mass] 30.5 pg 26 - 34 pg [place] MCHC (RBC) [Mass/Vol] 32.7 g/dL 31 - 3 7 g/dL [place] MCV (RBC) [Entitic vol] 93.1 fL 80 - 100 fL [place] Monocytes (Bld) [#/Vol] 0.50 10*3/uL [place] Monocytes/100 WBC (Bld) 5 % 1 - 7 % [place] Platelet mean volume (Bld) [Entitic vol] 6.9 fL 6 - 12 fL [place] Platelets (Bld) [#/Vol] 382 10*3/uL [place] Platelets (Bld) [#/Vol] NOT REPORTED [place] RBC (Bld) [#/Vol] 4.51 10*6/uL 4 - 5.2 m/uL [place] RBC morphology finding Nom (Bld) NOT REPORTED [place] Segmented neutrophils/100 WBC (Bld) 78 % High 36 - 66 % [place] Segs Absolute 6.90 [place] WBC (Bld) [#/Vol] 8.8 10*3/uL [place] WBC (Bld) [#/Vol] NOT REPORTED per 100 WBC [place] WBC Morphology NOT REPORTED [place] Comprehensive Metabolic Pane deven 11-02-2019 Albumin [Mass/Vol] 4.1 g/dL 3.5 - 5.2 g/dL [place] Albumin/Globulin [Mass ratio] NOT REPORTED [place] ALP [Catalytic activity/Vol] 61 U/L 35 - 104 U/L [place] ALT [Catalytic activity/Vol] 13 U/L 5 - 33 U/L [place] Anion gap [Moles/Vol] 7 mmol/L Low 9 - 17 mmol/L [place] AST [Catalytic activity/Vol] 12 U/L <32 [place] Bilirubin Ql (U) 0.29 mg/dL Low 0.3 - 1.2 mg/dL [place] Bun/Cre Ratio NOT REPORTED [place] Calcium [Mass/Vol] 8.7 mg/dL 8.6 - 10. 4 mg/dL [place] Chloride [Moles/Vol] 101 mmol/L 98 - 10 7 mmol/L [place] CO2 [Moles/Vol] 31 mmol/L 20 - 31 mmol/L [place] Creatinine [Mass/Vol] 0.72 mg/dL 0.5 - 0.9 mg/dL [place] GFR >60 >60 mL/min [place] GFR Non- >60 >60 mL/min [place] GFR/1.73 sq M predicted among non-blacks MDRD (S/P/Bld) [Vol rate/Area] NOT REPORTED [place] GFR/1.73 sq M predicted among non-blacks MDRD (S/P/Bld) [Vol rate/Area] [place] Comment on above: Average GFR for 60-6 9 years old: 85 mL/min/1.73sq m Chronic Kidney Disease: <60 mL/min/1.73sq m Kidney failure: <15 mL/min/1.73sq m eGFR calculated using average adult body mass. Additional eGFR calculator available at: http://www.[employer]/multiple_crcl_2011.htm Glucose [Mass/Vol] 118 mg/dL High 70 - 99 mg/dL [place] Potassium [Moles/Vol] 4.8 mmol/L 3.7 - 5.3 mmol/L [place] Protein [Mass/Vol] 7.5 g/dL 6.4 - 8.3 g/dL [place] Sodium [Moles/Vol] 139 mmol/L 135 - 144 mmol/L [place] Urea nitrogen [Mass/Vol] 21 mg/dL 8 - 23 mg/dL [place] D-Dimer, Quantitativeon 10-20 D-Dimer, Quant <0.27 [place], [place] Comment on above: When combined with [...] LD 173 U/L 135 - 214 U/L [place] Lactic Acid, Plasmaon 2019 Lactate [Moles/Vol] 0.5 mmol/L 0.5 - 2. 2 mmol/L [place] Lactic Acid, Whole Blood NOT REPORTED 0.7 - 2.1 mmol/L [place] Otheron 11-02-2019 Interpretation and review of laboratory results Abnormal [place] Immature granulocytes (Bld) [#/Vol] NOT REPORTED [place] Troponinon 11-02-2019 Troponin I.cardiac [Mass/Vol] NOT REPORTED [place] Troponin T.cardiac [Mass/Vol] NOT REPORTED <0.03 ng/mL [place] Troponin, High Sensitivity <6 0 - 14 ng/L [place] Comment on above: High Sensitivity Troponin values cannot be compared with other Troponin methodologies. Patients with high levels of Biotin oral intake (i.e >5mg/day) may have falsely decreased Troponin levels. Samples collected within 8 hours of biotin intake may require additional information for diagnosis. Troponin I.cardiac [Mass/Vol] NOT REPORTED [place] Troponin T.cardiac [Mass/Vol] NOT REPORTED <0.03 ng/mL [place] Troponin, High Sensitivity <6 0 - 14 ng/L [place] Comment on above: High Sensitivity Troponin [...] unremarkable. The extrathoracic soft tissues are unremarkable. [place] Cardiomegaly and chronic pulmonary change without acute pulmonary process. [place], [place] Jose Antonio, Mhpn Incoming Radiant Results From [employer] - 11/02/2019 10:59 AM EDT EXAMINATION: ONE [...] chronic pulmonary change without acute pulmonary process. [place] B.A.L. CELL COUNTon 10-07-19 Fluid Diff Comment Reviewed by pathologist: Justin Chambers D.O. [place], [place] Comment on above: SLIDE REVIEWED. MACR OPHAGES AND MIXED INFLAMMATORY CELLS NOTED. CORRECTED ON 10/06 AT 1306: PREVIOUSLY REPORTED TO BE REVIEWED BY PATHOLOGIST RBC (Bld) [#/Vol] 913 /mm3 [place], [place] Specimen type Nom (Spec) .BRONCHIAL WASHINGS [place] WBC (Bld) [#/Vol] 38 /mm3 [place] Culture, Respiratoryon 10-06 Culture NORMAL RESPIRATORY CHERYL MODERATE GROWTH [place] Direct Exam FEW NEUTROPHILS Abnormal [place] Interpretation and review of laboratory results Abnormal [place] Special Requests NOT REPORTED [place] Specimen Description .BRONCHIAL WASHINGS [place] Fungal stainon 10-07-2019 Direct Exam NO FUNGAL ELEMENTS SEEN [place] Special Requests NOT REPORTED [place] Specimen Description .BRONCHIAL WASHINGS [place] Otheron 10-07-2019 Direct Exam Positive Abnormal [place] CBC with DIFFon 10-06-2019 Basophils (Bld) [#/Vol] 0.14 10*3/uL [place] Basophils/100 WBC (Bld) 1 % 0 - 2 % [place] Differential Type NOT REPORTED [place] Eosinophils (Bld) [#/Vol] 0.00 10*3/uL [place] Eosinophils/100 WBC (Bld) 0 % 0 - 4 % [place] Erythrocyte distribution width (RBC) [Ratio] 13.4 % 11.5 - 14.9 % [place] Hematocrit (Bld) [Volume fraction] 40.9 % 36 - 46 % [place] Hemoglobin (Bld) [Mass/Vol] 13.5 g/dL 12 - 16 g/dL [place] Interpretation and review of laboratory results Abnormal [place] Lymphocytes (Bld) [#/Vol] 1.15 10*3/uL [place] Lymphocytes/100 WBC (Bld) 8 % Low 24 - 44 % [place] MCH (RBC) [Entitic mass] 30.6 pg 26 - 34 pg [place] MCHC (RBC) [Mass/Vol] 33.0 g/dL 31 - 3 7 g/dL [place] MCV (RBC) [Entitic vol] 92.7 fL 80 - 100 fL [place] Monocytes (Bld) [#/Vol] 0.29 10*3/uL [place] Monocytes/100 WBC (Bld) 2 % 1 - 7 % [place] Morphology Den (Bld) [Interp] Normal [place] Platelet mean volume (Bld) [Entitic vol] 7.3 fL 6 - 12 fL [place] Platelets (Bld) [#/Vol] NOT REPORTED [place] Platelets (Bld) [#/Vol] 419 10*3/uL [place] RBC (Bld) [#/Vol] 4.41 10*6/uL 4 - 5.2 m/uL [place] RBC morphology finding Nom (Bld) NOT REPORTED [place] Segmented neutrophils/100 WBC (Bld) 89 % High 36 - 66 % [place] Segs Absolute 12.82 High [place] WBC (Bld) [#/Vol] NOT REPORTED per 100 WBC [place] WBC (Bld) [#/Vol] 14.4 10*3/uL High [place] WBC Morphology NOT REPORTED [place] Cell Count with Diff, BALon 10-06-2019 BAL Diff Comment TO BE REVIEWED BY PATHOLOGIST [place] Columnar Epis BAL PRESENT [place], [place] Eosinophils/100 WBC (Bld) 4 % High 0 - 1 % [place] Interpretation and review of laboratory results Abnormal [place] Lymphocytes/100 WBC (Bld) 13 % High 8 - 12 % [place] Macrophages, BAL 61 % Low 85 - 95 % [place] Segmented neutrophils/100 WBC (Bld) 22 % High 0 - 10 % [place] Comp Metabolic Profon 2019 Albumin [Mass/Vol] 3.5 g/dL 3.5 - 5.2 g/dL [place] Albumin/Globulin [Mass ratio] NOT REPORTED [place] ALP [Catalytic activity/Vol] 49 U/L 35 - 104 U/L [place] ALT [Catalytic activity/Vol] 10 U/L 5 - 33 U/L [place] Anion gap [Moles/Vol] 12 mmol/L 9 - 17 mmol/L [place] AST [Catalytic activity/Vol] 12 U/L <32 [place] Bilirubin Ql (U) 0.30 mg/dL 0.3 - 1.2 mg/dL [place] Bun/Cre Ratio NOT REPORTED [place] Calcium [Mass/Vol] 9.0 mg/dL 8.6 - 10. 4 mg/dL [place] Chloride [Moles/Vol] 100 mmol/L 98 - 10 7 mmol/L [place] CO2 [Moles/Vol] 26 mmol/L 20 - 31 mmol/L [place] Creatinine [Mass/Vol] 0.72 mg/dL 0.5 - 0.9 mg/dL [place] GFR >60 >60 mL/min [place] GFR Non- >60 >60 mL/min [place] GFR/1.73 sq M predicted among non-blacks MDRD (S/P/Bld) [Vol rate/Area] [place] Comment on above: Average GFR for 60-6 9 years old: 85 mL/min/1.73sq m Chronic Kidney Disease: <60 mL/min/1.73sq m Kidney failure: <15 mL/min/1.73sq m eGFR calculated using average adult body mass. Additional eGFR calculator available at: http://www.[employer]/multiple_crcl_2012.htm GFR/1.73 sq M predicted among non-blacks MDRD (S/P/Bld) [Vol rate/Area] NOT REPORTED [place] Glucose [Mass/Vol] 145 mg/dL High 70 - 99 mg/dL [place] Potassium [Moles/Vol] 4.1 mmol/L 3.7 - 5.3 mmol/L [place] Protein [Mass/Vol] 6.7 g/dL 6.4 - 8.3 g/dL [place] Sodium [Moles/Vol] 138 mmol/L 135 - 144 mmol/L [place] Urea nitrogen [Mass/Vol] 23 mg/dL 8 - 23 mg/dL [place] Culture, Virus, Respiratoryo n 10-06-2019 Culture VIRAL RESPIRATORY CULTURES ARE NOT LONGER PERFORMED [place] Special Requests NOT REPORTED [place] Specimen Description .BRONCHIAL WASHINGS [place] Otheron 10-06-2019 Interpretation and review of laboratory results Abnormal [place] Immature granulocytes (Bld) [#/Vol] NOT REPORTED [place] T4, Freeon 10-06-2019 Interpretation and review of laboratory results Abnormal [place] Thyroxine, Free 2.03 ng/dL High 0.93 - 1.7 ng/dL [place] TSH with Reflexon 10-06-2019 TSH Qn 0.10 m[IU]/L [place] Basic Metabolic Panel w/ Ref alvin to MGon 10-05-2019 Anion gap [Moles/Vol] 9 mmol/L 9 - 17 mmol/L [place] Bun/Cre Ratio NOT REPORTED [place] Calcium [Mass/Vol] 8.8 mg/dL 8.6 - 10. 4 mg/dL [place] Chloride [Moles/Vol] 102 mmol/L 98 - 10 7 mmol/L [place] [place] CO2 [Moles/Vol] 29 mmol/L 20 - 31 mmol/L [place] Creatinine [Mass/Vol] 0.72 mg/dL 0.5 - 0.9 mg/dL [place], [place] GFR >60 >60 mL/min [place], [place] GFR Non- >60 >60 mL/min [place] GFR/1.73 sq M predicted among non-blacks MDRD (S/P/Bld) [Vol rate/Area] NOT REPORTED [place] GFR/1.73 sq M predicted among non-blacks MDRD (S/P/Bld) [Vol rate/Area] [place], [place] Comment on above: Average GFR for 60-6 9 years old: 85 mL/min/1.73sq m Chronic Kidney Disease: <60 mL/min/1.73sq m Kidney failure: <15 mL/min/1.73sq m eGFR calculated using average adult body mass. Additional eGFR calculator available at: http://www.[employer]/multiple_crcl_2012.htm Glucose [Mass/Vol] 97 mg/dL 70 - 99 mg/dL [place], [place] Potassium [Moles/Vol] 4.3 mmol/L 3.7 - 5.3 mmol/L [place] Sodium [Moles/Vol] 140 mmol/L 135 - 144 mmol/L [place], [place] Urea nitrogen [Mass/Vol] 18 mg/dL 8 - 23 mg/dL [place] CBC with DIFFon 10-05-2019 Basophils (Bld) [#/Vol] 0.10 10*3/uL [place] Basophils/100 WBC (Bld) 1 % 0 - 2 % [place] Differential Type NOT REPORTED [place] Eosinophils (Bld) [#/Vol] 0.50 10*3/uL [place] Eosinophils/100 WBC (Bld) 6 % High 0 - 4 % [place] Erythrocyte distribution width (RBC) [Ratio] 13.4 % 11.5 - 14.9 % [place] Hematocrit (Bld) [Volume fraction] 40.2 % 36 - 46 % [place] Hemoglobin (Bld) [Mass/Vol] 13.4 g/dL 12 - 16 g/dL [place] Interpretation and review of laboratory results Abnormal [place] Lymphocytes (Bld) [#/Vol] 2.50 10*3/uL [place] Lymphocytes/100 WBC (Bld) 30 % 24 - 44 % [place] MCH (RBC) [Entitic mass] 30.5 pg 26 - 34 pg [place] MCHC (RBC) [Mass/Vol] 33.3 g/dL 31 - 3 7 g/dL [place] MCV (RBC) [Entitic vol] 91.5 fL 80 - 100 fL [place] Monocytes (Bld) [#/Vol] 0.90 10*3/uL [place] Monocytes/100 WBC (Bld) 11 % High 1 - 7 % [place] Platelet mean volume (Bld) [Entitic vol] 6.9 fL 6 - 12 fL [place] Platelets (Bld) [#/Vol] 407 10*3/uL [place] Platelets (Bld) [#/Vol] NOT REPORTED [place] RBC (Bld) [#/Vol] 4.39 10*6/uL 4 - 5.2 m/uL [place] RBC morphology finding Nom (Bld) NOT REPORTED [place] Segmented neutrophils/100 WBC (Bld) 52 % 36 - 66 % [place] Segs Absolute 4.20 [place] WBC (Bld) [#/Vol] NOT REPORTED per 100 WBC [place] WBC (Bld) [#/Vol] 8.1 10*3/uL [place] WBC Morphology NOT REPORTED [place], [place] Otheron 10-05-2019 Immature granulocytes (Bld) [#/Vol] NOT REPORTED 0 % [place] XR CHEST PORTABLEon 10-05-19 20 EXAMINATION: [...] could better evaluate lung parenchyma if indicated. [place], [place] Jose Antonio, Mhpn Incoming Radiant Results From [employer] - 10/05/2019 6:01 PM EDT EXAMINATION: ONE [...] base. [facility] dise ase representing atelectasis or infiltrate in the right lung base. Follow up to resolution is suggested. [facility] XR CHEST PORTABLEon 09-15-19 20 Perihilar and suprahilar airspace opacities could represent interstitial edema versus developing airspace disease. Please correlate exam findings. Follow-up to assure resolution following medical treatment course [facility]: ONE XRA Y VIEW OF THE CHEST 09/15/2019 5:51 pm COMPARISON: 08/25/2019 HISTORY: ORDERING SYSTEM PROVIDED HISTORY: cough TECHNOLOGIST PROVIDED HISTORY: cough Reason for Exam: cough Acuity: Unknown Type of Exam: Unknown FINDINGS: The cardiomediastinal silhouette is normal in size and contour. Perihilar edema. Patchy suprahilar airspace opacities.. No pleural effusion or pneumothorax is present. [facility] Jose Antonio, Mhpn Incoming Radiant Results From [employer] - 09/15/2019 6:05 PM EDT EXAMINATION: ONE [...] assure resolution following medical treatment course [facility] CBC auto differentialon Basophils (Bld) [#/Vol] 0.00 10*3/uL [place] Basophils/100 WBC (Bld) 0 % 0 - 2 % [place] Differential Type NOT REPORTED [place] Eosinophils (Bld) [#/Vol] 0.00 10*3/uL [place] Eosinophils/100 WBC (Bld) 0 % 0 - 4 % [place] Erythrocyte distribution width (RBC) [Ratio] 13.8 % 11.5 - 14.9 % [place] Hematocrit (Bld) [Volume fraction] 39.9 % 36 - 46 % [place] Hemoglobin (Bld) [Mass/Vol] 13.1 g/dL 12 - 16 g/dL [place] Interpretation and review of laboratory results Abnormal [place] Lymphocytes (Bld) [#/Vol] 1.00 10*3/uL [place] Lymphocytes/100 WBC (Bld) 8 % Low 24 - 44 % [place] MCH (RBC) [Entitic mass] 30.8 pg 26 - 34 pg [place] MCHC (RBC) [Mass/Vol] 32.9 g/dL 31 - 3 7 g/dL [place] MCV (RBC) [Entitic vol] 93.5 fL 80 - 100 fL [place], [place] Monocytes (Bld) [#/Vol] 0.90 10*3/uL [place], [place] Monocytes/100 WBC (Bld) 7 % 1 - 7 % [place] Platelet mean volume (Bld) [Entitic vol] 6.7 fL 6 - 12 fL [place] Platelets (Bld) [#/Vol] NOT REPORTED [place] Platelets (Bld) [#/Vol] 341 10*3/uL [place] RBC (Bld) [#/Vol] 4.27 10*6/uL 4 - 5.2 m/uL [place], [place] RBC morphology finding Nom (Bld) NOT REPORTED [place] Segmented neutrophils/100 WBC (Bld) 85 % High 36 - 66 % [place] Segs Absolute 11.30 High [place] WBC (Bld) [#/Vol] NOT REPORTED per 100 WBC [place] WBC (Bld) [#/Vol] 13.2 10*3/uL [place] WBC Morphology NOT REPORTED [place] Comprehensive Metabolic Pane l w/ Reflex to MGon 08-29-2019 Albumin [Mass/Vol] 3.3 g/dL Low 3.5 - 5.2 g/dL [place], [place] Albumin/Globulin [Mass ratio] NOT REPORTED [place] ALP [Catalytic activity/Vol] 51 U/L 35 - 104 U/L [place] ALT [Catalytic activity/Vol] 28 U/L 5 - 33 U/L [place] Anion gap [Moles/Vol] 10 mmol/L 9 - 17 mmol/L [place] AST [Catalytic activity/Vol] 19 U/L <32 [place] Bilirubin Ql (U) 0.23 mg/dL Low 0.3 - 1.2 mg/dL [place], [place] Bun/Cre Ratio NOT REPORTED [place], [place] Calcium [Mass/Vol] 7.9 mg/dL Low 8.6 - 10. 4 mg/dL [place] Chloride [Moles/Vol] 104 mmol/L 98 - 10 7 mmol/L [place] CO2 [Moles/Vol] 28 mmol/L 20 - 31 mmol/L [place] Creatinine [Mass/Vol] 0.73 mg/dL 0.5 - 0.9 mg/dL [place] GFR >60 >60 mL/min [place] GFR Non- >60 >60 mL/min [place] GFR/1.73 sq M predicted among non-blacks MDRD (S/P/Bld) [Vol rate/Area] [place], [place] Comment on above: Average GFR for 60-6 9 years old: 85 mL/min/1.73sq m Chronic Kidney Disease: <60 mL/min/1.73sq m Kidney failure: <15 mL/min/1.73sq m eGFR calculated using average adult body mass. Additional eGFR calculator available at: http://www.[employer]/multiple_crcl_2012.htm GFR/1.73 sq M predicted among non-blacks MDRD (S/P/Bld) [Vol rate/Area] NOT REPORTED [place], [place] Glucose [Mass/Vol] 125 mg/dL High 70 - 99 mg/dL [place] Interpretation and review of laboratory results Abnormal [place], [place] Potassium [Moles/Vol] 4.5 mmol/L 3.7 - 5.3 mmol/L [place] Protein [Mass/Vol] 5.9 g/dL Low 6.4 - 8.3 g/dL [place], [place] Sodium [Moles/Vol] 142 mmol/L 135 - 144 mmol/L [place], [place] Urea nitrogen [Mass/Vol] 28 mg/dL High 8 - 23 mg/dL [place], [place] Otheron 08-29-2019 Immature granulocytes (Bld) [#/Vol] NOT REPORTED [place], [place] CBC auto differentialon Absolute Bands # 0.14 [place] Bands 1 % 0 - 10 % [place] Basophils (Bld) [#/Vol] 0.00 10*3/uL [place] Basophils/100 WBC (Bld) 0 % 0 - 2 % [place] Differential Type NOT REPORTED [place] Eosinophils (Bld) [#/Vol] 0.00 10*3/uL [place] Eosinophils/100 WBC (Bld) 0 % 0 - 4 % [place] Erythrocyte distribution width (RBC) [Ratio] 13.8 % 11.5 - 14.9 % [place] Hematocrit (Bld) [Volume fraction] 40.1 % 36 - 46 % [place] Hemoglobin (Bld) [Mass/Vol] 13.2 g/dL 12 - 16 g/dL [place] Interpretation and review of laboratory results Abnormal [place] Lymphocytes (Bld) [#/Vol] 0.85 10*3/uL Low [place], [place] Lymphocytes/100 WBC (Bld) 6 % Low 24 - 44 % [place] MCH (RBC) [Entitic mass] 30.8 pg 26 - 34 pg [place] MCHC (RBC) [Mass/Vol] 32.9 g/dL 31 - 3 7 g/dL [place] MCV (RBC) [Entitic vol] 93.5 fL 80 - 100 fL [place], [place] Monocytes (Bld) [#/Vol] 0.99 10*3/uL [place], [place] Monocytes/100 WBC (Bld) 7 % 1 - 7 % [place] Morphology Den (Bld) [Interp] Normal [place] Platelet mean volume (Bld) [Entitic vol] 6.7 fL 6 - 12 fL [place], [place] Platelets (Bld) [#/Vol] 339 10*3/uL [place] Platelets (Bld) [#/Vol] NOT REPORTED [place] RBC (Bld) [#/Vol] 4.29 10*6/uL 4 - 5.2 m/uL [place] RBC morphology finding Nom (Bld) NOT REPORTED [place] Segmented neutrophils/100 WBC (Bld) 86 % High 36 - 66 % [place] Segs Absolute 12.22 High [place] WBC (Bld) [#/Vol] 14.2 10*3/uL [place] WBC (Bld) [#/Vol] NOT REPORTED per 100 WBC [place], [place] WBC Morphology NOT REPORTED [place] Comprehensive Metabolic Pane l w/ Reflex to MGon 08-28-2019 Albumin [Mass/Vol] 3.5 g/dL 3.5 - 5.2 g/dL [place] Albumin/Globulin [Mass ratio] NOT REPORTED [place] ALP [Catalytic activity/Vol] 52 U/L 35 - 104 U/L [place] ALT [Catalytic activity/Vol] 17 U/L 5 - 33 U/L [place] Anion gap [Moles/Vol] 10 mmol/L 9 - 17 mmol/L [place] AST [Catalytic activity/Vol] 13 U/L <32 [place], [place] Bilirubin Ql (U) 0.16 mg/dL Low 0.3 - 1.2 mg/dL [place] Bun/Cre Ratio NOT REPORTED [place], [place] Calcium [Mass/Vol] 7.8 mg/dL Low 8.6 - 10. 4 mg/dL [place], [place] Chloride [Moles/Vol] 104 mmol/L 98 - 10 7 mmol/L [place] CO2 [Moles/Vol] 29 mmol/L 20 - 31 mmol/L [place] Creatinine [Mass/Vol] 0.82 mg/dL 0.5 - 0.9 mg/dL [place] GFR >60 >60 mL/min [place] GFR Non- >60 >60 mL/min [place] GFR/1.73 sq M predicted among non-blacks MDRD (S/P/Bld) [Vol rate/Area] [place], [place] Comment on above: Average GFR for 60-6 9 years old: 85 mL/min/1.73sq m Chronic Kidney Disease: <60 mL/min/1.73sq m Kidney failure: <15 mL/min/1.73sq m eGFR calculated using average adult body mass. Additional eGFR calculator available at: http://www.[employer]/multiple_crcl_2012.htm GFR/1.73 sq M predicted among non-blacks MDRD (S/P/Bld) [Vol rate/Area] NOT REPORTED [place] Glucose [Mass/Vol] 153 mg/dL High 70 - 99 mg/dL [place] Interpretation and review of laboratory results Abnormal [place] Potassium [Moles/Vol] 4.4 mmol/L 3.7 - 5.3 mmol/L [place] Protein [Mass/Vol] 6.0 g/dL Low 6.4 - 8.3 g/dL [place], [place] Sodium [Moles/Vol] 143 mmol/L 135 - 144 mmol/L [place], [place] Urea nitrogen [Mass/Vol] 21 mg/dL 8 - 23 mg/dL [place], [place] Otheron 08-28-2019 Immature granulocytes (Bld) [#/Vol] NOT REPORTED 0 % [place] Basic Metabolic Panel w/ Ref alvin to MGon 08-26-2019 Anion gap [Moles/Vol] 10 mmol/L 9 - 17 mmol/L [place] Bun/Cre Ratio NOT REPORTED [place], [place] Calcium [Mass/Vol] 8.1 mg/dL Low 8.6 - 10. 4 mg/dL [place] Chloride [Moles/Vol] 104 mmol/L 98 - 10 7 mmol/L [place] CO2 [Moles/Vol] 26 mmol/L 20 - 31 mmol/L [place] Creatinine [Mass/Vol] 0.78 mg/dL 0.5 - 0.9 mg/dL [place] GFR >60 >60 mL/min [place] GFR Non- >60 >60 mL/min [place] GFR/1.73 sq M predicted among non-blacks MDRD (S/P/Bld) [Vol rate/Area] [place], [place] Comment on above: Average GFR for 60-6 9 years old: 85 mL/min/1.73sq m Chronic Kidney Disease: <60 mL/min/1.73sq m Kidney failure: <15 mL/min/1.73sq m eGFR calculated using average adult body mass. Additional eGFR calculator available at: http://www.[employer]/multiple_crcl_2012.htm GFR/1.73 sq M predicted among non-blacks MDRD (S/P/Bld) [Vol rate/Area] NOT REPORTED [place], [place] Glucose [Mass/Vol] 179 mg/dL High 70 - 99 mg/dL [place] Interpretation and review of laboratory results Abnormal [place] Potassium [Moles/Vol] 5.0 mmol/L 3.7 - 5.3 mmol/L [place] Sodium [Moles/Vol] 140 mmol/L 135 - 144 mmol/L [place], [place] Urea nitrogen [Mass/Vol] 20 mg/dL 8 - 23 mg/dL [place] CBCon 08-26-2019 Erythrocyte distribution width (RBC) [Ratio] 13.8 % 11.5 - 14.9 % [place] Hematocrit (Bld) [Volume fraction] 41.6 % 36 - 46 % [place] Hemoglobin (Bld) [Mass/Vol] 14.1 g/dL 12 - 16 g/dL [place] MCH (RBC) [Entitic mass] 31.3 pg 26 - 34 pg [place] MCHC (RBC) [Mass/Vol] 33.9 g/dL 31 - 3 7 g/dL [place] MCV (RBC) [Entitic vol] 92.3 fL 80 - 100 fL [place] Platelet mean volume (Bld) [Entitic vol] 6.9 fL 6 - 12 fL [place], [place] Platelets (Bld) [#/Vol] 316 10*3/uL [place] RBC (Bld) [#/Vol] 4.51 10*6/uL 4 - 5.2 m/uL [place] WBC (Bld) [#/Vol] 6.9 10*3/uL [place] WBC (Bld) [#/Vol] NOT REPORTED per 100 WBC [place], [place] EKG 12 Leadon 08-26-2019 Atrial Rate 133 BPM [place], [place] P [place] 44 degrees [place], [place] P-R Interval 128 ms [place], [place] Q-T Interval 282 ms [place] QRS Duration 84 ms [place] QTc Calculation (Bazett) 419 ms [place], [place] R [place] 51 degrees [place], [place] T [place] 16 degrees [place] Ventricular Rate 133 BPM [place] Sinus tachycardia Otherwise normal ECG No previous ECGs available [place], [place] Jose Antonio, Mhpn Incoming E kg Results From [facility] - 08/26/2019 9:03 AM EST Sinus tachycardia Otherwise normal ECG No previous ECGs available [place] APTTon 08-25-2019 aPTT Coag (Bld) [Time] 30.1 s Me [place], [place] Comment on above: IV Heparin Therapy Range: 62.0-94.0 Amylaseon 08-25-2019 Amylase [Catalytic activity/Vol] 37 U/L 28 - 100 U/L [place] Basic Metabolic Panel w/ Ref alvin to MGon 08-25-2019 Anion gap [Moles/Vol] 11 mmol/L 9 - 17 mmol/L [place] Bun/Cre Ratio NOT REPORTED [place], [place] Calcium [Mass/Vol] 8.6 mg/dL 8.6 - 10. 4 mg/dL [place] Chloride [Moles/Vol] 97 mmol/L Low 98 - 10 7 mmol/L [place] CO2 [Moles/Vol] 26 mmol/L 20 - 31 mmol/L [place] Creatinine [Mass/Vol] 0.81 mg/dL 0.5 - 0.9 mg/dL [place] GFR >60 >60 mL/min [place] GFR Non- >60 >60 mL/min [place] GFR/1.73 sq M predicted among non-blacks MDRD (S/P/Bld) [Vol rate/Area] NOT REPORTED [place] GFR/1.73 sq M predicted among non-blacks MDRD (S/P/Bld) [Vol rate/Area] [place], KY Comment on above: Average GFR for 60-6 9 years old: 85 mL/min/1.73sq m Chronic Kidney Disease: <60 mL/min/1.73sq m Kidney failure: <15 mL/min/1.73sq m eGFR calculated using average adult body mass. Additional eGFR calculator available at: http://www.[employer]/multiple_crcl_2012.htm Glucose [Mass/Vol] 121 mg/dL High 70 - 99 mg/dL [place] Potassium [Moles/Vol] 4.2 mmol/L 3.7 - 5.3 mmol/L [place] Sodium [Moles/Vol] 134 mmol/L Low 135 - 144 mmol/L [place], [place] Urea nitrogen [Mass/Vol] 17 mg/dL 8 - 23 mg/dL [place] Brain Natriuretic Peptideon 08-25-2019 Natriuretic peptide B (Bld) [Mass/Vol] Pro-BNP Reference Range: [place], [place] Comment on above: Rule Out: <300 [place] Zone: Age <50 300-450 Age 50-75 300-900 Age >75 300-1800 Usually represents mild to moderate HF but other cardiopulmonary causes cannot be ruled out. Rule In: Age <50 >450 Age 50-75 >900 Age >75 >1800 Natriuretic peptide B (Bld) [Mass/Vol] 42 pg/mL <300 [place], [place] Comment on above: Pro-BNP results ridge ot be compared to BNP results. CBC Auto Differentialon Basophils (Bld) [#/Vol] 0.10 10*3/uL [place] Basophils/100 WBC (Bld) 1 % 0 - 2 % [place] Differential Type NOT REPORTED [place] Eosinophils (Bld) [#/Vol] 0.20 10*3/uL [place] Eosinophils/100 WBC (Bld) 2 % 0 - 4 % [place] Erythrocyte distribution width (RBC) [Ratio] 13.8 % 11.5 - 14.9 % [place] Hematocrit (Bld) [Volume fraction] 47.4 % High 36 - 46 % [place] Hemoglobin (Bld) [Mass/Vol] 15.7 g/dL 12 - 16 g/dL [place] Interpretation and review of laboratory results Abnormal [place] Lymphocytes (Bld) [#/Vol] 0.80 10*3/uL Low [place] Lymphocytes/100 WBC (Bld) 7 % Low 24 - 44 % [place] MCH (RBC) [Entitic mass] 30.6 pg 26 - 34 pg [place] MCHC (RBC) [Mass/Vol] 33.2 g/dL 31 - 3 7 g/dL [place] MCV (RBC) [Entitic vol] 92.0 fL 80 - 100 fL [place] Monocytes (Bld) [#/Vol] 0.50 10*3/uL [place] Monocytes/100 WBC (Bld) 4 % 1 - 7 % [place] Platelet mean volume (Bld) [Entitic vol] 7.2 fL 6 - 12 fL [place] Platelets (Bld) [#/Vol] NOT REPORTED [place] Platelets (Bld) [#/Vol] 363 10*3/uL [place] RBC (Bld) [#/Vol] 5.15 10*6/uL 4 - 5.2 m/uL [place] RBC morphology finding Nom (Bld) NOT REPORTED [place] Segmented neutrophils/100 WBC (Bld) 86 % High 36 - 66 % [place] Segs Absolute 10.40 High [place] WBC (Bld) [#/Vol] 12.0 10*3/uL [place] WBC (Bld) [#/Vol] NOT REPORTED per 100 WBC [place] WBC Morphology NOT REPORTED [place] Hepatic Function Panelon Albumin [Mass/Vol] 4 g/dL 3.5 - 5.2 g/dL [place] Albumin/Globulin [Mass ratio] NOT REPORTED [place] ALP [Catalytic activity/Vol] 67 U/L 35 - 104 U/L [place] ALT [Catalytic activity/Vol] 19 U/L 5 - 33 U/L [place] AST [Catalytic activity/Vol] 12 U/L <32 [place] Bilirubin Ql (U) 0.53 mg/dL 0.3 - 1.2 mg/dL [place] Bilirubin, Indirect 0.39 mg/dL 0 - 1 mg/dL [place] Bilirubin.direct [Mass/Vol] 0.14 mg/dL <0.31 [place] Globulin (S) [Mass/Vol] NOT REPORTED 1.5 - 3.8 g/dL [place] Protein [Mass/Vol] 7.4 g/dL 6.4 - 8.3 g/dL [place] Lipaseon 08-25-2019 Lipase [Catalytic activity/Vol] 12 U/L Low 13 - 60 U/L [place] KY Otheron 08-25-2019 Interpretation and review of laboratory results Abnormal [place] Immature granulocytes (Bld) [#/Vol] NOT REPORTED 0 % [place] Protime-INRon 08-25-2019 INR Coag (PPP) [Relative time] 1.1 {INR} [place] Comment on above: Non-therapeutic Range: INR = 0.9-1.2 Therapeutic Range: Moderate Anticoagulant Intensity: INR = 2.0-3.0 High Anticoagulant Intensity: INR = 2.5-3.5 PT Coag (PPP) [Time] 13.6 s [place] Rapid influenza A/B antigens on 08-25-2019 Direct Exam Negative [place] Direct Exam Positive Abnormal [place] Interpretation and review of laboratory results Abnormal [place] Special Requests NOT REPORTED [place] Specimen Description .NASOPHARYNGEAL SWAB [place] Troponinon 08-25-2019 Troponin I.cardiac [Mass/Vol] NOT REPORTED [place] Troponin T.cardiac [Mass/Vol] NOT REPORTED <0.03 ng/mL [place] Troponin, High Sensitivity 9 ng/L 0 - 14 ng/L [place] Comment on above: High Sensitivity Troponin [...] diaphragm. No evidence of acute osseous abnormality. [place] Jose Antonio, Mhpn Incoming Radiant Results From [employer] - 08/25/2019 4:43 PM EST EXAMINATION: ONE [...] vascular congestion. Interstitial edema appears slightly improved. [place] Unchanged mild cardiomegaly and vascular congestion. Interstitial edema appears slightly improved. [place] Basic Metabolic Profon 08-10 Anion gap [Moles/Vol] 11 mmol/L 9 - 17 mmol/L [place] Bun/Cre Ratio NOT REPORTED [place] Calcium [Mass/Vol] 7.7 mg/dL Low 8.6 - 10. 4 mg/dL [place] Chloride [Moles/Vol] 101 mmol/L 98 - 10 7 mmol/L [place] CO2 [Moles/Vol] 28 mmol/L 20 - 31 mmol/L [place] Creatinine [Mass/Vol] 0.75 mg/dL 0.5 - 0.9 mg/dL [place] GFR >60 >60 mL/min [place] GFR Non- >60 >60 mL/min [place] GFR/1.73 sq M predicted among non-blacks MDRD (S/P/Bld) [Vol rate/Area] [place], KY Comment on above: Average GFR for 60-6 9 years old: 85 mL/min/1.73sq m Chronic Kidney Disease: <60 mL/min/1.73sq m Kidney failure: <15 mL/min/1.73sq m eGFR calculated using average adult body mass. Additional eGFR calculator available at: http://www.[employer]/multiple_crcl_2012.htm GFR/1.73 sq M predicted among non-blacks MDRD (S/P/Bld) [Vol rate/Area] NOT REPORTED [place] Glucose [Mass/Vol] 162 mg/dL High 70 - 99 mg/dL [place] Interpretation and review of laboratory results Abnormal [place] Potassium [Moles/Vol] 4.1 mmol/L 3.7 - 5.3 mmol/L [place] Sodium [Moles/Vol] 140 mmol/L 135 - 144 mmol/L [place] Urea nitrogen [Mass/Vol] 29 mg/dL High 8 - 23 mg/dL [place] CBCon 08-10-2019 Erythrocyte distribution width (RBC) [Ratio] 13.4 % 11.5 - 14.9 % [place] Hematocrit (Bld) [Volume fraction] 41.6 % 36 - 46 % [place] Hemoglobin (Bld) [Mass/Vol] 13.9 g/dL 12 - 16 g/dL [place] Interpretation and review of laboratory results Abnormal [place] MCH (RBC) [Entitic mass] 31.1 pg 26 - 34 pg [place] MCHC (RBC) [Mass/Vol] 33.4 g/dL 31 - 3 7 g/dL [place] MCV (RBC) [Entitic vol] 93.2 fL 80 - 100 fL [place] Platelet mean volume (Bld) [Entitic vol] 7.6 fL 6 - 12 fL [place] Platelets (Bld) [#/Vol] 326 10*3/uL [place] RBC (Bld) [#/Vol] 4.46 10*6/uL 4 - 5.2 m/uL [place] WBC (Bld) [#/Vol] NOT REPORTED per 100 WBC [place] WBC (Bld) [#/Vol] 13.2 10*3/uL [place] XR CHEST STANDARD (2 VW)on 0 [...] the costophrenic angles on the lateral view. [place] Jose Antonio, Mhpn Incoming Radiant Results From [employer] - 08/10/2019 9:50 AM EST EXAMINATION: TWO [...] radiographic follow-up is recommended to ensure clearance. [place] Cardiomegaly with mi ld vascular congestion noted concerning for mild interstitial pulmonary edema. This is new from the previous exam and continued radiographic follow-up is recommended to ensure clearance. [place] Basic Metabolic Profon 08-09 Anion gap [Moles/Vol] 11 mmol/L 9 - 17 mmol/L [place] Bun/Cre Ratio NOT REPORTED [place] Calcium [Mass/Vol] 7.6 mg/dL Low 8.6 - 10. 4 mg/dL [place] Chloride [Moles/Vol] 100 mmol/L 98 - 10 7 mmol/L [place] CO2 [Moles/Vol] 28 mmol/L 20 - 31 mmol/L [place] Creatinine [Mass/Vol] 0.86 mg/dL 0.5 - 0.9 mg/dL [place] GFR >60 >60 mL/min [place] GFR Non- >60 >60 mL/min [place] GFR/1.73 sq M predicted among non-blacks MDRD (S/P/Bld) [Vol rate/Area] NOT REPORTED [place] GFR/1.73 sq M predicted among non-blacks MDRD (S/P/Bld) [Vol rate/Area] [place] Comment on above: Average GFR for 60-6 9 years old: 85 mL/min/1.73sq m Chronic Kidney Disease: <60 mL/min/1.73sq m Kidney failure: <15 mL/min/1.73sq m eGFR calculated using average adult body mass. Additional eGFR calculator available at: http://www.[employer]/multiple_crcl_2012.htm Glucose [Mass/Vol] 140 mg/dL High 70 - 99 mg/dL [place] Interpretation and review of laboratory results Abnormal [place] Potassium [Moles/Vol] 4.5 mmol/L 3.7 - 5.3 mmol/L [place] Sodium [Moles/Vol] 139 mmol/L 135 - 144 mmol/L [place] Urea nitrogen [Mass/Vol] 29 mg/dL High 8 - 23 mg/dL [place] CBCon 08-09-2019 Erythrocyte distribution width (RBC) [Ratio] 13.6 % 11.5 - 14.9 % [place] Hematocrit (Bld) [Volume fraction] 40.1 % 36 - 46 % [place] Hemoglobin (Bld) [Mass/Vol] 13.5 g/dL 12 - 16 g/dL [place] Interpretation and review of laboratory results Abnormal [place] MCH (RBC) [Entitic mass] 31.2 pg 26 - 34 pg [place] MCHC (RBC) [Mass/Vol] 33.7 g/dL 31 - 3 7 g/dL [place] MCV (RBC) [Entitic vol] 92.6 fL 80 - 100 fL [place] Platelet mean volume (Bld) [Entitic vol] 7.3 fL 6 - 12 fL [place] Platelets (Bld) [#/Vol] 334 10*3/uL [place] RBC (Bld) [#/Vol] 4.34 10*6/uL 4 - 5.2 m/uL [place] WBC (Bld) [#/Vol] 15.9 10*3/uL [place] WBC (Bld) [#/Vol] NOT REPORTED per 100 WBC [place], [place] Fungal stainon 08-09-2019 Direct Exam NO FUNGAL ELEMENTS SEEN [place] Special Requests NOT REPORTED [place] Specimen Description .BRONCHIAL WASHINGS [place] Otheron 08-09-2019 Direct Exam Positive Abnormal [place] Respiratory Cultureon 2019 Culture NORMAL RESPIRATORY CHERYL HEAVY GROWTH [place] Direct Exam FEW NEUTROPHILS Ab[place] Interpretation and review of laboratory results Abnormal [place] Special Requests [place] REPORTED [place] Specimen Description .BRONCHIAL WASHINGS [place] Surgical Pathologyon 020 Surgical Pathology Report [id number] [place] [id number] SURGICAL PATHOLOGY REPORT Patient Name: CAMERON US MR#: [id number] Specimen #[id number] Final Diagnosis Parts A & B. Lungs, [...] examination performed and supports the diagnostic impression. [place] Basic Metabolic Profon 08-08 Anion gap [Moles/Vol] 8 mmol/L Low 9 - 17 mmol/L [place] Bun/Cre Ratio NOT REPORTED [place] Calcium [Mass/Vol] 8.0 mg/dL Low 8.6 - 10. 4 mg/dL [place] Chloride [Moles/Vol] 106 mmol/L 98 - 10 7 mmol/L [place] CO2 [Moles/Vol] 26 mmol/L 20 - 31 mmol/L [place] Creatinine [Mass/Vol] 0.75 mg/dL 0.5 - 0.9 mg/dL [place] GFR >60 >60 mL/min [place] GFR Non- >60 >60 mL/min [place] GFR/1.73 sq M predicted among non-blacks MDRD (S/P/Bld) [Vol rate/Area] NOT REPORTED [place] GFR/1.73 sq M predicted among non-blacks MDRD (S/P/Bld) [Vol rate/Area] [place] Comment on above: Average GFR for 60-6 9 years old: 85 mL/min/1.73sq m Chronic Kidney Disease: <60 mL/min/1.73sq m Kidney failure: <15 mL/min/1.73sq m eGFR calculated using average adult body mass. Additional eGFR calculator available at: http://www.HRsoft.Istpika/multiple_crcl_2012.htm Glucose [Mass/Vol] 154 mg/dL High 70 - 99 mg/dL [place] Interpretation and review of laboratory results Abnormal [place] Potassium [Moles/Vol] 5.1 mmol/L 3.7 - 5.3 mmol/L [place] Sodium [Moles/Vol] 140 mmol/L 135 - 144 mmol/L [place] Urea nitrogen [Mass/Vol] 32 mg/dL High 8 - 23 mg/dL [place] Body fluid cell counton 07-23 Appearance, Fluid TURBID [place] Color, Fluid PALE YELLOW [place] RBC, Fluid 294 /mm3 [place] Specimen type Nom (Spec) .BRONCHIAL WASHINGS [place] WBC, Fluid 113 /mm3 [place] CBCon 08-08-2019 Erythrocyte distribution width (RBC) [Ratio] 13.5 % 11.5 - 14.9 % [place] Hematocrit (Bld) [Volume fraction] 42.1 % 36 - 46 % [place] Hemoglobin (Bld) [Mass/Vol] 14.0 g/dL 12 - 16 g/dL [place] Interpretation and review of laboratory results Abnormal [place] MCH (RBC) [Entitic mass] 30.7 pg 26 - 34 pg [place] MCHC (RBC) [Mass/Vol] 33.2 g/dL 31 - 3 7 g/dL [place] MCV (RBC) [Entitic vol] 92.4 fL 80 - 100 fL [place] Platelet mean volume (Bld) [Entitic vol] 7.2 fL 6 - 12 fL [place] Platelets (Bld) [#/Vol] 355 10*3/uL [place] RBC (Bld) [#/Vol] 4.55 10*6/uL 4 - 5.2 m/uL [place] WBC (Bld) [#/Vol] 18.5 10*3/uL [place] WBC (Bld) [#/Vol] NOT REPORTED per 100 WBC [place] Differential, Body Fluidon 0 08-08-2019 Basos, Fluid 0 % [place] Eos, Fluid 7 % High 0 [place] Fluid Diff Comment TO BE REVIEWED BY PATHOLOGIST [place] Comment on above: Reviewed by patholog ist: Justin Chambers D.O. SLIDE REVIEWED. MACROPHAGES, NEUTROPHILS WITH RARE LYMPHOCYTES AND EOSINOPHIILS NOTED. Interpretation and review of laboratory results Abnormal [place] Lymphocytes, Body Fluid 7 % High 0 [place] Monocyte Count, Fluid 40 % High 0 [place] Neutrophil Count, Fluid 46 % High 0 [place] Other Cells, Fluid 0 % [place] Basic Metabolic Profon 08-07 Anion gap [Moles/Vol] 11 mmol/L 9 - 17 mmol/L [place] Bun/Cre Ratio NOT REPORTED [place] Calcium [Mass/Vol] 8.1 mg/dL Low 8.6 - 10. 4 mg/dL [place] Chloride [Moles/Vol] 105 mmol/L 98 - 10 7 mmol/L [place] CO2 [Moles/Vol] 24 mmol/L 20 - 31 mmol/L [place] Creatinine [Mass/Vol] 0.93 mg/dL High 0.5 - 0.9 mg/dL [place] GFR >60 >60 mL/min [place] GFR Non- >60 >60 mL/min [place] GFR/1.73 sq M predicted among non-blacks MDRD (S/P/Bld) [Vol rate/Area] NOT REPORTED [place] GFR/1.73 sq M predicted among non-blacks MDRD (S/P/Bld) [Vol rate/Area] [place] Comment on above: Average GFR for 60-6 9 years old: 85 mL/min/1.73sq m Chronic Kidney Disease: <60 mL/min/1.73sq m Kidney failure: <15 mL/min/1.73sq m eGFR calculated using average adult body mass. Additional eGFR calculator available at: http://www.[employer]/multiple_crcl_2012.htm Glucose [Mass/Vol] 172 mg/dL High 70 - 99 mg/dL [place] Interpretation and review of laboratory results Abnormal [place] Potassium [Moles/Vol] 5.1 mmol/L 3.7 - 5.3 mmol/L [place] Sodium [Moles/Vol] 140 mmol/L 135 - 144 mmol/L [place] Urea nitrogen [Mass/Vol] 26 mg/dL High 8 - 23 mg/dL [place] CBCon 08-07-2019 Erythrocyte distribution width (RBC) [Ratio] 13.8 % 11.5 - 14.9 % [place] Hematocrit (Bld) [Volume fraction] 42.8 % 36 - 46 % [place] Hemoglobin (Bld) [Mass/Vol] 14.1 g/dL 12 - 16 g/dL [place] Interpretation and review of laboratory results Abnormal [place] MCH (RBC) [Entitic mass] 30.8 pg 26 - 34 pg [place] MCHC (RBC) [Mass/Vol] 33.0 g/dL 31 - 3 7 g/dL [place] MCV (RBC) [Entitic vol] 93.1 fL 80 - 100 fL [place] Platelet mean volume (Bld) [Entitic vol] 7.5 fL 6 - 12 fL [place] Platelets (Bld) [#/Vol] 367 10*3/uL [place] RBC (Bld) [#/Vol] 4.59 10*6/uL 4 - 5.2 m/uL [place] WBC (Bld) [#/Vol] 20.0 10*3/uL [place] WBC (Bld) [#/Vol] NOT REPORTED per 100 WBC [place] Basic Metabolic Profon 08-06 Anion gap [Moles/Vol] 10 mmol/L 9 - 17 mmol/L [place] Bun/Cre Ratio NOT RE[facility]ED [facility] [place] Calcium [Mass/Vol] 8.2 mg/dL Low 8.6 - 10. 4 mg/dL [place] Chloride [Moles/Vol] 102 mmol/L 98 - 10 7 mmol/L [place] CO2 [Moles/Vol] 25 mmol/L 20 - 31 mmol/L [place] Creatinine [Mass/Vol] 0.75 mg/dL 0.5 - 0.9 mg/dL [place] GFR >60 >60 mL/min [place] GFR Non- >60 >60 mL/min [place] GFR/1.73 sq M predicted among non-blacks MDRD (S/P/Bld) [Vol rate/Area] [place] Comment on above: Average GFR for 60-6 9 years old: 85 mL/min/1.73sq m Chronic Kidney Disease: <60 mL/min/1.73sq m Kidney failure: <15 mL/min/1.73sq m eGFR calculated using average adult body mass. Additional eGFR calculator available at: http://www.S[employer]x Microsystems/multiple_crcl_2012.htm GFR/1.73 sq M predicted among non-blacks MDRD (S/P/Bld) [Vol rate/Area] NOT REPORTED [place] Glucose [Mass/Vol] 166 mg/dL High 70 - 99 mg/dL [place] Interpretation and review of laboratory results Abnormal [place] Potassium [Moles/Vol] 4.1 mmol/L 3.7 - 5.3 mmol/L [place] Sodium [Moles/Vol] 137 mmol/L 135 - 144 mmol/L [place] Urea nitrogen [Mass/Vol] 21 mg/dL 8 - 23 mg/dL [place] CBCon 08-06-2019 Erythrocyte distribution width (RBC) [Ratio] 13.5 % 11.5 - 14.9 % [place] Hematocrit (Bld) [Volume fraction] 43.2 % 36 - 46 % [place] Hemoglobin (Bld) [Mass/Vol] 14.5 g/dL 12 - 16 g/dL [place] MCH (RBC) [Entitic mass] 31.1 pg 26 - 34 pg [place] MCHC (RBC) [Mass/Vol] 33.5 g/dL 31 - 3 7 g/dL [place] MCV (RBC) [Entitic vol] 92.7 fL 80 - 100 fL [place] Platelet mean volume (Bld) [Entitic vol] 7.2 fL 6 - 12 fL [place] Platelets (Bld) [#/Vol] 366 10*3/uL [place] RBC (Bld) [#/Vol] 4.66 10*6/uL 4 - 5.2 m/uL [place] WBC (Bld) [#/Vol] NOT REPORTED per 100 WBC [place] WBC (Bld) [#/Vol] 7.9 10*3/uL [place] Basic Metabolic Panelon 07-23 Anion gap [Moles/Vol] 14 mmol/L 9 - 17 mmol/L [place] Bun/Cre Ratio NOT REPORTED [place] Calcium [Mass/Vol] 8.6 mg/dL 8.6 - 10. 4 mg/dL [place] Chloride [Moles/Vol] 102 mmol/L 98 - 10 7 mmol/L [place] CO2 [Moles/Vol] 25 mmol/L 20 - 31 mmol/L [place] Creatinine [Mass/Vol] 0.85 mg/dL 0.5 - 0.9 mg/dL [place] GFR >60 >60 mL/min [place] GFR Non- >60 >60 mL/min [place] GFR/1.73 sq M predicted among non-blacks MDRD (S/P/Bld) [Vol rate/Area] [place] Comment on above: Average GFR for 60-6 9 years old: 85 mL/min/1.73sq m Chronic Kidney Disease: <60 mL/min/1.73sq m Kidney failure: <15 mL/min/1.73sq m eGFR calculated using average adult body mass. Additional eGFR calculator available at: http://www.Silex [employer]systems/multiple_crcl_2012.htm GFR/1.73 sq M predicted among non-blacks MDRD (S/P/Bld) [Vol rate/Area] NOT REPORTED [place] Glucose [Mass/Vol] 97 mg/dL 70 - 99 mg/dL [place] Potassium [Moles/Vol] 4.5 mmol/L 3.7 - 5.3 mmol/L [place] Sodium [Moles/Vol] 141 mmol/L 135 - 144 mmol/L [place] Urea nitrogen [Mass/Vol] 19 mg/dL 8 - 23 mg/dL [place] CBC Auto Differentialon 07-23 Basophils (Bld) [#/Vol] 0.10 10*3/uL [place] Basophils/100 WBC (Bld) 1 % 0 - 2 % [place] Differential Type NOT REPORTED [place] Eosinophils (Bld) [#/Vol] 0.80 10*3/uL [place] Eosinophils/100 WBC (Bld) 9 % High 0 - 4 % [place] Erythrocyte distribution width (RBC) [Ratio] 13.2 % 11.5 - 14.9 % [place] Hematocrit (Bld) [Volume fraction] 46.8 % High 36 - 46 % [place] Hemoglobin (Bld) [Mass/Vol] 15.6 g/dL 12 - 16 g/dL [place] Interpretation and review of laboratory results Abnormal [place] Lymphocytes (Bld) [#/Vol] 2.70 10*3/uL [place] Lymphocytes/100 WBC (Bld) 30 % 24 - 44 % [place] MCH (RBC) [Entitic mass] 31.1 pg 26 - 34 pg [place] MCHC (RBC) [Mass/Vol] 33.4 g/dL 31 - 3 7 g/dL [place] MCV (RBC) [Entitic vol] 93.1 fL 80 - 100 fL [place] Monocytes (Bld) [#/Vol] 0.70 10*3/uL [place] Monocytes/100 WBC (Bld) 8 % High 1 - 7 % [place] Platelet mean volume (Bld) [Entitic vol] 7.0 fL 6 - 12 fL [place] Platelets (Bld) [#/Vol] NOT REPORTED [place] Platelets (Bld) [#/Vol] 396 10*3/uL [place] RBC (Bld) [#/Vol] 5.02 10*6/uL 4 - 5.2 m/uL [place] RBC morphology finding Nom (Bld) NOT REPORTED [place] Segmented neutrophils/100 WBC (Bld) 52 % 36 - 66 % [place] Segs Absolute 4.80 [place] WBC (Bld) [#/Vol] NOT REPORTED per 100 WBC [place] WBC (Bld) [#/Vol] 9.2 10*3/uL [place] WBC Morphology NOT REPORTED [place] D-Dimer, Quantitativeon 07-23 D-Dimer, Quant <0.27 [place], [place] Comment on above: When combined with [...] 08-05-2019 Immature granulocytes (Bld) [#/Vol] NOT REPORTED [place] Procalcitoninon 08-05-2019 Procalcitonin 0.06 ng/mL <0.09 [place] Comment on above: Suspected Sepsis: 0.09-0.49 [...] entered into the Change in Procalcitonin Calculator (www.jrllml-igo-rksarjdzyz.com) to determine the patient's Mortality Risk Prognosis XR CHEST PORTABLEon 08-05-19 20 Jose Antonio, Mhpn Incoming Radiant Results From Purchasing Platform/Intrakr - 08/05/2019 3:07 PM EST EXAMINATION: ONE [...] identified. IMPRESSION: No acute airspace disease identified. [place] EXAMINATION: ONE XRA Y VIEW OF THE CHEST 08/05/2019 2:02 pm COMPARISON: None. HISTORY: ORDERING SYSTEM PROVIDED HISTORY: Chest Pain TECHNOLOGIST PROVIDED HISTORY: Chest Pain Reason for Exam: CHEST PAIN Acuity: Unknown Type of Exam: Unknown FINDINGS: Mild cardiac silhouette enlargement. Generalized interstitial prominence without consolidation, pneumothorax or evidence for edema. No effusion. No acute osseous abnormality identified. [place] No acute airspace disease identified. [place] Glucose, Fastingon 9 Glucose [Mass/Vol] 93 mg/dL Normal 70-99 [facility] Comment on above: Performed By: #### CHUCK CLAY, TSH #### [facility] [employer] [address] [place] [id number] Golf Course Designer: Beau Troncoso MD Glucose [Mass/Vol] 93 mg/dL 70 - 99 mg/dL [place] Lipid Prof, Fastingon 2018 Cholesterol [Mass/Vol] 275 mg/dL High <200 [facility] Comment on above: Result Comment: Cholesterol Guidelines: <200 Desirable 200-240 Borderline >240 Undesirable Performed By: #### CHUCK CLAY, TSH #### [facility] [employer] [address] [place] [address] [id number] [employer] Course Designer: Beau Troncoso MD Cholesterol in HDL [Mass/Vol] 48 mg/dL Normal >40 [facility] Comment on above: Result Comment: HDL Guidelines: <40 Undesirable 40-59 Borderline >59 Desirable Performed By: #### Ross GARCIA LIPRF, TSH #### [facility] [employer] [address] [place] [address] [phone] [employer] Course Designer: Beau Troncoso MD Cholesterol in LDL [Mass/Vol] 196 mg/dL High 0-130 [facility] Comment on above: Result Comment: LDL Guidelines: <100 Desirable 100-129 Near to/above Desirable 130-159 Borderline >159 Undesirable Direct (measured) LDL and calculated LDL are not interchangeable tests. Performed By: #### G JOSE LIPRF, TSH #### [facility] [address] [place] [address] [id number] [employer] Course Designer: Beau Troncoso MD Cholesterol.total/Chol esterol in HDL [Mass ratio] 5.7 {ratio} High <5 [facility] Comment on above: Performed By: #### G JOSE LIPRF, TSH #### [facility] [address] [place] [address] [id number] [employer] Course Designer: Beau Troncoso MD Triglyceride,Fasting 153 mg/dL High <150 [facility] Comment on above: Result Comment: Triglyceride Guidelines: <150 Desirable 150-199 Borderline 200-499 High >499 Very high Based on AHA Guidelines for fasting triglyceride, March 2012. Performed By: #### Ross GARCIA, LIPRF, TSH #### [facility] [employer] [address] [place] [id number] Golf Course Designer: Beau Troncoso MD Cholesterol in VLDL [Mass/Vol] NOT REPORTED Normal 1-30 [facility] Comment on above: Performed By: #### CHUCK CLAY, TSH #### [facility] [employer] [address] [place] [address] [phone] [employer] Course Designer: Beau Troncoso MD Lipid, Fastingon 05-11-2019 Cholesterol [Mass/Vol] 275 mg/dL High <200 [place] Comment on above: Cholesterol Guidelines: <200 Desirable 200-240 Borderline >240 Undesirable Cholesterol in HDL [Mass/Vol] 48 mg/dL >40 [place] Comment on above: HDL Guidelines: <40 Undesirable 40-59 Borderline >59 Desirable Cholesterol in LDL [Mass/Vol] 196 mg/dL High 0 - 130 mg/dL [place] Comment on above: LDL Guidelines: <100 Desirable 100-129 Near to/above Desirable 130-159 Borderline >159 Undesirable Direct (measured) LDL and calculated LDL are not interchangeable tests. Cholesterol in VLDL [Mass/Vol] NOT REPORTED High 1 - 30 mg/dL [place] Cholesterol.total/Chol esterol in HDL [Mass ratio] 5.7 {ratio} High <5 [place] Interpretation and review of laboratory results Abnormal [place] Triglyceride, Fasting 153 mg/dL High <150 [place] Comment on above: Triglyceride Guidelines: <150 Desirable 150-199 Borderline 200-499 High >499 Very high Based on AHA Guidelines for fasting triglyceride, March 2012. TSHon 05-11-2019 Interpretation and review of laboratory results Abnormal [place] TSH Qn 25.72 m[IU]/L [place] Thyroid Stim. Horm.on 2018 TSH Qn 25.72 m[IU]/L High 0.30-5.00 [facility] Comment on above: Performed By: #### G LUF, LIPRF, TSH #### [facility] [address] [place], [place] [id number] Golf Course Designer: Beau Troncoso MD Vital Signs Date Time Vital Sign Value Performing Clinician Facility 10-18-2024 16:29-0400 Body height 172.7 cm [employer] Work Phone: [facility] [employer] [facility] 10-18-2024 16:29-0400 Body mass index (BMI) [Ratio] 38.63 kg/m2 [employer] DO Work Phone: [facility] [employer] [facility] 10-18-2024 16:29-0400 Body temperature 98.01 [degF] [employer] DO Work Phone: [facility] [employer] [facility] 10-18-2024 16:29-0400 Body weight 115.21 kg [employer] DO Work Phone: [facility] 10-18-2024 16:29-0400 Diastolic blood pressure 64 mm[Hg] [employer] DO Work Phone: [facility] 10-18-2024 16:29-0400 Heart rate 65 /min [employer] Work Phone: [facility] 10-18-2024 16:29-0400 Respiratory rate 24 /min Louie Furlong DO Work Phone: [facility] [employer] 10-18-2024 16:29-0400 SaO2% (BldA) [Mass fraction] 98 % Louie Furlong DO Work Phone: [facility] [employer] 10-18-2024 16:29-0400 Systolic blood pressure 128 mm[Hg] Louie Furlong DO Work Phone: [facility] [employer] [facility] 09-01-2024 11:16-0400 Body height 172.7 cm Louie Furlong DO Work Phone: [facility] [employer] 09-01-2024 11:16-0400 Body mass index (BMI) [Ratio] 38.38 kg/m2 Louie Furlong DO Work Phone: [facility] [employer] 09-01-2024 11:16-0400 Body temperature 97.5 [degF] Louie Furlong DO Work Phone: [facility] [employer] 09-01-2024 11:16-0400 Body weight 114.49 kg Louie Furlong DO Work Phone: [facility] [employer] 09-01-2024 11:16-0400 Diastolic blood pressure 68 mm[Hg] Louie Furlong DO Work Phone: [facility] [employer] 09-01-2024 11:16-0400 Heart rate 85 /min Louie Furlong DO Work Phone: [facility] [employer] 09-01-2024 11:16-0400 Respiratory rate 20 /min Louie Furlong DO Work Phone: [facility] [employer] 09-01-2024 11:16-0400 SaO2% (BldA) [Mass fraction] 90 % Louie Furlong DO Work Phone: [facility] [employer] 09-01-2024 11:16-0400 Systolic blood pressure 102 mm[Hg] [facility]long [facility] 11-22-2020 12:40-0400 Respiratory rate 29 /min Heena John MD [employer] Phone: 11-22-2020 12:40-0400 SaO2% (BldA) [Mass fraction] 100 % Heena John MD [employer] Phone: 11-22-2020 12:30-0400 Diastolic blood pressure 58 mm[Hg] Heena John MD [employer] Phone: 11-22-2020 12:30-0400 Heart rate 85 /min Heena John MD [employer] Phone: 11-22-2020 12:30-0400 Systolic blood pressure 108 mm[Hg] Heena John MD [employer] Phone: 11-22-2020 12:09-0400 Body height 175.3 cm Heena John MD [employer] Phone: 11-22-2020 12:09-0400 Body mass index (BMI) [Ratio] 33.97 kg/m2 Heena John MD [employer] Phone: 11-22-2020 12:09-0400 Body temperature 97.3 [degF] Heena John MD [employer] Phone: 11-22-2020 12:09-0400 Body weight 104.33 kg Heena John MD [employer] Phone: 11-02-2019 13:15-0400 BP Diastolic 61 mm[Hg] [place] 11-02-2019 13:15-0400 BP Systolic 118 mm[Hg] [place] , [place] 11-02-2019 13:15-0400 Pulse (Heart Rate) 87 /min [place] 11-02-2019 13:15-0400 Pulse Oximetry 97 % [place] [employer] [place] 11-02-2019 13:15-0400 Respiratory Rate 17 /min [facility] [place] 11-02-2019 10:12-0400 BMI (Body Mass Index) 29.53 kg/m2 Warren Holm [facility], [place] 11-02-2019 10:12-0400 Body Temperature 98.91 [degF] [facility] [place] 11-02-2019 10:12-0400 Body weight 90.72 kg [facility] [place] 10-08-2019 11:51-0400 Pulse [facility] 98 % [facility] [place] 10-08-2019 11:51-0400 Respiratory Rate 12 /[facility] [place] 10-08-2019 08:42-0400 Body Temperature 98.1 [degF] Forest [facility], [place] 10-08-2019 08:42-0400 BP Diastolic 70 mm[Hg] [facility] , [place] 10-08-2019 08:42-0400 BP Systolic 137 mm[Hg] [facility] , [place] 10-08-2019 08:42-0400 Pulse (Heart Rate) 99 /min [facility], [place] 10-08-2019 06:30-0400 BMI (Body Mass Index) 32.43 kg/m2 Forest Childs [facility], [place] 10-08-2019 06:30-0400 Body weight 99.6 kg [facility] , [place] 10-05-2019 18:01-0400 Height 175.3 cm [facility] , [place] 09-15-2019 18:31-0400 Body Temperature 98.91 [degF] [facility], [place] 09-15-2019 18:31-0400 BP Diastolic 63 mm[Hg] [facility] , [place] 09-15-2019 18:31-0400 BP Systolic 133 mm[Hg] [facility] , [place] 09-15-2019 18:31-0400 Pulse (Heart Rate) 101 /min [facility], [place] 09-15-2019 18:31-0400 Pulse Oximetry 93 % Levy [facility] [place] , [place] 09-15-2019 18:31-0400 Respiratory Rate 18 /min Levy Felix [facility] [place] 09-15-2019 17:26-0400 BMI (Body Mass Index) 32.19 kg/m2 Levy [facility] [place], [place] 09-15-2019 17:26-0400 Body weight 98.[address] [facility] [place] , [place] 08-29-2019 15:11-0400 Pulse Oximetry 95 % Jacob [facility] , [place] 08-29-2019 14:42-0400 Body Temperature 98.29 [degF] [facility] [place] 08-29-2019 14:42-0400 BP Diastolic 65 mm[Hg] [facility] [place] , [place] 08-29-2019 14:42-0400 BP Systolic 133 mm[Hg] Jacob [facility] [place] , [place] 08-29-2019 14:42-0400 Pulse (Heart Rate) 84 /min Jacob [facility], [place] 08-29-2019 14:42-0400 Respiratory Rate 16 /min Jacob [facility] , [place] 08-29-2019 06:34-0400 BMI (Body Mass Index) 32.17 kg/m2 Jacob Granado [facility], [place] 08-29-2019 06:34-0400 Body weight 98.8 kg Jacob [facility] , [place] 08-25-2019 15:11-0500 Height 175.3 cm [facility] [place] 08-10-2019 14:26-0500 Body Temperature 97.2 [degF] Heena John [facility] [place] 08-10-2019 14:26-0500 BP Diastolic 81 mm[Hg] Heena John [facility] [place] , [place] 08-10-2019 14:26-0500 BP Systolic 159 mm[Hg] Heena John [facility] [place] , [place] 08-10-2019 14:26-0500 Pulse (Heart Rate) 86 /min Heena John [facility] [place], [place] 08-10-2019 14:26-0500 Pulse Oximetry 94 % Heena Holm [facility] , [place] 08-10-2019 14:26-0500 Respiratory Rate 16 /min Heena Holm [facility], [place] 08-07-2019 06:00-0500 BMI (Body Mass Index) 31.58 kg/m2 Heena Holm [facility], [place] 08-07-2019 06:00-0500 Body weight 97 kg Heena John [facility] , [place] 08-05-2019 16:57-0500 Height 175.3 cm Heena Holm [facility] , [place] Encounters Encounter Date Encounter Type Care Provider Facility Start: 10-18-2024 End: 10-18-2024 Office outpatient visit 25 minutes Louie Paul DO Work Phone: [facility] Comment on above: COPD exacerbation ([facility]) (Primary Dx); Urinary frequency; Chronic obstructive pulmonary disease, unspecified COPD type ([facility] Vagina, candidiasis Start: 10-18-2024 End: 10-18-2024 ambulatory [facility] Start: 10-03-2024 End: 10-03-2024 Orders Only Louie Paul DO Work Phone: [facility] Start: 09-14-2024 End: 09-14-2024 Orders Only Louie Paul DO Work Phone: [facility] Comment on above: Paroxysmal atrial fi brillation ([facility]) Start: 09-05-2024 End: 09-05-2024 Orders Only Louie Paul DO Work Phone: [facility] Start: 09-01-2024 End: 09-01-2024 ambulatory [facility] Start: 09-01-2024 End: 09-01-2024 Office outpatient visit 25 minutes Louie Mabryng DO Work Phone: [facility] Comment on above: Mixed hyperlipidemia (Primary Dx); Paroxysmal atrial fibrillation ([facility]); Chronic obstructive pulmonary disease, unspecified COPD type ([facility]); Gastroesophageal reflux disease, unspecified whether esophagitis present; Sleep apnea, unspecified type; Class 2 severe obesity due to excess calories with serious comorbidity and body mass index (BMI) of 38.0 to 38.9 in adult ([facility]) Start: 09-01-2024 End: 09-01-2024 ambulatory [facility] Start: 08-03-2024 End: 08-04-2024 Refill Mohinder L Jody 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 Work Phone: [facility] Comment on above: Paroxysmal atrial fi brillation [place] Start: 07-13-2024 End: 07-13-2024 Refill [facility] DO Work Phone: [facility] Comment on above: Fibromyalgia Start: 06-18-2024 End: 06-20-2024 Refill Mohinder L Jody [employer] 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 Work Phone: [facility] Comment on above: Paroxysmal atrial fi brillation ([facility] Start: 06-13-2024 End: 06-13-2024 ambulatory [facility] Start: 06-01-2024 End: 06-09-2024 Telephone encounter Catalina Reynolds RN [facility] Comment on above: Transition Of Care Start: 05-28-2024 End: 05-30-2024 ambulatory [facility] Start: 05-11-2024 End: 05-11-2024 ambulatory [facility] Start: 03-31-2024 End: 03-31-2024 ambulatory [facility] Start: 03-23-2024 End: 03-23-2024 ambulatory [facility] Start: 02-26-2024 End: 02-26-2024 ambulatory [facility] Start: 02-24-2024 End: 02-24-2024 ambulatory [facility] Start: 02-17-2024 End: 02-17-2024 ambulatory [facility] Start: 02-01-2024 End: 02-01-2024 ambulatory [facility] Start: 02-01-2024 End: 02-01-2024 ambulatory Belle Monet MD Facility: Dat Start: 01-15-2024 End: 01-15-2024 ambulatory PAPI Rodríguez [facility] Start: 01-15-2024 End: 01-15-2024 Emergency department patient visit PAPI Rodríguez [facility] Start: 12-22-2023 End: 12-22-2023 ambulatory [facility] Start: 12-22-2023 End: 12-22-2023 ambulatory [facility] Start: 12-07-2023 End: 12-07-2023 ambulatory Belle Monet MD Facility: Dat Start: 11-23-2023 End: 11-23-2023 ambulatory [facility] Start: 10-26-2023 End: 10-26-2023 ambulatory Belle Monet MD Facility:PM Dat Start: 08-31-2023 End: 08-31-2023 ambulatory Belle Monet MD Facility:PM Dat Start: 08-10-2023 End: 08-10-2023 ambulatory Belle Monet MD Facility:PM Dat Start: 08-03-2023 End: 08-03-2023 ambulatory Belle Monet MD Facility:PM Dat Start: 12-16-2021 End: 12-17-[address] LOUIE [...] 11-22-2020 Emergency department patient visit CADEN [facility] Start: 11-22-2020 End: 11-22-2020 Emergency department patient visit Heena John MD [facility] ED Comment on above: COPD exacerbation (H CC) (Primary Dx) Start: 04-18-2020 End: 04-21-2020 ambulatory [facility] Start: 04-16-2020 End: 04-17-2020 Patient encounter procedure [facility] Start: 04-16-2020 End: 04-16-2020 Subsequent hospital visit by physician [facility] Comment on above: Dizziness; Polydipsia Start: 03-23-2020 End: 03-26-2020 ambulatory ENESI O CORA [facility] Start: 03-23-2020 End: 03-25-2020 Subsequent hospital visit by physician [email or web address] Mri Rm [facility] MRI Comment on above: Osteoarthritis of ri t acromioclavicular joint Start: 11-02-2019 End: 11-02-2019 Emergency department patient visit Warren Olivas Work Phone: [facility] ED Comment on above: COPD exacerbation (H CC) (Primary Dx) Start: 10-05-2019 End: 10-08-2019 Evaluation and management of inpatient Forest Childs Work Phone: [facility] Comment on above: COPD exacerbation (H CC) (Primary Dx); Acute respiratory failure with hypoxia (HCC) Start: 09-15-2019 End: 09-15-2019 Emergency department patient visit Levy Felix Work Phone: [facility] ED Comment on above: Cough (Primary Dx); Abnormal CXR; Viral URI Start: 08-25-2019 End: 08-29-2019 Evaluation and management of inpatient Jacob Granado Work Phone: [facility] Med Surg Comment on above: COPD exacerbation (H CC) (Primary Dx); Influenza with respiratory manifestation other than pneumonia; COPD with acute exacerbation (HCC) Start: 08-05-2019 End: 08-10-2019 Evaluation and management of inpatient Heena John [facility] Med Surg Comment on above: COPD exacerbation (H CC) (Primary Dx); Cough; Moderate persistent asthma with acute exacerbation Start: 05-11-2019 End: 05-12-2019 Patient encounter procedure NAJMA KEN [facility] Start: 05-11-2019 End: 05-11-2019 Subsequent hospital visit by physician Najma ALVAREZ [facility] Comment on above: Encounter for screen ing for diabetes mellitus; Screening for hyperlipidemia Procedures Date Procedure Procedure Detail Performing Clinician Start: 10-18-2024 POCT INFLUENZA A/INF LUENZA B/SARS-COV-2 VERITOR Louie Paul DO Work Phone: Start: 10-18-2024 Urnls dip stick/tabl et rgnt non-auto w/o micrscp Louie Palu DO Work Phone: Start: 10-18-2024 Adult depression scr eening assessment Louie Paul DO Work Phone: Start: 06-13-2024 Follow-up visit Follow-up LOUIE PROABHI Start: 06-13-2024 Adult depression scr eening assessment Mohinder Vera [employer] 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 Work Phone: Start: 05-28-2024 Adult depression scr eening assessment Catalina Reynolds RN Start: 11-22-2020 Radiologic exam ches t single view Heena John MD Start: 11-22-2020 Basic metabolic pane l calcium total Heena John MD Start: 11-22-2020 COVID-19, RAPID Heena John MD Start: 04-18-2020 Ct head/brain w/o co ntrast material JAMESPRASAD JESUS MANUEL Start: 04-16-2020 Assay of thyroid stimulating hormone tsh SHIVAPRASAD JESUS MANUEL Start: 04-16-2020 Blood count complete automated SHIVAPRASAD JESUS MANUEL Start: 04-16-2020 Comprehensive metabo lic panel SHIVAPRASAD JESUS MANUEL Start: 04-16-2020 Hemoglobin glycosylated a1c RACHELVAPRASAD JESUS MANUEL Start: 04-16-2020 Assay of thyroid stimulating hormone tsh Jamesprasad K Jesus Manuel Work Phone: Start: 04-16-2020 Blood count complete automated Shivaprasad K Jesus Manuel Work Phone: Start: 04-16-2020 Comprehensive metabo lic panel Rachelvaprasad K Jesus Manuel Work Phone: Start: 04-16-2020 Hemoglobin glycosylated a1c Jamesprasad K Jesus Manuel Work Phone: Start: 03-23-2020 [...] Phone: Start: 11-02-2019 C-reactive protein Anton s Broschak Work Phone: Start: 11-02-2019 Comprehensive metabo lic panel Warren Olivas Work Phone: Start: 11-02-2019 Fibrin dgradj produc ts d-dimer quantitative Warren Olivas Work Phone: Start: 11-02-2019 Lactate dehydrogenase ldh Warren Olivas Work Phone: Start: 10-06-2019 Assay of free thyroxine Niall Scanlon Work Phone: Start: 10-06-2019 Assay of thyroid stimulating hormone tsh Niall Vorahammad Work Phone: Start: 10-06-2019 Blood count complete auto&auto difrntl wbc Niall Vorahammad Work Phone: Start: 10-06-2019 Comprehensive metabo lic panel Niall Scanlon Work Phone: Start: 10-06-2019 B.A.L. CELL COUNT [employer] Work Phone: Start: 10-06-2019 CELL COUNT W DIFF, BAL [employer] Work Phone: Start: 10-06-2019 Smr prim src fluorescent&/afs bct fngi parasit [employer] Work Phone: Start: 10-06-2019 Virus centrifuge enh ncd id imfluor stain ea [employer] Work Phone: Start: 10-06-2019 Virus tiss cul inocu lation cytopathic effect [employer] Work Phone: Start: 10-06-2019 End: 10-06-2019 Brnchsc w/brncl alveolar lavage [employer] Work Phone: Start: 10-05-2019 Radiologic exam ches t single view [employer] Work Phone: Start: 10-05-2019 BASIC METABOLIC PANE L W/ REFLEX TO MG FOR LOW K [employer] Work Phone: Start: 10-05-2019 Blood count complete auto&auto difrntl wbc [employer] Work Phone: Start: 09-15-2019 Radiologic exam ches t single view Levy Hermosillou Work Phone: Start: 08-29-2019 Blood count complete [...] Phone: Start: 08-25-2019 Assay of troponin quantitative Jacbo Granado Work Phone: Start: 08-25-2019 BASIC METABOLIC [...] 05-11-2019 Assay of thyroid stimulating hormone tsh RACHELMYLESSONI JESUS MANUEL Start: 05-11-[address] gtt 3 specimens SHIVAPRAD JESUS MANUEL Start: 05-11-2019 Lipid panel RACHELVAPRASA D JESUS MANUEL Start: 05-11-2019 Assay of thyroid stimulating hormone tsh Fercesar Michelle RamosJesus Manuel Work Phone: Start: 05-11-[address] gtt 3 specimens Rachelvaprad K Jesus Manuel Work Phone: Start: 05-11-2019 Lipid panel Rachelvaprasa d K Jesus Manuel Work Phone: Plan of Treatment Date Care Activity Detail Author Start: 02-25-2027 Screening for malignant neoplasm of colon Colon Cancer Screening 3 Year Cologuard [facility] [employer] [facility] Start: 10-18-2025 Depression Screening Depression Screening [facility] [employer] [facility] Start: 10-18-2025 Fall Risk Screening Fall Risk Screening [facility] [employer] [facility] Start: 10-18-2025 Tobacco Screening Tobacco Screening [facility] [employer] [facility] Start: 09-01-2025 Adult BMI Screening Adult BMI Screening [facility] [employer] [facility] Start: 09-01-2025 Tobacco Screening Tobacco Screening [facility] Start: 08-31-2025 COVID-19 Vaccine (1) COVID-19 Vaccine (1) [employer] Phone: Comment on above: Postponed from 1971 (Patient Refus ed) Start: 08-31-2025 Influenza vaccination Flu vaccine (Season Ended) [employer] Phone: Comment on above: Postponed from 02/20/2021 (Patient Refus ed) Start: 06-22-2025 DTaP,Tdap and Td Vaccines (1 - Tdap) DTaP,Tdap and Td Vaccines (1 - Tdap) [facility] [employer] [facility] Comment on above: Postponed from 1978 (Patient Refus ed) Start: 06-13-2025 Adult BMI Screening Adult [facility]ening [facility] Start: 06-13-2025 Depression Screening [facility] Start: 06-13-2025 Fall Risk Screening Fall Risk Screening [facility] Start: 06-13-2025 Tobacco Screening Tobacco Screening [facility] Start: 05-29-2025 Adult BMI Screening Adult [facility] Screening [facility] Start: 05-29-2025 Tobacco Screening Tobacco Screening [facility] Start: 05-28-2025 Depression Screening Depression Scre[facility] Start: 03-31-2025 Adult BMI Follow Up Plan Adult BMI Follow Up Plan [facility] Start: 03-31-2025 Fall Risk Screening Fall Risk Screening [facility] Start: 03-21-2025 End: 03-21-2025 Patient encounter procedure 03/21/2025 10:20 AM EDT Office Visit [facility] [address] Margaret [place] [address] [facility] Start: 02-20-2025 Influenza vaccination Influenza Vaccine [facility] Start: 09-19-2024 Influenza vaccination Influenza Vaccine [facility] Comment on above: Postponed from 02/21/2024 (Patient Refus ed) Start: 09-05-2024 End: 09-05-2024 Patient encounter procedure 09/05/2024 11:30 AM EDT Appointment [facility] - Cardiovascular [address] [facility] [facility] [place] [address] Louie Paul DO [address], [place] [address] [facility] - Cardiovascular Start: 09-01-2024 End: 09-01-2025 Event monitor Event monitor Cardiac Services Routine Paroxysmal atrial fibrillation ([facility]) Expected: 09/01/2024, Expires: 09/01/2025 [facility] Comment on above: Expected: 09/01/2024, Expires: Start: 08-08-2024 Pneumococcal 0-64 years Vaccine (2 of 2) Pneumococcal 0-64 years Vaccine (2 of 2) [employer] Work Phone: Start: 08-01-2024 End: 08-01-2024 Patient encounter procedure 08/01/2024 10:30 AM EST Office Visit [facility] [address] [place] [address] Louie Paul, [address], [facility] [place] [address] [facility] Start: 06-27-2024 End: 06-27-2024 Patient encounter procedure 06/27/2024 2:45 PM EST Office Visit [facility] Adult Endocrinology, A Department of [facility] [address] [id number] Celia Cowan MD [address] [address] [facility] Adult Endocrinology, A Department of [facility] Start: 06-13-2024 End: 06-13-2024 Patient encounter procedure 06/13/2024 3:30 PM EST Office Visit [facility] [address] [place] [phone] Louie Paul DO [address], [place] [address] [facility] Start: 05-11-2024 Lipid panel Lipid screen [place], [place] Start: 05-11-2024 Lipid screen Lipid screen [place] Start: 02-21-2024 Influenza vaccination Influenza Vaccine [facility] Start: 05-11-2022 Diabetes screen Diabetes screen [place] Start: 10-17-2021 Shingles Vaccine (1 of 2) Shingles Vaccine (1 of 2) [facility]: Comment on above: Postponed from 2009 (Patient Refus ed) Start: 04-16-2021 Hemoglobin A1c measurement A1C test (Diabetic or Prediabetic) [facility] Phone: Start: 04-16-2021 Thyroid stimulating hormone measurement TSH testing [facility] Phone: Start: 12-24-2020 DTaP/Tdap/Td vaccine (1 - Tdap) DTaP/Tdap/Td vaccine (1 - Tdap) [facility] Phone: Comment on above: Postponed from 1978 (Patient Refus ed) Start: 10-05-2020 TSH Qn TSH testing [place], [place] Start: 10-05-2020 TSH testing [place]SH [place] Start: 05-11-2020 TSH testing TSH testing [place] Start: 05-10-2020 End: 05-10-2020 Office Visit 05/10/2020 Office Visit Primary Care Najma Ken MD [address] [place], [place] [id number] [facility] Start: 05-05-2020 DTaP/Tdap/Td vaccine (1 - Tdap) DTaP/Tdap/Td vaccine (1 - Tdap) [place] Comment on above: Postponed from 1978 (Patient Refus ed) Postponed from 03/05 (Patient Refused) Start: 05-05-2020 Hepatitis C screen Hepatitis C screen [place] Comment on above: Postponed from 1959 (Patient Refus ed) Start: 05-05-2020 Hepatitis C screening Hepatitis C screen [place] Comment on above: Postponed from 1959 (Patient Refus ed) Start: 05-05-2020 HIV screen HIV screen [place] Comment on above: Postponed from 1974 (Patient Refus ed) Start: 05-05-2020 HIV screening HIV screen [place] Comment on above: Postponed from 1974 (Patient Refus ed) Start: 04-18-2020 End: 04-18-2020 Appointment 04/18/2020 Appointment Radiology [facility] CT Scan Start: 02-21-2020 Influenza vaccination [place] Start: 08-04-2019 End: 08-04-2019 Office Visit 08/04/2019 Office Visit Primary Care Najma Ken MD [address] [place] [address] [phone] [facility] Start: 02-20-2019 Influenza vaccination Flu vaccine (#1) [place], [place] Start: [address] lung screening Low dose CT lung screening [place] Start: 2009 Administration of varicella zoster vaccine Zoster (Shingles) Vaccine (1 of 2) [facility] Start: 2009 Breast cancer screen Breast cancer screen [place], [place] Start: 2009 Colon cancer screen colonoscopy Colon cancer screen colonoscopy [place] Start: 2009 Screening for malignant neoplasm of breast Breast cancer screen [place] Start: 2009 Screening for malignant neoplasm of colon Colon cancer screen colonoscopy [place] Start: 2009 Shingles Vaccine (1 of 2) Shingles Vaccine (1 of 2) [place] Start: 1999 Diabetes screen Diabetes screen [place] Start: 1999 Lipid screen Lipid [place] Start: 1999 Screening for malignant neoplasm of breast Mammogram [facility] Start: 1978 DTaP,Tdap and Td Vaccines (1 - Tdap) DTaP,Tdap and Td Vaccines (1 - Tdap) [facility] Start: 1965 Pneumococcal 0-64 years Vaccine (1 of 1 - PPSV23) Pneumococcal 0-64 years Vaccine (1 of 1 - PPSV23) [place], [place] Start: 1959 Medicare Annual Wellness Visit Medicare Annual Wellness Visit [facility] Start: 1959 Tobacco Counseling Tobacco Counseling [facility] Start: 1959 TSH testing TSH testing [place], [place] Acapella Acapella Respira tory Care Routine Daily until discontinued starting 08/06/2019 [place] Comment on above: Daily until discontinued starting [address] [address] Comment on above: Release Upon Ordering for 1 Occurrences starting 10/06/2019 ONE TIME for 1 Occur rences starting 08/08/2019 Basic Metabolic Prof Basic Metab olic Prof Lab Routine Daily until discontinued starting 08/06/2019, 5 completed [place] Comment on above: Daily until discontinued starting 2019, 5 completed Body fluid cell count [place] Comment on above: Release Upon Ordering for 1 Occurrences starting 10/06/2019 ONE TIME for 1 Occur rences starting 08/08/2019 CBC CBC Lab Routine Daily until discontinued starting 08/06/2019, 5 completed [place] Comment on above: Daily until discontinued starting 2019, 5 completed End: 09-01-2019 CBC auto differential CBC auto differential Lab Routine Daily for 5 Occurrences starting 08/28/2019 until 09/01/2019, 2 completed [place] Comment on above: Daily for 5 Occurrences starting 020 until 09/01/2019, 2 completed End: 09-01-2025 Comprehensive metabolic 2000 panel - Serum or Plasma Comprehensive metabolic panel Lab Routine Mixed hyperlipidemia 1 Occurrences starting 09/01/2024 until 09/01/2025 [facility] Comment on above: 1 Occurrences starting 09/01/2024 until 09/01/2025 End: 09-01-2019 Comprehensive Metabolic Panel w/ Reflex to MG Comprehensive Metabolic Panel w/ Reflex to MG Lab Routine Daily for 5 Occurrences starting 08/28/2019 until 09/01/2019, 2 completed [facility] [place] Comment on above: Daily for 5 Occurrences starting 020 until 09/01/2019, 2 completed Culture with Smear, Acid Fast Bacillius [place] Comment on above: Release Upon Ordering for 1 Occurrences starting 10/06/2019 ONE TIME for 1 Occur rences starting 08/08/2019 Culture, Fungus [place] Comment on above: Release Upon Ordering for 1 Occurrences starting 10/06/2019 ONE TIME for 1 Occur rences starting 08/08/2019 End: 10-06-2019 Culture, Fungus Culture, Fungus Microbiology Routine Once for 1 Occurrences starting 10/06/2019 until 10/06/2019 [place] Comment on above: Once for 1 Occurrences starting 10/06/19 20 until 10/06/2019 Culture, Legionella [facility] [place] Comment on above: Release Upon Ordering for 1 Occurrences starting 10/06/2019 End: 10-06-2019 Culture, Legionella Culture, Legionella Microbiology Routine Once for 1 Occurrences starting 10/06/2019 until 10/06/2019 [place] Comment on above: Once for 1 Occurrences starting 10/06/19 20 until 10/06/2019 Culture, Respiratory [facility] [place] Comment on above: Release Upon Ordering for 1 Occurrences starting 10/06/2019 ONE TIME for 1 Occur rences starting 08/08/2019 Culture, Virus, Respiratory Culture, Virus, Respiratory Microbiology Routine Release Upon Ordering for 1 Occurrences starting 10/06/2019 [place] Comment on above: Release Upon Ordering for 1 Occurrences starting 10/06/2019 Cytology, Non-Rpg Programmer Cytology, Non- Rpg Programmer Lab Routine ONE TIME for 1 Occurrences starting 08/08/2019 [facility] [place] Comment on above: ONE TIME for 1 Occurrences starting 07/23 EKG 12 Lead EKG 12 Lead ECG STAT 11/02/2019 10:57 AM EDT [place] [facility] Comment on above: Release Upon Ordering for 1 Occurrences starting 10/06/2019 ONE TIME for 1 Occur rences starting 08/08/2019 End: 08-08-2019 Fungus Culture Fungus Culture Microbiology Routine Once for 1 Occurrences starting 08/08/2019 until 08/08/2019 [facility] [place] Comment on above: Once for 1 Occurrences starting 08/08/19 20 until 08/08/2019 HHN Treatment [facility] [place] Comment on above: As Needed until discontinued starting 0800, 1200, 1600, 20 00 (respiratory use [...] for 1 Occurrences starting 10/08/2019 until 10/08/2019 [facility] [place] Comment on above: One Time for 1 Occurrences starting 09/20 until 10/08/2019 End: 08-09-2019 Home O2 eval (desaturation screen) Home O2 eval (desaturation screen) Respiratory Care Routine One Time for 1 Occurrences starting 08/09/2019 until 08/09/2019 [facility] [place] Comment on above: One Time for 1 Occurrences starting 07/23 until 08/09/2019 Initiate Oxygen Ther apy Protocol [facility] [place] Comment on above: Daily until discontinued starting 2019 Daily until disconti nued starting 08/27/2019 Daily until disconti nued starting 11/02/2019 End: 09-01-2025 Lipid 1996 panel - Serum or Plasma Lipid profile Lab Routine Mixed hyperlipidemia 1 Occurrences starting 09/01/2024 until 09/01/2025 [facility] Work Phone: Comment on above: 1 Occurrences starting 09/01/2024 until 09/01/2025 [facility] Respirat ory Care Routine 0600, 1000, 1400, 1800, 2200 until discontinued starting 08/09/2019 [place] Comment on above: 0600, 1000, 1400, 1800, 2200 until disco ntinued starting 08/09/2019 Microscopic observat ion Gram stain Nom (Unsp spec) [place] Comment on above: Release Upon Ordering for 1 Occurrences starting 10/06/2019 ONE TIME for 1 Occur rences starting 08/08/2019 End: 08-25-2019 Pulse Oximetry Spot Check Pulse Oximetry Spot Check Respiratory Care Routine One Time for 1 Occurrences starting 08/25/2019 until 08/25/2019 [place] Comment on above: One Time for 1 Occurrences starting 10/2019 until 08/25/2019 End: 08-27-2019 Pulse Oximetry Spot Check Pulse Oximetry Spot Check Respiratory Care Routine One Time for 1 Occurrences starting 08/27/2019 until 08/27/2019 [place] Comment on above: One Time for 1 Occurrences starting 12/2019 until 08/27/2019 Pulse oximetry, overnight Pulse oximetry, overnight Respiratory Care Routine Every 4hr until discontinued starting 08/09/2019 [place] Comment on above: Every 4hr until discontinued starting Respiratory Care Evaluation and Treat Respiratory Care Evaluation and Treat Respiratory Care Routine Daily until discontinued starting 10/05/2019 [place] Comment on above: Daily until discontinued starting 2019 Respiratory care evaluation only [place] Comment on above: Daily until discontinued starting 2019 Daily until disconti nued starting 11/23/2020 Immunizations Immunization Date Immunization Notes Care Provider Catherine howard 08-08-2019 pneumococcal vaccine , unspecified formulation [facility] [place] 08-08-2019 pneumococcal polysaccharide vaccine, 23 valent Heena Alvaro [place] NEGATED: Highlighted row has not occurred!08-10-2019 influenza, injectable, quadrivalent, preservative free Heena Alvaro [place] NEGATED: Highlighted row has not occurred!08-09-2019 influenza, injectable, quadrivalent, preservative free Heena [place] NEGATED: Highlighted row has not occurred!08-08-2019 influenza, injectable, quadrivalent, preservative free [place]ena [place] Comment on above: Deferred: - Patient refused flu vaccine. Would not like the vaccine at all. Payers Date Payer Category Payer Medicare HMO MEDICARE HMO/PPO - GENERIC PLAN [id number] 2024 Medicare [id number] 2024 Medicare MEDICARE 1.2.840.442911.1.13.424.2. 7.9.586038.102.315 2024 Medicare [id number] 2023 Unknown 2021 [employer] - PPO ANTHEM 1.2.840.193413.1.13.424.2. [id number] 2018 Unknown BCBS [place] P PO xxxxxxxxxxxx 2018-Present [address] [place] [address] xxxxxxxxxxxx 1.2.840.663097.1.13.239.2. 7.3.009250.315 1959 Unknown [id number] 1.2.840.909081.1.13.239.2. 7.3.368305.315 1959 Unknown [id number] 1959 Unknown [id number] 2.16.840.1.106536.3.579.2. 175 1959 Unknown [id number] 2.16.840.1.221762.3.579.2. 175 1959 Unknown [id number] 2.16.840.1.463012.3.579.2. 176 1959 Unknown [id number] 2.16.840.1.573546.3.579.2. 176 1959 Unknown [id number] 2.16.840.1.548154.3.579.2. 176 1959 Unknown [id number] 2.16.840.1.770897.3.579.2. 593 1959 Unknown [id number] 2.16.840.1.962864.3.579.2. 593 1959 Unknown [id number] 2.16.840.1.542089.3.579.2. 593 1959 Unknown [id number] 2.16.840.1.426506.3.579.2. 593 1959 Unknown [id number] 2.16.840.1.378762.3.579.2. 593 1959 Unknown [id number] 2.16.840.1.274819.3.579.2. 593 1959 Unknown [id number] 2.16.840.1.274967.3.579.2. 593 1959 Unknown [id number] 2.16.840.1.594336.3.579.2. 1286 1959 Unknown [id number] 2.16.840.1.920668.3.579.2. 196 1959 Unknown [id number] 2.16.840.1.837070.3.579.2. 196 1959 Unknown [id number] 2.16.840.1.073434.3.579.2. 196 1959 Unknown [id number] 2.16.840.1.414204.3.579.2. 196 1959 Unknown [id number] 2.16.840.1.146634.3.579.2. 196 1959 Unknown [id number] 2.16.840.1.482537.3.579.2. 196 1959 Unknown [id number] 2.16.840.1.948737.3.579.2. 1286 1959 Unknown [id number] 2.16.840.1.256519.3.579.2. 1286 1959 Unknown [id number] 2.16.840.1.878729.3.579.2. 128 1959 Unknown [id number] 2.16.840.1.523839.3.579.2. 128 1959 Unknown [id number] 2.16.840.1.025152.3.579.2. 1285 1959 Unknown [id number] 2.16.840.1.927911.3.579.2. 1285 1959 Unknown [id number] 2.16.840.1.805498.3.579.2. 1285 1959 Unknown [id number] 2.16.840.1.803671.3.579.2. 1285 1959 Unknown [id number] 2.16.840.1.277643.3.579.2. 1285 1959 Unknown [id number] 2.16.840.1.908766.3.579.2. 1285 1959 Unknown [id number] 2.16.840.1.368855.3.579.2. 1285 1959 Unknown [id number] 2.16.840.1.553208.3.579.2. 1285 1959 Unknown [id number] 2.16.840.1.235688.3.579.2. 1285 1959 Unknown [id number] 2.16.840.1.335969.3.579.2. 1285 1959 Unknown [id number] 2.16.840.1.771056.3.579.2. 1285 1959 Unknown [id number] 2.16.840.1.366740.3.579.2. 1285 1959 Unknown [id number] 2.16.840.1.899890.3.579.2. 1286 Social History Date Type Detail Facility Start: 08-25-2019 End: 06-13-2024 Tobacco smoking status NHIS Former smoker [facility] Start: 08-25-2019 End: 05-29-2024 Cigarettes smoked current (pack per day) - Reported [place], [place] Start: 08-25-2019 End: 10-18-2024 Alcohol intake Current drinker of alcohol (finding) [place], [place] Start: 08-08-2019 Tobacco Comment quit Jul 2019 [place] Start: 02-01-2019 Alcohol [place] Start: 1960 Sex Assigned At Not on file [place], [place] Start: 02-20-2020 End: 06-13-2024 Tobacco use and exposure Never used [place] Start: 06-23-1977 End: 02-01-2024 Tobacco smoking status NHIS Current every day smoker [place] Exposure to SARS-CoV -2 (event) Unable to assess [place] Start: 06-23-1977 End: 05-28-2024 History of tobacco use Current smoker [facility] Exposure to SARS-CoV -2 (event) Not sure [facility] Start: 06-23-1977 End: 05-28-2024 History of tobacco use Cigarette Smoker [facility] Start: 05-28-2024 End: 05-29-2024 Loop Survey [facility] Has the [employer], or [employer] threatened to shut off services in your home in past 12Mo No [facility] Are you now , , , , never or living with a partner? [facility] How often to you hav e a drink containing alcohol? 2-4 times a month [facility] How many standard drinks containing alcohol do you have on a typical day? 1 or 2 [facility] How often do you hav e 6 or more drinks on 1 occasion? Never [facility] How hard is it for y ou to pay for the very basics like food, housing, medical care, and heating Not hard at all [facility] Do you feel stress - tense, restless, nervous, or anxious, or unable to sleep at night because your mind is troubled all the time - these days [OSQ] To some extent [facility] Start: 02-25-2023 Alcohol Comment Occasionally [facility] Start: 01-25-2015 Sex Female (finding) [facility] Goals Date Patient Goal Desired Activity /State Personal health goal Comment on above: Formatting of this n ote might be different from the original. Evaluation of progress towards goal: Return home with self care and support of spouse if needed. Clinical Notes 06-01-2024 to 10-18-2024 Louie Paul, DO - 10/18/2024 4:30 PM EDTLouie Paul, DO - 09/01/2024 11:00 AM EDTTelephone Encounter - Louie Paul, DO - 08/03/2024 3:40 PM EST Note Date & Type Note Facility 10-18-2024 History of Presen t illness Narrative Subjective Patient ID: Cameron Us is a 64 y.o. female. Cameron presents for a couple concerns. She is having urinary frequency but no dysuria. She has vaginal itching. No fever. She has right-sided low back pain which is aggravated by movement. She also has a sinus infection. It started on Thursday. She feels nauseated. She feels sinus draining and then throws up. She doesn't have a fever. Her doesn't have any symptoms. She hasn't been using the Breztri and not using albuterol nebs 'as much as she should be'. Urinary Tract Infection The following portions of the patient's history were reviewed and updated as appropriate: allergies, current medications, past family history, past medical history, past social history, past surgical history, problem list, and medication reconciliation was completed including current medication and post discharge medication. Review of Systems Objective Physical Exam Vitals reviewed. Exam conducted with a program writer present (). Constitutional: General: She is not in acute distress. Appearance: She is obese. She is not ill-appearing. HENT: Head: Normocephalic. Right Ear: Tympanic membrane, ear canal and external ear normal. Left Ear: Tympanic membrane, ear canal and external ear normal. Nose: Rhinorrhea present. No nasal deformity, septal deviation, signs of injury, laceration, nasal tenderness, mucosal edema or congestion. Rhinorrhea is clear. Right Nostril: No occlusion. Left Nostril: No occlusion. Right Turbinates: Not enlarged, swollen or pale. Left Turbinates: Not enlarged, swollen or pale. Cardiovascular: Rate and Rhythm: Normal rate and regular rhythm. Heart sounds: Normal heart sounds. No murmur heard. Pulmonary: Effort: No respiratory distress. Breath sounds: Wheezing present. No rhonchi or rales. Musculoskeletal: Cervical back: Neck supple. Lymphadenopathy: Cervical: No cervical adenopathy. Neurological: General: No focal deficit present. Mental Status: She is alert and oriented to person, place, and time. Psychiatric: Mood and Affect: Mood normal. Behavior: Behavior normal. Thought Content: Thought content normal. Judgment: Judgment normal. Assessment/Plan Cameron was seen today for urinary tract infection. Diagnoses and all orders for this visit: COPD exacerbation ([facility] - POCT Influenza A/Influenza B/SARS-COV-2 Veritor Check for viral triggers and treat appropriately. Will treat the symptoms for now. We discussed a steroid burst but has had a lot of steroids recently. Will prescribe phenergan DM. Urinary frequency - POCT urinalysis dipstick only UA was essentially negative. She did have trace blood and protein. She will need to have that rechecked. Chronic obstructive pulmonary disease, unspecified COPD type ([facility]) - rppcywsycr-dmhryxjh-zwhefcgecl (BREZTRI AEROSPHERE) 160-9-4.8 mcg/actuation HFA aerosol inhaler; Inhale 2 puffs in the morning and 2 puffs before bedtime. Sample of Breztri given and encouraged to continue it. Vaginal candidiasis Will treat for vaginal candidiasis but if no better will need a pelvic exam. Other orders - promethazine/dextromethorphan (promethazine-DM) 6.25-15 mg/5 mL syrup; Take 5 mL by mouth 4 (four) times a day as needed for cough. - fluconazole (DIFLUCAN) 150 mg tablet; Take 1 tablet (150 mg total) by mouth once for 1 dose. documented in this encounter [facility] 09-01-2024 History of Presen t illness Narrative Subjective Patient ID: Cameron Us is a 64 y.o. female. Cameron presents today for a CV recheck. She has several concerns. She is currently taking Eliquis and it is getting very expensive for her. She had a DVT 8 years ago after surgery for thyroidectomy. Was told she had atrial fibrillation by a doctor after just listening to her heart. She has never seen a cylinder press operator apprentice for it. She followed up with her family doctor and said that the treatment was appropriate and that she should continue it. She wonders if she still needs to take it. She has not had any known episodes of atrial fibrillation since. She has had multiple EKGs that have not demonstrated atrial fibrillation. Her breathing is about the same. She is wondering if she could have a home sleep study. She had a sleep test years ago and needed an external ventilator but could not tolerate it. She does not see a sleep specialist or a worship pastor currently. Hypertension Associated symptoms include shortness of breath. Hyperlipidemia Associated symptoms include shortness of breath. The following portions of the patient's history were reviewed and updated as appropriate: allergies, current medications, past family history, past medical history, past social history, past surgical history, problem list, and medication reconciliation was completed including current medication and post discharge medication. Review of Systems Constitutional: Negative. Respiratory: Positive for apnea, cough, shortness of breath and wheezing. Cardiovascular: Negative. Gastrointestinal: Negative. Genitourinary: Negative. Musculoskeletal: Negative. Skin: Negative. Neurological: Negative. Hematological: Negative. Psychiatric/Behavioral: Positive for sleep disturbance. Objective Physical Exam Vitals reviewed. Constitutional: General: She is not in acute distress. Appearance: She is obese. She is not ill-appearing. HENT: Head: Normocephalic. Cardiovascular: Rate and Rhythm: Normal rate and regular rhythm. Heart sounds: Normal heart sounds. No murmur heard. Pulmonary: Breath sounds: Decreased air movement present. Examination of the right-upper field reveals wheezing. Examination of the left-upper field reveals wheezing. Examination of the right-middle field reveals wheezing. Examination of the left-middle field reveals wheezing. Examination of the right-lower field reveals wheezing. Examination of the left-lower field reveals wheezing. Decreased breath sounds and wheezing present. No rhonchi or rales. Comments: Expiratory wheeze with a cough. She could hardly take a deep breath without coughing. Whenever she coughs there was a wheeze produce Musculoskeletal: Cervical back: Neck supple. Neurological: General: No focal deficit present. Mental Status: She is alert and oriented to person, place, and time. Psychiatric: Attention and Perception: Attention normal. Mood and Affect: Mood and affect normal. Speech: Speech normal. Behavior: Behavior normal. Behavior is cooperative. Thought Content: Thought content normal. Cognition and Memory: Cognition normal. Judgment: Judgment normal. Assessment/Plan Cameron was seen today for hypertension and hyperlipidemia. Diagnoses and all orders for this visit: Mixed hyperlipidemia - Lipid profile; Future - Comprehensive metabolic panel; Future Check CMP and lipids. Paroxysmal atrial fibrillation ([facility]) - Event monitor; Future She seems to be in normal sinus rhythm every time she has been here over the last couple years. Try to find old records regarding when she was diagnosed and what workup she had but was unable to. I am going to check a 30 day event monitor. If it is negative we can consider stopping Eliquis. Chronic obstructive pulmonary disease, unspecified COPD type ([facility]) - Referral to [facility] - [place], [place]; Future Gastroesophageal reflux disease, unspecified whether esophagitis present She is using omeprazole every day. She does not have any heartburn. We will try to cut back to every other day. She can use famotidine on the days that she does not take omeprazole. Sleep apnea, unspecified type - Referral to [facility] - [place], [place]; Future She would like a home sleep study. She does have significant COPD. I would recommend to have her be seen by the the sleep specialist as well as pulmonology to determine if she can have a home sleep study. I doubt it because she needed to have an external ventilator in the past. Her sleep apnea is probably much more complex than just plain sleep apnea. Should be managed by a specialist. Class 2 severe obesity due to excess calories with serious comorbidity and body mass index (BMI) of 38.0 to 38.9 in adult ([facility] She is obese. She would benefit from weight loss. documented in this encounter [facility] 08-03-2024 Miscellaneous Notes Formattin g of this note might be different from the original. Rx sent in. She is overdue for a CV recheck documented in this encounter [facility] 08-03-2024 Telephone encount er Note Rx sent in. She is [facility] Miscellaneous Notes Formattin g of this note might be different from the original. refill [facility] Telephone encount er Note refill [facility] 06-01-2024 Miscellaneous Notes Formattin g of this note might be different from the original. Transition of Care (*required) *Additional Questions/Concerns Requiring PCP Follow-Up: Unable to reach patient for TCM call. No PCP TCV currently scheduled. This documentation is being used for Transition of Care purposes: Yes Goal: Patient will demonstrate a safe transition from hospital to home. Diagnosis on Discharge: Principal Problem: Acute on chronic respiratory failure with hypoxia ([facility]) Active Problems: Postoperative hypothyroidism Cigarette smoker Paroxysmal atrial fibrillation ([facility]) COPD exacerbation ([facility]) Discharge Specialty: Other *Name of Discharging Facility: [facility] Date of Facility Discharge: 05.28.24 - 05.30.24 Date of Interactive Contact and Name of Sales And Service Advisor: 06.01.24 @ [phone] [employer] message @ [phone] - Unable to reach patient *Medication Review Completed: No START taking: benzonatate (TESSALON PERLES) doxycycline (VIBRAMYCIN) guaiFENesin (MUCINEX) nicotine (NICODERM CQ) predniSONE (DELTASONE) CHANGE how you take: levothyroxine (SYNTHROID) Medication Reconciliation Questions/Concerns: *Follow Up Appointments with Providers: Primary: Louie Paul DO TBD Specialty: Specialty: Specialty: Review of Pending Lab/Diagnostic Tests and Plan for Completion: BMP / CBC - 06.02.24 Assessment and Support of Treatment Regimen Adherence and Medication Management: Education Provided by ACN to Support Self-Management, Independent Living and ADLs: Communication with Home Health Agencies and Other Services Utilized/Needed by the Patient: Where do you want her 9:00 a.m. next Thursday LM on VM Patient never returned phone call, do you still want to see her for TCM Yes, if she can get in tomorrow or Thursday but after that it will be past 14 days Thursday [address] could get her you're completely over booked okay documented in this encounter [facility] 06-01-2024 Telephone encount er Note Transition of Care (*required) *Additional Questions/Concerns Requiring PCP Follow-Up: Unable to reach patient for TCM call. No PCP TCV currently scheduled. This documentation is being used for Transition of Care purposes: Yes Goal: Patient will demonstrate a safe transition from hospital to home. Diagnosis on Discharge: Principal Problem: Acute on chronic respiratory failure with hypoxia (CMS-HCC) Active Problems: Postoperative hypothyroidism Cigarette smoker Paroxysmal atrial fibrillation (CMS-HCC) COPD exacerbation ([facility]) Discharge Specialty: Other *Name of Discharging Facility: [facility] Date of Facility Discharge: 05.28.24 - 05.30.24 Date of Interactive Contact and Name of Sales And Service Advisor: 06.01.24 @ [phone] - [place] message @ [phone] - Unable to reach patient *Medication Review Completed: No START taking: benzonatate (TESSALON PERLES) doxycycline (VIBRAMYCIN) guaiFENesin (MUCINEX) nicotine (NICODERM CQ) predniSONE (DELTASONE) CHANGE how you take: levothyroxine (SYNTHROID) Medication Reconciliation Questions/Concerns: *Follow Up Appointments with Providers: Primary: Louie Paul DO TBD Specialty: Specialty: Specialty: Review of Pending Lab/Diagnostic Tests and Plan for Completion: BMP / CBC - 06.02.24 Assessment and Support of Treatment Regimen Adherence and Medication Management: Education Provided by ACN to Support Self-Management, Independent Living and ADLs: Communication with Home Health Agencies and Other Services Utilized/Needed by the Patient: [facility] 06-01-2024 Telephone encount er Note Where do you want her [facility] 06-01-2024 Telephone encount er Note 9:00 a.m. next Thursday [facility] 06-01-2024 Telephone encount er Note LM on VM [facility] 06-01-2024 Telephone encount er Note Patient never returned phone call, do you still want to see her for TCM [facility] 06-01-2024 Telephone encount er Note Yes, if she can get in tomorrow or Thursday but after that it will be past 14 days [facility] 06-01-2024 Telephone encount er Note Thursday the only place I could get her you're completely over booked [employer] 06-01-2024 Telephone encount er Note okay [facility] Evaluation note Diagnosis COPD exacerbation (HCC)- Primary Obstructive chronic bronchitis with exacerbation documented in this encounter [employer] Phone: evaluation note* Diagnosis Stress incontinence- Primary Female stress incontinence Nocturia Paroxysmal atrial fibrillation ([facility]) Atrial fibrillation documented in this encounter [facility] [employer] [facility]* Diagnosis Stress incontinence- Primary Female stress incontinence Nocturia Fibromyalgia Unspecified myalgia and myositis documented in this encounter [facility] [employer] [facility] note* Diagnosis Stress incontinence- Primary Female stress incontinence Nocturia Paroxysmal atrial fibrillation ([facility]) Atrial fibrillation [facility]* Diagnosis Stress incontinence- Primary Female stress incontinence Nocturia Mixed hyperlipidemia- Primary Paroxysmal atrial fibrillation ([facility]) Atrial fibrillation Chronic obstructive pulmonary disease, unspecified COPD type ([facility]) Gastroesophageal reflux disease, unspecified whether esophagitis present Sleep apnea, unspecified type Class 2 severe obesity due to excess calories with serious comorbidity and body mass index (BMI) of 38.0 to 38.9 in adult ([facility]) documented in this encounter [facility] [employer] [facility] note* Diagnosis Stress incontinence- Primary Female stress incontinence Nocturia Paroxysmal atrial fibrillation ([facility]) Atrial fibrillation documented in this encounter [facility] [employer] [facility] note* Diagnosis Stress incontinence- Primary Female stress incontinence Nocturia COPD exacerbation ([facility])- Primary Obstructive chronic bronchitis with exacerbation Urinary frequency Chronic obstructive pulmonary disease, unspecified COPD type ([facility]) Vagina, candidiasis Candidiasis of vulva and vagina [facility]* Attachments The following attachments cannot be sent through Care Everywhere. * COPD Exacerbation Plan ([place]) documented in this encounterZelgor Work Phone: InstructionsNot on filedocumented in this encounter [facility] filedocumented in this encounter [facility] on filedocumented in this encounter [facility] on filedocumented in this encounter [facility] on filedocumented in this encounter [facility] on filedocumented in this encounter [facility] on filedocumented in this encounter [facility] on filedocumented in this encounter [facility] History of Present Illness * Erin Ansari RN - 08/29/2019 7:38 PM EDT IV pulled by day RN. Patient dc papers given. Patient dc'd with all belongings and scripts. * Nati Neves OT - 08/29/2019 12:48 PM EDT [facility] OCCUPATIONAL THERAPY MISSED TREATMENT NOTE INPATIENT [...] ABGs: No results for input(s): PHART, PO2ART, GZL5WCP, IFS3THJ, BEART, Q3AHXGDD, NXH6AVS in the last 72 hours. PT/INR: No results found for: PTINR ASSESSMENT / PLAN: Copd exac - steroid, BD - to po meds Influenza - tamiflu Cough suppressants Okay for home from pulmonary standpoint Plan of care discussed with Dr Childs . REASON FOR VISIT: copd, influenza I examined the patient myself The assessment and Plan in the note per my discussion with ESTATE MANAGER. . * Dalila Dash RN - 08/29/2019 [...] ABGs: No results for input(s): PHART, PO2ART, ITW1XGU, FZY1PNX, BEART, F5DYIQTF, SOS0CNX in the last 72 hours. PT/INR: No [...] Ambulation Assistance: Independent Transfer Assistance: Independent Active Access Spec: Yes Mode of Transportation: Car Occupation: Retired [...] 08/28/2019 11:43 AM Name: Cameron Us Acct: [id number] Room: [address] [place] [address] Day: 1 Admit Date: 08/25/2019 3:06 PM [...] file Gets together: Not on file Attends jehovah's witness service: Not on file Active member of [...] 0.85 (L) 1.0 - 4.8 k/uL Absolute [place] # 0.99 0.1 - 1.3 k/uL Absolute [...] ABGs: No results for input(s): PHART, PO2ART, IVV6LVE, CEE1WBC, BEART, H8MRRGFB, OLQ8OBR in the last 72 hours. PT/INR: No results found for: PTINR ASSESSMENT / PLAN: Copd exac - steroid, BD Influenza - tamiflu Cough suppressants . * Fuentes Jiang MD - 08/27/2019 11:11 AM EST Progress Note 08/27/2019 11:11 AM Name: Cameron Us Acct: [id number] Room: [facility] Day: 1 Admit Date: 08/25/2019 3:06 PM [...] file Gets together: Not on file Attends jehovah's witness service: Not on file Active member of [...] ABGs: No results for input(s): PHART, PO2ART, RYK0CQI, YEB9JNJ, BEART, N3WJYKZO, BCW7RGB in the last 72 hours. PT/INR: No [...] Other pertinent information: Medications confirmed with [facility]. Thank you, Amanda Ellison, PharmD, [facility] [phone] documented in this encounter* Joseph Butterfield RCP [...] 10/07/2019 4:04 PM Name: Cameron Us Acct: [id number] Room: [address] [place] [address] Day: 1 Admit Date: 10/05/2019 2:31 PM [...] file Gets together: Not on file Attends jehovah's witness service: Not on file Active member of [...] exacerbation of chronic obstructive pulmonary disease (COPD) ([facility]) Principal Problem: Acute exacerbation of chronic obstructive [...] ABGs: No results for input(s): PHART, PO2ART, XNS0MQC, YCM1SPO, BEART, X1GEMUKH, TWD6WCL in the last 72 hours. PT/INR: No [...] in the note per my discussion with ESTATE MANAGER. . * Wendy Parra RN - 10/07/2019 12:23 AM EDT Pt. Stated my grandson came to the E.R., Told him he probubly has cov. 19, he was not tested. Pt. Continued to say they gave him a paper on what to look for. [employer] updated Dr. Childs. No orders given for [...] orders for Eliquis and planned bronchoscopy today. MD states ok for patient to have bronchoscopy. [...] up appointments. The pt refused for the travel writer to take her down stairs and [...] ABGs: No results for input(s): PHART, PO2ART, SDR5CNL, YVU0UIO, BEART, U7HFTIBA, IGQ3FUV in the last 72 hours. PT/INR: No [...] Home [] Home with Home Health [] [facility] Facility [] [facility] Patient is admitted as inpatient status because of co-morbidities listed above, severity of signs and symptoms as outlined, requirement for current medical therapies and most importantly because of direct risk to patient if care not provided in a hospital setting. Caden Baldwin MD [facility] Hospitalist * Jacob Luis RCP - 08/09/2019 [...] ABGs: No results for input(s): PHART, PO2ART, MLK7XEM, FYN4SXY, BEART, X0XIFZSW, QRW3JQU in the last 72 hours. PT/INR: No [...] in the note per my discussion with ESTATE MANAGER. . * Caden Baldwin MD - 08/08/2019 [...] flush, acetaminophen CBC: Recent Labs 08/06/19 0423 08/07/199 08/08/19 0613 WBC 7.9 20.0* 18.5* HGB 14.5 14.1 14.0 PLT 366 367 355 BMP: Recent Labs 08/06/19 0423 08/07/199 08/08/19 0613 NA 137 140 140 K [...] Home [] Home with Home Health [] [facility] Facility [] [facility] Patient is admitted as inpatient status because of co-morbidities listed above, severity of signs and symptoms as outlined, requirement for current medical therapies and most importantly because of direct risk to patient if care not provided in a hospital setting. Caden Baldwin MD [facility] * Cynthia Russell - 08/08/2019 3:40 PM EST Ms. Cameron Us is a 59yowf admitted to [facility] for evaluation of COPD exacerbation. Ms. [...] ABGs: No results for input(s): PHART, PO2ART, UNU4UOS, XNG2PYQ, BEART, A5COCZAT, SUL5BPL in the last 72 hours. PT/INR: No [...] Ana Strickland MD [facility] [address] [address] [phone] * Laura Mathis RN - 08/07/2019 3:15 PM EST Pt. Arrived to room 2046. Vitals obtained. Assessment Completed. Pt. Denies any needs at this time.Will Continue to monitor. * Reina Smith RN - 08/07/2019 3:00 PM EST I agree with the charting of Shellie HALL * Analia James [facility] - 08/06/2019 9:25 PM EST Spoke with Dr. Childs and informed him that Codeine and Tylenol #3 are nonformulary and unavailable at [facility] and [facility] suggested Phenergan with codeine. He is very insistent that we try to obtain some, he used it at [place] last month. Per [facility], [facility] appears to have Tylenol #3 still in stock. Called and spoke with pharmacist at [facility], she will call her manager of medical or head buyer tobacco and find out [...] if pharmacy can get in Codeine tablets. [employer] talked with pharmacy and was informed there is no codeine except the one with phenergan. Pharmacist Stated she would try to get a hold of Dr Childs herself. Will continue to monitor situation. Tere Pendleton RN - 08/06/2019 8:16 PM EST Page out to Dr Childs to see if order can be placed for Phenergan with codeine being pharmacy doesn'tcarry the codeine tablet he ordered.Awaiting return page Tere Siddiqui RN - 08/06/2019 7:00 PM EST Telemetry batteries changed with shift report Linnette Rain RN - 08/06/2019 5:[address] [...] Other pertinent information: Medications confirmed with [facility]. Thank you, Amanda Ellison, PharmD, [facility] [phone] * Jacob Luis [facility] - 08/05/2019 2:11 PM EST Breath Sounds: [...] FoundDocuments on File Type Date Recorded Patient Theology Teacher Expl anation Advance Directives and Living Will Power of Consumer Relations Complaint Clerk Latest Code Status on File Code Status [...] Documents on File Type Date Recorded Patient Theology Teacher Expl anation ACP-Advance Directive ACP-Power of Consumer Relations Complaint Clerk Latest Code Status on File Code Status Date Activated Date Inactivated Comments Full Code 10/05/2019 2:43 PM 10/08/2019 2:49 PM Full Code 08/27/2019 11:11 AM 08/29/2019 9:40 PM Full Code 08/25/2019 6:05 PM 08/27/2019 11:11 AM Full Code 08/25/2019 5:50 PM 08/25/2019 6:05 PM Full Code 08/05/2019 4:58 PM 08/10/2019 8:24 PM Documents on File Type Date Recorded Patient Theology Teacher Expl anation ACP-Advance Directive ACP-Power of Consumer Relations Complaint Clerk Latest Code Status on File Code Status Date Activated Date Inactivated Comments Full Code 10/05/2019 2:43 PM 10/08/2019 2:49 PM Full Code 08/27/2019 11:11 AM 08/29/2019 9:40 PM Documents on File Type Date Recorded Patient Theology Teacher Expl anation Advance Directives and Living Will Power of Consumer Relations Complaint Clerk Latest Code Status on File Code Status Date Activated Date Inactivated Comments Full Code 10/05/2019 2:43 PM Latest Code Status on File Code Status Date Activated Date Inactivated Comments Full Code 08/05/2019 4:58 PM Date Activated Date Inactivated Comments 05/28/2024 9:09 PM 05/30/2024 5:34 PM Date Activated Date Inactivated Comments 12/26/2021 6:09 PM 12/29/2021 3:22 PM Date Activated Date Inactivated Comments 09/26/2021 1:46 PM 09/27/2021 12:14 PM Date Activated Date Inactivated Comments 05/28/2024 9:09 PM 05/30/2024 5:34 PM Date Activated Date Inactivated Comments 12/26/2021 6:09 PM 12/29/2021 3:22 PM Date Activated Date Inactivated Comments 09/26/2021 1:46 PM 09/27/2021 12:14 PM Discharge Instructions * Attachments The following attachments cannot be sent through Care Everywhere. * Cough ([place]) * URI (Upper Respiratory Infection): Viral ([place]) * Coronavirus Disease COVID-19: Isolation ([place]) documented in this encounter* Instructions* Misty Sharp [...] through Care Everywhere. * COPD Exacerbation Plan ([place]) * COPD ([place]) * Smoking Cessation: Health Benefits: General Info ([place]) documented in this encounter* Instructions* Warren Olivas [...] through Care Everywhere. * COPD: General Info ([place]) documented in this encounter Reason for Referral Status Reason Specialty Diagnoses / Procedures Re ferred By Contact Referred To Contact Closed Radiology Diagnoses Osteoarthritis of right acromioclavicular joint Procedures MRI SHOULDER RIGHT WO CONTRAST Mao Shepherd MD [address] [place] [address] Summary Purpose Family History No Family History [...] A Influenza A Caden Baldwin MD [address] [place] [address] [facility] Reason Comments Cough Status Reason Specialty Diagnoses / Procedures Re ferred By Contact Referred To Contact Closed Radiology Diagnoses Osteoarthritis of right acromioclavicular joint Procedures MRI SHOULDER RIGHT WO CONTRAST Mao Shepherd MD [address] [address] Status Reason Specialty Diagnoses / Procedures Referre d By Contact Referred To Contact Diagnoses chronic obstructive pulmonary disease Forest Childs MD [address] [facility] [address] [place] [address] [facility] Reason Comments Cough Shortness of Breath Status Reason Specialty Diagnoses / Procedures Referre d By Contact Referred To Contact Diagnoses COPD exacerbation (HCC) Caden Baldwin MD [address] [place] [address] [facility] Reason Comments Cough Shortness of Breath Chills Emesis Reason Comments Shortness of Breath Cough Fatigue Headache Reason Onset Date Comments Transition Of Care 06/01/2024 Reason Comments Med Refill Reason Onset Date Comments Med Refill 08/03/2024 Reason Comments Hypertension Hyperlipidemia Reason Comments Urinary Tract Infection Bladder or kidne y, BV- sinus 4 days INFORMATION SOURCE (unrecogn ized section and content) DATE CREATED AUTHOR 04/17/2020 [facility] DATE CREATED AUTHOR AUTHOR'S ORGANIZ ATION 11/23/2020 [facility] DATE CREATED AUTHOR AUTHOR'S ORGANIZ ATION 09/21/2021 [facility] DATE CREATED AUTHOR AUTHOR'S ORGANIZ ATION 12/20/[address] [facility] DATE CREATED AUTHOR AUTHOR'S ORGANIZ ATION 01/16/2024 [facility] DATE CREATED AUTHOR AUTHOR'S ORGANIZ ATION 02/17/2024 [facility] DATE CREATED AUTHOR AUTHOR'S ORGANIZ ATION 09/04/2024 [facility] DATE CREATED AUTHOR AUTHOR'S ORGANIZ ATION 09/06/2024 [facility] DATE CREATED AUTHOR AUTHOR'S ORGANIZ ATION 10/20/2024 [facility] Ordered Prescriptions (unrec ognized [...] Care Teams (unrecognized sec tion and content) Nurse Outreach Case Manager Relationship Specialty Start Date End Date Louie Paul DO [address] [place] [address] PCP - General Family Medicine 05/28/24 Nurse Outreach Case Manager Relationship Specialty Start Date End Date Louie Paul DO [address] [place] [address] PCP - General Family Medicine 05/28/24 Nurse Outreach Case Manager Relationship Specialty Start Date End Date Louie Paul DO [address] [place] [address] PCP - General Family Medicine 05/28/24 Nurse Outreach Case Manager Relationship Specialty Start Date End Date Louie Paul DO [address] [place] [address] PCP - General Family Medicine 05/28/24 Nurse Outreach Case Manager Relationship Specialty Start Date End Date Louie Paul DO [address] [place] [address] PCP - General Family Medicine 05/28/24 Nurse Outreach Case Manager Relationship Specialty Start Date End Date KadesendyLouie villa DO [address] [place] [address] PCP - General Family Medicine 05/28/24 Nurse Outreach Case Manager Relationship Specialty Start Date End Date Louie Paul DO [address] [place] [address] PCP - General Family Medicine 05/28/24 Nurse Outreach Case Manager Relationship Specialty Start Date End Date Louie Paul DO [address] [place] [address] PCP - General Family Medicine 05/28/24 Nurse Outreach Case Manager Relationship Specialty Start Date End Date KadesendyLuoie villa DO [address] [place] [address] PCP - General Family Medicine 05/28/24 FOR RECORDS PERTAINING TO PATIENTS WHO ARE [...] BE BASED ON THE PRIMARY CLINICAL RECORDS. [facility]. provides no warranty or guarantee of the accuracy or completeness of information in this document.
--- NOTE | 2024-11-17 15:55 | PM.CN ---
Consult Note: HPI Data of Consult Patient: known to practice within the last 3 years Consult date: 08/03/23 Requesting Physician: Giulia Carlin NP Primary Care Provider: HE PAUL Consult Narrative Reason for consult: low back pain Narrative: 63yof who presents for evaluation. worsening axial low back pain for several years. imaging reviewed, which shows moderate facet arthropathy in lower lumbar spine. continues in >6 weeks of provider directed home exercise program, with no benefit. uses tylenol as needed, without benefit. cannot take nsaids due to eliquis. denies adverse med side effects. Pain in right low back 5/10 burning increasing to 8/10 with standing walking, transitioning, bending, and activity. Pain increased with forward flexion and rest. Patient does report intermittent cramping of right leg and thigh. recent lumbar MRI consistent with multilevel moderate to severe stenosis and degenerative changes. cc:: CC: Giulia Carlin NP Review of Systems ROS Status of ROS 10 or more systems reviewed and unremarkable except as noted in history and below Musculoskeletal Reports: back pain, extremity pain and joint pain PFSH PFSH Medical History S/P neck surgery, follow-up exam ?Z09 - Encounter for follow-up examination after completed treatment for conditions other than malignant neoplasm (ICD-10) Upper back pain ?M54.9 - Dorsalgia, unspecified (ICD-10) Neck pain ?M54.2 - Cervicalgia (ICD-10) Low back pain ?M54.50 - Low back pain, unspecified (ICD-10) Hypothyroidism ?E03.9 - Hypothyroidism, unspecified (ICD-10) Pulmonary embolism ?I26.99 - Other pulmonary embolism without acute cor pulmonale (ICD-10) COPD (chronic obstructive pulmonary disease) ?J44.9 - Chronic obstructive pulmonary disease, unspecified (ICD-10) Smoker ?F17.200 - Nicotine dependence, unspecified, uncomplicated (ICD-10) Chronic cough ?R05.3 - Chronic cough (ICD-10) Atrial fibrillation ?I48.91 - Unspecified atrial fibrillation (ICD-10) Surgical History H/O thumb surgery ?Z98.890 - Other specified postprocedural states (ICD-10) Hx of appendectomy ?Z90.49 - Acquired absence of other specified parts of digestive tract (ICD-10) H/O: hysterectomy ?Z90.710 - Acquired absence of both cervix and uterus (ICD-10) H/O carpal tunnel repair ?Z98.890 - Other specified postprocedural states (ICD-10) H/O thyroidectomy ?E89.0 - Postprocedural hypothyroidism (ICD-10) Meds Home Medications and Allergies Home Medications ?Medication ?Instructions ?Recorded ?Confirmed ?Type albuterol sulfate 0.63 mg/3 mL 0.63 mg inhalation TID PRN 08/03/23 02/01/24 History solution for nebulization shortness of breath or wheezing apixaban 5 mg tablet (Eliquis) 5 mg PO BID 08/03/23 02/01/24 History budesonide 160 mcg-glycopyr 9 2 inh inhalation BID 08/03/23 02/01/24 History mcg-formot 4.8 mcg/actuation HFA inhaler (MyColorScreen) diltiazem HCl 120 mg capsule,24 120 mg PO DAILY 08/03/23 02/01/24 History hr,extended release duloxetine 20 mg capsule,delayed 20 mg PO DAILY 08/03/23 02/01/24 History release levothyroxine 125 mcg capsule 125 mcg PO DAILY 08/03/23 02/01/24 History baclofen 10 mg tablet 10 mg PO BID PRN muscle spasm #60 05/26/24 Rx tabs gabapentin 300 mg capsule 300 mg PO DAILY #30 caps 05/26/24 Rx Allergies Allergy/AdvReac Type Severity Reaction Status Date / Time No Known Drug Allergies Allergy Verified 02/01/24 10:49 Exam Constitutional Documenting provider has reviewed patient's vital signs: yes Common normals: no apparent distress, oriented x3, healthy appearing, alert and well nourished General appearance: cooperative HENMT Common normals: normocephalic, hearing grossly normal bilaterally and moist oral mucous membranes Head and scalp: normocephalic Eye Common normals: PERRL Pupil: PERRL Neck & C-Spine Common normals: full ROM General: normal visual inspection Chest Common normals: inspection of chest normal Respiratory Common normals: normal respiratory effort, no retractions and no use of accessory muscles Back & Pelvis Lumbar spine/lower back: pain with ROM, lumbar spinal tenderness and straight leg raise positive right Other: mildly positive facet loading positive right aime(patricks), gaenslens, thigh thrust, compression test decreased sensation following right L3,4,5,S1 pattern strength 4/5 in RLE and 5/5 in LLE Extremity Common normals: normal to inspection and full ROM Neuro Common normals: oriented x3 Sensorium/orientation: alert Motor exam: strength 5/5 throughout and no movement abnormalities noted Psych Common normals: mental status grossly normal, thought process normal, cooperative, affect normal, speech normal and activity/motor behavior normal Speech: normal speech Thought process: normal thought process Results Additional Findings Additional findings: If on a controlled substance or opioids, I have checked an OARRS report on this patient and there are no aberrancies noted in the prescribing history.??If on a controlled substance or opioid a drug screen was completed and reviewed within the last year, and if there has not been a drug screen completed we ordered one today to monitor higher risk, state monitored pain medication use. As part of providing excellent, safe, comprehensive care, the following was completed at our patient's visit: 1. A medication reconciliation and review to ensure accurate knowledge of current/active medications, including asking our patients to inform us about any cylx-zrm-laxshll medications or herbal remedies/nutritional supplements/alternative remedies. 2. A review to specifically ensure our patients have had annual screening for screening for depression, screening for tobacco use, and screening for unhealthy alcohol use. For concerning screenings had a discussion with the patient, provided patient education, and recommended follow-up with primary care provider when appropriate. If patient noted with a risk of falling, they received education on strength, gait, and balance training to prevent future risk of falling. Assessment and Plan Assessment and Plan (1) Lumbar stenosis with neurogenic claudication: Assessment and Plan: The patient has had over 3 months of moderate to severe low back and RLE pain with functional impairment and inadequate response to conservative care including NSAIDS (unless there are contraindication such as concurrent blood thinners), multiple oral or topical pain medications, and home exercise program/physical therapy.? Patient has completed >6 weeks of guided home exercise program and/or formal physical therapy program without relief of their symptoms.? The Oswestry Disability Index was completed, and the patient scored a 54%.? The patient noted the following:?? moderate to severe pain impacting ADLs, sitting, standing, walking We discussed the risks and benefits of the procedure with the patient, and we are NOT planning on using sedation as outlined in the guidelines from Medicare unless there is a documented reason that sedation would be strongly recommended.?? ?The procedure will be completed with fluoroscopic guidance.? (2) Sacroiliitis: (3) Myofascial pain: (4) Lumbar spondylosis: Plan right L3-4 L4-5 TFESI under fluoroscopy consider right sij injection refer to NS for evaulation and consideration of surgical intervention increase gabapentin 300mg TID, risks vs benefits reviewed she admitted to taking her husbands norco. 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
== END 2024-11-17 14:37 | disposition home or self-care (01) ==
PROVIDERS: PCP Family Medicine; Visit Provider Nurse Practitioner
DX: M48.062 Spinal stenosis, lumbar region with neurogenic claudication (principal); M46.1 Sacroiliitis, not elsewhere classified; M79.18 Myalgia, other site; M47.816 Spondylosis without myelopathy or radiculopathy, lumbar region
CPT/HCPCS: G0463

== ENCOUNTER 2024-12-15 12:54 | Outpatient (OUT) | payer MEDICARE, OTHER, SELFPAY ==
--- OUTSIDE RECORDS SUMMARY | 2024-12-15 12:56 | XMS_ITS | Clinical Summary ---
Author Organization [facility] Healthcare Address [address] [place] [address] Care Team Providers Care Manager Of International Name Role Phone Unavailable Primary Care Provider Unavailabl e Social History Tobacco Use Types Packs/Day Years Used Date Smoking Tobacco: Never Assessed Comments Unknown Sex and Gender Information Value Date Recorded Sex Assigned at Not on file Legal Sex Female 8:00 PM EDT Gender Identity Not on file Sexual Orientation Not on file Last Filed Vital Signs Vital Sign Reading Time Taken Comments Blood Pressure 107/85 10/11/2021 12:00 PM EDT Pulse - - Temperature - - Respiratory Rate - - Oxygen Saturation - - Inhaled Oxygen Concentration - - Weight 111 kg (244 lb) 02/07/2022 12:00 PM EDT Height 175.3 cm (5' 9 ) 02/07/2022 12:00 PM EDT Body Mass Index 36.03 02/07/2022 12:00 PM EDT Plan of Treatment Not on file Insurance [facility]
--- OUTSIDE RECORDS SUMMARY | 2024-12-15 12:56 | XMS_ITS | Clinical Summary ---
Author Organization [facility] tem Address [id number] [address] [place] [address] Care Team Providers Care Veterinarian Name Role Phone Chinmay Louie Hawkins DO Primary Care Provider [phone] Allergies No known active allergies Medications omeprazole (PriLOSEC) 20 mg capsule Take 1 capsule (20 mg total) by mouth every other day. Active Lactobacillus acidophilus (PROBIOTIC ACIDOPHILUS ORAL) Take 1 tablet by mouth in the morning. Active acetaminophen (TYLENOL) 325 mg tablet Take 2 tablets (650 mg total) by mouth every 4 (four) hours as needed (Temperature greater than 38.3 C). 30 tablet 09/28/19 22 Active albuterol (PROVENTIL,VENTOLI N) 2.5 mg /3 mL (0.083 %) nebulizer solutionIndication s:Chronic respiratory failure with hypoxia ([facility]) Inhale 3 mL (2.5 mg total) by nebulization every 6 (six) hours as needed for wheezing. 75 mL 2 05/11/20 23 Active MIEBO 100 % drops 11/21/19 24 Active albuterol (PROVENTIL HFA;VENTOLIN HFA) 90 mcg/actuation inhalerIndications :Acute exacerbation of chronic obstructive pulmonary disease (COPD) ([facility]) Inhale 2 puffs 4 (four) times a day. 18 g 11 11/23/19 24 Active liothyronine (CYTOMEL) 5 MCG tabletIndications: Postoperative hypothyroidism Take 1 tablet (5 mcg total) by mouth in the morning. 30 tablet 11 12/23/19 24 Active budesonide-glycopy r-formoterol (BREZTRI AEROSPHERE) 160-9-4.8 mcg/actuation HFA aerosol inhalerIndications :Acute exacerbation of chronic obstructive pulmonary disease (COPD) ([facility]) Inhale 2 puffs in the morning and at bedtime. 31.1 g 1 01/21/20 24 Active levothyroxine (SYNTHROID) 125 MCG tablet Take 1 tablet (125 mcg total) by mouth in the morning. 02/25/20 24 Active cetirizine (ZyrTEC) 10 mg tablet TAKE 1 TABLET (10 MG TOTAL) BY MOUTH IN THE MORNING 90 tablet 1 03/11/20 24 Active baclofen (LIORESAL) 10 mg tablet 05/26/20 24 Active gabapentin (NEURONTIN) 300 mg capsule Take by mouth. 05/26/20 24 Active dilTIAZem CD (CARDIZEM CD) 120 mg 24 hr capsuleIndications :Paroxysmal atrial fibrillation ([facility]) TAKE 1 CAPSULE (120 MG TOAL) BY MOUTH IN THE MORNING 90 capsule 1 06/20/20 24 Active DULoxetine (CYMBALTA) 20 mg capsuleIndications :Fibromyalgia TAKE 1 CAPSULE BY MOUTH EVERY DAY AT NIGHT 90 capsule 07/13/19 25 Active atorvastatin (LIPITOR) 10 mg tablet Take 1 tablet (10 mg total) by mouth in the morning. 30 tablet 11 09/06/19 25 Active promethazine/dextr omethorphan (promethazine-DM) 6.25-15 mg/5 mL syrup Take 5 mL by mouth 4 (four) times a day as needed for cough. 473 mL 10/19/19 25 Active budesonide-glycopy r-formoterol (BREZTRI AEROSPHERE) 160-9-4.8 mcg/actuation HFA aerosol inhalerIndications :Chronic obstructive pulmonary disease, unspecified COPD type ([facility]) Inhale 2 puffs in the morning and 2 puffs before bedtime. 5.9 g 10/19/19 25 Active Active Problems Problem Noted Date Diagnosed Date COPD exacerbation 05/28/2024 Mixed hyperlipidemia 02/17/2024 Paroxysmal atrial fibrillation 02/01/2024 Pedal edema 02/01/2024 Chronic obstructive pulmonary disease 07/30/2023 Stress incontinence 01/01/2022 Overview (01/01/2022): 01/01/22: PVR 29. We discussed that usually this was a structural issue and can require surgical intervention to correct. She is interested in trying pelvic floor physical therapy 1st. She will also be getting her BiPAP machine soon. Hopefully this will help with her nocturia. Assessment & Plan (01/01/2022 11:22 AM EDT): I told her to call she has any problems before her follow-up. We will see her back in 3 months. I told her we could try Myrbetriq for any persistent nocturia. She will call me if interested. Tachycardia with heart rate 100-120 beats per mi nute 08/26/2019 Carpal tunnel syndrome, unspecified upper limb 0 02/01/2019 Trigger finger 02/01/2019 Postoperative hypothyroidism 02/01/2019 Resolved Problems Problem Noted Date Diagnosed Date Resolved Date Class 2 severe obesity due t o excess calories with serious comorbidity and body mass index (BMI) of 38.0 to 38.9 in adult 02/01/2024 Cigarette smoker 10/02/2022 06/13/2024 Acute on chronic respiratory failure with hypercapnia 12/27/2021 12/22/2022 Acute exacerbation of chroni c obstructive pulmonary disease (COPD) 09/26/2021 12/22/2022 Acute on chronic respiratory failure with hypoxia 10/07/2019 09/01/2024 Acute exacerbation of chroni c obstructive pulmonary disease 08/05/2019 12/22/2022 Pneumonia 12/22/2022 Encounters Date Type Department Care Team Description 12/07/2024 Orders Only [facility] [address] [phone] Nicole Douglas LPN SOB (shortness of breath) (Primary Dx) 12/07/2024 Telephone [facility] [address] [phone] Lucas Whitlock 11/18/2024 Orders Only [facility] Internal [facility] - Family Medicine [address] [place] [phone] Ref Prov, Not In System 10/18/2024 4:30 PM EDT Office Visit [facility] - [facility] [address] [place] [address] Louie Moy, COPD exacerbation ([facility]) (Primary Dx); Urinary frequency; Chronic obstructive pulmonary disease, unspecified COPD type ([facility]); Vagina, candidiasis 10/18/2024 Travel 10/03/2024 Orders Only [facility] [address] [place] [address] Louie Moy, 09/14/2024 Orders Only [facility] - [facility] [address] [place] [address] Louie Moy, Paroxysmal atrial fibrillation ([facility]) from Last 3 Months Immunizations Immunization Administration Dates Next Due Pneumococcal Polysaccharide 08/08/2019 Family History Medical History Relation Name Comments Asthma Daughter 1 Kathryn Asthma Daughter 2 Donna Heart disease Father Ovarian cancer Mother Hyla Thyroid disease Sister Relation Name Status Comments Daughter 1 Kathryn Daughter 2 Donna Father Mother Hyla Sister Social History Tobacco Use Types Packs/Day Years Used Date Smoking Tobacco: Former Cigarettes 0.9 46.9 0 06/23/1977 - 05/28/2024 Smokeless Tobacco: Never Tobacco Cessation:Counseling Given: Not Answered Alcohol Use Standard Drinks/Week Comments Yes 0 (1 standard drink = 0.6 oz pur e alcohol) Occasionally [employer] Answer Date Recorded In the past 12 months has [employer], oil, or water [employer] threatened to shut off services in your home? No 05/28/2024 Social Connection and Isolation Panel [NHANES] A nswer Date Recorded In a typical week, how many times do you talk on the phone with family, friends, or neighbors? Three times a week 05/29/2024 How often do you get togethe r with friends or relatives? Three times a week 05/29/2024 How often do you attend chur or hindu services? Never 05/29/2024 Do you belong to any clubs o r organizations such as mormon groups, unions, fraternal or athletic groups, or school groups? No 05/29/2024 How often do you attend meet ings of the clubs or organizations you belong to? Never 05/29/2024 Are you , , di vorced, , never , or living with a partner? 05/29/2024 AUDIT-C Answer Date Recorded Q1: How often do you have a drink containing alc ohol? 2-4 times a month 05/29/2024 Q2: How many drinks containi ng alcohol do you have on a typical day when you are drinking? 1 or 2 05/29/2024 Q3: How often do you have si x or more drinks on one occasion? Never 05/29/2024 Overall Financial Resource Strain (CARDIA) Answe r Date Recorded How hard is it for you to pa y for the very basics like food, housing, medical care, and heating? Not hard at all 05/28/2024 PHQ-2 Answer Date Recorded Total Score 0 10/18/2024 [facility] - Occupational Stress Questionnaire Answer Date Recorded Do you feel stress - tense, restless, nervous, or anxious, or unable to sleep at night because your mind is troubled all the time - these days? To some extent 05/28/2024 Exercise Vital Sign Answer Date Recorde d On average, how many days pe r week do you engage in moderate to strenuous exercise (like a brisk walk)? 4 days 05/28/2024 On average, how many minutes do you engage in exercise at this level? 10 min 05/28/2024 PRAPARE - Transportation Answer Date Re corded In the past 12 months, has l ack of transportation kept you from medical appointments or from getting medications? No 01/2024 In the past 12 months, has l ack of transportation kept you from meetings, work, or from getting things needed for daily living? No 05/29/2024 Housing Instability Answer Date Recorde d Are you worried or concerned that in the next two months you may not have stable housing that you own, rent or stay in as a part of a household? No 05/28/2024 Childcare Answer Date Recorded Do problems getting child ca re make it difficult for you to work or study? No 05/29/2024 Employment Answer Date Recorded Do you need help finding a [facility] and/or a training program? No 05/28/2024 Hunger Screening Answer Date Recorded Within the past 12 months we worried whether our food would run out before we got money to buy more. Never True 10/18/2024 Within the past 12 months th e food we bought just didn't last and we didn't have money to get more. Never True 10/18/2024 Purpose - Life Answer Date Recorded I have a purpose and direction in my life. Stron gly Agree 05/29/2024 Comments No Sex and Gender Information Value Date Recorded Sex Assigned at Not on file Legal Sex Female 11:21 AM EDT Gender Identity Not on file Sexual Orientation Not on file Last Filed Vital Signs Vital Sign Reading Time Taken Comments Blood Pressure 128/64 10/18/2024 4:29 PM EDT Pulse 65 10/18/2024 4:29 PM EDT Temperature 36.7 C (98 F) 10/18/2024 4:29 PM EDT Respiratory Rate 24 10/18/2024 4:29 PM EDT Oxygen Saturation 98% 10/18/2024 4:29 PM EDT Inhaled Oxygen Concentration - - Weight 115.2 kg (254 lb) 10/18/2024 4:29 PM EDT Height 172.7 cm (5' 7.99 ) 10/18/2024 4:29 PM ED T Body Mass Index 38.63 10/18/2024 4:29 PM EDT Plan of Treatment Upcoming Encounters Date Type Department Care Team (Late st Contact Info) Description 12/28/2024 8:00 AM EDT Support Visit [facility] [address] [place] [phone] 12/28/2024 9:00 AM EDT Office Visit [facility] [address] [phone] Kelley Garcia MD [address] [address] 03/21/2025 10:20 AM EDT Office Visit [facility] - Family Medicine [address] [place] [address] Health Maintenance Due Date Last Done Comments Medicare Annual Wellness Visit 1960 Mammogram 1999 Zoster (Shingles) Vaccine (1 of 2) 2009 Influenza Vaccine 02/20/2025 Adult BMI Follow Up Plan 03/31/2025 03/31/2024 DTaP,Tdap and Td Vaccines (1 - Tdap) 06/22/2025 Postponed from 03/05 (Patient Refused) Adult BMI Screening 10/18/2025 10/18/2024 Depression Screening 10/18/2025 10/18/2024 Fall Risk Screening 10/18/2025 10/18/2024 Tobacco Screening 10/18/2025 10/18/2024 Colon Cancer Screening 3 Yea r Cologuard 02/25/2027 02/26/2024 Goals Goal Patient Goal Type Associated Problems Recent Progress Patient-Stated? Author Return to home with self care General Yes Evita Luis, RN Note: Evaluation of progress towards goal: Return home with self care and support of spouse if needed. Medical Devices Not on file Procedures Procedure Name Priority Date/Time Associated Diagnosis Comments MR LUMBAR SPINE WO CONT Routine 11/07/2024 6:49 AM EDT POCT INFLUENZA A/INFLUENZA B/SARS-COV-2 VERITOR Routine 10/18/2024 5:12 PM EDT COPD exacerbation ([facility]) POCT URINALYSIS DIPSTICK ONLY Routine 10/18/2024 5:07 PM EDT Urinary frequency COLOGUARD NON-[facility] Routine 02/26/2024 11:55 AM EDT Screen for colon cancer from Last 3 Months or Most Recently Relevant to Health Maintenance Results * MR lumbar spine without contrast (11/07/2024 6:49 AM EDT) Anatomical Region Laterality Modality MSK, Neuro, Spine, L-spine, Spine Covera N/A Magnetic Resonance us Not In System Ref Prov IMG MRI ORDERABLES Final Result * POCT Influenza A/Influenza B/SARS-COV-2 Veritor (10/18/2024 5:12 PM EDT) External Poct Influenza A Antigen Negative MANUALLY TRANSCRIBED RESULTS External Poct Influenza B Antigen Negative MANUALLY TRANSCRIBED RESULTS External POCT SARS COV 2 Veritor Presumptive Negative MANUALLY TRANSCRIBED RESULTS Swab 10/18/2024 5:12 PM EDT [facility] POINT OF CARE TEST ORDERABLE S Final Result Performing Organization Address [facility] de Phone Number MANUALLY TRANSCRIBED RESULTS * POCT urinalysis dipstick only (10/18/2024 5:07 PM EDT) Pathologist [facility] External Poct Urine Color yellow MANUALLY TRANSCRIBED RESULTS External Poct Urine Appearance clear MANUALLY TRANSCRIBED RESULTS External Poct Urine Glucose Negative MANUALLY TRANSCRIBED RESULTS External Poct Urine Bilirubin Negative MANUALLY TRANSCRIBED RESULTS External Poct Urine Ketones Negative MANUALLY TRANSCRIBED RESULTS External Poct Urine Specific [place] 1.020 MANUALLY TRANSCRIBED RESULTS External Poct Urine Blood Trace MANUALLY TRANSCRIBED RESULTS External Poct Urine Ph 6.5 MANUALLY TRANSCRIBED RESULTS External Poct Urine Protein 3+ MANUALLY TRANSCRIBED RESULTS Comment:30 External Poct Urine Urobilinogen 0.2 MANUALLY TRANSCRIBED RESULTS External Poct Urine Nitrite Negative for Enterobius vermicularis MANUALLY TRANSCRIBED RESULTS External Poct Urine Leukocyte Esterase Negative MANUALLY TRANSCRIBED RESULTS Urine 10/18/2024 5:07 PM EDT [facility] POINT OF CARE TEST ORDERABLE S Final Result Performing Organization Address [facility] de Phone Number MANUALLY TRANSCRIBED RESULTS * Cologuard [facility] (02/26/2024 11:55 AM EDT) EXTERNAL COLOGUARD Negative Negative 2023 1:23 PM EDT [facility] (CLIA #:[id number]) Comment: NEGATIVE TEST RESULT. A negative Cologuard result indicates a low likelihood that a colorectal cancer (CRC) or advanced adenoma (adenomatous polyps with more advanced pre-malignant features) is present. The chance that a person with a negative Cologuard test has a colorectal cancer is less than 1 in 1500 (negative predictive value >99.9%) or has an advanced adenoma is less than 5.3% (negative predictive value 94.7%). These data are based on a prospective cross-sectional study of 10,000 individuals at average risk for colorectal cancer who were screened with both Cologuard and colonoscopy. (Evita Dong al, N Engl J Med 2014;370(14):5448-2599) The normal value (reference range) for this assay is negative. COLOGUARD RE-SCREENING RECOMMENDATION: Periodic colorectal cancer screening is an important part of preventive healthcare for asymptomatic individuals at average risk for colorectal cancer. Following a negative Cologuard result, the [place] Cancer Society and U.S. Multi-Society Task Force screening guidelines recommend a Cologuard re-screening interval of 3 years. References: [place] Cancer Society Guideline for Colorectal Cancer Screening: https://www.cancer.org/cancer/njpdz-cvtmgr-vhuumg/piohrkzna-gcxpxlgah-yhmojbg/ac s-rec ommendations.html.; Marco Antonio DK, Skip CLARK, Gardenia DiaK, Colorectal Cancer Screening: Recommendations for Physicians and Patients from the U.S. Multi-Society Task Force on Colorectal Cancer Screening , Am J Gastroenterology 2017; 112:8411-7400. TEST DESCRIPTION: Composite algorithmic analysis of stool DNA-biomarkers with hemoglobin immunoassay. Quantitative values of individual biomarkers are not reportable and are not associated with individual biomarker result reference ranges. Cologuard is intended for colorectal cancer screening of adults of either sex, 45 years or older, who are at average-risk for colorectal cancer (CRC). Cologuard has been approved for use by the U.S. FDA. The performance of Cologuard was established in a cross sectional study of average-risk adults aged 50-84. Cologuard performance in patients ages 45 to 49 years was estimated by sub-group analysis of near-age groups. Colonoscopies performed for a positive result may find as the most clinically significant lesion: colorectal cancer [4.0%], advanced adenoma (including sessile serrated polyps greater than or equal to 1cm diameter) [20%] or non- advanced adenoma [31%]; or no colorectal neoplasia [45%]. These estimates are derived from a prospective cross-sectional screening study of 10,000 individuals at average risk for colorectal cancer who were screened with both Cologuard and colonoscopy. (Evita Bridges et al, N Engl J Med 2014;370(14):9109-0022.) Cologuard may produce a false negative or false positive result (no colorectal cancer or precancerous polyp present at colonoscopy follow up). A negative Cologuard test result does not guarantee the absence of CRC or advanced adenoma (pre-cancer). The current Cologuard screening interval is every 3 years. (Australian Cancer Society and U.S. Multi-Society Task Force). Cologuard performance data in a 10,000 patient pivotal study using colonoscopy as the reference method can be accessed at the following location: www.1Rebel.Invoice2go/results. Additional description of the Cologuard test process, warnings and precautions can be found at www.Floovedoguard.Invoice2go. Stool specimen (specimen) Rectum structure / Unknown 02/26/2024 11:55 AM EDT 02/27/2024 7:15 AM EDT Louie Moy DO LAB ORDERABLES Final Result [facility] (CLIA #:[id number]) [place] [address] [place] [address], from Last 3 Months or Most Recently Relevant to Health Maintenance Insurance MEDICARE Advance Directives * Full Code (Latest Code Status on File) Date Activated Date Inactivated Comments 05/28/2024 9:09 PM 05/30/2024 5:34 PM * Full Code Date Activated Date Inactivated Comments 12/26/2021 6:09 PM 12/29/2021 3:22 PM * Full Code Date Activated Date Inactivated Comments 09/26/2021 1:46 PM 09/27/2021 12:14 PM Care Teams Veterinarian Relationship Specialty Start Date End Date Louie Moy DO [address] [facility], [place] [address] PCP - General Family Medicine 05/28/24
--- OUTSIDE RECORDS SUMMARY | 2024-12-15 12:56 | XMS_ITS | Encounter Summary ---
Author Organization [facility] Address [id number] [address] [place] [address] Care Team Providers Care Casing Operator Name Role Phone RaghavendraLouie villa Ross FRANKLIN Primary Care Provider [phone] Encounter Details Date Type Department Care Team (Late st Contact Info) Description 08/25/2022 [facility]phone [facility] [address] [place] [phone] Diamond Wyatt CMA Social History Tobacco Use Types Packs/Day Years Used Date Smoking Tobacco: Every Day Cigarettes Smokeless Tobacco: Never Alcohol Use Standard Drinks/Week Comments Yes 0 (1 standard drink = 0.6 oz pur e alcohol) PHQ-2 Answer Date Recorded Total Score 0 08/12/2022 Childcare Answer Date Recorded Childcare Unknown 11/30/2018 Employment Answer Date Recorded Employment Unknown 11/30/2018 Purpose - Life Answer Date Recorded Purpose and direction in life Unknown Comments No Sex and Gender Information Value Date Recorded Sex Assigned at Not on file Legal Sex Female 11:21 AM EDT Gender Identity Not on file Sexual Orientation Not on file COVID-19 Exposure Response Date Recorded In the last month, have you been in contact with someone who was confirmed or suspected to have Coronavirus / COVID-19? No / Unsure 08/12/2022 1:32 PM EST documented as of this encounter Miscellaneous Notes * Telephone Encounter - Diamond Wyatt CMA - 08/25/2022 2:43 PM EST Patient would like a letter sent to [facility] that she can discontinue the Sleep Apne machine. Patient can not afford it. * Telephone Encounter - Louie Moy DO - 08/25/2022 2:43 PM EST Would be against medical advice. I will let Jillian decide since she ordered at * Telephone Encounter - RAKAN Patino - 08/25/2022 2:43 PM EST Yes this would be against medical advice to discontinue as she has sleep apnea. Will they work withher for payment plan? Is she due for a renewal of something on the machine that she cannot afford because I thought she already had the machine at home. * Telephone Encounter - Diamond Wyatt CMA - 08/25/2022 2:43 PM EST Left a message for the patient to call us back * Telephone Encounter - Diamond Wyatt CMA - 08/25/2022 2:43 PM EST I spoke with the patient and she said that she has the machine but it is on rent and it cost $220.00 a month for that and it is extra for the O2 and the concentrator. She can not afford that. She gets a bill each month for over a $1,000.00. * Telephone Encounter - RAKAN Patino - 08/25/2022 2:43 PM EST I am not writing a letter that she can come off either one as it is against medical advice to do so. If she refuses them she can have them picked up or turn them back in to the [employer] company. If you could call [facility] and get more details that would be appreciated. * Telephone Encounter - Diamond Wyatt CMA - 08/25/2022 2:43 PM EST I finally got through to [facility] and spoke with Maria Luz and she is going to look into this. She onlyhas O2 with them and she is not sure why she is getting this bill. She is going to call me back next week. Can you please send this back to me so I can keep an eye on it? Thank you * Telephone Encounter - RAKAN Patino - 08/25/2022 2:43 PM EST Keeping an eye out for [facility] CPAP - thank you * Telephone Encounter - Diamond Wyatt CMA - 08/25/2022 2:43 PM EST I spoke with Maria Luz from [facility] and she said the patient has a $750.00 deductible and then she only has to pay $17.28 a month after that. They have sent her bills and she has not paid anything. Thatis why her bill is so high documented in this encounter Plan of Treatment Upcoming Encounters Date Type Department Care Team (Late st Contact Info) Description 12/28/2024 8:00 AM EDT Support Visit [facility] [address] [phone] 12/28/2024 9:00 AM EDT Office Visit [facility] [address] [phone] Kelley Garcia MD [address] [address] 03/21/2025 10:20 AM EDT Office Visit [facility] - Family Medicine [address] [place] [address] documented as of this encounter Visit Diagnoses Not on filedocumented in this encounter Additional Health Concerns Infection Onset Date Last Indicated Resolved Time COVID-19 Rule-Out 05/28/2024 05/28/2024 05/28/2024 6:14 PM EST Assessment Noted Time PHQ-9 Depression Total Score: 0 08/12/19 1:59 PM EST A Body Mass Index follow-up plan has been documented for the patient 08/18/2022 6:46 AM EST documented as of this encounter Care Teams Casing Operator Relationship Specialty Start Date End Date Louie Moy DO [address], [facility] [place] [address] PCP - General Family Medicine 05/28/24 documented as of this encounter
--- OUTSIDE RECORDS SUMMARY | 2024-12-15 12:56 | XMS_ITS | Encounter Summary ---
Author Organization [facility] Sys tem Address [facility]-[id number] [address] [place] [address] Care Team Providers Care Water Gas Operator Name Role Phone ChinmayLouie Ross FRANKLIN Primary Care Provider [phone] Encounter Details Date Type Department Care Team (Late st Contact Info) Description 11/18/2024 Orders Only [facility] Internal Medicine - Family Medicine [address] [place] [address] Ref Prov, [place] [address] Social History Tobacco Use Types Packs/Day Years Used Date Smoking Tobacco: Former Cigarettes 0.9 46.9 0 06/23/1977 - 05/28/2024 Smokeless Tobacco: Never Alcohol Use Standard Drinks/Week Comments Yes 0 (1 standard drink = 0.6 oz pur e alcohol) Occasionally C Utilities Answer Date Recorded In the past 12 months has [employer], gas, oil, or water [employer] threatened to shut off services in your [...] 05/29/2024 How often do you attend chur ch or yazdanism services? Never 05/29/2024 Do you belong to any clubs o r organizations such as buddhism groups, unions, fraternal or athletic groups, or [...] Answer Date Recorded Total Score 0 10/18/2024 [facility] ional [facility] - Occupational [...] Recorded Do you need help finding a [facility] career center and/or a training program? No [...] on file Sexual Orientation Not on file documented as of this encounter Plan of Treatment Upcoming Encounters Date Type Department Care Team (Late st Contact Info) Description 12/28/2024 8:00 AM EDT Support Visit [facility] [address] [place] [phone] 12/28/2024 9:00 AM EDT Office Visit [facility] [address] [phone] Kelley Garcia MD [address] [address] 03/21/2025 10:20 AM EDT Office Visit [facility] Internal Medicine - Family Medicine [address] [address] documented as of this encounter Goals Goal Patient Goal Type Associated Problems Recent Progress Patient-Stated? Author Return to home with self care General Yes Evita Luis, RN Note: Evaluation of progress towards goal: Return home with self care and support of spouse if needed. documented as of this encounter Procedures Procedure Name Priority Date/Time Associated Diagnosis Comments MR LUMBAR SPINE WO CONT Routine 11/07/2024 6:49 AM EDT documented in this encounter Results * MR lumbar spine without contrast (11/07/2024 6:49 AM EDT) Anatomical Region Laterality Modality MSK, Neuro, Spine, L-spine, Spine Covera N/A Magnetic Resonance us Not In System Ref Prov IMG MRI ORDERABLES Final Result documented in this encounter Visit Diagnoses Not on filedocumented in this encounter Additional Health Concerns Assessment Noted Time PHQ-9 Depression Total Score: 0 10/19/19 25 4:29 PM EDT A Body Mass Index follow-up plan has been documented for the patient 03/31/2024 4:52 PM EDT documented as of this encounter Care Teams Water Gas Operator Relationship Specialty Start Date End Date Louie Moy DO [address] [facility], [facility] [address] PCP - General Family Medicine 05/28/24 documented as of this encounter
--- OUTSIDE RECORDS SUMMARY | 2024-12-15 12:56 | XMS_ITS | Encounter Summary ---
[facility] Address [facility]-[id number] [address] [place] [address] Care Team Providers Care Catalyst Impregnator Name Role Phone Chinmay Louie Ross FRANKLIN Primary Care Provider [phone] Encounter Details Date Type Department Care Team (Late st Contact Info) Description 06/27/2024 Orders Only [facility] Internal Medicine - Family Medicine [address] [place] [address] Diamond Wyatt CMA Chronic obstructive pulmonary disease, unspecified COPD type ([facility]) Social History Tobacco Use Types Packs/Day Years Used Date Smoking Tobacco: Former Cigarettes 0.9 46.9 0 06/23/1977 - 05/28/2024 Smokeless Tobacco: Never Alcohol Use Standard Drinks/Week Comments Yes 0 (1 standard drink = 0.6 oz pur e alcohol) Occasionally C Utilities Answer Date Recorded In the past 12 months has [employer], gas, oil, or water [employer] threatened to shut off services in your [...] often do you attend chur ch or nondenominational services? Never 05/29/2024 Do you belong to any clubs o r organizations such as mormonism groups, unions, fraternal or athletic groups, or [...] PHQ-2 Answer Date Recorded Total Score 0 06/13/2024 [facility] Occupat ional Health - Occupational Stress [...] Recorded Do you need help finding a [facility] career center and/or a training program? No 05/28/2024 Hunger Screening Answer Date Recorded Within the past 12 months we worried whether our food would run out before we got money to buy more. Never True 06/13/2024 Within the past 12 months th e food we bought just didn't last and we didn't have money to get more. Never True 06/13/2024 Purpose - Life Answer Date Recorded I [...] EDT Support Visit [facility] [address] [place] [phone] 12/28/2024 9:00 AM EDT Office Visit [facility] [address] [phone] Kelley Garcia MD [address] [address] 03/21/2025 10:20 AM EDT Office Visit [facility] Internal Medicine - Family Medicine [address] [place] [address] documented as of this encounter Goals Goal Patient Goal Type Associated Problems Recent Progress Patient-Stated? Author Return to home with self care General Yes Evita Luis, RN Note: Evaluation of progress towards goal: Return home with self care and support of spouse if needed. documented as of this encounter Procedures Procedure Name Priority Date/Time Associated Diagnosis Comments [id number] Routine 06/24/2024 Chronic obstructive pulmonary disease, unspecified COPD type ([facility]) documented in this encounter Results * [id number] (06/24/2024) Alpha 1 antitrypsin M/M MANUALLY TRANSCRIBED RESULTS 06/24/2024 us Louie Moy DO LAB BLOOD ORDERABLES Final R esult MANUALLY TRANSCRIBED RESULTS documented in this encounter Visit Diagnoses Diagnosis Chronic obstructive pulmonary disease, unspecified COPD type (CMS-HCC) documented in this encounter Additional Health Concerns Assessment Noted Time PHQ-9 Depression Total Score: 0 06/13/20 3:31 PM EST A Body Mass Index follow-up plan has been documented for the patient 03/31/2024 4:52 PM EDT documented as of this encounter Care Teams Catalyst Impregnator Relationship Specialty Start Date End Date Louie Moy DO [address] [facility] [place], [place] [address] PCP - General Family Medicine 05/28/24 documented as of this encounter
--- NOTE | 2024-12-15 12:57 | MR_ITS ---
The [address] [address] Patient Name: CAMERON US MRN: [id number] date: 1960 Sex: F Assigned Patient Location: MRI Current Patient Location: MRI Accession/Order Number: [id number] Exam Date: 12/15/2024 15:05 Report Date: 12/15/2024 15:08 At the request of: KALIN SEE DO Procedure: MR cervical spine wo con MR cervical spine wo con 12/15/2024 1:50 PM SIGNS AND SYMPTOMS: Chronic neck, hips, and back pain PROTOCOL: Multiplanar multisequence MR images of the cervical spine without contrast COMPARISON: None. FINDINGS: The bones of the cervical spine are in anatomic alignment. There is preservation of vertebral body heights. There is mild disc height loss at C5-C6 and C6-C7. The marrow signal is within normal limits. The cord is normal in signal. No epidural or paraspinous fluid collection is appreciated. The visualized paraspinous soft tissues are within normal limits. The prevertebral soft tissues are within normal limits. At C2-C3: There is a normal disc, central canal, and neural foramen. At C3-C4: There is a broad-based disc bulge with facet and operative joint degenerative change. There is moderate spinal canal narrowing with mild bilateral neural foraminal narrowing. At C4-C5: There is a normal disc, central canal, and neural foramen. At C5-C6: There is a broad-based disc bulge without to joint spurring contributing to moderate bilateral neural foraminal stenosis and moderate spinal canal stenosis. At C6-C7: There is a broad-based disc bulge with uncovertebral joint spurring and facet hypertrophy contributing to mild bilateral neural foraminal narrowing with mild spinal canal narrowing. At C7-T1: There is a normal disc, central canal, and neural foramen. MR/MR cervical spine wo con IMPRESSION: No cord compression or cord signal abnormality. At C3-C4: There is a broad-based disc bulge with facet and operative joint degenerative change. There is moderate spinal canal narrowing with mild bilateral neural foraminal narrowing. At C5-C6: There is a broad-based disc bulge without to joint spurring contributing to moderate bilateral neural foraminal stenosis and moderate spinal canal stenosis. At C6-C7: There is a broad-based disc bulge with uncovertebral joint spurring and facet hypertrophy contributing to mild bilateral neural foraminal narrowing with mild spinal canal narrowing. Impression dictated by: Amilcar Angela M.D. 12/15/2024 3:08 PM Dictation Location: [place] [address] Electronically authenticated by: [id number] Y Date: 12/15/2024 15:08
--- OUTSIDE RECORDS SUMMARY | 2024-12-15 12:57 | XMS_ITS | Encounter Summary ---
Author Organization [facility] Sys tem Address [facility]-[id number] [address] [place] [address] Care Team Providers Care Analysis Specialist Name Role Phone Louie Moy Primary Care Provider [phone] Encounter Details Date Type Department Care Team (Late st Contact Info) Description 02/26/2024 Telephone [facility] Adult [facility]ocr[facility] [address] [facility] [address] [place] [phone] Donna Barkley LPN Social History Tobacco Use Types Packs/Day Years Used Date Smoking Tobacco: Every Day Cigarettes 0.9 47.5 Started: 06/23/1977 Smokeless Tobacco: Never Alcohol Use Standard Drinks/Week Comments Yes 0 (1 standard drink = 0.6 oz pur e alcohol) Occasionally PHQ-2 Answer Date Recorded Total Score 0 02/17/2024 Childcare Answer Date Recorded Childcare Unknown 11/30/2018 Employment Answer Date Recorded Employment Unknown 11/30/2018 Hunger Screening Answer Date Recorded Within the past 12 months we worried whether our food would run out before we got money to buy more. Never True 02/17/2024 Within the past 12 months th e food we bought just didn't last and we didn't have money to get more. Never True 02/17/2024 Purpose - Life Answer Date Recorded Purpose and direction in life Unknown Comments No Sex and Gender Information Value Date Recorded Sex Assigned at Not on file Legal Sex Female 11:21 AM EDT Gender Identity Not on file Sexual Orientation Not on file documented as of this encounter Miscellaneous Notes * Telephone Encounter - Donna Barkley LPN - 02/26/2024 1:03 PM EDT PT CALLED RE LAB RESULTS. SHE IS GOING ON VACATION. documented in this encounter Plan of Treatment Upcoming Encounters Date Type Department Care Team (Late st Contact Info) Description 12/28/2024 8:00 AM EDT Support Visit [facility] [address] [phone] 12/28/2024 9:00 AM EDT Office Visit [facility] [address] [phone] Kelley Garcia MD [address] [address] 03/21/2025 10:20 AM EDT Office Visit [facility] Internal Medicine - Family Medicine [address] [place] [address] documented as of this encounter Visit Diagnoses Not on filedocumented in this encounter Additional Health Concerns Infection Onset Date Last Indicated Resolved Time COVID-19 Rule-Out 05/28/2024 05/28/2024 05/28/2024 6:14 PM EST Assessment Noted Time PHQ-9 Depression Total Score: 0 02/17/20 8:32 AM EDT A Body Mass Index follow-up plan has been documented for the patient 08/18/2022 6:46 AM EST documented as of this encounter Care Teams Analysis Specialist Relationship Specialty Start Date End Date Louie Moy DO [address] [facility] [place] [address] PCP - General Family Medicine 05/28/24 documented as of this encounter
--- OUTSIDE RECORDS SUMMARY | 2024-12-15 12:57 | XMS_ITS | Encounter Summary ---
Author Organization [facility] Sys tem Address [facility]-[id number] [address] [place] [address] Care Team Providers Care Utility Bagger Name Role Phone Chinmay Louie Hawkins DO Primary Care Provider Encounter Details Date Type Department Care Team (Late st Contact Info) Description 12/07/2024 Telephone [facility] [address] [facility] [address] [place] [address] Lucas Whitlock Social History Tobacco Use Types Packs/Day Years Used Date Smoking Tobacco: Former Cigarettes 0.9 46.9 0 06/23/1977 - 05/28/2024 Smokeless Tobacco: Never Alcohol Use Standard Drinks/Week Comments Yes 0 (1 standard drink = 0.6 oz pur e alcohol) Occasionally [facility] Utilities Answer Date Recorded In the past 12 months has [employer], gas, oil, or water company threatened to shut off services in your [...] often do you attend chur ch or yarsani services? Never 05/29/2024 Do you belong to any clubs o r organizations such as religious groups, unions, fraternal or athletic groups, or [...] Answer Date Recorded Total Score 0 10/18/2024 [facility] of Occupat ional Health - Occupational [...] Recorded Do you need help finding a [facility] career center and/or a training program? [...] encounter Miscellaneous Notes * Telephone Encounter - Lucas Whitlock - 12/07/2024 11:23 AM EDT New patient scheduled 12/28/24 w/[facility]EMI[facility] @ [facility] for Chronic obstructive pulmonary disease, unspecified COPD type ([facility]) Sleep apnea, unspecified type Please place CXR/PFT order. * Telephone Encounter - Nicole Douglas LPN - 12/07/2024 11:23 AM EDT Orders pended to HB documented in this encounter Plan of Treatment Upcoming Encounters Date Type Department Care Team (Late st Contact Info) Description 12/28/2024 8:00 AM EDT Support Visit [facility] [address] [phone] 12/28/2024 9:00 AM EDT Office Visit [facility] [address] [phone] Kelley Garcia MD [address] [address] 03/21/2025 10:20 AM EDT Office Visit [facility] Internal Medicine - Family Medicine [address] [place] [phone] documented as of this encounter Goals Goal Patient Goal Type Associated Problems Recent Progress Patient-Stated? Author Return to home with self care General Yes Evita Luis, RN Note: Evaluation of progress towards goal: Return home with self care and support of spouse if needed. documented as of this encounter Visit Diagnoses Not on filedocumented in this encounter Additional Health Concerns Assessment Noted Time PHQ-9 Depression Total Score: 0 10/19/19 25 4:29 PM EDT A Body Mass Index follow-up plan has been documented for the patient 03/31/2024 4:52 PM EDT documented as of this encounter Care Teams Utility Bagger Relationship Specialty Start Date End Date Louie Moy DO [address] [facility], [facility] [place] [address] PCP - General Family Medicine 05/28/24 documented as of this encounter
--- OUTSIDE RECORDS SUMMARY | 2024-12-15 12:57 | XMS_ITS | Patient Health Record ---
Author Organization [facility] [place] Address [address] [place] [address] Care Team Providers Care Licensed Vocational Nurse Name Role Phone Raji CARDENAS, Madhu Primary Care Provider Jessica vailable Allergies Allergen (clinical drug ingredient) Drug/Non Drug Allergy documented on EMR Reaction Allergy Type Onset Date Status diltiazem Diltiazem HCl EDEMA Drug Allergy Act edu Reason For Referral No Information Medications Medication SIG (Take, Route, Frequency, Duration) Notes Start Date End Date Status DULoxetine HCl 20 MG 1 capsule Orally Tw ice a day for 30 day(s) Unknown Tussionex Pennkinetic ER 10-8 MG/5ML 5 ml as needed Orally every 12 hrs prn for 30 days 09/16/2019 Active Albuterol Sulfate (2.5 MG/3ML) 0.083% 3 ml as needed Inhalation every 8 hrs 08/23/2019 Unknown Gabapentin 100 MG TAKE 1 CAPSULE BY [facility] EVERY 8 HOURS for 30 Active Neurontin 100 MG 1 capsule Orally corazon ry 8 hrs for 30 day(s) 11/03/2019 Active Ventolin HFA 108 (90 Base) MCG/ACT 1 puff as needed Inhalation every 4 hrs for 30 days J44.9 08/23/2019 Unknown Spiriva Respimat 1.25 MCG/ACT 2 puffs Inhalation Once a day for 30 days 08/23/2019 Unknown Symbicort 160-4.5 MCG/ACT 2 puffs Inhala tion Twice a day Unknown Eliquis 5 MG as directed Orally Unknown Levothyroxine Sodium 125 MCG 1 tablet in the morning on an empty stomach Orally Once a day for 30 day(s) Unknown Social History Tobacco Use: Social History Observation Description Date Details (start date - stop date) Former Smoker NA - 07/23/2019 Tobacco Use/Smoking Question Answer Notes Patient is a former smoker When did you stop smoking? 07/23/2019 How long has it been since you last smoked? 1-3 months Problems Problem Type SNOMED Code ICD Code Onset Dates Problem Status W/U Status Risk Notes Problem Chronic obstructive pulmonary disease, unspecified (J44.9) Active confirmed Problem 267759994 Chronic respiratory failure with hypoxia (J96.11) Active confirmed Problem [id number] Dependence on supplemental oxygen (Z99.81) Active confirmed Plan Of Treatment Pending Test Test Name Order Date XR Chest PA and Lateral (Routine CXR) * 09/15/2019 Insurance Providers Payer Name Payer Address Payer Phone Subscriber Number Group Number Insured Name Patient Relationship to Insured Coverage Start Date Coverage End Date [employer] PPO PLUS LOCAL PLAN [address] [place] [phone] [id number] Jessica Garcia Self - patient is the insured Medical (General) History Medical History History ICD Code hx of bronchitis hx of PE irregular heart beat htn thyroid problem hx of pneumonia Surgical History Surgery Date(Month/Year) none in the past year 08/23/2019 Hospitalization History Reason Date(Month/Year) copd exac 07/2019 sob [place], x 1 week 07/2019
--- OUTSIDE RECORDS SUMMARY | 2024-12-15 12:57 | XMS_ITS | Encounter Summary ---
Author Organization [facility] Address [facility]-[id number] [address] [place] [address] Care Team Providers Care Environmental Sustainability Manager Name Role Phone Louie Moy DO Primary Care Provider [phone] Encounter Details Date Type Department Care Team (Late st Contact Info) Description 12/08/2023 Orders Only [facility] Internal Medicine - Family Medicine [address] [place] [address] Louie Moy DO [address], [place] [address] Chronic respiratory failure with hypoxia (CMS-HCC) (Primary Dx) Social History Tobacco Use Types Packs/Day Years Used Date Smoking Tobacco: Every Day Cigarettes Smokeless Tobacco: Never Alcohol Use Standard Drinks/Week Comments Yes 0 (1 standard drink = 0.6 oz pur e alcohol) Occasionally PHQ-2 Answer Date Recorded Total Score 6 11/23/2023 Childcare Answer Date Recorded Childcare Unknown 11/30/2018 Employment Answer Date Recorded Employment Unknown 11/30/2018 Hunger Screening Answer Date Recorded Within the past 12 months we worried whether our food would run out before we got money to buy more. Never True 11/23/2023 Within the past 12 months th e food we bought just didn't last and we didn't have money to get more. Never True 11/23/2023 Purpose - Life Answer Date Recorded Purpose [...] Support Visit [facility] [address] [phone] 12/28/2024 9:00 AM EDT Office Visit [facility] [address] [phone] Kelley Garcia MD [address] [address] 03/21/2025 10:20 AM EDT Office Visit [facility] Internal Medicine - Family Medicine [address] [place] [address] documented as of this encounter Visit Diagnoses Diagnosis Chronic respiratory failure with hypoxia (CMS-HCC)- Primary documented in this encounter Additional Health Concerns Infection Onset Date Last Indicated Resolved Time COVID-19 Rule-Out 05/28/2024 05/28/2024 05/28/2024 6:14 PM EST Assessment Noted Time PHQ-9 Depression Total Score: 6 11/23/19 24 2:58 PM EDT A Body Mass Index follow-up plan has been documented for the patient 08/18/2022 6:46 AM EST documented as of this encounter Care Teams Environmental Sustainability Manager Relationship Specialty Start Date End Date Louie Moy DO [address], [facility] [place] [address] PCP - General Family Medicine 05/28/24 documented as of this encounter
--- OUTSIDE RECORDS SUMMARY | 2024-12-15 12:57 | XMS_ITS | Encounter Summary ---
Author Organization [facility] Address [id number] [address] [place] [address] Care Team Providers Care Associate Doctor Name Role Phone Louie Moy DO Primary Care Provider [phone] Encounter Details Date Type Department Care Team (Late st Contact Info) Description 03/23/2023 [facility]phone [facility] [address] [place] [address] Louie Moy DO [address], [place] [address] Social History Tobacco Use Types Packs/Day Years Used Date Smoking Tobacco: Every Day Cigarettes Smokeless Tobacco: Never Alcohol Use Standard Drinks/Week Comments Yes 0 (1 standard drink = 0.6 oz pur e alcohol) Occasionally PHQ-2 Answer Date Recorded Total Score 0 10/02/2022 Childcare Answer Date Recorded Childcare Unknown 11/30/2018 [...] encounter Miscellaneous Notes * Telephone Encounter - Shellie Granados - 03/23/2023 1:08 PM EDT Jessica's dental office called ([facility]) and would like to possibly do an extraction next week. Pt is on Eliquis. Is there anything she would need to do before they do the extraction? * Telephone Encounter - Louie Moy DO - 03/23/2023 1:08 PM EDT There is nothing special she needs to do. If its just a single extraction I would prefer that she stay on it * Telephone Encounter - Shellie Granados - 03/23/2023 1:08 PM EDT Spoke with Helena Andrews and gave them Dr Moy's message documented in this encounter Plan of Treatment Upcoming Encounters Date Type Department Care Team (Late st Contact Info) Description 12/28/2024 8:00 AM EDT Support Visit [facility] [address] [phone] 12/28/2024 9:00 AM EDT Office Visit [facility] [address] [phone] Kelley Garcia MD [address] [address] 03/21/2025 10:20 AM EDT Office Visit [facility] Internal Medicine - Family Medicine [address] [place] [phone] documented as of this encounter Visit Diagnoses Not on filedocumented in this encounter Additional Health Concerns Infection Onset Date Last Indicated Resolved Time COVID-19 Rule-Out 05/28/2024 05/28/2024 05/28/2024 6:14 PM EST Assessment Noted Time PHQ-9 Depression Total Score: 0 10/03/19 23 11:37 AM EDT A Body Mass Index follow-up plan has been documented for the patient 08/18/2022 6:46 AM EST documented as of this encounter Care Teams Associate Doctor Relationship Specialty Start Date End Date Louie Moy DO [address], [place] [address] PCP - General Family Medicine 05/28/24 documented as of this encounter
--- OUTSIDE RECORDS SUMMARY | 2024-12-15 12:57 | XMS_ITS | Encounter Summary ---
Author Organization [facility] tem Address [id number] [address] [place] [address] Care Team Providers Care Wood Processing Worker Name Role Phone Louie Moy DO Primary Care Provider +1 [phone] Encounter Details Date Type Department Care Team (Late st Contact Info) Description 08/03/2023 Orders Only [facility] - Family Medicine [address] [place] [address] Louie Moy DO [address], [place] [address] Right-sided low back pain without sciatica, unspecified chronicity Social History Tobacco Use Types Packs/Day Years Used Date Smoking Tobacco: Every Day Cigarettes Smokeless Tobacco: Never Alcohol Use Standard Drinks/Week Comments Yes 0 (1 standard drink = 0.6 oz pur e alcohol) Occasionally PHQ-2 Answer Date Recorded Total Score 0 07/30/2023 Childcare Answer Date Recorded Childcare Unknown 11/30/2018 Employment Answer Date Recorded Employment Unknown 11/30/2018 Hunger Screening Answer Date Recorded Within the past 12 months we worried whether our food would run out before we got money to buy more. Never True 07/30/2023 Within the past 12 months th e food we bought just didn't last and we didn't have money to get more. Never True 07/30/2023 Purpose - Life Answer Date Recorded Purpose [...] Support Visit [facility] [address] [address] 12/28/2024 9:00 AM EDT Office Visit [facility] [address] [phone] Kelley Garcia MD [address] [address] 03/21/2025 10:20 AM EDT Office Visit [facility] - Family Medicine [address] [place] [address] documented as of this encounter Procedures Procedure Name Priority Date/Time Associated Diagnosis Comments AMB REFERRAL TO PAIN MANAGEMENT Routine 08/03/2023 Right-sided low back pain without sciatica, unspecified chronicity documented in this encounter Results * Ambulatory referral to Pain Management ([facility]) (08/03/2023) us Louie Moy DO OUTPATIENT REFERRAL ORDERABL ES Final Result MANUALLY TRANSCRIBED RESULTS documented in this encounter Visit Diagnoses Diagnosis Right-sided low back pain without sciatica, unspecified chronicity documented in this encounter Additional Health Concerns Infection Onset Date Last Indicated Resolved Time COVID-19 Rule-Out 05/28/2024 05/28/2024 05/28/2024 6:14 PM EST Assessment Noted Time PHQ-9 Depression Total Score: 0 07/30/19 24 10:45 AM EST A Body Mass Index follow-up plan has been documented for the patient 08/18/2022 6:46 AM EST documented as of this encounter Care Teams Wood Processing Worker Relationship Specialty Start Date End Date Louie Moy DO [address], [facility] [address] PCP - General Family Medicine 05/28/24 documented as of this encounter
--- OUTSIDE RECORDS SUMMARY | 2024-12-15 12:57 | XMS_ITS | Clinical Summary ---
Author Organization [facility] Address [address] [place] [address] Care Team Providers Care Licensed Embalmer Supervisor Name Role Phone Forest Childs MD Unavailable Social History Tobacco Use Types Packs/Day Years Used Date Smoking Tobacco: Never Assessed Comments Unknown Sex and Gender Information Value Date Recorded Sex Assigned at Female 11/10/2019 12:06 AM EDT Legal Sex Female 12:26 PM EDT Gender Identity Female 11/10/2019 12:06 AM EDT Sexual Orientation Straight 11/10/2019 12 :06 AM EDT Plan of Treatment Health Maintenance Due Date Last Done Comments Anxiety Screening 1977 Depression Screening 1977 HIV Screening 1977 Hepatitis C Screening 1977 DTaP,Tdap,Td Vaccine (1 - Tdap) [address] Colonography 2004 Cologuard (FIT-DNA) 2004 Colonoscopy 2004 Colorectal Cancer Screening 2004 Fecal Occult Blood 2004 Sigmoidoscopy 2004 Shingrix Vaccine (1 of 2) 2009 Pneumococcal Vaccine: 50+ (2 of 2 - PCV) 08/08/2020 08/08/2019 Diabetes Screening 11/01/2022 11/02/2019, 0 10/06/2019, 10/05/2019, Additional history exists Covid-19 Vaccine ( - 2023-2 5 season) 2024 Bone Density Screening 2024 Lipid Screening 05/11/2024 05/11/2019 Advance Directive Discussion 06/22/2024 Influenza Vaccine (Season Ended) 2025 RSV Vaccine (1 - 1-dose 75+ series) 2034 Insurance BLUE CARD PPO OOS Care Teams Licensed Embalmer Supervisor Relationship Specialty Start Date End Date Forest Childs MD [address] [place] [phone] Referring Pulmonary Disease 11/04/19
--- OUTSIDE RECORDS SUMMARY | 2024-12-15 12:57 | XMS_ITS | Encounter Summary ---
Author Organization [facility] [facility] tem Address [facility] [id number] [address] [place] [address] Care Team Providers Care Wire Mesh Gate Assembler Name Role Phone Louie Moy Primary Care Provider +1 [phone] Encounter Details Date Type Department Care Team (Late st Contact Info) Description 08/31/2023 Orders Only [facility] - Family Medicine [address] [place] [phone] External, Scanning Provider Social History Tobacco Use Types Packs/Day Years [...] Support Visit [facility] [address] [phone] 12/28/2024 9:00 AM EDT Office Visit [facility] [address] [phone] Kelley Garcia MD [address] [address] 03/21/2025 10:20 AM EDT Office Visit [facility] - Family Medicine [address] [place] [address] documented as of this encounter Procedures Procedure Name Priority Date/Time Associated Diagnosis Comments XR SHOULDER RT MIN 2 VWS Routine 08/29/2023 2:[address] CERVICAL SPINE WO CONT Routine 08/29/2023 2:47 PM EST documented in this encounter Results * X-ray shoulder right minimum 2 views (08/29/2023 2:48 PM EST) Anatomical Region Laterality Modality MSK, Upper Extremities, Shoulder Right Computed Radiography us Scanning Provider External IMG DIAGNOSTIC IMAGIN G ORDERABLES Final Result * CT cervical spine without contrast (08/29/2023 2:47 PM EST) Anatomical Region Laterality Modality MSK, Neuro, Spine, C-spine, Spine Covera N/A Computed Tomography us Scanning Provider External IMG CT ORDERABLES Fin al Result documented in this encounter Visit Diagnoses [...] documented as of this encounter Care Teams Wire Mesh Gate Assembler Relationship Specialty Start Date End Date Louie Moy DO [address] [place] [address] [address] PCP - General Family Medicine 05/28/24 documented as of this encounter
--- OUTSIDE RECORDS SUMMARY | 2024-12-15 12:57 | XMS_ITS | Encounter Summary ---
Author Organization [facility] tem Address [facility] [id number] [address] [place] [address] Care Team Providers Care Bread Room Hand Name Role Phone Louie Moy DO Primary Care Provider [phone] Encounter Details Date Type Department Care Team (Late st Contact Info) Description 07/30/2023 Orders Only [facility] - Family Medicine [address] [place] [address] Louie Moy DO [address], [place] [address] Right-sided low back pain without sciatica, unspecified [...] Support Visit [facility] [address] [address] 12/28/2024 9:00 AM EDT Office Visit [facility] [address] [phone] Kelley Garcia MD [address] [address] 03/21/2025 10:20 AM EDT Office Visit [facility] - Family Medicine [address] [place] [address] documented as of this encounter Procedures Procedure Name Priority Date/Time Associated Diagnosis Comments XR SPINE LUMBAR 2 OR 3 VWS Routine 07/30/2023 Right-sided low back pain without sciatica, unspecified chronicity documented in this encounter Results * X-ray spine lumbar 2 or 3 views (07/30/2023) Anatomical Region Laterality Modality MSK, Neuro, Spine, L-spine N/A [facility] [place] [facility] Louie Moy DO IMG DIAGNOSTIC IMAGING ORDER CASA Final Result documented in this encounter Visit Diagnoses Diagnosis [...] documented as of this encounter Care Teams Bread Room Hand Relationship Specialty Start Date End Date Louie Moy DO [address], [place] [address] PCP - General Family Medicine 05/28/24 documented as of this encounter
--- OUTSIDE RECORDS SUMMARY | 2024-12-15 12:57 | XMS_ITS | Encounter Summary ---
Author [facility] Address [facility] [id number] [address] [place] [address] Care Team Providers Care Network Security Consultant Name Role Phone Louie Moy DO Primary Care Provider [phone] Encounter Details Date Type Department Care Team (Late st Contact Info) Description 03/23/2023 Orders Only [facility] - Family Medicine [address] [place] [address] Louie Moy DO [address], [place] [address] Social History Tobacco Use Types Packs/Day Years [...] Support Visit [facility] [address] [phone] 12/28/2024 9:00 AM EDT Office Visit [facility] [address] [phone] Kelley Garcia MD [address] [address] 03/21/2025 10:20 AM EDT Office Visit [facility] - Family Medicine [address] [place] [address] documented as of this encounter Visit Diagnoses [...] documented as of this encounter Care Teams Network Security Consultant Relationship Specialty Start Date End Date Louie Moy DO [address] [facility] [place] [address] PCP - General Family Medicine 05/28/24 documented as of this encounter
--- OUTSIDE RECORDS SUMMARY | 2024-12-15 12:57 | XMS_ITS | Encounter Summary ---
Author Organization [facility] Address [facility] [id number] [address] [place] [address] Care Team Providers Care Heating And Cooling Technician Name Role Phone Chinmay Louie Hawkins DO Primary Care Provider [phone] Encounter Details Date Type Department Care Team (Late st Contact Info) Description 12/07/2024 Orders Only [facility] [address] [facility] [address] [place] [address] Nicole Douglas LPN SOB (shortness of breath) (Primary Dx) Social History Tobacco Use Types Packs/Day Years Used Date Smoking Tobacco: Former Cigarettes 0.9 46.9 0 06/23/1977 - 05/28/2024 Smokeless Tobacco: Never Alcohol Use Standard Drinks/Week Comments Yes 0 (1 standard drink = 0.6 oz pur e alcohol) Occasionally C Utilities Answer Date Recorded In the past 12 months has [employer], gas, oil, or water company threatened to [...] often do you attend chur ch or evangelical services? Never 05/29/2024 Do you belong to any clubs o r organizations such as shinto groups, unions, fraternal or athletic groups, or [...] Answer Date Recorded Total Score 0 10/18/2024 [facility] - Occupational [...] Recorded Do you need help finding a [facility] and/or a training program? No [...] EDT Support Visit [facility] [address] [place] [phone] 12/28/2024 9:00 AM EDT Office Visit [facility] [address] [phone] Kelley Garcia MD [address] [address] 03/21/2025 10:20 AM EDT Office Visit [facility] - Family Medicine [address] [place] [address] Scheduled Orders Name Type Priority Associated Diagnoses Orde r Schedule X-ray chest 2 views Imaging Routine SOB (shortness of breath) Expected: 12/07/2024, Expires: 12/07/2025 Pulmonary function test Spirometry (Flow Volume Loop) pre/post short acting bronchodilator w/ DLCO (diffusion study) PFT Routine SOB (shortness of breath) Ordered: 12/07/2024 documented as of this encounter Goals Goal Patient Goal Type Associated Problems Recent Progress Patient-Stated? Author Return to home with self care General Yes Evita Luis, RN Note: Evaluation of progress towards goal: Return home with self care and support of spouse if needed. documented as of this encounter Visit Diagnoses Diagnosis SOB (shortness of breath)- Primary Shortness of breath documented in this encounter Additional Health Concerns Assessment Noted Time PHQ-9 Depression Total Score: 0 10/19/19 4:29 PM EDT A Body Mass Index follow-up plan has been documented for the patient 03/31/2024 4:52 PM EDT documented as of this encounter Care Teams Heating And Cooling Technician Relationship Specialty Start Date End Date Louie Moy DO [address] [facility], [facility] [place] [address] PCP - General Family Medicine 05/28/24 documented as of this encounter
--- OUTSIDE RECORDS SUMMARY | 2024-12-15 12:57 | XMS_ITS | Encounter Summary ---
Author Organization [facility] Address [address] [place] [address] Care Team Providers Care Loan Coordinator Name Role Phone Forest Childs MD Unavailable Source Comments In the event this information is protected by the Federal Confidentiality of Alcohol and Drug AbusePatient Records regulations: The Federal rules restrict any use of the information to criminally investigate or prosecute any alcohol or drug abuse patient.[facility] Encounter Details Date Type Department Care Team (Late st Contact Info) Description 2024 [place] [address] Provider, [facility] Medicare Coverage of Physical Exams Social History Tobacco Use Types Packs/Day Years Used Date Smoking Tobacco: Never Assessed Comments Unknown Sex and Gender Information Value Date Recorded Sex Assigned at Female 11/10/2019 12:06 AM EDT Legal Sex Female 12:26 PM EDT Gender Identity Female 11/10/2019 12:06 AM EDT Sexual Orientation Straight 11/10/2019 12 :06 AM EDT documented as of this encounter Plan of Treatment Not on file documented as of this encounter Visit Diagnoses Not on filedocumented in this encounter Care Teams Loan Coordinator Relationship Specialty Start Date End Date Forest Childs MD [address] [place] [phone] Referring Pulmonary Disease 11/04/19 documented as of this encounter
--- OUTSIDE RECORDS SUMMARY | 2024-12-15 12:57 | XMS_ITS | Encounter Summary ---
Author Organization [facility] Address [facility] [id number] [address] [place] [address] Care Team Providers Care Packaging Clerk Name Role Phone RaghavendraLouie villa Ross FRANKLIN Primary Care Provider [phone] Encounter Details Date Type Department Care Team (Late st Contact Info) Description 03/01/2024 [facility]phone [facility] [address] [facility] [phone] Lilly Cameron CMA Social History Tobacco Use Types Packs/Day [...] encounter Miscellaneous Notes * Telephone Encounter - Lilly Cameron CMA - 03/01/2024 8:37 AM EDT ----- Message from Dr. Louie Moy DO sent at 02/29/2024 12:33 PM EDT ----- Her low-dose CT scan did not show any pulmonary nodules but there was a lesion seen on her kidneys and they recommend an ultrasound to evaluate further. I will send in an order for her * Telephone Encounter - Silvia Flores CMA - 03/01/2024 8:37 AM EDT Please send in order to [facility] documented in this encounter Plan of Treatment Upcoming Encounters Date Type Department Care Team (Late st Contact Info) Description 12/28/2024 8:00 AM EDT Support Visit [facility] [address] [place] [phone] 12/28/2024 9:00 AM EDT Office Visit [facility] [address] [phone] Kelley Garcia MD [address] [address] 03/21/2025 10:20 AM EDT Office Visit [facility] - Family Medicine [address] [place] [address] documented as of this encounter Visit Diagnoses Not on filedocumented in this encounter Additional Health Concerns Infection Onset Date Last Indicated Resolved Time COVID-19 Rule-Out 05/28/2024 05/28/2024 05/28/2024 6:14 PM EST Assessment Noted Time PHQ-9 Depression Total Score: 0 02/17/20 24 8:32 AM EDT A Body Mass Index follow-up plan has been documented for the patient 08/18/2022 6:46 AM EST documented as of this encounter Care Teams Packaging Clerk Relationship Specialty Start Date End Date Louie Moy DO [address] [place], [facility] [place] [address] PCP - General Family Medicine 05/28/24 documented as of this encounter
== END 2024-12-15 12:55 | disposition home or self-care (01) ==
LOC: MRI 12:54
PROVIDERS: PCP Family Medicine; Visit Provider Neurological Surgery
DX: G95.9 Disease of spinal cord, unspecified (principal); M50.321 Other cervical disc degeneration at C4-C5 level; M50.322 Other cervical disc degeneration at C5-C6 level; M50.323 Other cervical disc degeneration at C6-C7 level
CPT/HCPCS: 72141

== ENCOUNTER 2025-01-11 19:07 | Emergency (ER) | payer MEDICARE, OTHER, SELFPAY ==
--- OUTSIDE RECORDS SUMMARY | 2024-12-28 08:00 | XMS_ITS | Encounter Summary ---
Author Organization [facility] Address [facility] [id number] [address] [place] [address] Care Team Providers Care State Archivist Name Role Phone Louie Moy DO Primary Care Provider + [phone] Reason for Visit * Reason Comments Testing Encounter Details Date Type Department Care Team (Late st Contact Info) Description 12/28/2024 8:00 AM EDT Support Visit [facility] [address] [phone] SOB (shortness of breath) [R06.02] (Primary Dx) Social History Tobacco Use Types Packs/Day Years Used Date Smoking Tobacco: Every Day Cigarettes Smokeless Tobacco: Never Alcohol Use Standard Drinks/Week Comments Yes 0 (1 standard drink = 0.6 oz pur e alcohol) Occasionally [facility] Utilities Answer Date Recorded In the past 12 months has [employer], gas, oil, or water company threatened to [...] often do you attend chur ch or congregational services? Never 05/29/2024 Do you belong to [...] Answer Date Recorded Total Score 0 10/18/2024 [facility] Occupat ional Health - Occupational Stress [...] Recorded Do you need help finding a [facility] and/or a training program? No 05/28/2024 Hunger Screening Answer Date Recorded Within the past 12 months we worried whether our food would run out before we got money to buy more. Never True 12/28/2024 Within the past 12 months th e food we bought just didn't last and we didn't have money to get more. Never True 12/28/2024 Purpose - Life Answer Date Recorded I have a purpose and direction in my life. Stron gly Agree 05/29/2024 Comments No Sex and Gender Information Value Date Recorded Sex Assigned at Not on file Legal Sex Female 11:21 AM EDT Gender Identity Not on file Sexual Orientation Not on file documented as of this encounter Last Filed Vital Signs Vital Sign Reading Time Taken Comments Blood Pressure - - Pulse - - Temperature - - Respiratory Rate - - Oxygen Saturation - - Inhaled Oxygen Concentration - - Weight 118.5 kg (261 lb 3.2 oz) 12/28/2024 8:12 AM EDT Height 172.7 cm (5' 8 ) 12/28/2024 8:12 AM EDT Body Mass Index 39.72 12/28/2024 8:12 AM EDT documented in this encounter Plan of Treatment Upcoming Encounters Date Type Department Care Team (Late st Contact Info) Description 03/21/2025 10:20 AM EDT Office Visit [facility] - Family Medicine [address] [place] [phone] 03/29/2025 10:45 AM EDT Office Visit [facility] [address] [phone] Kelley Garcia MD [address] [address] documented as of this encounter Goals Goal Patient Goal Type Associated Problems Recent Progress Patient-Stated? Author Return to home with self care General Yes Evita Lusi, RAFAEL Note: Evaluation of progress towards goal: Return home with self care and support of spouse if needed. documented as of this encounter Visit Diagnoses Diagnosis SOB (shortness of breath) [R06.02]- Primary Shortness of breath documented in this encounter Additional Health Concerns Assessment Noted Time PHQ-9 Depression Total Score: 0 10/19/19 25 4:29 PM EDT A Body Mass Index follow-up plan has been documented for the patient 03/31/2024 4:52 PM EDT documented as of this encounter Care Teams State Archivist Relationship Specialty Start Date End Date Louie Moy DO [address] [facility], [place] [address] PCP - General Family Medicine 05/28/24 documented as of this encounter
--- OUTSIDE RECORDS SUMMARY | 2024-12-28 09:00 | XMS_ITS | Encounter Summary ---
Author Organization [employer] Address [facility] [id number] [address] [place] [address] Care Team Providers Care Book Retailer Name Role Phone ChinmayLouie Ross FRANKLIN Primary Care Provider + [phone] Reason for Referral * Diagnostic Imaging (Routine) - Authorized Specialty Diagnoses / Procedures Referred By Contac t Referred To Contact Radiology Diagnoses COPD, moderate (CMS-HCC) Chronic respiratory failure with hypoxia (CMS-HCC) Mixed obstructive and restrictive ventilatory defect Exertional dyspnea Peripheral eosinophilia Procedures CT chest without contrast Kelley Garcia MD [address] [address] Phone: tel: fax: Referral ID Status Reason Start Date Expiration Date V isits Requested Visits Authorized [id number] Authorized 12/28/2024 12/28/2025 1 1 Reason for Visit * Reason Comments Shortness of Breath Both at rest and wit h exertionUsing Albuterol 2-3xs dailyNeeds breztri refill, has been out for a monthOccasionally uses nebulizer2 L nocturnal uses with exertion sometimes she says Cough Daily dry cough Wheezing Often Sleep Apnea DOLORES not on cpap Encounter Details Date Type Department Care Team (Late st Contact Info) Description 12/28/2024 9:00 AM EDT Office Visit [facility] Pul[facility] [address] [phone] Kelley Garcia MD [address] [address] Peripheral eosinophilia (Primary Dx); COPD, moderate (CMS-HCC); Mixed obstructive and restrictive ventilatory defect; Exertional dyspnea; Cigarette nicotine dependence without complication; Acute cough; Other allergic rhinitis Social History Tobacco Use Types Packs/Day Years Used Date Smoking Tobacco: Every Day Cigarettes Smokeless Tobacco: Never Tobacco Cessation:Ready to Q uit: Not Asked Alcohol Use Standard Drinks/Week Comments Yes 0 (1 standard drink = 0.6 oz pur e alcohol) Occasionally C Utilities Answer Date Recorded In the past 12 months has th e electric, gas, oil, or water company threatened [...] often do you attend chur ch or restorationism services? Never 05/29/2024 Do you belong to any clubs o r organizations such as restorationist groups, unions, fraternal or athletic groups, or [...] Answer Date Recorded Total Score 0 10/18/2024 [facility] [place] of Occupat ional Health - Occupational Stress [...] Recorded Do you need help finding a [facility] career center and/or a training program? [...] Sign Reading Time Taken Comments Blood Pressure 132/90 12/28/2024 8:40 AM EDT Pulse 93 12/28/2024 8:40 AM EDT Temperature - - Respiratory Rate - - Oxygen Saturation 88% 12/28/2024 8:40 AM EDT Inhaled Oxygen Concentration - - Weight 118.4 kg (261 lb) 12/28/2024 8:40 AM EDT Height 172.7 cm (5' 8 ) 12/28/2024 8:40 AM EDT Body Mass Index 39.68 12/28/2024 8:40 AM EDT documented in this encounter Progress Notes * Kelley Garcia MD - 12/28/2024 9:00 AM EDT Images from the original note were not included. [facility] [address] [phone] Subjective: Chief Complaint COPD Sleep apnea HPI This is 64-year-old female patient was referred to the pulmonary clinic due to COPD and sleep apnea. Patient reported she has frequent wheezing with cough and shortness of breath. She gets easily winded after walking does not and 100 yd. She was smoker, smokes 1 pack a day for the past 30 years. Currently she takes Breztri with albuterol and use oxygen at 2 L at nighttime. Patient also mentioned that she was had cough for the last couple of weeks, we had difficulty completing the PFT today due to cough. Chest x-ray prior to this visit did not show consolidation or effusion. Most recent CT chest in the chart was done last year and showed emphysematous changes with pleural parenchymal scarring with no lymphadenopathy. Patient mentioned that she uses albuterol 2-3 times daily. She was Breztri refilled since she is out for about a month. She also reported she has DOLORES but not using CPAP machine. Patient mentioned that she was given a BiPAP but she had poor tolerance to the mask and returned the machine shortly after using it for a few months. Review of Systems Constitutional: Positive for activity change. Respiratory: Positive for cough, shortness of breath and wheezing. Allergies: Patient has no known allergies. Past Medical History: Diagnosis Date Bronchitis Chronic back pain See pain clinic Chronic obstructive pulmonary disease ([facility]) 07/30/2023 Class 2 severe obesity due to excess calories with serious comorbidity and body mass index (BMI) of38.0 to 38.9 in adult ([facility]) 02/01/2024 COPD (chronic obstructive pulmonary disease) ([facility]) Depression Eczema GERD (gastroesophageal reflux disease) Hypothyroidism Mixed hyperlipidemia 02/17/2024 Multinodular goiter Pneumonia Pulmonary emboli ([facility]) Teeth decayed Past Surgical History: Procedure Laterality Date APPENDECTOMY EYE SURGERY 02/11/2023 FINGER SURGERY FRACTURE SURGERY HYSTERECTOMY LUMBAR EPIDURAL INJECTION 02/01/2024 LYMPH NODE BIOPSY RADIOFREQUENCY ABLATION NERVES SALIVARY GLAND SURGERY 2015 Benign parotid tumor SHOULDER SURGERY THYROIDECTOMY 2016 ? Social History Tobacco Use Smoking Status Every Day Types: Cigarettes Smokeless Tobacco Never Social History Substance and Sexual Activity Alcohol Use Yes Comment: Occasionally Social History Substance and Sexual Activity Drug Use No Social History Substance and Sexual Activity Sexual Activity Not Currently Partners: Male ? Family History Problem Relation Age of Onset Ovarian cancer Mother Heart disease Father Thyroid disease Sister Asthma Daughter Asthma Daughter Social History Tobacco Use Smoking status: Every Day Types: Cigarettes Smokeless tobacco: Never Substance Use Topics Alcohol use: Yes Comment: Occasionally Objective: Vitals: 12/28/24 0840 BP: 132/90 Pulse: 93 SpO2: (!) 88% Physical Exam Vitals and nursing note reviewed. Constitutional: General: She is awake. Appearance: She is ill-appearing. Cardiovascular: Rate and Rhythm: Normal rate. Pulmonary: Effort: Pulmonary effort is normal. No respiratory distress. Breath sounds: No wheezing. Comments: Bronchospastic Neurological: General: No focal deficit present. Mental Status: She is alert and oriented to person, place, and time. Psychiatric: Behavior: Behavior is cooperative. Most recent Labs, images were reviewed and independently verified. Assessment/Plan: Impression Moderate COPD, poorly controlled with evidence of exacerbation Obstructive sleep apnea, not on Pap therapy. Patient had sleep study at [facility] and PSG data isn't available. She mentioned that she was given BiPAP but returned it due to poor mask tolerance. Moderate mixed obstructive and restrictive ventilatory defect, and this is likely related to COPD and body habitus. Acute on chronic cough due to uncontrolled COPD Nocturnal hypoxemia, likely due to untreated DOLORES, currently using 2 L, using and benefitting. Allergic rhinitis Peripheral eosinophilia Exertional dyspnea, 6 minute walk test was done today and no hypoxemia detected but noted her heartrate went above 120 beats per minute, and this could represent Physical deconditioning Nicotine dependence Physical deconditioning Obesity, BMI [address] chest without contrast Prednisone 40 for 5 days Check alpha-1 antitrypsin level and genotyping Refill Breztri Continue p.r.n. albuterol Order [facility] provider referral Patient was counseled about smoking cessation Patient was advised to stay active. Discussed the plan of care in details with the patient. Follow-up after 2-3 months. Thank you for involving me in this patient's care. Kelley Garcia MD. [facility] Pulmonary / Critical Care 12/28/24. Please note that portions of this note were generated using voice recognition [employer] dictation software. Although every effort was made to ensure the accuracy of this automated territory sales professional, some errors in territory sales professional may have occurred. documented in this encounter Plan of Treatment Upcoming Encounters Date Type Department Care Team (Late st Contact Info) Description 03/21/2025 10:20 AM EDT Office Visit [facility] Internal Medicine - Family Medicine [address] [place] [address] 03/29/2025 10:45 AM EDT Office Visit [facility] [address] [phone] Kelley Garcia MD [address] [address] Scheduled Orders Name Type Priority Associated Diagnoses Orde r Schedule Eupcg-6-daprusolrff Lab Routine COPD, moderate (CMS-HCC) 1 Occurrences starting 12/28/2024 until 12/28/2025 Ilvrw-4-Jpyykerxsvz Phenotype Lab Routine COPD, moderate (CMS-HCC) 1 Occurrences starting 12/28/2024 until 12/28/2025 Respiratory allergy panel Lab Routine Peripheral eosinophilia Acute cough Other allergic rhinitis 1 Occurrences starting 12/28/2024 until 12/28/2025 CT chest without contrast Imaging Routine COPD, moderate (CMS-HCC) Mixed obstructive and restrictive ventilatory defect Exertional dyspnea Peripheral eosinophilia Expected: 12/28/2024, Expires: 12/28/2025 documented as of this encounter Goals Goal Patient Goal Type Associated Problems Recent Progress Patient-Stated? Author Return to home with self care General Yes Evita Luis, RAFAEL Note: Evaluation of progress towards goal: Return home with self care and support of spouse if needed. documented as of this encounter Visit Diagnoses Diagnosis Peripheral eosinophilia- Primary COPD, moderate (CMS-HCC) Mixed obstructive and restrictive ventilatory defect Exertional dyspnea Other dyspnea and respiratory abnormality Cigarette nicotine dependence without complication Acute cough Other allergic rhinitis documented in this encounter Additional Health Concerns Assessment Noted Time PHQ-9 Depression Total Score: 0 10/19/19 25 4:29 PM EDT A Body Mass Index follow-up plan has been documented for the patient 03/31/2024 4:52 PM EDT documented as of this encounter Care Teams Book Retailer Relationship Specialty Start Date End Date Louie Moy DO [address] [facility] [place] [address] PCP - General Family Medicine 05/28/24 documented as of this encounter
[2025-01-11 19:18] VITALS: BP 158/74; PULSE 93; TEMP 36.8; O2SAT 95; BMI 38.0
--- OUTSIDE RECORDS SUMMARY | 2025-01-11 19:27 | XMS_ITS | Encounter Summary ---
Author Organization [facility] Address [address] [facility], [address] [place] [address] Care Team Providers Care Jet Blade Polisher Name Role Phone Caden Beckham MD Primary Care Provider + Reason for Visit * Reason Comments Medication Refill Encounter Details Date Type Department Care Team (Late st Contact Info) Description 04/13/2021 Refill [facility] [address] [place] [address] Madhu Alegria MD [address] [place] [id number] Medication Refill Social History Tobacco Use Types Packs/Day Years Used Date Smoking Tobacco: Former Cigarettes 1 40 0 07/1979 - 07/2019 Smokeless Tobacco: Never Alcohol Use Standard Drinks/Week Comments Yes 1 (1 standard drink = 0.6 oz pur e alcohol) OCCASIONALLY PHQ-2 Answer Date Recorded PHQ-9 Total Score 0 10/24/2020 Comments No Sex and Gender Information Value Date Recorded Sex Assigned at Not on file Legal Sex Female 10:31 AM EDT Gender Identity Not on file Sexual Orientation Not on file documented as of this encounter Plan of Treatment Not on file documented as of this encounter Visit Diagnoses Not on filedocumented in this encounter Care Teams Jet Blade Polisher Relationship Specialty Start Date End Date Caden Beckham MD [facility] [place], [place] [phone] PCP - General Family Medicine 09/15/19 05/06/21 documented as of this encounter
--- OUTSIDE RECORDS SUMMARY | 2025-01-11 19:27 | XMS_ITS | Clinical Summary ---
Author Organization [facility] Address [address], [address] [place] [address] Care Team Providers Care Policy Intern Name Role Phone Unavailable Primary Care Provider Unavailabl e Allergies Active Allergy Reactions Criticality Noted Date Comments Diltiazem Itching,Swelling,Rash Medium 10/12/2019 Pt NOT allergic Medications Multiple Vitamins-Minerals (THERAPEUTIC MULTIVITAMIN-MINERAL S) tablet Take 1 tablet by mouth daily Active diclofenac sodium (VOLTAREN) 1 % GELIndications:Osteo arthritis of right acromioclavicular joint APPLY 2 G TOPICALLY 4 TIMES DAILY 300 g 04/10/20 20 Active tiotropium (SPIRIVA RESPIMAT) 2.5 MCG/ACT AERS inhaler Inhale 2 puffs into the lungs daily 1 Inhaler 2 05/10/20 20 Active Handicap Placard MISC by Does not apply route 1 each 08/08/19 21 Active levalbuterol (XOPENEX) 1.25 MG/3ML nebulizer solution Take 3 mLs by nebulization every 4 hours as needed for Wheezing 90 mL 1 09/01/19 21 Active gabapentin (NEURONTIN) 300 MG capsule Take 1 capsule by mouth 3 times daily for 90 days. 90 capsule 2 10/18/19 21 Active DULoxetine (CYMBALTA) 20 MG extended release capsule TAKE 1 CAPSULE BY MOUTH EVERY DAY AT NIGHT 90 capsule 11/10/19 21 Active levothyroxine (SYNTHROID) 125 MCG tablet TAKE 1 TABLET BY MOUTH EVERY DAY 30 tablet 2 03/14/20 21 Active apixaban (ELIQUIS) 5 MG TABS tablet Take 1 tablet by mouth 2 times daily APPT NEEDED FOR ADDITIONAL REFILL/90DAYS 60 tablet 07/22/19 22 Active dilTIAZem (CARDIZEM CD) 120 MG extended release capsule Take 1 capsule by mouth daily APPT NEEDED FOR ADDITIONAL REFILLS/90DAYS 30 capsule 07/22/19 22 Active Active Problems Problem Noted Date Diagnosed Date Chronic respiratory failure with hypoxia 020 COPD exacerbation 10/06/2019 Acute exacerbation of chroni c obstructive pulmonary disease (COPD) 08/28/2019 Tachycardia with heart rate 100-120 beats per mi nute 08/26/2019 COPD with acute exacerbation 08/05/2019 Carpal tunnel syndrome, unspecified upper limb 0 02/01/2019 Trigger finger 02/01/2019 Postoperative hypothyroidism 02/01/2019 Resolved Problems Problem Noted Date Diagnosed Date Resolved Date Influenza A 08/25/2019 09/25/2019 Immunizations Immunization Administration Dates Next Due Influenza, FLUARIX, FLULAVAL , FLUZONE (age 6 mo+) and AFLURIA, (age 3 y+), Quadv PF, 0.5mL 08/10/2019(),08/09/2019(),08/08/2019(De ferred: - Patient refused flu vaccine. Would not like the vaccine at all.) Pneumococcal, PPSV23, PNEUMO VAX 23, (age 2y+), SC/IM, 0.5mL 08/08/2019 Family History Medical History Relation Name Comments Other Child 1 Heart Attack Child 2 Other Father Cancer Mother Mult Sclerosis Sister Stroke Sister Thyroid Disease Sister Relation Name Status Comments Child 1 Alive BLOOD CLOTS Child 2 Alive Father PACEMAKER Mother CERVICAL CANCER Sister Social History Tobacco Use Types Packs/Day Years Used Date Smoking Tobacco: Former Cigarettes 1 40 0 07/1979 - 07/2019 Smokeless Tobacco: Never Tobacco Cessation:Ready to Q uit: Yes; Counseling Given: Yes Alcohol Use Standard Drinks/Week Comments Yes 1 [...] Sign Reading Time Taken Comments Blood Pressure 108/58 11/22/2020 12:30 PM EDT Pulse 85 11/22/2020 12:30 PM EDT Temperature 36.3 C (97.3 F) 11/22/2020 12:09 PM EDT Respiratory Rate 29 11/22/2020 12:40 PM EDT Oxygen Saturation 100% 11/22/2020 12:40 PM EDT Inhaled Oxygen Concentration - - Weight 104.3 kg (230 lb) 11/22/2020 12:09 PM EDT Height 175.3 cm (5' 9 ) 11/22/2020 12:09 PM EDT Body Mass Index 33.97 11/22/2020 12:09 PM EDT Plan of Treatment Not on file [place] Advance Directives * Full Code (Latest Code Status on File) Date Activated Date Inactivated Comments 10/05/2019 2:43 PM 10/08/2019 2:49 PM * Full Code Date Activated Date Inactivated Comments 08/27/2019 11:11 AM 08/29/2019 9:40 PM * Full Code Date Activated Date Inactivated Comments 08/25/2019 6:05 PM 08/27/2019 11:11 AM * Full Code Date Activated Date Inactivated Comments 08/25/2019 5:50 PM 08/25/2019 6:05 PM * Full Code Date Activated Date Inactivated Comments 08/05/2019 4:58 PM 08/10/2019 8:24 PM
--- OUTSIDE RECORDS SUMMARY | 2025-01-11 19:27 | XMS_ITS | Encounter Summary ---
Author Organization [facility] Address [facility] [place]-[id number] [address] [place] [address] Care Team Providers Care Medical Supply Technician Name Role Phone Louie Moy DO Primary Care Provider [phone] Encounter Details Date Type Department Care Team (Late st Contact Info) Description 08/03/2023 Orders Only [facility] Internal Medicine - Family Medicine [address] [place] [address] Louie Moy DO [address], [place] [address] Right-sided low back pain without sciatica, unspecified [...] Medicine - Family Medicine [address] [place] [address] 03/29/2025 10:45 AM EDT Office Visit [facility] [address] [phone] Kelley aGrcia MD [address] [address] documented as of this encounter Procedures Procedure [...] Time PHQ-9 Depression Total Score: 0 07/30/19 10:45 AM EST A Body Mass Index follow-up plan has been documented for the patient 08/18/2022 6:46 AM EST documented as of this encounter Care Teams Medical Supply Technician Relationship Specialty Start Date End Date Louie Moy DO [address], [place] [address] PCP - General Family Medicine 05/28/24 documented as of this encounter
--- OUTSIDE RECORDS SUMMARY | 2025-01-11 19:27 | XMS_ITS | Encounter Summary ---
Author Organization [facility] Address [facility] [place]-[id number] [address] [place] [address] Care Team Providers Care Coil Cutter Name Role Phone Louie Moy DO Primary Care Provider [phone] Encounter Details Date Type Department Care Team (Late st Contact Info) Description 03/23/2023 [facility] [address] [place] [address] Louie Moy DO [address], [place] [address] Social History Tobacco Use Types Packs/Day Years [...] 1:08 PM EDT Jessica's dental office called ([facility]) and would like to possibly do [...] - Family Medicine [address] [place] [address] 03/29/2025 10:45 AM EDT Office Visit [facility] [address] [phone] Kelley Garcia MD [address] [address] documented as of this encounter Visit Diagnoses [...] documented as of this encounter Care Teams Coil Cutter Relationship Specialty Start Date End Date Louie Moy DO [address], [place] [address] PCP - General Family Medicine 05/28/24 documented as of this encounter
--- OUTSIDE RECORDS SUMMARY | 2025-01-11 19:27 | XMS_ITS | Encounter Summary ---
Author Organization [facility] Address [facility] [id number] [address] [place] [address] Care Team Providers Care Line Ordering Clinician Name Role Phone Louie Moy DO Primary Care Provider [phone] Encounter Details Date Type Department Care Team (Late st Contact Info) Description 12/08/2023 Orders Only [facility] Internal Medicine - Family Medicine [address] [place] [address] Louie Moy DO [address], [place] [address] Chronic respiratory failure with hypoxia (CMS-HCC) (Primary [...] Medicine - Family Medicine [address] [place] [address] 03/29/2025 10:45 AM EDT Office Visit [facility] [address] [phone] Kelely Garcia MD [address] [address] documented as of this encounter Visit Diagnoses Diagnosis Chronic respiratory failure with hypoxia (CMS-HCC)- Primary documented in this encounter Additional Health Concerns Infection Onset Date Last Indicated Resolved Time COVID-19 Rule-Out 05/28/2024 05/28/2024 05/28/2024 6:14 PM EST Assessment Noted Time PHQ-9 Depression Total Score: 6 11/23/19 2:58 PM EDT A Body Mass Index follow-up plan has been documented for the patient 08/18/2022 6:46 AM EST documented as of this encounter Care Teams Line Ordering Clinician Relationship Specialty Start Date End Date Louie Moy DO [address], [facility] [place] [place] [address] PCP - General Family Medicine 05/28/24 documented as of this encounter
--- OUTSIDE RECORDS SUMMARY | 2025-01-11 19:27 | XMS_ITS | Encounter Summary ---
Author Organization [employer] Address [facility]-[id number] [address] [place] [address] Care Team Providers Care Vehicle Mechanic Name Role Phone Louie Moy DO Primary Care Provider [phone] Encounter Details Date Type Department Care Team (Late st Contact Info) Description 03/23/2023 [facility] [address] [place] [phone] Louie Moy DO [address], [facility] [place] [address] Social History Tobacco Use Types Packs/Day Years [...] Description 03/21/2025 10:20 AM EDT [facility] [address] [place] [phone] 03/29/2025 10:45 AM EDT Office Visit [facility] [address] [phone] Kelley Garcia MD [address] [address] documented as of this encounter Visit Diagnoses Not on filedocumented in this encounter Additional Health Concerns Infection Onset Date Last Indicated Resolved Time COVID-19 Rule-Out 05/28/2024 05/28/2024 05/28/2024 6:14 PM EST Assessment Noted Time PHQ-9 Depression Total Score: 0 10/03/19 11:37 AM EDT A Body Mass Index follow-up plan has been documented for the patient 08/18/2022 6:46 AM EST documented as of this encounter Care Teams Vehicle Mechanic Relationship Specialty Start Date End Date Louie Moy DO [address], [facility] [place] [address] PCP - General Family Medicine 05/28/24 documented as of this encounter
--- OUTSIDE RECORDS SUMMARY | 2025-01-11 19:27 | XMS_ITS | Patient Health Record ---
Author Organization [facility] Address [address] [place] [address] Care Team Providers Care Veterinary Medical Officer Name Role Phone Raji CARDENAS, Madhu Primary [...] Gabapentin 100 MG TAKE 1 CAPSULE BY [facility] EVERY 8 HOURS for 30 Active Neurontin [...] pulmonary disease, unspecified (J44.9) Active confirmed Problem [id number] Chronic respiratory failure with hypoxia (J96.11) Active confirmed Problem [id number] Dependence on supplemental oxygen (Z99.81) Active confirmed Plan Of Treatment Pending Test Test Name Order Date XR Chest PA and Lateral (Routine CXR) * 09/15/2019 Insurance Providers Payer Name Payer Address Payer Phone Subscriber Number Group Number Insured Name Patient Relationship to Insured Coverage Start Date Coverage End Date [employer] PPO PLUS LOCAL PLAN [address] [place] [phone] [id number] Jessica Garcia Self - patient is the insured Medical (General) History Medical History History ICD Code hx of bronchitis hx of PE irregular heart beat htn thyroid problem hx of pneumonia Surgical History Surgery Date(Month/Year) none in the past year 08/23/2019 Hospitalization History Reason Date(Month/Year) copd exac 07/2019 sob [place], x 1 week 07/2019
--- OUTSIDE RECORDS SUMMARY | 2025-01-11 19:27 | XMS_ITS | Clinical Summary ---
Author Organization [employer] tem Address [id number] [address] [place] [address] Care Team Providers Care Fbi Field Agent Name Role Phone Chinmay Louie Hawkins DO Primary Care Provider [phone] Allergies No known active allergies Medications omeprazole [...] nebulizer solutionIndication s:Chronic respiratory failure with hypoxia ([facility]) Inhale 3 mL (2.5 mg total) by nebulization every 6 (six) hours as needed for wheezing. 75 mL 2 05/11/20 23 Active MIEBO 100 % drops 11/21/19 24 Active liothyronine (CYTOMEL) 5 MCG tabletIndications: Postoperative hypothyroidism Take 1 tablet (5 mcg total) by mouth in the morning. 30 tablet 11 12/23/19 24 Active levothyroxine (SYNTHROID) 125 MCG tablet Take 1 tablet (125 mcg total) by mouth in the morning. 02/25/20 24 Active cetirizine (ZyrTEC) 10 mg tablet TAKE 1 TABLET (10 MG TOTAL) BY MOUTH IN THE MORNING 90 tablet 1 03/11/20 24 Active baclofen (LIORESAL) 10 mg tablet 05/26/20 24 Active dilTIAZem CD (CARDIZEM CD) 120 mg 24 hr capsuleIndications :Paroxysmal atrial fibrillation ([facility]) TAKE 1 CAPSULE (120 MG TOAL) BY [...] :Chronic obstructive pulmonary disease, unspecified COPD type ([facility]) Inhale 2 puffs in the morning and 2 puffs before bedtime. 5.9 g 10/19/19 25 Active predniSONE (DELTASONE) 20 mg tablet Take 2 tablets (40 mg total) by mouth in the morning for 5 days. 10 tablet 12/29/19 25 Active benzonatate (TESSALON PERLES) 100 mg capsuleIndications :Acute cough Take 1 capsule (100 mg total) by mouth 3 (three) times a day as needed for cough. 42 capsule 12/29/19 25 Active albuterol (PROVENTIL HFA;VENTOLIN HFA) 90 mcg/actuation inhalerIndications :Acute exacerbation of chronic obstructive pulmonary disease (COPD) ([facility]) Inhale 2 puffs 4 (four) times a day. 18 g 11 12/29/19 25 Active budesonide-glycopy r-formoterol (BREZTRI AEROSPHERE) 160-9-4.8 mcg/actuation HFA aerosol inhalerIndications :Acute exacerbation of chronic obstructive pulmonary disease (COPD) ([facility]) Inhale 2 puffs in the morning and at bedtime. 31.1 g 1 12/29/19 25 Active albuterol (PROVENTIL HFA;VENTOLIN HFA) 90 mcg/actuation inhalerIndications :Acute exacerbation of chronic obstructive pulmonary disease (COPD) ([facility]) Inhale 2 puffs 4 (four) times a day. 18 g 11 11/23/19 24 025 Discontin ued(Reord er) budesonide-glycopy r-formoterol (BREZTRI AEROSPHERE) 160-9-4.8 mcg/actuation HFA aerosol inhalerIndications :Acute exacerbation of chronic obstructive pulmonary disease (COPD) ([facility]) Inhale 2 puffs in the morning and at bedtime. 31.1 g 1 01/21/20 24 025 Discontin ued(Reord er) gabapentin (NEURONTIN) 300 mg capsule Take by mouth. 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 12/28/2024 Exertional dyspnea 12/28/2024 Peripheral eosinophilia 12/28/2024 Acute cough 12/28/2024 Other allergic rhinitis 12/28/2024 COPD exacerbation 05/28/2024 Mixed hyperlipidemia 02/17/2024 Paroxysmal atrial fibrillation 02/01/2024 Pedal edema 02/01/2024 COPD, moderate 07/30/2023 Cigarette nicotine dependence without complicati on 10/02/2022 Stress incontinence 01/01/2022 Overview (01/01/2022): 01/01/22: PVR [...] of 38.0 to 38.9 in adult 02/01/2024 Acute on chronic respiratory failure with hypercapnia 12/27/2021 12/22/2022 Acute exacerbation of chroni c obstructive pulmonary disease (COPD) 09/26/2021 12/22/2022 Acute on chronic respiratory failure with hypoxia 10/07/2019 09/01/2024 Acute exacerbation of chroni c obstructive pulmonary disease 08/05/2019 12/22/2022 Pneumonia 12/22/2022 Encounters Date Type Department Care Team Description 01/05/2025 Orders Only [facility] - Family Medicine [address] [place] [address] Louie Moy DO 12/29/2024 Documentation [facility] Pul[facility]/Sleep Medicine [address] [place] [phone] Nicole Douglas LPN 12/28/2024 9:00 AM EDT Office Visit [facility] [address] [place] [phone] Kelley Garcia MD Peripheral eosinophilia (Primary Dx); COPD, moderate ([facility]); Mixed obstructive and restrictive ventilatory defect; Exertional dyspnea; Cigarette nicotine dependence without complication; Acute cough; Other allergic rhinitis 12/28/2024 8:00 AM EDT Support Visit [facility] [address] [place] [phone] SOB (shortness of breath) [R06.02] (Primary Dx) 12/28/2024 Orders Only [facility] [address] [place] [phone] Nicole Douglas LPN Chronic obstructive pulmonary disease, unspecified COPD type ([facility]) (Primary Dx); Acute exacerbation of chronic obstructive pulmonary disease (COPD) ([facility]) 12/28/2024 Travel 12/07/2024 Orders Only [facility] [address] [phone] Nicole Douglas LPN SOB (shortness of breath) (Primary Dx) 12/07/2024 Telephone [facility] [address] [phone] Lucas Whitlock 11/18/2024 Orders Only [facility] Internal Medicine - Family Medicine [address] [place] [phone] Ref Prov, Not In System 10/18/2024 4:30 PM EDT Office Visit [facility] - Family Medicine [address] [place] [phone] Louie Moy, DO COPD exacerbation ([facility]) (Primary Dx); Urinary frequency; Chronic obstructive pulmonary disease, unspecified COPD type ([facility]); Vagina, candidiasis 10/18/2024 Travel from Last 3 Months Immunizations Immunization Administration Dates Next Due Pneumococcal Polysaccharide 08/08/2019 Family History Medical History Relation Name Comments Asthma Daughter 1 Kathryn Asthma Daughter 2 Donna Heart disease Father Ovarian cancer Mother Hytito Thyroid disease Sister Relation Name Status Comments [...] Recorded In the past 12 months has [employer] gas, oil, or water company threatened to [...] often do you attend chur ch or episcopal services? Never 05/29/2024 Do you belong to any clubs o r organizations such as spiritism groups, unions, fraternal or athletic groups, or [...] Answer Date Recorded Total Score 0 10/18/2024 [facility] - Occupational [...] Recorded Do you need help finding a [facility] career center and/or a training program? No [...] Pulse 93 12/28/2024 8:40 AM EDT Temperature 36.7 C (98 F) 10/18/2024 4:29 PM EDT Respiratory Rate 24 10/18/2024 4:29 PM EDT Oxygen Saturation 88% 12/28/2024 8:40 AM EDT Inhaled Oxygen Concentration - - Weight 118.4 kg (261 lb) 12/28/2024 8:40 AM EDT Height 172.7 cm (5' 8 ) 12/28/2024 8:40 AM EDT Body Mass Index 39.68 12/28/2024 8:40 AM EDT Plan of Treatment Upcoming Encounters Date Type Department Care Team (Late st Contact Info) Description 03/21/2025 10:20 AM EDT Office Visit [facility] - Family Medicine [address] [place] [address] 03/29/2025 10:45 AM EDT Office Visit [facility] [address] [phone] Kelley Garcia MD [address] [address] Health Maintenance Due Date Last Done Comments Medicare Annual Wellness Visit 1959 Tobacco Counseling 1959 Mammogram 1999 Zoster (Shingles) Vaccine (1 of 2) 2009 Influenza Vaccine 02/20/2025 Adult BMI Follow Up Plan 03/31/2025 03/31/2024 DTaP,Tdap and Td Vaccines (1 - Tdap) 06/22/2025 Postponed from 03/05 (Patient Refused) Depression Screening 10/18/2025 10/18/2024 Fall Risk Screening 10/18/2025 10/18/2024 Adult BMI Screening 12/28/2025 12/28/2024 Tobacco Screening 12/28/2025 12/28/2024 Colon Cancer Screening 3 Yea kyra Cologuard 02/25/2027 02/26/2024 Goals Goal Patient Goal Type Associated Problems Recent Progress Patient-Stated? Author Return to home with self care General Yes Evita Luis, RN Note: Evaluation of progress towards goal: Return home with self care and support of spouse if needed. Medical Devices Not on file Procedures Procedure Name Priority Date/Time Associated Diagnosis Comments PULMONARY FUNCTION TEST Routine 12/28/2024 8:30 AM EDT SOB (shortness of breath) MR LUMBAR SPINE WO CONT Routine 11/07/2024 6:49 AM EDT POCT INFLUENZA A/INFLUENZA B/SARS-COV-2 VERITOR Routine 10/18/2024 5:12 PM EDT COPD exacerbation ([facility]) POCT URINALYSIS DIPSTICK ONLY Routine 10/18/2024 5:07 PM EDT Urinary frequency COLOGUARD NON-[facility] Routine 02/26/2024 11:55 AM EDT Screen for colon cancer from Last 3 Months or Most Recently Relevant to Health Maintenance Results * (ABNORMAL) Pulmonary function test Spirometry (Flow Volume Loop) pre/post short acting bronchodilator w/ DLCO (diffusion study) (12/28/2024 8:30 AM EDT) FEV1 52 liters MANUALLY TRANSCRIBED RESULTS FVC 52 liters MANUALLY TRANSCRIBED RESULTS FEV1/FVC 78 % MANUALLY TRANSCRIBED RESULTS DLCO 57 ml/mmHg sec MANUALLY TRANSCRIBED RESULTS Impressions MANUALLY TRANSCRIBED RESULTS - 12/28/2024 8:30 AM EDT Date of Testing: December 28, 2024 Quality of Data: The patient's efforts are acceptable and reproducible. Test Performed: Pulmonary Function Test Spirometry Findings: FVC is moderately reduced at 1.81 L, 50% predicted without significant post bronchodilator response at +4%. FEV1 is moderately reduced at 1.41 L, 50% predicted with significant post bronchodilator at +15% FEV1/FVC is 78. Lung Volumes: Vital capacity is moderately to severely reduced at 50% Diffusion Capacity: DLCO moderately reduced at 57% Conclusions: This PFT is consistent with mixed moderate obstructive and restrictive ventilatory defect, and this could be due to COPD and body habitus. Clinical correlation advised Kelley Garcia MD [facility] / Critical Care 12/28/24 us Sera Coyle MD PFT ORDERABLES Edited Result - Final MANUALLY TRANSCRIBED RESULTS * MR lumbar spine without contrast (11/07/2024 [...] TRANSCRIBED RESULTS Swab 10/18/2024 5:12 PM EDT us Louie Moy DO POINT OF CARE TEST ORDERABLE S Final Result MANUALLY TRANSCRIBED RESULTS * POCT urinalysis dipstick only (10/18/2024 5:07 PM EDT) External Poct Urine Color yellow MANUALLY TRANSCRIBED RESULTS External Poct Urine Appearance clear MANUALLY TRANSCRIBED RESULTS External Poct Urine Glucose Negative MANUALLY TRANSCRIBED RESULTS External Poct Urine Bilirubin Negative MANUALLY TRANSCRIBED RESULTS External Poct Urine Ketones Negative MANUALLY TRANSCRIBED RESULTS External Poct Urine Specific [place] 1.020 MANUALLY TRANSCRIBED RESULTS External Poct Urine Blood Trace MANUALLY TRANSCRIBED RESULTS External Poct Urine Ph 6.5 MANUALLY TRANSCRIBED RESULTS External Poct Urine Protein 3+ MANUALLY TRANSCRIBED RESULTS Comment:30 External Poct Urine Urobilinogen 0.2 MANUALLY TRANSCRIBED RESULTS External Poct Urine Nitrite Negative for Enterobius vermicularis MANUALLY TRANSCRIBED RESULTS External Poct Urine Leukocyte Esterase Negative MANUALLY TRANSCRIBED RESULTS Urine 10/18/2024 5:07 PM EDT Louie Moy DO POINT OF CARE TEST ORDERABLE S Final Result MANUALLY TRANSCRIBED RESULTS * Cologuard [facility] (02/26/2024 11:55 AM EDT) EXTERNAL COLOGUARD Negative Negative 2023 1:23 PM EDT [facility] (CLIA #:[id number]) Comment: NEGATIVE TEST RESULT. A negative Cologuard [...] (Evita Dong al, N Engl J Med 2014;370(14):5558-4531) The normal value (reference range) for this assay is negative. COLOGUARD RE-SCREENING RECOMMENDATION: Periodic colorectal cancer screening is an important part of preventive healthcare for asymptomatic individuals at average risk for colorectal cancer. Following a negative Cologuard result, the [place] Cancer Society and U.S. Multi-Society Task Force screening guidelines recommend a Cologuard re-screening interval of 3 years. References: [place] Cancer Society Guideline for Colorectal Cancer Screening: https://www.cancer.org/cancer/cwwur-ifhtlh-mmoshi/nzyjzgrxl-uiadncwdt-ldbzihw/ac s-rec ommendations.html.; Marco Antonio DK, Skip CR, Gardenia DiaK, Colorectal Cancer Screening: Recommendations for Physicians and Patients from the U.S. Multi-Society Task Force on Colorectal Cancer Screening , Am J Gastroenterology 2017; 112:5368-5713. TEST DESCRIPTION: Composite algorithmic analysis of stool [...] (Evita Dong al, N Engl J Med 2014;370(14):9357-6433.) Cologuard may produce a false negative or false positive result (no colorectal cancer or precancerous polyp present at colonoscopy follow up). A negative Cologuard test result does not guarantee the absence of CRC or advanced adenoma (pre-cancer). The current Cologuard screening interval is every 3 years. ([place] Cancer Society and U.S. Multi-Society Task Force). Cologuard performance data in a 10,000 patient pivotal study using colonoscopy as the reference method can be accessed at the following location: www.[employer]/results. Additional description of the Cologuard test process, warnings and precautions can be found at www.colTissue Genesisrd.com. Stool specimen (specimen) Rectum structure / Unknown 02/26/2024 11:55 AM EDT 02/27/2024 7:15 AM EDT Louie Moy DO LAB ORDERABLES Final Result [facility] (CLIA #:[id number]) [place] [address], [place] [phone] from Last 3 Months or Most Recently Relevant to Health Maintenance Insurance MEDICARE COMMERCIAL Advance Directives * Full Code (Latest Code Status on File) Date Activated Date Inactivated Comments 05/28/2024 9:09 PM 05/30/2024 5:34 PM * Full Code Date Activated Date Inactivated Comments 12/26/2021 6:09 PM 12/29/2021 3:22 PM * Full Code Date Activated Date Inactivated Comments 09/26/2021 1:46 PM 09/27/2021 12:14 PM Care Teams Fbi Field Agent Relationship Specialty Start Date End Date Louie Moy DO [address], [facility] [place] [address] PCP - General Family Medicine 05/28/24
--- OUTSIDE RECORDS SUMMARY | 2025-01-11 19:27 | XMS_ITS | Encounter Summary ---
Author Organization [facility] tem Address [id number] [address] [place] [address] Care Team Providers Care Wall Mirror Department Supervisor Name Role Phone Louie Moy DO Primary Care Provider [phone] Encounter Details Date Type Department Care Team (Late st Contact Info) Description 07/30/2023 Orders Only [facility] Internal [facility] - Family Medicine [address] [place] [address] Louie Moy DO [address], [place] [address] Right-sided low back pain without sciatica, unspecified [...] Medicine - Family Medicine [address] [place] [address] 03/29/2025 10:45 AM EDT Office Visit [facility] [address] [phone] Kelley Garcia MD [address] [address] documented as of this encounter Procedures Procedure Name Priority Date/Time Associated Diagnosis Comments XR SPINE LUMBAR 2 OR 3 VWS Routine 07/30/2023 Right-sided low back pain without sciatica, unspecified chronicity documented in this encounter Results * X-ray spine lumbar 2 or 3 views (07/30/2023) Anatomical Region Laterality Modality MSK, Neuro, Spine, L-spine N/A [facility] [place] [facility] us Louie Moy DO [facility] ORDER CASA Final Result documented [...] documented as of this encounter Care Teams Wall Mirror Department Supervisor Relationship Specialty Start Date End Date Louie Moy DO [address], [place] [address] PCP - General Family Medicine 05/28/24 documented as of this encounter
--- OUTSIDE RECORDS SUMMARY | 2025-01-11 19:27 | XMS_ITS | Encounter Summary ---
Author Organization [facility] Address [address] [facility], [address] [place] [address] Care Team Providers Care Critical Care Paramedic Name Role Phone Caden Beckham MD Primary Care Provider + Reason for Visit * Reason Comments Medication Refill Encounter Details Date Type Department Care Team (Late st Contact Info) Description 04/14/2021 Refill [facility] [address] [place] [address] Caden Beckham MD [address] [place] [address] Medication Refill Social History Tobacco Use Types [...] on filedocumented in this encounter Care Teams Critical Care Paramedic Relationship Specialty Start Date End Date Caden Beckham MD [facility] [place], [place] [phone] PCP - General Family Medicine 09/15/19 05/06/21 documented as of this encounter
--- OUTSIDE RECORDS SUMMARY | 2025-01-11 19:28 | XMS_ITS | Encounter Summary ---
Author Organization [facility] tem Address [id number] [address] [place] [address] Care Team Providers Care Forging Die Finisher Name Role Phone ChinmayLouie Ross FRANKLIN Primary Care Provider [phone] Encounter Details Date Type Department Care Team (Late st Contact Info) Description 11/18/2024 Orders Only [facility] Internal Medicine - Family Medicine [address] [place] [address] Ref Prov, [place] [address] Social History Tobacco Use Types Packs/Day Years Used Date Smoking Tobacco: Former Cigarettes 0.9 46.9 0 06/23/1977 - 05/28/2024 Smokeless Tobacco: Never Alcohol Use Standard Drinks/Week Comments Yes 0 (1 standard drink = 0.6 oz pur e alcohol) Occasionally C Utilities Answer Date Recorded In the past 12 months has [employer], gas, oil, or water [employer] threatened to shut off services in your [...] often do you attend chur ch or gnosticist services? Never 05/29/2024 Do you belong to [...] Answer Date Recorded Total Score 0 10/18/2024 [facility] - Occupational [...] Recorded Do you need help finding a [facility] career center and/or a training program? No [...] Medicine - Family Medicine [address] [place] [address] 03/29/2025 10:45 AM EDT Office Visit [facility] [address] [phone] Kelley Garcia MD [address] [address] documented as of this encounter Goals Goal [...] documented as of this encounter Care Teams Forging Die Finisher Relationship Specialty Start Date End Date Louie Moy DO [address] [facility], [place] [address] PCP - General Family Medicine 05/28/24 documented as of this encounter
--- OUTSIDE RECORDS SUMMARY | 2025-01-11 19:28 | XMS_ITS | Encounter Summary ---
Author Organization [employer] tem Address [id number] [address] [place] [address] Care Team Providers Care Welt Maker Name Role Phone RaghavendraLouie villa Ross FRANKLIN Primary Care Provider [phone] Encounter Details Date Type Department Care Team (Late st Contact Info) Description 08/25/2022 [facility] [address] [place] [phone] Diamond Wyatt CMA Social History Tobacco Use [...] or turn them back in to the [employer] company. If you could call [facility] and [...] Medicine - Family Medicine [address] [place] [phone] 03/29/2025 10:45 AM EDT Office Visit [facility] [address] [phone] Kelley Garcia MD [address] [address] documented as of this encounter Visit Diagnoses Not on filedocumented in this encounter Additional Health Concerns Infection Onset Date Last Indicated Resolved Time COVID-19 Rule-Out 05/28/2024 05/28/2024 05/28/2024 6:14 PM EST Assessment Noted Time PHQ-9 Depression Total Score: 0 08/12/19 23 1:59 PM EST A Body Mass Index follow-up plan has been documented for the patient 08/18/2022 6:46 AM EST documented as of this encounter Care Teams Welt Maker Relationship Specialty Start Date End Date Louie Moy DO [address] [facility], [place] [address] PCP - General Family Medicine 05/28/24 documented as of this encounter
--- OUTSIDE RECORDS SUMMARY | 2025-01-11 19:28 | XMS_ITS | Encounter Summary ---
Author [facility] Address [id number] [address] [place] [address] Care Team Providers Care Crutcher Helper Name Role Phone RaghavendraLouie villa Ross FRANKLIN Primary Care Provider Encounter Details Date Type Department Care Team (Late st Contact Info) Description 03/01/2024 [facility] [address] [facility] [place] [phone] Lilly Cameron CMA Social History Tobacco Use Types Packs/Day Years Used Date Smoking Tobacco: Every Day Cigarettes 0.9 47.6 Started: 06/23/1977 Smokeless Tobacco: Never Alcohol Use [...] Medicine - Family Medicine [address] [place] [address] 03/29/2025 10:45 AM EDT Office Visit [facility] [address] [phone] Kelley Garcia MD [address] [address] documented as of this encounter Visit Diagnoses [...] documented as of this encounter Care Teams Crutcher Helper Relationship Specialty Start Date End Date Louie Moy DO [address], [facility] [place] [address] PCP - General Family Medicine 05/28/24 documented as of this encounter
--- OUTSIDE RECORDS SUMMARY | 2025-01-11 19:28 | XMS_ITS | Encounter Summary ---
Author [facility] Address [id number] [address] [place] [address] Care Team Providers Care Writer Technical Publications Name Role Phone Louie Moy DO Primary Care Provider [phone] Encounter Details Date Type Department Care Team (Late st Contact Info) Description 01/05/2025 Orders Only [facility] - Family Medicine [address] [place] [address] Louie Moy DO [address], [place] [address] Social History Tobacco Use Types Packs/Day Years Used Date Smoking Tobacco: Every Day Cigarettes Smokeless Tobacco: Never Alcohol Use Standard Drinks/Week Comments Yes 0 (1 standard drink = 0.6 oz pur e alcohol) Occasionally [facility] Utilities Answer Date Recorded In the past 12 months has [employer], gas, oil, or water [employer] threatened to shut off services in your [...] often do you attend chur ch or jain services? Never 05/29/2024 Do you belong to any clubs o r organizations such as holiness groups, unions, fraternal or athletic groups, or [...] Answer Date Recorded Total Score 0 10/18/2024 [facility] - Occupational Stress Questionnaire Answer Date Recorded [...] Recorded Do you need help finding a [facility] career center and/or a training program? [...] - Family Medicine [address] [place] [address] 03/29/2025 10:45 AM EDT Office Visit [facility] [address] [phone] Kelley Garcia MD [address] [address] documented as of this encounter Goals Goal Patient Goal Type Associated Problems Recent Progress Patient-Stated? Author Return to home with self care General Yes Evita Luis RN Note: Evaluation of progress towards goal: [...] documented as of this encounter Care Teams Writer Technical Publications Relationship Specialty Start Date End Date Louie Moy DO [address] [facility] [place] [place] [address] PCP - General Family Medicine 05/28/24 documented as of this encounter
--- OUTSIDE RECORDS SUMMARY | 2025-01-11 19:28 | XMS_ITS | Encounter Summary ---
Author Organization [facility] [employer] Sys tem Address [facility]-[id number] [address] [place] [address] Care Team Providers Care Heavy Equipment Engine Mechanic Name Role Phone Chinmay Louie Ross FRANKLIN Primary Care Provider +1 [phone] Encounter Details Date Type Department Care Team (Late st Contact Info) Description 12/29/2024 Documentation [facility] Pulmonary/Sleep Medicine [address] [facility] [address] [place] [address] Nicole Douglas LPN Social History Tobacco Use Types Packs/Day Years Used Date Smoking Tobacco: Every Day Cigarettes Smokeless Tobacco: Never Alcohol Use Standard Drinks/Week Comments Yes 0 (1 standard drink = 0.6 oz pur e alcohol) Occasionally C Utilities Answer Date Recorded In the past 12 months has e electric, gas, oil, or water company [...] often do you attend chur ch or shinto services? Never 05/29/2024 Do you belong to any clubs o r organizations such as bahai groups, unions, fraternal or athletic groups, or [...] Answer Date Recorded Total Score 0 10/18/2024 [facility] - Occupational Stress Questionnaire Answer Date [...] Recorded Do you need help finding a l al career center and/or a training program? No [...] a purpose and direction in my life. Gwen gly Agree 05/29/2024 Comments No Sex and Gender Information Value Date Recorded Sex Assigned at Not on file Legal Sex Female 11:21 AM EDT Gender Identity Not on file Sexual Orientation Not on file documented as of this encounter Progress Notes * Nicole Douglas LPN - 12/29/2024 1:12 PM EDT Your fax has been successfully sent to [phone] at [phone]. KIMBERLEE OXYGEN From: [email or web address] O[facility]GEN ORDER FAXED TO [facility] documented in this encounter Plan of Treatment Upcoming Encounters Date Type Department Care Team (Late st Contact Info) Description 03/21/2025 10:20 AM EDT Office Visit [facility] Internal Medicine - Family Medicine [address] [place] [phone] 03/29/2025 10:45 AM EDT Office Visit [facility] Pulmonary/Sleep Medicine [address] [address] Kelley Garcia MD [address] [address] documented as of this encounter [...] documented as of this encounter Care Teams Heavy Equipment Engine Mechanic Relationship Specialty Start Date End Date Louie Moy DO [address] [facility] [place] [address] PCP - General Family Medicine 05/28/24 documented as of this encounter
--- OUTSIDE RECORDS SUMMARY | 2025-01-11 19:28 | XMS_ITS | Clinical Summary ---
Author Organization [facility] Address [address] [place] [address] Care Team Providers Care Coding Specialist Name Role Phone Forest Childs MD Unavailable [...] 10/06/2019, 10/05/2019, Additional history exists Covid-19 Vaccine (1 - 2023-2 5 season) 2024 Bone Density Screening 2024 Lipid Screening 05/11/2024 05/11/2019 Advance Directive Discussion 06/22/2024 Influenza Vaccine (#1) 2025 RSV Vaccine (1 - 1-dose 75+ series) 2034 Insurance BLUE CARD PPO OOS Care Teams Coding Specialist Relationship Specialty Start Date End Date Forest Childs MD [address] [place] [phone] Referring Pulmonary Disease 11/04/19
--- OUTSIDE RECORDS SUMMARY | 2025-01-11 19:28 | XMS_ITS | Encounter Summary ---
Author Organization [employer] Address [facility][id number] [address] [place] [address] Care Team Providers Care Bench Shear Operator Name Role Phone Louie Moy DO Primary Care Provider + [phone] Reason for Referral * Misc (Routine) - Authorized Specialty Diagnoses / Procedures Referred By Contac t Referred To Contact Diagnoses Chronic obstructive pulmonary disease, unspecified COPD type ([facility]) Procedures Oxygen Therapy Kelley Garcia MD [address] [address] Phone: tel: fax: Referral ID Status Reason Start Date Expiration Date V isits Requested Visits Authorized [id number] Authorized 12/28/2024 12/28/2025 1 1 Encounter Details Date Type Department Care Team (Late st Contact Info) Description 12/28/2024 Orders Only [facility] Pulmonary/Sleep Medicine [address] [phone] Nicole Douglas LPN Chronic obstructive pulmonary disease, unspecified COPD type ([facility]) (Primary Dx); Acute exacerbation of chronic obstructive pulmonary disease (COPD) ([facility]) Social History Tobacco Use Types Packs/Day Years Used Date Smoking Tobacco: Every Day Cigarettes Smokeless Tobacco: Never Alcohol Use Standard Drinks/Week Comments Yes 0 (1 standard drink = 0.6 oz pur e alcohol) Occasionally [facility] Utilities Answer Date Recorded In the [...] often do you attend chur ch or buddhist services? Never 05/29/2024 Do you belong to any clubs o r organizations such as amish groups, unions, fraternal or athletic groups, or [...] Answer Date Recorded Total Score 0 10/18/2024 [facility] of Occupat ional Health - Occupational [...] Recorded Do you need help finding a [facility] career center and/or a training program? No [...] Medicine - Family Medicine [address] [place] [address] 03/29/2025 10:45 AM EDT Office Visit [facility] Pulmonary/Sleep Medicine [address] [address] Kelley Garcia MD [address] [address] Scheduled Orders Name Type Priority Associated Diagnoses Orde r Schedule Six minute walk Respiratory Care Routine Chronic obstructive pulmonary disease, unspecified COPD type ([facility]) 1 Occurrences starting 12/28/2024 until 12/28/2025 documented as of this encounter Goals Goal Patient Goal Type Associated Problems Recent Progress Patient-Stated? Author Return to home with self care General Yes Evita Luis, RN Note: Evaluation of progress towards goal: Return home with self care and support of spouse if needed. documented as of this encounter Visit Diagnoses Diagnosis Chronic obstructive pulmonary disease, unspecified COPD type ([facility])- Primary Acute exacerbation of chronic obstructive pulmonary disease (COPD) ([facility]) Obstructive chronic bronchitis with exacerbation documented in this encounter Additional Health Concerns Assessment Noted Time PHQ-9 Depression Total Score: 0 10/19/19 25 4:29 PM EDT A Body Mass Index follow-up plan has been documented for the patient 03/31/2024 4:52 PM EDT documented as of this encounter Care Teams Bench Shear Operator Relationship Specialty Start Date End Date Louie Moy DO [address] [facility] [place] [address] PCP - General Family Medicine 05/28/24 documented as of this encounter
--- OUTSIDE RECORDS SUMMARY | 2025-01-11 19:28 | XMS_ITS | Encounter Summary ---
Author Organization [employer] Address [id number] [address] [place] [address] Care Team Providers Care Automobile Rental Agent Name Role Phone Louie Moy DO Primary Care Provider [phone] Encounter Details Date Type Department Care Team (Late st Contact Info) Description 08/04/2024 Telephone [facility] Internal Medicine - Family Medicine [address] [place] [phone] Lilly Cameron CMA Social History Tobacco Use Types Packs/Day Years Used Date Smoking Tobacco: Former Cigarettes 0.9 46.9 0 06/23/1977 - 05/28/2024 Smokeless Tobacco: Never Alcohol Use Standard Drinks/Week Comments Yes 0 (1 standard drink = 0.6 oz pur e alcohol) Occasionally [facility] Utilities Answer Date Recorded In the past 12 months has [employer], gas, oil, or water company threatened [...] any clubs o r organizations such as hindu groups, unions, fraternal or athletic groups, or [...] Answer Date Recorded Total Score 0 06/13/2024 [facility] of Occupat ional Health - Occupational [...] Recorded Do you need help finding a [facility] career center and/or a training program? [...] Telephone Encounter - Lilly Cameron CMA - 08/04/2024 9:19 AM EST Called pt and left message to get her CV visit scheduled. documented in this encounter Plan of Treatment Upcoming Encounters Date Type Department Care Team (Late st Contact Info) Description 03/21/2025 10:20 AM EDT Office Visit [facility] Internal Medicine - Family Medicine [address] [facility] [place] [address] 03/29/2025 10:45 AM EDT Office Visit [facility] Pulmonary/Sleep Medicine [address] [phone] Kelley Garcia MD [address] [address] documented as of this encounter [...] Time PHQ-9 Depression Total Score: 0 06/13/20 24 3:31 PM EST A Body Mass Index follow-up plan has been documented for the patient 03/31/2024 4:52 PM EDT documented as of this encounter Care Teams Automobile Rental Agent Relationship Specialty Start Date End Date Furlong, Louie G, DO [address] [facility], [place] [address] PCP - General Family Medicine 05/28/24 documented as of this encounter
--- OUTSIDE RECORDS SUMMARY | 2025-01-11 19:28 | XMS_ITS | Clinical Summary ---
Author Organization [facility] Healthcare Address [address] [place] [address] Care Team Providers Care Community Organization Worker Name Role Phone Unavailable Primary Care Provider [...] Plan of Treatment Not on file Insurance [facility]
--- OUTSIDE RECORDS SUMMARY | 2025-01-11 19:28 | XMS_ITS | Encounter Summary ---
Author Organization [employer] Address [facility]-[id number] [address] [place] [address] Care Team Providers Care Tele Marketing Executive Name Role Phone Louie Moy Primary Care Provider [phone] Encounter Details Date Type Department Care Team (Late st Contact Info) Description 02/26/2024 Telephone [facility] Adult Endocrinology [address] [facility] [address] [place] [phone] Donna Barkley LPN Social History Tobacco Use [...] Medicine - Family Medicine [address] [place] [address] 03/29/2025 10:45 AM EDT Office Visit [facility] Pulmonary/Sleep Medicine [address] [phone] Kelley Garcia MD [address] [address] documented as of this encounter Visit Diagnoses [...] documented as of this encounter Care Teams Tele Marketing Executive Relationship Specialty Start Date End Date Louie Moy DO [address] [place] [address] PCP - General Family Medicine 05/28/24 documented as of this encounter
--- OUTSIDE RECORDS SUMMARY | 2025-01-11 19:28 | XMS_ITS | Encounter Summary ---
Author Organization [facility] [employer] Address [id number] [address] [place] [address] Care Team Providers Care Professional Organizer Name Role Phone Chinmay Louie Hawkins DO Primary Care Provider Encounter Details Date Type Department Care Team (Late st Contact Info) Description 12/07/2024 Telephone [facility] Pulmonary/Sleep Medicine [address] [facility] [address] [place] [address] Lucas Whitlock Social History Tobacco Use Types Packs/Day Years Used Date Smoking Tobacco: Former Cigarettes 0.9 46.9 0 06/23/1977 - 05/28/2024 Smokeless Tobacco: Never Alcohol Use Standard Drinks/Week Comments Yes 0 (1 standard drink = 0.6 oz pur e alcohol) Occasionally [facility] Utilities Answer Date Recorded In the past 12 months has [employer], gas, oil, or water company threatened [...] often do you attend chur ch or confucianism services? Never 05/29/2024 Do you belong to any clubs o r organizations such as confucianism groups, unions, fraternal or athletic groups, or [...] Answer Date Recorded Total Score 0 10/18/2024 [facility] of Occupat ional Health - Occupational Stress [...] Recorded Do you need help finding a [facility] career center and/or a training program? [...] EDT New patient scheduled 12/28/24 w/[facility] @ [facility] for Chronic obstructive pulmonary disease, unspecified COPD type ([facility]) Sleep apnea, unspecified type Please place CXR/PFT order. * Telephone Encounter - Nicole Douglas LPN - 12/07/2024 11:23 AM EDT Orders pended to HB documented in this encounter Plan of Treatment Upcoming Encounters Date Type Department Care Team (Late st Contact Info) Description 03/21/2025 10:20 AM EDT Office Visit [facility] Internal Medicine - Family Medicine [address] [place] [address] 03/29/2025 10:45 AM EDT Office Visit [facility] Pulmonary/Sleep Medicine [address] [phone] Kelley Garcia MD [address] [address] documented as of this encounter Goals Goal [...] documented as of this encounter Care Teams Professional Organizer Relationship Specialty Start Date End Date Louie Moy DO [address] [facility], [place] [address] PCP - General Family Medicine 05/28/24 documented as of this encounter
--- OUTSIDE RECORDS SUMMARY | 2025-01-11 19:28 | XMS_ITS | Encounter Summary ---
Author Organization [employer] Address [id number] [address] [place] [address] Care Team Providers Care Business Development Manager Name Role Phone Louie Moy DO Primary Care Provider [phone] Encounter Details Date Type Department Care Team (Latest Contact Info) Description 12/28/2024 Travel Social History Tobacco Use Types Packs/Day Years Used Date Smoking Tobacco: Every Day Cigarettes Smokeless Tobacco: Never Alcohol Use Standard Drinks/Week Comments Yes 0 (1 standard drink = 0.6 oz pur e alcohol) Occasionally [employer] Utilities Answer Date Recorded In the past 12 months has [employer], gas, oil, or water company threatened [...] often do you attend chur ch or holiness services? Never 05/29/2024 Do you belong to [...] Answer Date Recorded Total Score 0 10/18/2024 [facility] of Occupat ional Health - Occupational [...] Recorded Do you need help finding a [facility] career center and/or a training program? [...] Internal Medicine - Family Medicine [address] [place] [address] 03/29/2025 10:45 AM EDT Office Visit [facility] Pulmonary/Sleep Medicine [address] [phone] Kelley Garcia MD [address] [address] documented as of this encounter [...] documented as of this encounter Care Teams Business Development Manager Relationship Specialty Start Date End Date Louie Moy DO [address], [facility] [place] [address] PCP - General Family Medicine 05/28/24 documented as of this encounter
--- OUTSIDE RECORDS SUMMARY | 2025-01-11 19:28 | XMS_ITS | Encounter Summary ---
Author Organization [facility] [employer] [facility] [employer] Address [id number] [address] [place] [address] Care Team Providers Care Technology Consultant Name Role Phone Chinmay Louie Ross FRANKLIN Primary Care Provider [phone] Encounter Details Date Type Department Care Team (Late st Contact Info) Description 06/27/2024 Orders Only [facility] Internal Medicine - Family Medicine [address] [place] [address] Diamond Wyatt CMA Chronic obstructive pulmonary disease, unspecified COPD type ([facility]) Social History Tobacco Use Types Packs/Day Years Used Date Smoking Tobacco: Former Cigarettes 0.9 46.9 0 06/23/1977 - 05/28/2024 Smokeless Tobacco: Never Alcohol Use Standard Drinks/Week Comments Yes 0 (1 standard drink = 0.6 oz pur e alcohol) Occasionally C Utilities Answer Date Recorded In the past 12 months has [employer], gas, oil, or water [employer] threatened to shut off services in your [...] often do you attend chur ch or jew services? Never 05/29/2024 Do you belong to any clubs o r organizations such as jehovah's witness groups, unions, fraternal or athletic groups, or [...] Answer Date Recorded Total Score 0 06/13/2024 [facility] of Occupat ional Health - Occupational Stress [...] Recorded Do you need help finding a [facility] career center and/or a training program? [...] Medicine - Family Medicine [address] [place] [address] 03/29/2025 10:45 AM EDT Office Visit [facility] Pulmonary/Sleep Medicine [address] [address] Kelley Garcia MD [address] [address] documented as of this encounter Goals Goal Patient Goal Type Associated Problems Recent Progress Patient-Stated? Author Return to home with self care General Yes Evita Luis, RN Note: Evaluation of progress towards goal: Return home with self care and support of spouse if needed. documented as of this encounter Procedures Procedure Name Priority Date/Time Associated Diagnosis Comments [id number] Routine 06/24/2024 Chronic obstructive pulmonary disease, unspecified COPD type ([facility]) documented in this encounter Results * [id number] (06/24/2024) Alpha 1 antitrypsin M/M MANUALLY TRANSCRIBED RESULTS 06/24/2024 Louie Moy DO LAB BLOOD ORDERABLES Final [...] documented as of this encounter Care Teams Technology Consultant Relationship Specialty Start Date End Date Louie Moy DO [address] [facility], [place] [address] PCP - General Family Medicine 05/28/24 documented as of this encounter
--- OUTSIDE RECORDS SUMMARY | 2025-01-11 19:28 | XMS_ITS | Encounter Summary ---
Author Organization [facility] Address [address] [place] [address] Care Team Providers Care Vessel Scrapper Name Role Phone Forest Childs MD Unavailable Source Comments In the event this information is protected by the Federal Confidentiality of Alcohol and Drug AbusePatient Records regulations: The Federal rules restrict any use of the information to criminally investigate or prosecute any alcohol or drug abuse patient.[facility] Encounter Details Date Type Department Care Team (Late st Contact Info) Description 2024 [place] [address] Provider, [facility] Medicare Coverage of Physical Exams [...] on filedocumented in this encounter Care Teams Vessel Scrapper Relationship Specialty Start Date End Date Forest Childs MD [address] [place] [phone] Referring Pulmonary Disease 11/04/19 documented as of this encounter
--- OUTSIDE RECORDS SUMMARY | 2025-01-11 19:28 | XMS_ITS | Encounter Summary ---
Author Organization [facility] Address [facility]-[id number] [address] [place] [address] Care Team Providers Care Equipment Monitor Phototypesetting Name Role Phone Chinmay Louie Hawkins DO Primary Care Provider [phone] Encounter Details Date Type Department Care Team (Late st Contact Info) Description 12/07/2024 Orders Only [facility] Pulmonary/Sleep Medicine [address] [facility] [address] [place] [address] Nicole Douglas LPN SOB (shortness of breath) (Primary Dx) Social History Tobacco Use Types Packs/Day Years Used Date Smoking Tobacco: Former Cigarettes 0.9 46.9 0 06/23/1977 - 05/28/2024 Smokeless Tobacco: Never Alcohol Use Standard Drinks/Week Comments Yes 0 (1 standard drink = 0.6 oz pur e alcohol) Occasionally C Utilities Answer Date Recorded In the past 12 months has [employer], gas, oil, or water company threatened to [...] often do you attend chur ch or quaker services? Never 05/29/2024 Do you belong to any clubs o r organizations such as pentecostalism groups, unions, fraternal or athletic groups, or [...] Answer Date Recorded Total Score 0 10/18/2024 [facility] of Occupat ional Health - Occupational Stress [...] Recorded Do you need help finding a [facility] career center and/or a training program? [...] Medicine - Family Medicine [address] [place] [address] 03/29/2025 10:45 AM EDT Office Visit [facility] Pulmonary/Sleep Medicine [address] [address] Kelley Garcia MD [address] [address] Scheduled Orders Name Type Priority Associated Diagnoses Orde r Schedule X-ray chest 2 views Imaging Routine SOB (shortness of breath) Expected: 01/11/2025, Expires: 12/07/2025 documented as of this encounter Goals Goal [...] 8:30 AM EDT SOB (shortness of breath) documented in this encounter Results * (ABNORMAL) Pulmonary function test Spirometry [...] Edited Result - Final MANUALLY TRANSCRIBED RESULTS documented in this encounter Visit Diagnoses Diagnosis SOB (shortness of breath)- Primary Shortness of breath documented in this encounter Additional Health Concerns Assessment Noted Time PHQ-9 Depression Total Score: 0 10/19/19 4:29 PM EDT A Body Mass Index follow-up plan has been documented for the patient 03/31/2024 4:52 PM EDT documented as of this encounter Care Teams Equipment Monitor Phototypesetting Relationship Specialty Start Date End Date Louie Moy DO [address] [facility], [place] [address] PCP - General Family Medicine 05/28/24 documented as of this encounter
--- OUTSIDE RECORDS SUMMARY | 2025-01-11 19:28 | XMS_ITS | Encounter Summary ---
Author Organization [employer] Address [facility] [place] [id number] [address] [place] [address] Care Team Providers Care Political Analyst Name Role Phone Louie Moy Primary Care Provider [phone] Encounter Details Date Type Department Care Team (Late st Contact Info) Description 08/31/2023 Orders Only [facility] Internal Medicine - Family Medicine [address] [place] [address] External, Scanning Provider Social History Tobacco Use [...] - Family Medicine [address] [place] [address] 03/29/2025 10:45 AM EDT Office Visit [facility] Pulmonary/Sleep Medicine [address] [phone] Kelley Garcia MD [address] [address] documented as of this encounter Procedures Procedure [...] documented as of this encounter Care Teams Political Analyst Relationship Specialty Start Date End Date Louie Moy DO [address], [place] [address] PCP - General Family Medicine 05/28/24 documented as of this encounter
--- OUTSIDE RECORDS SUMMARY | 2025-01-11 19:29 | XMS_ITS | CCD ---
Author Organization [facility] ion [facility] Care Team Providers Care Information Assurance Specialist Name Role Phone Najma Ken Primary Care Provider Caden Baldwin Primary Care Provider [phone] Caden Baldwin Primary Care Provider NAJMA KEN Referring Unavailabl e NAJMA KEN Primary Care Unavailabl e NAJMA KEN Referring Unavailabl e CADEN BALDWIN Primary Care Unavailabl e Caden Baldwin Primary Care Provider [phone] Caden Baldwin MD Primary Care Provider NAJMA KEN Referring Unavailabl e CADEN BALDWIN Primary Care Unavailabl e CORA, ENESI O Referring Unavailable CADEN BALDWIN Primary Care Unavailabl e CADEN BALDWIN Primary Care Unavailabl e HEENA JOHN Attending Unavailable PAY, DR FERRER Admitting Unavailable PAY, DR FERRER Attending Unavailable PAY, DR FERRER Consulting Unavailable JGPALMER OMALLEY Consulting Unavailable FURLONG, DR LOIUE Hawkins Primary Care Unavailable MISC, DR IBRAHIM [...] Unavailable ZIEBER, DR BARRON Strauss Consulting Unavailable JODYMOHINDER SAGASTUME Consulting Unavailable FURLONG, DR LOUIE Hawkins Primary Care Unavailable JAZMINE DODD Admitting Unavailable KHURRAM FULTON Consulting Unavailable JAZMINE DODD Attending Unavailable Gypsy Muñoz Consulting Unavailable PAPI BAEZ Referring Unavailab le FURLONG, LOUIE Hawkins Primary Care Unavailable Giedraitis , Andgloria Streeter Attending Unavailable Giedraitis , Andgloria Streeter Attending Unavailable Giedraitis , Andrius Streeter Attending Unavailable Giedraitis , Andrius Streeter Attending Unavailable Giedraitis , Andrius Streeter Attending Unavailable Giedraitis , Andgloria Streeter Attending Unavailable Furlong Louie FRANKLIN Primary Care Provider PAPI BAEZ Attending Unavailab le FURLONG, LOUIE G Primary Care Unavailable FURLONG, LOUIE G Referring Unavailable FURLONG, LOUIE Hawkins Primary Care Unavailable FURLONG, LOUIE Hawkins Attending Unavailable FURLONG, LOUIE G Referring Unavailable FURLONG, LOUIE Hawkins Primary Care Unavailable FURLONG, LOUIE Hawkins Attending Unavailable FURLONG, LOUIE G Referring Unavailable FURLONG, LOUIE Hawkins Primary Care Unavailable CELIA COWAN Referring Unavailable FURLONG, LOUIE Hawkins Primary Care Unavailable FURLONG, LOUIE Hawkins Primary Care Unavailable LORENZO LACKEY Attending Unavailable RYAN BURKS Admitting Unavailable FURLONG, LOUIE Hawkins Attending Unavailable FURLONG, LOUIE G Referring Unavailable FURLONG, LOUIE G Primary Care Unavailable Furlong DOLouie Primary Care Provider LOUIE PAUL Attending Unavailable FURLONG, LOUIE G Referring Unavailable FURLONG, LOUIE Hawkins Primary Care Unavailable FURLONG, LOUIE Hawkins Attending Unavailable FURLONG, LOUIE Hawkins Referring Unavailable FURLONG, LOUIE Hawkins Primary Care Unavailable FURLONG, LOUIE G Attending Unavailable FURLONG, LOUIE G Referring Unavailable FURLONG, LOUIE G Primary Care Unavailable FURLONG, LOUIE G Attending Unavailable FURLONG, LOUIE G Referring Unavailable FURLONG, LOUIE G Primary Care Unavailable CAMRYN CELIA E Attending Unavailable FURLONG, LOUIE G Referring Unavailable FURLONG, LOUIE G Primary Care Unavailable RYANNE MARTINEZ ROSE Attending Unavailable FURLONG, LOUIE G Referring Unavailable FURLONG, LOUIE G Primary Care Unavailable FURLONG, LOUIE G Attending Unavailable FURLONG, LOUIE G Referring Unavailable FURLONG, LOUIE G Primary Care Unavailable MELLY MAYNARD Attending Unavailable FURLONG, LOUIE G Referring Unavailable FURLONG, LOUIE G Primary Care Unavailable Israel Dye DO Attending Provider Furlesang DO, Louie Primary Care Provider Baltazar Cho MD Attending Provider [facility]Israel newton DO Referring Provider [phone] FURLONG, LOUIE G Referring Unavailable FURLONG, LOUIE G Primary Care Unavailable FURLONG, LOUIE G Referring Unavailable FURLONG, LOUIE G Primary Care Unavailable LUCIEQUINTEN NewtonYandel Horan Attending Unavailable FURLONG, LOUIE G Referring Unavailable FURLONG, LOUIE G Primary Care Unavailable Allergies Allergy Classification Reported Allergen(s) Allergy Type Date of Onset Reaction(s) Facility Calcium Channel Blockers (1 source) dil[facility] Drug Allergy 10-12-2019 Itching, Swelling, Rash [facility] (3 sources) dilTIAZem Drug Allergy 10-12-2019 Itching, Swelling, Rash [facility]- [place], [place] Medications Current Medications Medication Drug Class(es) Dates Sig (Normalized) Sig (Original) acetaminophen 500 mg oral tablet (20 sources) Start: 12-12-2024 take 1 tablet by mouth every six hours as needed Start: 09-27-2021 take 2 tablets by [facility] every four hours as needed acetaminophen (TYLENOL) [...] mg from all sources in 24 hours. [id number] 200 actuat albuterol 0.09 mg/actuat metered dose inhaler (20 sources) beta2-Adrenergic Agonist Start: 11-23-2023 End: 12-28-2024 take 2 puff(s) by inhalation four times daily albuterol (PROVENTIL HFA;VENTOLIN HFA) 90 mcg/actuation inhaler Indications: Acute exacerbation of chronic obstructive pulmonary disease (COPD) ([facility] Inhale 2 puffs 4 (four) times a day. 18 g 11 12/28/2024 Active Start: 05-11-2023 take 3 mL by inhalat ion every six hours as needed for wheezing albuterol (PROVENTIL,VENTOLIN) 2.5 mg /3 mL (0.083 %) nebulizer solution Indications: Chronic respiratory failure with hypoxia ([facility] Inhale 3 mL (2.5 mg total) by [...] 1 tablet by mouth daily 0 Active aspirin 81 mg oral tablet (2 sources) Platelet Aggregation Inhibitor, Nonsteroidal Anti-inflammatory Drug Start: 12-13-19 25 take 1 tablet by mouth once daily atorvastatin 20 mg oral tablet (11 sources) HMG-CoA Reductase Inhibitor Start: 12-13-19 25 take 1 tablet by mouth once daily Start: 09-05-2024 take 1 tablet by terrie th in the morning atorvastatin (LIPITOR) 10 mg tablet Take 1 tablet (10 mg total) by mouth in the morning. 30 tablet 09/05/2024 Active azithromycin 250 mg oral tablet (1 source) Macrolide Antimicrobial Start: 11-02-2019 End: 11-12-2019 azithromycin (ZITHROMAX) 250 MG tablet Indications: COPD exacerbation (HCC) Take 2 tablets (500 mg) on Day 1, followed by 1 tablet (250 mg) once daily on Days 2 through 5. 1 packet 0 11/02/2019 11/12/2019 Active baclofen 5 mg oral tablet (15 sources) gamma-Aminobutyric Acid-ergic Agonist Start: 12-12-2024 take 1 tablet by mouth once daily Start: 05-26-2024 baclofen (LELAND ESAL) 10 mg tablet 05/26/2024 Active benzonatate 100 mg oral capsule (11 sources) Non-narcotic Antitussive Start: 12-28-2024 take 1 capsule by mouth three times daily as needed for cough benzonatate (TESSALON PERLES) 100 mg capsule Indications: Acute cough Take 1 capsule (100 mg total) by mouth 3 (three) times a day as needed for cough. 42 capsule 12/28/2024 Active Start: 05-30-2024 take 1 capsule by mo [facility] three times daily as needed for cough [...] / glycopyrrolate 0.009 mg/actuat metered dose inhaler (20 sources) Corticosteroid, beta2-Adrenergic Agonist Start: 10-18-2024 take 2 puff(s) by inhalation in the morning iazzcktrom-nekgvecf-roc moterol (BREZTRI AEROSPHERE) 160-9-4.8 mcg/actuation HFA aerosol inhaler Indications: Chronic obstructive pulmonary disease, unspecified COPD type ([facility]) Inhale 2 puffs in the morning and 2 puffs before bedtime. 5.9 g 10/18/2024 Active Start: 01-21-2024 End: 12-28-2024 take 2 puff(s) by inhalation at bedtime fgtjciezys-czjarlyc-iyqsorydlg (BREZTRI AEROSPHERE) 160-9-4.8 mcg/actuation HFA aerosol inhaler Indications: Acute exacerbation of chronic obstructive pulmonary disease (COPD) ([facility]) Inhale 2 puffs in the morning and at bedtime. 31.1 g 1 12/28/2024 Active cefuroxime 250 mg oral tablet (1 source) Cephalosporin Antibacterial Start: 08-10-2019 End: 08-15-2019 take 1 tablet by mouth twice daily cefUROXime (CEFTIN) 250 MG tablet Take 1 tablet by mouth 2 times daily for 5 days 10 tablet 0 08/10/2019 08/15/2019 Active cetirizine hydrochloride 10 mg oral tablet (14 sources) Histamine-1 Receptor Antagonist Start: 03-11-2024 take [...] / promethazine hydrochloride 1.25 mg/ml oral solution (6 sources) Phenothiazine, Uncompetitive V-ylwmdx-N-asparta te Receptor Antagonist, Sigma-1 Agonist Start: 10-18-2024 [...] Active Start: 11-28-2019 [facility] dilTIAZem (CARDIZEM) 30 [...] take 1 capsule by mouth once daily Start: 11-09-2020 take 1 capsule by [facility] once daily DULoxetine (CYMBALTA) 20 MG extended release capsule TAKE 1 CAPSULE BY MOUTH EVERY DAY AT NIGHT 90 capsule 0 11/09/2020 Active Start: 02-21-2020 take 1 capsule by mo [facility] once daily DULoxetine (CYMBALTA) 20 MG extended release capsule TAKE 1 CAPSULE BY MOUTH EVERY DAY AT NIGHT 90 capsule 0 02/21/2020 Active Start: 10-21-2019 take 1 capsule by [facility] once daily DULoxetine (CYMBALTA) 20 MG extended [...] EACH NOSTRIL IN THE MORNING 02/17/2024 Active 12 hr guaiFENesin 600 mg extended release [...] Start: 08-10-2019 take 2 tablets by mo [facility] twice daily guaiFENesin (MUCINEX) 600 MG extended [...] % nebulizer solution 0.5 mg Lactobacillus acidophilus (14 sources) take 1 tablet by mouth in [...] Active liothyronine sodium 0.005 mg oral tablet (14 sources) l-Triiodothyronine Start: 12-23-2023 take 1 tablet [...] Nausea 30 tablet 0 04/12/2020 04/22/2020 Active meloxicam 15 mg oral tablet (1 source) Nonsteroidal Anti-inflammatory Drug Start: 12-30-2024 take 1 tablet by mouth once daily MIEBO 100 % drops (14 sources) Start: 11-21-2023 MIEBO 100 % drops 11/21/2023 Active Start: 11-21-2023 take 1 drop(s) [...] omeprazole 20 mg delayed release oral capsule (14 sources) Proton Pump Inhibitor take 1 capsule [...] tablet 10/03/2024 10/06/2024 Active polyethylene glycol 3350 36212 mg powder for oral solution (1 source) Osmotic Laxative Start: 08-27-2019 polyethylene glycol (GLYCOLAX) packet 17 g Potassium Chloride (1 source) Start: 08-27-2019 potassium chloride (KLOR-CON M) extended release tablet 40 mEq predniSONE 20 mg oral tablet (14 sources) Start: 12-28-2024 End: 01-02-2025 take 2 tablets by mouth in the morning predniSONE (DELTASONE) 20 mg tablet Take 2 tablets (40 mg total) by mouth in the morning for 5 days. 10 tablet 12/28/2024 Active Start: 11-22-2020 End: 11-27-2020 take 2 tablets [...] 5 mg tablet Indications: Paroxysmal atrial fibrillation ([facility]) Take 1 tablet (5 mg total) by [...] dornase alpha (PULMOZYME) nebulizer solution 2.5 mg gabapentin 300 mg oral capsule (18 sources) Anti-epileptic Agent Start: 05-26-2024 End: 01-05-2025 gabapentin (NEURONTIN) 300 mg capsule Take by mouth. 05/26/2024 01/05/2025 Discontinued (Side effects) Start: 10-17-2020 End: 01-15-2021 take 1 capsule [...] DAILY, First dose on Thu10/06/19 at 1400 1 ml ketorolac tromethamine 30 mg/ml cartridge [...] asthma with acute exacerbation] Chronic Cardiac dysrhythmias (20 sources) Paroxysmal atrial fibrillation; Translations: [Paroxysmal atrial [...] vertigo (1 source) Dizziness; Translations: [Dizziness] Episodic Diseases of white blood cells (6 sources) Familial eosinophilia; Translations: [Peripheral eosinophilia] Onset: 12-28-2024 12-28-2024 Chronic Disorders of lipid metabolism (18 sources) Mixed hyperlipidemia; Translations: [Mixed hyperlipidemia] Onset: 02-17-2024 02-17-2024 Chronic Esophageal disorders (2 sources) Gastroesophageal reflux disease; Translations: [Gastro-esophageal reflux disease without esophagitis] Onset: 09-01-2024 09-01-2024 Chronic Essential hypertension (1 source) Hypertensive disorder Onset: 09-01-2024 Chronic Genitourinary symptoms and ill-defined conditions (14 sources) Genuine stress incontinence; Translations: [Stress incontinence [...] kidney and ureter] Onset: 03-23-2024 Chronic Other lower respiratory disease (5 sources) Cough; Translations: [Cough] Onset: 03-02-2021 Episodic Other lower respiratory disease (2 sources) Shortness of breath; Translations: [Shortness of breath] Onset: 05-28-2024 Episodic Other lower respiratory disease (1 source) Dyspnea; Translations: [Shortness of breath] 12-28-2024 Episodic Other lower respiratory disease (1 source) Mixed obstructive and restrictive ventilatory defect 12-28-2024 Episodic Other lower respiratory disease (6 sources) Dyspnea on exertion; Translations: [Other forms of dyspnea] Onset: 12-28-2024 12-28-2024 Episodic Other lower respiratory disease (5 sources) Cough; Translations: [Acute cough] Onset: 12-28-2024 12-28-2024 Episodic Other lower respiratory disease (1 source) Other forms of dyspnea; Translations: [Other forms of dyspnea] Onset: 12-28-2024 Episodic Other lower respiratory disease (1 source) Shortness of breath Onset: 12-28-2024 Episodic Other lower respiratory disease (1 source) Wheezing Onset: 12-28-2024 Episodic Other nervous system disorders (20 sources) Carpal tunnel syndrome; Translations: [Carpal tunnel syndrome, unspecified upper limb] Onset: 02-01-2019 02-01-2019 Chronic Other nervous system disorders (4 sources) Chronic pain; Translations: [Other chronic pain] 12-30-2024 Chronic Other nutritional; endocrine; and metabolic disorders [...] source) Excessive thirst; Translations: [Polydipsia] Episodic Other screening for suspected conditions (not mental disorders or infectious disease) (8 sources) Encounter for screening for malignant neoplasm of colon; Translations: [Encounter for screening mammogram for malignant neoplasm of breast] Onset: 02-17-2024 12-28-2024 Episodic Other skin disorders (4 sources) Localized swelling, mass and lump, neck; Translations: [LOCALIZED SWELLING MASS AND LUMP NECK] Onset: 10-04-2021 Episodic Other upper respiratory disease (1 source) Chronic rhinitis; Translations: [Chronic rhinitis] Onset: 02-17-2024 Chronic Other upper respiratory disease (5 sources) Allergic rhinitis; Translations: [Other allergic rhinitis] Onset: 12-28-2024 5 Chronic Other upper respiratory disease (1 source) Other allergic rhinitis; Translations: [Other allergic rhinitis] Onset: 12-28-2024 Chronic Other upper respiratory infections (1 source) Chronic sinusitis, unspecified; Translations: [CHRONIC SINUSITIS UNSPECIFIED] Onset: 2021 Chronic Residual codes; unclassified (4 sources) Obstructive sleep apnea (adult) (pediatric); Translations: [OBSTRUCTIVE SLEEP APNEA] Onset: 12-16-2021 Chronic Residual codes; unclassified (3 sources) Sleep apnea; Translations: [Sleep apnea, unspecified] Onset: 12-28-2024 09-01-2024 Chronic Residual codes; unclassified (1 source) Sleep apnea, unspecified; Translations: [Sleep apnea, unspecified] Onset: 09-01-2024 Chronic Respiratory failure; insufficiency; arrest (adult) (20 sources) Chronic hypoxemic respiratory failure; Translations: [Chronic respiratory failure with hypoxia] Onset: 10-07-2019 Resolved: 09-01-2024 10-07-2019 Chronic Spondylosis; intervertebral disc disorders; other back problems (8 sources) Inflammation of sacroiliac joint; Translations: [Sacroiliitis, not elsewhere classified] 12-30-2024 Chronic Spondylosis; intervertebral disc disorders; other back problems (5 sources) Sacroiliac joint pain; Translations: [Sacrococcygeal disorders, not elsewhere classified] Episodic Substance-related disorders (19 sources) Nicotine dependence, cigarettes, uncomplicated; Translations: [Cigarette [...] Unclassified (1 source) New Patient Onset: 12-22-2023 Unclassified (1 source) M53.3 - Sacrococcygeal disorders, not elsewhere classified Unclassified (1 source) Testing Onset: 12-28-2024 Unclassified (1 source) Other eosinophilia; Translations: [Other eosinophilia] Onset: 12-28-2024 Unclassified (1 source) Acute cough; Translations: [Acute cough] Onset: 12-28-2024 Urinary tract infections (1 source) Urinary tract [...] classified elsewhere] Onset: 03-31-2024 Episodic Cardiac dysrhythmias (20 sources) Tachycardia; Translations: [Tachycardia, unspecified] Onset: 08-26-2019 08-26-2019 Episodic Influenza (9 sources) Influenza due to Influenza A virus; Translations: [Influenza] Onset: 08-25-2019 Resolved: 09-25-2019 08-26-2019 Episodic Mood disorders (14 sources) Mood disorders Onset: 05-28-2024 Resolved: 10-18-2024 05-28-2024 Nausea and vomiting (4 sources) Nausea with vomiting, unspecified; Translations: [NAUSEA WITH VOMITING UNSPECIFIED] Onset: 07-02-2021 Episodic Other aftercare (1 source) Other penitentiary (current) drug therapy; Translations: [OTH CORRECTION CURRENT DRUG THERAPY] Onset: 07-04-2021 Episodic Other aftercare (1 source) [facility] (current) use of anticoagulants; Translations: [CORRECTION CURRNT USE ANTICOAGULANTS] Onset: 07-04-2021 Episodic Other connective tissue disease (1 source) Trigger finger; Translations: [Trigger finger, unspecified finger] Onset: 02-01-2019 02-01-2019 Episodic Other connective tissue disease (2 sources) Pain in left leg; Translations: [Pain in left leg] Onset: 01-15-2024 Episodic Other connective tissue disease (14 sources) Triggering of digit; Translations: [Trigger finger, unspecified finger] Onset: 02-01-2019 06-02-2022 Episodic Other connective tissue disease (2 sources) Leg swelling symptom Onset: 01-15-2024 Episodic Other lower respiratory disease (2 sources) Cough; Translations: [COUGH] Onset: 2021 Episodic Other lower respiratory disease (1 source) Hypoxemia; Translations: [Hypoxemia] Onset: 05-28-2024 Episodic Other nutritional; endocrine; and metabolic disorders (15 sources) Severe obesity; Translations: [Class 2 severe obesity due to excess calories with serious comorbidity and body mass index (BMI) of 38.0 to 38.9 in adult] Onset: 02-01-2024 Resolved: 09-01-2024 02-01-2024 Chronic Other upper respiratory infections (5 sources) Viral upper respiratory tract infection; Translations: [Acute upper respiratory infection, unspecified] Onset: 2021 Episodic Pneumonia (except that caused by tuberculosis or sexually transmitted disease) (14 sources) Pneumonia; Translations: [Pneumonia, unspecified organism] Resolved: 12-22-2022 12-22-2022 Episodic Residual codes; unclassified (14 sources) Edema of foot; Translations: [Localized edema] [...] W/AND (SUSP) EXPOS COVID-19] Onset: 06-25-2021 Unclassified (14 sources) Onset: 03-31-2024 03-31-2024 Results Test Name Value Interpretation Reference Range Facility POCT Influenza A/Influenza B /SARS-COV-2 [facility] 10-18-2024 External Poct Influenza A Antigen Negative [facility] External Poct Influenza B Antigen Negative [facility] SARS-CoV-2 (COVID-19) Ag IA.rapid Ql (Resp) Negative [facility] POCT urinalysis dipstick onl yon 10-18-2024 Appearance (U) clear [facility] External Poct Urine Bilirubin Negative [facility] External Poct Urine Blood Trace [facility] External Poct Urine Color yellow [facility] External Poct Urine Glucose Negative [facility] External Poct Urine Ketones Negative [facility] External Poct Urine Leukocyte Esterase Negative [facility] External Poct Urine Nitrite Negative [facility] External Poct Urine Ph 6.[address] [facility] External Poct Urine Protein 3+ [facility] Comment on above: 30 External Poct Urine Specific [place] 1.02 [facility] External Poct Urine Urobilinogen 0.2 [facility] COMPREHENSIVE METABOLIC PANE Deven 09-01-2024 Albumin [Mass/Vol] 3.7 g/dL Normal 3.2-5.3 [facility] Comment on above: Performed By: #### Felisha GOLD, 03681-4 #### [facility] ([id number]) [address], [address] [place] [address] ALP [Catalytic activity/Vol] 69 U/L Normal 39-130 [facility] Comment on above: Performed By: #### Felisha GOLD, 67985-6 #### [facility] ([id number]) [address], [address] [place] [address] ALT [Catalytic activity/Vol] 14 U/L Normal 0-31 [facility] Comment on above: Performed By: #### Felisha GOLD, 44816-3 #### [facility] ([id number]) [address], [address] [place] [address] Anion gap [Moles/Vol] 8 mmol/L Normal 5-15 [facility] Comment on above: Performed By: #### Felisha GOLD, 05005-9 #### [facility] ([id number]) [address], [address] [place] [address] AST [Catalytic activity/Vol] 13 U/L Normal 0-41 [facility] Comment on above: Performed By: #### Felisha GOLD, 18678-5 #### [facility] ([id number]) [address], [address] [place] [address] Bilirubin [Mass/Vol] 0.4 mg/dL Normal 0.3-1.2 [facility] Comment on above: Performed By: #### Felisha GOLD, 43202-8 #### [facility] ([id number]) [address], [address] [place] [address] Calcium [Mass/Vol] 8.5 mg/dL Normal 8.5-10.5 [facility] Comment on above: Performed By: #### Felisha GOLD 01632-7 #### [facility] ([id number]) [address], [address] [place] [address] Chloride [Moles/Vol] 100 mmol/L Normal 98-109 [facility] Comment on above: Performed By: #### Felisha GOLD, 91478-0 #### [facility] ([id number]) [address], [address] [place] [address] CO2 [Moles/Vol] 31 mmol/L Normal 22-32 [facility] Comment on above: Performed By: #### Felisha GOLD, 65406-2 #### [facility] ([id number]) [address], [address] [place] [address] Creatinine [Mass/Vol] 0.66 mg/dL Normal 0.40-1.00 [facility] Comment on above: Result Comment: METH OD TRACEABLE TO IDMS STANDARD Performed By: #### Felisha GOLD, 69031-5 #### [facility] ([id number]) [address], [address] [place] [address] eGFR (CKD-EPI) NON-RACE DEPENDENT >90 Normal >59 [facility] Comment on above: Result Comment: Reported eGFR is based on the CKD-EPI 2020 equation that does not use a race coefficient. Performed By: #### Felisha GOLD, 99276-3 #### [facility] ([id number]) [address], [address] [place] [address] Glucose [Mass/Vol] 105 mg/dL High 65-99 [facility] Comment on above: Performed By: #### Felisha GOLD 82615-5 #### [facility] ([id number]) [address], [address] [place] [address] Potassium [Moles/Vol] 4.2 mmol/L Normal 3.5-5.0 [facility] Comment on above: Performed By: #### Felisha GOLD 74980-3 #### [facility] ([id number]) [address], [address] [place] [address] Protein [Mass/Vol] 7.2 g/dL Normal 6.0-8.0 [facility] Comment on above: Performed By: #### Felisha GOLD 99786-5 #### [facility] ([id number]) [address], [address] [place] [address] Sodium [Moles/Vol] 139 mmol/L Normal 134-146 [facility] Comment on above: Performed By: #### Felisha GOLD 98706-4 #### [facility] ([id number]) [address], [address] [place] [address] Urea nitrogen [Mass/Vol] 18 mg/dL Normal 5-27 [facility] Comment on above: Performed By: #### Felisha GOLD 19691-1 #### [facility] ([id number]) [address], [address] [place] [address] Lipid 1996 panelon 5 Cholesterol [Mass/Vol] 256 mg/dL High 150-200 Pr [facility] Comment on above: Performed By: #### Felisha GOLD 28451-6 #### [facility] ([id number]) [address], [address] [place] [address] Cholesterol in HDL [Mass/Vol] 44 mg/dL Normal >39 [facility] Comment on above: Result Comment: HDL <40 mg/dL - High Risk HDL > or = 40mg/dL- Desirable HDL >60 mg/dL - Negative Risk Performed By: #### Felisha GOLD, 35246-9 #### [facility] ([id number]) [address], [address] [place] [address] Cholesterol in LDL [Mass/Vol] 185 mg/dL High <130 [facility] Comment on above: Result Comment: LDL <100 mg/dL - Desirable LDL >160 mg/dL - High Risk Performed By: #### Felisha GOLD, 87204-2 #### [facility] ([id number]) [address], [address] [place] [address] Cholesterol in VLDL [Mass/Vol] 27 mg/dL Normal 0-30 [facility] Comment on above: Performed By: #### Felisha GOLD, 78986-0 #### [facility] ([id number]) [address], [address] [place] [address] CHOLESTEROL:HDL 5.8 High 1.0-5.0 [facility] Comment on above: Performed By: #### Felisha GOLD, 98852-5 #### [facility] ([id number]) [address], [address] [place] [address] Triglyceride [Mass/Vol] 133 mg/dL Normal 27-150 [facility] Comment on above: Performed By: #### C , 59520-7 #### [facility] ([id number]) [address], [address] [place] [address] CBC AND AUTO DIFFon 05-30-20 24 ABSOLUTE BASOPHIL 0.1 X10E9/L Normal 0.0-0.[address] [facility] Comment on above: Performed By: #### C SHINE [facility], 1987-10, 36661-0 #### [facility] ([id number]) [address] [place] [address] 01851 ABSOLUTE NEUTROPHIL 17.2 X10E9/L High 1.5-6.6 [facility] Comment on above: Performed By: #### Felisha RIOJAS [facility], 1987-10, 60920-4 #### [facility] ([id number]) [address] [place] [address] 11443 Basophils/100 WBC (Bld) 0.8 % Normal [facility] Comment on above: Performed By: #### Felisha RIOJAS [facility], 1987-10, 64992-5 #### [facility] ([id number]) [address] [place] [address] 87971 Eosinophils (Bld) [#/Vol] 0.0 10*3/uL Normal 0.0-0.4 [facility] Comment on above: Performed By: #### Felisha RIOJAS [facility], 1987-10, 78091-0 #### [facility] ([id number]) [address] [place] [address] 79831 Eosinophils/100 WBC (Bld) 0.3 % Normal [facility] Comment on above: Performed By: #### Felisha RIOJAS [facility], 1987-10, 01166-8 #### [facility] ([id number]) [address] [place] [address] 67922 Erythrocyte distribution width (RBC) [Ratio] 13.5 % Normal 11.5-15.0 [facility] Comment on above: Performed By: #### C SHINE [facility], 1987-10, 55734-6 #### [facility] ([id number]) [address] [place] [address] 30574 Hematocrit (Bld) [Volume fraction] 45.1 % Normal 35-47 [facility] Comment on above: Performed By: #### Felisha RIOJAS [facility], 1987-10, #### [facility] ([id number]) [address] [place] [address] 61844 Hemoglobin (Bld) [Mass/Vol] 14.7 g/dL Normal 11.7-15.5 [facility] Comment on above: Performed By: #### Felisha RIOJAS [facility], 1987-10, #### [facility] ([id number]) [address] [place] [address] 96498 Lymphocytes (Bld) [#/Vol] 1.0 10*3/uL Normal 1.0-3.5 [facility] Comment on above: Performed By: #### Felisha RIOJAS [facility], 1987-10, #### [facility] ([id number]) [address] [place] [address] 64738 Lymphocytes/100 WBC (Bld) 5.2 % Normal [facility] Comment on above: Performed By: #### Felisha RIOJAS [facility], 1987-10, 26785-5 #### [facility] ([id number]) [address] [place] [address] 29669 MCH (RBC) [Entitic mass] 29.7 pg Normal 27-34 [facility] Comment on above: Performed By: #### Felisha RIOJAS [facility], 1987-10, #### [facility] ([id number]) [address] [place] [address] 83308 MCHC (RBC) [Mass/Vol] 32.7 g/dL Normal 32-36 [facility] Comment on above: Performed By: #### C SHINE [facility], 1987-10, 38033-2 #### [facility] ([id number]) [address] [place] [address] 20549 MCV (RBC) [Entitic vol] 91 fL Normal 80-100 [facility] Comment on above: Performed By: #### Felisha RIOJAS [facility], 1987-10, #### [facility] ([id number]) [address] [place] [address] 70922 Monocytes (Bld) [#/Vol] 0.5 10*3/uL Normal 0-0.9 [facility] Comment on above: Performed By: #### Felisha RIOJAS [facility], 1987-10, #### [facility] ([id number]) [address] [place] [address] 98571 Monocytes/100 WBC (Bld) 2.7 % Normal [facility] Comment on above: Performed By: #### Felisha RIOJAS [facility], 1987-10, #### [facility] ([id number]) [address] [place] [address] 47603 Neutrophils/100 WBC (Bld) 91.0 % Normal [facility] Comment on above: Performed By: #### Felisha RIOJAS [facility], 1987-10, #### [facility] ([id number]) [address] [place] [address] 36970 Platelet mean volume (Bld) [Entitic vol] 8.1 fL Normal 7-12 [facility] Comment on above: Performed By: #### Felisha RIOJAS [facility], 1987-10, #### [facility] ([id number]) [address] [place] [address] 28036 Platelets (Bld) [#/Vol] 393 10*3/uL Normal 150-450 [facility] Comment on above: Performed By: #### Felisha RIOJAS CMP, 1987-10, 22844-8 #### [facility] ([id number]) [address] [place] [address] 42411 RBC COUNT 4.95 X10E12/L Normal 3.80-5.20 [facility] Comment on above: Performed By: #### C BCA, CMP, 1987-10, 80087-2 #### [facility] ([id number]) [address] [place] [address] 16404 WBC (Bld) [#/Vol] 18.8 10*3/uL High 4.0-11.0 [facility] Comment on above: Performed By: #### C BCA, CMP, 1987-10, 79702-6 #### [facility] ([id number]) [address] [place] [address] 65647 COMPREHENSIVE METABOLIC PANE Deven 05-30-2024 Albumin [Mass/Vol] 3.6 g/dL Normal 3.2-5.[address] [facility] Comment on above: Performed By: #### C BCA, CMP, 1987-10, 28084-9 #### [facility] ([id number]) [address] [place] [address] 79681 ALP [Catalytic activity/Vol] 56 U/L Normal 39-130 [facility] Comment on above: Performed By: #### C BCA, CMP, 1987-10, 55023-4 #### [facility] ([id number]) [address] [place] [address] 77067 ALT [Catalytic activity/Vol] 12 U/L Normal 0-31 [facility] Comment on above: Performed By: #### C BCA, CMP, 1987-10, 83215-8 #### [facility] ([id number]) [address] [place] [address] 38251 Anion gap [Moles/Vol] 13 mmol/L Normal 5-15 [facility] Comment on above: Performed By: #### C BCA, CMP, 1987-10, #### [facility] ([id number]) [address] [place] [address] 82715 AST [Catalytic activity/Vol] 21 U/L Normal 0-41 [facility] Comment on above: Performed By: #### C BCA, CMP, 1987-10, #### [facility] ([id number]) [address] [place] [address] 13705 Bilirubin [Mass/Vol] 0.3 mg/dL Normal 0.3-1.2 [facility] Comment on above: Performed By: #### C BCA, CMP, 1987-10, #### [facility] ([id number]) [address] [place] [address] 89377 Calcium [Mass/Vol] 8.7 mg/dL Normal 8.5-10.[address] [facility] Comment on above: Performed By: #### C BCA, CMP, 1987-10, #### [facility] ([id number]) [address] [place] [address] 50875 Chloride [Moles/Vol] 99 mmol/L Normal 98-109 [facility] Comment on above: Performed By: #### C BCA, CMP, 1987-10, #### [facility] ([id number]) [address] [place] [address] 09177 CO2 [Moles/Vol] 25 mmol/L Normal 22-32 [facility] Comment on above: Performed By: #### C BCA, CMP, 1987-10, #### [facility] ([id number]) [address] [place] [address] 65042 Creatinine [Mass/Vol] 0.94 mg/dL Normal 0.40-1.00 [facility] Comment on above: Result Comment: METH OD TRACEABLE TO IDMS STANDARD Performed By: #### C ZULY RIOJAS, 1987-10, #### [facility] ([id number]) [address] [place] [address] 64590 GFR/1.73 sq M.predicted among non-blacks MDRD (S/P/Bld) [Vol rate/Area] 67 mL/min/{1.73_m2} Normal >59 [facility] Comment on above: Result Comment: Reported eGFR is based on the CKD-EPI 2020 equation that does not use a race coefficient. Performed By: #### C ZULY RIOJAS, 1987-10, 25241-8 #### [facility] ([id number]) [address] [place] [address] 60869 Glucose [Mass/Vol] 230 mg/dL High 65-[address] [facility] Comment on above: Performed By: #### C ZULY RIOJAS, 1987-10, #### [facility] ([id number]) [address] [place] [address] 54847 Potassium [Moles/Vol] 4.4 mmol/L Normal 3.5-5.0 [facility] Comment on above: Performed By: #### C ZULY RIOJAS, 1987-10, 79387-1 #### [facility] ([id number]) [address] [place] [address] 09444 Protein [Mass/Vol] 7.6 g/dL Normal 6.0-8.[address] [facility] Comment on above: Performed By: #### C ZULY RIOJAS, 1987-10, 23864-5 #### [facility] ([id number]) [address] [place] [address] 72817 Sodium [Moles/Vol] 137 mmol/L Normal 134-[address] [facility] Comment on above: Performed By: #### C ZULY RIOJAS, 1987-10, #### [facility] ([id number]) [address] [place] [address], [place] [address] Urea nitrogen [Mass/Vol] 29 mg/dL High 5-27 [facility] Comment on above: Performed By: #### C SHINE, CMP, 1987-10, 30645-3 #### [facility] ([id number]) [address] [place] [address] 73923 MAGNESIUMon 05-30-2024 Magnesium [Mass/Vol] 2.2 mg/dL Normal 1.8-2.6 [facility] Comment on above: Performed By: #### C SHINE, CMP, 1987-10, 04304-5 #### [facility] ([id number]) [address] [place] [address] 79568 CBC AND AUTO DIFFon 05-29-20 24 ABSOLUTE BASOPHIL 0.0 X10E9/L Normal 0.0-0.[address] [facility] Comment on above: Performed By: #### C SHINE, [facility], 1987-10, 12701-8 #### [facility] ([id number]) [address] [place] [address] 14485 ABSOLUTE NEUTROPHIL 8.2 X10E9/L High 1.5-6.6 [facility] Comment on above: Performed By: #### C BCA, CMP, 1987-10, 75839-1 #### [facility] ([id number]) [address] [place] [address] 82751 Basophils/100 WBC (Bld) 0.5 % Normal [facility] Comment on above: Performed By: #### C BCA, CMP, 1987-10, 95846-3 #### [facility] ([id number]) [address] [place] [address] 41253 Eosinophils (Bld) [#/Vol] 0.0 10*3/uL Normal 0.0-0.4 [facility] Comment on above: Performed By: #### C BCA, CMP, 1987-10, 27498-5 #### [facility] ([id number]) [address] [place] [address] 89096 Eosinophils/100 WBC (Bld) 0.1 % Normal [facility] Comment on above: Performed By: #### Felisha RIOJAS [facility], 1987-10, 90538-2 #### [facility] ([id number]) [address] [place] [address] 33877 Erythrocyte distribution width (RBC) [Ratio] 13.2 % Normal 11.5-15.0 [facility] Comment on above: Performed By: #### C SHINE [facility], 1987-10, #### [facility] ([id number]) [address] [place] [address] 42003 Hematocrit (Bld) [Volume fraction] 44.2 % Normal 35-47 [facility] Comment on above: Performed By: #### Felisha RIOJAS [facility], 1987-10, 64200-5 #### [facility] ([id number]) [address] [place] [address] 35019 Hemoglobin (Bld) [Mass/Vol] 14.9 g/dL Normal 11.7-15.5 [facility] Comment on above: Performed By: #### Felisha RIOJAS [facility], 1987-10, #### [facility] ([id number]) [address] [place] [address] 24176 Lymphocytes (Bld) [#/Vol] 0.8 10*3/uL Low 1.0-3.5 [facility] Comment on above: Performed By: #### Felisha RIOJAS CMP, 1987-10, 96220-1 #### [facility] ([id number]) [address] [place] [address] 78482 Lymphocytes/100 WBC (Bld) 8.3 % Normal [facility] Comment on above: Performed By: #### Felisha RIOJAS [facility], 1987-10, #### [facility] ([id number]) [address] [place] [address] 67802 MCH (RBC) [Entitic mass] 30.4 pg Normal 27-34 [facility] Comment on above: Performed By: #### C SHINE [facility], 1987-10, 28833-6 #### [facility] ([id number]) [address] [place] [address] 53725 MCHC (RBC) [Mass/Vol] 33.7 g/dL Normal 32-36 [facility] Comment on above: Performed By: #### C SHINE [facility], 1987-10, #### [facility] ([id number]) [address] [place] [address] 13975 MCV (RBC) [Entitic vol] 90 fL Normal 80-100 [facility] Comment on above: Performed By: #### Felisha RIOJAS [facility], 1987-10, #### [facility] ([id number]) [address] [place] [address] 73921 Monocytes (Bld) [#/Vol] 0.1 10*3/uL Normal 0-0.9 [facility] Comment on above: Performed By: #### Felisha RIOJAS [facility], 1987-10, #### [facility] ([id number]) [address] [place] [address] 10991 Monocytes/100 WBC (Bld) 1.2 % Normal [facility] Comment on above: Performed By: #### C SHINE [facility], 1987-10, #### [facility] ([id number]) [address] [place] [address] 09092 Neutrophils/100 WBC (Bld) 89.9 % Normal [facility] Comment on above: Performed By: #### Felisha RIOJAS [facility], 1987-10, #### [facility] ([id number]) [address] [place] [address] [place] [address] Platelet mean volume (Bld) [Entitic vol] 7.9 fL Normal 7-12 [facility] Comment on above: Performed By: #### C SHINE CMP, 1987-10, 58389-9 #### [facility] ([id number]) [address] [place] [address] 05292 Platelets (Bld) [#/Vol] 434 10*3/uL Normal 150-450 [facility] Comment on above: Performed By: #### C SHINE CMP, 1987-10, 49433-0 #### [facility] ([id number]) [address] [place] [address] 45977 RBC COUNT 4.90 X10E12/L Normal 3.80-5.20 [facility] Comment on above: Performed By: #### C SHINE CMP, 1987-10, 15827-4 #### [facility] ([id number]) [address] [place] [address] 74135 WBC (Bld) [#/Vol] 9.1 10*3/uL Normal 4.0-11.[address] [facility] Comment on above: Performed By: #### C SHINE CMP, 1987-10, 18500-7 #### [facility] ([id number]) [address] [place] [address] 62980 COMPREHENSIVE METABOLIC PANE Deven 05-29-2024 Albumin [Mass/Vol] 3.5 g/dL Normal 3.2-5.[address] [facility] Comment on above: Performed By: #### C SHINE, CMP, 1987-10, 98975-3 #### [facility] ([id number]) [address] [place] [address] 10746 ALP [Catalytic activity/Vol] 62 U/L Normal 39-130 [facility] Comment on above: Performed By: #### C SHINE CMP, 1987-10, 07050-7 #### [facility] ([id number]) [address] [place] [address] 74869 ALT [Catalytic activity/Vol] 13 U/L Normal 0-31 [facility] Comment on above: Performed By: #### C SHINE, CMP, 1987-10, 31746-3 #### [facility] ([id number]) [address] [place] [address] 61061 Anion gap [Moles/Vol] 10 mmol/L Normal 5-15 [facility] Comment on above: Performed By: #### C SHINE, [facility], 1987-10, 02007-2 #### [facility] ([id number]) [address] [place] [address] 30872 AST [Catalytic activity/Vol] 17 U/L Normal 0-41 [facility] Comment on above: Performed By: #### C SHINE [facility], 1987-10, 40651-4 #### [facility] ([id number]) [address] [place] [address] 55216 Bilirubin [Mass/Vol] 0.3 mg/dL Normal 0.3-1.2 [facility] Comment on above: Performed By: #### C SHINE, CMP, 1987-10, 47021-1 #### [facility] ([id number]) [address] [place] [address] 99540 Calcium [Mass/Vol] 8.9 mg/dL Normal 8.5-10.[address] [facility] Comment on above: Performed By: #### C SHINE, CMP, 1987-10, 96954-9 #### [facility] ([id number]) [address] [place] [address] 19568 Chloride [Moles/Vol] 101 mmol/L Normal 98-109 [facility] Comment on above: Performed By: #### C BCA, CMP, 1987-10, 84213-4 #### [facility] ([id number]) [address] [place] [address] [place] [address] CO2 [Moles/Vol] 28 mmol/L Normal 22-32 [facility] Comment on above: Performed By: #### C ZULY RIOJAS, 1987-10, 17009-4 #### [facility] ([id number]) [address] [place] [address] 72505 Creatinine [Mass/Vol] 0.90 mg/dL Normal 0.40-1.00 [facility] Comment on above: Result Comment: METH OD TRACEABLE TO IDMS STANDARD Performed By: #### C ZULY RIOJAS, 1987-10, 59526-0 #### [facility] ([id number]) [address] [place] [address] 23050 GFR/1.73 sq M.predicted among non-blacks MDRD (S/P/Bld) [Vol rate/Area] 71 mL/min/{1.73_m2} Normal >59 [facility] Comment on above: Result Comment: Reported eGFR is based on the CKD-EPI 2020 equation that does not use a race coefficient. Performed By: #### C ZULY RIOJAS, 1987-10, 19333-5 #### [facility] ([id number]) [address] [place] [address] 69757 Glucose [Mass/Vol] 204 mg/dL High 65-[address] [facility] Comment on above: Performed By: #### C ZULY RIOJAS, 1987-10, 79449-8 #### [facility] ([id number]) [address] [place] [address] 72800 Potassium [Moles/Vol] 4.7 mmol/L Normal 3.5-5.0 [facility] Comment on above: Performed By: #### C ZULY RIOJAS, 1987-10, 27638-6 #### [facility] ([id number]) [address] [place] [address] 31275 Protein [Mass/Vol] 7.5 g/dL Normal 6.0-8.[address] [facility] Comment on above: Performed By: #### C SHINE [facility], 1987-10, 55495-3 #### [facility] ([id number]) [address] [place] [address] 16923 Sodium [Moles/Vol] 139 mmol/L Normal 134-[address] [facility] Comment on above: Performed By: #### C SHINE [facility], 1987-10, 01862-2 #### [facility] ([id number]) [address] [place] [address] 52686 Urea nitrogen [Mass/Vol] 20 mg/dL Normal 5-27 [facility] Comment on above: Performed By: #### C SHINE [facility], 1987-10, 99749-9 #### [facility] ([id number]) [address] [place] [address] 79462 Fibrin D-dimer DDU (PPP) [Ma ss/Vol]on 05-29-2024 D DIMER <150 Normal <255 [facility] Comment on above: Result Comment: Results <255 ng/mL DDU: The presence of a VTE can safely be excluded with a negative D-Dimer result and Wells score. A negative result doesn't exclude the possibility of DIC. The test be repeated along with other diagnostic tests if the patient's symptoms persist or worsen. [email or web address] Performed By: #### C SHINE [facility], 1987-10, 15261-5 #### [facility] ([id number]) [address] [place] [address] 40381 MAGNESIUMon 05-29-2024 Magnesium [Mass/Vol] 2.0 mg/dL Normal 1.8-2.6 [facility] Comment on above: Performed By: #### C SHINE [facility], 1987-10, 01542-6 #### [facility] ([id number]) [address] [place] [address] 76809 CBC AND AUTO DIFFon 05-28-20 24 ABSOLUTE BASOPHIL 0.1 X10E9/L Normal 0.0-0.[address] [facility] Comment on above: Performed By: #### C SHINE [facility], 1987-10, #### [facility] ([id number]) [address] [place] [address] 50340 ABSOLUTE NEUTROPHIL 4.7 X10E9/L Normal 1.5-6.6 [facility] Comment on above: Performed By: #### C SHINE [facility], 1987-10, #### [facility] ([id number]) [address] [place] [address] 34420 Basophils/100 WBC (Bld) 1.3 % Normal [facility] Comment on above: Performed By: #### Felisha RIOJAS [facility], 1987-10, #### [facility] ([id number]) [address] [place] [address] 64492 Eosinophils (Bld) [#/Vol] 0.2 10*3/uL Normal 0.0-0.4 [facility] Comment on above: Performed By: #### Felisha RIOJAS [facility], 1987-10, 07280-9 #### [facility] ([id number]) [address] [place] [address] 71630 Eosinophils/100 WBC (Bld) 2.3 % Normal [facility] Comment on above: Performed By: #### C SHINE [facility], 1987-10, 80138-2 #### [facility] ([id number]) [address] [place] [address] 12655 Erythrocyte distribution width (RBC) [Ratio] 13.5 % Normal 11.5-15.0 [facility] Comment on above: Performed By: #### Felisha RIOJAS [facility], 1987-10, #### [facility] ([id number]) [address] [place] [address] 97972 Hematocrit (Bld) [Volume fraction] 41.6 % Normal 35-47 [facility] Comment on above: Performed By: #### C SHINE [facility], 1987-10, #### [facility] ([id number]) [address] [place] [address] 86123 Hemoglobin (Bld) [Mass/Vol] 14.0 g/dL Normal 11.7-15.5 [facility] Comment on above: Performed By: #### C SHINE [facility], 1987-10, #### [facility] ([id number]) [address] [place] [address] 02938 Lymphocytes (Bld) [#/Vol] 3.1 10*3/uL Normal 1.0-3.5 [facility] Comment on above: Performed By: #### Felisha RIOJAS [facility], 1987-10, #### [facility] ([id number]) [address] [place] [address] 31889 Lymphocytes/100 WBC (Bld) 35.0 % Normal [facility] Comment on above: Performed By: #### Felisha RIOJAS [facility], 1987-10, #### [facility] ([id number]) [address] [place] [address] [id number] MCH (RBC) [Entitic mass] 30.3 pg Normal 27-34 [facility] Comment on above: Performed By: #### C [facility], 1987-10, #### [facility] ([id number]) [address] [place] [address] 19511 MCHC (RBC) [Mass/Vol] 33.6 g/dL Normal 32-36 [facility] Comment on above: Performed By: #### Felisha RIOJAS [facility], 1987-10, #### [facility] ([id number]) [address] [place] [address] 82678 MCV (RBC) [Entitic vol] 90 fL Normal 80-100 [facility] Comment on above: Performed By: #### C ZULY RIOJAS, 1988-10, #### [facility] ([id number]) [address] [place] [address] 36619 Monocytes (Bld) [#/Vol] 0.7 10*3/uL Normal 0-0.9 [facility] Comment on above: Performed By: #### Felisha RIOJAS CMP, 1987-10, #### [facility] ([id number]) [address] [place] [address] 51727 Monocytes/100 WBC (Bld) 7.8 % Normal [facility] Comment on above: Performed By: #### Felisha RIOJAS CMP, 1987-10, #### [facility] ([id number]) [address] [place] [address] [phone] Neutrophils/100 WBC (Bld) 53.6 % Normal [facility] Comment on above: Performed By: #### Felisha RIOJAS [facility], 1987-10, #### [facility] ([id number]) [address] [place] [address] [id number] Platelet mean volume (Bld) [Entitic vol] 7.7 fL Normal 7-12 [facility] Comment on above: Performed By: #### Felisha RIOJAS CMP, 1987-10, #### [facility] ([id number]) [address] [place] [address] 87145 Platelets (Bld) [#/Vol] 382 10*3/uL Normal 150-450 [facility] Comment on above: Performed By: #### Felisha RIOJAS CMP, 1987-10, #### [facility] ([id number]) [address] [place] [address] [id number] RBC COUNT 4.61 X10E12/L Normal 3.80-5.20 [facility] Comment on above: Performed By: #### C SHINE, CMP, 1987-10, 86985-1 #### [facility] ([id number]) [address] [place] [address] 84504 WBC (Bld) [#/Vol] 8.8 10*3/uL Normal 4.0-11.[address] [facility] Comment on above: Performed By: #### C BCA, CMP, 1987-10, 68935-8 #### [facility] ([id number]) [address] [place] [address] 86311 COMPREHENSIVE METABOLIC PANE [facility] 05-28-2024 Albumin [Mass/Vol] 3.2 g/dL Normal 3.2-5.[address] [facility] Comment on above: Performed By: #### C BCA, CMP, 1987-10, 41639-5 #### [facility] ([id number]) [address] [place] [address] 11409 ALP [Catalytic activity/Vol] 58 U/L Normal 39-130 [facility] Comment on above: Performed By: #### C BCA, CMP, 1987-10, 55125-3 #### [facility] ([id number]) [address] [place] [address] 99695 ALT [Catalytic activity/Vol] 13 U/L Normal 0-31 [facility] Comment on above: Performed By: #### C BCA, CMP, 1987-10, 52868-9 #### [facility] ([id number]) [address] [place] [address] 52958 Anion gap [Moles/Vol] 8 mmol/L Normal 5-15 [facility] Comment on above: Performed By: #### C BCA, CMP, 1987-10, 32385-7 #### [facility] ([id number]) [address] [place] [address] 00227 AST [Catalytic activity/Vol] 13 U/L Normal 0-41 [facility] Comment on above: Performed By: #### C SHINE CMP, 1987-10, 39523-4 #### [facility] ([id number]) [address] [place] [address] 45729 Bilirubin [Mass/Vol] 0.3 mg/dL Normal 0.3-1.2 [facility] Comment on above: Performed By: #### C SHINE, CMP, 1987-10, #### [facility] ([id number]) [address] [place] [address] 98965 Calcium [Mass/Vol] 8.4 mg/dL Low 8.5-10.[address] [facility] Comment on above: Performed By: #### C ZULY RIOJAS, 1987-10, #### [facility] ([id number]) [address] [place] [address] 22676 Chloride [Moles/Vol] 100 mmol/L Normal 98-109 [facility] Comment on above: Performed By: #### C SHINE CMP, 1987-10, 44351-9 #### [facility] ([id number]) [address] [place] [address] 46074 CO2 [Moles/Vol] 30 mmol/L Normal 22-32 [facility] Comment on above: Performed By: #### C SHINE, CMP, 1987-10, 39336-1 #### [facility] ([id number]) [address] [place] [address] 30629 Creatinine [Mass/Vol] 0.83 mg/dL Normal 0.40-1.00 [facility] Comment on above: Result Comment: METH OD TRACEABLE TO IDMS STANDARD Performed By: #### C SHINE CMP, 1987-10, 92267-0 #### [facility] ([id number]) [address] [place] [address] 56240 GFR/1.73 sq M.predicted among non-blacks MDRD (S/P/Bld) [Vol rate/Area] 78 mL/min/{1.73_m2} Normal >59 [facility] Comment on above: Result Comment: Reported eGFR is based on the CKD-EPI 2020 equation that does not use a race coefficient. Performed By: #### C SHINE [facility], 1987-10, 79449-0 #### [facility] ([id number]) [address] [place] [address] 54422 Glucose [Mass/Vol] 111 mg/dL High 65-[address] [facility] Comment on above: Performed By: #### C SHINE [facility], 1987-10, 54961-0 #### [facility] ([id number]) [address] [place] [address] 42064 Potassium [Moles/Vol] 3.9 mmol/L Normal 3.5-5.0 [facility] Comment on above: Performed By: #### C SHNIE [facility], 1987-10, 44703-6 #### [facility] ([id number]) [address] [place] [address] 07491 Protein [Mass/Vol] 7.0 g/dL Normal 6.0-8.[address] [facility] Comment on above: Performed By: #### C SHINE [facility], 88740-1 #### [facility] ([id number]) [address] [place] [address] 48280 Sodium [Moles/Vol] 138 mmol/L Normal 134-[address] [facility] Comment on above: Performed By: #### C SHINE [facility], 18810-2 #### [facility] ([id number]) [address] [place] [address] 48195 Urea nitrogen [Mass/Vol] 18 mg/dL Normal 5-27 [facility] Comment on above: Performed By: #### C SHINE [facility], 84450-4 #### [facility] ([id number]) [address] [place] [address] MAGNESIUMon 05-28-2024 Magnesium [Mass/Vol] 1.9 mg/dL Normal 1.8-2.6 [facility] Comment on above: Performed By: #### C SHINE [facility], #### [facility] ([id number]) [address] [place] [address] 55547 Magnesium [Mass/Vol] 2.1 mg/dL Normal 1.8-2.6 [facility] Comment on above: Performed By: #### C SHINE [facility], #### [facility] ([id number]) [address] [place] [address] 70638 Mycoplasma pneumoniae?Antibo dy, IgMon 05-28-2024 M. pneumoniae Antibody IgM 0.45 U/L Normal <=0.76 [facility] Comment on above: Result Comment: NOTE INTERPRETIVE [...] more than 12 months post-infection. Performed By: [id number] [email or web address] [address] [place] [address] 28406 Compositor Apprentice: Alexis Vieyra MD, PhD CLIA Number: [id number] Performed By: #### C SHINE [facility], 98034-0 #### [facility] ([id number]) [address] [place] [address] 26831 Natriuretic peptide B [Mass/ Vol]on 05-28-2024 Natriuretic peptide B (Bld) [Mass/Vol] 57 pg/mL Normal <100.0 [facility] Comment on above: Performed By: #### C ZULY RIOJAS, 1987-10, 57067-9 #### [facility] ([id number]) [address] [place] [address] 29419 Procalcitonin IA [Mass/Vol]o n 05-28-2024 PROCALCITONIN 0.05 ng/mL High <0.05 [facility] Comment on above: Result Comment: NOTE <0.50 ng/mL - Low risk of severe sepsis and/or septic shock. <2.00 ng/mL - Recommend retesting within 6-24 hours. >2.00 ng/mL - High risk of sepsis and/or septic shock. Performed By: #### C SHINE [facility], 1987-10, 92108-4 #### [facility] ([id number]) [address] [place] [address] 87696 RESP PATHOGENS/AMJX-ZgV-[id number] 05-28-2024 Respiratory pathogens DNA and RNA panel [...] 2 Not detected (qualifier value) NOTE The [employer] Respiratory Panel 2.1 (RP2.1) is a multiplexed [...] patient with possible respiratory tract infection. Normal [facility] Comment on above: Performed By: #### C SHINE, [facility], 1987-10, 44156-5 #### [facility] ([id number]) [address] [place] [address], [place] [address] SARS/FLU A+B/RSV by NAAT/Mol ecularon 05-28-2024 SARS/FLU [...] operators who are performing tests using either [employer] or [employer] systems and is limited to laboratories that [...] repeat. Fact Sheet for Healthcare Providers: https://www.fda.gov/med ia/234123/download Fact Sheet for Patients: https://www.fda.gov/med ia/732740/download Normal [facility] Comment on above: Performed By: #### C ZULY RIOJAS, 1987-10, 65905-3 #### [facility] ([id number]) [address] [place] [address], [place] [address] Troponin I.cardiac High sens itivity method [Mass/Vol]on 05-28-2024 1 HOUR TROP I, HIGH SENSITIVITY 2 ng/L Normal <16 [facility] Comment on above: Performed By: #### C ZULY RIOJAS, 1987-10, 97093-2 #### [facility] ([id number]) [address] [place] [address] 55692 TROPONIN I, HIGH SENSITIVITY 3 ng/L Normal <16 [facility] Comment on above: Performed By: #### C ZULY RIOJAS, 1987-10, 53172-1 #### [facility] ([id number]) [address] [place] [address] 34774 XR CHEST 1 VWon 05-28-2024 XR CHEST [...] Brody MD on 05/28/2024 6:11 PM Normal [facility] FREE T3on 05-11-2024 Free T3 [Mass/Vol] 3.17 pg/mL Normal 2.50-3.[address] [facility] Comment on above: Performed By: #### C ZULY RIOJAS, 66805-0 #### [facility] ([id number]) [address] [place] [address] 17525 FREE T4on 05-11-2024 Free T4 [Mass/Vol] 0.91 ng/dL Normal 0.61-1.[address] [facility] Comment on above: Performed By: #### C ZULY RIOJAS, 1987-10, 00211-7 #### [facility] ([id number]) [address] [place] [address] 90412 TSH Qnon 05-11-2024 TSH 0.86 uIU/mL Normal 0.49-4.67 [facility] Comment on above: Performed By: #### 3 016-3, 3051-0, 3024-7 #### [facility] ([id number]) [address] [place] [address] US RETROPERITONEAL LIMITEDon 03-24-2024 US RETROPERITONEAL LIMITED [...] Rucker MD on 03/24/2024 10:50 AM Normal [facility] CT LOW DOSE LUNG SCREENINGon 02-29-2024 CT [...] aided detection for pulmonary nodules?was performed utilizing [employer] software.? FINDINGS: Diagnostic quality: Satisfactory Lung nodules: [...] 9:00 AM 2 LDCT 1 Yr Normal [facility] FREE T3on 02-24-2024 Free T3 [Mass/Vol] 3.19 pg/mL Normal 2.50-3.[address] [facility] Comment on above: Performed By: #### 3 016-3, 3051-0, 3024-7 #### [facility] ([id number]) [address], [address] [place] [address] FREE T4on 02-24-2024 Free T4 [Mass/Vol] 1.15 ng/dL Normal 0.61-1.[address] [facility] Comment on above: Performed By: #### 3 016-3, 3051-0, 3024-7 #### [facility] ([id number]) [address], [address] [place] [address] TSH Qnon 02-24-2024 TSH 0.29 uIU/mL Low 0.49-4.67 [facility] Comment on above: Performed By: #### 3 016-3, 3051-0, 3024-7 #### [facility] ([id number]) [address], [address] [place] [address] CBC AND AUTO DIFFon 01-15-20 24 ABSOLUTE BASOPHIL 0.1 X10E9/L Normal 0.0-0.[address] [facility] Comment on above: Performed By: #### C SHINE [facility], 1987-10, 28420-3 #### [facility] ([id number]) [address] [place] [address] 50454 ABSOLUTE NEUTROPHIL 8.5 X10E9/L High 1.5-6.6 [facility] Comment on above: Performed By: #### Felisha RIOJAS [facility], 1987-10, #### [facility] ([id number]) [address] [place] [address] 93770 Basophils/100 WBC (Bld) 1.0 % Normal [facility] Comment on above: Performed By: #### Felisha RIOJAS [facility], 1987-10, #### [facility] ([id number]) [address] [place] [address] 41322 Eosinophils (Bld) [#/Vol] 0.1 10*3/uL Normal 0.0-0.4 [facility] Comment on above: Performed By: #### Felisha RIOJAS [facility], 1987-10, #### [facility] ([id number]) [address] [place] [address] 84742 Eosinophils/100 WBC (Bld) 0.7 % Normal [facility] Comment on above: Performed By: #### Felisha RIOJAS [facility], 1987-10, 22019-9 #### [facility] ([id number]) [address] [place] [address] 76791 Erythrocyte distribution width (RBC) [Ratio] 13.8 % Normal 11.5-15.0 [facility] Comment on above: Performed By: #### Felisha RIOJAS [facility], 1987-10, 45076-8 #### [facility] ([id number]) [address] [place] [address] 57085 Hematocrit (Bld) [Volume fraction] 45.2 % Normal 35-47 [facility] Comment on above: Performed By: #### C SHINE [facility], 1987-10, 99400-7 #### [facility] ([id number]) [address] [place] [address] 50870 Hemoglobin (Bld) [Mass/Vol] 14.9 g/dL Normal 11.7-15.5 [facility] Comment on above: Performed By: #### Felisha RIOJAS [facility], 1987-10, #### [facility] ([id number]) [address] [place] [address] 10419 Lymphocytes (Bld) [#/Vol] 2.1 10*3/uL Normal 1.0-3.5 [facility] Comment on above: Performed By: #### Felisha RIOJAS [facility], 1987-10, #### [facility] ([id number]) [address] [place] [address] 47106 Lymphocytes/100 WBC (Bld) 18.5 % Normal [facility] Comment on above: Performed By: #### Felisha RIOJAS [facility], 1987-10, #### [facility] ([id number]) [address] [place] [address] 41197 MCH (RBC) [Entitic mass] 30.4 pg Normal 27-34 [facility] Comment on above: Performed By: #### Felisha RIOJAS [facility], 1987-10, #### [facility] ([id number]) [address] [place] [address] 88271 MCHC (RBC) [Mass/Vol] 32.9 g/dL Normal 32-36 [facility] Comment on above: Performed By: #### Felisha RIOJAS [facility], 1987-10, #### [facility] ([id number]) [address] [place] [address] 40914 MCV (RBC) [Entitic vol] 92 fL Normal 80-100 [facility] Comment on above: Performed By: #### C SHINE [facility], 1987-10, 81077-2 #### [facility] ([id number]) [address] [place] [address] 55860 Monocytes (Bld) [#/Vol] 0.7 10*3/uL Normal 0-0.9 [facility] Comment on above: Performed By: #### C SHINE [facility], 1987-10, #### [facility] ([id number]) [address] [place] [address] 85184 Monocytes/100 WBC (Bld) 6.2 % Normal [facility] Comment on above: Performed By: #### C SHINE [facility], 1987-10, #### [facility] ([id number]) [address] [place] [address] 52932 Neutrophils/100 WBC (Bld) 73.6 % Normal [facility] Comment on above: Performed By: #### C SHINE [facility], 1987-10, 34242-6 #### [facility] ([id number]) [address] [place] [address] 29801 Platelet mean volume (Bld) [Entitic vol] 7.2 fL Normal 7-12 [facility] Comment on above: Performed By: #### C SHINE [facility], 1987-10, 53316-3 #### [facility] ([id number]) [address] [place] [address] 82711 Platelets (Bld) [#/Vol] 435 10*3/uL Normal 150-450 [facility] Comment on above: Performed By: #### Felisha RIOJAS [facility], 1987-10, 89908-9 #### [facility] ([id number]) [address] [place] [address] 49248 RBC COUNT 4.90 X10E12/L Normal 3.80-5.20 [facility] Comment on above: Performed By: #### C SHIEN, CMP, 1987-10, 49532-5 #### [facility] ([id number]) [address] [place] [address] 97386 WBC (Bld) [#/Vol] 11.5 10*3/uL High 4.0-11.0 [facility] Comment on above: Performed By: #### C SHINE, CMP, 1987-10, 01003-4 #### [facility] ([id number]) [address] [place] [address] 69668 COMPREHENSIVE METABOLIC PANE Deven 01-15-2024 Albumin [Mass/Vol] 3.4 g/dL Normal 3.2-5.[address] [facility] Comment on above: Performed By: #### C SHINE CMP, 1987-10, 22654-6 #### [facility] ([id number]) [address] [place] [address] 95725 ALP [Catalytic activity/Vol] 67 U/L Normal 39-130 [facility] Comment on above: Performed By: #### C SHINE, [facility], 1987-10, #### [facility] ([id number]) [address] [place] [address] 44967 ALT [Catalytic activity/Vol] 15 U/L Normal 0-31 [facility] Comment on above: Performed By: #### C SHINE, CMP, 1987-10, 10824-2 #### [facility] ([id number]) [address] [place] [address] 28521 Anion gap [Moles/Vol] 8 mmol/L Normal 5-15 [facility] Comment on above: Performed By: #### C SHINE, CMP, 1987-10, 34105-5 #### [facility] ([id number]) [address] [place] [address] 58418 AST [Catalytic activity/Vol] 12 U/L Normal 0-41 [facility] Comment on above: Performed By: #### C ZULY RIOJAS, 1987-10, 21804-0 #### [facility] ([id number]) [address] [place] [address] 08912 Bilirubin [Mass/Vol] 0.4 mg/dL Normal 0.3-1.2 [facility] Comment on above: Performed By: #### C SHINE [facility], 1987-10, #### [facility] ([id number]) [address] [place] [address] 62410 Calcium [Mass/Vol] 8.4 mg/dL Low 8.5-10.[address] [facility] Comment on above: Performed By: #### C SHINE [facility], 1987-10, #### [facility] ([id number]) [address] [place] [address] 76722 Chloride [Moles/Vol] 101 mmol/L Normal 98-109 [facility] Comment on above: Performed By: #### C SHINE [facility], 1987-10, 70757-1 #### [facility] ([id number]) [address] [place] [address] 73484 CO2 [Moles/Vol] 30 mmol/L Normal 22-32 [facility] Comment on above: Performed By: #### Felisha RIOJSA [facility], 1987-10, #### [facility] ([id number]) [address] [place] [address] 69593 Creatinine [Mass/Vol] 0.86 mg/dL Normal 0.40-1.00 [facility] Comment on above: Result Comment: METH OD TRACEABLE TO IDMS STANDARD Performed By: #### C ZULY RIOJAS, 1987-10, #### [facility] ([id number]) [address] [place] [address] 24348 GFR/1.73 sq M.predicted among non-blacks MDRD (S/P/Bld) [Vol rate/Area] 75 mL/min/{1.73_m2} Normal >59 [facility] Comment on above: Result Comment: Reported eGFR is based on the CKD-EPI 2020 equation that does not use a race coefficient. Performed By: #### C ZULY RIOJAS, 1987-10, 40704-6 #### [facility] ([id number]) [address] [place] [address] 90727 Glucose [Mass/Vol] 116 mg/dL High 65-[address] [facility] Comment on above: Performed By: #### C SHINE [facility], 1987-10, 48483-7 #### [facility] ([id number]) [address] [place] [address] 01333 Potassium [Moles/Vol] 4.1 mmol/L Normal 3.5-5.0 [facility] Comment on above: Performed By: #### C SHINE [facility], 1987-10, #### [facility] ([id number]) [address] [place] [address] 41513 Protein [Mass/Vol] 7.2 g/dL Normal 6.0-8.[address] [facility] Comment on above: Performed By: #### C SHINE [facility], 1987-10, 06568-7 #### [facility] ([id number]) [address] [place] [address] 47078 Sodium [Moles/Vol] 139 mmol/L Normal 134-[address] [facility] Comment on above: Performed By: #### C ZULY RIOJAS, 1987-10, 93350-9 #### [facility] ([id number]) [address] [place] [address] 89198 Urea nitrogen [Mass/Vol] 22 mg/dL Normal 5-27 [facility] Comment on above: Performed By: #### C ZULY RIOJAS, 1987-10, 16856-5 #### [facility] ([id number]) [address] [place] [address] CRP [Mass/Vol]on 01-15-2024 C REACTIVE PROTEIN 1.3 mg/dL High 0.000-0.744 [facility] Comment on above: Performed By: #### C SHINE [facility], 1987-10, 75657-4 #### [facility] ([id number]) [address] [place] [address] Fibrin D-dimer DDU (PPP) [Ma ss/Vol]on 01-15-2024 D DIMER <150 Normal <255 [facility] Comment on above: Result Comment: Results <255 ng/mL DDU: The presence of a VTE can safely be excluded with a negative D-Dimer result and Wells score. A negative result doesn't exclude the possibility of DIC. The test be repeated along with other diagnostic tests if the patient's symptoms persist or worsen. [email or web address] Performed By: #### C SHINE [facility], 1987-10, 56089-5 #### [facility] ([id number]) [address] [place] [address] CONon 2 CT [...] BARRON TATUM Date: 2021-10-04 09:24 Normal [facility] METABOLIC PANE [facility] 09-19-2021 Albumin [Mass/Vol] 3.9 g/dL Normal 3.6-5.1 [facility] Comment on above: Performed By: #### 7 600, 51214, 50007 #### [facility] [place] [address] Motorboat Operator: Chalino Levy MD Albumin/Globulin [Mass ratio] 1.3 {ratio} Normal 1.0-2.5 [facility] Comment on above: Performed By: #### 7 600, 44049, 10813 #### [facility] [place] [address] Motorboat Operator: Chalino Levy MD ALP [Catalytic activity/Vol] 71 U/L Normal 37-153 [facility] Comment on above: Performed By: #### 7 600, 34529, 14785 #### [facility] [place] [address] Motorboat Operator: Chalino Levy MD ALT [Catalytic activity/Vol] 9 U/L Normal 6-29 [facility] Comment on above: Performed By: #### 7 600, 59289, 17786 #### [facility] [place] [address] Motorboat Operator: Chalino Levy MD AST [Catalytic activity/Vol] 10 U/L Normal 10-35 [facility] Comment on above: Performed By: #### 7 600, 71158, 48886 #### [facility] [place] [id number] Motorboat Operator: Chalino Levy MD Bilirubin [Mass/Vol] 0.6 mg/dL Normal 0.2-1.2 [facility] Comment on above: Performed By: #### 7 600, 97191, 88178 #### [facility] [address], [address] [place] [address] Motorboat Operator: Chalino Levy MD BUN/CREATININE RATIO NOT APPLICABLE Normal 6-22 [facility] Comment on above: Performed By: #### 7 600, 74338, 58883 #### [facility] of [address], [address] [place] [address] Motorboat Operator: Chalino Levy MD Calcium [Mass/Vol] 9.0 mg/dL Normal 8.6-10.4 [facility] Comment on above: Performed By: #### 7 600, 92500, 28579 #### [facility] [address], [address] [place] [address] Motorboat Operator: Chalino Levy MD Chloride [Moles/Vol] 103 mmol/L Normal 98-110 [facility] Comment on above: Performed By: #### 7 600, 25346, 52049 #### [facility] [place] [address] Motorboat Operator: Chalino Levy MD CO2 [Moles/Vol] 31 mmol/L Normal 20-32 [facility] Comment on above: Performed By: #### 7 600, 72892, 96653 #### [facility] of [address], [address] [place] [address] Motorboat Operator: Chalino Levy MD Creatinine [Mass/Vol] 0.79 mg/dL Normal 0.50-0.99 [facility] Comment on above: Result Comment: For patients >49 years of age, the reference limit for Creatinine is approximately 13% higher for people identified as -Romanian. Performed By: #### 7 600, 10794, 00270 #### [facility] [address], [address] [place] [address] Motorboat Operator: Chalino Levy MD eGFR NON-AFR. VIET[place]ESE 80 mL/min/1.73m2 Normal > OR = 60 [facility] Comment on above: Performed By: #### 7 600, 22895, 35976 #### [facility] [place] [address] Motorboat Operator: Chalino Levy MD GFR/1.73 sq M.predicted among blacks MDRD (S/P/Bld) [Vol rate/Area] 93 mL/min/{1.73_m2} Normal > OR = 60 [facility] Comment on above: Performed By: #### 7 600, 71385, 72088 #### [facility] [place] [address] Motorboat Operator: Chalino Levy MD Globulin (S) [Mass/Vol] 3.0 g/dL Normal 1.9-3.7 [facility] Comment on above: Performed By: #### 7 600, 74997, 70397 #### [facility] [place] [address] [employer]boat Operator: Chalino Levy MD Glucose [Mass/Vol] 105 mg/dL High 65-99 [facility] Comment on above: Result Comment: Fasting reference interval For someone without known diabetes, a glucose value between 100 and 125 mg/dL is consistent with prediabetes and should be confirmed with a follow-up test. Performed By: #### 7 600, [id number], [id number] #### [facility] [place] [address] [employer]boat Operator: Chalino Levy MD Potassium [Moles/Vol] 4.3 mmol/L Normal 3.5-5.3 [facility] Comment on above: Performed By: #### 7 600, [id number], [id number] #### [facility] [place] [address] [employer]boat Operator: Chalino Levy MD Protein [Mass/Vol] 6.9 g/dL Normal 6.1-8.1 [facility] Comment on above: Performed By: #### 7 600, [id number], [id number] #### [facility] [address], [address] [place] [address] [employer]boat Operator: Chalino Levy MD Sodium [Moles/Vol] 140 mmol/L Normal 135-146 [facility] Comment on above: Performed By: #### 7 600, [id number], [id number] #### [facility] [address], [address] [place] [address] [employer] Operator: Chalino Levy MD Urea nitrogen [Mass/Vol] 23 mg/dL Normal 7-25 [facility] Comment on above: Performed By: #### 7 600, [id number], 71401 #### [facility] [place] [address] Motorboat Operator: Chalino Levy MD LIPID PANEL, [facility] 08-22 Cholesterol [Mass/Vol] 276 mg/dL High <200 [facility] Comment on above: Order Comment: FASTI NG:YES FASTING: YES Performed By: #### 7 600, [id number], [id number] #### [facility] [place] [address] Motorboat Operator: Chalino Levy MD Cholesterol in HDL [Mass/Vol] 48 mg/dL Low > OR = 50 [facility] Comment on above: Order Comment: FASTI NG:YES FASTING: YES Performed By: #### 7 600, 20742, 68653 #### [facility] [place] [address] Motorboat Operator: Chalino Levy MD Cholesterol in LDL [...] Jose Roberto BOTELLO et al. EDGARDO. 2013;310(19): 6647-7307 (http://education.[employer].Tails.com/faq/WQQ702) Performed By: #### 7 600, 34130, 09149 #### [facility] [address], [address] [place] [address] Motorboat Operator: Chalino Levy MD Cholesterol.total/Chol esterol in HDL [Mass ratio] 5.8 {ratio} High <5.0 [facility] Comment on above: Order Comment: FASTI NG:YES FASTING: YES Performed By: #### 7 600, 28013, [id number] #### [facility] [address], [address] [place] [address] Motorboat Operator: Chalino Levy MD NON HDL CHOLESTEROL [...] therapeutic option. Performed By: #### 7 600, 08533, 09755 #### [facility] [address], [address] [place] [address] Motorboat Operator: Chalino Levy MD Triglyceride [Mass/Vol] 212 mg/dL High <150 [facility] Comment on above: Order Comment: FASTI NG:YES FASTING: YES Result Comment: If a non-fasting specimen was collected, consider repeat triglyceride testing on a fasting specimen if clinically indicated. Levy et al. J. of Clin. Lipidol. 2015;9:129-169. Performed By: #### 7 600, 61542, 90128 #### [facility] [address], [address] [place] [address] Motorboat Operator: Chalino Levy MD TSH+FREE T4on 09-19-2021 Free T4 [Mass/Vol] 1.4 ng/dL Normal 0.8-1.8 [facility] Comment on above: Performed By: #### 7 600, 35910, 25416 #### [facility] [address], [address] [place] [address] Motorboat Operator: Chalino Levy MD TSH Qn 2.51 m[IU]/L Normal 0.40-4.50 [facility] Comment on above: Performed By: #### 7 600, 24411, 20647 #### [facility] [address], [address] [place] [address] Motorboat Operator: Chalino Levy MD XR CHEST 2 [...] by: BARRON TATUM Date: 2021-09-12 16:03 Normal [facility] US ST HEAD_NECKon 08-25-[address] HEAD_NECK EXAM: US ST HEAD_NEC K HISTORY: Mass of neck COMPARISON: Ultrasound neck 02/07/2015. CT neck 01/24/2015 TECHNIQUE: Focused sonographic images in the posterior occipital region in the patient's reported area of concern. Additional left neck was scanned per human resources district manager. FINDINGS: No suspicious mass identified within the [...] ASHLEE ESCUDERO Date: 2021-08-25 09:54 Normal [facility] CBC AUTO DIFFon 07-02-2021 BASO # 0.0 103/ul Normal 0.0-0.1 [facility] Comment on above: Performed By: #### C BC #### [facility] [address] [address] [address] Bibi Emerson Basophils/100 WBC (Bld) 0.3 % Normal 0.2-2.0 [facility] Comment on above: Performed By: #### C BC #### [facility] [address] [address] [address] Bibi Emerson EO # 0.0 103/ul Normal 0.0-0.7 [facility] Comment on above: Performed By: #### C BC #### [facility] [address] [place] [address] Dr. Bibi Emerson Eosinophils/100 WBC (Bld) 0.0 % Critically low 0.9-7.0 [facility] Comment on above: Performed By: #### C BC #### [facility] [address] [place] [address] Dr. Bibi Emerson Erythrocyte distribution width (RBC) [Ratio] 13.0 % Normal 11.0-15.0 [facility] Comment on above: Performed By: #### C BC #### [facility] [address] [place] [address] Dr. Bibi Emerson Hematocrit (Bld) [Volume fraction] 47.0 % Normal 36.0-48.0 [facility] Comment on above: Performed By: #### C BC #### [facility] [address] [place] [address] Dr. Bibi Emerson Hemoglobin (Bld) [Mass/Vol] 15.5 g/dL Normal 12.0-16.0 [facility] Comment on above: Performed By: #### C BC #### [facility] [address] [place] [address] Dr. Bibi Emerson IG # 0.01 10e3/ul Normal 0.00-0.03 [facility] Comment on above: Performed By: #### C BC #### [facility] [address] [place] [address] Dr. Bibi Emerson IG % 0.2 % Normal 0.0-0.5 [facility] Comment on above: Performed By: #### C BC #### [facility] [address] [place] [address] Dr. Bibi Emerson LYMPH # 2.0 103/ul Normal 1.2-3.8 [facility] Comment on above: Performed By: #### C BC #### [facility] [address] [place] [address] Dr. Bibi Emerson Lymphocytes/100 WBC (Bld) 30.7 % Normal 20.5-60.0 [facility] Comment on above: Performed By: #### C BC #### [facility] [address] [place] [address] Dr. Bibi Emerson MANUAL DIFF REQ NO Normal [facility] Comment on above: Performed By: #### C BC #### [facility] [address] [place] [address] Dr. Bibi Emerson MCH (RBC) [Entitic mass] 29.8 pg Normal 26.7-34.0 [facility] Comment on above: Performed By: #### C BC #### [facility] [address] [place] [address] Dr. Bibi Emerson MCHC (RBC) [Mass/Vol] 33.0 g/dL Normal 29.9-35.2 [facility] Comment on above: Performed By: #### C BC #### [facility] [address] [place] [address] Dr. Bibi Emerson MCV (RBC) [Entitic vol] 90.2 fL Normal 81.0-99.0 [facility] Comment on above: Performed By: #### C BC #### [facility] [address] [place] [address] Dr. Bibi Emerson MONO # 0.5 103/ul Normal 0.3-0.8 [facility] Comment on above: Performed By: #### C BC #### [facility] [address] [place] [address] Dr. Bibi Emerson Monocytes/100 WBC (Bld) 7.9 % Normal 1.7-12.0 [facility] Comment on above: Performed By: #### C BC #### [facility] [address] [place] [address] Dr. Bibi Emerson NEUT # 4.0 103/ul Normal 1.4-6.5 [facility] Comment on above: Performed By: #### C BC #### [facility] [address] [place] [address] Dr. Bibi Emerson Neutrophils/100 WBC (Bld) 60.9 % Normal 43.0-75.0 [facility] Comment on above: Performed By: #### C BC #### [facility] [address] [place] [address] Dr. Bibi Emerson Platelet mean volume (Bld) [Entitic vol] 8.9 fL Critically low 9.5-13.5 [facility] Comment on above: Performed By: #### C BC #### [facility] [address] [place] [address] Dr. Bibi Emerson PLT 303 103/ul Normal 150-450 [facility] Comment on above: Performed By: #### C BC #### [facility] [address] [place] [address] Dr. Bibi Emerson RBC 5.21 106/ul Normal 4.20-5.40 [facility] Comment on above: Performed By: #### C BC #### [facility] [address] [place] [address] Dr. Bibi Emerson WBC 6.5 103/ul Normal 4.0-11.0 [facility] Comment on above: Performed By: #### C BC #### [facility] [address] [place] [address] Dr. Bibi Emerson [facility]22 SARS-CoV-2 (COVID-19) RNA RAAD+probe Ql (Unsp spec) Detected Critically abnormal NOT DETECTED [facility] Comment on above: Result Comment: This test is not yet approved or cleared by the [place] FDA. When there are no FDA-approved or cleared tests available, and other criteria are met, FDA can make tests available under an emergency access mechanism called an Emergency Use Authorization (EUA). The EUA for this test is supported by the Housekeeper Supervisor of Health and Human Service's (HHS's) declaration [...] used). Performed By: #### C VDTB #### [facility] [address] [address] [address] Bibi Emerson INFLUENZA A AND B AGon 07-02 [facility] SEE BELOW Normal [facility] Comment on above: Result Comment: Nega tive for Flu A protein angiten. Infection due to Flu A cannot be ruled out. Flu A angiten in the sample may be below the detection limit of the test. Performed By: #### I NFLUAB ####[facility] [address] [place] [address]DrNorma Emerson INFLUBNEG SEE BELOW Normal [facility] Comment on above: Result Comment: Nega tive for Flu B protein antigen. Infection due to Flu B cannot be ruled out. Flu B antigen in the sample may be below the detection limit of the test. Performed By: #### I NFLUAB ####[facility] [address] [place] [address]DrNorma Emerson INFLUENZA A AG Negative Normal NEGATIVE SEE COMMENT [facility] Comment on above: Performed By: #### I NFLUAB ####[facility] [address] [place], [place] [address]DrNorma Emerson INFLUENZA B AG Negative Normal NEGATIVE SEE COMMENT [facility] Comment on above: Performed By: #### I NFLUAB ####[facility] [address] [place], [place] [address]DrNorma Emerson INTERNAL CONTROLS Within Normal Limits Normal Wi thin Normal Limits [facility] Comment on above: Performed By: #### I NFLUAB ####[facility] [address] [place], [place] [address]WqDr. Bibi Emerson PROF CHEM 8 (BAS METB)on Anion gap [Moles/Vol] 12.0 mmol/L Normal [facility] Comment on above: Performed By: #### B MP #### [facility] [address] [address] [address] Bibi Emerson Calcium [Mass/Vol] 8.2 mg/dL Critically low 8.4-10.2 [facility] Comment on above: Performed By: #### B MP #### [facility] [address] [address] [address] Bibi Emerson Chloride [Moles/Vol] 102 mmol/L Normal 98-107 [facility] Comment on above: Performed By: #### B MP #### [facility] [address] [address] [address] Bibi Emerson CO2 [Moles/Vol] 27.6 mmol/L Normal 22.0-30.0 [facility] Comment on above: Performed By: #### B MP #### [facility] [address] [address] [address] Bibi Emerson Creatinine [Mass/Vol] 1.03 mg/dL Normal 0.52-1.04 [facility] Comment on above: Performed By: #### B MP #### [facility] [address] [address] [address] Bibi Emerson EGFR-AF VIETNAMESE >60 Normal >=60 [facility] Comment on above: Performed By: #### B MP #### [facility] [address] [address] [address] Bibi Emerson EGFR-NON AF VIETNAMESE 54 mL/min/1.73m2 Critically low >=60 [facility] Comment on above: Performed By: #### B MP #### [facility] [address] [address] [address] Bibi Emerson Glucose [Mass/Vol] 127 mg/dL Critically high 74-106 [facility] Comment on above: Performed By: #### B MP #### [facility] [address] [address] [address] Bibi Emerson Potassium [Moles/Vol] 3.6 mmol/L Normal 3.4-5.0 [facility] Comment on above: Performed By: #### B MP #### [facility] [address] [address] [address] Bibi Emerson Sodium [Moles/Vol] 138 mmol/L Normal 137-145 [facility] Comment on above: Performed By: #### B MP #### [facility] [address] [address] [address] Bibi Emerson Urea nitrogen [Mass/Vol] 18.0 mg/dL Critically high 7.0-17.0 [facility] Comment on above: Performed By: #### B MP #### [facility] [address] [address] [address] Bibi Emerson Urea nitrogen/Creatinine [Mass ratio] 17.5 mg/mg Normal [facility] Comment on above: Performed By: #### B MP #### [facility] [address] [id number] Bibi Emerson XR CHEST 1 Von [...] GYPSY MUÑOZ Date: 2021-07-02 21:16 Normal [facility] Covid-19 PCR (CVDTB)on SARS-CoV-2 (COVID-19) RNA RAAD+probe Ql (Unsp spec) Not detected Normal NOT DETECTED [facility] Comment on above: Result Comment: This test is not yet approved or cleared by the [place] FDA. When there are no FDA-approved or cleared tests available, and other criteria are met, FDA can make tests available under an emergency access mechanism called an Emergency Use Authorization (EUA). The EUA for this test is supported by the [place] of Health and Human Service's (HHS's) declaration [...] consistent with SARS-CoV-2. Performed By: #### C VDPAM [facility] ####[facility] [address] [place], [place] [address]He. Bibi Emerson TSH+FREE T4on 03-27-2021 Free T4 [Mass/Vol] 1.2 ng/dL Normal 0.8-1.8 [facility] Comment on above: Performed By: #### 5 [id number] #### [facility] of [address], [address] [place] [address] Motorboat Operator: Chalino Levy MD TSH Qn 2.23 m[IU]/L Normal 0.40-4.50 [facility] Comment on above: Performed By: #### 5 8984 #### [facility] [address], [address] [place] [address] Motorboat Operator: Chalino Levy MD Covid-19 PCR ([facility])on 02-20 SARS-CoV-2 (COVID-19) RNA RAAD+probe Ql (Unsp spec) Not detected Normal NOT DETECTED [facility] Comment on above: Result Comment: This test is not yet approved or cleared by the [place] FDA. When there are no FDA-approved or cleared tests available, and other criteria are met, FDA can make tests available under an emergency access mechanism called an Emergency Use Authorization (EUA). The EUA for this test is supported by the Housekeeper Supervisor of Health and Human Service's (HHS's) declaration [...] Performed By: #### C AKIL, JUANS #### [facility] [address] [place] [address] Farida Yang SYMPTOMATIC COVID-19 ANTIGEN on 03-02-2021 EUA Statement SEE BELOW Normal [facility] [place] Comment on above: Result Comment: This test [...] is revoked sooner. Performed By: #### C JUAN BARNARDS #### [facility] [address] [place] [address] Farida Celia SARS-CoV-2 (COVID-19) RNA RAAD+probe Ql (Unsp spec) Negative Normal NEGATIVE [facility] Comment on above: Result Comment: CONF IRMATION BY PCR PENDING PER CDC GUIDELINES/ SYMPTOMATIC PATIENT. Performed By: #### C AKIL, JUANS #### [facility] [address] [place] [address] Farida Yang XR CHEST 1 Von 03-02-2021 [...] PALMER GREGORIO Date: 2021-03-02 13:11 Normal [facility] Basic Metabolic PanelOrdered By: Heena John on 11-22-2020 Anion gap [Moles/Vol] 9 mmol/L 9 - 17 mmol/L [facility] Phone: Calcium [Mass/Vol] 8.3 mg/dL Low 8.6 - 10. 4 mg/dL [facility] Phone: Chloride [Moles/Vol] 103 mmol/L 98 - 10 7 mmol/L [facility] Phone: CO2 [Moles/Vol] 29 mmol/L 20 - 31 mmol/L [facility] Phone: Creatinine [Mass/Vol] 0.77 mg/dL 0.50 - 0.90 mg/dL [facility] Phone: GFR >60 >60 mL/min Where Phone: GFR Non- >60 >60 mL/min [facility] Phone: GFR/1.73 sq M.predicted MDRD (S/P/Bld) [Vol rate/Area] [facility] Phone: Comment on above: Average GFR for 60-6 9 years old: 85 mL/min/1.73sq m Chronic Kidney Disease: <60 mL/min/1.73sq m Kidney failure: <15 mL/min/1.73sq m eGFR calculated using average adult body mass. Additional eGFR calculator available at: http://www.[employer].Tails.com/multiple_crcl_2012.htm GFR/1.73 sq M.predicted MDRD (S/P/Bld) [Vol rate/Area] NOT REPORTED [facility] Phone: Glucose [Mass/Vol] 131 mg/dL High 70 - 99 mg/dL [facility]: Interpretation and review of laboratory results Abnormal [facility] Phone: Potassium [Moles/Vol] 4.5 mmol/L 3.7 - 5.3 mmol/L [facility] Phone: Sodium [Moles/Vol] 141 mmol/L 135 - 144 mmol/L [facility] Phone: Urea nitrogen (BldV) [Mass/Vol] 21 mg/dL 8 - 23 mg/dL [facility] Phone: Urea nitrogen/Creatinine (Bld) [Mass ratio] NOT REPORTED [facility] Phone: [facility] Phone: Basic Metabolic Profon 11-22 (cont.) Normal [facility] Comment on above: Result Comment: Aver age GFR for 60-69 years old: 85 mL/min/1.73sq m Chronic Kidney Disease: <60 mL/min/1.73sq m Kidney failure: <15 mL/min/1.73sq m eGFR calculated using average adult body mass. Additional eGFR calculator available at: http://www.[employer].Tails.com/multiple_crcl_2011.htm Performed By: #### C MARION, BMP #### [facility] [address] [place] [address] Graduate Teacher Education: Justin Chambers DO Anion gap [Moles/Vol] 9 mmol/L Normal 9-17 [facility] Comment on above: Performed By: #### C DP, BMP #### [facility] [address] [place] [address] Graduate Teacher Education: Justin Chambers DO Calcium [Mass/Vol] 8.3 mg/dL Low 8.6-10.4 [facility] Comment on above: Performed By: #### C DP, BMP #### [facility] [address] [place] [address] Graduate Teacher Education: Justin Chambers DO Chloride [Moles/Vol] 103 mmol/L Normal 98-107 [facility] Comment on above: Performed By: #### C DP, BMP #### [facility] [address] [place] [address] Graduate Teacher Education: Justin Chambers DO CO2 [Moles/Vol] 29 mmol/L Normal 20-31 [facility] Comment on above: Performed By: #### C DP, BMP #### [facility] [place] [address] Graduate Teacher Education: Justin Chambers DO Creatinine [Mass/Vol] 0.77 mg/dL Normal 0.50-0.90 [facility] Comment on above: Performed By: #### C DP, BMP #### [facility] [place] [address] Graduate Teacher Education: Justin Chambers DO GFR, Amer >60 Normal >60 [facility] Comment on above: Performed By: #### C DP, BMP #### [facility] [place] [address] Graduate Teacher Education: Justin Chambers DO GFR,non Amer >60 Normal >60 [facility] Comment on above: Performed By: #### C DP, BMP #### [facility] [address] [place], [place] [address] [place] [address] Graduate Teacher Education: Justin Chambers DO Glucose [Mass/Vol] 131 mg/dL High 70-99 [facility] Comment on above: Performed By: #### C DP, BMP #### [facility] [address] [place] [address] Graduate Teacher Education: Justin Chambers DO Potassium [Moles/Vol] 4.5 mmol/L Normal 3.7-5.3 [facility] Comment on above: Performed By: #### C DP, BMP #### [facility] [address] [place] [address] Graduate Teacher Education: Justin Chambers DO Sodium [Moles/Vol] 141 mmol/L Normal 135-144 [facility] Comment on above: Performed By: #### C MARION, BMP #### [facility] [address] [place] [address] Graduate Teacher Education: Justin Chambers DO Urea nitrogen [Mass/Vol] 21 mg/dL Normal 8-23 [facility] Comment on above: Performed By: #### C MARION, BMP #### [facility] [address] [place] [address] Graduate Teacher Education: Justin Chambers DO BUN/CRE Ratio NOT REPORTED Normal 9-20 [facility] Comment on above: Performed By: #### C MARION, BMP #### [facility] [address] [place] [address] Graduate Teacher Education: Justin Chambers DO Staging: NOT REPORTED Normal [facility] Comment on above: Performed By: #### C DP, BMP #### [facility] [address] [place] [address] Graduate Teacher Education: Justin Chambers DO CBC Auto DifferentialOrdered By: Heena John on 11-22-2020 Absolute Eos # 0.40 [facility] Work Phone: Absolute Immature Granulocyte NOT REPORTED [facility] Work Phone: Absolute Lymph # 1.80 [facility] Work Phone: Absolute [place] # 0.50 [employer] [facility] Work Phone: Basophils (Bld) [#/Vol] 0.10 10*3/uL [employer] Work Phone: Basophils/100 WBC (Bld) 1 % 0 - 2 % [facility] Phone: Differential Type NOT REPORTED [facility] Phone: Eosinophils/100 WBC (Bld) 4 % 0 - 4 % [employer] Work Phone: Hematocrit (Bld) [Volume fraction] 42.5 % 36 - 46 % [facility] Phone: Hemoglobin.gastrointes tinal spec 1 Ql (Stl) 13.8 g/dL 12.0 - 16.0 g/dL [facility] Phone: Immature Granulocytes NOT REPORTED 0 % [employer] Work Phone: Interpretation and review of laboratory results Abnormal [facility] Phone: Lymphocytes/100 WBC (Bld) 19 % Low 24 - 44 % [facility] Phone: MCH (RBC) [Entitic mass] 29.5 pg 26 - 34 pg [facility] Phone: MCHC (RBC) [Mass/Vol] 32.5 g/dL 31 - 3 7 g/dL [facility] Phone: MCV (RBC) [Entitic vol] 90.8 fL 80 - 100 fL [employer] Work Phone: Monocytes/100 WBC (Bld) 6 % 1 - 7 % [facility] Phone: NRBC Automated NOT REPORTED per 100 WBC [facility] Work Phone: Platelet distribution width (Bld) [Ratio] 13.3 % 11.5 - 14.9 % [facility] Phone: Platelet Estimate NOT REPORTED [facility] Phone: Platelet mean volume (Bld) [Entitic vol] 7.2 fL 6.0 - 12.0 fL [facility] Phone: Platelets (Bld) [#/Vol] 388 10*3/uL [facility] Phone: RBC (Bld) [#/Vol] 4.68 10*6/uL 4.0 - 5.2 m/uL [employer] Work Phone: RBC (Bld) [#/Vol] NOT REPORTED [facility] Phone: Segmented neutrophils/100 WBC (Bld) 70 % High 36 - 66 % [employer] Work Phone: Segs Absolute 6.70 [employer] Work Phone: WBC (Bld) [#/Vol] 9.4 10*3/uL [employer] Work Phone: WBC (Bld) [#/Vol] NOT REPORTED [facility] Phone: [employer] Work Phone: CBC with Diffon 11-22-2020 Abs. Basophil 0.10 k/uL Normal 0.0-0.2 [facility] Comment on above: Performed By: #### C DP, BMP #### [facility] [address] [place], [place] [id number] Graduate Teacher Education: Justin Chambers DO Abs.Neutrophil (Seg) 6.70 k/uL Normal 1.3-9.1 [facility] Comment on above: Performed By: #### C DP, BMP #### [facility] [address] [place] [address] Graduate Teacher Education: Justin Chambers DO Basophils/100 WBC (Bld) 1 % Normal 0-2 [facility] Comment on above: Performed By: #### C DP, BMP #### [facility] [address] [facility] [place] [address] Graduate Teacher Education: Justin Chambers DO Eosinophils (Bld) [#/Vol] 0.40 10*3/uL Normal 0.0-0.4 [facility] Comment on above: Performed By: #### C DP, BMP #### [facility] [place] [address] Graduate Teacher Education: Justin Chambers DO Eosinophils/100 WBC (Bld) 4 % Normal 0-4 [facility] Comment on above: Performed By: #### C DP, BMP #### [facility] [address] [place] [address] Graduate Teacher Education: Justin Chambers DO Erythrocyte distribution width (RBC) [Ratio] 13.3 % Normal 11.5-14.9 [facility] Comment on above: Performed By: #### C DP, BMP #### [facility] [address] [place] [address] Graduate Teacher Education: Justin Chambers DO Hematocrit (Bld) [Volume fraction] 42.5 % Normal 36-46 [facility] Comment on above: Performed By: #### C DP, BMP #### [facility] [address] [place] [address] Graduate Teacher Education: Justin Chambers DO Hemoglobin (Bld) [Mass/Vol] 13.8 g/dL Normal 12.0-16.0 [facility] Comment on above: Performed By: #### C DP, BMP #### [facility] [address] [place] [address] 0[address] Graduate Teacher Education: Justin Chambers DO Lymphocytes (Bld) [#/Vol] 1.80 10*3/uL Normal 1.0-4.8 [facility] Comment on above: Performed By: #### C DP, BMP #### [facility] [place] [address] Graduate Teacher Education: Justin Chambers DO Lymphocytes/100 WBC (Bld) 19 % Low 24-44 [facility] Comment on above: Performed By: #### C DP, BMP #### [facility] [address] [place] [address] 35271 Graduate Teacher Education: Justin Chambers DO MCH (RBC) [Entitic mass] 29.5 pg Normal 26-34 [facility] Comment on above: Performed By: #### C MARION, BMP #### [facility] [address] [place] [address] 71329 Graduate Teacher Education: Justin Chambers DO MCHC (RBC) [Mass/Vol] 32.5 g/dL Normal 31-37 [facility] Comment on above: Performed By: #### C MARION, BMP #### [facility] [address] [place] [address] 28755 Graduate Teacher Education: Justin Chambers DO MCV (RBC) [Entitic vol] 90.8 fL Normal 80-100 [facility] Comment on above: Performed By: #### C MARION, BMP #### [facility] [address] [place] [address] 28190 Graduate Teacher Education: Justin Chambers DO Monocytes (Bld) [#/Vol] 0.50 10*3/uL Normal 0.1-1.3 [facility] Comment on above: Performed By: #### C DP, BMP #### [facility] [address] [place] [address] 12128 Graduate Teacher Education: Justin Chambers DO Monocytes/100 WBC (Bld) 6 % Normal 1-7 [facility] Comment on above: Performed By: #### C DP, BMP #### [facility] [place] [address] Graduate Teacher Education: Justin Chambers DO Neutrophil (Seg) 70 % High 36-66 [facility] Comment on above: Performed By: #### C DP, BMP #### [facility] [place] [address] Graduate Teacher Education: Justin Chambers DO Platelet mean volume (Bld) [Entitic vol] 7.2 fL Normal 6.0-12.0 [facility] Comment on above: Performed By: #### C DP, BMP #### [facility] [address] [place] [address]12 Graduate Teacher Education: Justin Chambers DO Platelets (Bld) [#/Vol] 388 10*3/uL Normal 150-450 [facility] Comment on above: Performed By: #### C MARION, BMP #### [facility] [address] [place] [address] 24367 Graduate Teacher Education: Justin Chambers DO RBC (Bld) [#/Vol] 4.68 10*6/uL Normal 4.0-5.2 [facility] Comment on above: Performed By: #### C MARION, BMP #### [facility] [address] [place] [address] 7[address]57 Graduate Teacher Education: uJstin Chambers DO WBC (Bld) [#/Vol] 9.4 10*3/uL Normal 3.5-11.0 [facility] Comment on above: Performed By: #### C DP, BMP #### [facility] [address] [place] [address] 78081 Graduate Teacher Education: Justin Chambers DO Abs.Imm.Granulocyte NOT REPORTED Normal 0.00-0.30 [facility] Comment on above: Performed By: #### C DP, BMP #### [facility] [address] [facility] [place] [address] Graduate Teacher Education: Justin Chambers DO Auto Diff Performed NOT REPORTED Normal [facility] Comment on above: Performed By: #### C DP, BMP #### [facility] [address] [facility] [place] [address] Graduate Teacher Education: Justin Chambers DO Immature Granulocyte NOT REPORTED Normal 0 [facility] Comment on above: Performed By: #### C DP, BMP #### [facility] [address] [place] [address] Graduate Teacher Education: Justin Chambers DO NRBC Automated NOT REPORTED Normal [facility] Comment on above: Performed By: #### C DP, BMP #### [facility] [address] [place] [address]444 Graduate Teacher Education: Justin Chambers DO Platelet Estimate NOT REPORTED Normal [facility] Comment on above: Performed By: #### C DP, BMP #### [facility] [facility] [place] [address] Graduate Teacher Education: Justin Chambers DO RBC morphology finding Nom (Bld) NOT REPORTED Normal [facility] Comment on above: Performed By: #### C DP, BMP #### [facility] [address] [place] [address] 96[address] Graduate Teacher Education: Justin Chambers DO WBC Morphology NOT REPORTED Normal [facility] Comment on above: Performed By: #### C DP, BMP #### [facility] [address] [place] [address]641 Graduate Teacher Education: Justin Chambers DO COVID-19, RapidOrdered By: Ifeoma John on 11-22-2020 SARS-CoV-2 (COVID-19) RNA RAAD+probe Ql (Unsp spec) Not detected Not Detected [employer] Phone: Comment on above: Rapid NAAT: The [...] management decisions. Fact sheet for Healthcare Providers: https://www.fda.gov/media/125002/download Fact sheet for Patients: https://www.fda.gov/media/033534/download Methodology: Isothermal Nucleic Acid Amplification Specimen Description .NASOPHARYNGEAL SWAB [facility] Phone: [facility] Phone: [id number] 11-22-2020 SARS-CoV-2 (COVID-19) RNA RAAD+probe Ql (Unsp spec) Not detected Normal [facility] Comment on above: Result Comment: Rapid [...] management decisions. Fact sheet for Healthcare Providers: https://www.fda.gov/media/020323/download Fact sheet for Patients: https://www.fda.gov/media/432326/download Methodology: Isothermal Nucleic Acid Amplification Performed By: #### C OVRB #### [facility] [address] [place] [address] Graduate Teacher Education: Justin Chambers DO XR CHEST PORTABLEon 11-23-19 [...] Ryanne Cantrell MD 11/22/20 Final result Normal [facility] XR CHEST PORTABLEOrdered By: Heena John on 11-22-2020 No acute cardiopulmonary process. Stable cardiomegaly and chronic basilar changes. [facility] Phone: EXAMINATION: ONE XRA Y VIEW OF [...] are age-appropriate. Chronic basilar changes are noted. [facility] Phone: Jose Antonio, Mhpn Incoming Radiant Results From [employer] - 11/22/2020 1:15 PM EDT EXAMINATION: ONE [...] process. Stable cardiomegaly and chronic basilar changes. [employer] Work Phone: [facility] Phone: CT HEAD WO CONTRASTon 2019 CT [...] Huma Contreras MD 04/18/20 Final result Normal [facility] CBCon 04-16-2020 Erythrocyte distribution width (RBC) [Ratio] 13.0 % Normal 11.8-14.4 [facility] Comment on above: Performed By: #### C BC, CP, TSH #### [facility] [address] [place] [phone] Graduate Teacher Education: Beau Troncoso MD Hematocrit (Bld) [Volume fraction] 45.8 % Normal 36.3-47.1 [facility] Comment on above: Performed By: #### C KIMBERLY CP, TSH #### [facility] [address] [place] [address] 0[address] Graduate Teacher Education: Beau Troncoso MD Hemoglobin (Bld) [Mass/Vol] 14.3 g/dL Normal 11.9-15.1 [facility] Comment on above: Performed By: #### C BC, CP, TSH #### [facility] [address] [place] [address] 12636 Graduate Teacher Education: Beau Troncoso MD MCH (RBC) [Entitic mass] 29.5 pg Normal 25.2-33.5 [facility] Comment on above: Performed By: #### C KIMBERLY CP, TSH #### [address] [address] Graduate Teacher Education: Beau Troncoso MD MCHC (RBC) [Mass/Vol] 31.2 g/dL Normal 28.4-34.8 [facility] Comment on above: Performed By: #### C KIMBERLY CP, TSH #### [address] [address] Graduate Teacher Education: Beau Troncoso MD MCV (RBC) [Entitic vol] 94.6 fL Normal 82.6-102.9 [facility] Comment on above: Performed By: #### C KIMBERLY CP, TSH #### [facility] [address] [place] [address]019 Graduate Teacher Education: Beau Troncoso MD NRBC Automated 0.0 per 100 WBC Normal 0.0 [facility] Comment on above: Performed By: #### C BC CP, TSH #### [facility] [address] [place] [address] 84323 Graduate Teacher Education: Beau Troncoso MD Platelet mean volume (Bld) [Entitic vol] 9.6 fL Normal 8.1-13.5 [facility] Comment on above: Performed By: #### C MEERA HARRIS, TSH #### [facility] [address] [place] [address] Graduate Teacher Education: Beau Troncoso MD Platelets (Bld) [#/Vol] 419 10*3/uL Normal 138-453 [facility] Comment on above: Performed By: #### C MEERA HARRIS, TSH #### [facility] [address] [place] [address] Graduate Teacher Education: Beau Troncoso MD RBC (Bld) [#/Vol] 4.84 10*6/uL Normal 3.95-5.11 [facility] Comment on above: Performed By: #### Felisha HARRIS CP, TSH #### [facility] [address] [place] [address]20 Graduate Teacher Education: Beau Troncoso MD WBC (Bld) [#/Vol] 7.6 10*3/uL Normal 3.5-11.3 [facility] Comment on above: Performed By: #### Felisha HARRIS CP, TSH #### [facility] [address] [place] [address] 24164 Graduate Teacher Education: Beau Troncoso MD Erythrocyte distribution width (RBC) [Ratio] 13.0 % 11.8 - 14.4 % [place] Hematocrit (Bld) [Volume fraction] 45.8 % 36.3 - 47.1 % [place] Hemoglobin (Bld) [Mass/Vol] 14.3 g/dL 11.9 - 15.1 g/dL [place] MCH (RBC) [Entitic mass] 29.5 pg 25.2 - 33.5 pg [place] MCHC (RBC) [Mass/Vol] 31.2 g/dL 28.4 - 34.8 g/dL [place] MCV (RBC) [Entitic vol] 94.6 fL 82.6 - 102.9 fL [place] Platelet mean volume (Bld) [Entitic vol] 9.6 fL 8.1 - 13.5 fL [place] Platelets (Bld) [#/Vol] 419 10*3/uL [place] RBC (Bld) [#/Vol] 4.84 10*6/uL 3.95 - 5.1 1 m/uL [place] WBC (Bld) [#/Vol] 0.0 10*3/uL 0.0 per 10 0 WBC [place] WBC (Bld) [#/Vol] 7.6 10*3/uL [place] Comp Metabolic Profon 2019 (cont.) Normal [facility] Comment on above: Result Comment: Aver age GFR for 60-69 years old: 85 mL/min/1.73sq m Chronic Kidney Disease: <60 mL/min/1.73sq m Kidney failure: <15 mL/min/1.73sq m eGFR calculated using average adult body mass. Additional eGFR calculator available at: http://www.[employer].Tails.com/multiple_crcl_2011.htm Performed By: #### C MEERA HARRIS, TSH #### [facility] [address] [place] [address] Graduate Teacher Education: Beau Troncoso MD Albumin [Mass/Vol] 4.0 g/dL Normal 3.5-5.2 [facility] Comment on above: Performed By: #### Felisha HARRIS CP, TSH #### [facility] [address] [place] [address] 96088 Graduate Teacher Education: Beau Troncoso MD Albumin/Globulin [Mass ratio] 1.4 {ratio} Normal 1.0-2.5 [facility] Comment on above: Performed By: #### C MEERA HARRIS, TSH #### [facility] [address] [place] [address] 95182 Graduate Teacher Education: Beau Troncoso MD Alkaline Phos 67 U/L Normal 35-104 [facility] Comment on above: Performed By: #### C BC, CP, TSH #### [facility] [address] [place] [address] 80086 Graduate Teacher Education: Beau Troncoso MD ALT [Catalytic activity/Vol] 13 U/L Normal 5-33 [facility] Comment on above: Performed By: #### C BC, CP, TSH #### [facility] [address] [place] [address] 54142 Graduate Teacher Education: Beau Troncoso MD Anion gap [Moles/Vol] 8 mmol/L Low 9-17 [facility] Comment on above: Performed By: #### C BC, CP, TSH #### [facility] [address] [place] [address] 52556 Graduate Teacher Education: Beau Troncoso MD AST [Catalytic activity/Vol] 12 U/L Normal <32 [facility] Comment on above: Performed By: #### C BC, CP, TSH #### [facility] [address] [place] [address] 88849 Graduate Teacher Education: Beau Troncoso MD Bilirubin Ql (U) 0.30 mg/dL Normal 0.3-1.2 [facility] Comment on above: Performed By: #### C BC, CP, TSH #### [facility] [address] [place] [address] 69682 Graduate Teacher Education: Beau Troncoso MD Calcium [Mass/Vol] 8.7 mg/dL Normal 8.6-10.4 [facility] Comment on above: Performed By: #### C BC, CP, TSH #### [facility] [address] [place] [address] 71754 Graduate Teacher Education: Beau Troncoso MD Chloride [Moles/Vol] 102 mmol/L Normal 98-107 [facility] Comment on above: Performed By: #### C BC, CP, TSH #### [facility] [address] [place] [address] 43349 Graduate Teacher Education: Beau Troncoso MD CO2 [Moles/Vol] 32 mmol/L High 20-31 [facility] Comment on above: Performed By: #### C BC, CP, TSH #### [facility] [address] [place] [address] 27280 Graduate Teacher Education: Beau Troncoso MD Creatinine [Mass/Vol] 0.78 mg/dL Normal 0.50-0.90 [facility] Comment on above: Performed By: #### C BC, CP, TSH #### [facility] [address] [place] [address] 07420 Graduate Teacher Education: Beau Troncoso MD GFR, Amer >60 Normal >60 [facility] Comment on above: Performed By: #### C BC, CP, TSH #### [facility] [address] [place] [address] 84710 Graduate Teacher Education: Beau Troncoso MD GFR,non Amer >60 Normal >60 [facility] Comment on above: Performed By: #### C BC, CP, TSH #### [facility] [address] [place] [address] 52742 Graduate Teacher Education: Beau Troncoso MD Glucose [Mass/Vol] 86 mg/dL Normal 70-99 [facility] Comment on above: Performed By: #### C BC, CP, TSH #### [facility] [address] [place] [address] 38838 Graduate Teacher Education: Beau Troncoso MD Potassium [Moles/Vol] 4.7 mmol/L Normal 3.7-5.3 [facility] Comment on above: Performed By: #### C BC, CP, TSH #### [facility] [address] [place] [address]366 Graduate Teacher Education: Beau Troncoso MD Protein [Mass/Vol] 6.8 g/dL Normal 6.4-8.3 [facility] Comment on above: Performed By: #### C BC, CP, TSH #### [facility] [address] [place] [address] Graduate Teacher Education: Beau Troncoso MD Sodium [Moles/Vol] 142 mmol/L Normal 135-144 [facility] Comment on above: Performed By: #### C BC, CP, TSH #### [facility] [address] [place] [address] Graduate Teacher Education: Beau Troncoso MD Urea nitrogen [Mass/Vol] 22 mg/dL Normal 8- [facility] Comment on above: Performed By: #### C BC, CP, TSH #### [facility] [address] [place] [address] 51428 Graduate Teacher Education: Beau Troncoso MD BUN/CRE Ratio NOT REPORTED Normal 03-11 [facility] Comment on above: Performed By: #### C BC, CP, TSH #### [facility] [address] [place] [address] 04028 Graduate Teacher Education: Beau Troncoso MD Staging: NOT REPORTED Normal [facility] Comment on above: Performed By: #### C BC, CP, TSH #### [facility] [address] [place] [address] 32425 Graduate Teacher Education: Beau Troncoso MD Comprehensive Metabolic [facility] 04-16-2020 Albumin [Mass/Vol] 4 g/dL 3.5 - 5.2 g/dL [place] Albumin/Globulin [Mass ratio] 1.4 {ratio} [place] ALP [Catalytic activity/Vol] 67 U/L 35 - 104 U/L [place] ALT [Catalytic activity/Vol] 13 U/L 5 - 33 U/L [place] Anion gap [Moles/Vol] 8 mmol/L Low 9 - 17 mmol/L [place] AST [Catalytic activity/Vol] 12 U/L <32 [place] Bilirubin Ql (U) 0.30 mg/dL 0.3 - 1.2 mg/dL [place] Bun/Cre Ratio NOT REPORTED [place] Calcium [Mass/Vol] 8.7 mg/dL 8.6 - 10. 4 mg/dL [place] Chloride [Moles/Vol] 102 mmol/L 98 - 10 7 mmol/L [place] CO2 [Moles/Vol] 32 mmol/L High 20 - 31 mmol/L [place] Creatinine [Mass/Vol] 0.78 mg/dL 0.5 - 0.9 mg/dL [place] GFR >60 >60 mL/min [place] GFR Non- >60 >60 mL/min [place] GFR/1.73 sq M predicted among non-blacks MDRD (S/P/Bld) [Vol rate/Area] [place] Comment on above: Average GFR for 60-6 9 years old: 85 mL/min/1.73sq m Chronic Kidney Disease: <60 mL/min/1.73sq m Kidney failure: <15 mL/min/1.73sq m eGFR calculated using average adult body mass. Additional eGFR calculator available at: http://www.[employer]/multiple_crcl_2012.htm GFR/1.73 sq M predicted among non-blacks MDRD (S/P/Bld) [Vol rate/Area] NOT REPORTED [place] Glucose [Mass/Vol] 86 mg/dL 70 - 99 mg/dL [place] Interpretation and review of laboratory results Abnormal [place] Potassium [Moles/Vol] 4.7 mmol/L 3.7 - 5.3 mmol/L [place] Protein [Mass/Vol] 6.8 g/dL 6.4 - 8.3 g/dL [place] Sodium [Moles/Vol] 142 mmol/L 135 - 144 mmol/L [place] Urea nitrogen [Mass/Vol] 22 mg/dL 8 - 23 mg/dL [place] Hemoglobin A1Con 04-16-2020 Glucose [Mass/Vol] 126 mg/dL [place] Comment on above: The ADA and AACC rec ommend providing the estimated average glucose result to permit better patient understanding of their HBA1c result. HbA1c (Bld) [Mass fraction] 6.0 % 4 - 6 % [place] TSH without Reflexon 020 TSH Qn 0.89 m[IU]/L [place], [place] Thyroid Stim. Horm.on 2019 TSH Qn 0.89 m[IU]/L Normal 0.30-5.00 [facility] Comment on above: Performed By: #### C BC, CP, TSH #### [facility] [place] [address] Graduate Teacher Education: Beau Troncoso MD MRI SHOULDER RIGHT WO [...] Blas Godwin MD 03/25/20 Final result Normal [facility] 1. Moderate acromioclavicular osteoarthritis with reactive edema in the distal clavicle and acromion. 2. Minimal 2 mm interstitial tear of the infraspinatus tendon. Mild bursal surface fraying of the supraspinatus and infraspinatus tendons. No additional rotator cuff tear. 3. No biceps tear. [facility] [place] EXAMINATION: MRI OF THE RIGHT SHOULDER [...] are without obstructing or space occupying lesions. [facility] [place], [place] Jose Antonio, Mhpn Incoming Radiant Results From [email or web address] - 03/25/2020 4:57 PM EDT EXAMINATION: MRI [...] rotator cuff tear. 3. No biceps tear. [place] C-Reactive Proteinon 020 CRP [Mass/Vol] 13 mg/L High 0 - 5 mg/L [place], [place] CBC Auto Differentialon 10-20 Basophils (Bld) [#/Vol] 0.10 10*3/uL [place] Basophils/100 WBC (Bld) 1 % 0 - 2 % [place] Differential Type NOT REPORTED [place] Eosinophils (Bld) [#/Vol] 0.20 10*3/uL [place] Eosinophils/100 WBC (Bld) 3 % 0 - 4 % [place] Erythrocyte distribution width (RBC) [Ratio] 13.0 % 11.5 - 14.9 % [place] Hematocrit (Bld) [Volume fraction] 42.0 % 36 - 46 % [place] Hemoglobin (Bld) [Mass/Vol] 13.8 g/dL 12 - 16 g/dL [place] Interpretation and review of laboratory results Abnormal [place] Lymphocytes (Bld) [#/Vol] 1.10 10*3/uL [place] Lymphocytes/100 WBC (Bld) 13 % Low 24 - 44 % [place] MCH (RBC) [Entitic mass] 30.5 pg 26 - 34 pg [place] MCHC (RBC) [Mass/Vol] 32.7 g/dL 31 - 3 7 g/dL [place] MCV (RBC) [Entitic vol] 93.1 fL 80 - 100 fL [place] Monocytes (Bld) [#/Vol] 0.50 10*3/uL [place] Monocytes/100 WBC (Bld) 5 % 1 - 7 % [place] Platelet mean volume (Bld) [Entitic vol] 6.9 fL 6 - 12 fL [place] Platelets (Bld) [#/Vol] 382 10*3/uL [place] Platelets (Bld) [#/Vol] NOT REPORTED [place] RBC (Bld) [#/Vol] 4.51 10*6/uL 4 - 5.2 m/uL [place] RBC morphology finding Nom (Bld) NOT REPORTED [place] Segmented neutrophils/100 WBC (Bld) 78 % High 36 - 66 % [place] Segs Absolute 6.90 [place] WBC (Bld) [#/Vol] 8.8 10*3/uL [place] WBC (Bld) [#/Vol] NOT REPORTED per 100 WBC [place] WBC Morphology NOT REPORTED [place] Comprehensive Metabolic Pane deven 11-02-2019 Albumin [Mass/Vol] 4.1 g/dL 3.5 - 5.2 g/dL [place] Albumin/Globulin [Mass ratio] NOT REPORTED [place] ALP [Catalytic activity/Vol] 61 U/L 35 - 104 U/L [place] ALT [Catalytic activity/Vol] 13 U/L 5 - 33 U/L [place] Anion gap [Moles/Vol] 7 mmol/L Low 9 - 17 mmol/L [place] AST [Catalytic activity/Vol] 12 U/L <32 [place] Bilirubin Ql (U) 0.29 mg/dL Low 0.3 - 1.2 mg/dL [place] Bun/Cre Ratio NOT REPORTED [facility] [place] Calcium [Mass/Vol] 8.7 mg/dL 8.6 - 10. 4 mg/dL [place] Chloride [Moles/Vol] 101 mmol/L 98 - 10 7 mmol/L [place] CO2 [Moles/Vol] 31 mmol/L 20 - 31 mmol/L [place] Creatinine [Mass/Vol] 0.72 mg/dL 0.5 - 0.9 mg/dL [place] GFR >60 >60 mL/min [place] GFR Non- >60 >60 mL/min [place] GFR/1.73 sq M predicted among non-blacks MDRD (S/P/Bld) [Vol rate/Area] NOT REPORTED [place] GFR/1.73 sq M predicted among non-blacks MDRD (S/P/Bld) [Vol rate/Area] [place] Comment on above: Average GFR for 60-6 9 years old: 85 mL/min/1.73sq m Chronic Kidney Disease: <60 mL/min/1.73sq m Kidney failure: <15 mL/min/1.73sq m eGFR calculated using average adult body mass. Additional eGFR calculator available at: http://www.[employer]/multiple_crcl_2012.htm Glucose [Mass/Vol] 118 mg/dL High 70 - 99 mg/dL [place] Potassium [Moles/Vol] 4.8 mmol/L 3.7 - 5.3 mmol/L [place] Protein [Mass/Vol] 7.5 g/dL 6.4 - 8.3 g/dL [place] Sodium [Moles/Vol] 139 mmol/L 135 - 144 mmol/L [place] Urea nitrogen [Mass/Vol] 21 mg/dL 8 - 23 mg/dL [place] D-Dimer, Quantitativeon 10-20 D-Dimer, Quant <0.27 [place] Comment on above: When combined with [...] LD 173 U/L 135 - 214 U/L [place] Lactic Acid, Plasmaon 2019 Lactate [Moles/Vol] 0.5 mmol/L 0.5 - 2. 2 mmol/L [place] Lactic Acid, Whole Blood NOT REPORTED 0.7 - 2.1 mmol/L [place] Otheron 11-02-2019 Interpretation and review of laboratory results Abnormal [place] Immature granulocytes (Bld) [#/Vol] NOT REPORTED [place] Troponinon 11-02-2019 Troponin I.cardiac [Mass/Vol] NOT REPORTED [place] Troponin T.cardiac [Mass/Vol] NOT REPORTED <0.03 ng/mL [place] Troponin, High Sensitivity <6 0 - 14 ng/L [place] Comment on above: High Sensitivity Troponin values cannot be compared with other Troponin methodologies. Patients with high levels of Biotin oral intake (i.e >5mg/day) may have falsely decreased Troponin levels. Samples collected within 8 hours of biotin intake may require additional information for diagnosis. Troponin I.cardiac [Mass/Vol] NOT REPORTED [place] Troponin T.cardiac [Mass/Vol] NOT REPORTED <0.03 ng/mL [place] Troponin, High Sensitivity <6 0 - 14 ng/L [place] Comment on above: High Sensitivity Troponin [...] unremarkable. The extrathoracic soft tissues are unremarkable. [place] Cardiomegaly and chronic pulmonary change without acute pulmonary process. [place] Jose Antonio, Mhpn Incoming Radiant Results From [employer] - 11/02/2019 10:59 AM EDT EXAMINATION: ONE [...] chronic pulmonary change without acute pulmonary process. [place], [place] B.[place] CELL COUNTon 10-07-19 20 Fluid Diff Comment Reviewed by pathologist: Justin Chambers D.O. [place], [place] Comment on above: SLIDE REVIEWED. MACR OPHAGES AND MIXED INFLAMMATORY CELLS NOTED. CORRECTED ON 10/06 AT 1306: PREVIOUSLY REPORTED TO BE REVIEWED BY PATHOLOGIST RBC (Bld) [#/Vol] 913 /mm3 [place], [place] Specimen type Nom (Spec) .BRONCHIAL WASHINGS [place], [place] WBC (Bld) [#/Vol] 38 /mm3 [facility] [place] Culture, Respiratoryon 10-06 Culture NORMAL RESPIRATORY CHERYL MODERATE GROWTH [place], [place] Direct Exam FEW NEUTROPHILS Abnormal [place] Interpretation and review of laboratory results Abnormal [place] Special Requests NOT REPORTED [place] Specimen Description .BRONCHIAL WASHINGS [place] Fungal stainon 10-07-2019 Direct Exam NO FUNGAL ELEMENTS SEEN [place], [place] Special Requests NOT REPORTED [place] Specimen Description .BRONCHIAL WASHINGS [place], [place] Otheron 10-07-2019 Direct Exam Positive Abnormal [place] CBC with DIFFon 10-06-2019 Basophils (Bld) [#/Vol] 0.14 10*3/uL [place], [place] Basophils/100 WBC (Bld) 1 % 0 - 2 % [place] Differential Type NOT REPORTED [place] Eosinophils (Bld) [#/Vol] 0.00 10*3/uL [place] Eosinophils/100 WBC (Bld) 0 % 0 - 4 % [place] Erythrocyte distribution width (RBC) [Ratio] 13.4 % 11.5 - 14.9 % [place] Hematocrit (Bld) [Volume fraction] 40.9 % 36 - 46 % [place] Hemoglobin (Bld) [Mass/Vol] 13.5 g/dL 12 - 16 g/dL [place] Interpretation and review of laboratory results Abnormal [place] Lymphocytes (Bld) [#/Vol] 1.15 10*3/uL [place] Lymphocytes/100 WBC (Bld) 8 % Low 24 - 44 % [place] MCH (RBC) [Entitic mass] 30.6 pg 26 - 34 pg [place] MCHC (RBC) [Mass/Vol] 33.0 g/dL 31 - 3 7 g/dL [place] MCV (RBC) [Entitic vol] 92.7 fL 80 - 100 fL [place] Monocytes (Bld) [#/Vol] 0.29 10*3/uL [place] Monocytes/100 WBC (Bld) 2 % 1 - 7 % [place] Morphology Den (Bld) [Interp] Normal [place] Platelet mean volume (Bld) [Entitic vol] 7.3 fL 6 - 12 fL [place], [place] Platelets (Bld) [#/Vol] NOT REPORTED [place] Platelets (Bld) [#/Vol] 419 10*3/uL [place] RBC (Bld) [#/Vol] 4.41 10*6/uL 4 - 5.2 m/uL [place] RBC morphology finding Nom (Bld) NOT REPORTED [place] Segmented neutrophils/100 WBC (Bld) 89 % High 36 - 66 % [place] Segs Absolute 12.82 High [place], [place] WBC (Bld) [#/Vol] NOT REPORTED per 100 WBC [place] WBC (Bld) [#/Vol] 14.4 10*3/uL [place] WBC Morphology NOT REPORTED [place] Cell Count with Diff, BALon 10-06-2019 BAL Diff Comment TO BE REVIEWED BY PATHOLOGIST [place] Columnar Epis BAL PRESENT [place], [place] Eosinophils/100 WBC (Bld) 4 % High 0 - 1 % [place] Interpretation and review of laboratory results Abnormal [place] Lymphocytes/100 WBC (Bld) 13 % High 8 - 12 % [place] Macrophages, BAL 61 % Low 85 - 95 % [place] Segmented neutrophils/100 WBC (Bld) 22 % High 0 - 10 % [place] Comp Metabolic Profon 2019 Albumin [Mass/Vol] 3.5 g/dL 3.5 - 5.2 g/dL [place] Albumin/Globulin [Mass ratio] NOT REPORTED [place] ALP [Catalytic activity/Vol] 49 U/L 35 - 104 U/L [place] ALT [Catalytic activity/Vol] 10 U/L 5 - 33 U/L [place] Anion gap [Moles/Vol] 12 mmol/L 9 - 17 mmol/L [place] AST [Catalytic activity/Vol] 12 U/L <32 [place] Bilirubin Ql (U) 0.30 mg/dL 0.3 - 1.2 mg/dL [place] Bun/Cre Ratio NOT REPORTED [place], [place] Calcium [Mass/Vol] 9.0 mg/dL 8.6 - 10. 4 mg/dL [place] Chloride [Moles/Vol] 100 mmol/L 98 - 10 7 mmol/L [place] CO2 [Moles/Vol] 26 mmol/L 20 - 31 mmol/L [place] Creatinine [Mass/Vol] 0.72 mg/dL 0.5 - 0.9 mg/dL [place] GFR >60 >60 mL/min [place], [place] GFR Non- >60 >60 mL/min [place] GFR/1.73 sq M predicted among non-blacks MDRD (S/P/Bld) [Vol rate/Area] [place], [place] Comment on above: Average GFR for 60-6 9 years old: 85 mL/min/1.73sq m Chronic Kidney Disease: <60 mL/min/1.73sq m Kidney failure: <15 mL/min/1.73sq m eGFR calculated using average adult body mass. Additional eGFR calculator available at: http://www.[employer].Tails.com/multiple_crcl_2012.htm GFR/1.73 sq M predicted among non-blacks MDRD (S/P/Bld) [Vol rate/Area] NOT REPORTED [place] Glucose [Mass/Vol] 145 mg/dL High 70 - 99 mg/dL [place] Potassium [Moles/Vol] 4.1 mmol/L 3.7 - 5.3 mmol/L [place] Protein [Mass/Vol] 6.7 g/dL 6.4 - 8.3 g/dL [place] Sodium [Moles/Vol] 138 mmol/L 135 - 144 mmol/L [place] Urea nitrogen [Mass/Vol] 23 mg/dL 8 - 23 mg/dL [place] Culture, Virus, Respiratoryo n 10-06-2019 Culture VIRAL RESPIRATORY CULTURES ARE NOT LONGER PERFORMED [place] Special Requests NOT REPORTED [place] Specimen Description .BRONCHIAL WASHINGS [place], [place] Otheron 10-06-2019 Interpretation and review of laboratory results Abnormal [place] Immature granulocytes (Bld) [#/Vol] NOT REPORTED [place] T4, Freeon 10-06-2019 Interpretation and review of laboratory results Abnormal [place] Thyroxine, Free 2.03 ng/dL High 0.93 - 1.7 ng/dL [place] TSH with Reflexon 10-06-2019 TSH Qn 0.10 m[IU]/L Low [place], [place] Basic Metabolic Panel w/ Ref alvin to MGon 10-05-2019 Anion gap [Moles/Vol] 9 mmol/L 9 - 17 mmol/L [place] Bun/Cre Ratio NOT REPORTED [place], [place] Calcium [Mass/Vol] 8.8 mg/dL 8.6 - 10. 4 mg/dL [place] Chloride [Moles/Vol] 102 mmol/L 98 - 10 7 mmol/L [place] CO2 [Moles/Vol] 29 mmol/L 20 - 31 mmol/L [place] Creatinine [Mass/Vol] 0.72 mg/dL 0.5 - 0.9 mg/dL [place] GFR >60 >60 mL/min [place], [place] GFR Non- >60 >60 mL/min [place] GFR/1.73 sq M predicted among non-blacks MDRD (S/P/Bld) [Vol rate/Area] NOT REPORTED [place] GFR/1.73 sq M predicted among non-blacks MDRD (S/P/Bld) [Vol rate/Area] [place], [place] Comment on above: Average GFR for 60-6 9 years old: 85 mL/min/1.73sq m Chronic Kidney Disease: <60 mL/min/1.73sq m Kidney failure: <15 mL/min/1.73sq m eGFR calculated using average adult body mass. Additional eGFR calculator available at: http://www.[employer]/multiple_crcl_2012.htm Glucose [Mass/Vol] 97 mg/dL 70 - 99 mg/dL [place] Potassium [Moles/Vol] 4.3 mmol/L 3.7 - 5.3 mmol/L [place] Sodium [Moles/Vol] 140 mmol/L 135 - 144 mmol/L [place] Urea nitrogen [Mass/Vol] 18 mg/dL 8 - 23 mg/dL [place] CBC with DIFFon 10-05-2019 Basophils (Bld) [#/Vol] 0.10 10*3/uL [place] Basophils/100 WBC (Bld) 1 % 0 - 2 % [place] Differential Type NOT REPORTED [place] Eosinophils (Bld) [#/Vol] 0.50 10*3/uL [place] Eosinophils/100 WBC (Bld) 6 % High 0 - 4 % [place] Erythrocyte distribution width (RBC) [Ratio] 13.4 % 11.5 - 14.9 % [place] Hematocrit (Bld) [Volume fraction] 40.2 % 36 - 46 % [place] Hemoglobin (Bld) [Mass/Vol] 13.4 g/dL 12 - 16 g/dL [place] Interpretation and review of laboratory results Abnormal [place] Lymphocytes (Bld) [#/Vol] 2.50 10*3/uL [place] Lymphocytes/100 WBC (Bld) 30 % 24 - 44 % [place] MCH (RBC) [Entitic mass] 30.5 pg 26 - 34 pg [place] MCHC (RBC) [Mass/Vol] 33.3 g/dL 31 - 3 7 g/dL [place] MCV (RBC) [Entitic vol] 91.5 fL 80 - 100 fL [place] Monocytes (Bld) [#/Vol] 0.90 10*3/uL [place] Monocytes/100 WBC (Bld) 11 % High 1 - 7 % [place] Platelet mean volume (Bld) [Entitic vol] 6.9 fL 6 - 12 fL [place], [place] Platelets (Bld) [#/Vol] 407 10*3/uL [place] Platelets (Bld) [#/Vol] NOT REPORTED [place] RBC (Bld) [#/Vol] 4.39 10*6/uL 4 - 5.2 m/uL [place] RBC morphology finding Nom (Bld) NOT REPORTED [place] Segmented neutrophils/100 WBC (Bld) 52 % 36 - 66 % [place] Segs Absolute 4.20 [place], [place] WBC (Bld) [#/Vol] NOT REPORTED per 100 WBC [place] WBC (Bld) [#/Vol] 8.1 10*3/uL [place] WBC Morphology NOT REPORTED [place] Otheron 10-05-2019 Immature granulocytes (Bld) [#/Vol] NOT REPORTED 0 % [place] XR CHEST PORTABLEon 10-05-19 20 EXAMINATION: [...] could better evaluate lung parenchyma if indicated. [place], [place] Jose Antonio, Mhpn Incoming Radiant Results From [employer] - 10/05/2019 6:01 PM EDT EXAMINATION: ONE [...] base. Follow up to resolution is suggested. [facility] Patchy airspace dise ase representing atelectasis or infiltrate in the right lung base. Follow up to resolution is suggested. [facility] XR CHEST PORTABLEon 09-15-19 20 Perihilar and suprahilar airspace opacities could represent interstitial edema versus developing airspace disease. Please correlate exam findings. Follow-up to assure resolution following medical treatment course recommended [facility] EXAMINATION: ONE XRA Y VIEW OF THE CHEST 09/15/2019 5:51 pm COMPARISON: 08/25/2019 HISTORY: ORDERING SYSTEM PROVIDED HISTORY: cough TECHNOLOGIST PROVIDED HISTORY: cough Reason for Exam: cough Acuity: Unknown Type of Exam: Unknown FINDINGS: The cardiomediastinal silhouette is normal in size and contour. Perihilar edema. Patchy suprahilar airspace opacities.. No pleural effusion or pneumothorax is present. [facility] Jose Antonio, Mhpn Incoming Radiant Results From [email or web address] - 09/15/2019 6:05 PM EDT EXAMINATION: ONE [...] assure resolution following medical treatment course recommended [place] CBC auto differentialon - Basophils (Bld) [#/Vol] 0.00 10*3/uL [place] Basophils/100 WBC (Bld) 0 % 0 - 2 % [place] Differential Type NOT REPORTED [place] Eosinophils (Bld) [#/Vol] 0.00 10*3/uL [place] Eosinophils/100 WBC (Bld) 0 % 0 - 4 % [place] Erythrocyte distribution width (RBC) [Ratio] 13.8 % 11.5 - 14.9 % [place] Hematocrit (Bld) [Volume fraction] 39.9 % 36 - 46 % [place] Hemoglobin (Bld) [Mass/Vol] 13.1 g/dL 12 - 16 g/dL [place] Interpretation and review of laboratory results Abnormal [place] Lymphocytes (Bld) [#/Vol] 1.00 10*3/uL [place] Lymphocytes/100 WBC (Bld) 8 % Low 24 - 44 % [place] MCH (RBC) [Entitic mass] 30.8 pg 26 - 34 pg [place] MCHC (RBC) [Mass/Vol] 32.9 g/dL 31 - 3 7 g/dL [place] MCV (RBC) [Entitic vol] 93.5 fL 80 - 100 fL [place] Monocytes (Bld) [#/Vol] 0.90 10*3/uL [place] Monocytes/100 WBC (Bld) 7 % 1 - 7 % [place] Platelet mean volume (Bld) [Entitic vol] 6.7 fL 6 - 12 fL [place] Platelets (Bld) [#/Vol] NOT REPORTED [place] Platelets (Bld) [#/Vol] 341 10*3/uL [place] RBC (Bld) [#/Vol] 4.27 10*6/uL 4 - 5.2 m/uL [place] RBC morphology finding Nom (Bld) NOT REPORTED [place] Segmented neutrophils/100 WBC (Bld) 85 % High 36 - 66 % [place] Segs Absolute 11.30 High [place] WBC (Bld) [#/Vol] NOT REPORTED per 100 WBC [place] WBC (Bld) [#/Vol] 13.2 10*3/uL [place] WBC Morphology NOT REPORTED [place] Comprehensive Metabolic Pane l w/ Reflex to MGon 08-29-2019 Albumin [Mass/Vol] 3.3 g/dL Low 3.5 - 5.2 g/dL [place] Albumin/Globulin [Mass ratio] NOT REPORTED [place] ALP [Catalytic activity/Vol] 51 U/L 35 - 104 U/L [place] ALT [Catalytic activity/Vol] 28 U/L 5 - 33 U/L [place] Anion gap [Moles/Vol] 10 mmol/L 9 - 17 mmol/L [place] AST [Catalytic activity/Vol] 19 U/L <32 [place] Bilirubin Ql (U) 0.23 mg/dL Low 0.3 - 1.2 mg/dL [place] Bun/Cre Ratio NOT REPORTED [place], [place] Calcium [Mass/Vol] 7.9 mg/dL Low 8.6 - 10. 4 mg/dL [place] Chloride [Moles/Vol] 104 mmol/L 98 - 10 7 mmol/L [place] CO2 [Moles/Vol] 28 mmol/L 20 - 31 mmol/L [place] Creatinine [Mass/Vol] 0.73 mg/dL 0.5 - 0.9 mg/dL [place] GFR >60 >60 mL/min [place], [place] GFR Non- >60 >60 mL/min [place] GFR/1.73 sq M predicted among non-blacks MDRD (S/P/Bld) [Vol rate/Area] [place], [place] Comment on above: Average GFR for 60-6 9 years old: 85 mL/min/1.73sq m Chronic Kidney Disease: <60 mL/min/1.73sq m Kidney failure: <15 mL/min/1.73sq m eGFR calculated using average adult body mass. Additional eGFR calculator available at: http://www.[employer]/multiple_crcl_2012.htm GFR/1.73 sq M predicted among non-blacks MDRD (S/P/Bld) [Vol rate/Area] NOT REPORTED [place] Glucose [Mass/Vol] 125 mg/dL High 70 - 99 mg/dL [place] Interpretation and review of laboratory results Abnormal [place] Potassium [Moles/Vol] 4.5 mmol/L 3.7 - 5.3 mmol/L [place] Protein [Mass/Vol] 5.9 g/dL Low 6.4 - 8.3 g/dL [place] Sodium [Moles/Vol] 142 mmol/L 135 - 144 mmol/L [place] Urea nitrogen [Mass/Vol] 28 mg/dL High 8 - 23 mg/dL [place], [place] Otheron 08-29-2019 Immature granulocytes (Bld) [#/Vol] NOT REPORTED [place] CBC auto differentialon Absolute Bands # 0.14 [place] Bands 1 % 0 - 10 % [place] Basophils (Bld) [#/Vol] 0.00 10*3/uL [place] Basophils/100 WBC (Bld) 0 % 0 - 2 % [place] Differential Type NOT REPORTED [place] Eosinophils (Bld) [#/Vol] 0.00 10*3/uL [place] Eosinophils/100 WBC (Bld) 0 % 0 - 4 % [place] Erythrocyte distribution width (RBC) [Ratio] 13.8 % 11.5 - 14.9 % [place] Hematocrit (Bld) [Volume fraction] 40.1 % 36 - 46 % [place] Hemoglobin (Bld) [Mass/Vol] 13.2 g/dL 12 - 16 g/dL [place] Interpretation and review of laboratory results Abnormal [place] Lymphocytes (Bld) [#/Vol] 0.85 10*3/uL Low [place] Lymphocytes/100 WBC (Bld) 6 % Low 24 - 44 % [place] MCH (RBC) [Entitic mass] 30.8 pg 26 - 34 pg [place] MCHC (RBC) [Mass/Vol] 32.9 g/dL 31 - 3 7 g/dL [place] MCV (RBC) [Entitic vol] 93.5 fL 80 - 100 fL [place], [place] Monocytes (Bld) [#/Vol] 0.99 10*3/uL [place] Monocytes/100 WBC (Bld) 7 % 1 - 7 % [place] Morphology Den (Bld) [Interp] Normal [place] Platelet mean volume (Bld) [Entitic vol] 6.7 fL 6 - 12 fL [place], [place] Platelets (Bld) [#/Vol] 339 10*3/uL [place] Platelets (Bld) [#/Vol] NOT REPORTED [place] RBC (Bld) [#/Vol] 4.29 10*6/uL 4 - 5.2 m/uL [place] RBC morphology finding Nom (Bld) NOT REPORTED [place] Segmented neutrophils/100 WBC (Bld) 86 % High 36 - 66 % [place] Segs Absolute 12.22 High [place], [place] WBC (Bld) [#/Vol] 14.2 10*3/uL [place] WBC (Bld) [#/Vol] NOT REPORTED per 100 WBC [place], [place] WBC Morphology NOT REPORTED [place] Comprehensive Metabolic Pane l w/ Reflex to MGon 08-28-2019 Albumin [Mass/Vol] 3.5 g/dL 3.5 - 5.2 g/dL [place] Albumin/Globulin [Mass ratio] NOT REPORTED [place] ALP [Catalytic activity/Vol] 52 U/L 35 - 104 U/L [place] ALT [Catalytic activity/Vol] 17 U/L 5 - 33 U/L [place] Anion gap [Moles/Vol] 10 mmol/L 9 - 17 mmol/L [place] AST [Catalytic activity/Vol] 13 U/L <32 [place] Bilirubin Ql (U) 0.16 mg/dL Low 0.3 - 1.2 mg/dL [place] Bun/Cre Ratio NOT REPORTED [place] Calcium [Mass/Vol] 7.8 mg/dL Low 8.6 - 10. 4 mg/dL [place] Chloride [Moles/Vol] 104 mmol/L 98 - 10 7 mmol/L [place] CO2 [Moles/Vol] 29 mmol/L 20 - 31 mmol/L [place] Creatinine [Mass/Vol] 0.82 mg/dL 0.5 - 0.9 mg/dL [place] GFR >60 >60 mL/min [place] GFR Non- >60 >60 mL/min [place] GFR/1.73 sq M predicted among non-blacks MDRD (S/P/Bld) [Vol rate/Area] [place], [place] Comment on above: Average GFR for 60-6 9 years old: 85 mL/min/1.73sq m Chronic Kidney Disease: <60 mL/min/1.73sq m Kidney failure: <15 mL/min/1.73sq m eGFR calculated using average adult body mass. Additional eGFR calculator available at: http://www.[employer].com/multiple_crcl_2012.htm GFR/1.73 sq M predicted among non-blacks MDRD (S/P/Bld) [Vol rate/Area] NOT REPORTED [place] Glucose [Mass/Vol] 153 mg/dL High 70 - 99 mg/dL [place] Interpretation and review of laboratory results Abnormal [place] Potassium [Moles/Vol] 4.4 mmol/L 3.7 - 5.3 mmol/L [place] Protein [Mass/Vol] 6.0 g/dL Low 6.4 - 8.3 g/dL [place] Sodium [Moles/Vol] 143 mmol/L 135 - 144 mmol/L [place] Urea nitrogen [Mass/Vol] 21 mg/dL 8 - 23 mg/dL [place] Otheron 08-28-2019 Immature granulocytes (Bld) [#/Vol] NOT REPORTED 0 % [place] Basic Metabolic Panel w/ Ref alvin to MGon 08-26-2019 Anion gap [Moles/Vol] 10 mmol/L 9 - 17 mmol/L [place] Bun/Cre Ratio NOT REPORTED [place] Calcium [Mass/Vol] 8.1 mg/dL Low 8.6 - 10. 4 mg/dL [place] Chloride [Moles/Vol] 104 mmol/L 98 - 10 7 mmol/L [place] CO2 [Moles/Vol] 26 mmol/L 20 - 31 mmol/L [place] Creatinine [Mass/Vol] 0.78 mg/dL 0.5 - 0.9 mg/dL [place] GFR >60 >60 mL/min [place] GFR Non- >60 >60 mL/min [place] GFR/1.73 sq M predicted among non-blacks MDRD (S/P/Bld) [Vol rate/Area] [place], [place] Comment on above: Average GFR for 60-6 9 years old: 85 mL/min/1.73sq m Chronic Kidney Disease: <60 mL/min/1.73sq m Kidney failure: <15 mL/min/1.73sq m eGFR calculated using average adult body mass. Additional eGFR calculator available at: http://www.[employer]Tails.com/multiple_crcl_2012.htm GFR/1.73 sq M predicted among non-blacks MDRD (S/P/Bld) [Vol rate/Area] NOT REPORTED [place] Glucose [Mass/Vol] 179 mg/dL High 70 - 99 mg/dL [place] Interpretation and review of laboratory results Abnormal [place] Potassium [Moles/Vol] 5.0 mmol/L 3.7 - 5.3 mmol/L [place] Sodium [Moles/Vol] 140 mmol/L 135 - 144 mmol/L [place] Urea nitrogen [Mass/Vol] 20 mg/dL 8 - 23 mg/dL [place] CBCon 08-26-2019 Erythrocyte distribution width (RBC) [Ratio] 13.8 % 11.5 - 14.9 % [place] Hematocrit (Bld) [Volume fraction] 41.6 % 36 - 46 % [place] Hemoglobin (Bld) [Mass/Vol] 14.1 g/dL 12 - 16 g/dL [place] MCH (RBC) [Entitic mass] 31.3 pg 26 - 34 pg [place] MCHC (RBC) [Mass/Vol] 33.9 g/dL 31 - 3 7 g/dL [place] MCV (RBC) [Entitic vol] 92.3 fL 80 - 100 fL [place] Platelet mean volume (Bld) [Entitic vol] 6.9 fL 6 - 12 fL [place], [place] Platelets (Bld) [#/Vol] 316 10*3/uL [place] RBC (Bld) [#/Vol] 4.51 10*6/uL 4 - 5.2 m/uL [place] WBC (Bld) [#/Vol] 6.9 10*3/uL [place] WBC (Bld) [#/Vol] NOT REPORTED per 100 WBC [place], [place] EKG 12 Leadon 08-26-2019 Atrial Rate 133 BPM [place], [place] P [place] 44 degrees [place], [place] P-R Interval 128 ms [place], [place] Q-T Interval 282 ms [place], [place] QRS Duration 84 ms [place], [place] QTc Calculation (Bazett) 419 ms [place] R [place] 51 degrees [place], [place] T [place] 16 degrees [place] Ventricular Rate 133 BPM [place] Sinus tachycardia Otherwise normal ECG No previous ECGs available [place] Jose Antonio, Mhpn Incoming E kg Results From [facility] - 08/26/2019 9:03 AM EST Sinus tachycardia Otherwise normal ECG No previous ECGs available [place] APTTon 08-25-2019 aPTT Coag (Bld) [Time] 30.1 s [place] Comment on above: IV Heparin Therapy Range: 62.0-94.0 Amylaseon 08-25-2019 Amylase [Catalytic activity/Vol] 37 U/L 28 - 100 U/L [place] Basic Metabolic Panel w/ Ref alvin to MGon 08-25-2019 Anion gap [Moles/Vol] 11 mmol/L 9 - 17 mmol/L [place] Bun/Cre Ratio NOT REPORTED [place], [place] Calcium [Mass/Vol] 8.6 mg/dL 8.6 - 10. 4 mg/dL [place] Chloride [Moles/Vol] 97 mmol/L Low 98 - 10 7 mmol/L [place] CO2 [Moles/Vol] 26 mmol/L 20 - 31 mmol/L [place] Creatinine [Mass/Vol] 0.81 mg/dL 0.5 - 0.9 mg/dL [place] GFR >60 >60 mL/min [place] GFR Non- >60 >60 mL/min [place] GFR/1.73 sq M predicted among non-blacks MDRD (S/P/Bld) [Vol rate/Area] NOT REPORTED [place] GFR/1.73 sq M predicted among non-blacks MDRD (S/P/Bld) [Vol rate/Area] [place], [place] Comment on above: Average GFR for 60-6 9 years old: 85 mL/min/1.73sq m Chronic Kidney Disease: <60 mL/min/1.73sq m Kidney failure: <15 mL/min/1.73sq m eGFR calculated using average adult body mass. Additional eGFR calculator available at: http://www.[employer]Tails.com/multiple_crcl_2012.htm Glucose [Mass/Vol] 121 mg/dL High 70 - 99 mg/dL [place] Potassium [Moles/Vol] 4.2 mmol/L 3.7 - 5.3 mmol/L [place] Sodium [Moles/Vol] 134 mmol/L Low 135 - 144 mmol/L [place] Urea nitrogen [Mass/Vol] 17 mg/dL 8 - 23 mg/dL [place] Brain Natriuretic Peptideon 08-25-2019 Natriuretic peptide B (Bld) [Mass/Vol] Pro-BNP Reference Range: [place], [place] Comment on above: Rule Out: <300 [place] Zone: Age <50 300-450 Age 50-75 300-900 Age >75 300-1800 Usually represents mild to moderate HF but other cardiopulmonary causes cannot be ruled out. Rule In: Age <50 >450 Age 50-75 >900 Age >75 >1800 Natriuretic peptide B (Bld) [Mass/Vol] 42 pg/mL <300 [place], [place] Comment on above: Pro-BNP results ridge ot be compared to BNP results. CBC Auto Differentialon Basophils (Bld) [#/Vol] 0.10 10*3/uL [place] Basophils/100 WBC (Bld) 1 % 0 - 2 % [place] Differential Type NOT REPORTED [place] Eosinophils (Bld) [#/Vol] 0.20 10*3/uL [place] Eosinophils/100 WBC (Bld) 2 % 0 - 4 % [place] Erythrocyte distribution width (RBC) [Ratio] 13.8 % 11.5 - 14.9 % [place] Hematocrit (Bld) [Volume fraction] 47.4 % High 36 - 46 % [place] Hemoglobin (Bld) [Mass/Vol] 15.7 g/dL 12 - 16 g/dL [place] Interpretation and review of laboratory results Abnormal [place] Lymphocytes (Bld) [#/Vol] 0.80 10*3/uL Low [place] Lymphocytes/100 WBC (Bld) 7 % Low 24 - 44 % [place] MCH (RBC) [Entitic mass] 30.6 pg 26 - 34 pg [place] MCHC (RBC) [Mass/Vol] 33.2 g/dL 31 - 3 7 g/dL [place] MCV (RBC) [Entitic vol] 92.0 fL 80 - 100 fL [place] Monocytes (Bld) [#/Vol] 0.50 10*3/uL [place] Monocytes/100 WBC (Bld) 4 % 1 - 7 % [place] Platelet mean volume (Bld) [Entitic vol] 7.2 fL 6 - 12 fL [place], [place] Platelets (Bld) [#/Vol] NOT REPORTED [place] Platelets (Bld) [#/Vol] 363 10*3/uL [place] RBC (Bld) [#/Vol] 5.15 10*6/uL 4 - 5.2 m/uL [place] RBC morphology finding Nom (Bld) NOT REPORTED [place] Segmented neutrophils/100 WBC (Bld) 86 % High 36 - 66 % [place] Segs Absolute 10.40 High [place] WBC (Bld) [#/Vol] 12.0 10*3/uL High [place] WBC (Bld) [#/Vol] NOT REPORTED per 100 WBC [place] WBC Morphology NOT REPORTED [place] Hepatic Function Panelon Albumin [Mass/Vol] 4 g/dL 3.5 - 5.2 g/dL [place] Albumin/Globulin [Mass ratio] NOT REPORTED [place] ALP [Catalytic activity/Vol] 67 U/L 35 - 104 U/L [place] ALT [Catalytic activity/Vol] 19 U/L 5 - 33 U/L [place] AST [Catalytic activity/Vol] 12 U/L <32 [place] Bilirubin Ql (U) 0.53 mg/dL 0.3 - 1.2 mg/dL [place] Bilirubin, Indirect 0.39 mg/dL 0 - 1 mg/dL [place] Bilirubin.direct [Mass/Vol] 0.14 mg/dL <0.31 [place] Globulin (S) [Mass/Vol] NOT REPORTED 1.5 - 3.8 g/dL [place] Protein [Mass/Vol] 7.4 g/dL 6.4 - 8.3 g/dL [place] Lipaseon 08-25-2019 Lipase [Catalytic activity/Vol] 12 U/L Low 13 - 60 U/L [place] Otheron 08-25-2019 Interpretation and review of laboratory results Abnormal [place] Immature granulocytes (Bld) [#/Vol] NOT REPORTED 0 % [place] Protime-INRon 08-25-2019 INR Coag (PPP) [Relative time] 1.1 {INR} [place], [place] Comment on above: Non-therapeutic Range: INR = 0.9-1.2 Therapeutic Range: Moderate Anticoagulant Intensity: INR = 2.0-3.0 High Anticoagulant Intensity: INR = 2.5-3.5 PT Coag (PPP) [Time] 13.6 s [place], [place] Rapid influenza A/B antigens on 08-25-2019 Direct Exam Negative [place], [place] Direct Exam Positive Abnormal [place] Interpretation and review of laboratory results Abnormal [place] Special Requests NOT REPORTED [place] Specimen Description .NASOPHARYNGEAL SWAB [place] Troponinon 08-25-2019 Troponin I.cardiac [Mass/Vol] NOT REPORTED [place] Troponin T.cardiac [Mass/Vol] NOT REPORTED <0.03 ng/mL [place] Troponin, High Sensitivity 9 ng/L 0 - 14 ng/L [place], [place] Comment on above: High Sensitivity Troponin [...] diaphragm. No evidence of acute osseous abnormality. [place], [place] Jose Antonio, Mhpn Incoming Radiant Results From [employer] - 08/25/2019 4:43 PM EST EXAMINATION: ONE [...] vascular congestion. Interstitial edema appears slightly improved. [place] Unchanged mild cardiomegaly and vascular congestion. Interstitial edema appears slightly improved. [place] Basic Metabolic Profon 08-10 Anion gap [Moles/Vol] 11 mmol/L 9 - 17 mmol/L [place] Bun/Cre Ratio NOT REPORTED [place] Calcium [Mass/Vol] 7.7 mg/dL Low 8.6 - 10. 4 mg/dL [place] Chloride [Moles/Vol] 101 mmol/L 98 - 10 7 mmol/L [place] CO2 [Moles/Vol] 28 mmol/L 20 - 31 mmol/L [place] Creatinine [Mass/Vol] 0.75 mg/dL 0.5 - 0.9 mg/dL [place] GFR >60 >60 mL/min [place], [place] GFR Non- >60 >60 mL/min [place] GFR/1.73 sq M predicted among non-blacks MDRD (S/P/Bld) [Vol rate/Area] [place], [place] Comment on above: Average GFR for 60-6 9 years old: 85 mL/min/1.73sq m Chronic Kidney Disease: <60 mL/min/1.73sq m Kidney failure: <15 mL/min/1.73sq m eGFR calculated using average adult body mass. Additional eGFR calculator available at: http://www.[employer]/multiple_crcl_2012.htm GFR/1.73 sq M predicted among non-blacks MDRD (S/P/Bld) [Vol rate/Area] NOT REPORTED [place], [place] Glucose [Mass/Vol] 162 mg/dL High 70 - 99 mg/dL [place] Interpretation and review of laboratory results Abnormal [place] Potassium [Moles/Vol] 4.1 mmol/L 3.7 - 5.3 mmol/L [place] Sodium [Moles/Vol] 140 mmol/L 135 - 144 mmol/L [place] Urea nitrogen [Mass/Vol] 29 mg/dL High 8 - 23 mg/dL [place], [place] CBCon 08-10-2019 Erythrocyte distribution width (RBC) [Ratio] 13.4 % 11.5 - 14.9 % [place] Hematocrit (Bld) [Volume fraction] 41.6 % 36 - 46 % [place] Hemoglobin (Bld) [Mass/Vol] 13.9 g/dL 12 - 16 g/dL [place] Interpretation and review of laboratory results Abnormal [place] MCH (RBC) [Entitic mass] 31.1 pg 26 - 34 pg [place] MCHC (RBC) [Mass/Vol] 33.4 g/dL 31 - 3 7 g/dL [place] MCV (RBC) [Entitic vol] 93.2 fL 80 - 100 fL [place] Platelet mean volume (Bld) [Entitic vol] 7.6 fL 6 - 12 fL [place], [place] Platelets (Bld) [#/Vol] 326 10*3/uL [place] RBC (Bld) [#/Vol] 4.46 10*6/uL 4 - 5.2 m/uL [place] WBC (Bld) [#/Vol] NOT REPORTED per 100 WBC [place] WBC (Bld) [#/Vol] 13.2 10*3/uL [place] XR CHEST STANDARD (2 VW)on 0 [...] the costophrenic angles on the lateral view. [place], [place] Jose Antonio, Mhpn Incoming Radiant Results From [employer] - 08/10/2019 9:50 AM EST EXAMINATION: TWO [...] radiographic follow-up is recommended to ensure clearance. [place] Cardiomegaly with mi ld vascular congestion noted concerning for mild interstitial pulmonary edema. This is new from the previous exam and continued radiographic follow-up is recommended to ensure clearance. [place] Basic Metabolic Profon 08-09 Anion gap [Moles/Vol] 11 mmol/L 9 - 17 mmol/L [place], [place] Bun/Cre Ratio NOT REPORTED [place], [place] Calcium [Mass/Vol] 7.6 mg/dL Low 8.6 - 10. 4 mg/dL [place], [place] Chloride [Moles/Vol] 100 mmol/L 98 - 10 7 mmol/L [place] CO2 [Moles/Vol] 28 mmol/L 20 - 31 mmol/L [place] Creatinine [Mass/Vol] 0.86 mg/dL 0.5 - 0.9 mg/dL [place] GFR >60 >60 mL/min [place], [place] GFR Non- >60 >60 mL/min [place] GFR/1.73 sq M predicted among non-blacks MDRD (S/P/Bld) [Vol rate/Area] NOT REPORTED [place] GFR/1.73 sq M predicted among non-blacks MDRD (S/P/Bld) [Vol rate/Area] [place], [place] Comment on above: Average GFR for 60-6 9 years old: 85 mL/min/1.73sq m Chronic Kidney Disease: <60 mL/min/1.73sq m Kidney failure: <15 mL/min/1.73sq m eGFR calculated using average adult body mass. Additional eGFR calculator available at: http://www.[employer].Tails.com/multiple_crcl_2012.htm Glucose [Mass/Vol] 140 mg/dL High 70 - 99 mg/dL [place] Interpretation and review of laboratory results Abnormal [place] Potassium [Moles/Vol] 4.5 mmol/L 3.7 - 5.3 mmol/L [place] Sodium [Moles/Vol] 139 mmol/L 135 - 144 mmol/L [place], [place] Urea nitrogen [Mass/Vol] 29 mg/dL High 8 - 23 mg/dL [place] CBCon 08-09-2019 Erythrocyte distribution width (RBC) [Ratio] 13.6 % 11.5 - 14.9 % [place] Hematocrit (Bld) [Volume fraction] 40.1 % 36 - 46 % [place] Hemoglobin (Bld) [Mass/Vol] 13.5 g/dL 12 - 16 g/dL [place] Interpretation and review of laboratory results Abnormal [place] MCH (RBC) [Entitic mass] 31.2 pg 26 - 34 pg [place] MCHC (RBC) [Mass/Vol] 33.7 g/dL 31 - 3 7 g/dL [place] MCV (RBC) [Entitic vol] 92.6 fL 80 - 100 fL [place], [place] Platelet mean volume (Bld) [Entitic vol] 7.3 fL 6 - 12 fL [place], [place] Platelets (Bld) [#/Vol] 334 10*3/uL [place] RBC (Bld) [#/Vol] 4.34 10*6/uL 4 - 5.2 m/uL [place] WBC (Bld) [#/Vol] 15.9 10*3/uL [place] WBC (Bld) [#/Vol] NOT REPORTED per 100 WBC [place], [place] Fungal stainon 08-09-2019 Direct Exam NO FUNGAL ELEMENTS SEEN [place] Special Requests NOT REPORTED [place] Specimen Description .BRONCHIAL WASHINGS [place], [place] Otheron 08-09-2019 Direct Exam Positive Abnormal [place], [place] Respiratory Cultureon 2019 Culture NORMAL RESPIRATORY CHERYL HEAVY GROWTH [place] Direct Exam FEW NEUTROPHILS Abnormal [place] Interpretation and review of laboratory results Abnormal [place] Special Requests NOT REPORTED [place] Specimen Description .BRONCHIAL WASHINGS [place] Surgical Pathologyon 020 Surgical Pathology Report [id number] [place], [place] [address] SURGICAL PATHOLOGY REPORT Patient Name: CAMERON US MR#: [id number] Specimen #[id number] Final Diagnosis Parts A & B. Lungs, [...] fluid. Approximately 3 ml are sent to [place] for ThinPrep. Two smears and two cytospin preparations are made. Specimen B : The entire specimen is centrifuged for cell block. The volume of sediment is 0.5 cc. It is submitted for cell block preparation. Microscopic Description Five cytology and two H&E cell block slides reviewed. Microscopic examination performed and supports the diagnostic impression. [place] Basic Metabolic Profon 08-08 Anion gap [Moles/Vol] 8 mmol/L Low 9 - 17 mmol/L [place] Bun/Cre Ratio NOT REPORTED [place], [place] Calcium [Mass/Vol] 8.0 mg/dL Low 8.6 - 10. 4 mg/dL [place] Chloride [Moles/Vol] 106 mmol/L 98 - 10 7 mmol/L [place] CO2 [Moles/Vol] 26 mmol/L 20 - 31 mmol/L [place] Creatinine [Mass/Vol] 0.75 mg/dL 0.5 - 0.9 mg/dL [place] GFR >60 >60 mL/min [place], [place] GFR Non- >60 >60 mL/min [place] GFR/1.73 sq M predicted among non-blacks MDRD (S/P/Bld) [Vol rate/Area] NOT REPORTED [place] GFR/1.73 sq M predicted among non-blacks MDRD (S/P/Bld) [Vol rate/Area] [place], [place] Comment on above: Average GFR for 60-6 9 years old: 85 mL/min/1.73sq m Chronic Kidney Disease: <60 mL/min/1.73sq m Kidney failure: <15 mL/min/1.73sq m eGFR calculated using average adult body mass. Additional eGFR calculator available at: http://www.[employer]/multiple_crcl_2012.htm Glucose [Mass/Vol] 154 mg/dL High 70 - 99 mg/dL [place] Interpretation and review of laboratory results Abnormal [place] Potassium [Moles/Vol] 5.1 mmol/L 3.7 - 5.3 mmol/L [place] Sodium [Moles/Vol] 140 mmol/L 135 - 144 mmol/L [place] Urea nitrogen [Mass/Vol] 32 mg/dL High 8 - 23 mg/dL [place] Body fluid cell counton 07-23 Appearance, Fluid TURBID [place] Color, Fluid PALE YELLOW [place], [place] RBC, Fluid 294 /mm3 [place] Specimen type Nom (Spec) .BRONCHIAL WASHINGS [place], [place] WBC, Fluid 113 /mm3 [place] CBCon 08-08-2019 Erythrocyte distribution width (RBC) [Ratio] 13.5 % 11.5 - 14.9 % [place] Hematocrit (Bld) [Volume fraction] 42.1 % 36 - 46 % [place] Hemoglobin (Bld) [Mass/Vol] 14.0 g/dL 12 - 16 g/dL [place] Interpretation and review of laboratory results Abnormal [place] MCH (RBC) [Entitic mass] 30.7 pg 26 - 34 pg [place] MCHC (RBC) [Mass/Vol] 33.2 g/dL 31 - 3 7 g/dL [place] MCV (RBC) [Entitic vol] 92.4 fL 80 - 100 fL [place] Platelet mean volume (Bld) [Entitic vol] 7.2 fL 6 - 12 fL [place], [place] Platelets (Bld) [#/Vol] 355 10*3/uL [place] RBC (Bld) [#/Vol] 4.55 10*6/uL 4 - 5.2 m/uL [place] WBC (Bld) [#/Vol] 18.5 10*3/uL [place] WBC (Bld) [#/Vol] NOT REPORTED per 100 WBC [place], [place] Differential, Body Fluidon 0 08-08-2019 Basos, Fluid 0 % [place], [place] Eos, Fluid 7 % High 0 [place] Fluid Diff Comment TO BE REVIEWED BY PATHOLOGIST [place], [place] Comment on above: Reviewed by patholog ist: Justin Chambers D.O. SLIDE REVIEWED. MACROPHAGES, NEUTROPHILS WITH RARE LYMPHOCYTES AND EOSINOPHIILS NOTED. Interpretation and review of laboratory results Abnormal [place] Lymphocytes, Body Fluid 7 % High 0 [place] Monocyte Count, Fluid 40 % High 0 [place], [place] Neutrophil Count, Fluid 46 % High 0 [place] Other Cells, Fluid 0 % [place] Basic Metabolic Profon 08-07 Anion gap [Moles/Vol] 11 mmol/L 9 - 17 mmol/L [place] Bun/Cre Ratio NOT REPORTED [place], [place] Calcium [Mass/Vol] 8.1 mg/dL Low 8.6 - 10. 4 mg/dL [place] Chloride [Moles/Vol] 105 mmol/L 98 - 10 7 mmol/L [place] CO2 [Moles/Vol] 24 mmol/L 20 - 31 mmol/L [place] Creatinine [Mass/Vol] 0.93 mg/dL High 0.5 - 0.9 mg/dL [place] GFR >60 >60 mL/min [place], [place] GFR Non- >60 >60 mL/min [place] GFR/1.73 sq M predicted among non-blacks MDRD (S/P/Bld) [Vol rate/Area] NOT REPORTED [place] GFR/1.73 sq M predicted among non-blacks MDRD (S/P/Bld) [Vol rate/Area] [place] Comment on above: Average GFR for 60-6 9 years old: 85 mL/min/1.73sq m Chronic Kidney Disease: <60 mL/min/1.73sq m Kidney failure: <15 mL/min/1.73sq m eGFR calculated using average adult body mass. Additional eGFR calculator available at: http://www.[employer]/multiple_crcl_2012.htm Glucose [Mass/Vol] 172 mg/dL High 70 - 99 mg/dL [place] Interpretation and review of laboratory results Abnormal [place] Potassium [Moles/Vol] 5.1 mmol/L 3.7 - 5.3 mmol/L [place] Sodium [Moles/Vol] 140 mmol/L 135 - 144 mmol/L [place] Urea nitrogen [Mass/Vol] 26 mg/dL High 8 - 23 mg/dL [place] CBCon 08-07-2019 Erythrocyte distribution width (RBC) [Ratio] 13.8 % 11.5 - 14.9 % [place] Hematocrit (Bld) [Volume fraction] 42.8 % 36 - 46 % [place] Hemoglobin (Bld) [Mass/Vol] 14.1 g/dL 12 - 16 g/dL [place] Interpretation and review of laboratory results Abnormal [place] MCH (RBC) [Entitic mass] 30.8 pg 26 - 34 pg [place] KY MCHC (RBC) [Mass/Vol] 33.0 g/dL 31 - 3 7 g/dL [place] MCV (RBC) [Entitic vol] 93.1 fL 80 - 100 fL [place] Platelet mean volume (Bld) [Entitic vol] 7.5 fL 6 - 12 fL [place], [place] Platelets (Bld) [#/Vol] 367 10*3/uL [place] RBC (Bld) [#/Vol] 4.59 10*6/uL 4 - 5.2 m/uL [place] WBC (Bld) [#/Vol] 20.0 10*3/uL High [place] WBC (Bld) [#/Vol] NOT REPORTED per 100 WBC [place], [place] Basic Metabolic Profon 08-06 Anion gap [Moles/Vol] 10 mmol/L 9 - 17 mmol/L [place] Bun/Cre Ratio NOT REPORTED [place] Calcium [Mass/Vol] 8.2 mg/dL Low 8.6 - 10. 4 mg/dL [place] Chloride [Moles/Vol] 102 mmol/L 98 - 10 7 mmol/L [place] CO2 [Moles/Vol] 25 mmol/L 20 - 31 mmol/L [place] Creatinine [Mass/Vol] 0.75 mg/dL 0.5 - 0.9 mg/dL [place] GFR >60 >60 mL/min [place], [place] GFR Non- >60 >60 mL/min [place] GFR/1.73 sq M predicted among non-blacks MDRD (S/P/Bld) [Vol rate/Area] [place] Comment on above: Average GFR for 60-6 9 years old: 85 mL/min/1.73sq m Chronic Kidney Disease: <60 mL/min/1.73sq m Kidney failure: <15 mL/min/1.73sq m eGFR calculated using average adult body mass. Additional eGFR calculator available at: http://www.[employer]Tails.com/multiple_crcl_2012.htm GFR/1.73 sq M predicted among non-blacks MDRD (S/P/Bld) [Vol rate/Area] NOT REPORTED [place] Glucose [Mass/Vol] 166 mg/dL High 70 - 99 mg/dL [place] Interpretation and review of laboratory results Abnormal [place] Potassium [Moles/Vol] 4.1 mmol/L 3.7 - 5.3 mmol/L [place] Sodium [Moles/Vol] 137 mmol/L 135 - 144 mmol/L [place] Urea nitrogen [Mass/Vol] 21 mg/dL 8 - 23 mg/dL [place] CBCon 08-06-2019 Erythrocyte distribution width (RBC) [Ratio] 13.5 % 11.5 - 14.9 % [place] Hematocrit (Bld) [Volume fraction] 43.2 % 36 - 46 % [place] Hemoglobin (Bld) [Mass/Vol] 14.5 g/dL 12 - 16 g/dL [place] MCH (RBC) [Entitic mass] 31.1 pg 26 - 34 pg [place] MCHC (RBC) [Mass/Vol] 33.5 g/dL 31 - 3 7 g/dL [place] MCV (RBC) [Entitic vol] 92.7 fL 80 - 100 fL [place] Platelet mean volume (Bld) [Entitic vol] 7.2 fL 6 - 12 fL [place], [place] Platelets (Bld) [#/Vol] 366 10*3/uL [place] RBC (Bld) [#/Vol] 4.66 10*6/uL 4 - 5.2 m/uL [place] WBC (Bld) [#/Vol] NOT REPORTED per 100 WBC [place], [place] WBC (Bld) [#/Vol] 7.9 10*3/uL [place] Basic Metabolic Panelon 07-23 Anion gap [Moles/Vol] 14 mmol/L 9 - 17 mmol/L [place] Bun/Cre Ratio NOT REPORTED [place], [place] Calcium [Mass/Vol] 8.6 mg/dL 8.6 - 10. 4 mg/dL [place] Chloride [Moles/Vol] 102 mmol/L 98 - 10 7 mmol/L [place] CO2 [Moles/Vol] 25 mmol/L 20 - 31 mmol/L [place] Creatinine [Mass/Vol] 0.85 mg/dL 0.5 - 0.9 mg/dL [place] GFR >60 >60 mL/min [place], [place] GFR Non- >60 >60 mL/min [place] GFR/1.73 sq M predicted among non-blacks MDRD (S/P/Bld) [Vol rate/Area] [place] Comment on above: Average GFR for 60-6 9 years old: 85 mL/min/1.73sq m Chronic Kidney Disease: <60 mL/min/1.73sq m Kidney failure: <15 mL/min/1.73sq m eGFR calculated using average adult body mass. Additional eGFR calculator available at: http://www.[employer]/multiple_crcl_2012.htm GFR/1.73 sq M predicted among non-blacks MDRD (S/P/Bld) [Vol rate/Area] NOT REPORTED [place] Glucose [Mass/Vol] 97 mg/dL 70 - 99 mg/dL [place] Potassium [Moles/Vol] 4.5 mmol/L 3.7 - 5.3 mmol/L [place] Sodium [Moles/Vol] 141 mmol/L 135 - 144 mmol/L [place] Urea nitrogen [Mass/Vol] 19 mg/dL 8 - 23 mg/dL [place] CBC Auto Differentialon 07-23 Basophils (Bld) [#/Vol] 0.10 10*3/uL [place] Basophils/100 WBC (Bld) 1 % 0 - 2 % [place] Differential Type NOT REPORTED [place] Eosinophils (Bld) [#/Vol] 0.80 10*3/uL High [place], [place] Eosinophils/100 WBC (Bld) 9 % High 0 - 4 % [place] Erythrocyte distribution width (RBC) [Ratio] 13.2 % 11.5 - 14.9 % [place] Hematocrit (Bld) [Volume fraction] 46.8 % High 36 - 46 % [place] Hemoglobin (Bld) [Mass/Vol] 15.6 g/dL 12 - 16 g/dL [place] Interpretation and review of laboratory results Abnormal [place] Lymphocytes (Bld) [#/Vol] 2.70 10*3/uL [place] Lymphocytes/100 WBC (Bld) 30 % 24 - 44 % [place] MCH (RBC) [Entitic mass] 31.1 pg 26 - 34 pg [place] MCHC (RBC) [Mass/Vol] 33.4 g/dL 31 - 3 7 g/dL [place] MCV (RBC) [Entitic vol] 93.1 fL 80 - 100 fL [place] Monocytes (Bld) [#/Vol] 0.70 10*3/uL [place] Monocytes/100 WBC (Bld) 8 % High 1 - 7 % [place] Platelet mean volume (Bld) [Entitic vol] 7.0 fL 6 - 12 fL [place] Platelets (Bld) [#/Vol] NOT REPORTED [place], [place] Platelets (Bld) [#/Vol] 396 10*3/uL [place] RBC (Bld) [#/Vol] 5.02 10*6/uL 4 - 5.2 m/uL [place] RBC morphology finding Nom (Bld) NOT REPORTED [place] Segmented neutrophils/100 WBC (Bld) 52 % 36 - 66 % [place] Segs Absolute 4.80 [place], [place] WBC (Bld) [#/Vol] NOT REPORTED per 100 WBC [place] WBC (Bld) [#/Vol] 9.2 10*3/uL [place] WBC Morphology NOT REPORTED [place] D-Dimer, Quantitativeon 07-23 D-Dimer, Quant <0.27 [place], [place] Comment on above: When combined with [...] 08-05-2019 Immature granulocytes (Bld) [#/Vol] NOT REPORTED [place] Procalcitoninon 08-05-2019 Procalcitonin 0.06 ng/mL <0.09 [place] Comment on above: Suspected Sepsis: 0.09-0.49 [...] entered into the Change in Procalcitonin Calculator (www.pbyvog-wtz-hcfkssjkis.com) to determine the patient's Mortality Risk Prognosis XR CHEST PORTABLEon 08-05-19 20 Jose Antonio, pn Incoming Radiant Results From [employer] - 08/05/2019 3:07 PM EST EXAMINATION: ONE [...] identified. IMPRESSION: No acute airspace disease identified. [place] EXAMINATION: ONE XRA Y VIEW OF THE CHEST 08/05/2019 2:02 pm COMPARISON: None. HISTORY: ORDERING SYSTEM PROVIDED HISTORY: Chest Pain TECHNOLOGIST PROVIDED HISTORY: Chest Pain Reason for Exam: CHEST PAIN Acuity: Unknown Type of Exam: Unknown FINDINGS: Mild cardiac silhouette enlargement. Generalized interstitial prominence without consolidation, pneumothorax or evidence for edema. No effusion. No acute osseous abnormality identified. [place] No acute airspace disease identified. [place] Glucose, Fastingon 9 Glucose [Mass/Vol] 93 mg/dL Normal 70-99 [facility] Comment on above: Performed By: #### G LUF, LIPRF, TSH #### [employer] [address] [place] [address] [id number] Graduate Teacher Education: Beau Troncoso MD Glucose [Mass/Vol] 93 mg/dL 70 - 99 mg/dL [place] Lipid Prof, Fastingon 2018 Cholesterol [Mass/Vol] 275 mg/dL High <200 [facility] Comment on above: Result Comment: Cholesterol Guidelines: <200 Desirable 200-240 Borderline >240 Undesirable Performed By: #### G LUF, LIPRF, TSH #### [employer] [address] [place] [address] [id number] Graduate Teacher Education: Beau Troncoso MD Cholesterol in HDL [Mass/Vol] 48 mg/dL Normal >40 [facility] Comment on above: Result Comment: HDL Guidelines: <40 Undesirable 40-59 Borderline >59 Desirable Performed By: #### G LUF, LIPRF, TSH #### [employer] [address] [place] [address] [id number] Graduate Teacher Education: Beau Troncoso MD Cholesterol in LDL [Mass/Vol] 196 mg/dL High 0-130 [facility] Comment on above: Result Comment: LDL Guidelines: <100 Desirable 100-129 Near to/above Desirable 130-159 Borderline >159 Undesirable Direct (measured) LDL and calculated LDL are not interchangeable tests. Performed By: #### G JOSE, LIPRF, TSH #### [employer] [address] [place] [address] Graduate Teacher Education: Beau Troncoso MD Cholesterol.total/Chol esterol in HDL [Mass ratio] 5.7 {ratio} High <5 [facility] Comment on above: Performed By: #### G LUF, LIPRF, TSH #### [facility] [address] [place] [address] Graduate Teacher Education: Beau Troncoso MD Triglyceride,Fasting 153 mg/dL High <150 [facility] Comment on above: Result Comment: Triglyceride Guidelines: <150 Desirable 150-199 Borderline 200-499 High >499 Very high Based on AHA Guidelines for fasting triglyceride, March 2012. Performed By: #### G LUF, LIPRF, TSH #### [facility] [place] [address] Graduate Teacher Education: Beau Troncoso MD Cholesterol in VLDL [Mass/Vol] NOT REPORTED Normal 07-21 [facility] Comment on above: Performed By: #### G JOSE, LIPRF, TSH #### [facility] [employer] [address] [place], [place] [id number] Graduate Teacher Education: Beau Troncoso MD Lipid, Fastingon 05-11-2019 Cholesterol [Mass/Vol] 275 mg/dL High <[address] [facility] [place] Comment on above: Cholesterol Guidelines: <200 Desirable 200-240 Borderline >240 Undesirable Cholesterol in HDL [Mass/Vol] 48 mg/dL >40 [place] Comment on above: HDL Guidelines: <40 Undesirable 40-59 Borderline >59 Desirable Cholesterol in LDL [Mass/Vol] 196 mg/dL High 0 - 130 mg/dL [place] Comment on above: LDL Guidelines: <100 Desirable 100-129 Near to/above Desirable 130-159 Borderline >159 Undesirable Direct (measured) LDL and calculated LDL are not interchangeable tests. Cholesterol in VLDL [Mass/Vol] NOT REPORTED High 1 - 30 mg/dL [place] Cholesterol.total/Chol esterol in HDL [Mass ratio] 5.7 {ratio} High <5 [place] Interpretation and review of laboratory results Abnormal [place] Triglyceride, Fasting 153 mg/dL High <150 [place] Comment on above: Triglyceride Guidelines: <150 Desirable 150-199 Borderline 200-499 High >499 Very high Based on AHA Guidelines for fasting triglyceride, March 2012. TSHon 05-11-2019 Interpretation and review of laboratory results Abnormal [place] TSH Qn 25.72 m[IU]/L High [place] Thyroid Stim. Horm.on 2018 TSH Qn 25.72 m[IU]/L High 0.30-5.00 [facility] Comment on above: Performed By: #### G JOSE, CHUCK, TSH #### [facility] [employer] [address] [place], [place] [phone] Graduate Teacher Education: Beau Troncoso MD Vital Signs Date Time Vital Sign Value Performing Clinician Facility 12-30-2024 11:15-040 Body height 172.72 cm [employer] Work Phone: [facility] 12-30-2024 11:15-0400 Body mass index (BMI) [Ratio] 39.4 kg/m2 [employer] Work Phone: [facility] 12-30-2024 11:15-0400 Body weight 117.48 kg [employer] Work Phone: [facility] 12-30-2024 11:15-040 Diastolic blood pressure 84 mm[Hg] [employer] Work Phone: [facility] 12-30-2024 11:15-0400 Heart rate 93 /min [employer] Work Phone: [facility] 12-30-2024 11:15-0400 SaO2% (BldA) [Mass fraction] 94 % Louie Braunlong DO Work Phone: [facility] 12-30-2024 11:15-0400 Systolic blood pressure 126 mm[Hg] Louie Braunlong DO Work Phone: [facility] 12-28-2024 08:40-0400 Body height 172.7 cm Kelley Garcia MD Work Phone: [facility] 12-28-2024 08:40-0400 Body mass index (BMI) [Ratio] 39.68 kg/m2 Kelley Garcia MD Work Phone: [facility] 12-28-2024 08:40-0400 Body weight 118.39 kg Kelley Garcia MD Work Phone: [facility] 12-28-2024 08:40-0400 Diastolic blood pressure 90 mm[Hg] Kelley Garcia MD Work Phone: [facility] 12-28-2024 08:40-0400 Heart rate 93 /min Kelley Garcia MD Work Phone: [facility] [employer] [facility] 12-28-2024 08:40-0400 SaO2% (BldA) [Mass fraction] 88 % Kelley Garcia MD Work Phone: [facility] [employer] [facility] 12-28-2024 08:40-0400 Systolic blood pressure 132 mm[Hg] Kelley Garcia MD Work Phone: [facility] 12-28-2024 08:12-0400 Body height 172.7 cm [facility] 4 [facility] 12-28-2024 08:12-0400 Body mass index (BMI) [Ratio] 39.72 kg/m2 [facility] 4 [facility] 12-28-2024 08:12-0400 Body weight 118.48 kg [facility] 4 [facility] 12-12-2024 14:12-0400 Body height 172.72 cm Louie Braunlong DO Work Phone: [facility] 12-12-2024 14:12-0400 Body mass index (BMI) [Ratio] 39.3 kg/m2 Louie Furlong DO Work Phone: [facility] 12-12-2024 14:12-0400 Body weight 117.4 kg [facility]ie Furlong DO Work Phone: [facility] 10-18-2024 16:29-0400 Body height 172.7 cm Louie Furlong DO Work Phone: [facility] [employer] [facility] 10-18-2024 16:29-0400 Body mass index (BMI) [Ratio] 38.63 kg/m2 Louie Furlong DO Work Phone: [facility] [employer] 10-18-2024 16:29-0400 Body temperature 98.01 [degF] Louie Furlong DO Work Phone: [facility] [employer] 10-18-2024 16:29-0400 Body weight 115.21 kg Louie Furlong DO Work Phone: [facility] 10-18-2024 16:29-0400 Diastolic blood pressure 64 mm[Hg] Louie Furlong DO Work Phone: [facility] [employer] 10-18-2024 16:29-0400 Heart rate 65 /min Louie Furlong DO Work Phone: [facility] [employer] 10-18-2024 16:29-0400 Respiratory rate 24 /min Louie Furlong DO Work Phone: [facility] [employer] 10-18-2024 16:29-0400 SaO2% (BldA) [Mass fraction] 98 % Louie Furlong DO Work Phone: [facility] [employer] 10-18-2024 16:29-0400 Systolic blood pressure 128 mm[Hg] Louie Furlong DO Work Phone: [facility] [employer] [facility] [place] 09-01-2024 11:16-0400 Body height 172.7 cm Louie [employer] DO Work Phone: [employer] 09-01-2024 11:16-0400 Body mass index (BMI) [Ratio] 38.38 kg/m2 Louie BraunCrawford [employer] DO Work Phone: [facility] 09-01-2024 11:16-0400 Body temperature 97.5 [degF] Louie [employer]ford [employer] DO Work Phone: [facility] 09-01-2024 11:16-0400 Body weight 114.49 kg Louie [employer]ford [employer] DO Work Phone: [facility] 09-01-2024 11:16-0400 Diastolic blood pressure 68 mm[Hg] Louie [employer]ford [employer] DO Work Phone: [facility] 09-01-2024 11:16-0400 Heart rate 85 /min Louie KadeCrawford Scientific DO Work Phone: [facility] 09-01-2024 11:16-0400 Respiratory rate 20 /min [employer] DO Work Phone: [facility] 09-01-2024 11:16-0400 SaO2% (BldA) [Mass fraction] 90 % [employer]ieH[employer] DO Work Phone: [facility] 09-01-2024 11:16-0400 Systolic blood pressure 102 mm[Hg] Louie [employer]Crawford [employer] DO Work Phone: [facility] 11-22-2020 12:40-0400 Respiratory rate 29 /min Heena John MD [employer] Work Phone: 11-22-2020 12:40-0400 SaO2% (BldA) [Mass fraction] 100 % Heena John MD [employer] Phone: 11-22-2020 12:30-0400 Diastolic blood pressure 58 mm[Hg] Heena John MD [employer] Work Phone: 11-22-2020 12:30-0400 Heart rate 85 /min Heena John MD [employer] Phone: 11-22-2020 12:30-0400 Systolic blood pressure 108 mm[Hg] Heena John MD [employer] Phone: 11-22-2020 12:09-0400 Body height 175.3 cm Heena John MD [employer] Phone: 11-22-2020 12:09-0400 Body mass index (BMI) [Ratio] 33.97 kg/m2 Heena John MD [employer] Phone: 11-22-2020 12:09-0400 Body temperature 97.3 [degF] Heena John MD [employer] Phone: 11-22-2020 12:09-0400 Body weight 104.33 kg Heena John MD [employer] Phone: 11-02-2019 13:15-0400 BP Diastolic 61 mm[Hg] Warren [facility] [place] 11-02-2019 13:15-0400 BP Systolic 118 mm[Hg] Warren [employer] [facility] , [place] 11-02-2019 13:15-0400 Pulse (Heart Rate) 87 /min Warren [email or web address], [place] 11-02-2019 13:15-0400 Pulse Oximetry 97 % Warren [employer] [facility] , [place] 11-02-2019 13:15-0400 Respiratory Rate 17 /min Warren [employer] [facility], [place] 11-02-2019 10:12-0400 BMI (Body Mass Index) 29.53 kg/m2 Warren [employer] [facility], [place] 11-02-2019 10:12-0400 Body Temperature 98.91 [degF] [facility] [place] 11-02-2019 10:12-0400 Body weight 90.72 kg Warren [employer] [facility] , [place] 10-08-2019 11:51-0400 Pulse Oximetry 98 % [facility] [place] 10-08-2019 11:51-0400 Respiratory Rate 12 /[facility] [place] 10-08-2019 08:42-0400 Body Temperature 98.1 [degF] [facility] 10-08-2019 08:42-0400 BP Diastolic 70 mm[Hg] [facility] , [place] 10-08-2019 08:42-0400 BP Systolic 137 mm[Hg] [facility] , [place] 10-08-2019 08:42-0400 Pulse (Heart Rate) 99 /min [facility] 10-08-2019 06:30-0400 BMI (Body Mass Index) 32.43 kg/m2 Forest Childs [facility], [place] 10-08-2019 06:30-0400 Body weight 99.[address] [facility] [place] 10-05-2019 18:01-[address] [facility] [place] 09-15-2019 18:31-0400 Body Temperature 98.91 [degF] [facility] [place] 09-15-2019 18:31-0400 BP Diastolic 63 mm[Hg] [facility] , [place] 09-15-2019 18:31-0400 BP Systolic 133 mm[Hg] [facility] , [place] 09-15-2019 18:31-0400 Pulse (Heart Rate) 101 /min [facility], [place] 09-15-2019 18:31-0400 Pulse Oximetry 93 % [facility] , [place] 09-15-2019 18:31-0400 Respiratory Rate 18 /min [facility] [place] 09-15-2019 17:26-0400 BMI (Body Mass Index) 32.19 kg/m2 [facility] [place] 09-15-2019 17:26-0400 Body weight 98.88 kg [facility] , [place] 08-29-2019 15:11-0400 Pulse Oximetry 95 % Jacob [facility] , [place] 08-29-2019 14:42-0400 Body Temperature 98.29 [degF] Jacob Granado [facility], [place] 08-29-2019 14:42-0400 BP Diastolic 65 mm[Hg] [facility] , [place] 08-29-2019 14:42-0400 BP Systolic 133 mm[Hg] [facility] , [place] 08-29-2019 14:42-0400 Pulse (Heart Rate) 84 /min [facility], [place] 08-29-2019 14:42-0400 Respiratory Rate 16 /min Jacob Granado [facility] , [place] 08-29-2019 06:34-0400 BMI (Body Mass Index) 32.17 kg/m2 Jacob [facility], [place] 08-29-2019 06:34-0400 Body weight 98.8 kg [facility] [place] 08-25-2019 15:11-0500 Height 175.3 cm [facility] , [place] 08-10-2019 14:26-0500 Body Temperature 97.2 [degF] [facility], [place] 08-10-2019 14:26-0500 BP Diastolic 81 mm[Hg] [facility] , [place] 08-10-2019 14:26-0500 BP Systolic 159 mm[Hg] Heena Alvaro [facility] , [place] 08-10-2019 14:26-0500 Pulse (Heart Rate) 86 /min Heena John [facility], [place] 08-10-2019 14:26-0500 Pulse Oximetry 94 % Heena [facility] , [place] 08-10-2019 14:26-0500 Respiratory Rate 16 /min Heena John [facility], [place] 08-07-2019 06:00-0500 BMI (Body Mass Index) 31.58 kg/m2 Heena [facility], [place] 08-07-2019 06:00-0500 Body weight 97 kg Heena John [facility] , [place] 08-05-2019 16:57-0500 Height 175.3 cm [facility] , [place] Encounters Encounter Date Encounter Type Care Provider Facility Start: 01-05-2025 End: 01-05-2025 Orders Only Louie Paul DO Work Phone: [facility] Start: 01-03-2025 End: 01-03-2025 ambulatory Louie Mabryng DO Work Phone: [facility] Work Phone: Start: 01-03-2025 End: 01-03-2025 Patient encounter procedure Baltazar Cho MD -[facility] Work Phone: Start: 12-30-2024 End: 12-30-2024 ambulatory Louie Paul DO Work Phone: [facility] Work Phone: Start: 12-30-2024 End: 12-30-2024 Patient encounter procedure Baltazar Cho MD -[facility] Work Phone: Start: 12-29-2024 End: 12-29-2024 Documentation procedure Nicole Douglas LPN [facility] Start: 12-28-2024 End: 12-28-2024 Office outpatient new 45 minutes Kelley Garcia MD Work Phone: [facility] Comment on above: Peripheral eosinophi stacy (Primary Dx); COPD, moderate (CMS-HCC); Mixed obstructive and restrictive ventilatory defect; Exertional dyspnea; Cigarette nicotine dependence without complication; Acute cough; Other allergic rhinitis Start: 12-28-2024 End: 12-28-2024 ambulatory [facility] Comment on above: SOB (shortness of br eath) [R06.02] (Primary Dx) Chronic obstructive pulmonary disease, unspecified COPD type (CMS-HCC) (Primary Dx); Acute exacerbation of chronic obstructive pulmonary disease (COPD) (CMS-HCC) Start: 12-12-2024 End: 12-12-2024 Patient encounter procedure Israel Dye DO -[facility] Work Phone: Start: 10-18-2024 End: 10-18-2024 Office outpatient visit 25 minutes Louie Paul DO Work Phone: [facility] Comment on above: COPD exacerbation ([facility]) (Primary Dx); Urinary frequency; Chronic obstructive pulmonary disease, unspecified COPD type ([facility]); Vagina, candidiasis Start: 10-18-2024 End: 10-18-2024 ambulatory [facility] Start: 10-03-2024 End: 10-03-2024 Orders Only Louie Paul DO Work Phone: [facility] Start: 09-14-2024 End: 09-14-2024 Orders Only Louie Paul DO Work Phone: [facility] Comment on above: Paroxysmal atrial fi brillation ([facility] Start: 09-05-2024 End: 09-05-2024 Orders Only Louie Paul DO Work Phone: [facility] Start: 09-01-2024 End: 09-01-2024 ambulatory [facility] Start: 09-01-2024 End: 09-01-2024 Office outpatient visit 25 minutes Louie Paul DO Work Phone: [facility] Comment on above: Mixed hyperlipidemia (Primary Dx); Paroxysmal atrial fibrillation ([facility] Chronic obstructive pulmonary disease, unspecified COPD type ([facility]); Gastroesophageal reflux disease, unspecified whether esophagitis present; Sleep apnea, unspecified type; Class 2 severe obesity due to excess calories with serious comorbidity and body mass index (BMI) of 38.0 to 38.9 in adult ([facility]) Start: 09-01-2024 End: 09-01-2024 ambulatory [facility] Start: 08-03-2024 End: 08-04-2024 Refill Mohinderjennifer Bruno PHOTOGRAPHER [employer]ISH[employer] Work Phone: [facility] Comment on above: Paroxysmal atrial fi brillation ([facility]) Start: 07-13-2024 End: 07-13-2024 Refill Louie Paul DO Work Phone: [facility] Comment on above: Fibromyalgia Start: 06-18-2024 End: 06-20-2024 Refill Mohinder Bruno PHOTOGRAPHER [employer] Work Phone: [facility] Comment on above: Paroxysmal atrial fi brillation ([facility]) Start: 06-13-2024 End: 06-13-2024 ambulatory [facility] Start: 06-01-2024 End: 06-09-2024 Telephone encounter Catalina Reynolds RN [facility] Comment on above: Transition Of Care Start: 05-28-2024 End: 05-30-2024 ambulatory [facility] Start: 05-11-2024 End: 05-11-2024 ambulatory [facility] Start: 03-31-2024 End: 03-31-2024 ambulatory [facility] Start: 03-23-2024 End: 03-23-2024 ambulatory [facility] Start: 02-26-2024 End: 02-26-2024 ambulatory [facility] Start: 02-24-2024 End: 02-24-2024 ambulatory [facility] Start: 02-17-2024 End: 02-17-2024 ambulatory [facility] Start: 02-01-2024 End: 02-01-2024 ambulatory [facility] Start: 02-01-2024 End: 02-01-2024 ambulatory Belle Monet MD Facility: Dat Start: 01-15-2024 End: 01-15-2024 [facility] Start: 01-15-2024 End: 01-15-2024 Emergency department patient visit PAPI Rodríguez [facility] Start: 12-22-2023 End: 12-22-2023 ambulatory CELIA Mcneill [facility] Start: 12-07-2023 End: 12-07-2023 ambulatory Belle Monet MD Facility: [facility] Start: 11-23-2023 End: 11-23-2023 ambulatory RYANNE HENRY [facility] Start: 10-26-2023 End: 10-26-2023 ambulatory Belle Monet MD Facility: [facility] Start: 08-31-2023 End: 08-31-2023 ambulatory Belle Wareitis Facility: [facility] Start: 08-10-2023 End: 08-10-2023 ambulatory Belle Wareitis Facility: [facility] Start: 08-03-2023 End: 08-03-2023 ambulatory Belle Monet MD Facility: [facility] Start: 12-16-2021 End: 12-17-[address] [...] End: 11-22-2020 Emergency department patient visit CADEN BALDWIN [facility] Start: 11-22-2020 End: 11-22-2020 Emergency department patient visit Heena John MD [facility] Comment on above: COPD exacerbation (H CC) (Primary Dx) Start: 04-18-2020 End: 04-21-2020 [facility] Start: 04-16-2020 End: 04-17-2020 Patient encounter procedure RACHELVAPRASAD Michelle [facility] Start: 04-16-2020 End: 04-16-2020 Subsequent hospital visit by physician Caden [facility] Comment on above: Dizziness; Polydipsia Start: 03-23-2020 End: 03-26-2020 ambulatory ENESI O CORA [facility] Start: 03-23-2020 End: 03-25-2020 Subsequent hospital visit by physician [facility] Mri Rm 119 [facility] MRI Comment on above: Osteoarthritis of ri t acromioclavicular joint Start: 11-02-2019 End: 11-02-2019 Emergency department patient visit Warren Olivas Work Phone: [facility] Comment on above: COPD exacerbation (H CC) (Primary Dx) Start: 10-05-2019 End: 10-08-2019 Evaluation and management of inpatient Forest Childs Work Phone: [facility] Progressive Care Comment on above: COPD exacerbation (H CC) (Primary Dx); Acute respiratory failure with hypoxia (HCC) Start: 09-15-2019 End: 09-15-2019 Emergency department patient visit Levy Felix Work Phone: [facility] Comment on above: Cough (Primary Dx); Abnormal CXR; Viral URI Start: 08-25-2019 End: 08-29-2019 Evaluation and management of inpatient Jacob Granado Work Phone: [facility] Med Surg Comment on above: COPD exacerbation (H CC) (Primary Dx); Influenza with respiratory manifestation other than pneumonia; COPD with acute exacerbation (HCC) Start: 08-05-2019 End: 08-10-2019 Evaluation and management of inpatient Heena John JAUN Med Surg Comment on above: COPD exacerbation (H CC) (Primary Dx); Cough; Moderate persistent asthma with acute exacerbation Start: 05-11-2019 End: 05-12-2019 Patient encounter procedure NAJMA KEN [facility] Start: 05-11-2019 End: 05-11-2019 Subsequent hospital visit by physician Najma [facility] Comment on above: Encounter for screen ing for diabetes mellitus; Screening for hyperlipidemia Procedures Date Procedure Procedure Detail Performing Clinician Start: 10-18-2024 POCT INFLUENZA A/INF LUENZA B/SARS-COV-2 VERITOR Louie Paul DO Work Phone: Start: 10-18-2024 Urnls dip stick/tabl et rgnt non-auto w/o micrscp Louie Paul DO Work Phone: Start: 10-18-2024 Adult depression scr eening assessment Louie Paul DO Work Phone: Start: 06-13-2024 Follow-up visit Follow-up LOUIE PAUL Start: 06-13-2024 Adult depression scr eening assessment Mohinder Bruno PH[employer]GR[employer]HER [employer] Work Phone: Start: 05-28-2024 Adult depression scr eening assessment Catalina Reynolds RN Start: 11-22-2020 Radiologic exam ches t single view Heena John MD Start: 11-22-2020 Basic metabolic pane l calcium total Heena John MD Start: 11-22-2020 COVID-19, RAPID Heena John MD Start: 04-18-2020 Ct head/brain w/o co ntrast material RACHELVAPRASAD JESUS MANUEL Start: 04-16-2020 Assay of [...] Radiologic exam ches t single view Warren Rohitkobe Work Phone: Start: 11-02-2019 Assay of lactate Warren Beeyenypilar Work Phone: Start: 11-02-2019 Assay of troponin quantitative Warren Beeyenypilar Work Phone: Start: 11-02-2019 Blood count complete auto&auto difrntl wbc Warren Olivas Work Phone: Start: 11-02-2019 C-reactive protein Anton Beekobe Work Phone: Start: 11-02-2019 Comprehensive metabo lic panel Warren Beeyenypilar Work Phone: Start: 11-02-2019 Fibrin dgradj produc ts d-dimer quantitative Warren Beeyenypilar Work Phone: Start: 11-02-2019 Lactate dehydrogenase ldh [...] Granado Work Phone: Start: 08-25-2019 Iaadiadoo influenza Tho jose alberto Granado Work Phone: Start: 08-25-2019 [...] 08-10-2019 Radiologic exam ches t 2 views Cadne Baldwin Work Phone: Start: 08-10-2019 Basic metabolic [...] Baldwin Work Phone: Start: 08-08-2019 End: 08-08-2019 [facility] w/cell washg spx [...] Basic metabolic pane l calcium total Heena Carlos A John Start: 08-05-2019 Blood count complete auto&auto difrntl wbc Heena John Start: 08-05-2019 Fibrin dgradj produc ts d-dimer quantitative Heena John Start: 05-11-2019 Assay of thyroid stimulating hormone tsh NAJMA KEN Start: 05-11-[address] gtt 3 specimens NAJMA KEN Start: 05-11-2019 Lipid panel FER D JESUS MANUEL Start: 05-11-2019 Assay of thyroid stimulating hormone tsh Najma Martinez Jesus Manuel Work Phone: Start: 05-11-[address] gtt 3 specimens [employer] K Jesus Manuel Work Phone: Start: 05-11-2019 Lipid panel Fer d Michelle Ken Work Phone: Plan of Treatment Date Care Activity Detail Author Start: 02-25-2027 Screening for malignant neoplasm of colon Colon Cancer Screening 3 Year [facility] Start: 12-28-2025 Adult BMI Screening [facility] Start: 12-28-2025 Tobacco Screening Tobacco Screening [facility] [employer] [facility] Start: 10-18-2025 Depression Screening [facility] Start: 10-18-2025 Fall Risk Screening Fall Risk Screening [facility] [employer] [facility] Start: 10-18-2025 Tobacco Screening [facility] [employer] [facility] Start: 09-01-2025 Adult BMI Screening [facility] [employer] [facility] Start: 09-01-2025 Tobacco Screening [facility] Start: 08-31-2025 COVID-19 Vaccine (1) COVID-19 Vaccine (1) [facility] Phone: Comment on above: Postponed from 1971 (Patient Refus ed) Start: 08-31-2025 Influenza vaccination Flu vaccine (Season Ended) [employer] Phone: Comment on above: Postponed from 02/20/2021 (Patient Refus ed) Start: 06-22-2025 DTaP,Tdap and Td Vaccines (1 - Tdap) DTaP,Tdap and Td Vaccines (1 - Tdap) [facility] Comment on above: Postponed from 1978 (Patient Refus ed) Start: 06-13-2025 Adult BMI Screening Adult BMI Screening [facility] [employer] [facility] Start: 06-13-2025 Depression Screening Depression Screening [facility] [employer] ystem Start: 06-13-2025 Fall Risk Screening Fall Risk Screening [facility] [employer] [facility] Start: 06-13-2025 Tobacco Screening Tobacco Screening [facility] [employer] [facility] Start: 05-29-2025 Adult BMI Screening Adult BMI Screening [facility] [employer] [facility] Start: 05-29-2025 Tobacco Screening Tobacco Screening [facility] [employer] [facility] Start: 05-28-2025 Depression Screening Depression Screening [facility] [employer] S [facility] Start: 03-31-2025 Adult BMI Follow Up Plan Adult BMI Follow Up Plan [facility] [employer] [facility] Start: 03-31-2025 Fall Risk Screening Fall Risk Screening [facility] [employer] [facility] Start: 03-29-2025 End: 03-29-2025 Patient encounter procedure 03/29/2025 10:45 AM EDT [facility] [address] [phone] Kelley Garcia MD [address] [address] [facility] Start: 03-21-2025 End: 03-21-2025 Patient encounter procedure 03/21/2025 10:20 AM EDT Office Visit [facility] [address] [place] [phone] [facility] Start: 02-20-2025 Influenza vaccination Influenza Vaccine [facility]stem Start: 01-10-2025 End: 01-10-2025 Patient encounter procedure 01/10/2025 8:00 AM EDT Appointment [facility] - CT Imaging [address] [place] [phone] [facility] - [facility] Imaging Start: 12-28-2024 End: 12-28-2025 CT Chest WO contrast CT chest without contrast Imaging Routine COPD, moderate ([facility]) Mixed obstructive and restrictive ventilatory defect Exertional dyspnea Peripheral eosinophilia Expected: 12/28/2024, Expires: 12/28/2025 [facility] Comment on above: Expected: 12/28/2024, Expires: Start: 12-14-2024 Patient referral [facility] Work Phone: Start: 09-19-2024 Influenza vaccination Influenza Vaccine [facility] ystem Comment on above: Postponed from 02/21/2024 (Patient Refus ed) Start: 09-05-2024 End: 09-05-2024 Patient encounter procedure 09/05/2024 11:30 AM EDT Appointment [facility] - Cardiovascular [address] [place] [phone] Louie Paul DO [address], [place] [address] [facility] - Cardiovascular Start: 09-01-2024 End: 09-01-2025 Event monitor Event monitor Cardiac Services Routine Paroxysmal atrial fibrillation ([facility]) Expected: 09/01/2024, Expires: 09/01/2025 [facility] Comment on above: Expected: 09/01/2024, Expires: Start: 08-08-2024 Pneumococcal 0-64 years Vaccine (2 of 2) Pneumococcal 0-64 years Vaccine (2 of 2) [facility] Work Phone: Start: 08-01-2024 End: 08-01-2024 Patient encounter procedure 08/01/2024 10:30 AM EST Office [facility] [address] [place] [phone] Louie Paul DO [address], [place] [address] [facility] Start: 06-27-2024 End: 06-27-2024 Patient encounter procedure 06/27/2024 2:45 PM EST [facility] A Department of [facility] [address] [phone] Celia Cowan MD [address] [address] [facility] Adult Endocrinology, A Department of [facility] Start: 06-13-2024 End: 06-13-2024 Patient encounter procedure 06/13/2024 3:30 PM EST [facility] [address] [place] [address] Louie Paul DO [address], [facility] [place] [place] [address] [facility] Start: 05-11-2024 Lipid panel Lipid screen [place], [place] Start: 05-11-2024 Lipid screen Lipid screen [place], [place] Start: 02-21-2024 Influenza [facility] Start: 05-11-2022 Diabetes screen Diabetes screen [place], [place] Start: 10-17-2021 Shingles Vaccine (1 of 2) Shingles Vaccine (1 of 2) [facility] Phone: Comment on above: Postponed from 2009 (Patient Refus ed) Start: 04-16-2021 Hemoglobin A1c measurement A1C test (Diabetic or Prediabetic) [facility] Phone: Start: 04-16-2021 Thyroid stimulating hormone measurement TSH testing [facility] Phone: Start: 12-24-2020 DTaP/Tdap/Td vaccine (1 - Tdap) DTaP/Tdap/Td vaccine (1 - Tdap) [facility] Work Phone: Comment on above: Postponed from 1978 (Patient Refus ed) Start: 10-05-2020 TSH Qn TSH testing [place], [place] Start: 10-05-2020 TSH testing TSH [place] Start: 05-11-2020 TSH testing TSH [place] Start: 05-10-2020 End: 05-10-2020 Office Visit 05/10/2020 Office Visit Primary Care Najma Ken MD [address], [place] [id number] [facility] Start: 05-05-2020 DTaP/Tdap/Td vaccine (1 - Tdap) DTaP/Tdap/Td vaccine (1 - Tdap) [place], [place] Comment on above: Postponed from 1978 (Patient Refus ed) Postponed from 03/05 (Patient Refused) Start: 05-05-2020 Hepatitis C screen Hepatitis C screen [place] Comment on above: Postponed from 1959 (Patient Refus ed) Start: 05-05-2020 Hepatitis C screening Hepatitis C screen [place] Comment on above: Postponed from 1959 (Patient Refus ed) Start: 05-05-2020 HIV screen HIV screen [place] Comment on above: Postponed from 1974 (Patient Refus ed) Start: 05-05-2020 HIV screening HIV screen [place] Comment on above: Postponed from 1974 (Patient Refus ed) Start: 04-18-2020 End: 04-18-2020 Appointment 04/18/2020 Appointment Radiology [facility] CT Scan Start: 02-21-2020 Influenza vaccination [place], [place] Start: 08-04-2019 End: 08-04-2019 Office Visit 08/04/2019 Office Visit Primary Care Najma Ken MD [address] [place] [address] [phone] [facility] Start: 02-20-2019 Influenza vaccination Flu vaccine (#1) [place], [place] Start: [address] lung screening Low dose CT lung screening [place] Start: 2009 Administration of varicella zoster vaccine Zoster (Shingles) Vaccine (1 of 2) [facility] Start: 2009 Breast cancer screen Breast cancer screen [place], [place] Start: 2009 Colon cancer screen colonoscopy Colon cancer screen colonoscopy [place] Start: 2009 Screening for malignant neoplasm of breast Breast cancer screen [place] Start: 2009 Screening for malignant neoplasm of colon Colon cancer screen colonoscopy [place] Start: 2009 Shingles Vaccine (1 of 2) Shingles Vaccine (1 of 2) [place] Start: 1999 Diabetes screen Diabetes screen [place] Start: 1999 Lipid screen Lipid screen [place] Start: 1999 Screening for malignant neoplasm of breast Mammogram [facility] Start: 1978 DTaP,Tdap and Td Vaccines (1 - Tdap) DTaP,Tdap and Td Vaccines (1 - Tdap) [facility] Start: 1965 Pneumococcal 0-64 years Vaccine (1 of 1 - PPSV23) Pneumococcal 0-64 years Vaccine (1 of 1 - PPSV23) [place], [place] Start: 1959 Medicare Annual Wellness Visit Medicare Annual Wellness Visit [facility] Start: 1959 Tobacco Counseling Tobacco Counseling [facility] Start: 1959 TSH testing TSH testing [place] Acapella Acapella Respira tory Care Routine Daily until discontinued starting 08/06/2019 [place] Comment on above: Daily until discontinued starting 2019 [employer] [place] Comment on above: Release Upon Ordering for 1 Occurrences starting 10/06/2019 ONE TIME for 1 Occur rences starting 08/08/2019 End: 12-28-2025 Xrduq-2-bolvymilygx Kdoru-1-dtwwbjaiimd Lab Routine COPD, moderate ([facility]) 1 Occurrences starting 12/28/2024 until 12/28/2025 [employer] Work Phone: Comment on above: 1 Occurrences starting 12/28/2024 until 12/28/2025 End: 12-28-2025 Ngpnq-4-Styegywgoim Phenotype Lxoyu-6-Jiwzvunbigx Phenotype Lab Routine COPD, moderate ([facility]) 1 Occurrences starting 12/28/2024 until 12/28/2025 [employer] Comment on above: 1 Occurrences starting 12/28/2024 until 12/28/2025 Basic Metabolic Prof Basic Metab olic Prof Lab Routine Daily until discontinued starting 08/06/2019, 5 completed [facility] [employer] Comment on above: Daily until discontinued starting 2019, 5 completed Body fluid cell count [facility] [employer] Comment on above: Release Upon Ordering for 1 Occurrences starting 10/06/2019 ONE TIME for 1 Occur rences starting 08/08/2019 CBC CBC Lab Routine Daily until discontinued starting 08/06/2019, 5 completed [facility] [employer] Comment on above: Daily until discontinued starting 2019, 5 completed End: 09-01-2019 CBC auto differential CBC auto differential Lab Routine Daily for 5 Occurrences starting 08/28/2019 until 09/01/2019, 2 completed [facility] [employer] Comment on above: Daily for 5 Occurrences starting 020 until 09/01/2019, 2 completed End: 09-01-2025 Comprehensive metabolic 2000 panel - Serum or Plasma Comprehensive metabolic panel Lab Routine Mixed hyperlipidemia 1 Occurrences starting 09/01/2024 until 09/01/2025 [employer] Comment on above: 1 Occurrences starting 09/01/2024 until 09/01/2025 End: 09-01-2019 Comprehensive Metabolic Panel w/ Reflex to MG Comprehensive Metabolic Panel w/ Reflex to MG Lab Routine Daily for 5 Occurrences starting 08/28/2019 until 09/01/2019, 2 completed [facility] [employer] Comment on above: Daily for 5 Occurrences starting 020 until 09/01/2019, 2 completed Culture with Smear, Acid Fast Bacillius [place] Comment on above: Release Upon Ordering for 1 Occurrences starting 10/06/2019 ONE TIME for 1 Occur rences starting 08/08/2019 Culture, Fungus [place] Comment on above: Release Upon Ordering for 1 Occurrences starting 10/06/2019 ONE TIME for 1 Occur rences starting 08/08/2019 End: 10-06-2019 Culture, Fungus Culture, Fungus Microbiology Routine Once for 1 Occurrences starting 10/06/2019 until 10/06/2019 [place] Comment on above: Once for 1 Occurrences starting 10/06/19 20 until 10/06/2019 Culture, Legionella [place] Comment on above: Release Upon Ordering for 1 Occurrences starting 10/06/2019 End: 10-06-2019 Culture, Legionella Culture, Legionella Microbiology Routine Once for 1 Occurrences starting 10/06/2019 until 10/06/2019 [place] Comment on above: Once for 1 Occurrences starting 10/06/19 until 10/06/2019 Culture, Respiratory [facility] [place] Comment on above: Release Upon Ordering for 1 Occurrences starting 10/06/2019 ONE TIME for 1 Occur rences starting 08/08/2019 Culture, Virus, Respiratory Culture, Virus, Respiratory Microbiology Routine Release Upon Ordering for 1 Occurrences starting 10/06/2019 [place] Comment on above: Release Upon Ordering for 1 Occurrences starting 10/06/2019 Cytology, Non-Internal Investigator Cytology, Non- Internal Investigator Lab Routine ONE TIME for 1 Occurrences starting 08/08/2019 [place] Comment on above: ONE TIME for 1 Occurrences starting 07/23 EKG 12 Lead EKG 12 Lead ECG STAT 11/02/2019 10:57 AM EDT [place] Fungal [place] Comment on above: Release Upon Ordering for 1 Occurrences starting 10/06/2019 ONE TIME for 1 Occur rences starting 08/08/2019 End: 08-08-2019 Fungus Culture Fungus Culture Microbiology Routine Once for 1 Occurrences starting 08/08/2019 until 08/08/2019 [place] Comment on above: Once for 1 Occurrences starting 08/08/19 20 until 08/08/2019 HHN Treatment [place] Comment on above: As Needed until discontinued [...] for 1 Occurrences starting 10/08/2019 until 10/08/2019 [facility] [place] Comment on above: One Time for 1 Occurrences starting 09/20 until 10/08/2019 End: 08-09-2019 Home O2 eval (desaturation screen) Home O2 eval (desaturation screen) Respiratory Care Routine One Time for 1 Occurrences starting 08/09/2019 until 08/09/2019 [facility] [place] Comment on above: One Time for 1 Occurrences starting 07/23 until 08/09/2019 Initiate Oxygen Ther apy Protocol [facility], [place] Comment on above: Daily until discontinued starting [...] 1400, 1800, 2200 until discontinued starting 08/09/2019 [facility] [place] Comment on above: 0600, 1000, 1400, 1800, 2200 until disco ntinued starting 08/09/2019 Microscopic observat ion Gram stain Nom (Unsp spec) [place] Comment on above: Release Upon Ordering for 1 Occurrences starting 10/06/2019 ONE TIME for 1 Occur rences starting 08/08/2019 MR Cervical spine WO contrast [facility] Patient referral [facility] Work Phone: End: 08-25-2019 Pulse Oximetry Spot Check Pulse Oximetry Spot Check Respiratory Care Routine One Time for 1 Occurrences starting 08/25/2019 until 08/25/2019 [facility] Comment on above: One Time for 1 Occurrences starting 10/2019 until 08/25/2019 End: 08-27-2019 Pulse Oximetry Spot Check Pulse Oximetry Spot Check Respiratory Care Routine One Time for 1 Occurrences starting 08/27/2019 until 08/27/2019 [facility] Comment on above: One Time for 1 Occurrences starting 12/2019 until 08/27/2019 Pulse oximetry, overnight Pulse oximetry, overnight Respiratory Care Routine Every 4hr until discontinued starting 08/09/2019 [facility] Comment on above: Every 4hr until discontinued starting End: 12-28-2025 Respiratory allergy panel Respiratory allergy panel Lab Routine Peripheral eosinophilia Acute cough Other allergic rhinitis 1 Occurrences starting 12/28/2024 until 12/28/2025 [employer] Comment on above: 1 Occurrences starting 12/28/2024 until 12/28/2025 Respiratory Care Evaluation and Treat Respiratory Care Evaluation and Treat Respiratory Care Routine Daily until discontinued starting 10/05/2019 [facility] Comment on above: Daily until discontinued starting 2019 Respiratory care evaluation only [facility] Comment on above: Daily until discontinued starting 2019 Daily until disconti nued starting 11/23/2020 End: 12-28-2025 Six minute walk Six minute walk Respiratory Care Routine Chronic obstructive pulmonary disease, unspecified COPD type ([facility]) 1 Occurrences starting 12/28/2024 until 12/28/2025 [employer] Work Phone: Comment on above: 1 Occurrences starting 12/28/2024 until 12/28/2025 Immunizations Immunization Date Immunization Notes Care Provider Catherine howard 08-08-2019 pneumococcal vaccine , unspecified formulation Heena John [facility] 08-08-2019 pneumococcal polysaccharide vaccine, 23 valent Heena John [facility] NEGATED: Highlighted row has not occurred!08-10-2019 influenza, injectable, quadrivalent, preservative free Heena [facility] [place] NEGATED: Highlighted row has not occurred!08-09-2019 influenza, injectable, quadrivalent, preservative free Heena John [facility] NEGATED: Highlighted row has not occurred!08-08-2019 influenza, injectable, quadrivalent, preservative free Heena John [place], [place] Comment on above: Deferred: - Patient refused flu vaccine. Would not like the vaccine at all. Payers Date Payer Category Payer Managed Care Other (unspecified) COMMERCIAL [id number] 2024 Medicare HMO MEDICARE HMO/PPO - GENERIC PLAN [id number] 2024 Medicare [id number] 2024 Medicare MEDICARE [id number] 2024 Medicare [id number] 2023 Unknown 2021 Blue Cross Blue Shie ld Managed Care - PPO ANTHEM [id number] 2018 Unknown BCBS BCBS - [place] P PO xxxxxxxxxxxx 2018-Present [address] [place] [address] xxxxxxxxxxxx [id number] 1959 Unknown [id number] 1.2.840.195912.1.13.239.2. [id number] 1959 Unknown [id number] 1959 Unknown [id number] 2.16.840.1.116656.3.579.2. 175 1959 Unknown [id number] 2.16.840.1.574352.3.579.2. 175 1959 Unknown [id number] 2.16.840.1.890092.3.579.2. 176 1959 Unknown [id number] 2.16.840.1.461619.3.579.2. 176 1959 Unknown [id number] 2.16.840.1.825458.3.579.2. 176 1959 Unknown [id number] 2.16.840.1.251930.3.579.2. 593 1959 Unknown [id number] 2.16.840.1.084928.3.579.2. 593 1959 Unknown [id number] 2.16.840.1.635604.3.579.2. 593 1959 Unknown [id number] 2.16.840.1.519330.3.579.2. 593 1959 Unknown [id number] 2.16.840.1.541338.3.579.2. 593 1959 Unknown [id number] 2.16.840.1.927095.3.579.2. 593 1959 Unknown [id number] 2.16.840.1.757664.3.579.2. 593 1959 Unknown [id number] 2.16.840.1.439441.3.579.2. 1286 1959 Unknown [id number] 2.16.840.1.469466.3.579.2. 196 1959 Unknown [id number] 2.16.840.1.580901.3.579.2. 196 1959 Unknown [id number] 2.16.840.1.439514.3.579.2. 196 1959 Unknown [id number] 2.16.840.1.814544.3.579.2. 196 1959 Unknown [id number] 2.16.840.1.423102.3.579.2. 196 1959 Unknown [id number] 2.16.840.1.207950.3.579.2. 196 1959 Unknown [id number] 2.16.840.1.415824.3.579.2. 1285 1959 Unknown [id number] 2.16.840.1.534606.3.579.2. 1285 1959 Unknown [id number] 2.16.840.1.167797.3.579.2. 1285 1959 Unknown [id number] 2.16.840.1.244980.3.579.2. 1285 1959 Unknown [id number] 2.16.840.1.737439.3.579.2. 1285 1959 Unknown [id number] 2..840.1.657819.3.579.2. 1285 1959 Unknown [id number] 2..840.1.441981.3.579.2. 1285 1959 Unknown [id number] 2..840.1.647183.3.579.2. 1285 1959 Unknown [id number] 2..840.1.242101.3.579.2. 1285 1959 Unknown [id number] 2..840.1.766563.3.579.2. 1285 1959 Unknown [id number] 2.840.1.016832.3.579.2. 1285 1959 Unknown [id number] 2.16.840.1.361771.3.579.2. 1285 1959 Unknown [id number] 2.16.840.1.185943.3.579.2. 1285 1959 Unknown [id number] 2.16.840.1.889243.3.579.2. 1285 1959 Unknown [id number] 2.16.840.1.902513.3.579.2. 1285 1959 Unknown [id number] 2.16.840.1.837188.3.579.2. 1286 1959 Unknown [id number] 2.16.840.1.671260.3.579.2. 1286 1959 Unknown [id number] 2.16.840.1.475158.3.579.2. 1286 Social History Date Type Detail Facility Start: 08-25-2019 End: 06-13-2024 Tobacco smoking status NHIS Former smoker [facility] Start: 08-25-2019 End: 05-29-2024 Cigarettes smoked current (pack per day) - Reported [place] Start: 08-25-2019 End: 12-28-2024 Alcohol intake Current drinker of alcohol (finding) [place] Start: 08-08-2019 Tobacco Comment quit Jul 2019 [place] Start: 02-01-2019 Alcohol Comment OCCASIONALLY [place], [place] Start: 1960 Sex Assigned At Not on file M [place], [place] Start: 02-20-2020 End: 12-28-2024 Tobacco use and exposure Never used [place] Start: 05-05-2019 End: 12-28-2024 Tobacco smoking status [facility] Current every day smoker [place] Exposure to SARS-CoV -2 (event) Unable to assess [place] Start: 06-23-1977 End: 05-28-2024 History of tobacco use Current smoker [facility] Exposure to SARS-CoV -2 (event) Not sure [facility] Start: 06-23-1977 End: 05-28-2024 History of tobacco use Cigarette Smoker [facility] Start: 05-28-2024 End: 05-29-2024 [employer] [facility] Has the [employer], or [employer] threatened to shut off services in your home in past 12Mo No [facility] Are you now , , , , never or living with a partner? [facility] How often to you hav e a drink containing alcohol? 2-4 times a month [facility] How many standard drinks containing alcohol do you have on a typical day? 1 or 2 [facility] How often do you hav e 6 or more drinks on 1 occasion? Never [facility] How hard is it for y ou to pay for the very basics like food, housing, medical care, and heating Not hard at all [facility] Do you feel stress - tense, restless, nervous, or anxious, or unable to sleep at night because your mind is troubled all the time - these days [OSQ] To some extent [facility] Start: 02-25-2023 Alcohol Comment Occasionally [facility] Start: 01-25-2015 Sex Female (finding) [facility] Start: 1960 Sex Assigned At Female F [facility] Goals Date Patient Goal Desired Activity /State Personal health goal Comment on above: Formatting of this n ote might be different from the original. Evaluation of progress towards goal: Return home with self care and support of spouse if needed. Clinical Notes 06-01-2024 to 12-29-2024 Nicole Douglas LPN - 12/29/2024 1:12 PM LIBBYTHolga lidia Garcia MD - 12/28/2024 9:00 AM EDT Note Date & Type Note Facility 12-29-2024 History of Present illness Narrative Your fax has been successfully sent to [phone] at [phone]. KIMBERLEE OXYGEN From: [email or web address] OXYGEN ORDER FAXED TO [facility] documented in this encounter [facility] 12-28-2024 History of Present illness Narrative Images from the original note were not included. [facility] P[facility]EP [facility]IC[facility] [address] [place] [phone] Subjective: Chief Complaint COPD Sleep apnea HPI [...] See pain clinic Chronic obstructive pulmonary disease ([facility] 07/30/2023 Class 2 severe obesity due to excess calories with serious comorbidity and body mass index (BMI) of 38.0 to 38.9 in adult ([facility]) 02/01/2024 COPD (chronic obstructive pulmonary disease) ([facility]) Depression Eczema GERD (gastroesophageal reflux disease) Hypothyroidism Mixed hyperlipidemia 02/17/2024 Multinodular goiter Pneumonia Pulmonary emboli ([facility]) Teeth decayed Past Surgical History: Procedure Laterality [...] Pap therapy. Patient had sleep study at [facility] and PSG data isn't available. She mentioned [...] and no hypoxemia detected but noted her heart rate went above 120 beats per minute, and [...] in this patient's care. Kelley Garcia MD. [facility] Sleep Pulmonary / Critical Care 12/28/24. Please note that portions of this note were generated using voice recognition M*Modal dictation software. Although every effort was made to ensure the accuracy of this automated interior plant caretaker, some errors in interior plant caretaker may have occurred. documented in this encounter [facility] 12-12-2024 Evaluation note Diagnosis Onset Date Resolution Sacroiliac pain acute November 2:05pm Arthritis of lumbosacral spine acute December 30 11:13am Other chronic pain acute December 202024 11:13am Sacroiliitis acute December 30, 025 11:13am [facility] Work Phone: [phone] 213-900004-29-2025 History of Present illness Narrative* Louie Hawkins Chinmay, DO - 10/18/2024 4:30 PM EDT Subjective Patient ID: Cameron Us is a 64 y.o. female. Cameron presents for a couple concerns. She is having urinary frequency but no dysuria. She has vaginal itching. No fever. She has right-sided low back pain which is aggravated by movement. She also has a sinus infection. It started on Thursday. She feels nauseated. She feels sinus drainingand then throws up. She doesn't have a fever. Her doesn't have any symptoms. She hasn't been using the Breztri and not using albuterol nebs 'as much as she should be'. Urinary Tract Infection The following portions of the patient's history were reviewed and updated as appropriate: allergies, current medications, past family history, past medical history, past social history, past surgicalhistory, problem list, and medication reconciliation was completed including current medication andpost discharge medication. Review of Systems Objective Physical Exam Vitals reviewed. Exam conducted with a financial reporting specialist present (). Constitutional: General: She is not [...] all orders for this visit: COPD exacerbation ([facility]) - POCT Influenza A/Influenza B/SARS-COV-2 Veritor Check [...] Chronic obstructive pulmonary disease, unspecified COPD type ([facility]) - eazojqkkzv-rkgaragh-fpcrwytooc (BREZTRI AEROSPHERE) 160-9-4.8 mcg/actuation HFA aerosol inhaler; [...] once for 1 dose. documented in this encounterC[facility] HospitalSemetric [id number] History of Present illness Narrative* Louie Paul DO - 09/01/2024 11:00 AM EDT Subjective Patient ID: Cameron Us is a [...] her heart. She has never seen a acquisition editor for it. She followed up with her [...] not see a sleep specialist or a greenbelt currently. Hypertension Associated symptoms include shortness of breath. Hyperlipidemia Associated symptoms include shortness of breath. The following portions of the patient's history were reviewed and updated as appropriate: allergies, current medications, past family history, past medical history, past social history, past surgicalhistory, problem list, and medication reconciliation was completed including current medication andpost discharge medication. Review of Systems Constitutional: Negative. [...] right-middle field reveals wheezing. Examination of the left- middle field reveals wheezing. Examination of the right-lower field reveals wheezing. Examination of the left-lower field reveals wheezing. Decreased breath soundsand wheezing present. No rhonchi or rales. Comments: [...] Check CMP and lipids. Paroxysmal atrial fibrillation ([facility]) - Event monitor; Future She seems to be in normal sinus rhythm every time she has been here over the last couple years. Tryto find old records regarding when she was diagnosed and what workup she had but was unable to. I am going to check a 30 day event monitor. If it is negative we can consider stopping Eliquis. Chronic obstructive pulmonary disease, unspecified COPD type ([facility]) - Referral to [facility] [place], [place]; Future Gastroesophageal reflux disease, unspecified whether esophagitis present She is using omeprazole every day. She does not have any heartburn. We will try to cut back to every other day. She can use famotidine on the days that she does not take omeprazole. Sleep apnea, unspecified type - Referral to [facility] [place], [place]; Future She would like a home sleep study. She does have significant COPD. I would recommend to have her beseen by the the sleep specialist as well [...] index (BMI) of38.0 to 38.9 in adult ([facility]) She is obese. She would benefit from weight loss. documented in this encounterCleveland [facility] HospitalSemetric [id number] Miscellaneous Notes* Telephone Encounter - Louie Paul DO - 08/03/2024 3:40 PM EST Rx sent in. She is overdue for a CV recheck [facility] Telephone encounter Note* Telephone Encounter - Louie Paul DO - 08/03/2024 3:40 PM EST Rx sent in. She is overdue for a CV recheck [facility]12-28-2024 Miscellaneous Notes* Telephone Encounter - RAKAN Patino - 06/18/2024 7:43 AM EST refill documented in [facility] encounterC[facility]12-28-2024 Telephone encounter Note* Telephone Encounter - RAKAN Patino - 06/18/2024 7:43 AM EST refill [facility]12-11-2024 Miscellaneous Notes* Telephone Encounter - Catalina Reynolds RN - 06/01/2024 8:50 AM EST Transition of Care (*required) *Additional Questions/Concerns Requiring [...] smoker Paroxysmal atrial fibrillation (CMS-HCC) COPD exacerbation ([facility]) Discharge Specialty: Other *Name of Discharging Facility: [facility] Date of Facility Discharge: 05.28.24 - 05.30.24 Date of Interactive Contact and Name of Head Start Teacher: 06.01.24 @ 1730 - Vtpv message @ 1505 - Unable to reach patient *Medication Review [...] and Other Services Utilized/Needed by the Patient: * Telephone Encounter - Edilma Cuevas - 06/01/2024 8:50 AM EST Where do you want her * Telephone Encounter - Louie Paul DO - 06/01/2024 8:50 AM EST 9:00 a.m. next Thursday * Telephone Encounter - Edilma Cuevas - 06/01/2024 8:50 AM EST LM on VM * Telephone Encounter - Edilma Cuevas - 06/01/2024 8:50 AM EST Patient never returned phone call, do you still want to see her for TCM * Telephone Encounter - Louie Paul DO - 06/01/2024 8:50 AM EST Yes, if she can get in tomorrow or Thursday but after that it will be past 14 days * Telephone Encounter - Edilma Cuevas - 06/01/2024 8:50 AM EST Thursday [address] get her you're completely over booked * Telephone Encounter - Louie Paul DO - 06/01/2024 8:50 AM EST okay [facility]* Telephone Encounter - Catalina Reynolds RN - 06/01/2024 8:50 AM EST Transition of Care (*required) *Additional Questions/Concerns Requiring PCP Follow-Up: Unable to reach patient for TCM call. No PCP TCV currently scheduled. This documentation is being used for Transition of Care purposes: Yes Goal: Patient will demonstrate a safe transition from hospital to home. Diagnosis on Discharge: Principal Problem: Acute on chronic respiratory failure with hypoxia ([facility]) Active Problems: Postoperative hypothyroidism Cigarette smoker Paroxysmal atrial fibrillation ([facility]) COPD exacerbation ([facility] Discharge Specialty: Other *Name of Discharging Facility: [facility] Date of Facility Discharge: 05.28.24 - 05.30.24 Date of Interactive Contact and Name of Head Start Teacher: 06.01.24 @ 3749 [facility] message @ [phone] - Unable to reach patient *Medication Review [...] and Other Services Utilized/Needed by the Patient: [facility] Telephone encounter Note* Telephone Encounter - Edilma Cuevas - 06/01/2024 8:50 AM EST Where do you want her [facility]12-[facility] Telephone encounter Note* Telephone Encounter - Louie Paul DO - 06/01/2024 8:50 AM EST 9:00 a.m. next Thursday [facility]12-11-[facility] Telephone encounter Note* Telephone Encounter - Edilma Cuevas - 06/01/2024 8:50 AM EST LM on VM [facility]12[facility] Telephone encounter Note* Telephone Encounter - Edilma Cuevas - 06/01/2024 8:50 AM EST Patient never returned phone call, do you still want to see her for TCM [facility]12-[facility] Telephone encounter Note* Telephone Encounter - Louie Paul DO - 06/01/2024 8:50 AM EST Yes, if she can get in tomorrow or Thursday but after that it will be past 14 days [facility] Telephone encounter Note* Telephone Encounter - Edilma Cuevas - 06/01/2024 8:50 AM EST Thursday the only place I could get her you're completely over booked [id number] Telephone encounter Note* Telephone Encounter - Louie Paul DO - 06/01/2024 8:[address] [facility] [employer] SystemEvaluation note* Diagnosis COPD exacerbation (HCC)- Primary Obstructive chronic bronchitis with exacerbation documented in this encounter [employer] Phone: evaluation note* Diagnosis Stress incontinence- Primary Female stress incontinence Nocturia Paroxysmal atrial fibrillation ([facility]) Atrial fibrillation documented in [facility] System[facility]* Diagnosis Stress incontinence- Primary Female stress incontinence Nocturia Fibromyalgia Unspecified myalgia and myositis documented in [facility] System[facility]* Diagnosis Stress incontinence- Primary Female stress incontinence Nocturia Paroxysmal atrial fibrillation ([facility]) Atrial fibrillation documented in [facility] System[facility]* Diagnosis Stress incontinence- Primary Female stress incontinence Nocturia Mixed hyperlipidemia- Primary Paroxysmal atrial fibrillation ([facility]) Atrial fibrillation Chronic obstructive pulmonary disease, unspecified COPD type ([facility]) Gastroesophageal reflux disease, unspecified whether esophagitis present Sleep apnea, unspecified type Class 2 severe obesity due to excess calories with serious comorbidity and body mass index (BMI) of 38.0 to 38.9 in adult ([facility]) documented in [facility] System[facility]* Diagnosis Stress incontinence- Primary Female stress incontinence Nocturia Paroxysmal atrial fibrillation ([facility]) Atrial fibrillation documented in [facility] encounter [facility] System[facility] note* Diagnosis Stress incontinence- Primary Female stress incontinence Nocturia COPD exacerbation ([facility])- Primary Obstructive chronic bronchitis with exacerbation Urinary frequency Chronic obstructive pulmonary disease, unspecified COPD type ([facility]) Vagina, candidiasis Candidiasis of vulva and vagina documented in this encounter [facility] SystemEvaluation note* Diagnosis Stress incontinence- Primary Female stress incontinence Nocturia SOB (shortness of breath) [R06.02]- Primary Shortness of breath [facility] Diagnosis Stress incontinence- Primary Female stress incontinence Nocturia Peripheral eosinophilia- Primary COPD, moderate ([facility]) Mixed obstructive and restrictive ventilatory defect Exertional dyspnea Other dyspnea and respiratory abnormality Cigarette nicotine dependence without complication Acute cough Other allergic rhinitis [facility] Diagnosis Stress incontinence- Primary Female stress incontinence Nocturia Chronic obstructive pulmonary disease, unspecified COPD type ([facility])- Primary Acute exacerbation of chronic obstructive pulmonary disease (COPD) ([facility]) Obstructive chronic bronchitis with exacerbation [facility]* Attachments The following attachments cannot be sent through Care Everywhere. * COPD Exacerbation Plan ([place]) [facility] Work Phone: InstructionsNot on filedocumented in this [...] on filedocumented in this encounter [facility] SystemReason for referral (narrative)No reason for referral information availableKindred Hospital [facility] Work Phone: History of Present Illness * Erin Ansari RN - 08/29/2019 7:38 PM EDT IV pulled by day RN. Patient dc papers given. Patient dc'd with all belongings and scripts. * Nati Neves OT - 08/29/2019 12:48 PM EDT [facility] OCCUPATIONAL THERAPY MISSED TREATMENT NOTE INPATIENT [...] ABGs: No results for input(s): PHART, PO2ART, AJH6ZUZ, MWP8ASP, BEART, E0KMGZDR, ZDZ6IWL in the last 72 hours. PT/INR: No results found for: PTINR ASSESSMENT / PLAN: Copd exac - steroid, BD - to po meds Influenza - tamiflu Cough suppressants Okay for home from pulmonary standpoint Plan of care discussed with Dr Childs . REASON FOR VISIT: copd, influenza I examined the patient myself The assessment and Plan in the note per my discussion with DIGITAL MEDIA ANALYST. . * Dalila Dash RN - 08/29/2019 [...] ABGs: No results for input(s): PHART, PO2ART, FPW6IGT, SDF4DEP, BEART, J8IOFKUF, MDJ1VSY in the last 72 hours. PT/INR: No results found for: PTINR ASSESSMENT / PLAN: Copd exac - steroid, BD - to po meds Influenza - tamiflu Cough suppressants . * Dre Rucker, PT - 08/28/2019 12:11 PM EDT Physical Therapy Facility/Department: [facility] Initial Assessment [...] Ambulation Assistance: Independent Transfer Assistance: Independent Active Dry Mixer: Yes Mode of Transportation: Car Occupation: Retired [...] 08/28/2019 11:43 AM Name: Cameron Us Acct: [id number] Room: - Day: 1 Admit Date: 08/25/2019 3:06 PM [...] file Gets together: Not on file Attends alevism service: Not on file Active member of [...] 0.85 (L) 1.0 - 4.8 k/uL Absolute [place] # 0.99 0.1 - 1.3 k/uL Absolute [...] ABGs: No results for input(s): PHART, PO2ART, PYI0RRM, HHV1DTY, BEART, Q7TGMEOX, QBD1KKC in the last 72 hours. PT/INR: No results found for: PTINR ASSESSMENT / PLAN: Copd exac - steroid, BD Influenza - tamiflu Cough suppressants . * Fuentes Jiang MD - 08/27/2019 11:11 AM EST Progress Note 08/27/2019 11:11 AM Name: Cameron Us Acct: [id number] Room: Day: 1 Admit Date: 08/25/2019 3:06 [...] file Gets together: Not on file Attends alevism service: Not on file Active member of [...] ABGs: No results for input(s): PHART, PO2ART, POY7EXC, WUS0UWH, BEART, F2XUEMQL, WEI1KDO in the last 72 hours. PT/INR: No [...] NKDA Other pertinent information: Medications confirmed with [facility]. Thank you, Amanda Ellison, PharmD, [facility] [phone] documented in this encounter* Joseph Butterfield RCP [...] 10/07/2019 4:04 PM Name: Cameron Us Acct: [id number] Room: [address] [place] [address] Day: 1 Admit Date: 10/05/2019 2:31 PM [...] file Gets together: Not on file Attends alevism service: Not on file Active member of [...] ABGs: No results for input(s): PHART, PO2ART, YKI7GKH, JYQ9JHV, BEART, P8ZVPDSS, UZC9AKW in the last 72 hours. PT/INR: No [...] in the note per my discussion with DIGITAL MEDIA ANALYST. . * Wendy Parra, RN - 10/07/2019 12:23 AM EDT Pt. Stated my grandson came to the E.R., Told him he probubly has cov. 19, he was not tested. Pt. Continued to say they gave him a paper on what to look for. Proofsheet Corrector updated Dr. Childs. No orders given for [...] up appointments. The pt refused for the staff writer to take her down stairs and the pt stated that she wanted to walk down, the was present and he took down her belongings and her oxygen that was delivered * Forest Chidls MD - 08/10/2019 4:54 PM EST PULMONARY [...] per day ipratropium-albuterol 1 ampule Inhalation Q4H [place] apixaban 5 mg Oral BID DULoxetine 20 [...] ABGs: No results for input(s): PHART, PO2ART, TKM2CNB, PYN2FPF, BEART, E9HRNDQX, FSV8LLI in the last 72 hours. PT/INR: No [...] Home [] Home with Home Health [] Jail Facility [] [facility] Patient [...] Diagnostic studies reviewed Data ReviewCBC: Recent Labs 08/07/1941808/08/1961208/09/19 0632 WBC 20.0* 18.5* 15.9* RBC 4.59 4.55 4.34 HGB 14.1 14.0 13.5 HCT 42.8 42.1 40.1 PLT 367 355 334 BMP: Recent Labs 08/07/1941808/08/1961208/09/19 0632 GLUCOSE 172* 154* 140* NA 140 140 139 K 5.1 5.1 4.5 BUN 26* 32* 29* CREATININE 0.93* 0.75 0.86 CALCIUM 8.1* 8.0* 7.6* ABGs: No results for input(s): PHART, PO2ART, CFE4YTT, LXA1EZZ, BEART, F9RJNYDZ, DCS6OAN in the last 72 hours. PT/INR: No [...] in the note per my discussion with DIGITAL MEDIA ANALYST. . * Caden Baldwin MD - 08/08/2019 [...] Home [] Home with Home Health [] Jail Facility [] [facility] Patient [...] Cameron Us is a 59yowf admitted to [facility] for evaluation of COPD exacerbation. Ms. Us [...] ABGs: No results for input(s): PHART, PO2ART, MEO8WNY, ZDS8MYA, BEART, O8JHNTSR, KXU0IYU in the last 72 hours. PT/INR: No [...] Ana Strickland MD [facility] [address] [id number] * Laura Mathis RN - 08/07/2019 3:15 PM EST Pt. Arrived to room 2046. Vitals obtained. Assessment Completed. Pt. Denies any needs at this time.Will Continue to monitor. * Reina Smith RN - 08/07/2019 3:00 PM EST I agree with the charting of Shellie HALL * Analia James [facility] - 08/06/2019 9:25 PM EST Spoke with Dr. Childs and informed him that Codeine and Tylenol #3 are nonformulary and unavailable at [facility] suggested Phenergan with codeine. He is very insistent that we try to obtain some, he used it at [place] last month. Per [facility], [facility] appears to have Tylenol #3 still in stock. Called and spoke with pharmacist at [facility], she will call her resident care manager or log buyer and find out if she can share with us, will call us back this evening. Awaiting call back. Analia James,PharmD, 08/06/2019, 9:28 PM * Tere Tafoya RN - 08/06/2019 8:45 PM EST Return call received from Dr Childs. He doesn't want Phenergan with codeine due to patient being on Hycodan. Wants to see if pharmacy can get in Codeine tablets. Proofsheet Corrector talked with pharmacy and was informed there [...] New orders received. Will continue to monitor. ON * Linnette Patel RN - 08/06/2019 2:24 [...] New orders for cardizem per Dr. Strickland SN * Linnette Patel RN - 08/06/2019 8:[address] Strickland paged for tachycardia. Awaiting call back. * Amanda Ellison RPH - 08/05/2019 5:01 PM EST Medication History completed: New medications: none Medications discontinued: magnesium Changes to dosing: Duloxetine changes to nightly dosing Stated allergies: NKDA Other pertinent information: Medications confirmed with [facility]. Thank you, Amanda Ellison, PharmD, [facility] [phone] * Jacob Luis RCP - 08/05/2019 2:11 [...] Documents on File Type Date Recorded Patient Food Processor Expl anation Advance Directives and Living Will Power of Director Sales Support Latest Code Status on File Code Status [...] Documents on File Type Date Recorded Patient Food Processor Expl anation ACP-Advance Directive ACP-Power of Director Sales Support Latest Code Status on File Code Status Date Activated Date Inactivated Comments Full Code 10/05/2019 2:43 PM 10/08/2019 2:49 PM Full Code 08/27/2019 11:11 AM 08/29/2019 9:40 PM Full Code 08/25/2019 6:05 PM 08/27/2019 11:11 AM Full Code 08/25/2019 5:50 PM 08/25/2019 6:05 PM Full Code 08/05/2019 4:58 PM 08/10/2019 8:24 PM Documents on File Type Date Recorded Patient Food Processor Expl anation ACP-Advance Directive ACP-Power of Director Sales Support Latest Code Status on File Code Status Date Activated Date Inactivated Comments Full Code 10/05/2019 2:43 PM 10/08/2019 2:49 PM Full Code 08/27/2019 11:11 AM 08/29/2019 9:40 PM Documents on File Type Date Recorded Patient Food Processor Expl anation Advance Directives and Living Will Power of Director Sales Support Latest Code Status on File Code Status [...] Comments 09/26/2021 1:46 PM 09/27/2021 12:14 PM Advance Directive Response Recorded Date/ Time Advance Directives No December 15 9:35am Discharge Instructions * Attachments The following attachments cannot be sent through Care Everywhere. * Cough ([place]) * URI (Upper Respiratory Infection): Viral ([place]) * Coronavirus Disease COVID-19: Isolation ([place]) documented in this encounter* Instructions* Misty Sharp [...] through Care Everywhere. * COPD Exacerbation Plan ([place]) * COPD ([place]) * Smoking Cessation: Health Benefits: General Info ([place]) documented in this encounter* Instructions* Warren Olivas [...] through Care Everywhere. * COPD: General Info ([place]) documented in this encounter Reason for Referral Status Reason Specialty Diagnoses / Procedures Re ferred By Contact Referred To Contact Closed Radiology Diagnoses Osteoarthritis of right acromioclavicular joint Procedures MRI SHOULDER RIGHT WO CONTRAST Mao Shepherd MD [address] [address] Summary Purpose Family History Relationship Condition Age at Onset Recorded Date/T amanda sister Cerebrovascular accident (CVA) Unknown Chief Complaint and Reason for Visit Chief Complaint Admit Date CERVICALGIA December 12, 2024 2:05 pm Ref: Dr. Hardik Payne Sacroccygeal Kg December 30, 2024 11:13am Reason for Visit Admit Date Sacroiliac pain December 12, 2024 2:05 pm Arthritis of lumbosacral spine December 11:13am Other chronic pain December 30, 2024 11:1 3am Sacroiliitis December 30, 2024 11:1 3am Chief Complaint Admit Date CERVICALGIA December 12, 2024 2:05 pm Ref: Dr. Hardik Payne Sacroccygeal Kg December 30, 2024 11:13am RIGHT SACROILIAC JOINT INJ January 03 12:54pm Additional Source Comments Reason for Visit (unrecogniz ed section and content) Reason Comments Shortness of Breath Status Reason Specialty Diagnoses / Procedures Referre d By Contact Referred To Contact Diagnoses Influenza A Influenza A Caden Baldwin MD [address] [place] [address] [employer] Reason Comments Cough Status Reason Specialty Diagnoses / Procedures Re ferred By Contact Referred To Contact Closed Radiology Diagnoses Osteoarthritis of right acromioclavicular joint Procedures MRI SHOULDER RIGHT WO CONTRAST Mao Shepherd MD [address] [place] [address] Status Reason Specialty Diagnoses / Procedures Referre d By Contact Referred To Contact Diagnoses chronic obstructive pulmonary disease Forest Childs MD [address] [facility] [address] [place] [address] [facility] [employer] Reason Comments Cough Shortness of Breath Status Reason Specialty Diagnoses / Procedures Referre d By Contact Referred To Contact Diagnoses COPD exacerbation (HCC) Caden Baldwin MD [address] [place] [address] [facility] [employer] Reason Comments Cough Shortness of Breath Chills Emesis Reason Comments Shortness of Breath Cough Fatigue Headache Reason Onset Date Comments Transition Of Care 06/01/2024 Reason Comments Med Refill Reason Onset Date Comments Med Refill 08/03/2024 Reason Comments Hypertension Hyperlipidemia Reason Comments Urinary Tract Infection Bladder or kidne y, BV- sinus 4 days Reason Comments Testing Reason Comments Shortness of Breath Both at rest and wit h exertionUsing Albuterol 2-3xs dailyNeeds breztri refill, has been out for a monthOccasionally uses nebulizer2 L nocturnal uses with exertion sometimes she says Cough Daily dry cough Wheezing Often Sleep Apnea DOLORES not on cpap INFORMATION SOURCE (unrecogn ized section and content) DATE CREATED AUTHOR 04/17/2020 [facility] DATE CREATED AUTHOR AUTHOR'S ORGANIZ ATION 11/23/2020 [facility] DATE CREATED AUTHOR AUTHOR'S ORGANIZ ATION 09/21/2021 [facility] DATE CREATED AUTHOR AUTHOR'S ORGANIZ ATION 12/20/2021 [facility] DATE CREATED AUTHOR AUTHOR'S ORGANIZ ATION 01/16/2024 [facility] DATE CREATED AUTHOR AUTHOR'S ORGANIZ ATION 02/17/2024 [facility] DATE CREATED AUTHOR AUTHOR'S ORGANIZ ATION 09/06/2024 [facility] DATE CREATED AUTHOR AUTHOR'S ORGANIZ ATION 10/20/2024 [facility] DATE CREATED AUTHOR AUTHOR'S ORGANIZ ATION 01/01/2025 [facility] Ordered Prescriptions (unrec ognized section [...] Care Teams (unrecognized sec tion and content) Information Assurance Specialist Relationship Specialty Start Date End Date Louie Paul DO [address], [facility] [place] [address] PCP - General Family Medicine 05/28/24 Information Assurance Specialist Relationship Specialty Start Date End Date Louie Paul DO [address], [facility] [place] [address] PCP - General Family Medicine 05/28/24 Information Assurance Specialist Relationship Specialty Start Date End Date Louie Paul DO [address] [place] [address] PCP - General Family Medicine 05/28/24 Information Assurance Specialist Relationship Specialty Start Date End Date Louie Paul DO [address] [place] [address] PCP - General Family Medicine 05/28/24 Information Assurance Specialist Relationship Specialty Start Date End Date Louie Paul DO [address], [place] [address] PCP - General Family Medicine 05/28/24 Information Assurance Specialist Relationship Specialty Start Date End Date Louie Paul DO [address], [place] [address] PCP - General Family Medicine 05/28/24 Information Assurance Specialist Relationship Specialty Start Date End Date Louie Paul DO [address] [place] [address] PCP - General Family Medicine 05/28/24 Information Assurance Specialist Relationship Specialty Start Date End Date Louie Paul DO [address] [place] [address] PCP - General Family Medicine 05/28/24 Information Assurance Specialist Relationship Specialty Start Date End Date Louie Paul DO [address] [place] [address] PCP - General Family Medicine 05/28/24 Information Assurance Specialist Relationship Specialty Start Date End Date Louie Paul DO [address], [place] [address] PCP - General Family Medicine 05/28/24 Information Assurance Specialist Relationship Specialty Start Date End Date Louie Paul DO [address], [place] [address] PCP - General Family Medicine 05/28/24 Information Assurance Specialist Relationship Specialty Start Date End Date Louie Paul DO [address], [place] [address] PCP - General Family Medicine 05/28/24 Information Assurance Specialist Relationship Specialty Start Date End Date Louie Paul DO [address], [place] [address] PCP - General Family Medicine 05/28/24 Team Status: Active Member Role Status Dates Louie Paul DO Primary Care Provider Active Team Status: Inactive Member Role Status Dates Israel Dye DO Attending Provider Active S tart: December 12, 2024 End: December 12, 2024 Louie Paul DO Primary Care Provider Active Start: December 12, 2024 End: December 12, 2024 Team Status: Inactive Member Role Status Dates Louie Paul DO Primary Care Provider Active Start: December 30, 2024 End: December 30, 2024 Baltazar Cho MD Attending Provider Active Sta rt: December 30, 2024 End: December 30, 2024 Israel Dye DO Referring Provider Active S tart: December 30, 2024 End: December 30, 2024 Team Status: Inactive Member Role Status Dates Louie Paul DO Primary Care Provider Active Start: January 03, 2025 End: January 03, 2025 Baltazar Cho MD Attending Provider Active Sta rt: January 03, 2025 End: January 03, 2025 Information Assurance Specialist Relationship Specialty Start Date End Date Louie Paul DO [address], [facility] [place] [address] PCP - General Family Medicine 05/28/24 Goals (unrecognized section and content) Goals may be documented in a n alternate sectionGoals may be documented in an alternate section FOR RECORDS PERTAINING TO PATIENTS WHO ARE [...] BE BASED ON THE PRIMARY CLINICAL RECORDS. [employer] provides no warranty or guarantee of the accuracy or completeness of information in this document.
--- NOTE | 2025-01-11 20:07 | ED.EXTPRO1 ---
HPI - Extremity Problem General Chief complaint: Extremity Problem, Nontraumatic Stated complaint: RIGHT LEG PAIN Time Seen by Provider: 01/11/25 19:21 Source: patient Mode of arrival: walk-in Limitations: no limitations History of Present Illness HPI Narrative: This 64-year-old female with a history of DVTs in the past was on Eliquis until approximately 2 months ago when she was taken off of it by her family physician presents for evaluation of pain and swelling in the right lower extremity. She states that this morning she felt that her medial thigh on the right was warm to the touch and was concerned that she had developed a DVT. She discussed it with her pain management provider and was encouraged to follow-up for an ultrasound. She denies any chest pain or shortness of breath. She does have a history of COPD and has been coughing more than normal. She denies any dizziness or syncope. She has not had a fever. She has not had any hemoptysis. She denies any abdominal pain or back pain. She is in pain management for chronic back and hip pain. Related Data Home Medications ?Medication ?Instructions ?Recorded ?Confirmed albuterol sulfate 0.63 mg/3 mL 0.63 mg inhalation TID PRN 08/03/23 02/01/24 solution for nebulization shortness of breath or wheezing apixaban 5 mg tablet (Eliquis) 5 mg PO BID 08/03/23 02/01/24 budesonide 160 mcg-glycopyr 9 2 inh inhalation BID 08/03/23 02/01/24 mcg-formot 4.8 mcg/actuation HFA inhaler ([facility] [employer]) diltiazem HCl 120 mg capsule,24 120 mg PO DAILY 08/03/23 02/01/24 hr,extended release duloxetine 20 mg capsule,delayed 20 mg PO DAILY 08/03/23 02/01/24 release levothyroxine 125 mcg capsule 125 mcg PO DAILY 08/03/23 02/01/24 Previous Rx's ?Medication ?Instructions ?Recorded baclofen 10 mg tablet 10 mg PO BID PRN muscle spasm #60 05/26/24 tabs gabapentin 300 mg capsule 300 mg PO DAILY #30 caps 05/26/24 Allergies Allergy/AdvReac Type Severity Reaction Status Date / Time No Known Drug Allergies Allergy Verified 01/11/25 19:18 Review of Systems ROS Status of ROS 10 or more systems reviewed and unremarkable except as noted in history and below [facility] Medical History S/P neck surgery, follow-up exam ?Z09 - Encounter for follow-up examination after completed treatment for conditions other than malignant neoplasm (ICD-10) Upper back pain ?M54.9 - Dorsalgia, unspecified (ICD-10) Neck pain ?M54.2 - Cervicalgia (ICD-10) Low back pain ?M54.50 - Low back pain, unspecified (ICD-10) Hypothyroidism ?E03.9 - Hypothyroidism, unspecified (ICD-10) Pulmonary embolism ?I26.99 - Other pulmonary embolism without acute cor pulmonale (ICD-10) COPD (chronic obstructive pulmonary disease) ?J44.9 - Chronic obstructive pulmonary disease, unspecified (ICD-10) Smoker ?F17.200 - Nicotine dependence, unspecified, uncomplicated (ICD-10) Chronic cough ?R05.3 - Chronic cough (ICD-10) Atrial fibrillation ?I48.91 - Unspecified atrial fibrillation (ICD-10) Surgical History H/O thumb surgery ?Z98.890 - Other specified postprocedural states (ICD-10) Hx of appendectomy ?Z90.49 - Acquired absence of other specified parts of digestive tract (ICD-10) H/O: hysterectomy ?Z90.710 - Acquired absence of both cervix and uterus (ICD-10) H/O carpal tunnel repair ?Z98.890 - Other specified postprocedural states (ICD-10) H/O thyroidectomy ?E89.0 - Postprocedural hypothyroidism (ICD-10) Social History Little interest or pleasure in doing things: not at all Feeling down, depressed, or hopeless: not at all Exam Narrative Exam Narrative: Vital signs and Nursing Notes reviewed: Patient is afebrile with a normal respiratory, pulse is mildly elevated at 93, she is not elevated blood pressure 158/74 and is not hypoxic with pulse ox of 95% on room air General: Awake, alert, oriented, no acute distress, lying comfortably on the stretcher HEENT: Normocephalic atraumatic, mucous membranes are moist and pink, eyes are clear, normal conjunctiva, vision is grossly intact Neck: Supple, no JVD Chest: Lungs are clear to auscultation with expiratory wheezing with coughing, no rhonchi or rales, no accessory muscle use CVS: Regular rate and rhythm S1-S2, no murmurs rubs or gallops, pulses are brisk and equal bilaterally ABD: Soft, nondistended, nontender, no rebound guarding or rigidity, bowel sounds are normal, no pulsatile masses appreciated Extremities: Moving all extremities, mild tenderness to the right medial thigh without palpable cords, color change, temperature change or other notable abnormality. Legs were compared [id number] without any notable size discrepancy between the right and left leg. Dorsalis pedis and posterior tibialis pulses are brisk and equal bilaterally. Feet are warm and sensate. Skin: Normal in appearance without rash,pallor, petechiae or purpura Neuro: No focal deficits Constitutional Vital Signs, click to edit/add: Last Vital Signs Temp 98.2 F 01/11/25 19:18 Pulse 93 H 01/11/25 19:18 Resp 16 01/11/25 19:18 BP 158/74 H 01/11/25 19:18 Pulse Ox 95 01/11/25 19:18 O2 Del Method Room Air 01/11/25 19:18 Course Vital Signs Vital signs: Vital Signs Temperature 98.2 F 01/11/25 19:18 Pulse Rate 93 H 01/11/25 19:18 Respiratory Rate 16 01/11/25 19:18 Blood Pressure 158/74 H 01/11/25 19:18 Pulse Oximetry 95 01/11/25 19:18 Oxygen Delivery Method Room Air 01/11/25 19:18 Temperature 98.2 F 01/11/25 19:18 Pulse Rate 93 H 01/11/25 19:18 Respiratory Rate 16 01/11/25 19:18 Blood Pressure 158/74 H 01/11/25 19:18 Pulse Oximetry 95 01/11/25 19:18 Oxygen Delivery Method Room Air 01/11/25 19:18 MDM - Extremity (Nontraumatic) MDM Narrative Medical decision making narrative: This 64-year-old female presents for evaluation of BL thigh pain and swelling. She states her symptoms started this morning. She does have a history of DVTs and smokes. She was formally been on Eliquis but was taken off of it several months ago. She denies any chest pain but has been coughing more than normal. She has a history of COPD. Her lungs are clear except when she coughs she had some expiratory wheezing. She declined the need for any breathing treatments or pain medication for her leg. She has normal pulses. I do not appreciate any palpable cords, or induration or notable size difference in the patient's 2 legs. Ultrasound of the right lower extremity does not show any DVT. She was discharged home in stable condition. Encouraged her follow-up closely with her family physician and continue to stay active. Discharge Plan Discharge Chief Complaint: Extremity Problem, Nontraumatic Clinical Impression: Leg pain, right Patient Disposition: Home, Self-Care Time of Disposition Decision: 21:27 Condition: Good Prescriptions / Home Meds: No Action albuterol sulfate 0.63 mg/3 mL solution for nebulization 0.63 mg inhalation TID PRN (Reason: shortness of breath or wheezing) Eliquis 5 mg tablet 5 mg PO BID duloxetine 20 mg capsule,delayed release(DR/EC) 20 mg PO DAILY levothyroxine 125 mcg capsule 125 mcg PO DAILY Breztri [employer] 160-9-4.8 mcg/actuation HFA aerosol inhaler 2 inh inhalation BID diltiazem HCl 120 mg capsule,extended release 24 hr 120 mg PO DAILY gabapentin 300 mg capsule 300 mg PO DAILY Qty: 30 0RF baclofen 10 mg tablet 10 mg PO BID PRN (Reason: muscle spasm) Qty: 60 2RF Print Language: [place] Instructions: Leg Pain (ED) Referrals: HE PAUL [Primary Care Provider, Family Practice] - 1 week Discharge Date/Time: 01/11/25 21:34
== END 2025-01-11 21:34 | disposition home or self-care (01) ==
PROVIDERS: Emergency Provider Emergency Medicine; PCP Family Medicine
DX: M79.604 Pain in right leg (principal); Z86.718 Personal history of other venous thrombosis and embolism; J44.9 Chronic obstructive pulmonary disease, unspecified; Z90.49 Acquired absence of other specified parts of digestive tract; Z90.710 Acquired absence of both cervix and uterus; E89.0 Postprocedural hypothyroidism; F17.200 Nicotine dependence, unspecified, uncomplicated
CPT/HCPCS: 93971; 99284

== ENCOUNTER 2025-06-08 08:44 | Outpatient (OUT) | payer MEDICARE, OTHER, SELFPAY ==
--- OUTSIDE RECORDS SUMMARY | 2025-05-30 16:01 | XMS_ITS | Encounter Summary ---
Author Organization [employer] [facility] tem Address [id number] [address] [place] [address] Care Team Providers Care Rehab Aide Name Role Phone RaghavendraLouie villa Primary Care Provider [phone] Reason for Visit * ReasonCommentsRespiratory Problem Encounter Details DateTypeDepartmentCare Team (Latest Contact Info)Etqyjttgazx88/09/2025 4:01 PM EST - 05/30/2025 6:22 PM [facility] - Emergency [address] [place] [phone] Cornell Arboleda MD [address] [place] [address] COPD exacerbation ([facility]) (Primary Dx) Discharge Disposition: Home Social History Tobacco UseTypesPacks/DayYears UsedDateSmoking Tobacco: Every DayCigarettes Smokeless Tobacco: NeverAlcohol UseStandard Drinks/WeekCommentsYes0 (1 standard drink = 0.6 oz pure alcohol)OccasionallyAHC UtilitiesAnswerDate RecordedIn the past 12 months has the electric, gas, oil, or water company threatened to shut off services in your home?No01/26/2025Social Connection and Isolation Panel AnswerDate RecordedIn a typical week, how many times do you talk on the phone with family, friends, or neighbors?More than three times a week03/21/2025How often do you get together with friends or relatives?More than three times a week 03/21/2025How often do you attend sikh or orthodoxy services?Never03/21/2025Do you belong to any clubs or organizations such as sikh groups, unions, fraternal or athletic groups, or school groups?No03/21/2025How often do you attend meetings of the clubs or organizations you belong to?Never03/21/2025re you , , , , never , or living with a partner?Qbngvgo1503/21/2025UDIT-CAnswerDate RecordedQ1: How often do you have a drink containing alcohol?2-4 times a month05/29/2024Q2: How many drinks containing alcohol do you have on a typical day when you are drinking?1 or 2 05/29/2024Q3: How often do you have six or more drinks on one occasion?Never 05/29/2024Overall Financial Resource Strain (CARDIA)AnswerDate RecordedHow hard is it for you to pay for the very basics like food, housing, medical care, and heating?Not hard at all05/28/2024HQ-2AnswerDate RecordedTotal Saqtp295 Burmese Tiller of Occupational Health - Occupational Stress Questionnaire AnswerDate RecordedDo you feel stress - tense, restless, nervous, or anxious, or unable to sleep at night because yourmind is troubled all the time - these days? To some lwhvyi6903/21/2025Exercise Vital SignAnswerDate RecordedOn average, how many days per week do you engage in moderate to strenuous exercise (like a brisk walk)?0 days03/21/2025On average, how many minutes do you engage in exercise at this level?0 min03/21/2025PRAPARE - TransportationAnswerDate RecordedIn the past 12 months, has lack of transportation kept you from medical appointments or from getting medications?No01/26/2025In the past 12 months, has lack of transportation kept you from meetings, work, or from getting things needed for daily living?01/26/2025Housing InstabilityAnswerDate RecordedAre you worried or concerned that in the next two months you may not have stable housing that you own, rent or stay in as a part of a household?No01/26/2025hildcareAnswer Date RecordedDo problems getting child development professor make it difficult for you to work or study?No05/29/2024EmploymentAnswerDate RecordedDo you need help finding a local career center and/or a training program?No05/28/2024Hunger ScreeningAnswerDate RecordedWithin the past 12 months we worried whether our food would run out before we got money to buy more.Never True03/31/2025Within the past 12 months the food we bought just didn't last and we didn't have money to get more.Never True03/31/2025Purpose - LifeAnswerDate RecordedI have a purpose and direction in my life.Strongly Agree05/29/2024CommentsNoSex and Gender Information ValueDate RecordedSex Assigned at BirthNot on fileLegal QfwLofnfd03/06/2015 11:21 AM EDTGender IdentityNot on fileSexual OrientationNot on filedocumented as of this encounter Last Filed Vital Signs Vital SignReadingTime TakenCommentsBlood Ahjkhtyh239/8305/30/2025 6:15 PM EST Ooyoh403205/30/2025 6:15 PM QSZFunelyosqpk50.3 ??C (97.3 ??F)05/30/2025 4:54 PM ESTRespiratory Gmmd860607/31/2024 6:15 PM ESTOxygen Ghqiputfun24%05/30/2025 6:15 PM ESTInhaled Oxygen Concentration--Wogabr614.9 kg (260 lb)05/30/2025 4:05 PM LJMMysthg118.3 cm (5' 9 )05/30/2025 4:05 PM ESTBody Mass Index38.412 4:05 PM ESTdocumented in this encounter Functional Status * Vital SignsQuestionAnswerDate of DerxktifbkHpotppTL505/8305/30/2025 6:15 PM Heather Mendoza GXDepun8093/09/2025 6:15 PM Heather Mendoza MSOpjr84 05/30/2025 6:15 PM Heather Mendoza RNSpO29312 6:15 PM Heather Mendoza RNMAP (mmHg)9605/30/2025 6:15 PM Heather Mendoza RN * BEE (kcal)AnswerDate of YfwnwxihoyPydwot854598/09/2025 4:05 PM Yesenia Christianson RN * CoughQuestionAnswerDate of AssessmentAuthorCoughNon-productive;Bronchospasm 05/30/2025 5:48 PM Padma Bradley, PERSONNEL WORKER * Vital SignsQuestionAnswerDate of AssessmentAuthorO2 Flow Rate (L/min)2 05/30/2025 5:48 PM Padma Bradley, RCPO2 DeviceNasal ajtacsa9705/30/2025 5:48 PM Padma Bradley, RCPHeart Rate AvonjvVlhvahu39/09/2025 5:48 PM Padma Bradley, TYPFiO2 (%)28107/31/2024 5:48 PM Padma Bradley, PERSONNEL WORKER * Pain AssessmentQuestionAnswerDate of AssessmentAuthorPain LocationChest;Foot 05/30/2025 4:48 PM Heather Mendoza RNPain OrientationRight;Left05/30/2025 4:48 PM Heather Mendoza RNPain TypeAcute pain05/30/2025 4:48 PM Heather Flynn RNPain Assessment0-10107/31/2024 4:48 PM Heather Mendoza RNPain Putxa81507/31/2024 4:48 PM Heather Mendoza RN * Fall Risk 65+QuestionAnswerDate of AssessmentAuthorHave you fallen in the past year? 4:47 PM Heather Mendoza RNDo you feel unsteady while standing or walking? 4:47 PM Heather Mendoza RNDo you worry about falling? 4:47 PM Heather Mendoza RNIs there an observable gait, strength or balance problem? 4:47 PM Heather Mendoza RNIn the past year how many times have you fallen? 4:47 PM Heather Mendoza RNWere you injured? 4:47 PM Heather Mendoza RNScore0107/31/2024 4:47 PM Heather Mendoza RN * [place] Coma ScaleQuestionAnswerDate of AssessmentAuthorEye Ymrckvv615/09/2025 4:05 PM Yesenia Christianson RNBest Motor Fznqewjp633/09/2025 4:05 PM Yesenia Christianson RNBest Verbal Ialeqlbx739/09/2025 4:05 PM Yesenia Christianson RNGlasgow Coma Scale Okykc2409/09/2025 4:05 PM Yesenia Christianson RN * Patient ObservationQuestionAnswerDate of DnhoqgttisTcuwwvTsiark6008/09/2025 4:05 PM Yesenia Christianson RNWeight416005/30/2025 4:05 PM Yesenia Christianson RN * BSA (Calculated - sq m)AnswerDate of AssessmentAuthor2. 4:05 PM Yesenia Funez RN * BMI (Calculated)AnswerDate of OyqjrkhcqxOtcckd41. 4:05 PM Yesenia Funez RN * Inhalation TherapyQuestionAnswerDate of AssessmentAuthorDelivery SourceAir 05/30/2025 5:48 PM Padma Bradley RCPDuration (Minutes)8107/31/2024 5:48 PM Padma Bradley RCPDeviceNebulizer05/30/2025 5:48 PM Padma Bradley RCP * Height and WeightQuestionAnswerDate of AssessmentAutThe University of [facility] Medical Centert MethodStated 05/30/2025 4:05 PM Yesenia Christianson RN * Abuse Indicator ScreeningQuestionAnswerDate of AssessmentAuthorSafe in HomeYes 05/30/2025 4:48 PM Heather Mendoza RNDo you feel safe in your relationship(s)?Yes05/30/2025 4:48 PM Heather Mendoza RNAre you in immediate danger?No05/30/2025 4:48 PM Heather Mendoza RN * Harm Risk AssessmentQuestionAnswerDate of AssessmentAuthorAre you having thoughts of homicide or causing harm to others?No05/30/2025 4:48 PM Heather Flynn RN * Vital SignsQuestionAnswerDate of TjtfkzolekHqltuqZkwl57.312 4:54 PM Heather Mendoza RNTemp eicYmmc9905/30/2025 4:54 PM Heather Mendoza RN * RespiratoryQuestionAnswerDate of AssessmentAuthorCoughNon ecdyufoxes28/09/2025 4:49 PM Heather Mendoza RNCough NltkqpwGzx91/09/2025 4:49 PM Heather Mendoza RN * Adult Sepsis RiskQuestionAnswerDate of AssessmentAuthorSIRS Criteria3 05/30/2025 6:20 PM Nicole, ClindocRisk of Sepsis v.20.6107/31/2024 6:20 PM Nicole Clindoc * AirwayQuestionAnswerDate of AssessmentAuthorAirway (WDL)WDL107/31/2024 4:05 PM Yesenia Christianson RN * BreathingQuestionAnswerDate of AssessmentAuthorBreathing (WDL)WDL107/31/2024 4:05 PM Yesenia Christianson RN * CirculationQuestionAnswerDate of AssessmentAuthorCirculation (WDL)WDL 05/30/2025 4:05 PM Yesenia Christianson RN * DisabilityQuestionAnswerDate of AssessmentAuthorDisability (WDL)WDL107/31/2024 4:05 PM Yesenia Christianson RN * Family/Well Blower NotifiedQuestionAnswerDate of AssessmentAuthor Family/Well Blower notified of Emergency Department Admission?Family wldojzw6905/30/2025 4:48 PM Heather Mendoza RN * Weight in (lb) to have BMI = 25AnswerDate of LtkqwsnalxMsbyvz360.9107/31/2024 4:05 PM Yesenia Christianson RN * Respiratory AssessmentQuestionAnswerDate of AssessmentAuthorBilateral Breath VmzqaqWiulwkyzdd73/09/2025 5:56 PM Padma Bradley RCPRespiratory Pattern Oxweopp6905/30/2025 5:48 PM Padma Bradley RCPChest AssessmentChest expansion ujhsbipfygs95/09/2025 5:48 PM Padma Bradley, TYPAssessment Type Post-ygrvzktuw76/09/2025 5:56 PM Padma Bradley, TYPLevel of Consciousness Alert05/30/2025 5:48 PM Padma Bradley, PERSONNEL WORKER * [place] Suicide BehaviorQuestionAnswerDate of AssessmentAuthor6. Have you ever done anything, started to do anything, or prepared to do anything to end your life?No05/30/2025 4:48 PM Heather Mendoza RN * Suicidal Ideation (Last Month)QuestionAnswerDate of AssessmentAuthor1. In the last month have you wished you were or wished you could go to sleep and not wake up?No05/30/2025 4:48 PM Heather Mendoza RN2. In the last month have you actually had any thoughts of killing yourself?No05/30/2025 4:48 PM Heather Mendoza RNAble to assess?Yes05/30/2025 4:48 PM Heather Mendoza RN * Vitals TimerQuestionAnswerDate of AssessmentAuthorRestart Vitals TimerYes 05/30/2025 6:15 PM Heather Mendoza RN * Respiratory (WDL)AnswerDate of RvmdvfgratJszqeyM66/09/2025 4:49 PM Heather Mendoza RN * TB ScreeningQuestionAnswerDate of AssessmentAuthorPatient has prolonged cough? No05/30/2025 4:48 PM Heather Mendoza RNPatient has bloody cough?No 05/30/2025 4:48 PM Heather Mendoza RNPatient has fever?No05/30/2025 4:48 PM Heather Mendoza RNPatient has night sweats?No05/30/2025 4:48 PM Heather Flynn RNPatient has weight loss?No05/30/2025 4:48 PM Heather Mendoza RNPatient has positive PPD?No05/30/2025 4:48 PM Heather Mendoza RN * [place] Suicide Risk LevelAnswerDate of AssessmentAuthorNot at Suicide Risk 05/30/2025 4:48 PM Heather Mendoza RN * Vital SignsQuestionAnswerDate of VxfrkjenexHcicacPE350/8305/30/2025 6:15 PM Heather Mendoza, DJOtecn3271/09/2025 6:15 PM Heather Mendoza BVBrio57 05/30/2025 6:15 PM Heather Mendoza, GFMbN77431/09/2025 6:15 PM Heather Mendoza RNMAP (mmHg)9605/30/2025 6:15 PM Heather Mendoza RN * BEE (kcal)AnswerDate of VejydxadxpAvgqnr858275/09/2025 4:05 PM Yesenia Christianson RN * Vital SignsQuestionAnswerDate of AssessmentAuthorHeart Rate SourceMonitor 05/30/2025 5:48 PM Padma Bradley RCP * Patient ObservationQuestionAnswerDate of TwunasjygsHdprctDmcqft4445/09/2025 4:05 PM Yesenia Christianson RNWeight416005/30/2025 4:05 PM Yesenia Christianson RN * BSA (Calculated - sq m)AnswerDate of AssessmentAuthor2. 4:05 PM Yesenia Funez RN * BMI (Calculated)AnswerDate of CqfwqtfnuwTldvkh42. 4:05 PM Yesenia Funez RN * Height and WeightQuestionAnswerDate of AssessmentAuthorHeight MethodStated 05/30/2025 4:05 PM Yesenia Christianson RN * Vital SignsQuestionAnswerDate of NxhuammlioTnbzqnDris82. 4:54 PM Heather Mendoza RNTemp nxjVlgf3005/30/2025 4:54 PM Heather Mendoza RN * Weight in (lb) to have BMI = 25AnswerDate of IwlmgngpxdQviohj351.9107/31/2024 4:05 PM Yesenia Christianson RN documented as of this encounter Mental Status * Vital SignsQuestionAnswerEntry WizlIbclxrYM641/8312/02/2025 6:15 PM Heather Flynn CEOpqun7686/09/2025 6:15 PM Heather Mendoza, CNZbec27 05/30/2025 6:15 PM Heather Mendoza IRWfQ83159/09/2025 6:15 PM Heather Mendoza RNMAP (mmHg)9605/30/2025 6:15 PM Heather Mendoza RN * CoughQuestionAnswerEntry DateAuthorCoughNon-productive;Sechfxljcrpv54/09/2025 5:48 PM Padma Bradley, PERSONNEL WORKER * Vital SignsQuestionAnswerEntry DateAuthorO2 Flow Rate (L/min) 5:48 PM Padma Bradley, RCPO2 DeviceNasal mdyouup4705/30/2025 5:48 PM Padma Bradley, RCPHeart Rate AmtarzUzozwhs09/09/2025 5:48 PM Padma Bradley, PERSONNEL WORKER FiO2 (%)28107/31/2024 5:48 PM Padma Bradley, PERSONNEL WORKER * Pain AssessmentQuestionAnswerEntry DateAuthorPain LocationChest;Foot05/30/2025 4:48 PM Heather Mendoza RNPain OrientationRight;Left05/30/2025 4:48 PM Heather Mendoza RNPain Assessment0-10107/31/2024 4:48 PM Heather Mendoza RNPain Agdnb01007/31/2024 4:48 PM Heather Mendoza RN * [place] Coma ScaleQuestionAnswerEntry DateAuthorEye Mwvwjzz484/09/2025 4:05 PM Yesenia Christianson RNBest Motor Bosbcopn624/09/2025 4:05 PM Yesenia Christianson RN Best Verbal Bcxqssjl300/09/2025 4:05 PM Yesenia Christianson RNGlasgow Coma Scale Yjxam7714/09/2025 4:05 PM Yesenia Christianson RN * Vital SignsQuestionAnswerEntry AqatMfkmpdGcoq17.312 4:54 PM Heather Flynn RNTemp xavZgfi8805/30/2025 4:54 PM Heather Mendoza, RAFAEL * Respiratory AssessmentQuestionAnswerEntry DateAuthorBilateral Breath Sounds Tkeaugafzv86/09/2025 5:56 PM Padma Bradley, TYPRespiratory PatternRegular 05/30/2025 5:48 PM Padma Bradley, TYPChest AssessmentChest expansion ovasendmkgf15/09/2025 5:48 PM Padma Bradley, TYPLevel of ConsciousnessAlert 05/30/2025 5:48 PM Padma Bradley, PERSONNEL WORKER documented in this encounter Discharge Instructions * Attachments The following attachments cannot be sent through Care Everywhere. * COPD Exacerbation? Adult ED (Georgian) documented in this encounter Medications at Time of Discharge MedicationSigDispense QuantityRefillsLast FilledStart DateEnd Date acetaminophen (TYLENOL) 325 mg tablet Take 2 tablets (650 mg total) by mouth every 4 (four) hours as needed (Temperature greater than 38.3 C). 30 tablet 09/27/2021 albuterol (PROVENTIL HFA;VENTOLIN HFA) 90 mcg/actuation inhaler Indications:Acute exacerbation of chronic obstructive pulmonary disease (COPD) ([facility])Inhale 2 puffs 4 (four) times a day. 18 g 11012/28/2024 albuterol (PROVENTIL,VENTOLIN) 2.5 mg /3 mL (0.083 %) nebulizer solution Indications:Chronic respiratory failure with hypoxia ([facility])Inhale 3 mL (2.5 mg total) by nebulization every 6 (six) hours as needed for wheezing. 75 mL aspirin 81 mg chewable tablet Chew 1 tablet (81 mg total) and swallow in the morning. atorvastatin (LIPITOR) 40 mg tablet Take 0.5 tablets (20 mg total) by mouth in the morning.03/31/2025 baclofen (LIORESAL) 10 mg tablet 05/26/2024 akcygyriur-ussnrxwr-sciymlmvnc (BREZTRI AEROSPHERE) 160-9-4.8 mcg/actuation HFA aerosol inhaler Indications:Chronic obstructive pulmonary disease, unspecified COPD type ([facility])Inhale 2 puffs in the morning and 2 puffs before bedtime. 5.9 g 10/18/2024 cetirizine (ZyrTEC) 10 mg tablet TAKE 1 TABLET (10 MG TOTAL) BY MOUTH IN THE MORNING 90 tablet dilTIAZem CD (CARDIZEM CD) 120 mg 24 hr capsule Indications:Paroxysmal atrial fibrillation (CMS-HCC)TAKE 1 CAPSULE (120 MG TOAL) BY MOUTH IN THE MORNING 90 capsule FLUoxetine (PROzac) 10 mg capsule Take 1 capsule (10 mg total) by mouth in the morning. 30 capsule Lactobacillus acidophilus (PROBIOTIC ACIDOPHILUS ORAL) Take 1 tablet by mouth in the morning. levothyroxine (SYNTHROID) 125 MCG tablet Take 1 tablet (125 mcg total) by mouth in the morning.02/25/2024 liothyronine (CYTOMEL) 5 MCG tablet Indications:Postoperative hypothyroidismTAKE 1 TABLET BY MOUTH ONCE DAILY IN THE MORNING 30 tablet magnesium oxide (MAGOX) 400 mg tablet Take 2 tablets (800 mg total) by mouth in the morning. metFORMIN (GLUCOPHAGE) 500 mg tablet Take 1 tablet (500 mg total) by mouth in the morning and 1 tablet (500 mg total) in the evening. Take with meals. 180 tablet metoprolol succinate XL (TOPROL XL) 25 mg 24 hr tablet Take 1 tablet (25 mg total) by mouth in the morning. Hold for hr<60 or SBP<110. 30 tablet 01/27/2025 nystatin (MYCOSTATIN) cream APPLY CREAM TOPICALLY TO AFFECTED AREA 2-3 TIMES DAILY UNTIL QJBHDNRG96/19/2025 omeprazole (PriLOSEC) 20 mg capsule Take 1 capsule (20 mg total) by mouth every other day. predniSONE (DELTASONE) 20 mg tablet Take 2 tablets (40 mg total) by mouth in the morning for 7 days. 14 tablet documented as of this encounter ED Notes * Yesenia Low RN - 05/30/2025 4:03 PM EST Has been sick for a couple weeks and is having a hard time breathing, HX of COPD. * Cornell Arboleda MD - 05/30/2025 4:02 PM EST Images from the original note were not included. [facility] Pt Name: Jessica Garcia Birthdate: 1960 Chief Complaint: Chief Complaint Patient presents with ??? Respiratory Problem History of Present Illness: Initial evaluation performed at 4:[address] Arboleda. Patient is a 65 y.o. female who presents to the ED for evaluation of cough and shortness of breath.Pt states she has been short of breath and coughing for a couple of weeks. Pt states she went to urgent care a week ago and received a z- pack, steroids, refill of albuterol inhaler, and refill of albuterol for her nebulizer machine. Pt states she felt better for a couple of days and is now feeling how she felt last week when she went to urgent care. Pt states she is on 2 liters of oxygen at home and is established with a merchandise complaint adjuster. History provided by: Patient and spouse cooker casing used: No Past Medical History: Past Medical History: Diagnosis Date ??? Bronchitis ??? Chronic back pain See pain clinic ??? Chronic obstructive pulmonary disease ([facility]) 07/30/2023 ??? Class 2 severe obesity due to excess calories with serious comorbidity and body mass index (BMI) of 38.0 to 38.9 in adult 02/01/2024 ??? COPD (chronic obstructive pulmonary disease) ([facility]) ??? Depression ??? Eczema ??? GERD (gastroesophageal reflux disease) ??? Hypothyroidism ??? Mixed hyperlipidemia 02/17/2024 ??? Multinodular goiter ??? Other allergic rhinitis 12/28/2024 ??? Pneumonia ??? Pulmonary emboli ([facility]) ??? Status post epidural steroid injection 03/23/2025 ??? Teeth decayed ??? Type 2 diabetes mellitus without complication, without long-term current use of insulin ([facility]) 03/31/2025 Past Surgical History: Past Surgical History: Procedure Laterality Date ??? APPENDECTOMY ??? EYE SURGERY 02/11/2023 ??? FINGER SURGERY ??? FRACTURE SURGERY ??? HYSTERECTOMY ??? LUMBAR EPIDURAL INJECTION 02/01/2024 ??? LYMPH NODE BIOPSY ??? RADIOFREQUENCY ABLATION NERVES ??? SALIVARY GLAND SURGERY 2015 Benign parotid tumor ??? SHOULDER SURGERY ??? THYROIDECTOMY 2016 Family History: Family History Problem Relation Age of Onset ??? Ovarian cancer Mother ??? Heart disease Father ??? Thyroid disease Sister ??? Asthma Daughter ??? Asthma Daughter Social History: Social History Socioeconomic History ??? Marital status: Tobacco Use ??? Smoking status: Every Day Types: Cigarettes ??? Smokeless tobacco: Never Vaping Use ??? Vaping status: Never Used Substance and Sexual Activity ??? Alcohol use: Yes Comment: Occasionally ??? Drug use: No ??? Sexual activity: Not Currently Partners: Male Social Drivers of Health Financial Resource Strain: Low Risk (05/28/2024) Overall Financial Resource Strain (CARDIA) ??? Difficulty of Paying Living Expenses: Not hard at all Food Insecurity: No Food Insecurity (03/31/2025) Hunger Screening ??? Food Insecurity - Worry: Never True ??? Food Insecurity - Inability: Never True Transportation Needs: No Transportation Needs (01/26/2025) PRAPARE - Transportation ??? Lack of Transportation (Medical): No ??? Lack of Transportation (Non-Medical): No Physical Activity: Inactive (03/21/2025) Exercise Vital Sign ??? Days of Exercise per Week: 0 days ??? Minutes of Exercise per Session: 0 min Stress: Stress Concern Present (03/21/2025) [employer]ese [employer] of Occupational Health - Occupational Stress Questionnaire ??? Feeling of Stress : To some extent Social Connections: Moderately Isolated (03/21/2025) Social Connection and Isolation Panel ??? Frequency of Communication with Friends and Family: More than three times a week ??? Frequency of Social Gatherings with Friends and Family: More than three times a week ??? Attends Orthodoxy Services: Never ??? Active Member of Clubs or Organizations: No ??? Attends Club or Organization Meetings: Never ??? Marital Status: Interpersonal Safety: Not At Risk (01/26/2025) Humiliation, Afraid, Rape, and Kick questionnaire ??? Fear of Current or Ex-Partner: No ??? Emotionally Abused: No ??? Physically Abused: No ??? Sexually Abused: No Housing Instability: Low Risk (01/26/2025) Housing Instability ??? Housing Instability: No Review of Systems: Review of Systems Physical Exam: ED Triage Vitals Temp Pulse Resp BP SpO2 -- -- -- -- -- Temp src Heart Rate Source Patient Position BP Location FiO2 (%) -- -- -- -- -- Vitals: 05/30/25 1634 05/30/25 1640 05/30/25 1645 05/30/25 1654 BP: 134/69 Temp: 36.3 ??C (97.3 ??F) TempSrc: Oral Pulse: 92 88 88 Resp: 20 (!) 29 18 SpO2: 92% 94% 92% MAP (mmHg): 87 Height: Weight: Physical Exam Vitals reviewed. HENT: Head: Normocephalic and atraumatic. Eyes: Conjunctiva/sclera: Conjunctivae normal. Cardiovascular: Rate and Rhythm: Normal rate. Pulmonary: Effort: Pulmonary effort is normal. Breath sounds: Wheezing (difuse bilateral) present. Abdominal: General: There is no distension. Palpations: Abdomen is soft. Musculoskeletal: General: Normal range of motion. Cervical back: Normal range of motion and neck supple. Skin: General: Skin is warm and dry. Neurological: General: No focal deficit present. Mental Status: She is alert and oriented to person, place, and time. GCS: GCS eye subscore is 4. GCS verbal subscore is 5. GCS motor subscore is 6. Procedure: Procedures Re-evaluation: Gorge Humphries (scribe), documented on behalf and in the presence of Dr. Arboleda. Medical Decision Making Amount and/or Complexity of Data Reviewed Labs: ordered. Details: Labs notable for: 34 carbon dioxide, 30 BUN, 8.1 calcium 13.1 white blood cells, 117 BNP, 25 aPTT Radiology: ordered and independent interpretation performed. Details: Imaging was independently viewed and is notable for low lung volumes. Agree with official radiologist read. ECG/medicine tests: ordered and independent interpretation performed. Risk Prescription drug management. ED Course: Clinical Impressions as of 05/30/25 1720 COPD exacerbation ([facility]) . ED Disposition None . Please note that portions of this note were completed with a voice recognition program. Efforts were made to edit the dictations but occasionally words are mis-transcribed. Gorge Leal 05/30/25 1607 Gorge Leal 05/30/25 1714 Conrell Arboleda MD 05/30/251950 documented in this encounter Plan of Treatment DateTypeDepartmentCare Team (Latest Contact Info)Acyyocfsuaa33/10/2026 10:00 AM EDTOffice Visit [facility] [address] [place] [phone] Louie Moy, [address], [facility] [place] [address] 03/27/2026 11:00 AM EDTOffice Visit [facility] [address] [place] [phone] documented as of this encounter Goals GoalPatient Goal TypeAssociated ProblemsRecent ProgressPatient-Stated?Author home Kajal Mas LSW Note: Evaluation of progress towards goal: had stress test, await results documented as of this encounter Procedures Procedure NamePriorityDate/TimeAssociated DiagnosisCommentsECG 12-LEADSTAT 05/30/2025 4:52 PM EST SARS/FLU A+B/RSV BY NAAT/MOLECULAR (M4RT COLLECTION TUBE)STAT107/31/2024 4:46 PM EST PH, HTHBUAGWXX60/09/2025 4:38 PM EST TROPONIN I, HIGH SENSITIVITY 0 NAUHRECT45/09/2025 4:21 PM EST TROPONIN I, HIGH SENSITIVITY 0 NVVKBBXR71/09/2025 4:21 PM EST LACTATE W/ AGHTDSUFFT45/09/2025 4:21 PM EST CBC WITH AUTO FZZEXWLFEANBTYGG73/09/2025 4:21 PM EST QHRNZSDE23/02/2025 4:21 PM EST PROTIME & IASCIDQ4905/30/2025 4:21 PM EST D-FVMAMZZPA80/09/2025 4:21 PM EST B-TYPE NATRIURETIC MVITQMNTKNF08/09/2025 4:21 PM EST KJESZUVIZEPPS90/09/2025 4:21 PM EST COMPREHENSIVE METABOLIC OONUCGBXD62/09/2025 4:21 PM EST XR CHEST 1 KRQQDH6505/30/2025 4:12 PM EST documented in this encounter Results * ECG 12 lead (05/30/2025 4:52 PM EST)Specimen (Source)Anatomical Location / LateralityCollection Method / VolumeCollection TimeReceived Time05/30/2025 4:52 PM EST Narrative [facility] - 05/30/2025 5:59 PM EST Authorizing ProviderResult TypeResult StatusParalf Arboleda MDECG ORDERABLESFinal ResultPerforming OrganizationAddressCity/State/ZIP CodePhone Number [facility] * SARS/FLU A+B/RSV by NAAT/Molecular (M4RT Collection Tube) (05/30/2025 4:46 PM EST)ComponentValueRef RangeTest MethodAnalysis TimePerformed AtPathologist SignatureFLU A LRTEgsudikxJstoqwgv36/09/2025 5:[address] HELENAFLU B UAIHubxtjbfOmfmvqoq33/09/2025 5:[address] HELENARSV BY UIJZpravukiInyuesrt17/09/2025 5:35 PM EST [facility] COV 2 BY PCRNot DetectedNot Detected 05/30/2025 5:35 PM ESTPRORANCHO SPRINGS MEDICAL CENTERpecimen (Source) Anatomical Location / LateralityCollection Method / VolumeCollection Time Received TimeSwabNasopharyngeal structure / Axuazts7405/30/2025 4:46 PM EST 05/30/2025 4:57 PM EST Narrative [facility] - 05/30/2025 5:35 PM EST The Xpert Xpress SARS-CoV-2/Flu/RSV Plus test is a rapid, multiplexed real-time RT-PCR test intended for the simultaneous qualitative detection and differentiation of SARS-CoV-2, influenza A, influenza B and respiratory syncytial virus (RSV) viral RNA from individuals suspected of respiratory viral infection consistent with COVID-19 by Their healthcare provider. This test has not been validated in asymptomatic patients. The Xpert Xpress SARS-CoV-2 test is intended for use by qualified and trained operators who are performing tests using either [employer] or [employer] systems and is limited to laboratories that meet the CLIA requirements to perform high and moderate complexity tests. Results are for the simultaneous detection and differentiation of SARS-CoV-2, influenza A, influenza B and RSV nucleic acids in clinical specimens. SARS-CoV-2, influenza A, influenza B and RSV RNA identified by this test are generally detectable in upper respiratory samples during the acute phase of infection. Positive results are Indicative of the presence of the identified virus, [...] unable to be resolved with specimen repeat. Authorizing ProviderResult TypeResult StatusCornell Arboleda MDMICROBIOLOGY - GENERAL ORDERABLESFinal ResultPerforming OrganizationAddressCity/State/ZIP Code Phone Number [facility] [address] [place] [address], * pH Venous (05/30/2025 4:38 PM EST)ComponentValueRef RangeTest MethodAnalysis TimePerformed AtPathologist SignaturepH, Venous7.3537.320 - 7.8468605/30/2025 4:46 PM ESTPRORANCHO SPRINGS MEDICAL CENTERpecimen (Source)Anatomical Location / LateralityCollection Method / VolumeCollection TimeReceived Time venousVenous blood / Vyrnlby7105/30/2025 4:38 PM EST05/30/2025 4:46 PM EST Narrative Authorizing ProviderResult TypeResult StatusCornell HYL[place] BLOOD ORDERABLES Final ResultPerforming OrganizationAddressCity/State/ZIP CodePhone Number [address] [address], [place] * Troponin I, High Sensitivity 0 Hour (05/30/2025 4:21 PM EST)ComponentValueRef RangeTest MethodAnalysis TimePerformed AtPathologist SignatureTROPONIN I, HIGH SENSITIVITY3<16 ng/L107/31/2024 5:02 PM ESTCLEVELAND CLINIC [facility] Specimen (Source)Anatomical Location / LateralityCollection Method / Volume Collection TimeReceived TimeBloodVenous blood / UnknownVenipuncture / Unknown 05/30/2025 4:21 PM EST05/30/2025 4:26 PM EST Narrative Authorizing ProviderResult TypeResult StatusCornell HYL[place] BLOOD ORDERABLES Final ResultPerforming OrganizationAddressCity/State/ZIP CodePhone Number [address] [address], [place] * Lactate w/ Reflex (05/30/2025 4:21 PM EST)ComponentValueRef RangeTest Method Analysis TimePerformed AtPathologist SignatureLACTATE W/REFLEX1.10.4 - 2.0 mmol/L107/31/2024 4:45 PM ESTPRORANCHO SPRINGS MEDICAL CENTERpecimen (Source)Anatomical Location / LateralityCollection Method / VolumeCollection TimeReceived TimeBloodVenous blood / UnknownVenipuncture / Krdgbus1205/30/2025 4:21 PM EST05/30/2025 4:26 PM EST Narrative [facility] - 05/30/2025 4:45 PM EST Result did not trigger repeat Lactate, re-order if needed. Authorizing ProviderResult TypeResult StatusCornell HYLTON BLOOD ORDERABLES Final ResultPerforming OrganizationAddressCity/State/ZIP CodePhone Number [address] [place] [address], * Magnesium (05/30/2025 4:21 PM EST)ComponentValueRef RangeTest MethodAnalysis TimePerformed AtPathologist SignatureMAGNESIUM1.81.8 - 2.6 mg/dL05/30/2025 4:53 PM [facility]pecimen (Source)Anatomical Location / LateralityCollection Method / VolumeCollection TimeReceived Time BloodVenous blood / UnknownVenipuncture / Ttrisky8205/30/2025 4:21 PM EST 05/30/2025 4:26 PM EST Narrative Authorizing ProviderResult TypeResult StatusCornell Arboleda MDLAB BLOOD ORDERABLES Final ResultPerforming OrganizationAddressCity/State/ZIP CodePhone Number [address] [place] [address], [place] * D-Dimer (05/30/2025 4:21 PM EST)ComponentValueRef RangeTest MethodAnalysis TimePerformed AtPathologist SignatureD DIMER<1501 - 255 ng/mL05/30/2025 4:49 PM [facility]Comment:Results <255 ng/mL DDU: The presensence of a VTE can safely be excluded with a negative D-Dimer result and Wells score. A negative result doesn't exclude the possibility of DIC. The test should berepeated along with other diagnostic tests if the patient's symptoms persist or worsen.Specimen (Source)Anatomical Location / Laterality Collection Method / VolumeCollection TimeReceived TimeBloodVenous blood / UnknownVenipuncture / Rkozgcs9705/30/2025 4:21 PM EST05/30/2025 4:26 PM EST Narrative Authorizing ProviderResult TypeResult StatusCornell Arboleda MDLAB BLOOD ORDERABLES Final ResultPerforming OrganizationAddressty/State/ZIP CodePhone Number [address] [place] [address], * (ABNORMAL) B-type natriuretic peptide (05/30/2025 4:21 PM EST)ComponentValue Ref RangeTest MethodAnalysis TimePerformed AtPathologist SbnszajanGZA473(H) <=100 pg/mL05/30/2025 5:07 PM ESTGALION HOSPITALpecimen (Source)Anatomical Location / LateralityCollection Method / VolumeCollection TimeReceived TimeBloodVenous blood / UnknownVenipuncture / Vpfiwqc0705/30/2025 4:21 PM EST05/30/2025 4:26 PM EST Narrative Authorizing ProviderResult TypeResult StatusCornell HYL[place] BLOOD ORDERABLES Final ResultPerforming OrganizationAddressCity/State/ZIP CodePhone Number [facility] [address] [place] [address], * (ABNORMAL) Comprehensive metabolic panel (05/30/2025 4:21 PM EST)Component ValueRef RangeTest MethodAnalysis TimePerformed AtPathologist SignatureSODIUM 915668 - 146 mmol/L107/31/2024 4:53 PM [facility] POTASSIUM3.93.5 - 5.0 mmol/L107/31/2024 4:53 PM [facility]ITALCHLORIDE10098 - 109 mmol/L107/31/2024 4:53 PM [facility]PITALCARBON GJMBWYK04(H)22 - 32 mmol/L107/31/2024 4:53 PM EST [facility]ITALANION GAP85 - 15 mmol/L107/31/2024 4:53 PM [facility]ITALBLOOD UREA KFNJCIFH53(H)5 - 27 mg/dL 05/30/2025 4:53 PM [facility]ITALCREATININE0.970.40 - 1.00 mg/dL05/30/2025 4:53 PM [facility]ITALComment: METHOD TRACEABLE TO IDMS QXRNOLFIUXFBUNP833(H)65 - 99 mg/dL05/30/2025 4:53 PM [facility]PITALCALCIUM8.1(L)8.5 - 10.5 mg/dL05/30/2025 4:53 PM [facility]ITALTOTAL PROTEIN6.96.0 - 8.0 g/dL 05/30/2025 4:53 PM [facility]ITALALBUMIN3.33.2 - 5.3 g/dL05/30/2025 4:53 PM [facility]ITALALKALINE OWVABCADITT3147 - 130 U/L107/31/2024 4:53 PM [facility]AST11<=41 U/L107/31/2024 4:53 PM [facility] ALT12<=31 U/L107/31/2024 4:53 PM [facility] BILIRUBIN,TOTAL0.40.3 - 1.2 mg/dL05/30/2025 4:53 PM [facility]OSPITALEGFR Non-Race Sdwjkczpg41>=60 ml/min/1.73sq.m107/31/2024 4:53 PM [facility]ITALComment: eGFR not reported due to non-numeric value for Creatinine. Reported eGFR is based on the CKD-EPI 2020 equation that does not use a race coefficient. Specimen (Source)Anatomical Location / LateralityCollection Method / Volume Collection TimeReceived TimeBloodVenous blood / UnknownVenipuncture / Unknown 05/30/2025 4:21 PM EST05/30/2025 4:26 PM EST Narrative Authorizing ProviderResult TypeResult StatusCornell HYL[place] BLOOD ORDERABLES Final ResultPerforming OrganizationAddressCity/State/ZIP CodePhone Number [address] [place] [address], * (ABNORMAL) APTT (05/30/2025 4:21 PM EST)ComponentValueRef RangeTest Method Analysis TimePerformed AtPathologist KyktgqdxuGXQH06(L)26 - 37 sec05/30/2025 4:49 PM [facility]ITALpecimen (Source)Anatomical Location / LateralityCollection Method / VolumeCollection TimeReceived Time BloodVenous blood / UnknownVenipuncture / Lsslewo6805/30/2025 4:21 PM EST 05/30/2025 4:26 PM EST Narrative Authorizing ProviderResult TypeResult StatusCornell HYL[place] BLOOD ORDERABLES Final ResultPerforming OrganizationAddressCity/State/ZIP CodePhone Number [address] [place] [address], [place] * Protime & INR (05/30/2025 4:21 PM EST)ComponentValueRef RangeTest Method Analysis TimePerformed AtPathologist XpwxdtmcxNFZVTQV10.89.8 - 13.2 sec 05/30/2025 4:49 PM ESTCLEVELAND CLINIC MARYMOUNT HOSPITALINR1.00.9 - 1.2 05/30/2025 4:49 PM [facility]ITALpecimen (Source) Anatomical Location / LateralityCollection Method / VolumeCollection Time Received TimeBloodVenous blood / UnknownVenipuncture / Dlnczlh4505/30/2025 4:21 PM EST05/30/2025 4:26 PM EST Narrative Authorizing ProviderResult TypeResult StatusParalf Arboleda MDLAB BLOOD ORDERABLES Final ResultPerforming OrganizationAddressCity/State/ZIP CodePhone Number [address] [place] [address], [place] * (ABNORMAL) CBC auto differential (05/30/2025 4:21 PM EST)ComponentValueRef RangeTest MethodAnalysis TimePerformed AtPathologist YodzblinwOIO09.1(H)4 - 11 10^9/L107/31/2024 4:36 PM [facility]OSPITALRBC Count4.56 3.8 - 5.2 10^12/L107/31/2024 4:36 PM [facility] Dmomlglxtj00.211.7 - 15.5 g/dL05/30/2025 4:36 PM ESTCLEVELAND CLINIC MARYMOUNT HOSPITALHematocrit41.935 - 47 %05/30/2025 4:36 PM [facility]ITALMCV9280 - 100 fL05/30/2025 4:36 PM [facility]ITALMCH31.027 - 34 pg05/30/2025 4:36 PM [facility]ITALMCHC33.832 - 36 g/dL05/30/2025 4:36 PM [facility]ITALRDW13.811.5 - 15 %05/30/2025 4:36 PM ESTCLEVELAND CLINIC MARYMOUNT HOSPITALPlatelet Qesby817059 - 450 10^L107/31/2024 4:36 PM EST [facility]ITALMPV7.37 - 12 fL05/30/2025 4:36 PM EST [facility]ITALNeutrophils %61.3%05/30/2025 4:36 PM EST [facility]OS[facility]ITALLymphocytes %29.0%05/30/2025 4:36 PM EST [facility]OSPITALMonocytes %8.0%05/30/2025 4:36 PM EST [facility]ITALEosinophils %0.6%05/30/2025 4:36 PM EST [facility]ITALBasophils %1.1%05/30/2025 4:36 PM EST [facility]ITALNeutrophils Absolute (A)8.0(H)1.5 - 6.6 10^05/30/2025 4:36 PM ESTCLEVELAND CLINIC MARYMOUNT HOSPITALLymphocytes Absolute3.8(H)1.0 - 3.5 10^05/30/2025 4:36 PM ESTTRINITY HEALTH [facility] EAST CAMPUS HOSPITALMonocytes Absolute1.1(H)0.0 - 0.9 10^L107/31/2024 4:36 PM EST [facility] HOSPITALEosinophils Absolute0.10.0 - 0.4 10^9/L 05/30/2025 4:36 PM ESTCLEVELAND CLINIC MARYMOUNT HOSPITALBasophils Absolute0.1 0.0 - 0.2 10^9/L107/31/2024 4:36 PM [facility] Differential TypeAUTOMATED DQGNZTHVBXTB20/09/2025 4:36 PM [facility]ITALpecimen (Source)Anatomical Location / LateralityCollection Method / VolumeCollection TimeReceived TimeBloodVenous blood / Unknown Venipuncture / Qkyempi7305/30/2025 4:21 PM EST05/30/2025 4:26 PM EST Narrative Authorizing ProviderResult TypeResult StatusPaul R Walker MDLAB BLOOD ORDERABLES Final ResultPerforming OrganizationAddressCity/State/ZIP CodePhone Number [facility] [address] [place] [address], * X-ray chest 1 view (05/30/2025 4:12 PM EST)Anatomical RegionLateralityModality Body, ChestN/AComputed RadiographySpecimen (Source)Anatomical Location / LateralityCollection Method / VolumeCollection TimeReceived Time05/30/2025 4:14 PM EST Narrative 05/30/2025 4:15 PM EST XR CHEST 1 VW HISTORY: Shortness of breath and cough. COMPARISON: 01/24/2025 FINDINGS: AP portable upright view of the chest The trachea is midline. ??Cardiomediastinal contour within normal limits. ??No focal consolidation.??No pleural effusion or pneumothorax. ??The aorta is mildly tortuous. There is low lung volumes. 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 IMPRESSION: * ??Low lung volumes with no evidence of acute pathology or interval change. Finalized by Alejandra Laura MD on 05/30/2025 4:15 PM Procedure Note Alejandra Laura MD - 05/30/2025 XR CHEST 1 VW HISTORY: Shortness of breath and cough. COMPARISON: 01/24/2025 FINDINGS: AP portable upright view of the chest The trachea is midline. Cardiomediastinal contour within normal limits.No focal consolidation. No pleural effusion or pneumothorax. The aortais mildly tortuous. There is low lung volumes. Degenerative arthritis inthe AC joint; right more than left. IMPRESSION: * Low lung volumes with no evidence of acute pathology or intervalchange. Finalized by Alejandra Laura MD on 05/30/2025 4:15 PM Authorizing ProviderResult TypeResult StatusCornell Arboleda MDIMG DIAGNOSTIC IMAGING ORDERABLESFinal Result documented in this encounter Visit Diagnoses Diagnosis COPD exacerbation ([facility])- Primary Obstructive chronic bronchitis with exacerbation documented in this encounter Administered Medications Medication OrderMAR ActionAction DateDoseRateSite albuterol (PROVENTIL,VENTOLIN) nebulizer solution 2.5 mg 2.5 mg, nebulization, Once, On Thu05/30/25 at 1606, For 1 dose, Implement INPATIENT/ED Bronchodilator Clinical Practice Guidelines? Yes Given05/30/2025 4:40 PM EST2.5 mg albuterol (PROVENTIL,VENTOLIN) nebulizer solution 2.5 mg 2.5 mg, nebulization, Once, On Thu05/30/25 at 1721, For 1 dose, Implement INPATIENT/ED Bronchodilator Clinical Practice Guidelines? Yes Given05/30/2025 5:48 PM EST2.5 mg ipratropium-albuteroL (DUONEB) 0.5 mg-3 mg(2.5 mg base)/3 mL nebulizer solution 3 mL 3 mL, nebulization, Once, On Thu05/30/25 at 1606, For 1 dose, Implement INPATIENT/ED BronchodilatorClinical Practice Guidelines? Yes Given05/30/2025 4:34 PM EST3 mL predniSONE (DELTASONE) tablet 20 mg 20 mg, oral, Once, On Thu05/30/25 at 1721, For 1 dose, Look-alike/sound-alike medication - verify indication for use. Food-Drug Interaction Education Required May alter blood glucose or insulin requirements Take/give with food Look-alike/sound-alike medication - verify indication for use. Given05/30/2025 6:10 PM EST20 mg predniSONE (DELTASONE) tablet 40 mg 40 mg, oral, Once, On Thu05/30/25 at 1635, For 1 dose, Food-Drug Interaction Education RequiredMay alter blood glucose or insulin requirements Take/give with food Look-alike/sound-alike medication - verify indication for use. Given05/30/2025 4:45 PM EST40 mg sodium chloride 0.9 % flush 3 mL 3 mL, intravenous, As needed, line care, before and after each intermittent use, Starting on Thu05/30/25 at 1605 documented in this encounter Active and Recently Administered Medications Times are shown in EST.Medication Order/ albuterol (PROVENTIL,VENTOLIN) nebulizer solution 2.5 mg (COMPLETED) 2.5 mg, nebulization, Once, On Thu05/30/25 at 1606, For 1 dose, Implement INPATIENT/ED Bronchodilator Clinical Practice Guidelines? Yes * 1640 (Given - Provider: Padma Barbosa RCP) albuterol (PROVENTIL,VENTOLIN) nebulizer solution 2.5 mg (COMPLETED) 2.5 mg, nebulization, Once, On Thu05/30/25 at 1721, For 1 dose, Implement INPATIENT/ED Bronchodilator Clinical Practice Guidelines? Yes * 1748 (Given - Provider: Padma Barbosa RCP) ipratropium-albuteroL (DUONEB) 0.5 mg-3 mg(2.5 mg base)/3 mL nebulizer solution 3 mL (COMPLETED) 3 mL, nebulization, Once, On Thu05/30/25 at 1606, For 1 dose, Implement INPATIENT/ED BronchodilatorClinical Practice Guidelines? Yes * 1634 (Given - Provider: Padma Barbosa RCP) predniSONE (DELTASONE) tablet 20 mg (COMPLETED) 20 mg, oral, Once, On Thu05/30/25 at 1721, For 1 dose, Look-alike/sound-alike medication - verify indication for use. Food-Drug Interaction Education Required May alter blood glucose or insulin requirements Take/give with food Look-alike/sound-alike medication - verify indication for use. * 1810 (Given - Provider: Heather Garg RN) predniSONE (DELTASONE) tablet 40 mg (COMPLETED) 40 mg, oral, Once, On Thu05/30/25 at 1635, For 1 dose, Food-Drug Interaction Education RequiredMay alter blood glucose or insulin requirements Take/give with food Look-alike/sound-alike medication - verify indication for use. * 1645 (Given - Provider: Heather Garg, RAFAEL) Medication Order/ sodium chloride 0.9 % flush 3 mL 3 mL, intravenous, As needed, line care, before and after each intermittent use, Starting on Thu05/30/25 at 1605 documented in this encounter Additional Health Concerns InfectionOnset DateLast IndicatedResolved TimeRespiratory Rule-Out12/02/202505/30/2025 5:35 PM ESTAssessmentNoted TimePHQ-9 Depression Total Score: 9:05 AM EDTA Body Mass Index follow-up plan has been documented for the hgnulrh9303/31/2024 4:52 PM EDTdocumented as of this encounter Care Teams Team MemberRelationshipSpecialtyStart DateEnd Date Louie Moy DO [address] [facility], [facility] [place] [address] PCP - GeneralFamily Mkmnaqny64/7/24documented as of this encounter
--- OUTSIDE RECORDS SUMMARY | 2025-05-30 16:01 | XMS_ITS | Encounter Summary ---
Author Organization [employer] [facility] tem Address [id number] [address] [place] [address] Care Team Providers Care Supervisor [employer] Name Role Phone RaghavendraLouie villa Primary Care Provider [phone] Reason for Visit * ReasonCommentsRespiratory Problem Encounter Details DateTypeDepartmentCare Team (Latest Contact Info)Fdvvlktoojj76/09/2025 4:01 PM EST - 05/30/2025 6:22 PM [facility] [address] [place] [phone] Cornell Arboleda MD [address] [place] [address] COPD exacerbation ([facility]) (Primary Dx) Discharge Disposition: Home Social History [...] a week 03/21/2025How often do you attend baptist or muslim services?Never03/21/2025Do you belong to any clubs or organizations such as baptist groups, unions, fraternal or athletic groups, or school groups?No03/21/2025How often do you attend meetings of the clubs or organizations you belong to?Never03/21/2025re you , , , , never , or living with a partner?Fltzltu7003/21/2025UDIT-CAnswerDate RecordedQ1: How often do you have a [...] care, and heating?Not hard at all05/28/2024HQ-2AnswerDate RecordedTotal Idrxu887 [place] [employer] - Occupational Stress Questionnaire AnswerDate RecordedDo you feel stress - tense, restless, nervous, or anxious, or unable to sleep at night because yourmind is troubled all the time - these days? 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 make it difficult for you to work [...] ValueDate RecordedSex Assigned at BirthNot on fileLegal GjeDbswsa93/06/2015 11:21 AM EDTGender IdentityNot on fileSexual OrientationNot on filedocumented as of this encounter Last Filed Vital Signs Vital SignReadingTime TakenCommentsBlood Eoyqevtj149/8305/30/2025 6:15 PM EST Zrllo890305/30/2025 6:15 PM SYPZukxdlfzbww40.3 ??C (97.3 ??F)05/30/2025 4:54 PM ESTRespiratory Egbw812507/31/2024 6:15 PM ESTOxygen Isaeciqqvk59%05/30/2025 6:15 PM ESTInhaled Oxygen Concentration--Hsdrgn548.9 kg (260 lb)05/30/2025 4:05 PM XZSUwuvyf255.3 cm (5' 9 )05/30/2025 4:05 PM ESTBody Mass Index38.412 4:05 PM ESTdocumented in this encounter Functional Status * Vital SignsQuestionAnswerDate of GwqpznaxwmFsvleuJD159/8305/30/2025 6:15 PM Heather Mendoza GPCgoex3425/09/2025 6:15 PM Heather Mendoza EHNugl58 05/30/2025 6:15 PM Heather Mendoza RNSpO29312 6:15 PM Heather Mendoza RNMAP (mmHg)9605/30/2025 6:15 PM Heather Mendoza RN * BEE (kcal)AnswerDate of YygftoizjhWulhpq679418/09/2025 4:05 PM Yesenia Christianson RN * CoughQuestionAnswerDate of AssessmentAuthorCoughNon-productive;Bronchospasm 05/30/2025 5:48 PM Padma Bradley, [employer] ARCHITECT * Vital SignsQuestionAnswerDate of AssessmentAuthorO2 Flow Rate (L/min)2 05/30/2025 5:48 PM Padma Bradley, RCPO2 DeviceNasal eohtqja4205/30/2025 5:48 PM Padma Bradley, RCPHeart Rate ZeebuzGokbbia55/09/2025 5:48 PM Padma Bradley, TYPFiO2 (%)28107/31/2024 5:48 PM Padma Bradley, [employer] ARCHITECT * Pain AssessmentQuestionAnswerDate of AssessmentAuthorPain LocationChest;Foot 05/30/2025 4:48 PM Heather Mendoza RNPain OrientationRight;Left05/30/2025 4:48 PM Heather Mendoza RNPain TypeAcute pain05/30/2025 4:48 PM Heather Flynn RNPain Assessment0-10107/31/2024 4:48 PM Heather Mendoza RNPain Ypkmk58307/31/2024 4:48 PM Heather Mendoza RN * Fall [...] RNScore0107/31/2024 4:47 PM Heather Mendoza RN * [place] Coma ScaleQuestionAnswerDate of AssessmentAuthorEye Xmnmgwi794/09/2025 4:05 PM Yesenia Christianson RNBest Motor Jtdulhxt335/09/2025 4:05 PM Yesenia Christianson RNBest Verbal Iislqisb915/09/2025 4:05 PM Yesenia Christianson RNGlasgow Coma Scale Njtia3417/09/2025 4:05 PM Yesenia Christianson RN * Patient ObservationQuestionAnswerDate of OepfdlfthzRqjxysQvarxw9116/09/2025 4:05 PM Yesenia Christianson RNWeight416005/30/2025 4:05 PM Yesenia Christianson RN * BSA (Calculated - sq m)AnswerDate of AssessmentAuthor2. 4:05 PM Yesenia Funez RN * BMI (Calculated)AnswerDate of KgxxdswtyjIajbnn33. 4:05 PM Yesenia Funez RN * Inhalation TherapyQuestionAnswerDate of AssessmentAuthorDelivery SourceAir 05/30/2025 5:48 PM Padma Bradley RCPDuration (Minutes)8107/31/2024 5:48 PM Padma Bradley RCPDeviceNebulizer05/30/2025 5:48 PM Padma Bradley RCP * Height and WeightQuestionAnswerDate of AssessmentAutParkview Healtht MethodStated 05/30/2025 4:05 PM Yesenia Christianson RN [...] Heather Flynn RN * Vital SignsQuestionAnswerDate of RxbkglawyhYyelxbKknc25.312 4:54 PM Heather Mendoza RNTemp sslHquc8905/30/2025 4:54 PM Heather Mendoza RN * RespiratoryQuestionAnswerDate of AssessmentAuthorCoughNon omfvkkwyis22/09/2025 4:49 PM Heather Mendoza RNCough XamjbjnVxq78/09/2025 4:49 PM Heather Mendoza RN * Adult [...] (WDL)WDL107/31/2024 4:05 PM Yesenia Christianson RN * Family/Scientific Artist NotifiedQuestionAnswerDate of AssessmentAuthor Family/Scientific Artist notified of Emergency Department Admission?Family ymsqrrb7105/30/2025 4:48 PM Heather Mendoza RN * Weight in (lb) to have BMI = 25AnswerDate of SxexgjelpxCedabt168.9107/31/2024 4:05 PM Yesenia Christianson RN * Respiratory AssessmentQuestionAnswerDate of AssessmentAuthorBilateral Breath AyykkaJppauwnzka09/09/2025 5:56 PM Padma Bradley RCPRespiratory Pattern Hpjuupj5305/30/2025 5:48 PM Padma Bradley RCPChest AssessmentChest expansion qebiysaelvb09/09/2025 5:48 PM Padma Bradley, TYPAssessment Type Post-rdcxaqwxr17/09/2025 5:56 PM Padma Bradley, TYPLevel of Consciousness Alert05/30/2025 5:48 PM Padma Bradley, [employer] ARCHITECT * [place] Suicide BehaviorQuestionAnswerDate of AssessmentAuthor6. Have you ever [...] Heather Mendoza RN * Respiratory (WDL)AnswerDate of JfmroqelrtAtmptvS12/09/2025 4:49 PM Heather Mendoza RN * TB ScreeningQuestionAnswerDate of AssessmentAuthorPatient has prolonged cough? No05/30/2025 4:48 PM Heather Mendoza RNPatient has bloody cough?No 05/30/2025 4:48 PM Heather Mendoza RNPatient has fever?No05/30/2025 4:48 PM Heather Mendoza RNPatient has night sweats?No05/30/2025 4:48 PM Heather Flynn RNPatient has weight loss?No05/30/2025 4:48 PM Heather Mendoza RNPatient has positive PPD?No05/30/2025 4:48 PM Heather Mendoza RN * [place] Suicide Risk LevelAnswerDate of AssessmentAuthorNot at Suicide Risk 05/30/2025 4:48 PM Heather Mendoza RN * Vital SignsQuestionAnswerDate of AsaqorvnrnBxcksgYH855/8305/30/2025 6:15 PM Heather Mendoza, TIEmnii0230/09/2025 6:15 PM Heather Mendoza YVExlw59 05/30/2025 6:15 PM Heather Mendoza, FACdK81677/09/2025 6:15 PM Heather Mendoza RNMAP (mmHg)9605/30/2025 6:15 PM Heather Mendoza RN * BEE (kcal)AnswerDate of FfuwmgphkcWpzyds544088/09/2025 4:05 PM Yesenia Christianson RN * Vital SignsQuestionAnswerDate of AssessmentAuthorHeart Rate SourceMonitor 05/30/2025 5:48 PM Padma Bradley RCP * Patient ObservationQuestionAnswerDate of GafepnugqwGkdnuyTslydi0666/09/2025 4:05 PM Yesenia Christianson RNWeight416005/30/2025 4:05 PM Yesenia Christianson RN * BSA (Calculated - sq m)AnswerDate of AssessmentAuthor2. 4:05 PM Yesenia Funez RN * BMI (Calculated)AnswerDate of EeczvooskqIjfpux28. 4:05 PM Yesenia Funez RN * Height and WeightQuestionAnswerDate of AssessmentAuthorHeight MethodStated 05/30/2025 4:05 PM Yesenia Christianson RN * Vital SignsQuestionAnswerDate of PdegzyroxcWjcxcqKqgq68. 4:54 PM Heather Mendoza RNTemp eyaJhgd7005/30/2025 4:54 PM Heather Mendoza RN * Weight in (lb) to have BMI = 25AnswerDate of ZagunqxhfyRgbgbn997.9107/31/2024 4:05 PM Yesenia Christianson RN documented as of this encounter Mental Status * Vital SignsQuestionAnswerEntry HnuaBpfhxuBK725/8312/02/2025 6:15 PM Heather Flynn ELAcokk3898/09/2025 6:15 PM Heather Mendoza, GGGaai54 05/30/2025 6:15 PM Heather Mendoza PYXjQ83946/09/2025 6:15 PM Heather Mendoza RNMAP (mmHg)9605/30/2025 6:15 PM Heather Mendoza RN * CoughQuestionAnswerEntry DateAuthorCoughNon-productive;Jvelktgtacdh81/09/2025 5:48 PM Padma Bradley, [employer] ARCHITECT * Vital SignsQuestionAnswerEntry DateAuthorO2 Flow Rate (L/min) 5:48 PM Padma Bradley, RCPO2 DeviceNasal qigusfl4805/30/2025 5:48 PM Padma Bradley, RCPHeart Rate PczrurAskkjlw51/09/2025 5:48 PM Padma Bradley, [employer] BI ARCHITECT FiO2 (%)28107/31/2024 5:48 PM aPdma Bradley, [employer] BI ARCHITECT * Pain AssessmentQuestionAnswerEntry DateAuthorPain LocationChest;Foot05/30/2025 4:48 PM Heather Mendoza RNPain OrientationRight;Left05/30/2025 4:48 PM Heather Mendoza RNPain Assessment0-10107/31/2024 4:48 PM Heather Mendoza RNPain Ylklx73907/31/2024 4:48 PM Heather Mendoza RN * [place] Coma ScaleQuestionAnswerEntry DateAuthorEye Tvhuojk477/09/2025 4:05 PM Yesenia Christianson RNBest Motor Xctbvfwb676/09/2025 4:05 PM Yesenia Christianson RN Best Verbal Hzvmnppf051/09/2025 4:05 PM Yesenia Christianson RNGlasgow Coma Scale Vuyzu3535/09/2025 4:05 PM Yesenia Christianson RN * Vital SignsQuestionAnswerEntry AwkkOctkvfFffr29.312 4:54 PM Heather Flynn RNTemp xddQvlf8105/30/2025 4:54 PM Heather Mendoza, RAFAEL * Respiratory AssessmentQuestionAnswerEntry DateAuthorBilateral Breath Sounds Ebhkubomvf30/09/2025 5:56 PM Padma Bradley, TYPRespiratory PatternRegular 05/30/2025 5:48 PM Padma Bradley, TYPChest AssessmentChest expansion bmyuvpcpehz16/09/2025 5:48 PM Padma Bradley, TYPLevel of ConsciousnessAlert 05/30/2025 5:48 PM Padma Bradley, [employer] ARCHITECT documented in this encounter Discharge Instructions * Attachments The following attachments cannot be sent through Care Everywhere. * COPD Exacerbation? Adult ED ([facility]) documented in this encounter Medications at Time of Discharge MedicationSigDispense QuantityRefillsLast FilledStart DateEnd Date acetaminophen (TYLENOL) 325 mg tablet Take 2 tablets (650 mg total) by mouth every 4 (four) hours as needed (Temperature greater than 38.3 C). 30 tablet 09/27/2021 albuterol (PROVENTIL HFA;VENTOLIN HFA) 90 mcg/actuation inhaler Indications:Acute exacerbation of chronic obstructive pulmonary disease (COPD) ([facility])Inhale 2 puffs 4 (four) times a day. 18 g 11012/28/2024 albuterol (PROVENTIL,VENTOLIN) 2.5 mg /3 mL (0.083 %) nebulizer solution Indications:Chronic respiratory failure with hypoxia ([facility])Inhale 3 mL (2.5 mg total) by nebulization every 6 (six) hours as needed for wheezing. 75 mL aspirin 81 mg chewable tablet Chew 1 tablet (81 mg total) and swallow in the morning. atorvastatin (LIPITOR) 40 mg tablet Take 0.5 tablets (20 mg total) by mouth in the morning.03/31/2025 baclofen (LIORESAL) 10 mg tablet 05/26/2024 rywafrsxye-cxowbdwx-bzoeyunflm (BREZTRI AEROSPHERE) 160-9-4.8 mcg/actuation HFA aerosol inhaler Indications:Chronic obstructive pulmonary disease, unspecified COPD type ([facility])Inhale 2 puffs in the morning and 2 [...] TO AFFECTED AREA 2-3 TIMES DAILY UNTIL UMJYXVNE60/19/2025 omeprazole (PriLOSEC) 20 mg capsule Take 1 [...] from the original note were not included. [facility] Pt Name: Jessica Garcia Birthdate: [...] at home and is established with a electrical maintenance engineer. History provided by: Patient and spouse endoscopy specialty technician used: No Past Medical History: Past Medical History: Diagnosis Date ??? Bronchitis ??? Chronic back pain See pain clinic ??? Chronic obstructive pulmonary disease ([facility]) 07/30/2023 ??? Class 2 severe obesity due to excess calories with serious comorbidity and body mass index (BMI) of 38.0 to 38.9 in adult 02/01/2024 ??? COPD (chronic obstructive pulmonary disease) ([facility]) ??? Depression ??? Eczema ??? GERD (gastroesophageal reflux disease) ??? Hypothyroidism ??? Mixed hyperlipidemia 02/17/2024 ??? Multinodular goiter ??? Other allergic rhinitis 12/28/2024 ??? Pneumonia ??? Pulmonary emboli ([facility]) ??? Status post epidural steroid injection 03/23/2025 ??? Teeth decayed ??? Type 2 diabetes mellitus without complication, without long-term current use of insulin ([facility]) 03/31/2025 Past Surgical History: Past Surgical History: [...] 0 min Stress: Stress Concern Present (03/21/2025) [place] [employer] - Occupational Stress Questionnaire ??? Feeling of Stress : To some extent Social Connections: Moderately Isolated (03/21/2025) Social Connection and Isolation Panel ??? Frequency of Communication with Friends and Family: More than three times a week ??? Frequency of Social Gatherings with Friends and Family: More than three times a week ??? Attends Mandaen Services: Never ??? Active Member of Clubs [...] Impressions as of 05/30/25 1720 COPD exacerbation ([facility]) . ED Disposition None . Please note that portions of this note were completed with a voice recognition program. Efforts were made to edit the dictations but occasionally words are mis-transcribed. Gorge Leal 05/30/25 1607 Gorge Leal 05/30/25 1714 Cornell Arboleda MD 05/30/251950 documented in this encounter Plan of Treatment DateTypeDepartmentCare Team (Latest Contact Info)Xiqwwpecsuj12/10/2026 10:00 AM EDTOffice Visit [facility] [address] [place] [phone] Louie Moy, [address], [facility] [address] 03/27/2026 11:00 AM EDTOffice Visit [facility] [address] [place] [phone] documented as of this encounter Goals GoalPatient Goal TypeAssociated ProblemsRecent ProgressPatient-Stated?Author home Kajal Mas LSW Note: Evaluation of progress towards goal: had stress test, await results documented as of this encounter Procedures Procedure NamePriorityDate/TimeAssociated DiagnosisCommentsECG 12-LEADSTAT 05/30/2025 4:52 PM EST SARS/FLU A+B/RSV BY NAAT/MOLECULAR (M4RT COLLECTION TUBE)STAT107/31/2024 4:46 PM EST PH, DTBYIOSVVY87/09/2025 4:38 PM EST TROPONIN I, HIGH SENSITIVITY 0 GQWZGOFN42/09/2025 4:21 PM EST TROPONIN I, HIGH SENSITIVITY 0 SQFMLHRE08/09/2025 4:21 PM EST LACTATE W/ DJLVRFEQXU54/09/2025 4:21 PM EST CBC WITH AUTO UXVXKOQQQXYQSXUL52/09/2025 4:21 PM EST WXZUVPZW28/02/2025 4:21 PM EST PROTIME & TNOMRGC6205/30/2025 4:21 PM EST D-FMGWQOAMK42/09/2025 4:21 PM EST B-TYPE NATRIURETIC EKZDCOESBGA38/09/2025 4:21 PM EST WCNUYLTLAJCAM10/09/2025 4:21 PM EST COMPREHENSIVE METABOLIC MJWRUMNGM93/09/2025 4:21 PM EST XR CHEST 1 QEJPYJ8705/30/2025 4:12 PM EST documented in this encounter [...] EST)ComponentValueRef RangeTest MethodAnalysis TimePerformed AtPathologist SignatureFLU A XOHWzoslkaaEenoqerg45/09/2025 5:35 PM ESTPROMEDISUTTER ROSEVILLE MEDICAL CENTERFLU B MQAForybefvCbuxzusk96/09/2025 5:35 PM ESTPROMEDISUTTER ROSEVILLE MEDICAL CENTERRSV BY QZKRnajvrapJawhwasq47/09/2025 5:35 PM EST [facility] COV 2 BY PCRNot DetectedNot Detected 05/30/2025 5:35 PM ESTPROMARSHALL MEDICAL CENTERpecimen (Source) Anatomical Location / LateralityCollection Method / VolumeCollection Time Received TimeSwabNasopharyngeal structure / Zjjehsb9405/30/2025 4:46 PM EST 05/30/2025 4:57 PM EST Narrative [facility] - 05/30/2025 5:35 PM EST The [...] operators who are performing tests using either Geoforce or Wikisway systems and is limited to laboratories that [...] ResultPerforming OrganizationAddressCity/State/ZIP Code Phone Number [facility] [address] [facility] [place] [address], * pH Venous (05/30/2025 4:38 PM EST)ComponentValueRef RangeTest MethodAnalysis TimePerformed AtPathologist SignaturepH, Venous7.3537.320 - 7.1329905/30/2025 4:46 PM ESTPROMARSHALL MEDICAL CENTERpecimen (Source)Anatomical Location / LateralityCollection Method / VolumeCollection TimeReceived Time venousVenous blood / Tnrlolc9405/30/2025 4:38 PM EST05/30/2025 4:46 PM EST Narrative Authorizing ProviderResult TypeResult StatusCornell HYLTON BLOOD ORDERABLES Final ResultPerforming OrganizationAddressCity/State/ZIP CodePhone Number [address] [address], [place] * Troponin I, High Sensitivity 0 Hour (05/30/2025 4:21 PM EST)ComponentValueRef RangeTest MethodAnalysis TimePerformed AtPathologist SignatureTROPONIN I, HIGH SENSITIVITY3<16 ng/L107/31/2024 5:02 PM ESTCLEVELAND CLINIC [facility] Specimen (Source)Anatomical Location / LateralityCollection Method / Volume Collection TimeReceived TimeBloodVenous blood / UnknownVenipuncture / Unknown 05/30/2025 4:21 PM EST05/30/2025 4:26 PM EST Narrative Authorizing ProviderResult TypeResult StatusCornell HYLTON BLOOD ORDERABLES Final ResultPerforming OrganizationAddressCity/State/ZIP CodePhone Number [address] [address], [place] * Lactate w/ Reflex (05/30/2025 4:21 PM EST)ComponentValueRef RangeTest Method Analysis TimePerformed AtPathologist SignatureLACTATE W/REFLEX1.10.4 - 2.0 mmol/L107/31/2024 4:45 PM ESTPROMARSHALL MEDICAL CENTERpecimen (Source)Anatomical Location / LateralityCollection Method / VolumeCollection TimeReceived TimeBloodVenous blood / UnknownVenipuncture / Qzytoyh2305/30/2025 4:21 PM EST05/30/2025 4:26 PM EST Narrative [facility] - 05/30/2025 4:45 PM EST Result did not trigger repeat Lactate, re-order if needed. Authorizing ProviderResult TypeResult StatusCornell HYLTON BLOOD ORDERABLES Final ResultPerforming OrganizationAddressCity/State/ZIP CodePhone Number [address] [place] [address], * Magnesium (05/30/2025 4:21 PM EST)ComponentValueRef RangeTest MethodAnalysis TimePerformed AtPathologist SignatureMAGNESIUM1.81.8 - 2.6 mg/dL05/30/2025 4:53 PM [facility]pec[facility] (Source)Anatomical Location / LateralityCollection Method / VolumeCollection TimeReceived Time BloodVenous blood / UnknownVenipuncture / Jvntdmn5705/30/2025 4:21 PM EST 05/30/2025 4:26 PM EST Narrative Authorizing ProviderResult TypeResult StatusCornell Arboleda MDLAB BLOOD ORDERABLES Final ResultPerforming OrganizationAddressCity/State/ZIP CodePhone Number [address] [place] [address], [place] * D-Dimer (05/30/2025 4:21 PM EST)ComponentValueRef RangeTest MethodAnalysis TimePerformed AtPathologist SignatureD DIMER<1501 - 255 ng/mL05/30/2025 4:[address] [facility]ITALComment:Results <255 ng/mL DDU: The presensence of a VTE can safely be excluded with a negative D-Dimer result and Wells score. A negative result doesn't exclude the possibility of DIC. The test should berepeated along with other diagnostic tests if the patient's symptoms persist or worsen.Specimen (Source)Anatomical Location / Laterality Collection Method / VolumeCollection TimeReceived TimeBloodVenous blood / UnknownVenipuncture / Naclswr1505/30/2025 4:21 PM EST05/30/2025 4:26 PM EST Narrative Authorizing ProviderResult TypeResult StatusCornell Arboleda MDLAB BLOOD ORDERABLES Final ResultPerforming OrganizationAddressty/State/ZIP CodePhone Number [address] [place] [address], * (ABNORMAL) B-type natriuretic peptide (05/30/2025 4:21 PM EST)ComponentValue Ref RangeTest MethodAnalysis TimePerformed AtPathologist DqsawryxsBUA049(H) <=100 pg/mL05/30/2025 5:07 PM ESTMARTINS FERRY HOSPITALpecimen (Source)Anatomical Location / LateralityCollection Method / VolumeCollection TimeReceived TimeBloodVenous blood / UnknownVenipuncture / Yxddfnp1805/30/2025 4:21 PM EST05/30/2025 4:26 PM EST Narrative Authorizing ProviderResult TypeResult StatusCornell HYLTON BLOOD ORDERABLES Final ResultPerforming OrganizationAddressCity/State/ZIP CodePhone Number [facility] [address] [place] [address], * (ABNORMAL) Comprehensive metabolic panel (05/30/2025 4:21 PM EST)Component ValueRef RangeTest MethodAnalysis TimePerformed AtPathologist SignatureSODIUM 129398 - 146 mmol/L107/31/2024 4:[address] [facility] POTASSIUM3.93.5 - 5.0 mmol/L107/31/2024 4:[address] [facility] HOSPITALCHLORIDE10098 - 109 mmol/L107/31/2024 4:[address] [facility] HOSPITALCARBON QRJSKJV31(H)22 - 32 mmol/L107/31/2024 4:53 PM EST [facility]ITALANION GAP85 - 15 mmol/L107/31/2024 4:[address] [facility] HOSPITALBLOOD UREA KSABQZEZ11(H)5 - 27 mg/dL 05/30/2025 4:[address] [facility] HOSPITALCREATININE0.970.40 - 1.00 mg/dL05/30/2025 4:[address] [facility]OS[facility]ITALComment: METHOD TRACEABLE TO IDMS GUZRDKRCORXXFHB225(H)65 - 99 mg/dL05/30/2025 4:[address] [facility] HOSPITALCALCIUM8.1(L)8.5 - 10.5 mg/dL05/30/2025 4:[address] [facility] HOSPITALTOTAL PROTEIN6.96.0 - 8.0 g/dL 05/30/2025 4:[address] [facility] HOSPITALALBUMIN3.33.2 - 5.3 g/dL05/30/2025 4:[address] [facility] HOSPITALALKALINE XVLPSPRZJJB9857 - 130 U/L107/31/2024 4:[address] [facility]ITALAST11<=41 U/L107/31/2024 4:[address] [facility] ALT12<=31 U/L107/31/2024 4:[address] [facility] BILIRUBIN,TOTAL0.40.3 - 1.2 mg/dL05/30/2025 4:[address] AN[facility] HOSPITALEGFR Non-Race Dpcojmgmk97>=60 ml/min/1.73sq.m107/31/2024 4:[address] [facility]OSPITALComment: eGFR not reported due to non-numeric value for Creatinine. Reported eGFR is based on the CKD-EPI 2020 equation that does not use a race coefficient. Specimen (Source)Anatomical Location / LateralityCollection Method / Volume Collection TimeReceived TimeBloodVenous blood / UnknownVenipuncture / Unknown 05/30/2025 4:21 PM EST05/30/2025 4:26 PM EST Narrative Authorizing ProviderResult TypeResult StatusCornell HYLTON BLOOD ORDERABLES Final ResultPerforming OrganizationAddressCity/State/ZIP CodePhone Number [address] [place] [address], * (ABNORMAL) APTT (05/30/2025 4:21 PM EST)ComponentValueRef RangeTest Method Analysis TimePerformed AtPathologist JagvcpaxfUIEC33(L)26 - 37 sec05/30/2025 4:49 PM [facility]ITALpecimen (Source)Anatomical Location / LateralityCollection Method / VolumeCollection TimeReceived Time BloodVenous blood / UnknownVenipuncture / Qbvqvbi1505/30/2025 4:21 PM EST 05/30/2025 4:26 PM EST Narrative Authorizing ProviderResult TypeResult StatusCornell HYLTON BLOOD ORDERABLES Final ResultPerforming OrganizationAddressCity/State/ZIP CodePhone Number [address] [place] [address], [place] * Protime & INR (05/30/2025 4:21 PM EST)ComponentValueRef RangeTest Method Analysis TimePerformed AtPathologist UpzrwuvwyFRJRJAU68.89.8 - 13.2 sec 05/30/2025 4:49 PM ESTCLEVELAND CLINIC HILLCREST HOSPITALINR1.00.9 - 1.2 05/30/2025 4:49 PM [facility]ITALpecimen (Source) Anatomical Location / LateralityCollection Method / VolumeCollection Time Received TimeBloodVenous blood / UnknownVenipuncture / Haykbzg4805/30/2025 4:21 PM EST05/30/2025 4:26 PM EST Narrative Authorizing ProviderResult TypeResult StatusParalf Arboleda MDLAB BLOOD ORDERABLES Final ResultPerforming OrganizationAddressCity/State/ZIP CodePhone Number [address] [place] [address], [place] * (ABNORMAL) CBC auto differential (05/30/2025 4:21 PM EST)ComponentValueRef RangeTest MethodAnalysis TimePerformed AtPathologist ImmjdubfhVVX01.1(H)4 - 11 10^9/L107/31/2024 4:[address] AN[facility] HOSPITALRBC Count4.56 3.8 - 5.2 10^12/L107/31/2024 4:[address] [facility] Cwfofoegrh96.211.7 - 15.5 g/dL05/30/2025 4:36 PM ESTCLEVELAND CLINIC HILLCREST HOSPITALHematocrit41.935 - 47 %05/30/2025 4:[address] [facility] HOSPITALMCV9280 - 100 fL05/30/2025 4:[address] [facility]OSPITALMCH31.027 - 34 pg05/30/2025 4:[address] [facility] HOSPITALMCHC33.832 - 36 g/dL05/30/2025 4:[address] AN[facility] HOSPITALRDW13.811.5 - 15 %05/30/2025 4:36 PM ESTCLEVELAND CLINIC HILLCREST HOSPITALPlatelet Noafv834147 - 450 10^L107/31/2024 4:36 PM EST [facility]ITALMPV7.37 - 12 fL05/30/2025 4:36 PM EST [facility]OSPITALNeutrophils %61.3%05/30/2025 4:36 PM EST [facility] HOSPITALLymphocytes %29.0%05/30/2025 4:36 PM EST [facility] %8.0%05/30/2025 4:36 PM EST [facility] %0.6%05/30/2025 4:36 PM EST [facility]ophils %1.1%05/30/2025 4:36 PM EST [facility]ITALNeutrophils Absolute (A)8.0(H)1.5 - 6.6 10^05/30/2025 4:36 PM ESTC[facility]ITALLymphocytes Absolute3.8(H)1.0 - 3.5 10^05/30/2025 4:36 PM ESTK[facility]ITALMonocytes Absolute1.1(H)0.0 - 0.9 10^L107/31/2024 4:36 PM EST [facility]osin[facility] Absolute0.10.0 - 0.4 10^9/L 05/30/2025 4:36 PM ESTC[facility]ITALBasophils Absolute0.1 0.0 - 0.2 10^9/L107/31/2024 4:[address] [facility] Differential TypeAUTOMATED MBZTJEVSLFNM24/09/2025 4:36 PM [facility] (Source)Anatomical Location / LateralityCollection Method / VolumeCollection TimeReceived TimeBloodVenous blood / Unknown Venipuncture / Xfdjtgg9705/30/2025 4:21 PM EST05/30/2025 4:26 PM EST Narrative Authorizing ProviderResult TypeResult StatusPaul R Walker MDLAB BLOOD ORDERABLES Final ResultPerforming OrganizationAddressCity/State/ZIP CodePhone Number [facility] [address] [place] [address], * X-ray chest 1 view (05/30/2025 4:12 [...] this encounter Visit Diagnoses Diagnosis COPD exacerbation ([facility])- Primary Obstructive chronic bronchitis with exacerbation documented [...] follow-up plan has been documented for the vwumllh7903/31/2024 4:52 PM EDTdocumented as of this encounter Care Teams Team MemberRelationshipSpecialtyStart DateEnd Date Louie Moy DO [address] [facility], [facility] [address] PCP - GeneralFamily Uzpchxrl50/7/24documented as of this encounter
--- OUTSIDE RECORDS SUMMARY | 2025-06-07 12:36 | XMS_ITS | Clinical Summary ---
Author Organization [facility] Address [address], [address] [place] [address] Care Team Providers Care Cook Taco Name Role Phone Unavailable Primary Care Provider Unavailabl e Allergies Active AllergyReactionsCriticalityNoted DateCommentsDiltiazemItching,Swelling, EgylUiuyxz84/22/2020 Pt NOT allergic Medications MedicationSigDispense QuantityRefillsLast FilledStart DateEnd DateStatus Multiple Vitamins-Minerals (THERAPEUTIC MULTIVITAMIN-MINERALS) tablet Take 1 tablet by mouth dailyActive diclofenac sodium (VOLTAREN) 1 % GEL Indications:Osteoarthritis of right acromioclavicular jointAPPLY 2 G TOPICALLY 4 TIMES DAILY 300 g 04/10/2020Active tiotropium (SPIRIVA RESPIMAT) 2.5 MCG/ACT AERS inhaler Inhale 2 puffs into the lungs daily 1 Inhaler Active Handicap Placard MISC by Does not apply route 1 each 08/08/2020ctive levalbuterol (XOPENEX) 1.25 MG/3ML nebulizer solution Take 3 mLs by nebulization every 4 hours as needed for Wheezing 90 mL ctive gabapentin (NEURONTIN) 300 MG capsule Take 1 capsule by mouth 3 times daily for 90 days. 90 capsule ctive DULoxetine (CYMBALTA) 20 MG extended release capsule TAKE 1 CAPSULE BY MOUTH EVERY DAY AT NIGHT 90 capsule 11/09/2020ctive levothyroxine (SYNTHROID) 125 MCG tablet TAKE 1 TABLET BY MOUTH EVERY DAY 30 tablet 209/23/2021Active apixaban (ELIQUIS) 5 MG TABS tablet Take 1 tablet by mouth 2 times daily APPT NEEDED FOR ADDITIONAL REFILL/90DAYS 60 tablet 07/22/2021ctive dilTIAZem (CARDIZEM CD) 120 MG extended release capsule Take 1 capsule by mouth daily APPT NEEDED FOR ADDITIONAL REFILLS/90DAYS 30 capsule 07/22/2021ctive Active Problems ProblemNoted DateDiagnosed DateChronic respiratory failure with hypoxia 10/07/2019COPD nedxctukpwbs57/16/2020Acute exacerbation of chronic obstructive pulmonary disease (COPD)08/28/2019Tachycardia with heart rate 100-120 beats per scnaws3708/26/2019COPD with acute nlrwlhqnusgi25/14/2020Carpal tunnel syndrome, unspecified upper limb02/01/2019Trigger lhkrap0102/01/2019Postoperative hpdlitkuuntpbh26/13/2019 Resolved Problems ProblemNoted DateDiagnosed DateResolved DateInfluenza A03 Immunizations ImmunizationAdministration DatesNext DueInfluenza, FLUARIX, FLULAVAL, FLUZONE (age 6 mo+) and AFLURIA, (age 3 y+), Quadv PF, 0.5mL08/10/2019(),08/09/2019(), 08/08/2019(Deferred: - Patient refused flu vaccine. Would not like the vaccine at all.)Pneumococcal, PPSV23, PNEUMOVAX 23, (age 2y+), SC/IM, 0.5mL08/08/2019 Family History Medical HistoryRelationNameCommentsOtherChild 1Heart AttackChild 2OtherFather CancerMotherMult SclerosisSisterStrokeSisterThyroid DiseaseSisterRelationName StatusCommentsChild 1AliveBLOOD CLOTSChild 2AliveFatherPACEMAKERMotherCERVICAL CANCERSister Social History Tobacco UseTypesPacks/DayYears UsedDateSmoking Tobacco: LnfzkdScoeikqtvk797 07/1979 - 07/2019Smokeless Tobacco: Never Tobacco Cessation:Ready to Q uit: Yes; Counseling Given: Yes Alcohol UseStandard Drinks/WeekCommentsYes1 (1 standard drink = 0.6 oz pure alcohol)OCCASIONALLYPHQ-2AnswerDate RecordedPHQ-9 Total Mhhxc0281 CommentsNoSex and Gender InformationValueDate RecordedSex Assigned at BirthNot on fileLegal BvyOgaocp16/06/2019 10:31 AM EDTGender IdentityNot on fileSexual OrientationNot on file Last Filed Vital Signs Vital SignReadingTime TakenCommentsBlood Tmmmwgts832/5806 12:30 PM EDT Vewiq4384 12:30 PM SZIWsfkwkyvaeq70.3 ??C (97.3 ??F)11/22/2020 12:09 PM EDTRespiratory Kzjw577011/22/2020 12:40 PM EDTOxygen Wqftslzpkc135%11/22/2020 12:40 PM EDTInhaled Oxygen Concentration--Qowupt405.3 kg (230 lb)11/22/2020 12:09 PM RVWKidrwx787.3 cm (5' 9 )11/22/2020 12:09 PM EDTBody Mass Index33.97 11/22/2020 12:09 PM EDT Plan of Treatment Not on file Insurance Advance Directives * Full Code (Latest Code Status on File) Date ActivatedDate InactivatedComments10/05/2019 2:43 PM10/08/2019 2:49 PM * Full Code Date ActivatedDate InactivatedComments08/27/2019 11:11 AM08/29/2019 9:40 PM * Full Code Date ActivatedDate InactivatedComments08/25/2019 6:05 PM08/27/2019 11:11 AM * Full Code Date ActivatedDate InactivatedComments08/25/2019 5:50 PM08/25/2019 6:05 PM * Full Code Date ActivatedDate InactivatedComments08/05/2019 4:58 08/10/2019 8:24 PM
--- OUTSIDE RECORDS SUMMARY | 2025-06-07 12:37 | XMS_ITS | Clinical Summary ---
Author Organization [facility] Address [address] [place] [address] Phone Care Team Providers Care Disc Pad Grinding Machine Feeder Name Role Phone Louie Moy Primary Care Provider [phone] Allergies No known active allergies Medications MedicationSigDispense QuantityRefillsLast FilledStart DateEnd DateStatus atorvastatin (Lipitor) 40 mg tablet take 1 tablet by mouth in the morning for 30 days5Active albuterol 90 mcg/actuation inhaler Inhale 2 puffs 4 times a day.5Active dilTIAZem CD (Cardizem CD) 120 mg 24 hr capsule TAKE 1 CAPSULE (120 MG TOAL) BY MOUTH IN THE WONEAYW91/30/2024Active aspirin 81 mg chewable tablet Chew and swallow 1 tablet (81 mg) once daily.Active omeprazole (PriLOSEC) [address] capsule Take 1 capsule (20 mg) by mouth every other day.Active DULoxetine (Cymbalta) [address] capsule Take 1 capsule (20 mg) by mouth once daily at bedtime.5Active baclofen (Lioresal) 10 mg tablet 1 tablet (10 mg).05/26/2024ctive levothyroxine (Synthroid, Levoxyl) 125 mcg tablet Take 1 tablet (125 mcg) by mouth once daily.02/25/2024ctive nicotine (Nicoderm CQ) 21 mg/24 hr patch APPLY 1 PATCH EVERY DAY5Active liothyronine (Cytomel) 5 mcg tablet Take 1 tablet (5 mcg) by mouth once daily.12/23/2023ctive saccharomyces boulardii (Florastor) 250 mg capsule Take 1 capsule (250 mg) by mouth 2 times a day.Active cholecalciferol (Vitamin D-3) 25 mcg (1,000 units) capsule Take 1 capsule (25 mcg) by mouth once daily.Active phytonadione (Vitamin K) 5 mg tablet Take 1 tablet (5 mg) by mouth 1 time.Active metoprolol succinate XL (Toprol-XL) 25 mg 24 hr tablet Indications:Paroxysmal atrial fibrillation (Multi)Take 0.5 tablets (12.5 mg) by mouth once daily. 45 tablet //ctive Active Problems ProblemNoted DateDiagnosed DateEncounter to establish care02/17/2025MI 38.0-38.9,adult02/17/20258231Komvgzjdz27/29/2025hronic cough02/17/2025 Wfgqppxdqfmxjoo66/29/2025hest vhnyxsrhak79/29/6879Rwpfyqsjsmg44/06/2025 Exertional xmbrvni0712/28/2024Mixed obstructive and restrictive ventilatory defect 12/28/2024Peripheral hutbtxjbnrox19/09/2025Mixed hatjsahlosiknb21/28/2024 Paroxysmal atrial ckfazwvevyka98/12/2024Pedal edema4COPD, moderate 4Cigarette nicotine dependence without gilikimyqilq85/13/2023hronic respiratory failure with zheppko9510/07/2019Tachycardia with heart rate 100-120 beats per dyeqto5708/26/2019Postoperative ngbenruhkbxzhi15/13/2019 Encounters DateTypeDepartmentCare VhxwIenexylletf83/29/2025 4:15 PM EDTAncillary Procedure [address] [id number] COPD, moderate (Multi); Chronic cough; Cigarette nicotine dependence without uzugcozqhujp09/29/2025Travelfrom Last 3 Months Immunizations ImmunizationAdministration DatesNext DuePneumococcal polysaccharide vaccine, 23- valent, age 2 years and older (PNEUMOVAX 23)08/08/2019 Family History Medical HistoryRelationNameCommentspacemakerFatherOsteoporosisMotherMultiple sclerosisSisterRelationNameStatusCommentsFatherDeceasedMotherDeceasedSister Social History Tobacco UseTypesPacks/DayYears UsedDateSmoking Tobacco: Some DaysCigarettes Smokeless Tobacco: Never Tobacco Cessation:Ready to Q uit: Yes; Counseling Given: Yes Alcohol UseStandard Drinks/WeekCommentsYes0 (1 standard drink = 0.6 oz pure alcohol)once in blue moonCommentsUnknownSex and Gender InformationValue Date RecordedSex Assigned at BirthNot on fileLegal JgzIimtbo35/07/2025 2:50 PM EDTGender IdentityNot on fileSexual OrientationNot on file Last Filed Vital Signs Vital SignReadingTime TakenCommentsBlood Nwjcgrfc251/64002/17/2025 11:37 AM EDT Uxrfj81773/29/2025 11:37 AM EDTTemperature--Respiratory Rate--Oxygen Saturation- -Inhaled Oxygen Concentration--Tlrukt922 kg (261 lb)02/17/2025 11:35 AM EDT Zafsot992.3 cm (5' 9 )02/17/2025 11:35 AM EDTBody Mass Index38.54002/17/2025 11:35 AM EDT Plan of Treatment DateTypeDepartmentCare Team (Latest Contact Info)Ritscsvtpsl06/22/2025 12:30 PM ESTOffice Visit at [facility] [address] [place] [address] Marisol Jay MD [address] [facility] [address] [place], [place] [id number] Health MaintenanceDue DateLast DoneCommentsCT Aydliqgamuzu1959Colonoscopy 1959FIT1959Lipid Panel1959Medicare Annual Wellness Visit (AWV) 1960 1237Bqzxshklwdvzz1959TSH Level1959MMR Vaccines (1 of 1 - Standard series)1960Hepatitis C Xgefofcoo62/14/1977DTaP/Tdap/Td Vaccines (1 - Tdap)03/05/19811040Xukvmiaxc38/14/1999RSV High Risk: (Elderly (60+) or Population) (1 - Risk 50-74 years 1-dose series)2009Zoster Vaccines (1 of 2)2009Pneumococcal Vaccine (2 of 2 - PCV)/Diabetes Tlpafewyx28Diabetes: Hemoglobin A1C04/16//Bone Density Scan2024Influenza Vaccine (#1)5COVID-19 Vaccine (1 - season)2025olorectal Cancer Hgxobzerf98/06/2027FIT-DNA (Cologuard)HIB VaccinesAged OutNo longer eligible based on patient's age to complete this topicHPV VaccinesAged OutNo longer eligible based on patient's age to complete this topicHepatitis A VaccinesAged OutNo longer eligible based on patient's age to complete this topicHepatitis B VaccinesAged OutNo longer eligible based on patient's age to complete this topicIPV Vaccines Aged OutNo longer eligible based on patient's age to complete this topic Meningococcal VaccineAged OutNo longer eligible based on patient's age to complete this topicRotavirus VaccinesAged OutNo longer eligible based on patient's age to complete this topic Procedures Procedure NamePriorityDate/TimeAssociated DiagnosisCommentsCT CARDIAC SCORING WO IV NSALRHGGQnhbsko96/29/2025 4:13 PM EDT COPD, moderate (Multi) Chronic cough Cigarette nicotine dependence without complication from Last 3 Months Results * CT cardiac scoring wo IV contrast (03/20/2025 4:13 PM EDT)Anatomical Region LateralityModalityThoracic, ChestComputed TomographySpecimen (Source) Anatomical Location / LateralityCollection Method / VolumeCollection Time Received Time03/22/2025 6:12 AM EDT1 6:12 AM EDT Impressions 03/22/2025 6:11 AM EDT 1. Coronary artery calcium score of 0*. 2. Nonspecific lower lobe predominant ground-glass opacities are seen. ?? *Coronary artery calcium scoring may be helpful in predicting the risk for future coronary heart disease events. ??According to the [place] [employer] Clinical Expert Consensus Task Force, such testing provides important prognostic information in patients with more than one coronary heart disease risk factor. The coronary artery calcium score correlates with the annual risk of a non-fatal myocardial infarction or coronary heart disease . ?? Coronary artery score ?Annual Risk ?? 0-99 ? 0.4% 100-399 ?1.3% >400 2.4% ?? These three breakpoints correspond to lower, intermediate and high risk states for future coronary events. ??Such information should be used, along with appropriate clinical judgment, to make decisions regarding the intensity of risk factor management strategies to treat blood lipids and to modify other non-lipid coronary risk factors. ?? Reference: Coldspring P et al. Circulation. ??2007; 115:402-426 ?? MACRO: None ?? Signed by: Talia Patel 03/22/2025 6:11 AM Dictation workstation: ?? [id number] Narrative 03/22/2025 6:11 AM EDT Interpreted By: Talia Patel, STUDY: CT CARDIAC SCORING WO IV CONTRAST; ??03/20/2025 4:13 pm ?? INDICATION: Signs/Symptoms:hyperlipidemia, chest pain. ?? ,J44.9 Chronic obstructive pulmonary disease, unspecified (Multi),R05.3 Chronic cough,F17.210 Nicotine dependence, cigarettes, uncomplicated ?? COMPARISON: None. ?? ACCESSION NUMBER(S): [id number] ?? ORDERING CLINICIAN: MARISOL JAY ?? TECHNIQUE: Using prospective ECG gating, CT scan of the coronary arteries was performed without intravenous contrast. Coronary calcium scoring ??was performed according to the method of Agatston. ?? FINDINGS: The score and distribution of calcium in the coronary arteries is as follows: ?? LM ? 0 LAD ? 0 LCx ?0 RCA ? 0 ?? Total ? 0 ?? The visualized mid/lower ascending thoracic aorta measures 3.3 cm in diameter. The heart is normal in size. No pericardial effusion is present. ?? No gross evidence of mediastinal or hilar lymphadenopathy or masses is identified. Nonspecific lower lobe predominant ground-glass opacities are seen. No significant abnormality of the visualized subdiaphragmatic structures. ?? Procedure Note Talia Patel MD, MS - 03/22/2025 Interpreted By: Talia Patel, STUDY: CT CARDIAC SCORING WO IV CONTRAST; 03/20/2025 4:13 pm INDICATION: Signs/Symptoms:hyperlipidemia, chest pain. ,J44.9 Chronic obstructive pulmonary disease, unspecified (Multi),R05.3 Chronic cough,F17.210 Nicotine dependence, cigarettes, uncomplicated COMPARISON: None. ACCESSION NUMBER(S): [id number] ORDERING CLINICIAN: MARISOL JAY TECHNIQUE: Using prospective ECG gating, CT scan of the coronary arteries was performed without intravenous contrast. Coronary calcium scoring was performed according to the method of Agatston. FINDINGS: The score and distribution of calcium in the coronary arteries is as follows: LM 0 LAD 0 LCx 0 RCA 0 Total 0 The visualized mid/lower ascending thoracic aorta measures 3.3 cm in diameter. The heart is normal in size. No pericardial effusion is present. No gross evidence of mediastinal or hilar lymphadenopathy or masses is identified. Nonspecific lower lobe predominant ground-glass opacities are seen. No significant abnormality of the visualized subdiaphragmatic structures. IMPRESSION: 1. Coronary artery calcium score of 0*. 2. Nonspecific lower lobe predominant ground-glass opacities are seen. *Coronary artery calcium scoring may be helpful in predicting the risk for future coronary heart disease events. According to the [place] [employer] Clinical Expert Consensus Task Force, such testing provides important prognostic information in patients with more than one coronary heart disease risk factor. The coronary artery calcium score correlates with the annual risk of a non-fatal myocardial infarction or coronary heart disease . Coronary artery score Annual Risk 0-99 0.4% 100-399 1.3% >400 2.4% These three breakpoints correspond to lower, intermediate and high risk states for future coronary events. Such information should be used, along with appropriate clinical judgment, to make decisions regarding the intensity of risk factor management strategies to treat blood lipids and to modify other non-lipid coronary risk factors. Reference: Coldspring P et al. Circulation. 2007; 115:402-426 MACRO: None Signed by: Talia Patel 03/22/2025 6:11 AM Dictation workstation: AlertaPhone Authorizing ProviderResult TypeResult StatusGetony Jay MDIMG CT PROCEDURES Final Result from Last 3 Months Insurance * Guarantor: Elisabet Garcia TypeRelation to PatientDate of BirthPhone Billing AddressPersonal/XsgzlpDsrk1960 [address] [phone] * Guarantor: Elisabet Garcia TypeRelation to PatientDate of BirthPhone Billing AddressPersonal/MynmuyAelu1960 [address] [phone] Care Teams Team MemberRelationshipSpecialtyStart DateEnd Date Louie Moy DO [address] [facility], [place] [address] PCP - GeneralFamily Medicine03/20/25
--- OUTSIDE RECORDS SUMMARY | 2025-06-07 12:37 | XMS_ITS | Clinical Summary ---
Author Organization [facility] Address [address] [place] [address] Care Team Providers Care Teacher Resource Name Role Phone Unavailable Primary Care Provider Unavailabl e Social History Tobacco UseTypesPacks/DayYears UsedDateSmoking Tobacco: Never Assessed CommentsUnknownSex and Gender InformationValueDate RecordedSex Assigned at Not on fileLegal VlqPreguk88/15/2023 8:00 PM EDTGender IdentityNot on fileSexual OrientationNot on file Last Filed Vital Signs Vital SignReadingTime TakenCommentsBlood Opleelsj297/8504 12:00 PM EDT Pulse--Temperature--Respiratory Rate--Oxygen Saturation--Inhaled Oxygen Concentration--Kceaez026 kg (244 lb)02/07/2022 12:00 PM JXUTbfveq980.3 cm (5' 9 )02/07/2022 12:00 PM EDTBody Mass Index36.0308 12:00 PM EDT Plan of Treatment Not on file Insurance
--- OUTSIDE RECORDS SUMMARY | 2025-06-07 12:37 | XMS_ITS | Clinical Summary ---
Author Organization [facility] Address [address] [place] [address] Care Team Providers Care Enroller Name Role Phone No, Pcp HARDBOARD PRESS OPERATOR Primary Care Provider Unavailabl e Social History Tobacco UseTypesPacks/DayYears UsedDateSmoking Tobacco: Never Assessed CommentsUnknownSex and Gender InformationValueDate RecordedSex Assigned at Not on fileLegal DrlGrjsbf68/07/2020 2:37 PM ESTGender IdentityNot on fileSexual OrientationNot on file Plan of Treatment Not on file Medical Devices Not on file Care Teams Team MemberRelationshipSpecialtyStart DateEnd Date No, Pcp, HARDBOARD PRESS OPERATOR N/A Do not use PCP - GeneralFamily Pcftrvwr84/8/20
--- OUTSIDE RECORDS SUMMARY | 2025-06-07 12:37 | XMS_ITS | Patient Health Record ---
Author Organization [facility] [place] Address [address] [place] [address] Care Team Providers Care Cooker Tender Name Role Phone Raji CARDENAS, Madhu Primary Care Provider Jessica vailable Allergies Allergen (clinical drug ingredient) Drug/Non Drug Allergy documented on EMR Reaction Allergy Type Onset Date Status diltiazem Diltiazem HCl EDEMA Drug Allergy Active Reason For Referral No Information Medications Medication SIG (Take, Route, Frequency, Duration) Notes Start Date End Date Status DULoxetine HCl 20 MG 1 capsule Orally Twice a da y; Duration: 30 day(s) UnknownTussionex Pennkinetic ER 10-8 MG/5ML5 ml as needed Orally every 12 hrs prn; Duration: 30 days09/16/2019ActiveAlbuterol Sulfate (2.5 MG/3ML) 0.083%3 ml as needed Inhalation every 8 hrs08/23/2019UnknownGabapentin 100 MGTAKE 1 CAPSULE BY MOUTH EVERY 8 HOURS; Duration: 30ActiveNeurontin 100 MG1 capsule Orally every 8 hrs; Duration: 30 day(s)11/03/2019ActiveVentolin HFA 108 (90 Base) MCG/ACT1 puff as needed Inhalation every 4 hrs; Duration: 30 daysJ44.9008/23/2019Unknown Spiriva Respimat 1.25 MCG/ACT2 puffs Inhalation Once a day; Duration: 30 days 08/23/2019UnknownSymbicort 160-4.5 MCG/ACT2 puffs Inhalation Twice a dayUnknown Eliquis 5 MGas directed OrallyUnknownLevothyroxine Sodium 125 MCG1 tablet in the morning on an empty stomach Orally Once a day; Duration: 30 day(s)Unknown Social History Tobacco Use: Social History Observation Description Date Details (start date - stop date) Former Smoker NA - 07/23/2019 Tobacco Use/Smoking Question Answer Notes Patient is a former smoker When did you stop smoking?07/23/2019How long has it been since you last smoked?1-3 months Problems Problem Type SNOMED Code ICD Code Onset Dates Problem Status W/U Status Risk Notes Problem Chronic obstructive pulmonary disease (40994052) Chronic obstructive pulmonary disease, unspecified (J44.9) ActiveconfirmedProblemChronic respiratory failure (29808138)Chronic respiratory failure with hypoxia (J96.11)ActiveconfirmedProblemDependence on supplemental oxygen (419758773068)Dependence on supplemental oxygen (Z99.81)Activeconfirmed Plan Of Treatment Pending Test Test Name Order Date XR Chest PA and Lateral (Routine CXR) * 09/15/2019 Insurance Providers Payer Name Payer Address Payer Phone Subscriber Number Group Number Insured Name Patient Relationship to Insured Coverage Start Date Coverage End Date [employer] ACCESS PPO PLUS LOCAL PLAN [address] [place] [address] [id number] Gianni Garcia - patient is the insured Medical (General) History Medical History History ICD Code hx of bronchitis hx of PEirregular heart beathtnthyroid problemhx of pneumoniaSurgical History Surgery Date(Month/Year) none in the past year 08/23/2019 Hospitalization History Reason Date(Month/Year) copd exac 07/2019 sob [place], x 1 week 07/2019
--- OUTSIDE RECORDS SUMMARY | 2025-06-07 12:37 | XMS_ITS | Clinical Summary ---
Author Organization [facility] Address [address] [place] [address] Care Team Providers Care Clinical Research Assistant Name Role Phone Forest Childs MD Unavailable Social History Tobacco UseTypesPacks/DayYears UsedDateSmoking Tobacco: Never Assessed CommentsUnknownSex and Gender InformationValueDate RecordedSex Assigned at Xtfsgo6411/10/2019 12:06 AM EDTLegal GplJxtygk94/15/2020 12:26 PM EDTGender EsalyatbAjmqpo71/21/2020 12:06 AM EDTSexual WzvdmlzeqxjJtmskykq29/21/2020 12:06 AM EDT Plan of Treatment Health MaintenanceDue DateLast DoneCommentsAnxiety Jaachldkk89/14/1977Depression Fkowgljvx85/14/1977Hepatitis C Vomyuorlx68/14/1977DTaP,Tdap,Td Vaccine (1 - Tdap)1978Mammogram Oeulvzsxx52/14/1999CT Aytnesglohwo49/14/2004Cologuard (FIT-DNA)03/05/20042563Hisnlmdrkbh38/14/2004Colorectal Cancer Lmvcqskcd92/14/2004 Fecal Occult Blood03/05/20044909Zxokvxhsgcetb35/14/2004Shingrix Vaccine (1 of 2) 2009Pneumococcal Vaccine: 50+ (2 of 2 - PCV)Diabetes Jwfxxwmxu59, 10/06/2019, 10/05/2019, Additional history exists Bone Density Hpdmklojo05/14/2024Lipid Xyprjviiu96Advance Directive Surnifowmv38/01/2025ovid-19 Vaccine (2024- season)2025 Influenza Vaccine (#1)2025RSV Vaccine (1 - 1-dose 75+ series)2034 Insurance Care Teams Team MemberRelationshipSpecialtyStart DateEnd Date Forest Childs MD [address] [place] [address] ReferringPulmonary Disease11/04/19
--- OUTSIDE RECORDS SUMMARY | 2025-06-07 12:37 | XMS_ITS | Encounter Summary ---
Author Organization [facility] HospitalType[id number] [place] [address] Care Team Providers Care Vehicle Washer Name Role Phone ChinmayLouie Ross FRANKLIN Primary Care Provider + [phone] Reason for Visit * ReasonOnset DateCommentsEr Follow-up05/31/2025 Encounter Details DateTypeDepartmentCare Team (Latest Contact Info)Wozdoenokla37/10/2025Telephone [facility] Internal [facility] - Family Medicine [address] [place] [address] Carli Pugh CMA Er Follow-up Social History Tobacco UseTypesPacks/DayYears UsedDateSmoking Tobacco: Every DayCigarettes Smokeless Tobacco: NeverAlcohol UseStandard Drinks/WeekCommentsYes0 (1 standard drink = 0.6 oz pure alcohol)OccasionallyAHC UtilitiesAnswerDate RecordedIn the past 12 months has the [employer], gas, oil, or water [employer] threatened to shut off services in your home?No01/26/2025Social Connection and Isolation Panel AnswerDate RecordedIn a typical week, how many times do you talk on the phone with family, friends, or neighbors?More than three times a week03/21/2025How often do you get together with friends or relatives?More than three times a week 03/21/2025How often do you attend roman catholic or jehovah's witness services?Never03/21/2025Do you belong to any clubs or organizations such as roman catholic groups, unions, fraternal or athletic groups, or school groups?No09/30/2025How often do you attend meetings of the clubs or organizations you belong to?Never03/21/2025re you , , , , never , or living with a partner?Szkyuqo0203/21/2025UDIT-CAnswerDate RecordedQ1: How often do you have a [...] care, and heating?Not hard at all05/28/2024HQ-2AnswerDate RecordedTotal [id number] [facility] [place] of Occupational Health - Occupational Stress Questionnaire AnswerDate RecordedDo you feel stress - tense, restless, nervous, or anxious, or unable to sleep at night because yourmind is troubled all the time - these days? 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 [...] ValueDate RecordedSex Assigned at BirthNot on fileLegal UhfVytrtf21/06/2015 11:21 AM EDTGender IdentityNot on fileSexual OrientationNot on filedocumented as of this encounter Miscellaneous Notes * Telephone Encounter - Carli Pugh CMA - 05/31/2025 8:24 AM EST ED Outreach This documentation is being used for Transition of Care purposes: Yes/No: Yes ED Outreach Date: May 31, 2025 ED Outreach Method: COMMUNICATION METHOD: Telephone ED Outreach Attempt: second ED Outreach Outcome: Left Message Name of ED Facility: [facility] Date of ED Discharge: 05/30/2025 Discharge Diagnosis: COPD exacerbation ED Chief Complaint: Respiratory Problem Current Symptom Status: Medication Changes Reviewed: Medication Questions/Concerns: Follow-up PCP Scheduled: Follow-up Specialist Scheduled: Follow up Testing Scheduled: Patient Contacted Office Prior to ED Visit: Additional Comments: Left message for patient to return call. Second attempt to contact patient. Will wait for patient to contact the office with any follow up needs. documented in this encounter Plan of Treatment DateTypeDepartmentCare Team (Latest Contact Info)Ejopgtcaztz35/10/2026 10:00 AM EDTOffice Visit [facility] [address] [place] [address] Louie Moy DO [address], [place] [address] 03/27/2026 11:00 AM EDTOffice Visit [facility] [address] [place] [address] documented as of this encounter Goals GoalPatient Goal TypeAssociated ProblemsRecent ProgressPatient-Stated?Author home Kajal Mas LSW Note: Evaluation of progress towards goal: had stress test, await results documented as of this encounter Visit Diagnoses Not on filedocumented in this encounter Additional Health Concerns AssessmentNoted TimePHQ-9 Depression Total Score: 9:05 AM EDTA Body Mass Index follow-up plan has been documented for the yntflkg6703/31/2024 4:52 PM EDTdocumented as of this encounter Care Teams Team MemberRelationshipSpecialtyStart DateEnd Date Louie Moy DO [address], [place] [address] PCP - GeneralFamily Kjqdasan98/7/24documented as of this encounter
--- OUTSIDE RECORDS SUMMARY | 2025-06-07 12:37 | XMS_ITS | Clinical Summary ---
Author Organization [employer] tem Address [id number] [address] [place] [address] Care Team Providers Care Geographic Information Scientist Name Role Phone Chinmay Louie Hawkins DO Primary Care Provider + [phone] Allergies No known active allergies Medications MedicationSigDispense QuantityRefillsLast FilledStart DateEnd DateStatus omeprazole (PriLOSEC) 20 mg capsule Take 1 capsule (20 mg total) by mouth every other day.Active Lactobacillus acidophilus (PROBIOTIC ACIDOPHILUS ORAL) Take 1 tablet by mouth in the morning.Active acetaminophen (TYLENOL) 325 mg tablet Take 2 tablets (650 mg total) by mouth every 4 (four) hours as needed (Temperature greater than 38.3 C). 30 tablet 09/27/2021ctive albuterol (PROVENTIL,VENTOLIN) 2.5 mg /3 mL (0.083 %) nebulizer solution Indications:Chronic respiratory failure with hypoxia (CMS-HCC)Inhale 3 mL (2.5 mg total) by nebulization every 6 (six) hours as needed for wheezing. 75 mL ctive levothyroxine (SYNTHROID) 125 MCG tablet Take 1 tablet (125 mcg total) by mouth in the morning.02/25/2024ctive cetirizine (ZyrTEC) 10 mg tablet TAKE 1 TABLET (10 MG TOTAL) BY MOUTH IN THE MORNING 90 tablet ctive baclofen (LIORESAL) 10 mg tablet 05/26/2024ctive dilTIAZem CD (CARDIZEM CD) 120 mg 24 hr capsule Indications:Paroxysmal atrial fibrillation (CMS-HCC)TAKE 1 CAPSULE (120 MG TOAL) BY MOUTH IN THE MORNING 90 capsule 112/30/2024Active izcredugut-qurxacub-atthfureje (BREZTRI AEROSPHERE) 160-9-4.8 mcg/actuation HFA aerosol inhaler Indications:Chronic obstructive pulmonary disease, unspecified COPD type ([facility])Inhale 2 puffs in the morning and 2 puffs before bedtime. 5.9 g 5Active albuterol (PROVENTIL HFA;VENTOLIN HFA) 90 mcg/actuation inhaler Indications:Acute exacerbation of chronic obstructive pulmonary disease (COPD) ([facility])Inhale 2 puffs 4 (four) times a day. 18 g 5Active aspirin 81 mg chewable tablet Chew 1 tablet (81 mg total) and swallow in the morning.Active magnesium oxide (MAGOX) 400 mg tablet Take 2 tablets (800 mg total) by mouth in the morning.Active metoprolol succinate XL (TOPROL XL) 25 mg 24 hr tablet Take 1 tablet (25 mg total) by mouth in the morning. Hold for hr<60 or SBP<110. 30 tablet 5Active nystatin (MYCOSTATIN) cream APPLY CREAM TOPICALLY TO AFFECTED AREA 2-3 TIMES DAILY UNTIL FRVFJJLM50/19/2025 Active atorvastatin (LIPITOR) 40 mg tablet Take 0.5 tablets (20 mg total) by mouth in the morning.5Active metFORMIN (GLUCOPHAGE) 500 mg tablet Take 1 tablet (500 mg total) by mouth in the morning and 1 tablet (500 mg total) in the evening. Take with meals. 180 tablet 5Active FLUoxetine (PROzac) 10 mg capsule Take 1 capsule (10 mg total) by mouth in the morning. 30 capsule 5Active liothyronine (CYTOMEL) 5 MCG tablet Indications:Postoperative hypothyroidismTAKE 1 TABLET BY MOUTH ONCE DAILY IN THE MORNING 30 tablet 5Active predniSONE (DELTASONE) 20 mg tablet Take 2 tablets (40 mg total) by mouth in the morning for 7 days. 14 tablet Expired Active Problems ProblemNoted DateDiagnosed DateMild rwnvtmhbka23/10/2025Type 2 diabetes mellitus without complication, without long-term current use of ynvifrd2203/31/2025Morbid dcqiuem6003/31/2025MI 40.0-44.9, adult03/31/2025Elevated blood pressure reading without diagnosis of kxvohckdoyjc46/10/2025hest pain, unspecified type 01/24/2025Mixed obstructive and restrictive ventilatory xoeyqi6812/28/2024 Exertional ohpgqfq7112/28/2024Peripheral /09/2025Acute cough 12/28/2024Other allergic ukxeoqtq64/09/2025OPD ylmnarjbpwqd04/07/2024Mixed qnscxnbkxkjhuo34/28/2024aroxysmal atrial jsdfxtwoblzk14/12/2024edal edema 4COPD, /08/2024igarette nicotine dependence without fqvxsipgqedx08/13/2023Stress uuinxygesuuo55/13/2022 Overview (01/01/2022): 01/01/22: PVR 29. We discussed [...] Tachycardia with heart rate 100-120 beats per qtjmjv8708/26/2019Carpal tunnel syndrome, unspecified upper limb02/01/2019Trigger gaefpc5202/01/2019Postoperative emkvgumgszpdpd21/13/2019 Resolved Problems ProblemNoted DateDiagnosed DateResolved KlmlVldyzjicdcr27/06/202510/03/2025 Chronic respiratory failure with /5Class 2 severe obesity due to excess calories with serious comorbidity and body mass index (BMI) of38.0 to 38.9 in adult/5Acute on chronic respiratory failure with bfvrhbvgzyd20/08/202207/cute exacerbation of chronic obstructive pulmonary disease (COPD)/cute on chronic respiratory failure with erzxiyk24/5Acute exacerbation of chronic obstructive pulmonary dhjorzg80/14//9141Lhywpbezy77/03/2023 Encounters DateTypeDepartmentCare KzapWngyelvmoox86/10/2025Telephone [facility] - [facility] [address] [place] [address] Carli Pugh CMA Er Follow-up05/30/2025 4:01 PM EST - 05/30/2025 6:22 PM ESTEmergenPremier Health [facility] [address] [place] [phone] Cornell Arboleda MD COPD exacerbation ([facility]) (Primary Dx) Discharge Disposition: Home05/30/20250487Bdhkku54/16/2025Orders Only [facility] [address] [place] [address] Ref Prov, Not In System 04/02/2025Refill [facility] [address] [facility] [address] [place] [phone] Celia Calhoun MD Postoperative zarcofeycgtfwg34/10/2025 9:00 AM EDTOffice Visit [facility] [address] [place] [address] Louie Moy, DO COPD, moderate ([facility]) (Primary Dx); Mixed hyperlipidemia; Encounter for screening mammogram for malignant neoplasm of breast; Type 2 diabetes mellitus without complication, without long-term current use of insulin ([facility]); Mild depression; Morbid obesity ([facility]); BMI 40.0-44.9, adult ([facility]); Paroxysmal atrial fibrillation ([facility]); Elevated blood pressure reading without diagnosis of dmmghakyagnk29/10/2025 Yecuxf0903/29/2025Telephone [facility] [address] [facility] [address] [place] [phone] Nicole Douglas LPN 03/29/2025Telephone [facility] [address] [facility] [address] [place] [phone] Nicole Douglas LPN 03/21/2025 10:20 AM EDTOffice Visit [facility] [address] [facility] [place] [address] Louie Moy, DO Medicare annual wellness visit, subsequent (Primary Dx); Screening for irccmnyfcx66/30/1656Tdujay38/30/2025Telephone [facility] [address] [place] [address] Ronda Granado CMA 03/20/2025Orders Only [facility] [address] [place] [address] External, Scanning Provider 03/17/2025Orders Only [facility] [address] [place] [address] External, Scanning Provider 03/08/2025Refill [facility] [address] [facility] [address] [place] [address] Celia Calhoun MD Postoperative hypothyroidismfrom Last 3 Months Immunizations ImmunizationAdministration DatesNext DuePneumococcal Valqhpgwtmullg39/17/2020 Family History Medical HistoryRelationNameCommentsAsthmaDaughter 1AshleyAsthmaDaughter 2Amanda Heart diseaseFatherOvarian cancerMotherHylaThyroid diseaseSisterRelationName StatusCommentsDaughter 1AshleyDaughter 2AmandaFatherMotherHylaSister Social History Tobacco UseTypesPacks/DayYears UsedDateSmoking Tobacco: Every DayCigarettes Smokeless Tobacco: Never Tobacco Cessation:Ready to Q uit: Not Asked Alcohol UseStandard Drinks/WeekCommentsYes0 (1 standard drink = 0.6 oz pure alcohol)OccasionallyAHC UtilitiesAnswerDate RecordedIn the past 12 months has the [employer], gas, oil, or water [employer] threatened to shut off services in your home?No01/26/2025Social Connection and Isolation PanelAnswerDate RecordedIn a typical week, how many times do you talk on the phone with family, friends, or neighbors?More than three times a week03/21/2025How often do you get together with friends or relatives?More than three times a week03/21/2025How often do you attend gnosticism or sikhism services?Never03/21/2025Do you belong to any clubs or organizations such as gnosticism groups, unions, [employer] or athletic groups, or school groups?No03/21/2025How often do you attend meetings of the clubs or organizations you belong to?Never03/21/2025re you , , , , never , or living with a partner?Sdtfvmr1703/21/2025UDIT-C AnswerDate RecordedQ1: How often do you have a drink containing alcohol?2-4 times a month05/29/2024Q2: How many drinks containing alcohol do you have on a typical day when you are drinking?1 or Q3: How often do you have six or more drinks on one occasion?Never05/29/2024Overall Financial Resource Strain (CARDIA)AnswerDate RecordedHow hard is it for you to pay for the very basics like food, housing, medical care, and heating?Not hard at all05/28/2024HQ-2 AnswerDate RecordedTotal Ikosi686Finjordan valley [facility] [place] of Occupational Health - Occupational Stress QuestionnaireAnswerDate RecordedDo you feel stress - tense, restless, nervous, or anxious, or unable to sleep at night because your mind is troubled all the time - these days?To some fokgkl2503/21/2025Exercise Vital SignAnswerDate RecordedOn average, how many days per week do you engage in moderate to strenuous exercise (like a brisk walk)?0 days03/21/2025On average, how many minutes do you engage in exercise at this level?0 min03/21/2025PRAPARE - TransportationAnswerDate RecordedIn the past 12 months, has lack of transportation kept you from medical appointments or from getting medications?No 01/26/2025In the past 12 months, has lack of transportation kept you from meetings, work, or from getting things needed for daily living?No01/26/2025 Housing InstabilityAnswerDate RecordedAre you worried or concerned that in the next two months you may not have stable housing that you own, rent or stay in as a part of a household?No01/26/2025hildcareAnswerDate RecordedDo problems getting child nutrition assistant make it difficult for you to work or study?No05/29/2024 EmploymentAnswerDate RecordedDo you need help finding a local career center and/or a training program?No05/28/2024Hunger ScreeningAnswerDate RecordedWithin the past 12 months we worried whether our food would run out before we got money to buy more.Never True03/31/2025Within the past 12 months the food we bought just didn't last and we didn't have money to get more.Never True03/31/2025 Purpose - LifeAnswerDate RecordedI have a purpose and direction in my life. Strongly Agree05/29/2024CommentsNoSex and Gender InformationValueDate RecordedSex Assigned at BirthNot on fileLegal GmwXtqemt56/06/2015 11:21 AM EDT Gender IdentityNot on fileSexual OrientationNot on file Last Filed Vital Signs Vital SignReadingTime TakenCommentsBlood Uinudukh488/8305/30/2025 6:15 PM EST Elzia507805/30/2025 6:15 PM KCNAnaicxoeljb13.3 ??C (97.3 ??F)05/30/2025 4:54 PM ESTRespiratory Wglw1802 6:15 PM ESTOxygen Qqrkantuic69%05/30/2025 6:15 PM ESTInhaled Oxygen Concentration--Emerjm319.9 kg (260 lb)05/30/2025 4:05 PM MRUIzgcyj373.3 cm (5' 9 )05/30/2025 4:05 PM ESTBody Mass Index38. 4:05 PM EST Plan of Treatment DateTypeDepartmentCare Team (Latest Contact Info)Ujcsxrbacjm17/10/2026 10:00 AM EDTOffice Visit [facility] [address] [place] [address] Louie Moy, DO [address] [place] [address] 03/27/2026 11:00 AM EDTOffice Visit [facility] [address] [place] [phone] Health MaintenanceDue DateLast DoneCommentsDiabetic Ophthalmology Exam1959 Tobacco Xdlgwaaufi46/14/3440Ugdukfjxl59/14/1999RSV ( or age 60+ yrs) (1 - Risk 60-74 years 1-dose series)2019Adult BMI Follow Up Plan03/31/2025 03/31/2024TaP,Tdap and Td Vaccines (1 - Tdap)06/22/2025Postponed from 1978 (Patient Refused)Influenza Fzgnfdh7209/19/2025Postponed from 02/20/2025 (Patient Refused)Medicare Annual Wellness Visit/Depression Lggxmvaqt83Diabetic Foot ExamFall Risk Vvovmosao50Statin Use: Csmufyfe07Zoster (Shingles) Vaccine (1 of 2)03/31/2026Postponed from 1978 (Patient Refused) Adult BMI Juxngwzyo19Tobacco Cztybhvrp87 Colon Cancer Screening 3 Year Oimcrrpvv80 Goals GoalPatient Goal TypeAssociated ProblemsRecent ProgressPatient-Stated?Author home Kajal Mas LSW Note: Evaluation of progress towards goal: had stress test, await results Medical Devices Not on file Procedures Procedure NamePriorityDate/TimeAssociated DiagnosisCommentsECG 12-LEADSTAT 05/30/2025 4:52 PM EST SARS/FLU A+B/RSV BY NAAT/MOLECULAR (M4RT COLLECTION TUBE)STAT107/31/2024 4:46 PM EST PH, JUJJFBAMJO57/09/2025 4:38 PM EST TROPONIN I, HIGH SENSITIVITY 0 JIXXUEKR88/09/2025 4:21 PM EST LACTATE W/ PTGLRLDAVW07/09/2025 4:21 PM EST TROPONIN I, HIGH SENSITIVITY 0 MMSHWGXL15/09/2025 4:21 PM EST VJCXGSEUTRYUG13/09/2025 4:21 PM EST D-NGTDOPTHX80/09/2025 4:21 PM EST B-TYPE NATRIURETIC UVAWATZQQZY48/09/2025 4:21 PM EST COMPREHENSIVE METABOLIC BHZZHWRTY89/09/2025 4:21 PM EST TRGRWDGQ86/09/2025 4:21 PM EST PROTIME & IMRKRCS3505/30/2025 4:21 PM EST CBC WITH AUTO JVWHIYCZVSKEOVEV60/09/2025 4:21 PM EST XR CHEST 1 ITCICG5305/30/2025 4:12 PM EST MR CERVICAL SPINE W WO WJLBDkatrba39/16/2025 9:40 AM EDTCOLOGUARD NON-[facility]ED[facility] Skjzoaw8502/26/2024 11:55 AM EDT Screen for colon cancer from Last 3 Months or Most Recently Relevant to Health Maintenance Results * ECG 12 lead (05/30/2025 4:52 PM EST)Specimen (Source)Anatomical Location / LateralityCollection Method / VolumeCollection TimeReceived Time12/02/2025 4:52 PM EST Narrative [facility] - 05/30/2025 5:59 PM EST Authorizing ProviderResult TypeResult StatusCornell Arboleda MDECG ORDERABLESFinal ResultPerforming OrganizationAddressCity/State/ZIP CodePhone Number [place] * SARS/FLU A+B/RSV by NAAT/Molecular (M4RT Collection Tube) (05/30/2025 4:46 PM EST)ComponentValueRef RangeTest MethodAnalysis TimePerformed AtPathologist SignatureFLU A KKTVqmdxuwpTwxvczbz88/09/2025 5:35 PM ESTPROBANNING GENERAL HOSPITALFLU B TKWHdomkmcuTjjjegdk21/09/2025 5:35 PM ESTOHIOHEALTH VAN WERT HOSPITALRSV BY FUJDugwydrqXqbszlts31/09/2025 5:35 PM EST [facility]ARS COV 2 BY PCRNot DetectedNot Detected 05/30/2025 5:35 PM ESTBLANCHARD VALLEY HEALTH SYSTEM BLUFFTON HOSPITALpecimen (Source) Anatomical Location / LateralityCollection Method / VolumeCollection Time Received TimeSwabNasopharyngeal structure / Vetpfzp1105/30/2025 4:46 PM EST 05/30/2025 4:57 PM EST Narrative [facility] - 05/30/2025 5:35 PM EST The [...] operators who are performing tests using either [employer]dn[employer]lass[employer] DX or Doximity systems and is limited to laboratories that [...] resolved with specimen repeat. Authorizing ProviderResult TypeResult Thomas Arboleda MDMICROBIOLOGY - GENERAL ORDERABLESFinal ResultPerforming OrganizationAddressCity/State/ZIP Code Phone Number [address] [address], [place] * pH Venous (05/30/2025 4:38 PM EST)ComponentValueRef RangeTest MethodAnalysis TimePerformed AtPathologist SignaturepH, Venous7.3537.320 - 7.5644505/30/2025 4:46 PM ESTBLANCHARD VALLEY HEALTH SYSTEM BLUFFTON HOSPITALpecimen (Source)Anatomical Location / LateralityCollection Method / VolumeCollection TimeReceived Time venousVenous blood / Sxzdedj7405/30/2025 4:38 PM EST05/30/2025 4:46 PM EST Narrative Authorizing ProviderResult TypeResult Thomas Arboleda MDLAB BLOOD ORDERABLES Final ResultPerforming OrganizationAddressCity/State/[facility] CodePhone Number [address] [address], [place] * Troponin I, High Sensitivity 0 Hour (05/30/2025 4:21 PM EST)ComponentValueRef RangeTest MethodAnalysis TimePerformed AtPathologist SignatureTROPONIN I, HIGH SENSITIVITY3<16 ng/L107/31/2024 5:02 PM [facility] Specimen (Source)Anatomical Location / LateralityCollection Method / Volume Collection TimeReceived TimeBloodVenous blood / UnknownVenipuncture / Unknown 05/30/2025 4:21 PM EST05/30/2025 4:26 PM EST Narrative Authorizing ProviderResult TypeResult StatusCornell HYLTON BLOOD ORDERABLES Final ResultPerforming OrganizationAddressCity/State/ZIP CodePhone Number [address] [place] [address], [place] * Lactate w/ Reflex (05/30/2025 4:21 PM EST)ComponentValueRef RangeTest Method Analysis TimePerformed AtPathologist SignatureLACTATE W/REFLEX1.10.4 - 2.0 mmol/L107/31/2024 4:45 PM ESTPROCONTRA COSTA REGIONAL MEDICAL CENTERpecimen (Source)Anatomical Location / LateralityCollection Method / VolumeCollection TimeReceived TimeBloodVenous blood / UnknownVenipuncture / Wbexqfp2505/30/2025 4:21 PM EST05/30/2025 4:26 PM EST Narrative [facility] - 05/30/2025 4:45 PM EST Result did not trigger repeat Lactate, re-order if needed. Authorizing ProviderResult TypeResult StatusCornell HYLTON BLOOD ORDERABLES Final ResultPerforming OrganizationAddressCity/State/ZIP CodePhone Number [address] [place] [address], [place] * (ABNORMAL) CBC auto differential (05/30/2025 4:21 PM EST)ComponentValueRef RangeTest MethodAnalysis TimePerformed AtPathologist JseqfpdecXCU13.1(H)4 - 11 10^9/05/30/2025 4:36 PM ESTPROBANNING GENERAL HOSPITALRBC Count4.56 3.8 - 5.2 10^12/L107/31/2024 4:36 PM [facility] Xmeclypgul13.211.7 - 15.5 g/dL05/30/2025 4:36 PM ESTPROMEDISAN DIMAS COMMUNITY HOSPITALHematocrit41.935 - 47 %05/30/2025 4:36 PM ESTPROMEDISAN DIMAS COMMUNITY HOSPITALMCV9280 - 100 fL05/30/2025 4:36 PM ESTPROMEDISAN DIMAS COMMUNITY HOSPITALMCH31.027 - 34 pg05/30/2025 4:36 PM ESTOHIOHEALTH VAN WERT HOSPITALMCHC33.832 - 36 g/dL05/30/2025 4:36 PM ESTOHIOHEALTH VAN WERT HOSPITALRDW13.811.5 - 15 %05/30/2025 4:36 PM [facility]OSPITALPlatelet Vxncj500054 - 450 10^L107/31/2024 4:36 PM EST [facility]ITALMPV7.37 - 12 fL05/30/2025 4:36 PM EST [facility]OS[facility]ITALNeutrophils %61.3%05/30/2025 4:36 PM EST [facility] HOSPITALLymphocytes %29.0%05/30/2025 4:36 PM EST [facility] HOSPITALMonocytes %8.0%05/30/2025 4:36 PM EST [facility] HOSPITALEosinophils %0.6%05/30/2025 4:36 PM EST [facility]ITALBasophils %1.1%05/30/2025 4:36 PM EST [facility] HOS[facility]ITALNeutrophils Absolute (A)8.0(H)1.5 - 6.6 10^L107/31/2024 4:36 PM ESTPROBANNING GENERAL HOSPITALLymphocytes Absolute3.8(H)1.0 - 3.5 10^05/30/2025 4:36 PM ESTPROJOHNSON COUNTY HOSPITAL HOSPITALMonocytes Absolute1.1(H)0.0 - 0.9 10^05/30/2025 4:36 PM EST [facility]ITALEosinophils Absolute0.10.0 - 0.4 10^9/L 05/30/2025 4:36 PM ESTOHIOHEALTH VAN WERT HOSPITALBasophils Absolute0.1 0.0 - 0.2 10^9/L107/31/2024 4:36 PM [facility] Differential TypeAUTOMATED JLBKGZSENQAG16/09/2025 4:36 PM [facility]ITALpecimen (Source)Anatomical Location / LateralityCollection Method / VolumeCollection TimeReceived TimeBloodVenous blood / Unknown Venipuncture / Iohuyfy1205/30/2025 4:21 PM EST05/30/2025 4:26 PM EST Narrative Authorizing ProviderResult TypeResult StatusCornell HYLTON BLOOD ORDERABLES Final ResultPerforming OrganizationAddressCity/State/ZIP CodePhone Number [address] [address], [place] * (ABNORMAL) APTT (05/30/2025 4:21 PM EST)ComponentValueRef RangeTest Method Analysis TimePerformed AtPathologist PwnpmrickJNGM66(L)26 - 37 sec05/30/2025 4:49 PM [facility] (Source)Anatomical Location / LateralityCollection Method / VolumeCollection TimeReceived Time BloodVenous blood / UnknownVenipuncture / Nkdgvbb6005/30/2025 4:21 PM EST 05/30/2025 4:26 PM EST Narrative Authorizing ProviderResult TypeResult StatusCornell HYLTON BLOOD ORDERABLES Final ResultPerforming OrganizationAddressCity/State/ZIP CodePhone Number [address] [place] [address], [place] * Protime & INR (05/30/2025 4:21 PM EST)ComponentValueRef RangeTest Method Analysis TimePerformed AtPathologist EabmklpbqXSTQXGO21.89.8 - 13.2 sec 05/30/2025 4:49 PM [facility]ITALINR1.00.9 - 1.2 05/30/2025 4:49 PM [facility] (Source) Anatomical Location / LateralityCollection Method / VolumeCollection Time Received TimeBloodVenous blood / UnknownVenipuncture / Jlfwyqf0805/30/2025 4:21 PM EST05/30/2025 4:26 PM EST Narrative Authorizing ProviderResult TypeResult StatusCornell HYLTON BLOOD ORDERABLES Final ResultPerforming OrganizationAddressCity/State/ZIP CodePhone Number [address] [address], [place] * D-Dimer (05/30/2025 4:21 PM EST)ComponentValueRef RangeTest MethodAnalysis TimePerformed AtPathologist SignatureD DIMER<1501 - 255 ng/mL05/30/2025 4:49 PM [facility]PITALComment:Results <255 ng/mL DDU: The presensence of a VTE can safely be excluded with a negative D-Dimer result and Wells score. A negative result doesn't exclude the possibility of DIC. The test should berepeated along with other diagnostic tests if the patient's symptoms persist or worsen.Specimen (Source)Anatomical Location / Laterality Collection Method / VolumeCollection TimeReceived TimeBloodVenous blood / UnknownVenipuncture / Ignlbtz1505/30/2025 4:21 PM EST05/30/2025 4:26 PM EST Narrative Authorizing ProviderResult TypeResult StatusCornell HYLTON BLOOD ORDERABLES Final ResultPerforming OrganizationAddressCity/State/ZIP CodePhone Number [address] [address], * (ABNORMAL) B-type natriuretic peptide (05/30/2025 4:21 PM EST)ComponentValue Ref RangeTest MethodAnalysis TimePerformed AtPathologist AhnqrogkdPXL748(H) <=100 pg/mL05/30/2025 5:07 PM [facility]ITALpecsentara alb[facility]ern (Source)Anatomical Location / LateralityCollection Method / VolumeCollection TimeReceived TimeBloodVenous blood / UnknownVenipuncture / Xmwdlfy0605/30/2025 4:21 PM EST05/30/2025 4:26 PM EST Narrative Authorizing ProviderResult TypeResult StatusCornell Arboleda MDLAB BLOOD ORDERABLES Final ResultPerforming OrganizationAddressty/State/ZIP CodePhone Number [address] [place] [address], * Magnesium (05/30/2025 4:21 PM EST)ComponentValueRef RangeTest MethodAnalysis TimePerformed AtPathologist SignatureMAGNESIUM1.81.8 - 2.6 mg/dL05/30/2025 4:53 PM ESTPROMEDICA FREMONT MEMORIAL HOSPITALSpecimen (Source)Anatomical Location / LateralityCollection Method / VolumeCollection TimeReceived Time BloodVenous blood / UnknownVenipuncture / Xhvmrlc8005/30/2025 4:21 PM EST 05/30/2025 4:26 PM EST Narrative Authorizing ProviderResult TypeResult StatusCornell HYLTON BLOOD ORDERABLES Final ResultPerforming OrganizationAddressCity/State/ZIP CodePhone Number [facility] [address] [place] [address], * (ABNORMAL) Comprehensive metabolic panel (05/30/2025 4:21 PM EST)Component ValueRef RangeTest MethodAnalysis TimePerformed AtPathologist SignatureSODIUM 579145 - 146 mmol/L107/31/2024 4:53 PM [facility] POTASSIUM3.93.5 - 5.0 mmol/L107/31/2024 4:53 PM [facility]OSPITALCHLORIDE10098 - 109 mmol/L107/31/2024 4:53 PM [facility]OSPITALCARBON WUWJSFS61(H)22 - 32 mmol/L107/31/2024 4:53 PM EST [facility] HOSPITALANION GAP85 - 15 mmol/L107/31/2024 4:53 PM [facility]OSPITALBLOOD UREA FNLGNVAO74(H)5 - 27 mg/dL 05/30/2025 4:53 PM [facility]PITALCREATININE0.970.40 - 1.00 mg/dL05/30/2025 4:53 PM [facility]PITALComment: METHOD TRACEABLE TO IDMS JJTXCITETFTMABM262(H)65 - 99 mg/dL05/30/2025 4:53 PM [facility]OSPITALCALCIUM8.1(L)8.5 - 10.5 mg/dL05/30/2025 4:53 PM [facility]OSPITALTOTAL PROTEIN6.96.0 - 8.0 g/dL 05/30/2025 4:53 PM [facility]OSPITALALBUMIN3.33.2 - 5.3 g/dL05/30/2025 4:53 PM ESTOHIOHEALTH VAN WERT HOSPITALALKALINE ENPGEKLOYAP8722 - 130 U/L107/31/2024 4:53 PM [facility]ITALAST11<=41 U/L107/31/2024 4:53 PM [facility] ALT12<=31 U/L107/31/2024 4:53 PM [facility] BILIRUBIN,TOTAL0.40.3 - 1.2 mg/dL05/30/2025 4:53 PM [facility] HOSPITALEGFR Non-Race Iqjyfkvva41>=60 ml/min/1.73sq.m107/31/2024 4:53 PM [facility] HOSPITALComment: eGFR not reported due to non-numeric value for Creatinine. Reported eGFR is based on the CKD-EPI 2020 equation that does not use a race coefficient. Specimen (Source)Anatomical Location / LateralityCollection Method / Volume Collection TimeReceived TimeBloodVenous blood / UnknownVenipuncture / Unknown 05/30/2025 4:21 PM EST05/30/2025 4:26 PM EST Narrative Authorizing ProviderResult TypeResult StatusCornell Arboleda MDLAB BLOOD ORDERABLES Final ResultPerforming OrganizationAddressCity/State/ZIP CodePhone Number [facility] [address] [place] [address], * X-ray chest 1 view (05/30/2025 4:12 [...] StatusCornell Arboleda MDIMG DIAGNOSTIC IMAGING ORDERABLESFinal Result * MR cervical spine with and without contrast (04/06/2025 9:40 AM EDT)Anatomical RegionLateralityModalityMSK, Neuro, Spine, C-spine, Spine CoveraN/AMagnetic Resonance Narrative Authorizing ProviderResult TypeResult StatusNot In System Ref ProvIMG MRI ORDERABLESFinal Result * Cologuard Non-[facility] (02/26/2024 11:55 AM EDT)ComponentValueRef RangeTest MethodAnalysis TimePerformed AtPathologist SignatureEXTERNAL COLOGUARDNegative Dfqwiqsq01/11/2024 1:23 PM EDTEXSemnur Pharmaceuticals (CLIA #:[id number]) Comment: NEGATIVE TEST RESULT. A negative Cologuard result indicates a low likelihood that a colorectal cancer (CRC) or advanced adenoma (adenomatous polyps with more advanced pre-malignant features) ??is present. The chance that a person with a negative Cologuard test has a colorectal cancer is less than 1in 1500 (negative predictive value >99.9%) or has an advanced adenoma is less than 5.3% (negative predictive value 94.7%). These data are based on a prospective cross-sectional study of 10,000individuals at average risk for colorectal cancer who were screened with both Cologuard and colonoscopy. (Evita Dong al, N Engl J Med 2014;370(14):2580-9625) The normal value (reference range) for this assay is negative. COLOGUARD RE-SCREENING RECOMMENDATION: Periodic colorectal cancer screening is an important part ofpreventive healthcare for asymptomatic individuals at average risk for colorectal cancer. ??Following a negative Cologuard result, the [place] Cancer Society and U.S. Multi-Society Task Force screening guidelines recommend a Cologuard re-screening interval of 3 years. References: [place] Cancer Society Guideline for Colorectal Cancer Screening: https://www.cancer.or g/cancer/pocgi-utzvak-wrzxma/anelkhupq-vrtwuadhd-urzfoid/acs-recommendations.htm milvia; Marco Antonio MELLO, Skip CLARK, [place] BOCANEGRA, Colorectal Cancer Screening: Recommendations for Physicians and Patients from the U.S. Multi-Society Task Force on Colorectal Cancer Screening , Am J Gastroenterology 2017; 112:5393-0680. TEST DESCRIPTION: Composite algorithmic analysis of stool DNA-biomarkers with hemoglobin immunoassay. ?? Quantitative values of individual biomarkers are not reportable and are not associated with individual biomarker result reference ranges. Cologuard is intended for colorectal cancer screening ofadults of either sex, 45 years or older, [...] screened with both Cologuard and colonoscopy. (Evita Saleh, N Engl J Med 2014;370(14):7987-6050.) Cologuard may produce a false negative or false positive result (no colorectal cancer or precancerous polyp present at colonoscopy follow up). A negative Cologuard test result does not guarantee the absence of CRC or advanced adenoma (pre-cancer). The current Cologuard screening interval is every 3 years. ([place] Cancer Society and U.S. Multi-Society Task Force). Cologuard performance data in a 10,000 patient pivotal study using colonoscopy as the reference method can be accessed at the following location: www.[facility]/results. Additional description of the Cologuard test process, warnings and precautions can be found at www.cologuard.com. Specimen (Source)Anatomical Location / LateralityCollection Method / Volume Collection TimeReceived TimeStool specimen (specimen)Rectum structure / Unknown 02/26/2024 11:55 AM EDT02/27/2024 7:15 AM EDT Narrative Authorizing ProviderResult TypeResult StatusDennis G Furlong DOLAB ORDERABLES Final ResultPerforming OrganizationAddressCity/State/ZIP CodePhone Number [facility] (CLIA #:[id number]) [address] [place] [address], from Last 3 Months or Most Recently Relevant to Health Maintenance Insurance Advance Directives * Full Code (Latest Code Status on File) Date ActivatedDate InactivatedComments01/24/2025 4:59 PM01/26/2025 3:32 PM * Full Code Date ActivatedDate MpwlnsgfynlNfeoaqlv24/7/2024 9:09 PM05/30/2024 5:34 PM * Full Code Date ActivatedDate InactivatedComments12/26/2021 6:09 PM12/29/2021 3:22 PM * Full Code Date ActivatedDate InactivatedComments09/26/2021 1:46 PM09/27/2021 12:14 PM Care Teams Team MemberRelationshipSpecialtyStart DateEnd Date Louie Moy DO [address] [facility] [place] [address] [facility] Hdvypjub58/7/24
--- OUTSIDE RECORDS SUMMARY | 2025-06-07 12:37 | XMS_ITS | Encounter Summary ---
Author Organization Code Kingdom[employer] tem Address [id number] [address] [place] [address] Care Team Providers Care Contracts Representative Name Role Phone RaghavendraLouie villa Ross FRANKLIN Primary Care Provider [phone] Encounter Details DateTypeDepartmentCare Team (Latest Contact Info)Qaqopacrbkk40/09/2025Travel Social History Tobacco UseTypesPacks/DayYears UsedDateSmoking Tobacco: Every DayCigarettes Smokeless Tobacco: NeverAlcohol UseStandard Drinks/WeekCommentsYes0 (1 standard drink = 0.6 oz pure alcohol)OccasionallyAHC UtilitiesAnswerDate RecordedIn the past 12 months has the [employer], gas, oil, or water [employer] threatened to shut off services in your home?No01/26/2025Social Connection and Isolation Panel AnswerDate RecordedIn a typical week, how many times do you talk on the phone with family, friends, or neighbors?More than three times a week03/21/2025How often do you get together with friends or relatives?More than three times a week 03/21/2025How often do you attend scientologist or taoism services?Never03/21/2025Do you belong to any clubs or organizations such as scientologist groups, unions, fraternal or athletic groups, or school groups?No03/21/2025How often do you attend meetings of the clubs or organizations you belong to?Never03/21/2025re you , , , , never , or living with a partner?Nmarmri1903/21/2025UDIT-CAnswerDate RecordedQ1: How often do you have a [...] care, and heating?Not hard at all05/28/2024HQ-2AnswerDate RecordedTotal Bzhiq853 [facility] of Occupational Health - Occupational Stress Questionnaire AnswerDate RecordedDo you feel stress - tense, restless, nervous, or anxious, or unable to sleep at night because yourmind is troubled all the time - these days? 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 work [...] ValueDate RecordedSex Assigned at BirthNot on fileLegal VjcWofggu83/06/2015 11:21 AM EDTGender IdentityNot on fileSexual OrientationNot on filedocumented as of this encounter Plan of Treatment DateTypeDepartmentCare Team (Latest Contact Info)Jwqpihknnmj23/10/2026 10:00 AM EDTOffice Visit [facility] [address] [place] [address] Louie Moy DO [address], [place] [address] 03/27/2026 11:00 AM EDTOffice Visit [facility] [address] [place] [address] documented as of this encounter Goals GoalPatient Goal TypeAssociated ProblemsRecent ProgressPatient-Stated?Author home Kajal Mas LSW Note: Evaluation of progress towards goal: had stress test, await results documented as of this encounter Visit Diagnoses Not on filedocumented in this encounter Additional Health Concerns InfectionOnset DateLast IndicatedResolved TimeRespiratory Rule-Out05/30/2025 5:35 PM ESTAssessmentNoted TimePHQ-9 Depression Total Score: 9:05 AM EDTA Body Mass Index follow-up plan has been documented for the jddyckc8203/31/2024 4:52 PM EDTdocumented as of this encounter Care Teams Team MemberRelationshipSpecialtyStart DateEnd Date Louie Moy DO [address], [place] [address] PCP - GeneralFamily Kbwzfztf36/7/24documented as of this encounter
--- OUTSIDE RECORDS SUMMARY | 2025-06-08 08:46 | XMS_ITS | Encounter Summary ---
Author Organization [facility] Address [address] [place] [address] Phone Care Team Providers Care Child Nurse Name Role Phone Louie Moy DO Primary Care Provider + [phone] Encounter Details DateTypeDepartmentCare Team (Latest Contact Info)Dbduwzinjhk53/09/2025Scanned Document [facility] [address] [place] [phone] Scanning, Generic Provider Social History Tobacco UseTypesPacks/DayYears UsedDateSmoking Tobacco: Some DaysCigarettes Smokeless Tobacco: NeverAlcohol UseStandard Drinks/WeekCommentsYes0 (1 standard drink = 0.6 oz pure alcohol)once in blue moonCommentsUnknownSex and Gender InformationValueDate RecordedSex Assigned at BirthNot on fileLegal Sex Ucfoix4901/26/2025 2:50 PM EDTGender IdentityNot on fileSexual OrientationNot on filedocumented as of this encounter Plan of Treatment DateTypeDepartmentCare Team (Latest Contact Info)Tmyfywalcnc36/22/2025 12:30 PM ESTOffice Visit [facility] [address] [facility] [address] [place] [address] Marisol Hernandez MD [address] [facility] [address] [place] [address] documented as of this encounter Procedures Procedure NamePriorityDate/TimeAssociated DiagnosisCommentsOUTSIDE IMAGING SCAN 05/30/2025 documented in this encounter Results * OUTSIDE IMAGING SCAN (05/30/2025)Anatomical RegionLateralityModalityOther Narrative 05/30/2025 Ordered by an unspecified provider. Authorizing ProviderResult TypeResult StatusGeneric Provider ScanningOUTSIDE SCANFinal Result documented in this encounter Visit Diagnoses Not on filedocumented in this encounter Additional Health Concerns AssessmentNoted TimeA fall risk assessment has been completed for the patient 02/17/2025 11:34 AM EDTdocumented as of this encounter Care Teams Team MemberRelationshipSpecialtyStart DateEnd Date Louie Moy DO [address] [facility], [place] [address] PCP - GeneralFamily Medicine03/20/25documented as of this encounter
--- OUTSIDE RECORDS SUMMARY | 2025-06-08 08:46 | XMS_ITS | Clinical Summary ---
Author Organization [facility] Address [address] [place] [address] Phone Care Team Providers Care Landscape Crew Leader Name Role Phone Louie Moy Primary Care Provider [phone] Allergies No known active allergies Medications MedicationSigDispense QuantityRefillsLast FilledStart DateEnd DateStatus atorvastatin (Lipitor) 40 mg tablet take 1 tablet by mouth in the morning for 30 days5Active albuterol 90 mcg/actuation inhaler Inhale 2 puffs 4 times a day.5Active dilTIAZem CD (Cardizem CD) 120 mg 24 hr capsule TAKE 1 CAPSULE (120 MG TOAL) BY MOUTH IN THE LRKKDQZ52/30/2024Active aspirin 81 mg chewable tablet Chew and [...] Problems ProblemNoted DateDiagnosed DateEncounter to establish care02/17/2025MI 38.0-38.9,adult02/17/20259090Ufgjkbzmd57/29/2025hronic cough02/17/2025 Rufzijblxfgvvkp58/29/2025hest vqowjwylgo53/29/7222Xhqatimcxun97/06/2025 Exertional pktknbq4112/28/2024Mixed obstructive and restrictive ventilatory defect 12/28/2024Peripheral xryvoslqmmcc74/09/2025Mixed nxaugiycouhooi89/28/2024 Paroxysmal atrial egpdsxwtbdvm26/12/2024Pedal edema4COPD, moderate 4Cigarette nicotine dependence without krgqfjzuxgeq44/13/2023hronic respiratory failure with xwuefno9310/07/2019Tachycardia with heart rate 100-120 beats per qbgycg7908/26/2019Postoperative peqibhppodyuua30/13/2019 Encounters DateTypeDepartmentCare XcpnJdydbucxsby93/09/2025Scanned Document [facility] [address] [place] [phone] Scanning, Generic Provider 03/20/2025 4:15 PM EDTAncillary Procedure [facility] [address] [place] [address] [address] [place] [address] COPD, moderate (Multi); Chronic cough; Cigarette nicotine dependence without ughmscofrvak38/29/2025Travelfrom Last 3 Months Immunizations ImmunizationAdministration DatesNext DuePneumococcal [...] Date RecordedSex Assigned at BirthNot on fileLegal YklGcmtae13/07/2025 2:50 PM EDTGender IdentityNot on fileSexual OrientationNot on file Last Filed Vital Signs Vital SignReadingTime TakenCommentsBlood Eohascpw706/64002/17/2025 11:37 AM EDT Udvno56184/29/2025 11:37 AM EDTTemperature--Respiratory Rate--Oxygen Saturation- -Inhaled Oxygen Concentration--Foybza918 kg (261 lb)02/17/2025 11:35 AM EDT Wrvdrx148.3 cm (5' 9 )02/17/2025 11:35 AM EDTBody Mass Index38.54002/17/2025 11:35 AM EDT Plan of Treatment DateTypeDepartmentCare Team (Latest Contact Info)Tqutzkzfbjd02/22/2025 12:30 PM ESTOffice Visit at [facility] [address] [facility] [address] [place] [address] Marisol Jay MD [address] [facility] [address] [place] [address] Health MaintenanceDue DateLast DoneCommentsCT Rhstutsiyypx1959Colonoscopy 1959FIT1959Lipid Panel1959Medicare Annual Wellness Visit (AWV) 1960 8723Mtbccbgklgfre1959TSH Level1959MMR Vaccines (1 of 1 - Standard series)1960Hepatitis C Zcurzrvij29/14/1977DTaP/Tdap/Td Vaccines (1 - Tdap)03/05/19816088Fdwfhxkwg03/14/1999RSV High Risk: (Elderly (60+) or Population) (1 - Risk 50-74 years 1-dose series)2009Zoster Vaccines (1 of 2)2009Pneumococcal Vaccine (2 of 2 - PCV)Diabetes Cdikdqcdr57Diabetes: Hemoglobin A1CBone Density Scan2024Influenza Vaccine (#1)2025OVID-19 Vaccine (1 - season)2025olorectal Cancer Fcyjpkkxl80/06/2027FIT-DNA (Cologuard)HIB VaccinesAged OutNo longer eligible based on [...] to complete this topic Procedures Procedure NamePriorityDate/TimeAssociated DiagnosisCommentsOUTSIDE IMAGING SCAN 05/30/2025 CT CARDIAC SCORING WO IV SKKELOQWUozvatq94/29/2025 4:13 PM EDT COPD, moderate (Multi) Chronic cough Cigarette nicotine dependence without complication from Last 3 Months Results * OUTSIDE IMAGING SCAN (05/30/2025)Anatomical RegionLateralityModalityOther Narrative 05/30/2025 Ordered by an unspecified provider. Authorizing ProviderResult TypeResult StatusGeneric Provider ScanningOUTSIDE SCANFinal Result * CT cardiac scoring wo IV contrast [...] coronary heart disease events. ??According to the [place] [employer] Foundation Clinical Expert Consensus [...] other non-lipid coronary risk factors. ?? Reference: Bessemer P et al. Circulation. ??2007; 115:402-426 ?? MACRO: None ?? Signed by: Talia Patel 03/22/2025 6:11 AM Dictation workstation: ?? [id number] Narrative 03/22/2025 6:11 AM EDT Interpreted By: Talia Patel, STUDY: CT CARDIAC SCORING WO IV CONTRAST; ??03/20/2025 4:13 pm ?? INDICATION: Signs/Symptoms:hyperlipidemia, chest pain. ?? ,J44.9 Chronic obstructive pulmonary disease, unspecified (Multi),R05.3 Chronic cough,F17.210 Nicotine dependence, cigarettes, uncomplicated ?? COMPARISON: None. ?? ACCESSION NUMBER(S): [id number] ?? ORDERING CLINICIAN: MARISOL JAY ?? TECHNIQUE: [...] dependence, cigarettes, uncomplicated COMPARISON: None. ACCESSION NUMBER(S): [id number] ORDERING CLINICIAN: MARISOL JAY TECHNIQUE: Using prospective [...] coronary heart disease events. According to the [place] [employer] Clinical Expert Consensus [...] modify other non-lipid coronary risk factors. Reference: Bessemer P et al. Circulation. 2007; 115:402-426 MACRO: None Signed by: Talia Patel 03/22/2025 6:11 AM Dictation workstation: [id number] Authorizing ProviderResult TypeResult StatusGeethoralia OTERO CT PROCEDURES Final Result from Last 3 Months Insurance * Guarantor: Elisabet Garcia TypeRelation to PatientDate of BirthPhone Billing AddressPersonal/PluuzpFswk1960 [address] [address] Care Teams Team MemberRelationshipSpecialtyStart DateEnd Date Louie Moy DO [address], [place] [address] PCP - GeneralFamily Medicine03/20/25
--- OUTSIDE RECORDS SUMMARY | 2025-06-08 08:47 | XMS_ITS | Clinical Summary ---
Author Organization [facility] Address [address] [place] [address] Care Team Providers Care Guest Service Representative Name Role Phone Unavailable Primary Care Provider Unavailabl e Social History Tobacco UseTypesPacks/DayYears UsedDateSmoking Tobacco: Never Assessed CommentsUnknownSex and Gender InformationValueDate RecordedSex Assigned at Not on fileLegal VrhXsxuzl50/15/2023 8:00 PM EDTGender IdentityNot on fileSexual OrientationNot on file Last Filed Vital Signs Vital SignReadingTime TakenCommentsBlood Bpytyqjd324/8504 12:00 PM EDT Pulse--Temperature--Respiratory Rate--Oxygen Saturation--Inhaled Oxygen Concentration--Jtqiqo148 kg (244 lb)02/07/2022 12:00 PM TYAPqdqcr193.3 cm (5' 9 )02/07/2022 12:00 PM EDTBody Mass Index36.0308 12:00 PM EDT Plan of Treatment Not on file Insurance
--- OUTSIDE RECORDS SUMMARY | 2025-06-08 08:47 | XMS_ITS | Clinical Summary ---
Author Organization [facility] Address [address] [place] [address] Care Team Providers Care Automatic Coil Machine Operator Name Role Phone No, Pcp POULTRY GRADER Primary Care Provider Unavailabl e Social History Tobacco UseTypesPacks/DayYears UsedDateSmoking Tobacco: Never Assessed CommentsUnknownSex and Gender InformationValueDate RecordedSex Assigned at Not on fileLegal ItcLrewed54/07/2020 2:37 PM ESTGender IdentityNot on fileSexual OrientationNot on file Plan of Treatment Not on file Medical Devices Not on file Care Teams Team MemberRelationshipSpecialtyStart DateEnd Date No, Pcp, POULTRY GRADER N/A Do not use PCP - GeneralFamily Kfmktvsi52/8/20
--- OUTSIDE RECORDS SUMMARY | 2025-06-08 08:47 | XMS_ITS | Encounter Summary ---
Author Organization [employer] tem Address [id number] [address] [place] [address] Care Team Providers Care Nutritional Health Coach Name Role Phone RaghavendraLouie villa Ross FRANKLIN Primary Care Provider [phone] Encounter Details DateTypeDepartmentCare Team (Latest Contact Info)Qsvyivbgqmn81/09/2025Travel Social History Tobacco UseTypesPacks/DayYears UsedDateSmoking Tobacco: Every DayCigarettes Smokeless Tobacco: NeverAlcohol UseStandard Drinks/WeekCommentsYes0 (1 standard drink = 0.6 oz pure alcohol)OccasionallyAHC UtilitiesAnswerDate RecordedIn the past 12 months has the [employer], gas, oil, or water [employer] threatened to shut off services in your home?No01/26/2025Social Connection and Isolation Panel AnswerDate RecordedIn a typical week, how many times do you talk on the phone with family, friends, or neighbors?More than three times a week03/21/2025How often do you get together with friends or relatives?More than three times a week 03/21/2025How often do you attend confucianism or buddhist services?Never03/21/2025Do you belong to any clubs or organizations such as confucianism groups, unions, fraternal or athletic groups, or school groups?No03/21/2025How often do you attend meetings of the clubs or organizations you belong to?Never03/21/2025re you , , , , never , or living with a partner?Suappup0203/21/2025UDIT-CAnswerDate RecordedQ1: How often do you have a [...] care, and heating?Not hard at all05/28/2024HQ-2AnswerDate RecordedTotal Ntyzn859 [facility] of Occupational Health - Occupational Stress Questionnaire AnswerDate RecordedDo you feel stress - tense, restless, nervous, or anxious, or unable to sleep at night because yourmind is troubled all the time - these days? To some wrazuy9503/21/2025Exercise Vital SignAnswerDate RecordedOn average, how many days [...] of a household?No01/26/2025hildcareAnswer Date RecordedDo problems getting children's attendant make it difficult for you to [...] ValueDate RecordedSex Assigned at BirthNot on fileLegal QxxLzftic37/06/2015 11:21 AM EDTGender IdentityNot on fileSexual OrientationNot on filedocumented as of this encounter Plan of Treatment DateTypeDepartmentCare Team (Latest Contact Info)Qxzqdlcgjuw76/10/2026 10:00 AM EDTOffice Visit [facility] [address] [place] [address] Louie Moy DO [address], [place] [address] 03/27/2026 11:00 AM EDTOffice Visit [facility] [address] [place] [address] documented as of this encounter Goals GoalPatient [...] follow-up plan has been documented for the vemjvxk0103/31/2024 4:52 PM EDTdocumented as of this encounter Care Teams Team MemberRelationshipSpecialtyStart DateEnd Date Louie Moy DO [address], [place] [address] PCP - GeneralFamily Ambbuyhc55/7/24documented as of this encounter
--- OUTSIDE RECORDS SUMMARY | 2025-06-08 08:47 | XMS_ITS | Clinical Summary ---
Author Organization [facility] Address [address] [facility], [address] [place] [address] Care Team Providers Care Manager Material Name Role Phone Unavailable Primary Care Provider Unavailabl e Allergies Active AllergyReactionsCriticalityNoted DateCommentsDiltiazemItching,Swelling, FtoxEgbqqs12/22/2020 Pt NOT allergic Medications MedicationSigDispense QuantityRefillsLast FilledStart [...] DateDiagnosed DateChronic respiratory failure with hypoxia 10/07/2019COPD qhueoxakwbyn32/16/2020Acute exacerbation of chronic obstructive pulmonary disease (COPD)08/28/2019Tachycardia with heart rate 100-120 beats per zeubfm7508/26/2019COPD with acute odtucpabdfvt16/14/2020Carpal tunnel syndrome, unspecified upper limb02/01/2019Trigger diirdf6702/01/2019Postoperative xnqmtbilkljuhm67/13/2019 Resolved Problems ProblemNoted DateDiagnosed DateResolved DateInfluenza A03 [...] CANCERSister Social History Tobacco UseTypesPacks/DayYears UsedDateSmoking Tobacco: YjykmzPceciecpaw194 07/1979 - 07/2019Smokeless Tobacco: Never Tobacco Cessation:Ready to Q uit: Yes; Counseling Given: Yes Alcohol UseStandard Drinks/WeekCommentsYes1 (1 standard drink = 0.6 oz pure alcohol)OCCASIONALLYPHQ-2AnswerDate RecordedPHQ-9 Total Diezd9421 CommentsNoSex and Gender InformationValueDate RecordedSex Assigned at BirthNot on fileLegal RvaBdjdug86/06/2019 10:31 AM EDTGender IdentityNot on fileSexual OrientationNot on file Last Filed Vital Signs Vital SignReadingTime TakenCommentsBlood Ghwuuope729/5806 12:30 PM EDT Lhwyv0081 12:30 PM KRJYtivoccpkan48.3 ??C (97.3 ??F)11/22/2020 12:09 PM EDTRespiratory Vncr618011/22/2020 12:40 PM EDTOxygen Kaymlkjebt845%11/22/2020 12:40 PM EDTInhaled Oxygen Concentration--Xcwqdc040.3 kg (230 lb)11/22/2020 12:09 PM DXJKqzlzk435.3 cm (5' 9 )11/22/2020 12:09 PM EDTBody [...]
--- OUTSIDE RECORDS SUMMARY | 2025-06-08 08:47 | XMS_ITS | Clinical Summary ---
Author Organization [employer] tem Address [facility] [id number] [address] [place] [address] Care Team Providers Care Nodulizer Name Role Phone Chinmay Louie Hawkins DO Primary Care Provider + [phone] Allergies No known active allergies Medications MedicationSigDispense [...] MOUTH IN THE MORNING 90 capsule 112/30/2024Active ysftmjvqgh-wvzinyhe-cooyujwgnp (BREZTRI AEROSPHERE) 160-9-4.8 mcg/actuation HFA aerosol inhaler Indications:Chronic obstructive pulmonary disease, unspecified COPD type ([facility])Inhale 2 puffs in the morning and 2 puffs before bedtime. 5.9 g 5Active albuterol (PROVENTIL HFA;VENTOLIN HFA) 90 mcg/actuation inhaler Indications:Acute exacerbation of chronic obstructive pulmonary disease (COPD) ([facility])Inhale 2 puffs 4 (four) times a day. [...] TO AFFECTED AREA 2-3 TIMES DAILY UNTIL CIKJGCMT23/19/2025 Active atorvastatin (LIPITOR) 40 mg tablet Take [...] tablet Expired Active Problems ProblemNoted DateDiagnosed DateMild lxfqpuchnw08/10/2025Type 2 diabetes mellitus without complication, without long-term current use of pibqgyt0703/31/2025Morbid dbhyuwu3703/31/2025MI 40.0-44.9, adult03/31/2025Elevated blood pressure reading without diagnosis of wccajnndpuxl09/10/2025hest pain, unspecified type 01/24/2025Mixed obstructive and restrictive ventilatory vacosl6512/28/2024 Exertional ykugmtt5312/28/2024Peripheral kazakmwckywq58/09/2025Acute cough 12/28/2024Other allergic hzbeohna78/09/2025OPD xoukhoshrggw68/07/2024Mixed cblvkgbensyapu56/28/2024aroxysmal atrial qyjocywhvcxu96/12/2024edal edema 4COPD, orbevpso36/08/2024igarette nicotine dependence without qxqhrwvtpejj50/13/2023Stress /13/2022 Overview (01/01/2022): 01/01/22: PVR 29. We discussed [...] Tachycardia with heart rate 100-120 beats per mfhsqn9008/26/2019Carpal tunnel syndrome, unspecified upper limb02/01/2019Trigger udwsjd4002/01/2019Postoperative badttfdxujspkf12/13/2019 Resolved Problems ProblemNoted DateDiagnosed DateResolved YfjpEqnmjqximxt59/06/202510/03/2025 Chronic respiratory failure with axqkfmr98/5Class 2 severe obesity due to excess calories with serious comorbidity and body mass index (BMI) of38.0 to 38.9 in adult/5Acute on chronic respiratory failure with wlapvwnhvgz52/08/202207/cute exacerbation of chronic obstructive pulmonary disease (COPD)/cute on chronic respiratory failure with /5Acute exacerbation of chronic obstructive pulmonary ymcedwz80/14//8895Hfntncrhi01/03/2023 Encounters DateTypeDepartmentCare TldiTbiwyhyhadm28/10/2025Telephone [facility] - [facility] [address] [place] [address] Carli Pugh CMA Er Follow-up05/30/2025 4:01 PM EST - 05/30/2025 6:22 PM ESTEmergenAk[facility] [address] [place] [phone] Cornell Arboleda MD COPD exacerbation ([facility]) (Primary Dx) Discharge Disposition: Home05/30/20257205Ddnrrv84/16/2025Orders Only [facility] [address] [place] [address] Ref Prov, Not In System 04/02/2025Refill [facility] [address] [facility] [address] [place] [phone] Celia Calhoun MD Postoperative tphkavmsvbpgbu01/10/2025 9:00 AM EDTOffice Visit [facility] [address] [place] [address] Louie Moy, DO COPD, moderate ([facility]) (Primary Dx); Mixed hyperlipidemia; Encounter for screening mammogram for malignant neoplasm of breast; Type 2 diabetes mellitus without complication, without long-term current use of insulin ([facility]); Mild depression; Morbid obesity ([facility]); BMI 40.0-44.9, adult ([facility]); Paroxysmal atrial fibrillation ([facility]); Elevated blood pressure reading without diagnosis of gycehsqkvvdo88/10/2025 Ahwgst6403/29/2025Telephone [facility] [address] [facility] [address] [place] [phone] Nicole Douglas LPN 03/29/2025Telephone [facility] [address] [phone] Nicole Douglas LPN 03/21/2025 10:20 AM EDTOffice Visit [facility] [address] [place] [address] Louie Moy, DO Medicare annual wellness visit, subsequent (Primary Dx); Screening for iozmiesfpm22/30/1765Hajwes07/30/2025Telephone [facility] [address] [place] [address] Ronda Granado CMA 03/20/2025Orders Only [facility] [address] [place] [address] External, Scanning Provider 03/17/2025Orders Only [facility] [address] [place] [address] External, Scanning Provider from Last 3 Months Immunizations ImmunizationAdministration DatesNext DuePneumococcal Kiqpswkylopjyb54/17/2020 Family History Medical HistoryRelationNameCommentsAsthmaDaughter 1AshleyAsthmaDaughter 2Amanda Heart diseaseFatherOvarian cancerMotherHylaThyroid diseaseSisterRelationName StatusCommentsDaughter 1AshleyDaughter 2AmandaFatherMotherHylaSister Social History Tobacco UseTypesPacks/DayYears UsedDateSmoking Tobacco: Every DayCigarettes Smokeless Tobacco: Never Tobacco Cessation:Ready to Q uit: Not Asked Alcohol UseStandard Drinks/WeekCommentsYes0 (1 standard drink = 0.6 oz pure alcohol)OccasionallyAHC UtilitiesAnswerDate RecordedIn the past 12 months has the [employer], gas, oil, or water Private.Me threatened to shut off services in your home?No01/26/2025Social Connection and Isolation PanelAnswerDate RecordedIn a typical week, how many times do you talk on the phone with family, friends, or neighbors?More than three times a week03/21/2025How often do you get together with friends or relatives?More than three times a week03/21/2025How often do you attend worship or jehovah's witness services?Never03/21/2025Do you belong to any clubs or organizations such as worship groups, unions, fraternal or athletic groups, or school groups?No03/21/2025How often do you attend meetings of the clubs or organizations you belong to?Never03/21/2025re you , , , , never , or living with a partner?Qtjexte7403/21/2025UDIT-C AnswerDate RecordedQ1: How often do you have [...] and heating?Not hard at all05/28/2024HQ-2 AnswerDate RecordedTotal Tjado321Finintermountain medical center [place] of Occupational Health - Occupational Stress QuestionnaireAnswerDate RecordedDo you feel stress - tense, restless, nervous, or anxious, or unable to sleep at night because your mind is troubled all the time - these days?To some avcvvw9803/21/2025Exercise Vital SignAnswerDate RecordedOn average, how many days [...] part of a household?No01/26/2025hildcareAnswerDate RecordedDo problems getting director child make it difficult for you to work [...] purpose and direction in my life. Strongly Agree4CommentsNoSex and Gender InformationValueDate RecordedSex Assigned at BirthNot on fileLegal JwuVjpzbj76/06/2015 11:21 AM EDT Gender IdentityNot on fileSexual OrientationNot on file Last Filed Vital Signs Vital SignReadingTime TakenCommentsBlood Zfxdceum163/8305/30/2025 6:15 PM EST Vikuu849805/30/2025 6:15 PM JGVNrpeacpmnqe52.3 ??C (97.3 ??F)05/30/2025 4:54 PM ESTRespiratory Npul034707/31/2024 6:15 PM ESTOxygen Zxajiwdjpk24%05/30/2025 6:15 PM ESTInhaled Oxygen Concentration--Rqorem925.9 kg (260 lb)05/30/2025 4:05 PM THVGewbkk336.3 cm (5' 9 )05/30/2025 4:05 PM ESTBody Mass Index38.412 4:05 PM EST Plan of Treatment DateTypeDepartmentCare Team (Latest Contact Info)Nflzklaopsy49/10/2026 10:00 AM EDTOffice Visit [facility] [address] [place] [phone] Louie Moy, DO [address], [address] [place], [place] [phone] 03/27/2026 11:00 AM EDTOffice Visit [facility] [address] [place] [address] Health MaintenanceDue DateLast DoneCommentsDiabetic Ophthalmology Exam1959 Tobacco Iuelhvgixc94/14/7171Rvbbqteaj61/14/1999RSV ( or age 60+ yrs) (1 - Risk 60-74 years 1-dose series)2019Adult BMI Follow Up Plan03/31/2025 03/31/2024TaP,Tdap and Td Vaccines (1 - Tdap)06/22/2025Postponed from 1978 (Patient Refused)Influenza Aaqhccg4409/19/2025Postponed from 02/20/2025 (Patient Refused)Medicare Annual Wellness Visit/Depression Eeejpfrml38Diabetic Foot ExamFall Risk Apewvgrkl05Statin Use: Vybarzyd54Zoster (Shingles) Vaccine (1 of 2)03/31/2026Postponed from 1978 (Patient Refused) Adult BMI Bqojitefv20Tobacco Xqiuceecg71 Colon Cancer Screening 3 Year Uqmqyirwx69 Goals GoalPatient Goal TypeAssociated ProblemsRecent ProgressPatient-Stated?Author home Kajal Mas LSW Note: Evaluation of progress towards goal: had stress test, await results Medical Devices Not on file Procedures Procedure NamePriorityDate/TimeAssociated DiagnosisCommentsECG 12-LEADSTAT 05/30/2025 4:52 PM EST SARS/FLU A+B/RSV BY NAAT/MOLECULAR (M4RT COLLECTION TUBE)STAT107/31/2024 4:46 PM EST PH, RQIAZPSRVY81/09/2025 4:38 PM EST TROPONIN I, HIGH SENSITIVITY 0 OQUBATIK80/09/2025 4:21 PM EST LACTATE W/ XAFEWISFYZ46/09/2025 4:21 PM EST TROPONIN I, HIGH SENSITIVITY 0 YSXDIVAG40/09/2025 4:21 PM EST IRQQOGCBLVBVY01/09/2025 4:21 PM EST D-ZQVCPTTUF35/09/2025 4:21 PM EST B-TYPE NATRIURETIC CWMTKDYDHAU42/09/2025 4:21 PM EST COMPREHENSIVE METABOLIC FYAGRKZZE26/09/2025 4:21 PM EST WUVPQGUI20/09/2025 4:21 PM EST PROTIME & PLRMOFJ4405/30/2025 4:21 PM EST CBC WITH AUTO NSTYLHVSYLZFEVPG87/09/2025 4:21 PM EST XR CHEST 1 BIFUNW4205/30/2025 4:12 PM EST MR CERVICAL SPINE W WO VDUDFmbhibm32/16/2025 9:40 AM EDTCOLOGUARD NON-[facility]ED[facility] Ysipycn5502/26/2024 11:55 AM EDT Screen for colon cancer from Last 3 Months or Most Recently Relevant to Health Maintenance Results * ECG 12 lead (05/30/2025 4:52 PM EST)Specimen (Source)Anatomical Location / LateralityCollection Method / VolumeCollection TimeReceived Time05/30/2025 4:52 PM EST Narrative [place] - 05/30/2025 5:59 PM EST Authorizing ProviderResult TypeResult StatusPaul R Walker MDECG ORDERABLESFinal ResultPerforming OrganizationAddressCity/State/ZIP CodePhone Number [place] * SARS/FLU A+B/RSV by NAAT/Molecular (M4RT Collection Tube) (05/30/2025 4:46 PM EST)ComponentValueRef RangeTest MethodAnalysis TimePerformed AtPathologist SignatureFLU A FDGEfavinldYrdalfht99/09/2025 5:35 PM ESTPROKEARNEY REGIONAL MEDICAL CENTER HOSPITALFLU B VGTSpovpbxlFgjygxba48/09/2025 5:35 PM ESTCENTERVILLERSV BY QJIYekomcgsDkayhtjp09/09/2025 5:35 PM EST [facility]ARS COV 2 BY PCRNot DetectedNot Detected 05/30/2025 5:35 PM ESTPAULDING COUNTY HOSPITALpecimen (Source) Anatomical Location / LateralityCollection Method / VolumeCollection Time Received TimeSwabNasopharyngeal structure / Weebzyr1205/30/2025 4:46 PM EST 05/30/2025 4:57 PM EST Narrative [place] - 05/30/2025 5:35 PM EST The Xpert [...] operators who are performing tests using either GeneMobilePeak DX or Virtual Event Bags systems and is limited to laboratories that [...] specimen repeat. Authorizing ProviderResult TypeResult Thomas Arboleda [facility] HOSPITALICROBIOLOGY - GENERAL ORDERABLESFinal ResultPerforming OrganizationAddressCity/State/ZIP Code Phone Number [address] [address], [place] * pH Venous (05/30/2025 4:38 PM EST)ComponentValueRef RangeTest MethodAnalysis TimePerformed AtPathologist SignaturepH, Venous7.3537.320 - 7.7342605/30/2025 4:46 PM ESTPROLAKESIDE HOSPITALpecimen (Source)Anatomical Location / LateralityCollection Method / VolumeCollection TimeReceived Time venousVenous blood / Pzolhwg5905/30/2025 4:38 PM EST05/30/2025 4:46 PM EST Narrative Authorizing ProviderResult TypeResult Thomas Arboleda MDKINGMAN COMMUNITY HOSPITAL BLOOD ORDERABLES Final ResultPerforming OrganizationAddressty/State/ZIP CodePhone Number [address] [address], [place] * Troponin I, High Sensitivity 0 Hour (05/30/2025 4:21 PM EST)ComponentValueRef RangeTest MethodAnalysis TimePerformed AtPathologist SignatureTROPONIN I, HIGH SENSITIVITY3<16 ng/L107/31/2024 5:02 PM ESTCENTERVILLE Specimen (Source)Anatomical Location / LateralityCollection Method / Volume Collection TimeReceived TimeBloodVenous blood / UnknownVenipuncture / Unknown 05/30/2025 4:21 PM EST05/30/2025 4:26 PM EST Narrative Authorizing ProviderResult TypeResult StatusCornell Arboleda MDLAB BLOOD ORDERABLES Final ResultPerforming OrganizationAddressty/State/ZIP CodePhone Number [address] [place] [address], [place] * Lactate w/ Reflex (05/30/2025 4:21 PM EST)ComponentValueRef RangeTest Method Analysis TimePerformed AtPathologist SignatureLACTATE W/REFLEX1.10.4 - 2.0 mmol/L107/31/2024 4:45 PM ESTPAULDING COUNTY HOSPITALpecimen (Source)Anatomical Location / LateralityCollection Method / VolumeCollection TimeReceived TimeBloodVenous blood / UnknownVenipuncture / Ctwydfa5105/30/2025 4:21 PM EST05/30/2025 4:26 PM EST Narrative [place] - 05/30/2025 4:45 PM EST Result did not trigger repeat Lactate, re-order if needed. Authorizing ProviderResult TypeResult StatusCornell HYLTON BLOOD ORDERABLES Final ResultPerforming OrganizationAddressCity/State/ZIP CodePhone Number [address] [place] [address], [place] * (ABNORMAL) CBC auto differential (05/30/2025 4:21 PM EST)ComponentValueRef RangeTest MethodAnalysis TimePerformed AtPathologist GgpolmxaaJGQ31.1(H)4 - 11 10^905/30/2025 4:36 PM [facility] COMPANYRBC Count4.56 3.8 - 5.2 10^12/L107/31/2024 4:36 PM [facility] Sugydnbipt74.211.7 - 15.5 g/dL05/30/2025 4:36 PM [facility] COMPANYHematocrit41.935 - 47 %05/30/2025 4:36 PM ESTCENTERVILLEMCV9280 - 100 fL05/30/2025 4:36 PM [facility] COMPANYMCH31.027 - 34 pg05/30/2025 4:36 PM [facility] COMPANYMCHC33.832 - 36 g/dL05/30/2025 4:36 PM [facility] COMPANYRDW13.811.5 - 15 %05/30/2025 4:36 PM ESTCENTERVILLEPlatelet Ludcf916582 - 450 10^L107/31/2024 4:36 PM EST [place]LEMPV7.37 - 12 fL05/30/2025 4:36 PM EST [place]ENT[place]ILLENeutrophils %61.3%05/30/2025 4:36 PM EST [place]LELymphocytes %29.0%05/30/2025 4:36 PM EST [facility] HOSPITALMonocytes %8.0%05/30/2025 4:36 PM EST [facility] HOSPITALEosinophils %0.6%05/30/2025 4:36 PM EST [place]Basophils %1.1%05/30/2025 4:36 PM EST [place]ENeutrophils Absolute (A)8.0(H)1.5 - 6.6 10^05/30/2025 4:36 PM ESTPROGARFIELD MEDICAL CENTERLymphocytes Absolute3.8(H)1.0 - 3.5 10^9L107/31/2024 4:36 PM ESTPROKEARNEY REGIONAL MEDICAL CENTER HOSPITALMonocytes Absolute1.1(H)0.0 - 0.9 10^9/L107/31/2024 4:36 PM EST [facility] HOSPITALEosinophils Absolute0.10.0 - 0.4 10^9/L 05/30/2025 4:36 PM ESTCENTERVILLEBasophils Absolute0.1 0.0 - 0.2 10^9/L107/31/2024 4:36 PM [facility] Differential TypeAUTOMATED SDZWVGXEDFQJ64/09/2025 4:[address] [facility]PITALpecimen (Source)Anatomical Location / LateralityCollection Method / VolumeCollection TimeReceived TimeBloodVenous blood / Unknown Venipuncture / Qzoaqce7105/30/2025 4:21 PM EST05/30/2025 4:26 PM EST Narrative Authorizing ProviderResult TypeResult StatusCornell HYLTON BLOOD ORDERABLES Final ResultPerforming OrganizationAddressty/State/ZIP CodePhone Number [address] [place] [address], * (ABNORMAL) APTT (05/30/2025 4:21 PM EST)ComponentValueRef RangeTest Method Analysis TimePerformed AtPathologist InikylcjrZNRO61(L)26 - 37 sec05/30/2025 4:49 PM ESTMary [facility] (Source)Anatomical Location / LateralityCollection Method / VolumeCollection TimeReceived Time BloodVenous blood / UnknownVenipuncture / Avuxysp2105/30/2025 4:21 PM EST 05/30/2025 4:26 PM EST Narrative Authorizing ProviderResult TypeResult StatusCornell HYLTON BLOOD ORDERABLES Final ResultPerforming OrganizationAddressCity/State/ZIP CodePhone Number [address] [place] [address], [place] * Protime & INR (05/30/2025 4:21 PM EST)ComponentValueRef RangeTest Method Analysis TimePerformed AtPathologist EsajlgqclUTMZLYJ77.89.8 - 13.2 sec 05/30/2025 4:49 PM [facility] COMPANYINR1.00.9 - 1.2 05/30/2025 4:[address] [facility] (Source) Anatomical Location / LateralityCollection Method / VolumeCollection Time Received TimeBloodVenous blood / UnknownVenipuncture / Lxwekyt2405/30/2025 4:21 PM EST05/30/2025 4:26 PM EST Narrative Authorizing ProviderResult TypeResult StatusCornell HYLTON BLOOD ORDERABLES Final ResultPerforming OrganizationAddressty/State/ZIP CodePhone Number [address] [address], [place] * D-Dimer (05/30/2025 4:21 PM EST)ComponentValueRef RangeTest MethodAnalysis TimePerformed AtPathologist SignatureD DIMER<1501 - 255 ng/mL05/30/2025 4:49 PM [facility] COMPANYComment:Results <255 ng/mL DDU: The presensence of a VTE can safely be excluded with a negative D-Dimer result and Wells score. A negative result doesn't exclude the possibility of DIC. The test should berepeated along with other diagnostic tests if the patient's symptoms persist or worsen.Specimen (Source)Anatomical Location / Laterality Collection Method / VolumeCollection TimeReceived TimeBloodVenous blood / UnknownVenipuncture / Mmclxkz2105/30/2025 4:21 PM EST05/30/2025 4:26 PM EST Narrative Authorizing ProviderResult TypeResult StatusCornell HYLTON BLOOD ORDERABLES Final ResultPerforming OrganizationAddressCity/State/ZIP CodePhone Number [address] [address], [place] * (ABNORMAL) B-type natriuretic peptide (05/30/2025 4:21 PM EST)ComponentValue Ref RangeTest MethodAnalysis TimePerformed AtPathologist YksqwqgzsUCO774(H) <=100 pg/mL05/30/2025 5:[address] [facility]ITALpec[facility] (Source)Anatomical Location / LateralityCollection Method / VolumeCollection TimeReceived TimeBloodVenous blood / UnknownVenipuncture / Yzjvxxs5905/30/2025 4:21 PM EST05/30/2025 4:26 PM EST Narrative Authorizing ProviderResult TypeResult StatusCornell HYLTON BLOOD ORDERABLES Final ResultPerforming OrganizationAddressty/State/ZIP CodePhone Number [address] [address], [place] * Magnesium (05/30/2025 4:21 PM EST)ComponentValueRef RangeTest MethodAnalysis TimePerformed AtPathologist SignatureMAGNESIUM1.81.8 - 2.6 mg/dL05/30/2025 4:[address] [facility] (Source)Anatomical Location / LateralityCollection Method / VolumeCollection TimeReceived Time BloodVenous blood / UnknownVenipuncture / Lpftwgn1205/30/2025 4:21 PM EST 05/30/2025 4:26 PM EST Narrative Authorizing ProviderResult TypeResult StatusCornell Arboleda MDLAB BLOOD ORDERABLES Final ResultPerforming OrganizationAddressCity/State/ZIP CodePhone Number [place] [address] [place] [address], * (ABNORMAL) Comprehensive metabolic panel (05/30/2025 4:21 PM EST)Component ValueRef RangeTest MethodAnalysis TimePerformed AtPathologist SignatureSODIUM 530973 - 146 mmol/L107/31/2024 4:53 PM ESTCENTERVILLE POTASSIUM3.93.5 - 5.0 mmol/L107/31/2024 4:53 PM ESTCENTERVILLECHLORIDE10098 - 109 mmol/L107/31/2024 4:53 PM [facility] COMPANYCARBON SIQYRTQ55(H)22 - 32 mmol/L107/31/2024 4:53 PM EST [place]LEANION GAP85 - 15 mmol/L107/31/2024 4:53 PM [facility] COMPANYBLOOD UREA IMIGBBQM87(H)5 - 27 mg/dL 05/30/2025 4:53 PM [facility] COMPANYCREATININE0.970.40 - 1.00 mg/dL05/30/2025 4:53 PM [facility] COMPANYComment: METHOD TRACEABLE TO IDMS ZTPHHIOJHNWJYIP233(H)65 - 99 mg/dL05/30/2025 4:53 PM [facility] COMPANYCALCIUM8.1(L)8.5 - 10.5 mg/dL05/30/2025 4:53 PM [facility] COMPANYTOTAL PROTEIN6.96.0 - 8.0 g/dL 05/30/2025 4:53 PM [facility] COMPANYALBUMIN3.33.2 - 5.3 g/dL05/30/2025 4:53 PM [facility] COMPANYALKALINE NHEWKAPYITL3157 - 130 U/L107/31/2024 4:53 PM ESTCENTERVILLEAST11<=41 U/L107/31/2024 4:53 PM [facility] ALT12<=31 U/L107/31/2024 4:53 PM [facility] BILIRUBIN,TOTAL0.40.3 - 1.2 mg/dL05/30/2025 4:53 PM [facility] COMPANYEGFR Non-Race Vwpoqsokp28>=60 ml/min/1.73sq.m107/31/2024 4:53 PM [facility] COMPANYComment: eGFR not reported due to non-numeric value for Creatinine. Reported eGFR is based on the CKD-EPI 2020 equation that does not use a race coefficient. Specimen (Source)Anatomical Location / LateralityCollection Method / Volume Collection TimeReceived TimeBloodVenous blood / UnknownVenipuncture / Unknown 05/30/2025 4:21 PM EST05/30/2025 4:26 PM EST Narrative Authorizing ProviderResult TypeResult StatusCornell Arboleda MDLAB BLOOD ORDERABLES Final ResultPerforming OrganizationAddressCity/State/[facility] CodePhone Number [place] [address] [place] [address], * X-ray chest 1 view (05/30/2025 4:12 [...] EDT)ComponentValueRef RangeTest MethodAnalysis TimePerformed AtPathologist SignatureEXTERNAL COLOGUARDNegative Kuqgtbmf57/11/2024 1:23 PM EDTEXTrellise (CLIA #:[id number]) Comment: NEGATIVE TEST RESULT. A negative Cologuard [...] (Evita Dong al, N Engl J Med 2014;370(14):5285-9723) The normal value (reference range) for this assay is negative. COLOGUARD RE-SCREENING RECOMMENDATION: Periodic colorectal cancer screening is an important part ofpreventive healthcare for asymptomatic individuals at average risk for colorectal cancer. ??Following a negative Cologuard result, the [place] [employer] Society and U.S. Multi-Society Task Force screening guidelines recommend a Cologuard re-screening interval of 3 years. References: [place] [employer] Guideline for Colorectal Cancer Screening: https://www.cancer.or g/cancer/ulhqp-lzmmus-nrjuuu/naauvkezk-qpcreudqe-uzdgfpv/acs-recommendations.htm milvia; Marco Antonio MELLO, Skip CLARK, Gardenia DiaK, Colorectal Cancer Screening: Recommendations for Physicians and Patients from the U.S. Multi-Society Task Force on Colorectal Cancer Screening , Am J Gastroenterology 2017; 112:6010-8342. TEST DESCRIPTION: Composite algorithmic analysis of stool [...] (Evita Dong al, N Engl J Med 2014;370(14):5861-6020.) Cologuard may produce a false negative or false positive result (no colorectal cancer or precancerous polyp present at colonoscopy follow up). A negative Cologuard test result does not guarantee the absence of CRC or advanced adenoma (pre-cancer). The current Cologuard screening interval is every 3 years. ([place] [employer] Society and U.S. Multi-Society Task Force). Cologuard performance data in a 10,000 patient pivotal study using colonoscopy as the reference method can be accessed at the following location: www.Buy buy tea.[employer]/results. Additional description of the Cologuard test process, warnings and precautions can be found at www.cologmiCabrd.com. Specimen (Source)Anatomical Location / LateralityCollection Method / Volume Collection TimeReceived TimeStool specimen (specimen)Rectum structure / Unknown 02/26/2024 11:55 AM EDT02/27/2024 7:15 AM EDT Narrative Authorizing ProviderResult TypeResult StatusDennis G Furlong DOLAB ORDERABLES Final ResultPerforming OrganizationAddressCity/State/ZIP CodePhone Number [employer] (CLIA #:[id number]) [place] [address], from Last 3 Months or Most Recently Relevant to Health Maintenance Insurance Advance Directives * Full Code (Latest Code Status on File) Date ActivatedDate InactivatedComments01/24/2025 4:59 PM01/26/2025 3:32 PM * Full Code Date ActivatedDate LavrrgstswdRbbtmqws45/7/2024 9:09 PM05/30/2024 5:34 PM * Full Code Date ActivatedDate InactivatedComments12/26/2021 6:09 PM12/29/2021 3:22 PM * Full Code Date ActivatedDate InactivatedComments09/26/2021 1:46 PM09/27/2021 12:14 PM Care Teams Team MemberRelationshipSpecialtyStart DateEnd Date Louie Moy DO [address] [facility], [facility] [place] [address] [facility] - [facility] Kouxkmch95/7/24
--- OUTSIDE RECORDS SUMMARY | 2025-06-08 08:47 | XMS_ITS | Clinical Summary ---
Author Organization [facility] Address [address] [place] [id number] Care Team Providers Care Master Fire Control Technician Name Role Phone Forest Childs MD Unavailable Social History Tobacco UseTypesPacks/DayYears UsedDateSmoking Tobacco: Never Assessed CommentsUnknownSex and Gender InformationValueDate RecordedSex Assigned at Rzhzpr5911/10/2019 12:06 AM EDTLegal HtbPgfueg74/15/2020 12:26 PM EDTGender LgtxnrslKcuago68/21/2020 12:06 AM EDTSexual VyccjxeznllXepqsoeo22/21/2020 12:06 AM EDT Plan of Treatment Health MaintenanceDue DateLast DoneCommentsAnxiety Smjhhxkpj06/14/1977Depression Frlmliovk69/14/1977Hepatitis C Suuimwoap02/14/1977DTaP,Tdap,Td Vaccine (1 - Tdap)1978Mammogram Bsiehlxkl02/14/1999CT Ogcdqjrqtrxy40/14/2004Cologuard (FIT-DNA)03/05/20045172Hmazjjvcqlg78/14/2004Colorectal Cancer Igpuslncy99/14/2004 Fecal Occult Blood03/05/20040957Ddeoxcayaihyh50/14/2004Shingrix Vaccine (1 of 2) 2009Pneumococcal Vaccine: 50+ (2 of 2 - PCV)Diabetes Qjhekyfuy88, 10/06/2019, 10/05/2019, Additional history exists Bone Density Onnybwfnf04/14/2024Lipid Czkwfmzsu44Advance Directive Yqchdaaqqb59/01/2025ovid-19 Vaccine (2024- season)2025 Influenza Vaccine (#1)2025RSV Vaccine (1 - 1-dose 75+ series)2034 Insurance Care Teams Team MemberRelationshipSpecialtyStart DateEnd Date Forets Childs MD [id number] [place] [address] ReferringPulmonary Disease11/04/19
--- OUTSIDE RECORDS SUMMARY | 2025-06-08 08:47 | XMS_ITS | Encounter Summary ---
[id number] [place] [address] Care Team Providers Care Film Recordist Name Role Phone ChinmayLouie Ross FRANKLIN Primary Care Provider + [phone] Reason for Visit * ReasonOnset DateCommentsEr Follow-up05/31/2025 Encounter Details DateTypeDepartmentCare Team (Latest Contact Info)Vvulnzkcazd03/10/2025Telephone [facility] - Family Medicine [address] [place] [address] Carli Pugh CMA Er Follow-up Social History Tobacco UseTypesPacks/DayYears UsedDateSmoking Tobacco: Every DayCigarettes Smokeless Tobacco: NeverAlcohol UseStandard Drinks/WeekCommentsYes0 (1 standard drink = 0.6 oz pure alcohol)OccasionallyAHC UtilitiesAnswerDate RecordedIn the past 12 months has the [employer], gas, oil, or water [employer] threatened to shut off services in your home?No01/26/2025Social Connection and Isolation Panel AnswerDate RecordedIn a typical week, how many times do you talk on the phone with family, friends, or neighbors?More than three times a week03/21/2025How often do you get together with friends or relatives?More than three times a week 03/21/2025How often do you attend baptism or pentecostal services?Never03/21/2025Do you belong to any clubs or organizations such as baptism groups, unions, fraternal or athletic groups, or school groups?No09/30/2025How often do you attend meetings of the clubs or organizations you belong to?Never03/21/2025re you , , , , never , or living with a partner?Krgyaqh8803/21/2025UDIT-CAnswerDate RecordedQ1: How often do you have a [...] care, and heating?Not hard at all05/28/2024HQ-2AnswerDate RecordedTotal Dqgyi733 [facility] of Occupational Health - Occupational Stress Questionnaire AnswerDate RecordedDo you feel stress - tense, restless, nervous, or anxious, or unable to sleep at night because yourmind is troubled all the time - these days? 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 you to work [...] ValueDate RecordedSex Assigned at BirthNot on fileLegal HqoCtajna24/06/2015 11:21 AM EDTGender IdentityNot on fileSexual OrientationNot [...] Outcome: Left Message Name of ED Facility: [facility] Date of ED Discharge: 05/30/2025 Discharge Diagnosis: [...] Plan of Treatment DateTypeDepartmentCare Team (Latest Contact Info)Pqpcycrmpgi30/10/2026 10:00 AM EDTOffice Visit [facility] [address] [place] [address] Louie Moy DO [address], [place] [address] 03/27/2026 11:00 AM EDTOffice Visit [facility] [address] [place] [address] documented as of this encounter Goals GoalPatient Goal TypeAssociated ProblemsRecent ProgressPatient-Stated?Author home Kajal Mas LSW Note: Evaluation of progress towards goal: had stress test, await results documented as of this encounter Visit Diagnoses Not on filedocumented in this encounter Additional Health Concerns AssessmentNoted TimePHQ-9 Depression Total Score: 9:05 AM EDTA Body Mass Index follow-up plan has been documented for the pbujvyy5203/31/2024 4:52 PM EDTdocumented as of this encounter Care Teams Team MemberRelationshipSpecialtyStart DateEnd Date Louie Moy DO [address] [place] [address] PCP - GeneralFamily Muqrkqcq52/7/24documented as of this encounter
[2025-06-08 10:33] LABS: Alanine Aminotransferase 18 U/L (14-59); Albumin Globulin Ratio 0.7; Albumin Level 2.9 g/dL (3.4-5.0); Alkaline Phosphatase 66 U/L (46-116); Anion Gap 7.3; Aspartate Amino Transferase 7 U/L (15-37); Blood Urea Nitrogen 21.0 mg/dL (7.0-18.0); Calcium 8.3 mg/dL (8.5-10.1); Carbon Dioxide 36.9 mmol/L (21.0-32.0); Chloride 106 mmol/L (98-107); Cholesterol 230 mg/dL (<=200); Estimated GFR (African America >60 (>=60 mL/min/1.73m^2); Estimated GFR (Non-African Ame 54 (>=60 mL/min/1.73m^2); Globulin 4.1 g/dL; Glucose 96 mg/dL (74-106); HDL Cholesterol 66 mg/dL (40-60); Potassium 4.2 mmol/L (3.5-5.1); Sodium 146 mmol/L (136-145); Total Protein 7.0 g/dL (6.4-8.2); Triglycerides 112 mg/dL (<=150); VLDL CHOLESTEROL 22.4 mg/dL
== END 2025-06-08 08:45 | disposition home or self-care (01) ==
LOC: LAB 08:44
PROVIDERS: PCP Family Medicine; Visit Provider Internal Medicine Interventional Cardiology
DX: E78.2 Mixed hyperlipidemia (principal); I48.0 Paroxysmal atrial fibrillation; E89.0 Postprocedural hypothyroidism
CPT/HCPCS: 36415; 80053; 80061